=== PATIENT | female | born 1980 | race Caucasian/White ===

== ENCOUNTER → 2017-11-19 11:55 | Outpatient (CLI) | payer MEDICARE, MEDICAID, SELFPAY ==
[2017-11-19 13:03] LABS: INR 3.8 (1.0-3.5); Prothrombin Time 35.4 sec (9.3-10.8)
== END ==
PROVIDERS: PCP Family Medicine; Visit Provider Family Medicine
DX: I82.91 Chronic embolism and thrombosis of unspecified vein (principal); Z79.01 Long term (current) use of anticoagulants
CPT/HCPCS: 36415; 85610

== ENCOUNTER → 2017-12-17 12:27 | Outpatient (CLI) | payer MEDICARE, MEDICAID, SELFPAY ==
[2017-12-17 13:09] LABS: INR 2.9 (1.0-3.5); Prothrombin Time 27.2 sec (9.3-10.8)
== END ==
PROVIDERS: PCP Family Medicine; Visit Provider Family Medicine
DX: I82.91 Chronic embolism and thrombosis of unspecified vein (principal); Z79.01 Long term (current) use of anticoagulants
CPT/HCPCS: 36415; 85610

== ENCOUNTER 2017-12-23 08:49 | Observation (INO) | payer MEDICARE, MEDICAID, SELFPAY ==
[2017-12-23] VITALS (18 sets, daily range): BP systolic 93–164; BP diastolic 52–115; PULSE 47–62; RESP 16–20; TEMP 36.7–38.8; O2SAT 94–100
[2017-12-23] MEDS: Ondansetron 4 MG/2 ML VIAL IVP ×3 (09:44→18:41)
[2017-12-23] MEDS: Normal Saline 1,000 ML 1000 ML IV ×2 (09:44→10:28)
[2017-12-23 09:52] LABS: Abs Immature Grans 0.02 k/cumm (0.0-0.09); Absolute Basophil Count 0.02 k/cumm (0.0-0.2); Absolute Eosinophil Count 0.02 k/cumm (0.0-0.7); Absolute Lymphocyte Count 0.95 k/cumm (1.2-3.4); Absolute Monocyte Count 0.54 k/cumm (0.11-0.7); Basophils % 0.2; Eosinophils % 0.2; HCT 42.2 % (36.0-46.0); HGB 14.6 g/dL (12.0-15.5); Immature Grans % 0.2; Lymphocytes % 8.3; Mean Corp. HGB Concentration 34.6 g/dL (32.0-36.0); Mean Corpuscular Hemoglobin 29.1 pg (27.0-33.0); Mean Corpuscular Volume 84.1 fL (80-95); Monocytes % 4.7; Neutrophils % 86.4; Platelet Count 254 x1000/uL (130-400); RBC 5.02 m/cumm (4.00-5.20); RBC Distribution Width 13.5 % (11.7-14.6); White Blood Cell Count 11.46 k/cumm (4.4-10.8)
[2017-12-23 10:03] LABS: INR 2.4 (1.0-3.5); Prothrombin Time 22.3 sec (9.3-10.8)
[2017-12-23 10:10] LABS: Lipase 140 U/L (73-393)
[2017-12-23 10:13] LABS: ALT 21 U/L (12-78); AST 20 U/L (15-37); Albumin 4.5 g/dL (3.4-5.0); Alkaline Phosphatase 54 U/L (46-116); Anion Gap 6.4 mmol/L (3-11); BUN 8 mg/dL (7-18); Bilirubin, Total 0.6 mg/dL (0.2-1.0); CO2 27.6 mmol/L (21.0-32.0); CREATININE 0.95 mg/dL (0.55-1.02); Calcium 8.7 mg/dL (8.5-10.1); Chloride 104 mmol/L (98-107); Glucose 136 mg/dL (70-100); Potassium 3.6 mmol/L (3.5-5.1); Sodium 138 mmol/L (136-145); Total Protein 7.7 g/dL (6.4-8.2)
--- NOTE | 2017-12-23 10:19 | W.ED.GENAD ---
Discharge Plan Discharge Details Chief Complaint: Nausea/Vomit/Diar Clinical Impression: Intractable nausea and vomiting Reason For Visit: INTRACTABLE NAUSEA AND VOMITING Admit Date/Time: 12/23/17 14:45 Admit Provider: Liliana Ku Attending Provider: Jaya Clarke Primary Care Provider: Jonny Pettit ED Provider: Liliana Ku Disposition Patient Disposition: [facility] INPATIENT Condition: Stable Discharge Data Discharge Date/Time-TO BE ENTERED AT DEPARTURE: 12/23/17 16:05 Medical Decision Making MDM Narrative Medical decision making narrative: 37yo F w/ a h/o daily cannabis use and factor V Leiden on Coumadin, and hysterectomy who presents with vomiting since 2 AM. She has vomited approximately 20 times which is been bile. She states the last time this occurred she was admitted to the ICU for intractable vomiting. She states that she smoked marijuana daily but the last time she did was 2 days ago. She admits to drinking alcohol yesterday but denies any other new medications, recent travel or sick contacts. Patient is sitting up on stretcher with head into vomitus bag retching. Heart rate 47. Afebrile. Oxygen saturation normal. Blood pressure 158/115. Lungs clear to auscultation. Abdomen soft and nontender. Patient stating she will likely need to be admitted for her symptoms. I explained to patient that a trial of fluids, medication and observation would be the recommended initial plan with follow-up on lab results but she states that likely she will not be able to go home. Patient was ordered Zofran on arrival but denies any relief with this. She states that Phenergan usually works for her. We will give a dose of this now and reassess. 12pm --denies any relief with Phenergan. Will order another dose Phenergan and Valium IV. Patient states she does not think her symptoms will improve. Labs reviewed and unremarkable. Will call hospitalist for admission. 1230pm -- Dr. Clarke recommends a trial of zofran, reglan, benadryl and ativan to see if this resolves her symptoms and if not, will admit. Explained that I just gave valium and phenergan and will hold on reglan. Will give zofran and benadryl IV. 1345 -- Pt admits to some relief and nausea but states it is still present and she states she does not feel good to go home. No further vomiting. Will admit patient for intractable nausea. 1435 --discussed with hospitalist -accepts patient for admission. Lab Data Lab Results 12/23/17 12/23/17 Range/Units 09:43 09:43 WBC 11.46 H (4.4-10.8) k/cumm RBC 5.02 (4.00-5.20) m/cumm Hgb 14.6 (12.0-15.5) g/dL Hct 42.2 (36.0-46.0) % MCV 84.1 (80-95) fL MCH 29.1 (27.0-33.0) pg MCHC 34.6 (32.0-36.0) g/dL RDW 13.5 (11.7-14.6) % Plt Count 254 (130-400) x1000/uL MPV 12.0 H (8.0-11.0) fL Immature Gran % 0.2 Neutrophils % 86.4 Lymphocytes % 8.3 Monocytes % 4.7 Eosinophils % 0.2 Basophils % 0.2 Absolute Neutrophils 9.90 H (1.2-6.7) k/cumm Absolute Lymphocytes 0.95 L (1.2-3.4) k/cumm Absolute Monocytes 0.54 (0.11-0.7) k/cumm Absolute Eosinophils 0.02 (0.0-0.7) k/cumm Absolute Basophils 0.02 (0.0-0.2) k/cumm PT 22.3 H (9.3-10.8) sec INR 2.4 (1.0-3.5) HPI - General Adult General Mode of arrival: ambulatory. Date/Time Provider Initiated Documentation: 12/23/17 09:36. Limitations to Documentation: no limitations. Information obtained by: patient. HPI Narrative: Pt is a 37yo F w/ a h/o daily cannabis use for medical purposes, Factor V Leiden on coumadin, and h/o intractable vomiting in past with admission who presents for more than 20 episodes of vomiting since 2 AM this morning. She states she had 2 alcoholic drinks yesterday but states this is not the cause. She denies any other sick contacts or recent travel. States she was last admitted to the ICU for the symptoms 1 year ago. She denies fever, abdominal pain or urinary symptoms. She denies any other new medications. Related Data Home Medications Medication Instructions Recorded Confirmed calcium crb,[id number] 1 ea PO BID tab-cap 11/09/12 12/23/17 [Citracal + Bone Density] Previous Rx's Medication Instructions Recorded inhalational spacing device [Space #1 spacer 05/01/14 Chamber Plus] naloxone [Narcan] 4 mg NS DAILY PRN PRN #2 spray 12/08/16 Allergies Allergy/AdvReac Type Severity Reaction Status Date / Time aripiprazole [From Abilify] Allergy Severe Rash, hives Unverified 12/23/17 09:03 doxycycline Allergy Severe Anaphylaxsi Unverified 12/23/17 09:03 s levetiracetam [From Keppra] Allergy Severe RASH/HIVES Unverified 12/23/17 09:03 sulfamethoxazole Allergy Severe Hives Unverified 12/23/17 09:03 venom-honey bee Allergy Severe unknown Unverified 12/23/17 09:03 Penicillins Allergy Intermediate Skin Rash Unverified 12/23/17 09:03 chlorhexidine Allergy Unknown unknown Unverified 12/23/17 09:03 Sulfa (Sulfonamide Allergy Unverified 12/23/17 09:03 Antibiotics) mold AdvReac Severe Wheezing Unverified 12/23/17 09:03 oxycodone [Oxycodone] AdvReac Severe vomits Unverified 12/23/17 09:03 paroxetine AdvReac Severe Irritability Unverified 12/23/17 09:03 and anger dicloxacillin [Dicloxacillin] AdvReac Mild Nausea Unverified 12/23/17 09:03 gabapentin AdvReac Mild hives Unverified 12/23/17 09:03 verapamil [Verapamil] AdvReac Worsening Unverified 12/23/17 09:03 migraine nuts Allergy Severe Anaphylaxsi Uncoded 12/23/17 09:03 s General Stated Complaint: Nausea/Vomit/Diar RYNE: 3 Review of Systems Constitutional Denies fever(s) and Denies weakness Eyes Patient Denies loss of vision ENT Denies vertigo, Denies dizziness, Denies sore throat and Denies throat swelling Cardiovascular Denies chest pain and Denies dyspnea Respiratory Denies dyspnea Gastrointestinal Denies abdominal pain, Denies diarrhea and Reports vomiting Genitourinary Denies hematuria and Denies dysuria Musculoskeletal Denies arthralgias and Denies joint swelling Neurologic Denies confusion, Denies vertigo, Denies dizziness, Denies loss of vision and Denies weakness Psychiatric Denies confusion Allergic/Immunologic Denies throat swelling PFSH Medical History Intractable vomiting with nausea (Acute) Asthma (Chronic) Chronic anticoagulation (Chronic) Depression (Chronic) Factor V Leiden (Chronic) GERD (gastroesophageal reflux disease) (Chronic) Hypothyroidism (Chronic) Migraine headache (Chronic) Nephrolithiasis (Chronic) Recurrent deep vein thrombosis (DVT) (Chronic) Cellulitis (Resolved) Social History Smoking/Tobacco Use Status: Never Surgical History Abdominal hysterectomy (~2009) Arthroplasty of knee (~1999) Bilateral salpingectomy with oophorectomy (~2008) Cervical Conization/LEEP Cholecystectomy THUMB RECONSTRUCTION Exam Const General: cooperative and in distress (Sitting up on stretcher hanging over vomitus bag. ) moderate Orientation: alert and awake HENMT Head: normal to inspection Mouth: moist mucous membranes Eyes EOM: EOM intact bilaterally Neck Neck: normal visual inspection Resp Effort & Inspection: normal respiratory effort Auscultation: clear to auscultation bilaterally Cardio Rate: regular rate Rhythm: regular rhythm GI Inspection: normal to inspection Palpation: soft and nontender Auscultation: normal bowel sounds Back/Spine/Pelvis Back: No no CVA tenderness Skin General skin exam: no rashes or lesions noted Neuro General: alert and awake Speech: speech normal Extrem General: no edema Course Vital Signs Pulse Oximetry 98 12/23/17 08:51 Temperature 98.4 F 12/23/17 08:54 Pulse 51 L 12/23/17 08:54 Respiratory Rate 18 12/23/17 08:54 Blood Pressure 158/115 H 12/23/17 08:53 Pulse Oximetry 100 12/23/17 10:10 Lab/Test Results Lab/Test Results: Laboratory Tests 12/23/17 12/23/17 09:43 09:43 WBC 11.46 H RBC 5.02 Hgb 14.6 Hct 42.2 MCV 84.1 MCH 29.1 MCHC 34.6 RDW 13.5 Plt Count 254 MPV 12.0 H Immature Gran % 0.2 Neutrophils % 86.4 Lymphocytes % 8.3 Monocytes % 4.7 Eosinophils % 0.2 Basophils % 0.2 Absolute Neutrophils 9.90 H Absolute Lymphocytes 0.95 L Absolute Monocytes 0.54 Absolute Eosinophils 0.02 Absolute Basophils 0.02 PT 22.3 H INR 2.4
--- NOTE | 2017-12-23 10:34 | ED.GENADUL_ITS ---
Discharge Plan Discharge Details Chief Complaint: Nausea/Vomit/Diar Clinical Impression: Intractable nausea and vomiting Reason For Visit: INTRACTABLE NAUSEA AND VOMITING Admit Date/Time: 12/23/17 14:45 Admit Provider: Liliana Ku Attending Provider: Jaya Clarke Primary Care Provider: Jonny Pettit ED Provider: Liliana Ku Disposition Patient Disposition: [facility] INPATIENT Condition: Stable Discharge Data Discharge Date/Time-TO BE ENTERED AT DEPARTURE: 12/23/17 16:05 Medical Decision Making MDM Narrative Medical decision making narrative: 37yo F w/ a h/o daily cannabis use and factor V Leiden on Coumadin, and hysterectomy who presents with vomiting since 2 AM. She has vomited approximately 20 times which is been bile. She states the last time this occurred she was admitted to the ICU for intractable vomiting. She states that she smoked marijuana daily but the last time she did was 2 days ago. She admits to drinking alcohol yesterday but denies any other new medications, recent travel or sick contacts. Patient is sitting up on stretcher with head into vomitus bag retching. Heart rate 47. Afebrile. Oxygen saturation normal. Blood pressure 158/115. Lungs clear to auscultation. Abdomen soft and nontender. Patient stating she will likely need to be admitted for her symptoms. I explained to patient that a trial of fluids, medication and observation would be the recommended initial plan with follow-up on lab results but she states that likely she will not be able to go home. Patient was ordered Zofran on arrival but denies any relief with this. She states that Phenergan usually works for her. We will give a dose of this now and reassess. 12pm --denies any relief with Phenergan. Will order another dose Phenergan and Valium IV. Patient states she does not think her symptoms will improve. Labs reviewed and unremarkable. Will call hospitalist for admission. 1230pm -- Dr. Clarke recommends a trial of zofran, reglan, benadryl and ativan to see if this resolves her symptoms and if not, will admit. Explained that I just gave valium and phenergan and will hold on reglan. Will give zofran and benadryl IV. 1345 -- Pt admits to some relief and nausea but states it is still present and she states she does not feel good to go home. No further vomiting. Will admit patient for intractable nausea. 1435 --discussed with hospitalist -accepts patient for admission. Lab Data Lab Results 12/23/17 12/23/17 Range/Units 09:43 09:43 WBC 11.46 H (4.4-10.8) k/cumm RBC 5.02 (4.00-5.20) m/cumm Hgb 14.6 (12.0-15.5) g/dL Hct 42.2 (36.0-46.0) % MCV 84.1 (80-95) fL MCH 29.1 (27.0-33.0) pg MCHC 34.6 (32.0-36.0) g/dL RDW 13.5 (11.7-14.6) % Plt Count 254 (130-400) x1000/uL MPV 12.0 H (8.0-11.0) fL Immature Gran % 0.2 Neutrophils % 86.4 Lymphocytes % 8.3 Monocytes % 4.7 Eosinophils % 0.2 Basophils % 0.2 Absolute Neutrophils 9.90 H (1.2-6.7) k/cumm Absolute Lymphocytes 0.95 L (1.2-3.4) k/cumm Absolute Monocytes 0.54 (0.11-0.7) k/cumm Absolute Eosinophils 0.02 (0.0-0.7) k/cumm Absolute Basophils 0.02 (0.0-0.2) k/cumm PT 22.3 H (9.3-10.8) sec INR 2.4 (1.0-3.5) HPI - General Adult General Mode of arrival: ambulatory . Date/Time Provider Initiated Documentation: 12/23/17 09:36 . Limitations to Documentation: no limitations . Information obtained by: patient . HPI Narrative: Pt is a 37yo F w/ a h/o daily cannabis use for medical purposes, Factor V Leiden on coumadin, and h/o intractable vomiting in past with admission who presents for more than 20 episodes of vomiting since 2 AM this morning. She states she had 2 alcoholic drinks yesterday but states this is not the cause. She denies any other sick contacts or recent travel. States she was last admitted to the ICU for the symptoms 1 year ago. She denies fever , abdominal pain or urinary symptoms. She denies any other new medications. Related Data Home Medications Medication Instructions Recorded Confirmed calcium crb,[id number] 1 ea PO BID tab-cap 11/09/12 12/23/17 [Citracal + Bone Density] Previous Rx's Medication Instructions Recorded inhalational spacing device [Space #1 spacer 05/01/14 Chamber Plus] naloxone [Narcan] 4 mg NS DAILY PRN PRN #2 spray 12/08/16 Allergies Allergy/AdvReac Type Severity Reaction Status Date / Time aripiprazole [From Abilify] Allergy Severe Rash, hives Unverified 12/23/17 09:03 doxycycline Allergy Severe Anaphylaxsi Unverified 12/23/17 09:03 s levetiracetam [From Keppra] Allergy Severe RASH/HIVES Unverified 12/23/17 09:03 sulfamethoxazole Allergy Severe Hives Unverified 12/23/17 09:03 venom-honey bee Allergy Severe unknown Unverified 12/23/17 09:03 Penicillins Allergy Intermediate Skin Rash Unverified 12/23/17 09:03 chlorhexidine Allergy Unknown unknown Unverified 12/23/17 09:03 Sulfa (Sulfonamide Allergy Unverified 12/23/17 09:03 Antibiotics) mold AdvReac Severe Wheezing Unverified 12/23/17 09:03 oxycodone [Oxycodone] AdvReac Severe vomits Unverified 12/23/17 09:03 paroxetine AdvReac Severe Irritability Unverified 12/23/17 09:03 and anger dicloxacillin [Dicloxacillin] AdvReac Mild Nausea Unverified 12/23/17 09:03 gabapentin AdvReac Mild hives Unverified 12/23/17 09:03 verapamil [Verapamil] AdvReac Worsening Unverified 12/23/17 09:03 migraine nuts Allergy Severe Anaphylaxsi Uncoded 12/23/17 09:03 s General Stated Complaint: Nausea/Vomit/Diar RYNE: 3 Review of Systems Constitutional Denies fever(s) and Denies weakness Eyes Patient Denies loss of vision ENT Denies vertigo, Denies dizziness, Denies sore throat and Denies throat swelling Cardiovascular Denies chest pain and Denies dyspnea Respiratory Denies dyspnea Gastrointestinal Denies abdominal pain, Denies diarrhea and Reports vomiting Genitourinary Denies hematuria and Denies dysuria Musculoskeletal Denies arthralgias and Denies joint swelling Neurologic Denies confusion, Denies vertigo, Denies dizziness, Denies loss of vision and Denies weakness Psychiatric Denies confusion Allergic/Immunologic Denies throat swelling PFSH Medical History Intractable vomiting with nausea (Acute) Asthma (Chronic) Chronic anticoagulation (Chronic) Depression (Chronic) Factor V Leiden (Chronic) GERD (gastroesophageal reflux disease) (Chronic) Hypothyroidism (Chronic) Migraine headache (Chronic) Nephrolithiasis (Chronic) Recurrent deep vein thrombosis (DVT) (Chronic) Cellulitis (Resolved) Social History Smoking/Tobacco Use Status: Never Surgical History Abdominal hysterectomy (~2009) Arthroplasty of knee (~1999) Bilateral salpingectomy with oophorectomy (~2008) Cervical Conization/LEEP Cholecystectomy THUMB RECONSTRUCTION Exam Const General: cooperative and in distress (Sitting up on stretcher hanging over vomitus bag. ) moderate Orientation: alert and awake HENMT Head: normal to inspection Mouth: moist mucous membranes Eyes EOM: EOM intact bilaterally Neck Neck: normal visual inspection Resp Effort & Inspection: normal respiratory effort Auscultation: clear to auscultation bilaterally Cardio Rate: regular rate Rhythm: regular rhythm GI Inspection: normal to inspection Palpation: soft and nontender Auscultation: normal bowel sounds Back/Spine/Pelvis Back: No no CVA tenderness Skin General skin exam: no rashes or lesions noted Neuro General: alert and awake Speech: speech normal Extrem General: no edema Course Vital Signs Pulse Oximetry 98 12/23/17 08:51 Temperature 98.4 F 12/23/17 08:54 Pulse 51 L 12/23/17 08:54 Respiratory Rate 18 12/23/17 08:54 Blood Pressure 158/115 H 12/23/17 08:53 Pulse Oximetry 100 12/23/17 10:10 Lab/Test Results Lab/Test Results: Laboratory Tests 12/23/17 12/23/17 09:43 09:43 WBC 11.46 H RBC 5.02 Hgb 14.6 Hct 42.2 MCV 84.1 MCH 29.1 MCHC 34.6 RDW 13.5 Plt Count 254 MPV 12.0 H Immature Gran % 0.2 Neutrophils % 86.4 Lymphocytes % 8.3 Monocytes % 4.7 Eosinophils % 0.2 Basophils % 0.2 Absolute Neutrophils 9.90 H Absolute Lymphocytes 0.95 L Absolute Monocytes 0.54 Absolute Eosinophils 0.02 Absolute Basophils 0.02 PT 22.3 H INR 2.4
[2017-12-23 11:31] LABS: Bilirubin Negative (Negative); Blood Trace-intact (Negative); Clarity Clear; Glucose Negative (Negative); Ketones 15 mg/dL (Negative); Leukocyte Esterase Negative (Negative); Nitrite Negative (Negative); Urobilinogen 0.2 EU/dL (Up TO 0.2); pH 7.5 (5-8)
[2017-12-23 11:41] LABS: Bacteria Few HPF (Negative); C & S Indicated? No; Casts Negative LPF (Negative); Crystals Negative HPF (Negative); Epithelial Cells Few HPF (Negative); Mucus Negative (Negative); RBC 0-2 (0-2); WBC 0-2 HPF (0-5)
[2017-12-23] MEDS: Normal Saline 1,000 ML 125 ML IV ×2 (12:20→21:21)
[2017-12-23] MEDS: diphenhydrAMINE 50 MG/ML VIAL IVP (12:52)
[2017-12-23] MEDS: FAMOTIDINE 20 MG/50 ML BAG 100 MG IVPB (16:01)
--- NOTE | 2017-12-23 16:35 | W.PM.HP.N ---
Date of service: 12/23/17 Time of Service: 16:35 Assessment and Plan (1) Intractable vomiting with nausea: Current visit: Yes Status: Acute Recurrent bout of intractable nausea and vomiting in 37-year-old woman with a prior medical history of this. Patient appears to have improved symptomatically, with resolution of any retching behavior. She has been sleeping comfortably in the emergency department. Although she continues to complain of diffuse abdominal pain on minimal contact, prolonged auscultation with gently increasing deep palpation of the abdomen both in the upper and lower quadrants produced absolutely no discomfort. Abdominal exam is completely benign. We will maintain patient on IV Benadryl, Ativan, Zofran, and Reglan. Plan is for admission overnight with likely discharge in the morning. (2) Factor V Leiden mutation: Current visit: No Status: Chronic History of factor V Leiden with prior history of recurrent DVTs. Continue anticoagulation with Coumadin, with daily INRs. Current INR appears to be therapeutic. History of Present Illness Chief Complaint: Intractable nausea and vomiting Narrative: 37-year-old woman with a past medical history significant for factor V Leiden with recurrent DVTs, on chronic anticoagulation, as well as prior episodes of intractable nausea and vomiting presents to [facility] emergency department with complaints of nausea and abdominal pain. Ms. carter he reports waking up this morning with ongoing abdominal pain, with concurrent nausea and vomiting. Her workup in the emergency department was fairly unremarkable, and she was administered a combination of Phenergan, Zofran, and a benzodiazepine without effect. Following discussion with the emergency room attending the patient was also administered Benadryl, an additional 4 mg of Zofran, and Reglan, with resolution of symptoms clinically. However at time of exam the patient is still complaining of abdominal pain and nausea. She is referred for admission for further evaluation and treatment Review of Systems Review of Systems All systems reviewed & are unremarkable except as noted in HPI and below PFSH Social History Smoking/Tobacco Use Status: Never Surgical History Abdominal hysterectomy (~2009) Arthroplasty of knee (~1999) Bilateral salpingectomy with oophorectomy (~2008) Cervical Conization/LEEP Cholecystectomy THUMB RECONSTRUCTION Meds Home Medications Medication Instructions Recorded Confirmed Type calcium crb,[id number] 1 ea PO BID tab-cap 11/09/12 12/23/17 History [Citracal + Bone Density] albuterol sulfate 1 amp INHALATION PRN #1 box 04/27/15 12/23/17 Clinic cyproheptadine 4 mg PO HS #90 tab-cap 06/04/16 12/23/17 Clinic levothyroxine [Synthroid] 100 mcg PO QPM #90 tab 10/16/16 12/23/17 Clinic topiramate [Topamax] 2 tab PO HS #180 tab 12/17/16 12/23/17 Clinic albuterol sulfate [Proair Hfa] 2 puff INHALATION Q6H PRN #3 01/23/17 12/23/17 Clinic inhaler MDD 6 puffs fluticasone [Flovent 220mcg] 2 inh INHALATION BID #3 inhaler 01/23/17 12/23/17 Clinic ipratropium-albuterol 3 ml INHALATION Q4H PRN PRN #1 box 01/23/17 12/23/17 Clinic MDD 6 times omeprazole 40 mg PO DAILY PRN #90 cap 07/28/17 12/23/17 Clinic metoclopramide HCl 10 mg IM ONCE #1 ml 08/05/17 Clinic fexofenadine 180 mg PO DAILY #90 tab-cap 08/10/17 12/23/17 Clinic clonazepam 1 mg PO TID #90 tab-cap 08/17/17 12/23/17 Clinic sumatriptan succinate 6 mg SQ As directed #8 pen 09/08/17 12/23/17 Clinic epinephrine [Epipen 2-Nino] 0.3 mg IM ONCE #1 ea 09/17/17 12/23/17 Clinic clotrimazole-betamethasone 0 TOPICAL BID #45 g 09/21/17 Clinic [Lotrisone Cream] warfarin [Coumadin] 0 - 10 mg PO HS PRN 90 Days #100 10/06/17 12/23/17 Clinic tab-cap ketorolac 1 drp OPHTHALMIC QID PRN #5 ml 10/08/17 12/23/17 Clinic triamcinolone acetonide 0 gm TOPICAL BID PRN #60 g 10/16/17 Clinic methylphenidate HCl 20 mg PO TID #84 tab-cap 11/09/17 12/23/17 Clinic ondansetron 4 mg PO Q8H PRN PRN 4 Days #12 11/11/17 12/23/17 Clinic tabef vqaomcyksh-fqyfcclqvsgwa-ywwm 1 tab-cap PO Q6H PRN #30 tab-cap 12/01/17 12/23/17 Clinic hydrocodone-acetaminophen 1 tab-cap PO TID PRN #79 tab-cap 12/01/17 12/23/17 Clinic Allergies Allergy/AdvReac Type Severity Reaction Status Date / Time aripiprazole [From Abilify] Allergy Severe Rash, hives Unverified 12/23/17 09:03 doxycycline Allergy Severe Anaphylaxsi Unverified 12/23/17 09:03 s levetiracetam [From Keppra] Allergy Severe RASH/HIVES Unverified 12/23/17 09:03 sulfamethoxazole Allergy Severe Hives Unverified 12/23/17 09:03 venom-honey bee Allergy Severe unknown Unverified 12/23/17 09:03 Penicillins Allergy Intermediate Skin Rash Unverified 12/23/17 09:03 chlorhexidine Allergy Unknown unknown Unverified 12/23/17 09:03 Sulfa (Sulfonamide Allergy Unverified 12/23/17 09:03 Antibiotics) mold AdvReac Severe Wheezing Unverified 12/23/17 09:03 oxycodone [Oxycodone] AdvReac Severe vomits Unverified 12/23/17 09:03 paroxetine AdvReac Severe Irritability Unverified 12/23/17 09:03 and anger dicloxacillin [Dicloxacillin] AdvReac Mild Nausea Unverified 12/23/17 09:03 gabapentin AdvReac Mild hives Unverified 12/23/17 09:03 verapamil [Verapamil] AdvReac Worsening Unverified 12/23/17 09:03 migraine nuts Allergy Severe Anaphylaxsi Uncoded 12/23/17 09:03 s Exam Const General: cooperative, comfortable and no acute distress Neck Neck: supple and nontender Resp Effort & Inspection: normal respiratory effort Auscultation: clear to auscultation bilaterally Cardio Rate: regular rate Heart Sounds: S1 normal and S2 normal GI Palpation: soft, not firm, no guarding, not rigid and tender (Reported subjective tenderness diffusely) Auscultation: normal bowel sounds Rectal Exam - female: visual inspection normal Extrem General: normal to inspection and no edema Results Labs : 12/23/17 09:43 12/23/17 09:43 Abnormal lab results 12/23/17 12/23/17 12/23/17 Range/Units 09:43 09:43 09:43 WBC 11.46 H (4.4-10.8) k/cumm MPV 12.0 H (8.0-11.0) fL Absolute Neutrophils 9.90 H (1.2-6.7) k/cumm Absolute Lymphocytes 0.95 L (1.2-3.4) k/cumm PT 22.3 H (9.3-10.8) sec Glucose 136 H (70-100) mg/dL Urine Ketones (Negative) mg/dL Urine Blood (Negative) 12/23/17 Range/Units 11:16 WBC (4.4-10.8) k/cumm MPV (8.0-11.0) fL Absolute Neutrophils (1.2-6.7) k/cumm Absolute Lymphocytes (1.2-3.4) k/cumm PT (9.3-10.8) sec Glucose (70-100) mg/dL Urine Ketones 15 H (Negative) mg/dL Urine Blood Trace-intact H (Negative) Diabetes panel 12/23/17 Range/Units 09:43 Sodium 138 (136-145) mmol/L Potassium 3.6 (3.5-5.1) mmol/L Chloride 104 (98-107) mmol/L Carbon Dioxide 27.6 (21.0-32.0) mmol/L BUN 8 (7-18) mg/dL Creatinine 0.95 (0.55-1.02) mg/dL Glucose 136 H (70-100) mg/dL Calcium 8.7 (8.5-10.1) mg/dL AST 20 (15-37) U/L ALT 21 (12-78) U/L Alkaline Phosphatase 54 (46-116) U/L Total Protein 7.7 (6.4-8.2) g/dL Albumin 4.5 (3.4-5.0) g/dL Calcium panel 12/23/17 Range/Units 09:43 Calcium 8.7 (8.5-10.1) mg/dL Albumin 4.5 (3.4-5.0) g/dL Pituitary panel 12/23/17 Range/Units 09:43 Sodium 138 (136-145) mmol/L Potassium 3.6 (3.5-5.1) mmol/L Chloride 104 (98-107) mmol/L Carbon Dioxide 27.6 (21.0-32.0) mmol/L BUN 8 (7-18) mg/dL Creatinine 0.95 (0.55-1.02) mg/dL Glucose 136 H (70-100) mg/dL Calcium 8.7 (8.5-10.1) mg/dL Adrenal panel 12/23/17 Range/Units 09:43 Sodium 138 (136-145) mmol/L Potassium 3.6 (3.5-5.1) mmol/L Chloride 104 (98-107) mmol/L Carbon Dioxide 27.6 (21.0-32.0) mmol/L BUN 8 (7-18) mg/dL Creatinine 0.95 (0.55-1.02) mg/dL Glucose 136 H (70-100) mg/dL Calcium 8.7 (8.5-10.1) mg/dL Total Bilirubin 0.6 (0.2-1.0) mg/dL AST 20 (15-37) U/L ALT 21 (12-78) U/L Alkaline Phosphatase 54 (46-116) U/L Total Protein 7.7 (6.4-8.2) g/dL Albumin 4.5 (3.4-5.0) g/dL Laboratory Tests 12/23/17 12/23/17 12/23/17 09:43 09:43 09:43 WBC 11.46 H RBC 5.02 Hgb 14.6 Hct 42.2 MCV 84.1 MCH 29.1 MCHC 34.6 RDW 13.5 Plt Count 254 MPV 12.0 H Immature Gran % 0.2 Neutrophils % 86.4 Lymphocytes % 8.3 Monocytes % 4.7 Eosinophils % 0.2 Basophils % 0.2 Absolute Neutrophils 9.90 H Absolute Lymphocytes 0.95 L Absolute Monocytes 0.54 Absolute Eosinophils 0.02 Absolute Basophils 0.02 PT 22.3 H INR 2.4 Sodium 138 Potassium 3.6 Chloride 104 Carbon Dioxide 27.6 Anion Gap 6.4 BUN 8 Creatinine 0.95 Estimated GFR/1.73 m2 >= 60.00 Glucose 136 H Calcium 8.7 Total Bilirubin 0.6 AST 20 ALT 21 Alkaline Phosphatase 54 Total Protein 7.7 Albumin 4.5 Lipase Urine Color Urine Clarity Urine pH Ur Specific [place] Urine Protein Urine Ketones Urine Blood Urine Nitrite Urine Bilirubin Urine Urobilinogen Ur Leukocyte Esterase Urine RBC Urine WBC Ur Epithelial Cells Urine Crystals Urine Bacteria Urine Casts Urine Mucus Ur Culture Indicated? Urine Glucose 12/23/17 12/23/17 09:43 11:16 WBC RBC Hgb Hct MCV MCH MCHC RDW Plt Count MPV Immature Gran % Neutrophils % Lymphocytes % Monocytes % Eosinophils % Basophils % Absolute Neutrophils Absolute Lymphocytes Absolute Monocytes Absolute Eosinophils Absolute Basophils PT INR Sodium Potassium Chloride Carbon Dioxide Anion Gap BUN Creatinine Estimated GFR/1.73 m2 Glucose Calcium Total Bilirubin AST ALT Alkaline Phosphatase Total Protein Albumin Lipase 140 Urine Color Yellow Urine Clarity Clear Urine pH 7.5 Ur Specific [place] 1.020 Urine Protein Negative Urine Ketones 15 H Urine Blood Trace-intact H Urine Nitrite Negative Urine Bilirubin Negative Urine Urobilinogen 0.2 Ur Leukocyte Esterase Negative Urine RBC 0-2 Urine WBC 0-2 Ur Epithelial Cells Few Urine Crystals Negative Urine Bacteria Few Urine Casts Negative Urine Mucus Negative Ur Culture Indicated? No Urine Glucose Negative
[2017-12-23] MEDS: Metoclopramide 10 MG/2 ML VIAL IVP (17:33)
[2017-12-23] MEDS: Normal Saline Flush 10 ML SYR IVP ×3 (17:35→22:37)
[2017-12-23] MEDS: diphenhydrAMINE 50 MG/ML VIAL 25 MG IVP (17:38)
--- NOTE | 2017-12-23 18:05 | DI.CT_ITS ---
SYMPTOMS/DIAGNOSIS: ABD PAIN, FEVER CT OF THE ABDOMEN AND PELVIS: Comparison is made with [id number]. Images were performed from the lung bases through the ischial tuberosities after IV and without oral contrast. The appendix is well seen and projects inferiorly and laterally to the base of the cecum to the level of the iliac crest. There is some air within the appendix which does not appear abnormally dilated. There is a question of slight stranding around the appendix. The colon is mostly decompressed with the exception of the ascending colon and rectum. No inflammatory changes are seen. The small bowel is unremarkable. No free air or free fluid is seen. There is a small hiatal hernia. The lung bases are clear. The heart size is normal. The liver shows an area of focal fat in the left lobe. The patient is status post cholecystectomy. No biliary dilatation is seen. The spleen, pancreas, adrenals and kidneys are unremarkable. The patient is status post hysterectomy. The urinary bladder is empty. The ovaries are unremarkable. The aorta is normal in diameter. IMPRESSION: Question of minimal stranding in the mesentery or around the appendix which could indicate early appendicitis. Clinical correlation is recommended.
[2017-12-23] MEDS: Omnipaque 350 MG/ML 100 ML BTL IV (20:19)
[2017-12-23] MEDS: Breeza Beverage 473 ML BTL PO ×2 (20:20→20:21)
[2017-12-23] MEDS: Omnipaque 350 MG/ML 50 ML BTL PO (20:21)
[2017-12-23] MEDS: LORazepam 2 MG/ML VIAL 1 MG IVP (20:49)
[2017-12-23] MEDS: ACETAMINOPHEN 1,000 MG/100 ML BTL 400 MG IVPB (20:53)
[2017-12-23] MEDS: Cyproheptadine 4 MG TAB PO (21:02)
[2017-12-23] MEDS: Levothyroxine 100 MCG TAB PO (21:02)
--- NOTE | 2017-12-23 21:03 | DI.VRAD_ITS ---
EXAM: CT Abdomen and Pelvis With Intravenous Contrast EXAM DATE/TIME: 12/23/2017 6:07 PM CLINICAL HISTORY: 37 years old, female; Signs and symptoms; Other: Abd pain; Fever TECHNIQUE: Axial computed tomography images of the abdomen and pelvis with intravenous contrast. Coronal and sagittal reformatted images were created and reviewed. CONTRAST: 96 ml of omnipaque 350 administered intravenously. COMPARISON: CT - ABD PELVIS WO CONTRAST 07/28/2016 11:16 PM FINDINGS: Lower thorax: Edematous mucosal wall thickening is seen within the lower esophagus at the esophagogastric junction thought likely consistent with some reflux esophagitis. ABDOMEN: Liver: Normal. No mass. Gallbladder and bile ducts: There has been prior cholecystectomy. Pancreas: Normal. No ductal dilation. Spleen: Normal. No splenomegaly. Adrenals: Normal. No mass. Kidneys and ureters: Normal. No hydronephrosis. Stomach and bowel: There is also questionable subtle mucosal edematous thickening of the leone of a decompressed lower ascending colon. The possibility of some lower ascending colitis should be considered. Appendix: See Intraperitoneal Space Finding. PELVIS: Bladder: Unremarkable as visualized. Reproductive: A 1.5 x 1.1 cm left ovarian cyst is identified ABDOMEN and PELVIS: Intraperitoneal space: There is subtle but diffuse mesenteric haziness (joel mesentery) which may indicate mesenteritis. However, the findings appear slightly asymmetrically more pronounced in the right lower quadrant; and therefore, some early acute appendicitis should be considered. No appendiceal dilatation is detected. In fact, acute appendicitis can be a cause of joel mesentery. Bones/joints: Minimal marginal osteophytic spurring is present throughout the lumbar vertebrae. Soft tissues: Unremarkable. Vasculature: Minor atherosclerotic vascular plaquing is present. Lymph nodes: Normal. No enlarged lymph nodes. IMPRESSION: 1. Subtle joel mesentery is identified with slight asymmetrical prominence in the right lower quadrant. This finding could indicate nonspecific mesenteritis; however, because of its asymmetrical appearance in the right lower quadrant, the possibility of acute appendicitis must be considered. 2. Possible subtle mucosal edematous thickening of the loene of the lower ascending colon; may indicate some lower ascending colitis. 3. Findings suggestive of some component of reflux esophagitis. Dictated and Authenticated by: Hai Peralta MD. Ordering:VINCENT BROWN MD
--- NOTE | 2017-12-23 21:13 | NUR.NOTE ---
Nursing Note: This patient took 2 sips of the oral contrast for her CT exam stated that it tasted awful and would not drink any more
[2017-12-23] MEDS: HYDROmorphone 2 MG/ML VIAL 0.5 MG IVP (22:37)
[2017-12-23] MEDS: MetroNIDAZOLE 500 MG/100 ML BAG 100 MG IVPB (22:41)
[2017-12-24] VITALS (15 sets, daily range): BP systolic 100–160; BP diastolic 63–90; PULSE 46–77; RESP 12–18; TEMP 36.4–37.3; O2SAT 95–100
[2017-12-24] MEDS: Normal Saline 500 ML 100 ML IV
[2017-12-24] MEDS: Normal Saline 500 ML 200 ML IV (00:42)
--- NOTE | 2017-12-24 00:48 | SCONE_ITS ---
Date of service: 12/23/17 Time of Service: 20:30 History of Present Illness Chief Complaint: RLQ abdominal pain Narrative: 37-year-old female who presented to the emergency room with less than 24 hours of nausea and vomiting that started fairly abruptly. She has had no sick contacts nor traveled recently. She has tried no new foods or eaten at any restaurants. She reports vomiting approximately 20 times before presentation to the emergency room. Her vomiting improved after presentation to the emergency room she has also had associated abdominal pain which she relates that the right lower quadrant abdominal pain that appears to be nonradiating. She had a similar presentation almost a year ago. She was admitted by medicine for observation antiemetics and fluid resuscitation. A subsequent CT obtained of the abdomen and pelvis had findings suggestive of possible enteritis possible colitis, possible appendicitis. Surgery was consulted to evaluate Consults Consult date: 12/23/17 Requesting physician: Selvin Mendoza Assessment and Plan (1) Right lower quadrant abdominal pain: Start date: 12/23/17 Current visit: Yes Status: Acute 37-year-old female with intractable vomiting nausea, and abdominal pain. Physical findings suggestive of appendicitis, and this is supported by CT imaging of abdomen and pelvis which suggest early inflammatory process. She is also been having fevers after presentation to the emergency room. Given her physical exam findings along with laboratory and radiology findings, I recommended that she have a diagnostic laparoscopy to rule out appendicitis, or confirm enteritis versus colitis. The risks and benefits of surgery have been discussed with her. All her questions were answered her satisfaction consent was obtained to proceed. She does have factor V Leyden factor and is currently anticoagulated on Coumadin, will reverse this with FFP to get her below 2 then perform diagnostic laparoscopy. Review of Systems Constitutional Reports anorexia, Denies fever(s) and Reports malaise Eyes Patient Denies blurry vision, Denies change in vision, Denies diplopia, Reports itchy eyes, Denies loss of vision, Denies other visual disturbances and Denies photophobia ENT Denies vertigo, Denies dizziness, Denies hoarseness, Denies epistaxis and Denies tinnitus Cardiovascular Denies chest pain at rest, Denies chest pain with activity, Denies rapid heart rate, Denies lightheadedness, Denies palpitations and Denies dyspnea Respiratory Denies chest congestion, Denies cough, Denies dyspnea and Denies wheezing Gastrointestinal Reports abdominal pain, Denies melena, Denies change in bowel habits, Denies constipation, Denies heartburn, Denies diarrhea, Denies loose stools, Reports nausea and Reports vomiting Genitourinary Denies dysuria, Denies urinary hesitancy and Denies urinary urgency Musculoskeletal Reports system reviewed and no additional complaints, except as docu and Reports myalgias Neurologic Reports system reviewed and no additional complaints, except as docu, Denies vertigo, Denies dizziness and Denies loss of vision Psychiatric Reports system reviewed and no additional complaints, except as docu Endocrine Denies palpitations Allergic/Immunologic Reports urticaria, Reports itchy eyes and Denies wheezing PFSH Medical History Intractable vomiting with nausea (Acute) Asthma (Chronic) Chronic anticoagulation (Chronic) Depression (Chronic) Factor V Leiden (Chronic) GERD (gastroesophageal reflux disease) (Chronic) Hypothyroidism (Chronic) Migraine headache (Chronic) Nephrolithiasis (Chronic) Recurrent deep vein thrombosis (DVT) (Chronic) Cellulitis (Resolved) Social History Smoking/Tobacco Use Status: Never Surgical History Abdominal hysterectomy (~2009) Arthroplasty of knee (~1999) Bilateral salpingectomy with oophorectomy (~2008) Cervical Conization/LEEP Cholecystectomy THUMB RECONSTRUCTION Exam Const General: cooperative, acute distress mild and ill appearing Nutritional Appearance: average body habitus Orientation: awake and oriented x3 HENMT Head: normal to inspection Ears: hearing grossly normal bilaterally and external ears normal General nose exam: external nose normal Face and sinus: normal facial exam Eyes General: appearance normal, both eyes and all related structures Alignment and Position: alignment normal Periorbital: periorbital findings normal Eyelids: eyelids normal Conjunctivae: conjunctivae normal Sclera: sclerae normal Pupils: PERRL EOM: EOM intact bilaterally Neck Neck: normal visual inspection, trachea midline and supple Chest Chest: normal inspection of the chest Resp Effort & Inspection: normal respiratory effort and not labored Auscultation: no wheezes Cardio Rate: regular rate Rhythm: regular rhythm Pulses: normal peripheral pulses GI Palpation: guarding and tender in the RLQ and with rebound tenderness Back/Spine/Pelvis Back: no CVA tenderness Skin General skin exam: turgor normal Lesions: no lesions Rashes: no rashes Hair: normal Neuro General: awake, oriented x3 and CN's II-XI intact bilaterally Cranial Nerves: EOM intact bilaterally Cognition: normal cognition Extrem General: normal capillary refill and no clubbing, cyanosis or edema Psych Appearance: grossly normal and well kempt Mental Status: mental status grossly normal Attitude: cooperative Judgment: judgment good Results Labs : 12/23/17 09:43 12/23/17 09:43 Abnormal lab results 12/23/17 12/23/17 12/23/17 Range/Units 09:43 09:43 09:43 WBC 11.46 H (4.4-10.8) k/cumm MPV 12.0 H (8.0-11.0) fL Absolute Neutrophils 9.90 H (1.2-6.7) k/cumm Absolute Lymphocytes 0.95 L (1.2-3.4) k/cumm PT 22.3 H (9.3-10.8) sec Glucose 136 H (70-100) mg/dL Urine Ketones (Negative) mg/dL Urine Blood (Negative) 12/23/17 Range/Units 11:16 WBC (4.4-10.8) k/cumm MPV (8.0-11.0) fL Absolute Neutrophils (1.2-6.7) k/cumm Absolute Lymphocytes (1.2-3.4) k/cumm PT (9.3-10.8) sec Glucose (70-100) mg/dL Urine Ketones 15 H (Negative) mg/dL Urine Blood Trace-intact H (Negative) Diabetes panel 12/23/17 Range/Units 09:43 Sodium 138 (136-145) mmol/L Potassium 3.6 (3.5-5.1) mmol/L Chloride 104 (98-107) mmol/L Carbon Dioxide 27.6 (21.0-32.0) mmol/L BUN 8 (7-18) mg/dL Creatinine 0.95 (0.55-1.02) mg/dL Glucose 136 H (70-100) mg/dL Calcium 8.7 (8.5-10.1) mg/dL AST 20 (15-37) U/L ALT 21 (12-78) U/L Alkaline Phosphatase 54 (46-116) U/L Total Protein 7.7 (6.4-8.2) g/dL Albumin 4.5 (3.4-5.0) g/dL Calcium panel 12/23/17 Range/Units 09:43 Calcium 8.7 (8.5-10.1) mg/dL Albumin 4.5 (3.4-5.0) g/dL Pituitary panel 12/23/17 Range/Units 09:43 Sodium 138 (136-145) mmol/L Potassium 3.6 (3.5-5.1) mmol/L Chloride 104 (98-107) mmol/L Carbon Dioxide 27.6 (21.0-32.0) mmol/L BUN 8 (7-18) mg/dL Creatinine 0.95 (0.55-1.02) mg/dL Glucose 136 H (70-100) mg/dL Calcium 8.7 (8.5-10.1) mg/dL Adrenal panel 12/23/17 Range/Units 09:43 Sodium 138 (136-145) mmol/L Potassium 3.6 (3.5-5.1) mmol/L Chloride 104 (98-107) mmol/L Carbon Dioxide 27.6 (21.0-32.0) mmol/L BUN 8 (7-18) mg/dL Creatinine 0.95 (0.55-1.02) mg/dL Glucose 136 H (70-100) mg/dL Calcium 8.7 (8.5-10.1) mg/dL Total Bilirubin 0.6 (0.2-1.0) mg/dL AST 20 (15-37) U/L ALT 21 (12-78) U/L Alkaline Phosphatase 54 (46-116) U/L Total Protein 7.7 (6.4-8.2) g/dL Albumin 4.5 (3.4-5.0) g/dL Laboratory Tests 12/23/17 12/23/17 12/23/17 09:43 09:43 09:43 WBC 11.46 H RBC 5.02 Hgb 14.6 Hct 42.2 MCV 84.1 MCH 29.1 MCHC 34.6 RDW 13.5 Plt Count 254 MPV 12.0 H Immature Gran % 0.2 Neutrophils % 86.4 Lymphocytes % 8.3 Monocytes % 4.7 Eosinophils % 0.2 Basophils % 0.2 Absolute Neutrophils 9.90 H Absolute Lymphocytes 0.95 L Absolute Monocytes 0.54 Absolute Eosinophils 0.02 Absolute Basophils 0.02 PT 22.3 H INR 2.4 Sodium 138 Potassium 3.6 Chloride 104 Carbon Dioxide 27.6 Anion Gap 6.4 BUN 8 Creatinine 0.95 Estimated GFR/1.73 m2 >= 60.00 Glucose 136 H Calcium 8.7 Total Bilirubin 0.6 AST 20 ALT 21 Alkaline Phosphatase 54 Total Protein 7.7 Albumin 4.5 Lipase Urine Color Urine Clarity Urine pH Ur Specific [place] Urine Protein Urine Ketones Urine Blood Urine Nitrite Urine Bilirubin Urine Urobilinogen Ur Leukocyte Esterase Urine RBC Urine WBC Ur Epithelial Cells Urine Crystals Urine Bacteria Urine Casts Urine Mucus Ur Culture Indicated? Urine Glucose Patient ABO/Rh Antibody Screen 12/23/17 12/23/17 12/23/17 09:43 11:16 22:04 WBC RBC Hgb Hct MCV MCH MCHC RDW Plt Count MPV Immature Gran % Neutrophils % Lymphocytes % Monocytes % Eosinophils % Basophils % Absolute Neutrophils Absolute Lymphocytes Absolute Monocytes Absolute Eosinophils Absolute Basophils PT INR Sodium Potassium Chloride Carbon Dioxide Anion Gap BUN Creatinine Estimated GFR/1.73 m2 Glucose Calcium Total Bilirubin AST ALT Alkaline Phosphatase Total Protein Albumin Lipase 140 Urine Color Yellow Urine Clarity Clear Urine pH 7.5 Ur Specific [place] 1.020 Urine Protein Negative Urine Ketones 15 H Urine Blood Trace-intact H Urine Nitrite Negative Urine Bilirubin Negative Urine Urobilinogen 0.2 Ur Leukocyte Esterase Negative Urine RBC 0-2 Urine WBC 0-2 Ur Epithelial Cells Few Urine Crystals Negative Urine Bacteria Few Urine Casts Negative Urine Mucus Negative Ur Culture Indicated? No Urine Glucose Negative Patient ABO/Rh AB Positive Antibody Screen Negative 12/23/17 22:11 WBC RBC Hgb Hct MCV MCH MCHC RDW Plt Count MPV Immature Gran % Neutrophils % Lymphocytes % Monocytes % Eosinophils % Basophils % Absolute Neutrophils Absolute Lymphocytes Absolute Monocytes Absolute Eosinophils Absolute Basophils PT INR Sodium Potassium Chloride Carbon Dioxide Anion Gap BUN Creatinine Estimated GFR/1.73 m2 Glucose Calcium Total Bilirubin AST ALT Alkaline Phosphatase Total Protein Albumin Lipase Urine Color Urine Clarity Urine pH Ur Specific [place] Urine Protein Urine Ketones Urine Blood Urine Nitrite Urine Bilirubin Urine Urobilinogen Ur Leukocyte Esterase Urine RBC Urine WBC Ur Epithelial Cells Urine Crystals Urine Bacteria Urine Casts Urine Mucus Ur Culture Indicated? Urine Glucose Patient ABO/Rh Cancelled Antibody Screen Imaging Abdomen CT scan report/results: report reviewed and image reviewed CT scan - pelvis: report reviewed and image reviewed
[2017-12-24] MEDS: Normal Saline Flush 10 ML SYR IVP ×8 (00:59→17:49)
[2017-12-24] MEDS: ACETAMINOPHEN 1,000 MG/100 ML BTL 400 MG IVPB ×4 (02:03→20:37)
[2017-12-24] MEDS: Lactated Ringers 1,000 ML 80 ML IV (02:23)
[2017-12-24] MEDS: Lidocaine 1% Pres-Free 5 ML VIAL 10 ML (03:10)
--- NOTE | 2017-12-24 03:44 | APP_PTH ---
PATIENT: Suzie Parsons LOC: U#:[id number] AGE/SX: 37/F ROOM: RE12/23/[address]: Jaya Clarke : 1980 BED: A DIS: 12/25/2017 SPEC #: [id number] RECD: 12/24/17 12:54 STATUS: KERON REQ #: [id number] CELINA: 12/24/17 03:[address]: Jaya Clarke DEPT: Surgical Specimen RECD BY: Kalie Lincoln ENTERED: 12/24/17 12:56 SP TYPE: Appendix OTHR DR: Liliana Ku MD Tissues: 1 - APPENDIX NOT INCIDENTAL 2 - OVARY BIOPSY Procedures: GROSS AND MICRO LEVEL 3 Comments: [id number]
--- NOTE | 2017-12-24 04:19 | ROE_ITS ---
Date of service: 12/24/17 Time of Service: 04:05 Operative Note Date of procedure: 12/24/17 Pre-op diagnosis: RLQ abdominal pain Post-op diagnosis: other (Ruptured fallopian cyst, RLQ abdominal pain) Procedure: Diagnostic Laparoscopy Laparoscopic excision right fallopian tube remnant Laparoscopic Appendectomy Surgeon: Nic Veliz Timber Harvester Operator: Huber Samuel Anesthesia: GETA (SERGIO Theodore Chang, ASA 3E Mallampati class II; local: 1% lidocaine mixed with 0.5% Marcaine with epinephrine) Estimated blood loss (mL): 10 Pathology: other (1. Appendix 2. Fallopian tube remnant, right) Complications: None Patient was transported to: PACU Patient's condition: stable Indications: 37-year-old female presenting to the emergency room with less than 24 hours of sudden onset abdominal pain, nausea, vomiting. Pain was localized to right lower quadrant progressively worsening. She had intractable vomiting with over 20 bouts of emesis prior to her presentation to the emergency room her nausea and vomiting was brought under control with antiemetics, and her pain improved. CT of the abdomen and pelvis showed question of mesenteric subtle inflammation questioning appendicitis versus enteritis versus colitis. Surgery was consulted for evaluation. Given her diagnostic findings and physical examination with rebound tenderness the right lower quadrant, along with new onset of fevers it was recommended that she have a diagnostic laparoscopy possible appendectomy. The procedure was reviewed with her the risks discussed, all her questions were answered to her satisfaction Findings: In examining the pelvis and lower right quadrant of the abdomen, the appendix was identified. It did look distended but not overly injected. It was subsequently removed. Note was also made of a fallopian tube remnant attached to the right ovary. This appeared almost ischemic with a dark purple- red color there is noted made of a small cyst on this and possibly a remnant of a ruptured cyst the area around it slightly erythematous. This was most likely the etiology of her sudden onset of pain ruptured cyst which can mimic appendicitis. The remnant fallopian tube was subsequently removed and sent for pathology along with the appendix. Procedure Description: Patient was brought to the preanesthesia staging area her identification was confirmed consent signed. She was then brought to the operating room positioned supine. All bony prominences were padded. Her left arm was tucked in her right arm extended 90?. Sequential compression devices were placed to bilateral lower extremities prior to induction of anesthesia. She also received 1 g of ertapenem and 500 mg of Flagyl preoperatively. An endotracheal tube was then placed by the [employer]IPPING [employer] RECEIVING LEAD once adequate sedation was confirmed a Chamberlain catheter was inserted into the bladder. Appropriate timeout was then taken to identify the patient's identification, allergies, medications , fire risk, and procedure. I began by making a linear transverse incision supraumbilically the linea alba was grasped and elevated a Veress needle was inserted in the abdomen and attempted to insufflate to 15 mmHg the needle appeared even though I had done a saline drop test prior to insufflating. The insufflation needle appeared to be in the wrong space and had high pressures. I made one attempt to reposition the needle was still unsuccessful. I then placed a stab wound in the left upper quadrant advanced Veress needle into the abdomen listening fairly appropriate on it clicks than checking the position of the saline drop test. I then the insufflated the abdomen to 15 mm or mercury without apparent incident.. I had tried to go through the supraumbilical skin incision with the direct visualization through my 5 mm VersaPort though he still was unable to identify the correct space so as to allow the abdomen insufflated. That is when he turned to the left upper quadrant incision in the midclavicular line. With the abdomen insufflated to 15 mmHg I was able to advance the 5 mm trocar under direct direct visualization into the abdomen without difficulty. I inspected the abdomen 360? saw no acute pathology and entry. I then placed a second 5 mm trocar in the left lower quadrant at the intersection of the anterior superior iliac spine in left-sided midclavicular line. With this in place was able to manipulate the base of the cecum after following the tenia down to this I easily identified the appendix. The appendix appeared to be dilated from approximately just past the junction with the cecum more than normal. The appendix did not appear injected or suppurative. Given its increased diameter I did subsequently remove the appendix. To remove the appendix I placed a 12 m trocar 2 cm suprapubically in the midline. This allowed me to elevate the appendix and subsequently create a window in the base the mesoappendix adjacent to the junction of the appendix and the cecum I then used the harmonic scalpel to divide the mesoappendix starting laterally and working towards the window. Once I had the mesoappendix completely divided. I used a Endo JO-ANN stapler with a 45 mm long staple load of vascular vanessa, divide the appendix. The appendix was then removed through the 12 mm trocar port. The patient had been placed in a steep Trendelenburg left side down to give more space for manipulating the bowel and performing the stapling. I then inspected the mesial appendiceal stump and appendiceal stump there was no apparent bleeding. I did see the right ovary with a small remnant of the fallopian tube. The fallopian tube appeared erythematous, ischemic looking. I also noted a small cyst on the fallopian tube. I did subsequently remove the fallopian tube by dividing its attachments using Harmonic scalpel there is no evidence of bleeding. The fallopian tube remnant was then passed off for pathology to review. I desufflated the abdomen watching my withdrawal under direct visualization. All skin incisions were closed using 4-0 Vicryl suture in a subcuticular local was infiltrated around all incisions. Mastisol Steri- Strips and dry sterile dressings were applied to the wounds. All counts were reported as correct ?2. Ms. carter he was then extubated in the operating room and brought to the postanesthesia care unit in good condition.
[2017-12-24 07:33] LABS: Anion Gap 7.2 mmol/L (3-11); BUN 9 mg/dL (7-18); CO2 24.8 mmol/L (21.0-32.0); CREATININE 0.94 mg/dL (0.55-1.02); Calcium 7.5 mg/dL (8.5-10.1); Chloride 104 mmol/L (98-107); Glucose 96 mg/dL (70-100); Magnesium 1.5 mg/dL (1.8-2.4); Potassium 3.5 mmol/L (3.5-5.1); Sodium 136 mmol/L (136-145)
[2017-12-24 07:34] LABS: INR 2.4 (1.0-3.5); Prothrombin Time 22.6 sec (9.3-10.8)
[2017-12-24] MEDS: HYDROmorphone 2 MG/ML VIAL 0.5 MG IVP ×3 (07:46→20:57)
[2017-12-24] MEDS: Mometasone 220 MCG 14 DOSE INHALER IH ×2 (07:53→20:33)
[2017-12-24 08:38] LABS: Abs Immature Grans 0.03 k/cumm (0.0-0.09); Absolute Basophil Count 0.01 k/cumm (0.0-0.2); Absolute Lymphocyte Count 0.71 k/cumm (1.2-3.4); Absolute Monocyte Count 0.33 k/cumm (0.11-0.7); Absolute Neutrophil Count 9.18 k/cumm (1.2-6.7); Basophils % 0.1; HCT 35.9 % (36.0-46.0); HGB 12.4 g/dL (12.0-15.5); Immature Grans % 0.3; Lymphocytes % 6.9; Mean Corp. HGB Concentration 34.5 g/dL (32.0-36.0); Mean Corpuscular Hemoglobin 29.8 pg (27.0-33.0); Mean Corpuscular Volume 86.3 fL (80-95); Mean Platelet Volume 12.7 fL (8.0-11.0); Monocytes % 3.2; Neutrophils % 89.5; Platelet Count 165 x1000/uL (130-400); RBC 4.16 m/cumm (4.00-5.20); RBC Distribution Width 13.1 % (11.7-14.6); White Blood Cell Count 10.26 k/cumm (4.4-10.8)
[2017-12-24 08:53] LABS: ALT 18 U/L (12-78); AST 13 U/L (15-37); Albumin 3.7 g/dL (3.4-5.0); Alkaline Phosphatase 49 U/L (46-116); Bilirubin, Total 0.6 mg/dL (0.2-1.0); Total Protein 6.7 g/dL (6.4-8.2)
--- NOTE | 2017-12-24 09:03 | PDOC.CMIN ---
- If Service Date Differs Date of service: 12/24/17 Care Management Initial Assess REASON FOR HOSPITALIZATION:: Intractable Nausea and Vomiting PAST MEDICAL HISTORY/PAST SURGICAL HISTORY:: Hx of migraine headaches, Hx of DVT associated with , chronic anticoagulation, nephrolithiasis, recurrent DVT, asthma, GERD, Hypothyroidism, chronic back pain, chonic pelvic pain, panic disorder, anxiety disorder, ADHD, depression. Surgical: CARLO, BSO, cholecystectomy, knee arthroplasty, abdominal hysterectomy, bilateral sapingectomy with oophorectomy, cervical conization/LEEP, left thumb surgery PREVIOUS FUNCTIONAL STATUS/SOCIAL/FAMILY SUPPORTS:: Suzie resides in [place], [place] with her son and SO. She reports a supportive network of family and friends. She is known to this check writer salesperson from past admissions and had multiple ER visits last summer. Suzie deals with chronic pain though is independent in the community at baseline. CURRENT FUNCTIONAL STATUS:: Suzie is still in a recovery period from having an operation due to ruptured fallopian tube and appendix removal. Her and son were at her bedside, she report ongoing pain which she stated ROYAL Edgar was aware and had just treated. Suzie was open and pleasant in interaction. ADVANCE DIRECTIVES:: None on file at [facility]. Has patient been provided with information about the portal?: Yes Did the patient sign up for the portal?: No CODE STATUS:: Full Code INSURANCE COVERAGE / FINANCIAL ISSUES:: Medicare. Medicaid CURRENT HOME/COMMUNITY SERVICES/EQUIPMENT:: No current services or equipment. PRIMARY CARE PHYSICIAN:: Dr. Jonny Pettit POTENTIAL DISCHARGE NEEDS:: Follow up appointment with PCP. PATIENT/FAMILY EDUCATION NEEDS:: Discuss Ask me 3 questions to assure patient understanding of reason for hospitalization and knowledge of self care needs upon discharge. ANTICIPATED BARRIERS TO DISCHARGE:: None identified. TRANSPORTATION:: Family to transport home via private vehicle. PLAN:: Suzie will continue to be monitored and treated. No additional services anticipated for discharge. She will follow up with her PCP and plan of care as prescribed. She will transport via private vehicle with her family. Readmission - Within the Past 30 Days Yes or No: N (6 ER visits from 10/03/16-12/12/16. Only three within the last 12 mths.)
[2017-12-24] MEDS: Potassium Chloride 20 MEQ TABCR 40 MEQ PO (09:17)
[2017-12-24] MEDS: Methylphenidate 10 MG TAB 20 MG PO ×3 (09:17→16:33)
[2017-12-24] MEDS: Pantoprazole 40 MG VIAL IVP (09:17)
[2017-12-24] MEDS: MAGNESIUM SULFATE 2 GM/50 ML BAG IVPB (09:19)
--- NOTE | 2017-12-24 10:01 | INITIAL_ITS ---
- If Service Date Differs Date of service: 12/24/17 Care Management Initial Assess REASON FOR HOSPITALIZATION:: Intractable Nausea and Vomiting PAST MEDICAL HISTORY/PAST SURGICAL HISTORY:: Hx of migraine headaches, Hx of DVT associated with , chronic anticoagulation, nephrolithiasis, recurrent DVT, asthma, GERD, Hypothyroidism, chronic back pain, chonic pelvic pain, panic disorder, anxiety disorder, ADHD, depression. Surgical: CARLO, BSO, cholecystectomy, knee arthroplasty, abdominal hysterectomy, bilateral sapingectomy with oophorectomy, cervical conization/LEEP, left thumb surgery PREVIOUS FUNCTIONAL STATUS/SOCIAL/FAMILY SUPPORTS:: Suzie resides in [place], [place] with her son and SO. She reports a supportive network of family and friends. She is known to this typewriter assembler from past admissions and had multiple ER visits last summer. Suzie deals with chronic pain though is independent in the community at baseline. CURRENT FUNCTIONAL STATUS:: Suzie is still in a recovery period from having an operation due to ruptured fallopian tube and appendix removal. Her and son were at her bedside, she report ongoing pain which she stated ROYAL Edgar was aware and had just treated. Suzie was open and pleasant in interaction. ADVANCE DIRECTIVES:: None on file at [facility]. Has patient been provided with information about the portal?: Yes Did the patient sign up for the portal?: No CODE STATUS:: Full Code INSURANCE COVERAGE / FINANCIAL ISSUES:: Medicare. Medicaid CURRENT HOME/COMMUNITY SERVICES/EQUIPMENT:: No current services or equipment. PRIMARY CARE PHYSICIAN:: Dr. Jonny Pettit POTENTIAL DISCHARGE NEEDS:: Follow up appointment with PCP. PATIENT/FAMILY EDUCATION NEEDS:: Discuss Ask me 3 questions to assure patient understanding of reason for hospitalization and knowledge of self care needs upon discharge. ANTICIPATED BARRIERS TO DISCHARGE:: None identified. TRANSPORTATION:: Family to transport home via private vehicle. PLAN:: Suzie will continue to be monitored and treated. No additional services anticipated for discharge. She will follow up with her PCP and plan of care as prescribed. She will transport via private vehicle with her family. Readmission - Within the Past 30 Days Yes or No: N (6 ER visits from 10/03/16-12/12/16. Only three within the last 12 mths.)
[2017-12-24] MEDS: Enoxaparin 60 MG/0.6 ML SYR SC ×2 (10:06→22:06)
[2017-12-24] MEDS: LORazepam 2 MG/ML VIAL 1 MG IVP ×3 (10:07→22:40)
--- NOTE | 2017-12-24 11:15 | PHARADMIT ---
Admission Pharmacy Clinical Review Ruptured Fallopian Tube, INTRACTABLEN&V Code Status Full Code Current Weight Wgt- 64.4 kg Renally Cleared and Narrow Therapeutic Index Meds CrCl~64.1 mL/min Meds-OK QTc Value / Action Taken Program NA BP Control, Fever BP-116/72 Tmax- 37.1C Electrolytes reviewed Na-136 K+3.5 Mag-1.5 DVT Prophylaxis Lovenox Opiate Usage / Scheduled Bowel Regimen Ordered Yes, Plt/SCr for Heparin / Enoxaparin Plts -165 SCr-0.94 INR for Warfarin INR-2.4 H/H stable, WBC/Bands H&H- 12.4/35.9 WBC- 10.26 Antibiotic appropriateness Flagyl X 1 Cultures and Sensitivities Blood-pending Surgical ABX d/c within 24 hr Yes DM control / Insulin Dosing BG- 96 Heart Failure (Check EF%) (KACIE's, B-Block, Diuretics) none IV to PO Switch No Home Meds Reviewed Yes Home Meds Not Ordered Warfarin -Held,Klonopin, Lotrisone, Periactin, EpiPen, Fexofenadine, Imitrex, TAC Cream Comments PatOwn- Topamax -Brand Only) Citracal) Asmanex-sub fot Flovent
[2017-12-24] MEDS: Normal Saline 1,000 ML 125 ML IV ×2 (12:01→21:05)
[2017-12-24] MEDS: Ketorolac 15 MG/ML VIAL IVP ×3 (12:01→22:08)
[2017-12-24] MEDS: diphenhydrAMINE 50 MG/ML VIAL 25 MG IVP ×3 (12:02→23:58)
--- NOTE | 2017-12-24 13:00 | W.PM.PROGNOT ---
Date of service: 12/24/17 Time of Service: 13:00 Assessment and Plan (1) Right lower quadrant abdominal pain: Current visit: Yes Status: Acute s/p ex-lap and removal of right fallopian tube and appendix P\\ Regular diet May shower Ambulate May go home if tolerating diet F/U with Dr. Veliz in 2 -3 weeks Subjective Patient reports: still having pain Interval history since last seen: Pain in the RLQ. Sates its the same as yesterday. Patient is passing gas. She hasn't gotten up out of bed yet. Needs to walk. Exam Resp Auscultation: clear to auscultation bilaterally Cardio Rate: regular rate Rhythm: regular rhythm GI Palpation: soft (incisions are c/d/i), tender in the RLQ (mild tenderness, no guarding or rebound) and other Objective Objective Clinical Data: Abnormal lab results 12/24/17 12/24/17 12/24/17 Range/Units 06:25 06:25 06:25 Hct 35.9 L (36.0-46.0) % MPV 12.7 H (8.0-11.0) fL Absolute Neutrophils 9.18 H (1.2-6.7) k/cumm Absolute Lymphocytes 0.71 L (1.2-3.4) k/cumm PT 22.6 H (9.3-10.8) sec Calcium 7.5 L (8.5-10.1) mg/dL Magnesium 1.5 L (1.8-2.4) mg/dL AST 13 L (15-37) U/L Vital Signs Temp 97.5 F L 12/24/17 11:20 Pulse 56 L 12/24/17 11:20 Resp 18 12/24/17 11:20 BP 128/77 12/24/17 11:20 Pulse Ox 97 12/24/17 11:20 Intake & Output 12/23/17 12/24/17 12/24/17 23:59 11:59 23:59 Intake Total 1644.583 / 5409.556 3519.417 / 1851.417 40 / 40 Output Total 450 / 450 2180 / 2180 Balance 1194.583 / 1194.583 -328.583 / -328.583 40 / 40 Weight 141 lb 15.643 oz Intake: IV 1394.583 / 8090.579 5275.417 / 1601.417 40 / 40 Blood Product 250 / 250 250 / 250 Frozen Plasma Unit 250 / 250 [id number] Frozen Plasma Unit 250 / 250 [id number] Output: Urine 450 / 450 2150 / 2150 Estimated Blood Loss 30 30 Other: Urine Color Pale Yellow Straw Urine Appearance Clear Clear Urine Odor None Normal Emesis Description None Voiding Methods Toilet Toilet Laboratory Results WBC 10.26 k/cumm (4.4-10.8) 12/24/17 06:25 RBC 4.16 m/cumm (4.00-5.20) 12/24/17 06:25 Hgb 12.4 g/dL (12.0-15.5) D 12/24/17 06:25 Hct 35.9 % (36.0-46.0) L 12/24/17 06:25 MCV 86.3 fL (80-95) 12/24/17 06:25 MCH 29.8 pg (27.0-33.0) 12/24/17 06:25 MCHC 34.5 g/dL (32.0-36.0) 12/24/17 06:25 RDW 13.1 % (11.7-14.6) 12/24/17 06:25 Plt Count 165 x1000/uL (130-400) 12/24/17 06:25 MPV 12.7 fL (8.0-11.0) H 12/24/17 06:25 Immature Gran % 0.3 12/24/17 06:25 Neutrophils % 89.5 12/24/17 06:25 Lymphocytes % 6.9 12/24/17 06:25 Monocytes % 3.2 12/24/17 06:25 Eosinophils % 0.0 12/24/17 06:25 Basophils % 0.1 12/24/17 06:25 Absolute Neutrophils 9.18 k/cumm (1.2-6.7) H 12/24/17 06:25 Absolute Lymphocytes 0.71 k/cumm (1.2-3.4) L 12/24/17 06:25 Absolute Monocytes 0.33 k/cumm (0.11-0.7) 12/24/17 06:25 Absolute Eosinophils 0.00 k/cumm (0.0-0.7) 12/24/17 06:25 Absolute Basophils 0.01 k/cumm (0.0-0.2) 12/24/17 06:25 PT 22.6 sec (9.3-10.8) H 12/24/17 06:25 INR 2.4 (1.0-3.5) 12/24/17 06:25 Sodium 136 mmol/L (136-145) 12/24/17 06:25 Potassium 3.5 mmol/L (3.5-5.1) 12/24/17 06:25 Chloride 104 mmol/L (98-107) 12/24/17 06:25 Carbon Dioxide 24.8 mmol/L (21.0-32.0) 12/24/17 06:25 Anion Gap 7.2 mmol/L (3-11) 12/24/17 06:25 BUN 9 mg/dL (7-18) 12/24/17 06:25 Creatinine 0.94 mg/dL (0.55-1.02) 12/24/17 06:25 Estimated GFR/1.73 m2 >= 60.00 (mL/min/1.73m2) 12/24/17 06:25 Glucose 96 mg/dL (70-100) 12/24/17 06:25 Calcium 7.5 mg/dL (8.5-10.1) L 12/24/17 06:25 Magnesium 1.5 mg/dL (1.8-2.4) L 12/24/17 06:25 Total Bilirubin 0.6 mg/dL (0.2-1.0) 12/24/17 06:25 AST 13 U/L (15-37) L 12/24/17 06:25 ALT 18 U/L (12-78) 12/24/17 06:25 Alkaline Phosphatase 49 U/L (46-116) 12/24/17 06:25 Total Protein 6.7 g/dL (6.4-8.2) 12/24/17 06:25 Albumin 3.7 g/dL (3.4-5.0) 12/24/17 06:25 Lipase 140 U/L (73-393) 12/23/17 09:43 Urine Color Yellow (Yellow) 12/23/17 11:16 Urine Clarity Clear 12/23/17 11:16 Urine pH 7.5 (5-8) 12/23/17 11:16 Ur Specific [place] 1.020 (1.005-1.025) 12/23/17 11:16 Urine Protein Negative mg/dL (Negative) 12/23/17 11:16 Urine Ketones 15 mg/dL (Negative) H 12/23/17 11:16 Urine Blood Trace-intact (Negative) H 12/23/17 11:16 Urine Nitrite Negative (Negative) 12/23/17 11:16 Urine Bilirubin Negative (Negative) 12/23/17 11:16 Urine Urobilinogen 0.2 EU/dL (Up TO 0.2) 12/23/17 11:16 Ur Leukocyte Esterase Negative (Negative) 12/23/17 11:16 Urine RBC 0-2 (0-2) 12/23/17 11:16 Urine WBC 0-2 HPF (0-5) 12/23/17 11:16 Ur Epithelial Cells Few HPF (Negative) 12/23/17 11:16 Urine Crystals Negative HPF (Negative) 12/23/17 11:16 Urine Bacteria Few HPF (Negative) 12/23/17 11:16 Urine Casts Negative LPF (Negative) 12/23/17 11:16 Urine Mucus Negative (Negative) 12/23/17 11:16 Ur Culture Indicated? No 12/23/17 11:16 Urine Glucose Negative mg/dL (Negative) 12/23/17 11:16 Patient ABO/Rh Cancelled 12/23/17 22:11 Antibody Screen Negative 12/23/17 22:04
--- NOTE | 2017-12-24 13:02 | W.PM.PROGNOT ---
Date of service: 12/24/17 Time of Service: 13:04 Assessment and Plan (1) Right lower quadrant abdominal pain: Current visit: Yes Status: Acute Initial diagnosis of intractable nausea and vomiting in patient with prior episodes of this, Ms. Nguyen developed fevers and a change in her abdominal exam prompting imaging. She is now post-op D#1 following excision of her right Fallopian tube and an Appendectomy, although with symptoms likely on the basis of a Fallopian Cyst. Given her anticoagulation she was administered FFP as well. - Continue post-op pain control and monitor. Diet when appropriate. Currently remains afebrile. (2) Factor V Leiden mutation: Current visit: Yes Status: Chronic Continue Coumadin and monitor daily INR - currently therapeutic. Subjective Interval history since last seen: 37-year-old woman with a past medical history significant for factor V Leiden with recurrent DVTs, on chronic anticoagulation, as well as prior episodes of intractable nausea and vomiting admitted from [facility] emergency department with complaints of nausea and abdominal pain. Ms. nguyen he reported waking up this morning with ongoing abdominal pain, with concurrent nausea and vomiting. Her workup in the emergency department was fairly unremarkable, and she was administered a combination of anti-emetics and referred for admission for an acute bout of intractable N/V. Her symptoms had improved, and her exam was initially benign. However, following admission the patient developed a fever, prompting further evaluation with a CT of the a/p. Imaging showed evidence of RLQ mesenteritis on the basis of possible acute appendicitis vs. ascending colitis. Following a surgical consult the patient was taken to the OR at which time she under went an ex-lap, with findings supporting a ruptured Fallopian Cyst, s/p excision of the right Fallopian Tube. She also underwent an Appendectomy, although without overt evidence of acute appendicitis. This morning Ms. Nguyen reports post-op pain but overall improved. No overnight events reported. She has remained afebrile since last evening. Exam Const General: cooperative, comfortable and no acute distress Orientation: alert, awake and oriented x3 Neck Neck: supple Resp Effort & Inspection: normal respiratory effort Auscultation: clear to auscultation bilaterally Cardio Rate: regular rate Heart Sounds: S1 normal and S2 normal GI Inspection: normal to inspection Palpation: soft, not firm and not rigid Auscultation: normal bowel sounds Extrem General: no edema Psych Appearance: grossly normal Attitude: cooperative Judgment: judgment good Objective Objective Clinical Data: Abnormal lab results 12/24/17 12/24/17 12/24/17 Range/Units 06:25 06:25 06:25 Hct 35.9 L (36.0-46.0) % MPV 12.7 H (8.0-11.0) fL Absolute Neutrophils 9.18 H (1.2-6.7) k/cumm Absolute Lymphocytes 0.71 L (1.2-3.4) k/cumm PT 22.6 H (9.3-10.8) sec Calcium 7.5 L (8.5-10.1) mg/dL Magnesium 1.5 L (1.8-2.4) mg/dL AST 13 L (15-37) U/L Vital Signs Temp 36.4 C L 12/24/17 11:20 Pulse 56 L 12/24/17 11:20 Resp 18 12/24/17 11:20 BP 128/77 12/24/17 11:20 Pulse Ox 97 12/24/17 11:20 Intake & Output 12/23/17 12/24/17 12/24/17 23:59 11:59 23:59 Intake Total 1644.583 / 6680.939 3921.417 / 1851.417 40 / 40 Output Total 450 / 450 2180 / 2180 Balance 1194.583 / 1194.583 -328.583 / -328.583 40 / 40 Weight 64.4 kg Intake: IV 1394.583 / 6200.082 3290.417 / 1601.417 40 / 40 Blood Product 250 / 250 250 / 250 Frozen Plasma Unit 250 / 250 [id number] Frozen Plasma Unit 250 / 250 [id number] Output: Urine 450 / 450 2150 / 2150 Estimated Blood Loss 30 / 30 Other: Urine Color Pale Yellow Straw Urine Appearance Clear Clear Urine Odor None Normal Emesis Description None Voiding Methods Toilet Toilet Laboratory Results WBC 10.26 k/cumm (4.4-10.8) 12/24/17 06:25 RBC 4.16 m/cumm (4.00-5.20) 12/24/17 06:25 Hgb 12.4 g/dL (12.0-15.5) D 12/24/17 06:25 Hct 35.9 % (36.0-46.0) L 12/24/17 06:25 MCV 86.3 fL (80-95) 12/24/17 06:25 MCH 29.8 pg (27.0-33.0) 12/24/17 06:25 MCHC 34.5 g/dL (32.0-36.0) 12/24/17 06:25 RDW 13.1 % (11.7-14.6) 12/24/17 06:25 Plt Count 165 x1000/uL (130-400) 12/24/17 06:25 MPV 12.7 fL (8.0-11.0) H 12/24/17 06:25 Immature Gran % 0.3 12/24/17 06:25 Neutrophils % 89.5 12/24/17 06:25 Lymphocytes % 6.9 12/24/17 06:25 Monocytes % 3.2 12/24/17 06:25 Eosinophils % 0.0 12/24/17 06:25 Basophils % 0.1 12/24/17 06:25 Absolute Neutrophils 9.18 k/cumm (1.2-6.7) H 12/24/17 06:25 Absolute Lymphocytes 0.71 k/cumm (1.2-3.4) L 12/24/17 06:25 Absolute Monocytes 0.33 k/cumm (0.11-0.7) 12/24/17 06:25 Absolute Eosinophils 0.00 k/cumm (0.0-0.7) 12/24/17 06:25 Absolute Basophils 0.01 k/cumm (0.0-0.2) 12/24/17 06:25 PT 22.6 sec (9.3-10.8) H 12/24/17 06:25 INR 2.4 (1.0-3.5) 12/24/17 06:25 Sodium 136 mmol/L (136-145) 12/24/17 06:25 Potassium 3.5 mmol/L (3.5-5.1) 12/24/17 06:25 Chloride 104 mmol/L (98-107) 12/24/17 06:25 Carbon Dioxide 24.8 mmol/L (21.0-32.0) 12/24/17 06:25 Anion Gap 7.2 mmol/L (3-11) 12/24/17 06:25 BUN 9 mg/dL (7-18) 12/24/17 06:25 Creatinine 0.94 mg/dL (0.55-1.02) 12/24/17 06:25 Estimated GFR/1.73 m2 >= 60.00 (mL/min/1.73m2) 12/24/17 06:25 Glucose 96 mg/dL (70-100) 12/24/17 06:25 Calcium 7.5 mg/dL (8.5-10.1) L 12/24/17 06:25 Magnesium 1.5 mg/dL (1.8-2.4) L 12/24/17 06:25 Total Bilirubin 0.6 mg/dL (0.2-1.0) 12/24/17 06:25 AST 13 U/L (15-37) L 12/24/17 06:25 ALT 18 U/L (12-78) 12/24/17 06:25 Alkaline Phosphatase 49 U/L (46-116) 12/24/17 06:25 Total Protein 6.7 g/dL (6.4-8.2) 12/24/17 06:25 Albumin 3.7 g/dL (3.4-5.0) 12/24/17 06:25 Lipase 140 U/L (73-393) 12/23/17 09:43 Urine Color Yellow (Yellow) 12/23/17 11:16 Urine Clarity Clear 12/23/17 11:16 Urine pH 7.5 (5-8) 12/23/17 11:16 Ur Specific [place] 1.020 (1.005-1.025) 12/23/17 11:16 Urine Protein Negative mg/dL (Negative) 12/23/17 11:16 Urine Ketones 15 mg/dL (Negative) H 12/23/17 11:16 Urine Blood Trace-intact (Negative) H 12/23/17 11:16 Urine Nitrite Negative (Negative) 12/23/17 11:16 Urine Bilirubin Negative (Negative) 12/23/17 11:16 Urine Urobilinogen 0.2 EU/dL (Up TO 0.2) 12/23/17 11:16 Ur Leukocyte Esterase Negative (Negative) 12/23/17 11:16 Urine RBC 0-2 (0-2) 12/23/17 11:16 Urine WBC 0-2 HPF (0-5) 12/23/17 11:16 Ur Epithelial Cells Few HPF (Negative) 12/23/17 11:16 Urine Crystals Negative HPF (Negative) 12/23/17 11:16 Urine Bacteria Few HPF (Negative) 12/23/17 11:16 Urine Casts Negative LPF (Negative) 12/23/17 11:16 Urine Mucus Negative (Negative) 12/23/17 11:16 Ur Culture Indicated? No 12/23/17 11:16 Urine Glucose Negative mg/dL (Negative) 12/23/17 11:16 Patient ABO/Rh Cancelled 12/23/17 22:11 Antibody Screen Negative 12/23/17 22:04
--- NOTE | 2017-12-24 13:08 | PGE_ITS ---
Date of service: 12/24/17 Time of Service: 13:00 Assessment and Plan (1) Right lower quadrant abdominal pain: Current visit: Yes Status: Acute s/p ex-lap and removal of right fallopian tube and appendix P\\ Regular diet May shower Ambulate May go home if tolerating diet F/U with Dr. Veliz in 2 -3 weeks Subjective Patient reports: still having pain Interval history since last seen: Pain in the RLQ. Sates its the same as yesterday. Patient is passing gas. She hasn't gotten up out of bed yet. Needs to walk. Exam Resp Auscultation: clear to auscultation bilaterally Cardio Rate: regular rate Rhythm: regular rhythm GI Palpation: soft (incisions are c/d/i), tender in the RLQ (mild tenderness, no guarding or rebound) and other Objective Objective Clinical Data: Abnormal lab results 12/24/17 12/24/17 12/24/17 Range/Units 06:25 06:25 06:25 Hct 35.9 L (36.0-46.0) % MPV 12.7 H (8.0-11.0) fL Absolute Neutrophils 9.18 H (1.2-6.7) k/cumm Absolute Lymphocytes 0.71 L (1.2-3.4) k/cumm PT 22.6 H (9.3-10.8) sec Calcium 7.5 L (8.5-10.1) mg/dL Magnesium 1.5 L (1.8-2.4) mg/dL AST 13 L (15-37) U/L Vital Signs Temp 97.5 F L 12/24/17 11:20 Pulse 56 L 12/24/17 11:20 Resp 18 12/24/17 11:20 BP 128/77 12/24/17 11:20 Pulse Ox 97 12/24/17 11:20 Intake & Output 12/23/17 12/24/17 12/24/17 23:59 11:59 23:59 Intake Total 1644.583 / 3529.452 6382.417 / 1851.417 40 / 40 Output Total 450 / 450 2180 / 2180 Balance 1194.583 / 1194.583 -328.583 / -328.583 40 / 40 Weight 141 lb 15.643 oz Intake: IV 1394.583 / 7023.889 2221.417 / 1601.417 40 / 40 Blood Product 250 / 250 250 / 250 Frozen Plasma Unit 250 / 250 [id number] Frozen Plasma Unit 250 / 250 [id number] Output: Urine 450 / 450 2150 / 2150 Estimated Blood Loss 30 30 Other: Urine Color Pale Yellow Straw Urine Appearance Clear Clear Urine Odor None Normal Emesis Description None Voiding Methods Toilet Toilet Laboratory Results WBC 10.26 k/cumm (4.4-10.8) 12/24/17 06:25 RBC 4.16 m/cumm (4.00-5.20) 12/24/17 06:25 Hgb 12.4 g/dL (12.0-15.5) D 12/24/17 06:25 Hct 35.9 % (36.0-46.0) L 12/24/17 06:25 MCV 86.3 fL (80-95) 12/24/17 06:25 MCH 29.8 pg (27.0-33.0) 12/24/17 06:25 MCHC 34.5 g/dL (32.0-36.0) 12/24/17 06:25 RDW 13.1 % (11.7-14.6) 12/24/17 06:25 Plt Count 165 x1000/uL (130-400) 12/24/17 06:25 MPV 12.7 fL (8.0-11.0) H 12/24/17 06:25 Immature Gran % 0.3 12/24/17 06:25 Neutrophils % 89.5 12/24/17 06:25 Lymphocytes % 6.9 12/24/17 06:25 Monocytes % 3.2 12/24/17 06:25 Eosinophils % 0.0 12/24/17 06:25 Basophils % 0.1 12/24/17 06:25 Absolute Neutrophils 9.18 k/cumm (1.2-6.7) H 12/24/17 06:25 Absolute Lymphocytes 0.71 k/cumm (1.2-3.4) L 12/24/17 06:25 Absolute Monocytes 0.33 k/cumm (0.11-0.7) 12/24/17 06:25 Absolute Eosinophils 0.00 k/cumm (0.0-0.7) 12/24/17 06:25 Absolute Basophils 0.01 k/cumm (0.0-0.2) 12/24/17 06:25 PT 22.6 sec (9.3-10.8) H 12/24/17 06:25 INR 2.4 (1.0-3.5) 12/24/17 06:25 Sodium 136 mmol/L (136-145) 12/24/17 06:25 Potassium 3.5 mmol/L (3.5-5.1) 12/24/17 06:25 Chloride 104 mmol/L (98-107) 12/24/17 06:25 Carbon Dioxide 24.8 mmol/L (21.0-32.0) 12/24/17 06:25 Anion Gap 7.2 mmol/L (3-11) 12/24/17 06:25 BUN 9 mg/dL (7-18) 12/24/17 06:25 Creatinine 0.94 mg/dL (0.55-1.02) 12/24/17 06:25 Estimated GFR/1.73 m2 >= 60.00 (mL/min/1.73m2) 12/24/17 06:25 Glucose 96 mg/dL (70-100) 12/24/17 06:25 Calcium 7.5 mg/dL (8.5-10.1) L 12/24/17 06:25 Magnesium 1.5 mg/dL (1.8-2.4) L 12/24/17 06:25 Total Bilirubin 0.6 mg/dL (0.2-1.0) 12/24/17 06:25 AST 13 U/L (15-37) L 12/24/17 06:25 ALT 18 U/L (12-78) 12/24/17 06:25 Alkaline Phosphatase 49 U/L (46-116) 12/24/17 06:25 Total Protein 6.7 g/dL (6.4-8.2) 12/24/17 06:25 Albumin 3.7 g/dL (3.4-5.0) 12/24/17 06:25 Lipase 140 U/L (73-393) 12/23/17 09:43 Urine Color Yellow (Yellow) 12/23/17 11:16 Urine Clarity Clear 12/23/17 11:16 Urine pH 7.5 (5-8) 12/23/17 11:16 Ur Specific [place] 1.020 (1.005-1.025) 12/23/17 11:16 Urine Protein Negative mg/dL (Negative) 12/23/17 11:16 Urine Ketones 15 mg/dL (Negative) H 12/23/17 11:16 Urine Blood Trace-intact (Negative) H 12/23/17 11:16 Urine Nitrite Negative (Negative) 12/23/17 11:16 Urine Bilirubin Negative (Negative) 12/23/17 11:16 Urine Urobilinogen 0.2 EU/dL (Up TO 0.2) 12/23/17 11:16 Ur Leukocyte Esterase Negative (Negative) 12/23/17 11:16 Urine RBC 0-2 (0-2) 12/23/17 11:16 Urine WBC 0-2 HPF (0-5) 12/23/17 11:16 Ur Epithelial Cells Few HPF (Negative) 12/23/17 11:16 Urine Crystals Negative HPF (Negative) 12/23/17 11:16 Urine Bacteria Few HPF (Negative) 12/23/17 11:16 Urine Casts Negative LPF (Negative) 12/23/17 11:16 Urine Mucus Negative (Negative) 12/23/17 11:16 Ur Culture Indicated? No 12/23/17 11:16 Urine Glucose Negative mg/dL (Negative) 12/23/17 11:16 Patient ABO/Rh Cancelled 12/23/17 22:11 Antibody Screen Negative 12/23/17 22:04
--- NOTE | 2017-12-24 13:16 | PGE_ITS ---
Date of service: 12/24/17 Time of Service: 13:04 Assessment and Plan (1) Right lower quadrant abdominal pain: Current visit: Yes Status: Acute Initial diagnosis of intractable nausea and vomiting in patient with prior episodes of this, Ms. Nguyen developed fevers and a change in her abdominal exam prompting imaging. She is now post-op D#1 following excision of her right Fallopian tube and an Appendectomy, although with symptoms likely on the basis of a Fallopian Cyst. Given her anticoagulation she was administered FFP as well. - Continue post-op pain control and monitor. Diet when appropriate. Currently remains afebrile. (2) Factor V Leiden mutation: Current visit: Yes Status: Chronic Continue Coumadin and monitor daily INR - currently therapeutic. Subjective Interval history since last seen: 37-year-old woman with a past medical history significant for factor V Leiden with recurrent DVTs, on chronic anticoagulation , as well as prior episodes of intractable nausea and vomiting admitted from [facility] emergency department with complaints of nausea and abdominal pain. Ms. nguyen he reported waking up this morning with ongoing abdominal pain, with concurrent nausea and vomiting. Her workup in the emergency department was fairly unremarkable, and she was administered a combination of anti-emetics and referred for admission for an acute bout of intractable N/V. Her symptoms had improved, and her exam was initially benign. However, following admission the patient developed a fever, prompting further evaluation with a CT of the a/p. Imaging showed evidence of RLQ mesenteritis on the basis of possible acute appendicitis vs. ascending colitis. Following a surgical consult the patient was taken to the OR at which time she under went an ex-lap, with findings supporting a ruptured Fallopian Cyst, s/p excision of the right Fallopian Tube. She also underwent an Appendectomy, although without overt evidence of acute appendicitis. This morning Ms. Nguyen reports post-op pain but overall improved. No overnight events reported. She has remained afebrile since last evening. Exam Const General: cooperative, comfortable and no acute distress Orientation: alert, awake and oriented x3 Neck Neck: supple Resp Effort & Inspection: normal respiratory effort Auscultation: clear to auscultation bilaterally Cardio Rate: regular rate Heart Sounds: S1 normal and S2 normal GI Inspection: normal to inspection Palpation: soft, not firm and not rigid Auscultation: normal bowel sounds Extrem General: no edema Psych Appearance: grossly normal Attitude: cooperative Judgment: judgment good Objective Objective Clinical Data: Abnormal lab results 12/24/17 12/24/17 12/24/17 Range/Units 06:25 06:25 06:25 Hct 35.9 L (36.0-46.0) % MPV 12.7 H (8.0-11.0) fL Absolute Neutrophils 9.18 H (1.2-6.7) k/cumm Absolute Lymphocytes 0.71 L (1.2-3.4) k/cumm PT 22.6 H (9.3-10.8) sec Calcium 7.5 L (8.5-10.1) mg/dL Magnesium 1.5 L (1.8-2.4) mg/dL AST 13 L (15-37) U/L Vital Signs Temp 36.4 C L 12/24/17 11:20 Pulse 56 L 12/24/17 11:20 Resp 18 12/24/17 11:20 BP 128/77 12/24/17 11:20 Pulse Ox 97 12/24/17 11:20 Intake & Output 12/23/17 12/24/17 12/24/17 23:59 11:59 23:59 Intake Total 1644.583 / 9814.417 8503.417 / 1851.417 40 / 40 Output Total 450 / 450 2180 / 2180 Balance 1194.583 / 1194.583 -328.583 / -328.583 40 / 40 Weight 64.4 kg Intake: IV 1394.583 / 2663.469 7177.417 / 1601.417 40 / 40 Blood Product 250 / 250 250 / 250 Frozen Plasma Unit 250 / 250 [id number] Frozen Plasma Unit 250 / 250 [id number] Output: Urine 450 / 450 2150 / 2150 Estimated Blood Loss 30 / 30 Other: Urine Color Pale Yellow Straw Urine Appearance Clear Clear Urine Odor None Normal Emesis Description None Voiding Methods Toilet Toilet Laboratory Results WBC 10.26 k/cumm (4.4-10.8) 12/24/17 06:25 RBC 4.16 m/cumm (4.00-5.20) 12/24/17 06:25 Hgb 12.4 g/dL (12.0-15.5) D 12/24/17 06:25 Hct 35.9 % (36.0-46.0) L 12/24/17 06:25 MCV 86.3 fL (80-95) 12/24/17 06:25 MCH 29.8 pg (27.0-33.0) 12/24/17 06:25 MCHC 34.5 g/dL (32.0-36.0) 12/24/17 06:25 RDW 13.1 % (11.7-14.6) 12/24/17 06:25 Plt Count 165 x1000/uL (130-400) 12/24/17 06:25 MPV 12.7 fL (8.0-11.0) H 12/24/17 06:25 Immature Gran % 0.3 12/24/17 06:25 Neutrophils % 89.5 12/24/17 06:25 Lymphocytes % 6.9 12/24/17 06:25 Monocytes % 3.2 12/24/17 06:25 Eosinophils % 0.0 12/24/17 06:25 Basophils % 0.1 12/24/17 06:25 Absolute Neutrophils 9.18 k/cumm (1.2-6.7) H 12/24/17 06:25 Absolute Lymphocytes 0.71 k/cumm (1.2-3.4) L 12/24/17 06:25 Absolute Monocytes 0.33 k/cumm (0.11-0.7) 12/24/17 06:25 Absolute Eosinophils 0.00 k/cumm (0.0-0.7) 12/24/17 06:25 Absolute Basophils 0.01 k/cumm (0.0-0.2) 12/24/17 06:25 PT 22.6 sec (9.3-10.8) H 12/24/17 06:25 INR 2.4 (1.0-3.5) 12/24/17 06:25 Sodium 136 mmol/L (136-145) 12/24/17 06:25 Potassium 3.5 mmol/L (3.5-5.1) 12/24/17 06:25 Chloride 104 mmol/L (98-107) 12/24/17 06:25 Carbon Dioxide 24.8 mmol/L (21.0-32.0) 12/24/17 06:25 Anion Gap 7.2 mmol/L (3-11) 12/24/17 06:25 BUN 9 mg/dL (7-18) 12/24/17 06:25 Creatinine 0.94 mg/dL (0.55-1.02) 12/24/17 06:25 Estimated GFR/1.73 m2 >= 60.00 (mL/min/1.73m2) 12/24/17 06:25 Glucose 96 mg/dL (70-100) 12/24/17 06:25 Calcium 7.5 mg/dL (8.5-10.1) L 12/24/17 06:25 Magnesium 1.5 mg/dL (1.8-2.4) L 12/24/17 06:25 Total Bilirubin 0.6 mg/dL (0.2-1.0) 12/24/17 06:25 AST 13 U/L (15-37) L 12/24/17 06:25 ALT 18 U/L (12-78) 12/24/17 06:25 Alkaline Phosphatase 49 U/L (46-116) 12/24/17 06:25 Total Protein 6.7 g/dL (6.4-8.2) 12/24/17 06:25 Albumin 3.7 g/dL (3.4-5.0) 12/24/17 06:25 Lipase 140 U/L (73-393) 12/23/17 09:43 Urine Color Yellow (Yellow) 12/23/17 11:16 Urine Clarity Clear 12/23/17 11:16 Urine pH 7.5 (5-8) 12/23/17 11:16 Ur Specific [place] 1.020 (1.005-1.025) 12/23/17 11:16 Urine Protein Negative mg/dL (Negative) 12/23/17 11:16 Urine Ketones 15 mg/dL (Negative) H 12/23/17 11:16 Urine Blood Trace-intact (Negative) H 12/23/17 11:16 Urine Nitrite Negative (Negative) 12/23/17 11:16 Urine Bilirubin Negative (Negative) 12/23/17 11:16 Urine Urobilinogen 0.2 EU/dL (Up TO 0.2) 12/23/17 11:16 Ur Leukocyte Esterase Negative (Negative) 12/23/17 11:16 Urine RBC 0-2 (0-2) 12/23/17 11:16 Urine WBC 0-2 HPF (0-5) 12/23/17 11:16 Ur Epithelial Cells Few HPF (Negative) 12/23/17 11:16 Urine Crystals Negative HPF (Negative) 12/23/17 11:16 Urine Bacteria Few HPF (Negative) 12/23/17 11:16 Urine Casts Negative LPF (Negative) 12/23/17 11:16 Urine Mucus Negative (Negative) 12/23/17 11:16 Ur Culture Indicated? No 12/23/17 11:16 Urine Glucose Negative mg/dL (Negative) 12/23/17 11:16 Patient ABO/Rh Cancelled 12/23/17 22:11 Antibody Screen Negative 12/23/17 22:04
[2017-12-24] MEDS: Butalbital/Acetaminophen/Caffeine 50/325/40 TAB PO (14:29)
[2017-12-24] MEDS: Ondansetron 4 MG/2 ML VIAL IVP (14:39)
[2017-12-24] MEDS: Metoclopramide 10 MG/2 ML VIAL IVP (16:33)
[2017-12-24] MEDS: Levothyroxine 100 MCG TAB PO (20:32)
[2017-12-25 00:08] VITALS: BP 113/68; PULSE 69; RESP 18; TEMP 37; O2SAT 97
[2017-12-25] MEDS: ACETAMINOPHEN 1,000 MG/100 ML BTL 400 MG IVPB ×2 (01:39→08:18)
[2017-12-25] MEDS: HYDROmorphone 2 MG/ML VIAL 0.5 MG IVP (03:28)
[2017-12-25] MEDS: Ketorolac 15 MG/ML VIAL IVP ×2 (04:49→10:44)
[2017-12-25] MEDS: Normal Saline 1,000 ML 125 ML IV (04:50)
[2017-12-25] MEDS: diphenhydrAMINE 50 MG/ML VIAL 25 MG IVP (06:02)
[2017-12-25 07:35] LABS: Anion Gap 2.8 mmol/L (3-11); BUN 12 mg/dL (7-18); CO2 26.2 mmol/L (21.0-32.0); CREATININE 1.01 mg/dL (0.55-1.02); Calcium 7.5 mg/dL (8.5-10.1); Chloride 109 mmol/L (98-107); Glucose 88 mg/dL (70-100); Sodium 138 mmol/L (136-145)
[2017-12-25 07:37] LABS: INR 2.8 (1.0-3.5); Prothrombin Time 26.7 sec (9.3-10.8)
[2017-12-25 07:40] VITALS: O2SAT 97
[2017-12-25] MEDS: Mometasone 220 MCG 14 DOSE INHALER IH (07:40)
[2017-12-25 07:47] VITALS: BP 135/73; PULSE 42; RESP 16; TEMP 37; O2SAT 98
[2017-12-25 08:00] VITALS: PULSE 68
[2017-12-25 08:04] LABS: Abs Immature Grans 0.01 k/cumm (0.0-0.09); Absolute Basophil Count 0.01 k/cumm (0.0-0.2); Absolute Eosinophil Count 0.01 k/cumm (0.0-0.7); Absolute Lymphocyte Count 1.68 k/cumm (1.2-3.4); Absolute Monocyte Count 0.63 k/cumm (0.11-0.7); Basophils % 0.1; Eosinophils % 0.1; HCT 31.9 % (36.0-46.0); HGB 10.6 g/dL (12.0-15.5); Immature Grans % 0.1; Lymphocytes % 23.9; Mean Corp. HGB Concentration 33.2 g/dL (32.0-36.0); Mean Corpuscular Hemoglobin 29.1 pg (27.0-33.0); Mean Corpuscular Volume 87.6 fL (80-95); Mean Platelet Volume 12.6 fL (8.0-11.0); Neutrophils % 66.8; Platelet Count 169 x1000/uL (130-400); RBC 3.64 m/cumm (4.00-5.20); RBC Distribution Width 13.5 % (11.7-14.6); White Blood Cell Count 7.03 k/cumm (4.4-10.8)
[2017-12-25] MEDS: Normal Saline Flush 10 ML SYR IVP ×3 (08:16→11:04)
[2017-12-25] MEDS: Potassium Chloride 20 MEQ TABCR 40 MEQ PO (08:17)
[2017-12-25] MEDS: Methylphenidate 10 MG TAB 20 MG PO ×3 (08:17→15:39)
[2017-12-25] MEDS: Pantoprazole 40 MG VIAL IVP (08:18)
--- NOTE | 2017-12-25 08:42 | PDOC.CMPRO ---
Care Management Progress Note S/O: Suzie was lying in bed when CM met with her. She reported she wanted to go home but was worried due to ongoing bleeding from her dressing, per her report. RN Philomena was providing a dressing change when CM was in the room; her wound will continue to be monitored and she will have a repeat CBC to monitor her levels. Suzie provided a brief check in, she reported wanting to go home but also sharing concerns around pain management and bleeding. A: 37 year old female admitted to [facility] for intractable nausea and vomiting, surgical intervention 12/24/17 for diagnostic laparoscopic excision right fallopian tube remnant, laparoscopic appendectomy P: Suzie will return home with no additional services anticipated at this time, she continues to recover and be monitored for pain control. She will transport via private vehicle with her .
--- NOTE | 2017-12-25 08:46 | CMPROGNOTE_ITS ---
Care Management Progress Note S/O: Suzie was lying in bed when CM met with her. She reported she wanted to go home but was worried due to ongoing bleeding from her dressing, per her report. RN Philomena was providing a dressing change when CM was in the room; her wound will continue to be monitored and she will have a repeat CBC to monitor her levels. Suzie provided a brief check in, she reported wanting to go home but also sharing concerns around pain management and bleeding. A: 37 year old female admitted to [facility] for intractable nausea and vomiting, surgical intervention 12/24/17 for diagnostic laparoscopic excision right fallopian tube remnant, laparoscopic appendectomy P: Suzie will return home with no additional services anticipated at this time , she continues to recover and be monitored for pain control. She will transport via private vehicle with her .
[2017-12-25 09:35] VITALS: BP 125/80; PULSE 69
--- NOTE | 2017-12-25 10:25 | PDOC.CMDIS ---
LACE Index Scoring Tool - Questions: Length of Stay (in days): 3 Acuity (Admit via E.D.?): Yes Care Management Discharge Reason for Hospitalization: Intractable Nausea and Vomiting Discharge Plan: Suzie will return home with no additional services anticipated at this time, she continues to recover and be monitored for pain control. She will transport via private vehicle with her . Patient/Family Education Needs: Review discharge instructions, discuss Ask Me Three.
[2017-12-25] MEDS: LORazepam 2 MG/ML VIAL 1 MG IVP (11:02)
--- NOTE | 2017-12-25 13:23 | W.PM.PROGNOT ---
Date of service: 12/25/17 Time of Service: 13:23 Assessment and Plan (1) Right lower quadrant abdominal pain: Current visit: Yes Status: Resolved POD # 2 s/p exp lap and removal of right fallopian tube and appendix Regular diet as tolerated. Patient instructed to leave her dressing intact this evening. OK to remove dressing and resume showering 12/26/17. Follow-up with Dr. Veliz in the office in 2-3 weeks. Discussed with patient, family, nurse, and Dr. Clarke. Patient was on hydrocodone/acetaminophen 5/325 mg po tid, to be tapered, as an outpatient as prescribed by Dr. Pettit. Will provide patient with one-time Rx for hydrocodorne/acetaminophen i po tid, #20, no refill, for post-op pain. Follow-up with Dr. Pettit for long-term pain management. Subjective Patient reports: no new complaints and tolerating liquids well (taking small amounts per patient) Interval history since last seen: She denies nausea or vomiting at this time. She notes (+) flatus/small BM. Patient wants to go home. She notes that there has been some bleeding from her incisions. Exam Const General: cooperative, no acute distress and well developed Orientation: alert and oriented x3 Resp Effort & Inspection: normal respiratory effort and able to speak in complete sentences GI Inspection: non-distended and incision (infraumbilical and suprapubic incisions with minimal oozing, no active bleeding; steri-strips removed and wounds cleansed with saline; benzoin and steri-strips reapplied; dry gauze dressing applied; left abdominal incision sites - dry/clean/steri-strips intact) Palpation: soft, not firm, no guarding and tender (mildly tender by incisions) Skin General skin exam: no rashes or lesions noted and no jaundice Neuro General: alert, awake and oriented x3 Speech: speech normal Objective Objective Clinical Data: Abnormal lab results 12/25/17 12/25/17 12/25/17 Range/Units 07:08 07:08 07:08 RBC 3.64 L (4.00-5.20) m/cumm Hgb 10.6 L (12.0-15.5) g/dL Hct 31.9 L (36.0-46.0) % MPV 12.6 H (8.0-11.0) fL PT 26.7 H (9.3-10.8) sec Chloride 109 H (98-107) mmol/L Anion Gap 2.8 L (3-11) mmol/L Calcium 7.5 L (8.5-10.1) mg/dL Vital Signs Temp 37.0 C 12/25/17 07:47 Pulse 69 12/25/17 09:35 Resp 16 12/25/17 07:47 BP 125/80 12/25/17 09:35 Pulse Ox 98 12/25/17 07:47 Intake & Output 12/24/17 12/25/17 12/25/17 23:59 11:59 23:59 Intake Total 3330.000 / 3330.000 1288.75 / 1288.75 981.25 / 981.25 Output Total 700 / 700 Balance 2630.000 / 2630.000 1288.75 / 1288.75 981.25 / 981.25 Intake: IV 2060.000 / 2060.000 1168.75 / 1168.75 981.25 / 981.25 Oral 1270 / 1270 120 / 120 Output: Urine 700 / 700 Other: Urine Color Yellow Urine Appearance Clear Urine Odor Normal Comment Void x1 in the toilet. Voiding Methods Toilet Laboratory Results WBC 7.03 k/cumm (4.4-10.8) D 12/25/17 07:08 RBC 3.64 m/cumm (4.00-5.20) L 12/25/17 07:08 Hgb 10.6 g/dL (12.0-15.5) L 12/25/17 07:08 Hct 31.9 % (36.0-46.0) L 12/25/17 07:08 MCV 87.6 fL (80-95) 12/25/17 07:08 MCH 29.1 pg (27.0-33.0) 12/25/17 07:08 MCHC 33.2 g/dL (32.0-36.0) 12/25/17 07:08 RDW 13.5 % (11.7-14.6) 12/25/17 07:08 Plt Count 169 x1000/uL (130-400) 12/25/17 07:08 MPV 12.6 fL (8.0-11.0) H 12/25/17 07:08 Immature Gran % 0.1 12/25/17 07:08 Neutrophils % 66.8 12/25/17 07:08 Lymphocytes % 23.9 12/25/17 07:08 Monocytes % 9.0 12/25/17 07:08 Eosinophils % 0.1 12/25/17 07:08 Basophils % 0.1 12/25/17 07:08 Absolute Neutrophils 4.70 k/cumm (1.2-6.7) 12/25/17 07:08 Absolute Lymphocytes 1.68 k/cumm (1.2-3.4) 12/25/17 07:08 Absolute Monocytes 0.63 k/cumm (0.11-0.7) 12/25/17 07:08 Absolute Eosinophils 0.01 k/cumm (0.0-0.7) 12/25/17 07:08 Absolute Basophils 0.01 k/cumm (0.0-0.2) 12/25/17 07:08 PT 26.7 sec (9.3-10.8) H 12/25/17 07:08 INR 2.8 (1.0-3.5) 12/25/17 07:08 Sodium 138 mmol/L (136-145) 12/25/17 07:08 Potassium 4.0 mmol/L (3.5-5.1) 12/25/17 07:08 Chloride 109 mmol/L (98-107) H 12/25/17 07:08 Carbon Dioxide 26.2 mmol/L (21.0-32.0) 12/25/17 07:08 Anion Gap 2.8 mmol/L (3-11) L 12/25/17 07:08 BUN 12 mg/dL (7-18) 12/25/17 07:08 Creatinine 1.01 mg/dL (0.55-1.02) 12/25/17 07:08 Estimated GFR/1.73 m2 >= 60.00 (mL/min/1.73m2) 12/25/17 07:08 Glucose 88 mg/dL (70-100) 12/25/17 07:08 Calcium 7.5 mg/dL (8.5-10.1) L 12/25/17 07:08 Magnesium 1.5 mg/dL (1.8-2.4) L 12/24/17 06:25 Total Bilirubin 0.6 mg/dL (0.2-1.0) 12/24/17 06:25 AST 13 U/L (15-37) L 12/24/17 06:25 ALT 18 U/L (12-78) 12/24/17 06:25 Alkaline Phosphatase 49 U/L (46-116) 12/24/17 06:25 Total Protein 6.7 g/dL (6.4-8.2) 12/24/17 06:25 Albumin 3.7 g/dL (3.4-5.0) 12/24/17 06:25 Lipase 140 U/L (73-393) 12/23/17 09:43 Urine Color Yellow (Yellow) 12/23/17 11:16 Urine Clarity Clear 12/23/17 11:16 Urine pH 7.5 (5-8) 12/23/17 11:16 Ur Specific [place] 1.020 (1.005-1.025) 12/23/17 11:16 Urine Protein Negative mg/dL (Negative) 12/23/17 11:16 Urine Ketones 15 mg/dL (Negative) H 12/23/17 11:16 Urine Blood Trace-intact (Negative) H 12/23/17 11:16 Urine Nitrite Negative (Negative) 12/23/17 11:16 Urine Bilirubin Negative (Negative) 12/23/17 11:16 Urine Urobilinogen 0.2 EU/dL (Up TO 0.2) 12/23/17 11:16 Ur Leukocyte Esterase Negative (Negative) 12/23/17 11:16 Urine RBC 0-2 (0-2) 12/23/17 11:16 Urine WBC 0-2 HPF (0-5) 12/23/17 11:16 Ur Epithelial Cells Few HPF (Negative) 12/23/17 11:16 Urine Crystals Negative HPF (Negative) 12/23/17 11:16 Urine Bacteria Few HPF (Negative) 12/23/17 11:16 Urine Casts Negative LPF (Negative) 12/23/17 11:16 Urine Mucus Negative (Negative) 12/23/17 11:16 Ur Culture Indicated? No 12/23/17 11:16 Urine Glucose Negative mg/dL (Negative) 12/23/17 11:16 Patient ABO/Rh Cancelled 12/23/17 22:11 Antibody Screen Negative 12/23/17 22:04
[2017-12-25] MEDS: HYDROcodone 5/Acetaminophen 325 TAB PO (13:43)
--- NOTE | 2017-12-25 14:24 | W.PM.DS.N ---
DS: Diagnosis Discharge Diagnosis (1) Right lower quadrant abdominal pain: Status: Resolved (2) Cyst of fallopian tube: Status: Acute Discharge Plan Disposition Patient Disposition: HOME Condition: Stable Discharge Details Reason For Visit: INTRACTABLE NAUSEA AND VOMITING Admit Date/Time: 12/23/17 14:45 Admit Provider: Liliana Ku Attending Provider: Jaya Clarke Primary Care Provider: [facility] Hospital Course: 37-year-old woman with a past medical history significant for factor V Leiden with recurrent DVTs, on chronic anticoagulation, as well as prior episodes of intractable nausea and vomiting admitted from [facility] emergency department with complaints of nausea & Vomiting with abdominal pain. Mrs. nguyen reported waking up the morning of her admission with acute onset of abdominal pain, with concurrent nausea and vomiting. Her workup in the emergency department was fairly unremarkable, and she was administered a combination of anti-emetics and referred for admission for an acute bout of intractable N/V. No imaging was performed. Her symptoms had improved, and her exam was initially benign. However, following admission the patient developed a fever and worsening abdominal pain, prompting further evaluation with a CT of the a/p. Imaging showed evidence of RLQ mesenteritis on the basis of possible acute appendicitis vs. ascending colitis. Following a surgical consult the patient was taken to the OR at which time she underwent an ex-lap, with findings supporting a ruptured Fallopian Cyst, s/p excision of the right Fallopian Tube. She also underwent an Appendectomy, although without overt evidence of acute appendicitis. On the morning of discharge the patient complained of blood oozing from her laparoscopic surgical sites. Following evaluation by surgery the patient was deemed safe for discharge. She is tolerating oral intake well. (1) Right lower quadrant abdominal pain: Current visit: Yes Status: Acute Initial diagnosis of intractable nausea and vomiting in patient with prior episodes of this, Ms. Nguyen developed fevers and a change in her abdominal exam prompting imaging. She is now post-op D#2 following excision of her right Fallopian tube and an Appendectomy, although with symptoms likely on the basis of a Fallopian Cyst. Given her anticoagulation she was administered FFP as well, and maintained on therapeutic Lovenox despite her therapeutic INR and concurrent coumadin use. - Continue post-op pain control and monitor. Continue regular. Currently remains afebrile. Patient to follow-up with surgery within 1-2 weeks of discharge. (2) Factor V Leiden mutation: Current visit: Yes Status: Chronic INR remains therapeutic. Recheck in 2 days. (3) Disposition: Deemed appropriate for discharge by surgery. Home Meds and New Rx's Prescriptions: New hydrocodone-acetaminophen 5-325 mg Tablet 1 tab PO Q8H PRN PRNQty: 0 RF: 0 Continue calcium crb,[id number]-genis [Citracal + Bone Density] 1 EACH tablet 1 ea PO BID RF: 0 albuterol sulfate 1.25 MG/3 ML solution for nebulization 1 amp Inhalation PRN Qty: 1 RF: 5 cyproheptadine 4 MG tablet 4 mg PO HS Qty: 90 RF: 3 levothyroxine [Synthroid] 100 MCG tablet 100 mcg PO QPM Qty: 90 RF: 4 topiramate [Topamax] 200 MG tablet 2 tab PO HS Qty: 180 RF: 4 ipratropium-albuterol 3 ML solution for nebulization 3 ml Inhalation Q4H PRN MDD 6 times PRNQty: 1 RF: 0 fluticasone [Flovent HFA] 12 GM HFA aerosol inhaler 2 inh Inhalation BID Qty: 3 RF: 4 albuterol sulfate [ProAir HFA] 8.5 GM HFA aerosol inhaler 2 puff Inhalation Q6H PRN MDD 6 puffs Qty: 3 RF: 4 omeprazole 40 MG capsule,delayed release(DR/EC) 40 mg PO DAILY PRNQty: 90 RF: 3 metoclopramide HCl 5 MG/1 ML solution 10 mg IM ONCE Qty: 1 RF: 0 fexofenadine 180 MG tablet 180 mg PO DAILY Qty: 90 RF: 4 clonazepam 1 MG tablet 1 mg PO TID Qty: 90 RF: 1 sumatriptan succinate 6 MG/0.5 ML pen injector 6 mg SQ As directed Qty: 8 RF: 5 epinephrine [EpiPen 2-Nino] 0.3 MG/0.3 ML auto-injector 0.3 mg IM ONCE Qty: 1 RF: 1 clotrimazole-betamethasone [Lotrisone] 15 GM cream Topical BID Qty: 45 RF: 0 warfarin [Coumadin] 5 MG tablet 0 - 10 mg PO HS PRN 90 Days Qty: 100 RF: 3 ketorolac 5 ML drops 1 drp Ophthalmic QID PRNQty: 5 RF: 3 triamcinolone acetonide 15 GM cream Topical BID PRNQty: 60 RF: 0 methylphenidate HCl 20 MG tablet 20 mg PO TID Qty: 84 RF: 0 ondansetron 4 MG tablet,disintegrating 4 mg PO Q8H PRN PRN4 Days Qty: 12 RF: 0 etshgxwkod-dikmqxdaqphfg-ygco 1 EACH tablet 1 tab-cap PO Q6H PRN Qty: 30 RF: 1 inhalational spacing device [Space Chamber Plus] 1 EACH spacer 1 ea Miscellaneous Q4H PRN PRNQty: 1 RF: 0 naloxone [Narcan] 4 MG spray,non-aerosol 4 mg NS DAILY PRN PRNQty: 2 RF: 0 Discontinued hydrocodone-acetaminophen 1 EACH tablet 1 tab-cap PO TID PRNQty: 79 RF: 0 Discharge Instructions Instructions: Acute Nausea and Vomiting (DC) Additional Instructions: Please follow-up with surgery within 1-2 weeks (Dr. Nic Veliz or Dr. Haleigh Hagen) Please perform blood work in 2 days. Stand Alone Forms: Nursing Discharge Form Referrals: Nic Veliz DO [ [facility] STAFF PHYSICIAN] - 01/11/18 11:00 am () Jonyn Pettit MD [Primary Care Provider] - (Please call the office to schedule a follow up appointment within two weeks. [phone]) Activity:: lifting >20# Equipment/Supplies:: No Equipment Needed Diet:: Normal Diet Discharge Orders Other Ambulatory Orders: Complete Blood Count w/Diff (Routine) Timeframe: 2 Days Location: Determined by Patient Ordered By: Jaya Clarke Prothrombin Time (Routine) Timeframe: 2 Days Location: Determined by Patient Ordered By: Jaya Clarke Exam Const General: cooperative, comfortable, no acute distress and well developed Orientation: alert, awake and oriented x3 Neck Neck: supple Resp Effort & Inspection: normal respiratory effort, able to speak in complete sentences and not labored Auscultation: clear to auscultation bilaterally and no wheezes Cardio Rate: regular rate Heart Sounds: S1 normal and S2 normal GI Inspection: normal to inspection (Abdominal bandage blood soaked.) and non-distended Palpation: soft, not firm, no guarding, not rigid and tender (mildly tender by incisions) in the RLQ (mild tenderness, no guarding or rebound) Auscultation: normal bowel sounds Extrem General: no edema DS: Data Vitals/I&O Vitals and I&O: Vital Signs Temp 37.0 C 12/25/17 07:47 Pulse 69 12/25/17 09:35 Resp 16 12/25/17 07:47 BP 125/80 12/25/17 09:35 Pulse Ox 98 12/25/17 07:47 Intake & Output 12/24/17 12/25/17 12/25/17 23:59 11:59 23:59 Intake Total 3330.000 / 3330.000 1288.75 / 1288.75 1481.25 / 1481.25 Output Total 700 / 700 Balance 2630.000 / 2630.000 1288.75 / 1288.75 1481.25 / 1481.25 Intake: IV 2060.000 / 2060.000 1168.75 / 1168.75 981.25 / 981.25 Oral 1270 / 1270 120 / 120 500 / 500 Output: Urine 700 / 700 Other: Urine Color Yellow Urine Appearance Clear Clear Urine Odor Normal Comment Void x1 in the toilet. voiding at [facility] [place] Voiding Methods Toilet Toilet Labs on day of discharge: Labs from last 24 hours 12/25/17 12/25/17 12/25/17 07:08 07:08 07:08 WBC 7.03 D RBC 3.64 L Hgb 10.6 L Hct 31.9 L MCV 87.6 MCH 29.1 MCHC 33.2 RDW 13.5 Plt Count 169 MPV 12.6 H Immature Gran % 0.1 Neutrophils % 66.8 Lymphocytes % 23.9 Monocytes % 9.0 Eosinophils % 0.1 Basophils % 0.1 Absolute Neutrophils 4.70 Absolute Lymphocytes 1.68 Absolute Monocytes 0.63 Absolute Eosinophils 0.01 Absolute Basophils 0.01 PT 26.7 H INR 2.8 Sodium 138 Potassium 4.0 Chloride 109 H Carbon Dioxide 26.2 Anion Gap 2.8 L BUN 12 Creatinine 1.01 Estimated GFR/1.73 m2 >= 60.00 Glucose 88 Calcium 7.5 L Preliminary micro results at discharge 12/23/17 19:20 Blood Culture - Preliminary Blood NO GROWTH 24 HOURS 12/23/17 19:10 Blood Culture - Preliminary Blood NO GROWTH 24 HOURS Date of service: 12/25/17 Time of Service: 14:27
--- NOTE | 2017-12-25 14:35 | DSE_ITS ---
DS: Diagnosis Discharge Diagnosis (1) Right lower quadrant abdominal pain: Status: Resolved (2) Cyst of fallopian tube: Status: Acute Discharge Plan Disposition Patient Disposition: HOME Condition: Stable Discharge Details Reason For Visit: INTRACTABLE NAUSEA AND VOMITING Admit Date/Time: 12/23/17 14:45 Admit Provider: Liliana Ku Attending Provider: Jaya Clarke Primary Care [facility] Hospital Course: 37-year-old woman with a past medical history significant for factor V Leiden with recurrent DVTs, on chronic anticoagulation, as well as prior episodes of intractable nausea and vomiting admitted from [facility] emergency department with complaints of nausea & Vomiting with abdominal pain. Mrs. nguyen reported waking up the morning of her admission with acute onset of abdominal pain, with concurrent nausea and vomiting. Her workup in the emergency department was fairly unremarkable, and she was administered a combination of anti-emetics and referred for admission for an acute bout of intractable N/V. No imaging was performed. Her symptoms had improved, and her exam was initially benign. However, following admission the patient developed a fever and worsening abdominal pain, prompting further evaluation with a CT of the a/p. Imaging showed evidence of RLQ mesenteritis on the basis of possible acute appendicitis vs. ascending colitis. Following a surgical consult the patient was taken to the OR at which time she underwent an ex-lap, with findings supporting a ruptured Fallopian Cyst, s/p excision of the right Fallopian Tube. She also underwent an Appendectomy, although without overt evidence of acute appendicitis. On the morning of discharge the patient complained of blood oozing from her laparoscopic surgical sites. Following evaluation by surgery the patient was deemed safe for discharge. She is tolerating oral intake well. (1) Right lower quadrant abdominal pain: Current visit: Yes Status: Acute Initial diagnosis of intractable nausea and vomiting in patient with prior episodes of this, Ms. Nguyen developed fevers and a change in her abdominal exam prompting imaging. She is now post-op D#2 following excision of her right Fallopian tube and an Appendectomy, although with symptoms likely on the basis of a Fallopian Cyst. Given her anticoagulation she was administered FFP as well, and maintained on therapeutic Lovenox despite her therapeutic INR and concurrent coumadin use. - Continue post-op pain control and monitor. Continue regular. Currently remains afebrile. Patient to follow-up with surgery within 1-2 weeks of discharge. (2) Factor V Leiden mutation: Current visit: Yes Status: Chronic INR remains therapeutic. Recheck in 2 days. (3) Disposition: Deemed appropriate for discharge by surgery. Home Meds and New Rx's Prescriptions: New hydrocodone-acetaminophen 5-325 mg Tablet 1 tab PO Q8H PRN PRNQty: 0 RF: 0 Continue calcium crb,sjp-X4-adw75-genis [Citracal + Bone Density] 1 EACH tablet 1 ea PO BID RF: 0 albuterol sulfate 1.25 MG/3 ML solution for nebulization 1 amp Inhalation PRN Qty: 1 RF: 5 cyproheptadine 4 MG tablet 4 mg PO HS Qty: 90 RF: 3 levothyroxine [Synthroid] 100 MCG tablet 100 mcg PO QPM Qty: 90 RF: 4 topiramate [Topamax] 200 MG tablet 2 tab PO HS Qty: 180 RF: 4 ipratropium-albuterol 3 ML solution for nebulization 3 ml Inhalation Q4H PRN MDD 6 times PRNQty: 1 RF: 0 fluticasone [Flovent HFA] 12 GM HFA aerosol inhaler 2 inh Inhalation BID Qty: 3 RF: 4 albuterol sulfate [ProAir HFA] 8.5 GM HFA aerosol inhaler 2 puff Inhalation Q6H PRN MDD 6 puffs Qty: 3 RF: 4 omeprazole 40 MG capsule,delayed release(DR/EC) 40 mg PO DAILY PRNQty: 90 RF: 3 metoclopramide HCl 5 MG/1 ML solution 10 mg IM ONCE Qty: 1 RF: 0 fexofenadine 180 MG tablet 180 mg PO DAILY Qty: 90 RF: 4 clonazepam 1 MG tablet 1 mg PO TID Qty: 90 RF: 1 sumatriptan succinate 6 MG/0.5 ML pen injector 6 mg SQ As directed Qty: 8 RF: 5 epinephrine [EpiPen 2-Nino] 0.3 MG/0.3 ML auto-injector 0.3 mg IM ONCE Qty: 1 RF: 1 clotrimazole-betamethasone [Lotrisone] 15 GM cream Topical BID Qty: 45 RF: 0 warfarin [Coumadin] 5 MG tablet 0 - 10 mg PO HS PRN 90 Days Qty: 100 RF: 3 ketorolac 5 ML drops 1 drp Ophthalmic QID PRNQty: 5 RF: 3 triamcinolone acetonide 15 GM cream Topical BID PRNQty: 60 RF: 0 methylphenidate HCl 20 MG tablet 20 mg PO TID Qty: 84 RF: 0 ondansetron 4 MG tablet,disintegrating 4 mg PO Q8H PRN PRN4 Days Qty: 12 RF: 0 oponcsjamm-quvhfkroznhhe-lzpd 1 EACH tablet 1 tab-cap PO Q6H PRN Qty: 30 RF: 1 inhalational spacing device [Space Chamber Plus] 1 EACH spacer 1 ea Miscellaneous Q4H PRN PRNQty: 1 RF: 0 naloxone [Narcan] 4 MG spray,non-aerosol 4 mg NS DAILY PRN PRNQty: 2 RF: 0 Discontinued hydrocodone-acetaminophen 1 EACH tablet 1 tab-cap PO TID PRNQty: 79 RF: 0 Discharge Instructions Instructions: Acute Nausea and Vomiting (DC) Additional Instructions: Please follow-up with surgery within 1-2 weeks (Dr. Nic Veliz or Dr. Haleigh Hagen) Please perform blood work in 2 days. Stand Alone Forms: Nursing Discharge Form Referrals: Nic Veliz DO [ [facility] STAFF PHYSICIAN] - 01/11/18 11:00 am () Jonny Pettit MD [Primary Care Provider] - (Please call the office to schedule a follow up appointment within two weeks. [phone]) Activity:: lifting >20# Equipment/Supplies:: No Equipment Needed Diet:: Normal Diet Discharge Orders Other Ambulatory Orders: Complete Blood Count w/Diff (Routine) Timeframe: 2 Days Location: Determined by Patient Ordered By: Jaya Clarke Prothrombin Time (Routine) Timeframe: 2 Days Location: Determined by Patient Ordered By: Jaya Clarke Exam Const General: cooperative, comfortable, no acute distress and well developed Orientation: alert, awake and oriented x3 Neck Neck: supple Resp Effort & Inspection: normal respiratory effort, able to speak in complete sentences and not labored Auscultation: clear to auscultation bilaterally and no wheezes Cardio Rate: regular rate Heart Sounds: S1 normal and S2 normal GI Inspection: normal to inspection (Abdominal bandage blood soaked.) and non- distended Palpation: soft, not firm, no guarding, not rigid and tender (mildly tender by incisions) in the RLQ (mild tenderness, no guarding or rebound) Auscultation: normal bowel sounds Extrem General: no edema DS: Data Vitals/I&O Vitals and I&O: Vital Signs Temp 37.0 C 12/25/17 07:47 Pulse 69 12/25/17 09:35 Resp 16 12/25/17 07:47 BP 125/80 12/25/17 09:35 Pulse Ox 98 12/25/17 07:47 Intake & Output 12/24/17 12/25/17 12/25/17 23:59 11:59 23:59 Intake Total 3330.000 / 3330.000 1288.75 / 1288.75 1481.25 / 1481.25 Output Total 700 / 700 Balance 2630.000 / 2630.000 1288.75 / 1288.75 1481.25 / 1481.25 Intake: IV 2060.000 / 2060.000 1168.75 / 1168.75 981.25 / 981.25 Oral 1270 / 1270 120 / 120 500 / 500 Output: Urine 700 / 700 Other: Urine Color Yellow Urine Appearance Clear Clear Urine Odor Normal Comment Void x1 in the toilet. voiding at [facility] [place] Voiding Methods Toilet Toilet Labs on day of discharge: Labs from last 24 hours 12/25/17 12/25/17 12/25/17 07:08 07:08 07:08 WBC 7.03 D RBC 3.64 L Hgb 10.6 L Hct 31.9 L MCV 87.6 MCH 29.1 MCHC 33.2 RDW 13.5 Plt Count 169 MPV 12.6 H Immature Gran % 0.1 Neutrophils % 66.8 Lymphocytes % 23.9 Monocytes % 9.0 Eosinophils % 0.1 Basophils % 0.1 Absolute Neutrophils 4.70 Absolute Lymphocytes 1.68 Absolute Monocytes 0.63 Absolute Eosinophils 0.01 Absolute Basophils 0.01 PT 26.7 H INR 2.8 Sodium 138 Potassium 4.0 Chloride 109 H Carbon Dioxide 26.2 Anion Gap 2.8 L BUN 12 Creatinine 1.01 Estimated GFR/1.73 m2 >= 60.00 Glucose 88 Calcium 7.5 L Preliminary micro results at discharge 12/23/17 19:20 Blood Culture - Preliminary Blood NO GROWTH 24 HOURS 12/23/17 19:10 Blood Culture - Preliminary Blood NO GROWTH 24 HOURS Date of service: 12/25/17 Time of Service: 14:27
== END 2017-12-25 16:16 | disposition home or self-care (01) ==
LOC: ER 15:09 → MS 16:18
PROVIDERS: Surgery; Admitting Provider Internal Medicine; Emergency Provider Physician Assistant; PCP Family Medicine; Visit Provider Internal Medicine
PROC: 0DTJ4ZZ Resection of Appendix, Percutaneous Endoscopic Approach (ICD-10-PCS; CPT 44970; principal; 2017-12-24 02:00)
DX: R10.31 Right lower quadrant pain (principal); R10.823 Right lower quadrant rebound abdominal tenderness; N83.8 Other noninflammatory disorders of ovary, fallopian tube and broad ligament; D68.51 Activated protein C resistance; Z79.01 Long term (current) use of anticoagulants; Z86.718 Personal history of other venous thrombosis and embolism
CPT/HCPCS: 44970; 58661; 36415; 80048; 80053; 83690; 86850; 86900; 86901; 87040; 88305; 94640; 96361; 96365; 96375; 96376; 99213; 99219; 99225; 99232; 99239; 99252; 99285; J3490; NC; 74177; 81003; 81015; 83735; 85025; 85610; 88304; 99217; 99284; G0378; J0131; J1100; J1200; J1335; J1650; J1885; J2060; J2405; J2765; P9059; Q9967

== ENCOUNTER 2017-12-28 12:32 | Outpatient (CLI) | payer MEDICARE, MEDICAID, SELFPAY ==
[2017-12-28 14:59] LABS: INR 3.2 (1.0-3.5); Prothrombin Time 30.1 sec (9.3-10.8)
== END 2017-12-28 12:52 ==
PROVIDERS: PCP Family Medicine; Visit Provider Family Medicine
DX: I82.91 Chronic embolism and thrombosis of unspecified vein (principal); Z79.01 Long term (current) use of anticoagulants
CPT/HCPCS: 36415; 85610

== ENCOUNTER 2018-01-11 09:51 | Outpatient (CLI) | payer MEDICARE, MEDICAID, SELFPAY ==
[2018-01-11 11:24] LABS: INR 3.2 (1.0-3.5); Prothrombin Time 30.3 sec (9.3-10.8)
== END 2018-01-11 10:11 ==
PROVIDERS: PCP Family Medicine; Visit Provider Family Medicine
DX: I82.91 Chronic embolism and thrombosis of unspecified vein (principal); Z79.01 Long term (current) use of anticoagulants
CPT/HCPCS: 36415; 85610

== ENCOUNTER 2018-01-11 12:57 | Outpatient (REF) | payer MEDICARE, MEDICAID, SELFPAY ==
[2018-01-11 14:13] LABS: Bilirubin Negative (Negative); Blood Trace-lysed (Negative); Clarity Cloudy; Glucose Negative (Negative); Ketones Trace mg/dL (Negative); Leukocyte Esterase Negative (Negative); Nitrite Negative (Negative); Specific Gravity >= 1.030 (1.005-1.025); Urobilinogen 0.2 EU/dL (Up TO 0.2)
[2018-01-11 14:36] LABS: C & S Indicated? C&S Done As Ordered
[2018-01-11 14:37] LABS: Crystals Many Amorphous HPF (Negative)
== END 2018-01-11 13:17 ==
LOC: LBN 12:57
PROVIDERS: PCP Family Medicine; Visit Provider Surgery
DX: R10.9 Unspecified abdominal pain (principal); R35.0 Frequency of micturition; R30.0 Dysuria; Z48.89 Encounter for other specified surgical aftercare
CPT/HCPCS: 81003; 81015; 87086

== ENCOUNTER 2018-02-10 13:26 | Outpatient (CLI) | payer MEDICARE, MEDICAID, SELFPAY ==
[2018-02-10 14:19] LABS: INR 3.2 (1.0-3.5); Prothrombin Time 29.7 sec (9.3-10.8)
== END 2018-02-10 13:46 ==
PROVIDERS: PCP Family Medicine; Visit Provider Family Medicine
DX: I82.91 Chronic embolism and thrombosis of unspecified vein (principal); Z79.01 Long term (current) use of anticoagulants
CPT/HCPCS: 36415; 85610

== ENCOUNTER 2018-02-19 11:51 | Outpatient (CLI) | payer MEDICARE, MEDICAID, SELFPAY ==
[2018-02-19 16:04] LABS: Prothrombin Time 42.4 sec (9.3-10.8)
[2018-02-19 16:33] LABS: INR 4.6 (1.0-3.5)
== END 2018-02-19 12:11 ==
PROVIDERS: PCP Family Medicine; Visit Provider Family Medicine
DX: I82.91 Chronic embolism and thrombosis of unspecified vein (principal); Z79.01 Long term (current) use of anticoagulants
CPT/HCPCS: 36415; 85610

== ENCOUNTER 2018-02-26 12:30 | Outpatient (CLI) | payer MEDICARE, MEDICAID, SELFPAY ==
[2018-02-26 14:32] LABS: INR 1.4 (1.0-3.5); Prothrombin Time 13.1 sec (9.3-10.8)
== END 2018-02-26 12:50 ==
PROVIDERS: PCP Family Medicine; Visit Provider Family Medicine
DX: I82.91 Chronic embolism and thrombosis of unspecified vein (principal); Z79.01 Long term (current) use of anticoagulants
CPT/HCPCS: 36415; 85610

== ENCOUNTER 2018-03-18 12:34 | Outpatient (CLI) | payer MEDICARE, MEDICAID, SELFPAY ==
[2018-03-18 13:37] LABS: Prothrombin Time 51.3 sec (9.3-10.8)
[2018-03-18 13:46] LABS: INR 5.6 (1.0-3.5)
== END 2018-03-18 12:54 ==
PROVIDERS: PCP Family Medicine; Visit Provider Family Medicine
DX: I82.91 Chronic embolism and thrombosis of unspecified vein (principal); Z79.01 Long term (current) use of anticoagulants
CPT/HCPCS: 36415; 85610

== ENCOUNTER 2018-04-05 01:55 | Outpatient (CLI) | payer MEDICARE, MEDICAID, SELFPAY ==
[2018-04-05 12:46] LABS: Prothrombin Time 50.1 sec (9.3-11.0)
[2018-04-05 13:07] LABS: INR 4.9 (1.0-3.5)
== END 2018-04-05 02:15 ==
PROVIDERS: PCP Family Medicine; Visit Provider Family Medicine
DX: I82.91 Chronic embolism and thrombosis of unspecified vein (principal); Z79.01 Long term (current) use of anticoagulants
CPT/HCPCS: 36415; 85610

== ENCOUNTER 2018-05-20 10:52 | Outpatient (CLI) | payer MEDICARE, MEDICAID, SELFPAY ==
[2018-05-20 17:25] LABS: Prothrombin Time > 83.4 sec (9.3-11.0)
== END 2018-05-20 11:12 ==
PROVIDERS: PCP Family Medicine; Visit Provider Family Medicine
DX: I82.91 Chronic embolism and thrombosis of unspecified vein (principal); Z79.01 Long term (current) use of anticoagulants
CPT/HCPCS: 36415; 85610

== ENCOUNTER 2018-05-21 09:13 | Outpatient (CLI) | payer MEDICARE, MEDICAID, SELFPAY ==
[2018-05-21 11:18] LABS: Prothrombin Time > 83.4 sec (9.3-11.0)
== END 2018-05-21 09:33 ==
PROVIDERS: PCP Family Medicine; Visit Provider Family Medicine
DX: I82.91 Chronic embolism and thrombosis of unspecified vein (principal); Z79.01 Long term (current) use of anticoagulants
CPT/HCPCS: 36415; 85610

== ENCOUNTER 2018-05-22 10:38 | Emergency (ER) | payer MEDICARE, MEDICAID, SELFPAY ==
--- NOTE | 2018-05-22 10:52 | NUR.NOTE ---
910 pain on right flank starting 0100 with cloddy urine pt has history of kiddy stones x3 in the past described the pain as the same.... NOTE pt takes Coumadin and INR taken yesterday was 8 and is currently holding Coumadin Nursing Note:
[2018-05-22 10:55] VITALS: BP 109/86; PULSE 72; RESP 15; TEMP 37.6; O2SAT 97
[2018-05-22 12:02] LABS: Bilirubin Moderate (Negative); Blood Moderate (Negative); Clarity Clear; Glucose Negative (Negative); Ketones Trace mg/dL (Negative); Leukocyte Esterase Negative (Negative); Nitrite Negative (Negative); Specific Gravity 1.025 (1.005-1.025); pH 6.5 (5-8)
[2018-05-22 12:08] LABS: Abs Immature Grans 0.01 k/cumm (0.0-0.09); Absolute Basophil Count 0.01 k/cumm (0.0-0.2); Absolute Eosinophil Count 0.21 k/cumm (0.0-0.7); Absolute Lymphocyte Count 1.19 k/cumm (1.2-3.4); Absolute Monocyte Count 0.76 k/cumm (0.11-0.7); Absolute Neutrophil Count 7.06 k/cumm (1.2-6.7); Basophils % 0.1; Eosinophils % 2.3; HCT 43.7 % (36.0-46.0); HGB 15.2 g/dL (12.0-15.5); Immature Grans % 0.1; Lymphocytes % 12.9; Mean Corp. HGB Concentration 34.8 g/dL (32.0-36.0); Mean Corpuscular Hemoglobin 28.5 pg (27.0-33.0); Mean Corpuscular Volume 81.8 fL (80-95); Mean Platelet Volume 11.4 fL (8.0-11.0); Monocytes % 8.2; Neutrophils % 76.4; Platelet Count 207 x1000/uL (130-400); RBC 5.34 m/cumm (4.00-5.20); RBC Distribution Width 14.4 % (11.7-14.6); White Blood Cell Count 9.24 k/cumm (4.4-10.8)
[2018-05-22 12:15] LABS: Bacteria Few HPF (Negative); C & S Indicated? No/Sq. Contamination; Casts Negative LPF (Negative); Crystals Mod Calcium Oxalate HPF (Negative); Epithelial Cells Many HPF (Negative); Mucus Heavy (Negative); WBC Negative HPF (0-5)
[2018-05-22 12:23] LABS: ALT 16 U/L (12-78); AST 11 U/L (15-37); Albumin 4.4 g/dL (3.4-5.0); Alkaline Phosphatase 50 U/L (46-116); Anion Gap 8.4 mmol/L (3-11); BUN 10 mg/dL (7-18); Bilirubin, Total 0.9 mg/dL (0.2-1.0); CO2 30.6 mmol/L (21.0-32.0); Calcium 9.2 mg/dL (8.5-10.1); Chloride 106 mmol/L (98-107); Glucose 97 mg/dL (70-100); Magnesium 2.1 mg/dL (1.8-2.4); Potassium 3.5 mmol/L (3.5-5.1); Sodium 145 mmol/L (136-145); Total Protein 7.6 g/dL (6.4-8.2)
[2018-05-22 12:24] LABS: Troponin I < 0.02 ng/mL (0.00-0.06)
--- NOTE | 2018-05-22 12:24 | ED.GENADUL_ITS ---
Discharge Plan Disposition Patient Disposition: HOME Condition: Improving Discharge Details Chief Complaint: FlankPain Clinical Impression: Supratherapeutic INR, Flank pain, Abdominal pain, Nausea Primary Care Provider: Jonny Pettit ED Provider: Liliana Ku Home Meds and New Rx's Prescriptions: Continued fluconazole [Diflucan] 100 mg tablet 100 mg PO DAILY Qty: 7 RF: 0 Citracal + Bone Density 1 EACH tablet 1 ea PO BID RF: 0 cyproheptadine 4 MG tablet 4 mg PO HS Qty: 90 RF: 3 ipratropium-albuterol 3 ML solution for nebulization 3 ml Inhalation Q4H PRN MDD 6 times PRNQty: 1 RF: 0 omeprazole 40 MG capsule,delayed release(DR/EC) 40 mg PO DAILY PRNQty: 90 RF: 3 metoclopramide HCl 5 MG/1 ML solution 10 mg IM ONCE Qty: 1 RF: 0 fexofenadine 180 MG tablet 180 mg PO DAILY Qty: 90 RF: 4 epinephrine [EpiPen 2-Nino] 0.3 MG/0.3 ML auto-injector 0.3 mg IM ONCE Qty: 1 RF: 1 warfarin [Coumadin] 5 MG tablet 0 - 10 mg PO HS PRN 90 Days Qty: 100 RF: 3 ketorolac 5 ML drops 1 drp Ophthalmic QID PRNQty: 5 RF: 3 triamcinolone acetonide 15 GM cream Topical BID PRNQty: 60 RF: 0 levothyroxine [Synthroid] 100 mcg tablet 100 mcg PO QPM Qty: 90 RF: 4 clotrimazole-betamethasone [Lotrisone] 1-0.05 % cream 1 applic Topical BID Qty: 45 RF: 1 sumatriptan succinate 6 mg/0.5 mL pen injector 6 mg subcut As directed MDD 12 mg Qty: 8 RF: 5 ProAir HFA 90 mcg/actuation HFA aerosol inhaler 2 puff Inhalation Q6H PRN MDD 6 puffs Qty: 3 RF: 4 Flovent HFA 220 mcg/actuation HFA aerosol inhaler 2 inh Inhalation BID Qty: 3 RF: 4 clonazepam 1 mg tablet 1 mg PO TID PRN (Reason: anxiety) Qty: 90 RF: 2 topiramate [Topamax] 200 mg tablet 400 mg PO HS Qty: 180 RF: 4 hydrocodone-acetaminophen 7.5-325 mg tablet 1 tab PO TID PRN MDD 3 tabs PRN (Reason: pain) Qty: 76 RF: 0 methylphenidate HCl 20 mg tablet 20 mg PO TID MDD 60 mg Qty: 84 RF: 0 albuterol sulfate 1.25 mg/3 mL solution for nebulization 1.25 mg Inhalation Q6H PRN (Reason: shortness of breath or wheezing) Qty: 75 RF: 3 Space Chamber Plus 1 EACH spacer 1 ea Miscellaneous Q4H PRN PRNQty: 1 RF: 0 Narcan 4 MG spray,non-aerosol 4 mg NS DAILY PRN PRNQty: 2 RF: 0 Latuda 20 mg Tablet 20 mg PO DAILY RF: 0 Discharge Instructions Instructions: Acute Nausea and Vomiting (ED), Abdominal Pain (ED), Flank Pain (ED) Additional Instructions: Hold your Coumadin dose tonight and tomorrow night and return to the hospital on Thursday morning for a repeat INR. Follow-up with your primary care doctor for results of your INR. Return immediately to the emergency department if you have any worsening or new concerning symptoms such as bleeding, leg pain, or shortness of breath. Discharge Data Discharge Date/Time-TO BE ENTERED AT DEPARTURE: 05/22/18 17:13 Discharge Physician: Liliana Ku Medical Decision Making 38-year-old female with history of asthma, kidney stones and migraines, DVT and facto V leiden on coumadin who presents for right-sided flank pain with radiation to right upper quadrant since yesterday afternoon. Admits to nausea but denies any vomiting, fever, urinary symptoms. She states her last recent INR check was 8 and was advised by her PCP to hold coumadin for the past 2 days. She denies any other sources of bleeding. Vitals within normal limits. Patient appears uncomfortable. No CVA tenderness. Right upper quadrant tenderness otherwise abdomen soft without rebound, rigidity or guarding. Differential diagnosis includes nephrolithiasis, small bowel obstruction, gastroenteritis. Patient has a history of appendectomy and cholecystectomy. Will place an IV, labs, morphine, urinalysis, fluids, and CT renal colic. 1640 --labs reviewed and note an INR of 8.2. Patient's INR for the past 2 days was 8.2, even with holding 2 doses of Coumadin. Patient has no acute sources of bleeding. She has 5-10 RBCs in the urine but no evidence of infection, with normal hemoglobin, and no complaint of epistaxis, vaginal or rectal bleeding. Remainder of labs unremarkable. Normal white blood cell count, electrolytes, renal function as well as troponin. Her CT abdomen and pelvis was negative for any acute abnormality. Patient states she feels better after pain meds and feels good to go home. As her INR has not changed with holding 2 doses of Coumadin, discussed administering vitamin K and patient would like to do this. Dose of 2.5 mg p.o. given. Patient states she has plans to hold her Coumadin for the next 2 nights, and then a lab order from her PCP to recheck her INR on Thursday morning. She is instructed to follow this as directed and follow-up with her PCP for the INR results. She is instructed to return here at any time with signs of bleeding, symptoms of leg pain, shortness of breath or any other acute concerns. Pt admits to Latuda but denies any new meds, foods. Review of latuda does not note an interaction of latuda with coumadin. Medical Records Medical records reviewed: Yes I reviewed the patient's medical records. Imaging Data Radiologic Study: Radiologist's impression: CT Abdomen and Pelvis Without Contrast FINDINGS: Limitations: Evaluation is somewhat limited by lack of IV contrast. Lower thorax: The visualized lung bases demonstrate minor dependent atelectasis. ABDOMEN: Liver: The incompletely included liver again contains some cysts. It appears otherwise grossly unremarkable. Gallbladder and bile ducts: Cholecystectomy clips are again present. Pancreas: The partially included pancreas appears grossly unremarkable. Spleen: The partially included spleen appears grossly unremarkable. Adrenals: Grossly unremarkable. Kidneys and ureters: There is no hydronephrosis, and no renal or ureteral calculus is identified. The kidneys appear grossly unremarkable. Stomach and bowel: The unopacified small bowel is not significantly distended to suggest obstruction. The large bowel is grossly unremarkable in appearance. Appendix: There appears to have been interval appendectomy. PELVIS: Bladder: Unremarkable as visualized. Reproductive: No gross adnexal abnormality is apparent, but ultrasound would be more appropriate in this regard. ABDOMEN and PELVIS: Intraperitoneal space: Normal. No free air. No significant fluid collection. Bones/joints: The visualized bony structures appear acutely unremarkable. Soft tissues: A small fat-containing umbilical hernia is again present. Vasculature: Normal. No abdominal aortic aneurysm. Lymph nodes: No gross pathologic lymphadenopathy. IMPRESSION: No hydronephrosis, renal or ureteral calculus or other gross acute abnormality identified. Depending on suspected etiology of symptoms, consider a targeted ultrasound or contrast enhanced exam. Lab Data Lab results reviewed: Yes I reviewed the patient's lab results. Laboratory Tests Range/Units 05/22/18 05/22/18 05/22/18 11:49 12:00 12:00 WBC (4.4-10.8) k/cumm 9.24 RBC (4.00-5.20) m/cumm 5.34 H Hgb (12.0-15.5) g/dL 15.2 Hct (36.0-46.0) % 43.7 MCV (80-95) fL 81.8 MCH (27.0-33.0) pg 28.5 MCHC (32.0-36.0) g/dL 34.8 RDW (11.7-14.6) % 14.4 Plt Count (130-400) x1000/uL 207 MPV (8.0-11.0) fL 11.4 H Immature Gran % 0.1 Neutrophils % 76.4 Lymphocytes % 12.9 Monocytes % 8.2 Eosinophils % 2.3 Basophils % 0.1 Absolute Neutrophils (1.2-6.7) k/cumm 7.06 H Absolute Lymphocytes (1.2-3.4) k/cumm 1.19 L Absolute Monocytes (0.11-0.7) k/cumm 0.76 H Absolute Eosinophils (0.0-0.7) k/cumm 0.21 Absolute Basophils (0.0-0.2) k/cumm 0.01 PT (9.3-11.0) sec INR (0.9-1.1) APTT (21.0-31.4) sec Sodium (136-145) mmol/L 145 Potassium (3.5-5.1) mmol/L 3.5 Chloride (98-107) mmol/L 106 Carbon Dioxide (21.0-32.0) mmol/L 30.6 Anion Gap (3-11) mmol/L 8.4 BUN (7-18) mg/dL 10 Creatinine (0.55-1.02) mg/dL 1.00 Estimated GFR/1.73 m2 (mL/min/1.73m2) >= 60.00 Glucose (70-100) mg/dL 97 Calcium (8.5-10.1) mg/dL 9.2 Magnesium (1.8-2.4) mg/dL 2.1 Total Bilirubin (0.2-1.0) mg/dL 0.9 AST (15-37) U/L 11 L ALT (12-78) U/L 16 Alkaline Phosphatase (46-116) U/L 50 Troponin I (0.00-0.06) ng/mL < 0.02 Total Protein (6.4-8.2) g/dL 7.6 Albumin (3.4-5.0) g/dL 4.4 Urine Color (Yellow) Yellow Urine Clarity Clear Urine pH (5-8) 6.5 Ur Specific [place] (1.005-1.025) 1.025 Urine Protein (Negative) mg/dL 30 H Urine Ketones (Negative) mg/dL Trace H Urine Blood (Negative) Moderate H Urine Nitrite (Negative) Negative Urine Bilirubin (Negative) Moderate H Urine Urobilinogen (Up TO 0.2) EU/dL 1.0 H Ur Leukocyte Esterase (Negative) Negative Urine RBC (0-2) 5-10 H Urine WBC (0-5) HPF Negative Ur Epithelial Cells (Negative) HPF Many Urine Crystals (Negative) HPF Mod calcium oxalate Urine Bacteria (Negative) HPF Few Urine Casts (Negative) LPF Negative Urine Mucus (Negative) Heavy Ur Culture Indicated? No/sq. contamination Urine Glucose (Negative) mg/dL Negative Range/Units 05/22/18 12:00 WBC (4.4-10.8) k/cumm RBC (4.00-5.20) m/cumm Hgb (12.0-15.5) g/dL Hct (36.0-46.0) % MCV (80-95) fL MCH (27.0-33.0) pg MCHC (32.0-36.0) g/dL RDW (11.7-14.6) % Plt Count (130-400) x1000/uL MPV (8.0-11.0) fL Immature Gran % Neutrophils % Lymphocytes % Monocytes % Eosinophils % Basophils % Absolute Neutrophils (1.2-6.7) k/cumm Absolute Lymphocytes (1.2-3.4) k/cumm Absolute Monocytes (0.11-0.7) k/cumm Absolute Eosinophils (0.0-0.7) k/cumm Absolute Basophils (0.0-0.2) k/cumm PT (9.3-11.0) sec > 83.4 H INR (0.9-1.1) > 8.2 H* APTT (21.0-31.4) sec 47.2 H Sodium (136-145) mmol/L Potassium (3.5-5.1) mmol/L Chloride (98-107) mmol/L Carbon Dioxide (21.0-32.0) mmol/L Anion Gap (3-11) mmol/L BUN (7-18) mg/dL Creatinine (0.55-1.02) mg/dL Estimated GFR/1.73 m2 (mL/min/1.73m2) Glucose (70-100) mg/dL Calcium (8.5-10.1) mg/dL Magnesium (1.8-2.4) mg/dL Total Bilirubin (0.2-1.0) mg/dL AST (15-37) U/L ALT (12-78) U/L Alkaline Phosphatase (46-116) U/L Troponin I (0.00-0.06) ng/mL Total Protein (6.4-8.2) g/dL Albumin (3.4-5.0) g/dL Urine Color (Yellow) Urine Clarity Urine pH (5-8) Ur Specific [place] (1.005-1.025) Urine Protein (Negative) mg/dL Urine Ketones (Negative) mg/dL Urine Blood (Negative) Urine Nitrite (Negative) Urine Bilirubin (Negative) Urine Urobilinogen (Up TO 0.2) EU/dL Ur Leukocyte Esterase (Negative) Urine RBC (0-2) Urine WBC (0-5) HPF Ur Epithelial Cells (Negative) HPF Urine Crystals (Negative) HPF Urine Bacteria (Negative) HPF Urine Casts (Negative) LPF Urine Mucus (Negative) Ur Culture Indicated? Urine Glucose (Negative) mg/dL HPI General Mode of arrival: ambulatory . Date/Time Provider Initiated Documentation: 05/22/18 11:18 . Limitations to Documentation: no limitations . Information obtained by: patient . HPI Narrative: Patient is a 38-year-old female with multiple medical problems including asthma, depression, GERD, hypothyroidism, kidney stones, migraines, DVT and factor V [place] on Coumadin with a history of cholecystectomy, hysterectomy and appendectomy who presents with right flank pain with radiation to right upper quadrant since yesterday. States the pain feels consistent with her previous kidney stones. States her last kidney stone was over a year ago. She admits to nausea but denies any vomiting. She denies any fever or urinary symptoms. Related Data Home Medications Medication Instructions Recorded Confirmed Citracal + Bone Density 1 ea PO BID tab-cap 11/09/12 05/22/18 Space Chamber Plus #1 spacer 05/01/14 05/22/18 cyproheptadine 4 mg PO HS #90 tab-cap 06/04/16 05/22/18 Narcan 4 mg NS DAILY PRN PRN #2 spray 12/08/16 05/22/18 ipratropium-albuterol 3 ml INHALATION Q4H PRN PRN #1 box 01/23/17 05/22/18 MDD 6 times omeprazole 40 mg PO DAILY PRN #90 cap 07/28/17 05/22/18 metoclopramide HCl 10 mg IM ONCE #1 ml 08/05/17 05/22/18 fexofenadine 180 mg PO DAILY #90 tab-cap 08/10/17 05/22/18 epinephrine [EpiPen 2-Nino] 0.3 mg IM ONCE #1 ea 09/17/17 05/22/18 warfarin [Coumadin] 0 - 10 mg PO HS PRN 90 Days #100 10/06/17 05/22/18 tab-cap ketorolac 1 drp OPHTHALMIC QID PRN #5 ml 10/08/17 05/22/18 triamcinolone acetonide 0 gm TOPICAL BID PRN #60 g 10/16/17 05/22/18 fluconazole 100 mg tablet 100 mg PO DAILY #7 tab 01/11/18 05/22/18 levothyroxine 100 mcg tablet 100 mcg PO QPM #90 tab 02/15/18 05/22/18 clotrimazole-betamethasone 1 1 applic TOPICAL BID #45 gm 03/05/18 05/22/18 %-0.05 % topical cream sumatriptan 6 mg/0.5 mL 6 mg SUBCUT As directed #8 pen MDD 04/27/18 05/22/18 subcutaneous pen injector 12 mg albuterol sulfate HFA 90 2 puff INHALATION Q6H PRN #3 04/29/18 05/22/18 mcg/actuation aerosol inhaler inhaler MDD 6 puffs fluticasone 220 mcg/actuation HFA 2 inh INHALATION BID #3 inhaler 04/29/18 05/22/18 aerosol inhaler clonazepam 1 mg tablet 1 mg PO TID PRN #90 tab 04/30/18 05/22/18 topiramate 200 mg tablet 400 mg PO HS #180 tab 04/30/18 05/22/18 hydrocodone 7.5 mg-acetaminophen 1 tab PO TID PRN PRN #76 tab MDD 3 05/13/18 05/22/18 325 mg tablet tabs methylphenidate 20 mg tablet 20 mg PO TID #84 tab-cap MDD 60 mg 05/13/18 05/22/18 albuterol sulfate 1.25 mg/3 mL 1.25 mg INHALATION Q6H PRN #75 ml 05/20/18 05/22/18 solution for nebulization Latuda 20 mg PO DAILY 05/22/18 05/22/18 Previous Rx's Medication Instructions Recorded Space Chamber Plus #1 spacer 05/01/14 Narcan 4 mg NS DAILY PRN PRN #2 spray 12/08/16 metoclopramide HCl 10 mg IM ONCE #1 ml 08/05/17 fexofenadine 180 mg PO DAILY #90 tab-cap 08/10/17 epinephrine [EpiPen 2-Nino] 0.3 mg IM ONCE #1 ea 09/17/17 warfarin [Coumadin] 0 - 10 mg PO HS PRN 90 Days #100 10/06/17 tab-cap fluconazole 100 mg tablet 100 mg PO DAILY #7 tab 01/11/18 levothyroxine 100 mcg tablet 100 mcg PO QPM #90 tab 02/15/18 clotrimazole-betamethasone 1 1 applic TOPICAL BID #45 gm 03/05/18 %-0.05 % topical cream sumatriptan 6 mg/0.5 mL 6 mg SUBCUT As directed #8 pen MDD 04/27/18 subcutaneous pen injector 12 mg albuterol sulfate HFA 90 2 puff INHALATION Q6H PRN #3 04/29/18 mcg/actuation aerosol inhaler inhaler MDD 6 puffs fluticasone 220 mcg/actuation HFA 2 inh INHALATION BID #3 inhaler 04/29/18 aerosol inhaler clonazepam 1 mg tablet 1 mg PO TID PRN #90 tab 04/30/18 topiramate 200 mg tablet 400 mg PO HS #180 tab 04/30/18 hydrocodone 7.5 mg-acetaminophen 1 tab PO TID PRN PRN #76 tab MDD 3 05/13/18 325 mg tablet tabs methylphenidate 20 mg tablet 20 mg PO TID #84 tab-cap MDD 60 mg 05/13/18 albuterol sulfate 1.25 mg/3 mL 1.25 mg INHALATION Q6H PRN #75 ml 05/20/18 solution for nebulization Allergies Allergy/AdvReac Type Severity Reaction Status Date / Time aripiprazole [From Abilify] Allergy Severe Rash, hives Verified 05/22/18 10:57 doxycycline Allergy Severe Anaphylaxsi Verified 05/22/18 10:57 s levetiracetam [From Keppra] Allergy Severe RASH/HIVES Verified 05/22/18 10:57 sulfamethoxazole Allergy Severe Hives Verified 05/22/18 10:57 venom-honey bee Allergy Severe unknown Verified 05/22/18 10:57 Penicillins Allergy Intermediate Skin Rash Verified 05/22/18 10:57 chlorhexidine Allergy Unknown unknown Verified 05/22/18 10:57 Sulfa (Sulfonamide Allergy Verified 05/22/18 10:57 Antibiotics) mold AdvReac Severe Wheezing Verified 05/22/18 10:57 oxycodone [Oxycodone] AdvReac Severe vomits Verified 05/22/18 10:57 paroxetine AdvReac Severe Irritability Verified 05/22/18 10:57 and anger dicloxacillin [Dicloxacillin] AdvReac Mild Nausea Verified 05/22/18 10:57 gabapentin AdvReac Mild hives Unverified 05/22/18 10:57 verapamil [Verapamil] AdvReac Worsening Unverified 05/22/18 10:57 migraine nuts Allergy Severe Anaphylaxsi Uncoded 05/22/18 10:57 s General Stated Complaint: FlankPain RYNE: 3 Review of Systems Review of Systems All systems reviewed & are unremarkable except as noted in HPI and below Constitutional Reports as per HPI, Denies chills and Denies fever(s) Eyes Denies blurry vision ENT Denies dizziness, Denies sore throat and Denies throat swelling Cardiovascular Denies chest pain and Denies dyspnea Respiratory Denies cough and Denies dyspnea Gastrointestinal Denies abdominal pain, Denies diarrhea, Reports nausea and Denies vomiting Genitourinary Denies hematuria, Denies dysuria and Reports flank pain Musculoskeletal Reports back pain and Denies numbness Integumentary/Breasts Denies lesions and Denies rash Neurologic Denies dizziness, Denies focal weakness and Denies numbness Allergic/Immunologic Denies throat swelling [facility] Medical History Right lower quadrant abdominal pain (Resolved) Migraine headache without aura (Chronic) Intractable vomiting (Resolved) Cannabis abuse with cannabis-induced disorder (Chronic) B12 deficiency (Chronic) Factor V Leiden mutation (Chronic) History of DVT (deep vein thrombosis) (Chronic) Intractable vomiting with nausea (Acute) Asthma (Chronic) Chronic anticoagulation (Chronic) Depression (Chronic) Factor V Leiden (Chronic) GERD (gastroesophageal reflux disease) (Chronic) Hypothyroidism (Chronic) Migraine headache (Chronic) Nephrolithiasis (Chronic) Recurrent deep vein thrombosis (DVT) (Chronic) Cellulitis (Resolved) Cyst of fallopian tube (Resolved) Surgical History S/P appendectomy (Acute 12/24/17) Abdominal hysterectomy (~2009) Arthroplasty of knee (~1999) Bilateral salpingectomy with oophorectomy (~2008) Cervical Conization/LEEP Cholecystectomy THUMB RECONSTRUCTION Social History Smoking/Tobacco Use Status: Never alcohol intake: current alcohol intake frequency: 0-2 drinks per day substance use type: marijuana Exam Const General: cooperative and healthy appearing Orientation: alert and awake HENMT Head: normal to inspection Ears: hearing grossly normal bilaterally and external ears normal General nose exam: external nose normal Face and sinus: normal facial exam Mouth: oral mucosae normal Eyes General: appearance normal, both eyes and all related structures Eyelids: eyelids normal EOM: EOM intact bilaterally Neck Neck: normal visual inspection Lymphatic: no lymphadenopathy noted Chest Chest: normal inspection of the chest Resp Effort & Inspection: normal respiratory effort and able to speak in complete sentences Auscultation: clear to auscultation bilaterally Cardio Rate: regular rate Rhythm: regular rhythm GI Inspection: normal to inspection Palpation: soft, not firm, no guarding, no hepatosplenomegaly, no masses and tender in the RUQ; not in the LLQ, not in the RLQ, not in the LUQ and with no rebound tenderness Auscultation: normal bowel sounds Back/Spine/Pelvis Back: no CVA tenderness Skin General skin exam: no rashes or lesions noted Neuro General: alert and awake Cognition: normal cognition Speech: speech normal Gait: normal gait Motor: muscle tone normal throughout Sensory Exam: no sensory deficits noted Extrem General: normal to inspection, full ROM, normal capillary refill and no edema Psych Appearance: grossly normal Mental Status: mental status grossly normal Speech and Movement: speech and movement normal Affect: normal affect Thought Process: normal Course Vital Signs Temperature 99.7 F H 05/22/18 10:55 Pulse 72 05/22/18 10:55 Respiratory Rate 15 05/22/18 10:55 Blood Pressure 109/86 05/22/18 10:55 Pulse Oximetry 97 05/22/18 10:55 Temperature 99.7 F H 05/22/18 10:55 Temperature Source Skin 05/22/18 10:55 Pulse 72 05/22/18 10:55 Respiratory Rate 15 05/22/18 10:55 Respiratory Effort 05/22/18 10:59 Blood Pressure 109/86 05/22/18 10:55 Blood Pressure Position Sitting 05/22/18 10:55 Pulse Oximetry 97 05/22/18 10:55 Oxygen Delivery Method Room Air 05/22/18 10:55 Oxygen Flow Rate 0 05/22/18 10:55 Pain Level 9 05/22/18 10:55 Lab/Test Results Lab/Test Results: Laboratory Tests Range/Units 05/22/18 05/22/18 05/22/18 11:49 12:00 12:00 WBC (4.4-10.8) k/cumm 9.24 RBC (4.00-5.20) m/cumm 5.34 H Hgb (12.0-15.5) g/dL 15.2 Hct (36.0-46.0) % 43.7 MCV (80-95) fL 81.8 MCH (27.0-33.0) pg 28.5 MCHC (32.0-36.0) g/dL 34.8 RDW (11.7-14.6) % 14.4 Plt Count (130-400) x1000/uL 207 MPV (8.0-11.0) fL 11.4 H Immature Gran % 0.1 Neutrophils % 76.4 Lymphocytes % 12.9 Monocytes % 8.2 Eosinophils % 2.3 Basophils % 0.1 Absolute Neutrophils (1.2-6.7) k/cumm 7.06 H Absolute Lymphocytes (1.2-3.4) k/cumm 1.19 L Absolute Monocytes (0.11-0.7) k/cumm 0.76 H Absolute Eosinophils (0.0-0.7) k/cumm 0.21 Absolute Basophils (0.0-0.2) k/cumm 0.01 Sodium (136-145) mmol/L 145 Potassium (3.5-5.1) mmol/L 3.5 Chloride (98-107) mmol/L 106 Carbon Dioxide (21.0-32.0) mmol/L 30.6 Anion Gap (3-11) mmol/L 8.4 BUN (7-18) mg/dL 10 Creatinine (0.55-1.02) mg/dL 1.00 Estimated GFR/1.73 m2 (mL/min/1.73m2) >= 60.00 Glucose (70-100) mg/dL 97 Calcium (8.5-10.1) mg/dL 9.2 Magnesium (1.8-2.4) mg/dL 2.1 Total Bilirubin (0.2-1.0) mg/dL 0.9 AST (15-37) U/L 11 L ALT (12-78) U/L 16 Alkaline Phosphatase (46-116) U/L 50 Troponin I (0.00-0.06) ng/mL < 0.02 Total Protein (6.4-8.2) g/dL 7.6 Albumin (3.4-5.0) g/dL 4.4 Urine Color (Yellow) Yellow Urine Clarity Clear Urine pH (5-8) 6.5 Ur Specific [place] (1.005-1.025) 1.025 Urine Protein (Negative) mg/dL 30 H Urine Ketones (Negative) mg/dL Trace H Urine Blood (Negative) Moderate H Urine Nitrite (Negative) Negative Urine Bilirubin (Negative) Moderate H Urine Urobilinogen (Up TO 0.2) EU/dL 1.0 H Ur Leukocyte Esterase (Negative) Negative Urine RBC (0-2) 5-10 H Urine WBC (0-5) HPF Negative Ur Epithelial Cells (Negative) HPF Many Urine Crystals (Negative) HPF Mod calcium oxalate Urine Bacteria (Negative) HPF Few Urine Casts (Negative) LPF Negative Urine Mucus (Negative) Heavy Ur Culture Indicated? No/sq. contamination Urine Glucose (Negative) mg/dL Negative
[2018-05-22 12:49] LABS: Prothrombin Time > 83.4 sec (9.3-11.0)
[2018-05-22 12:54] LABS: PTT Activated 47.2 sec (21.0-31.4)
--- NOTE | 2018-05-22 13:30 | DI.CT_ITS ---
SYMPTOM/DIAGNOSIS: RT FLANK PAIN, ? KIDNEY STONE RENAL COLIC CT: Comparison is made with 12/23/17. No hydronephrosis or urinary tract calculi are seen. The patient is status post appendectomy and hysterectomy. The ovaries are unremarkable. There is no bowel dilatation or inflammatory change. There is no free air or free fluid. The bladder as well as inferior portions of the liver and spleen are unremarkable. The adrenals and pancreas appear intact. The patient is status post cholecystectomy. IMPRESSION: No evidence of urinary tract calculi or hydronephrosis. No acute abnormality is identified.
[2018-05-22] MEDS: MORPHine 10 MG/ML VIAL (13:55)
--- NOTE | 2018-05-22 14:18 | DI.VRAD_ITS ---
EXAM: CT Abdomen and Pelvis Without Contrast EXAM DATE/TIME: 05/22/2018 12:24 PM CLINICAL HISTORY: 38 years old, female; Pain; Abdominal pain; Flank; Right; Prior surgery; Surgery date: 6+ months; Patient HX: Right flank pain x3 days, gross hematuria, HX of kidney stones. TECHNIQUE: Axial computed tomography images of the abdomen and pelvis without contrast. All CT scans at this facility use at least one of these dose optimization techniques: automated exposure control; mA and/or kV adjustment per patient size (includes targeted exams where dose is matched to clinical indication); or iterative reconstruction. Coronal and sagittal reformatted images were created and reviewed. COMPARISON: CT ABDOMEN PELVIS W 12/23/2017 7:23 PM FINDINGS: Limitations: Evaluation is somewhat limited by lack of IV contrast. Lower thorax: The visualized lung bases demonstrate minor dependent atelectasis. ABDOMEN: Liver: The incompletely included liver again contains some cysts. It appears otherwise grossly unremarkable. Gallbladder and bile ducts: Cholecystectomy clips are again present. Pancreas: The partially included pancreas appears grossly unremarkable. Spleen: The partially included spleen appears grossly unremarkable. Adrenals: Grossly unremarkable. Kidneys and ureters: There is no hydronephrosis, and no renal or ureteral calculus is identified. The kidneys appear grossly unremarkable. Stomach and bowel: The unopacified small bowel is not significantly distended to suggest obstruction. The large bowel is grossly unremarkable in appearance. Appendix: There appears to have been interval appendectomy. PELVIS: Bladder: Unremarkable as visualized. Reproductive: No gross adnexal abnormality is apparent, but ultrasound would be more appropriate in this regard. ABDOMEN and PELVIS: Intraperitoneal space: Normal. No free air. No significant fluid collection. Bones/joints: The visualized bony structures appear acutely unremarkable. Soft tissues: A small fat-containing umbilical hernia is again present. Vasculature: Normal. No abdominal aortic aneurysm. Lymph nodes: No gross pathologic lymphadenopathy. IMPRESSION: No hydronephrosis, renal or ureteral calculus or other gross acute abnormality identified. Depending on suspected etiology of symptoms, consider a targeted ultrasound or contrast enhanced exam. Dictated and Authenticated by: Lester Altamirano MD. Ordering:MARLON Ford MD
[2018-05-22] MEDS: Phytonadione 5 MG TABLET 2.5 MG PO (16:45)
[2018-05-22] MEDS: Promethazine 25 MG TAB PO (17:12)
== END 2018-05-22 17:13 | disposition home or self-care (01) ==
PROVIDERS: Emergency Provider Physician Assistant; PCP Family Medicine
DX: R79.1 Abnormal coagulation profile (principal); T45.515A Adverse effect of anticoagulants, initial encounter; Z79.01 Long term (current) use of anticoagulants; R10.9 Unspecified abdominal pain; R11.2 Nausea with vomiting, unspecified; Z86.718 Personal history of other venous thrombosis and embolism
CPT/HCPCS: 36415; 80053; 96374; 96376; 99284; 74176; 81003; 81015; 83735; 84484; 85025; 85610; 85730; J2270

== ENCOUNTER 2018-05-24 10:22 | Outpatient (CLI) | payer MEDICARE, MEDICAID, SELFPAY ==
[2018-05-24 12:05] LABS: INR 1.3 (0.9-1.1); Prothrombin Time 12.7 sec (9.3-11.0)
[2018-05-25 10:24] LABS: Hepatitis C Ab w Rflx HCV PCR Negative (NEGAT)
== END 2018-05-24 10:42 ==
PROVIDERS: PCP Family Medicine; Visit Provider Nurse Practitioner Family
DX: I82.91 Chronic embolism and thrombosis of unspecified vein (principal); Z79.01 Long term (current) use of anticoagulants; Z11.59 Encounter for screening for other viral diseases
CPT/HCPCS: 36415; 86803; 85610

== ENCOUNTER 2018-05-28 08:15 | Outpatient (CLI) | payer MEDICARE, MEDICAID, SELFPAY ==
[2018-05-28 12:32] LABS: INR 1.6 (0.9-1.1); Prothrombin Time 16.1 sec (9.3-11.0)
== END 2018-05-28 08:35 ==
PROVIDERS: PCP Family Medicine; Visit Provider Family Medicine
DX: I82.91 Chronic embolism and thrombosis of unspecified vein (principal); Z79.01 Long term (current) use of anticoagulants
CPT/HCPCS: 36415; 85610

== ENCOUNTER 2018-08-20 08:00 | Observation (INO) | payer MEDICARE, MEDICAID, SELFPAY ==
[2018-08-20] VITALS (14 sets, daily range): BP systolic 99–133; BP diastolic 57–95; PULSE 63–110; RESP 14–20; TEMP 35.6–38.2; O2SAT 97–100
--- NOTE | 2018-08-20 08:09 | W.ED.GENAD ---
Discharge Plan Disposition Patient Disposition: [facility] INPATIENT Condition: Stable Discharge Details Chief Complaint: Cellulitis Clinical Impression: Abscess of buttock, left Primary Care Provider: Jonny Pettit ED Provider: Frank Owusu Home Meds and New Rx's Prescriptions: No Action fluconazole [Diflucan] 100 mg tablet 100 mg PO DAILY Qty: 7 RF: 0 Citracal + Bone Density 1 EACH tablet 1 ea PO BID RF: 0 cyproheptadine 4 MG tablet 4 mg PO HS Qty: 90 RF: 3 ipratropium-albuterol 3 ML solution for nebulization 3 ml Inhalation Q4H PRN MDD 6 times PRNQty: 1 RF: 0 omeprazole 40 MG capsule,delayed release(DR/EC) 40 mg PO DAILY PRNQty: 90 RF: 3 metoclopramide HCl 5 MG/1 ML solution 10 mg IM ONCE Qty: 1 RF: 0 fexofenadine 180 MG tablet 180 mg PO DAILY Qty: 90 RF: 4 epinephrine [EpiPen 2-Nino] 0.3 MG/0.3 ML auto-injector 0.3 mg IM ONCE Qty: 1 RF: 1 warfarin [Coumadin] 5 MG tablet 0 - 10 mg PO HS PRN 90 Days Qty: 100 RF: 3 ketorolac 5 ML drops 1 drp Ophthalmic QID PRNQty: 5 RF: 3 triamcinolone acetonide 15 GM cream Topical BID PRNQty: 60 RF: 0 levothyroxine [Synthroid] 100 mcg tablet 100 mcg PO QPM Qty: 90 RF: 4 clotrimazole-betamethasone [Lotrisone] 1-0.05 % cream 1 applic Topical BID Qty: 45 RF: 1 sumatriptan succinate 6 mg/0.5 mL pen injector 6 mg subcut As directed MDD 12 mg Qty: 8 RF: 5 albuterol sulfate [ProAir HFA] 90 mcg/actuation HFA aerosol inhaler 2 puff Inhalation Q6H PRN MDD 6 puffs Qty: 3 RF: 4 Flovent HFA 220 mcg/actuation HFA aerosol inhaler 2 inh Inhalation BID Qty: 3 RF: 4 albuterol sulfate 1.25 mg/3 mL solution for nebulization 1.25 mg Inhalation Q6H PRN (Reason: shortness of breath or wheezing) Qty: 75 RF: 3 topiramate [Topamax] 200 mg tablet 400 mg PO HS Qty: 180 RF: 4 lorazepam 1 mg tablet 1 mg PO BID Qty: 60 RF: 0 sumatriptan succinate 4 mg/0.5 mL pen injector 4 mg SC Q1-4H PRN (Reason: migraine headache) Qty: 1 RF: 4 methylphenidate HCl 20 mg tablet 20 mg PO TID MDD 60 mg Qty: 84 RF: 0 hydrocodone-acetaminophen 7.5-325 mg tablet 1 tab PO TID PRN MDD 3 tabs PRN (Reason: pain) Qty: 70 RF: 0 Space Chamber Plus 1 EACH spacer 1 ea Miscellaneous Q4H PRN PRNQty: 1 RF: 0 Narcan 4 MG spray,non-aerosol 4 mg NS DAILY PRN PRNQty: 2 RF: 0 Latuda 20 mg Tablet 20 mg PO DAILY RF: 0 Medical Decision Making 38-year-old female presents from home with left buttock irritation, overlying cellulitis, and fluctuant mass. She has a borderline tachycardia but is afebrile. Concern for large versus tracking abscess. IV placed, labs obtained, patient given analgesia and fluids, referred for CT images. Her diagnostics are notable for an elevated white blood cell count of 16, severe cellulitis and phlegmonous mass of the deep left buttock. Seen in consultation by surgery, Dr. Machado, patient consented for operative incision and drainage. Blood cultures had been obtained and the patient was given parenteral antibiotics with clindamycin. HPI General Mode of arrival: ambulatory. Date/Time Provider Initiated Documentation: 08/20/18 08:01. Limitations to Documentation: no limitations. Information obtained by: patient. History of Present Illness 38 year old F presents to the emergency department with the chief complaint of L buttock boil x days, described as moderate, Quality is described as aching, and is localized to the left. Patient reports no radiation. Patient started experiencing this day(s) and it has been constant. No relieving factors improve symptom(s), No exacerbating factors reported . Patient notes other (drainage). Patient did receive the following treatments prior to arrival, none Related Data Home Medications Medication Instructions Recorded Confirmed Citracal + Bone Density 1 ea PO BID tab-cap 11/09/12 08/20/18 Space Chamber Plus #1 spacer 05/01/14 08/20/18 cyproheptadine 4 mg PO HS #90 tab-cap 06/04/16 08/20/18 Narcan 4 mg NS DAILY PRN PRN #2 spray 12/08/16 08/20/18 ipratropium-albuterol 3 ml INHALATION Q4H PRN PRN #1 box 01/23/17 08/20/18 MDD 6 times omeprazole 40 mg PO DAILY PRN #90 cap 07/28/17 08/20/18 metoclopramide HCl 10 mg IM ONCE #1 ml 08/05/17 08/20/18 fexofenadine 180 mg PO DAILY #90 tab-cap 08/10/17 08/20/18 epinephrine [EpiPen 2-Nino] 0.3 mg IM ONCE #1 ea 09/17/17 08/20/18 warfarin [Coumadin] 0 - 10 mg PO HS PRN 90 Days #100 10/06/17 08/20/18 tab-cap ketorolac 1 drp OPHTHALMIC QID PRN #5 ml 10/08/17 08/20/18 triamcinolone acetonide 0 gm TOPICAL BID PRN #60 g 10/16/17 08/20/18 fluconazole 100 mg tablet 100 mg PO DAILY #7 tab 01/11/18 08/20/18 levothyroxine 100 mcg tablet 100 mcg PO QPM #90 tab 02/15/18 08/20/18 clotrimazole-betamethasone 1 1 applic TOPICAL BID #45 gm 03/05/18 08/20/18 %-0.05 % topical cream sumatriptan 6 mg/0.5 mL 6 mg SUBCUT As directed #8 pen MDD 04/27/18 08/20/18 subcutaneous pen injector 12 mg albuterol sulfate HFA 90 2 puff INHALATION Q6H PRN #3 04/29/18 08/20/18 mcg/actuation aerosol inhaler inhaler MDD 6 puffs fluticasone propionate 220 2 inh INHALATION BID #3 inhaler 04/29/18 08/20/18 mcg/actuation HFA aerosol inhaler albuterol sulfate 1.25 mg/3 mL 1.25 mg INHALATION Q6H PRN #75 ml 05/20/18 08/20/18 solution for nebulization Latuda 20 mg PO DAILY 05/22/18 08/20/18 Topamax 200 mg tablet 400 mg PO HS #180 tab NS 06/08/18 08/20/18 lorazepam 1 mg tablet 1 mg PO BID #60 tab 06/22/18 08/20/18 sumatriptan 4 mg/0.5 mL 4 mg SC Q1-4H PRN #1 ml 07/23/18 08/20/18 subcutaneous pen injector hydrocodone 7.5 mg-acetaminophen 1 tab PO TID PRN PRN #70 tab MDD 3 08/18/18 08/20/18 325 mg tablet tabs methylphenidate 20 mg tablet 20 mg PO TID #84 tab-cap MDD 60 mg 08/18/18 08/20/18 Previous Rx's Medication Instructions Recorded Space Chamber Plus #1 spacer 05/01/14 Narcan 4 mg NS DAILY PRN PRN #2 spray 12/08/16 metoclopramide HCl 10 mg IM ONCE #1 ml 08/05/17 fexofenadine 180 mg PO DAILY #90 tab-cap 08/10/17 epinephrine [EpiPen 2-Nino] 0.3 mg IM ONCE #1 ea 09/17/17 warfarin [Coumadin] 0 - 10 mg PO HS PRN 90 Days #100 10/06/17 tab-cap fluconazole 100 mg tablet 100 mg PO DAILY #7 tab 01/11/18 levothyroxine 100 mcg tablet 100 mcg PO QPM #90 tab 02/15/18 clotrimazole-betamethasone 1 1 applic TOPICAL BID #45 gm 03/05/18 %-0.05 % topical cream sumatriptan 6 mg/0.5 mL 6 mg SUBCUT As directed #8 pen MDD 04/27/18 subcutaneous pen injector 12 mg albuterol sulfate HFA 90 2 puff INHALATION Q6H PRN #3 04/29/18 mcg/actuation aerosol inhaler inhaler MDD 6 puffs fluticasone propionate 220 2 inh INHALATION BID #3 inhaler 04/29/18 mcg/actuation HFA aerosol inhaler albuterol sulfate 1.25 mg/3 mL 1.25 mg INHALATION Q6H PRN #75 ml 05/20/18 solution for nebulization Topamax 200 mg tablet 400 mg PO HS #180 tab NS 06/08/18 lorazepam 1 mg tablet 1 mg PO BID #60 tab 03/05/19 sumatriptan 4 mg/0.5 mL 4 mg SC Q1-4H PRN #1 ml 07/23/18 subcutaneous pen injector hydrocodone 7.5 mg-acetaminophen 1 tab PO TID PRN PRN #70 tab MDD 3 08/18/18 325 mg tablet tabs methylphenidate 20 mg tablet 20 mg PO TID #84 tab-cap MDD 60 mg 08/18/18 Allergies Allergy/AdvReac Type Severity Reaction Status Date / Time aripiprazole [From Abilify] Allergy Severe Rash, hives Verified 08/20/18 08:08 doxycycline Allergy Severe Anaphylaxsi Verified 08/20/18 08:08 s levetiracetam [From Keppra] Allergy Severe RASH/HIVES Verified 08/20/18 08:08 sulfamethoxazole Allergy Severe Hives Verified 08/20/18 08:08 venom-honey bee Allergy Severe unknown Verified 08/20/18 08:08 Penicillins Allergy Intermediate Skin Rash Verified 08/20/18 08:08 chlorhexidine Allergy Unknown unknown Verified 08/20/18 08:08 Sulfa (Sulfonamide Allergy Verified 08/20/18 08:08 Antibiotics) mold AdvReac Severe Wheezing Verified 08/20/18 08:08 oxycodone [Oxycodone] AdvReac Severe vomits Verified 08/20/18 08:08 paroxetine AdvReac Severe Irritability Verified 08/20/18 08:08 and anger dicloxacillin [Dicloxacillin] AdvReac Mild Nausea Verified 08/20/18 08:08 gabapentin AdvReac Mild hives Unverified 08/20/18 08:08 verapamil [Verapamil] AdvReac Worsening Unverified 08/20/18 08:08 migraine nuts Allergy Severe Anaphylaxsi Uncoded 08/20/18 08:08 s General Stated Complaint: Cellulitis RYNE: 3 Review of Systems Review of Systems 6 systems reviewed and otherwise negative [facility] Medical History Panic disorder (Chronic 03/21/16) Hypothyroidism (Chronic) Gastroesophageal reflux disease with esophagitis (Chronic) Chronic back pain greater than 3 months duration (Chronic 12/29/14) Asthma (Chronic 11/08/12) Allergic rhinitis (Chronic 09/21/15) ADHD (attention deficit hyperactivity disorder), 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) Right lower quadrant abdominal pain (Resolved) Migraine headache without aura (Chronic) Intractable vomiting (Resolved) Cannabis abuse with cannabis-induced disorder (Chronic) B12 deficiency (Chronic) Factor V Leiden mutation (Chronic) History of DVT (deep vein thrombosis) (Chronic) Intractable vomiting with nausea (Acute) Asthma (Chronic) Chronic anticoagulation (Chronic) Depression (Chronic) Factor V Leiden (Chronic) GERD (gastroesophageal reflux disease) (Chronic) Hypothyroidism (Chronic) Migraine headache (Chronic) Nephrolithiasis (Chronic) Recurrent deep vein thrombosis (DVT) (Chronic) Cellulitis (Resolved) Cyst of fallopian tube (Resolved) Surgical History S/P appendectomy (Acute 12/24/17) 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) Abdominal hysterectomy (~2009) Arthroplasty of knee (~1999) Bilateral salpingectomy with oophorectomy (~2008) Cervical Conization/LEEP Cholecystectomy THUMB RECONSTRUCTION Social History Smoking/Tobacco Use Status: Never Alcohol Intake: current Alcohol Intake frequency: 0-2 drinks per day Drug use: Occasionally Substance use type: marijuana Do you feel safe at home: Yes Do you feel safe in your relationship?: Yes Exam Narrative Exam Narrative: GEN: awake, alert, oriented 3. Pleasant, well groomed, interactive. HEAD: Normocephalic, atraumatic ENT: Mucous membranes moist, oropharynx unremarkable, External ear exam unremarkable EYES: PERRL, EOMI NECK: Full ROM, no ISATU, no menigismus CHEST/RESP: Nontender, clear to auscultation bilateral, no wheeze/rhonchi/rales CARDIOVASCULAR: RRR, no murmur, rub bradly. 2+ Rad pulse bilateral ABDOMEN: Soft, nontender, no mass. +Bowel sounds. Buttock: Left buttock with inferior, medial fluctuant and tender mass approximately 5 cm in diameter EXT: Full ROM, no edema, no rash Neuro: Grossly normal neurologic exam, conversant, interactive. Psych: Speech fluent, thoughts congruent, affect normal Course Vital Signs Temperature 36.6 C 08/20/18 08:05 Pulse 110 H 08/20/18 08:05 Respiratory Rate 20 08/20/18 08:05 Blood Pressure 110/95 H 08/20/18 08:05 Pulse Oximetry 98 08/20/18 08:05 Temperature 36.6 C 08/20/18 08:05 Temperature Source Temporal Artery Scan 08/20/18 08:05 Pulse 110 H 08/20/18 08:05 Respiratory Rate 20 08/20/18 08:05 Respiratory Effort Non-Labored 08/20/18 08:05 Blood Pressure 110/95 H 08/20/18 08:05 Blood Pressure Position Sitting 08/20/18 08:05 Pulse Oximetry 98 08/20/18 08:05 Oxygen Delivery Method Room Air 08/20/18 08:05 Oxygen Flow Rate 0 08/20/18 08:05 Pain Level 8 08/20/18 08:05
[2018-08-20 08:38] LABS: Lactate 0.6 mmol/L (0.6-1.4)
[2018-08-20 08:39] LABS: HCT 38.3 % (36.0-46.0); HGB 13.2 g/dL (12.0-15.5); Mean Corp. HGB Concentration 34.5 g/dL (32.0-36.0); Mean Corpuscular Hemoglobin 29.5 pg (27.0-33.0); Mean Corpuscular Volume 85.5 fL (80-95); Mean Platelet Volume 11.1 fL (8.0-11.0); Platelet Count 188 x1000/uL (130-400); RBC 4.48 m/cumm (4.00-5.20); RBC Distribution Width 13.8 % (11.7-14.6); White Blood Cell Count 16.21 k/cumm (4.4-10.8)
[2018-08-20] MEDS: Lactated Ringers 1,000 ML 125 ML IV ×3 (08:41→13:48)
[2018-08-20] MEDS: Ketorolac 15 MG/ML VIAL IVP ×2 (08:41→15:50)
[2018-08-20] MEDS: Normal Saline Flush 10 ML SYR IVP (08:41)
[2018-08-20] MEDS: Omnipaque 350 MG/ML 100 ML BTL IJ (08:50)
--- NOTE | 2018-08-20 08:50 | DI.CT_ITS ---
SYMPTOM/DIAGNOSIS: LT BUTTOCK CELLULITIS, PAIN ABDOMEN AND PELVIC CT: CT examination of the abdomen and pelvis was performed with a bolus infusion of 87 cc's of Omnipaque 350. Images obtained through the lung bases are unremarkable. Liver, spleen and pancreas appear normal. Gallbladder has been surgically removed. There are surgical clips also present at the expected site of the appendix indicating a prior appendectomy. Adrenals and kidneys appear normal. No evidence of urinary tract obstruction or calcification. No significant abdominal wall hernia is seen. No significant abdominal or pelvic adenopathy is seen. No intrapelvic mass or fluid collection identified. No free intraperitoneal air. Abdominal aorta is of normal diameter and no major vascular abnormality is seen. There is an area of subcutaneous fat edema measuring up to about 12 cm. in diameter located in the left buttock and extending to the deep fascia with some enhancement present at the level of the deep fascia and perianal musculature. No definite fluid collection identified. Early abscess not entirely excluded. No additional significant findings. CONCLUSION: Findings consistent with severe cellulitis and phlegmonous mass of the deep left buttock as described above. No definite abscess formation at this time. If clinically indicated, additional evaluation with MRI could prove helpful in determining exact extent of the process.
[2018-08-20 08:51] LABS: INR 1.9 (0.9-1.1); Prothrombin Time 19.3 sec (9.3-11.0)
[2018-08-20 08:55] LABS: ALT 25 U/L (12-78); AST 20 U/L (15-37); Albumin 3.5 g/dL (3.4-5.0); Alkaline Phosphatase 62 U/L (46-116); Anion Gap 9.1 mmol/L (3-11); BUN 7 mg/dL (7-18); Bilirubin, Total 1.3 mg/dL (0.2-1.0); CO2 25.9 mmol/L (21.0-32.0); CREATININE 0.89 mg/dL (0.55-1.02); Calcium 8.4 mg/dL (8.5-10.1); Chloride 99 mmol/L (98-107); Glucose 120 mg/dL (70-100); Potassium 3.4 mmol/L (3.5-5.1); Sodium 134 mmol/L (136-145); Total Protein 7.1 g/dL (6.4-8.2)
[2018-08-20 09:04] LABS: Absolute Eosinophil Count 0.16 k/cumm (0.0-0.7); Absolute Lymphocyte Count 0.81 k/cumm (1.2-3.4); Absolute Neutrophil Count 13.94 k/cumm (1.2-6.7)
[2018-08-20 09:05] LABS: Diff Comment Manual Differential; RBC Morphology Normal
[2018-08-20] MEDS: HYDROmorphone 2 MG/ML VIAL 0.5 MG IVP ×3 (09:59→18:17)
[2018-08-20] MEDS: CLINDAMYCIN 900 MG/50 ML BAG 50 MG IVPB (10:39)
--- NOTE | 2018-08-20 10:48 | W.PM.HP.N ---
Date of service: 08/20/18 Time of Service: 10:48 Assessment and Plan (1) Left buttock abscess: Current visit: Yes Status: Acute 38 y/o female with a left buttock abscess/cellulitis. We discussed proceeding with incision and drainage of left buttock abscess in the OR under anesthesia. The fluid collection appears to be deep into the left buttock soft tissue and she is anticoagulated on Coumadin. INR - 1.9 today. Therefore, I would not recommend doing the I&D as a bedside procedure. Patient received Clindamycin in the ED. Operative procedure for incision and drainage of left buttock abscess reviewed with patient including risks, benefits, and alternatives. These include but are not limited to risks with anesthesia, bleeding, infection, scarring, drain placement, recurrent infection, and possible additional procedures. All questions answered. Patient wishes to proceed. Will proceed to OR today. History of Present Illness Chief Complaint: Left buttock abscess Narrative: 38 y/o female who was seen in the ED for left buttock pain and swelling. Patient states that she noticed what felt like a small pimple on her lower left buttock 4-5 days ago. It became increasingly swollen and painful. Wearing jeans was uncomfortable for her. She was able to squeeze out only a tiny bit of drainage but noted it was very painful to do so. She has chronic hot/cold flashes but no documented fevers or chills. She has multiple antibiotic allergies but was able to tolerate Clindamycin and cephalosporins in the past. She denies any other recent history of skin infections. She is followed by outpatient pain management for chronic pain. She is on Coumadin for Factor V Leiden mutation. INR today is 1.9. WBC ~ 16k. CT was obtained in the ED. Discussed with Dr. Owusu in the ED and reviewed films. Report noted. There appears to be a large fluid collection consistent with an abscess/phlegmon in the left buttock with surrounding fat stranding consistent with abscess/cellulitis. Review of Systems Review of Systems All systems reviewed & are unremarkable except as noted in HPI and below Constitutional Denies chills and Denies fever(s) Cardiovascular Denies chest pain and Denies rapid heart rate Gastrointestinal Denies melena, Denies hematochezia, Denies nausea and Denies vomiting Genitourinary Denies hematuria and Denies dysuria [facility] Medical History Panic disorder (Chronic 03/21/16) Hypothyroidism (Chronic) Gastroesophageal reflux disease with esophagitis (Chronic) Chronic back pain greater than 3 months duration (Chronic 12/29/14) Asthma (Chronic 11/08/12) Allergic rhinitis (Chronic 09/21/15) ADHD (attention deficit hyperactivity disorder), 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) Right lower quadrant abdominal pain (Resolved) Migraine headache without aura (Chronic) Intractable vomiting (Resolved) Cannabis abuse with cannabis-induced disorder (Chronic) B12 deficiency (Chronic) Factor V Leiden mutation (Chronic) History of DVT (deep vein thrombosis) (Chronic) Intractable vomiting with nausea (Acute) Asthma (Chronic) Chronic anticoagulation (Chronic) Depression (Chronic) Factor V Leiden (Chronic) GERD (gastroesophageal reflux disease) (Chronic) Hypothyroidism (Chronic) Migraine headache (Chronic) Nephrolithiasis (Chronic) Recurrent deep vein thrombosis (DVT) (Chronic) Cellulitis (Resolved) Cyst of fallopian tube (Resolved) Surgical History S/P appendectomy (Acute 12/24/17) 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) Abdominal hysterectomy (~2009) Arthroplasty of knee (~1999) Bilateral salpingectomy with oophorectomy (~2008) Cervical Conization/LEEP Cholecystectomy THUMB RECONSTRUCTION Social History Smoking/Tobacco Use Status: Never Alcohol Intake: current Alcohol Intake frequency: 0-2 drinks per day Drug use: Occasionally Substance use type: marijuana Do you feel safe at home: Yes Do you feel safe in your relationship?: Yes Meds Home Medications Medication Instructions Recorded Confirmed Type Citracal + Bone Density 1 ea PO BID tab-cap 11/09/12 08/20/18 History Space Chamber Plus #1 spacer 05/01/14 08/20/18 Rx cyproheptadine 4 mg PO HS #90 tab-cap 06/04/16 08/20/18 History Narcan 4 mg NS DAILY PRN PRN #2 spray 12/08/16 08/20/18 Rx ipratropium-albuterol 3 ml INHALATION Q4H PRN PRN #1 box 01/23/17 08/20/18 History MDD 6 times omeprazole 40 mg PO DAILY PRN #90 cap 07/28/17 08/20/18 History metoclopramide HCl 10 mg IM ONCE #1 ml 08/05/17 08/20/18 Rx fexofenadine 180 mg PO DAILY #90 tab-cap 08/10/17 08/20/18 Rx epinephrine [EpiPen 2-Nino] 0.3 mg IM ONCE #1 ea 09/17/17 08/20/18 Rx warfarin [Coumadin] 0 - 10 mg PO HS PRN 90 Days #100 10/06/17 08/20/18 Rx tab-cap ketorolac 1 drp OPHTHALMIC QID PRN #5 ml 10/08/17 08/20/18 History triamcinolone acetonide 0 gm TOPICAL BID PRN #60 g 10/16/17 08/20/18 History fluconazole 100 mg tablet 100 mg PO DAILY #7 tab 01/11/18 08/20/18 Rx levothyroxine 100 mcg tablet 100 mcg PO QPM #90 tab 02/15/18 08/20/18 Rx clotrimazole-betamethasone 1 1 applic TOPICAL BID #45 gm 03/05/18 08/20/18 Rx %-0.05 % topical cream sumatriptan 6 mg/0.5 mL 6 mg SUBCUT As directed #8 pen MDD 04/27/18 08/20/18 Rx subcutaneous pen injector 12 mg albuterol sulfate HFA 90 2 puff INHALATION Q6H PRN #3 04/29/18 08/20/18 Rx mcg/actuation aerosol inhaler inhaler MDD 6 puffs fluticasone propionate 220 2 inh INHALATION BID #3 inhaler 04/29/18 08/20/18 Rx mcg/actuation HFA aerosol inhaler albuterol sulfate 1.25 mg/3 mL 1.25 mg INHALATION Q6H PRN #75 ml 05/20/18 08/20/18 Rx solution for nebulization Latuda 20 mg PO DAILY 05/22/18 08/20/18 History Topamax 200 mg tablet 400 mg PO HS #180 tab NS 06/08/18 08/20/18 Rx lorazepam 1 mg tablet 1 mg PO BID #60 tab 06/22/18 08/20/18 Rx sumatriptan 4 mg/0.5 mL 4 mg SC Q1-4H PRN #1 ml 07/23/18 08/20/18 Rx subcutaneous pen injector hydrocodone 7.5 mg-acetaminophen 1 tab PO TID PRN PRN #70 tab MDD 3 08/18/18 08/20/18 Rx 325 mg tablet tabs methylphenidate 20 mg tablet 20 mg PO TID #84 tab-cap MDD 60 mg 08/18/18 08/20/18 Rx Allergies Allergy/AdvReac Type Severity Reaction Status Date / Time aripiprazole [From Abilify] Allergy Severe Rash, hives Verified 08/20/18 08:08 doxycycline Allergy Severe Anaphylaxsi Verified 08/20/18 08:08 s levetiracetam [From Keppra] Allergy Severe RASH/HIVES Verified 08/20/18 08:08 sulfamethoxazole Allergy Severe Hives Verified 08/20/18 08:08 venom-honey bee Allergy Severe unknown Verified 08/20/18 08:08 Penicillins Allergy Intermediate Skin Rash Verified 08/20/18 08:08 chlorhexidine Allergy Unknown unknown Verified 08/20/18 08:08 Sulfa (Sulfonamide Allergy Verified 08/20/18 08:08 Antibiotics) mold AdvReac Severe Wheezing Verified 08/20/18 08:08 oxycodone [Oxycodone] AdvReac Severe vomits Verified 08/20/18 08:08 paroxetine AdvReac Severe Irritability Verified 08/20/18 08:08 and anger dicloxacillin [Dicloxacillin] AdvReac Mild Nausea Verified 08/20/18 08:08 gabapentin AdvReac Mild hives Unverified 08/20/18 08:08 verapamil [Verapamil] AdvReac Worsening Unverified 08/20/18 08:08 migraine nuts Allergy Severe Anaphylaxsi Uncoded 08/20/18 08:08 s Exam Const General: cooperative, comfortable and no acute distress Nutritional Appearance: well nourished Orientation: alert and oriented x3 HENMT Head: normocephalic and atraumatic Eyes Sclera: sclerae normal Resp Effort & Inspection: normal respiratory effort and able to speak in complete sentences Skin General skin exam: erythema (as below) and no jaundice Full body images: 1. Left buttock - erythematous, tender with 5-6cm fluctuant knot; punctate scab, no drainage, mildly indurated Neuro General: alert and oriented x3 Speech: speech normal Results Imaging Abdomen CT scan report/results: report reviewed and image reviewed CT scan - pelvis: report reviewed and image reviewed Imaging Studies: Patient Name: KRISTEN NAVARRETE #: [id number]: ER Ordering Provider: Farnk Owusu M.D. : [facility] ER Primary Care Provider: Jonny Pettit M.D.Date of Exam: 08/20/18Sex: F : 1980Age: 38 Exam(s) a CT:CT abdomen & pelvis w SYMPTOM/DIAGNOSIS: LT BUTTOCK CELLULITIS, PAIN ABDOMEN AND PELVIC CT: CT examination of the abdomen and pelvis was performed with a bolus infusion of 87 cc's of Omnipaque 350. Images obtained through the lung bases are unremarkable. Liver, spleen and pancreas appear normal. Gallbladder has been surgically removed. There are surgical clips also present at the expected site of the appendix indicating a prior appendectomy. Adrenals and kidneys appear normal. No evidence of urinary tract obstruction or calcification. No significant abdominal wall hernia is seen. No significant abdominal or pelvic adenopathy is seen. No intrapelvic mass or fluid collection identified. No free intraperitoneal air. Abdominal aorta is of normal diameter and no major vascular abnormality is seen. There is an area of subcutaneous fat edema measuring up to about 12 cm. in diameter located in the left buttock and extending to the deep fascia with some enhancement present at the level of the deep fascia and perianal musculature. No definite fluid collection identified. Early abscess not entirely excluded. No additional significant findings. CONCLUSION: Findings consistent with severe cellulitis and phlegmonous mass of the deep left buttock as described above. No definite abscess formation at this time. If clinically indicated, additional evaluation with MRI could prove helpful in determining exact extent of the process. [id number]: Total DLP = 0.00 mGy-cm Ordered By: Frank Owusu M.D. CC: Dictated By: Frank Cueto M.D. 08/20/18 0924 Transcribed By: Tabatha Brown 08/20/18 1019 This is privileged, confidential information intended only for the provider named. Any use or distribution by any person other than this provider is strictly prohibited. If you receive this report in error, please notify us immediately at [phone] and return the original report to us at the address above. Thank-you. Labs : 08/20/18 08:29 08/20/18 08:29 Laboratory Results - last 24 hr 08/20/18 08/20/18 08/20/18 08:29 08:29 08:29 WBC 16.21 H RBC 4.48 Hgb 13.2 Hct 38.3 MCV 85.5 MCH 29.5 MCHC 34.5 RDW 13.8 Plt Count 188 MPV 11.1 H Immature Gran % See Differential Neutrophils % 86.0 Lymphocytes % 5.0 Monocytes % 8.0 Eosinophils % 1.0 Basophils % 0.0 Absolute Neutrophils 13.94 H Absolute Lymphocytes 0.81 L Absolute Monocytes 1.30 H Absolute Eosinophils 0.16 Absolute Basophils 0.00 Differential Comment Manual differential RBC Morphology Normal PT INR Sodium 134 L Potassium 3.4 L Chloride 99 Carbon Dioxide 25.9 Anion Gap 9.1 BUN 7 Creatinine 0.89 Estimated GFR/1.73 m2 >= 60.00 Glucose 120 H Lactate 0.6 Calcium 8.4 L Total Bilirubin 1.3 H AST 20 ALT 25 Alkaline Phosphatase 62 Total Protein 7.1 Albumin 3.5 08/20/18 08:29 WBC RBC Hgb Hct MCV MCH MCHC RDW Plt Count MPV Immature Gran % Neutrophils % Lymphocytes % Monocytes % Eosinophils % Basophils % Absolute Neutrophils Absolute Lymphocytes Absolute Monocytes Absolute Eosinophils Absolute Basophils Differential Comment RBC Morphology PT 19.3 H INR 1.9 H Sodium Potassium Chloride Carbon Dioxide Anion Gap BUN Creatinine Estimated GFR/1.73 m2 Glucose Lactate Calcium Total Bilirubin AST ALT Alkaline Phosphatase Total Protein Albumin Last Vital Signs Temp 38.2 C H 08/20/18 10:41 Pulse 80 08/20/18 10:41 Resp 20 08/20/18 10:41 BP 99/66 L 08/20/18 10:41 Pulse Ox 98 08/20/18 10:41
[2018-08-20] MEDS: Bupivacaine 0.25% Pres-Free 30 ML VIAL (12:50)
[2018-08-20] MEDS: fentaNYL 100 MCG/2 ML VIAL IVP (13:45)
--- NOTE | 2018-08-20 14:21 | ROE_ITS ---
Date of service: 08/20/18 Time of Service: 14:16 Operative Note DATE OF PROCEDURE: 08/20/18 PRE-OP DIAGNOSIS: Left buttock abscess POST-OP DIAGNOSIS: same PROCEDURE: Incision and drainage left buttock abscess SURGEON: Lico Machado ANESTHESIA: EDISON ESTIMATED BLOOD LOSS: 5 PATHOLOGY: none sent COMPLICATIONS: None Patient was transported to: PACU Patient's condition: stable Indications: 38 y/o female who was admitted through the ED with a left buttock abscess. Patient presents at this time for an incision and drainage. Operative procedure including risks, benefits, and alternatives discussed with patient and informed consent obtained prior to surgery. Findings: Large subcutaneous abscess cavity tracking superiorly, inferiorly, and medially from a punctate scab on the lower left buttock. Procedure Description: Patient was brought to the operating room, monitored, intubated, and placed under general anesthesia. Patient was then carefully positioned prone on the table. Left buttock prepped and draped in the usual sterile fashion with betadine. Time out performed per protocol. Patient had received Clindamycin in the ED for antibiotic coverage. There is a punctate scab on the lower left buttock centered over the fluctuant area. This was incised with a scalpel and gently probed with a hemostat. Thick, purulent, cream-colored drainage was noted. This was swabbed and sent for aerobic and anaerobic cultures. The cavity was then suctioned and gently probed with the [employer] suction tip. Cavity noted to extend ~ 4 cm medially/ inferiorly and ~ 4 cm superiorly. No loculations noted. Cavity was carefully irrigated with saline and suctioned until the effluent was clear. A quarter-inch Marisel drain was then trimmed and inserted into the wound. Skin edges were reapproximated to the drain with 3-0 nylon suture. Dry gauze dressing and tape applied. Patient tolerated the procedure well, was repositioned supine, awakened from anesthesia, extubated, and transferred to recovery in satisfactory condition.
--- NOTE | 2018-08-20 15:03 | W.PM.PROGNOT ---
Date of Service Date of service: 08/20/18 Time of Service: 15:04 Assessment and Plan (1) Left buttock abscess: Current visit: Yes Status: Acute s/p I&D today. Doing well. Clarified that patient is no longer taking Latuda - med order d/c'd. She has tolerated IV Clindamycin and Rocephin in the past and tolerated IV Clindamycin today. She states that she is unable to tolerate PO Clindamycin whether she takes it with food or not. Anticipating d/c in am. Discussed with case management/ nursing re: setting patient up for daily outpatient IV antibiotics x [address] midline if needed. Will change antibiotic to Ceftriaxone for once daily dosing. Discussed with patient. She agrees with plans. Subjective Interval history since last seen: Patient seen with mother and nurse at bedside. No complaints. Exam Const General: cooperative, no acute distress and well developed Nutritional Appearance: well nourished [facility] Head: normocephalic and atraumatic Eyes Sclera: sclerae normal Resp Effort & Inspection: normal respiratory effort and able to speak in complete sentences Objective Objective Clinical Data: Abnormal lab results 08/20/18 08/20/18 08/20/18 Range/Units 08:29 08:29 08:29 WBC 16.21 H (4.4-10.8) k/cumm MPV 11.1 H (8.0-11.0) fL Absolute Neutrophils 13.94 H (1.2-6.7) k/cumm Absolute Lymphocytes 0.81 L (1.2-3.4) k/cumm Absolute Monocytes 1.30 H (0.11-0.7) k/cumm PT 19.3 H (9.3-11.0) sec INR 1.9 H (0.9-1.1) Sodium 134 L (136-145) mmol/L Potassium 3.4 L (3.5-5.1) mmol/L Glucose 120 H (70-100) mg/dL Calcium 8.4 L (8.5-10.1) mg/dL Total Bilirubin 1.3 H (0.2-1.0) mg/dL Vital Signs Temperature 37.7 C H 08/20/18 14:51 Temperature Source Tympanic 08/20/18 14:51 Pulse 91 H 08/20/18 14:51 Pulse Rhythm Regular 08/20/18 14:35 Respiratory Rate 16 08/20/18 14:51 Respiratory Effort 08/20/18 14:35 Respiratory Depth Normal 08/20/18 14:35 Respiratory Pattern Normal 08/20/18 14:35 Blood Pressure 112/57 L 08/20/18 14:51 Blood Pressure Position Sitting 08/20/18 08:05 Pulse Oximetry 98 08/20/18 14:51 Oxygen Delivery Method Room Air 08/20/18 14:51 Oxygen Flow Rate 0 08/20/18 14:51 Pain Level 7 08/20/18 14:51 Intake & Output 08/19/18 08/20/18 08/20/18 23:59 11:59 23:59 Intake Total 2154.166 / 2154.166 Output Total 350 / 350 Balance 1804.166 / 1804.166 Weight 61.235 kg 61.235 kg Intake: IV 2053.166 / 2053.166 Oral 100 / 100 Output: Urine 350 / 350 Other: Urine Color Yellow Urine Appearance Clear Urine Odor None Emesis Description None Voiding Methods Bedside Commode Laboratory Results WBC 16.21 k/cumm (4.4-10.8) H 08/20/18 08:29 RBC 4.48 m/cumm (4.00-5.20) 08/20/18 08:29 Hgb 13.2 g/dL (12.0-15.5) 08/20/18 08:29 Hct 38.3 % (36.0-46.0) 08/20/18 08:29 MCV 85.5 fL (80-95) 08/20/18 08:29 MCH 29.5 pg (27.0-33.0) 08/20/18 08:29 MCHC 34.5 g/dL (32.0-36.0) 08/20/18 08:29 RDW 13.8 % (11.7-14.6) 08/20/18 08:29 Plt Count 188 x1000/uL (130-400) 08/20/18 08:29 MPV 11.1 fL (8.0-11.0) H 08/20/18 08:29 Immature Gran % See Differential 08/20/18 08:29 Neutrophils % 86.0 08/20/18 08:29 Lymphocytes % 5.0 08/20/18 08:29 Monocytes % 8.0 08/20/18 08:29 Eosinophils % 1.0 08/20/18 08:29 Basophils % 0.0 08/20/18 08:29 Absolute Neutrophils 13.94 k/cumm (1.2-6.7) H 08/20/18 08:29 Absolute Lymphocytes 0.81 k/cumm (1.2-3.4) L 08/20/18 08:29 Absolute Monocytes 1.30 k/cumm (0.11-0.7) H 08/20/18 08:29 Absolute Eosinophils 0.16 k/cumm (0.0-0.7) 08/20/18 08:29 Absolute Basophils 0.00 k/cumm (0.0-0.2) 08/20/18 08:29 Differential Comment Manual differential 08/20/18 08:29 RBC Morphology Normal 08/20/18 08:29 PT 19.3 sec (9.3-11.0) H 08/20/18 08:29 INR 1.9 (0.9-1.1) H 08/20/18 08:29 Sodium 134 mmol/L (136-145) L 08/20/18 08:29 Potassium 3.4 mmol/L (3.5-5.1) L 08/20/18 08:29 Chloride 99 mmol/L (98-107) 08/20/18 08:29 Carbon Dioxide 25.9 mmol/L (21.0-32.0) 08/20/18 08:29 Anion Gap 9.1 mmol/L (3-11) 08/20/18 08:29 BUN 7 mg/dL (7-18) 08/20/18 08:29 Creatinine 0.89 mg/dL (0.55-1.02) 08/20/18 08:29 Estimated GFR/1.73 m2 >= 60.00 (mL/min/1.73m2) 08/20/18 08:29 Glucose 120 mg/dL (70-100) H 08/20/18 08:29 Lactate 0.6 mmol/L (0.6-1.4) 08/20/18 08:29 Calcium 8.4 mg/dL (8.5-10.1) L 08/20/18 08:29 Total Bilirubin 1.3 mg/dL (0.2-1.0) H 08/20/18 08:29 AST 20 U/L (15-37) 08/20/18 08:29 ALT 25 U/L (12-78) 08/20/18 08:29 Alkaline Phosphatase 62 U/L (46-116) 08/20/18 08:29 Total Protein 7.1 g/dL (6.4-8.2) 08/20/18 08:29 Albumin 3.5 g/dL (3.4-5.0) 08/20/18 08:29
[2018-08-20] MEDS: cefTRIAXone 1 GM/50 ML BAG IVPB (16:05)
[2018-08-20] MEDS: Acetaminophen 325 MG TAB 650 MG PO (16:05)
[2018-08-20] MEDS: Normal Saline 1,000 ML 50 ML IV (16:06)
[2018-08-20] MEDS: LORazepam 1 MG TAB PO (19:36)
[2018-08-20] MEDS: Levothyroxine 100 MCG TAB PO (19:36)
[2018-08-20] MEDS: Mometasone 220 MCG 14 DOSE INHALER 2 PUFF IH (19:36)
[2018-08-20] MEDS: Warfarin 5 MG TAB 10 MG PO (21:41)
[2018-08-20] MEDS: Topiramate 100 MG TAB 400 MG PO (21:41)
[2018-08-21] MEDS: clonazePAM 1 MG TAB PO ×3 (00:32→21:36)
[2018-08-21] MEDS: Normal Saline Flush 10 ML SYR IVP ×3 (00:32→07:01)
[2018-08-21 00:33] LABS: Bilirubin Negative (Negative); Blood Small (Negative); Clarity Clear; Glucose 250 mg/dL (Negative); Ketones Negative (Negative); Leukocyte Esterase Negative (Negative); Nitrite Negative (Negative); Specific Gravity 1.015 (1.005-1.025)
[2018-08-21] MEDS: HYDROmorphone 2 MG/ML VIAL 0.5 MG IVP ×3 (00:33→07:00)
[2018-08-21 00:36] LABS: WBC 0-2 HPF (0-5)
[2018-08-21 00:37] LABS: Bacteria Rare HPF (Negative); C & S Indicated? No/Sq. Contamination; Casts Negative LPF (Negative); Crystals Negative HPF (Negative); Epithelial Cells Many HPF (Negative); Mucus Negative (Negative)
[2018-08-21 03:35] VITALS: BP 125/75; PULSE 60; RESP 18; TEMP 36.5; O2SAT 99
[2018-08-21] MEDS: Methylphenidate 10 MG TAB 20 MG PO ×3 (06:59→15:07)
[2018-08-21 07:21] LABS: Abs Immature Grans 0.05 k/cumm (0.0-0.09); Absolute Lymphocyte Count 0.62 k/cumm (1.2-3.4); Basophils % 0.1; HCT 38.2 % (36.0-46.0); HGB 12.8 g/dL (12.0-15.5); Immature Grans % 0.3; Lymphocytes % 3.2; Mean Corp. HGB Concentration 33.5 g/dL (32.0-36.0); Mean Corpuscular Hemoglobin 29.1 pg (27.0-33.0); Mean Corpuscular Volume 86.8 fL (80-95); Mean Platelet Volume 11.8 fL (8.0-11.0); Monocytes % 4.4; Platelet Count 180 x1000/uL (130-400); RBC Distribution Width 13.9 % (11.7-14.6); White Blood Cell Count 19.28 k/cumm (4.4-10.8)
[2018-08-21 07:24] LABS: Absolute Basophil Count 0.02 k/cumm (0.0-0.2); Absolute Monocyte Count 0.85 k/cumm (0.11-0.7); Absolute Neutrophil Count 17.74 k/cumm (1.2-6.7)
[2018-08-21 07:30] VITALS: BP 122/64; PULSE 70; RESP 19; TEMP 36.4; O2SAT 100
[2018-08-21 07:31] LABS: INR 3.1 (0.9-1.1)
[2018-08-21] MEDS: Mometasone 220 MCG 14 DOSE INHALER 2 PUFF IH ×2 (09:10→19:54)
[2018-08-21] MEDS: Fexofenadine 180 MG TAB PO (09:11)
[2018-08-21] MEDS: CLINDAMYCIN 600 MG/50 ML BAG 100 MG IVPB ×2 (11:05→17:51)
[2018-08-21 11:15] VITALS: BP 142/84; PULSE 80; RESP 18; TEMP 36.6; O2SAT 100
--- NOTE | 2018-08-21 11:39 | W.PM.PROGNOT ---
Date of Service Date of service: 08/21/18 Time of Service: 14:16 Assessment and Plan (1) Left buttock abscess: Current visit: Yes Status: Acute POD # 1 s/p I&D left buttock abscess. Changed antibiotics from Ceftriaxone back to Clindamycin for MRSA. Will await sensitivities prior to discharge home with outpatient IV ABX regimen. Patient has been unable to tolerate multiple oral antibiotics. Restarted patient on po hydrocodone/acetaminophen (7.5/325 mg) which she has been on at home for post-op pain management. Explained to her that she will not be given any scripts for pain meds at discharge as she is followed by pain management as an outpatient and they have been weaning her pain meds. Monitor CBC. Follow-up in am. Subjective Interval history since last seen: Patient seen with nurse at bedside this morning. Wound cultures have grown MRSA, sensitivities pending. WBC elevated to 19.3 this am. Afebrile overnight. Patient has showered. Drain is functioning. No new complaints. She had complained of not being able to sleep and back pain overnight. Exam Const General: cooperative, no acute distress and well developed Nutritional Appearance: well nourished Resp Effort & Inspection: normal respiratory effort and able to speak in complete sentences Skin Other: left buttock - dressing taken down to examine wound - sutures and Grenola drain in place, draining slightly purulent, serosanguinous fluid Objective Objective Clinical Data: Abnormal lab results 08/20/18 08/21/18 08/21/18 Range/Units 23:15 06:50 06:50 WBC 19.28 H (4.4-10.8) k/cumm MPV 11.8 H (8.0-11.0) fL Absolute Neutrophils 17.74 H (1.2-6.7) k/cumm Absolute Lymphocytes 0.62 L (1.2-3.4) k/cumm Absolute Monocytes 0.85 H (0.11-0.7) k/cumm PT 31.0 H D (9.3-11.0) sec INR 3.1 H D (0.9-1.1) Urine Protein Trace H (Negative) mg/dL Urine Blood Small H (Negative) Urine Urobilinogen 2.0 H (Up TO 0.2) EU/dL Urine RBC 3-5 H (0-2) Urine Glucose 250 H (Negative) mg/dL Vital Signs Temperature 36.4 C L 08/21/18 07:30 Temperature Source Tympanic 08/21/18 07:30 Pulse 70 08/21/18 07:30 Pulse Rhythm Regular 08/21/18 10:07 Respiratory Rate 08/21/18 07:30 Respiratory Effort 08/21/18 10:07 Respiratory Depth Normal 08/21/18 10:07 Respiratory Pattern Normal 08/21/18 10:07 Blood Pressure 122/64 08/21/18 07:30 Blood Pressure Position Sitting 08/20/18 08:05 Pulse Oximetry 100 08/21/18 07:30 Oxygen Delivery Method Room Air 08/21/18 07:30 Oxygen Flow Rate 0 08/21/18 07:30 Pain Level 7 08/21/18 11:37 Comment 08/21/18 03:35 Intake & Output 08/20/18 08/20/18 08/21/18 11:59 23:59 11:59 Intake Total 2416.666 / 2416.666 350 / 350 Output Total 1200 / 1200 850 / 850 Balance 1216.666 / 1216.666 -500 / -500 Weight 61.235 kg 61.235 kg Intake: IV 2316.666 / 2316.666 Oral 100 / 100 350 / 350 Output: Urine 1200 / 1200 850 / 850 Other: Urine Color Pale Yellow Urine Appearance Clear Clear Urine Odor None Normal Emesis Description None Voiding Methods Toilet Toilet Laboratory Results WBC 19.28 k/cumm (4.4-10.8) H 08/21/18 06:50 RBC 4.40 m/cumm (4.00-5.20) 08/21/18 06:50 Hgb 12.8 g/dL (12.0-15.5) 08/21/18 06:50 Hct 38.2 % (36.0-46.0) 08/21/18 06:50 MCV 86.8 fL (80-95) 08/21/18 06:50 MCH 29.1 pg (27.0-33.0) 08/21/18 06:50 MCHC 33.5 g/dL (32.0-36.0) 08/21/18 06:50 RDW 13.9 % (11.7-14.6) 08/21/18 06:50 Plt Count 180 x1000/uL (130-400) 08/21/18 06:50 MPV 11.8 fL (8.0-11.0) H 08/21/18 06:50 Immature Gran % 0.3 08/21/18 06:50 Neutrophils % 92.0 08/21/18 06:50 Lymphocytes % 3.2 08/21/18 06:50 Monocytes % 4.4 08/21/18 06:50 Eosinophils % 0.0 08/21/18 06:50 Basophils % 0.1 08/21/18 06:50 Absolute Neutrophils 17.74 k/cumm (1.2-6.7) H 08/21/18 06:50 Absolute Lymphocytes 0.62 k/cumm (1.2-3.4) L 08/21/18 06:50 Absolute Monocytes 0.85 k/cumm (0.11-0.7) H 08/21/18 06:50 Absolute Eosinophils 0.00 k/cumm (0.0-0.7) 08/21/18 06:50 Absolute Basophils 0.02 k/cumm (0.0-0.2) 08/21/18 06:50 Differential Comment Manual differential 08/20/18 08:29 RBC Morphology Normal 08/20/18 08:29 PT 31.0 sec (9.3-11.0) H D 08/21/18 06:50 INR 3.1 (0.9-1.1) H D 08/21/18 06:50 Sodium 134 mmol/L (136-145) L 08/20/18 08:29 Potassium 3.4 mmol/L (3.5-5.1) L 08/20/18 08:29 Chloride 99 mmol/L (98-107) 08/20/18 08:29 Carbon Dioxide 25.9 mmol/L (21.0-32.0) 08/20/18 08:29 Anion Gap 9.1 mmol/L (3-11) 08/20/18 08:29 BUN 7 mg/dL (7-18) 08/20/18 08:29 Creatinine 0.89 mg/dL (0.55-1.02) 08/20/18 08:29 Estimated GFR/1.73 m2 >= 60.00 (mL/min/1.73m2) 08/20/18 08:29 Glucose 120 mg/dL (70-100) H 08/20/18 08:29 Lactate 0.6 mmol/L (0.6-1.4) 08/20/18 08:29 Calcium 8.4 mg/dL (8.5-10.1) L 08/20/18 08:29 Total Bilirubin 1.3 mg/dL (0.2-1.0) H 08/20/18 08:29 AST 20 U/L (15-37) 08/20/18 08:29 ALT 25 U/L (12-78) 08/20/18 08:29 Alkaline Phosphatase 62 U/L (46-116) 08/20/18 08:29 Total Protein 7.1 g/dL (6.4-8.2) 08/20/18 08:29 Albumin 3.5 g/dL (3.4-5.0) 08/20/18 08:29 Urine Color Yellow (Yellow) 08/20/18 23:15 Urine Clarity Clear 08/20/18 23:15 Urine pH 7.0 (5-8) 08/20/18 23:15 Ur Specific [place] 1.015 (1.005-1.025) 08/20/18 23:15 Urine Protein Trace mg/dL (Negative) H 08/20/18 23:15 Urine Ketones Negative mg/dL (Negative) 08/20/18 23:15 Urine Blood Small (Negative) H 08/20/18 23:15 Urine Nitrite Negative (Negative) 08/20/18 23:15 Urine Bilirubin Negative (Negative) 08/20/18 23:15 Urine Urobilinogen 2.0 EU/dL (Up TO 0.2) H 08/20/18 23:15 Ur Leukocyte Esterase Negative (Negative) 08/20/18 23:15 Urine RBC 3-5 (0-2) H 08/20/18 23:15 Urine WBC 0-2 HPF (0-5) 08/20/18 23:15 Ur Epithelial Cells Many HPF (Negative) 08/20/18 23:15 Urine Crystals Negative HPF (Negative) 08/20/18 23:15 Urine Bacteria Rare HPF (Negative) 08/20/18 23:15 Urine Casts Negative LPF (Negative) 08/20/18 23:15 Urine Mucus Negative (Negative) 08/20/18 23:15 Ur Culture Indicated? No/sq. contamination 08/20/18 23:15 Urine Glucose 250 mg/dL (Negative) H 08/20/18 23:15
[2018-08-21] MEDS: Normal Saline 1,000 ML 50 ML IV (12:50)
--- NOTE | 2018-08-21 14:36 | NUR.NOTE ---
Nursing Note: Patient was still feeling claustrophobic after medication, she was encouraged to ambulate the unit as many times as she would like, and she was given a demonstration on deep breathing, and was encouraged to do that as well
[2018-08-21 15:57] VITALS: BP 118/77; PULSE 75; RESP 16; TEMP 36.3; O2SAT 99
[2018-08-21] MEDS: Acetaminophen 325 MG TAB 650 MG PO (16:37)
--- NOTE | 2018-08-21 17:03 | INITIAL_ITS ---
- If Service Date Differs Date of service: 08/21/18 Time of Service: 16:54 Care Management Initial Assess REASON FOR HOSPITALIZATION:: Left buttock abscess/cellulitis PAST MEDICAL HISTORY/PAST SURGICAL HISTORY:: Hx of migraine headaches, Hx of DVT associated with , chronic anticoagulation, nephrolithiasis, recurrent DVT, asthma, GERD, Hypothyroidism, chronic back pain, chonic pelvic pain, panic disorder, anxiety disorder, ADHD, depression. Surgical: CARLO, BSO, cholecystectomy, knee arthroplasty, abdominal hysterectomy, bilateral sapingectomy with oophorectomy, cervical conization/LEEP, left thumb surgery PREVIOUS FUNCTIONAL STATUS/SOCIAL/FAMILY SUPPORTS:: Suzie resides in [facility] with her son Braulio. She is disabled and identifies her support system as her son and sometimes her Mom.Suzie is independent with self care and activities of daily living. Suzie deals with chronic pain though is independent in the community at baseline. CURRENT FUNCTIONAL STATUS:: Suzie is engaged during assessment. She states she thought the abscess was a boil at first and attempted to care for it at home. Suzie states she does not have a strong support system. She depends on her son for suppo. She states she does not tolerate oral antibiotics only IV. She states she can not do her antibiotics at home and will need to come to the hospital for treatment even if its several times a day. ADVANCE DIRECTIVES:: None on file declines to complete at this time. Has patient been provided with information about the portal?: Yes Did the patient sign up for the portal?: No CODE STATUS:: Full Code INSURANCE COVERAGE / FINANCIAL ISSUES:: Medicare and Medicaid CURRENT HOME/COMMUNITY SERVICES/EQUIPMENT:: No current services at this time. PRIMARY CARE PHYSICIAN:: POTENTIAL DISCHARGE NEEDS:: Follow up with surgical provider and ongoing follow up with primary care. PATIENT/FAMILY EDUCATION NEEDS:: Discharge education, limitations and follow up plan of care including ask me three. ANTICIPATED BARRIERS TO DISCHARGE:: Tolerence of antibiotics anticipate she will have IV antibiotics through the infusion room. TRANSPORTATION:: Via private car with son at time of discharge. PLAN:: Suzie is status post I&D of abscess of left buttock. Wound culture is MRSA positive, Provider awaiting sensitivities prior to discharge. She will recieive IV antibiotics through outpatient infusion services. Suzie does not want to consider home abx. She states she would prefer to come to the hospital f or treatment.
[2018-08-21 19:42] VITALS: BP 130/78; PULSE 68; RESP 16; TEMP 36.2; O2SAT 100
[2018-08-21] MEDS: Levothyroxine 100 MCG TAB PO (19:54)
[2018-08-21] MEDS: Ketorolac 15 MG/ML VIAL IVP (21:36)
[2018-08-21] MEDS: Warfarin 5 MG TAB 10 MG PO (21:36)
[2018-08-21] MEDS: Topiramate 100 MG TAB 400 MG PO (21:37)
[2018-08-22] MEDS: Acetaminophen 325 MG TAB 650 MG PO (02:17)
[2018-08-22] MEDS: CLINDAMYCIN 600 MG/50 ML BAG 100 MG IVPB (02:18)
[2018-08-22] MEDS: Normal Saline Flush 10 ML SYR IVP (02:27)
[2018-08-22] MEDS: Methylphenidate 10 MG TAB 20 MG PO ×2 (06:14→11:42)
[2018-08-22] MEDS: clonazePAM 1 MG TAB PO (06:14)
[2018-08-22 07:34] VITALS: BP 121/60; PULSE 62; RESP 16; TEMP 36.4; O2SAT 99
[2018-08-22 07:36] LABS: Abs Immature Grans 0.01 k/cumm (0.0-0.09); Absolute Basophil Count 0.01 k/cumm (0.0-0.2); Absolute Eosinophil Count 0.02 k/cumm (0.0-0.7); Absolute Lymphocyte Count 1.16 k/cumm (1.2-3.4); Absolute Monocyte Count 0.51 k/cumm (0.11-0.7); Absolute Neutrophil Count 6.84 k/cumm (1.2-6.7); Basophils % 0.1; Eosinophils % 0.2; HCT 31.5 % (36.0-46.0); HGB 10.4 g/dL (12.0-15.5); Immature Grans % 0.1; Lymphocytes % 13.6; Mean Corpuscular Hemoglobin 28.7 pg (27.0-33.0); Mean Platelet Volume 11.8 fL (8.0-11.0); Platelet Count 166 x1000/uL (130-400); RBC 3.62 m/cumm (4.00-5.20); RBC Distribution Width 14.2 % (11.7-14.6); White Blood Cell Count 8.55 k/cumm (4.4-10.8)
[2018-08-22 07:41] LABS: Prothrombin Time 59.1 sec (9.3-11.0)
[2018-08-22 07:51] LABS: INR 5.8 (0.9-1.1)
[2018-08-22] MEDS: Fexofenadine 180 MG TAB PO (09:33)
[2018-08-22] MEDS: Mometasone 220 MCG 14 DOSE INHALER 2 PUFF IH (09:33)
--- NOTE | 2018-08-22 10:19 | PDOC.CMPRO ---
Care Management Progress Note S/O: A: 38 year old female admitted to [facility] 08/20/18 P: Suzie will likely require L/T IV ABX infusion therapy for MRSA positive abscess of left buttock. Provider awaiting sensitivities prior to discharge coordination. Anticipate coordination through outpatient infusion services. Suzie does not want to consider home abx. She states she would prefer to come to the hospital for treatment.
--- NOTE | 2018-08-22 10:23 | CMPROGNOTE_ITS ---
Care Management Progress Note S/O: A: 38 year old female admitted to [facility] 08/20/18 P: Suzie will likely require L/T IV ABX infusion therapy for MRSA positive abscess of left buttock. Provider awaiting sensitivities prior to discharge coordination. Anticipate coordination through outpatient infusion services. Suzie does not want to consider home abx. She states she would prefer to come to the hospital for treatment.
--- NOTE | 2018-08-22 10:24 | PDOC.CMDIS ---
LACE Index Scoring Tool - Questions: Length of Stay (in days): 2 Acuity (Admit via E.D.?): Yes E.D. Visits: 3 - Answers: Total Score: 8 Risk of Readmission: Low Risk Care Management Discharge Reason for Hospitalization: Left buttock abscess/cellulitis Discharge Plan: Suzie will require L/T IV ABX infusion therapy for MRSA positive abscess of left buttock twice daily, coordinated through outpatient infusion services. She will return home as requested. She will transport via private vehicle with family. Patient/Family Education Needs: Review of discharge instructions, infusion therapy modalities and options, discussed Ask Me Three. Services Needed at Discharge: Infusion Therapy (Outpatient [facility] )
--- NOTE | 2018-08-22 10:52 | DSE_ITS ---
Date of service: 08/22/18 Time of Service: 10:44 DS: Diagnosis Discharge Diagnosis (1) Left buttock abscess: Status: Acute Discharge Plan Disposition Patient Disposition: HOME Condition: Stable Discharge Details Chief Complaint: Cellulitis Reason For Visit: LEFT BUTTOCK ABSCESS/CELLULITIS Admit Date/Time: 08/20/18 11:55 Admit Provider: Lico Machado Attending Provider: Lico Machado Primary Care Provider: Jonny Pettit ED Provider: Frank Owusu Hospital Course Hospital Course: 38 y/o female presented to the ED at [facility] on 08/20/18 with a left buttock abscess/cellulitis. She underwent an incision and drainage procedure in the OR on 08/20/18. A Marisel drain was inserted. She has been afebrile. Leukocytosis resolved. Patient received IV Clindamycin and Ceftriaxone while awaiting culture results. Wound culture grew MRSA sensitive to Vancomycin. Patient has multiple antibiotic allergies and intolerances. She is unable to tolerate oral Clindamycin per patient. She received a dose of Vancomycin prior to discharge which she tolerated. Arrangements have been made for outpatient IV antibiotic therapy with Vancomycin BID x 7 days. Patient has been on Coumadin chronically for Factor V Leiden mutation. Per patient, she is on 10 mg po daily. INR 5.8 on 08/22/18 with no signs of bleeding. Patient instructed to hold her dose of Coumadin on 08/22/[address] Pettit's office in the morning on 08/23/18 re: further dosing instructions. She is also to follow-up with Dr. Pettit for pain management. She has been on hydrocodone/acetaminophen for chronic pain which is being weaned by Dr. Pettit per patient. She had noted that she had used up her prescription prior to hospital admission and had contacted his office for her next script. We had discussed that she would not receive any new prescriptions for pain medication from this admission. Patient has been advised that she may use OTC pain medications if needed and may apply a heating pad to her left buttock as needed for comfort. Follow-up with general surgery at the end of this week for drain removal. Home Meds and New Rx's Prescriptions: Continued fluconazole [Diflucan] 100 mg tablet 100 mg PO DAILY Qty: 7 RF: 0 Citracal + Bone Density 1 EACH tablet 1 ea PO BID RF: 0 cyproheptadine 4 MG tablet 4 mg PO HS Qty: 90 RF: 3 ipratropium-albuterol 3 ML solution for nebulization 3 ml Inhalation Q4H PRN MDD 6 times PRNQty: 1 RF: 0 omeprazole 40 MG capsule,delayed release(DR/EC) 40 mg PO DAILY PRNQty: 90 RF: 3 metoclopramide HCl 5 MG/1 ML solution 10 mg IM ONCE Qty: 1 RF: 0 fexofenadine 180 MG tablet 180 mg PO DAILY Qty: 90 RF: 4 epinephrine [EpiPen 2-Nino] 0.3 MG/0.3 ML auto-injector 0.3 mg IM ONCE Qty: 1 RF: 1 warfarin [Coumadin] 5 MG tablet 0 - 10 mg PO HS PRN 90 Days Qty: 100 RF: 3 ketorolac 5 ML drops 1 drp Ophthalmic QID PRNQty: 5 RF: 3 triamcinolone acetonide 15 GM cream Topical BID PRNQty: 60 RF: 0 levothyroxine [Synthroid] 100 mcg tablet 100 mcg PO QPM Qty: 90 RF: 4 clotrimazole-betamethasone [Lotrisone] 1-0.05 % cream 1 applic Topical BID Qty: 45 RF: 1 sumatriptan succinate 6 mg/0.5 mL pen injector 6 mg subcut As directed MDD 12 mg Qty: 8 RF: 5 albuterol sulfate [ProAir HFA] 90 mcg/actuation HFA aerosol inhaler 2 puff Inhalation Q6H PRN MDD 6 puffs Qty: 3 RF: 4 Flovent HFA 220 mcg/actuation HFA aerosol inhaler 2 inh Inhalation BID Qty: 3 RF: 4 albuterol sulfate 1.25 mg/3 mL solution for nebulization 1.25 mg Inhalation Q6H PRN (Reason: shortness of breath or wheezing) Qty: 75 RF: 3 topiramate [Topamax] 200 mg tablet 400 mg PO HS Qty: 180 RF: 4 lorazepam 1 mg tablet 1 mg PO BID Qty: 60 RF: 0 sumatriptan succinate 4 mg/0.5 mL pen injector 4 mg SC Q1-4H PRN (Reason: migraine headache) Qty: 1 RF: 4 methylphenidate HCl 20 mg tablet 20 mg PO TID MDD 60 mg Qty: 84 RF: 0 hydrocodone-acetaminophen 7.5-325 mg tablet 1 tab PO TID PRN MDD 3 tabs PRN (Reason: pain) Qty: 70 RF: 0 Space Chamber Plus 1 EACH spacer 1 ea Miscellaneous Q4H PRN PRNQty: 1 RF: 0 Narcan 4 MG spray,non-aerosol 4 mg NS DAILY PRN PRNQty: 2 RF: 0 Latuda 20 mg Tablet 20 mg PO DAILY RF: 0 Discharge Instructions Additional Instructions: May shower. Apply heating pad to left buttock as needed for comfort. Stand Alone Forms: Nursing Discharge Form Referrals: Haleigh Gracia MD [ [facility] STAFF PHYSICIAN] - (Follow-up in office on 08/26/18 or 08/27/18 for drain removal) Jonny Pettit MD [Primary Care Provider] - (Follow-up on 08/23/18 re: Coumadin dosing and pain medication.) Activity:: Activity as Tolerated Equipment/Supplies:: No Equipment Needed Diet:: As Tolerated Discharge Orders Discharge Orders: Discharge Order (Routine); Ordered 08/22/18 Ordered By: Lico Machado Exam Const General: cooperative and no acute distress Nutritional Appearance: average body habitus Orientation: alert and oriented x3 HENMT Head: normocephalic and atraumatic Eyes Sclera: sclerae normal Resp Effort & Inspection: normal respiratory effort and able to speak in complete sentences Skin Other: left buttock - minimal bruising, incision site - clean and healing well, moderate serous drainage on gauze, no odor or purulence noted Neuro General: alert and oriented x3 Speech: speech normal DS: Data Vitals/I&O Vitals and I&O: Vital Signs Temperature 36.4 C L 08/22/18 07:34 Temperature Source Tympanic 08/22/18 07:34 Pulse 62 08/22/18 07:34 Pulse Rhythm Regular 08/21/18 20:55 Respiratory Rate 16 08/22/18 07:34 Respiratory Effort Non-Labored 08/21/18 20:55 Respiratory Depth Normal 08/21/18 20:55 Respiratory Pattern Normal 08/21/18 20:55 Blood Pressure 121/60 08/22/18 07:34 Blood Pressure Position Sitting 08/20/18 08:05 Pulse Oximetry 99 08/22/18 07:34 Oxygen Delivery Method Room Air 08/22/18 07:34 Oxygen Flow Rate 0 08/22/18 07:34 Pain Level 7 08/22/18 02:17 Comment 08/22/18 03:30 Intake & Output 08/21/18 08/21/18 08/22/18 11:59 23:59 11:59 Intake Total 350 / 2740 2390 / 2740 50 / 50 Output Total 1750 / 2150 400 / 2150 Balance -1400 / 590 1989 / 590 50 / 50 Intake: IV 1100 / 1100 50 / 50 Oral 350 / 1640 1290 / 1640 Output: Urine 1750 / 2150 400 / 2150 Other: Urine Color Yellow Yellow Urine Appearance Clear Clear Urine Odor None Voiding Methods Toilet Toilet Labs on day of discharge: Labs from last 24 hours 08/22/18 08/22/18 07:20 07:20 WBC 8.55 D RBC 3.62 L Hgb 10.4 L D Hct 31.5 L MCV 87.0 MCH 28.7 MCHC 33.0 RDW 14.2 Plt Count 166 MPV 11.8 H Immature Gran % 0.1 Neutrophils % 80.0 Lymphocytes % 13.6 Monocytes % 6.0 Eosinophils % 0.2 Basophils % 0.1 Absolute Neutrophils 6.84 H Absolute Lymphocytes 1.16 L Absolute Monocytes 0.51 Absolute Eosinophils 0.02 Absolute Basophils 0.01 PT 59.1 H INR 5.8 H* D Preliminary micro results at discharge 08/20/18 08:29 Blood Culture - Preliminary Blood NO GROWTH 48 HOURS 08/20/18 11:29 Anaerobic Culture - Preliminary Buttock - Left 08/20/18 11:29 Surgical Culture - Preliminary Buttock - Left Staph aureus, MRSA 08/20/18 09:30 Blood Culture - Preliminary Blood NO GROWTH 24 HOURS [facility] Medical History Panic disorder (Chronic 03/21/16) Hypothyroidism (Chronic) Gastroesophageal reflux disease with esophagitis (Chronic) Chronic back pain greater than 3 months duration (Chronic 12/29/14) Asthma (Chronic 11/08/12) Allergic rhinitis (Chronic 09/21/15) ADHD (attention deficit hyperactivity disorder), 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) Right lower quadrant abdominal pain (Resolved) Migraine headache without aura (Chronic) Intractable vomiting (Resolved) Cannabis abuse with cannabis-induced disorder (Chronic) B12 deficiency (Chronic) Factor V Leiden mutation (Chronic) History of DVT (deep vein thrombosis) (Chronic) Intractable vomiting with nausea (Acute) Asthma (Chronic) Chronic anticoagulation (Chronic) Depression (Chronic) Factor V Leiden (Chronic) GERD (gastroesophageal reflux disease) (Chronic) Hypothyroidism (Chronic) Migraine headache (Chronic) Nephrolithiasis (Chronic) Recurrent deep vein thrombosis (DVT) (Chronic) Cellulitis (Resolved) Cyst of fallopian tube (Resolved) Surgical History S/P appendectomy (Acute 12/24/17) 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) Abdominal hysterectomy (~2009) Arthroplasty of knee (~1999) Bilateral salpingectomy with oophorectomy (~2008) Cervical Conization/LEEP Cholecystectomy THUMB RECONSTRUCTION Social History Smoking/Tobacco Use Status: Never Alcohol Intake: current Alcohol Intake frequency: 0-2 drinks per day Drug use: Occasionally Substance use type: marijuana Do you feel safe at home: Yes Do you feel safe in your relationship?: Yes
[2018-08-22 11:31] VITALS: BP 126/91; PULSE 62; RESP 16; TEMP 36.7; O2SAT 100
== END 2018-08-22 12:21 | disposition home or self-care (01) ==
LOC: ER 10:33 → MS 12:31
PROVIDERS: Admitting Provider Surgery; Emergency Provider Emergency Medicine; PCP Family Medicine; Visit Provider Surgery
PROC: 0J990ZZ Drainage of Buttock Subcutaneous Tissue and Fascia, Open Approach (ICD-10-PCS; CPT 46040; principal; 2018-08-20 11:00)
DX: L02.31 Cutaneous abscess of buttock (principal); L03.317 Cellulitis of buttock; B95.62 Methicillin resistant Staphylococcus aureus infection as the cause of diseases classified elsewhere; Z16.29 Resistance to other single specified antibiotic; Z16.19 Resistance to other specified beta lactam antibiotics; D68.51 Activated protein C resistance; Z79.01 Long term (current) use of anticoagulants; Z79.891 Long term (current) use of opiate analgesic
CPT/HCPCS: 10061; 36415; 80053; 87040; 87077; 94640; 96365; 96366; 99219; 99222; 99232; 99239; NC; 74177; 81003; 81015; 83605; 85025; 85610; 87070; 87075; 87186; 87205; G0378; J0696; J1100; J1885; J3010; J3370; J3490

== ENCOUNTER 2018-08-25 13:30 | Outpatient (CLI) | payer MEDICARE, MEDICAID, SELFPAY | END 2018-08-25 13:50 | PROVIDERS: PCP Family Medicine; Visit Provider Physical Therapy Assistant | DX: Z48.817 Encounter for surgical aftercare following surgery on the skin and subcutaneous tissue (principal); Z48.02 Encounter for removal of sutures; L02.31 Cutaneous abscess of buttock; B37.3 Candidiasis of vulva and vagina ==

== ENCOUNTER 2018-08-28 01:46 | Outpatient (RCR) | payer MEDICARE, MEDICAID, SELFPAY ==
[2018-08-22] MEDS: Normal Saline Flush 10 ML SYR IVP (20:17)
[2018-08-22 21:59] VITALS: BP 140/70; PULSE 70; RESP 17; TEMP 36.6; O2SAT 96
[2018-08-23 07:36] LABS: CREATININE 1.08 mg/dL (0.55-1.02); Estimated GFR 56.48 (mL/min/1.73m2)
[2018-08-23] MEDS: Normal Saline Flush 10 ML SYR IVP ×2 (08:00→21:57)
[2018-08-24] MEDS: Normal Saline Flush 10 ML SYR IVP (08:04)
[2018-08-25] MEDS: Normal Saline Flush 10 ML SYR IVP ×2 (07:57→21:30)
[2018-08-26] MEDS: Normal Saline Flush 10 ML SYR IVP (08:15)
[2018-08-27] MEDS: Normal Saline Flush 10 ML SYR IVP ×2 (08:10→20:30)
[2018-08-27 12:41] LABS: INR 1.5 (0.9-1.1)
[2018-08-28] MEDS: Normal Saline Flush 10 ML SYR IVP (07:59)
[2018-08-28] MEDS: Bacitracin 1 PACKET (09:54)
== END 2018-09-17 23:59 | disposition home or self-care (01) ==
LOC: INF 01:46
PROVIDERS: PCP Family Medicine; Visit Provider Surgery
DX: L02.31 Cutaneous abscess of buttock (principal); L03.317 Cellulitis of buttock; B95.62 Methicillin resistant Staphylococcus aureus infection as the cause of diseases classified elsewhere; I82.91 Chronic embolism and thrombosis of unspecified vein; Z79.01 Long term (current) use of anticoagulants; Z45.2 Encounter for adjustment and management of vascular access device
CPT/HCPCS: 36415; 36569; 96365; 96366; 80202; 82565; 85610; 85730; J3370

== ENCOUNTER 2018-08-30 10:03 | Outpatient (CLI) | payer MEDICARE, MEDICAID, SELFPAY ==
[2018-08-30 12:15] LABS: Prothrombin Time 48.7 sec (9.3-11.0)
[2018-08-30 12:31] LABS: INR 4.8 (0.9-1.1)
== END 2018-08-30 10:23 ==
PROVIDERS: PCP Family Medicine; Visit Provider Family Medicine
DX: I82.91 Chronic embolism and thrombosis of unspecified vein (principal); Z79.01 Long term (current) use of anticoagulants; Z48.817 Encounter for surgical aftercare following surgery on the skin and subcutaneous tissue; L02.31 Cutaneous abscess of buttock; B37.9 Candidiasis, unspecified
CPT/HCPCS: 36415; 85610

== ENCOUNTER 2018-09-10 10:33 | Outpatient (CLI) | payer MEDICARE, MEDICAID, SELFPAY ==
[2018-09-10 12:09] LABS: Bilirubin Moderate (Negative); Blood Large (Negative); Clarity Cloudy; Glucose Negative (Negative); Ketones Trace mg/dL (Negative); Leukocyte Esterase Moderate (Negative); Nitrite Positive (Negative); Specific Gravity 1.025 (1.005-1.025)
[2018-09-10 12:21] LABS: RBC >50 (0-2); WBC >50 HPF (0-5)
[2018-09-10 12:22] LABS: C & S Indicated? Yes
[2018-09-10 12:51] LABS: Prothrombin Time > 83.4 sec (9.3-11.0)
== END 2018-09-10 10:53 ==
PROVIDERS: Physical Therapy Assistant; PCP Family Medicine; Visit Provider Family Medicine
DX: R31.9 Hematuria, unspecified (principal); I82.91 Chronic embolism and thrombosis of unspecified vein; Z79.01 Long term (current) use of anticoagulants; Z95.5 Presence of coronary angioplasty implant and graft; Z48.89 Encounter for other specified surgical aftercare
CPT/HCPCS: 36415; 87077; 99212; 81003; 81015; 85610; 87086; 87186

== ENCOUNTER 2018-09-11 00:40 | Outpatient (CLI) | payer MEDICARE, MEDICAID, SELFPAY ==
[2018-09-11 11:11] LABS: Prothrombin Time > 83.4 sec (9.3-11.0)
== END 2018-09-11 01:00 ==
PROVIDERS: PCP Family Medicine; Visit Provider Family Medicine
DX: I82.91 Chronic embolism and thrombosis of unspecified vein (principal); Z79.01 Long term (current) use of anticoagulants
CPT/HCPCS: 36415; 85610

== ENCOUNTER 2018-09-11 11:41 | Emergency (ER) | payer MEDICARE, MEDICAID, SELFPAY ==
[2018-09-11 11:46] VITALS: BP 145/89; PULSE 63; RESP 18; TEMP 36.6; O2SAT 100
[2018-09-11 11:49] VITALS: RESP 20
[2018-09-11 12:05] LABS: Abs Immature Grans 0.01 k/cumm (0.0-0.09); Absolute Basophil Count 0.02 k/cumm (0.0-0.2); Absolute Lymphocyte Count 1.31 k/cumm (1.2-3.4); Absolute Monocyte Count 0.61 k/cumm (0.11-0.7); Absolute Neutrophil Count 6.85 k/cumm (1.2-6.7); Basophils % 0.2; Eosinophils % 2.2; HCT 42.8 % (36.0-46.0); HGB 14.6 g/dL (12.0-15.5); Immature Grans % 0.1; Lymphocytes % 14.6; Mean Corp. HGB Concentration 34.1 g/dL (32.0-36.0); Mean Corpuscular Hemoglobin 28.9 pg (27.0-33.0); Mean Corpuscular Volume 84.6 fL (80-95); Mean Platelet Volume 11.8 fL (8.0-11.0); Monocytes % 6.8; Neutrophils % 76.1; Platelet Count 209 x1000/uL (130-400); RBC 5.06 m/cumm (4.00-5.20); RBC Distribution Width 14.6 % (11.7-14.6)
[2018-09-11 12:18] LABS: ALT 19 U/L (12-78); AST 11 U/L (15-37); Albumin 4.4 g/dL (3.4-5.0); Alkaline Phosphatase 54 U/L (46-116); Anion Gap 6.6 mmol/L (3-11); BUN 12 mg/dL (7-18); Bilirubin, Total 1.4 mg/dL (0.2-1.0); CO2 32.4 mmol/L (21.0-32.0); CREATININE 0.86 mg/dL (0.55-1.02); Calcium 9.2 mg/dL (8.5-10.1); Chloride 102 mmol/L (98-107); Glucose 94 mg/dL (70-100); Potassium 3.1 mmol/L (3.5-5.1); Sodium 141 mmol/L (136-145); Total Protein 7.6 g/dL (6.4-8.2)
[2018-09-11 12:22] LABS: Prothrombin Time > 83.4 sec (9.3-11.0)
--- NOTE | 2018-09-11 12:39 | ED.GENADUL_ITS ---
Discharge Plan Disposition Patient Disposition: HOME Condition: Good Discharge Details Chief Complaint: GenMedical Clinical Impression: Elevated INR Primary Care Provider: Jonny Pettit ED Provider: Kobi Powers Home Meds and New Rx's Prescriptions: No Action clonazepam 1 mg tablet 1 mg PO TID PRN (Reason: anxiety) Qty: 90 RF: 2 methylphenidate HCl 20 mg tablet 20 mg PO TID MDD 60 mg Qty: 84 RF: 0 hydrocodone-acetaminophen 7.5-325 mg tablet 1 tab PO TID PRN MDD 3 tabs PRN (Reason: pain) Qty: 66 RF: 0 fluconazole [Diflucan] 100 mg tablet 100 mg PO DAILY Qty: 3 RF: 0 Citracal + Bone Density 1 EACH tablet 1 ea PO BID RF: 0 cyproheptadine 4 MG tablet 4 mg PO HS Qty: 90 RF: 3 ipratropium-albuterol 3 ML solution for nebulization 3 ml Inhalation Q4H PRN MDD 6 times PRNQty: 1 RF: 0 omeprazole 40 MG capsule,delayed release(DR/EC) 40 mg PO DAILY PRNQty: 90 RF: 3 metoclopramide HCl 5 MG/1 ML solution 10 mg IM ONCE Qty: 1 RF: 0 fexofenadine 180 MG tablet 180 mg PO DAILY Qty: 90 RF: 4 epinephrine [EpiPen 2-Nino] 0.3 MG/0.3 ML auto-injector 0.3 mg IM ONCE Qty: 1 RF: 1 warfarin [Coumadin] 5 MG tablet 0 - 10 mg PO HS PRN 90 Days Qty: 100 RF: 3 ketorolac 5 ML drops 1 drp Ophthalmic QID PRNQty: 5 RF: 3 triamcinolone acetonide 15 GM cream Topical BID PRNQty: 60 RF: 0 levothyroxine [Synthroid] 100 mcg tablet 100 mcg PO QPM Qty: 90 RF: 4 clotrimazole-betamethasone [Lotrisone] 1-0.05 % cream 1 applic Topical BID Qty: 45 RF: 1 sumatriptan succinate 6 mg/0.5 mL pen injector 6 mg subcut As directed MDD 12 mg Qty: 8 RF: 5 albuterol sulfate [ProAir HFA] 90 mcg/actuation HFA aerosol inhaler 2 puff Inhalation Q6H PRN MDD 6 puffs Qty: 3 RF: 4 Flovent HFA 220 mcg/actuation HFA aerosol inhaler 2 inh Inhalation BID Qty: 3 RF: 4 albuterol sulfate 1.25 mg/3 mL solution for nebulization 1.25 mg Inhalation Q6H PRN (Reason: shortness of breath or wheezing) Qty: 75 RF: 3 topiramate [Topamax] 200 mg tablet 400 mg PO HS Qty: 180 RF: 4 sumatriptan succinate 4 mg/0.5 mL pen injector 4 mg SC Q1-4H PRN (Reason: migraine headache) Qty: 1 RF: 4 Space Chamber Plus 1 EACH spacer 1 ea Miscellaneous Q4H PRN PRNQty: 1 RF: 0 Narcan 4 MG spray,non-aerosol 4 mg NS DAILY PRN PRNQty: 2 RF: 0 Latuda 20 mg Tablet 20 mg PO DAILY RF: 0 Discharge Instructions Instructions: Elevated INR (ED) Additional Instructions: Please continue to hold your Coumadin. Please come back to the lab tomorrow to have your INR redrawn. If you notice any return of your blood in your urine, coughing up blood, pain in your joints, severe headache, or other complaints please return immediately for reassessment. If you notice any worsening of your symptoms, or any new symptoms such as vomiting, diarrhea, fever, chills, shortness of breath, chest pain, numbness, weakness, or fainting , please return immediately to the emergency department for reevaluation. Please follow up with your primary care provider as soon as possible for reassessment and reevaluation. As always, it was a pleasure participating in your medical care today. Referrals: Jonny Pettit MD [Primary Care Provider] - Medical Decision Making This is a pleasant 38-year-old female with a past medical history of factor V Leiden disorder, who is chronically on Coumadin who presents today for elevated INR. She initially had mild hematuria, which is now resolved, however when she went to be evaluated by her PCP they noted that her INR was greater than 8.2. She was given 2.5 mg of vitamin K, scheduled for repeat trauma this morning. Repeat draw continues to demonstrate an elevated INR. Her hematuria has resolved, she has no symptoms of hematochezia melena hematemesis or hemoptysis. No signs of severe bruising. No evidence of active bleeding vital signs. Vital signs are notably reassuring with no tachycardia. Labs were drawn here to evaluate for any signs of anemia, hemoglobin level is normal, platelet count is normal, INR is certainly elevated at greater than 8.2. however the remainder of her work-up was otherwise benign. We will give an additional 2.5 mg of vitamin K here as she has no active bleeding. No indications for PCC at this time. No indications for current admission. We will have her get her INR redrawn tomorrow, and follow-up at that time. If it continues to be elevated she may require additional therapy including inpatient stay. We discussed red flags which to return. I have extensively reviewed the treatment plan and discharge instructions with the patient. I have addressed all patient concerns at this time. The patient was made aware of what symptoms to monitor for that would warrant a return to the emergency department. Discussed the plan with the patient, they demonstrate verbal understanding and agreement with our assessment and plan at this time. HPI General Date/Time Provider Initiated Documentation: 09/11/18 11:42 . HPI Narrative: This is a 38-year-old female with a past medical history of factor V Leiden disease who is on Coumadin who presents today for evaluation of elevated INR. The patient was recently on IV vancomycin for a leg abscess that was incised and drained, she subsequently got a yeast infection was then on Diflucan. This is recently finished. She did notice a small amount of blood in her urine 48 hours ago, went and saw her primary care provider, who noted that her INR was greater than 8.2. The held her Coumadin yesterday, and gave her 2.5 mg of oral vitamin K. Instructed her to follow-up this morning for INR recheck. Repeat INR is again elevated greater than 8.2, however the patient does state that the hematuria has near completely resolved. There was concern for questionable infection on her PCP visit, however they were pending on urine culture at that time to help decide whether or not to treat as she was otherwise asymptomatic. The patient continues to remain asymptomatic from a urinary perspective. Hematuria has essentially resolved. She has no dysuria or increased urinary frequency. She denies any significant burning. She denies any hemoptysis, hematochezia, melena, bleeding in her conjunctiva, or other abnormalities. She denies any abdominal pain chest pain or shortness of breath. No other complaints at this time. Related Data Home Medications Medication Instructions Recorded Confirmed Citracal + Bone Density 1 ea PO BID tab-cap 11/09/12 09/11/18 Space Chamber Plus #1 spacer 05/01/14 09/11/18 cyproheptadine 4 mg PO HS #90 tab-cap 06/04/16 09/11/18 Narcan 4 mg NS DAILY PRN PRN #2 spray 12/08/16 09/11/18 ipratropium-albuterol 3 ml INHALATION Q4H PRN PRN #1 box 01/23/17 09/11/18 MDD 6 times omeprazole 40 mg PO DAILY PRN #90 cap 07/28/17 09/11/18 metoclopramide HCl 10 mg IM ONCE #1 ml 08/05/17 09/11/18 fexofenadine 180 mg PO DAILY #90 tab-cap 08/10/17 09/11/18 epinephrine [EpiPen 2-Nino] 0.3 mg IM ONCE #1 ea 09/17/17 09/11/18 warfarin [Coumadin] 0 - 10 mg PO HS PRN 90 Days #100 10/06/17 09/11/18 tab-cap ketorolac 1 drp OPHTHALMIC QID PRN #5 ml 10/08/17 09/11/18 triamcinolone acetonide 0 gm TOPICAL BID PRN #60 g 10/16/17 09/11/18 levothyroxine 100 mcg tablet 100 mcg PO QPM #90 tab 02/15/18 09/11/18 clotrimazole-betamethasone 1 1 applic TOPICAL BID #45 gm 03/05/18 09/11/18 %-0.05 % topical cream sumatriptan 6 mg/0.5 mL 6 mg SUBCUT As directed #8 pen MDD 04/27/18 09/11/18 subcutaneous pen injector 12 mg albuterol sulfate HFA 90 2 puff INHALATION Q6H PRN #3 04/29/18 09/11/18 mcg/actuation aerosol inhaler inhaler MDD 6 puffs fluticasone propionate 220 2 inh INHALATION BID #3 inhaler 04/29/18 09/11/18 mcg/actuation HFA aerosol inhaler albuterol sulfate 1.25 mg/3 mL 1.25 mg INHALATION Q6H PRN #75 ml 05/20/18 09/11/18 solution for nebulization Latuda 20 mg PO DAILY 05/22/18 09/11/18 Topamax 200 mg tablet 400 mg PO HS #180 tab NS 06/08/18 09/11/18 sumatriptan 4 mg/0.5 mL 4 mg SC Q1-4H PRN #1 ml 07/23/18 09/11/18 subcutaneous pen injector fluconazole 100 mg tablet 100 mg PO DAILY #3 tab 08/30/18 09/11/18 clonazepam 1 mg tablet 1 mg PO TID PRN #90 tab 08/31/18 09/11/18 hydrocodone 7.5 mg-acetaminophen 1 tab PO TID PRN PRN #66 tab MDD 3 08/31/18 09/11/18 325 mg tablet tabs methylphenidate 20 mg tablet 20 mg PO TID #84 tab-cap MDD 60 mg 08/31/18 09/11/18 Previous Rx's Medication Instructions Recorded Space Chamber Plus #1 spacer 05/01/14 Narcan 4 mg NS DAILY PRN PRN #2 spray 12/08/16 metoclopramide HCl 10 mg IM ONCE #1 ml 08/05/17 fexofenadine 180 mg PO DAILY #90 tab-cap 08/10/17 epinephrine [EpiPen 2-Nino] 0.3 mg IM ONCE #1 ea 09/17/17 warfarin [Coumadin] 0 - 10 mg PO HS PRN 90 Days #100 10/06/17 tab-cap levothyroxine 100 mcg tablet 100 mcg PO QPM #90 tab 02/15/18 clotrimazole-betamethasone 1 1 applic TOPICAL BID #45 gm 03/05/18 %-0.05 % topical cream sumatriptan 6 mg/0.5 mL 6 mg SUBCUT As directed #8 pen MDD 04/27/18 subcutaneous pen injector 12 mg albuterol sulfate HFA 90 2 puff INHALATION Q6H PRN #3 04/29/18 mcg/actuation aerosol inhaler inhaler MDD 6 puffs fluticasone propionate 220 2 inh INHALATION BID #3 inhaler 04/29/18 mcg/actuation HFA aerosol inhaler albuterol sulfate 1.25 mg/3 mL 1.25 mg INHALATION Q6H PRN #75 ml 05/20/18 solution for nebulization Topamax 200 mg tablet 400 mg PO HS #180 tab NS 06/08/18 sumatriptan 4 mg/0.5 mL 4 mg SC Q1-4H PRN #1 ml 07/23/18 subcutaneous pen injector fluconazole 100 mg tablet 100 mg PO DAILY #3 tab 08/30/18 clonazepam 1 mg tablet 1 mg PO TID PRN #90 tab 08/31/18 hydrocodone 7.5 mg-acetaminophen 1 tab PO TID PRN PRN #66 tab MDD 3 08/31/18 325 mg tablet tabs methylphenidate 20 mg tablet 20 mg PO TID #84 tab-cap MDD 60 mg 08/31/18 Allergies Allergy/AdvReac Type Severity Reaction Status Date / Time aripiprazole [From Abilify] Allergy Severe Rash, hives Verified 09/11/18 11:48 doxycycline Allergy Severe Anaphylaxsi Verified 09/11/18 11:48 s levetiracetam [From [facility]] Allergy Severe RASH/HIVES Verified 09/11/18 11:48 sulfamethoxazole Allergy Severe Hives Verified 09/11/18 11:48 venom-honey bee Allergy Severe unknown Verified 09/11/18 11:48 Penicillins Allergy Intermediate Skin Rash Verified 09/11/18 11:48 chlorhexidine Allergy Unknown unknown Verified 09/11/18 11:48 Sulfa (Sulfonamide Allergy Verified 09/11/18 11:48 Antibiotics) mold AdvReac Severe Wheezing Verified 09/11/18 11:48 oxycodone [Oxycodone] AdvReac Severe vomits Verified 09/11/18 11:48 paroxetine AdvReac Severe Irritability Verified 09/11/18 11:48 and anger dicloxacillin [Dicloxacillin] AdvReac Mild Nausea Verified 09/11/18 11:48 gabapentin AdvReac Mild hives Verified 09/11/18 11:48 verapamil [Verapamil] AdvReac Worsening Verified 09/11/18 11:48 migraine nuts Allergy Severe Anaphylaxsi Uncoded 09/11/18 11:48 s General Stated Complaint: GenMedical RYNE: 3 Review of Systems Review of Systems All systems reviewed & are unremarkable except as noted in HPI and below PFSH Social History Smoking/Tobacco Use Status: Never Alcohol Intake: current Alcohol Intake frequency: 0-2 drinks per day Drug use: Occasionally Substance use type: marijuana Do you feel safe at home: Yes Do you feel safe in your relationship?: Yes Exam Narrative Exam Narrative: 1.Const: Well-nourished, Well-developed, appearing stated age 2.Eyes: PERRL, no conjunctival injection, and symmetrical lids. 3.ENT: Atraumatic external nose and ears. Moist MM. Neck: Symmetric, trachea midline, No thyromegaly. 4.CVS: +S1/S2, No murmurs or gallops. Peripheral pulses 2+ and equal in all extremities. Brisk capillary refill in all extremities. 5.RESP: Unlabored respiratory effort. Clear to auscultation bilaterally. No wheezes rales or rhonchi 6.GI: Soft, Nontender/Nondistended, No hepatosplenomegaly. No guarding or rebound. 7.MSK: Normocephalic/Atraumatic, Extremities w/o deformity or ttp No cyanosis or clubbing, Normal movement of all extremities 8.Skin: Warm, Dry. No rashes or lesions. I&D site on the patient's left lower extremity demonstrates a clean dry and intact extremely well healing postop incision site. No evidence of drainage, excellent wound healing. No signs of bleeding or discharge whatsoever. 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 Sensation grossly intact, no focal neurologic deficits. 10.Psych: (AAO) x3. Appropriate mood and affect Course Vital Signs Temperature 36.6 C 09/11/18 11:46 Pulse 63 09/11/18 11:46 Respiratory Rate 18 09/11/18 11:46 Blood Pressure 145/89 H 09/11/18 11:46 Pulse Oximetry 100 09/11/18 11:46 Temperature 36.6 C 09/11/18 11:46 Temperature Source Temporal Artery Scan 09/11/18 11:46 Pulse 63 09/11/18 11:46 Respiratory Rate 20 09/11/18 11:49 Respiratory Effort Non-Labored 09/11/18 11:49 Respiratory Depth Normal 09/11/18 11:49 Respiratory Pattern Normal 09/11/18 11:49 Blood Pressure 145/89 H 09/11/18 11:46 Pulse Oximetry 100 09/11/18 11:46 Oxygen Delivery Method Room Air 09/11/18 11:46 Oxygen Flow Rate 0 09/11/18 11:46 Pain Level 0 09/11/18 11:46 Lab/Test Results Lab/Test Results: Laboratory Tests Range/Units 09/11/18 09/11/18 09/11/18 11:58 11:58 11:58 WBC (4.4-10.8) k/cumm 9.00 RBC (4.00-5.20) m/cumm 5.06 Hgb (12.0-15.5) g/dL 14.6 Hct (36.0-46.0) % 42.8 MCV (80-95) fL 84.6 MCH (27.0-33.0) pg 28.9 MCHC (32.0-36.0) g/dL 34.1 RDW (11.7-14.6) % 14.6 Plt Count (130-400) x1000/uL 209 MPV (8.0-11.0) fL 11.8 H Immature Gran % 0.1 Neutrophils % 76.1 Lymphocytes % 14.6 Monocytes % 6.8 Eosinophils % 2.2 Basophils % 0.2 Absolute Neutrophils (1.2-6.7) k/cumm 6.85 H Absolute Lymphocytes (1.2-3.4) k/cumm 1.31 Absolute Monocytes (0.11-0.7) k/cumm 0.61 Absolute Eosinophils (0.0-0.7) k/cumm 0.20 Absolute Basophils (0.0-0.2) k/cumm 0.02 PT (9.3-11.0) sec > 83.4 H INR (0.9-1.1) > 8.2 H* APTT (21.0-31.4) sec 50.0 H Sodium (136-145) mmol/L 141 Potassium (3.5-5.1) mmol/L 3.1 L Chloride (98-107) mmol/L 102 Carbon Dioxide (21.0-32.0) mmol/L 32.4 H Anion Gap (3-11) mmol/L 6.6 BUN (7-18) mg/dL 12 Creatinine (0.55-1.02) mg/dL 0.86 Estimated GFR/1.73 m2 (mL/min/1.73m2) >= 60.00 Glucose (70-100) mg/dL 94 Calcium (8.5-10.1) mg/dL 9.2 Total Bilirubin (0.2-1.0) mg/dL 1.4 H AST (15-37) U/L 11 L ALT (12-78) U/L 19 Alkaline Phosphatase (46-116) U/L 54 Total Protein (6.4-8.2) g/dL 7.6 Albumin (3.4-5.0) g/dL 4.4
[2018-09-11] MEDS: Phytonadione 5 MG TABLET 2.5 MG PO (13:03)
== END 2018-09-11 13:06 | disposition home or self-care (01) ==
PROVIDERS: Emergency Provider Student in an Organized Health Care Education/Training Program; PCP Family Medicine
DX: R79.1 Abnormal coagulation profile (principal); T45.515A Adverse effect of anticoagulants, initial encounter; D68.51 Activated protein C resistance; Z79.01 Long term (current) use of anticoagulants
CPT/HCPCS: 36415; 80053; 99283; 85025; 85610; 85730

== ENCOUNTER 2018-09-12 10:05 | Outpatient (CLI) | payer MEDICARE, MEDICAID, SELFPAY ==
[2018-09-12 10:18] LABS: Platelet Count 197 x1000/uL (130-400)
[2018-09-12 10:47] LABS: INR 2.9 (0.9-1.1); PTT Activated 33.9 sec (21.0-31.4); Prothrombin Time 29.3 sec (9.3-11.0)
== END 2018-09-12 10:25 ==
PROVIDERS: PCP Family Medicine; Visit Provider Student in an Organized Health Care Education/Training Program
DX: R79.1 Abnormal coagulation profile (principal)
CPT/HCPCS: 36415; 85049; 85610; 85730

== ENCOUNTER 2018-09-14 09:53 | Outpatient (CLI) | payer MEDICARE, MEDICAID, SELFPAY ==
[2018-09-14 10:19] LABS: INR 1.2 (0.9-1.1); Prothrombin Time 12.1 sec (9.3-11.0)
== END 2018-09-14 10:13 ==
PROVIDERS: PCP Family Medicine; Visit Provider Family Medicine
DX: I82.91 Chronic embolism and thrombosis of unspecified vein (principal); Z79.01 Long term (current) use of anticoagulants
CPT/HCPCS: 36415; 85610

== ENCOUNTER 2018-09-17 02:04 | Outpatient (CLI) | payer MEDICARE, MEDICAID, SELFPAY ==
[2018-09-17 10:22] LABS: INR 2.5 (0.9-1.1); Prothrombin Time 25.4 sec (9.3-11.0)
== END 2018-09-17 02:24 ==
PROVIDERS: PCP Family Medicine; Visit Provider Family Medicine
DX: I82.91 Chronic embolism and thrombosis of unspecified vein (principal); Z79.01 Long term (current) use of anticoagulants
CPT/HCPCS: 36415; 85610

== ENCOUNTER 2018-09-24 16:03 | Outpatient (CLI) | payer MEDICARE, MEDICAID, SELFPAY ==
[2018-09-24 16:52] LABS: Prothrombin Time 88.2 sec (9.3-11.0)
[2018-09-24 16:53] LABS: INR 8.6 (0.9-1.1)
== END 2018-09-24 16:23 ==
PROVIDERS: PCP Family Medicine; Visit Provider Family Medicine
DX: I82.91 Chronic embolism and thrombosis of unspecified vein (principal); Z79.01 Long term (current) use of anticoagulants
CPT/HCPCS: 36415; 85610

== ENCOUNTER 2018-09-25 08:54 | Outpatient (CLI) | payer MEDICARE, MEDICAID, SELFPAY ==
[2018-09-25 10:14] LABS: Prothrombin Time > 83.4 sec (9.3-11.0)
== END 2018-09-25 09:14 ==
PROVIDERS: PCP Family Medicine; Visit Provider Family Medicine
DX: I82.91 Chronic embolism and thrombosis of unspecified vein (principal); Z79.01 Long term (current) use of anticoagulants
CPT/HCPCS: 36415; 85610

== ENCOUNTER 2018-09-25 11:17 | Emergency (ER) | payer MEDICARE, MEDICAID, SELFPAY ==
[2018-09-25 11:20] VITALS: BP 136/85; PULSE 70; RESP 18; TEMP 36.5; O2SAT 100
[2018-09-25 12:06] LABS: Abs Immature Grans 0.01 k/cumm (0.0-0.09); Absolute Basophil Count 0.03 k/cumm (0.0-0.2); Absolute Eosinophil Count 0.09 k/cumm (0.0-0.7); Absolute Lymphocyte Count 1.26 k/cumm (1.2-3.4); Absolute Monocyte Count 0.56 k/cumm (0.11-0.7); Absolute Neutrophil Count 2.86 k/cumm (1.2-6.7); Basophils % 0.6; Eosinophils % 1.9; HCT 43.1 % (36.0-46.0); HGB 14.6 g/dL (12.0-15.5); Immature Grans % 0.2; Lymphocytes % 26.2; Mean Corp. HGB Concentration 33.9 g/dL (32.0-36.0); Mean Corpuscular Hemoglobin 28.7 pg (27.0-33.0); Mean Corpuscular Volume 84.7 fL (80-95); Mean Platelet Volume 11.2 fL (8.0-11.0); Monocytes % 11.6; Neutrophils % 59.5; Platelet Count 195 x1000/uL (130-400); RBC 5.09 m/cumm (4.00-5.20); RBC Distribution Width 14.4 % (11.7-14.6); White Blood Cell Count 4.81 k/cumm (4.4-10.8)
[2018-09-25 12:17] LABS: PTT Activated 39.7 sec (21.0-31.4); Prothrombin Time 82.6 sec (9.3-11.0)
--- NOTE | 2018-09-25 12:17 | W.ED.GENAD ---
Discharge Plan Disposition Patient Disposition: HOME Condition: Stable Discharge Details Chief Complaint: GenMedical Clinical Impression: Supratherapeutic INR, Hematuria Primary Care Provider: Jonny Pettit ED Provider: Liliana Ku Home Meds and New Rx's Prescriptions: Continued clonazepam 1 mg tablet 1 mg PO TID PRN (Reason: anxiety) Qty: 90 RF: 2 methylphenidate HCl 20 mg tablet 20 mg PO TID MDD 60 mg Qty: 84 RF: 0 hydrocodone-acetaminophen 7.5-325 mg tablet 1 tab PO TID PRN MDD 3 tabs PRN (Reason: pain) Qty: 66 RF: 0 Citracal + Bone Density 1 EACH tablet 1 ea PO BID RF: 0 cyproheptadine 4 MG tablet 4 mg PO HS Qty: 90 RF: 3 ipratropium-albuterol 3 ML solution for nebulization 3 ml Inhalation Q4H PRN MDD 6 times PRNQty: 1 RF: 0 omeprazole 40 MG capsule,delayed release(DR/EC) 40 mg PO DAILY PRNQty: 90 RF: 3 epinephrine [EpiPen 2-Nino] 0.3 MG/0.3 ML auto-injector 0.3 mg IM ONCE Qty: 1 RF: 1 warfarin [Coumadin] 5 MG tablet 0 - 10 mg PO HS PRN 90 Days Qty: 100 RF: 3 ketorolac 5 ML drops 1 drp Ophthalmic QID PRNQty: 5 RF: 3 triamcinolone acetonide 15 GM cream Topical BID PRNQty: 60 RF: 0 levothyroxine [Synthroid] 100 mcg tablet 100 mcg PO QPM Qty: 90 RF: 4 clotrimazole-betamethasone [Lotrisone] 1-0.05 % cream 1 applic Topical BID Qty: 45 RF: 1 sumatriptan succinate 6 mg/0.5 mL pen injector 6 mg subcut As directed MDD 12 mg Qty: 8 RF: 5 albuterol sulfate [ProAir HFA] 90 mcg/actuation HFA aerosol inhaler 2 puff Inhalation Q6H PRN MDD 6 puffs Qty: 3 RF: 4 Flovent HFA 220 mcg/actuation HFA aerosol inhaler 2 inh Inhalation BID Qty: 3 RF: 4 albuterol sulfate 1.25 mg/3 mL solution for nebulization 1.25 mg Inhalation Q6H PRN (Reason: shortness of breath or wheezing) Qty: 75 RF: 3 topiramate [Topamax] 200 mg tablet 400 mg PO HS Qty: 180 RF: 4 sumatriptan succinate 4 mg/0.5 mL pen injector 4 mg SC Q1-4H PRN (Reason: migraine headache) Qty: 1 RF: 4 fexofenadine 180 mg tablet 180 mg PO DAILY Qty: 90 RF: 4 Space Chamber Plus 1 EACH spacer 1 ea Miscellaneous Q4H PRN PRNQty: 1 RF: 0 Narcan 4 MG spray,non-aerosol 4 mg NS DAILY PRN PRNQty: 2 RF: 0 Discharge Instructions Instructions: Elevated INR (ED) Additional Instructions: Hold your Coumadin dose tonight. Return to the hospital tomorrow for a repeat lab draw of your hemoglobin and INR. Follow-up with your primary care doctor tomorrow for directions on how to proceed further with your Coumadin dose. Return to the emergency department if you develop any worsening or new concerning symptoms. Discharge Data Discharge Date/Time-TO BE ENTERED AT DEPARTURE: 09/25/18 15:38 Discharge Physician: Liliana Ku Medical Decision Making 38-year-old female with a history of factor V Leyden deficiency, DVT, on chronic anticoagulation with Coumadin who presents for supratherapeutic INR and hematuria. Hematuria since last night. Patient states that she has been told several times in the past few weeks that she needs to be admitted for further treatment of her supratherapeutic INR but she has refused. INR 8.6 yesterday. INR today 8.2. She held her Coumadin dose last night. Patient was here today with another patient when she was called by the on-call doctor to come to the ER for evaluation of her supratherapeutic INR and hematuria. She was laughing, smiling and easily ambulatory around the room while with the other patient. She was treated with vitamin K last week for supratherapeutic R and her INR improved. She also had hematuria last week but this resolved until returned this morning. Vitals within normal limits. Patient appears nontoxic. Labs drawn on arrival note an INR of 8.1, PT of 82, PTT of 39 hemoglobin 14. Urinalysis notes 20-50 RBCs but no evidence of infection. Patient is requesting admission for treatment of her supratherapeutic INR. Discussed with patient at bedside that as her bleeding could be considered minimal and in the setting of hematuria which can be vague for a source of bleeding and may be unrelated to her anticoagulation, and not considered acute life-threatening bleeding, do not see an indication for IV treatment or admission for her supratherapeutic INR. Dose of p.o. vitamin K 2.5 mg given here. Patient instructed to hold her Coumadin dose tonight. She was given a lab slip to obtain an H&H and INR tomorrow for further evaluation by her primary care doctor with further instructions regarding if any further vitamin K or Coumadin dose needs to be held. Call was placed to on-call physician for these instructions regarding tomorrow's labs but no response. Lab Data Lab results reviewed: Yes I reviewed the patient's lab results. Laboratory Tests Range/Units 09/25/18 09/25/18 09/25/18 11:56 11:56 11:56 WBC (4.4-10.8) k/cumm 4.81 RBC (4.00-5.20) m/cumm 5.09 Hgb (12.0-15.5) g/dL 14.6 Hct (36.0-46.0) % 43.1 MCV (80-95) fL 84.7 MCH (27.0-33.0) pg 28.7 MCHC (32.0-36.0) g/dL 33.9 RDW (11.7-14.6) % 14.4 Plt Count (130-400) x1000/uL 195 MPV (8.0-11.0) fL 11.2 H Immature Gran % 0.2 Neutrophils % 59.5 Lymphocytes % 26.2 Monocytes % 11.6 Eosinophils % 1.9 Basophils % 0.6 Absolute Neutrophils (1.2-6.7) k/cumm 2.86 Absolute Lymphocytes (1.2-3.4) k/cumm 1.26 Absolute Monocytes (0.11-0.7) k/cumm 0.56 Absolute Eosinophils (0.0-0.7) k/cumm 0.09 Absolute Basophils (0.0-0.2) k/cumm 0.03 PT (9.3-11.0) sec 82.6 H INR (0.9-1.1) 8.1 H* APTT (21.0-31.4) sec 39.7 H Sodium (136-145) mmol/L 138 Potassium (3.5-5.1) mmol/L 3.8 Chloride (98-107) mmol/L 102 Carbon Dioxide (21.0-32.0) mmol/L 29.0 Anion Gap (3-11) mmol/L 7.0 BUN (7-18) mg/dL 9 Creatinine (0.55-1.02) mg/dL 0.77 Estimated GFR/1.73 m2 (mL/min/1.73m2) >= 60.00 Glucose (70-100) mg/dL 108 H Calcium (8.5-10.1) mg/dL 9.1 Total Bilirubin (0.2-1.0) mg/dL 0.5 AST (15-37) U/L 14 L ALT (12-78) U/L 18 Alkaline Phosphatase (46-116) U/L 51 Total Protein (6.4-8.2) g/dL 7.3 Albumin (3.4-5.0) g/dL 4.3 Urine Color (Yellow) Urine Clarity Urine pH (5-8) Ur Specific Smiley (1.005-1.025) Urine Protein (Negative) mg/dL Urine Ketones (Negative) mg/dL Urine Blood (Negative) Urine Nitrite (Negative) Urine Bilirubin (Negative) Urine Urobilinogen (Up TO 0.2) EU/dL Ur Leukocyte Esterase (Negative) Urine RBC (0-2) Urine WBC (0-5) HPF Ur Epithelial Cells (Negative) HPF Urine Crystals (Negative) HPF Urine Bacteria (Negative) HPF Urine Casts (Negative) LPF Urine Mucus (Negative) Ur Culture Indicated? Urine Glucose (Negative) mg/dL Range/Units 09/25/18 13:00 WBC (4.4-10.8) k/cumm RBC (4.00-5.20) m/cumm Hgb (12.0-15.5) g/dL Hct (36.0-46.0) % MCV (80-95) fL MCH (27.0-33.0) pg MCHC (32.0-36.0) g/dL RDW (11.7-14.6) % Plt Count (130-400) x1000/uL MPV (8.0-11.0) fL Immature Gran % Neutrophils % Lymphocytes % Monocytes % Eosinophils % Basophils % Absolute Neutrophils (1.2-6.7) k/cumm Absolute Lymphocytes (1.2-3.4) k/cumm Absolute Monocytes (0.11-0.7) k/cumm Absolute Eosinophils (0.0-0.7) k/cumm Absolute Basophils (0.0-0.2) k/cumm PT (9.3-11.0) sec INR (0.9-1.1) APTT (21.0-31.4) sec Sodium (136-145) mmol/L Potassium (3.5-5.1) mmol/L Chloride (98-107) mmol/L Carbon Dioxide (21.0-32.0) mmol/L Anion Gap (3-11) mmol/L BUN (7-18) mg/dL Creatinine (0.55-1.02) mg/dL Estimated GFR/1.73 m2 (mL/min/1.73m2) Glucose (70-100) mg/dL Calcium (8.5-10.1) mg/dL Total Bilirubin (0.2-1.0) mg/dL AST (15-37) U/L ALT (12-78) U/L Alkaline Phosphatase (46-116) U/L Total Protein (6.4-8.2) g/dL Albumin (3.4-5.0) g/dL Urine Color (Yellow) Yellow Urine Clarity Sl cloudy Urine pH (5-8) 7.0 Ur Specific Smiley (1.005-1.025) 1.015 Urine Protein (Negative) mg/dL 30 H Urine Ketones (Negative) mg/dL Negative Urine Blood (Negative) Large H Urine Nitrite (Negative) Negative Urine Bilirubin (Negative) Negative Urine Urobilinogen (Up TO 0.2) EU/dL 0.2 Ur Leukocyte Esterase (Negative) Negative Urine RBC (0-2) 20-50 H Urine WBC (0-5) HPF Negative Ur Epithelial Cells (Negative) HPF Many Urine Crystals (Negative) HPF Negative Urine Bacteria (Negative) HPF Negative Urine Casts (Negative) LPF Negative Urine Mucus (Negative) Heavy Ur Culture Indicated? No Urine Glucose (Negative) mg/dL Negative HPI General Mode of arrival: ambulatory. Date/Time Provider Initiated Documentation: 09/25/18 11:26. Limitations to Documentation: no limitations. Information obtained by: patient. HPI Narrative: Patient is a 38-year-old female with a history of factor V Leyden deficiency, DVT, and chronic anticoagulation on Coumadin who presents for supratherapeutic INR and hematuria. She states her hematuria started this morning. Patient states she has had difficulty with her INR over the past several weeks due to recently being on antibiotics. Patient states she had been on antibiotics for a groin abscess, yeast infection and urinary tract infection. She most recently was on antibiotics up until a few days ago. She denies any recent diet changes or recent ibuprofen which or other causes for her supratherapeutic INR. She states last week her primary care doctor treated her with vitamin K for 2 days which improved her INR and states since yesterday it has been elevated again. She states she also had hematuria at that time but it resolved until it returned this morning. Her INR yesterday was 8.6. She was advised by her primary care doctor to hold her Coumadin dose last night. Her INR today was 8.2. She was called by her primary care doctor natural resource economist provider and told the provider that she had hematuria and was advised to go to the emergency department. Of note, patient was already here in the emergency department with another patient when she was called and notified this and she checked in as a patient. She denies any headache, nosebleeds, vaginal bleeding, rectal bleeding, fever, vomiting, or diarrhea. She states she has been eating and drinking normally. She states her last dose of Coumadin was 2 days ago. Related Data Home Medications Medication Instructions Recorded Confirmed Citracal + Bone Density 1 ea PO BID tab-cap 11/09/12 09/25/18 Space Chamber Plus #1 spacer 05/01/14 09/11/18 cyproheptadine 4 mg PO HS #90 tab-cap 06/04/16 09/25/18 Narcan 4 mg NS DAILY PRN PRN #2 spray 12/08/16 09/25/18 ipratropium-albuterol 3 ml INHALATION Q4H PRN PRN #1 box 01/23/17 09/25/18 MDD 6 times omeprazole 40 mg PO DAILY PRN #90 cap 07/28/17 09/25/18 epinephrine [EpiPen 2-Nino] 0.3 mg IM ONCE #1 ea 09/17/17 09/25/18 warfarin [Coumadin] 0 - 10 mg PO HS PRN 90 Days #100 10/06/17 09/11/18 tab-cap ketorolac 1 drp OPHTHALMIC QID PRN #5 ml 10/08/17 09/25/18 triamcinolone acetonide 0 gm TOPICAL BID PRN #60 g 10/16/17 09/25/18 levothyroxine 100 mcg tablet 100 mcg PO QPM #90 tab 02/15/18 09/25/18 clotrimazole-betamethasone 1 1 applic TOPICAL BID #45 gm 03/05/18 09/25/18 %-0.05 % topical cream sumatriptan 6 mg/0.5 mL 6 mg SUBCUT As directed #8 pen MDD 04/27/18 09/25/18 subcutaneous pen injector 12 mg albuterol sulfate HFA 90 2 puff INHALATION Q6H PRN #3 04/29/18 09/25/18 mcg/actuation aerosol inhaler inhaler MDD 6 puffs fluticasone propionate 220 2 inh INHALATION BID #3 inhaler 04/29/18 09/25/18 mcg/actuation HFA aerosol inhaler albuterol sulfate 1.25 mg/3 mL 1.25 mg INHALATION Q6H PRN #75 ml 05/20/18 09/25/18 solution for nebulization Topamax 200 mg tablet 400 mg PO HS #180 tab NS 06/08/18 09/25/18 sumatriptan 4 mg/0.5 mL 4 mg SC Q1-4H PRN #1 ml 07/23/18 09/25/18 subcutaneous pen injector clonazepam 1 mg tablet 1 mg PO TID PRN #90 tab 08/31/18 09/25/18 hydrocodone 7.5 mg-acetaminophen 1 tab PO TID PRN PRN #66 tab MDD 3 08/31/18 09/25/18 325 mg tablet tabs methylphenidate 20 mg tablet 20 mg PO TID #84 tab-cap MDD 60 mg 08/31/18 09/25/18 fexofenadine 180 mg tablet 180 mg PO DAILY #90 tab-cap 09/23/18 09/25/18 Previous Rx's Medication Instructions Recorded Space Chamber Plus #1 spacer 01/12/15 Narcan 4 mg NS DAILY PRN PRN #2 spray 12/08/16 epinephrine [EpiPen 2-Nino] 0.3 mg IM ONCE #1 ea 09/17/17 warfarin [Coumadin] 0 - 10 mg PO HS PRN 90 Days #100 10/06/17 tab-cap levothyroxine 100 mcg tablet 100 mcg PO QPM #90 tab 02/15/18 clotrimazole-betamethasone 1 1 applic TOPICAL BID #45 gm 03/05/18 %-0.05 % topical cream sumatriptan 6 mg/0.5 mL 6 mg SUBCUT As directed #8 pen MDD 04/27/18 subcutaneous pen injector 12 mg albuterol sulfate HFA 90 2 puff INHALATION Q6H PRN #3 04/29/18 mcg/actuation aerosol inhaler inhaler MDD 6 puffs fluticasone propionate 220 2 inh INHALATION BID #3 inhaler 04/29/18 mcg/actuation HFA aerosol inhaler albuterol sulfate 1.25 mg/3 mL 1.25 mg INHALATION Q6H PRN #75 ml 05/20/18 solution for nebulization Topamax 200 mg tablet 400 mg PO HS #180 tab NS 06/08/18 sumatriptan 4 mg/0.5 mL 4 mg SC Q1-4H PRN #1 ml 07/23/18 subcutaneous pen injector clonazepam 1 mg tablet 1 mg PO TID PRN #90 tab 08/31/18 hydrocodone 7.5 mg-acetaminophen 1 tab PO TID PRN PRN #66 tab MDD 3 08/31/18 325 mg tablet tabs methylphenidate 20 mg tablet 20 mg PO TID #84 tab-cap MDD 60 mg 08/31/18 fexofenadine 180 mg tablet 180 mg PO DAILY #90 tab-cap 09/23/18 Allergies Allergy/AdvReac Type Severity Reaction Status Date / Time aripiprazole [From Abilify] Allergy Severe Rash, hives Verified 09/25/18 13:05 doxycycline Allergy Severe Anaphylaxsi Verified 09/25/18 13:05 s levetiracetam [From Keppra] Allergy Severe RASH/HIVES Verified 09/25/18 13:05 sulfamethoxazole Allergy Severe Hives Verified 09/25/18 13:05 venom-honey bee Allergy Severe unknown Verified 09/25/18 13:05 Penicillins Allergy Intermediate Skin Rash Verified 09/25/18 13:05 chlorhexidine Allergy Unknown unknown Verified 09/25/18 13:05 Sulfa (Sulfonamide Allergy Verified 09/25/18 13:05 Antibiotics) mold AdvReac Severe Wheezing Verified 09/25/18 13:05 oxycodone [Oxycodone] AdvReac Severe vomits Verified 09/25/18 13:05 paroxetine AdvReac Severe Irritability Verified 09/25/18 13:05 and anger dicloxacillin [Dicloxacillin] AdvReac Mild Nausea Verified 09/25/18 13:05 gabapentin AdvReac Mild hives Verified 09/25/18 13:05 verapamil [Verapamil] AdvReac Worsening Verified 09/25/18 13:05 migraine nuts Allergy Severe Anaphylaxsi Uncoded 09/25/18 13:05 s General Stated Complaint: GenMedical RYNE: 3 Review of Systems Review of Systems All systems reviewed & are unremarkable except as noted in HPI and below Constitutional Reports as per HPI, Denies chills and Denies fever(s) Eyes Denies blurry vision ENT Denies dizziness, Denies sore throat and Denies throat swelling Cardiovascular Denies chest pain and Denies dyspnea Respiratory Denies cough and Denies dyspnea Gastrointestinal Denies abdominal pain, Denies diarrhea and Denies vomiting Genitourinary Reports hematuria and Denies dysuria Musculoskeletal Denies back pain and Denies numbness Integumentary/Breasts Denies lesions and Denies rash Neurologic Denies dizziness, Denies focal weakness and Denies numbness Allergic/Immunologic Denies throat swelling [facility] Medical History Panic disorder (Chronic 03/21/16) Hypothyroidism (Chronic) Gastroesophageal reflux disease with esophagitis (Chronic) Chronic back pain greater than 3 months duration (Chronic 12/29/14) Asthma (Chronic 11/08/12) Allergic rhinitis (Chronic 09/21/15) ADHD (attention deficit hyperactivity disorder), 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) Right lower quadrant abdominal pain (Resolved) Migraine headache without aura (Chronic) Intractable vomiting (Resolved) Cannabis abuse with cannabis-induced disorder (Chronic) B12 deficiency (Chronic) Factor V Leiden mutation (Chronic) History of DVT (deep vein thrombosis) (Chronic) Intractable vomiting with nausea (Acute) Asthma (Chronic) Chronic anticoagulation (Chronic) Depression (Chronic) Factor V Leiden (Chronic) GERD (gastroesophageal reflux disease) (Chronic) Hypothyroidism (Chronic) Migraine headache (Chronic) Nephrolithiasis (Chronic) Recurrent deep vein thrombosis (DVT) (Chronic) Cellulitis (Resolved) Cyst of fallopian tube (Resolved) Surgical History S/P appendectomy (Acute 12/24/17) 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) Abdominal hysterectomy (~2009) Arthroplasty of knee (~1999) Bilateral salpingectomy with oophorectomy (~2008) Cervical Conization/LEEP Cholecystectomy THUMB RECONSTRUCTION Social History Smoking/Tobacco Use Status: Never Alcohol Intake: current Alcohol Intake frequency: 0-2 drinks per day Drug use: Occasionally Substance use type: marijuana Do you feel safe at home: Yes Do you feel safe in your relationship?: Yes Exam Const General: cooperative, healthy appearing and no acute distress HENMT Head: normal to inspection Face and sinus: normal facial exam Eyes General: appearance normal, both eyes and all related structures Pupils: PERRL EOM: EOM intact bilaterally Neck Neck: normal visual inspection and No submandibular swelling Lymphatic: no lymphadenopathy noted Chest Chest: normal inspection of the chest and no tenderness Resp Effort & Inspection: normal respiratory effort and able to speak in complete sentences Auscultation: clear to auscultation bilaterally Cardio Rate: regular rate Rhythm: regular rhythm GI Inspection: normal to inspection Palpation: soft, not firm, not rigid and nontender Auscultation: normal bowel sounds Skin General skin exam: no rashes or lesions noted Neuro General: alert, awake and oriented x3 Cognition: normal cognition Speech: speech normal Motor: muscle tone normal throughout Sensory Exam: no sensory deficits noted Extrem General: normal to inspection, full ROM, normal capillary refill and no edema Psych Appearance: grossly normal Mental Status: mental status grossly normal Speech and Movement: speech and movement normal Affect: normal affect Course Vital Signs Temperature 97.7 F 09/25/18 11:20 Pulse 70 09/25/18 11:20 Respiratory Rate 18 09/25/18 11:20 Blood Pressure 136/85 09/25/18 11:20 Pulse Oximetry 100 09/25/18 11:20 Temperature 97.7 F 09/25/18 11:20 Temperature Source Skin 09/25/18 11:20 Pulse 70 09/25/18 11:20 Respiratory Rate 18 09/25/18 11:20 Blood Pressure 136/85 09/25/18 11:20 Blood Pressure Position Sitting 09/25/18 11:20 Pulse Oximetry 100 09/25/18 11:20 Oxygen Delivery Method Room Air 09/25/18 11:20 Oxygen Flow Rate 0 09/25/18 11:20 Pain Level 9 09/25/18 11:20 Lab/Test Results Lab/Test Results: Laboratory Tests Range/Units 09/25/18 11:56 WBC (4.4-10.8) k/cumm 4.81 RBC (4.00-5.20) m/cumm 5.09 Hgb (12.0-15.5) g/dL 14.6 Hct (36.0-46.0) % 43.1 MCV (80-95) fL 84.7 MCH (27.0-33.0) pg 28.7 MCHC (32.0-36.0) g/dL 33.9 RDW (11.7-14.6) % 14.4 Plt Count (130-400) x1000/uL 195 MPV (8.0-11.0) fL 11.2 H Immature Gran % 0.2 Neutrophils % 59.5 Lymphocytes % 26.2 Monocytes % 11.6 Eosinophils % 1.9 Basophils % 0.6 Absolute Neutrophils (1.2-6.7) k/cumm 2.86 Absolute Lymphocytes (1.2-3.4) k/cumm 1.26 Absolute Monocytes (0.11-0.7) k/cumm 0.56 Absolute Eosinophils (0.0-0.7) k/cumm 0.09 Absolute Basophils (0.0-0.2) k/cumm 0.03
[2018-09-25 12:19] LABS: ALT 18 U/L (12-78); AST 14 U/L (15-37); Albumin 4.3 g/dL (3.4-5.0); Alkaline Phosphatase 51 U/L (46-116); BUN 9 mg/dL (7-18); Bilirubin, Total 0.5 mg/dL (0.2-1.0); CREATININE 0.77 mg/dL (0.55-1.02); Calcium 9.1 mg/dL (8.5-10.1); Chloride 102 mmol/L (98-107); Glucose 108 mg/dL (70-100); Potassium 3.8 mmol/L (3.5-5.1); Sodium 138 mmol/L (136-145); Total Protein 7.3 g/dL (6.4-8.2)
[2018-09-25 12:46] LABS: INR 8.1 (0.9-1.1)
[2018-09-25 13:05] VITALS: RESP 16
[2018-09-25 13:06] LABS: Bilirubin Negative (Negative); Blood Large (Negative); Clarity Sl Cloudy; Glucose Negative (Negative); Ketones Negative (Negative); Leukocyte Esterase Negative (Negative); Nitrite Negative (Negative); Specific Gravity 1.015 (1.005-1.025); Urobilinogen 0.2 EU/dL (Up TO 0.2)
[2018-09-25 13:07] VITALS: BP 141/82; PULSE 74; RESP 18; TEMP 36.4; O2SAT 100
[2018-09-25 13:14] LABS: Bacteria Negative HPF (Negative); C & S Indicated? No; Casts Negative LPF (Negative); Crystals Negative HPF (Negative); Epithelial Cells Many HPF (Negative); Mucus Heavy (Negative); RBC 20-50 (0-2); WBC Negative HPF (0-5)
[2018-09-25] MEDS: Phytonadione 5 MG TABLET 2.5 MG PO (14:05)
== END 2018-09-25 15:38 | disposition home or self-care (01) ==
PROVIDERS: Emergency Provider Physician Assistant; PCP Family Medicine
DX: R79.1 Abnormal coagulation profile (principal); T45.515A Adverse effect of anticoagulants, initial encounter; Z79.01 Long term (current) use of anticoagulants; R31.9 Hematuria, unspecified; D68.2 Hereditary deficiency of other clotting factors
CPT/HCPCS: 36415; 80053; 99283; 81003; 81015; 85025; 85610; 85730

== ENCOUNTER 2018-09-26 09:13 | Outpatient (CLI) | payer MEDICARE, MEDICAID, SELFPAY ==
[2018-09-26 09:51] LABS: HCT 39.6 % (36.0-46.0); HGB 13.3 g/dL (12.0-15.5)
[2018-09-26 09:56] LABS: INR 2.2 (0.9-1.1); Prothrombin Time 21.8 sec (9.3-11.0)
== END 2018-09-26 09:33 ==
PROVIDERS: PCP Family Medicine; Visit Provider Physician Assistant
DX: Z79.01 Long term (current) use of anticoagulants (principal); R69 Illness, unspecified; R31.9 Hematuria, unspecified
CPT/HCPCS: 36415; 85014; 85018; 85610

== ENCOUNTER 2018-09-28 08:51 | Outpatient (CLI) | payer MEDICARE, MEDICAID, SELFPAY ==
[2018-09-28 09:48] LABS: Prothrombin Time 13.5 sec (9.3-11.0)
[2018-09-28 09:57] LABS: INR 1.3 (0.9-1.1)
== END 2018-09-28 09:11 ==
PROVIDERS: PCP Family Medicine; Visit Provider Family Medicine
DX: I82.91 Chronic embolism and thrombosis of unspecified vein (principal); Z79.01 Long term (current) use of anticoagulants
CPT/HCPCS: 36415; 85610

== ENCOUNTER 2018-10-06 10:51 | Outpatient (CLI) | payer MEDICARE, MEDICAID, SELFPAY ==
[2018-10-06 11:35] LABS: Prothrombin Time 42.7 sec (9.3-11.0)
[2018-10-06 11:42] LABS: INR 4.2 (0.9-1.1)
== END 2018-10-06 11:11 ==
PROVIDERS: PCP Family Medicine; Visit Provider Family Medicine
DX: I82.91 Chronic embolism and thrombosis of unspecified vein (principal); Z79.01 Long term (current) use of anticoagulants
CPT/HCPCS: 36415; 85610

== ENCOUNTER 2018-10-10 02:11 | Outpatient (CLI) | payer MEDICARE, MEDICAID, SELFPAY ==
[2018-10-10 11:04] LABS: Prothrombin Time 45.2 sec (9.3-11.0)
[2018-10-10 11:07] LABS: INR 4.5 (0.9-1.1)
== END 2018-10-10 02:31 ==
PROVIDERS: PCP Family Medicine; Visit Provider Family Medicine
DX: I82.91 Chronic embolism and thrombosis of unspecified vein (principal); Z79.01 Long term (current) use of anticoagulants
CPT/HCPCS: 36415; 85610

== ENCOUNTER 2018-10-11 11:55 | Outpatient (CLI) | payer MEDICARE, MEDICAID, SELFPAY ==
[2018-10-11 15:09] LABS: INR 2.9 (0.9-1.1)
== END 2018-10-11 12:15 ==
PROVIDERS: PCP Family Medicine; Visit Provider Family Medicine
DX: I82.91 Chronic embolism and thrombosis of unspecified vein (principal); Z79.01 Long term (current) use of anticoagulants
CPT/HCPCS: 36415; 85610

== ENCOUNTER 2018-10-15 02:00 | Outpatient (CLI) | payer MEDICARE, MEDICAID, SELFPAY ==
[2018-10-15 10:05] LABS: INR 2.2 (0.9-1.1); Prothrombin Time 21.8 sec (9.3-11.0)
== END 2018-10-15 02:20 ==
PROVIDERS: PCP Family Medicine; Visit Provider Family Medicine
DX: I82.91 Chronic embolism and thrombosis of unspecified vein (principal); Z79.01 Long term (current) use of anticoagulants
CPT/HCPCS: 36415; 85610

== ENCOUNTER 2018-10-28 01:35 | Outpatient (CLI) | payer MEDICARE, MEDICAID, SELFPAY ==
[2018-10-28 13:20] LABS: INR 2.9 (0.9-1.1); Prothrombin Time 28.9 sec (9.3-11.0)
== END 2018-10-28 01:55 ==
PROVIDERS: PCP Family Medicine; Visit Provider Family Medicine
DX: I82.91 Chronic embolism and thrombosis of unspecified vein (principal); Z79.01 Long term (current) use of anticoagulants
CPT/HCPCS: 36415; 85610

== ENCOUNTER 2018-11-03 13:13 | Outpatient (CLI) | payer MEDICARE, MEDICAID, SELFPAY ==
[2018-11-03 14:31] LABS: Prothrombin Time 47.3 sec (9.3-11.0)
[2018-11-03 14:35] LABS: INR 4.7 (0.9-1.1)
== END 2018-11-03 13:33 ==
PROVIDERS: PCP Family Medicine; Visit Provider Family Medicine
DX: I82.91 Chronic embolism and thrombosis of unspecified vein (principal); Z79.01 Long term (current) use of anticoagulants
CPT/HCPCS: 36415; 85610

== ENCOUNTER 2018-11-07 06:26 | Inpatient (IN) | payer MEDICARE, MEDICAID, SELFPAY ==
[2018-11-07 06:29] VITALS: BP 166/85; PULSE 58; RESP 16; TEMP 36.6; O2SAT 99
--- NOTE | 2018-11-07 06:40 | ED.GENADUL_ITS ---
Discharge Plan Disposition Patient Disposition: [facility] INPATIENT Condition: Good Discharge Details Chief Complaint: EyeProblem Clinical Impression: Preseptal cellulitis, Supratherapeutic INR Primary Care Provider: Jonny Pettit ED Provider: Kobi Powers Home Meds and New Rx's Prescriptions: No Action clonazepam 1 mg tablet 1 mg PO TID PRN (Reason: anxiety) Qty: 90 RF: 2 methylphenidate HCl 20 mg tablet 20 mg PO TID MDD 60 mg Qty: 84 RF: 0 hydrocodone-acetaminophen 7.5-325 mg tablet 1 tab PO TID PRN MDD 3 tabs PRN (Reason: pain) Qty: 66 RF: 0 Citracal + Bone Density 1 EACH tablet 1 ea PO BID RF: 0 cyproheptadine 4 MG tablet 4 mg PO HS Qty: 90 RF: 3 ipratropium-albuterol 3 ML solution for nebulization 3 ml Inhalation Q4H PRN MDD 6 times PRNQty: 1 RF: 0 epinephrine [EpiPen 2-Nino] 0.3 MG/0.3 ML auto-injector 0.3 mg IM ONCE Qty: 1 RF: 1 warfarin [Coumadin] 5 MG tablet 0 - 10 mg PO HS PRN 90 Days Qty: 100 RF: 3 triamcinolone acetonide 15 GM cream 0 gm Topical BID PRNQty: 60 RF: 0 levothyroxine [Synthroid] 100 mcg tablet 100 mcg PO QPM Qty: 90 RF: 4 sumatriptan succinate 6 mg/0.5 mL pen injector 6 mg subcut As directed MDD 12 mg Qty: 8 RF: 5 albuterol sulfate [ProAir HFA] 90 mcg/actuation HFA aerosol inhaler 2 puff Inhalation Q6H PRN MDD 6 puffs Qty: 3 RF: 4 Flovent HFA 220 mcg/actuation HFA aerosol inhaler 2 inh Inhalation BID Qty: 3 RF: 4 albuterol sulfate 1.25 mg/3 mL solution for nebulization 1.25 mg Inhalation Q6H PRN (Reason: shortness of breath or wheezing) Qty: 75 RF: 3 topiramate [Topamax] 200 mg tablet 400 mg PO HS Qty: 180 RF: 4 sumatriptan succinate 4 mg/0.5 mL pen injector 4 mg SC Q1-4H PRN (Reason: migraine headache) Qty: 1 RF: 4 fexofenadine 180 mg tablet 180 mg PO DAILY Qty: 90 RF: 4 clotrimazole-betamethasone [Lotrisone] 1-0.05 % cream 1 applic Topical BID Qty: 45 RF: 1 omeprazole 40 mg capsule,delayed release(DR/EC) 40 mg PO DAILY PRN (Reason: GERD) Qty: 90 RF: 4 (DME) Space Chamber Plus 1 EACH spacer 1 ea Miscellaneous Q4H PRN Qty: 1 RF: 0 Narcan 4 MG spray,non-aerosol 4 mg NS DAILY PRN PRNQty: 2 RF: 0 Medical Decision Making This is a 38-year-old female with a past medical history of factor V Leiden disorder on chronic Coumadin, with an extensive history of antibiotic allergies and intolerance. She presents today for swelling of the left brow today. Is been present for the last 2 to 3 days. She was given prednisone by her PCP this did not change her symptoms. She feels that the initial inciting event was a bug bite however she is uncertain. She denies any acute fever or chills, she does have pain with upward vision. No pain with lateral medial or inferior movement of the eye. Patient does have notable swelling on the periorbital region on the left superior lateral eye. Bedside ultrasound shows no evidence of fluid collection. No fluctuance. There is mild induration. Signs and symptoms are concerning for cellulitis, however with the patient's pain with movement of the eye and concern for septal cellulitis. We will get a CT scan to rule out abscess or bleed the cause of her eye pain. Physical exam is otherwise benign. I did question the patient specifically on intolerance to Keflex and clindamycin, and although she has no hives or severe cutaneous reaction she states that she has prolonged episodes of violent vomiting whenever she takes either of those medications p.o. She additionally would not be a candidate for Bactrim as this interacts with Coumadin. I do feel that she may require IV antibiotics. 8:05 AM Laboratory work-up is returned, white count is elevated at 16, mild left shift, however she shows no signs of tachycardia or fever. Steroids may be a component to this. INR is notably elevated at 5.3. Electrolytes normal, renal function stable. CT scan shows no evidence of orbital or septal cellulitis, there is notable periorbital and preseptal soft tissue swelling though. No other abscess or other significant abnormality. I did discuss with the patient potential outpatient IV antibiotics, however the patient states that she does not feel comfortable going home at this point with the amount of swelling that she has. Although the patient is notably stable there is advantage to 12 to 24-hour observation. We will start antibiotics with clindamycin. We will monitor her swelling to make sure she has improvement rather than worsening of her symptoms. We will have case management be involved for outpatient infusion plan. I discussed the case with Dr. Clarke, and has accepted the patient for observation. I have extensively reviewed the treatment plan with the patient. I have addressed all patient concerns at this time. I have also discussed the plan with the admitting physician and they agree with the current assessment and plan and have agreed to assume responsibility for the patient. All parties demonstrate verbal understanding and agreement with our assessment and plan at this time. FINDINGS: Orbits: Globes are intact. Lens are located bilaterally. No retrobulbar fat stranding or hematoma. Optic nerves are symmetric and appear unremarkable. Unremarkable appearance of the extraocular muscles and lacrimal glands bilaterally. Sinuses: Polyp versus retention cyst within the right maxillary sinus. Bones/joints: No acute fracture. Soft tissues: Left periorbital preseptal soft tissue swelling, subcutaneous fat stranding, and soft tissue enhancement compatible with preseptal cellulitis. No postseptal extension. No radiopaque foreign body. No abscess. IMPRESSION: Left periorbital preseptal soft tissue swelling, subcutaneous fat stranding, and soft tissue enhancement compatible with preseptal cellulitis. No postseptal extension. No radiopaque foreign body. No abscess. Thank you for allowing us to participate in the care of your patient. Dictated and Authenticated by: Jaziel Hassan MD [facility] General Date/Time Provider Initiated Documentation: 11/07/18 06:27 . [facility] Narrative: This is a 38-year-old female with a past medical history of factor V Leiden disease, on anticoagulation with Coumadin, as well as asthma, hypothyroidism who presents today for evaluation of left eye pain. Patient states that 3 days ago she noticed a small amount of redness and pain on her left brow, she suspected that it was a insect bite at that time. She contacted her primary care provider who gave her a prescription for 5 days of prednisone. She is taken 3 days of this. Unfortunately the redness has worsened since then, it is notably tender over her left upper brow, and she now has pain with upward looking in the left eye. She denies any new fever or chills. She does admit to chronic chills but this is unchanged. She denies any significant vision changes. She denies any headache, drainage from the eye or the swelling area, nausea, vomiting, diarrhea. She has no other complaints at this time. She denies any trauma. She denies any IV or illicit drug use or recent antibiotic use. Related Data Home Medications Medication Instructions Recorded Confirmed Citracal + Bone Density 1 ea PO BID tab-cap 11/09/12 11/07/18 Space Chamber Plus #1 spacer 05/01/14 09/11/18 cyproheptadine 4 mg PO HS #90 tab-cap 06/04/16 11/07/18 Narcan 4 mg NS DAILY PRN PRN #2 spray 12/08/16 11/07/18 ipratropium-albuterol 3 ml INHALATION Q4H PRN PRN #1 box 01/23/17 11/07/18 MDD 6 times epinephrine [EpiPen 2-Nino] 0.3 mg IM ONCE #1 ea 09/17/17 11/07/18 warfarin [Coumadin] 0 - 10 mg PO HS PRN 90 Days #100 10/06/17 11/07/18 tab-cap triamcinolone acetonide 0 gm TOPICAL BID PRN #60 g 10/16/17 11/07/18 levothyroxine 100 mcg tablet 100 mcg PO QPM #90 tab 02/15/18 11/07/18 sumatriptan succinate 6 mg/0.5 mL 6 mg SUBCUT As directed #8 pen MDD 04/27/18 11/07/18 subcutaneous pen injector 12 mg albuterol sulfate 90 mcg/actuation 2 puff INHALATION Q6H PRN #3 04/29/18 11/07/18 aerosol inhaler inhaler MDD 6 puffs fluticasone propionate 220 2 inh INHALATION BID #3 inhaler 04/29/18 11/07/18 mcg/actuation HFA aerosol inhaler albuterol sulfate 1.25 mg/3 mL 1.25 mg INHALATION Q6H PRN #75 ml 05/20/18 11/07/18 solution for nebulization Topamax 200 mg tablet 400 mg PO HS #180 tab NS 06/08/18 11/07/18 sumatriptan succinate 4 mg/0.5 mL 4 mg SC Q1-4H PRN #1 ml 07/23/18 11/07/18 subcutaneous pen injector clonazepam 1 mg tablet 1 mg PO TID PRN #90 tab 08/31/18 11/07/18 hydrocodone 7.5 mg-acetaminophen 1 tab PO TID PRN PRN #66 tab MDD 3 08/31/18 11/07/18 325 mg tablet tabs methylphenidate HCl 20 mg tablet 20 mg PO TID #84 tab-cap MDD 60 mg 08/31/18 fexofenadine 180 mg tablet 180 mg PO DAILY #90 tab-cap 09/23/18 11/07/18 clotrimazole-betamethasone 1 1 applic TOPICAL BID #45 gm 10/11/18 11/07/18 %-0.05 % topical cream omeprazole 40 mg capsule,delayed 40 mg PO DAILY PRN #90 cap 10/15/18 11/07/18 release Previous Rx's Medication Instructions Recorded Space Chamber Plus #1 spacer 05/01/14 Narcan 4 mg NS DAILY PRN PRN #2 spray 12/08/16 epinephrine [EpiPen 2-Nino] 0.3 mg IM ONCE #1 ea 09/17/17 warfarin [Coumadin] 0 - 10 mg PO HS PRN 90 Days #100 10/06/17 tab-cap levothyroxine 100 mcg tablet 100 mcg PO QPM #90 tab 02/15/18 sumatriptan succinate 6 mg/0.5 mL 6 mg SUBCUT As directed #8 pen MDD 04/27/18 subcutaneous pen injector 12 mg albuterol sulfate 90 mcg/actuation 2 puff INHALATION Q6H PRN #3 04/29/18 aerosol inhaler inhaler MDD 6 puffs fluticasone propionate 220 2 inh INHALATION BID #3 inhaler 04/29/18 mcg/actuation HFA aerosol inhaler albuterol sulfate 1.25 mg/3 mL 1.25 mg INHALATION Q6H PRN #75 ml 05/20/18 solution for nebulization Topamax 200 mg tablet 400 mg PO HS #180 tab NS 06/08/18 sumatriptan succinate 4 mg/0.5 mL 4 mg SC Q1-4H PRN #1 ml 07/23/18 subcutaneous pen injector clonazepam 1 mg tablet 1 mg PO TID PRN #90 tab 08/31/18 hydrocodone 7.5 mg-acetaminophen 1 tab PO TID PRN PRN #66 tab MDD 3 08/31/18 325 mg tablet tabs methylphenidate HCl 20 mg tablet 20 mg PO TID #84 tab-cap MDD 60 mg 08/31/18 fexofenadine 180 mg tablet 180 mg PO DAILY #90 tab-cap 09/23/18 clotrimazole-betamethasone 1 1 applic TOPICAL BID #45 gm 10/11/18 %-0.05 % topical cream omeprazole 40 mg capsule,delayed 40 mg PO DAILY PRN #90 cap 10/15/18 release Allergies Allergy/AdvReac Type Severity Reaction Status Date / Time aripiprazole [From Abilify] Allergy Severe Rash, hives Verified 11/07/18 06:33 doxycycline Allergy Severe Anaphylaxsi Verified 11/07/18 06:33 s levetiracetam [From Keppra] Allergy Severe RASH/HIVES Verified 11/07/18 06:33 sulfamethoxazole Allergy Severe Hives Verified 11/07/18 06:33 venom-honey bee Allergy Severe unknown Verified 11/07/18 06:33 Penicillins Allergy Intermediate Skin Rash Verified 11/07/18 06:33 chlorhexidine Allergy Unknown unknown Verified 11/07/18 06:33 Sulfa (Sulfonamide Allergy Verified 11/07/18 06:33 Antibiotics) mold AdvReac Severe Wheezing Verified 11/07/18 06:33 oxycodone [Oxycodone] AdvReac Severe vomits Verified 11/07/18 06:33 paroxetine AdvReac Severe Irritability Verified 11/07/18 06:33 and anger dicloxacillin [Dicloxacillin] AdvReac Mild Nausea Verified 11/07/18 06:33 gabapentin AdvReac Mild hives Verified 11/07/18 06:33 verapamil [Verapamil] AdvReac Worsening Verified 11/07/18 06:33 migraine nuts Allergy Severe Anaphylaxsi Uncoded 11/07/18 06:33 s General Stated Complaint: EyeProblem RYNE: 3 Review of Systems Review of Systems All systems reviewed & are unremarkable except as noted in HPI and below PFSH Social History Smoking/Tobacco Use Status: Never Alcohol Intake: current Alcohol Intake frequency: 0-2 drinks per day Drug use: Daily Substance use type: marijuana Do you feel safe at home: Yes Do you feel safe in your relationship?: Yes Exam Narrative Exam Narrative: 1.Const: Well-nourished, Well-developed, appearing stated age 2.Eyes: PERRL, no conjunctival injection, funduscopic exam demonstrates normal discs, no retinal hemorrhage. Left eye: No significant pain on palpation of the eyeball itself. Moderate swelling over the periorbital region. Particularly the superior orbit. Mild induration over this area. No erythema presenting past the brow. No fluctuance. Bedside ultrasound shows no evidence of significant fluid collection. Subjective pain when looking upwards, no pain with lateral, medial or inferior movement of the eye. No drainage from the eye. No significant conjunctival injection. 3.ENT: Atraumatic external nose and ears. Moist MM. Neck: Symmetric, trachea midline, No thyromegaly. No evidence of otitis media or externa. 4.CVS: +S1/S2, No murmurs or gallops. Peripheral pulses 2+ and equal in all extremities. Brisk capillary refill in all extremities. 5.RESP: Unlabored respiratory effort. Clear to auscultation bilaterally. No wheezes rales or rhonchi 6.GI: Soft, Nontender/Nondistended, No hepatosplenomegaly. No guarding or rebound. 7.MSK: Normocephalic/Atraumatic, Extremities w/o deformity or ttp No cyanosis or clubbing, Normal movement of all extremities 8.Skin: Warm, Dry. Please see my section for description of swollen area. 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 Sensation grossly intact, no focal neurologic deficits. 10.Psych: (AAO) x3. Appropriate mood and affect Course Vital Signs Temperature 36.6 C 11/07/18 06:29 Pulse 58 L 11/07/18 06:29 Respiratory Rate 16 11/07/18 06:29 Blood Pressure 166/85 H 11/07/18 06:29 Pulse Oximetry 99 11/07/18 06:29 Temperature 36.6 C 11/07/18 06:29 Temperature Source Skin 11/07/18 06:29 Pulse 58 L 11/07/18 06:29 Respiratory Rate 16 11/07/18 06:29 Respiratory Effort Non-Labored 11/07/18 06:32 Blood Pressure 166/85 H 11/07/18 06:29 Blood Pressure Position Sitting 11/07/18 06:29 Pulse Oximetry 99 11/07/18 06:29 Oxygen Delivery Method Room Air 11/07/18 06:29 Oxygen Flow Rate 0 11/07/18 06:29 Pain Level 9 11/07/18 06:29
[2018-11-07 06:56] LABS: Abs Immature Grans 0.04 k/cumm (0.0-0.09); Absolute Basophil Count 0.02 k/cumm (0.0-0.2); Absolute Lymphocyte Count 0.96 k/cumm (1.2-3.4); Absolute Monocyte Count 0.83 k/cumm (0.11-0.7); Absolute Neutrophil Count 14.75 k/cumm (1.2-6.7); Basophils % 0.1; HCT 37.7 % (36.0-46.0); HGB 12.6 g/dL (12.0-15.5); Immature Grans % 0.2; Lymphocytes % 5.8; Mean Corp. HGB Concentration 33.4 g/dL (32.0-36.0); Mean Corpuscular Hemoglobin 29.1 pg (27.0-33.0); Mean Corpuscular Volume 87.1 fL (80-95); Mean Platelet Volume 10.9 fL (8.0-11.0); Neutrophils % 88.9; Platelet Count 233 x1000/uL (130-400); RBC 4.33 m/cumm (4.00-5.20); RBC Distribution Width 14.5 % (11.7-14.6); White Blood Cell Count 16.59 k/cumm (4.4-10.8)
[2018-11-07 07:09] LABS: PTT Activated 34.8 sec (21.0-31.4); Prothrombin Time 53.4 sec (9.3-11.0)
[2018-11-07 07:10] LABS: ALT 25 U/L (12-78); AST 12 U/L (15-37); Albumin 3.6 g/dL (3.4-5.0); Alkaline Phosphatase 48 U/L (46-116); Anion Gap 9.9 mmol/L (3-11); BUN 15 mg/dL (7-18); Bilirubin, Total 0.3 mg/dL (0.2-1.0); CO2 27.1 mmol/L (21.0-32.0); Calcium 8.4 mg/dL (8.5-10.1); Chloride 106 mmol/L (98-107); Glucose 123 mg/dL (70-100); Potassium 3.9 mmol/L (3.5-5.1); Sodium 143 mmol/L (136-145); Total Protein 6.7 g/dL (6.4-8.2)
[2018-11-07] MEDS: Normal Saline Flush 10 ML SYR IVP (07:21)
[2018-11-07] MEDS: Omnipaque 350 MG/ML 100 ML BTL IJ (07:22)
--- NOTE | 2018-11-07 07:23 | DI.CT_ITS ---
SYMPTOM/DIAGNOSIS: LT ORBIT CELLULITIS, R/O SEPTAL CELLULITIS CT ORBITS: Multiple contiguous axial images of the orbits were obtained following the uneventful administration of intravenous contrast material. Comparison CT head and orbits from 11/10/16 and 11/17/16 were obtained. There is soft tissue swelling, fat stranding and soft tissue enhancement in the left periorbital soft tissues. The soft tissues are otherwise unremarkable. The orbits are intact and unremarkable. The retro-orbital soft tissues have a normal appearance including the optic nerves and extraocular muscles. No focal fluid collection is seen to suggest an abscess. There is mild mucosal thickening in the right maxillary sinus and a possible small right mucous retention cyst or polyp. No fluid levels are seen. The remaining visualized paranasal sinuses are clear. The mastoid air cells are well pneumatized. The bones are intact. IMPRESSION: Left preseptal cellulitis. No evidence of extension to involve the orbits or retro-orbital soft tissues. No abscess is identified.
[2018-11-07 07:43] LABS: INR 5.3 (0.9-1.1)
--- NOTE | 2018-11-07 07:43 | DI.VRAD_ITS ---
EXAM: CT Orbits With Contrast EXAM DATE/TIME: 11/07/2018 6:41 AM CLINICAL HISTORY: 38 years old, female; Eye pain; Left; Patient HX: L orbit, cellulitis, R/O septal cellulitus TECHNIQUE: Imaging protocol: Computed tomography images of the orbits with intravenous contrast. Coronal and sagittal reformatted images were created and reviewed. Radiation optimization: All CT scans at this facility use at least one of these dose optimization techniques: automated exposure control; mA and/or kV adjustment per patient size (includes targeted exams where dose is matched to clinical indication); or iterative reconstruction. Contrast material: OMNI 350; Contrast volume: 100 ml; Contrast route: IV; COMPARISON: CT ORBITS WITH CONTRAST 11/10/2016 9:12 AM FINDINGS: Orbits: Globes are intact. Lens are located bilaterally. No retrobulbar fat stranding or hematoma. Optic nerves are symmetric and appear unremarkable. Unremarkable appearance of the extraocular muscles and lacrimal glands bilaterally. Sinuses: Polyp versus retention cyst within the right maxillary sinus. Bones/joints: No acute fracture. Soft tissues: Left periorbital preseptal soft tissue swelling, subcutaneous fat stranding, and soft tissue enhancement compatible with preseptal cellulitis. No postseptal extension. No radiopaque foreign body. No abscess. IMPRESSION: Left periorbital preseptal soft tissue swelling, subcutaneous fat stranding, and soft tissue enhancement compatible with preseptal cellulitis. No postseptal extension. No radiopaque foreign body. No abscess. Dictated and Authenticated by: Jaziel Hassan MD. Ordering:GA Peace MD
--- NOTE | 2018-11-07 07:56 | NUR.NOTE ---
Nursing Note: call out to pharmacy for antibiotic
[2018-11-07] MEDS: CLINDAMYCIN 600 MG/50 ML BAG 100 MG IVPB ×3 (08:16→23:08)
[2018-11-07] MEDS: clonazePAM 1 MG TAB PO ×3 (09:18→23:00)
[2018-11-07] MEDS: Normal Saline 1,000 ML 100 ML IV ×2 (09:19→20:05)
[2018-11-07] MEDS: cefTRIAXone 1 GM/50 ML BAG IVPB (09:30)
[2018-11-07] MEDS: Lactobacillus Acidophilus CAP 1 CAP PO ×3 (09:31→20:05)
[2018-11-07 09:35] VITALS: BP 173/82; PULSE 57; RESP 16; TEMP 36.6; O2SAT 98
[2018-11-07] MEDS: Fexofenadine 180 MG TAB PO (11:09)
[2018-11-07] MEDS: Acetaminophen 325 MG TAB PO (11:33)
[2018-11-07] MEDS: Methylphenidate 10 MG TAB 20 MG PO ×2 (13:24→19:09)
[2018-11-07] MEDS: Ondansetron 4 MG/2 ML VIAL IVP (13:24)
[2018-11-07 15:43] VITALS: BP 147/93; PULSE 78; RESP 18; TEMP 37; O2SAT 95
[2018-11-07] MEDS: MORPHine 2 MG/ML SYR IVP ×2 (15:48→21:19)
--- NOTE | 2018-11-07 18:33 | HPE_ITS ---
Date of service: 11/07/18 Time of Service: 18:33 Assessment and Plan (1) Preseptal cellulitis: Current visit: Yes Status: Acute No evidence of Orbital Cellulitis by CT, and despite area of induration no area of abscess by CT or ultrasound. Given multiple allergies and intolerance to antibiotics, regimen of IV Clindamycin and Ceftriaxone was chosen. Plan for IV administration, followed by continuation of IV antibiotics at the infusion center until completion. Monitor WBC, vitals, and cellulitic area, with low threshold for broadening coverage further if needed. Pain control. (2) ADHD (attention deficit hyperactivity disorder), inattentive type: Current visit: No Status: Chronic Continue Home Methylphenidate. (3) Factor V Leiden mutation: Current visit: No Status: Chronic Continue to monitor daily INR - hold coumadin as currently supratherapeut ic and initiating on antibiotic therapy. (4) Hypothyroidism: Current visit: No Status: Chronic On replacement therapy. (5) DVT prophylaxis: Current visit: Yes Status: Acute On chronic anticoagulation as above. History of Present Illness Chief Complaint: Facial Swelling and Pain Narrative: 38-year-old woman with a past medical history significant for factor V Leiden with recurrent DVTs on chronic anticoagulation, being admitted from [facility] Emergency Department on 11/07 with a diagnosis of Periorbital Cellulitis. Mrs. Rodriguez has a prior history significant for Factor V Leiden with prior DVTs, on chronic anticoagulation with Warfarin, as well as previously noted Intractable vomiting, Mirgraines, ADHD, Asthma, GERD, and Hypothyroidism. She w as recently admitted in August for a a left buttock abscess, and given her multiple antibiotic allergies and intolerance of oral formulations, required completion of antibiotic course in the infusion center following discharge. The patient presented to the ED with a reported 4 day history of left eye swelling. The patient developed what is described as a 'bump' on her left brow at that time, and presumed an insect bite. She was prescribed steroids by her on-call physician, with symptoms worsening culminating in her ED visit. Evaluation revealed evidence of a leukocytosis, and exam with evidence of erythema and swelling of the periorbital region on the left. CT ruled out Orbital Cellulitis, and ultrasound reportedly showed no evidence of drainable fluid collection. There is reported pain with palpation of the area, as well as reported pain with movement of the eye but no vision changes. She was referred for admission for further evaluation and treatment. Review of Systems 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) Asthma (Chronic 11/08/12) B12 deficiency (Chronic) Cannabis abuse with cannabis-induced disorder (Chronic) Chronic anticoagulation (Chronic) Chronic back pain greater than 3 months duration (Chronic 12/29/14) Cyst of fallopian tube (Resolved) Depression (Chronic) Factor V Leiden mutation (Chronic) GERD (gastroesophageal reflux disease) (Chronic) History of DVT (deep vein thrombosis) (Chronic) Hypothyroidism (Chronic) Intractable vomiting with nausea (Acute) Migraine headache (Chronic) Nephrolithiasis (Chronic) Panic disorder (Chronic 03/21/16) Recurrent deep vein thrombosis (DVT) (Chronic) Surgical History Abdominal hysterectomy (~2009) 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) Arthroplasty of knee (~1999) Bilateral salpingectomy with oophorectomy (~2008) Cervical Conization/LEEP Cholecystectomy S/P appendectomy (Acute 12/24/17) THUMB RECONSTRUCTION Social History (Updated 11/07/18 @ 18:45 by Jaya Clarke MD) Smoking/Tobacco Use Status: Never Alcohol Intake: current Alcohol Intake frequency: 0-2 drinks per day Drug use: Daily Substance use type: marijuana Do you feel safe at home: Yes Do you feel safe in your relationship?: Yes Additional Social history: Patient is and with one child. She denies any smoking or significant alcohol use, but admits to regular marijuana use. Meds Home Medications Medication Instructions Recorded Confirmed Type Citracal + Bone Density 1 ea PO BID tab-cap 11/09/12 11/07/18 History Space Chamber Plus #1 spacer 05/01/14 09/11/18 Rx cyproheptadine 4 mg PO HS #90 tab-cap 06/04/16 11/07/18 History Narcan 4 mg NS DAILY PRN PRN #2 spray 12/08/16 11/07/18 Rx ipratropium-albuterol 3 ml INHALATION Q4H PRN PRN #1 box 01/23/17 11/07/18 History MDD 6 times epinephrine [EpiPen 2-Nino] 0.3 mg IM ONCE #1 ea 09/17/17 11/07/18 Rx warfarin [Coumadin] 0 - 10 mg PO HS PRN 90 Days #100 10/06/17 11/07/18 Rx tab-cap triamcinolone acetonide 0 gm TOPICAL BID PRN #60 g 10/16/17 11/07/18 History levothyroxine 100 mcg tablet 100 mcg PO QPM #90 tab 02/15/18 11/07/18 Rx sumatriptan succinate 6 mg/0.5 mL 6 mg SUBCUT As directed #8 pen MDD 04/27/18 11/07/18 Rx subcutaneous pen injector 12 mg albuterol sulfate 90 mcg/actuation 2 puff INHALATION Q6H PRN #3 04/29/18 0 11/07/18 Rx aerosol inhaler inhaler MDD 6 puffs fluticasone propionate 220 2 inh INHALATION BID #3 inhaler 04/29/18 11/07/18 Rx mcg/actuation HFA aerosol inhaler albuterol sulfate 1.25 mg/3 mL 1.25 mg INHALATION Q6H PRN #75 ml 05/20/18 11/07/18 Rx solution for nebulization Topamax 200 mg tablet 400 mg PO HS #180 tab NS 06/08/18 11/07/18 Rx sumatriptan succinate 4 mg/0.5 mL 4 mg SC Q1-4H PRN #1 ml 07/23/18 11/07/18 Rx subcutaneous pen injector clonazepam 1 mg tablet 1 mg PO TID PRN #90 tab 08/31/18 11/07/18 Rx hydrocodone 7.5 mg-acetaminophen 1 tab PO TID PRN PRN #66 tab MDD 3 08/31/18 11/07/18 Rx 325 mg tablet tabs methylphenidate HCl 20 mg tablet 20 mg PO TID #84 tab-cap MDD 60 mg 08/31/18 11/07/18 Rx fexofenadine 180 mg tablet 180 mg PO DAILY #90 tab-cap 09/23/18 11/07/18 Rx clotrimazole-betamethasone 1 1 applic TOPICAL BID #45 gm 10/11/18 11/07/18 Rx %-0.05 % topical cream omeprazole 40 mg capsule,delayed 40 mg PO DAILY PRN #90 cap 10/15/18 11/07/18 Rx release Allergies Allergy/AdvReac Type Severity Reaction Status Date / Time aripiprazole [From Abilify] Allergy Severe Rash, hives Verified 11/07/18 06:33 doxycycline Allergy Severe Anaphylaxsi Verified 11/07/18 06:33 s levetiracetam [From Keppra] Allergy Severe RASH/HIVES Verified 11/07/18 06:33 sulfamethoxazole Allergy Severe Hives Verified 11/07/18 06:33 venom-honey bee Allergy Severe unknown Verified 11/07/18 06:33 Penicillins Allergy Intermediate Skin Rash Verified 11/07/18 06:33 chlorhexidine Allergy Unknown unknown Verified 11/07/18 06:33 Sulfa (Sulfonamide Allergy Verified 11/07/18 06:33 Antibiotics) mold AdvReac Severe Wheezing Verified 11/07/18 06:33 oxycodone [Oxycodone] AdvReac Severe vomits Verified 11/07/18 06:33 paroxetine AdvReac Severe Irritability Verified 11/07/18 06:33 and anger dicloxacillin [Dicloxacillin] AdvReac Mild Nausea Verified 11/07/18 06:33 gabapentin AdvReac Mild hives Verified 11/07/18 06:33 verapamil [Verapamil] AdvReac Worsening Verified 11/07/18 06:33 migraine nuts Allergy Severe Anaphylaxsi Uncoded 11/07/18 06:33 s Exam Narrative Exam Narrative: General: Patient appears comfortable, AAOX3, NAD HEENT: Left orbital region with surrounding cellulitic changes, warm to touch, with swelling. Area on left brow with induration, but no fluctuance. Eye is not injected. Neck: Supple CV: Regular, nontachycardic, S1S2, No rubs, murmurs, or gallops. Pulmonary: Clear to auscultation bilaterally, no crackles, wheezing, or rhonchi Abdomen: + Bowel Sounds, soft, nontender, nondistended Vascular: No lower extremity edema Psych: Normal mood and affect. Results Imaging Additional studies: EXAM: CT Orbits With Contrast EXAM DATE/TIME: 11/07/2018 6:41 AM CLINICAL HISTORY: 38 years old, female; Eye pain; Left; Patient HX: L orbit, cellulitis, R/O septal cellulitus TECHNIQUE: Imaging protocol: Computed tomography images of the orbits with intravenous contrast. Coronal and sagittal reformatted images were created and reviewed. Radiation optimization: All CT scans at this facility use at least one of these dose optimization techniques: automated exposure control; mA and/or kV adjustment per patient size (includes targeted exams where dose is matched to clinical indication); or iterative reconstruction. Contrast material: OMNI 350; Contrast volume: 100 ml; Contrast route: IV; COMPARISON: CT ORBITS WITH CONTRAST 11/10/2016 9:12 AM FINDINGS: Orbits: Globes are intact. Lens are located bilaterally. No retrobulbar fat stranding or hematoma. Optic nerves are symmetric and appear unremarkable. Unremarkable appearance of the extraocular muscles and lacrimal glands bilaterally. Sinuses: Polyp versus retention cyst within the right maxillary sinus. Bones/joints: No acute fracture. Soft tissues: Left periorbital preseptal soft tissue swelling, subcutaneous fat stranding, and soft tissue enhancement compatible with preseptal cellulitis. No postseptal extension. No radiopaque foreign body. No abscess. IMPRESSION: Left periorbital preseptal soft tissue swelling, subcutaneous fat stranding, and soft tissue enhancement compatible with preseptal cellulitis. No postseptal extension. No radiopaque foreign body. No abscess. Labs : 11/07/18 06:47 11/07/18 06:47 Laboratory Results - last 24 hr 11/07/18 11/07/18 11/07/18 06:47 06:47 06:47 WBC 16.59 H RBC 4.33 Hgb 12.6 Hct 37.7 MCV 87.1 MCH 29.1 MCHC 33.4 RDW 14.5 Plt Count 233 MPV 10.9 Immature Gran % 0.2 Neutrophils % 88.9 Lymphocytes % 5.8 Monocytes % 5.0 Eosinophils % 0.0 Basophils % 0.1 Absolute Neutrophils 14.75 H Absolute Lymphocytes 0.96 L Absolute Monocytes 0.83 H Absolute Eosinophils 0.00 Absolute Basophils 0.02 PT 53.4 H INR 5.3 H* APTT 34.8 H Sodium 143 Potassium 3.9 Chloride 106 Carbon Dioxide 27.1 Anion Gap 9.9 BUN 15 Creatinine 0.80 Estimated GFR/1.73 m2 >= 60.00 Glucose 123 H Calcium 8.4 L Total Bilirubin 0.3 AST 12 L ALT 25 Alkaline Phosphatase 48 Total Protein 6.7 Albumin 3.6 Last Vital Signs Temp 37 C 11/07/18 15:43 Pulse 78 11/07/18 15:43 Resp 18 11/07/18 15:43 BP 147/93 H 11/07/18 15:43 Pulse Ox 95 11/07/18 15:43
[2018-11-07] MEDS: Levothyroxine 100 MCG TAB PO (20:05)
[2018-11-07] MEDS: Mometasone 220 MCG 14 DOSE INHALER 2 PUFF IH (20:05)
[2018-11-07] MEDS: Triamcinolone 0.1% CR 15 GM TUBE TP (20:06)
[2018-11-07] MEDS: Clotrimazole/Betamet Diprop Cream 15 GM TUBE TP (20:06)
[2018-11-07] MEDS: Cyproheptadine 4 MG TAB PO ×2 (21:14→21:57)
[2018-11-07] MEDS: Topiramate 100 MG TAB 400 MG PO (21:14)
[2018-11-08 00:43] VITALS: BP 158/90; PULSE 60; RESP 16; TEMP 36.8; O2SAT 100
[2018-11-08] MEDS: MORPHine 2 MG/ML SYR IVP ×5 (01:13→17:36)
[2018-11-08] MEDS: Ondansetron 4 MG/2 ML VIAL IVP ×2 (01:55→16:23)
[2018-11-08] MEDS: Normal Saline Flush 10 ML SYR IVP ×4 (05:52→20:00)
[2018-11-08 07:45] VITALS: BP 112/71; PULSE 64; RESP 16; TEMP 36.7; O2SAT 97
[2018-11-08 07:51] LABS: Abs Immature Grans 0.01 k/cumm (0.0-0.09); Absolute Basophil Count 0.01 k/cumm (0.0-0.2); Absolute Eosinophil Count 0.06 k/cumm (0.0-0.7); Absolute Lymphocyte Count 1.39 k/cumm (1.2-3.4); Absolute Monocyte Count 0.56 k/cumm (0.11-0.7); Basophils % 0.1; Eosinophils % 0.8; Immature Grans % 0.1; Lymphocytes % 19.3; Mean Corp. HGB Concentration 32.4 g/dL (32.0-36.0); Mean Corpuscular Hemoglobin 28.6 pg (27.0-33.0); Mean Corpuscular Volume 88.3 fL (80-95); Mean Platelet Volume 11.4 fL (8.0-11.0); Monocytes % 7.8; Neutrophils % 71.9; Platelet Count 179 x1000/uL (130-400); RBC 3.85 m/cumm (4.00-5.20); RBC Distribution Width 14.7 % (11.7-14.6)
[2018-11-08] MEDS: CLINDAMYCIN 600 MG/50 ML BAG 100 MG IVPB ×2 (08:05→16:20)
[2018-11-08] MEDS: Methylphenidate 10 MG TAB 20 MG PO ×3 (08:05→15:28)
[2018-11-08] MEDS: Normal Saline 1,000 ML 100 ML IV ×2 (08:06→18:27)
[2018-11-08] MEDS: Lactobacillus Acidophilus CAP 1 CAP PO ×3 (08:06→20:39)
[2018-11-08] MEDS: Fexofenadine 180 MG TAB PO (08:06)
[2018-11-08] MEDS: Clotrimazole/Betamet Diprop Cream 15 GM TUBE TP ×2 (08:11→20:38)
[2018-11-08 08:13] LABS: Anion Gap 7.6 mmol/L (3-11); BUN 12 mg/dL (7-18); CO2 25.4 mmol/L (21.0-32.0); CREATININE 0.81 mg/dL (0.55-1.02); Calcium 8.4 mg/dL (8.5-10.1); Chloride 109 mmol/L (98-107); Glucose 107 mg/dL (70-100); Magnesium 1.8 mg/dL (1.8-2.4); Potassium 3.5 mmol/L (3.5-5.1); Sodium 142 mmol/L (136-145)
[2018-11-08 08:20] LABS: Absolute Neutrophil Count 5.18 k/cumm (1.2-6.7)
[2018-11-08 08:22] LABS: Prothrombin Time 62.6 sec (9.3-11.0)
[2018-11-08 08:29] LABS: INR 6.1 (0.9-1.1)
[2018-11-08] MEDS: Mometasone 220 MCG 14 DOSE INHALER 2 PUFF IH ×2 (09:53→20:39)
[2018-11-08] MEDS: cefTRIAXone 1 GM/50 ML BAG IVPB (10:04)
--- NOTE | 2018-11-08 12:12 | INITIAL_ITS ---
- If Service Date Differs Date of service: 11/08/18 Time of Service: 12:12 Care Management Initial Assess REASON FOR HOSPITALIZATION:: Miley-orbital cellulitis PAST MEDICAL HISTORY/PAST SURGICAL HISTORY:: Hx of migraine headaches, Hx of DVT associated with , chronic anticoagulation, nephrolithiasis, recurrent DVT, asthma, GERD, Hypothyroidism, chronic back pain, chonic pelvic pain, panic disorder, anxiety disorder, ADHD, depression. Surgical: CARLO, BSO, cholecystectomy, knee arthroplasty, abdominal hysterectomy, bilateral sapingectomy with oophorectomy, cervical conization/LEEP, left thumb surgery PREVIOUS FUNCTIONAL STATUS/SOCIAL/FAMILY SUPPORTS:: Suzie resides in [facility] with her son Braulio. She is disabled and identifies her support system as her son and sometimes her Mom.Suzie is independent with self care and activities of daily living. Suzie deals with chronic pain though is independent in the community at baseline. CURRENT FUNCTIONAL STATUS:: Suzie is sitting up in bed her left eye is swollen shut she is having pain. Suzie is engaged during assessment and appropiate during interactions with CM. She is concerned that it has become ore swollen since her admission. Vanocomycin is being added today. She reports she has been on Vanco in the past which she feels led to a severe yeast infection this was communicated to provider. She is requesting diflucan for treatment. Suzie is requesting her SO be able to stay with her overnight CM did review this with RNCC. ADVANCE DIRECTIVES:: On file at [facility] agent is Braulio Rodriguez Has patient been provided with information about the portal?: Yes Did the patient sign up for the portal?: No INSURANCE COVERAGE / FINANCIAL ISSUES:: Medicare and Medicaid CURRENT HOME/COMMUNITY SERVICES/EQUIPMENT:: No current services at this time. PRIMARY CARE PHYSICIAN:: POTENTIAL DISCHARGE NEEDS:: Follow up with surgical provider and ongoing follow up with primary care. PATIENT/FAMILY EDUCATION NEEDS:: Discharge education, limitations and follow up plan of care including ask me three. ANTICIPATED BARRIERS TO DISCHARGE:: Tolerence of antibiotics anticipate she will have IV antibiotics through the infusion room. TRANSPORTATION:: Via private car with son at time of discharge. PLAN:: Suzie is currently receiving IV antibioitcs, provider to contact Infectious disease for recomendations. Suzie will remain inpatient at this time. She may be able to transition to outpatient antibioitcs pending treatment recomendations. CM to continue to follow and provide support discharge planning and disposition.
[2018-11-08] MEDS: clonazePAM 1 MG TAB PO ×3 (13:22→23:29)
[2018-11-08] MEDS: Magnesium Oxide 400 MG TAB PO (13:50)
[2018-11-08] MEDS: Potassium Chloride 20 MEQ TABCR 40 MEQ PO (13:51)
[2018-11-08 16:29] VITALS: BP 139/86; PULSE 79; RESP 17; TEMP 36.7; O2SAT 98
[2018-11-08] MEDS: Acetaminophen 325 MG TAB PO (17:36)
--- NOTE | 2018-11-08 17:55 | W.PM.PROGNOT ---
Date of Service Date of service: 11/08/18 Time of Service: 17:55 Assessment and Plan (1) Preseptal cellulitis: Current visit: Yes Status: Acute No evidence of Orbital Cellulitis by CT, and despite area of induration no area of abscess by CT or ultrasound. Given multiple allergies and intolerance to antibiotics, regimen of IV Clindamycin and Ceftriaxone was chosen. However, as patient's symptoms are worsening, Clindamycin was discontinued in favor of IV Vancomycin - she has a history of MRSA infection in August, and the MRSA sensititivities did not include testing against Clinda. Continue Ceftriaxone. This plan was discussed with ID at [facility] and agreed upon as best course of action. Consider reimaging if symptoms worsen. Continue pain control. (2) ADHD (attention deficit hyperactivity disorder), inattentive type: Current visit: No Status: Chronic Continue Home Methylphenidate. (3) Factor V Leiden mutation: Current visit: No Status: Chronic Continue to monitor daily INR - hold coumadin as currently supratherapeutic and initiating on antibiotic therapy. INR currently worsening - monitor closely. (4) Hypothyroidism: Current visit: No Status: Chronic On replacement therapy. (5) DVT prophylaxis: Current visit: Yes Status: Acute On chronic anticoagulation as above. Subjective Interval history since last seen: 38-year-old woman with a past medical history significant for factor V Leiden with recurrent DVTs on chronic anticoagulation, admitted from [facility] Emergency Department on 11/07 with a diagnosis of Periorbital Cellulitis. Mrs. Rodriguez has a prior history significant for Factor V Leiden with prior DVTs, on chronic anticoagulation with Warfarin, as well as previously noted Intractable vomiting, Mirgraines, ADHD, Asthma, GERD, and Hypothyroidism. She was recently admitted to this facility in August for a a left buttock abscess, and given her multiple antibiotic allergies and intolerance of oral formulations, required completion of antibiotic course in the infusion center following discharge. Her culture results were positive for MRSA, and she was treated with IV Vancomycin. The patient presented to the ED with a reported 4 day history of left eye swelling. She developed what was described as a 'bump' on her left brow at that time, and presumed an insect bite. She was prescribed steroids by her on-call physician, with symptoms worsening culminating in her ED visit. Evaluation revealed evidence of a leukocytosis, and exam with evidence of erythema and swelling of the periorbital region on the left. CT ruled out Orbital Cellulitis, and ultrasound reportedly showed no evidence of drainable fluid collection. There is reported pain with palpation of the area, as well as reported pain with movement of the eye but no vision changes. She was referred for admission for further evaluation and treatment. This morning Ms. Rodriguez's WBC has normalized - however, while the erythema surrounding her orbit looks slightly improved, the swelling and pain is significantly worse. She does remain afebrile. Exam Narrative Exam Narrative: General: Patient appears comfortable, AAOX3, NAD HEENT: Left orbital region with surrounding cellulitic changes, warm to touch, with swelling. Area on left brow with induration, but no fluctuance. Erythema appears slightly improved, but edema has become significantly worse especially overlying the eyelid and brow. Neck: Supple CV: Regular, nontachycardic, S1S2, No rubs, murmurs, or gallops. Pulmonary: Clear to auscultation bilaterally, no crackles, wheezing, or rhonchi Abdomen: + Bowel Sounds, soft, nontender, nondistended Vascular: No lower extremity edema Psych: Normal mood and affect. Objective Objective Clinical Data: Abnormal lab results 11/08/18 11/08/18 11/08/18 Range/Units 06:40 06:40 06:40 RBC 3.85 L (4.00-5.20) m/cumm Hgb 11.0 L (12.0-15.5) g/dL Hct 34.0 L (36.0-46.0) % RDW 14.7 H (11.7-14.6) % MPV 11.4 H (8.0-11.0) fL PT 62.6 H (9.3-11.0) sec INR 6.1 H* D (0.9-1.1) Chloride 109 H (98-107) mmol/L Glucose 107 H (70-100) mg/dL Calcium 8.4 L (8.5-10.1) mg/dL Vital Signs Temperature 36.7 C 11/08/18 16:29 Temperature Source Tympanic 11/08/18 16:29 Pulse 79 11/08/18 16:29 Pulse Rhythm Regular 11/08/18 08:45 Respiratory Rate 17 11/08/18 16:29 Respiratory Effort Non-Labored 11/08/18 08:45 Respiratory Depth Normal 11/08/18 08:45 Respiratory Pattern Normal 11/08/18 08:45 Blood Pressure 139/86 11/08/18 16:29 Blood Pressure Position Sitting 11/07/18 06:29 Pulse Oximetry 98 11/08/18 16:29 Oxygen Delivery Method Room Air 11/08/18 16:29 Oxygen Flow Rate 0 11/08/18 16:29 Pain Level 8 11/08/18 16:29 Comment 11/08/18 16:29 Intake & Output 11/07/18 11/08/18 11/08/18 23:59 11:59 23:59 Intake Total 2086.667 / 2303.334 1598.333 / 1838.333 240 / 1838.333 Balance 2086.667 / 2303.334 1598.333 / 1838.333 240 / 1838.333 Intake: IV 1126.667 / 1343.334 918.333 / 918.333 Oral 960 / 960 680 / 920 240 / 920 Other: Comment patient uses toilet independently. pt gets up AD MARCI to void. Stool Size Small Stool Characteristics Soft Formed Voiding Methods Toilet Toilet Toilet Laboratory Results WBC 7.20 k/cumm (4.4-10.8) D 11/08/18 06:40 RBC 3.85 m/cumm (4.00-5.20) L 11/08/18 06:40 Hgb 11.0 g/dL (12.0-15.5) L 11/08/18 06:40 Hct 34.0 % (36.0-46.0) L 11/08/18 06:40 MCV 88.3 fL (80-95) 11/08/18 06:40 MCH 28.6 pg (27.0-33.0) 11/08/18 06:40 MCHC 32.4 g/dL (32.0-36.0) 11/08/18 06:40 RDW 14.7 % (11.7-14.6) H 11/08/18 06:40 Plt Count 179 x1000/uL (130-400) 11/08/18 06:40 MPV 11.4 fL (8.0-11.0) H 11/08/18 06:40 Immature Gran % 0.1 11/08/18 06:40 71.9 11/08/18 06:40 19.3 11/08/18 06:40 7.8 11/08/18 06:40 0.8 11/08/18 06:40 0.1 11/08/18 06:40 Absolute Neutrophils 5.18 k/cumm (1.2-6.7) 11/08/18 06:40 Absolute Lymphocytes 1.39 k/cumm (1.2-3.4) 11/08/18 06:40 Absolute Monocytes 0.56 k/cumm (0.11-0.7) 11/08/18 06:40 Absolute Eosinophils 0.06 k/cumm (0.0-0.7) 11/08/18 06:40 Absolute Basophils 0.01 k/cumm (0.0-0.2) 11/08/18 06:40 PT 62.6 sec (9.3-11.0) H 11/08/18 06:40 INR 6.1 (0.9-1.1) H* D 11/08/18 06:40 APTT 34.8 sec (21.0-31.4) H 11/07/18 06:47 Sodium 142 mmol/L (136-145) 11/08/18 06:40 Potassium 3.5 mmol/L (3.5-5.1) 11/08/18 06:40 Chloride 109 mmol/L (98-107) H 11/08/18 06:40 Carbon Dioxide 25.4 mmol/L (21.0-32.0) 11/08/18 06:40 7.6 mmol/L (3-11) 11/08/18 06:40 BUN 12 mg/dL (7-18) 11/08/18 06:40 0.81 mg/dL (0.55-1.02) 11/08/18 06:40 >= 60.00 (mL/min/1.73m2) 11/08/18 06:40 Glucose 107 mg/dL (70-100) H 11/08/18 06:40 Calcium 8.4 mg/dL (8.5-10.1) L 11/08/18 06:40 Magnesium 1.8 mg/dL (1.8-2.4) 11/08/18 06:40 0.3 mg/dL (0.2-1.0) 11/07/18 06:47 AST 12 U/L (15-37) L 11/07/18 06:47 ALT 25 U/L (12-78) 11/07/18 06:47 48 U/L (46-116) 11/07/18 06:47 6.7 g/dL (6.4-8.2) 11/07/18 06:47 3.6 g/dL (3.4-5.0) 11/07/18 06:47
[2018-11-08] MEDS: Levothyroxine 100 MCG TAB PO (20:31)
[2018-11-08] MEDS: Metoclopramide 10 MG/2 ML VIAL IVP (20:35)
[2018-11-08] MEDS: Triamcinolone 0.1% CR 15 GM TUBE TP (20:39)
[2018-11-08] MEDS: Cyproheptadine 4 MG TAB PO (21:58)
[2018-11-08] MEDS: Topiramate 100 MG TAB 400 MG PO (21:58)
[2018-11-09] VITALS: BP 125/73; PULSE 71; RESP 17; TEMP 36.7; O2SAT 100
[2018-11-09] MEDS: Normal Saline 1,000 ML 100 ML IV (04:44)
[2018-11-09 07:37] VITALS: BP 105/65; PULSE 66; RESP 14; TEMP 37.3; O2SAT 96
[2018-11-09 07:40] LABS: Abs Immature Grans 0.02 k/cumm (0.0-0.09); Absolute Basophil Count 0.02 k/cumm (0.0-0.2); Absolute Eosinophil Count 0.17 k/cumm (0.0-0.7); Absolute Lymphocyte Count 1.44 k/cumm (1.2-3.4); Absolute Monocyte Count 0.86 k/cumm (0.11-0.7); Absolute Neutrophil Count 5.62 k/cumm (1.2-6.7); Basophils % 0.2; Eosinophils % 2.1; HCT 34.5 % (36.0-46.0); HGB 11.3 g/dL (12.0-15.5); Immature Grans % 0.2; Lymphocytes % 17.7; Mean Corp. HGB Concentration 32.8 g/dL (32.0-36.0); Mean Corpuscular Volume 88.5 fL (80-95); Mean Platelet Volume 10.9 fL (8.0-11.0); Monocytes % 10.6; Neutrophils % 69.2; Platelet Count 190 x1000/uL (130-400); RBC Distribution Width 14.8 % (11.7-14.6); White Blood Cell Count 8.13 k/cumm (4.4-10.8)
[2018-11-09 07:47] LABS: INR 2.2 (0.9-1.1); Prothrombin Time 21.8 sec (9.3-11.0)
[2018-11-09 07:52] LABS: Anion Gap 10.9 mmol/L (3-11); BUN 8 mg/dL (7-18); CO2 23.1 mmol/L (21.0-32.0); CREATININE 0.84 mg/dL (0.55-1.02); Chloride 108 mmol/L (98-107); Glucose 90 mg/dL (70-100); Magnesium 1.8 mg/dL (1.8-2.4); Potassium 3.8 mmol/L (3.5-5.1); Sodium 142 mmol/L (136-145)
[2018-11-09 08:12] LABS: Calcium 7.9 mg/dL (8.5-10.1)
[2018-11-09] MEDS: Lactobacillus Acidophilus CAP 1 CAP PO ×3 (08:45→19:34)
[2018-11-09] MEDS: Methylphenidate 10 MG TAB 20 MG PO ×3 (08:45→15:24)
[2018-11-09] MEDS: Fexofenadine 180 MG TAB PO (08:45)
[2018-11-09] MEDS: Clotrimazole/Betamet Diprop Cream 15 GM TUBE TP ×2 (08:46→19:34)
[2018-11-09] MEDS: Mometasone 220 MCG 14 DOSE INHALER 2 PUFF IH ×2 (09:01→19:34)
[2018-11-09] MEDS: cefTRIAXone 1 GM/50 ML BAG IVPB ×2 (09:54→13:37)
[2018-11-09] MEDS: Magnesium Oxide 400 MG TAB PO (10:37)
[2018-11-09] MEDS: Potassium Chloride 20 MEQ TABCR PO (10:37)
[2018-11-09] MEDS: clonazePAM 1 MG TAB PO ×2 (12:58→20:57)
[2018-11-09] MEDS: Acetaminophen 325 MG TAB PO (14:00)
--- NOTE | 2018-11-09 14:39 | PGE_ITS ---
Date of Service Date of service: 11/09/18 Time of Service: 14:39 Assessment and Plan (1) Preseptal cellulitis: Current visit: Yes Status: Acute No evidence of Orbital Cellulitis by CT, and despite area of induration no area of abscess by CT or ultrasound. Given multiple allergies and intolerance to antibiotics, regimen of IV Clindamycin and Ceftriaxone was chosen. However, as the patient's symptoms were worsening yesterday, Clindamycin was discontinued in favor of IV Vancomycin - history of MRSA infection in August with sensititivities not including testing against Clinda. High dose Ceftriaxone was continued. This plan was discussed with ID at [facility] and agreed upon as best course of action. Although still afebrile, no leukocytosis, and without signs of systemic toxicity, exam today with both edema and pain worsened, and erythema remaining unchanged to slightly worse. Area is still warm to the touch. Discussed case in detail with ID and Optho at [facility]. IV Vancomycin and Ceftriaxone are continued, and Metronidazole was added. Patient will be reimaged currently, with transfer to tertiary center scheduled on an urgent basis in case of continued progression of infection and need for opthalmologist acutely. Patient is accepted at [facility] by the hospitalist service. (2) ADHD (attention deficit hyperactivity disorder), inattentive type: Current visit: No Status: Chronic Continue Home Methylphenidate. (3) Factor V Leiden mutation: Current visit: No Status: Chronic With history of recurrent DVTs. Continue to monitor daily INR - restart coumadin as INR has decreased and is now low therapeutic. Monitor daily on IV antibiotics. (4) Hypothyroidism: Current visit: No Status: Chronic On replacement therapy. (5) DVT prophylaxis: Current visit: Yes Status: Acute On chronic anticoagulation as above. Subjective Interval history since last seen: 38-year-old woman with a prior history significant for MRSA infection with abscess requiring hospitalization and drainage last August, admitted from [facility] Emergency Department on 11/07 with a diagnosis of Periorbital Cellulitis. Ms. Rodriguez has a prior history significant for Factor V Leiden with prior DVTs, on chronic anticoagulation with Warfarin, as well as previously noted Intractable vomiting, Mirgraines, ADHD, Asthma, GERD, and Hypothyroidism. She was recently admitted to this facility in August for a a left buttock abscess, and given her multiple antibiotic allergies and intolerance of oral formulations, required completion of antibiotic course in the infusion center following discharge. Her culture results were positive for MRSA, and she was treated with IV Vancomycin. The patient presented to the ED with a reported 4 day history of left eye swelling. She developed what was described as a 'bump' on her left brow at that time, and presumed an insect bite. She was prescribed steroids by her on-call physician, with symptoms worsening culminating in her ED visit. Evaluation revealed evidence of a leukocytosis, and exam with evidence of erythema and swelling of the periorbital region on the left. CT ruled out Orbital Cellulitis, and ultrasound reportedly showed no evidence of drainable fluid collection. There is reported pain with palpation of the area, as well as reported pain with movement of the eye but no vision changes. She was referred for admission for further evaluation and treatment. By the morning following admission Ms. Lozanos WBC has normalized - however, while the erythema surrounding her orbit looked unchange, the swelling and pain was significantly worse. Vancomycin was initiated in place of Clindamycin, and she was maintained on high dose Ceftriaxone. By this morning she appears worse again, with worsening swelling and pain. She does remain afebrile, nontachycardic, and without a leukocytosis. Exam Narrative Exam Narrative: General: Patient appears uncomfortable and in pain, AAOX3, NAD HEENT: Left orbital region with surrounding cellulitic changes, warm to touch, with swelling - all worse. Erythema now extending over the entire brow and eye lid, with worsening edema causing full closure of the left eye. Erythema involving the bridge of the nose and down to left cheeck, Edema now extending down to the lower jaw and laterally on the left side. Neck: Supple CV: Regular, nontachycardic, S1S2, No rubs, murmurs, or gallops. Pulmonary: Clear to auscultation bilaterally, no crackles, wheezing, or rhonchi Abdomen: + Bowel Sounds, soft, nontender, nondistended Vascular: No lower extremity edema Psych: Normal mood and affect. Objective Objective Clinical Data: Abnormal lab results 11/09/18 11/09/18 11/09/18 Range/Units 07:16 07:16 07:16 RBC 3.90 L (4.00-5.20) m/cumm Hgb 11.3 L (12.0-15.5) g/dL Hct 34.5 L (36.0-46.0) % RDW 14.8 H (11.7-14.6) % Absolute Monocytes 0.86 H (0.11-0.7) k/cumm PT 21.8 H D (9.3-11.0) sec INR 2.2 H D (0.9-1.1) Chloride 108 H (98-107) mmol/L Calcium 7.9 L (8.5-10.1) mg/dL Vital Signs Temperature 37.3 C 11/09/18 07:37 Temperature Source Tympanic 11/09/18 07:37 Pulse 66 11/09/18 07:37 Pulse Rhythm Regular 11/08/18 20:00 Respiratory Rate 14 11/09/18 07:37 Respiratory Effort Non-Labored 11/08/18 20:00 Respiratory Depth Normal 11/08/18 20:00 Respiratory Pattern Normal 11/08/18 20:00 Blood Pressure 105/65 11/09/18 07:37 Blood Pressure Position Sitting 11/07/18 06:29 Pulse Oximetry 96 11/09/18 07:37 Oxygen Delivery Method Room Air 11/09/18 07:37 Oxygen Flow Rate 0 11/09/18 07:37 Pain Level 10 11/09/18 14:00 Comment 11/08/18 16:29 Intake & Output 11/08/18 11/09/18 11/09/18 23:59 11:59 23:59 Intake Total 1700 / 3298.333 1473.333 / 2073.333 600 / 2073.333 Balance 1700 / 3298.333 1473.333 / 2073.333 600 / 2073.333 Intake: IV 1220 / 2138.333 1173.333 / 1173.333 Oral 480 / 1160 300 / 900 600 / 900 Other: Voiding Methods Toilet Laboratory Results WBC 8.13 k/cumm (4.4-10.8) 11/09/18 07:16 RBC 3.90 m/cumm (4.00-5.20) L 11/09/18 07:16 Hgb 11.3 g/dL (12.0-15.5) L 11/09/18 07:16 Hct 34.5 % (36.0-46.0) L 11/09/18 07:16 MCV 88.5 fL (80-95) 11/09/18 07:16 MCH 29.0 pg (27.0-33.0) 11/09/18 07:16 MCHC 32.8 g/dL (32.0-36.0) 11/09/18 07:16 RDW 14.8 % (11.7-14.6) H 11/09/18 07:16 Plt Count 190 x1000/uL (130-400) 11/09/18 07:16 MPV 10.9 fL (8.0-11.0) 11/09/18 07:16 Immature Gran % 0.2 11/09/18 07:16 69.2 11/09/18 07:16 17.7 11/09/18 07:16 10.6 11/09/18 07:16 2.1 11/09/18 07:16 0.2 11/09/18 07:16 Absolute Neutrophils 5.62 k/cumm (1.2-6.7) 11/09/18 07:16 Absolute Lymphocytes 1.44 k/cumm (1.2-3.4) 11/09/18 07:16 Absolute Monocytes 0.86 k/cumm (0.11-0.7) H 11/09/18 07:16 Absolute Eosinophils 0.17 k/cumm (0.0-0.7) 11/09/18 07:16 Absolute Basophils 0.02 k/cumm (0.0-0.2) 11/09/18 07:16 PT 21.8 sec (9.3-11.0) H D 11/09/18 07:16 INR 2.2 (0.9-1.1) H D 11/09/18 07:16 APTT 34.8 sec (21.0-31.4) H 11/07/18 06:47 Sodium 142 mmol/L (136-145) 11/09/18 07:16 Potassium 3.8 mmol/L (3.5-5.1) 11/09/18 07:16 Chloride 108 mmol/L (98-107) H 11/09/18 07:16 Carbon Dioxide 23.1 mmol/L (21.0-32.0) 11/09/18 07:16 10.9 mmol/L (3-11) 11/09/18 07:16 BUN 8 mg/dL (7-18) 11/09/18 07:16 0.84 mg/dL (0.55-1.02) 11/09/18 07:16 >= 60.00 (mL/min/1.73m2) 11/09/18 07:16 Glucose 90 mg/dL (70-100) 11/09/18 07:16 Calcium 7.9 mg/dL (8.5-10.1) L 11/09/18 07:16 Magnesium 1.8 mg/dL (1.8-2.4) 11/09/18 07:16 0.3 mg/dL (0.2-1.0) 11/07/18 06:47 AST 12 U/L (15-37) L 11/07/18 06:47 ALT 25 U/L (12-78) 11/07/18 06:47 48 U/L (46-116) 11/07/18 06:47 6.7 g/dL (6.4-8.2) 11/07/18 06:47 3.6 g/dL (3.4-5.0) 11/07/18 06:47
--- NOTE | 2018-11-09 14:44 | PHARADMIT ---
Addendum entered by Woodrow Prince III 11/11/18 13:16: Pharmacy Note Subjective ORBITAL/FACIAL SWELLING HAS DIMINISHED. Hospitalist is in consultation with [facility] regarding ABX therapy. Objective VS-OK, INR-1.0 Labs-OK Assessment Warfarin must be on constantly. EXTRA DOSE (5MG) given today. Vancomycin trough drawn early 21.1 extrapolates to 19.2) continue same dose. Plan Patient refuses to take PO ABX because of past ADRs which limits MD choices for her care. Addendum entered by Janae Ro 11/10/18 16:36: Pharmacy Note Subjective eye finally starting to look better per morning report Objective VS-okay INR-1.1 Assessment vanco trough came back high at 22.8, dose adjusted to 1 gram Q12H to target a trough of 14.9 vanco (day 3) and ceftriaxone (day 4) continue enoxaparin ordered 60 mg BID until INR improves (was subtherapeutic today) prn morphine dose increased to 4-5 mg Q3h PRN Plan vanco trough ordered for tomorrow, adjust dose if needed watch INR Original Note: Admission Pharmacy Clinical Review Code Status Full Code Current Weight 56.699 kg Renally Cleared and Narrow Therapeutic Index Meds CrCl ~67, meds ok QTc Value / Action Taken N/A BP Control, Fever BP 105/65, afebrile Electrolytes reviewed Na 142, L 3.8, Mg 1.8 DVT Prophylaxis No (warfarin) Opiate Usage / Scheduled Bowel Regimen Ordered PRN, yes Plt/SCr for Heparin / Enoxaparin Plt 190, Scr 0.84 INR for Warfarin 2.2 (down from 6.1 on 11/08) H/H stable, WBC/Bands H/H 34.5/11.3, WBC 8.13 Antibiotic appropriateness Yes -- Vanco + Ceftriaxone Cultures and Sensitivities N/A Surgical ABX d/c within 24 hr N/A DM control / Insulin Dosing N/A Heart Failure (Check EF%) (KACIE's, B-Block, Diuretics) N/A IV to PO Switch Home Meds Reviewed Yes, all ok Home Meds Not Ordered Sumatriptan Comments Clindamycin and ceftriaxone were initially started for preseptal cellulitis but pt's symptoms worsened yesterday and clindamycin was changed to Vanco (hx of MRSE in August) and Ceftriaxone dose was increased to 2 grams; will transfer to [facility] in case of continued progression and need for opthalmologist; Warfarin was restarted as INR is now therapeutic
--- NOTE | 2018-11-09 15:35 | DI.CT_ITS ---
SYMPTOMS/DIAGNOSIS: WORSENING PRESEPTAL CELLULITIS, ? PROGRESSION TO ORBITAL CELLULITIS CT SCAN OF THE ORBITS: CT scan of the orbits was performed following the uneventful administration of intravenous contrast material. Comparison is 11/07/18. There has been an increase in the left periorbital infiltration consistent with progression of the left periorbital cellulitis. No focal fluid collection is seen to suggest an abscess. There is asymmetric enlargement of the left lacrimal gland, which may be due to inflammatory change. The orbits and retroorbital soft tissues are unremarkable. The osseous structures are unremarkable. The visualized paranasal sinuses are clear. No fluid levels are seen. The mastoid air cells are well pneumatized. IMPRESSION: 1. Worsening left periorbital cellulitis. No abscess. 2. Enlargement of the left lacrimal duct, which may be infectious or inflammatory in nature.
[2018-11-09] MEDS: Omnipaque 350 MG/ML 100 ML BTL IJ (15:36)
[2018-11-09 15:56] VITALS: BP 136/81; PULSE 96; RESP 15; TEMP 37.7; O2SAT 100
--- NOTE | 2018-11-09 16:03 | CHAPLAIN ---
Suzie was up walking around her room when I visited. Her mom and a nephew were visiting also. Suzie showed me her swollen eye, and talked about the headache and pain associated with it. Using a heating pad has helped some, she said, and icing has made it worse. At one point while we were talking, Suzie hit her head on the post of the bed because she's only seeing with one bed. I explained my role and offered support.
[2018-11-09 16:48] LABS: Vancomycin, Trough 29.1 ug/mL (10.0-20.0)
--- NOTE | 2018-11-09 16:58 | CMPROGNOTE_ITS ---
- If Service Date Differs Date of service: 11/09/18 Time of Service: 16:59 Care Management Progress Note S/O: Suzie remains inpatient her left eye continues to be swollen and red, which has now spread down her left cheek. Provider contacted [facility] and they have accepted her in transfer she has talked to her son and family to update them. Suzie remains positive she is upset she had a date with her sister tomorrow to attend a concert which she will have to miss. She reports her pain is still very present and feels that it is being managed by the provider and nurse. Suzie wants to take a shower prior to discharge and she is requesting diflucan she is worried about the start of a yeast related to vancomycin the provider is aware. Suzie is a 38 year old female with vel-orbital cellulitis of the left eye. P:Suzie is currently receiving IV antibiotics, Suzie will remain inpatient at this time she will be transferred to [facility] once a bed is available. Ambulance transfer to be coordinated via RN regulation supervisor.
--- NOTE | 2018-11-09 17:36 | DI.VRAD_ITS ---
EXAM: CT Orbits With Contrast EXAM DATE/TIME: 11/09/2018 3:40 PM CLINICAL HISTORY: 38 years old, female; Other: Edema TECHNIQUE: Imaging protocol: Computed tomography images of the orbits with intravenous contrast. Coronal and sagittal reformatted images were created and reviewed. Contrast material: OMNIPAQUE 350; Contrast volume: 100 ml; Contrast route: IV; COMPARISON: CT orbits w 11/07/2018 7:01 AM FINDINGS: Orbits: There is mild hyperemia and enlargement of the left lacrimal gland. The intraconal tissues appear intact. Sinuses: Normal. No air-fluid levels. Bones/joints: No acute fracture. Soft tissues: There is significant left periorbital edema. It extends to the left frontal scalp level. IMPRESSION: Left periorbital cellulitis. There appears to be some inflammatory changes associated with the lacrimal duct. COMMENT: Preliminary interpretation is based on receipt of 434 image(s). A final report will be issued subsequently. Dictated and Authenticated by: Blanca Graham MD. Ordering:VINCENT Lake MD
[2018-11-09] MEDS: Normal Saline Flush 10 ML SYR IVP ×3 (18:06→21:39)
[2018-11-09] MEDS: Levothyroxine 100 MCG TAB PO (19:34)
[2018-11-09] MEDS: Cyproheptadine 4 MG TAB PO (20:57)
[2018-11-09] MEDS: Topiramate 100 MG TAB 400 MG PO (20:57)
[2018-11-09 23:55] VITALS: BP 128/62; PULSE 75; RESP 16; TEMP 37; O2SAT 98
[2018-11-10] MEDS: Normal Saline Flush 10 ML SYR IVP ×8 (06:20→23:13)
[2018-11-10 07:32] LABS: Anion Gap 11.8 mmol/L (3-11); BUN 11 mg/dL (7-18); CO2 21.2 mmol/L (21.0-32.0); CREATININE 0.89 mg/dL (0.55-1.02); Calcium 8.4 mg/dL (8.5-10.1); Chloride 107 mmol/L (98-107); Glucose 114 mg/dL (70-100); Magnesium 2.2 mg/dL (1.8-2.4); Sodium 140 mmol/L (136-145)
[2018-11-10 07:40] VITALS: BP 118/80; PULSE 80; RESP 17; TEMP 36.9; O2SAT 98
[2018-11-10 07:44] LABS: Abs Immature Grans 0.03 k/cumm (0.0-0.09); Absolute Basophil Count 0.03 k/cumm (0.0-0.2); Absolute Eosinophil Count 0.29 k/cumm (0.0-0.7); Absolute Lymphocyte Count 1.94 k/cumm (1.2-3.4); Absolute Monocyte Count 0.89 k/cumm (0.11-0.7); Absolute Neutrophil Count 6.63 k/cumm (1.2-6.7); Basophils % 0.3; HCT 39.7 % (36.0-46.0); HGB 13.1 g/dL (12.0-15.5); INR 1.1 (0.9-1.1); Immature Grans % 0.3; Lymphocytes % 19.8; Mean Corpuscular Hemoglobin 28.7 pg (27.0-33.0); Mean Corpuscular Volume 87.1 fL (80-95); Mean Platelet Volume 11.1 fL (8.0-11.0); Monocytes % 9.1; Neutrophils % 67.5; Platelet Count 221 x1000/uL (130-400); Prothrombin Time 11.4 sec (9.3-11.0); RBC 4.56 m/cumm (4.00-5.20); RBC Distribution Width 14.5 % (11.7-14.6); White Blood Cell Count 9.81 k/cumm (4.4-10.8)
[2018-11-10] MEDS: Acetaminophen 325 MG TAB PO ×2 (07:52→12:31)
[2018-11-10] MEDS: Lactobacillus Acidophilus CAP 1 CAP PO ×3 (08:35→20:20)
[2018-11-10] MEDS: Methylphenidate 10 MG TAB 20 MG PO ×3 (08:35→15:17)
[2018-11-10] MEDS: Fexofenadine 180 MG TAB PO (08:35)
[2018-11-10] MEDS: Enoxaparin 60 MG/0.6 ML SYR SC ×2 (10:56→21:55)
[2018-11-10] MEDS: Mometasone 220 MCG 14 DOSE INHALER 2 PUFF IH ×2 (12:19→13:49)
[2018-11-10] MEDS: cefTRIAXone 2 GM/50 ML BAG IVPB (12:33)
[2018-11-10] MEDS: Clotrimazole/Betamet Diprop Cream 15 GM TUBE TP ×2 (14:32→20:18)
--- NOTE | 2018-11-10 15:05 | W.PM.PROGNOT ---
Date of Service Date of service: 11/10/18 Time of Service: 15:05 Assessment and Plan (1) Preseptal cellulitis: Current visit: Yes Status: Acute No evidence of Orbital Cellulitis by CT, and despite area of induration no area of abscess by initial CT or ultrasound. Given multiple allergies and intolerance to antibiotics, regimen of IV Clindamycin and Ceftriaxone was chosen. However, as the patient's symptoms were worsening, Clindamycin was discontinued in favor of IV Vancomycin - history of MRSA infection in August with sensititivities not including testing against Clinda. High dose Ceftriaxone was continued, and IV Metronidazole added on 11/09. This plan was discussed with ID at [facility] and agreed upon as best course of action. Repeat CT without orbital cellulitis - does note worsening of the left periorbital cellulitis and potential involvement of the left lacrimal duct. However, remains afebrile, no leukocytosis, and without signs of systemic toxicity, and with exam today appearing improved. Will hold off on transfer to tertiary center, and monitor closely. (2) ADHD (attention deficit hyperactivity disorder), inattentive type: Current visit: No Status: Chronic Continue Home Methylphenidate. (3) Factor V Leiden mutation: Current visit: No Status: Chronic With history of recurrent DVTs. Continue to monitor daily INR, which is subtherapeutic today - initiate therapeutic dosed Enoxaparin while INR improved. Monitor daily on IV antibiotics. (4) Hypothyroidism: Current visit: No Status: Chronic On replacement therapy. (5) DVT prophylaxis: Current visit: Yes Status: Acute On chronic anticoagulation as above. Subjective Interval history since last seen: 38-year-old woman with a prior history significant for MRSA infection with abscess requiring hospitalization and drainage last August, admitted from [facility] Emergency Department on 11/07 with a diagnosis of Periorbital Cellulitis. Ms. Rodriguez has a prior history significant for Factor V Leiden with prior DVTs, on chronic anticoagulation with Warfarin, as well as previously noted Intractable vomiting, Mirgraines, ADHD, Asthma, GERD, and Hypothyroidism. She was recently admitted to this facility in August for a a left buttock abscess, and given her multiple antibiotic allergies and intolerance of oral formulations, required completion of antibiotic course in the infusion center following discharge. Her culture results were positive for MRSA, and she was treated with IV Vancomycin. The patient presented to the ED with a reported 4 day history of left eye swelling. She developed what was described as a 'bump' on her left brow at that time, and presumed an insect bite. She was prescribed steroids by her on-call physician, with symptoms worsening culminating in her ED visit. Evaluation revealed evidence of a leukocytosis, and exam with evidence of erythema and swelling of the periorbital region on the left. CT ruled out Orbital Cellulitis, and ultrasound reportedly showed no evidence of drainable fluid collection. There is reported pain with palpation of the area, as well as reported pain with movement of the eye but no vision changes. She was referred for admission for further evaluation and treatment. By the morning following admission Ms. Rodriguez's WBC has normalized - however, while the erythema surrounding her orbit looked unchange, the swelling and pain was significantly worse. Vancomycin was initiated in place of Clindamycin, and she was maintained on high dose Ceftriaxone. However, her symptoms continued to worsen prompting broadening of her coverage to include Flagyl, and repeat discussion with ID, Optho, and ultimately acceptance in transfer to [facility]. However, this morning while stil edematous and painful, the patient's erythema has regressed substantially, and the infection looks improved. She continues to remain afebrile, nontachycardic, and without a leukocytosis. Exam Narrative Exam Narrative: General: Patient appears uncomfortable and in pain, AAOX3, NAD HEENT: Left orbital region with surrounding cellulitic changes, however with significant decrease in warmth. Erythema now restricted to just the eyelid and brow, with slight extension circumferentially around the left orbit. Color is now school guidance counselor and less erythematous than before. Still with continued and significant edema surrounding the eye and left face. Psych: Normal mood and affect. Objective Objective Clinical Data: Abnormal lab results 11/09/18 11/10/18 11/10/18 Range/Units 16:15 06:50 06:50 MPV 11.1 H (8.0-11.0) fL Absolute Monocytes 0.89 H (0.11-0.7) k/cumm PT (9.3-11.0) sec Anion Gap 11.8 H (3-11) mmol/L Glucose 114 H (70-100) mg/dL Calcium 8.4 L (8.5-10.1) mg/dL Vancomycin Trough 29.1 H* (10.0-20.0) ug/mL 11/10/18 Range/Units 06:50 MPV (8.0-11.0) fL Absolute Monocytes (0.11-0.7) k/cumm PT 11.4 H D (9.3-11.0) sec Anion Gap (3-11) mmol/L Glucose (70-100) mg/dL Calcium (8.5-10.1) mg/dL Vancomycin Trough (10.0-20.0) ug/mL Vital Signs Temperature 36.9 C 11/10/18 07:40 Temperature Source Tympanic 11/10/18 07:40 Pulse 80 11/10/18 07:40 Pulse Rhythm Regular 11/10/18 09:05 Respiratory Rate 17 11/10/18 07:40 Respiratory Effort Non-Labored 11/10/18 09:05 Respiratory Depth Normal 11/10/18 09:05 Respiratory Pattern Normal 11/10/18 09:05 Blood Pressure 118/80 11/10/18 07:40 Blood Pressure Position Sitting 11/07/18 06:29 Pulse Oximetry 98 11/10/18 07:40 Oxygen Delivery Method Room Air 11/10/18 07:40 Oxygen Flow Rate 0 11/10/18 07:40 Pain Level 9 11/10/18 14:47 Comment 11/08/18 16:29 Intake & Output 11/09/18 11/10/18 11/10/18 23:59 11:59 23:59 Intake Total 2120 / 3593.333 420 / 1160 740 / 1160 Balance 2120 / 3593.333 420 / 1160 740 / 1160 Intake: IV 1220 / 2393.333 20 / 270 250 / 270 Oral 900 / 1200 400 / 890 490 / 890 Other: Urine Color Yellow Urine Appearance Clear Clear Urine Odor Normal Comment pt gets up as needed to void. Pt flushed toilet before RN could assess, pt asked to urinate into the hat so that RN could assess at the time of next void. Pt stated that her urine was yellow and had a normal odor. RN will assess at next void. Voiding Methods Toilet Toilet Laboratory Results WBC 9.81 k/cumm (4.4-10.8) 11/10/18 06:50 RBC 4.56 m/cumm (4.00-5.20) 11/10/18 06:50 Hgb 13.1 g/dL (12.0-15.5) 11/10/18 06:50 Hct 39.7 % (36.0-46.0) 11/10/18 06:50 MCV 87.1 fL (80-95) 11/10/18 06:50 MCH 28.7 pg (27.0-33.0) 11/10/18 06:50 MCHC 33.0 g/dL (32.0-36.0) 11/10/18 06:50 RDW 14.5 % (11.7-14.6) 11/10/18 06:50 Plt Count 221 x1000/uL (130-400) 11/10/18 06:50 MPV 11.1 fL (8.0-11.0) H 11/10/18 06:50 Immature Gran % 0.3 11/10/18 06:50 67.5 11/10/18 06:50 19.8 11/10/18 06:50 9.1 11/10/18 06:50 3.0 11/10/18 06:50 0.3 11/10/18 06:50 Absolute Neutrophils 6.63 k/cumm (1.2-6.7) 11/10/18 06:50 Absolute Lymphocytes 1.94 k/cumm (1.2-3.4) 11/10/18 06:50 Absolute Monocytes 0.89 k/cumm (0.11-0.7) H 11/10/18 06:50 Absolute Eosinophils 0.29 k/cumm (0.0-0.7) 11/10/18 06:50 Absolute Basophils 0.03 k/cumm (0.0-0.2) 11/10/18 06:50 PT 11.4 sec (9.3-11.0) H D 11/10/18 06:50 INR 1.1 (0.9-1.1) D 11/10/18 06:50 APTT 34.8 sec (21.0-31.4) H 11/07/18 06:47 Sodium 140 mmol/L (136-145) 11/10/18 06:50 Potassium 4.0 mmol/L (3.5-5.1) 11/10/18 06:50 Chloride 107 mmol/L (98-107) 11/10/18 06:50 Carbon Dioxide 21.2 mmol/L (21.0-32.0) 11/10/18 06:50 11.8 mmol/L (3-11) H 11/10/18 06:50 BUN 11 mg/dL (7-18) 11/10/18 06:50 0.89 mg/dL (0.55-1.02) 11/10/18 06:50 >= 60.00 (mL/min/1.73m2) 11/10/18 06:50 Glucose 114 mg/dL (70-100) H 11/10/18 06:50 Calcium 8.4 mg/dL (8.5-10.1) L 11/10/18 06:50 Magnesium 2.2 mg/dL (1.8-2.4) 11/10/18 06:50 0.3 mg/dL (0.2-1.0) 11/07/18 06:47 AST 12 U/L (15-37) L 11/07/18 06:47 ALT 25 U/L (12-78) 11/07/18 06:47 48 U/L (46-116) 11/07/18 06:47 6.7 g/dL (6.4-8.2) 11/07/18 06:47 3.6 g/dL (3.4-5.0) 11/07/18 06:47 Vancomycin Trough 29.1 ug/mL (10.0-20.0) H* 11/09/18 16:15
[2018-11-10 15:50] VITALS: BP 123/81; PULSE 81; RESP 17; TEMP 37.1; O2SAT 100
[2018-11-10 16:07] LABS: Vancomycin, Trough 22.8 ug/mL (10.0-20.0)
--- NOTE | 2018-11-10 16:12 | PDOC.CMPRO ---
- If Service Date Differs Date of service: 11/10/18 Time of Service: 16:12 Care Management Progress Note S/O: Suzie remains inpatient her left eye continues to be swollen and red, which appears to be improving with the IV antibiotics. She will not be transferred today and continue with treatment as planned. She reports her pain is still very present and feels that it is being managed by the provider and nurse. Suzie is a 38 year old female with vel-orbital cellulitis of the left eye. P:Suzie is currently receiving IV antibiotics, Suzie will remain inpatient at this time and have a midline placed. She will be discharged home when medically ready per provider.
[2018-11-10] MEDS: MORPHine 10 MG/ML VIAL IVP ×3 (17:10→23:12)
[2018-11-10] MEDS: WARFARIN 5 MG, WARFARIN 2.5 MG 7.5 MG PO (20:20)
[2018-11-10] MEDS: Levothyroxine 100 MCG TAB PO (20:20)
[2018-11-10] MEDS: Metoclopramide 10 MG/2 ML VIAL IVP (20:20)
[2018-11-10] MEDS: Cyproheptadine 4 MG TAB PO (21:56)
[2018-11-10] MEDS: Topiramate 100 MG TAB 400 MG PO (21:56)
[2018-11-11] MEDS: Acetaminophen 325 MG TAB PO (01:32)
[2018-11-11] MEDS: MORPHine 10 MG/ML VIAL IVP ×7 (02:11→23:25)
[2018-11-11] MEDS: Normal Saline Flush 10 ML SYR IVP ×5 (02:12→23:25)
[2018-11-11 02:52] VITALS: BP 113/73; PULSE 84; RESP 16; TEMP 36.6; O2SAT 100
[2018-11-11 07:23] LABS: Abs Immature Grans 0.02 k/cumm (0.0-0.09); Absolute Basophil Count 0.02 k/cumm (0.0-0.2); Absolute Eosinophil Count 0.47 k/cumm (0.0-0.7); Absolute Lymphocyte Count 2.05 k/cumm (1.2-3.4); Absolute Monocyte Count 0.79 k/cumm (0.11-0.7); Absolute Neutrophil Count 6.31 k/cumm (1.2-6.7); Basophils % 0.2; Eosinophils % 4.9; HGB 12.9 g/dL (12.0-15.5); Immature Grans % 0.2; Lymphocytes % 21.2; Mean Corp. HGB Concentration 33.1 g/dL (32.0-36.0); Mean Corpuscular Hemoglobin 28.6 pg (27.0-33.0); Mean Corpuscular Volume 86.5 fL (80-95); Monocytes % 8.2; Neutrophils % 65.3; Platelet Count 281 x1000/uL (130-400); RBC 4.51 m/cumm (4.00-5.20); RBC Distribution Width 14.4 % (11.7-14.6); White Blood Cell Count 9.66 k/cumm (4.4-10.8)
[2018-11-11 07:26] VITALS: BP 110/75; PULSE 79; RESP 19; TEMP 36.8; O2SAT 98
[2018-11-11 07:40] LABS: Prothrombin Time 9.7 sec (9.3-11.0)
[2018-11-11] MEDS: Lactobacillus Acidophilus CAP 1 CAP PO ×3 (09:05→20:27)
[2018-11-11] MEDS: Fexofenadine 180 MG TAB PO (09:05)
[2018-11-11] MEDS: Methylphenidate 10 MG TAB 20 MG PO ×3 (09:06→15:13)
[2018-11-11] MEDS: Mometasone 220 MCG 14 DOSE INHALER 2 PUFF IH ×2 (09:27→20:27)
[2018-11-11] MEDS: Clotrimazole/Betamet Diprop Cream 15 GM TUBE TP ×2 (09:27→20:27)
[2018-11-11] MEDS: Enoxaparin 60 MG/0.6 ML SYR SC ×2 (09:52→22:18)
[2018-11-11 11:06] LABS: Anion Gap 12.1 mmol/L (3-11); BUN 16 mg/dL (7-18); CO2 21.9 mmol/L (21.0-32.0); CREATININE 0.97 mg/dL (0.55-1.02); Calcium 9.1 mg/dL (8.5-10.1); Chloride 106 mmol/L (98-107); Glucose 89 mg/dL (70-100); Magnesium 2.3 mg/dL (1.8-2.4); Potassium 4.1 mmol/L (3.5-5.1); Sodium 140 mmol/L (136-145)
[2018-11-11] MEDS: clonazePAM 1 MG TAB PO ×2 (13:15→23:29)
[2018-11-11] MEDS: cefTRIAXone 2 GM/50 ML BAG IVPB (13:16)
--- NOTE | 2018-11-11 15:01 | W.PM.PROGNOT ---
Date of Service Date of service: 11/11/18 Time of Service: 15:02 Assessment and Plan (1) Preseptal cellulitis: Current visit: Yes Status: Acute No evidence of Orbital Cellulitis by CT, and despite area of induration no area of abscess by initial CT or ultrasound. Given multiple allergies and intolerance to antibiotics, regimen of IV Clindamycin and Ceftriaxone was chosen. However, as the patient's symptoms were worsening, Clindamycin was discontinued in favor of IV Vancomycin - history of MRSA infection in August with sensititivities not including testing against Clinda. High dose Ceftriaxone was continued, and IV Metronidazole added on 11/09 due to continued worsening symptoms. This plan was discussed with ID at [facility] and agreed upon as best course of action. Repeat CT without orbital cellulitis - does note worsening of the left periorbital cellulitis and potential involvement of the left lacrimal duct, matching worsening symptoms. However, remains afebrile, no leukocytosis, and without signs of systemic toxicity, and with exam appearing vastly improved. Will continue current regimen. Of note - Miss Rodriguez has an intolerance to oral antibiotics, and has required completion of antibiotic course with IV Formulations in the past. For ease of administration, patient may need to transition to Swing Bed Status. (2) ADHD (attention deficit hyperactivity disorder), inattentive type: Current visit: No Status: Chronic Continue Home Methylphenidate. (3) Factor V Leiden mutation: Current visit: No Status: Chronic With history of recurrent DVTs. Continue to monitor daily INR, which is subtherapeutic today - initiate therapeutic dosed Enoxaparin while INR improved. Monitor daily on IV antibiotics. (4) Hypothyroidism: Current visit: No Status: Chronic On replacement therapy. (5) DVT prophylaxis: Current visit: Yes Status: Acute On chronic anticoagulation as above. Subjective Interval history since last seen: 38-year-old woman with a prior history significant for MRSA infection with abscess requiring hospitalization and drainage last August, admitted from [facility] Emergency Department on 11/07 with a diagnosis of Periorbital Cellulitis. Ms. Rodriguez has a prior history significant for Factor V Leiden with prior DVTs, on chronic anticoagulation with Warfarin, as well as previously noted Intractable vomiting, Mirgraines, ADHD, Asthma, GERD, and Hypothyroidism. She was recently admitted to this facility in August for a a left buttock abscess, and given her multiple antibiotic allergies and intolerance of oral formulations, required completion of antibiotic course in the infusion center following discharge. Her culture results were positive for MRSA, and she was treated with IV Vancomycin. The patient presented to the ED with a reported 4 day history of left eye swelling. She developed what was described as a 'bump' on her left brow at that time, and presumed an insect bite. She was prescribed steroids by her on-call physician, with symptoms worsening culminating in her ED visit. Evaluation revealed evidence of a leukocytosis, and exam with evidence of erythema and swelling of the periorbital region on the left. CT ruled out Orbital Cellulitis, and ultrasound reportedly showed no evidence of drainable fluid collection. There is reported pain with palpation of the area, as well as reported pain with movement of the eye but no vision changes. She was referred for admission for further evaluation and treatment. By the morning following admission Ms. Lozanos WBC has normalized - however, while the erythema surrounding her orbit looked unchange, the swelling and pain was significantly worse. Vancomycin was initiated in place of Clindamycin, and she was maintained on high dose Ceftriaxone. However, her symptoms continued to worsen prompting broadening of her coverage to include Flagyl, and repeat discussion with ID, Optho, and ultimately acceptance in transfer to [facility]. However, by the next morning while still edematous and painful, the patient's erythema has regressed substantially, and the infection looked improved. She continues to remain afebrile, nontachycardic, and without a leukocytosis. This morning she appears to be improved again. No overnight events reported. Exam Narrative Exam Narrative: General: Patient appears uncomfortable and in pain, AAOX3, NAD HEENT: Left orbital region with surrounding cellulitic changes, however with significant decrease in warmth. Erythema now restricted to just the eyelid and brow, regressed since yesteday, with slight extension circumferentially around the left orbit. Color is now even address change clerk and less erythematous than before. Still with continued and significant edema surrounding the eye and left face. also appears improved. Psych: Normal mood and affect. Objective Objective Clinical Data: Abnormal lab results 11/10/18 11/11/18 11/11/18 Range/Units 15:18 06:32 06:32 Absolute Monocytes 0.79 H (0.11-0.7) k/cumm Anion Gap 12.1 H (3-11) mmol/L Vancomycin Trough 22.8 H* (10.0-20.0) ug/mL Vital Signs Temperature 36.8 C 11/11/18 07:26 Temperature Source Tympanic 11/11/18 07:26 Pulse 79 11/11/18 07:26 Pulse Rhythm Regular 11/11/18 08:30 Respiratory Rate 19 11/11/18 07:26 Respiratory Effort Non-Labored 11/11/18 08:30 Respiratory Depth Normal 11/11/18 08:30 Respiratory Pattern Normal 11/11/18 08:30 Blood Pressure 110/75 11/11/18 07:26 Blood Pressure Position Sitting 11/07/18 06:29 Pulse Oximetry 98 11/11/18 07:26 Oxygen Delivery Method Room Air 11/11/18 07:26 Oxygen Flow Rate 0 11/11/18 07:26 Pain Level 10 11/11/18 09:04 Comment 11/08/18 16:29 Intake & Output 11/10/18 11/11/18 11/11/18 23:59 11:59 23:59 Intake Total 940 / 1360 210 / 210 Balance 940 / 1360 210 / 210 Intake: IV 450 / 470 210 / 210 Oral 490 / 890 Other: Urine Color Yellow Pale Yellow Urine Appearance Clear Clear Urine Odor Normal None Comment Pt flushed toilet before RN could assess, pt asked to urinate into the hat so that RN could assess at the time of next void. Pt stated that her urine was yellow and had a normal odor. RN will assess at next void. Voiding Methods Toilet Toilet Laboratory Results WBC 9.66 k/cumm (4.4-10.8) 11/11/18 06:32 RBC 4.51 m/cumm (4.00-5.20) 11/11/18 06:32 Hgb 12.9 g/dL (12.0-15.5) 11/11/18 06:32 Hct 39.0 % (36.0-46.0) 11/11/18 06:32 MCV 86.5 fL (80-95) 11/11/18 06:32 MCH 28.6 pg (27.0-33.0) 11/11/18 06:32 MCHC 33.1 g/dL (32.0-36.0) 11/11/18 06:32 RDW 14.4 % (11.7-14.6) 11/11/18 06:32 Plt Count 281 x1000/uL (130-400) 11/11/18 06:32 MPV 11.0 fL (8.0-11.0) 11/11/18 06:32 Immature Gran % 0.2 11/11/18 06:32 65.3 11/11/18 06:32 21.2 11/11/18 06:32 8.2 11/11/18 06:32 4.9 11/11/18 06:32 0.2 11/11/18 06:32 Absolute Neutrophils 6.31 k/cumm (1.2-6.7) 11/11/18 06:32 Absolute Lymphocytes 2.05 k/cumm (1.2-3.4) 11/11/18 06:32 Absolute Monocytes 0.79 k/cumm (0.11-0.7) H 11/11/18 06:32 Absolute Eosinophils 0.47 k/cumm (0.0-0.7) 11/11/18 06:32 Absolute Basophils 0.02 k/cumm (0.0-0.2) 11/11/18 06:32 PT 9.7 sec (9.3-11.0) 11/11/18 06:32 INR 1.0 (0.9-1.1) 11/11/18 06:32 APTT 34.8 sec (21.0-31.4) H 11/07/18 06:47 Sodium 140 mmol/L (136-145) 11/11/18 06:32 Potassium 4.1 mmol/L (3.5-5.1) 11/11/18 06:32 Chloride 106 mmol/L (98-107) 11/11/18 06:32 Carbon Dioxide 21.9 mmol/L (21.0-32.0) 11/11/18 06:32 12.1 mmol/L (3-11) H 11/11/18 06:32 BUN 16 mg/dL (7-18) 11/11/18 06:32 0.97 mg/dL (0.55-1.02) 11/11/18 06:32 >= 60.00 (mL/min/1.73m2) 11/11/18 06:32 Glucose 89 mg/dL (70-100) 11/11/18 06:32 Calcium 9.1 mg/dL (8.5-10.1) 11/11/18 06:32 Magnesium 2.3 mg/dL (1.8-2.4) 11/11/18 06:32 0.3 mg/dL (0.2-1.0) 11/07/18 06:47 AST 12 U/L (15-37) L 11/07/18 06:47 ALT 25 U/L (12-78) 11/07/18 06:47 48 U/L (46-116) 11/07/18 06:47 6.7 g/dL (6.4-8.2) 11/07/18 06:47 3.6 g/dL (3.4-5.0) 11/07/18 06:47 Vancomycin Trough 22.8 ug/mL (10.0-20.0) H* 11/10/18 15:18
[2018-11-11] MEDS: Warfarin 5 MG TAB PO (15:22)
--- NOTE | 2018-11-11 15:36 | PDOC.CMPRO ---
- If Service Date Differs Date of service: 11/11/18 Time of Service: 15:36 Care Management Progress Note S/O: Suzie remains acute today she may transition to SB1 for continued antibiotics. Suzie is ambulating she remains in good spirts her pain is being managed. A:Suzie is a 38 year old female with vel-orbital cellulitis of the left eye. P:Suzie is currently receiving IV antibiotics, She will likely transition to SB1 when medically ready. Suzie will She will be discharged home when medically ready per provider. She will transport home with her family at time of discharge.
[2018-11-11 16:22] VITALS: BP 154/93; PULSE 84; RESP 17; TEMP 36.8; O2SAT 95
[2018-11-11 17:27] LABS: Vancomycin, Trough 21.1 ug/mL (10.0-20.0)
[2018-11-11] MEDS: Levothyroxine 100 MCG TAB PO (20:26)
[2018-11-11] MEDS: Warfarin 5 MG TAB 10 MG PO (20:28)
[2018-11-11] MEDS: Cyproheptadine 4 MG TAB PO (22:17)
[2018-11-11] MEDS: Topiramate 100 MG TAB 400 MG PO (22:18)
[2018-11-12] MEDS: MORPHine 10 MG/ML VIAL IVP ×4 (01:25→13:42)
[2018-11-12] MEDS: Normal Saline Flush 10 ML SYR IVP ×5 (05:42→13:44)
[2018-11-12 06:17] VITALS: BP 100/63; PULSE 65; RESP 16; TEMP 36.9; O2SAT 98
[2018-11-12 07:19] LABS: Abs Immature Grans 0.03 k/cumm (0.0-0.09); Absolute Basophil Count 0.03 k/cumm (0.0-0.2); Absolute Eosinophil Count 0.47 k/cumm (0.0-0.7); Absolute Lymphocyte Count 2.11 k/cumm (1.2-3.4); Absolute Monocyte Count 0.66 k/cumm (0.11-0.7); Absolute Neutrophil Count 4.43 k/cumm (1.2-6.7); Basophils % 0.4; Eosinophils % 6.1; HCT 37.8 % (36.0-46.0); HGB 12.5 g/dL (12.0-15.5); Immature Grans % 0.4; Lymphocytes % 27.3; Mean Corp. HGB Concentration 33.1 g/dL (32.0-36.0); Mean Corpuscular Hemoglobin 28.7 pg (27.0-33.0); Mean Corpuscular Volume 86.7 fL (80-95); Mean Platelet Volume 10.5 fL (8.0-11.0); Monocytes % 8.5; Neutrophils % 57.3; Platelet Count 254 x1000/uL (130-400); RBC 4.36 m/cumm (4.00-5.20); RBC Distribution Width 14.3 % (11.7-14.6); White Blood Cell Count 7.73 k/cumm (4.4-10.8)
[2018-11-12] MEDS: Mometasone 220 MCG 14 DOSE INHALER 2 PUFF IH (07:53)
[2018-11-12 08:03] LABS: INR 1.1 (0.9-1.1); Prothrombin Time 10.6 sec (9.3-11.0)
[2018-11-12 08:26] VITALS: BP 103/74; PULSE 68; RESP 20; TEMP 36.7; O2SAT 100
[2018-11-12] MEDS: Fexofenadine 180 MG TAB PO (08:53)
[2018-11-12] MEDS: Methylphenidate 10 MG TAB 20 MG PO ×2 (08:53→13:42)
[2018-11-12] MEDS: Lactobacillus Acidophilus CAP 1 CAP PO ×2 (08:53→13:42)
[2018-11-12] MEDS: Clotrimazole/Betamet Diprop Cream 15 GM TUBE TP (08:56)
[2018-11-12] MEDS: Ondansetron 4 MG/2 ML VIAL IVP (09:13)
--- NOTE | 2018-11-12 09:36 | PDOC.CMPRO ---
- If Service Date Differs Date of service: 11/12/18 Time of Service: 09:36 Care Management Progress Note S/O: Suzie is tearful this morning she states she continues to have pain in that left eye, however the swelling has greatly improved. She still is unable to open it and she is expressing increased level of anxiety from being trapped inside the hospital. Plan will be to swing Suzie today to provide ongoing antibiotic treatment and new PT to assist with drainage of fluid around the vel orbital area. Plan will be for at least one week of IV antibiotics pending ID recommendations and improvement of the area. A:Suzie is a 38 year old female with vel-orbital cellulitis of the left eye. P:Suzie is currently receiving IV antibiotics, She will transition SB1 today. Suzie will be discharged home when medically ready per provider. She will transport home with her family at time of discharge.
[2018-11-12] MEDS: Enoxaparin 60 MG/0.6 ML SYR SC (10:12)
[2018-11-12] MEDS: Warfarin 5 MG TAB PO (10:12)
[2018-11-12 12:43] LABS: Anion Gap 10.3 mmol/L (3-11); BUN 17 mg/dL (7-18); CO2 22.7 mmol/L (21.0-32.0); CREATININE 0.83 mg/dL (0.55-1.02); Calcium 8.8 mg/dL (8.5-10.1); Chloride 107 mmol/L (98-107); Glucose 108 mg/dL (70-100); Magnesium 2.3 mg/dL (1.8-2.4); Potassium 4.1 mmol/L (3.5-5.1); Sodium 140 mmol/L (136-145)
--- NOTE | 2018-11-12 13:20 | W.PM.DS.N ---
Date of service: 11/12/18 Time of Service: 13:20 DS: Diagnosis Discharge Diagnosis (1) Preseptal cellulitis: Status: Acute (2) ADHD (attention deficit hyperactivity disorder), inattentive type: Status: Chronic (3) Factor V Leiden mutation: Status: Chronic (4) Hypothyroidism: Status: Chronic (5) DVT prophylaxis: Status: Acute Discharge Plan Disposition Patient Disposition: [facility] SWING BED LEVEL 1 Condition: Stable Discharge Details Chief Complaint: EyeProblem Clinical Impression: Preseptal cellulitis, Supratherapeutic INR Reason For Visit: RIGOBERTO-ORBITAL CELLULITIS Admit Date/Time: 11/10/18 09:59 Admit Provider: Jaya Clarke Attending Provider: Jaya Clarke Primary Care Provider: Jonny Pettit ED Provider: Kobi Powers Hospital Course Hospital Course: Chief Complaint: Facial Swelling HPI: 38-year-old woman with a prior history significant for MRSA infection with abscess requiring hospitalization and drainage last August, admitted from [facility] Emergency Department on 11/07 with a diagnosis of Periorbital Cellulitis. Ms. Rodriguez has a prior history significant for Factor V Leiden with prior DVTs, on chronic anticoagulation with Warfarin, as well as previously noted Intractable vomiting, Mirgraines, ADHD, Anxiety, Asthma, GERD, and Hypothyroidism. She was recently admitted to this facility in August for a a left buttock abscess, and given her multiple antibiotic allergies and intolerance of oral formulations, required completion of antibiotic course in the infusion center following discharge. Her culture results were positive for MRSA, and she was treated with IV Vancomycin. The patient presented to the ED with a reported 4 day history of left eye swelling. She developed what was described as a 'bump' on her left brow at that time, and presumed an insect bite. She was prescribed steroids by her on-call physician, with symptoms worsening culminating in her ED visit. Evaluation revealed evidence of a leukocytosis, and exam with evidence of erythema and swelling of the periorbital region on the left. CT ruled out Orbital Cellulitis, and ultrasound reportedly showed no evidence of drainable fluid collection. There was reported pain with palpation of the area, as well as pain with movement of the eye but no vision changes. She was referred for admission for further evaluation and treatment. By the morning following admission Ms. Rodriguez's WBC has normalized - however, while the erythema surrounding her orbit looked unchange, the swelling and pain were significantly worse. Vancomycin was initiated in place of Clindamycin, and she was maintained on high dose Ceftriaxone. However, her symptoms continued to worsen prompting broadening of her coverage to include Flagyl, repeat CT with worsening infection (but no orbital involvement), and repeat discussion with ID, Joseho, and ultimately acceptance in transfer to [facility]. However, by the next morning while still edematous and painful, the patient's erythema had regressed substantially, and the infection looked improved. She continues to remain afebrile, nontachycardic, and without a leukocytosis. This morning she appears to be improved again. No overnight events reported. Hospital Course: (1) Preseptal cellulitis: No evidence of Orbital Cellulitis by CT, and despite area of induration no area of abscess by initial CT or ultrasound, or by follow-up CT. Given multiple allergies and intolerance to antibiotics, regimen of IV Clindamycin and Ceftriaxone was chosen. However, as the patient's symptoms were worsening, Clindamycin was discontinued in favor of IV Vancomycin - history of MRSA infection in August with sensititivities not including testing against Clinda. High dose Ceftriaxone was continued, and IV Metronidazole added on 11/09 due to continued worsening symptoms. This plan was discussed with ID at [facility] and agreed upon as best course of action. Repeat CT without orbital cellulitis - does note worsening of the left periorbital cellulitis and potential involvement of the left lacrimal duct, matching worsening symptoms. However, remains afebrile, no leukocytosis, and without signs of systemic toxicity, and with exam appearing vastly improved. Will continue current regimen. Of note - Miss Rodriguez has an intolerance to oral antibiotics, and has required completion of antibiotic course with IV Formulations in the past. For ease of administration, patient will be transitioned to Swing Bed Status. (2) ADHD (attention deficit hyperactivity disorder), inattentive type: Continue Home Methylphenidate. (3) Factor V Leiden mutation: With history of recurrent DVTs. Continue to monitor daily INR, which is subtherapeutic again today - continue therapeutic dosed Enoxaparin, administer additional coumadin dose, and monitor daily INR. (4) Hypothyroidism: On replacement therapy. (5) DVT prophylaxis: On chronic anticoagulation as above. Home Meds and New Rx's Prescriptions: No Action clonazepam 1 mg tablet 1 mg PO TID PRN (Reason: anxiety) Qty: 90 RF: 2 methylphenidate HCl 20 mg tablet 20 mg PO TID MDD 60 mg Qty: 84 RF: 0 hydrocodone-acetaminophen 7.5-325 mg tablet 1 tab PO TID PRN MDD 3 tabs PRN (Reason: pain) Qty: 66 RF: 0 Citracal + Bone Density 1 EACH tablet 1 ea PO BID RF: 0 cyproheptadine 4 MG tablet 4 mg PO HS Qty: 90 RF: 3 ipratropium-albuterol 3 ML solution for nebulization 3 ml Inhalation Q4H PRN MDD 6 times PRNQty: 1 RF: 0 epinephrine [EpiPen 2-Nino] 0.3 MG/0.3 ML auto-injector 0.3 mg IM ONCE Qty: 1 RF: 1 warfarin [Coumadin] 5 MG tablet 0 - 10 mg PO HS PRN 90 Days Qty: 100 RF: 3 triamcinolone acetonide 15 GM cream 0 gm Topical BID PRNQty: 60 RF: 0 levothyroxine [Synthroid] 100 mcg tablet 100 mcg PO QPM Qty: 90 RF: 4 sumatriptan succinate 6 mg/0.5 mL pen injector 6 mg subcut As directed MDD 12 mg Qty: 8 RF: 5 albuterol sulfate [ProAir HFA] 90 mcg/actuation HFA aerosol inhaler 2 puff Inhalation Q6H PRN MDD 6 puffs Qty: 3 RF: 4 Flovent HFA 220 mcg/actuation HFA aerosol inhaler 2 inh Inhalation BID Qty: 3 RF: 4 albuterol sulfate 1.25 mg/3 mL solution for nebulization 1.25 mg Inhalation Q6H PRN (Reason: shortness of breath or wheezing) Qty: 75 RF: 3 topiramate [Topamax] 200 mg tablet 400 mg PO HS Qty: 180 RF: 4 sumatriptan succinate 4 mg/0.5 mL pen injector 4 mg SC Q1-4H PRN (Reason: migraine headache) Qty: 1 RF: 4 fexofenadine 180 mg tablet 180 mg PO DAILY Qty: 90 RF: 4 clotrimazole-betamethasone [Lotrisone] 1-0.05 % cream 1 applic Topical BID Qty: 45 RF: 1 omeprazole 40 mg capsule,delayed release(DR/EC) 40 mg PO DAILY PRN (Reason: GERD) Qty: 90 RF: 4 (DME) Space Chamber Plus 1 EACH spacer 1 ea Miscellaneous Q4H PRN Qty: 1 RF: 0 Narcan 4 MG spray,non-aerosol 4 mg NS DAILY PRN PRNQty: 2 RF: 0 Discharge Instructions Activity:: Activity as Tolerated Equipment/Supplies:: No Equipment Needed Diet:: As Tolerated Exam Narrative Exam Narrative: General: Patient appears more comfortable, AAOX3, NAD HEENT: Left orbital region with surrounding cellulitic changes, however with significant decrease in warmth and erythema, with slight improvement in edema now as well. Erythema now restricted to just the eyelid and brow, regressed since prior exam,. Color is now even senior bookkeeper and less erythematous than before. Still with continued and significant edema surrounding the eye and left face, but also improved. Psych: Normal mood and affect. DS: Data Vitals/I&O Vitals and I&O: Vital Signs Temperature 36.7 C 11/12/18 08:26 Temperature Source Tympanic 11/12/18 08:26 Pulse 68 11/12/18 08:26 Pulse Rhythm Regular 11/12/18 08:50 Respiratory Rate 20 11/12/18 08:26 Respiratory Effort Non-Labored 11/12/18 08:50 Respiratory Depth Normal 11/12/18 08:50 Respiratory Pattern Normal 11/12/18 08:50 Blood Pressure 103/74 11/12/18 08:26 Blood Pressure Position Sitting 11/07/18 06:29 Pulse Oximetry 100 11/12/18 08:26 Oxygen Delivery Method Room Air 11/12/18 08:26 Oxygen Flow Rate 0 11/12/18 08:26 Pain Level 9 11/12/18 10:34 Comment 11/08/18 16:29 Intake & Output 11/11/18 11/12/18 11/12/18 23:59 11:59 23:59 Intake Total 200 / 410 480 / 480 Balance 200 / 410 480 / 480 Intake: IV 200 / 410 Oral 480 / 480 Other: Urine Appearance Clear Comment voids in toilet. Flushed, urine not assessed at this time. Voiding Methods Toilet Completed studies during hospitalization [Text1]: Exam(s) 11/07/[address]:CT orbits w SYMPTOM/DIAGNOSIS: LT ORBIT CELLULITIS, R/O SEPTAL CELLULITIS CT ORBITS: Multiple contiguous axial images of the orbits were obtained following the uneventful administration of intravenous contrast material. Comparison CT head and orbits from 11/10/16 and 11/17/16 were obtained. There is soft tissue swelling, fat stranding and soft tissue enhancement in the left periorbital soft tissues. The soft tissues are otherwise unremarkable. The orbits are intact and unremarkable. The retro-orbital soft tissues have a normal appearance including the optic nerves and extraocular muscles. No focal fluid collection is seen to suggest an abscess. There is mild mucosal thickening in the right maxillary sinus and a possible small right mucous retention cyst or polyp. No fluid levels are seen. The remaining visualized paranasal sinuses are clear. The mastoid air cells are well pneumatized. The bones are intact. IMPRESSION: Left preseptal cellulitis. No evidence of extension to involve the orbits or retro-orbital soft tissues. No abscess is identified. -------- Exam(s) 11/09/[address]:CT orbits w SYMPTOMS/DIAGNOSIS: WORSENING PRESEPTAL CELLULITIS, ? PROGRESSION TO ORBITAL CELLULITIS CT SCAN OF THE ORBITS: CT scan of the orbits was performed following the uneventful administration of intravenous contrast material. Comparison is 11/07/18. There has been an increase in the left periorbital infiltration consistent with progression of the left periorbital cellulitis. No focal fluid collection is seen to suggest an abscess. There is asymmetric enlargement of the left lacrimal gland, which may be due to inflammatory change. The orbits and retroorbital soft tissues are unremarkable. The osseous structures are unremarkable. The visualized paranasal sinuses are clear. No fluid levels are seen. The mastoid air cells are well pneumatized. IMPRESSION: 1. Worsening left periorbital cellulitis. No abscess. 2. Enlargement of the left lacrimal duct, which may be infectious or inflammatory in nature. Labs on day of discharge: Labs from last 24 hours 11/12/18 11/12/18 11/12/18 16:00 07:05 07:05 WBC 7.73 RBC 4.36 Hgb 12.5 Hct 37.8 MCV 86.7 MCH 28.7 MCHC 33.1 RDW 14.3 Plt Count 254 MPV 10.5 Immature Gran % 0.4 Neutrophils % 57.3 Lymphocytes % 27.3 Monocytes % 8.5 Eosinophils % 6.1 Basophils % 0.4 Absolute Neutrophils 4.43 Absolute Lymphocytes 2.11 Absolute Monocytes 0.66 Absolute Eosinophils 0.47 Absolute Basophils 0.03 PT 10.6 INR 1.1 Sodium Potassium Chloride Carbon Dioxide Anion Gap BUN Creatinine Estimated GFR/1.73 m2 Glucose Calcium Magnesium Vancomycin Trough Pending 11/12/18 11/11/18 07:05 16:30 WBC RBC Hgb Hct MCV MCH MCHC RDW Plt Count MPV Immature Gran % Neutrophils % Lymphocytes % Monocytes % Eosinophils % Basophils % Absolute Neutrophils Absolute Lymphocytes Absolute Monocytes Absolute Eosinophils Absolute Basophils PT INR Sodium 140 Potassium 4.1 Chloride 107 Carbon Dioxide 22.7 Anion Gap 10.3 BUN 17 Creatinine 0.83 Estimated GFR/1.73 m2 >= 60.00 Glucose 108 H Calcium 8.8 Magnesium 2.3 Vancomycin Trough 21.1 H* [facility] Medical History ADHD (attention deficit hyperactivity disorder), 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) Asthma (Chronic 11/08/12) B12 deficiency (Chronic) Cannabis abuse with cannabis-induced disorder (Chronic) Chronic anticoagulation (Chronic) Chronic back pain greater than 3 months duration (Chronic 12/29/14) Cyst of fallopian tube (Resolved) Depression (Chronic) Factor V Leiden mutation (Chronic) GERD (gastroesophageal reflux disease) (Chronic) History of DVT (deep vein thrombosis) (Chronic) Hypothyroidism (Chronic) Intractable vomiting with nausea (Acute) Migraine headache (Chronic) Nephrolithiasis (Chronic) Panic disorder (Chronic 03/21/16) Recurrent deep vein thrombosis (DVT) (Chronic) Surgical History Abdominal hysterectomy (~2009) 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) Arthroplasty of knee (~1999) Bilateral salpingectomy with oophorectomy (~2008) Cervical Conization/LEEP Cholecystectomy S/P appendectomy (Acute 12/24/17) THUMB RECONSTRUCTION Social History Smoking/Tobacco Use Status: Never Alcohol Intake: current Alcohol Intake frequency: 0-2 drinks per day Drug use: Daily Substance use type: marijuana Do you feel safe at home: Yes Do you feel safe in your relationship?: Yes Additional Social history: Patient is and with one child. She denies any smoking or significant alcohol use, but admits to regular marijuana use.
[2018-11-12] MEDS: cefTRIAXone 2 GM/50 ML BAG IVPB (13:41)
--- NOTE | 2018-11-12 17:57 | NUR.NOTE ---
Patient changed to swing status, see swing chart. Nursing Note:
[2018-11-12 19:01] LABS: Vancomycin, Trough 20.4 ug/mL (10.0-20.0)
== END 2018-11-12 13:47 | disposition swing bed (61) | DRG 603 ==
LOC: ER 08:10 → MS 09:15
PROVIDERS: Admitting Provider Internal Medicine; Emergency Provider Student in an Organized Health Care Education/Training Program; PCP Family Medicine; Visit Provider Internal Medicine
DX: L03.213 Periorbital cellulitis (principal); D68.51 Activated protein C resistance; F90.0 Attention-deficit hyperactivity disorder, predominantly inattentive type; E03.9 Hypothyroidism, unspecified; Z86.14 Personal history of Methicillin resistant Staphylococcus aureus infection; Z79.01 Long term (current) use of anticoagulants; T45.515A Adverse effect of anticoagulants, initial encounter
CPT/HCPCS: 36415; 36569; 80048; 80053; 94640; 96365; 99222; 99232; 99233; 99239; 99285; 70481; 80202; 83735; 85025; 85610; 85730; 99219; 99225; 99226; G0378; J0696; J1650; J2270; J2405; J2765; J3490

== ENCOUNTER 2018-11-12 13:52 | Inpatient (IN) | payer MEDICAID, SELFPAY ==
--- NOTE | 2018-11-12 13:20 | HPE_ITS ---
ADMISSION NOTE TO SWING-BED 11/12/18 DS: Diagnosis Discharge Diagnosis (1) Preseptal cellulitis: Status: Acute (2) ADHD (attention deficit hyperactivity disorder), inattentive type: Status: Chronic (3) Factor V Leiden mutation: Status: Chronic (4) Hypothyroidism: Status: Chronic (5) DVT prophylaxis: Status: Acute Discharge Plan Disposition Patient Disposition: [facility] SWING BED LEVEL 1 Condition: Stable Discharge Details Chief Complaint: EyeProblem Clinical Impression: Preseptal cellulitis, Supratherapeutic INR Reason For Visit: RIGOBERTO-ORBITAL CELLULITIS Admit Date/Time: 11/10/18 09:59 Admit Provider: Jaya Clarke Attending Provider: Jaya Clarke Primary Care Provider: Jonny Pettit ED Provider: Kobi Powers Hospital Course Hospital Course: Chief Complaint: Facial Swelling HPI: 38-year-old woman with a prior history significant for MRSA infection with abscess requiring hospitalization and drainage last August, admitted from [facility] Emergency Department on 11/07 with a diagnosis of Periorbital Cellulitis. Ms. Rodriguez has a prior history significant for Factor V Leiden with prior DVTs, on chronic anticoagulation with Warfarin, as well as previously noted Intractable vomiting, migraines, ADHD, Anxiety, Asthma, GERD, and Hypothyroidism. She was recently admitted to this facility in August for a a left buttock abscess, and given her multiple antibiotic allergies and intolerance of oral formulations, required completion of antibiotic course in the infusion center following discharge. Her culture results were positive for MRSA, and she was treated with IV Vancomycin. The patient presented to the ED with a reported 4 day history of left eye swelling. She developed what was described as a 'bump' on her left brow at that time, and presumed an insect bite. She was prescribed steroids by her on-call physician, with symptoms worsening culminating in her ED visit. Evaluation revealed evidence of a leukocytosis, and exam with evidence of erythema and swelling of the periorbital region on the left. CT ruled out Orbital Cellulitis, and ultrasound reportedly showed no evidence of drainable fluid collection. There was reported pain with palpation of the area, as well as pain with movement of the eye but no vision changes. She was referred for admission for further evaluation and treatment. By the morning following admission Ms. Rodriguez's WBC has normalized - however, while the erythema surrounding her orbit looked unchanged, the swelling and pain were significantly worse. Vancomycin was initiated in place of Clindamycin, and she was maintained on high dose Ceftriaxone. However, her symptoms continued to worsen prompting broadening of her coverage to include Flagyl, repeat CT with worsening infection (but no orbital involvement), and repeat discussion with ID, Joseho, and ultimately acceptance in transfer to [facility]. However, by the next morning while still edematous and painful, the patient's erythema had regressed substantially, and the infection looked improved. She continues to remain afebrile, nontachycardic, and without a leukocytosis. This morning she appears to be improved again. No overnight events reported. Hospital Course: (1) Preseptal cellulitis: No evidence of Orbital Cellulitis by CT, and despite area of induration no area of abscess by initial CT or ultrasound, or by follow-up CT. Given multiple allergies and intolerance to antibiotics, regimen of IV Clindamycin and Ceftriaxone was chosen. However, as the patient's symptoms were worsening, Clindamycin was discontinued in favor of IV Vancomycin - history of MRSA infection in August with sensitivities not including testing against Clinda. High dose Ceftriaxone was continued, and IV Metronidazole added on 11/09 due to continued worsening symptoms. This plan was discussed with ID at [facility] and agreed upon as best course of action. Repeat CT without orbital cellulitis - does note worsening of the left periorbital cellulitis and potential involvement of the left lacrimal duct, matching worsening symptoms. However, remains afebrile, no leukocytosis, and without signs of systemic toxicity, and with exam appearing vastly improved. Will continue current regimen. Of note - Miss Rodriguez has an intolerance to oral antibiotics, and has required completion of antibiotic course with IV Formulations in the past. For ease of administration, patient will be transitioned to Swing Bed Status. (2) ADHD (attention deficit hyperactivity disorder), inattentive type: Continue Home Methylphenidate. (3) Factor V Leiden mutation: With history of recurrent DVTs. Continue to monitor daily INR, which is subtherapeutic again today - continue therapeutic dosed Enoxaparin, administer additional Coumadin dose, and monitor daily INR. (4) Hypothyroidism: On replacement therapy. (5) DVT prophylaxis: On chronic anticoagulation as above. Home Meds and New Rx's Prescriptions: No Action clonazepam 1 mg tablet 1 mg PO TID PRN (Reason: anxiety) Qty: 90 RF: 2 methylphenidate HCl 20 mg tablet 20 mg PO TID MDD 60 mg Qty: 84 RF: 0 hydrocodone-acetaminophen 7.5-325 mg tablet 1 tab PO TID PRN MDD 3 tabs PRN (Reason: pain) Qty: 66 RF: 0 Citracal + Bone Density 1 EACH tablet 1 ea PO BID RF: 0 cyproheptadine 4 MG tablet 4 mg PO HS Qty: 90 RF: 3 ipratropium-albuterol 3 ML solution for nebulization 3 ml Inhalation Q4H PRN MDD 6 times PRNQty: 1 RF: 0 epinephrine [EpiPen 2-Nino] 0.3 MG/0.3 ML auto-injector 0.3 mg IM ONCE Qty: 1 RF: 1 warfarin [Coumadin] 5 MG tablet 0 - 10 mg PO HS PRN 90 Days Qty: 100 RF: 3 triamcinolone acetonide 15 GM cream 0 gm Topical BID PRNQty: 60 RF: 0 levothyroxine [Synthroid] 100 mcg tablet 100 mcg PO QPM Qty: 90 RF: 4 sumatriptan succinate 6 mg/0.5 mL pen injector 6 mg subcut As directed MDD 12 mg Qty: 8 RF: 5 albuterol sulfate [ProAir HFA] 90 mcg/actuation HFA aerosol inhaler 2 puff Inhalation Q6H PRN MDD 6 puffs Qty: 3 RF: 4 Flovent HFA 220 mcg/actuation HFA aerosol inhaler 2 inh Inhalation BID Qty: 3 RF: 4 albuterol sulfate 1.25 mg/3 mL solution for nebulization 1.25 mg Inhalation Q6H PRN (Reason: shortness of breath or wheezing) Qty: 75 RF: 3 topiramate [Topamax] 200 mg tablet 400 mg PO HS Qty: 180 RF: 4 sumatriptan succinate 4 mg/0.5 mL pen injector 4 mg SC Q1-4H PRN (Reason: migraine headache) Qty: 1 RF: 4 fexofenadine 180 mg tablet 180 mg PO DAILY Qty: 90 RF: 4 clotrimazole-betamethasone [Lotrisone] 1-0.05 % cream 1 applic Topical BID Qty: 45 RF: 1 omeprazole 40 mg capsule,delayed release(DR/EC) 40 mg PO DAILY PRN (Reason: GERD) Qty: 90 RF: 4 (DME) Space Chamber Plus 1 EACH spacer 1 ea Miscellaneous Q4H PRN Qty: 1 RF: 0 Narcan 4 MG spray,non-aerosol 4 mg NS DAILY PRN PRNQty: 2 RF: 0 Discharge Instructions Activity:: Activity as Tolerated Equipment/Supplies:: No Equipment Needed Diet:: As Tolerated Exam Narrative Exam Narrative: General: Patient appears more comfortable, AAOX3, NAD HEENT: Left orbital region with surrounding cellulitic changes, however with significant decrease in warmth and erythema, with slight improvement in edema now as well. Erythema now restricted to just the eyelid and brow, regressed since prior exam,. Color is now even manager diversity and less erythematous than before. Still with continued and significant edema surrounding the eye and left face, but also improved. Psych: Normal mood and affect. DS: Data Vitals/I&O Vitals and I&O: Vital Signs Temperature 36.7 C 11/12/18 08:26 Temperature Source Tympanic 11/12/18 08:26 Pulse 68 11/12/18 08:26 Pulse Rhythm Regular 11/12/18 08:50 Respiratory Rate 20 11/12/18 08:26 Respiratory Effort Non-Labored 11/12/18 08:50 Respiratory Depth Normal 11/12/18 08:50 Respiratory Pattern Normal 11/12/18 08:50 Blood Pressure 103/74 11/12/18 08:26 Blood Pressure Position Sitting 11/07/18 06:29 Pulse Oximetry 100 11/12/18 08:26 Oxygen Delivery Method Room Air 11/12/18 08:26 Oxygen Flow Rate 0 11/12/18 08:26 Pain Level 9 11/12/18 10:34 Comment 11/08/18 16:29 Intake & Output 11/11/18 11/12/18 11/12/18 23:59 11:59 23:59 Intake Total 200 / 410 480 / 480 Balance 200 / 410 480 / 480 Intake: IV 200 / 410 Oral 480 / 480 Other: Urine Appearance Clear Comment voids in toilet. Flushed, urine not assessed at this time. Voiding Methods Toilet Completed studies during hospitalization [Text1]: Exam(s) 11/07/[address]:CT orbits w SYMPTOM/DIAGNOSIS: LT ORBIT CELLULITIS, R/O SEPTAL CELLULITIS CT ORBITS: Multiple contiguous axial images of the orbits were obtained following the uneventful administration of intravenous contrast material. Comparison CT head and orbits from 11/10/16 and 11/17/16 were obtained. There is soft tissue swelling, fat stranding and soft tissue enhancement in the left periorbital soft tissues. The soft tissues are otherwise unremarkable. The orbits are intact and unremarkable. The retro-orbital soft tissues have a normal appearance including the optic nerves and extraocular muscles. No focal fluid collection is seen to suggest an abscess. There is mild mucosal thickening in the right maxillary sinus and a possible small right mucous retention cyst or polyp. No fluid levels are seen. The remaining visualized paranasal sinuses are clear. The mastoid air cells are well pneumatized. The bones are intact. IMPRESSION: Left preseptal cellulitis. No evidence of extension to involve the orbits or retro-orbital soft tissues. No abscess is identified. -------- Exam(s) 11/09/[address]:CT orbits w SYMPTOMS/DIAGNOSIS: WORSENING PRESEPTAL CELLULITIS, ? PROGRESSION TO ORBITAL CELLULITIS CT SCAN OF THE ORBITS: CT scan of the orbits was performed following the uneventful administration of intravenous contrast material. Comparison is 11/07/18. There has been an increase in the left periorbital infiltration consistent with progression of the left periorbital cellulitis. No focal fluid collection is seen to suggest an abscess. There is asymmetric enlargement of the left lacrimal gland, which may be due to inflammatory change. The orbits and retroorbital soft tissues are unremarkable. The osseous structures are unremarkable. The visualized paranasal sinuses are clear. No fluid levels are seen. The mastoid air cells are well pneumatized. IMPRESSION: 1. Worsening left periorbital cellulitis. No abscess. 2. Enlargement of the left lacrimal duct, which may be infectious or inflammatory in nature. Labs on day of discharge: Labs from last 24 hours 11/12/18 11/12/18 11/12/18 16:00 07:05 07:05 WBC 7.73 RBC 4.36 Hgb 12.5 Hct 37.8 MCV 86.7 MCH 28.7 MCHC 33.1 RDW 14.3 Plt Count 254 MPV 10.5 Immature Gran % 0.4 Neutrophils % 57.3 Lymphocytes % 27.3 Monocytes % 8.5 Eosinophils % 6.1 Basophils % 0.4 Absolute Neutrophils 4.43 Absolute Lymphocytes 2.11 Absolute Monocytes 0.66 Absolute Eosinophils 0.47 Absolute Basophils 0.03 PT 10.6 INR 1.1 Sodium Potassium Chloride Carbon Dioxide Anion Gap BUN Creatinine Estimated GFR/1.73 m2 Glucose Calcium Magnesium Vancomycin Trough Pending 11/12/18 11/11/18 07:05 16:30 WBC RBC Hgb Hct MCV MCH MCHC RDW Plt Count MPV Immature Gran % Neutrophils % Lymphocytes % Monocytes % Eosinophils % Basophils % Absolute Neutrophils Absolute Lymphocytes Absolute Monocytes Absolute Eosinophils Absolute Basophils PT INR Sodium 140 Potassium 4.1 Chloride 107 Carbon Dioxide 22.7 Anion Gap 10.3 BUN 17 Creatinine 0.83 Estimated GFR/1.73 m2 >= 60.00 Glucose 108 H Calcium 8.8 Magnesium 2.3 Vancomycin Trough 21.1 H* PFSH Medical History ADHD (attention deficit hyperactivity disorder), 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) Asthma (Chronic 11/08/12) B12 deficiency (Chronic) Cannabis abuse with cannabis-induced disorder (Chronic) Chronic anticoagulation (Chronic) Chronic back pain greater than 3 months duration (Chronic 12/29/14) Cyst of fallopian tube (Resolved) Depression (Chronic) Factor V Leiden mutation (Chronic) GERD (gastroesophageal reflux disease) (Chronic) History of DVT (deep vein thrombosis) (Chronic) Hypothyroidism (Chronic) Intractable vomiting with nausea (Acute) Migraine headache (Chronic) Nephrolithiasis (Chronic) Panic disorder (Chronic 03/21/16) Recurrent deep vein thrombosis (DVT) (Chronic) Surgical History Abdominal hysterectomy (~2009) 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) Arthroplasty of knee (~1999) Bilateral salpingectomy with oophorectomy (~2008) Cervical Conization/LEEP Cholecystectomy S/P appendectomy (Acute 12/24/17) THUMB RECONSTRUCTION Social History Smoking/Tobacco Use Status: Never Alcohol Intake: current Alcohol Intake frequency: 0-2 drinks per day Drug use: Daily Substance use type: marijuana Do you feel safe at home: Yes Do you feel safe in your relationship?: Yes Additional Social history: Patient is and with one child. She denies any smoking or significant alcohol use, but admits to regular marijuana use.
--- NOTE | 2018-11-12 14:10 | CMSA_ITS ---
- If Service Date Differs Date of service: 11/12/18 Time of Service: 14:10 SB Psychosocial/Act.Assessment - Hospital Admission Admission Date: 11/08/18 Admission From:: Home/ED Diagnosis:: Miley orbital cellulitis - Swing Bed Admission Swing Bed Admit Date:: 11/12/18 Swing Bed Level of Care: Level 1/SNF - Social Supports PREVIOUS FUNCTIONAL STATUS/SOCIAL/FAMILY SUPPORTS:: Suzie resides in [facility] with her son Braulio. She is disabled and identifies her support system as her son and sometimes her Mom.Suzie is independent with self care and activities of daily living. Suzie deals with chronic pain though is independent in the community at baseline. - Prior to Admission Living Arrangements/Environment Prior to Admission:: Suzie lives in [place] in an apartment she has two dogs, her son lives with her. She is independent with ADL's and transportation - Education Highest Grade Completed:: 11 is considering obtaining her GED - Work History Employment Status:: Disabled - : No [place]'s Spouse: No - [employer] Active [employer] Member:: No - Advance Directives for Healthcare Advance Directives for Healthcare: Advance Directives Advance Directive Agent: Son Braulio - Interests Hobbies:: Enjoys spirtual activities including cards. - Present Functional Status Physical Abilities:: Within normal limits Cognitive:: Expresses anxiety at times she is engaged and understands her care Communication:: Suzie verbilizes her needs and engages with CM and staff Behavior:: Symptoms of anxiety at times she is able to desculate with support and time out - Medical History PAST MEDICAL HISTORY/PAST SURGICAL HISTORY:: Hx of migraine headaches, Hx of DVT associated with , chronic anticoagulation, nephrolithiasis, recurrent DVT, asthma, GERD, Hypothyroidism, chronic back pain, chonic pelvic pain, panic disorder, anxiety disorder, ADHD, depression. Surgical: CARLO, BSO, cholecystectomy, knee arthroplasty, abdominal hysterectomy, bilateral sapingectomy with oophorectomy, cervical conization/LEEP, left thumb surgery General Health:: fair - Admission Data Reason for Swing Bed Admission:: IV antibioitcs Discharge Plan:: Home with no services once antibioitcs are complete and cellutlitis improves. Assessment: Suzie is alert and engaged she started PT today for edema and this she reports has helped a lot. She is receiving IV antibiotics and will continue until the infection has improved. She appreciates the ability to leave the hospital and return home to her animals and visit. She is appropiate in interactions she does become tearful at times and just needs space to calm down. Suzie will discharge home when she is medically ready. Supervisor Product Inspection: Gemini Rasmussen Date Assessment was completed:: 11/12/18
--- NOTE | 2018-11-12 14:14 | CM.SWINGPC ---
- If Service Date Differs Date of service: 11/12/18 Time of Service: 14:14 Swingbed Plan of Care Plan of care: SWING BED PROGRAM ACTIVITIES/DISCHARGE PLAN OF CARE ACTIVITIES PLAN Date:11/12/18 Identified Need: Individual activity Intervention/Plan:Telephone, Television, Reki, Music therapy, being able to ambulate outside, pet therapy, activity cart. Initials [facility] DISCHARGE PLAN Date:11/12/18 Identified Need: IV antibiotics treat cellulitis Intervention/Plan: IV antibiotics Three times a day. Initials SCAR
[2018-11-12] MEDS: Methylphenidate 10 MG TAB 20 MG PO (15:53)
[2018-11-12 16:20] VITALS: BP 123/96; PULSE 91; RESP 18; TEMP 36.1; O2SAT 100
--- NOTE | 2018-11-12 16:44 | PT.INIE ---
Date of service: 11/12/18 Time of Service: 14:02 PT Notes Inpatient Physical Therapy Evaluation Date: 11/12/2018 Referring Doctor: Ashvin lechuga PT Orders: PT CONSULT: Facial edema Precautions: Fall. Standard. Patient Profile/Admitting Diagnosis: Patient is a 38-year-old female with past medical history significant for Factor V Leiden disorder and is on chronic anticoagulation, ADHD, hypothyroidism, and migraine headache who presented to the ED on 11/07/2018 with a chief complaints of swelling of the left brow that started 2 to 3 days prior to admission. Patient was diagnosed with preseptal/periorbital cellulitis. CT scan x 2 showed no evidence of abscess/septal/orbital cellulitis. Ultrasound demonstrated no evidence of fluid collection. Referral for physical therapy was done in order to address periorbital edema. 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) Asthma (Chronic 11/08/12) B12 deficiency (Chronic) Cannabis abuse with cannabis-induced disorder (Chronic) Chronic anticoagulation (Chronic) Chronic back pain greater than 3 months duration (Chronic 12/29/14) Cyst of fallopian tube (Resolved) Depression (Chronic) Factor V Leiden mutation (Chronic) GERD (gastroesophageal reflux disease) (Chronic) History of DVT (deep vein thrombosis) (Chronic) Hypothyroidism (Chronic) Intractable vomiting with nausea (Acute) Migraine headache (Chronic) Nephrolithiasis (Chronic) Panic disorder (Chronic 03/21/16) Recurrent deep vein thrombosis (DVT) (Chronic) Surgical History Abdominal hysterectomy (~2009) 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) Arthroplasty of knee (~1999) Bilateral salpingectomy with oophorectomy (~2008) Cervical Conization/LEEP Cholecystectomy S/P appendectomy (Acute 12/24/17) THUMB RECONSTRUCTION Social History/Home Situation: Patient lives with son in [place], [place] with her son Braulio. She is independent with all mobility ADL performance without the need for an assistive ambulatory device nor adaptive equipment. Subjective: Patient agreeable to a PT consult. Significant other present during most of the initial evaluation and physical therapy session. Dionna hopes to go home as soon as resolution of symptoms on the left eye is achieved. She reports significant pain with coughing, sneezing as well as palpation of periorbital, temporal, and pre-auricular areas on the left. Objective: General Observation: Periorbital edema on L, intact ocular motility, no pain with eye movements, no proptosis, visual acuity intact but eye opeing is limited due to swelling Mental Status: Alert and oriented x4 Pain: Reported pain on palpation of L periorbital area, L Temporal, and L preauricular areas Palpation: Tone/hypertrophy: Atrophy: None Tenderness/Pain: L eyelid area and adjacent rtemproal area Scars: None ROM: Right Upper Extremity: Shoulder Flexion WFL. Shoulder abduction WFL. Elbow flexion WFL. Wrist flexion WFL. Functional opening and closing of hand WFL. Left Upper Extremity: Shoulder Flexion WFL. Shoulder abduction WFL. Elbow flexion WFL. Wrist flexion WFL. Functional opening and closing of hand WFL. Right Lower Extremity: Hip flexion WFL. Hip abduction WFL. Knee flexion WFL. Ankle dorsiflexion WFL. Ankle plantarflexion WFL. Left Lower Extremity: Hip flexion WFL. Hip abduction WFL. Knee flexion WFL. Ankle dorsiflexion WFL. Ankle plantarflexion WFL. Strength: Right Upper Extremity: Shoulder flexors 5/5. Shoulder abductors 5/5. Elbow flexors 5/5. Elbow extensors 5/5. Legal Activity Adjudicator strong. Left Upper Extremity: Shoulder flexors 5/5. Shoulder abductors 5/5. Elbow flexors 5/5. Elbow extensors 5/5. Legal Activity Adjudicator strong. Right Lower Extremity: Hip flexors 5/5. Hip abductors 5/5. Knee flexors 5/5. Knee extensors 5/5. Ankle dorsiflexors 5/5. Ankle plantarflexors 5/5. Left Lower Extremity:Hip flexors 5/5. Hip abductors 5/5. Knee flexors 5/5. Knee extensors 5/5. Ankle dorsiflexors 5/5. Ankle plantarflexors 5/5. Sensation: Intact as to pain and pressure on bilateral lower extremities. Bed Mobility/Transfers: Rolling independent Supine to sit independent Sit to supine independent Sit to stand independent Stand to sit independent Bed to chair independent Chair to bed independent Gait: Patient is able to tolerate level surface ambulation of up to 300 feet while holding onto IV pole with supervision. Balance: Static Sitting: Normal Dynamic Sitting: Normal Static Standing: Normal Dynamic Standing: Good Special Tests: Mobility Limitations Standardized Measure [facility] AM-PAC 6 clicks Basic Mobility Inpatient Short Form: Raw Score: 22 CMS Score: 21% deficit Informed Consent/Education: Patient instructed in purpose of PT consult and plan of care. Assessment: Patient presents with clinical signs and symptoms consistent with current/admitting diagnoses that have resulted to mobility limitations and gait instability as demonstrated by the following impairment level findings: 1. Impaired standing balance 2. Impaired activity tolerance 3. Decreased ability to focus on an object due to L eyelid edema 4. L periorbital area, L Temporal, and L preauricular areas Impairments are contributing to the following functional limitations: 1. Increase completion time for mobility ADL performance 2. Increased fall risk Patient is assessed as a 47035 moderate complexity based on the following: History: 38-year-old female with preseptal/periorbital cellulitis Examination: Demonstrable impairment in mobility ADL performance resulting from underlying impairments and functional limitations as documented above Presentation:Evolving Decision Makin moderate complexity Goals: Goals X1 week 1. Patient will demonstrate symmetrical periorbital areas with complete resolution of left preseptal edema 2. Independent gait on level surface without an assistive ambulatory device for at least 500 feet 3. Independent with home exercise program 4. Normal dynamic standing balance/tolerance Plan of Care/Treatment Plan: 1-2x/day, 7 days/week x 1 week. Plan of care has been reviewed with the CASINO ASSISTANT MANAGER providing the service under Physical Therapy direction. Initiate Physical Therapy intervention for strengthening, bed mobility, transfers, gait, stairs, balance training, use of assistive device. DISCHARGE RECOMMENDATIONS: May need to continue with periorbital edema management as an outpatient. TREATMENT CODE/TIME: 51029 x30 minutes, 30025 x 32 minutes beginning at 14:02 PM. Thank you very much for this referral. Sandi Morrell PT, DPT Certified Lymphedema Therapist [facility]
--- NOTE | 2018-11-12 17:58 | NUR.NOTE ---
Patient changed to swing status. See acute chart for assessment.Nursing Note:
[2018-11-12] MEDS: MORPHine 10 MG/ML VIAL IVP ×2 (18:10→21:35)
[2018-11-12] MEDS: Normal Saline Flush 10 ML SYR IVP ×2 (18:13→21:36)
[2018-11-12] MEDS: WARFARIN 5 MG, WARFARIN 2.5 MG 7.5 MG PO (19:49)
[2018-11-12] MEDS: Clotrimazole/Betamet Diprop Cream 15 GM TUBE TP (19:49)
[2018-11-12] MEDS: Levothyroxine 100 MCG TAB PO (19:49)
[2018-11-12] MEDS: Mometasone 220 MCG 14 DOSE INHALER 2 PUFF IH (19:50)
[2018-11-12] MEDS: Lactobacillus Acidophilus CAP 1 CAP PO (20:02)
[2018-11-12] MEDS: Albuterol 2.5 MG/3 ML INH SOLN VIAL 1.25 MG UPD (20:25)
[2018-11-12 20:55] VITALS: RESP 1
[2018-11-12] MEDS: Cyproheptadine 4 MG TAB PO (21:35)
[2018-11-12] MEDS: Enoxaparin 60 MG/0.6 ML SYR SC (21:35)
[2018-11-12] MEDS: Topiramate 100 MG TAB 400 MG PO (21:35)
[2018-11-12] MEDS: LORazepam 2 MG/ML VIAL 1 MG IVP (21:53)
[2018-11-12 23:43] VITALS: BP 113/70; PULSE 75; RESP 17; TEMP 37.1; O2SAT 99
[2018-11-13] MEDS: LORazepam 2 MG/ML VIAL 1 MG IVP ×4 (01:22→21:28)
[2018-11-13] MEDS: MORPHine 10 MG/ML VIAL IVP ×5 (01:22→21:28)
[2018-11-13] MEDS: Normal Saline Flush 10 ML SYR IVP ×8 (01:23→21:29)
[2018-11-13 06:03] LABS: Vancomycin, Trough 25.6 ug/mL (10.0-20.0)
[2018-11-13] MEDS: Ondansetron 4 MG/2 ML VIAL IVP (07:53)
[2018-11-13] MEDS: Lactobacillus Acidophilus CAP 1 CAP PO ×2 (07:54→20:54)
[2018-11-13] MEDS: Fexofenadine 180 MG TAB PO (07:55)
[2018-11-13] MEDS: Methylphenidate 10 MG TAB 20 MG PO ×2 (07:55→12:01)
[2018-11-13] MEDS: Enoxaparin 60 MG/0.6 ML SYR SC (10:33)
[2018-11-13] MEDS: Metoclopramide 10 MG/2 ML VIAL IVP (10:34)
[2018-11-13] MEDS: Clotrimazole/Betamet Diprop Cream 15 GM TUBE TP ×2 (10:35→20:52)
[2018-11-13] MEDS: metroNIDAZOLE 500 MG/100 ML BAG 100 MG IVPB ×2 (10:57→20:47)
--- NOTE | 2018-11-13 11:14 | PT.INTREAT ---
Date of service: 11/13/18 Time of Service: 10:33 PT Notes Inpatient Physical Therapy Treatment Note [facility] Date: 11/13/2018 PRECAUTIONS: Standard. SUBJECTIVE: Patient agreeable to PT session. Patient reported accidentally getting hit by her dog's wagging tail in the same left eye while at home which caused some discomfort since she came back to this hospital yesterday evening. OBJECTIVE: Circumferential edema now decreasing and erythema subsiding and lightening up. Inferior periorbital area edema and erythema almost resolved. PAIN: Patient reports mild pain on the left eye caused by the dog's tail incident last night. Patient however, was able to tolerate gentle semicircular motions of this PT's fingers over L eyelid area while doing manual drainage without complaints of undue discomfort. THEREX: Reinforced continuance of gentle eye opening and closing of L eye to tolerance x 10 reps every hour to help mobilize fluid off of periorbital area. ASSESSMENT: Skilled PT intervention for today consisted of manual lymphatic drainage using the neck sequence and L facial sequence with good response. PLAN: Continue with manual lymphatic drainage to achieve established goals per PT IE. TREATMENT CODE/TIME: 9714 0 x 40 minutes beginning at 10:33 AM.
[2018-11-13 11:59] LABS: INR 2.2 (0.9-1.1); Prothrombin Time 22.1 sec (9.3-11.0)
[2018-11-13] MEDS: cefTRIAXone 2 GM/50 ML BAG IVPB (12:01)
[2018-11-13 12:03] LABS: Anion Gap 11.2 mmol/L (3-11); BUN 15 mg/dL (7-18); CO2 21.8 mmol/L (21.0-32.0); CREATININE 0.94 mg/dL (0.55-1.02); Calcium 9.2 mg/dL (8.5-10.1); Chloride 105 mmol/L (98-107); Glucose 91 mg/dL (70-100); Magnesium 2.2 mg/dL (1.8-2.4); Potassium 3.7 mmol/L (3.5-5.1); Sodium 138 mmol/L (136-145)
--- NOTE | 2018-11-13 13:39 | NUR.NOTE ---
Patient's midline IV was wrapped at approximately 12:57 so the patient can leave the building. Wrap initialed. Patient stated I'm just going to take it off. Nursing explained to patient that it is hospital policy to wrap IV sites when patient's leave. Patient unconcerned. Provider questioned nursing about IV wrap, nursing made provider aware the patient has been taking it off. Provider asked nursing to consult with dependency case manager. ancillary services manager therapy aware. Nursing Note:
--- NOTE | 2018-11-13 16:35 | PDOC.CMPRO ---
- If Service Date Differs Date of service: 11/13/18 Time of Service: 16:35 Care Management Progress Note S/O: Suzie was out on pass most of the day. CCRN and staff research scientist expressing concern to providers about Suzie returning from pass repeatedly with IV site unwrapped. CM will discuss risk of infection with Suzie tomorrow. P: Suzie continues to receive IV AB and PT to decrease infection and swelling in vel-orbital area.
--- NOTE | 2018-11-13 18:42 | NUR.NOTE ---
Spoke with patient about keeping midline wrapped for infection and safety purposes. Also alerted patient that a urinalysis needed to be collected per protocol. Patient became angry, stating They think I'm a fucking drug addict. Nursing assured the patient that was not the overall reason, and that this is [facility] policy, and the patient stated she was still going to rip it off I don't care. Nursing explained to the patient that if she continued to do so her swing bed status and ability to leave the building could be revoked, or she could continue to have to do urinalysis. She then stated that she would Just fucking leave. Nursing stated to the patient that was her choice. Urine specimen was collected and sent to lab. Nursing Note:
[2018-11-13 18:55] LABS: *AMPHETAMINES SCREEN URINE Negative (Negative); *BARBITURATES SCREEN URINE Negative (Negative); *BENZODIAZEPINES SCREEN URINE Negative (Negative); Cannabinoids THC POSITIVE (Negative); Cocaine Screen,Urine Negative (Negative); METHADONE URINE SCREEN Negative (Negative); OPIATES URINE SCREEN POSITIVE (Negative)
[2018-11-13 18:56] LABS: Tricyclic Antidepressants POSITIVE (Negative)
[2018-11-13] MEDS: Warfarin 5 MG TAB 10 MG PO (20:33)
[2018-11-13] MEDS: Levothyroxine 100 MCG TAB PO (20:54)
[2018-11-13] MEDS: Cyproheptadine 4 MG TAB PO (21:29)
[2018-11-13] MEDS: Topiramate 100 MG TAB 400 MG PO (21:29)
--- NOTE | 2018-11-14 00:09 | NUR.NOTE ---
Patient was very upset stating she is being treated as if she's a , drunky, because she does not want her arm where the mid- line is to be wrapped each time she is going out. State she had to do a urine testing because she came back with her arm unwrapped, she was also demanding to know what the result of the test was. I informed the patient the result will have to be discussed with the doctor and it was not yet available. She was threatening to leave AMA and demanding that her midline be removed from her arm, she also was refusing her medications at the time.
[2018-11-14] MEDS: Normal Saline Flush 10 ML SYR IVP ×4 (02:02→21:42)
[2018-11-14] MEDS: metroNIDAZOLE 500 MG/100 ML BAG 100 MG IVPB ×3 (02:03→18:09)
[2018-11-14] MEDS: LORazepam 2 MG/ML VIAL 1 MG IVP ×3 (02:16→18:28)
[2018-11-14] MEDS: MORPHine 10 MG/ML VIAL IVP ×3 (02:17→18:29)
[2018-11-14] MEDS: Ondansetron 4 MG/2 ML VIAL IVP ×2 (05:26→20:15)
[2018-11-14 07:59] LABS: Abs Immature Grans 0.01 k/cumm (0.0-0.09); Absolute Basophil Count 0.03 k/cumm (0.0-0.2); Absolute Eosinophil Count 0.42 k/cumm (0.0-0.7); Absolute Lymphocyte Count 1.43 k/cumm (1.2-3.4); Absolute Monocyte Count 0.66 k/cumm (0.11-0.7); Absolute Neutrophil Count 4.24 k/cumm (1.2-6.7); Basophils % 0.4; Eosinophils % 6.2; HCT 38.8 % (36.0-46.0); HGB 13.2 g/dL (12.0-15.5); Immature Grans % 0.1; Lymphocytes % 21.1; Mean Corpuscular Volume 85.3 fL (80-95); Mean Platelet Volume 10.3 fL (8.0-11.0); Monocytes % 9.7; Neutrophils % 62.5; Platelet Count 312 x1000/uL (130-400); RBC 4.55 m/cumm (4.00-5.20); RBC Distribution Width 14.2 % (11.7-14.6); White Blood Cell Count 6.79 k/cumm (4.4-10.8)
[2018-11-14 08:10] LABS: INR 2.5 (0.9-1.1); Prothrombin Time 25.5 sec (9.3-11.0)
[2018-11-14 08:17] LABS: Anion Gap 8.8 mmol/L (3-11); BUN 16 mg/dL (7-18); C-Reactive Protein 0.69 mg/dL (0.0-0.3); CO2 26.2 mmol/L (21.0-32.0); CREATININE 0.91 mg/dL (0.55-1.02); Calcium 9.1 mg/dL (8.5-10.1); Chloride 104 mmol/L (98-107); Glucose 94 mg/dL (70-100); Magnesium 2.1 mg/dL (1.8-2.4); Potassium 3.9 mmol/L (3.5-5.1); Sodium 139 mmol/L (136-145)
[2018-11-14] MEDS: Metoclopramide 10 MG/2 ML VIAL IVP ×2 (09:20→21:40)
[2018-11-14 09:48] VITALS: BP 124/79; PULSE 75; RESP 15; TEMP 37.1; O2SAT 98
[2018-11-14] MEDS: cefTRIAXone 2 GM/50 ML BAG IVPB (11:12)
[2018-11-14] MEDS: Lactobacillus Acidophilus CAP 1 CAP PO ×2 (11:15→19:42)
[2018-11-14] MEDS: Omeprazole 20 MG CAPCR 40 MG PO (11:15)
[2018-11-14] MEDS: Methylphenidate 10 MG TAB 20 MG PO ×2 (11:16→18:09)
[2018-11-14] MEDS: Fexofenadine 180 MG TAB PO (11:16)
--- NOTE | 2018-11-14 16:32 | CMPROGNOTE_ITS ---
- If Service Date Differs Date of service: 11/14/18 Time of Service: 16:32 Care Management Progress Note S/O: Suzie was ambulating in the [place] with a male friend this morning. She seemed to be in good spirits when CM came to see her. She stated that she was frustrated with staff who make me feel like they think I am shooting up drugs in my IV. This was related to concerns that her IV site had evidence of having been unwrapped upon return to the unit after a pass. She stated that she disc ussed this with her nurse Jake and that Jake had found a different way to wrap the site that was much more comfortable. Suzie felt confident that she would be able to leave it alone when out. XAVIER reviewed the dangers of an IV infection and our concerns for her safety and she acknowledged understanding. Jennifer did request a room change to one that had a private bathroom and shower. This request was relayed to the RNCC by XAVIER. Room 216 was vacant and had the options Suzie was requesting. P: Suzie will remain on SB1 status until her course of IV antibiotics is complete or until arrangements can be made to transfer care to the Infusion [facility].
--- NOTE | 2018-11-14 17:45 | NUR.NOTE ---
Nursing Note: pt out on a pass
[2018-11-14] MEDS: Warfarin 5 MG TAB 10 MG PO (19:41)
[2018-11-14] MEDS: Levothyroxine 100 MCG TAB PO (19:41)
[2018-11-14] MEDS: Topiramate 100 MG TAB 400 MG PO (21:39)
[2018-11-14] MEDS: Cyproheptadine 4 MG TAB PO (21:39)
[2018-11-15] MEDS: LORazepam 2 MG/ML VIAL 1 MG IVP ×4 (01:18→22:46)
[2018-11-15] MEDS: MORPHine 10 MG/ML VIAL IVP ×3 (01:18→22:31)
[2018-11-15] MEDS: Normal Saline Flush 10 ML SYR IVP ×7 (01:19→22:47)
[2018-11-15] MEDS: metroNIDAZOLE 500 MG/100 ML BAG 100 MG IVPB ×3 (01:20→18:23)
[2018-11-15] MEDS: Ondansetron 4 MG/2 ML VIAL IVP ×2 (01:36→22:46)
[2018-11-15 06:45] LABS: Vancomycin, Trough 24.7 ug/mL (10.0-20.0)
[2018-11-15] MEDS: Methylphenidate 10 MG TAB 20 MG PO ×3 (07:43→18:01)
[2018-11-15] MEDS: Lactobacillus Acidophilus CAP 1 CAP PO ×3 (07:43→19:58)
[2018-11-15] MEDS: Fexofenadine 180 MG TAB PO (07:43)
[2018-11-15 07:45] VITALS: BP 96/62; PULSE 100; RESP 18; TEMP 36.7; O2SAT 97
[2018-11-15] MEDS: Clotrimazole/Betamet Diprop Cream 15 GM TUBE TP ×2 (09:03→19:45)
[2018-11-15 09:43] LABS: INR 2.6 (0.9-1.1); Prothrombin Time 26.2 sec (9.3-11.0)
[2018-11-15] MEDS: Fluconazole 150 MG TAB PO (11:30)
[2018-11-15] MEDS: cefTRIAXone 2 GM/50 ML BAG IVPB (11:48)
--- NOTE | 2018-11-15 12:10 | PTTR_ITS ---
Date of service: 11/15/18 Time of Service: 11:14 PT Notes Inpatient Physical Therapy Treatment Note [facility] Date: 11/15/2018 PRECAUTIONS: Standard. Increased risk for clotting due to Factor V Leiden Thrombophilia disorder. SUBJECTIVE: Patient agreeable to PT session. Patient reported whitish drainage from left eye beginning yesterday afternoon. OBJECTIVE: Circumferential edema now significantly reduced with erythema consi derably subsiding and lightening up. IV decreased now observable, inferior periorbital area edema and erythema fully resolved. Patient is not able to open left eye 75% without undue discomfort. PAIN: 1/10 on the left eye. Again patient was able to tolerate gentle semicircular motion fingers over the left eyelid area while doing manual drai nage without complaints of discomfort. THEREX: Reinforced continuance of gentle eye opening and closing of L eye to tolerance x 10 reps every hour to help mobilize fluid off of periorbital area. ASSESSMENT: Skilled PT intervention for today consisted of manual lymphatic drainage using the neck sequence and L facial sequence with good response. PLAN: Continue with manual lymphatic drainage to achieve established goals per PT IE. TREATMENT CODE/TIME: 77011 x 23 minutes beginning at 11:14 AM.
--- NOTE | 2018-11-15 15:39 | PHARADMIT ---
Addendum entered by Woodrow Prince III 11/16/18 15:14: Pharmacy Note Subjective MD notes patients eye continues to improve. Planning on discharge home tomorrow Objective VS-OK INR-2.7 Pain:11/27 No BM s noted Assessment Pain meds transitioned to PO. Asmanex DC'd(refuses), patient to bring Own Flovent. Vancomycin trough tomorrow at 1500 if still here. Plan Patient will come in daily (or BID) for IV ABX therapy. Watch INR Addendum entered by Woodrow Prince III 11/15/18 15:41: Pharmacy Note Subjective Swing bed patient with Orbital infection/PRESEPTAL CELLULITIS. Some pus was expressed from orbital area per nursing Objective VS-OK INR-2.6 No other Labs, Assessment Diflucan X1 ordered,repeat dose on 11/18, Rocephin, Flagyl & Vancomycin (Day7) continue.Trough high dose adjusted. On Warfarin. Refuses Asmanex (needs to bring in her own Flovent) Plan Original Note: Admission Pharmacy Clinical Review SWING BED PATIENT WITH PRESEPTAL CELLULTIS below are the acute stay Pharmacy Clinical Interventions. PAPITO NAVARRETECIE Josh Female : 1980 Emr# [id number] 11/09/18 14:44 - Pharmacy Review by [facility] Num: [id number] : 1980 Patient Age: 38 Addendum entered by Woodrow Prince III 11/11/18 13:16: Pharmacy Note Subjective ORBITAL/FACIAL SWELLING HAS DIMINISHED. Hospitalist is in consultation with BOGDAN-id regarding ABX therapy. Objective VS-OK, INR-1.0 Labs-OK Assessment Warfarin must be on constantly. EXTRA DOSE (5MG) given today. Vancomycin trough drawn early 21.1 extrapolates to 19.2) continue same dose. Plan Patient refuses to take PO ABX because of past ADRs which limits MD choices for her care. Addendum entered by Janae Ro 11/10/18 16:36: Pharmacy Note Subjective eye finally starting to look better per morning report Objective VS-okay INR-1.1 Assessment vanco trough came back high at 22.8, dose adjusted to 1 gram Q12H to target a trough of 14.9 vanco (day 3) and ceftriaxone (day 4) continue enoxaparin ordered 60 mg BID until INR improves (was subtherapeutic today) prn morphine dose increased to 4-5 mg Q3h PRN Plan vanco trough ordered for tomorrow, adjust dose if needed watch INR Original Note: Admission Pharmacy Clinical Review Code Status Full Code Current Weight 56.699 kg Renally Cleared and Narrow Therapeutic Index Meds CrCl ~67, meds ok QTc Value / Action Taken N/A BP Control, Fever BP 105/65, afebrile Electrolytes reviewed Na 142, L 3.8, Mg 1.8 DVT Prophylaxis No (warfarin) Opiate Usage / Scheduled Bowel Regimen Ordered PRN, yes Plt/SCr for Heparin / Enoxaparin Plt 190, Scr 0.84 INR for Warfarin 2.2 (down from 6.1 on 11/08) H/H stable, WBC/Bands H/H 34.5/11.3, WBC 8.13 Antibiotic appropriateness Yes -- Vanco + Ceftriaxone Cultures and Sensitivities N/A Surgical ABX d/c within 24 hr N/A DM control / Insulin Dosing N/A Heart Failure (Check EF%) (KACIE's, B-Block, Diuretics) N/A IV to PO Switch Home Meds Reviewed Yes, all ok Home Meds Not Ordered Sumatriptan Comments Clindamycin and ceftriaxone were initially started for preseptal cellulitis but pt's symptoms worsened yesterday and clindamycin was changed to Vanco (hx of JAVIER in August) and Ceftriaxone dose was increased to 2 grams; will transfer to [facility] in case of continued progression and need for opthalmologist; Warfarin was restarted as INR is now therapeutic Initialized on 11/09/18 14:44 - END OF NOTE
[2018-11-15] MEDS: Levothyroxine 100 MCG TAB PO (19:58)
[2018-11-15] MEDS: WARFARIN 5 MG, WARFARIN 2.5 MG 7.5 MG PO (19:58)
[2018-11-15] MEDS: Topiramate 100 MG TAB 400 MG PO (22:30)
[2018-11-15] MEDS: Cyproheptadine 4 MG TAB PO (22:31)
[2018-11-16] MEDS: metroNIDAZOLE 500 MG/100 ML BAG 100 MG IVPB ×2 (02:03→15:26)
[2018-11-16] MEDS: Normal Saline Flush 10 ML SYR IVP ×7 (02:03→22:41)
[2018-11-16] MEDS: MORPHine 10 MG/ML VIAL IVP ×6 (02:17→22:40)
[2018-11-16] MEDS: LORazepam 2 MG/ML VIAL 1 MG IVP ×5 (03:21→22:41)
[2018-11-16 07:35] VITALS: BP 133/88; PULSE 83; RESP 19; TEMP 36.8; O2SAT 97
[2018-11-16 08:22] LABS: INR 2.7 (0.9-1.1)
[2018-11-16] MEDS: Lactobacillus Acidophilus CAP 1 CAP PO ×3 (09:12→20:13)
[2018-11-16] MEDS: Fexofenadine 180 MG TAB PO (09:12)
[2018-11-16] MEDS: Methylphenidate 10 MG TAB 20 MG PO ×2 (09:13→14:13)
[2018-11-16] MEDS: Clotrimazole/Betamet Diprop Cream 15 GM TUBE TP ×2 (10:21→20:14)
[2018-11-16] MEDS: HYDROcodone 10/Acetaminophen 325 TAB PO ×2 (15:37→20:13)
--- NOTE | 2018-11-16 16:12 | PT.INTREAT ---
Date of service: 11/16/18 Time of Service: 15:29 PT Notes Inpatient Physical Therapy Treatment Note [facility] Date: 11/16/2018 PRECAUTIONS: Standard. Increased risk for clotting due to Factor V Leiden Thrombophilia disorder. SUBJECTIVE: Patient agreeable to PT session. Patient reported continued greenish drainage from left eye for two days now. She continues to report discomofrt on the L lateral eyelid area of 8/10 pain. OBJECTIVE: Circumferential edema now significantly reduced by about 50-75% with erythema considerably subsiding and lightening up. Inferior periorbital area edema and erythema fully resolved. Patient is now able to open left eye about 75% to 80% without undue discomfort. PAIN: 1/10 on the left eye. 8/10 on the lateral eyelid of the L eye. Again patient was able to tolerate gentle semicircular motion of this PT's fingers over the left eyelid area while doing manual drainage with verbalization of dicomfort. THEREX: Reinforced continuance of gentle eye opening and closing of L eye to tolerance x 10 reps every hour to help mobilize fluid off of periorbital area. ASSESSMENT: Skilled PT intervention for today consisted of manual lymphatic drainage using the neck sequence and L facial sequence with good response. PLAN: Continue with manual lymphatic drainage to achieve established goals per PT IE. TREATMENT CODE/TIME: 96177 x 36 minutes beginning at 15:29 PM.
--- NOTE | 2018-11-16 18:42 | CMPROGNOTE_ITS ---
- If Service Date Differs Date of service: 11/16/18 Time of Service: 18:43 Care Management Progress Note S/O: CM spoke with patient she wants to go home on outpatient antibiotics. She will need to follow up with Ophthalmology as an outpatient CM sent a referral to [facility] at the patients request. Suzie states she is feeling better however continues to have some eye pain she can now open her eye. She has been leaving the facility to go home and be with her dogs. She did call the CM from home this evening and is asking if she needs to return to the hospital tonXAVIER ortiz reviewed medication times and requested patient return for the next antibiotic dose and 2000 meds and go through the discharge process in the morning if plan is appropriate. Suzie will return this evening for the next antibiotic. P: Suzie will be discharged to home when medically ready plan will be to complete another week of antibiotics through the infusion room.
[2018-11-16] MEDS: Warfarin 5 MG TAB 10 MG PO (20:13)
[2018-11-16] MEDS: Levothyroxine 100 MCG TAB PO (20:14)
[2018-11-16] MEDS: Acetaminophen 325 MG TAB PO (21:30)
[2018-11-16] MEDS: Topiramate 100 MG TAB 400 MG PO (22:39)
[2018-11-16] MEDS: Cyproheptadine 4 MG TAB PO (22:40)
[2018-11-17] MEDS: MORPHine 10 MG/ML VIAL IVP ×3 (00:41→11:32)
[2018-11-17] MEDS: HYDROcodone 10/Acetaminophen 325 TAB PO ×2 (00:42→08:00)
[2018-11-17] MEDS: Normal Saline Flush 10 ML SYR IVP ×4 (00:42→13:45)
[2018-11-17] MEDS: metroNIDAZOLE 500 MG/100 ML BAG 100 MG IVPB (00:50)
[2018-11-17] MEDS: LORazepam 2 MG/ML VIAL 1 MG IVP (04:29)
[2018-11-17 07:30] VITALS: BP 118/75; PULSE 62; RESP 18; TEMP 36.4; O2SAT 99
[2018-11-17] MEDS: Fexofenadine 180 MG TAB PO (08:00)
[2018-11-17] MEDS: Lactobacillus Acidophilus CAP 1 CAP PO ×2 (08:01→13:45)
[2018-11-17] MEDS: Methylphenidate 10 MG TAB 20 MG PO ×2 (08:01→13:44)
[2018-11-17] MEDS: LINEZOLID 600 MG/300 ML BAG 300 MG IVPB (13:45)
--- NOTE | 2018-11-17 15:25 | DSE_ITS ---
Date of service: 11/17/18 Time of Service: 15:26 DS: Diagnosis Discharge Diagnosis (1) Preseptal cellulitis: Status: Acute Asessment and Plan: L eye; wound culture consistent with MRSA (2) Anticoagulated on warfarin: Status: Chronic Asessment and Plan: Target INR 2-3 INR was 2.7 on 11/16/18 (3) Chronic anticoagulation: Status: Acute (4) Factor V Leiden mutation: Status: Chronic (5) History of DVT (deep vein thrombosis): Status: Chronic (6) Hypothyroidism: Status: Chronic (7) Panic disorder: Status: Chronic (8) Chronic back pain greater than 3 months duration: Status: Chronic (9) Vaginal candidiasis: Status: Acute Discharge Plan Disposition Patient Disposition: HOME Condition: Improving Discharge Details Reason For Visit: PRESEPTAL CELLULITIS Admit Date/Time: 11/12/18 13:52 Admit Provider: Jaya Clarke Attending Provider: Jaya Clarke Primary Care Provider: Jonny Pettit [facility] Hospital Course: Ms Rodriguez is a 38 year old female with PMHX of prior MRSA skin infection, as well as history of Factor V Leiden with prior DVT's, on anticoagulation with coumadin, as well as asthma, migraines, hypothyroidism, ADHD, and anxiety/panic d/o, admitted to [facility] on 11/07/18 and transitioned to Swing Bed level 1 status on 11/12/18 for preseptal cellulitis of L eye, now known to be due to MRSA. She received IV clindamycin and rocephin on her 1st day of inpatient admission; antibiotics were changed to vancomycin, ceftriaxone on hospital day 2. Metr onidazole was added due to worsening of symptoms, per recommendation of ID. Her antibiotics are now simplifed to linezolid IV as there is now culture data available from the purulent material draining from the [place]. The patient does not tolerate oral antibiotics, so she can be discharged home with her LUE midline with Q12 hourly infusions of linezolid, which she seems to be tolerating without issue. Based on the rate of the improvement of her cellulitis, it is anticipated that she is going to only need 5 more days of antibiotics. For pain due to her skin infection, I am providing a 3 day prescription of norco 10 mg PO Q4 hrs. After completion of this, she is expected to return to taking her outpatient norco dosing. Finally, for her vaginal candidiasis due to antibiotics, we are prescribing fluconazole, which the patient tolerates. The patient has benefited greatly by working with PT, who is providing manual lymphatic drainage, with visible improvement of symptoms. She is being referred for outpatient physical therapy/[facility] drainage on discharge. She is medically stable for discharge home today. Care for patient on day of discharge as well as preparation of her discharge summary took 45 minutes. Home Meds and New Rx's Prescriptions: New hydrocodone-acetaminophen 10-325 mg Tablet 1 tab PO Q4H PRN PRNQty: 30 RF: 0 linezolid in dextrose 5% [Zyvox] 600 mg/300 mL Piggyback 600 mg IVPB Q12H Qty: 0 RF: 0 acidophilus-pectin, citrus 25 million cell -100 mg Tablet 1 cap PO TID Qty: 90 RF: 0 Continued clonazepam 1 mg tablet 1 mg PO TID PRN (Reason: anxiety) Qty: 90 RF: 2 methylphenidate HCl 20 mg tablet 20 mg PO TID MDD 60 mg Qty: 84 RF: 0 Citracal + Bone Density 1 EACH tablet 1 ea PO BID RF: 0 cyproheptadine 4 MG tablet 4 mg PO HS Qty: 90 RF: 3 ipratropium-albuterol 3 ML solution for nebulization 3 ml Inhalation Q4H PRN MDD 6 times PRNQty: 1 RF: 0 epinephrine [EpiPen 2-Nino] 0.3 MG/0.3 ML auto-injector 0.3 mg IM ONCE Qty: 1 RF: 1 warfarin [Coumadin] 5 MG tablet 0 - 10 mg PO HS PRN 90 Days Qty: 100 RF: 3 triamcinolone acetonide 15 GM cream 0 gm Topical BID PRNQty: 60 RF: 0 levothyroxine [Synthroid] 100 mcg tablet 100 mcg PO QPM Qty: 90 RF: 4 sumatriptan succinate 6 mg/0.5 mL pen injector 6 mg subcut As directed MDD 12 mg Qty: 8 RF: 5 albuterol sulfate [ProAir HFA] 90 mcg/actuation HFA aerosol inhaler 2 puff Inhalation Q6H PRN MDD 6 puffs Qty: 3 RF: 4 Flovent HFA 220 mcg/actuation HFA aerosol inhaler 2 inh Inhalation BID Qty: 3 RF: 4 albuterol sulfate 1.25 mg/3 mL solution for nebulization 1.25 mg Inhalation Q6H PRN (Reason: shortness of breath or wheezing) Qty: 75 RF: 3 topiramate [Topamax] 200 mg tablet 400 mg PO HS Qty: 180 RF: 4 sumatriptan succinate 4 mg/0.5 mL pen injector 4 mg SC Q1-4H PRN (Reason: migraine headache) Qty: 1 RF: 4 fexofenadine 180 mg tablet 180 mg PO DAILY Qty: 90 RF: 4 clotrimazole-betamethasone [Lotrisone] 1-0.05 % cream 1 applic Topical BID Qty: 45 RF: 1 omeprazole 40 mg capsule,delayed release(DR/EC) 40 mg PO DAILY PRN (Reason: GERD) Qty: 90 RF: 4 (DME) Space Chamber Plus 1 EACH spacer 1 ea Miscellaneous Q4H PRN Qty: 1 RF: 0 Narcan 4 MG spray,non-aerosol 4 mg NS DAILY PRN PRNQty: 2 RF: 0 hydrocodone-acetaminophen 7.5-325 mg tablet 1 tab PO TID PRN MDD 3 tabs PRN (Reason: pain) Qty: 66 RF: 0 Changed fluconazole [Diflucan] 150 mg tablet 150 mg PO DAILY Qty: 10 RF: 0 Discharge Instructions Instructions: Linezolid (By mouth), MRSA (Methicillin Resistant Staphylococcus Aureus) (DC) Additional Instructions: Complete your antibiotics as prescribed. Follow up with your PCP and with Dr Day of ophthalmology as prescribed. Continue warm moist compresses to your left eye Q4 hours while awake until resolution of illness. Return to the hospital with any worsening symptoms, fever, bleeding, allergic reaction, chest pain, or shortness of breath. Daily INR while on linezolid/fluconazole. Call your PCP for directions on coumadin dose. Care Plan Goals: Home with follow up with infusion room for infusions of linezolid 600 mg q12 hours x 5 days. Stand Alone Forms: Nursing Discharge Form Referrals: Pilo Klein [ [facility] STAFF PHYSICIAN] - 11/29/18 4:00 pm Bry Day MD [ [facility] STAFF PHYSICIAN] - 11/30/18 1:45 pm Pa [facility], PT [PHYSICAL THERAPIST] - (manual lymph drainage) Activity:: Activity as Tolerated Equipment/Supplies:: No Equipment Needed Diet:: As Tolerated Discharge Orders Discharge Orders: Discharge Order (Routine); Ordered 11/17/18 Ordered By: Loli Conklin Other Ambulatory Orders: Prothrombin Time (DAILY) Timeframe: 20181119 Facility: [facility] - Location: Laboratory Outpatient Ordered By: Loli Conklin Prothrombin Time (DAILY) Timeframe: 20181120 Facility: [facility] - Location: Laboratory Outpatient Ordered By: Loli Conklin Prothrombin Time (DAILY) Timeframe: [id number] Facility: [facility] - Location: Laboratory Outpatient Ordered By: Loli Conklin Prothrombin Time (DAILY) Timeframe: 20181122 Facility: [facility] - Location: Laboratory Outpatient Ordered By: Loli Conklin Prothrombin Time (DAILY) Timeframe: [id number] Facility: [facility] - Location: Laboratory Outpatient Ordered By: Loli Conklin Prothrombin Time (DAILY) Timeframe: [id number] Facility: [facility] - Location: Laboratory Outpatient Ordered By: Loli Conklin Prothrombin Time (DAILY) Timeframe: [id number] Facility: [facility] - Location: Laboratory Outpatient Ordered By: Loli Conklin Exam Narrative Exam Narrative: General: very pleasant, mildly anxious female, A&Ox3 HEENT: EOMI, MMM, left eye open 70% of the way, visible erythema/swelling of upper and lower left eyelids Resp: nonlabored breathing Extremities: LUE midline without any evidence of redness/leaking DS: Data Vitals/I&O Vitals and I&O: Vital Signs Temperature 36.4 C L 11/17/18 07:30 Temperature Source Tympanic 11/17/18 07:30 Pulse 62 11/17/18 07:30 Pulse Rhythm Regular 11/17/18 08:00 Respiratory Rate 18 11/17/18 07:30 Respiratory Effort Non-Labored 11/17/18 08:00 Respiratory Depth Normal 11/17/18 08:00 Respiratory Pattern Normal 11/17/18 08:00 Blood Pressure 118/75 11/17/18 07:30 Pulse Oximetry 99 11/17/18 07:30 Oxygen Delivery Method Room Air 11/17/18 07:30 Oxygen Flow Rate 0 11/17/18 07:30 Pain Level 9 11/17/18 11:32 Comment 11/13/18 23:19 Intake & Output 11/16/18 11/17/18 11/17/18 23:59 11:59 23:59 Intake Total 440 / 740 340 / 580 240 / 580 Balance 440 / 740 340 / 580 240 / 580 Intake: IV 440 / 740 340 / 340 Oral 240 / 240 Other: Comment pt voiding ad laurel in toilet; urine not assessed at this time Voiding Methods Toilet Toilet Completed studies during hospitalization [Text1]: Wound C&S L eyelid drainage: Day 1 Result ISOLATES BELOW DAY 1 GROWTH SCANT GROWTH ISOLATE 1 APPEARANCE Gram Positive Marie ISOLATE 1 ACTION SUSCEPTIBILITY TO FOLLOW This Staphlyococcus aureus isolate is positive for penicillin binding protein 2a (PBP2a) which is a mechanism for a methicillin resistance (MRSA). Labs on day of discharge: Labs from last 24 hours 11/17/18 11/17/18 15:00 05:35 PT Cancelled INR Cancelled Vancomycin Trough Cancelled Preliminary micro results at discharge 11/16/18 00:22 Wound Culture - Preliminary Eyelid - Left Staph aureus, MRSA [facility] Social History Smoking/Tobacco Use Status: Never Alcohol Intake: current Alcohol Intake frequency: 0-2 drinks per day Drug use: Daily Substance use type: marijuana Do you feel safe at home: Yes Do you feel safe in your relationship?: Yes Additional Social history: Patient is and with one child. She denies any smoking or significant alcohol use, but admits to regular marijuana use.
--- NOTE | 2018-11-17 15:36 | PDOC.CMDIS ---
- If Service Date Differs Date of service: 11/17/18 Time of Service: 15:36 LACE Index Scoring Tool - Questions: Length of Stay (in days): 14 or more Acuity (Admit via E.D.?): Yes E.D. Visits: 5 - Answers: Total Score: 14 Risk of Readmission: High Risk Care Management Discharge Reason for Hospitalization: Suzie was admitted to [facility] for periorbital cellulitis and treated with IV antibioitcs. Discharge Plan: Suzie was admitted to [facility] for periorbital cellulitis and treated for antibioitcs. She will continue on IV antibioitcs as outpatient through the infusion room, BID. She will be discharged home with follow up opthamolgist which CM scheduled for 11/30/18 at 1345. Discharge summary was faxed to at [phone] attention Judi. Suzie will also have a prescription to treat pain and yeast. She will continue to have the midline in place at time of discharge. Patient/Family Education Needs: Discharge education, limitations and follow up plan of care including ask me three. Services Needed at Discharge: Infusion Therapy
[2018-11-17] MEDS: Fluconazole 150 MG TAB PO (16:16)
--- NOTE | 2018-11-18 13:19 | INDS_ITS ---
Date of service: 11/18/18 PT Notes Inpatient Physical Therapy Discharge Summary Dates: 11/18/2018 Dates of Service: 11/12/2018 through 11/17/2018 Referring Doctor: Ashvin lechuga PT Orders: PT CONSULT: Facial edema Precautions: Fall. Standard. Patient Profile/Admitting Diagnosis: Patient is a 38-year-old female with past m edical history significant for Factor V Leiden disorder and is on chronic anticoagulation, ADHD, hypothyroidism, and migraine headache who presented to the ED on 11/07/2018 with a chief complaints of swelling of the left brow that started 2 to 3 days prior to admission. Patient was diagnosed with preseptal/periorbital cellulitis. CT scan x 2 showed no evidence of abscess/septal/orbital cellulitis. Ultrasound demonstrated no evidence of fluid collection. Referral for physical therapy was done in order to address periorbital edema. 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) Asthma (Chronic 11/08/12) B12 deficiency (Chronic) Cannabis abuse with cannabis-induced disorder (Chronic) Chronic anticoagulation (Chronic) Chronic back pain greater than 3 months duration (Chronic 12/29/14) Cyst of fallopian tube (Resolved) Depression (Chronic) Factor V Leiden mutation (Chronic) GERD (gastroesophageal reflux disease) (Chronic) History of DVT (deep vein thrombosis) (Chronic) Hypothyroidism (Chronic) Intractable vomiting with nausea (Acute) Migraine headache (Chronic) Nephrolithiasis (Chronic) Panic disorder (Chronic 03/21/16) Recurrent deep vein thrombosis (DVT) (Chronic) Surgical History Abdominal hysterectomy (~2009) 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) Arthroplasty of knee (~1999) Bilateral salpingectomy with oophorectomy (~2008) Cervical Conization/LEEP Cholecystectomy S/P appendectomy (Acute 12/24/17) THUMB RECONSTRUCTION Social History/Home Situation: Patient lives with son in [place], [place] with her son Braulio. She is independent with all mobility ADL performance without the need for an assistive ambulatory device nor adaptive equipment. Subjective: Patient looking forward to going home today. Is thankful of how much reduction in orbital swelling she has achieved. Still reports pain and discomofrt on L eyelid area. Objective: General Observation: Periorbital edema on L, intact ocular motility, no pain with eye movements, no proptosis, visual acuity intact but eye opeing is limited due to swelling Mental Status: Alert and oriented x4 Pain: 6/10 pain on L eyelid area. Palpation: Tone/hypertrophy: None Atrophy: None Tenderness/Pain: L eyelid area and adjacent rtemproal area Scars: None ROM: Right Upper Extremity: Shoulder Flexion WFL. Shoulder abduction WFL. Elbow flexion WFL. Wrist flexion WFL. Functional opening and closing of hand WFL. Left Upper Extremity: Shoulder Flexion WFL. Shoulder abduction WFL. Elbow flexion WFL. Wrist flexion WFL. Functional opening and closing of hand WFL. Right Lower Extremity: Hip flexion WFL. Hip abduction WFL. Knee flexion WFL. Ankle dorsiflexion WFL. Ankle plantarflexion WFL. Left Lower Extremity: Hip flexion WFL. Hip abduction WFL. Knee flexion WFL. Ankle dorsiflexion WFL. Ankle plantarflexion WFL. Strength: Right Upper Extremity: Shoulder flexors 5/5. Shoulder abductors 5/5. Elbow flexors 5/5. Elbow extensors 5/5. Charm Filter Operator Helper strong. Left Upper Extremity: Shoulder flexors 5/5. Shoulder abductors 5/5. Elbow flexors 5/5. Elbow extensors 5/5. Charm Filter Operator Helper strong. Right Lower Extremity: Hip flexors 5/5. Hip abductors 5/5. Knee flexors 5/5. Knee extensors 5/5. Ankle dorsiflexors 5/5. Ankle plantarflexors 5/5. Left Lower Extremity:Hip flexors 5/5. Hip abductors 5/5. Knee flexors 5/5. Knee extensors 5/5. Ankle dorsiflexors 5/5. Ankle plantarflexors 5/5. Sensation: Intact as to pain and pressure on bilateral lower extremities. Bed Mobility/Transfers: Rolling independent Supine to sit independent Sit to supine independent Sit to stand independent Stand to sit independent Bed to chair independent Chair to bed independent Gait: Patient is able to tolerate level surface ambulation of up to 300 feet while holding onto IV pole with supervision. Balance: Static Sitting: Normal Dynamic Sitting: Normal Static Standing: Normal Dynamic Standing: Good Goals: Goals X1 week 1. Patient will demonstrate symmetrical periorbital areas with complete resolution of left preseptal edema NOT MET 2. Independent gait on level surface without an assistive ambulatory device for at least 500 feet MET 3. Independent with home exercise program MET 4. Normal dynamic standing balance/tolerance MET DISCHARGE RECOMMENDATIONS: May need to continue with periorbital edema management as an outpatient. TREATMENT CODE/TIME: 68369 x 36 minutes beginning at 15:29 PM. Thank you very much for this referral. Sandi Morrell PT, DPT Certified Lymphedema Therapist [facility]
== END 2018-11-17 16:25 | disposition home or self-care (01) | DRG 603 ==
PROVIDERS: Admitting Provider Internal Medicine; PCP Family Medicine; Visit Provider Internal Medicine
DX: L03.213 Periorbital cellulitis (principal); D68.51 Activated protein C resistance; Z79.2 Long term (current) use of antibiotics; Z73.89 Other problems related to life management difficulty; Z79.01 Long term (current) use of anticoagulants; B95.62 Methicillin resistant Staphylococcus aureus infection as the cause of diseases classified elsewhere; Z86.718 Personal history of other venous thrombosis and embolism; G89.29 Other chronic pain; B37.3 Candidiasis of vulva and vagina; Z86.14 Personal history of Methicillin resistant Staphylococcus aureus infection; T36.8X5A Adverse effect of other systemic antibiotics, initial encounter; F90.9 Attention-deficit hyperactivity disorder, unspecified type; E03.9 Hypothyroidism, unspecified
CPT/HCPCS: 36415; 80048; 80307; 87077; 97140; 97162; 99316; 80202; 83735; 85025; 85610; 86140; 87070; 87186; 87205; J1650; J2020; J2060; J2270; J2405; J2765; J3490; J7613

== ENCOUNTER 2018-11-17 16:14 | Outpatient (RCR) | payer MEDICAID, SELFPAY | END 2018-11-17 23:59 | disposition home or self-care (01) | LOC: INF 16:14 | PROVIDERS: PCP Family Medicine; Visit Provider Internal Medicine | DX: R69 Illness, unspecified (principal) ==

== ENCOUNTER 2018-11-26 08:48 | Outpatient (CLI) | payer MEDICARE, MEDICAID, SELFPAY ==
[2018-11-26 08:48] LABS: INR 1.5 (0.9-1.1); Prothrombin Time 15.1 sec (9.3-11.0)
== END 2018-11-26 09:08 ==
PROVIDERS: PCP Nurse Practitioner Family; Visit Provider Family Medicine
DX: I82.91 Chronic embolism and thrombosis of unspecified vein (principal); Z79.01 Long term (current) use of anticoagulants
CPT/HCPCS: 36415; 96365; 85610; J2020

== ENCOUNTER 2018-12-01 04:02 | Outpatient (RCR) | payer MEDICARE, MEDICAID, SELFPAY ==
[2018-11-18] MEDS: LINEZOLID 600 MG/300 ML BAG 300 MG IVPB ×2 (08:17→20:09)
[2018-11-18] MEDS: Normal Saline Flush 10 ML SYR IVP ×2 (08:23→20:09)
[2018-11-18 20:11] VITALS: BP 137/90; PULSE 74; RESP 18; TEMP 37.3; O2SAT 98
[2018-11-19] MEDS: LINEZOLID 600 MG/300 ML BAG 300 MG IVPB ×2 (07:58→21:31)
[2018-11-19] MEDS: Normal Saline Flush 10 ML SYR IVP (08:08)
[2018-11-19 19:50] VITALS: BP 129/96; PULSE 90; RESP 20; TEMP 36.8; O2SAT 96
[2018-11-19 19:54] VITALS: BP 129/96; PULSE 90; RESP 20; TEMP 36.8; O2SAT 96
[2018-11-20] MEDS: LINEZOLID 600 MG/300 ML BAG 300 MG IVPB ×2 (07:59→20:00)
[2018-11-20] MEDS: Normal Saline Flush 10 ML SYR IVP (08:00)
[2018-11-20 20:00] VITALS: BP 131/82; PULSE 85; RESP 16; TEMP 36.8; O2SAT 99
[2018-11-21] MEDS: LINEZOLID 600 MG/300 ML BAG 300 MG IVPB ×2 (07:46→20:00)
[2018-11-21] MEDS: Normal Saline Flush 10 ML SYR IVP (07:46)
[2018-11-21 20:03] VITALS: BP 129/84; PULSE 73; RESP 16; TEMP 35.9; O2SAT 100
[2018-11-22] MEDS: LINEZOLID 600 MG/300 ML BAG 300 MG IVPB ×2 (07:38→20:00)
[2018-11-22] MEDS: Normal Saline Flush 10 ML SYR IVP (07:44)
[2018-11-23] MEDS: Normal Saline Flush 10 ML SYR IVP ×2 (08:05→19:52)
[2018-11-23] MEDS: LINEZOLID 600 MG/300 ML BAG 300 MG IVPB ×2 (08:05→19:52)
[2018-11-23 09:59] LABS: Prothrombin Time > 83.4 sec (9.3-11.0)
[2018-11-23] MEDS: Phytonadione 5 MG TABLET 2.5 MG PO (19:52)
[2018-11-24] MEDS: LINEZOLID 600 MG/300 ML BAG 300 MG IVPB ×2 (08:01→19:50)
[2018-11-24] MEDS: Normal Saline Flush 10 ML SYR IVP ×2 (08:01→21:05)
[2018-11-24 08:56] LABS: Prothrombin Time 55.8 sec (9.3-11.0)
[2018-11-24 09:15] LABS: INR 5.5 (0.9-1.1)
[2018-11-24 19:56] VITALS: BP 146/82; PULSE 74; RESP 16; TEMP 36.5; O2SAT 100
[2018-11-25] MEDS: LINEZOLID 600 MG/300 ML BAG 300 MG IVPB ×2 (08:20→20:20)
[2018-11-25 08:39] LABS: INR 1.5 (0.9-1.1); Prothrombin Time 14.6 sec (9.3-11.0)
[2018-11-25 10:06] LABS: Bilirubin Negative (Negative); Blood Trace-lysed (Negative); Clarity Clear (Clear); Glucose Negative (Negative); Ketones Negative (Negative); Leukocyte Esterase Negative (Negative); Nitrite Negative (Negative); Urobilinogen 0.2 EU/dL (Up TO 0.2)
[2018-11-25 10:22] LABS: RBC 0-2 (0-2); WBC 0-2 HPF (0-5)
[2018-11-25 10:23] LABS: Bacteria Few HPF (Negative); C & S Indicated? C&S Done As Ordered; Casts Negative LPF (Negative); Crystals Rare Calcium Oxalate HPF (Negative); Epithelial Cells Moderate HPF (Negative); Mucus Negative (Negative); Other Cells Few Renal (Negative)
[2018-11-25 20:28] VITALS: BP 130/87; PULSE 78; RESP 16; TEMP 37; O2SAT 97
[2018-11-26] MEDS: LINEZOLID 600 MG/300 ML BAG 300 MG IVPB ×2 (08:10→20:05)
[2018-11-26] MEDS: Normal Saline Flush 10 ML SYR IVP (09:18)
[2018-11-27] MEDS: LINEZOLID 600 MG/300 ML BAG 300 MG IVPB ×2 (08:30→20:05)
[2018-11-27] MEDS: Normal Saline Flush 10 ML SYR IVP (08:54)
[2018-11-27 20:45] VITALS: BP 138/85; PULSE 53; RESP 18; TEMP 36.7; O2SAT 100
[2018-11-28] MEDS: Normal Saline Flush 10 ML SYR IVP (08:00)
[2018-11-28] MEDS: LINEZOLID 600 MG/300 ML BAG 300 MG IVPB ×2 (08:02→20:05)
[2018-11-29] MEDS: Normal Saline Flush 10 ML SYR IVP (07:56)
[2018-11-29] MEDS: LINEZOLID 600 MG/300 ML BAG 300 MG IVPB ×2 (07:56→20:25)
[2018-11-29 20:10] VITALS: BP 125/82; PULSE 59; RESP 16; TEMP 36.5; O2SAT 100
[2018-11-30] MEDS: LINEZOLID 600 MG/300 ML BAG 300 MG IVPB ×2 (08:04→20:05)
[2018-11-30] MEDS: Normal Saline Flush 10 ML SYR IVP (08:04)
[2018-11-30 09:10] LABS: Prothrombin Time 80.2 sec (9.3-11.0)
[2018-11-30 09:29] LABS: INR 7.9 (0.9-1.1)
[2018-11-30 19:50] VITALS: BP 136/75; PULSE 74; RESP 16; TEMP 36.6; O2SAT 98
[2018-12-01] MEDS: Normal Saline Flush 10 ML SYR IVP (07:50)
[2018-12-01] MEDS: LINEZOLID 600 MG/300 ML BAG 300 MG IVPB ×2 (07:50→19:50)
--- NOTE | 2018-12-01 08:51 | CMPROGNOTE_ITS ---
Care Management Progress Note CM met with Suzie to review Ophthalmology follow up. Suzie had been directed at discharge to see Dr. Day who than referred Suzie to [facility]. Care Management pushed the referral to [facility] for follow up. Khadijah at [facility] reported calling Suzie, though Suzie understood at that time that she was to see Dr. Day. XAVIER reviewed this with Suzie and apologized for lack of communication. CM spoke with Khadijah and offered two appointments times at [facility]. 12/01/18@1244 and 12/02/18@0845. Suzie reported these appointment times were not feasible. CM provided contact information for Suzie to self schedule with Khadijah and also spoke with Khadijah and notified that Suzie would be calling her directly. [facility] [id number] P#[phone] F#[phone] [address] [place] [address]
--- NOTE | 2018-12-01 08:51 | PDOC.CMPRO ---
Care Management Progress Note CM met with Suzie to review Ophthalmology follow up. Suzie had been directed at discharge to see Dr. Day who than referred Suzie to [facility]. Care Management pushed the referral to [facility] for follow up. Khadijah at [facility] reported calling Suzie, though Suzie understood at that time that she was to see Dr. Day. XAVIER reviewed this with Suzie and apologized for lack of communication. CM spoke with Khadijah and offered two appointments times at [facility]. 12/01/18@1249 and 12/02/18@0845. Suzie reported these appointment times were not feasible. CM provided contact information for Suzie to self schedule with Khadijah and also spoke with Khadijah and notified that Suzie would be calling her directly. [facility] [id number] P#[phone] F#[phone] [address] [place] [address]
== END 2018-12-18 23:59 | disposition home or self-care (01) ==
LOC: INF 04:02
PROVIDERS: Family Medicine; PCP Nurse Practitioner Family; Visit Provider Internal Medicine
DX: Z79.01 Long term (current) use of anticoagulants; L03.213 Periorbital cellulitis; B95.62 Methicillin resistant Staphylococcus aureus infection as the cause of diseases classified elsewhere; Z86.718 Personal history of other venous thrombosis and embolism
CPT/HCPCS: 36415; 96365; 96366; 81003; 81015; 85610; 87086; J2020

== ENCOUNTER 2018-12-09 09:42 | Outpatient (CLI) | payer MEDICARE, MEDICAID, SELFPAY ==
[2018-12-09 14:45] LABS: INR 3.2 (0.9-1.1); Prothrombin Time 32.1 sec (9.3-11.0)
== END 2018-12-09 10:02 ==
PROVIDERS: PCP Nurse Practitioner Family; Visit Provider Family Medicine
DX: I82.91 Chronic embolism and thrombosis of unspecified vein (principal); Z79.01 Long term (current) use of anticoagulants
CPT/HCPCS: 36415; 85610

== ENCOUNTER 2018-12-24 11:26 | Outpatient (CLI) | payer MEDICARE, MEDICAID, SELFPAY ==
[2018-12-24 12:47] LABS: INR 1.7 (0.9-1.1); Prothrombin Time 16.8 sec (9.3-11.0)
== END 2018-12-24 11:46 ==
PROVIDERS: PCP Family Medicine; Visit Provider Family Medicine
DX: Z79.01 Long term (current) use of anticoagulants (principal); Z86.718 Personal history of other venous thrombosis and embolism; R69 Illness, unspecified
CPT/HCPCS: 36415; 85610

== ENCOUNTER 2019-01-04 01:23 | Outpatient (CLI) | payer MEDICARE, MEDICAID, SELFPAY ==
[2019-01-04 11:06] LABS: INR 1.1 (0.9-1.1)
== END 2019-01-04 01:43 ==
PROVIDERS: PCP Family Medicine; Visit Provider Family Medicine
DX: I82.91 Chronic embolism and thrombosis of unspecified vein (principal); Z79.01 Long term (current) use of anticoagulants
CPT/HCPCS: 36415; 85610

== ENCOUNTER 2019-01-27 11:00 | Outpatient (CLI) | payer MEDICARE, MEDICAID, SELFPAY ==
[2019-01-27 12:18] LABS: INR 1.6 (0.9-1.1)
== END 2019-01-27 11:20 ==
PROVIDERS: PCP Family Medicine; Visit Provider Family Medicine
DX: I82.91 Chronic embolism and thrombosis of unspecified vein (principal); Z79.01 Long term (current) use of anticoagulants
CPT/HCPCS: 36415; 85610

== ENCOUNTER 2019-07-01 02:12 | Outpatient (CLI) | payer MEDICARE, MEDICAID, SELFPAY ==
--- NOTE | 2019-07-01 12:45 | DI.CT_ITS ---
EXAM: CT ORBITS W CLINICAL HISTORY: PERSISTENT SWELLING AND PAIN LEFT ORBIT, H05.012. TECHNIQUE: Imaging Protocol: Axial computed tomography images with coronal and sagittal reformatted images were created and reviewed CONTRAST MATERIAL: Intravenous: Omnipaque 350 Contrast volume:100 mL contrast route:IV - Oral: no COMPARISON: CT orbits w from 11/09/2018 FINDINGS: Globes: The anterior and posterior chambers are intact. Optic Nerves: Grossly unremarkable. Extraocular muscles: Normal. Retrobulbar fat: Normal. Orbital leone: No definite fracture is noted. Sinuses: Mild mucosal thickening in a few ethmoid air cells. Mild mucosal thickening in the maxillar y sinuses bilaterally. No fluid levels are seen. Soft Tissues: Mild soft tissue swelling in the left periorbital region. No abscess is identified. IMPRESSION: Mild left periorbital soft tissue swelling. The findings have significantly improved compared to the prior examination from 11/09/2018. No abscess is identified. RADIATION DOSE DELIVERED: DATA REPOSITORY: All CT scans at this facility are submitted to the National Radiology Data Registry (NRDR) Dose Index Registry (DIR) with the [employer] ([employer]). RADIATION OPTIMIZATION: All CT scans at this facility use at least one of these dose optimization te chniques: automated exposure control; mA and/or kV adjustment per patient size (includes targeted exa ms where dose is matched to clinical indication); or iterative reconstruction.
[2019-07-01] MEDS: Omnipaque 350 MG/ML 100 ML BTL IJ (13:41)
== END 2019-07-01 02:32 ==
PROVIDERS: PCP Family Medicine; Visit Provider Family Medicine
DX: H05.012 Cellulitis of left orbit (principal); H57.12 Ocular pain, left eye; H05.222 Edema of left orbit
CPT/HCPCS: 70481; J3490

== ENCOUNTER 2019-09-16 21:16 | Emergency (ER) | payer MEDICARE, MEDICAID, SELFPAY ==
[2019-09-16 21:22] VITALS: BP 142/62; PULSE 59; RESP 14; TEMP 36.4; O2SAT 100
--- NOTE | 2019-09-16 21:45 | DI.CT_ITS ---
EXAM: CT HEAD WO CLINICAL HISTORY: Migraine headache on blood thinners. TECHNIQUE: Imaging Protocol: Axial computed tomography images with coronal and sagittal reformatted images were created and reviewed COMPARISON: CT CT ORBITS W from 07/01/2019 FINDINGS: The ventricular system is normal in appearance. No evidence of acute intracranial hemorrhage, mass effect, or midline shift. The orbital structures are unremarkable. The temporal bone structures appear intact. Calvarium: Normal. Visualized Paranasal sinuses/Mastoids: Clear. IMPRESSION: Normal cranial CT. RADIATION DOSE DELIVERED: 678.86mGy.cm Total DLP DATA REPOSITORY: All CT scans at this facility are submitted to the National Radiology Data Registry (NRDR) Dose Index Registry (DIR) with the [employer] (A[employer]). RADIATION OPTIMIZATION: All CT scans at this facility use at least one of these dose optimization te chniques: automated exposure control; mA and/or kV adjustment per patient size (includes targeted exa ms where dose is matched to clinical indication); or iterative reconstruction.
--- NOTE | 2019-09-16 21:59 | ED.GENADUL_ITS ---
Discharge Plan Disposition Patient Disposition: HOME Condition: Stable Discharge Details Chief Complaint: Headache Clinical Impression: Headache Primary Care Provider: Mikayla Reagan ED Provider: Nguyen Jiang Home Meds and New Rx's Prescriptions: New promethazine 6.25 mg/5 mL syrup 12.5 mg PO TID PRN (Reason: nausea and vomiting) 7 Days Qty: 473 RF: 0 Continued fluconazole [Diflucan] 150 mg tablet 150 mg PO Q72H Qty: 10 RF: 0 methylphenidate HCl 20 mg tablet 20 mg PO TID MDD 60 mg Qty: 84 RF: 0 valacyclovir 1 gram tablet 1,000 mg PO TID Qty: 35 RF: 0 levothyroxine [Synthroid] 100 mcg tablet 100 mcg PO QPM Qty: 90 RF: 4 hydrocodone-acetaminophen 7.5-325 mg tablet 1 tab PO BID MDD 2 tabs PRN (Reason: pain) Qty: 60 RF: 0 prednisone 10 mg tablet See Rx Instructions .Route .COMPLEX Qty: 63 RF: 0 promethazine-codeine 6.25-10 mg/5 mL syrup 5 ml PO HS PRN (Reason: cough) Qty: 118 RF: 0 methylprednisolone [Medrol (Nino)] 4 mg tablets,dose pack See Rx Instructions PO PER PKG DIR Qty: 21 RF: 0 Citracal Plus Bone Density 1 EACH tablet 1 ea PO BID RF: 0 cyproheptadine 4 MG tablet 4 mg PO HS Qty: 90 RF: 3 ipratropium-albuterol 3 ML solution for nebulization 3 ml Inhalation Q4H PRN MDD 6 times PRNQty: 1 RF: 0 topiramate [Topamax] 200 mg tablet 400 mg PO HS Qty: 180 RF: 4 fexofenadine 180 mg tablet 180 mg PO DAILY Qty: 90 RF: 4 warfarin [Coumadin] 5 mg tablet 0 - 10 mg PO HS PRN 90 Days Qty: 100 RF: 3 albuterol sulfate [ProAir HFA] 90 mcg/actuation HFA aerosol inhaler 2 puff Inhalation Q6H PRN MDD 6 puffs Qty: 3 RF: 4 albuterol sulfate 1.25 mg/3 mL solution for nebulization 1.25 mg Inhalation Q6H PRN (Reason: shortness of breath or wheezing) Qty: 75 RF: 3 Flovent HFA 220 mcg/actuation HFA aerosol inhaler 2 inh Inhalation BID Qty: 3 RF: 4 mupirocin 2 % ointment 1 applic TP BID Qty: 22 RF: 0 epinephrine [EpiPen 2-Nino] 0.3 mg/0.3 mL auto-injector 0.3 mg IM ONCE Qty: 1 RF: 1 acidophilus-pectin, citrus 25 million cell -100 mg tablet 2 tab PO TID Qty: 90 RF: 4 alcohol swabs [Alcohol Wipes] Pads, Medicated See Rx Instructions TP .COMPLEX Qty: 300 RF: 4 clonazepam 1 mg tablet 1 mg PO TID PRN (Reason: anxiety) Qty: 90 RF: 2 clotrimazole-betamethasone [Lotrisone] 1-0.05 % cream 1 applic Topical BID Qty: 45 RF: 1 sumatriptan succinate 4 mg/0.5 mL pen injector 4 mg SC Q1-4H PRN (Reason: migraine headache) Qty: 1 RF: 4 triamcinolone acetonide 0.1 % cream 1 applic Topical BID PRN (Reason: eczema) Qty: 60 RF: 1 omeprazole 40 mg capsule,delayed release(DR/EC) 40 mg PO DAILY PRN (Reason: GERD) Qty: 90 RF: 4 sumatriptan succinate 6 mg/0.5 mL pen injector 6 mg subcut As directed MDD 12 mg Qty: 8 RF: 5 (DME) Space Chamber Plus 1 EACH spacer 1 ea Miscellaneous Q4H PRN Qty: 1 RF: 0 Narcan 4 MG spray,non-aerosol 4 mg NS DAILY PRN PRNQty: 2 RF: 0 Discharge Instructions Instructions: General Headache (ED) Additional Instructions: Follow up with primary care provider in 3-5 days. Return to ED sooner if any worsening or concerns. Increase oral fluids. Please take Tylenol or Ibuprofen with food every 4-6 hours as needed for pain and swelling. Take medications as directed. Increase oral fluids return for any worsening or concerns. Your head CT was within normal limits. Referrals: Mikayla Reagan NP [Primary Care Provider] - Medical Decision Making 39-year-old female with a history of factor V Leiden and migraines presents to the ED with migraine headache which began this morning. Associated symptoms include nausea vomiting, photosensitivity and sensitivity to sound. She states that her pain is all over her head and is severe to moderate. She has taken her Topamax and sumatriptan x2 without any relief. She is neurologically intact, no facial droop, no focal neuro deficits. Pupils are PERRLA. 2203: Head CT without contrast ordered due to last head CT in 2017 and the fact that she is on blood thinners with clotting disorder. Would rule out CVA versus hemorrhagic stroke. 2301: Patient reevaluated, still complaining of headache, and nausea. Phenergan order placed and Toradol 30 mg IV push. Patient is received 1 L of normal saline. Head CT is within normal limits no acute intracranial process. Expected disposition is discharged home after control of patient's pain. COMPARISON: CT HEAD WITHOUT CONTRAST 11/17/2016 12:27 PM FINDINGS: Brain: Cerebral sulci show bilateral symmetry with no supratentorial mass or mass effect detected. Brainstem and cerebellum are normal in appearance. No significant foci of abnorm al increased or decreased attenuation are seen within the brain parenchyma. There is no evidence of acute intracranial hemorrhage. Ventricles: Ventricular and cisternal spaces are normal in size and c onfiguration and there is no midline shift or hydrocephalus seen. Bones/joints: Bony calvarium and skull base are intact and no acute fractures are detected. Sinuses: Paranasal sinuses are clear throughout and their bony margins are intact at the levels imaged. Mastoid air cells: Normally pneumatized and clear bilaterally. Soft tissues: Unremarkable. IMPRESSION: Unremarkable noncontrast head CT with no evidence of an acute intracranial process. Patient given Phenergan and 30 mg Toradol IV patient is sleeping upon reevaluation. Plan is to discharge patient home with a prescription of Phenerga n and instructions to follow-up with PCP. This text was generated using [employer] system, please disregard any oddities of phrase or misspellings. HPI General Mode of arrival: wheelchair . Date/Time Provider Initiated Documentation: 09/16/19 21:18 . Limitations to Documentation: no limitations . Information obtained by: patient . HPI Narrative: 39-year-old female with a history of factor V Leiden and migraines presents to the ED with migraine headache which began this morning. Associated symptoms include nausea vomiting, photosensitivity and sensitivity to sound. She states that her pain is all over her head and is severe to moderate. She has taken her Topamax and sumatriptan x2 without any relief. She is neurologically intact, no facial droop, no focal neuro deficits. Pupils are PERRLA. Related Data Home Medications Medication Instructions Recorded Confirmed Citracal Plus Bone Density 1 ea PO BID tab-cap 11/09/12 09/16/19 Space Chamber Plus #1 spacer 05/01/14 09/16/19 cyproheptadine 4 mg PO HS #90 tab-cap 06/04/16 09/16/19 Narcan 4 mg NS DAILY PRN PRN #2 spray 12/08/16 09/16/19 ipratropium-albuterol 3 ml INHALATION Q4H PRN PRN #1 box 01/23/17 09/16/19 MDD 6 times Topamax 200 mg tablet 400 mg PO HS #180 tab NS 06/08/18 09/16/19 fexofenadine 180 mg tablet 180 mg PO DAILY #90 tab-cap 09/23/18 09/16/19 fluconazole 150 mg tablet 150 mg PO Q72H #10 tab 11/22/18 09/16/19 methylphenidate HCl 20 mg tablet 20 mg PO TID #84 tab-cap MDD 60 mg 12/24/18 09/16/19 warfarin 5 mg tablet 0 - 10 mg PO HS PRN 90 Days #100 12/31/18 09/16/19 tab-cap albuterol sulfate 1.25 mg/3 mL 1.25 mg INHALATION Q6H PRN #75 ml 01/12/19 09/16/19 solution for nebulization albuterol sulfate 90 mcg/actuation 2 puff INHALATION Q6H PRN #3 01/12/19 09/16/19 aerosol inhaler inhaler MDD 6 puffs fluticasone propionate 220 2 inh INHALATION BID #3 inhaler 01/12/19 09/16/19 mcg/actuation HFA aerosol inhaler mupirocin 2 % topical ointment 1 applic TP BID #22 gm 01/12/19 09/16/19 epinephrine 0.3 mg/0.3 mL 0.3 mg IM ONCE #1 ea 01/27/19 09/16/19 injection, auto-injector acidophilus 25 million 2 tab PO TID #90 tab 05/29/19 09/16/19 cell-pectin, citrus 100 mg tablet hydrocodone 7.5 mg-acetaminophen 1 tab PO BID PRN #60 tab MDD 2 tabs 06/24/19 325 mg tablet levothyroxine 100 mcg tablet 100 mcg PO QPM #90 tab 06/24/19 09/16/19 valacyclovir 1 gram tablet 1,000 mg PO TID #35 tab 06/24/19 09/16/19 alcohol swabs See Rx Instructions TP .COMPLEX 07/11/19 09/16/19 #300 each clonazepam 1 mg tablet 1 mg PO TID PRN #90 tab 08/15/19 09/16/19 clotrimazole-betamethasone 1 1 applic TOPICAL BID #45 gm 08/15/19 09/16/19 %-0.05 % topical cream prednisone 10 mg tablet See Rx Instructions .ROUTE 08/16/19 09/16/19 .COMPLEX #63 tab promethazine 6.25 mg-codeine 10 5 ml PO HS PRN #118 ml 08/16/19 09/16/19 mg/5 mL syrup sumatriptan succinate 4 mg/0.5 mL 4 mg SC Q1-4H PRN #1 ml 08/17/19 09/16/19 subcutaneous pen injector triamcinolone acetonide 0.1 % 1 applic TOPICAL BID PRN #60 gm 09/05/19 09/16/19 topical cream omeprazole 40 mg capsule,delayed 40 mg PO DAILY PRN #90 cap 09/09/19 09/16/19 release sumatriptan succinate 6 mg/0.5 mL 6 mg SUBCUT As directed #8 pen MDD 09/09/19 09/16/19 subcutaneous pen injector 12 mg methylprednisolone 4 mg tablets in See Rx Instructions PO PER PKG DIR 09/15/19 09/16/19 a dose pack #21 dose pk promethazine 12.5 mg PO TID PRN 7 Days #473 ml 09/16/19 Previous Rx's Medication Instructions Recorded Space Chamber Plus #1 spacer 05/01/14 Narcan 4 mg NS DAILY PRN PRN #2 spray 12/08/16 Topamax 200 mg tablet 400 mg PO HS #180 tab NS 06/08/18 fexofenadine 180 mg tablet 180 mg PO DAILY #90 tab-cap 09/23/18 fluconazole 150 mg tablet 150 mg PO Q72H #10 tab 11/22/18 methylphenidate HCl 20 mg tablet 20 mg PO TID #84 tab-cap MDD 60 mg 12/24/18 warfarin 5 mg tablet 0 - 10 mg PO HS PRN 90 Days #100 12/31/18 tab-cap albuterol sulfate 1.25 mg/3 mL 1.25 mg INHALATION Q6H PRN #75 ml 01/12/19 solution for nebulization albuterol sulfate 90 mcg/actuation 2 puff INHALATION Q6H PRN #3 01/12/19 aerosol inhaler inhaler MDD 6 puffs fluticasone propionate 220 2 inh INHALATION BID #3 inhaler 01/12/19 mcg/actuation HFA aerosol inhaler mupirocin 2 % topical ointment 1 applic TP BID #22 gm 01/12/19 epinephrine 0.3 mg/0.3 mL 0.3 mg IM ONCE #1 ea 01/27/19 injection, auto-injector acidophilus 25 million 2 tab PO TID #90 tab 05/29/19 cell-pectin, citrus 100 mg tablet hydrocodone 7.5 mg-acetaminophen 1 tab PO BID PRN #60 tab MDD 2 tabs 06/24/19 325 mg tablet levothyroxine 100 mcg tablet 100 mcg PO QPM #90 tab 06/24/19 valacyclovir 1 gram tablet 1,000 mg PO TID #35 tab 06/24/19 alcohol swabs See Rx Instructions TP .COMPLEX 07/11/19 #300 each clonazepam 1 mg tablet 1 mg PO TID PRN #90 tab 08/15/19 clotrimazole-betamethasone 1 1 applic TOPICAL BID #45 gm 08/15/19 %-0.05 % topical cream prednisone 10 mg tablet See Rx Instructions .ROUTE 08/16/19 .COMPLEX #63 tab promethazine 6.25 mg-codeine 10 5 ml PO HS PRN #118 ml 08/16/19 mg/5 mL syrup sumatriptan succinate 4 mg/0.5 mL 4 mg SC Q1-4H PRN #1 ml 08/17/19 subcutaneous pen injector triamcinolone acetonide 0.1 % 1 applic TOPICAL BID PRN #60 gm 09/05/19 topical cream omeprazole 40 mg capsule,delayed 40 mg PO DAILY PRN #90 cap 09/09/19 release sumatriptan succinate 6 mg/0.5 mL 6 mg SUBCUT As directed #8 pen MDD 09/09/19 subcutaneous pen injector 12 mg methylprednisolone 4 mg tablets in See Rx Instructions PO PER PKG DIR 09/15/19 a dose pack #21 dose pk promethazine 12.5 mg PO TID PRN 7 Days #473 ml 09/16/19 Allergies Allergy/AdvReac Type Severity Reaction Status Date / Time aripiprazole [From Abilify] Allergy Severe Rash, hives Verified 09/16/19 21:36 doxycycline Allergy Severe Anaphylaxsi Verified 09/16/19 21:36 s levetiracetam [From Keppra] Allergy Severe RASH/HIVES Verified 09/16/19 21:36 sulfamethoxazole Allergy Severe Hives Verified 09/16/19 21:36 venom-honey bee Allergy Severe unknown Verified 09/16/19 21:36 Penicillins Allergy Intermediate Skin Rash Verified 09/16/19 21:36 chlorhexidine Allergy Unknown unknown Verified 09/16/19 21:36 Sulfa (Sulfonamide Allergy Verified 09/16/19 21:36 Antibiotics) mold AdvReac Severe Wheezing Verified 09/16/19 21:36 oxycodone [Oxycodone] AdvReac Severe vomits Verified 09/16/19 21:36 paroxetine AdvReac Severe Irritability Verified 09/16/19 21:36 and anger dicloxacillin [Dicloxacillin] AdvReac Mild Nausea Verified 09/16/19 21:36 gabapentin AdvReac Mild hives Verified 09/16/19 21:36 prednisone AdvReac Agitation Verified 09/16/19 21:36 trazodone AdvReac shortness Verified 09/16/19 21:36 of breath verapamil [Verapamil] AdvReac Worsening Verified 09/16/19 21:36 migraine nuts Allergy Severe Anaphylaxsi Uncoded 09/16/19 21:36 s General Stated Complaint: Headache RYNE: 3 Review of Systems Narrative: Constitutional: Negative for weight loss, alert and oriented, well groomed, normal body habitus, appears comfortable. HEENT: Denies trauma, nasal discharge, sore throat, trouble swallowing. Positive generalized headache. Chest: Denies chest pain, palpitations, irregular rhythm, hypertension. Respiratory: Denies Shortness of breath, cough, hemoptysis. GI: Denies diarrhea, constipation. Positive nausea vomiting, abdominal tenderness due to the vomiting. Describes as burning. : Denies dysuria, hematuria, flank pain, rectal bleeding. Neuro: Denies dizziness, syncope, or facial numbness. Hematologic: Denies intolerance to heat or cold, hair loss. Has a history of factor V Leiden and is on blood thinners. 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) Asthma (Chronic 11/08/12) B12 deficiency (Chronic) Cannabis abuse with cannabis-induced disorder (Chronic) Cellulitis of left leg (Resolved) Chronic anticoagulation (Chronic) Chronic back pain greater than 3 months duration (Chronic 12/29/14) Cyst of fallopian tube (Resolved) Depression (Chronic) Factor V Leiden mutation (Chronic) GERD (gastroesophageal reflux disease) (Chronic) Hematuria (Resolved) History of DVT (deep vein thrombosis) (Chronic) Hypothyroidism (Chronic) Intractable vomiting with nausea (Acute) Left buttock abscess (Resolved) Migraine headache (Chronic) Nephrolithiasis (Chronic) Panic disorder (Chronic 03/21/16) Preseptal cellulitis of left eye (Inactive) Recurrent deep vein thrombosis (DVT) (Chronic) Right lower quadrant abdominal pain (Resolved) inflamed/ruptured fallopian tube on the right 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) Vaginal candidiasis (Inactive) Surgical History Abdominal hysterectomy (~2009) 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) Arthroplasty of knee (~1999) left Bilateral salpingectomy with oophorectomy (~2008) Cervical Conization/LEEP LEEP 2003 [facility] BX 2003 Cholecystectomy S/P appendectomy (Acute 12/24/17) Dr Veliz - Car [place] and car excision of R fallopian tube remnant Status post cholecystectomy (Inactive) Status post LEEP (loop electrosurgical excision procedure) of cervix (Inactive) THUMB RECONSTRUCTION left; in childhood Social History Smoking/Tobacco Use Status: Never Alcohol Intake: current Alcohol Intake frequency: 0-2 drinks per day Drug use: Daily Substance use type: marijuana Do you feel safe at home: Yes Do you feel safe in your relationship?: Yes Additional Social history: Patient is and with one child. She denies any smoking or significant alcohol use, but admits to regular marijuana use. Exam Narrative Exam Narrative: Constitutional: Alert and oriented x3. Appears stated age. Normal body habitus. Head: Normocephalic, no trauma. Eyes: Pupils PERRLA, Red reflex noted, EOM's intact. Eyelids symmetrical without lesions, discharge, or swelling. ENT: Bilateral TM's WNL, External ear normal to inspection, no mastoid TTP, swelling, or erythema, Nasal turbinates WNL, no nasal discharge. Normal dentition, Posterior pharynx WNL, no exudate. Chest: RRR, Normal S1, S2, distal pulses intact. Resp: Lungs clear to auscultation bilaterally, no wheezes, rales, or rhonchi. Musculoskeletal: Normal gait, 5/5 strength to all four extremities. Skin: No suspicious rashes or lesions. Capillary refill less than 2 sec. Neurologic: Cranial nerves II-XII intact. Alert and oriented x 3. DTR's intact. Hematologic/Lymphatic: No ecchymosis, no lymphadenopathy. Course Vital Signs Vital signs: Vital Signs Temperature 36.4 C L 09/16/19 21:22 Pulse 59 L 09/16/19 21:22 Respiratory Rate 14 09/16/19 21:22 Blood Pressure 142/62 H 09/16/19 21:22 Pulse Oximetry 100 09/16/19 21:22 Temperature 36.4 C L 09/16/19 21:22 Temperature Source Temporal Artery Scan 09/16/19 21:22 Pulse 59 L 09/16/19 21:22 Respiratory Rate 14 09/16/19 21:22 Respiratory Effort Splinting 09/16/19 21:25 Blood Pressure 142/62 H 09/16/19 21:22 Blood Pressure Position Sitting 09/16/19 21:22 Pulse Oximetry 100 09/16/19 21:22 Comment 09/16/19 21:22
[2019-09-16] MEDS: Normal Saline 1,000 ML 1000 ML IV (22:00)
[2019-09-16] MEDS: Prochlorperazine 10 MG/2 ML VIAL IVP (22:11)
[2019-09-16] MEDS: diphenhydrAMINE 50 MG/ML VIAL 25 MG IVP (22:11)
[2019-09-16] MEDS: Ondansetron 4 MG/2 ML VIAL IVP (22:11)
--- NOTE | 2019-09-16 22:52 | DI.VRAD_ITS ---
PROCEDURE INFORMATION: Exam: CT Head Without Contrast Exam date and time: 09/16/2019 10:41 PM Age: 39 years old Clinical indication: Other: Migraine headache on blood thinners; Additional info: Patient refused to removed jewelry TECHNIQUE: Imaging protocol: Computed tomography of the head without contrast. Radiation optimization: All CT scans at this facility use at least one of these dose optimization techniques: automated exposure control; mA and/or kV adjustment per patient size (includes targeted exams where dose is matched to clinical indication); or iterative reconstruction. COMPARISON: CT HEAD WITHOUT CONTRAST 11/17/2016 12:27 PM FINDINGS: Brain: Cerebral sulci show bilateral symmetry with no supratentorial mass or mass effect detected. Brainstem and cerebellum are normal in appearance. No significant foci of abnormal increased or decreased attenuation are seen within the brain parenchyma. There is no evidence of acute intracranial hemorrhage. Ventricles: Ventricular and cisternal spaces are normal in size and configuration and there is no midline shift or hydrocephalus seen. Bones/joints: Bony calvarium and skull base are intact and no acute fractures are detected. Sinuses: Paranasal sinuses are clear throughout and their bony margins are intact at the levels imaged. Mastoid air cells: Normally pneumatized and clear bilaterally. Soft tissues: Unremarkable. IMPRESSION: Unremarkable noncontrast head CT with no evidence of an acute intracranial process. Dictated and Authenticated by: Tonny Herring MD. Ordering:LUZ MRAIA Cedillo MD
[2019-09-16 22:54] VITALS: BP 128/64; PULSE 101; RESP 16; O2SAT 99
[2019-09-16] MEDS: Ketorolac 30 MG/ML VIAL IVP (23:10)
[2019-09-17 00:09] VITALS: BP 138/84; PULSE 78; RESP 16; O2SAT 99
== END 2019-09-16 22:00 | disposition home or self-care (01) ==
LOC: ER 09-17 00:14
PROVIDERS: Emergency Provider Registered Nurse Emergency; PCP Nurse Practitioner Family
DX: G43.809 Other migraine, not intractable, without status migrainosus (principal); R11.2 Nausea with vomiting, unspecified; D68.51 Activated protein C resistance; Z79.01 Long term (current) use of anticoagulants
CPT/HCPCS: 96361; 96365; 96375; 99284; 70450; J0780; J1200; J1885; J2405

== ENCOUNTER 2019-11-21 03:50 | Emergency (ER) | payer MEDICARE, MEDICAID, SELFPAY ==
[2019-11-21] VITALS (16 sets, daily range): BP systolic 92–125; BP diastolic 58–83; PULSE 66–100; RESP 11–27; TEMP 36.5; O2SAT 95–99
--- NOTE | 2019-11-21 04:00 | DI.US_ITS ---
EXAM: US LOWER EXTREMITY VENOUS LT CLINICAL HISTORY: r/o DVT, TECHNIQUE: Ultrasound performed using standard protocol. COMPARISON: US LEFT EXTREMITY ULTRASOUND from 12/11/2016 FINDINGS: Duplex venous ultrasound of the left lower extremity was performed. There is visible noncompressible thrombus in common femoral vein extending distally to the level of the mid posterior tibial veins. The proximal visualized common femoral vein appears free of thrombus. IMPRESSION: Examination is positive for DVT extending from mid common femoral vein to the mid calf level. DATA REPOSITORY:
--- NOTE | 2019-11-21 04:06 | W.ED.GENAD ---
Discharge Plan Disposition Patient Disposition: HOME Condition: Stable Discharge Details Chief Complaint: Vascular Clinical Impression: Acute deep vein thrombosis (DVT) of left lower extremity, History of factor V Leiden mutation Primary Care Provider: Mikayla Reagan ED Provider: Liliana Ku Home Meds and New Rx's Prescriptions: New enoxaparin [Lovenox] 60 mg/0.6 mL syringe 70 mg SC Q12H 7 Days Qty: 9.8 RF: 0 Continued valacyclovir 1 gram tablet 1,000 mg PO TID Qty: 35 RF: 0 levothyroxine [Synthroid] 100 mcg tablet 100 mcg PO QPM Qty: 90 RF: 4 hydrocodone-acetaminophen 7.5-325 mg tablet 1 tab PO BID MDD 2 tabs PRN (Reason: pain) Qty: 60 RF: 0 topiramate [Topamax] 200 mg tablet 400 mg PO HS Qty: 180 RF: 4 Citracal Plus Bone Density 1 EACH tablet 1 ea PO BID RF: 0 cyproheptadine 4 MG tablet 4 mg PO HS Qty: 90 RF: 3 ipratropium-albuterol 3 ML solution for nebulization 3 ml Inhalation Q4H PRN MDD 6 times PRNQty: 1 RF: 0 warfarin [Coumadin] 5 mg tablet 0 - 10 mg PO HS PRN 90 Days Qty: 100 RF: 3 albuterol sulfate [ProAir HFA] 90 mcg/actuation HFA aerosol inhaler 2 puff Inhalation Q6H PRN MDD 6 puffs Qty: 3 RF: 4 albuterol sulfate 1.25 mg/3 mL solution for nebulization 1.25 mg Inhalation Q6H PRN (Reason: shortness of breath or wheezing) Qty: 75 RF: 3 Flovent HFA 220 mcg/actuation HFA aerosol inhaler 2 inh Inhalation BID Qty: 3 RF: 4 mupirocin 2 % ointment 1 applic TP BID Qty: 22 RF: 0 epinephrine [EpiPen 2-Nino] 0.3 mg/0.3 mL auto-injector 0.3 mg IM ONCE Qty: 1 RF: 1 acidophilus-pectin, citrus 25 million cell -100 mg tablet 2 tab PO TID Qty: 90 RF: 4 alcohol swabs [Alcohol Wipes] Pads, Medicated See Rx Instructions TP .COMPLEX Qty: 300 RF: 4 clonazepam 1 mg tablet 1 mg PO TID PRN (Reason: anxiety) Qty: 90 RF: 2 clotrimazole-betamethasone [Lotrisone] 1-0.05 % cream 1 applic Topical BID Qty: 45 RF: 1 triamcinolone acetonide 0.1 % cream 1 applic Topical BID PRN (Reason: eczema) Qty: 60 RF: 1 omeprazole 40 mg capsule,delayed release(DR/EC) 40 mg PO DAILY PRN (Reason: GERD) Qty: 90 RF: 4 sumatriptan succinate 6 mg/0.5 mL pen injector 6 mg subcut As directed MDD 12 mg Qty: 8 RF: 5 methylphenidate HCl 20 mg tablet 20 mg PO TID MDD 60 mg Qty: 84 RF: 0 fexofenadine 180 mg tablet 180 mg PO DAILY Qty: 90 RF: 4 divalproex 500 mg tablet,delayed release (DR/EC) 500 mg PO TID Qty: 90 RF: 2 (DME) Space Chamber Plus 1 EACH spacer 1 ea Miscellaneous Q4H PRN Qty: 1 RF: 0 Narcan 4 MG spray,non-aerosol 4 mg NS DAILY PRN PRNQty: 2 RF: 0 Discharge Instructions Instructions: Enoxaparin (Injection), Deep Vein Thrombosis (ED) Additional Instructions: Inject the Lovenox subcutaneously as directed every 12 hours. Continue your regular Coumadin dosing as directed. Check your INR tomorrow. Your primary care office will follow-up with you tomorrow regarding your INR result and further management of your Coumadin. Continue all of your other regular medications as directed. Return to the emergency department with any worsening or new concerning symptoms such as fever, chest pain, shortness of breath or worsening pain or swelling. Discharge Data Discharge Physician: Liliana Ku Medical Decision Making <Kobi Powers DO - Last Filed: 11/21/19 07:07> 39-year-old female with a past medical history of factor V Leiden deficiency, and history of DVTs presents today for left lower extremity pain. Pain is been present for the last week, she describes it is achy pain. She has not gotten her Coumadin checked in over the last week as she missed her most recent check. She complains of pain behind the left knee, and traveling proximally and distally to this. She denies any new chest pain or shortness of breath or pleuritic chest pain. She states that her symptoms feel similar to a previous DVT of the past. She denies missing any Coumadin doses or any changes in diet. No other complaints at this time. She has been taking her medications for pain but this is not been alleviating her symptoms. Physical exam demonstrates minimal tenderness minimal swelling on the left lower extremity compared to the right. Reproducible pain in the posterior aspect of the knee at the medial aspect. Bedside notably limited ultrasound does show what appears to be an area of a noncompressible posterior popliteal vein, with no significant flow suggestive of DVT. We will check labs, check INR level, get formal ultrasonography once ultrasonography arrives in a few hours. We will manage the patient's pain, monitor closely and reassess. 5 AM Patient's INR is 1.0, this correlates well with a suspected DVT. Will give 80 mg of subcutaneous Lovenox. Still pending ultrasound. Case will be signed out to my colleague for ultrasound follow-up. <Liliana Ku DO - Last Filed: 11/21/19 09:55> 0800 --please see Dr. Powers's note for initial presentation, exam and plan. Case endorsed to follow-up on ultrasound result and final disposition. 0830 --ultrasound notes DVT extending from left femoral to mid calf level to mid calf level. Patient states she has used injected anticoagulation in the past and feels very comfortable with this. In general, admission would be recommended for treatment of extensive DVT, however patient is declining admission if her son cannot be present with her while on the floor. Discussed that we are still following a no visitor policy and she is declining to stay. Patient has been taking Coumadin for over 20 years. She feels very comfortable using Lovenox subcu at home while continuing her Coumadin. Case was discussed with her primary care office transportation modeler Dr. Hernandez who agreed with plan for 1 mg/kg SC every 12 hours Lovenox continued with her current dosing of Coumadin. Patient checks her INR at home. PCP office will follow up with her tomorrow regarding any change needed in her Coumadin dosing. Patient was given a prescription for Lovenox. She requested crutches and was able to ambulate on her own. Usual and customary return precautions given prior to discharge. Imaging Data Radiologic Study: Radiologist's impression: US LOWER EXTREMITY VENOUS LT CLINICAL HISTORY: r/o DVT, TECHNIQUE: Ultrasound performed using standard protocol. COMPARISON: US LEFT EXTREMITY ULTRASOUND from 12/11/2016 FINDINGS: Duplex venous ultrasound of the left lower extremity was performed. There is visible noncompressible thrombus in common femoral vein extending distally to the level of the mid posterior tibial veins. The proximal visualized common femoral vein appears free of thrombus. IMPRESSION: Examination is positive for DVT extending from mid common femoral vein to the mid calf level. HPI <Kobi Powers, - Last Filed: 11/21/19 07:07> General Date/Time Provider Initiated Documentation: 11/21/19 03:51. HPI Narrative: 39-year-old female with a past medical history of factor V Leiden deficiency, and history of DVTs presents today for left lower extremity pain. Pain is been present for the last week, she describes it is achy pain. She has not gotten her Coumadin checked in over the last week as she missed her most recent check. She complains of pain behind the left knee, and traveling proximally and distally to this. She denies any new chest pain or shortness of breath or pleuritic chest pain. She states that her symptoms feel similar to a previous DVT of the past. She denies missing any Coumadin doses or any changes in diet. No other complaints at this time. She has been taking her medications for pain but this is not been alleviating her symptoms. Related Data Home Medications Medication Instructions Recorded Confirmed Citracal Plus Bone Density 1 ea PO BID tab-cap 11/09/12 11/21/19 Space Chamber Plus #1 spacer 05/01/14 11/21/19 cyproheptadine 4 mg PO HS #90 tab-cap 06/04/16 11/21/19 Narcan 4 mg NS DAILY PRN PRN #2 spray 12/08/16 11/21/19 ipratropium-albuterol 3 ml INHALATION Q4H PRN PRN #1 box 01/23/17 11/21/19 MDD 6 times warfarin 5 mg tablet 0 - 10 mg PO HS PRN 90 Days #100 12/31/18 11/21/19 tab-cap albuterol sulfate 1.25 mg/3 mL 1.25 mg INHALATION Q6H PRN #75 ml 01/12/19 11/21/19 solution for nebulization albuterol sulfate 90 mcg/actuation 2 puff INHALATION Q6H PRN #3 01/12/19 11/21/19 aerosol inhaler inhaler MDD 6 puffs fluticasone propionate 220 2 inh INHALATION BID #3 inhaler 01/12/19 11/21/19 mcg/actuation HFA aerosol inhaler mupirocin 2 % topical ointment 1 applic TP BID #22 gm 01/12/19 11/21/19 epinephrine 0.3 mg/0.3 mL 0.3 mg IM ONCE #1 ea 01/27/19 11/21/19 injection, auto-injector acidophilus 25 million 2 tab PO TID #90 tab 05/29/19 11/21/19 cell-pectin, citrus 100 mg tablet levothyroxine 100 mcg tablet 100 mcg PO QPM #90 tab 06/24/19 11/21/19 valacyclovir 1 gram tablet 1,000 mg PO TID #35 tab 06/24/19 11/21/19 alcohol swabs See Rx Instructions TP .COMPLEX 07/11/19 11/21/19 #300 each clonazepam 1 mg tablet 1 mg PO TID PRN #90 tab 08/15/19 11/21/19 clotrimazole-betamethasone 1 1 applic TOPICAL BID #45 gm 08/15/19 11/21/19 %-0.05 % topical cream triamcinolone acetonide 0.1 % 1 applic TOPICAL BID PRN #60 gm 09/05/19 11/21/19 topical cream omeprazole 40 mg capsule,delayed 40 mg PO DAILY PRN #90 cap 09/09/19 11/21/19 release sumatriptan succinate 6 mg/0.5 mL 6 mg SUBCUT As directed #8 pen MDD 09/09/19 11/21/19 subcutaneous pen injector 12 mg hydrocodone 7.5 mg-acetaminophen 1 tab PO BID PRN #60 tab MDD 2 tabs 09/23/19 11/21/19 325 mg tablet methylphenidate HCl 20 mg tablet 20 mg PO TID #84 tab-cap MDD 60 mg 10/20/19 11/21/19 fexofenadine 180 mg tablet 180 mg PO DAILY #90 tab-cap 11/01/19 11/21/19 Topamax 200 mg tablet 400 mg PO HS #180 tab NS 11/11/19 11/21/19 divalproex 500 mg tablet,delayed 500 mg PO TID #90 tab 11/16/19 11/21/19 release enoxaparin [Lovenox] 70 mg SC Q12H 7 Days #9.8 ml 11/21/19 Previous Rx's Medication Instructions Recorded Space Chamber Plus #1 spacer 05/01/14 Narcan 4 mg NS DAILY PRN PRN #2 spray 12/08/16 warfarin 5 mg tablet 0 - 10 mg PO HS PRN 90 Days #100 12/31/18 tab-cap albuterol sulfate 1.25 mg/3 mL 1.25 mg INHALATION Q6H PRN #75 ml 01/12/19 solution for nebulization albuterol sulfate 90 mcg/actuation 2 puff INHALATION Q6H PRN #3 01/12/19 aerosol inhaler inhaler MDD 6 puffs fluticasone propionate 220 2 inh INHALATION BID #3 inhaler 01/12/19 mcg/actuation HFA aerosol inhaler mupirocin 2 % topical ointment 1 applic TP BID #22 gm 01/12/19 epinephrine 0.3 mg/0.3 mL 0.3 mg IM ONCE #1 ea 01/27/19 injection, auto-injector acidophilus 25 million 2 tab PO TID #90 tab 05/29/19 cell-pectin, citrus 100 mg tablet levothyroxine 100 mcg tablet 100 mcg PO QPM #90 tab 06/24/19 valacyclovir 1 gram tablet 1,000 mg PO TID #35 tab 06/24/19 alcohol swabs See Rx Instructions TP .COMPLEX 07/11/19 #300 each clonazepam 1 mg tablet 1 mg PO TID PRN #90 tab 08/15/19 clotrimazole-betamethasone 1 1 applic TOPICAL BID #45 gm 08/15/19 %-0.05 % topical cream triamcinolone acetonide 0.1 % 1 applic TOPICAL BID PRN #60 gm 09/05/19 topical cream omeprazole 40 mg capsule,delayed 40 mg PO DAILY PRN #90 cap 09/09/19 release sumatriptan succinate 6 mg/0.5 mL 6 mg SUBCUT As directed #8 pen MDD 09/09/19 subcutaneous pen injector 12 mg hydrocodone 7.5 mg-acetaminophen 1 tab PO BID PRN #60 tab MDD 2 tabs 09/23/19 325 mg tablet methylphenidate HCl 20 mg tablet 20 mg PO TID #84 tab-cap MDD 60 mg 10/20/19 fexofenadine 180 mg tablet 180 mg PO DAILY #90 tab-cap 11/01/19 Topamax 200 mg tablet 400 mg PO HS #180 tab NS 11/11/19 divalproex 500 mg tablet,delayed 500 mg PO TID #90 tab 11/16/19 release enoxaparin [Lovenox] 70 mg SC Q12H 7 Days #9.8 ml 11/21/19 Allergies Allergy/AdvReac Type Severity Reaction Status Date / Time aripiprazole [From Abilify] Allergy Severe Rash, hives Verified 11/21/19 03:57 doxycycline Allergy Severe Anaphylaxsi Verified 11/21/19 03:57 s levetiracetam [From Keppra] Allergy Severe RASH/HIVES Verified 11/21/19 03:57 sulfamethoxazole Allergy Severe Hives Verified 11/21/19 03:57 venom-honey bee Allergy Severe unknown Verified 11/21/19 03:57 Penicillins Allergy Intermediate Skin Rash Verified 11/21/19 03:57 chlorhexidine Allergy Unknown unknown Verified 11/21/19 03:57 Sulfa (Sulfonamide Allergy Verified 11/21/19 03:57 Antibiotics) mold AdvReac Severe Wheezing Verified 11/21/19 03:57 oxycodone [Oxycodone] AdvReac Severe vomits Verified 11/21/19 03:57 paroxetine AdvReac Severe Irritability Verified 11/21/19 03:57 and anger dicloxacillin [Dicloxacillin] AdvReac Mild Nausea Verified 11/21/19 03:57 gabapentin AdvReac Mild hives Verified 11/21/19 03:57 prednisone AdvReac Agitation Verified 11/21/19 03:57 trazodone AdvReac shortness Verified 11/21/19 03:57 of breath verapamil [Verapamil] AdvReac Worsening Verified 11/21/19 03:57 migraine nuts Allergy Severe Anaphylaxsi Uncoded 11/21/19 03:57 s General Stated Complaint: Vascular RYNE: 3 Review of Systems <Kobi Powers DO - Last Filed: 11/21/19 07:07> All systems reviewed & are unremarkable except as noted in HPI and below PFSH <Kobi Powers DO - Last Filed: 11/21/19 07:07> Medical History ADHD (attention deficit hyperactivity disorder), 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) Asthma (Chronic 11/08/12) B12 deficiency (Chronic) Cannabis abuse with cannabis-induced disorder (Chronic) Cellulitis of left leg (Resolved) Chronic anticoagulation (Chronic) Chronic back pain greater than 3 months duration (Chronic 12/29/14) Cyst of fallopian tube (Resolved) Depression (Chronic) Factor V Leiden mutation (Chronic) GERD (gastroesophageal reflux disease) (Chronic) Hematuria (Resolved) History of DVT (deep vein thrombosis) (Chronic) Hypothyroidism (Chronic) Intractable vomiting with nausea (Acute) Left buttock abscess (Resolved) Migraine headache (Chronic) Nephrolithiasis (Chronic) Panic disorder (Chronic 03/21/16) Preseptal cellulitis of left eye (Inactive) Recurrent deep vein thrombosis (DVT) (Chronic) Right lower quadrant abdominal pain (Resolved) inflamed/ruptured fallopian tube on the right 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) Vaginal candidiasis (Inactive) Surgical History Abdominal hysterectomy (~2009) 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) Arthroplasty of knee (~1999) left Bilateral salpingectomy with oophorectomy (~2008) Cervical Conization/LEEP LEEP 2003 [facility] BX 2003 Cholecystectomy S/P appendectomy (Acute 12/24/17) Dr Veliz - Car appy and car excision of R fallopian tube remnant Status post cholecystectomy (Inactive) Status post LEEP (loop electrosurgical excision procedure) of cervix (Inactive) THUMB RECONSTRUCTION left; in childhood Social History Smoking/Tobacco Use Status: Never Alcohol Intake: current Alcohol Intake frequency: 0-2 drinks per day Drug use: Daily Substance use type: marijuana Do you feel safe at home: Yes Do you feel safe in your relationship?: Yes Additional Social history: Patient is and with one child. She denies any smoking or significant alcohol use, but admits to regular marijuana use. Exam <Kobi Powers DO - Last Filed: 11/21/19 07:07> Narrative Exam Narrative: 1.Const: Well-nourished, Well-developed, appearing stated age 2.Eyes: PERRL, no conjunctival injection, and symmetrical lids. 3.ENT: Atraumatic external nose and ears. Moist MM. Neck: Symmetric, trachea midline, No thyromegaly. 4.CVS: +S1/S2, No murmurs or gallops. Peripheral pulses 2+ and equal in all extremities. Brisk capillary refill in all extremities. 5.RESP: Unlabored respiratory effort. Clear to auscultation bilaterally. No wheezes rales or rhonchi 6.GI: Soft, Nontender/Nondistended, No hepatosplenomegaly. No guarding or rebound. 7.MSK: Normocephalic/Atraumatic, Extremities w/o deformity, left lower extremity does demonstrate slight redness at the medial aspect at the knee and the posterior component, as well as minimal subtle swelling in this area and proximally and distally a few inches. Notable reproducible tenderness, no induration or warmth to suggest cellulitis or infection. 8.Skin: Warm, Dry. No rashes or lesions. 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 Sensation grossly intact, no focal neurologic deficits. 10.Psych: (AAO) x3. Appropriate mood and affect Course <Kobi MeekscerDO - Last Filed: 11/21/19 07:07> Vital Signs Vital signs: Vital Signs Temperature 36.5 C 11/21/19 03:54 Pulse 100 H 11/21/19 03:54 Respiratory Rate 18 11/21/19 03:54 Blood Pressure 125/74 11/21/19 03:54 Pulse Oximetry 95 11/21/19 03:54 Temperature 36.5 C 11/21/19 03:54 Temperature Source Temporal Artery Scan 11/21/19 03:54 Pulse 100 H 11/21/19 03:54 Respiratory Rate 18 11/21/19 03:58 Respiratory Effort Non-Labored 11/21/19 03:58 Blood Pressure 125/74 11/21/19 03:54 Blood Pressure Position Sitting 11/21/19 03:54 Pulse Oximetry 95 11/21/19 03:54 Oxygen Delivery Method Room Air 11/21/19 03:54 Oxygen Flow Rate 0 11/21/19 03:54 Pain Level 10 11/21/19 03:58 Sign Out <Kobi Powers DO - Last Filed: 11/21/19 07:07> Sign Out Data: Sign Out Comment: Suspect DVT in the left lower extremity, INR/Coumadin is subtherapeutic, gave 80 mg of subcu Lovenox. Pending ultrasound Last updated by Kobi Powers DO at 11/21/19 07:09
[2019-11-21 04:14] LABS: Abs Immature Grans 0.03 10^3/uL (0.0-0.06); Absolute Basophil Count 0.04 10^3/uL (0.0-0.2); Absolute Eosinophil Count 0.46 10^3/uL (0.0-0.7); Absolute Lymphocyte Count 1.55 10^3/uL (1.2-3.4); Absolute Monocyte Count 1.03 10^3/uL (0.1-0.8); Absolute Neutrophil Count 6.06 10^3/uL (1.2-6.7); Basophils % 0.4; HCT 38.8 % (36.0-46.0); HGB 13.3 g/dL (11.2-15.7); Immature Grans % 0.3; Lymphocytes % 16.9; MCH 29.5 pg (27.0-33.0); MCHC 34.3 % (32.0-36.0); MPV 11.7 fL (8.0-11.0); Monocytes % 11.2; Neutrophils % 66.2; Platelet Count 148 10^3/uL (130-400); RBC 4.51 10^6/uL (3.93-5.22); RDW 13.3 % (11.7-14.6); RDW-SD 41.4 fL; WBC 9.17 10^3/uL (4.4-10.8)
[2019-11-21] MEDS: Ketorolac 15 MG/ML VIAL IVP (04:18)
[2019-11-21] MEDS: Acetaminophen 500 MG TAB 1000 MG PO (04:18)
[2019-11-21] MEDS: Normal Saline 500 ML IV (04:18)
[2019-11-21 04:29] LABS: PTT Activated 27.1 sec (21.0-31.4); Prothrombin Time 10.5 sec (9.3-11.0)
[2019-11-21 04:30] LABS: ALT 17 U/L (14-59); AST 13 U/L (15-37); Albumin 3.9 g/dL (3.4-5.0); Alkaline Phosphatase 45 U/L (46-116); Anion Gap 15.5 mmol/L (3-11); BUN 10 mg/dL (7-18); Bilirubin, Total 0.8 mg/dL (0.2-1.0); CO2 18.5 mmol/L (21.0-32.0); CREATININE 1.04 mg/dL (0.55-1.02); Calcium 8.5 mg/dL (8.5-10.1); Chloride 104 mmol/L (98-107); Estimated GFR 58.69 (mL/min/1.73m2); Glucose 115 mg/dL (74-106); Potassium 3.4 mmol/L (3.5-5.1); Sodium 138 mmol/L (136-145); Total Protein 7.7 g/dL (6.4-8.2)
[2019-11-21] MEDS: Enoxaparin 80 MG/0.8 ML SYR SC (04:44)
[2019-11-21] MEDS: HYDROmorphone 2 MG/ML VIAL 1 MG IVP (05:05)
== END 2019-11-21 09:40 | disposition home or self-care (01) ==
PROVIDERS: Student in an Organized Health Care Education/Training Program; Emergency Provider Physician Assistant; PCP Nurse Practitioner Family
DX: I82.412 Acute embolism and thrombosis of left femoral vein (principal); I82.442 Acute embolism and thrombosis of left tibial vein; D68.51 Activated protein C resistance; Z86.718 Personal history of other venous thrombosis and embolism; Z79.01 Long term (current) use of anticoagulants
CPT/HCPCS: 36415; 80053; 96361; 96372; 96374; 96375; 99284; 85025; 85610; 85730; 93971; 99285; E0114; J1650; J1885

== ENCOUNTER 2019-11-22 10:20 | Observation (INO) | payer MEDICARE, MEDICAID, SELFPAY ==
[2019-11-22 10:30] VITALS: RESP 16; TEMP 36.8; O2SAT 98
[2019-11-22 10:34] VITALS: RESP 12
--- NOTE | 2019-11-22 10:42 | W.ED.GENAD ---
Discharge Plan Disposition Patient Disposition: [facility] INPATIENT Condition: Fair Discharge Details Chief Complaint: GenMedical Clinical Impression: Factor V Leiden mutation, Acute deep vein thrombosis (DVT) of left lower extremity Admit Date/Time: 11/22/19 11:13 Admit Provider: Bry Murillo Attending Provider: Bry Murillo Primary Care Provider: Mikayla Reagan ED Provider: Gaviota Mendez Discharge Instructions Activity:: Activity as Tolerated Equipment/Supplies:: No Equipment Needed Diet:: Normal Diet Discharge Orders Discharge Orders: Discharge Order (Routine); Ordered 11/23/19 Ordered By: Bry Murillo Discharge Data Discharge Date/Time-TO BE ENTERED AT DEPARTURE: 11/22/19 12:25 Medical Decision Making <Lester Gorman MD - Last Filed: 11/22/19 11:09> I had a [id number] encounter with the patient. I evaluated the patient. I discussed case with DEPENDENCY CASE MANAGER/PA and I reviewed DEPENDENCY CASE MANAGER/PA note and agree with note as documented. <TYRON Moreno - Last Filed: 11/23/19 22:30> Patient is a pleasant 39-year-old female presents today with chief complaint of DVT to left lower extremity. Patient has history of factor V Leiden deficiency. She was seen here yesterday and was diagnosed with a DVT despite not missing any dose of her Coumadin. Patient was subtherapeutic with an INR 1.0. At that time, patient was offered admission which she declined. She does report that she did administer her Lovenox injection this morning. Has been taking her Coumadin as previously prescribed. She denies any chest pain or shortness of breath. Has not noted any change in overall symptoms except to report that her pain is unable to be controlled at home. Reviewed the documentation. Reviewed previous ultrasound. I do agree with previous providers assessment admission for her DVT that she has despite being anticoagulated. Again, this seems to be from difficulty with management of her anticoagulation as she has been found to be subtherapeutic. As the patient is unable to manage her pain will admit for pain management continue treatment of her DVT. Patient will be given pain management here. Consulted with hospitalist who agrees to admission. HPI <Lester Gorman MD - Last Filed: 11/22/19 11:09> General Date/Time Provider Initiated Documentation: 11/22/19 10:35. Related Data Home Medications Medication Instructions Recorded Confirmed Citracal Plus Bone Density 1 ea PO BID tab-cap 11/09/12 11/22/19 Space Chamber Plus #1 spacer 05/01/14 11/22/19 cyproheptadine 4 mg PO HS #90 tab-cap 06/04/16 11/22/19 Narcan 4 mg NS DAILY PRN PRN #2 spray 12/08/16 11/22/19 ipratropium-albuterol 3 ml INHALATION Q4H PRN PRN #1 box 01/23/17 11/22/19 MDD 6 times warfarin 5 mg tablet 0 - 10 mg PO HS PRN 90 Days #100 12/31/18 11/22/19 tab-cap albuterol sulfate 1.25 mg/3 mL 1.25 mg INHALATION Q6H PRN #75 ml 01/12/19 11/22/19 solution for nebulization albuterol sulfate 90 mcg/actuation 2 puff INHALATION Q6H PRN #3 01/12/19 11/22/19 aerosol inhaler inhaler MDD 6 puffs fluticasone propionate 220 2 inh INHALATION BID #3 inhaler 01/12/19 11/22/19 mcg/actuation HFA aerosol inhaler mupirocin 2 % topical ointment 1 applic TP BID #22 gm 01/12/19 11/22/19 epinephrine 0.3 mg/0.3 mL 0.3 mg IM ONCE #1 ea 01/27/19 11/22/19 injection, auto-injector acidophilus 25 million 2 tab PO TID #90 tab 05/29/19 11/22/19 cell-pectin, citrus 100 mg tablet levothyroxine 100 mcg tablet 100 mcg PO QPM #90 tab 06/24/19 11/22/19 valacyclovir 1 gram tablet 1,000 mg PO TID #35 tab 06/24/19 11/22/19 alcohol swabs See Rx Instructions TP .COMPLEX 07/11/19 11/22/19 #300 each clonazepam 1 mg tablet 1 mg PO TID PRN #90 tab 08/15/19 11/22/19 triamcinolone acetonide 0.1 % 1 applic TOPICAL BID PRN #60 gm 09/05/19 11/22/19 topical cream omeprazole 40 mg capsule,delayed 40 mg PO DAILY PRN #90 cap 09/09/19 11/22/19 release sumatriptan succinate 6 mg/0.5 mL 6 mg SUBCUT As directed #8 pen MDD 09/09/19 11/22/19 subcutaneous pen injector 12 mg hydrocodone 7.5 mg-acetaminophen 1 tab PO BID PRN #60 tab MDD 2 tabs 09/23/19 11/22/19 325 mg tablet methylphenidate HCl 20 mg tablet 20 mg PO TID #84 tab-cap MDD 60 mg 10/20/19 11/22/19 fexofenadine 180 mg tablet 180 mg PO DAILY #90 tab-cap 11/01/19 11/22/19 Topamax 200 mg tablet 400 mg PO HS #180 tab NS 11/11/19 11/22/19 divalproex 500 mg tablet,delayed 500 mg PO TID #90 tab 11/16/19 11/22/19 release hydromorphone 2 mg PO Q6H PRN #10 tab 11/23/19 Previous Rx's Medication Instructions Recorded Space Chamber Plus #1 spacer 05/01/14 Narcan 4 mg NS DAILY PRN PRN #2 spray 12/08/16 warfarin 5 mg tablet 0 - 10 mg PO HS PRN 90 Days #100 12/31/18 tab-cap albuterol sulfate 1.25 mg/3 mL 1.25 mg INHALATION Q6H PRN #75 ml 01/12/19 solution for nebulization albuterol sulfate 90 mcg/actuation 2 puff INHALATION Q6H PRN #3 01/12/19 aerosol inhaler inhaler MDD 6 puffs fluticasone propionate 220 2 inh INHALATION BID #3 inhaler 01/12/19 mcg/actuation HFA aerosol inhaler mupirocin 2 % topical ointment 1 applic TP BID #22 gm 01/12/19 epinephrine 0.3 mg/0.3 mL 0.3 mg IM ONCE #1 ea 01/27/19 injection, auto-injector acidophilus 25 million 2 tab PO TID #90 tab 05/29/19 cell-pectin, citrus 100 mg tablet levothyroxine 100 mcg tablet 100 mcg PO QPM #90 tab 06/24/19 valacyclovir 1 gram tablet 1,000 mg PO TID #35 tab 03/06/20 alcohol swabs See Rx Instructions TP .COMPLEX 07/11/19 #300 each clonazepam 1 mg tablet 1 mg PO TID PRN #90 tab 08/15/19 triamcinolone acetonide 0.1 % 1 applic TOPICAL BID PRN #60 gm 09/05/19 topical cream omeprazole 40 mg capsule,delayed 40 mg PO DAILY PRN #90 cap 09/09/19 release sumatriptan succinate 6 mg/0.5 mL 6 mg SUBCUT As directed #8 pen MDD 09/09/19 subcutaneous pen injector 12 mg hydrocodone 7.5 mg-acetaminophen 1 tab PO BID PRN #60 tab MDD 2 tabs 09/23/19 325 mg tablet methylphenidate HCl 20 mg tablet 20 mg PO TID #84 tab-cap MDD 60 mg 10/20/19 fexofenadine 180 mg tablet 180 mg PO DAILY #90 tab-cap 11/01/19 Topamax 200 mg tablet 400 mg PO HS #180 tab NS 11/11/19 divalproex 500 mg tablet,delayed 500 mg PO TID #90 tab 11/16/19 release hydromorphone 2 mg PO Q6H PRN #10 tab 11/23/19 Allergies Allergy/AdvReac Type Severity Reaction Status Date / Time aripiprazole [From Abilify] Allergy Severe Rash, hives Verified 11/21/19 03:57 doxycycline Allergy Severe Anaphylaxsi Verified 11/21/19 03:57 s levetiracetam [From Keppra] Allergy Severe RASH/HIVES Verified 11/21/19 03:57 sulfamethoxazole Allergy Severe Hives Verified 11/21/19 03:57 venom-honey bee Allergy Severe unknown Verified 11/21/19 03:57 Penicillins Allergy Intermediate Skin Rash Verified 11/21/19 03:57 chlorhexidine Allergy Unknown unknown Verified 11/21/19 03:57 Sulfa (Sulfonamide Allergy Verified 11/21/19 03:57 Antibiotics) mold AdvReac Severe Wheezing Verified 11/21/19 03:57 oxycodone [Oxycodone] AdvReac Severe vomits Verified 11/21/19 03:57 paroxetine AdvReac Severe Irritability Verified 11/21/19 03:57 and anger dicloxacillin [Dicloxacillin] AdvReac Mild Nausea Verified 11/21/19 03:57 gabapentin AdvReac Mild hives Verified 11/21/19 03:57 prednisone AdvReac Agitation Verified 11/21/19 03:57 trazodone AdvReac shortness Verified 11/21/19 03:57 of breath verapamil [Verapamil] AdvReac Worsening Verified 11/21/19 03:57 migraine nuts Allergy Severe Anaphylaxsi Uncoded 11/21/19 03:57 s <TYRON Moreno - Last Filed: 11/23/19 22:30> General Mode of arrival: ambulatory. Limitations to Documentation: no limitations. Information obtained by: patient, RN notes reviewed and old records reviewed. History of Present Illness 39 year old F presents to the emergency department with the chief complaint of left leg DVT, described as severe and similar to prior episodes, with intensity rated at 8. Quality is described as aching, and is localized to the left and lower extremity. Patient reports no radiation. and it has been constant. No relieving factors improve symptom(s), No exacerbating factors reported . Patient notes denies chest pain, fever/chills, headaches, loss of appetite, nausea/vomiting, shortness of breath and syncope. Patient did receive the following treatments prior to arrival, other (tylenol, lovenox) General Stated Complaint: GenMedical RYNE: 3 <TYRON Moreno - Last Filed: 11/23/19 22:30> Constitutional Constitutional: Reports as per HPI, Denies chills, Denies fever(s), Denies headache(s) and Denies weakness ENT Ears, Nose, Mouth, and Throat: Denies headache(s) Cardiovascular Cardiovascular: Reports as per HPI Respiratory Respiratory: Reports as per HPI and Denies cough Musculoskeletal Musculoskeletal: Reports as per HPI and Denies tingling Integumentary/Breasts Skin/Breast: Reports as per HPI, Denies rash and Denies wounds Neurologic Neurologic: Reports as per HPI, Denies headache(s), Denies tingling, Denies paresthesias and Denies weakness [facility] <Lester Gorman MD - Last Filed: 11/22/19 11:09> Medical History ADHD (attention deficit hyperactivity disorder), 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) Asthma (Chronic 07/22/13) B12 deficiency (Chronic) Cannabis abuse with cannabis-induced disorder (Chronic) Cellulitis of left leg (Resolved) Chronic anticoagulation (Chronic) Chronic back pain greater than 3 months duration (Chronic 12/29/14) Cyst of fallopian tube (Resolved) Depression (Chronic) Factor V Leiden mutation (Chronic) GERD (gastroesophageal reflux disease) (Chronic) Hematuria (Resolved) History of DVT (deep vein thrombosis) (Chronic) Hypothyroidism (Chronic) Intractable vomiting with nausea (Acute) Left buttock abscess (Resolved) Migraine headache (Chronic) Nephrolithiasis (Chronic) Panic disorder (Chronic 03/21/16) Preseptal cellulitis of left eye (Inactive) Recurrent deep vein thrombosis (DVT) (Chronic) Right lower quadrant abdominal pain (Resolved) inflamed/ruptured fallopian tube on the right 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) Vaginal candidiasis (Inactive) Surgical History Abdominal hysterectomy (~2009) 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) Arthroplasty of knee (~1999) left Bilateral salpingectomy with oophorectomy (~2008) Cervical Conization/LEEP LEEP 2003 [facility] BX 2003 Cholecystectomy S/P appendectomy (Acute 12/24/17) Dr Veliz - Car appy and lap excision of R fallopian tube remnant Status post cholecystectomy (Inactive) Status post LEEP (loop electrosurgical excision procedure) of cervix (Inactive) THUMB RECONSTRUCTION left; in childhood Social History Smoking/Tobacco Use Status: Never Alcohol Intake: current Alcohol Intake frequency: 0-2 drinks per day Drug use: Daily Substance use type: marijuana Do you feel safe at home: Yes Do you feel safe in your relationship?: Yes Additional Social history: Patient is and with one child. She denies any smoking or significant alcohol use, but admits to regular marijuana use. <TYRON Moreno - Last Filed: 11/23/19 22:30> Const General: cooperative, healthy appearing, comfortable, no acute distress, well developed and well groomed Nutritional Appearance: average body habitus and well nourished Orientation: alert and awake Resp Effort & Inspection: normal respiratory effort, able to speak in complete sentences and no respiratory distress Auscultation: clear to auscultation bilaterally Cardio Rate: regular rate Rhythm: regular rhythm Heart Sounds: S1 normal and S2 normal Skin General skin exam: no rashes or lesions noted Lesions: no lesions Rashes: no rashes Trauma: no lacerations or abrasions Neuro General: patient alert and patient awake Cognition: normal cognition Speech: speech normal Gait: antalgic Motor: muscle tone normal throughout Sensory Exam: no sensory deficits noted Extrem General: normal to inspection, full ROM, capillary refill normal, no joint enlargement, no clubbing, cyanosis or edema, no pedal edema, abnormal gait (antalgic) and calf tenderness on the left Psych Appearance: grossly normal and well kempt Mental Status: mental status grossly normal Speech and Movement: speech and movement normal <TYRON Moreno - Last Filed: 11/23/19 22:30> Vital Signs Vital signs: Vital Signs Temperature 36.8 C 11/22/19 10:30 Respiratory Rate 16 11/22/19 10:30 Pulse Oximetry 98 11/22/19 10:30 Temperature 36.8 C 11/22/19 10:30 Temperature Source Tympanic 11/22/19 10:30 Respiratory Rate 12 11/22/19 10:34 Respiratory Effort Non-Labored 11/22/19 10:34 Respiratory Depth Normal 11/22/19 10:34 Respiratory Pattern Normal 11/22/19 10:34 Blood Pressure Position Sitting 11/22/19 10:30 Pulse Oximetry 98 11/22/19 10:30 Oxygen Delivery Method Room Air 11/22/19 10:30 Oxygen Flow Rate 0 11/22/19 10:30 Pain Level 8 11/22/19 10:30
[2019-11-22] MEDS: HYDROmorphone 2 MG/ML VIAL 1 MG IVP (12:00)
[2019-11-22 12:01] VITALS: BP 139/117; PULSE 84; RESP 14; TEMP 36.6; O2SAT 95
[2019-11-22 12:40] VITALS: BP 127/89; PULSE 88; RESP 18; TEMP 36.8; O2SAT 99
[2019-11-22 12:50] LABS: INR 2.7 (0.9-1.1); Prothrombin Time 26.3 sec (9.3-11.0)
[2019-11-22 13:12] VITALS: BP 127/89; PULSE 88; RESP 18; TEMP 36.8; O2SAT 99
--- NOTE | 2019-11-22 13:48 | W.PM.HP.N ---
Date of service: 11/22/19 Time of Service: 13:48 Assessment and Plan Assessment and plan (1) Acute deep vein thrombosis (DVT) of left lower extremity: Status: Acute Assessment and plan: Cont coumadin 15mg on MWF, 10 mg on TTSatSun Lovenox 70 mg SQ BID Pain management with lidoderm patch to L popliteal space. PRN oral Dilaudid. (2) History of factor V Leiden mutation: Status: Acute Assessment and plan: H/O multiple DVT's and P.E's. (3) Hypothyroidism: Status: Chronic Assessment and plan: Cont replacement tx. (4) Panic disorder: Status: Chronic Assessment and plan: Lorazepam prn She takes Clonazepam prn at home, but in the hospital, particularly now that she is isolted in a negative air flow room, she states that lorazepam is more helpful. (5) ADHD (attention deficit hyperactivity disorder), inattentive type: Status: Chronic Assessment and plan: Cont her routine methylphenidate. History of Present Illness History of Present Illness Chief Complaint: L leg pain Narrative: This is a 39 yo female with a significant PMH of Factor V Leiden def resulting in multiple BLE and RUE DVT's and pulmonary emboli, ADHD, Asthma, Depression, panic disorder, hypothyroidism, Migraine WILLETT's. She present with c/o LLE pain over the last week. She denies missing any doses of coumadin. Pain described as achy, tight. She is on coumadin chronically but has not checked an INR for 1 week. The pain is worse behind the knee but extends from the groin to the ankle. No CP, SOA, pleurisy, cough. She takes hydrocodone 7.5mg prn chronically for back and neck pain. She was seen in the ED the evening prior to this admission. Then, her INR was 1. Ultrasound noted a DVT extending from left femoral to mid calf level to mid calf level. She was discharged on her usual coumadin with a Lovenox bridge BID. The pain worsened so she re-presented to the ED. 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) Asthma (Chronic 11/08/12) B12 deficiency (Chronic) Cannabis abuse with cannabis-induced disorder (Chronic) Cellulitis of left leg (Resolved) Chronic anticoagulation (Chronic) Chronic back pain greater than 3 months duration (Chronic 12/29/14) Cyst of fallopian tube (Resolved) Depression (Chronic) Factor V Leiden mutation (Chronic) GERD (gastroesophageal reflux disease) (Chronic) Hematuria (Resolved) History of DVT (deep vein thrombosis) (Chronic) Hypothyroidism (Chronic) Intractable vomiting with nausea (Acute) Left buttock abscess (Resolved) Migraine headache (Chronic) Nephrolithiasis (Chronic) Panic disorder (Chronic 03/21/16) Preseptal cellulitis of left eye (Inactive) Recurrent deep vein thrombosis (DVT) (Chronic) Right lower quadrant abdominal pain (Resolved) inflamed/ruptured fallopian tube on the right 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) Vaginal candidiasis (Inactive) Surgical History Abdominal hysterectomy (~2009) 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) Arthroplasty of knee (~1999) left Bilateral salpingectomy with oophorectomy (~2008) Cervical Conization/LEEP LEEP 2003 [facility] 2003 Cholecystectomy S/P appendectomy (Acute 12/24/17) Dr Veliz - Car appy and lap excision of R fallopian tube remnant Status post cholecystectomy (Inactive) Status post LEEP (loop electrosurgical excision procedure) of cervix (Inactive) THUMB RECONSTRUCTION left; in childhood Social History Smoking/Tobacco Use Status: Never Alcohol Intake: current Alcohol Intake frequency: 0-2 drinks per day Drug use: Daily Substance use type: marijuana Do you feel safe at home: Yes Do you feel safe in your relationship?: Yes Additional Social history: Patient is and with one child. She denies any smoking or significant alcohol use, but admits to regular marijuana use. Meds Home Medications and Allergies Home Medications Medication Instructions Recorded Confirmed Type Citracal Plus Bone Density 1 ea PO BID tab-cap 11/09/12 11/22/19 History Space Chamber Plus #1 spacer 05/01/14 11/22/19 Rx cyproheptadine 4 mg PO HS #90 tab-cap 06/04/16 11/22/19 History Narcan 4 mg NS DAILY PRN PRN #2 spray 12/08/16 11/22/19 Rx ipratropium-albuterol 3 ml INHALATION Q4H PRN PRN #1 box 01/23/17 11/22/19 History MDD 6 times warfarin 5 mg tablet 0 - 10 mg PO HS PRN 90 Days #100 12/31/18 11/22/19 Rx tab-cap albuterol sulfate 1.25 mg/3 mL 1.25 mg INHALATION Q6H PRN #75 ml 01/12/19 11/22/19 Rx solution for nebulization albuterol sulfate 90 mcg/actuation 2 puff INHALATION Q6H PRN #3 01/12/19 11/22/19 Rx aerosol inhaler inhaler MDD 6 puffs fluticasone propionate 220 2 inh INHALATION BID #3 inhaler 01/12/19 11/22/19 Rx mcg/actuation HFA aerosol inhaler mupirocin 2 % topical ointment 1 applic TP BID #22 gm 01/12/19 11/22/19 Rx epinephrine 0.3 mg/0.3 mL 0.3 mg IM ONCE #1 ea 01/27/19 11/22/19 Rx injection, auto-injector acidophilus 25 million 2 tab PO TID #90 tab 05/29/19 11/22/19 Rx cell-pectin, citrus 100 mg tablet levothyroxine 100 mcg tablet 100 mcg PO QPM #90 tab 06/24/19 11/22/19 Rx valacyclovir 1 gram tablet 1,000 mg PO TID #35 tab 06/24/19 11/22/19 Rx alcohol swabs See Rx Instructions TP .COMPLEX 07/11/19 11/22/19 Rx #300 each clonazepam 1 mg tablet 1 mg PO TID PRN #90 tab 08/15/19 11/22/19 Rx clotrimazole-betamethasone 1 1 applic TOPICAL BID #45 gm 08/15/19 11/22/19 Rx %-0.05 % topical cream triamcinolone acetonide 0.1 % 1 applic TOPICAL BID PRN #60 gm 09/05/19 11/22/19 Rx topical cream omeprazole 40 mg capsule,delayed 40 mg PO DAILY PRN #90 cap 09/09/19 11/22/19 Rx release sumatriptan succinate 6 mg/0.5 mL 6 mg SUBCUT As directed #8 pen MDD 09/09/19 11/22/19 Rx subcutaneous pen injector 12 mg hydrocodone 7.5 mg-acetaminophen 1 tab PO BID PRN #60 tab MDD 2 tabs 09/23/19 11/22/19 Rx 325 mg tablet methylphenidate HCl 20 mg tablet 20 mg PO TID #84 tab-cap MDD 60 mg 10/20/19 11/22/19 Rx fexofenadine 180 mg tablet 180 mg PO DAILY #90 tab-cap 11/01/19 11/22/19 Rx Topamax 200 mg tablet 400 mg PO HS #180 tab NS 11/11/19 11/22/19 Rx divalproex 500 mg tablet,delayed 500 mg PO TID #90 tab 11/16/19 11/22/19 Rx release enoxaparin [Lovenox] 70 mg SC Q12H 7 Days #9.8 ml 11/21/19 11/22/19 Rx Allergies Allergy/AdvReac Type Severity Reaction Status Date / Time aripiprazole [From Abilify] Allergy Severe Rash, hives Verified 11/21/19 03:57 doxycycline Allergy Severe Anaphylaxsi Verified 11/21/19 03:57 s levetiracetam [From Keppra] Allergy Severe RASH/HIVES Verified 11/21/19 03:57 sulfamethoxazole Allergy Severe Hives Verified 11/21/19 03:57 venom-honey bee Allergy Severe unknown Verified 11/21/19 03:57 Penicillins Allergy Intermediate Skin Rash Verified 11/21/19 03:57 chlorhexidine Allergy Unknown unknown Verified 11/21/19 03:57 Sulfa (Sulfonamide Allergy Verified 11/21/19 03:57 Antibiotics) mold AdvReac Severe Wheezing Verified 11/21/19 03:57 oxycodone [Oxycodone] AdvReac Severe vomits Verified 11/21/19 03:57 paroxetine AdvReac Severe Irritability Verified 11/21/19 03:57 and anger dicloxacillin [Dicloxacillin] AdvReac Mild Nausea Verified 11/21/19 03:57 gabapentin AdvReac Mild hives Verified 11/21/19 03:57 prednisone AdvReac Agitation Verified 11/21/19 03:57 trazodone AdvReac shortness Verified 11/21/19 03:57 of breath verapamil [Verapamil] AdvReac Worsening Verified 11/21/19 03:57 migraine nuts Allergy Severe Anaphylaxsi Uncoded 11/21/19 03:57 s Exam Const General: cooperative, healthy appearing and no acute distress Nutritional Appearance: overweight Eyes Sclera: sclerae normal Pupils: PERRL Resp Effort & Inspection: normal respiratory effort Auscultation: clear to auscultation bilaterally Cardio Jugular venous pressure: no JVD Rate: regular rate Rhythm: regular rhythm Heart Sounds: S1 normal and S2 normal GI Inspection: normal to inspection Palpation: soft Auscultation: normal bowel sounds Skin General skin exam: no rashes or lesions noted Neuro General: patient alert, patient oriented x3 and moves all extremities Speech: speech normal Extrem General: normal to inspection, no joint enlargement and no clubbing, cyanosis or edema Other: Tenderness in left popliteal area. Results Labs Labs: Laboratory Results - last 24 hr 11/22/19 12:15 PT 26.3 H D INR 2.7 H D Last Vital Signs Temp 36.8 C 11/22/19 13:12 Pulse 88 11/22/19 13:12 Resp 18 11/22/19 13:12 BP 127/89 11/22/19 13:12 Pulse Ox 99 11/22/19 13:12 COVID-19 Screening Have you,or household,traveled outside [place] in last 14 days?: No Had IN PERSON contact w/suspected or confirmed C-19 person: No
--- NOTE | 2019-11-22 14:13 | PHACLINREV_ITS ---
Pharmacy Admission Review - Admission Clinical Review (Last Reviewed 11/22/19 @ 13:58 by Bry Murillo MD) Acute deep vein thrombosis (DVT) of left lower extremity (Acute) History of factor V Leiden mutation (Acute) aripiprazole [From Abilify] Allergy (Severe, Verified 11/21/19 03:57) Rash, hives doxycycline Allergy (Severe, Verified 11/21/19 03:57) Anaphylaxsis levetiracetam [From Keppra] Allergy (Severe, Verified 11/21/19 03:57) RASH/HIVES sulfamethoxazole Allergy (Severe, Verified 11/21/19 03:57) Hives venom-honey bee Allergy (Severe, Verified 11/21/19 03:57) unknown Penicillins Allergy (Intermediate, Verified 11/21/19 03:57) Skin Rash chlorhexidine Allergy (Unknown, Verified 11/21/19 03:57) unknown Sulfa (Sulfonamide Antibiotics) Allergy (Verified 11/21/19 03:57) mold Adverse Reaction (Severe, Verified 11/21/19 03:57) Wheezing oxycodone [Oxycodone] Adverse Reaction (Severe, Verified 11/21/19 03:57) vomits paroxetine Adverse Reaction (Severe, Verified 11/21/19 03:57) Irritability and anger dicloxacillin [Dicloxacillin] Adverse Reaction (Mild, Verified 11/21/19 03:57) Nausea gabapentin Adverse Reaction (Mild, Verified 11/21/19 03:57) hives prednisone Adverse Reaction (Verified 11/21/19 03:57) Agitation trazodone Adverse Reaction (Verified 11/21/19 03:57) shortness of breath verapamil [Verapamil] Adverse Reaction (Verified 11/21/19 03:57) Worsening migraine nuts Allergy (Severe, Uncoded 11/21/19 03:57) Anaphylaxsis Height 5 ft 1 in Weight 72.575 kg - Renal Dosing Medications needing adjustments: Reviewed (CrCl ~65.5 using adjusted BW, current meds okay) - Anticoagulation Anticoagulation: INR 2.7 (0.9-1.1) H D 11/22/19 12:15 DVT Prohphylaxis: Reviewed Medications: Enoxaparin Therapeutic Anticoagulation: Reviewed Medications: Warfarin (bridging with enoxaparin as INR was low prior to admission per MD) - Opiate Usage Evaluate Pain Scale/Pains Meds: Reviewed (Hydromorphone) Scheduled Bowel Reg ordered if on Opiates?: No (PRN Miralax ) - Relevant Labs Electrolytes, C-Reactive P, ESR: N/A (No labs so far this admission) - DM Control Insulin Dosing: N/A - Heart Failure/KY EF%, KACIE's, B-Blockers, Diuretics: N/A - BP Control BP Control: Blood Pressure 127/89 Blood Pressure 127/89 Blood Pressure 139/117 If elevated: N/A (BP good, was elevated upon admission but has normalized) - Qtc Review If Elevated: N/A (No recent EKG labs) - IV to PO Switch IV Medications: Reviewed - Home Meds Home Med List reviewed: Reviewed (multiple anticholinergic meds (recommended to avoid combination): cyproheptadine, fexofenadine, ipratropium. Multiple STITCHDOWN THREAD LASTER depressants: clonazepam, hydrocodone, cyproheptadine, fexofenadine, topiramate. Separate admin of calcium and levothyroxine) Relevent Home Meds Not ordered & why?: Acidophilus, Citracal, clonazepam (has order for lorazepam), clotrimazole-betamethasone, epinephrine, hydrocodone/APAP, flovent(has mometasone ordered), ipratropium/albuterol, mupirocin, sumatriptan, valacyclovir. Banophen seen on external med list, 25mg 4HS picked up on October 26 for 30 DS. Will mention to provider. - Current meds Current Medication Order Review: Reviewed (Watch for STITCHDOWN THREAD LASTER and respiratory depression (hydromorphone, lorazepam, topiramate), separate admin of omeprazole from levothyroxine (decrease levothyroxine efficacy)) - Comments Comments/Follow Ups: Monitor INR. Per MD, DVT noted on ultrasound in left leg, returned to ER today due to worsening pain. Watch for any med changes. Check in with nursing again about the timing of the methylphenidate, they were unable to get clear answer as to when pt takes at home.
[2019-11-22] MEDS: Divalproex 500 MG TABEC PO ×2 (14:41→20:10)
[2019-11-22] MEDS: HYDROmorphone 2 MG TAB PO ×2 (14:41→20:10)
[2019-11-22] MEDS: LORazepam 1 MG TAB PO ×2 (14:42→21:32)
[2019-11-22] MEDS: Methylphenidate 10 MG TAB 20 MG PO ×2 (14:43→20:10)
[2019-11-22] MEDS: LORazepam 2 MG/ML VIAL 1 MG IVP (15:34)
[2019-11-22] MEDS: Enoxaparin 80 MG/0.8 ML SYR 70 MG SC (15:34)
[2019-11-22] MEDS: Normal Saline Flush 10 ML SYR IVP (15:35)
[2019-11-22] MEDS: Warfarin 5 MG TAB 10 MG PO (20:10)
[2019-11-22] MEDS: Levothyroxine 100 MCG TAB PO (20:13)
[2019-11-22] MEDS: Cyproheptadine 4 MG TAB PO (21:32)
[2019-11-22] MEDS: Topiramate 100 MG TAB 400 MG PO (21:32)
[2019-11-22] MEDS: Mometasone 220 MCG 14 DOSE INHALER 2 PUFF IH (21:33)
[2019-11-22] MEDS: clonazePAM 1 MG TAB (22:30)
[2019-11-23 01:15] VITALS: BP 135/88; PULSE 98; RESP 16; TEMP 37.2; O2SAT 95
[2019-11-23] MEDS: Enoxaparin 80 MG/0.8 ML SYR 70 MG SC (03:14)
[2019-11-23 07:22] LABS: HCT 36.3 % (36.0-46.0); HGB 12.2 g/dL (11.2-15.7); MCHC 33.6 % (32.0-36.0); MCV 86.2 fL (80-95); Platelet Count 207 10^3/uL (130-400); RBC 4.21 10^6/uL (3.93-5.22); RDW 13.3 % (11.7-14.6); RDW-SD 41.9 fL; WBC 7.01 10^3/uL (4.4-10.8)
[2019-11-23 07:27] LABS: Prothrombin Time 29.6 sec (9.3-11.0)
[2019-11-23 08:19] LABS: COVID-19 RT-PCR UVMMC Result Negative (Negative)
[2019-11-23] MEDS: Methylphenidate 10 MG TAB 20 MG PO (08:32)
[2019-11-23] MEDS: clonazePAM 1 MG TAB PO (08:32)
[2019-11-23] MEDS: Fexofenadine 180 MG TAB PO (08:32)
[2019-11-23] MEDS: Divalproex 500 MG TABEC PO (08:32)
[2019-11-23] MEDS: Mometasone 220 MCG 14 DOSE INHALER 2 PUFF IH (08:33)
[2019-11-23] MEDS: HYDROmorphone 2 MG TAB PO (08:51)
[2019-11-23 08:53] VITALS: BP 132/88; PULSE 87; RESP 18; TEMP 36; O2SAT 100
--- NOTE | 2019-11-23 09:11 | W.PM.DS.N ---
Date of service: 11/23/19 Time of Service: 09:11 DS: Diagnosis Discharge Diagnosis (1) Acute deep vein thrombosis (DVT) of left lower extremity: Status: Acute (2) History of factor V Leiden mutation: Status: Acute (3) Hypothyroidism: Status: Chronic (4) Panic disorder: Status: Chronic (5) ADHD (attention deficit hyperactivity disorder), inattentive type: Status: Chronic Discharge Plan Disposition Patient Disposition: HOME Condition: Good Discharge Details Chief Complaint: GenMedical Reason For Visit: DVT LLE Admit Date/Time: 11/22/19 11:13 Admit Provider: Bry Murillo Attending Provider: Bry Murillo Primary Care Provider: Mikayla Reagan ED Provider: Gaviota Mendez [facility] Hospital Course: This is a 39 yo female with a significant PMH of Factor V Leiden def resulting in multiple BLE and RUE DVT's and pulmonary emboli, ADHD, Asthma, Depression, panic disorder, hypothyroidism, Migraine WILLETT's. She present with c/o LLE pain over the last week. She denies missing any doses of coumadin. Pain described as achy, tight. She is on coumadin chronically but has not checked an INR for 1 week. The pain is worse behind the knee but extends from the groin to the ankle. No CP, SOA, pleurisy, cough. She takes hydrocodone 7.5mg prn chronically for back and neck pain. She was seen in the ED the evening prior to this admission. Then, her INR was 1 on 11/20. On day of admission INR was 2.7. Ultrasound noted a DVT extending from left femoral to mid calf level to mid calf level. She was discharged on her usual coumadin with a Lovenox bridge BID. The pain worsened so she re-presented to the ED. Her pain was controlled on oral dilaudid; 2mg taken x 2. She was ambulating with less naila and felt she was ready for d/c. Her INR was 3.0. She has a home monitoring and follows instructions on dosing. On coumadin since age 13. Lovenox stopped. F/U with PCP in 1-2 weeks. Home Meds and New Rx's Prescriptions: New hydromorphone 2 mg Tablet 2 mg PO Q6H PRNQty: 10 RF: 0 Continued valacyclovir 1 gram tablet 1,000 mg PO TID Qty: 35 RF: 0 levothyroxine [Synthroid] 100 mcg tablet 100 mcg PO QPM Qty: 90 RF: 4 hydrocodone-acetaminophen 7.5-325 mg tablet 1 tab PO BID MDD 2 tabs PRN (Reason: pain) Qty: 60 RF: 0 topiramate [Topamax] 200 mg tablet 400 mg PO HS Qty: 180 RF: 4 Citracal Plus Bone Density 1 EACH tablet 1 ea PO BID RF: 0 cyproheptadine 4 MG tablet 4 mg PO HS Qty: 90 RF: 3 ipratropium-albuterol 3 ML solution for nebulization 3 ml Inhalation Q4H PRN MDD 6 times PRNQty: 1 RF: 0 warfarin [Coumadin] 5 mg tablet 0 - 10 mg PO HS PRN 90 Days Qty: 100 RF: 3 albuterol sulfate [ProAir HFA] 90 mcg/actuation HFA aerosol inhaler 2 puff Inhalation Q6H PRN MDD 6 puffs Qty: 3 RF: 4 albuterol sulfate 1.25 mg/3 mL solution for nebulization 1.25 mg Inhalation Q6H PRN (Reason: shortness of breath or wheezing) Qty: 75 RF: 3 Flovent HFA 220 mcg/actuation HFA aerosol inhaler 2 inh Inhalation BID Qty: 3 RF: 4 mupirocin 2 % ointment 1 applic TP BID Qty: 22 RF: 0 epinephrine [EpiPen 2-Nino] 0.3 mg/0.3 mL auto-injector 0.3 mg IM ONCE Qty: 1 RF: 1 acidophilus-pectin, citrus 25 million cell -100 mg tablet 2 tab PO TID Qty: 90 RF: 4 alcohol swabs [Alcohol Wipes] Pads, Medicated See Rx Instructions TP .COMPLEX Qty: 300 RF: 4 clonazepam 1 mg tablet 1 mg PO TID PRN (Reason: anxiety) Qty: 90 RF: 2 triamcinolone acetonide 0.1 % cream 1 applic Topical BID PRN (Reason: eczema) Qty: 60 RF: 1 omeprazole 40 mg capsule,delayed release(DR/EC) 40 mg PO DAILY PRN (Reason: GERD) Qty: 90 RF: 4 sumatriptan succinate 6 mg/0.5 mL pen injector 6 mg subcut As directed MDD 12 mg Qty: 8 RF: 5 methylphenidate HCl 20 mg tablet 20 mg PO TID MDD 60 mg Qty: 84 RF: 0 fexofenadine 180 mg tablet 180 mg PO DAILY Qty: 90 RF: 4 divalproex 500 mg tablet,delayed release (DR/EC) 500 mg PO TID Qty: 90 RF: 2 (DME) Space Chamber Plus 1 EACH spacer 1 ea Miscellaneous Q4H PRN Qty: 1 RF: 0 Narcan 4 MG spray,non-aerosol 4 mg NS DAILY PRN PRNQty: 2 RF: 0 Discontinued clotrimazole-betamethasone [Lotrisone] 1-0.05 % cream 1 applic Topical BID Qty: 45 RF: 1 enoxaparin [Lovenox] 60 mg/0.6 mL syringe 70 mg SC Q12H 7 Days Qty: 9.8 RF: 0 Discharge Instructions Instructions: Warfarin (By mouth) Activity:: Activity as Tolerated Equipment/Supplies:: No Equipment Needed Diet:: Normal Diet Discharge Orders Discharge Orders: Discharge Order (Routine); Ordered 11/23/19 Ordered By: Bry Murillo DS: Summary Status at Discharge Functional status at discharge: independent ambulation Overall status at discharge: patient is progressing back to baseline Mental Status: mental status grossly normal Speech and Movement: speech and movement normal Mood: congruent mood and anxious mood Affect: normal affect Exam Psych Mental Status: mental status grossly normal Speech and Movement: speech and movement normal Mood: congruent mood and anxious mood Affect: normal affect DS: Data Vitals/I&O Vitals and I&O: Vital Signs Temperature 36 C L 11/23/19 08:53 Temperature Source Tympanic 11/23/19 08:53 Pulse 87 11/23/19 08:53 Pulse Rhythm Regular 11/23/19 02:33 Respiratory Rate 18 11/23/19 08:53 Respiratory Effort Non-Labored 11/23/19 02:33 Respiratory Depth Normal 11/23/19 02:33 Respiratory Pattern Normal 11/23/19 02:33 Blood Pressure 132/88 11/23/19 08:53 Blood Pressure Position Sitting 11/22/19 10:30 Pulse Oximetry 100 11/23/19 08:53 Oxygen Delivery Method Room Air 11/23/19 08:53 Oxygen Flow Rate 0 11/23/19 08:53 Pain Level 12 11/23/19 08:53 Comment 11/23/19 08:53 Intake & Output 11/22/19 11/22/19 11/23/19 11:59 23:59 11:59 Intake Total 1300 / 1300 Balance 1300 / 1300 Weight 72.575 kg 72.575 kg Intake: IV Oral 1300 / 1300 Other: Urine Appearance Clear Clear Comment Per pt urine is usually dark in color, but doesn't have any burning with urination, increased frequency or pressure. pt reported that she voided a few times during the night. not seen by RN. Voiding Methods Toilet Data Completed and Pending Labs on day of discharge: Labs from last 24 hours 11/23/19 11/23/19 11/22/19 06:50 06:50 12:15 WBC 7.01 RBC 4.21 Hgb 12.2 Hct 36.3 MCV 86.2 MCH 29.0 MCHC 33.6 RDW 13.3 Plt Count 207 MPV 12.0 H PT 29.6 H 26.3 H D INR 3.0 H 2.7 H D COVID-19 PCR Nasopharyn COVID-19 PCR Ref Test Perform Site 11/22/19 12:06 WBC RBC Hgb Hct MCV MCH MCHC RDW Plt Count MPV PT INR COVID-19 PCR Negative Nasopharyn COVID-19 PCR Not Applicable Ref Test Perform Site [facility] Medical History ADHD (attention deficit hyperactivity disorder), 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) Asthma (Chronic 11/08/12) B12 deficiency (Chronic) Cannabis abuse with cannabis-induced disorder (Chronic) Cellulitis of left leg (Resolved) Chronic anticoagulation (Chronic) Chronic back pain greater than 3 months duration (Chronic 12/29/14) Cyst of fallopian tube (Resolved) Depression (Chronic) Factor V Leiden mutation (Chronic) GERD (gastroesophageal reflux disease) (Chronic) Hematuria (Resolved) History of DVT (deep vein thrombosis) (Chronic) Hypothyroidism (Chronic) Intractable vomiting with nausea (Acute) Left buttock abscess (Resolved) Migraine headache (Chronic) Nephrolithiasis (Chronic) Panic disorder (Chronic 03/21/16) Preseptal cellulitis of left eye (Inactive) Recurrent deep vein thrombosis (DVT) (Chronic) Right lower quadrant abdominal pain (Resolved) inflamed/ruptured fallopian tube on the right 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) Vaginal candidiasis (Inactive) Surgical History Abdominal hysterectomy (~2009) 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) Arthroplasty of knee (~1999) left Bilateral salpingectomy with oophorectomy (~2008) Cervical Conization/LEEP LEEP 2003 [facility] BX 2003 Cholecystectomy S/P appendectomy (Acute 12/24/17) Dr Veliz - Lap appy and lap excision of R fallopian tube remnant Status post cholecystectomy (Inactive) Status post LEEP (loop electrosurgical excision procedure) of cervix (Inactive) THUMB RECONSTRUCTION left; in childhood Social History Smoking/Tobacco Use Status: Never Alcohol Intake: current Alcohol Intake frequency: 0-2 drinks per day Drug use: Daily Substance use type: marijuana Do you feel safe at home: Yes Do you feel safe in your relationship?: Yes Additional Social history: Patient is and with one child. She denies any smoking or significant alcohol use, but admits to regular marijuana use.
== END 2019-11-23 09:58 | disposition home or self-care (01) ==
LOC: ER 11:18 → MS 12:32
PROVIDERS: Admitting Provider Family Medicine; Emergency Provider Physician Assistant; PCP Nurse Practitioner Family; Visit Provider Family Medicine
DX: I82.412 Acute embolism and thrombosis of left femoral vein (principal); D68.51 Activated protein C resistance; Z79.01 Long term (current) use of anticoagulants; J45.909 Unspecified asthma, uncomplicated; Z11.59 Encounter for screening for other viral diseases; E53.8 Deficiency of other specified B group vitamins; F32.9 Major depressive disorder, single episode, unspecified; K21.9 Gastro-esophageal reflux disease without esophagitis; Z86.718 Personal history of other venous thrombosis and embolism; E03.9 Hypothyroidism, unspecified; G43.909 Migraine, unspecified, not intractable, without status migrainosus; F41.0 Panic disorder [episodic paroxysmal anxiety]; F90.0 Attention-deficit hyperactivity disorder, predominantly inattentive type
CPT/HCPCS: 36415; 85027; 96374; 99217; 99219; 99285; U0003; 85610; 99284; G0378; J1650; J2060

== ENCOUNTER 2019-12-08 15:21 | Observation (INO) | payer MEDICARE, MEDICAID, SELFPAY ==
[2019-12-08] VITALS (7 sets, daily range): BP systolic 109–177; BP diastolic 68–95; PULSE 44–63; RESP 15–20; TEMP 36.7–37.1; O2SAT 99–100
--- NOTE | 2019-12-08 15:41 | W.ED.GENAD ---
Discharge Plan Disposition Patient Disposition: [facility] IN[facility]IENT Condition: Stable Discharge Details Chief Complaint: Nausea/Vomit/Diar Clinical Impression: Intractable nausea and vomiting Primary Care Provider: Mikayla Reagan ED Provider: Liliana Ku Home Meds and New Rx's Prescriptions: No Action valacyclovir 1 gram tablet 1,000 mg PO TID Qty: 35 RF: 0 levothyroxine [Synthroid] 100 mcg tablet 100 mcg PO QPM Qty: 90 RF: 4 hydromorphone 2 mg tablet 2 mg PO Q6H MDD 8 mg PRN (Reason: pain) Qty: 10 RF: 0 enoxaparin 80 mg/0.8 mL syringe 80 mg SC Q12H Qty: 8 RF: 4 hydrocodone-acetaminophen 7.5-325 mg tablet 1 tab PO BID MDD 2 tabs PRN (Reason: pain) Qty: 60 RF: 0 topiramate [Topamax] 200 mg tablet 400 mg PO HS Qty: 180 RF: 4 Citracal Plus Bone Density 1 EACH tablet 1 ea PO BID RF: 0 cyproheptadine 4 MG tablet 4 mg PO HS Qty: 90 RF: 3 ipratropium-albuterol 3 ML solution for nebulization 3 ml Inhalation Q4H PRN MDD 6 times PRNQty: 1 RF: 0 warfarin [Coumadin] 5 mg tablet 0 - 10 mg PO HS PRN 90 Days Qty: 100 RF: 3 albuterol sulfate [ProAir HFA] 90 mcg/actuation HFA aerosol inhaler 2 puff Inhalation Q6H PRN MDD 6 puffs Qty: 3 RF: 4 albuterol sulfate 1.25 mg/3 mL solution for nebulization 1.25 mg Inhalation Q6H PRN (Reason: shortness of breath or wheezing) Qty: 75 RF: 3 Flovent HFA 220 mcg/actuation HFA aerosol inhaler 2 inh Inhalation BID Qty: 3 RF: 4 mupirocin 2 % ointment 1 applic TP BID Qty: 22 RF: 0 epinephrine [EpiPen 2-Nino] 0.3 mg/0.3 mL auto-injector 0.3 mg IM ONCE Qty: 1 RF: 1 acidophilus-pectin, citrus 25 million cell -100 mg tablet 2 tab PO TID Qty: 90 RF: 4 alcohol swabs [Alcohol Wipes] Pads, Medicated See Rx Instructions TP .COMPLEX Qty: 300 RF: 4 triamcinolone acetonide 0.1 % cream 1 applic Topical BID PRN (Reason: eczema) Qty: 60 RF: 1 omeprazole 40 mg capsule,delayed release(DR/EC) 40 mg PO DAILY PRN (Reason: GERD) Qty: 90 RF: 4 sumatriptan succinate 6 mg/0.5 mL pen injector 6 mg subcut As directed MDD 12 mg Qty: 8 RF: 5 methylphenidate HCl 20 mg tablet 20 mg PO TID MDD 60 mg Qty: 84 RF: 0 fexofenadine 180 mg tablet 180 mg PO DAILY Qty: 90 RF: 4 divalproex 500 mg tablet,delayed release (DR/EC) 500 mg PO TID Qty: 90 RF: 2 clonazepam 1 mg tablet 1 mg PO TID PRN (Reason: anxiety) Qty: 90 RF: 2 (DME) Space Chamber Plus 1 EACH spacer 1 ea Miscellaneous Q4H PRN Qty: 1 RF: 0 Narcan 4 MG spray,non-aerosol 4 mg NS DAILY PRN PRNQty: 2 RF: 0 Medical Decision Making 1530 -- 39-year-old female well-known to the emergency department with multiple medical problems including factor V Leiden deficiency with recent extensive left leg DVT on Lovenox presents for vomiting for the past 4 days, most specifically after taking her morning doses of Lovenox. BP hypertensive. She appears nontoxic but quite uncomfortable and pale. She is dry heaving and vomiting bile in vomitus bag. Her lungs are clear, oxygen saturation 100%. Her abdomen is soft but tender in upper quadrants. Doubt PE as she is anticoagulated on Lovenox. She has been seen in the ER and admitted multiple times for intractable vomiting. She is on multiple medications. Will check screening labs, urinalysis and give fluids, Phenergan and reassess. 1630 -- no relief with Phenergan. Will give a dose of Haldol. Labs reviewed and unremarkable. Normal white blood cell count and electrolytes. Troponin negative. 172 -- no relief with Haldol, will give a dose of Dilaudid and Compazine. 1814 --patient appears slightly more comfortable. She is still complaining of nausea and pain. Reassessment of abdomen is soft and nontender. Heart rate 40s. EKG obtained which notes sinus bradycardia with no acute ST T wave ischemic changes. Suspect likely vasovagal. Blood pressure remains within normal limits. Will admit patient for intractable nausea and vomiting. 1839 --Case discussed with hospitalist who accepts patient for admission. Medical Records Medical records reviewed: Yes I reviewed the patient's medical records. Lab Data Lab results reviewed: Yes I reviewed the patient's lab results. Labs: Laboratory Tests Range/Units 12/08/19 12/08/19 12/08/19 15:35 15:35 15:35 WBC (4.4-10.8) 10^3/uL 8.97 RBC (3.93-5.22) 10^6/uL 4.67 Hgb (11.2-15.7) g/dL 13.5 Hct (36.0-46.0) % 40.0 MCV (80-95) fL 85.7 MCH (27.0-33.0) pg 28.9 MCHC (32.0-36.0) % 33.8 RDW (11.7-14.6) % 13.9 Plt Count (130-400) 10^3/uL 278 MPV (8.0-11.0) fL 11.2 H Immature Gran % 0.4 Neutrophils % 85.5 Lymphocytes % 10.6 Monocytes % 3.1 Eosinophils % 0.1 Basophils % 0.3 Nucleated RBC % % 0 Absolute Neutrophils (1.2-6.7) 10^3/uL 7.66 H Absolute Lymphocytes (1.2-3.4) 10^3/uL 0.95 L Absolute Monocytes (0.1-0.8) 10^3/uL 0.28 Absolute Eosinophils (0.0-0.7) 10^3/uL 0.01 Absolute Basophils (0.0-0.2) 10^3/uL 0.03 PT (9.3-11.0) sec 10.4 INR (0.9-1.1) 1.0 APTT (21.0-31.4) sec 27.4 Sodium (136-145) mmol/L 142 Potassium (3.5-5.1) mmol/L 3.5 Chloride (98-107) mmol/L 107 Carbon Dioxide (21.0-32.0) mmol/L 23.5 Anion Gap (3-11) mmol/L 11.5 H BUN (7-18) mg/dL 6 L Creatinine (0.55-1.02) mg/dL 0.99 Estimated GFR/1.73 m2 (mL/min/1.73m2) >= 60.00 Glucose (74-106) mg/dL 123 H Calcium (8.5-10.1) mg/dL 8.9 Magnesium (1.8-2.4) mg/dL 1.9 Total Bilirubin (0.2-1.0) mg/dL 0.4 AST (15-37) U/L 17 ALT (14-59) U/L 22 Alkaline Phosphatase (46-116) U/L 48 Troponin I (<0.06) ng/mL < 0.05 Total Protein (6.4-8.2) g/dL 7.8 Albumin (3.4-5.0) g/dL 4.2 ECG Data Attestation: I personally reviewed and interpreted this ECG (s) as follows: Interpretation: Rate of 47, sinus, no acute ST elevation or depression. IN 158. QRS 83. QTc 424. HPI General Mode of arrival: ambulatory. Date/Time Provider Initiated Documentation: 12/08/19 15:25. Limitations to Documentation: no limitations. Information obtained by: patient. HPI Narrative: Pt is a 39yo F with a history of factor V Leiden deficiency who presents to the ED w/ a c/o vomiting for the past 4 days. She states she has mainly been vomiting bile. She was diagnosed with extensive left leg DVT earlier this month and her Coumadin was stopped and she was started on Lovenox. She feels that she has been vomiting starting every morning after her dose of Lovenox injection. She now admits to having pain in her lungs and upper abdomen after forceful vomiting. She denies any specific shortness of breath, fever, diarrhea. She took Zofran and Phenergan today without relief. Related Data Home Medications Medication Instructions Recorded Confirmed Citracal Plus Bone Density 1 ea PO BID tab-cap 11/09/12 12/08/19 Space Chamber Plus #1 spacer 05/01/14 12/08/19 cyproheptadine 4 mg PO HS #90 tab-cap 06/04/16 12/08/19 Narcan 4 mg NS DAILY PRN PRN #2 spray 12/08/16 12/08/19 ipratropium-albuterol 3 ml INHALATION Q4H PRN PRN #1 box 01/23/17 12/08/19 MDD 6 times warfarin 5 mg tablet 0 - 10 mg PO HS PRN 90 Days #100 12/31/18 12/08/19 tab-cap albuterol sulfate 1.25 mg/3 mL 1.25 mg INHALATION Q6H PRN #75 ml 01/12/19 12/08/19 solution for nebulization albuterol sulfate 90 mcg/actuation 2 puff INHALATION Q6H PRN #3 01/12/19 12/08/19 aerosol inhaler inhaler MDD 6 puffs fluticasone propionate 220 2 inh INHALATION BID #3 inhaler 01/12/19 12/08/19 mcg/actuation HFA aerosol inhaler mupirocin 2 % topical ointment 1 applic TP BID #22 gm 01/12/19 12/08/19 epinephrine 0.3 mg/0.3 mL 0.3 mg IM ONCE #1 ea 01/27/19 12/08/19 injection, auto-injector acidophilus 25 million 2 tab PO TID #90 tab 05/29/19 12/08/19 cell-pectin, citrus 100 mg tablet levothyroxine 100 mcg tablet 100 mcg PO QPM #90 tab 06/24/19 12/08/19 valacyclovir 1 gram tablet 1,000 mg PO TID #35 tab 06/24/19 12/08/19 alcohol swabs See Rx Instructions TP .COMPLEX 07/11/19 12/08/19 #300 each triamcinolone acetonide 0.1 % 1 applic TOPICAL BID PRN #60 gm 09/05/19 12/08/19 topical cream omeprazole 40 mg capsule,delayed 40 mg PO DAILY PRN #90 cap 09/09/19 12/08/19 release sumatriptan succinate 6 mg/0.5 mL 6 mg SUBCUT As directed #8 pen MDD 09/09/19 12/08/19 subcutaneous pen injector 12 mg hydrocodone 7.5 mg-acetaminophen 1 tab PO BID PRN #60 tab MDD 2 tabs 09/23/19 12/08/19 325 mg tablet methylphenidate HCl 20 mg tablet 20 mg PO TID #84 tab-cap MDD 60 mg 10/20/19 12/08/19 fexofenadine 180 mg tablet 180 mg PO DAILY #90 tab-cap 11/01/19 12/08/19 Topamax 200 mg tablet 400 mg PO HS #180 tab NS 11/11/19 12/08/19 divalproex 500 mg tablet,delayed 500 mg PO TID #90 tab 11/16/19 12/08/19 release enoxaparin 80 mg/0.8 mL 80 mg SC Q12H #8 ml 11/25/19 12/08/19 subcutaneous syringe hydromorphone 2 mg tablet 2 mg PO Q6H PRN #10 tab MDD 8 mg 11/25/19 12/08/19 clonazepam 1 mg tablet 1 mg PO TID PRN #90 tab 12/06/19 12/08/19 Previous Rx's Medication Instructions Recorded Space Chamber Plus #1 spacer 05/01/14 Narcan 4 mg NS DAILY PRN PRN #2 spray 12/08/16 warfarin 5 mg tablet 0 - 10 mg PO HS PRN 90 Days #100 12/31/18 tab-cap albuterol sulfate 1.25 mg/3 mL 1.25 mg INHALATION Q6H PRN #75 ml 01/12/19 solution for nebulization albuterol sulfate 90 mcg/actuation 2 puff INHALATION Q6H PRN #3 01/12/19 aerosol inhaler inhaler MDD 6 puffs fluticasone propionate 220 2 inh INHALATION BID #3 inhaler 01/12/19 mcg/actuation HFA aerosol inhaler mupirocin 2 % topical ointment 1 applic TP BID #22 gm 01/12/19 epinephrine 0.3 mg/0.3 mL 0.3 mg IM ONCE #1 ea 01/27/19 injection, auto-injector acidophilus 25 million 2 tab PO TID #90 tab 05/29/19 cell-pectin, citrus 100 mg tablet levothyroxine 100 mcg tablet 100 mcg PO QPM #90 tab 06/24/19 valacyclovir 1 gram tablet 1,000 mg PO TID #35 tab 06/24/19 alcohol swabs See Rx Instructions TP .COMPLEX 07/11/19 #300 each triamcinolone acetonide 0.1 % 1 applic TOPICAL BID PRN #60 gm 09/05/19 topical cream omeprazole 40 mg capsule,delayed 40 mg PO DAILY PRN #90 cap 09/09/19 release sumatriptan succinate 6 mg/0.5 mL 6 mg SUBCUT As directed #8 pen MDD 09/09/19 subcutaneous pen injector 12 mg hydrocodone 7.5 mg-acetaminophen 1 tab PO BID PRN #60 tab MDD 2 tabs 09/23/19 325 mg tablet methylphenidate HCl 20 mg tablet 20 mg PO TID #84 tab-cap MDD 60 mg 10/20/19 fexofenadine 180 mg tablet 180 mg PO DAILY #90 tab-cap 11/01/19 Topamax 200 mg tablet 400 mg PO HS #180 tab NS 11/11/19 divalproex 500 mg tablet,delayed 500 mg PO TID #90 tab 11/16/19 release enoxaparin 80 mg/0.8 mL 80 mg SC Q12H #8 ml 11/25/19 subcutaneous syringe hydromorphone 2 mg tablet 2 mg PO Q6H PRN #10 tab MDD 8 mg 11/25/19 clonazepam 1 mg tablet 1 mg PO TID PRN #90 tab 12/06/19 Allergies Allergy/AdvReac Type Severity Reaction Status Date / Time aripiprazole [From Abilify] Allergy Severe Rash, hives Verified 12/08/19 15:29 doxycycline Allergy Severe Anaphylaxsi Verified 12/08/19 15:29 s levetiracetam [From Keppra] Allergy Severe RASH/HIVES Verified 12/08/19 15:29 sulfamethoxazole Allergy Severe Hives Verified 12/08/19 15:29 venom-honey bee Allergy Severe unknown Verified 12/08/19 15:29 Penicillins Allergy Intermediate Skin Rash Verified 12/08/19 15:29 chlorhexidine Allergy Unknown unknown Verified 12/08/19 15:29 Sulfa (Sulfonamide Allergy Verified 12/08/19 15:29 Antibiotics) mold AdvReac Severe Wheezing Verified 12/08/19 15:29 oxycodone [Oxycodone] AdvReac Severe vomits Verified 12/08/19 15:29 paroxetine AdvReac Severe Irritability Verified 12/08/19 15:29 and anger dicloxacillin [Dicloxacillin] AdvReac Mild Nausea Verified 12/08/19 15:29 gabapentin AdvReac Mild hives Verified 12/08/19 15:29 prednisone AdvReac Agitation Verified 12/08/19 15:29 trazodone AdvReac shortness Verified 12/08/19 15:29 of breath verapamil [Verapamil] AdvReac Worsening Verified 12/08/19 15:29 migraine nuts Allergy Severe Anaphylaxsi Uncoded 12/08/19 15:29 s General Stated Complaint: Nausea/Vomit/Diar RYNE: 3 Review of Systems All systems reviewed & are unremarkable except as noted in HPI and below Constitutional Constitutional: Reports as per HPI, Denies chills and Denies fever(s) Eyes Eyes: Denies blurry vision ENT Ears, Nose, Mouth, and Throat: Denies dizziness, Denies sore throat and Denies throat swelling Cardiovascular Cardiovascular: Denies chest pain and Denies dyspnea Respiratory Respiratory: Denies cough and Denies dyspnea Gastrointestinal Gastrointestinal: Reports abdominal pain, Denies diarrhea and Reports vomiting Genitourinary Genitourinary: Denies hematuria and Denies dysuria Musculoskeletal Musculoskeletal: Denies back pain and Denies numbness Integumentary/Breasts Skin/Breast: Denies lesions and Denies rash Neurologic Neurologic: Denies dizziness, Denies localized weakness and Denies numbness Allergic/Immunologic Allergic/Immunologic: Denies throat swelling [facility] Medical History ADHD (attention deficit hyperactivity disorder), 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) Asthma (Chronic 11/08/12) B12 deficiency (Chronic) Cannabis abuse with cannabis-induced disorder (Chronic) Cellulitis of left leg (Resolved) Chronic anticoagulation (Chronic) Chronic back pain greater than 3 months duration (Chronic 12/29/14) Cyst of fallopian tube (Resolved) Depression (Chronic) Factor V Leiden mutation (Chronic) GERD (gastroesophageal reflux disease) (Chronic) Hematuria (Resolved) History of DVT (deep vein thrombosis) (Chronic) Hypothyroidism (Chronic) Intractable vomiting with nausea (Acute) Left buttock abscess (Resolved) Migraine headache (Chronic) Nephrolithiasis (Chronic) Panic disorder (Chronic 03/21/16) Preseptal cellulitis of left eye (Inactive) Recurrent deep vein thrombosis (DVT) (Chronic) Right lower quadrant abdominal pain (Resolved) inflamed/ruptured fallopian tube on the right 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) Vaginal candidiasis (Inactive) Surgical History Abdominal hysterectomy (~2009) 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) Arthroplasty of knee (~1999) left Bilateral salpingectomy with oophorectomy (~2008) Cervical Conization/LEEP LEEP 2002 [facility] BX 2002 Cholecystectomy S/P appendectomy (Acute 12/24/17) Dr Veliz - Lap appy and lap excision of R fallopian tube remnant Status post cholecystectomy (Inactive) Status post LEEP (loop electrosurgical excision procedure) of cervix (Inactive) THUMB RECONSTRUCTION left; in childhood Social History Smoking/Tobacco Use Status: Never Alcohol Intake: current Alcohol Intake frequency: 0-2 drinks per day Drug use: Daily Substance use type: marijuana Do you feel safe at home: Yes Do you feel safe in your relationship?: Yes Additional Social history: Patient is and with one child. She denies any smoking or significant alcohol use, but admits to regular marijuana use. Exam Const General: cooperative and in distress (moaning, vomiting, dry heaving) Orientation: alert, awake and oriented x3 HENMT Head: normal to inspection Face and sinus: normal facial exam Eyes General: appearance normal, both eyes and all related structures EOM: EOM intact bilaterally Neck Neck: normal visual inspection and No submandibular swelling Lymphatic: no lymphadenopathy noted Chest Chest: normal inspection of the chest and no tenderness Resp Effort & Inspection: normal respiratory effort and able to speak in complete sentences Auscultation: clear to auscultation bilaterally Cardio Rate: regular rate Rhythm: regular rhythm GI Inspection: normal to inspection Palpation: soft, not firm, not rigid and tender in the epigastrum Auscultation: normal bowel sounds Back/Spine/Pelvis Thoracic/Lumbar Spine: thoracic and lumbar spine normal to inspection Pelvis: no pain with anterior-posterior compression Skin General skin exam: no rashes or lesions noted Neuro General: patient alert, patient awake and patient oriented x3 Cognition: normal cognition Speech: speech normal Motor: muscle tone normal throughout Sensory Exam: no sensory deficits noted Extrem General: normal to inspection, full ROM, capillary refill normal, no calf tenderness bilaterally and no edema Psych Appearance: grossly normal Mental Status: mental status grossly normal Speech and Movement: speech and movement normal Affect: normal affect Course Vital Signs Vital signs: Vital Signs Temperature 98.1 F 12/08/19 15:25 Pulse 63 12/08/19 15:25 Respiratory Rate 18 12/08/19 15:25 Blood Pressure 177/92 H 12/08/19 15:25 Pulse Oximetry 100 12/08/19 15:25 Temperature 98.1 F 12/08/19 15:25 Temperature Source Skin 12/08/19 15:25 Pulse 63 12/08/19 15:25 Respiratory Rate 18 12/08/19 15:25 Respiratory Effort 12/08/19 15:29 Blood Pressure 177/92 H 12/08/19 15:25 Blood Pressure Position Sitting 12/08/19 15:25 Pulse Oximetry 100 12/08/19 15:25 Oxygen Delivery Method Room Air 12/08/19 15:25 Oxygen Flow Rate 0 12/08/19 15:25 Pain Level 10 12/08/19 15:25
[2019-12-08] MEDS: Normal Saline 1,000 ML 1000 ML IV ×2 (15:46→17:52)
[2019-12-08 15:52] LABS: Abs Immature Grans 0.04 10^3/uL (0.0-0.06); Absolute Basophil Count 0.03 10^3/uL (0.0-0.2); Absolute Eosinophil Count 0.01 10^3/uL (0.0-0.7); Absolute Lymphocyte Count 0.95 10^3/uL (1.2-3.4); Absolute Monocyte Count 0.28 10^3/uL (0.1-0.8); Absolute Neutrophil Count 7.66 10^3/uL (1.2-6.7); Basophils % 0.3; Eosinophils % 0.1; HGB 13.5 g/dL (11.2-15.7); Immature Grans % 0.4; Lymphocytes % 10.6; MCH 28.9 pg (27.0-33.0); MCHC 33.8 % (32.0-36.0); MCV 85.7 fL (80-95); MPV 11.2 fL (8.0-11.0); Monocytes % 3.1; Neutrophils % 85.5; Nucleated RBC 0 %; Platelet Count 278 10^3/uL (130-400); RBC 4.67 10^6/uL (3.93-5.22); RDW 13.9 % (11.7-14.6); RDW-SD 42.6 fL; WBC 8.97 10^3/uL (4.4-10.8)
[2019-12-08 16:03] LABS: PTT Activated 27.4 sec (21.0-31.4); Prothrombin Time 10.4 sec (9.3-11.0)
[2019-12-08 16:08] LABS: ALT 22 U/L (14-59); AST 17 U/L (15-37); Albumin 4.2 g/dL (3.4-5.0); Alkaline Phosphatase 48 U/L (46-116); Anion Gap 11.5 mmol/L (3-11); BUN 6 mg/dL (7-18); Bilirubin, Total 0.4 mg/dL (0.2-1.0); CO2 23.5 mmol/L (21.0-32.0); CREATININE 0.99 mg/dL (0.55-1.02); Calcium 8.9 mg/dL (8.5-10.1); Chloride 107 mmol/L (98-107); Glucose 123 mg/dL (74-106); Magnesium 1.9 mg/dL (1.8-2.4); Potassium 3.5 mmol/L (3.5-5.1); Sodium 142 mmol/L (136-145); Total Protein 7.8 g/dL (6.4-8.2)
[2019-12-08 16:10] LABS: Troponin I < 0.05 ng/mL (<0.06)
[2019-12-08] MEDS: Haloperidol 5 MG/ML VIAL 2 MG IV (16:21)
--- NOTE | 2019-12-08 16:41 | NUR.NOTE ---
vomited approx 30mls since arrival to ED. sitting on side of stretcher holding emesis bag. c/o nausea and severe abd pain. eyes closed, respirations even and unlabored. states she cannot give a urine spec due to being incontinent from vomiting. warm blankets provided
[2019-12-08] MEDS: HYDROmorphone 2 MG/ML VIAL 1 MG IVP ×2 (17:32→21:45)
[2019-12-08] MEDS: Prochlorperazine 10 MG/2 ML VIAL IVP (17:40)
[2019-12-08] MEDS: Normal Saline 50 ML (17:51)
--- NOTE | 2019-12-08 18:15 | RT.EKG_ITS ---
APPROVED REPORT Exam: Resting ECG Patient Location: E HR:47 bpm ECG Measurements Heart Rate 47 AXIS SD 158 P 47 QRSd 83 QRS -3 QT 480 T 57 QTc 424 Conclusion Sinus bradycardia...rate< 60 Low voltage, extremity and precordial leads...extremity<0.5mV, precordial<1.0mV Anteroseptal infarct, old...Q >40mS, V1-V2. I have reviewed and interpreted ECG and agree with software generated interpretation.
--- NOTE | 2019-12-08 18:47 | NUR.NOTE ---
resting quietly, respirations even and unlabored.
--- NOTE | 2019-12-08 19:16 | HPE_ITS ---
Date of service: 12/08/19 Time of Service: 19:16 Assessment and Plan Assessment and plan (1) Intractable nausea and vomiting: Start date: 12/08/19 Status: Acute Assessment and plan: This is a 39-year-old lady who has continued problems with chronic pain and migraine headaches who presented to the ED with intractable vomiting and was admitted for IV hydration and continued parenteral treatment of her nausea. We will trial Reglan and bowel rest with IV hydration. Pain control will be continued with IV Dilaudid. She has had recurrent issues with the same problem and we would try to break the cycle and have her return home on oral therapy. By reviewing her labs she may not be taking her medicine consistently with her TSH is elevated with a low free T4 which may need to be addressed long-term as an outpatient. Chronic pain and psychiatric disease with multiple medical therapies do complicate this recurrent problem. It is not thought that her marijuana use is the main contributor though it may have some effect. She needs to review use of THC and make sure that her dosing has a more apppropriate combination of THC and CBD to avoid inducing increased nausea. (2) Chronic back pain greater than 3 months duration: Status: Chronic Assessment and plan: Continue IV Dilaudid for pain control for now. She is also on benzodiazepines and respiratory suppression needs to be watched closely. At home she has Narcan. (3) Factor V Leiden mutation: Status: Chronic Assessment and plan: Patient recently has switched from Coumadin to L ovenox and she associates some of her nausea to Lovenox injections. This can be reviewed by her bicycle repairman. (4) Hypothyroidism: Status: Chronic Assessment and plan: Patient's TSH is elevated with a low free T4 upon admission and her dosing needs to be reevaluated. This may be a consequence of noncompliance with consistent daily dosing with the patient having nausea recently. With the TSH being elevated, this may be more of a chronic non- compliance problem. Qualifiers: Hypothyroidism type: acquired Qualified Code(s): E03.9 - Hypothyroidism, unspecified History of Present Illness History of Present Illness Chief Complaint: Intractable emesis Narrative: This is a 39-year-old female patient that for conditions for hyperemesis. This event she states began the morning of admission after she had a headache and then treated the headache but the emesis persisted. She also relates her increased nausea to switching to Lovenox dosing twice daily instead of Coumadin because of recurrent large DVT of her left lower extremity. She also mentions factor V was pulled and her lung. She has a flattened affect and appears to be a poor historian with multiple somatic complaints with PTSD. In the ED multiple antiemetics (Phenergan, Haldol, Compazine and 1 dose of Reglan) were used without effect and the patient was admitted for continued hyperemesis. It was thought at one time she may have hyperemesis cannabinoid but she continues as well. She does take Topamax for migraine suppression and she states that her new migraine headaches do work well but her nausea is a consequence. This may have been more of the affect today patient also has chronic pain with oral Dilaudid this was switched to intravenous for the night. She also was given IV fluids for hydration which will be continued. Review of Systems Narrative: 13 point review of systems otherwise unrevealing or stable. 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) Asthma (Chronic 11/08/12) B12 deficiency (Chronic) Cannabis abuse with cannabis-induced disorder (Chronic) Cellulitis of left leg (Resolved) Chronic anticoagulation (Chronic) Chronic back pain greater than 3 months duration (Chronic 12/29/14) Cyst of fallopian tube (Resolved) Depression (Chronic) Factor V Leiden mutation (Chronic) GERD (gastroesophageal reflux disease) (Chronic) Hematuria (Resolved) History of DVT (deep vein thrombosis) (Chronic) Hypothyroidism (Chronic) Intractable vomiting with nausea (Acute) Left buttock abscess (Resolved) Migraine headache (Chronic) Nephrolithiasis (Chronic) Panic disorder (Chronic 03/21/16) Preseptal cellulitis of left eye (Inactive) Recurrent deep vein thrombosis (DVT) (Chronic) Right lower quadrant abdominal pain (Resolved) inflamed/ruptured fallopian tube on the right 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) Vaginal candidiasis (Inactive) Surgical History Abdominal hysterectomy (~2009) 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) Arthroplasty of knee (~1999) left Bilateral salpingectomy with oophorectomy (~2008) Cervical Conization/LEEP LEEP 2003 CONE BX 2003 Cholecystectomy S/P appendectomy (Acute 12/24/17) Dr Veliz - Lap appy and lap excision of R fallopian tube remnant Status post cholecystectomy (Inactive) Status post LEEP (loop electrosurgical excision procedure) of cervix (Inactive) THUMB RECONSTRUCTION left; in childhood Social History Smoking/Tobacco Use Status: Never Alcohol Intake: current Alcohol Intake frequency: 0-2 drinks per day Drug use: Daily Substance use type: marijuana Do you feel safe at home: Yes Do you feel safe in your relationship?: Yes Additional Social history: Patient is and with one child. She denies any smoking or significant alcohol use, but admits to regular marijuana use. Meds Home Medications and Allergies Home Medications Medication Instructions Recorded Confirmed Type Citracal Plus Bone Density 1 ea PO BID tab-cap 11/09/12 12/08/19 History Space Chamber Plus #1 spacer 05/01/14 12/08/19 Rx cyproheptadine 4 mg PO HS #90 tab-cap 06/04/16 12/08/19 History Narcan 4 mg NS DAILY PRN PRN #2 spray 12/08/16 12/08/19 Rx ipratropium-albuterol 3 ml INHALATION Q4H PRN PRN #1 box 01/23/17 12/08/19 History MDD 6 times warfarin 5 mg tablet 0 - 10 mg PO HS PRN 90 Days #100 12/31/18 12/08/19 Rx tab-cap albuterol sulfate 1.25 mg/3 mL 1.25 mg INHALATION Q6H PRN #75 ml 01/12/19 12/08/19 Rx solution for nebulization albuterol sulfate 90 mcg/actuation 2 puff INHALATION Q6H PRN #3 01/12/19 12/08/19 Rx aerosol inhaler inhaler MDD 6 puffs fluticasone propionate 220 2 inh INHALATION BID #3 inhaler 01/12/19 12/08/19 Rx mcg/actuation HFA aerosol inhaler mupirocin 2 % topical ointment 1 applic TP BID #22 gm 01/12/19 12/08/19 Rx epinephrine 0.3 mg/0.3 mL 0.3 mg IM ONCE #1 ea 01/27/19 12/08/19 Rx injection, auto-injector acidophilus 25 million 2 tab PO TID #90 tab 05/29/19 12/08/19 Rx cell-pectin, citrus 100 mg tablet levothyroxine 100 mcg tablet 100 mcg PO QPM #90 tab 06/24/19 12/08/19 Rx valacyclovir 1 gram tablet 1,000 mg PO TID #35 tab 06/24/19 12/08/19 Rx alcohol swabs See Rx Instructions TP .COMPLEX 07/11/19 12/08/19 Rx #300 each triamcinolone acetonide 0.1 % 1 applic TOPICAL BID PRN #60 gm 09/05/19 12/08/19 Rx topical cream omeprazole 40 mg capsule,delayed 40 mg PO DAILY PRN #90 cap 09/09/19 12/08/19 Rx release sumatriptan succinate 6 mg/0.5 mL 6 mg SUBCUT As directed #8 pen MDD 09/09/19 12/08/19 Rx subcutaneous pen injector 12 mg hydrocodone 7.5 mg-acetaminophen 1 tab PO BID PRN #60 tab MDD 2 tabs 09/23/19 12/08/19 Rx 325 mg tablet methylphenidate HCl 20 mg tablet 20 mg PO TID #84 tab-cap MDD 60 mg 10/20/19 12/08/19 Rx fexofenadine 180 mg tablet 180 mg PO DAILY #90 tab-cap 11/01/19 12/08/19 Rx Topamax 200 mg tablet 400 mg PO HS #180 tab NS 11/11/19 12/08/19 Rx divalproex 500 mg tablet,delayed 500 mg PO TID #90 tab 11/16/19 12/08/19 Rx release enoxaparin 80 mg/0.8 mL 80 mg SC Q12H #8 ml 11/25/19 12/08/19 Rx subcutaneous syringe hydromorphone 2 mg tablet 2 mg PO Q6H PRN #10 tab MDD 8 mg 11/25/19 12/08/19 Rx clonazepam 1 mg tablet 1 mg PO TID PRN #90 tab 12/06/19 12/08/19 Rx Allergies Allergy/AdvReac Type Severity Reaction Status Date / Time aripiprazole [From [facility]] Allergy Severe Rash, hives Verified 12/08/19 15:29 doxycycline Allergy Severe Anaphylaxsi Verified 12/08/19 15:29 s levetiracetam [From [facility]] Allergy Severe RASH/HIVES Verified 12/08/19 15:29 sulfamethoxazole Allergy Severe Hives Verified 12/08/19 15:29 venom-honey bee Allergy Severe unknown Verified 12/08/19 15:29 Penicillins Allergy Intermediate Skin Rash Verified 12/08/19 15:29 chlorhexidine Allergy Unknown unknown Verified 12/08/19 15:29 Sulfa (Sulfonamide Allergy Verified 12/08/19 15:29 Antibiotics) mold AdvReac Severe Wheezing Verified 12/08/19 15:29 oxycodone [Oxycodone] AdvReac Severe vomits Verified 12/08/19 15:29 paroxetine AdvReac Severe Irritability Verified 12/08/19 15:29 and anger dicloxacillin [Dicloxacillin] AdvReac Mild Nausea Verified 12/08/19 15:29 gabapentin AdvReac Mild hives Verified 12/08/19 15:29 prednisone AdvReac Agitation Verified 12/08/19 15:29 trazodone AdvReac shortness Verified 12/08/19 15:29 of breath verapamil [Verapamil] AdvReac Worsening Verified 12/08/19 15:29 migraine nuts Allergy Severe Anaphylaxsi Uncoded 12/08/19 15:29 s Exam Narrative Exam Narrative: General: Patient appears older than stated age, flattened affect with poor eye contact and monotonous slow voice. She is alert and oriented to person place and time. She is in moderate distress from her nausea holding her antiemetic bag on her chest. HEENT: Normocephalic, eyes with pupils equal and reactive to light symmetrically, extraocular movement intact and sclera anicteric. Oropharynx with dry oral mucosa and fair dentition. External ears and nose normal. Neck: Supple without JVD. Lungs: Poor aeration with increased expiratory phase and expiratory wheeze diffusely with associated rhonchi but no focalized inspiratory rales. Patient does have a dry cough. There is no intercostal retractions. Heart: Regular rate and rhythm with no murmurs or gallops appreciated. Breast: Exam deferred. Abdomen: Soft, nontender with bowel sounds hypoactive but present in all quadrants. No guarding or tympany. No palpable hepatosplenomegaly. Genitalia/rectal: Exam deferred. Extremities: Without clubbing, cyanosis or edema with patient complaint of left thigh discomfort with her recent clot without pitting edema in that area. Skin: Normal color, warm and dry with multiple tattoos. Neuro: Cranial nerves II through XII grossly intact, no focalizing motor deficits. Psych: Flattened affect with depressed mood and anxious. No abnormal thought processes. Remote and recent memory appear intact. Results Imaging Imaging Studies: Exam(s) a US:US lower extremity venous LT EXAM: US LOWER EXTREMITY VENOUS LT CLINICAL HISTORY: r/o DVT, TECHNIQUE: Ultrasound performed using standard protocol. COMPARISON: US LEFT EXTREMITY ULTRASOUND from 12/11/2016 FINDINGS: Duplex venous ultrasound of the left lower extremity was performed. There is visible noncompressible thrombus in common femoral vein extending distally to the level of the mid posterior tibial veins. The proximal visualized common femoral vein appears free of thrombus. IMPRESSION: Examination is positive for DVT extending from mid common femoral vein to the mid calf level. Dictated By: Frank Cueto M.D. 11/21/19 0835 Labs Result diagrams: 12/08/19 15:35 12/08/19 15:35 Labs: Laboratory Results - last 24 hr 12/08/19 12/08/19 12/08/19 15:35 15:35 15:35 WBC 8.97 RBC 4.67 Hgb 13.5 Hct 40.0 MCV 85.7 MCH 28.9 MCHC 33.8 RDW 13.9 Plt Count 278 MPV 11.2 H Immature Gran % 0.4 Neutrophils % 85.5 Lymphocytes % 10.6 Monocytes % 3.1 Eosinophils % 0.1 Basophils % 0.3 Nucleated RBC % 0 Absolute Neutrophils 7.66 H Absolute Lymphocytes 0.95 L Absolute Monocytes 0.28 Absolute Eosinophils 0.01 Absolute Basophils 0.03 PT 10.4 INR 1.0 APTT 27.4 Sodium 142 Potassium 3.5 Chloride 107 Carbon Dioxide 23.5 Anion Gap 11.5 H BUN 6 L Creatinine 0.99 Estimated GFR/1.73 m2 >= 60.00 Glucose 123 H Calcium 8.9 Magnesium 1.9 Total Bilirubin 0.4 AST 17 ALT 22 Alkaline Phosphatase 48 Troponin I < 0.05 Total Protein 7.8 Albumin 4.2 Last Vital Signs Temp 36.7 C 12/08/19 15:25 Pulse 44 L 12/08/19 18:44 Resp 20 12/08/19 18:44 BP 175/82 H 12/08/19 18:44 Pulse Ox 100 12/08/19 18:44 COVID-19 Screening Have you,or household,traveled outside [place] in last 14 days?: No Had IN PERSON contact w/suspected or confirmed C-19 person: No
[2019-12-08 19:20] LABS: Bilirubin Negative (Negative); Blood Trace-lysed (Negative); Clarity Sl Cloudy (Clear); Glucose Negative (Negative); Ketones Negative (Negative); Leukocyte Esterase Negative (Negative); Nitrite Negative (Negative); Specific Gravity 1.025 (1.005-1.025); Urobilinogen 0.2 EU/dL (Up TO 0.2); pH 7.5 (5-8)
[2019-12-08] MEDS: Metoclopramide 10 MG/2 ML VIAL IVP (19:26)
--- NOTE | 2019-12-08 19:26 | NUR.NOTE ---
vomited approx 25mls
[2019-12-08 19:35] LABS: RBC 0-2 HPF (0-2); WBC 0-2 HPF (0-5)
[2019-12-08 19:36] LABS: Bacteria Few HPF (Negative); C & S Indicated? No; Crystals Negative HPF (Negative); Epithelial Cells Many HPF (Negative); Mucus Heavy (Negative)
[2019-12-08 19:49] LABS: TSH (W/Ref FT4) 9.46 uIU/mL (0.36-3.74)
[2019-12-08 20:15] LABS: FREE T4 0.52 ng/dL (0.76-1.46)
[2019-12-08] MEDS: LORazepam 1 MG TAB PO (21:16)
[2019-12-08] MEDS: Normal Saline 1,000 ML 150 ML IV (21:17)
[2019-12-08] MEDS: Enoxaparin 80 MG/0.8 ML SYR 70 MG SC (21:17)
[2019-12-08 21:25] LABS: *AMPHETAMINES SCREEN URINE Negative (Negative); *BARBITURATES SCREEN URINE Negative (Negative); *BENZODIAZEPINES SCREEN URINE Negative (Negative); Cannabinoids THC POSITIVE (Negative); Cocaine Screen,Urine Negative (Negative); METHADONE URINE SCREEN Negative (Negative); OPIATES URINE SCREEN POSITIVE (Negative); Tricyclic Antidepressants Negative (Negative)
[2019-12-09] MEDS: LORazepam 1 MG TAB PO ×2 (02:01→06:25)
[2019-12-09] MEDS: HYDROmorphone 2 MG/ML VIAL 1 MG IVP ×3 (02:01→13:03)
[2019-12-09 02:49] VITALS: BP 100/60; PULSE 76; RESP 18; TEMP 37; O2SAT 97
[2019-12-09] MEDS: Normal Saline 1,000 ML 150 ML IV (03:44)
[2019-12-09] MEDS: Metoclopramide 10 MG/2 ML VIAL IVP (04:11)
[2019-12-09] MEDS: Levothyroxine 100 MCG TAB PO (06:25)
[2019-12-09 06:28] LABS: Abs Immature Grans 0.02 10^3/uL (0.0-0.06); Absolute Basophil Count 0.01 10^3/uL (0.0-0.2); Absolute Monocyte Count 0.58 10^3/uL (0.1-0.8); Absolute Neutrophil Count 6.71 10^3/uL (1.2-6.7); Basophils % 0.1; HCT 31.3 % (36.0-46.0); HGB 10.3 g/dL (11.2-15.7); Immature Grans % 0.2; Lymphocytes % 18.8; MCH 28.8 pg (27.0-33.0); MCHC 32.9 % (32.0-36.0); MCV 87.4 fL (80-95); MPV 11.4 fL (8.0-11.0); Monocytes % 6.4; Neutrophils % 74.5; Nucleated RBC 0 %; Platelet Count 213 10^3/uL (130-400); RBC 3.58 10^6/uL (3.93-5.22); RDW-SD 44.4 fL; WBC 9.02 10^3/uL (4.4-10.8)
[2019-12-09 06:34] LABS: ALT 15 U/L (14-59); AST 10 U/L (15-37); Alkaline Phosphatase 31 U/L (46-116); Anion Gap 9.9 mmol/L (3-11); BUN 7 mg/dL (7-18); Bilirubin, Total 0.4 mg/dL (0.2-1.0); CO2 22.1 mmol/L (21.0-32.0); CREATININE 0.77 mg/dL (0.55-1.02); Calcium 7.2 mg/dL (8.5-10.1); Chloride 108 mmol/L (98-107); Glucose 109 mg/dL (74-106); Potassium 3.3 mmol/L (3.5-5.1); Sodium 140 mmol/L (136-145); Total Protein 5.6 g/dL (6.4-8.2)
[2019-12-09 07:56] VITALS: BP 109/67; PULSE 50; RESP 18; TEMP 37.3; O2SAT 97
[2019-12-09] MEDS: Methylphenidate 10 MG TAB 20 MG PO (08:34)
[2019-12-09] MEDS: Pantoprazole 40 MG VIAL IVP (08:34)
[2019-12-09] MEDS: Fexofenadine 180 MG TAB PO (08:34)
[2019-12-09] MEDS: Divalproex 500 MG TABEC PO (08:34)
[2019-12-09] MEDS: Normal Saline Flush 10 ML SYR IVP ×4 (08:35→13:03)
[2019-12-09] MEDS: Fluticasone NASAL SPRAY 16 GM BTL NS (09:28)
[2019-12-09] MEDS: Enoxaparin 80 MG/0.8 ML SYR 70 MG SC (09:29)
[2019-12-09] MEDS: Potassium Chloride 20 MEQ TABCR 40 MEQ PO (09:29)
[2019-12-09] MEDS: Mometasone 220 MCG 14 DOSE INHALER 2 PUFF IH (10:38)
[2019-12-09 11:51] VITALS: BP 116/63; PULSE 78; RESP 19; TEMP 36.6; O2SAT 98
--- NOTE | 2019-12-09 12:51 | CMPROGNOTE_ITS ---
Care Management Progress Note Suzie is sitting on her bed, fully dressed when meets with her. She reports ongoing medical issues including clots in her legs and acid reflux. She has crutches she is utilizing for ambulation due to the clots in her legs. She shares that she is working hard to save money for a new house, because her and her son Braulio can attend the first time Inside class once they have saved $1000. She reports being on daily Lovenox shots and has a follow up appointment with her director of graduate medical education on 12/16/19. She anticipates returning home today and shares no other concerns at this time.
--- NOTE | 2019-12-09 13:26 | DSE_ITS ---
Date of service: 12/09/19 Time of Service: 13: DS: Diagnosis Discharge Diagnosis (1) Intractable nausea and vomiting: Start date: 12/09/19 Start time: : Status: Resolved Asessment and Plan: Resolved, tolerating diet without nausea vomiting, IVF overnight. Ready for discharge. (2) Chronic back pain greater than 3 months duration: Start date: 12/09/19 Start time: 13: Status: Chronic Asessment and Plan: Continue home regimen (3) Factor V Leiden mutation: Start date: 12/09/19 Start time: : Status: Chronic Asessment and Plan: Continue enoxaparin (4) Hypothyroidism: Start date: 12/09/19 Start time: 13: Status: Chronic Asessment and Plan: Low tsh and t4 increase to 125 mcg and follow up with PCP Above case discussed with Dr. Murillo who is in agreement Discharge Plan Disposition Patient Disposition: HOME Condition: Improving Discharge Details Chief Complaint: Nausea/Vomit/Diar Clinical Impression: Intractable nausea and vomiting Reason For Visit: HYPEREMESIS, BRADYCARDIA Admit Date/Time: 12/08/19 18:51 Admit Provider: Ilan Baker Attending Provider: Ilan Baker Primary Care Provider: Mikayla Reagan ED Provider: Liliana Ku Hospital Course Hospital Course: This is a 39-year-old female patient that presented for hyperemesis. This event she states began the morning of admission after she had a headache and then treated the headache but the emesis persisted. She also relates her increased nausea to switching to Lovenox dosing twice daily instead of Coumadin because of recurrent large DVT of her left lower extremity. In the ED multiple antiemetics (Phenergan, Haldol, Compazine and 1 dose of Reglan) were used without effect and the patient was admitted for continued hyperemesis. It was thought at one time she may have hyperemesis cannabinoid but she continues as well. She was admitted to m/s for management of her sx. Tsh Was high with low T 4 her dose of levothyroxine was increased to 125 mcg, question of compliance with medications. Overnight she received IVF, antiemetics, she was able to tolerate her soft diet. She feels ready for discharge. Follow up with PCP in 1 week, recheck thyroid per PCP recommendation. Home Meds and New Rx's Prescriptions: New levothyroxine 125 mcg Tablet 125 mcg PO DAILY@0600 Qty: 30 RF: 0 Continued valacyclovir 1 gram tablet 1,000 mg PO TID Qty: 35 RF: 0 hydromorphone 2 mg tablet 2 mg PO Q6H MDD 8 mg PRN (Reason: pain) Qty: 10 RF: 0 enoxaparin 80 mg/0.8 mL syringe 80 mg SC Q12H Qty: 8 RF: 4 hydrocodone-acetaminophen 7.5-325 mg tablet 1 tab PO BID MDD 2 tabs PRN (Reason: pain) Qty: 60 RF: 0 topiramate [Topamax] 200 mg tablet 400 mg PO HS Qty: 180 RF: 4 Citracal Plus Bone Density 1 EACH tablet 1 ea PO BID RF: 0 cyproheptadine 4 MG tablet 4 mg PO HS Qty: 90 RF: 3 ipratropium-albuterol 3 ML solution for nebulization 3 ml Inhalation Q4H PRN MDD 6 times PRNQty: 1 RF: 0 albuterol sulfate [ProAir HFA] 90 mcg/actuation HFA aerosol inhaler 2 puff Inhalation Q6H PRN MDD 6 puffs Qty: 3 RF: 4 albuterol sulfate 1.25 mg/3 mL solution for nebulization 1.25 mg Inhalation Q6H PRN (Reason: shortness of breath or wheezing) Qty: 75 RF: 3 Flovent HFA 220 mcg/actuation HFA aerosol inhaler 2 inh Inhalation BID Qty: 3 RF: 4 mupirocin 2 % ointment 1 applic TP BID Qty: 22 RF: 0 epinephrine [EpiPen 2-Nino] 0.3 mg/0.3 mL auto-injector 0.3 mg IM ONCE Qty: 1 RF: 1 acidophilus-pectin, citrus 25 million cell -100 mg tablet 2 tab PO TID Qty: 90 RF: 4 alcohol swabs [Alcohol Wipes] Pads, Medicated See Rx Instructions TP .COMPLEX Qty: 300 RF: 4 triamcinolone acetonide 0.1 % cream 1 applic Topical BID PRN (Reason: eczema) Qty: 60 RF: 1 omeprazole 40 mg capsule,delayed release(DR/EC) 40 mg PO DAILY PRN (Reason: GERD) Qty: 90 RF: 4 sumatriptan succinate 6 mg/0.5 mL pen injector 6 mg subcut As directed MDD 12 mg Qty: 8 RF: 5 methylphenidate HCl 20 mg tablet 20 mg PO TID MDD 60 mg Qty: 84 RF: 0 fexofenadine 180 mg tablet 180 mg PO DAILY Qty: 90 RF: 4 divalproex 500 mg tablet,delayed release (DR/EC) 500 mg PO TID Qty: 90 RF: 2 clonazepam 1 mg tablet 1 mg PO TID PRN (Reason: anxiety) Qty: 90 RF: 2 Narcan 4 MG spray,non-aerosol 4 mg NS DAILY PRN PRNQty: 2 RF: 0 Discontinued levothyroxine [Synthroid] 100 mcg tablet 100 mcg PO QPM Qty: 90 RF: 4 warfarin [Coumadin] 5 mg tablet 0 - 10 mg PO HS PRN 90 Days Qty: 100 RF: 3 No Action (DME) Space Chamber Plus 1 EACH spacer 1 ea Miscellaneous Q4H PRN Qty: 1 RF: 0 Discharge Instructions Instructions: Hypothyroidism (DC), Acute Nausea and Vomiting (GEN) Additional Instructions: Continue to eat a soft diet for a couple of days Your levothyroxine has been increased to 125 mcg from 100 Follow up with PCP in 1 week Activity:: Activity as Tolerated Equipment/Supplies:: No Equipment Needed Diet:: As Tolerated Discharge Orders Discharge Orders: Discharge Order (Routine); Ordered 12/09/19 Ordered By: Melissa Watson DS: Summary Status at Discharge Functional status at discharge: independent ambulation Overall status at discharge: patient is back to baseline Mental Status: mental status grossly normal Speech and Movement: speech and movement normal Mood: congruent mood Affect: normal affect Exam Narrative Exam Narrative: General: Patient appears older than stated age, flattened affect with poor eye contact and monotonous slow voice. She is alert and oriented to person place and time. HEENT: Normocephalic, eyes with pupils equal and reactive to light symmetrically, extraocular movement intact and sclera anicteric. Oropharynx with dry oral mucosa and fair dentition. External ears and nose normal. Neck: Supple without JVD. Lungs:LSC. Patient does have a dry cough. There is no intercostal retractions. Heart: Regular rate and rhythm with no murmurs or gallops appreciated. Abdomen: Soft, nontender with bowel sounds present in all quadrants. No guarding or tympany. No palpable hepatosplenomegaly.. Extremities: Without clubbing, cyanosis or edema with patient complaint of left thigh discomfort with her recent clot without pitting edema in that area. Skin: Normal color, warm and dry with multiple tattoos. Neuro: Cranial nerves II through XII grossly intact, no focalizing motor deficits. Psych: Flattened affect with depressed mood and anxious. No abnormal thought processes. Remote and recent memory appear intact. Psych Mental Status: mental status grossly normal Speech and Movement: speech and movement normal Mood: congruent mood Affect: normal affect DS: Data Vitals/I&O Vitals and I&O: Vital Signs Temperature 36.6 C 12/09/19 11:51 Temperature Source Tympanic 12/09/19 11:51 Pulse 78 12/09/19 11:51 Pulse Rhythm Regular 12/09/19 07:25 Respiratory Rate 19 12/09/19 11:51 Respiratory Effort Non-Labored 12/09/19 07:25 Respiratory Depth Normal 12/09/19 07:25 Respiratory Pattern Normal 12/09/19 07:25 Blood Pressure 116/63 12/09/19 11:51 Blood Pressure Position Sitting 12/08/19 15:25 Pulse Oximetry 98 12/09/19 11:51 Oxygen Delivery Method Room Air 12/09/19 11:51 Oxygen Flow Rate 0 12/09/19 11:51 Pain Level 6 12/09/19 13:03 Comment 12/08/19 20:44 Intake & Output 12/08/19 12/09/19 12/09/19 23:59 11:59 23:59 Intake Total 1051 / 1051 3227.5 / 3477.5 250 / 3477.5 Output Total 800 / 800 1100 / 1100 Balance 251 / 251 2127.5 / 2377.5 250 / 2377.5 Weight 70.307 kg 74.3 kg Intake: IV 1051 / 1051 2987.5 / 2997.5 10 / 2997.5 Oral 240 / 480 240 / 480 Output: Urine 800 / 800 1100 / 1100 Other: Urine Color Yellow Straw Urine Appearance Clear Clear Urine Odor Normal Comment Void x1 in the toilet. Pt. complaining of some dysuria. Stool Characteristics Formed Voiding Methods Toilet Data Completed and Pending Labs on day of discharge: Labs from last 24 hours 12/09/19 12/09/19 12/08/19 06:15 06:15 20:15 WBC 9.02 RBC 3.58 L Hgb 10.3 L D Hct 31.3 L D MCV 87.4 MCH 28.8 MCHC 32.9 RDW 14.0 Plt Count 213 MPV 11.4 H Immature Gran % 0.2 Neutrophils % 74.5 Lymphocytes % 18.8 Monocytes % 6.4 Eosinophils % 0.0 Basophils % 0.1 Nucleated RBC % 0 Absolute Neutrophils 6.71 H Absolute Lymphocytes 1.70 Absolute Monocytes 0.58 Absolute Eosinophils 0.00 Absolute Basophils 0.01 PT INR APTT Sodium 140 Potassium 3.3 L Chloride 108 H Carbon Dioxide 22.1 Anion Gap 9.9 BUN 7 Creatinine 0.77 Estimated GFR/1.73 m2 >= 60.00 Glucose 109 H Calcium 7.2 L Magnesium Total Bilirubin 0.4 AST 10 L ALT 15 Alkaline Phosphatase 31 L Troponin I Total Protein 5.6 L Albumin 3.0 L TSH Free T4 Urine Color Urine Clarity Urine pH Ur Specific [place] Urine Protein Urine Ketones Urine Blood Urine Nitrite Urine Bilirubin Urine Urobilinogen Ur Leukocyte Esterase Urine RBC Urine WBC Ur Epithelial Cells Urine Crystals Urine Bacteria Urine Mucus Ur Culture Indicated? Urine Glucose Urine Opiates Screen Urine Methadone Screen Ur Barbiturates Screen Ur Tricyclics Screen Ur Amphetamines Screen U Benzodiazepines Scrn Urine Cocaine Screen Ur THC Screen COVID-19 PCR Pending Nasopharyn COVID-19 PCR Pending Ref Test Perform Site Pending 12/08/19 12/08/19 12/08/19 19:10 19:10 15:35 WBC RBC Hgb Hct MCV MCH MCHC RDW Plt Count MPV Immature Gran % Neutrophils % Lymphocytes % Monocytes % Eosinophils % Basophils % Nucleated RBC % Absolute Neutrophils Absolute Lymphocytes Absolute Monocytes Absolute Eosinophils Absolute Basophils PT 10.4 INR 1.0 APTT 27.4 Sodium Potassium Chloride Carbon Dioxide Anion Gap BUN Creatinine Estimated GFR/1.73 m2 Glucose Calcium Magnesium Total Bilirubin AST ALT Alkaline Phosphatase Troponin I Total Protein Albumin TSH Free T4 Urine Color Yellow Urine Clarity Sl cloudy Urine pH 7.5 Ur Specific Valera 1.025 Urine Protein Negative Urine Ketones Negative Urine Blood Trace-lysed H Urine Nitrite Negative Urine Bilirubin Negative Urine Urobilinogen 0.2 Ur Leukocyte Esterase Negative Urine RBC 0-2 Urine WBC 0-2 Ur Epithelial Cells Many Urine Crystals Negative Urine Bacteria Few Urine Mucus Heavy Ur Culture Indicated? No Urine Glucose Negative Urine Opiates Screen Positive A Urine Methadone Screen Negative Ur Barbiturates Screen Negative Ur Tricyclics Screen Negative Ur Amphetamines Screen Negative U Benzodiazepines Scrn Negative Urine Cocaine Screen Negative Ur THC Screen Positive A COVID-19 PCR [facility] COVID-19 PCR Ref Test Perform Site 12/08/19 12/08/19 12/08/19 15:35 15:35 15:30 WBC 8.97 RBC 4.67 Hgb 13.5 Hct 40.0 MCV 85.7 MCH 28.9 MCHC 33.8 RDW 13.9 Plt Count 278 MPV 11.2 H Immature Gran % 0.4 Neutrophils % 85.5 Lymphocytes % 10.6 Monocytes % 3.1 Eosinophils % 0.1 Basophils % 0.3 Nucleated RBC % 0 Absolute Neutrophils 7.66 H Absolute Lymphocytes 0.95 L Absolute Monocytes 0.28 Absolute Eosinophils 0.01 Absolute Basophils 0.03 PT INR APTT Sodium 142 Potassium 3.5 Chloride 107 Carbon Dioxide 23.5 Anion Gap 11.5 H BUN 6 L Creatinine 0.99 Estimated GFR/1.73 m2 >= 60.00 Glucose 123 H Calcium 8.9 Magnesium 1.9 Total Bilirubin 0.4 AST 17 ALT 22 Alkaline Phosphatase 48 Troponin I < 0.05 Total Protein 7.8 Albumin 4.2 TSH 9.46 H Free T4 0.52 L Urine Color Urine Clarity Urine pH Ur Specific [place]era Urine Protein Urine Ketones Urine Blood Urine Nitrite Urine Bilirubin Urine Urobilinogen Ur Leukocyte Esterase Urine RBC Urine WBC Ur Epithelial Cells Urine Crystals Urine Bacteria Urine Mucus Ur Culture Indicated? Urine Glucose Urine Opiates Screen Urine Methadone Screen Ur Barbiturates Screen Ur Tricyclics Screen Ur Amphetamines Screen U Benzodiazepines Scrn Urine Cocaine Screen Ur THC Screen COVID-19 Replaced by [facility] COVID-19 PCR Ref Test Perform Site 12/07/19 20:11 WBC RBC Hgb Hct MCV MCH MCHC RDW Plt Count MPV Immature Gran % Neutrophils % Lymphocytes % Monocytes % Eosinophils % Basophils % Nucleated RBC % Absolute Neutrophils Absolute Lymphocytes Absolute Monocytes Absolute Eosinophils Absolute Basophils PT INR APTT Sodium Potassium Chloride Carbon Dioxide Anion Gap BUN Creatinine Estimated GFR/1.73 m2 Glucose Calcium Magnesium Total Bilirubin AST ALT Alkaline Phosphatase Troponin I Total Protein Albumin TSH Free T4 Urine Color Urine Clarity Urine pH Ur Specific [place] Urine Protein Urine Ketones Urine Blood Urine Nitrite Urine Bilirubin Urine Urobilinogen Ur Leukocyte Esterase Urine RBC Urine WBC Ur Epithelial Cells Urine Crystals Urine Bacteria Urine Mucus Ur Culture Indicated? 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) Asthma (Chronic 11/08/12) B12 deficiency (Chronic) Cannabis abuse with cannabis-induced disorder (Chronic) Cellulitis of left leg (Resolved) Chronic anticoagulation (Chronic) Chronic back pain greater than 3 months duration (Chronic 12/29/14) Cyst of fallopian tube (Resolved) Depression (Chronic) Factor V Leiden mutation (Chronic) GERD (gastroesophageal reflux disease) (Chronic) Hematuria (Resolved) History of DVT (deep vein thrombosis) (Chronic) Hypothyroidism (Chronic) Intractable vomiting with nausea (Acute) Left buttock abscess (Resolved) Migraine headache (Chronic) Nephrolithiasis (Chronic) Panic disorder (Chronic 03/21/16) Preseptal cellulitis of left eye (Inactive) Recurrent deep vein thrombosis (DVT) (Chronic) Right lower quadrant abdominal pain (Resolved) inflamed/ruptured fallopian tube on the right 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) Vaginal candidiasis (Inactive) Surgical History Abdominal hysterectomy (~2009) 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) Arthroplasty of knee (~1999) left Bilateral salpingectomy with oophorectomy (~2008) Cervical Conization/LEEP LEEP 2003 [facility] 2003 Cholecystectomy S/P appendectomy (Acute 12/24/17) Dr Veliz - Car [place] and car excision of R fallopian tube remnant Status post cholecystectomy (Inactive) Status post LEEP (loop electrosurgical excision procedure) of cervix (Inactive) THUMB RECONSTRUCTION left; in childhood Social History Smoking/Tobacco Use Status: Never Alcohol Intake: current Alcohol Intake frequency: 0-2 drinks per day Drug use: Daily Substance use type: marijuana Do you feel safe at home: Yes Do you feel safe in your relationship?: Yes Additional Social history: Patient is and with one child. She denies any smoking or significant alcohol use, but admits to regular marijuana use.
[2019-12-09 13:36] LABS: COVID-19 RT-PCR UVMMC Result Negative (Negative)
== END 2019-12-09 14:46 | disposition home or self-care (01) ==
LOC: ER 18:42 → MS 20:21
PROVIDERS: Admitting Provider Family Medicine; Emergency Provider Physician Assistant; PCP Nurse Practitioner Family; Visit Provider Family Medicine
DX: R11.2 Nausea with vomiting, unspecified (principal); E03.9 Hypothyroidism, unspecified; D68.51 Activated protein C resistance; G89.29 Other chronic pain; M54.9 Dorsalgia, unspecified; F43.10 Post-traumatic stress disorder, unspecified; Z79.899 Other long term (current) drug therapy; F12.19 Cannabis abuse with unspecified cannabis-induced disorder; Z79.01 Long term (current) use of anticoagulants; F90.9 Attention-deficit hyperactivity disorder, unspecified type; J45.909 Unspecified asthma, uncomplicated; E53.8 Deficiency of other specified B group vitamins; K21.9 Gastro-esophageal reflux disease without esophagitis; Z86.718 Personal history of other venous thrombosis and embolism; F41.0 Panic disorder [episodic paroxysmal anxiety]; G43.909 Migraine, unspecified, not intractable, without status migrainosus
CPT/HCPCS: 36415; 80053; 80307; 93005; 94640; 96361; 96374; 96375; 99223; 99239; 99285; U0003; 81003; 81015; 83735; 84439; 84443; 84484; 85025; 85610; 85730; 93010; 99217; 99220; G0378; J0780; J1630; J1650; J2765

== ENCOUNTER 2019-12-10 10:14 | Inpatient (IN) | payer MEDICARE, MEDICAID, SELFPAY ==
[2019-12-10] VITALS (22 sets, daily range): BP systolic 131–196; BP diastolic 72–95; PULSE 43–65; RESP 13–20; TEMP 36.7–38.5; O2SAT 83–100
--- NOTE | 2019-12-10 10:34 | ED.GENADUL_ITS ---
Discharge Plan Disposition Patient Disposition: [facility] IN[facility]IENT Condition: Stable Discharge Details Chief Complaint: Abd Prob Clinical Impression: Gastroenteritis, Intractable nausea and vomiting Admit Date/Time: 12/10/19 14:22 Admit Provider: Selvin Mendoza Attending Provider: Selvin Mendoza Primary Care Provider: Mikayla Reagan ED Provider: Nguyen Jiang Medical Decision Making 39-year-old female presents to the ER chief complaint of nausea and vomiting. She was discharged from the hospital for intractable nausea vomiting yesterday reports feeling better yesterday afternoon prior to discharge. Upon awakening this morning nausea vomiting returned. Patient states that she took her Phenergan and Zofran prior to arrival with little to no relief. She reports stress incontinence of urine with every emesis episode. Small amount of loose stools noted. Denies any fever or chills. She is complaining of midepigastric esophageal burning. She does have a history of acute DVT of the left lower extremity, factor V Leiden mutation, hypothyroidism, ADHD, cannabis abuse with cannabis-induced disorder, migraine headaches, B12 deficiency. Upon initial exam patient is currently having bilious dry heaving on arrival. 1103: Offered patient Capscacin cream which she declined at this time. Lipase added on to labs and CT abd pelvis. 1132: Patient continues to retch and dry heaves, is receiving promethazine IV piggyback at this time. Transported to diagnostic imaging or CT abdomen pelvis. Additional medication orders in place including 12.5 mg Benadryl, 10 mg of prochlorperazine, 0.5 mg of hydromorphone. Differential diagnosis includes but not limited to cyclical vomiting syndrome, bowel obstruction, gastroenteritis, intractable nausea vomiting, gastroparesis, gastroesophageal reflux, pseudoobstruction,. COMPARISON: CT ABDOMEN PELVIS W 08/20/2018 8:39 AM FINDINGS: Lungs: Bibasilar atelectasis Liver: Normal. No mass. Gallbladder and bile ducts: Cholecystectomy Pancreas: Normal. No ductal dilation. Spleen: Normal. No splenomegaly. Adrenals: Normal. No mass. Kidneys and ureters: Normal. No hydronephrosis. Stomach and bowel: Intermittent bowel wall thickening in the jejunum may represent enteritis including infectious and inflammatory etiologies. Low-attenuation bowel wall thickening is seen throughout the colon consistent with colitis. Differential diagnosis includes infectious and inflammatory etiologies.. Appendix: Surgical clips in the cecum may reflect prior appendectomy Intraperitoneal space: Minimal free fluid in the pelvis Vasculature: Unremarkable. No abdominal aortic aneurysm. Lymph nodes: Unremarkable. No enlarged lymph nodes. Bladder: Unremarkable as visualized. Reproductive: Surgical resection of the uterus Bones/joints: Unremarkable. No acute fracture. Soft tissues: Unremarkable. IMPRESSION: 1. Intermittent bowel wall thickening in the jejunum may represent enteritis including infectious and inflammatory etiologies. 2. Low-attenuation bowel wall thickening is seen throughout the colon consistent with colitis. Differential diagnosis includes infectious and inflammatory etiologies.. Thank you for allowing us to participate in the care of your patient. Readmission for intractable nausea vomiting. Dictated and Authenticated by: Yeni Torre MD 12/10/2019 12:07 PM Eastern Time ([place] & [place]) 1247: Patient reevaluation, continues to retch and have bilious emesis. Patient states she feels no better. Discussed CT results with her. Will try Reglan she is continuing to get her IV fluids. If Reglan is unsuccessful will reach out to the hospitalist for readmission for intractable nausea vomiting and gastroenteritis. 1337: Spoke with Dr. Mendoza hospitalist regarding patient he recommends trying 1 mg of lorazepam IV and 2 mg of Haldol IV if no improvement he does agree to keep patient for intractable nausea vomiting. Will reevaluate in approximately 35 minutes. Patient states she is no better plan is to admit patient for intractable vomiting hospitalist aware. HPI General Mode of arrival: ambulatory . Date/Time Provider Initiated Documentation: 12/10/19 10:15 . Limitations to Documentation: no limitations . Information obtained by: patient . HPI Narrative: 39-year-old female presents to the ER chief complaint of nausea and vomiting. She was discharged from the hospital for intractable nausea vomiting yesterday reports feeling better y afternoon prior to discharge. Upon awakening this morning nausea vomiting returned. Patient states that she took her Phenergan and Zofran prior to arrival with little to no relief. She reports stress incontinence of urine with every emesis episode. Small amount of loose stools noted. Denies any fever or chills. She is complaining of midepigastric esophageal burning. She does have a history of acute DVT of the left lower extremity, factor V Leiden mutation, hypothyroidism, ADHD, cannabis abuse with cannabis-induced disorder, migraine headaches, B12 deficiency. Upon initial exam patient is currently having bilious dry heaving on arrival. Related Data Home Medications Medication Instructions Recorded Confirmed Citracal Plus Bone Density 1 ea PO BID tab-cap 11/09/12 12/08/19 Space Chamber Plus #1 spacer 05/01/14 12/08/19 cyproheptadine 4 mg PO HS #90 tab-cap 06/04/16 12/08/19 Narcan 4 mg NS DAILY PRN PRN #2 spray 12/08/16 12/08/19 ipratropium-albuterol 3 ml INHALATION Q4H PRN PRN #1 box 01/23/17 12/08/19 MDD 6 times albuterol sulfate 1.25 mg/3 mL 1.25 mg INHALATION Q6H PRN #75 ml 01/12/19 12/08/19 solution for nebulization albuterol sulfate 90 mcg/actuation 2 puff INHALATION Q6H PRN #3 01/12/19 12/08/19 aerosol inhaler inhaler MDD 6 puffs fluticasone propionate 220 2 inh INHALATION BID #3 inhaler 01/12/19 12/08/19 mcg/actuation HFA aerosol inhaler mupirocin 2 % topical ointment 1 applic TP BID #22 gm 01/12/19 12/08/19 epinephrine 0.3 mg/0.3 mL 0.3 mg IM ONCE #1 ea 01/27/19 12/08/19 injection, auto-injector acidophilus 25 million 2 tab PO TID #90 tab 05/29/19 12/08/19 cell-pectin, citrus 100 mg tablet valacyclovir 1 gram tablet 1,000 mg PO TID #35 tab 06/24/19 12/08/19 alcohol swabs See Rx Instructions TP .COMPLEX 07/11/19 12/08/19 #300 each triamcinolone acetonide 0.1 % 1 applic TOPICAL BID PRN #60 gm 09/05/19 12/08/19 topical cream omeprazole 40 mg capsule,delayed 40 mg PO DAILY PRN #90 cap 09/09/19 12/08/19 release sumatriptan succinate 6 mg/0.5 mL 6 mg SUBCUT As directed #8 pen MDD 09/09/19 12/08/19 subcutaneous pen injector 12 mg hydrocodone 7.5 mg-acetaminophen 1 tab PO BID PRN #60 tab MDD 2 tabs 09/23/19 12/08/19 325 mg tablet methylphenidate HCl 20 mg tablet 20 mg PO TID #84 tab-cap MDD 60 mg 10/20/19 12/08/19 fexofenadine 180 mg tablet 180 mg PO DAILY #90 tab-cap 11/01/19 12/08/19 Topamax 200 mg tablet 400 mg PO HS #180 tab NS 11/11/19 12/08/19 divalproex 500 mg tablet,delayed 500 mg PO TID #90 tab 11/16/19 12/08/19 release enoxaparin 80 mg/0.8 mL 80 mg SC Q12H #8 ml 11/25/19 12/08/19 subcutaneous syringe hydromorphone 2 mg tablet 2 mg PO Q6H PRN #10 tab MDD 8 mg 11/25/19 12/08/19 clonazepam 1 mg tablet 1 mg PO TID PRN #90 tab 12/06/19 12/08/19 levothyroxine 125 mcg PO DAILY@0600 #30 tab 12/09/19 Previous Rx's Medication Instructions Recorded Space Chamber Plus #1 spacer 05/01/14 Narcan 4 mg NS DAILY PRN PRN #2 spray 12/08/16 albuterol sulfate 1.25 mg/3 mL 1.25 mg INHALATION Q6H PRN #75 ml 01/12/19 solution for nebulization albuterol sulfate 90 mcg/actuation 2 puff INHALATION Q6H PRN #3 01/12/19 aerosol inhaler inhaler MDD 6 puffs fluticasone propionate 220 2 inh INHALATION BID #3 inhaler 01/12/19 mcg/actuation HFA aerosol inhaler mupirocin 2 % topical ointment 1 applic TP BID #22 gm 01/12/19 epinephrine 0.3 mg/0.3 mL 0.3 mg IM ONCE #1 ea 01/27/19 injection, auto-injector acidophilus 25 million 2 tab PO TID #90 tab 05/29/19 cell-pectin, citrus 100 mg tablet valacyclovir 1 gram tablet 1,000 mg PO TID #35 tab 06/24/19 alcohol swabs See Rx Instructions TP .COMPLEX 07/11/19 #300 each triamcinolone acetonide 0.1 % 1 applic TOPICAL BID PRN #60 gm 09/05/19 topical cream omeprazole 40 mg capsule,delayed 40 mg PO DAILY PRN #90 cap 09/09/19 release sumatriptan succinate 6 mg/0.5 mL 6 mg SUBCUT As directed #8 pen MDD 09/09/19 subcutaneous pen injector 12 mg hydrocodone 7.5 mg-acetaminophen 1 tab PO BID PRN #60 tab MDD 2 tabs 09/23/19 325 mg tablet methylphenidate HCl 20 mg tablet 20 mg PO TID #84 tab-cap MDD 60 mg 10/20/19 fexofenadine 180 mg tablet 180 mg PO DAILY #90 tab-cap 11/01/19 Topamax 200 mg tablet 400 mg PO HS #180 tab NS 11/11/19 divalproex 500 mg tablet,delayed 500 mg PO TID #90 tab 11/16/19 release enoxaparin 80 mg/0.8 mL 80 mg SC Q12H #8 ml 11/25/19 subcutaneous syringe hydromorphone 2 mg tablet 2 mg PO Q6H PRN #10 tab MDD 8 mg 11/25/19 clonazepam 1 mg tablet 1 mg PO TID PRN #90 tab 12/06/19 levothyroxine 125 mcg PO DAILY@0600 #30 tab 12/09/19 Allergies Allergy/AdvReac Type Severity Reaction Status Date / Time aripiprazole [From Abilify] Allergy Severe Rash, hives Verified 12/10/19 10:56 doxycycline Allergy Severe Anaphylaxsi Verified 12/10/19 10:56 s levetiracetam [From Keppra] Allergy Severe RASH/HIVES Verified 12/10/19 10:56 sulfamethoxazole Allergy Severe Hives Verified 12/10/19 10:56 venom-honey bee Allergy Severe unknown Verified 12/10/19 10:56 Penicillins Allergy Intermediate Skin Rash Verified 12/10/19 10:56 chlorhexidine Allergy Unknown unknown Verified 12/10/19 10:56 Sulfa (Sulfonamide Allergy Verified 12/10/19 10:56 Antibiotics) mold AdvReac Severe Wheezing Verified 12/10/19 10:56 oxycodone [Oxycodone] AdvReac Severe vomits Verified 12/10/19 10:56 paroxetine AdvReac Severe Irritability Verified 12/10/19 10:56 and anger dicloxacillin [Dicloxacillin] AdvReac Mild Nausea Verified 12/10/19 10:56 gabapentin AdvReac Mild hives Verified 12/10/19 10:56 prednisone AdvReac Agitation Verified 12/10/19 10:56 trazodone AdvReac shortness Verified 12/10/19 10:56 of breath verapamil [Verapamil] AdvReac Worsening Verified 12/10/19 10:56 migraine nuts Allergy Severe Anaphylaxsi Uncoded 12/10/19 10:56 s General Stated Complaint: Abd Prob RYNE: 3 Review of Systems Narrative: Constitutional: Negative for weight loss, alert and oriented, well groomed, normal body habitus, appears comfortable. HEENT: Denies trauma, headaches, blurry vision, nasal discharge, sore throat, trouble swallowing. Chest: Denies chest pain, palpitations, irregular rhythm, hypertension. Respiratory: Denies Shortness of breath, cough, hemoptysis. GI: Denies abdominal pain, nausea, vomiting, diarrhea, constipation. : Denies dysuria, hematuria, flank pain, rectal bleeding. Neuro: Denies dizziness, blurry vision, weakness, syncope, headache or facial numbness. Hematologic: Denies easy bruising, intolerance to heat or cold, hair loss. 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) Asthma (Chronic 11/08/12) B12 deficiency (Chronic) Cannabis abuse with cannabis-induced disorder (Chronic) Cellulitis of left leg (Resolved) Chronic anticoagulation (Chronic) Chronic back pain greater than 3 months duration (Chronic 12/29/14) Cyst of fallopian tube (Resolved) Depression (Chronic) Factor V Leiden mutation (Chronic) GERD (gastroesophageal reflux disease) (Chronic) Hematuria (Resolved) History of DVT (deep vein thrombosis) (Chronic) Hypothyroidism (Chronic) Intractable vomiting with nausea (Acute) Left buttock abscess (Resolved) Migraine headache (Chronic) Nephrolithiasis (Chronic) Panic disorder (Chronic 03/21/16) Preseptal cellulitis of left eye (Inactive) Recurrent deep vein thrombosis (DVT) (Chronic) Right lower quadrant abdominal pain (Resolved) inflamed/ruptured fallopian tube on the right 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) Vaginal candidiasis (Inactive) Surgical History Abdominal hysterectomy (~2009) 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) Arthroplasty of knee (~1999) left Bilateral salpingectomy with oophorectomy (~2008) Cervical Conization/LEEP LEEP 2002 [facility] BX 2002 Cholecystectomy S/P appendectomy (Acute 12/24/17) Dr Veliz - Lap appy and lap excision of R fallopian tube remnant Status post cholecystectomy (Inactive) Status post LEEP (loop electrosurgical excision procedure) of cervix (Inactive) THUMB RECONSTRUCTION left; in childhood Social History Smoking/Tobacco Use Status: Never Alcohol Intake: current Alcohol Intake frequency: 0-2 drinks per day Drug use: Daily Substance use type: marijuana Do you feel safe at home: Yes Do you feel safe in your relationship?: Yes Additional Social history: Patient is and with one child. She denies any smoking or significant alcohol use, but admits to regular marijuana use. Exam Narrative Exam Narrative: Constitutional: Alert and oriented x3. Appears stated age. Normal body habitus. Head: Normocephalic, no trauma. Eyes: Pupils PERRLA, Red reflex noted, EOM's intact. Eyelids symmetrical without lesions, discharge, or swelling. ENT: Bilateral TM's WNL, External ear normal to inspection, no mastoid TTP, swelling, or erythema, Nasal turbinates WNL, no nasal discharge. Normal dentition, Posterior pharynx WNL, no exudate. Chest: RRR, Normal S1, S2, distal pulses intact. Resp: Lungs clear to auscultation bilaterally, no wheezes, rales, or rhonchi. Musculoskeletal: Normal gait, 5/5 strength to all four extremities. Skin: No suspicious rashes or lesions. Capillary refill less than 2 sec. Neurologic: Cranial nerves II-XII intact. Alert and oriented x 3. DTR's intact. Hematologic/Lymphatic: No ecchymosis, no lymphadenopathy. Course Vital Signs Vital signs: Vital Signs Temperature 36.7 C 12/10/19 10:17 Pulse 48 L 12/10/19 10:17 Respiratory Rate 16 12/10/19 10:17 Pulse Oximetry 98 12/10/19 10:17 Temperature 36.7 C 12/10/19 10:17 Temperature Source Temporal Artery Scan 12/10/19 10:17 Pulse 48 L 12/10/19 10:17 Respiratory Rate 16 12/10/19 10:17 Respiratory Effort 12/10/19 10:27 Pulse Oximetry 98 12/10/19 10:17 Oxygen Delivery Method Room Air 12/10/19 10:17 Oxygen Flow Rate 0 12/10/19 10:17 Pain Level 10 12/10/19 10:31
--- NOTE | 2019-12-10 10:45 | DI.CT_ITS ---
EXAM: CT ABDOMEN PELVIS W CLINICAL HISTORY: Nausea, vomiting R/O obstruction TECHNIQUE: COMPARISON: CT CT renal colic wo from 05/22/[address] ABDOMEN PELVIS W from 08/20/2018 FINDINGS: CT examination of the and pelvis was performed with intravenous infusion of 100 cc of Omnipaque 350. Images obtained through the lung bases are unremarkable. Note is made of prior cholecystectomy and presumed appendectomy. Liver and spleen spleen unremarkable appearance with focal fat adjacent to falciform ligament of the liver. Adrenals and kidneys appear normal with no urinary tract calcification or obstruction. Abdom inal aorta is of normal diameter no major visceral branch abnormality is seen. No evidence of abdominal or pelvic adenopathy. Incidental note is made of gas in soft tissues scattered in the lower left abdominal wall consistent with prior injections. 1.5 cm presumed injection abscess noted also left lower quadrant subcutaneous tissues. There is a small quantity of free pelvic fluid which is nonspecific. Prior hysterectomy noted. No g ross pelvic mass identified. No evidence of diverticulitis or bowel obstruction. Colonic lumen is collapsed, mild colonic wall edema not excluded but this may just be due to underdis tention. IMPRESSION: Nonspecific pelvic findings, small quantity of free pelvic fluid without focal cause. Colitis not ex cluded, please see above discussion. RADIATION DOSE DELIVERED: 959.6mGy.cm Total DLP
[2019-12-10 10:51] LABS: Abs Immature Grans 0.04 10^3/uL (0.0-0.06); Absolute Basophil Count 0.07 10^3/uL (0.0-0.2); Absolute Eosinophil Count 0.07 10^3/uL (0.0-0.7); Absolute Lymphocyte Count 1.38 10^3/uL (1.2-3.4); Absolute Monocyte Count 0.47 10^3/uL (0.1-0.8); Absolute Neutrophil Count 9.76 10^3/uL (1.2-6.7); Basophils % 0.6; Eosinophils % 0.6; HGB 12.7 g/dL (11.2-15.7); Immature Grans % 0.3; Lymphocytes % 11.7; MCH 29.4 pg (27.0-33.0); MCHC 34.3 % (32.0-36.0); MCV 85.6 fL (80-95); MPV 11.2 fL (8.0-11.0); Neutrophils % 82.8; Nucleated RBC 0 %; Platelet Count 279 10^3/uL (130-400); RBC 4.32 10^6/uL (3.93-5.22); RDW 14.1 % (11.7-14.6); RDW-SD 43.5 fL; WBC 11.79 10^3/uL (4.4-10.8)
[2019-12-10 11:02] LABS: Prothrombin Time 10.4 sec (9.3-11.0)
[2019-12-10] MEDS: Lactated Ringers 1,000 ML 1000 ML IV (11:02)
[2019-12-10] MEDS: diphenhydrAMINE 50 MG/ML VIAL 12.5 MG IVP ×2 (11:03→11:58)
[2019-12-10] MEDS: FAMOTIDINE 20 MG/50 ML BAG 100 MG IVPB (11:07)
[2019-12-10 11:15] LABS: Lipase 136 U/L (73-393)
[2019-12-10 11:19] LABS: ALT 24 U/L (14-59); AST 20 U/L (15-37); Alkaline Phosphatase 43 U/L (46-116); Anion Gap 11.3 mmol/L (3-11); BUN 8 mg/dL (7-18); Bilirubin, Total 0.3 mg/dL (0.2-1.0); CO2 24.7 mmol/L (21.0-32.0); CREATININE 0.93 mg/dL (0.55-1.02); Calcium 8.8 mg/dL (8.5-10.1); Chloride 107 mmol/L (98-107); Glucose 139 mg/dL (74-106); Potassium 3.6 mmol/L (3.5-5.1); Sodium 143 mmol/L (136-145); Total Protein 6.9 g/dL (6.4-8.2)
[2019-12-10] MEDS: Omnipaque 350 MG/ML 100 ML BTL IJ (11:44)
[2019-12-10] MEDS: Normal Saline Flush 10 ML SYR IVP ×3 (11:46→22:23)
[2019-12-10] MEDS: Normal Saline - Diluent 50 ML VIAL IV (11:46)
[2019-12-10] MEDS: HYDROmorphone 2 MG/ML VIAL 0.5 MG IVP (11:53)
[2019-12-10] MEDS: Prochlorperazine 10 MG/2 ML VIAL IVP (12:01)
--- NOTE | 2019-12-10 12:07 | DI.VRAD_ITS ---
PROCEDURE INFORMATION: Exam: CT Abdomen And Pelvis With Contrast Exam date and time: 12/10/2019 10:58 AM Age: 39 years old Clinical indication: Other: Nausea, vomiting RO obstruction TECHNIQUE: Imaging protocol: Computed tomography of the abdomen and pelvis with intravenous contrast. Radiation optimization: All CT scans at this facility use at least one of these dose optimization techniques: automated exposure control; mA and/or kV adjustment per patient size (includes targeted exams where dose is matched to clinical indication); or iterative reconstruction. Contrast material: OMNIPAQUE 350; Contrast volume: 100 ml; Contrast route: INTRAVENOUS (IV); COMPARISON: CT ABDOMEN PELVIS W 08/20/2018 8:39 AM FINDINGS: Lungs: Bibasilar atelectasis Liver: Normal. No mass. Gallbladder and bile ducts: Cholecystectomy Pancreas: Normal. No ductal dilation. Spleen: Normal. No splenomegaly. Adrenals: Normal. No mass. Kidneys and ureters: Normal. No hydronephrosis. Stomach and bowel: Intermittent bowel wall thickening in the jejunum may represent enteritis including infectious and inflammatory etiologies. Low-attenuation bowel wall thickening is seen throughout the colon consistent with colitis. Differential diagnosis includes infectious and inflammatory etiologies.. Appendix: Surgical clips in the cecum may reflect prior appendectomy Intraperitoneal space: Minimal free fluid in the pelvis Vasculature: Unremarkable. No abdominal aortic aneurysm. Lymph nodes: Unremarkable. No enlarged lymph nodes. Bladder: Unremarkable as visualized. Reproductive: Surgical resection of the uterus Bones/joints: Unremarkable. No acute fracture. Soft tissues: Unremarkable. IMPRESSION: 1. Intermittent bowel wall thickening in the jejunum may represent enteritis including infectious and inflammatory etiologies. 2. Low-attenuation bowel wall thickening is seen throughout the colon consistent with colitis. Differential diagnosis includes infectious and inflammatory etiologies.. Dictated and Authenticated by: Yeni Torre MD. Ordering:LUZ MARIA Cedillo MD
[2019-12-10] MEDS: Metoclopramide 10 MG/2 ML VIAL IVP (13:22)
[2019-12-10] MEDS: Haloperidol 5 MG/ML VIAL 2 MG IM/IV (13:50)
[2019-12-10] MEDS: LORazepam 2 MG/ML VIAL 1 MG IVP ×3 (13:53→22:22)
[2019-12-10 14:34] LABS: Bilirubin Negative (Negative); Blood Trace-intact (Negative); Clarity Clear (Clear); Glucose Negative (Negative); Ketones Negative (Negative); Leukocyte Esterase Negative (Negative); Nitrite Negative (Negative); Urobilinogen 0.2 EU/dL (Up TO 0.2); pH 7.5 (5-8)
--- NOTE | 2019-12-10 14:39 | HPE_ITS ---
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) Asthma (Chronic 11/08/12) B12 deficiency (Chronic) Cannabis abuse with cannabis-induced disorder (Chronic) Cellulitis of left leg (Resolved) Chronic anticoagulation (Chronic) Chronic back pain greater than 3 months duration (Chronic 12/29/14) Cyst of fallopian tube (Resolved) Depression (Chronic) Factor V Leiden mutation (Chronic) GERD (gastroesophageal reflux disease) (Chronic) Hematuria (Resolved) History of DVT (deep vein thrombosis) (Chronic) Hypothyroidism (Chronic) Intractable vomiting with nausea (Acute) Left buttock abscess (Resolved) Migraine headache (Chronic) Nephrolithiasis (Chronic) Panic disorder (Chronic 03/21/16) Preseptal cellulitis of left eye (Inactive) Recurrent deep vein thrombosis (DVT) (Chronic) Right lower quadrant abdominal pain (Resolved) inflamed/ruptured fallopian tube on the right 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) Vaginal candidiasis (Inactive) Surgical History Abdominal hysterectomy (~2009) 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) Arthroplasty of knee (~1999) left Bilateral salpingectomy with oophorectomy (~2008) Cervical Conization/LEEP LEEP 2003 [facility] BX 2003 Cholecystectomy S/P appendectomy (Acute 12/24/17) Dr Veliz - Car appy and lap excision of R fallopian tube remnant Status post cholecystectomy (Inactive) Status post LEEP (loop electrosurgical excision procedure) of cervix (Inactive) THUMB RECONSTRUCTION left; in childhood Social History Smoking/Tobacco Use Status: Never Alcohol Intake: current Alcohol Intake frequency: 0-2 drinks per day Drug use: Daily Substance use type: marijuana Do you feel safe at home: Yes Do you feel safe in your relationship?: Yes Additional Social history: Patient is and with one child. She denies any smoking or significant alcohol use, but admits to regular marijuana use. Meds Home Medications and Allergies Home Medications Medication Instructions Recorded Confirmed Type Citracal Plus Bone Density 1 ea PO BID tab-cap 11/09/12 12/08/19 History Space Chamber Plus #1 spacer 05/01/14 12/08/19 Rx cyproheptadine 4 mg PO HS #90 tab-cap 06/04/16 12/08/19 History Narcan 4 mg NS DAILY PRN PRN #2 spray 12/08/16 12/08/19 Rx ipratropium-albuterol 3 ml INHALATION Q4H PRN PRN #1 box 01/23/17 12/08/19 History MDD 6 times albuterol sulfate 1.25 mg/3 mL 1.25 mg INHALATION Q6H PRN #75 ml 01/12/19 12/08/19 Rx solution for nebulization albuterol sulfate 90 mcg/actuation 2 puff INHALATION Q6H PRN #3 01/12/19 12/08/19 Rx aerosol inhaler inhaler MDD 6 puffs fluticasone propionate 220 2 inh INHALATION BID #3 inhaler 01/12/19 12/08/19 Rx mcg/actuation HFA aerosol inhaler mupirocin 2 % topical ointment 1 applic TP BID #22 gm 01/12/19 12/08/19 Rx epinephrine 0.3 mg/0.3 mL 0.3 mg IM ONCE #1 ea 01/27/19 12/08/19 Rx injection, auto-injector acidophilus 25 million 2 tab PO TID #90 tab 05/29/19 12/08/19 Rx cell-pectin, citrus 100 mg tablet valacyclovir 1 gram tablet 1,000 mg PO TID #35 tab 06/24/19 12/08/19 Rx alcohol swabs See Rx Instructions TP .COMPLEX 07/11/19 12/08/19 Rx #300 each triamcinolone acetonide 0.1 % 1 applic TOPICAL BID PRN #60 gm 09/05/19 12/08/19 Rx topical cream omeprazole 40 mg capsule,delayed 40 mg PO DAILY PRN #90 cap 09/09/19 12/08/19 Rx release sumatriptan succinate 6 mg/0.5 mL 6 mg SUBCUT As directed #8 pen MDD 09/09/19 12/08/19 Rx subcutaneous pen injector 12 mg hydrocodone 7.5 mg-acetaminophen 1 tab PO BID PRN #60 tab MDD 2 tabs 09/23/19 12/08/19 Rx 325 mg tablet methylphenidate HCl 20 mg tablet 20 mg PO TID #84 tab-cap MDD 60 mg 10/20/19 12/08/19 Rx fexofenadine 180 mg tablet 180 mg PO DAILY #90 tab-cap 11/01/19 12/08/19 Rx Topamax 200 mg tablet 400 mg PO HS #180 tab NS 11/11/19 12/08/19 Rx divalproex 500 mg tablet,delayed 500 mg PO TID #90 tab 11/16/19 12/08/19 Rx release enoxaparin 80 mg/0.8 mL 80 mg SC Q12H #8 ml 11/25/19 12/08/19 Rx subcutaneous syringe hydromorphone 2 mg tablet 2 mg PO Q6H PRN #10 tab MDD 8 mg 11/25/19 12/08/19 Rx clonazepam 1 mg tablet 1 mg PO TID PRN #90 tab 12/06/19 12/08/19 Rx levothyroxine 125 mcg PO DAILY@0600 #30 tab 12/09/19 Rx Allergies Allergy/AdvReac Type Severity Reaction Status Date / Time aripiprazole [From Abilify] Allergy Severe Rash, hives Verified 12/10/19 10:56 doxycycline Allergy Severe Anaphylaxsi Verified 12/10/19 10:56 s levetiracetam [From Keppra] Allergy Severe RASH/HIVES Verified 12/10/19 10:56 sulfamethoxazole Allergy Severe Hives Verified 12/10/19 10:56 venom-honey bee Allergy Severe unknown Verified 12/10/19 10:56 Penicillins Allergy Intermediate Skin Rash Verified 12/10/19 10:56 chlorhexidine Allergy Unknown unknown Verified 12/10/19 10:56 Sulfa (Sulfonamide Allergy Verified 12/10/19 10:56 Antibiotics) mold AdvReac Severe Wheezing Verified 12/10/19 10:56 oxycodone [Oxycodone] AdvReac Severe vomits Verified 12/10/19 10:56 paroxetine AdvReac Severe Irritability Verified 12/10/19 10:56 and anger dicloxacillin [Dicloxacillin] AdvReac Mild Nausea Verified 12/10/19 10:56 gabapentin AdvReac Mild hives Verified 12/10/19 10:56 prednisone AdvReac Agitation Verified 12/10/19 10:56 trazodone AdvReac shortness Verified 12/10/19 10:56 of breath verapamil [Verapamil] AdvReac Worsening Verified 12/10/19 10:56 migraine nuts Allergy Severe Anaphylaxsi Uncoded 12/10/19 10:56 s Results Labs Result diagrams: 12/10/19 10:40 12/10/19 10:40 Labs: Laboratory Results - last 24 hr 12/10/19 12/10/19 12/10/19 10:40 10:40 10:40 WBC 11.79 H RBC 4.32 Hgb 12.7 D Hct 37.0 MCV 85.6 MCH 29.4 MCHC 34.3 RDW 14.1 Plt Count 279 MPV 11.2 H Immature Gran % 0.3 Neutrophils % 82.8 Lymphocytes % 11.7 Monocytes % 4.0 Eosinophils % 0.6 Basophils % 0.6 Nucleated RBC % 0 Absolute Neutrophils 9.76 H Absolute Lymphocytes 1.38 Absolute Monocytes 0.47 Absolute Eosinophils 0.07 Absolute Basophils 0.07 PT 10.4 INR 1.0 Sodium 143 Potassium 3.6 Chloride 107 Carbon Dioxide 24.7 Anion Gap 11.3 H BUN 8 Creatinine 0.93 Estimated GFR/1.73 m2 >= 60.00 Glucose 139 H Calcium 8.8 Total Bilirubin 0.3 AST 20 ALT 24 Alkaline Phosphatase 43 L Total Protein 6.9 Albumin 4.0 Lipase Urine Color Urine Clarity Urine pH Ur Specific [place] Urine Protein Urine Ketones Urine Blood Urine Nitrite Urine Bilirubin Urine Urobilinogen Ur Leukocyte Esterase Urine Glucose 12/10/19 12/10/19 10:40 14:20 WBC RBC Hgb Hct MCV MCH MCHC RDW Plt Count MPV Immature Gran % Neutrophils % Lymphocytes % Monocytes % Eosinophils % Basophils % Nucleated RBC % Absolute Neutrophils Absolute Lymphocytes Absolute Monocytes Absolute Eosinophils Absolute Basophils PT INR Sodium Potassium Chloride Carbon Dioxide Anion Gap BUN Creatinine Estimated GFR/1.73 m2 Glucose Calcium Total Bilirubin AST ALT Alkaline Phosphatase Total Protein Albumin Lipase 136 Urine Color Straw Urine Clarity Clear Urine pH 7.5 Ur Specific [place] 1.020 Urine Protein Negative Urine Ketones Negative Urine Blood Trace-intact H Urine Nitrite Negative Urine Bilirubin Negative Urine Urobilinogen 0.2 Ur Leukocyte Esterase Negative Urine Glucose Negative Last Vital Signs Temp 36.7 C 12/10/19 10:17 Pulse 52 L 12/10/19 13:55 Resp 16 12/10/19 13:55 BP 152/83 H 12/10/19 13:55 Pulse Ox 98 12/10/19 13:55 COVID-19 Screening Have you,or household,traveled outside [place] in last 14 days?: No Had IN PERSON contact w/suspected or confirmed C-19 person: No
[2019-12-10 14:45] LABS: Tricyclic Antidepressants Negative (Negative)
[2019-12-10 14:47] LABS: *AMPHETAMINES SCREEN URINE Negative (Negative); *BARBITURATES SCREEN URINE Negative (Negative); *BENZODIAZEPINES SCREEN URINE Negative (Negative); Cannabinoids THC POSITIVE (Negative); Cocaine Screen,Urine Negative (Negative); METHADONE URINE SCREEN Negative (Negative); OPIATES URINE SCREEN POSITIVE (Negative)
[2019-12-10 14:48] LABS: Bacteria Few HPF (Negative); C & S Indicated? No/Sq. Contamination; Casts Negative LPF (Negative); Crystals Negative HPF (Negative); Epithelial Cells Many HPF (Negative); Mucus Trace (Negative); Other Cells Rare Renal (Negative); WBC Negative HPF (0-5)
[2019-12-10] MEDS: Enoxaparin 80 MG/0.8 ML SYR SC (15:56)
[2019-12-10] MEDS: Pantoprazole 40 MG VIAL IVP (15:56)
--- NOTE | 2019-12-10 15:56 | W.PM.HP.N ---
Date of service: 12/10/19 Time of Service: 15:56 Assessment and Plan Assessment and plan (1) Intractable nausea and vomiting: Start date: 12/10/19 Start time: 16:16 Status: Acute Assessment and plan: Thought to be due to cannabis, though she denies it, urine positive for THC. CT with questionable enteritis. She will be admitted for IVF, antiemetics, benadryl, haldol. (2) Gastroenteritis: Start date: 12/10/19 Start time: 16:21 Status: Acute Assessment and plan: Evidenced by CT. as above. (3) Acute deep vein thrombosis (DVT) of left lower extremity: Start date: 12/10/19 Start time: 16:21 Status: Acute Assessment and plan: Continue treatment for DVT. Found prior to admission secondary to factor V leiden. History of multiple PE/DVT. Continue enoxaparin 80 mg Above case discussed with Dr. Mendoza who is in agreement. History of Present Illness History of Present Illness Chief Complaint: Vomiting Narrative: 39 y.o female with PMH of DVT on enoxaparin BID, factor V leiden mutation, Intractable n/v, and migraine, presents to ED after being discharged from hospital yesterday for same reason as admission today. She states she went home feeling good, ate a piece of chicken, drank miguel eleazar and woke up this morning vomiting. CT revealing Intermittent bowel wall thickening in the jejunum may represent enteritis including infectious and inflammatory etiologies. Low-attenuation bowel wall thickening is seen throughout the colon consistent with colitis. Differential diagnosis includes infectious and inflammatory etiologies. In the ED she was given famotidine, benadryl, phenergan, haldol, ativan, and reglan without relief. She is being admitted to m/s obs for further management. She will be given benadryl q 6 H, phenergan q 6 IM, ativan q 4 prn, IVF and NPO. She denies cannibas use. She denies CP, SOB. 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) Asthma (Chronic 11/08/12) B12 deficiency (Chronic) Cannabis abuse with cannabis-induced disorder (Chronic) Cellulitis of left leg (Resolved) Chronic anticoagulation (Chronic) Chronic back pain greater than 3 months duration (Chronic 12/29/14) Cyst of fallopian tube (Resolved) Depression (Chronic) Factor V Leiden mutation (Chronic) GERD (gastroesophageal reflux disease) (Chronic) Hematuria (Resolved) History of DVT (deep vein thrombosis) (Chronic) Hypothyroidism (Chronic) Intractable vomiting with nausea (Acute) Left buttock abscess (Resolved) Migraine headache (Chronic) Nephrolithiasis (Chronic) Panic disorder (Chronic 03/21/16) Preseptal cellulitis of left eye (Inactive) Recurrent deep vein thrombosis (DVT) (Chronic) Right lower quadrant abdominal pain (Resolved) inflamed/ruptured fallopian tube on the right 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) Vaginal candidiasis (Inactive) Surgical History Abdominal hysterectomy (~2009) 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) Arthroplasty of knee (~1999) left Bilateral salpingectomy with oophorectomy (~2008) Cervical Conization/LEEP LEEP 2003 [facility] 2003 Cholecystectomy S/P appendectomy (Acute 12/24/17) Dr Veliz - Car appy and lap excision of R fallopian tube remnant Status post cholecystectomy (Inactive) Status post LEEP (loop electrosurgical excision procedure) of cervix (Inactive) THUMB RECONSTRUCTION left; in childhood Social History Smoking/Tobacco Use Status: Never Alcohol Intake: current Alcohol Intake frequency: 0-2 drinks per day Drug use: Daily Substance use type: marijuana Do you feel safe at home: Yes Do you feel safe in your relationship?: Yes Additional Social history: Patient is and with one child. She denies any smoking or significant alcohol use, but admits to regular marijuana use. Meds Home Medications and Allergies Home Medications Medication Instructions Recorded Confirmed Type Citracal Plus Bone Density 1 ea PO BID tab-cap 11/09/12 12/08/19 History Space Chamber Plus #1 spacer 05/01/14 12/08/19 Rx cyproheptadine 4 mg PO HS #90 tab-cap 06/04/16 12/08/19 History Narcan 4 mg NS DAILY PRN PRN #2 spray 12/08/16 12/08/19 Rx ipratropium-albuterol 3 ml INHALATION Q4H PRN PRN #1 box 01/23/17 12/08/19 History MDD 6 times albuterol sulfate 1.25 mg/3 mL 1.25 mg INHALATION Q6H PRN #75 ml 01/12/19 12/08/19 Rx solution for nebulization albuterol sulfate 90 mcg/actuation 2 puff INHALATION Q6H PRN #3 01/12/19 12/08/19 Rx aerosol inhaler inhaler MDD 6 puffs fluticasone propionate 220 2 inh INHALATION BID #3 inhaler 01/12/19 12/08/19 Rx mcg/actuation HFA aerosol inhaler mupirocin 2 % topical ointment 1 applic TP BID #22 gm 01/12/19 12/08/19 Rx epinephrine 0.3 mg/0.3 mL 0.3 mg IM ONCE #1 ea 01/27/19 12/08/19 Rx injection, auto-injector acidophilus 25 million 2 tab PO TID #90 tab 05/29/19 12/08/19 Rx cell-pectin, citrus 100 mg tablet valacyclovir 1 gram tablet 1,000 mg PO TID #35 tab 06/24/19 12/08/19 Rx alcohol swabs See Rx Instructions TP .COMPLEX 07/11/19 12/08/19 Rx #300 each triamcinolone acetonide 0.1 % 1 applic TOPICAL BID PRN #60 gm 09/05/19 12/08/19 Rx topical cream omeprazole 40 mg capsule,delayed 40 mg PO DAILY PRN #90 cap 09/09/19 12/08/19 Rx release sumatriptan succinate 6 mg/0.5 mL 6 mg SUBCUT As directed #8 pen MDD 09/09/19 12/08/19 Rx subcutaneous pen injector 12 mg hydrocodone 7.5 mg-acetaminophen 1 tab PO BID PRN #60 tab MDD 2 tabs 09/23/19 12/08/19 Rx 325 mg tablet methylphenidate HCl 20 mg tablet 20 mg PO TID #84 tab-cap MDD 60 mg 10/20/19 12/08/19 Rx fexofenadine 180 mg tablet 180 mg PO DAILY #90 tab-cap 11/01/19 12/08/19 Rx Topamax 200 mg tablet 400 mg PO HS #180 tab NS 11/11/19 12/08/19 Rx divalproex 500 mg tablet,delayed 500 mg PO TID #90 tab 11/16/19 12/08/19 Rx release enoxaparin 80 mg/0.8 mL 80 mg SC Q12H #8 ml 11/25/19 12/08/19 Rx subcutaneous syringe hydromorphone 2 mg tablet 2 mg PO Q6H PRN #10 tab MDD 8 mg 11/25/19 12/08/19 Rx clonazepam 1 mg tablet 1 mg PO TID PRN #90 tab 12/06/19 12/08/19 Rx levothyroxine 125 mcg PO DAILY@0600 #30 tab 12/09/19 Rx Allergies Allergy/AdvReac Type Severity Reaction Status Date / Time aripiprazole [From Abilify] Allergy Severe Rash, hives Verified 12/10/19 10:56 doxycycline Allergy Severe Anaphylaxsi Verified 12/10/19 10:56 s levetiracetam [From [facility]] Allergy Severe RASH/HIVES Verified 12/10/19 10:56 sulfamethoxazole Allergy Severe Hives Verified 12/10/19 10:56 venom-honey bee Allergy Severe unknown Verified 12/10/19 10:56 Penicillins Allergy Intermediate Skin Rash Verified 12/10/19 10:56 chlorhexidine Allergy Unknown unknown Verified 12/10/19 10:56 Sulfa (Sulfonamide Allergy Verified 12/10/19 10:56 Antibiotics) mold AdvReac Severe Wheezing Verified 12/10/19 10:56 oxycodone [Oxycodone] AdvReac Severe vomits Verified 12/10/19 10:56 paroxetine AdvReac Severe Irritability Verified 12/10/19 10:56 and anger dicloxacillin [Dicloxacillin] AdvReac Mild Nausea Verified 12/10/19 10:56 gabapentin AdvReac Mild hives Verified 12/10/19 10:56 prednisone AdvReac Agitation Verified 12/10/19 10:56 trazodone AdvReac shortness Verified 12/10/19 10:56 of breath verapamil [Verapamil] AdvReac Worsening Verified 12/10/19 10:56 migraine nuts Allergy Severe Anaphylaxsi Uncoded 12/10/19 10:56 s Exam Const General: cooperative and no acute distress Nutritional Appearance: overweight Orientation: alert, awake and oriented x3 HENMT Head: normocephalic and atraumatic Eyes Cornea: corneas normal Pupils: PERRL EOM: EOM intact bilaterally Neck Neck: normal visual inspection, full ROM and no JVD Lymphatic: no lymphadenopathy noted and no lymphedema noted Resp Effort & Inspection: normal respiratory effort Auscultation: clear to auscultation bilaterally Cardio Jugular venous pressure: no JVD Rate: regular rate Rhythm: regular rhythm GI Inspection: normal to inspection Palpation: soft Auscultation: hypoactive bowel sounds General: deferred Skin General skin exam: no rashes or lesions noted Neuro General: patient alert, patient awake and patient oriented x3 Cognition: normal cognition Extrem General: normal to inspection, full ROM and no clubbing, cyanosis or edema Psych Speech and Movement: speech and movement normal Results Labs Result diagrams: 12/10/19 10:40 12/10/19 10:40 Labs: Laboratory Results - last 24 hr 12/10/19 12/10/19 12/10/19 10:40 10:40 10:40 WBC 11.79 H RBC 4.32 Hgb 12.7 D Hct 37.0 MCV 85.6 MCH 29.4 MCHC 34.3 RDW 14.1 Plt Count 279 MPV 11.2 H Immature Gran % 0.3 Neutrophils % 82.8 Lymphocytes % 11.7 Monocytes % 4.0 Eosinophils % 0.6 Basophils % 0.6 Nucleated RBC % 0 Absolute Neutrophils 9.76 H Absolute Lymphocytes 1.38 Absolute Monocytes 0.47 Absolute Eosinophils 0.07 Absolute Basophils 0.07 PT 10.4 INR 1.0 Sodium 143 Potassium 3.6 Chloride 107 Carbon Dioxide 24.7 Anion Gap 11.3 H BUN 8 Creatinine 0.93 Estimated GFR/1.73 m2 >= 60.00 Glucose 139 H Calcium 8.8 Total Bilirubin 0.3 AST 20 ALT 24 Alkaline Phosphatase 43 L Total Protein 6.9 Albumin 4.0 Lipase Urine Color Urine Clarity Urine pH Ur Specific [place] Urine Protein Urine Ketones Urine Blood Urine Nitrite Urine Bilirubin Urine Urobilinogen Ur Leukocyte Esterase Urine RBC Urine WBC Ur Epithelial Cells Urine Crystals Urine Bacteria Urine Casts Urine Mucus Urine Other Ur Culture Indicated? Urine Glucose Urine Opiates Screen Urine Methadone Screen Ur Barbiturates Screen Ur Tricyclics Screen Ur Amphetamines Screen U Benzodiazepines Scrn Urine Cocaine Screen Ur THC Screen 12/10/19 12/10/19 12/10/19 10:40 14:20 14:20 WBC RBC Hgb Hct MCV MCH MCHC RDW Plt Count MPV Immature Gran % Neutrophils % Lymphocytes % Monocytes % Eosinophils % Basophils % Nucleated RBC % Absolute Neutrophils Absolute Lymphocytes Absolute Monocytes Absolute Eosinophils Absolute Basophils PT INR Sodium Potassium Chloride Carbon Dioxide Anion Gap BUN Creatinine Estimated GFR/1.73 m2 Glucose Calcium Total Bilirubin AST ALT Alkaline Phosphatase Total Protein Albumin Lipase 136 Urine Color Straw Urine Clarity Clear Urine pH 7.5 Ur Specific [place] 1.020 Urine Protein Negative Urine Ketones Negative Urine Blood Trace-intact H Urine Nitrite Negative Urine Bilirubin Negative Urine Urobilinogen 0.2 Ur Leukocyte Esterase Negative Urine RBC 3-5 H Urine WBC Negative Ur Epithelial Cells Many Urine Crystals Negative Urine Bacteria Few Urine Casts Negative Urine Mucus Trace Urine Other Rare renal Ur Culture Indicated? No/sq. contamination Urine Glucose Negative Urine Opiates Screen Positive A Urine Methadone Screen Negative Ur Barbiturates Screen Negative Ur Tricyclics Screen Negative Ur Amphetamines Screen Negative U Benzodiazepines Scrn Negative Urine Cocaine Screen Negative Ur THC Screen Positive A Last Vital Signs Temp 37.1 C 12/10/19 15:37 Pulse 51 L 12/10/19 15:37 Resp 18 12/10/19 15:37 BP 152/83 H 12/10/19 13:55 Pulse Ox 100 12/10/19 15:37 COVID-19 Screening Have you,or household,traveled outside [place] in last 14 days?: No Had IN PERSON contact w/suspected or confirmed C-19 person: No
[2019-12-10] MEDS: POTASSIUM CHLORIDE/0.45% NACL 1,000 ML 125 MEQ IV ×2 (15:58→23:35)
[2019-12-10] MEDS: Haloperidol 5 MG/ML VIAL 3 MG IM/IV (16:50)
[2019-12-10] MEDS: Dexamethasone 10 MG/ML VIAL IVP (16:52)
[2019-12-10] MEDS: diphenhydrAMINE 50 MG/ML VIAL IVP (16:53)
--- NOTE | 2019-12-10 18:43 | NUR.NOTE ---
Nursing Note: at 1630 the CO2/O2 sat monitor was set up on the patient. It was plugged into the hilrom in order to monitor patient closer
[2019-12-10] MEDS: Magic Mouthwash 119 ML BTL PO (19:45)
[2019-12-10] MEDS: Calcium 600mg/Vit D 200U TAB 1 TAB PO (20:33)
[2019-12-10] MEDS: Divalproex 500 MG TABEC PO (20:34)
[2019-12-10] MEDS: Lactobacillus Acidophilus CAP 1 CAP PO (20:35)
[2019-12-10] MEDS: Methylphenidate 10 MG TAB 20 MG PO (20:37)
[2019-12-10] MEDS: diphenhydrAMINE 50 MG/ML VIAL 25 MG IVP (22:21)
[2019-12-10] MEDS: clonazePAM 1 MG TAB PO (23:37)
[2019-12-11] MEDS: Magic Mouthwash 119 ML BTL PO ×3 (01:50→19:56)
[2019-12-11] MEDS: Enoxaparin 80 MG/0.8 ML SYR SC ×2 (05:03→16:21)
[2019-12-11] MEDS: Normal Saline Flush 10 ML SYR IVP ×4 (05:03→16:21)
[2019-12-11] MEDS: HYDROmorphone 2 MG/ML VIAL 0.5 MG IVP (05:04)
[2019-12-11 05:05] VITALS: BP 120/72; PULSE 77; RESP 16; TEMP 38.8; O2SAT 96
[2019-12-11] MEDS: diphenhydrAMINE 50 MG/ML VIAL 25 MG IVP (05:05)
[2019-12-11 07:19] VITALS: BP 125/69; PULSE 61; RESP 16; TEMP 36.1; O2SAT 97
[2019-12-11] MEDS: POTASSIUM CHLORIDE/0.45% NACL 1,000 ML 125 MEQ IV ×2 (07:29→17:21)
[2019-12-11 08:37] LABS: Abs Immature Grans 0.11 10^3/uL (0.0-0.06); Absolute Basophil Count 0.01 10^3/uL (0.0-0.2); Absolute Lymphocyte Count 1.42 10^3/uL (1.2-3.4); Absolute Monocyte Count 0.82 10^3/uL (0.1-0.8); Basophils % 0.1; HCT 33.1 % (36.0-46.0); HGB 11.5 g/dL (11.2-15.7); Immature Grans % 0.8; Lymphocytes % 10.4; MCH 29.3 pg (27.0-33.0); MCHC 34.7 % (32.0-36.0); MCV 84.2 fL (80-95); MPV 11.8 fL (8.0-11.0); Neutrophils % 82.7; Nucleated RBC 0 %; Platelet Count 236 10^3/uL (130-400); RBC 3.93 10^6/uL (3.93-5.22); RDW 13.9 % (11.7-14.6); RDW-SD 42.5 fL; WBC 13.68 10^3/uL (4.4-10.8)
[2019-12-11 08:38] LABS: Absolute Neutrophil Count 11.31 10^3/uL (1.2-6.7)
[2019-12-11 08:42] LABS: ALT 20 U/L (14-59); AST 25 U/L (15-37); Albumin 3.4 g/dL (3.4-5.0); Alkaline Phosphatase 34 U/L (46-116); Anion Gap 10.3 mmol/L (3-11); BUN 7 mg/dL (7-18); Bilirubin, Total 0.5 mg/dL (0.2-1.0); CO2 24.7 mmol/L (21.0-32.0); CREATININE 0.83 mg/dL (0.55-1.02); Calcium 8.7 mg/dL (8.5-10.1); Chloride 103 mmol/L (98-107); Glucose 107 mg/dL (74-106); Magnesium 1.6 mg/dL (1.8-2.4); Potassium 3.4 mmol/L (3.5-5.1); Sodium 138 mmol/L (136-145); Total Protein 6.3 g/dL (6.4-8.2)
[2019-12-11] MEDS: Methylphenidate 10 MG TAB 20 MG PO ×3 (08:45→19:54)
[2019-12-11] MEDS: Fexofenadine 180 MG TAB PO (08:46)
[2019-12-11] MEDS: Calcium 600mg/Vit D 200U TAB 1 TAB PO ×2 (08:46→19:56)
[2019-12-11] MEDS: Lactobacillus Acidophilus CAP 1 CAP PO ×3 (08:46→19:56)
[2019-12-11] MEDS: valACYclovir 1,000 MG TAB 1000 MG PO (08:46)
[2019-12-11] MEDS: LORazepam 2 MG/ML VIAL 1 MG IVP ×3 (09:58→19:54)
[2019-12-11] MEDS: metroNIDAZOLE 500 MG/100 ML BAG 100 MG IVPB ×2 (09:58→17:22)
--- NOTE | 2019-12-11 10:38 | INITIAL_ITS ---
- If Service Date Differs Date of service: 12/11/19 Time of Service: 10:38 Care Management Initial Assess REASON FOR HOSPITALIZATION:: Hyperemesis PAST MEDICAL HISTORY/PAST SURGICAL HISTORY:: Hx of migraine headaches, Hx of DVT associated with , chronic anticoagulation, nephrolithiasis, recurrent DVT, asthma, GERD, Hypothyroidism, chronic back pain, chonic pelvic pain, panic disorder, anxiety disorder, ADHD, depression. Surgical: CARLO, BSO, chol ecystectomy, knee arthroplasty, abdominal hysterectomy, bilateral sapingectomy with oophorectomy, cervical conization/LEEP, left thumb surgery PREVIOUS FUNCTIONAL STATUS/SOCIAL/FAMILY SUPPORTS:: Suzie resides in [facility] with her son Braulio. She is disabled and identifies her support system as her son and sometimes her Mom.Suzie is independent with self care and activities of daily living. Suzie deals with chronic pain though is independent in the community at baseline. CURRENT FUNCTIONAL STATUS:: Suzie was sitting on her bed when CM met with her. She stated that she has lived half of her life in this hospital. She stated that she feels that some of the staff is against her, as she has been at [facility] so many times. She reported that she has been on her best behavior this admission. She reported that she asked to take a shower, which will happen this afternoon. CM brought her a word search book, at her request. CM will continue to follow. ADVANCE DIRECTIVES:: On file at [facility] agent is Braulio Rodriguez Has patient been provided with info about the portal/API?: Yes Did the patient sign up for the portal?: Yes (previously signed up) CODE STATUS:: Full Code INSURANCE COVERAGE / FINANCIAL ISSUES:: [facility]/ [facility] CURRENT HOME/COMMUNITY SERVICES/EQUIPMENT:: No current services at this time. PRIMARY CARE PHYSICIAN:: Dr. Pettit POTENTIAL DISCHARGE NEEDS:: Evaluations for further needs, follow up appointments PATIENT/FAMILY EDUCATION NEEDS:: Review discharge instructions regarding activity levels and medications, discussion of self care needs including ask me three. ANTICIPATED BARRIERS TO DISCHARGE:: None identified at this time. TRANSPORTATION:: Via private car with son at time of discharge. PLAN:: Anticipate Suzie will return home when medically cleared. Her son will drive her home via private vehicle when ready. She will follow up with her PCP and discharge plan of care. CM will continue to follow. Readmission - Within the Past 30 Days Yes or No: Y - Date of First Admission Date of 1st Admission: 12/08/19 - Date of this Admission Date of Admission: 12/10/19 - Office Visit Since 1st Admission Have you seen your PCP in the office since discharge?: No Had an appointment Been Scheduled?: Yes Date of Scheduled Appointment: 12/14/19 - I. Interview patient and/or Family Difficulty reaching your doctor or getting an office appt?: No Have you had trouble purchasing/ or taking medication?: No Have you had trouble with getting meals at home?: No Did you feel ready for discharge when you left the last time: Yes If patient did not receive services, were there orders at: No - Assessment for Readmission Summary of readmission circumstances, based upon interviews: Suzie stated that she felt ready for discharge, but woke up the next day feeling worse. She decided to return to the ER, and is happy that she did because she is now being treated for an infection. She stated that she has spent 'half of her life in this hospital'. She reported that she tries to deal with as much as she can prior to coming to the hospital, but that she is sick often.
[2019-12-11] MEDS: POTASSIUM CHLORIDE 20 MEQ/100 ML BAG 50 MEQ IVPB (10:58)
[2019-12-11] MEDS: Mometasone 220 MCG 14 DOSE INHALER IH ×2 (11:25→19:53)
[2019-12-11 11:44] VITALS: BP 123/67; PULSE 55; RESP 17; TEMP 36.5; O2SAT 97
--- NOTE | 2019-12-11 12:54 | PGE_ITS ---
Date of Service Date of service: 12/11/19 Time of Service: 12:55 Assessment and Plan Assessment and plan (1) Gastroenteritis: Start date: 12/11/19 Start time: 12:59 Status: Acute Assessment and plan: Evidenced by CT. not concerning on admission, however over night she did spike fevers and leukocytosis is trending up. Blood cultures pending. Started on flagyl will monitor with daily labs and symptoms. Initially obs, however she is now inpatient due to further work up and fevers. If blood c ultures negative and tolerating PO transition to PO flagyl and D/C in 24-48 hours. She needs to be discharged by thursday for Hematology appt. (2) Intractable nausea and vomiting: Start date: 12/11/19 Start time: 12:56 Status: Acute Assessment and plan: Improving. Vomited only 50 cc over night. Will change to clear diet tonight and trial PO, if she vomits or gets nauseated will make NPO, Lidocaine mixture was well tolerated. Will (3) Acute deep vein thrombosis (DVT) of left lower extremity: Start date: 12/11/19 Start time: 13:00 Status: Acute Assessment and plan: Continue treatment for DVT. Found prior to admission secondary to factor V leiden. History of multiple PE/DVT. Continue enoxaparin 80 mg Above case discussed with Dr. Mendoza who is in agreement. (4) DVT prophylaxis: Start date: 12/11/19 Start time: 13:01 Status: Acute Assessment and plan: As above. Subjective Subjective Patient reports: feels better Interval history since last seen: Feeling better, she tolerated with lidocaine mix, will give 3 times a day to help vomiting and pain. Denies CP, SOB, N/V/D. Will start on clears for dinner. Exam Const General: cooperative and no acute distress Nutritional Appearance: overweight Orientation: alert, awake and oriented x3 HENMT Head: normocephalic and atraumatic Eyes Cornea: corneas normal Pupils: PERRL EOM: EOM intact bilaterally Neck Neck: normal visual inspection, full ROM and no JVD Lymphatic: no lymphadenopathy noted and no lymphedema noted Resp Effort & Inspection: normal respiratory effort Auscultation: clear to auscultation bilaterally Cardio Jugular venous pressure: no JVD Rate: regular rate Rhythm: regular rhythm GI Inspection: normal to inspection Palpation: soft Auscultation: hypoactive bowel sounds General: deferred Skin General skin exam: no rashes or lesions noted Neuro General: patient alert, patient awake and patient oriented x3 Cognition: normal cognition Extrem General: normal to inspection, full ROM and no clubbing, cyanosis or edema Psych Speech and Movement: speech and movement normal Objective Objective Clinical Data: Abnormal lab results 12/10/19 12/10/19 12/11/19 Range/Units 14:20 14:20 08:03 WBC (4.4-10.8) 10^3/uL Hct (36.0-46.0) % MPV (8.0-11.0) fL Absolute Neutrophils (1.2-6.7) 10^3/uL Absolute Monocytes (0.1-0.8) 10^3/uL Potassium 3.4 L (3.5-5.1) mmol/L Glucose 107 H (74-106) mg/dL Magnesium 1.6 L (1.8-2.4) mg/dL Alkaline Phosphatase 34 L (46-116) U/L Total Protein 6.3 L (6.4-8.2) g/dL Urine Blood Trace-intact H (Negative) Urine RBC 3-5 H (0-2) HPF Urine Opiates Screen Positive A (Negative) Ur THC Screen Positive A (Negative) 12/11/19 Range/Units 08:03 WBC 13.68 H (4.4-10.8) 10^3/uL Hct 33.1 L (36.0-46.0) % MPV 11.8 H (8.0-11.0) fL Absolute Neutrophils 11.31 H (1.2-6.7) 10^3/uL Absolute Monocytes 0.82 H (0.1-0.8) 10^3/uL Potassium (3.5-5.1) mmol/L Glucose (74-106) mg/dL Magnesium (1.8-2.4) mg/dL Alkaline Phosphatase (46-116) U/L Total Protein (6.4-8.2) g/dL Urine Blood (Negative) Urine RBC (0-2) HPF Urine Opiates Screen (Negative) Ur THC Screen (Negative) Vital Signs Temperature 36.5 C 12/11/19 11:44 Temperature Source Temporal Artery Scan 12/11/19 11:44 Pulse 55 L 12/11/19 11:44 Pulse Rhythm Regular 12/11/19 05:05 Pulse 62 12/10/19 13:55 Respiratory Rate 17 12/11/19 11:44 Respiratory Effort 12/11/19 05:05 Respiratory Depth Normal 12/11/19 05:05 Respiratory Pattern Normal 12/11/19 05:05 Blood Pressure 123/67 12/11/19 11:44 Blood Pressure Mean 102 12/10/19 13:55 Pulse Oximetry 97 12/11/19 11:44 Oxygen Delivery Method Room Air 12/11/19 11:44 Oxygen Flow Rate 0 12/11/19 11:44 Pain Level 9 12/11/19 11:44 Comment 12/10/19 20:19 Intake & Output 12/10/19 12/11/19 12/11/19 23:59 11:59 23:59 Intake Total 1397.917 / 1397.917 Output Total 2400 / 2400 500 / 500 Balance -437.917 / -386.917 897.917 / 897.917 Weight 74 kg Intake: IV 1397.917 / 1397.917 Output: Urine 2400 / 2400 450 / 450 Emesis 50 / 50 Other: Urine Color Yellow Pale Yellow Urine Appearance Clear Clear Urine Odor Normal Voiding Methods Toilet Toilet Laboratory Results WBC 13.68 10^3/uL (4.4-10.8) H 12/11/19 08:03 RBC 3.93 10^6/uL (3.93-5.22) 12/11/19 08:03 Hgb 11.5 g/dL (11.2-15.7) 12/11/19 08:03 Hct 33.1 % (36.0-46.0) L 12/11/19 08:03 MCV 84.2 fL (80-95) 12/11/19 08:03 MCH 29.3 pg (27.0-33.0) 12/11/19 08:03 MCHC 34.7 % (32.0-36.0) 12/11/19 08:03 RDW 13.9 % (11.7-14.6) 12/11/19 08:03 Plt Count 236 10^3/uL (130-400) 12/11/19 08:03 MPV 11.8 fL (8.0-11.0) H 12/11/19 08:03 Immature Gran % 0.8 12/11/19 08:03 Neutrophils % 82.7 12/11/19 08:03 Lymphocytes % 10.4 12/11/19 08:03 Monocytes % 6.0 12/11/19 08:03 Eosinophils % 0.0 12/11/19 08:03 Basophils % 0.1 12/11/19 08:03 Nucleated RBC % 0 % 12/11/19 08:03 Absolute Neutrophils 11.31 10^3/uL (1.2-6.7) H 12/11/19 08:03 Absolute Lymphocytes 1.42 10^3/uL (1.2-3.4) 12/11/19 08:03 Absolute Monocytes 0.82 10^3/uL (0.1-0.8) H 12/11/19 08:03 Absolute Eosinophils 0.00 10^3/uL (0.0-0.7) 12/11/19 08:03 Absolute Basophils 0.01 10^3/uL (0.0-0.2) 12/11/19 08:03 PT 10.4 sec (9.3-11.0) 12/10/19 10:40 INR 1.0 (0.9-1.1) 12/10/19 10:40 Sodium 138 mmol/L (136-145) 12/11/19 08:03 Potassium 3.4 mmol/L (3.5-5.1) L 12/11/19 08:03 Chloride 103 mmol/L (98-107) 12/11/19 08:03 Carbon Dioxide 24.7 mmol/L (21.0-32.0) 12/11/19 08:03 Anion Gap 10.3 mmol/L (3-11) 12/11/19 08:03 BUN 7 mg/dL (7-18) 12/11/19 08:03 Creatinine 0.83 mg/dL (0.55-1.02) 12/11/19 08:03 Estimated GFR/1.73 m2 >= 60.00 (mL/min/1.73m2) 12/11/19 08:03 Glucose 107 mg/dL (74-106) H 12/11/19 08:03 Calcium 8.7 mg/dL (8.5-10.1) 12/11/19 08:03 Magnesium 1.6 mg/dL (1.8-2.4) L 12/11/19 08:03 Total Bilirubin 0.5 mg/dL (0.2-1.0) 12/11/19 08:03 AST 25 U/L (15-37) 12/11/19 08:03 ALT 20 U/L (14-59) 12/11/19 08:03 Alkaline Phosphatase 34 U/L (46-116) L 12/11/19 08:03 Total Protein 6.3 g/dL (6.4-8.2) L 12/11/19 08:03 Albumin 3.4 g/dL (3.4-5.0) 12/11/19 08:03 Lipase 136 U/L (73-393) 12/10/19 10:40 Urine Color Straw (Yellow) 12/10/19 14:20 Urine Clarity Clear (Clear) 12/10/19 14:20 Urine pH 7.5 (5-8) 12/10/19 14:20 Ur Specific [place] 1.020 (1.005-1.025) 12/10/19 14:20 Urine Protein Negative mg/dL (Negative) 12/10/19 14:20 Urine Ketones Negative mg/dL (Negative) 12/10/19 14:20 Urine Blood Trace-intact (Negative) H 12/10/19 14:20 Urine Nitrite Negative (Negative) 12/10/19 14:20 Urine Bilirubin Negative (Negative) 12/10/19 14:20 Urine Urobilinogen 0.2 EU/dL (Up TO 0.2) 12/10/19 14:20 Ur Leukocyte Esterase Negative (Negative) 12/10/19 14:20 Urine RBC 3-5 HPF (0-2) H 12/10/19 14:20 Urine WBC Negative HPF (0-5) 12/10/19 14:20 Ur Epithelial Cells Many HPF (Negative) 12/10/19 14:20 Urine Crystals Negative HPF (Negative) 12/10/19 14:20 Urine Bacteria Few HPF (Negative) 12/10/19 14:20 Urine Casts Negative LPF (Negative) 12/10/19 14:20 Urine Mucus Trace (Negative) 12/10/19 14:20 Urine Other Rare renal (Negative) 12/10/19 14:20 Ur Culture Indicated? No/sq. contamination 12/10/19 14:20 Urine Glucose Negative mg/dL (Negative) 12/10/19 14:20 Urine Opiates Screen Positive (Negative) A 12/10/19 14:20 Urine Methadone Screen Negative (Negative) 12/10/19 14:20 Ur Barbiturates Screen Negative (Negative) 12/10/19 14:20 Ur Tricyclics Screen Negative (Negative) 12/10/19 14:20 Ur Amphetamines Screen Negative (Negative) 12/10/19 14:20 U Benzodiazepines Scrn Negative (Negative) 12/10/19 14:20 Urine Cocaine Screen Negative (Negative) 12/10/19 14:20 Ur THC Screen Positive (Negative) A 12/10/19 14:20
[2019-12-11] MEDS: Pantoprazole 40 MG VIAL IVP (16:21)
[2019-12-11] MEDS: Sucralfate 1 GM TAB PO ×2 (16:21→22:00)
[2019-12-11] MEDS: Acetaminophen 325 MG TAB PO (19:55)
[2019-12-11] MEDS: Divalproex 500 MG TABEC PO (19:56)
[2019-12-11 19:57] VITALS: BP 128/76; PULSE 54; RESP 16; TEMP 37.4; O2SAT 97
[2019-12-11] MEDS: Docusate Sodium 100 MG CAP PO (19:57)
[2019-12-11] MEDS: clonazePAM 1 MG TAB PO (22:00)
[2019-12-12] VITALS (8 sets, daily range): BP systolic 120–180; BP diastolic 69–106; PULSE 42–74; RESP 16–20; TEMP 36.4–38.2; O2SAT 91–100
[2019-12-12] MEDS: POTASSIUM CHLORIDE/0.45% NACL 1,000 ML 125 MEQ IV (02:08)
[2019-12-12] MEDS: metroNIDAZOLE 500 MG/100 ML BAG 100 MG IVPB ×3 (02:08→19:42)
[2019-12-12] MEDS: Enoxaparin 80 MG/0.8 ML SYR SC ×2 (03:27→16:13)
[2019-12-12] MEDS: diphenhydrAMINE 50 MG/ML VIAL IVP (05:59)
[2019-12-12] MEDS: Mometasone 220 MCG 14 DOSE INHALER IH (08:35)
[2019-12-12 08:47] LABS: Abs Immature Grans 0.04 10^3/uL (0.0-0.06); Absolute Basophil Count 0.04 10^3/uL (0.0-0.2); Absolute Eosinophil Count 0.04 10^3/uL (0.0-0.7); Absolute Lymphocyte Count 1.53 10^3/uL (1.2-3.4); Absolute Monocyte Count 0.51 10^3/uL (0.1-0.8); Basophils % 0.4; Eosinophils % 0.4; HCT 37.4 % (36.0-46.0); HGB 12.5 g/dL (11.2-15.7); Immature Grans % 0.4; Lymphocytes % 15.7; MCH 29.1 pg (27.0-33.0); MCHC 33.4 % (32.0-36.0); MPV 11.2 fL (8.0-11.0); Monocytes % 5.2; Neutrophils % 77.9; Nucleated RBC 0 %; Platelet Count 235 10^3/uL (130-400); RDW 14.1 % (11.7-14.6); RDW-SD 43.5 fL; WBC 9.76 10^3/uL (4.4-10.8)
[2019-12-12 08:53] LABS: Anion Gap 11.6 mmol/L (3-11); BUN 8 mg/dL (7-18); CO2 24.4 mmol/L (21.0-32.0); CREATININE 0.91 mg/dL (0.55-1.02); Calcium 7.9 mg/dL (8.5-10.1); Chloride 103 mmol/L (98-107); Glucose 118 mg/dL (74-106); Magnesium 1.7 mg/dL (1.8-2.4); Potassium 3.3 mmol/L (3.5-5.1); Sodium 139 mmol/L (136-145)
[2019-12-12] MEDS: Ondansetron 4 MG/2 ML VIAL IVP (11:23)
[2019-12-12] MEDS: POTASSIUM CHLORIDE 20 MEQ/100 ML BAG 50 MEQ IVPB (11:26)
[2019-12-12] MEDS: Normal Saline Flush 10 ML SYR IVP ×2 (11:26→13:47)
--- NOTE | 2019-12-12 12:45 | RT.EKG_ITS ---
APPROVED REPORT Exam: Resting ECG Patient Location: I HR:57 bpm ECG Measurements Heart Rate 57 AXIS NE 161 P 40 QRSd 78 QRS -19 QT 440 T 61 QTc 430 Conclusion Sinus bradycardia...rate< 60 Low voltage, precordial leads...precordial leads <1.0mV
--- NOTE | 2019-12-12 12:46 | PGE_ITS ---
Date of Service Date of service: 12/12/19 Time of Service: 12:46 Assessment and Plan Assessment and plan (1) Intractable nausea and vomiting: Status: Acute Assessment and plan: Continues to report nausea and vomiting today. Continue IV fluids, hold diet, change back to n.p.o. for now. Continue PRN Phenergan, as needed Zofran added, continue IV PPI and lidocaine mixture. (2) Gastroenteritis: Status: Acute Assessment and plan: CT showed mild colonic wall edema. Flagyl initiated yesterday due to fevers and increasing leukocytosis. Blood cultures pending, stool cultures pending. Leukocytosis resolved, she remained afebrile overnight. Continue Flagyl, transition to oral antibiotics when she is no longer vomiting. (3) Left-sided chest wall pain: Status: Acute Assessment and plan: Reproducible on palpation, pain is primarily into glenohumeral joint on left side. Unlikely cardiac as it is reproducible on palpation. However, check EKG for ischemic changes. If no ischemic changes, treat topically. IV PPI ordered. On appropriate treatment for DVT. (4) Acute deep vein thrombosis (DVT) of left lower extremity: Status: Acute Assessment and plan: Noted prior to admission. Secondary to factor V Leiden deficiency. History of multiple PE/DVT. Continue Lovenox. (5) Panic disorder: Status: Chronic Assessment and plan: Continue home Klonopin. (6) Hypokalemia: Status: Acute Assessment and plan: Replete and monitor. (7) Hypomagnesemia: Status: Acute Assessment and plan: Replete and monitor. (8) DVT prophylaxis: Status: Acute Assessment and plan: On Lovenox for DVT treatment. Subjective Subjective Interval history since last seen: Continues to report nausea and vomiting. She was taking PO fluids, advised by nursing to stop drinking due to vomiting this morning. New c/o left sided chest wall, left shoulder discomfort. Started this morning. Reproducible on palpation. Constant, sharp, nothing relieves, nothing makes it worse. EKG ordered, if no ischemic changes, treat topically. Exam Narrative Exam Narrative: General: 39 year old female, sitting up in bed, holding left shoulder, rocking back and forth, minimally interactive. Does not make eye contact, answers minimal questions. Appears to be uncomfortable. HEENT: Normocephalic, atraumatic, pupils equal round, mucous membranes moist. Neck: Supple, no JVD. Cardiovascular: Heart has regular rate and rhythm, no murmur appreciated. Chest: Left upper chest into left shoulder with Respiratory: Respirations appear even and unlabored, lung sounds clear to auscultation throughout. GI: + Bowel sounds, abdomen soft, nontender on gentle palpation. Extremities: No significant edema. Known DVT to left lower extremity. Objective Objective Clinical Data: Abnormal lab results 12/12/19 12/12/19 Range/Units 08:35 08:35 MPV 11.2 H (8.0-11.0) fL Absolute Neutrophils 7.60 H (1.2-6.7) 10^3/uL Potassium 3.3 L (3.5-5.1) mmol/L Anion Gap 11.6 H (3-11) mmol/L Glucose 118 H (74-106) mg/dL Calcium 7.9 L (8.5-10.1) mg/dL Magnesium 1.7 L (1.8-2.4) mg/dL Vital Signs Temperature 36.7 C 12/12/19 11:32 Temperature Source Temporal Artery Scan 12/12/19 11:32 Pulse 58 L 12/12/19 11:32 Pulse Rhythm Regular 12/11/19 20:00 Pulse 62 12/10/19 13:55 Respiratory Rate 20 12/12/19 11:32 Respiratory Effort Non-Labored 12/11/19 20:00 Respiratory Depth Normal 12/11/19 20:00 Respiratory Pattern Normal 12/11/19 20:00 Blood Pressure 165/106 H 12/12/19 11:32 Blood Pressure Mean 102 12/10/19 13:55 Pulse Oximetry 98 12/12/19 11:32 Oxygen Delivery Method Room Air 12/12/19 11:32 Oxygen Flow Rate 0 12/12/19 11:32 Pain Level 9 12/12/19 11:32 Comment 12/12/19 07:23 Intake & Output 12/11/19 12/12/19 12/12/19 23:59 11:59 23:59 Intake Total 1411.666 / 2829.583 1070.833 / 1070.833 Output Total 250 / 1750 250 / 250 Balance 1161.666 / 1079.583 820.833 / 820.833 Weight 75 kg Intake: IV 931.666 / 2349.583 1070.833 / 1070.833 Oral 480 / 480 Output: Urine 250 / 1700 Emesis 250 / 250 Other: Urine Color Straw Urine Appearance Clear Urine Odor Normal Comment Void x1 in the toilet. Emesis Description Retching Bile Voiding Methods Toilet Laboratory Results WBC 9.76 10^3/uL (4.4-10.8) 12/12/19 08:35 RBC 4.30 10^6/uL (3.93-5.22) 12/12/19 08:35 Hgb 12.5 g/dL (11.2-15.7) 12/12/19 08:35 Hct 37.4 % (36.0-46.0) 12/12/19 08:35 MCV 87.0 fL (80-95) 12/12/19 08:35 MCH 29.1 pg (27.0-33.0) 12/12/19 08:35 MCHC 33.4 % (32.0-36.0) 12/12/19 08:35 RDW 14.1 % (11.7-14.6) 12/12/19 08:35 Plt Count 235 10^3/uL (130-400) 12/12/19 08:35 MPV 11.2 fL (8.0-11.0) H 12/12/19 08:35 Immature Gran % 0.4 12/12/19 08:35 Neutrophils % 77.9 12/12/19 08:35 Lymphocytes % 15.7 12/12/19 08:35 Monocytes % 5.2 12/12/19 08:35 Eosinophils % 0.4 12/12/19 08:35 Basophils % 0.4 12/12/19 08:35 Nucleated RBC % 0 % 12/12/19 08:35 Absolute Neutrophils 7.60 10^3/uL (1.2-6.7) H 12/12/19 08:35 Absolute Lymphocytes 1.53 10^3/uL (1.2-3.4) 12/12/19 08:35 Absolute Monocytes 0.51 10^3/uL (0.1-0.8) 12/12/19 08:35 Absolute Eosinophils 0.04 10^3/uL (0.0-0.7) 12/12/19 08:35 Absolute Basophils 0.04 10^3/uL (0.0-0.2) 12/12/19 08:35 PT 10.4 sec (9.3-11.0) 12/10/19 10:40 INR 1.0 (0.9-1.1) 12/10/19 10:40 Sodium 139 mmol/L (136-145) 12/12/19 08:35 Potassium 3.3 mmol/L (3.5-5.1) L 12/12/19 08:35 Chloride 103 mmol/L (98-107) 12/12/19 08:35 Carbon Dioxide 24.4 mmol/L (21.0-32.0) 12/12/19 08:35 Anion Gap 11.6 mmol/L (3-11) H 12/12/19 08:35 BUN 8 mg/dL (7-18) 12/12/19 08:35 Creatinine 0.91 mg/dL (0.55-1.02) 12/12/19 08:35 Estimated GFR/1.73 m2 >= 60.00 (mL/min/1.73m2) 12/12/19 08:35 Glucose 118 mg/dL (74-106) H 12/12/19 08:35 Calcium 7.9 mg/dL (8.5-10.1) L 12/12/19 08:35 Magnesium 1.7 mg/dL (1.8-2.4) L 12/12/19 08:35 Total Bilirubin 0.5 mg/dL (0.2-1.0) 12/11/19 08:03 AST 25 U/L (15-37) 12/11/19 08:03 ALT 20 U/L (14-59) 12/11/19 08:03 Alkaline Phosphatase 34 U/L (46-116) L 12/11/19 08:03 Total Protein 6.3 g/dL (6.4-8.2) L 12/11/19 08:03 Albumin 3.4 g/dL (3.4-5.0) 12/11/19 08:03 Lipase 136 U/L (73-393) 12/10/19 10:40 Urine Color Straw (Yellow) 12/10/19 14:20 Urine Clarity Clear (Clear) 12/10/19 14:20 Urine pH 7.5 (5-8) 12/10/19 14:20 Ur Specific [place] 1.020 (1.005-1.025) 12/10/19 14:20 Urine Protein Negative mg/dL (Negative) 12/10/19 14:20 Urine Ketones Negative mg/dL (Negative) 12/10/19 14:20 Urine Blood Trace-intact (Negative) H 12/10/19 14:20 Urine Nitrite Negative (Negative) 12/10/19 14:20 Urine Bilirubin Negative (Negative) 12/10/19 14:20 Urine Urobilinogen 0.2 EU/dL (Up TO 0.2) 12/10/19 14:20 Ur Leukocyte Esterase Negative (Negative) 12/10/19 14:20 Urine RBC 3-5 HPF (0-2) H 12/10/19 14:20 Urine WBC Negative HPF (0-5) 12/10/19 14:20 Ur Epithelial Cells Many HPF (Negative) 12/10/19 14:20 Urine Crystals Negative HPF (Negative) 12/10/19 14:20 Urine Bacteria Few HPF (Negative) 12/10/19 14:20 Urine Casts Negative LPF (Negative) 12/10/19 14:20 Urine Mucus Trace (Negative) 12/10/19 14:20 Urine Other Rare renal (Negative) 12/10/19 14:20 Ur Culture Indicated? No/sq. contamination 12/10/19 14:20 Urine Glucose Negative mg/dL (Negative) 12/10/19 14:20 Urine Opiates Screen Positive (Negative) A 12/10/19 14:20 Urine Methadone Screen Negative (Negative) 12/10/19 14:20 Ur Barbiturates Screen Negative (Negative) 12/10/19 14:20 Ur Tricyclics Screen Negative (Negative) 12/10/19 14:20 Ur Amphetamines Screen Negative (Negative) 12/10/19 14:20 U Benzodiazepines Scrn Negative (Negative) 12/10/19 14:20 Urine Cocaine Screen Negative (Negative) 12/10/19 14:20 Ur THC Screen Positive (Negative) A 12/10/19 14:20
--- NOTE | 2019-12-12 13:25 | W.NUTRFU ---
Date of service: 12/12/19 Time of Service: 13:25 Nutritional Follow up NOTE: 39 year old female admitted on 12/10/19 with hyperemesis,gastroenteritis possibley due to cannabinoid syndrome. Currently NPO as continues to c/o n/v. BMI indicates class 1 obesity. At risk for nutritional decline. Will monitor po intake, diet advancement. Time Spent in Nutritional Counseling and Treatment: 0 time spent face to face
[2019-12-12] MEDS: Pantoprazole 40 MG VIAL IVP (13:45)
[2019-12-12] MEDS: Ondansetron 4 MG/2 ML VIAL 8 MG IVP (13:46)
--- NOTE | 2019-12-12 15:10 | NUR.NOTE ---
Nursing Note: approximately 0800 Tabatha Do, RN notified of Pt's elevated blood pressure. Pt retching. Pt not very conversive with nursing. Retching, obviously doesn't feel good. tried to give cold washcloth, pt declined.
--- NOTE | 2019-12-12 15:18 | CMPROGNOTE_ITS ---
Care Management Progress Note S/O: Suzie is feeling ill throughout the day and unable to fully engage with this medical underwriter. CM continues to follow. A: 39 year old female admitted to [facility] on 12/11/19 for Hyperemesis P: Anticipate Suzie will return home when medically cleared. Her son will drive her home via private vehicle when ready. She will follow up with her PCP and discharge plan of care. CM will continue to follow.
[2019-12-12] MEDS: POTASSIUM CHLORIDE/0.45% NACL 1,000 ML 80 MEQ IV (15:53)
[2019-12-12] MEDS: Sucralfate 1 GM TAB PO (16:13)
[2019-12-12] MEDS: Magic Mouthwash 119 ML BTL PO (21:52)
[2019-12-12] MEDS: Lidocaine 5% Patch 1 PATCH TP (23:48)
[2019-12-13] VITALS (7 sets, daily range): BP systolic 138–159; BP diastolic 91–113; PULSE 55–75; RESP 16–18; TEMP 36.7–38.2; O2SAT 97–100
[2019-12-13] MEDS: Normal Saline Flush 10 ML SYR IVP ×5 (01:08→19:32)
[2019-12-13] MEDS: Ondansetron 4 MG/2 ML VIAL 8 MG IVP ×3 (01:08→18:23)
[2019-12-13 02:06] LABS: Bilirubin Small (Negative); Blood Trace-intact (Negative); Clarity Clear (Clear); Glucose Negative (Negative); Ketones 80 mg/dL (Negative); Leukocyte Esterase Negative (Negative); Nitrite Negative (Negative); Specific Gravity 1.025 (1.005-1.025); Urobilinogen 0.2 EU/dL (Up TO 0.2)
[2019-12-13 02:17] LABS: Bacteria Negative HPF (Negative); C & S Indicated? No/Sq. Contamination; Casts Negative LPF (Negative); Crystals Negative HPF (Negative); Epithelial Cells Many HPF (Negative); Mucus Negative (Negative); Other Cells Negative (Negative); WBC 0-2 HPF (0-5)
[2019-12-13] MEDS: metroNIDAZOLE 500 MG/100 ML BAG 100 MG IVPB ×3 (03:12→19:07)
[2019-12-13] MEDS: Enoxaparin 80 MG/0.8 ML SYR SC ×2 (03:20→16:59)
[2019-12-13] MEDS: POTASSIUM CHLORIDE/0.45% NACL 1,000 ML 80 MEQ IV (05:56)
[2019-12-13 07:30] LABS: MCH 28.8 pg (27.0-33.0); MCHC 33.6 % (32.0-36.0); MCV 85.5 fL (80-95); MPV 11.5 fL (8.0-11.0); Platelet Count 330 10^3/uL (130-400); RBC 5.32 10^6/uL (3.93-5.22); RDW 13.9 % (11.7-14.6); RDW-SD 42.5 fL
[2019-12-13 07:46] LABS: HCT 45.5 % (36.0-46.0); HGB 15.3 g/dL (11.2-15.7); WBC 14.07 10^3/uL (4.4-10.8)
[2019-12-13 08:07] LABS: Anion Gap 12.3 mmol/L (3-11); BUN 8 mg/dL (7-18); CO2 22.7 mmol/L (21.0-32.0); CREATININE 0.87 mg/dL (0.55-1.02); Calcium 8.1 mg/dL (8.5-10.1); Chloride 102 mmol/L (98-107); Glucose 103 mg/dL (74-106); Magnesium 1.9 mg/dL (1.8-2.4); Potassium 3.3 mmol/L (3.5-5.1); Sodium 137 mmol/L (136-145)
[2019-12-13] MEDS: Ketorolac 30 MG/ML VIAL IVP (09:15)
[2019-12-13] MEDS: diphenhydrAMINE 50 MG/ML VIAL IVP (09:15)
[2019-12-13] MEDS: Metoclopramide 10 MG/2 ML VIAL IVP (09:15)
[2019-12-13] MEDS: POTASSIUM CHLORIDE 10 MEQ/100 ML BAG 100 MEQ IVPB ×3 (09:16→13:04)
[2019-12-13] MEDS: Magic Mouthwash 119 ML BTL PO ×3 (10:35→20:36)
[2019-12-13] MEDS: MAGNESIUM SULFATE 1 GM/100 ML BAG IVPB (10:35)
--- NOTE | 2019-12-13 10:55 | SCONE_ITS ---
Date of service: 12/13/19 Time of Service: 10:55 Assessment and Plan Assessment and plan (1) Gastroenteritis: Status: Acute Assessment and plan: No changes in bowel habits. Fevers and enteritis may be related to possible bacterial infection. Recommended adding Ciprofloxacin with flagyl for treatment. Do not recommended Colonoscopy at this time given she has not had any BM changes, no hematochezia or melena. If she continues to have discomfort, will discuss Colonoscopy as an out-patient. No surgical interventions are indicated at this time. (2) Intractable nausea and vomiting: Status: Acute Assessment and plan: Improved since yesterday. Discussed with her nurse, whom reported that several anti-emetics and toradol have been added with good effect. No nausea or vomiting during this mornings exam. History of Present Illness History of Present Illness Chief Complaint: Nausea, Vomiting Narrative: 39 y/o female with nearly 2 week history of severe nausea and vomiting. She describes generalized abdominal pain, which she admits may be related to her retching. She denies anyone at home being ill. Enteritis noted on CT scan. She denies noting any changes to her bowel habits to include bloody stools or dark tarry colored stools. She tends to be constipated. She denies ETOH or Tobacco use. She does report using marijuana occasionally. 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) Asthma (Chronic 11/08/12) B12 deficiency (Chronic) Cannabis abuse with cannabis-induced disorder (Chronic) Cellulitis of left leg (Resolved) Chronic anticoagulation (Chronic) Chronic back pain greater than 3 months duration (Chronic 12/29/14) Cyst of fallopian tube (Resolved) Depression (Chronic) Factor V Leiden mutation (Chronic) GERD (gastroesophageal reflux disease) (Chronic) Hematuria (Resolved) History of DVT (deep vein thrombosis) (Chronic) Hypothyroidism (Chronic) Intractable vomiting with nausea (Acute) Left buttock abscess (Resolved) Left-sided chest wall pain (Acute) Migraine headache (Chronic) Nephrolithiasis (Chronic) Panic disorder (Chronic 03/21/16) Preseptal cellulitis of left eye (Inactive) Recurrent deep vein thrombosis (DVT) (Chronic) Right lower quadrant abdominal pain (Resolved) inflamed/ruptured fallopian tube on the right 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) Vaginal candidiasis (Inactive) Surgical History Abdominal hysterectomy (~2009) 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) Arthroplasty of knee (~1999) left Bilateral salpingectomy with oophorectomy (~2008) Cervical Conization/LEEP LEEP 2002 [facility] BX 2003 Cholecystectomy S/P appendectomy (Acute 12/24/17) Dr Veliz - Lap appy and lap excision of R fallopian tube remnant Status post cholecystectomy (Inactive) Status post LEEP (loop electrosurgical excision procedure) of cervix (Inactive) THUMB RECONSTRUCTION left; in childhood Social History Smoking/Tobacco Use Status: Never Alcohol Intake: current Alcohol Intake frequency: 0-2 drinks per day Drug use: Daily Substance use type: marijuana Do you feel safe at home: Yes Do you feel safe in your relationship?: Yes Additional Social history: Patient is and with one child. She denies any smoking or significant alcohol use, but admits to regular marijuana use. Exam Const General: cooperative and in distress mild Orientation: alert and oriented x3 Resp Effort & Inspection: normal respiratory effort, no audible wheezes and no cough GI Inspection: normal to inspection and non-distended Palpation: soft, no guarding and tender in the epigastrum Auscultation: normal bowel sounds Results Last Vital Signs Temp 36.9 C 12/13/19 08:06 Pulse 63 12/13/19 08:06 Resp 18 12/13/19 08:06 BP 159/105 H 12/13/19 08:06 Pulse Ox 98 12/13/19 08:06 Labs Result diagrams: 12/13/19 06:45 12/13/19 06:45 Labs: Laboratory Results - last 24 hr 12/13/19 12/13/19 12/13/19 01:40 06:45 06:45 WBC 14.07 H D RBC 5.32 H Hgb 15.3 D Hct 45.5 D MCV 85.5 MCH 28.8 MCHC 33.6 RDW 13.9 Plt Count 330 MPV 11.5 H Sodium 137 Potassium 3.3 L Chloride 102 Carbon Dioxide 22.7 Anion Gap 12.3 H BUN 8 Creatinine 0.87 Estimated GFR/1.73 m2 >= 60.00 Glucose 103 Calcium 8.1 L Magnesium 1.9 Urine Color Yellow Urine Clarity Clear Urine pH 7.0 Ur Specific [place] 1.025 Urine Protein 100 H Urine Ketones 80 H Urine Blood Trace-intact H Urine Nitrite Negative Urine Bilirubin Small H Urine Urobilinogen 0.2 Ur Leukocyte Esterase Negative Urine RBC 5-10 H Urine WBC 0-2 Ur Epithelial Cells Many Urine Crystals Negative Urine Bacteria Negative Urine Casts Negative Urine Mucus Negative Urine Other Negative Ur Culture Indicated? No/sq. contamination Urine Glucose Negative
[2019-12-13] MEDS: ACETAMINOPHEN 1,000 MG/100 ML BTL 400 MG IVPB ×2 (13:03→18:40)
[2019-12-13] MEDS: CIPROFLOXACIN 400 MG/200 ML BAG 200 MG IVPB (13:03)
[2019-12-13] MEDS: LORazepam 2 MG/ML VIAL 1 MG IVP ×2 (13:03→19:31)
[2019-12-13] MEDS: Pantoprazole 40 MG VIAL IVP (13:15)
--- NOTE | 2019-12-13 13:41 | PHACLINREV_ITS ---
Pharmacy Admission Review - Admission Clinical Review (Last Updated 12/12/19 @ 12:58 by Andie Alvarado NP) Hypomagnesemia (Acute) Hypokalemia (Acute) Left-sided chest wall pain (Acute) DVT prophylaxis (Acute) Gastroenteritis (Acute) Intractable nausea and vomiting (Acute) Acute deep vein thrombosis (DVT) of left lower extremity (Acute) aripiprazole [From Abilify] Allergy (Severe, Verified 12/10/19 10:56) Rash, hives doxycycline Allergy (Severe, Verified 12/10/19 10:56) Anaphylaxsis levetiracetam [From Keppra] Allergy (Severe, Verified 12/10/19 10:56) RASH/HIVES sulfamethoxazole Allergy (Severe, Verified 12/10/19 10:56) Hives venom-honey bee Allergy (Severe, Verified 12/10/19 10:56) unknown Penicillins Allergy (Intermediate, Verified 12/10/19 10:56) Skin Rash chlorhexidine Allergy (Unknown, Verified 12/10/19 10:56) unknown Sulfa (Sulfonamide Antibiotics) Allergy (Verified 12/10/19 10:56) mold Adverse Reaction (Severe, Verified 12/10/19 10:56) Wheezing oxycodone [Oxycodone] Adverse Reaction (Severe, Verified 12/10/19 10:56) vomits paroxetine Adverse Reaction (Severe, Verified 12/10/19 10:56) Irritability and anger dicloxacillin [Dicloxacillin] Adverse Reaction (Mild, Verified 12/10/19 10:56) Nausea gabapentin Adverse Reaction (Mild, Verified 12/10/19 10:56) hives prednisone Adverse Reaction (Verified 12/10/19 10:56) Agitation trazodone Adverse Reaction (Verified 12/10/19 10:56) shortness of breath verapamil [Verapamil] Adverse Reaction (Verified 12/10/19 10:56) Worsening migraine nuts Allergy (Severe, Uncoded 12/10/19 10:56) Anaphylaxsis Height 5 ft 1 in Weight 72.9 kg - Renal Dosing Renal Dosing: BUN 8 mg/dL (7-18) 12/13/19 06:45 Creatinine 0.87 mg/dL (0.55-1.02) 12/13/19 06:45 Medications needing adjustments: Reviewed (Crcl ~78.4 mL/min using adjusted body weight. Current meds okay.) - Anticoagulation Anticoagulation: Hgb 15.3 g/dL (11.2-15.7) D 12/13/19 06:45 Hct 45.5 % (36.0-46.0) D 12/13/19 06:45 Plt Count 330 10^3/uL (130-400) 12/13/19 06:45 INR 1.0 (0.9-1.1) 12/10/19 10:40 Creatinine 0.87 mg/dL (0.55-1.02) 12/13/19 06:45 DVT Prohphylaxis: N/A Therapeutic Anticoagulation: Reviewed Medications: Enoxaparin (therapeutic dosing of enoxaparin due to recent DVT) - Opiate Usage Evaluate Pain Scale/Pains Meds: Reviewed Scheduled Bowel Reg ordered if on Opiates?: Yes - Relevant Labs Sodium 137 mmol/L (136-145) 12/13/19 06:45 Potassium 3.3 mmol/L (3.5-5.1) L 12/13/19 06:45 Chloride 102 mmol/L (98-107) 12/13/19 06:45 Magnesium 1.9 mg/dL (1.8-2.4) 12/13/19 06:45 Electrolytes, C-Reactive P, ESR: Reviewed (K+ same as yesterday despite replacement, mag up slightly.) - DM Control DM Control: Glucose 103 mg/dL (74-106) 12/13/19 06:45 Insulin Dosing: N/A - Heart Failure/RI EF%, KACIE's, B-Blockers, Diuretics: N/A - BP Control BP Control: Blood Pressure 153/99 Blood Pressure 159/105 Blood Pressure 153/101 If elevated: Reviewed (not on anything at home, has been back and forth between elevated and within normal limits.) - Qtc Review If Elevated: N/A (QTc 430- pt is on multiple QT prolonging meds and K+ was low increasing pt's risk. Provider is aware and watching this.) - IV to PO Switch IV Medications: Reviewed (watch for change to PO once N/V improves) - Home Meds Home Med List reviewed: Intervened (Unsure if med rec done on admission as home med list was unconfirmed. Confirmed the meds I could using external med history. Multiple anticholinergic meds:cyproheptadine, diphenhydramine, fexofenadine, and iptratropium. Multiple [employer] depressants: clonazepam, cyproheptadine, diphenhydramine, fexofenadine, hydrocodone/APAP, topiramate. Separate administration of levothyroxine from citcracal.) Relevent Home Meds Not ordered & why?: citrical, clonazepam (has lorazepam ordered), cyproheptadine, epinephrine(PRN), fluticasone (has mometasone ordered), ipratropium/albuterol (PRN), levothyroxine (will mention to provider), omeprazole (has pantoprazole ordered), sumatriptan (PRN) - Current meds Current Medication Order Review: Reviewed - Comments Comments/Follow Ups: Watch BP, K+, mag and for med changes (IV to PO, levothyroxine?, QT prolonging meds) Antibiotic Activity - Pharmacy Antibiotic Review Pharmacy Antibiotic Activity: Abx regimen adjustment (ciprofloxacin added, metronidazole continues. pt febrile yesterday, afebrile so far today. Initial BC no growth @48 hours, repeat BC pending.)
[2019-12-13] MEDS: Sucralfate 1 GM TAB PO ×2 (16:58→22:10)
--- NOTE | 2019-12-13 16:58 | PDOC.CMPRO ---
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 She continues to have pain, and nausea. CM continues to follow. A: 39 year old female admitted to [facility] on 12/11/19 for Hyperemesis P: Anticipate Suzie will return home when medically cleared. Her son will drive her home via private vehicle when ready. She will follow up with her PCP and discharge plan of care. CM will continue to follow.
[2019-12-13] MEDS: clonazePAM 1 MG TAB PO (21:08)
[2019-12-13] MEDS: Lidocaine 5% Patch 1 PATCH TP (21:11)
[2019-12-13] MEDS: Docusate Sodium 100 MG CAP PO (22:07)
[2019-12-14] MEDS: CIPROFLOXACIN 400 MG/200 ML BAG 200 MG IVPB ×2 (00:11→12:25)
[2019-12-14] MEDS: ACETAMINOPHEN 1,000 MG/100 ML BTL 400 MG IVPB ×3 (00:11→12:25)
[2019-12-14] MEDS: metroNIDAZOLE 500 MG/100 ML BAG 100 MG IVPB ×3 (02:12→18:13)
[2019-12-14] MEDS: LORazepam 2 MG/ML VIAL 1 MG IVP ×4 (02:34→21:17)
[2019-12-14 03:52] VITALS: BP 160/108; PULSE 75; RESP 18; TEMP 36.8; O2SAT 98
[2019-12-14] MEDS: Enoxaparin 80 MG/0.8 ML SYR SC ×2 (04:49→18:15)
[2019-12-14 09:13] LABS: Anion Gap 12.4 mmol/L (3-11); BUN 9 mg/dL (7-18); CO2 21.6 mmol/L (21.0-32.0); CREATININE 0.96 mg/dL (0.55-1.02); Calcium 7.8 mg/dL (8.5-10.1); Chloride 99 mmol/L (98-107); Glucose 118 mg/dL (74-106); Potassium 3.9 mmol/L (3.5-5.1); Sodium 133 mmol/L (136-145)
[2019-12-14] MEDS: Ondansetron 4 MG/2 ML VIAL 8 MG IVP ×2 (09:15→18:15)
[2019-12-14] MEDS: Normal Saline Flush 10 ML SYR IVP ×3 (09:16→16:05)
[2019-12-14 09:18] LABS: Abs Immature Grans 0.06 10^3/uL (0.0-0.06); Absolute Basophil Count 0.03 10^3/uL (0.0-0.2); Absolute Lymphocyte Count 2.36 10^3/uL (1.2-3.4); Basophils % 0.2; Eosinophils % 0.1; HCT 46.2 % (36.0-46.0); HGB 16.1 g/dL (11.2-15.7); Immature Grans % 0.4; Lymphocytes % 17.1; MCH 29.4 pg (27.0-33.0); MCHC 34.8 % (32.0-36.0); MCV 84.3 fL (80-95); MPV 11.2 fL (8.0-11.0); Monocytes % 7.8; Neutrophils % 74.4; Nucleated RBC 0 %; Platelet Count 362 10^3/uL (130-400); RBC 5.48 10^6/uL (3.93-5.22); RDW 14.1 % (11.7-14.6); RDW-SD 42.6 fL; WBC 13.78 10^3/uL (4.4-10.8)
[2019-12-14] MEDS: POTASSIUM CHLORIDE/0.45% NACL 1,000 ML 80 MEQ IV (09:20)
[2019-12-14 09:22] LABS: Absolute Eosinophil Count 0.01 10^3/uL (0.0-0.7); Absolute Monocyte Count 1.07 10^3/uL (0.1-0.8); Absolute Neutrophil Count 10.25 10^3/uL (1.2-6.7)
[2019-12-14 10:55] LABS: Bilirubin Small (Negative); Blood Small (Negative); Clarity Clear (Clear); Glucose Negative (Negative); Ketones 80 mg/dL (Negative); Leukocyte Esterase Negative (Negative); Nitrite Negative (Negative); Specific Gravity >= 1.030 (1.005-1.025); Urobilinogen 0.2 EU/dL (Up TO 0.2); pH 6.5 (5-8)
[2019-12-14 11:10] LABS: Bacteria Negative HPF (Negative); C & S Indicated? No/Sq. Contamination; Casts Negative LPF (Negative); Crystals Negative HPF (Negative); Epithelial Cells Many HPF (Negative); Mucus Negative (Negative); WBC 0-2 HPF (0-5)
[2019-12-14] MEDS: Ketorolac 30 MG/ML VIAL IVP ×2 (11:14→21:17)
[2019-12-14 11:38] LABS: C-Reactive Protein < 0.05 mg/dL (0.0-0.3)
[2019-12-14 12:19] LABS: Procalcitonin < 0.1 ng/mL
[2019-12-14] MEDS: Pantoprazole 40 MG VIAL IVP (12:24)
[2019-12-14 14:53] VITALS: BP 157/99; PULSE 72; RESP 18; TEMP 37; O2SAT 98
[2019-12-14] MEDS: MORPHine 2 MG/ML SYR 1 MG IVP (15:22)
[2019-12-14] MEDS: Magic Mouthwash 119 ML BTL PO (15:23)
--- NOTE | 2019-12-14 15:55 | W.PM.PROGNOT ---
Date of Service Date of service: 12/14/19 Time of Service: 15:57 Assessment and Plan Assessment and plan (1) Fever: Start date: 12/14/19 Start time: 16:36 Status: Acute Assessment and plan: Continues to have fevers, last one at 2036 last night. On cipro and flagyl for gastroenteritis. Unknown source of fever at this time, possible it is gastroenteritis, urinalysis negative, blood cultures negative. Repeat cultures. Will continue to monitor ,Procalcitonin checked less than 0.1 with CRP normal. This could be a viral illness as well. consider as part of differential. MRI pending. Qualifiers: Fever type: unspecified Qualified Code(s): R50.9 - Fever, unspecified (2) Gastroenteritis: Start date: 12/14/19 Start time: 16:36 Status: Acute Assessment and plan: Evidenced by CT. not concerning on admission, however continues to spike fevers. She was afebrile on admission with normal WBC Repeat Blood cultures pending so far she has negative blood cultures. On flaggyl with erasmo, Spoke with [facility], they are not concerned at this time about CT and bowels, feel this could be worked up as an outpatient. They recommend referral on discharge. (3) Intractable nausea and vomiting: Start date: 12/14/19 Start time: 16:43 Status: Acute Assessment and plan: Continues to have vomiting despite appropriate treatment. While examining she did have an episode with wretching without bile. (4) Acute deep vein thrombosis (DVT) of left lower extremity: Start date: 12/14/19 Start time: 16:45 Status: Acute Assessment and plan: Continue treatment for DVT. Found prior to admission secondary to factor V leiden. History of multiple PE/DVT. Continue enoxaparin 80 mg She has appt with hematology on Thursday to discuss further treatment of DVT. Given history of infections she could benefit from a DOAC. Above case discussed with Dr. Mendoza who is in agreement. (5) DVT prophylaxis: Start date: 12/14/19 Start time: 16:46 Status: Acute Assessment and plan: As above. Subjective Subjective Patient reports: fever Interval history since last seen: No improvement. Continues to have fever with leukocytosis. Spoke with GI regarding patient case, they don't feel at this time patient needs a colonoscopy they were not too concerned with the bowel more the abscess. Dr. Eubanks from [facility] did recommend outpatient referral to their office for a work up with colonoscopy. Abscess ultrasound preformed by Dr. Mendoza to assess for possible I&D however no evidence of fluid collection. 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 Full exam of skin preformed no signs of open areas or wounds. MRI head ordered to r/o possible causes of vomiting and fever. MRI pending. Exam Const General: cooperative and no acute distress Nutritional Appearance: overweight Orientation: alert, awake and oriented x3 HENMT Head: normocephalic and atraumatic Eyes Cornea: corneas normal Pupils: PERRL EOM: EOM intact bilaterally Neck Neck: normal visual inspection, full ROM and no JVD Lymphatic: no lymphadenopathy noted and no lymphedema noted Resp Effort & Inspection: normal respiratory effort Auscultation: clear to auscultation bilaterally Cardio Jugular venous pressure: no JVD Rate: regular rate Rhythm: regular rhythm GI Inspection: normal to inspection Palpation: soft Auscultation: hypoactive bowel sounds General: deferred Skin General skin exam: no rashes or lesions noted Neuro General: patient alert, patient awake and patient oriented x3 Cognition: normal cognition Extrem General: normal to inspection, full ROM and no clubbing, cyanosis or edema Psych Speech and Movement: speech and movement normal Objective Objective Clinical Data: Abnormal lab results 12/14/19 12/14/19 12/14/19 Range/Units 08:50 08:50 10:40 WBC 13.78 H (4.4-10.8) 10^3/uL RBC 5.48 H (3.93-5.22) 10^6/uL Hgb 16.1 H (11.2-15.7) g/dL Hct 46.2 H (36.0-46.0) % MPV 11.2 H (8.0-11.0) fL Absolute Neutrophils 10.25 H (1.2-6.7) 10^3/uL Absolute Monocytes 1.07 H (0.1-0.8) 10^3/uL Sodium 133 L (136-145) mmol/L Anion Gap 12.4 H (3-11) mmol/L Glucose 118 H (74-106) mg/dL Calcium 7.8 L (8.5-10.1) mg/dL Ur Specific [place] >= 1.030 H (1.005-1.025) Urine Protein 100 H (Negative) mg/dL Urine Ketones 80 H (Negative) mg/dL Urine Blood Small H (Negative) Urine Bilirubin Small H (Negative) Urine RBC 3-5 H (0-2) HPF Vital Signs Temperature 37.0 C 12/14/19 14:53 Temperature Source Temporal Artery Scan 12/14/19 14:53 Pulse 72 12/14/19 14:53 Pulse Rhythm Regular 12/14/19 08:30 Pulse 62 12/10/19 13:55 Respiratory Rate 18 12/14/19 14:53 Respiratory Effort Non-Labored 12/14/19 08:30 Respiratory Depth Normal 12/14/19 08:30 Respiratory Pattern Normal 12/14/19 08:30 Blood Pressure 157/99 H 12/14/19 14:53 Blood Pressure Mean 102 12/10/19 13:55 Pulse Oximetry 98 12/14/19 14:53 Oxygen Delivery Method Room Air 12/14/19 14:53 Oxygen Flow Rate 0 12/14/19 14:53 Pain Level 10 12/14/19 14:53 Comment 12/13/19 08:06 Intake & Output 12/13/19 12/14/19 12/14/19 23:59 11:59 23:59 Intake Total 1901 / 3 561 / 637 76 / 637 Output Total 100 / 100 Balance 1901 / 270 561 / 537 -24 / 537 Weight 70.9 kg Intake: IV 190 / 3253 561 / 612 51 / 612 Oral Output: Emesis 100 / 100 Other: Emesis Description Retching Bile Laboratory Results WBC 13.78 10^3/uL (4.4-10.8) H 12/14/19 08:50 RBC 5.48 10^6/uL (3.93-5.22) H 12/14/19 08:50 Hgb 16.1 g/dL (11.2-15.7) H 12/14/19 08:50 Hct 46.2 % (36.0-46.0) H 12/14/19 08:50 MCV 84.3 fL (80-95) 12/14/19 08:50 MCH 29.4 pg (27.0-33.0) 12/14/19 08:50 MCHC 34.8 % (32.0-36.0) 12/14/19 08:50 RDW 14.1 % (11.7-14.6) 12/14/19 08:50 Plt Count 362 10^3/uL (130-400) 12/14/19 08:50 MPV 11.2 fL (8.0-11.0) H 12/14/19 08:50 Immature Gran % 0.4 12/14/19 08:50 Neutrophils % 74.4 12/14/19 08:50 Lymphocytes % 17.1 12/14/19 08:50 Monocytes % 7.8 12/14/19 08:50 Eosinophils % 0.1 12/14/19 08:50 Basophils % 0.2 12/14/19 08:50 Nucleated RBC % 0 % 12/14/19 08:50 Absolute Neutrophils 10.25 10^3/uL (1.2-6.7) H 12/14/19 08:50 Absolute Lymphocytes 2.36 10^3/uL (1.2-3.4) 12/14/19 08:50 Absolute Monocytes 1.07 10^3/uL (0.1-0.8) H 12/14/19 08:50 Absolute Eosinophils 0.01 10^3/uL (0.0-0.7) 12/14/19 08:50 Absolute Basophils 0.03 10^3/uL (0.0-0.2) 12/14/19 08:50 PT 10.4 sec (9.3-11.0) 12/10/19 10:40 INR 1.0 (0.9-1.1) 12/10/19 10:40 Sodium 133 mmol/L (136-145) L 12/14/19 08:50 Potassium 3.9 mmol/L (3.5-5.1) 12/14/19 08:50 Chloride 99 mmol/L (98-107) 12/14/19 08:50 Carbon Dioxide 21.6 mmol/L (21.0-32.0) 12/14/19 08:50 Anion Gap 12.4 mmol/L (3-11) H 12/14/19 08:50 BUN 9 mg/dL (7-18) 12/14/19 08:50 Creatinine 0.96 mg/dL (0.55-1.02) 12/14/19 08:50 Estimated GFR/1.73 m2 >= 60.00 (mL/min/1.73m2) 12/14/19 08:50 Glucose 118 mg/dL (74-106) H 12/14/19 08:50 Lactate 1.0 mmol/L (0.6-1.4) 12/14/19 11:10 Calcium 7.8 mg/dL (8.5-10.1) L 12/14/19 08:50 Magnesium 1.9 mg/dL (1.8-2.4) 12/13/19 06:45 Total Bilirubin 0.5 mg/dL (0.2-1.0) 12/11/19 08:03 AST 25 U/L (15-37) 12/11/19 08:03 ALT 20 U/L (14-59) 12/11/19 08:03 Alkaline Phosphatase 34 U/L (46-116) L 12/11/19 08:03 C-Reactive Protein < 0.05 mg/dL (0.0-0.3) 12/14/19 11:10 Total Protein 6.3 g/dL (6.4-8.2) L 12/11/19 08:03 Albumin 3.4 g/dL (3.4-5.0) 12/11/19 08:03 Lipase 136 U/L (73-393) 12/10/19 10:40 Procalcitonin < 0.1 ng/mL 12/14/19 11:10 Urine Color Wandy (Yellow) 12/14/19 10:40 Urine Clarity Clear (Clear) 12/14/19 10:40 Urine pH 6.5 (5-8) 12/14/19 10:40 Ur Specific [place] >= 1.030 (1.005-1.025) H 12/14/19 10:40 Urine Protein 100 mg/dL (Negative) H 12/14/19 10:40 Urine Ketones 80 mg/dL (Negative) H 12/14/19 10:40 Urine Blood Small (Negative) H 12/14/19 10:40 Urine Nitrite Negative (Negative) 12/14/19 10:40 Urine Bilirubin Small (Negative) H 12/14/19 10:40 Urine Urobilinogen 0.2 EU/dL (Up TO 0.2) 12/14/19 10:40 Ur Leukocyte Esterase Negative (Negative) 12/14/19 10:40 Urine RBC 3-5 HPF (0-2) H 12/14/19 10:40 Urine WBC 0-2 HPF (0-5) 12/14/19 10:40 Ur Epithelial Cells Many HPF (Negative) 12/14/19 10:40 Urine Crystals Negative HPF (Negative) 12/14/19 10:40 Urine Bacteria Negative HPF (Negative) 12/14/19 10:40 Urine Casts Negative LPF (Negative) 12/14/19 10:40 Urine Mucus Negative (Negative) 12/14/19 10:40 Urine Other Negative (Negative) 12/13/19 01:40 Ur Culture Indicated? No/sq. contamination 12/14/19 10:40 Urine Glucose Negative mg/dL (Negative) 12/14/19 10:40 Urine Opiates Screen Positive (Negative) A 12/10/19 14:20 Urine Methadone Screen Negative (Negative) 12/10/19 14:20 Ur Barbiturates Screen Negative (Negative) 12/10/19 14:20 Ur Tricyclics Screen Negative (Negative) 12/10/19 14:20 Ur Amphetamines Screen Negative (Negative) 12/10/19 14:20 U Benzodiazepines Scrn Negative (Negative) 12/10/19 14:20 Urine Cocaine Screen Negative (Negative) 12/10/19 14:20 Ur THC Screen Positive (Negative) A 12/10/19 14:20
[2019-12-14] MEDS: Gadoterate meglumine 20 ML VIAL 15 ML IVP (16:07)
--- NOTE | 2019-12-14 16:30 | DI.MRI_ITS ---
EXAM: MR BRAIN WO/W CLINICAL HISTORY: R/O infections,nausea, vomiting, fever TECHNIQUE: Multiplanar multisequence MRI of the brain was performed. Additional post contrast T1 weighted axial and coronal images were obtained. COMPARISON: No exams were available for comparison FINDINGS: The ventricular system is normal in appearances. There are few minimal focal areas abnormal signal seen T2 weighted and FLAIR imaging in the periventr icular frontal white matter bilaterally, findings are nonspecific and may represent early microvascul ar ischemic change. No other signal abnormality identified in the brain. The orbital and temporal bone structures appears intact as does the pituitary. Diffusion weighted imaging shows No evidence of infarction. Susceptibility weighted imaging shows no evidence of intracranial hemorrhage. There is normal flow void in the [place] vasculature. Post contrast imaging shows no enhancing lesion or mass lesion IMPRESSION: Minimal signal abnormalities in periventricular frontal white matter bilaterally, sparing the corpus callosum, likely very early microvascular ischemic changes. Other etiologies including demyelinating process or inflammatory process not absolutely excluded, follow-up MRI suggested in 12 months.. DATA REPOSITORY:
--- NOTE | 2019-12-14 16:30 | PDOC.CMPRO ---
- If Service Date Differs Date of service: 12/14/19 Time of Service: 16:30 Care Management Progress Note S/O: Suzie was not in her room when CM attempted to visit with her, as she was having an MRI. Per report, her pain, nausea and vomiting have not been improving. She had a surgical consult yesterday and additional testing today, looking for more information in order to resolve these issues. CM will continue to follow. A: Suzie is a 39 year old female admitted to [facility] on 12/11/19 for Hyperemesis P: Anticipate Suzie will return home when medically cleared. Her son will drive her home via private vehicle when ready. She will follow up with her PCP and discharge plan of care. CM will continue to follow.
--- NOTE | 2019-12-14 17:28 | DI.VRAD_ITS ---
PROCEDURE INFORMATION: Exam: MR Head Without and With Contrast Exam date and time: 12/14/2019 4:08 PM Age: 39 years old Clinical indication: Fever and other: Nausea, vomiting; Patient HX: Ear surgeries, earrings placed bilateral unable to remove. Surgical steel barbell earrings. TECHNIQUE: Imaging protocol: MR of the head without and with intravenous contrast. 3D rendering (Not supervised by radiologist): MIP and/or 3D reconstructed images were created by the technologist. Contrast material: DOTAREM; Contrast volume: 15 ml; Contrast route: INTRAVENOUS (IV); COMPARISON: CT HEAD WO 09/16/2019 10:41 PM FINDINGS: Limitations: Motion artifact degrades the images. Brain: No acute infarct. Ventricles: Normal. No ventriculomegaly. Bones/joints: Unremarkable. Sinuses: Normal as visualized. No acute sinusitis. Mastoid air cells: Normal as visualized. No mastoid effusion. Orbits: Unremarkable. Soft tissues: Unremarkable. Other findings: No abnormal enhancement. No hemorrhage. IMPRESSION: No acute intracranial abnormality. Dictated and Authenticated by: Joe Cyr MD. Ordering:JOE Torres MD
[2019-12-14] MEDS: Sucralfate 1 GM TAB PO (18:16)
[2019-12-14 19:54] VITALS: BP 123/88; PULSE 75; RESP 17; TEMP 36.7; O2SAT 97
[2019-12-14] MEDS: diphenhydrAMINE 25 MG CAP PO (19:56)
[2019-12-14] MEDS: Lidocaine 5% Patch 1 PATCH TP (21:18)
[2019-12-14 23:18] VITALS: BP 118/76; PULSE 70; RESP 17; TEMP 37; O2SAT 98
--- NOTE | 2019-12-15 | DI.NM_ITS ---
EXAM: NM ABSCESS IMG WHOLE BODY GRP CLINICAL HISTORY: unknown source with leukocytosis and fever. COMPARISON: No exams were available for comparison EXAMINATION: 24.3 millicuries of technetium 99 labeled serous tech labeled autologous white blood ce lls were injected. There is typical uptake in marrow, liver, and spleen. Mildly increased uptake in a grossly linear orientation in right lower quadrant could represent colonic uptake, possible coliti s. CT of December 09 also raised the possibility of colitis. If clinically indicated, additional evalua tion with colonoscopy or IV and oral contrast enhanced CT may be considered. FINDINGS: IMPRESSION:
[2019-12-15] MEDS: Normal Saline 1,000 ML 110 ML IV (00:50)
[2019-12-15] MEDS: CIPROFLOXACIN 400 MG/200 ML BAG 200 MG IVPB ×2 (00:50→12:58)
[2019-12-15] MEDS: diphenhydrAMINE 25 MG CAP PO (00:51)
[2019-12-15] MEDS: metroNIDAZOLE 500 MG/100 ML BAG 100 MG IVPB ×2 (02:50→09:24)
[2019-12-15 03:18] VITALS: BP 97/66; PULSE 82; RESP 17; TEMP 36.5; O2SAT 97
[2019-12-15] MEDS: Normal Saline Flush 10 ML SYR IVP ×2 (03:35→12:59)
[2019-12-15] MEDS: LORazepam 2 MG/ML VIAL 1 MG IVP (03:35)
[2019-12-15] MEDS: Enoxaparin 80 MG/0.8 ML SYR SC (03:37)
[2019-12-15] MEDS: Levothyroxine 125 MCG TAB PO (06:49)
[2019-12-15 07:07] LABS: HCT 40.1 % (36.0-46.0); HGB 13.3 g/dL (11.2-15.7); MCH 29.3 pg (27.0-33.0); MCHC 33.2 % (32.0-36.0); MCV 88.3 fL (80-95); MPV 10.7 fL (8.0-11.0); Platelet Count 209 10^3/uL (130-400); RBC 4.54 10^6/uL (3.93-5.22); RDW 14.4 % (11.7-14.6); RDW-SD 45.5 fL; WBC 7.55 10^3/uL (4.4-10.8)
[2019-12-15 07:15] LABS: Anion Gap 8.5 mmol/L (3-11); BUN 14 mg/dL (7-18); CO2 26.5 mmol/L (21.0-32.0); CREATININE 1.12 mg/dL (0.55-1.02); Calcium 7.4 mg/dL (8.5-10.1); Chloride 103 mmol/L (98-107); Estimated GFR 53.88 (mL/min/1.73m2); Glucose 93 mg/dL (74-106); Potassium 3.6 mmol/L (3.5-5.1); Sodium 138 mmol/L (136-145)
[2019-12-15] MEDS: Mometasone 220 MCG 14 DOSE INHALER IH (07:37)
[2019-12-15 07:50] VITALS: BP 100/65; PULSE 73; RESP 18; TEMP 36; O2SAT 98
[2019-12-15] MEDS: Magic Mouthwash 119 ML BTL PO (09:24)
[2019-12-15] MEDS: Ketorolac 30 MG/ML VIAL IVP (09:24)
[2019-12-15] MEDS: Calcium 600mg/Vit D 200U TAB 1 TAB PO (09:25)
[2019-12-15] MEDS: Lactobacillus Acidophilus CAP 1 CAP PO ×2 (09:25→14:55)
[2019-12-15] MEDS: Docusate Sodium 100 MG CAP PO (09:25)
[2019-12-15] MEDS: Sucralfate 1 GM TAB PO ×2 (09:25→12:58)
--- NOTE | 2019-12-15 10:06 | PDOC.CMDIS ---
LACE Index Scoring Tool - Questions: Length of Stay (in days): 4 - 6 Acuity (Admit via E.D.?): Yes E.D. Visits: 5 - Answers: Total Score: 11 Risk of Readmission: High Risk Care Management Discharge Reason for Hospitalization: Hyperemesis Discharge Plan: Suzie will return home when medically cleared. Her son will drive her home via private vehicle when ready. She will follow up with her PCP and discharge plan of care. Patient/Family Education Needs: Review discharge instructions, discuss Ask Me Three.
[2019-12-15 11:35] VITALS: BP 101/65; PULSE 73; RESP 18; TEMP 36.3; O2SAT 97
[2019-12-15] MEDS: Pantoprazole 40 MG VIAL IVP (12:59)
--- NOTE | 2019-12-15 13:50 | DSE_ITS ---
Date of service: 12/15/19 Time of Service: 13:50 DS: Diagnosis Discharge Diagnosis (1) Fever: Start date: 12/15/19 Start time: 13:51 Status: Resolved Asessment and Plan: Of unknown origin, could be due to gastroenteritis. UA without nitrate and leuk est. Blood cultures negative. CRP normal, and procalcitoinin normal. Could also be due to viral syndrome. Leukocytosis has normalized. Afebrile over 24 hours. She did receive IV flagyl and cipro for questionable infectious gastroenteritis. I would not continue to treat as she has not bacterial indications for treatment. White blood cell scan Mild ill defined tracer activity in the right abdomen, possibly within the colon. She did receive cipro and flagyl with relief MRI preformed to r/o infectious etiology it did reveal abnormalities in periventricular frontal white matter bilaterally, will refer to neurology for further workup given cycle of symptoms. This can be done as an outpatient. (2) Gastroenteritis: Start date: 12/15/19 Start time: 13:59 Status: Acute Asessment and Plan: Seen by CT, not concerning per [place] [facility] Patient would benefit from outpatient colonoscopy, and GI will refer to [facility] [place] discharge. (3) Intractable nausea and vomiting: Start date: 12/15/19 Start time: 14:00 Status: Acute Asessment and Plan: From canaboid use. Feeling better today, no nausea or vomiting, tolerating clears. She feels well enough for discharge. She will be discharged home on antiemetics. (4) Acute deep vein thrombosis (DVT) of left lower extremity: Start date: 12/15/19 Start time: 14:02 Status: Chronic Asessment and Plan: Follow up with hematology tomorrow to discuss treatment plans. Given history of MRSA skin infections, she may benefit from a DOAC. above case discussed with Dr. Mendoza who is in agreement. Discharge Plan Disposition Patient Disposition: HOME Condition: Improving Discharge Details Chief Complaint: Abd Prob Clinical Impression: Gastroenteritis, Intractable nausea and vomiting Reason For Visit: HYPEREMESIS Admit Date/Time: 12/11/19 12:58 Admit Provider: Selvin Mendoza Attending Provider: Selvin Mendoza Primary Care Provider: Mikayla Reagan ED Provider: Nguyen [facility] Hospital Course: 39 y.o female with PMH DVT on anticoagulation, ADHD, Asthma, Factor V leiden mutation admitted to [facility]/ for cyclic vomiting. CT of the abdomen done in the ED revealing small quantity of free pelvic fluid without focal cause. Ms. Rodriguez was [place] [facility] on benzos, antiemetics, and hitamines to break the cycle. Over course of treatment she developed a fever with increasing leukocytosis. She was initiated on flagyl and surgery consulted. Dr. Hagen evaluated patient and did not feel at this time she needed a colonoscopy, it would be more beneficial as an outpatient, but did recommend placing on cipro as well. Blood cultures negative x 3 sets. She continued to spike fevers despite having cipro and flagyl, imaging pushed to [facility] for further recommendations. Spoke with Dr. Weinberg he did not feel at this time it was her enteritis causing the fevers, he recommend u/s of the small injection site to r/o abscess. POC ultrasound done at bedside by Dr. Mendoza no indication for I&D. UTI ruled out, no signs or symptoms of pneumonia, no SOB, cough. Fevers continued with spike up to as high as 38.8 and wbc 14.07. Given history of MRSA to skin, thorough skin assessment done with no sign or symptoms of wound infection. MRI preformed to r/o infectious causes and other factors that could cause fever with cyclic vomiting. Imaging did reveal periventricular white matter, she does have history of migraines, however will refer to neurology for further testing and management. White blood cell scan ordered to r/o any further sites of infection Today her leukocytosis normalized, she has been afebrile. She feels great. Tolerating liquids without vomiting or wretching. She feels ready to be discharged home. She is being discharged on anti emetics, benadryl and lorazepam. Continue clears and slowly introduce a regular diet as tolerated. She has an appt with [facility] [place] with hematology to discuss further management of her DVT. She currently does twice a day enoxaparin injections. She denies CP, SOB, NVD Home Meds and New Rx's Prescriptions: New sucralfate 1 gram Tablet 1 g PO AC & HS Qty: 120 RF: 0 diphenhydramine HCl 25 mg Capsule 25 mg PO Q4H PRN PRNQty: 20 RF: 0 ondansetron HCl [Zofran] 8 mg tablet 8 mg PO Q12H PRN PRNQty: 20 RF: 0 metoclopramide HCl [Reglan] 5 mg tablet 5 mg PO QAC Qty: 20 RF: 0 lorazepam 2 mg/mL concentrate 1 mg PO Q6H PRNQty: 30 RF: 0 fluconazole [Diflucan] 200 mg tablet 200 mg PO DAILY Qty: 7 RF: 0 Continued hydrocodone-acetaminophen 7.5-325 mg tablet 1 tab PO BID MDD 2 tabs PRN (Reason: pain) Qty: 60 RF: 0 topiramate [Topamax] 200 mg tablet 400 mg PO HS Qty: 180 RF: 4 Citracal Plus Bone Density 1 EACH tablet 1 ea PO BID RF: 0 cyproheptadine 4 MG tablet 4 mg PO HS Qty: 90 RF: 3 ipratropium-albuterol 3 ML solution for nebulization 3 ml Inhalation Q4H PRN MDD 6 times PRNQty: 1 RF: 0 albuterol sulfate [ProAir HFA] 90 mcg/actuation HFA aerosol inhaler 2 puff Inhalation Q6H PRN MDD 6 puffs Qty: 3 RF: 4 albuterol sulfate 1.25 mg/3 mL solution for nebulization 1.25 mg Inhalation Q6H PRN (Reason: shortness of breath or wheezing) Qty: 75 RF: 3 Flovent HFA 220 mcg/actuation HFA aerosol inhaler 2 inh Inhalation BID Qty: 3 RF: 4 epinephrine [EpiPen 2-Nino] 0.3 mg/0.3 mL auto-injector 0.3 mg IM ONCE Qty: 1 RF: 1 acidophilus-pectin, citrus 25 million cell -100 mg tablet 2 tab PO TID Qty: 90 RF: 4 alcohol swabs [Alcohol Wipes] Pads, Medicated See Rx Instructions TP .COMPLEX Qty: 300 RF: 4 triamcinolone acetonide 0.1 % cream 1 applic Topical BID PRN (Reason: eczema) Qty: 60 RF: 1 omeprazole 40 mg capsule,delayed release(DR/EC) 40 mg PO DAILY PRN (Reason: GERD) Qty: 90 RF: 4 sumatriptan succinate 6 mg/0.5 mL pen injector 6 mg subcut As directed MDD 12 mg Qty: 8 RF: 5 methylphenidate HCl 20 mg tablet 20 mg PO TID MDD 60 mg Qty: 84 RF: 0 fexofenadine 180 mg tablet 180 mg PO DAILY Qty: 90 RF: 4 divalproex 500 mg tablet,delayed release (DR/EC) 500 mg PO TID Qty: 90 RF: 2 clonazepam 1 mg tablet 1 mg PO TID PRN (Reason: anxiety) Qty: 90 RF: 2 Narcan 4 MG spray,non-aerosol 4 mg NS DAILY PRN PRNQty: 2 RF: 0 levothyroxine 125 mcg Tablet 125 mcg PO DAILY@0600 Qty: 30 RF: 0 diphenhydramine HCl [Benadryl Allergy] 25 mg tablet 100 mg PO HS RF: 0 No Action apixaban 5 mg tablet 5 mg PO BID Qty: 60 RF: 11 (DME) Space Chamber Plus 1 EACH spacer 1 ea Miscellaneous Q4H PRN Qty: 1 RF: 0 Discharge Instructions Instructions: Fever in Adults (ED), Leukocytosis (GEN), Enteritis (DC), Cyclic Vomiting Syndrome (DC) Additional Instructions: Follow up with [place] [facility], [place] do have a clinic in [place] Follow up with Neurology regarding MRI results. Take nausea medication when starting to nauseated followed by benadryl and lorazepam to break vomiting cycle before it starts. Take hot showers or baths to help with pain Continue clear liquids, advance diet as tolerated, start with soft and advance diet from there. Follow up with PCP in 1-2 weeks and Hematology as scheduled for tomorrow.l Stand Alone Forms: Nursing Discharge Form Referrals: [place]Y,[facility] [place]] - (Please have PCP write a referrl for outpatient colonoscopy for enteritis and enlarged jujenum. ) Mikayla Reagan NP [Primary Care Provider] - 12/30/19 2:00 pm Nevaeh Nuno MD [ [facility] STAFF PHYSICIAN] - (Refer for MRI results. ) Activity:: Activity as Tolerated Equipment/Supplies:: No Equipment Needed Diet:: As Tolerated Discharge Orders Discharge Orders: Discharge Order (Routine); Ordered 12/15/19 Ordered By: Melissa Watson Discharge Data Discharge Date/Time-TO BE ENTERED AT DEPARTURE: 12/15/19 16:55 DS: Summary Status at Discharge Functional status at discharge: independent ambulation Overall status at discharge: patient is back to baseline Mental Status: mental status grossly normal Speech and Movement: speech and movement normal Mood: congruent mood Affect: normal affect Exam Const General: cooperative and no acute distress Nutritional Appearance: overweight Orientation: alert, awake and oriented x3 HENMT Head: normocephalic and atraumatic Eyes Cornea: corneas normal Pupils: PERRL EOM: EOM intact bilaterally Neck Neck: normal visual inspection, full ROM and no JVD Lymphatic: no lymphadenopathy noted and no lymphedema noted Resp Effort & Inspection: normal respiratory effort Auscultation: clear to auscultation bilaterally Cardio Jugular venous pressure: no JVD Rate: regular rate Rhythm: regular rhythm GI Inspection: normal to inspection Palpation: soft Auscultation: normal bowel sounds General: deferred Skin General skin exam: no rashes or lesions noted Neuro General: patient alert, patient awake and patient oriented x3 Cognition: normal cognition Extrem General: normal to inspection, full ROM and no clubbing, cyanosis or edema Psych Mental Status: mental status grossly normal Speech and Movement: speech and movement normal Mood: congruent mood Affect: normal affect DS: Data Vitals/I&O Vitals and I&O: Vital Signs Temperature 36.3 C L 12/15/19 11:35 Temperature Source Tympanic 12/15/19 11:35 Pulse 73 12/15/19 11:35 Pulse Rhythm Regular 12/15/19 00:55 Pulse 62 12/10/19 13:55 Respiratory Rate 18 12/15/19 11:35 Respiratory Effort 12/15/19 00:55 Respiratory Depth Normal 12/15/19 00:55 Respiratory Pattern Normal 12/15/19 00:55 Blood Pressure 101/65 12/15/19 11:35 Blood Pressure Mean 102 12/10/19 13:55 Pulse Oximetry 97 12/15/19 11:35 Oxygen Delivery Method Room Air 12/15/19 11:35 Oxygen Flow Rate 0 12/15/19 11:35 Pain Level 6 12/15/19 11:35 Comment 12/15/19 03:18 Intake & Output 12/14/19 12/15/19 12/15/19 23:59 11:59 23:59 Intake Total 486 / 1047 601 / 601 Output Total 100 / 100 450 / 525 75 / 525 Balance 386 / 947 151 / 76 -75 / 76 Weight 70.8 kg Intake: IV 461 / 1022 451 / 451 Oral 25 / 25 150 / 150 Output: Urine 450 / 525 75 / 525 Emesis 100 / 100 Other: Urine Color Yellow Dark Wandy Yellow Urine Appearance Clear Clear Urine Odor Normal None Comment Up to toilet to void, unable to assses volume. Emesis Description Retching Bile Voiding Methods Toilet Toilet Toilet Data Completed and Pending Completed studies during hospitalization [Text1]: Exam(s) a CT:CT abdomen & pelvis w EXAM: CT ABDOMEN PELVIS W CLINICAL HISTORY: Nausea, vomiting R/O obstruction TECHNIQUE: COMPARISON: CT CT renal colic wo from 05/22/[address] ABDOMEN PELVIS W from 08/20/2018 FINDINGS: CT examination of the and pelvis was performed with intravenous infusion of 100 cc of Omnipaque 350. Images obtained through the lung bases are unremarkable. Note is made of prior cholecystectomy and presumed appendectomy. Liver and spleen spleen unremarkable appearance with focal fat adjacent to falciform ligament of the liver. Adrenals and kidneys appear normal with no urinary tract calcification or obstruction. Abdominal aorta is of normal diameter no major visceral branch abnormality is seen. No evidence of abdominal or pelvic adenopathy. Incidental note is made of gas in soft tissues scattered in the lower left abdominal wall consistent with prior injections. 1.5 cm presumed injection abscess noted also left lower quadrant subcutaneous tissues. There is a small quantity of free pelvic fluid which is nonspecific. Prior hysterectomy noted. No gross pelvic mass identified. No evidence of diverticulitis or bowel obstruction. Colonic lumen is collapsed, mild colonic wall edema not excluded but this may just be due to underdistention. IMPRESSION: Nonspecific pelvic findings, small quantity of free pelvic fluid without focal cause. Colitis not excluded, please see above discussion. FINDINGS: Lungs: Bibasilar atelectasis Liver: Normal. No mass. Gallbladder and bile ducts: Cholecystectomy Pancreas: Normal. No ductal dilation. Spleen: Normal. No splenomegaly. Adrenals: Normal. No mass. Kidneys and ureters: Normal. No hydronephrosis. Stomach and bowel: Intermittent bowel wall thickening in the jejunum may represent enteritis including infectious and inflammatory etiologies. Low-attenuation bowel wall thickening is seen throughout the colon consistent with colitis. Differential diagnosis includes infectious and inflammatory etiologies.. Appendix: Surgical clips in the cecum may reflect prior appendectomy Intraperitoneal space: Minimal free fluid in the pelvis Vasculature: Unremarkable. No abdominal aortic aneurysm. Lymph nodes: Unremarkable. No enlarged lymph nodes. Bladder: Unremarkable as visualized. Reproductive: Surgical resection of the uterus Bones/joints: Unremarkable. No acute fracture. Soft tissues: Unremarkable. IMPRESSION: 1. Intermittent bowel wall thickening in the jejunum may represent enteritis including infectious and inflammatory etiologies. 2. Low-attenuation bowel wall thickening is seen throughout the colon consistent with colitis. Differential diagnosis includes infectious and inflammatory etiologies.. TECHNIQUE: Multiplanar multisequence MRI of the brain was performed. Additional post contrast T1 weighted axial and coronal images were obtained. COMPARISON: No exams were available for comparison FINDINGS: The ventricular system is normal in appearances. There are few minimal focal areas abnormal signal seen T2 weighted and FLAIR imaging in the periventricular frontal white matter bilaterally, findings are nonspecific and may represent early microvascular ischemic change. No other signal abnormality identified in the brain. The orbital and temporal bone structures appears intact as does the pituitary. Diffusion weighted imaging shows No evidence of infarction. Susceptibility weighted imaging shows no evidence of intracranial hemorrhage. There is normal flow void in the [employer] vasculature. Post contrast imaging shows no enhancing lesion or mass lesion IMPRESSION: Minimal signal abnormalities in periventricular frontal white matter bilaterally, sparing the corpus callosum, likely very early microvascular ischemic changes. Other etiologies including demyelinating process or inflammatory process not absolutely excluded, follow-up MRI suggested in 12 months.. Labs on day of discharge: Labs from last 24 hours 12/15/19 12/15/19 06:53 06:53 WBC 7.55 D RBC 4.54 Hgb 13.3 D Hct 40.1 MCV 88.3 D MCH 29.3 MCHC 33.2 RDW 14.4 Plt Count 209 D MPV 10.7 Sodium 138 Potassium 3.6 Chloride 103 Carbon Dioxide 26.5 Anion Gap 8.5 BUN 14 Creatinine 1.12 H Estimated GFR/1.73 m2 53.88 Glucose 93 Calcium 7.4 L 12/15/19 10:38 Urine - Clean Catch Urine Culture - Pending 12/14/19 11:50 Blood Blood Culture - Pending 12/14/19 11:45 Blood Blood Culture - Pending Preliminary micro results at discharge 12/15/19 10:38 Urine Culture - Pending Urine - Clean Catch 12/12/19 20:10 Blood Culture - Preliminary Blood NO GROWTH 48 HOURS 12/11/19 11:28 Blood Culture - Preliminary Blood NO GROWTH 72 HOURS 12/11/19 11:13 Blood Culture - Preliminary Blood NO GROWTH 72 HOURS 12/14/19 11:50 Blood Culture - Pending Blood 12/14/19 11:45 Blood Culture - Pending Blood [facility] Medical History ADHD (attention deficit hyperactivity disorder), 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) Asthma (Chronic 11/08/12) B12 deficiency (Chronic) Cannabis abuse with cannabis-induced disorder (Chronic) Cellulitis of left leg (Resolved) Chronic anticoagulation (Chronic) Chronic back pain greater than 3 months duration (Chronic 12/29/14) Cyst of fallopian tube (Resolved) Depression (Chronic) Factor V Leiden mutation (Chronic) GERD (gastroesophageal reflux disease) (Chronic) Hematuria (Resolved) History of DVT (deep vein thrombosis) (Chronic) Hypothyroidism (Chronic) Intractable vomiting with nausea (Acute) Left buttock abscess (Resolved) Left-sided chest wall pain (Acute) Migraine headache (Chronic) Nephrolithiasis (Chronic) Panic disorder (Chronic 03/21/16) Preseptal cellulitis of left eye (Inactive) Recurrent deep vein thrombosis (DVT) (Chronic) Right lower quadrant abdominal pain (Resolved) inflamed/ruptured fallopian tube on the right 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) Vaginal candidiasis (Inactive) Surgical History Abdominal hysterectomy (~2009) 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) Arthroplasty of knee (~1999) left Bilateral salpingectomy with oophorectomy (~2008) Cervical Conization/LEEP LEEP 2003 [facility] BX 2003 Cholecystectomy S/P appendectomy (Acute 12/24/17) Dr Veliz - Car appy and lap excision of R fallopian tube remnant Status post cholecystectomy (Inactive) Status post LEEP (loop electrosurgical excision procedure) of cervix (Inactive) THUMB RECONSTRUCTION left; in childhood Social History Smoking/Tobacco Use Status: Never Alcohol Intake: current Alcohol Intake frequency: 0-2 drinks per day Drug use: Daily Substance use type: marijuana Do you feel safe at home: Yes Do you feel safe in your relationship?: Yes Additional Social history: Patient is and with one child. She denies any smoking or significant alcohol use, but admits to regular marijuana use.
[2019-12-15] MEDS: Methylphenidate 10 MG TAB 20 MG PO (14:55)
--- NOTE | 2019-12-15 17:02 | DI.VRAD_ITS ---
PROCEDURE INFORMATION: Exam: NM Radiopharmaceutical Localization Of Tumor or Distribution; Whole Body, Single Day Imaging Exam date and time: 12/15/2019 4:14 PM Age: 39 years old Clinical indication: Symptoms: Fuo, leukocytosis, abdomen pain; Additional info: TECHNIQUE: Imaging protocol: Radiopharmaceutical localization of tumor or distribution of radiopharmaceutical agent. Whole body. Single day imaging. Views: Whole body Radiopharmaceutical: radiolabelled WBC. 24.3 mci tc99m ceretec labeled wbc's. COMPARISON: No relevant prior studies available. FINDINGS: No abnormal radiotracer uptake is seen. Normal tracer activity is seen in the liver, spleen and bone marrow as well as the bladder. Mild ill defined tracer activity in the right abdomen. Consider CT IMPRESSION: Mild ill defined tracer activity in the right abdomen, possibly within the colon. Consider CT Dictated and Authenticated by: Harmony Rao MD. Ordering:JOE Torres MD
== END 2019-12-15 16:55 | disposition home or self-care (01) | DRG 897 ==
LOC: ER 14:22 → MS 15:28
PROVIDERS: Nurse Practitioner; Nurse Practitioner Family; Admitting Provider Internal Medicine; Emergency Provider Registered Nurse Emergency; PCP Nurse Practitioner Family; Visit Provider Internal Medicine
DX: F12.188 Cannabis abuse with other cannabis-induced disorder (principal); D68.51 Activated protein C resistance; I82.492 Acute embolism and thrombosis of other specified deep vein of left lower extremity; R11.2 Nausea with vomiting, unspecified; N39.3 Stress incontinence (female) (male); Z86.718 Personal history of other venous thrombosis and embolism; E03.9 Hypothyroidism, unspecified; F90.9 Attention-deficit hyperactivity disorder, unspecified type; G43.909 Migraine, unspecified, not intractable, without status migrainosus; R50.9 Fever, unspecified; D53.8 Other specified nutritional anemias; J45.909 Unspecified asthma, uncomplicated; Z79.01 Long term (current) use of anticoagulants; G89.29 Other chronic pain; M54.9 Dorsalgia, unspecified; K21.9 Gastro-esophageal reflux disease without esophagitis; F41.0 Panic disorder [episodic paroxysmal anxiety]; F32.9 Major depressive disorder, single episode, unspecified; K52.9 Noninfective gastroenteritis and colitis, unspecified; R07.89 Other chest pain; E87.6 Hypokalemia; E83.42 Hypomagnesemia
CPT/HCPCS: 36410; 36415; 70553; 80048; 80053; 80307; 83690; 84145; 85027; 87040; 94640; 96361; 96365; 96375; 99220; 99221; 99233; 99239; 99252; 99285; 74177; 78806; 81003; 81015; 83605; 83735; 85025; 85610; 86140; 87086; 99284; J0131; J0744; J0780; J1100; J1200; J1630; J1650; J1885; J2060; J2270; J2405; J2765; J3475; J3480; J3490

== ENCOUNTER 2020-03-30 17:39 | Outpatient (REF) | payer MEDICARE, MEDICAID, SELFPAY ==
[2020-03-30 20:57] LABS: Abs Immature Grans 0.02 10^3/uL (0.0-0.06); Absolute Basophil Count 0.04 10^3/uL (0.0-0.2); Absolute Eosinophil Count 0.35 10^3/uL (0.0-0.7); Absolute Lymphocyte Count 1.51 10^3/uL (1.2-3.4); Absolute Monocyte Count 0.38 10^3/uL (0.1-0.8); Absolute Neutrophil Count 3.22 10^3/uL (1.2-6.7); Basophils % 0.7; Eosinophils % 6.3; HCT 43.2 % (36.0-46.0); HGB 14.2 g/dL (11.2-15.7); Immature Grans % 0.4; Lymphocytes % 27.4; MCH 28.5 pg (27.0-33.0); MCHC 32.9 % (32.0-36.0); MCV 86.6 fL (80-95); MPV 11.7 fL (8.0-11.0); Monocytes % 6.9; Neutrophils % 58.3; Nucleated RBC 0 %; Platelet Count 202 10^3/uL (130-400); RBC 4.99 10^6/uL (3.93-5.22); RDW 11.9 % (11.7-14.6); WBC 5.52 10^3/uL (4.4-10.8)
[2020-03-30 22:13] LABS: ALT 18 U/L (14-59); AST 12 U/L (15-37); Albumin 4.2 g/dL (3.4-5.0); Alkaline Phosphatase 46 U/L (46-116); Anion Gap 9.1 mmol/L (3-11); BUN 9 mg/dL (7-18); Bilirubin, Total 0.2 mg/dL (0.2-1.0); CO2 26.9 mmol/L (21.0-32.0); CREATININE 1.05 mg/dL (0.55-1.02); Calcium 8.7 mg/dL (8.5-10.1); Calculated LDL 201 mg/dL (<100); Chloride 102 mmol/L (98-107); Cholesterol 274 mg/dL (<200); Estimated GFR 57.76 (mL/min/1.73m2); Glucose 100 mg/dL (74-106); HDL Cholesterol 47 mg/dL (40-60); Potassium 4.1 mmol/L (3.5-5.1); Sodium 138 mmol/L (136-145); TSH (W/Ref FT4) 0.54 uIU/mL (0.36-3.74); Triglyceride 134 mg/dL (<150)
[2020-04-02 10:33] LABS: HSV Type 1 Ab, IgG Positive (Negative); HSV Type 2 Ab, IgG Positive (Negative)
[2020-04-02 10:48] LABS: HIV-1/2 Ag & Ab Screen Negative (Negative)
[2020-04-02 11:24] LABS: Syphilis Serology (RPR) Negative (Negative)
== END 2020-03-30 17:59 ==
LOC: NCHCN 17:39
PROVIDERS: PCP Family Medicine; Visit Provider Family Medicine
DX: Z11.3 Encounter for screening for infections with a predominantly sexual mode of transmission (principal); Z00.00 Encounter for general adult medical examination without abnormal findings
CPT/HCPCS: 80053; 80061; 87389; 83735; 84443; 85025; 86592; 86695; 86696

== ENCOUNTER → 2020-04-06 09:51 | Outpatient (BNVA) | payer MEDICARE, MEDICAID, SELFPAY | PROVIDERS: PCP Family Medicine; Referring Provider Family Medicine; Visit Provider Physical Therapy Assistant | DX: R69 Illness, unspecified (principal) ==

== ENCOUNTER 2020-04-06 10:11 | Outpatient (CLI) | payer MEDICARE, MEDICAID, SELFPAY ==
[2020-04-06] MEDS: Omnipaque 350 MG/ML 50 ML BTL IJ (11:38)
[2020-04-06] MEDS: Breeza Beverage 473 ML BTL PO ×2 (11:39)
--- NOTE | 2020-04-06 12:36 | DI.CT_ITS ---
EXAM: CT ABDOMEN PELVIS W CLINICAL HISTORY: perianal pain, ? deep absecess on palpation, K61.0 TECHNIQUE: Imaging Protocol: Axial computed tomography images with coronal and sagittal reformatted images were created and reviewed CONTRAST MATERIAL: Intravenous: Omnipaque 350 Contrast volume:100 mL Oral: Yes COMPARISON: CT CT ABDOMEN PELVIS W from 12/10/2019 FINDINGS: ABDOMEN: Lung Bases: Normal where visualized. Liver: Normal density. No measurable mass. There is decreased attenuation in the liver near the ligam entum teres most consistent with focal fatty infiltration. Portal, Superior Mesenteric, and Splenic Veins: Unremarkable. Gallbladder and Biliary Tract: Status post cholecystectomy. No biliary ductal dilatation. Pancreas: Normal density, no abnormal calcifications or inflammatory process. Spleen: Normal. Adrenals: No masses seen. Kidneys: Normal size, contour and axis. 2 mm nonobstructing stone in the lower pole of the left kidne y. No masses seen. Abdominal Aorta: Abdominal portion non-dilated. Mild atherosclerosis. Bowel: No obstruction or bowel wall thickening. No evidence of appendicitis. Peritoneal Cavity: No ascites, collection or mesenteric inflammatory response. Lymph Nodes: Within normal limits. Bones: Mild degenerative changes. Soft Tissues: Small fat containing umbilical hernia. There is a 0.6 cm area of decreased attenuation in the left perianal soft tissues. Tiny abscess cannot be excluded. PELVIS: Bladder: Symmetric distention, no gross wall thickening. Reproductive Organs: Status post hysterectomy. Lymph Nodes: Within normal limits. Bones: Mild degenerative changes. IMPRESSION: 0.6 cm area of decreased attenuation in the left perianal soft tissues which may represent a tiny abs cess. RADIATION DOSE DELIVERED: 890.63mGy.cm Total DLP DATA REPOSITORY: All CT scans at this facility are submitted to the National Radiology Data Registry (NRDR) Dose Index Registry (DIR) with the [employer] (ACR). RADIATION OPTIMIZATION: All CT scans at this facility use at least one of these dose optimization te chniques: automated exposure control; mA and/or kV adjustment per patient size (includes targeted exa ms where dose is matched to clinical indication); or iterative reconstruction.
[2020-04-06] MEDS: Normal Saline - Diluent 50 ML VIAL IV (12:39)
[2020-04-06] MEDS: Omnipaque 350 MG/ML 100 ML BTL IJ (12:39)
[2020-04-06] MEDS: Normal Saline Flush 10 ML SYR IVP (12:41)
== END 2020-04-06 10:31 ==
PROVIDERS: PCP Family Medicine; Visit Provider Physical Therapy Assistant
DX: K61.0 Anal abscess; Z86.14 Personal history of Methicillin resistant Staphylococcus aureus infection; K62.89 Other specified diseases of anus and rectum
CPT/HCPCS: 99213; 74177; J3490; Q9967

== ENCOUNTER → 2020-04-09 10:09 | Outpatient (BNVA) | payer MEDICARE, MEDICAID, SELFPAY | PROVIDERS: PCP Family Medicine; Referring Provider Family Medicine; Visit Provider Surgery | DX: R69 Illness, unspecified (principal) ==

== ENCOUNTER 2020-04-09 22:26 | Inpatient (IN) | payer MEDICARE, MEDICAID, SELFPAY ==
[2020-04-09 22:29] VITALS: BP 153/112; PULSE 51; RESP 20; TEMP 36.1; O2SAT 99
[2020-04-09] MEDS: Normal Saline 1,000 ML 1000 ML IV (22:52)
[2020-04-09] MEDS: LORazepam 2 MG/ML VIAL 1 MG IVP (22:52)
[2020-04-09] MEDS: Pantoprazole 40 MG VIAL IVP (22:53)
[2020-04-09] MEDS: Normal Saline Flush 10 ML SYR IVP (22:53)
--- NOTE | 2020-04-09 23:04 | ED.GENADUL_ITS ---
Discharge Plan Disposition Patient Disposition: [facility] INPATIENT Condition: Fair Discharge Details Clinical Impression: Cyclic vomiting syndrome Primary Care Provider: Patrica Lopez ED Provider: Lynda Pond Home Meds and New Rx's Prescriptions: No Action topiramate [Topamax] 200 mg tablet 400 mg PO HS Qty: 180 RF: 4 metoclopramide HCl [Reglan] 5 mg tablet 5 mg PO HS Qty: 30 RF: 3 sucralfate 1 gram tablet 1 g PO AC & HS Qty: 120 RF: 2 linezolid 600 mg tablet 600 mg PO Q12H 5 Days Qty: 10 RF: 0 Citracal Plus Bone Density 1 EACH tablet 1 ea PO BID RF: 0 cyproheptadine 4 MG tablet 4 mg PO HS Qty: 90 RF: 3 ipratropium-albuterol 3 ML solution for nebulization 3 ml Inhalation Q4H PRN MDD 6 times PRNQty: 1 RF: 0 albuterol sulfate 1.25 mg/3 mL solution for nebulization 1.25 mg Inhalation Q6H PRN (Reason: shortness of breath or wheezing) Qty: 75 RF: 3 acidophilus-pectin, citrus 25 million cell -100 mg tablet 2 tab PO TID Qty: 90 RF: 4 alcohol swabs [Alcohol Wipes] Pads, Medicated See Rx Instructions TP .COMPLEX Qty: 300 RF: 4 triamcinolone acetonide 0.1 % cream 1 applic Topical BID PRN (Reason: eczema) Qty: 60 RF: 1 methylphenidate HCl 20 mg tablet 20 mg PO TID MDD 60 mg Qty: 84 RF: 0 fexofenadine 180 mg tablet 180 mg PO DAILY Qty: 90 RF: 4 warfarin 5 mg tablet 5 mg PO PER PROTOCOL Qty: 90 RF: 4 epinephrine [EpiPen 2-Nino] 0.3 mg/0.3 mL auto-injector 0.3 mg IM ONCE Qty: 1 RF: 1 Flovent HFA 220 mcg/actuation HFA aerosol inhaler 2 inh Inhalation BID Qty: 3 RF: 4 levothyroxine 125 mcg tablet 125 mcg PO .AM Qty: 90 RF: 0 omeprazole 40 mg capsule,delayed release(DR/EC) 40 mg PO DAILY Qty: 90 RF: 4 sumatriptan succinate 6 mg/0.5 mL pen injector 6 mg subcut As directed MDD 12 mg Qty: 8 RF: 5 clotrimazole-betamethasone 1-0.05 % cream 1 applic Topical BID PRN (Reason: rash) Qty: 45 RF: 1 enoxaparin [Lovenox] 80 mg/0.8 mL syringe 72 mg subcut Q12H Qty: 8 RF: 0 albuterol sulfate [ProAir HFA] 90 mcg/actuation HFA aerosol inhaler 2 puff Inhalation Q6H PRN MDD 6 puffs Qty: 3 RF: 4 ondansetron HCl 8 mg tablet 8 mg PO BID PRN (Reason: nausea and vomiting) Qty: 20 RF: 0 sumatriptan succinate 6 mg/0.5 mL pen injector 6 mg subcut ONCE MDD 12mg PRN (Reason: migraine headache) Qty: 90 RF: 1 fluoxetine 10 mg capsule 10 mg PO DAILY RF: 0 clonazepam 1 mg tablet 1 mg PO TID PRN (Reason: anxiety) Qty: 90 RF: 0 hydrocodone-acetaminophen 5-325 mg tablet 1 tab PO BID MDD 2 tabs PRN (Reason: pain) Qty: 60 RF: 0 (DME) Space Chamber Plus 1 EACH spacer 1 ea Miscellaneous Q4H PRN Qty: 1 RF: 0 Narcan 4 MG spray,non-aerosol 4 mg NS DAILY PRN PRNQty: 2 RF: 0 diphenhydramine HCl [Benadryl Allergy] 25 mg tablet 100 mg PO HS RF: 0 diphenhydramine HCl 25 mg Capsule 25 mg PO Q4H PRN PRNQty: 20 RF: 0 lorazepam 2 mg/mL concentrate 1 mg PO Q6H PRNQty: 30 RF: 0 Medical Decision Making Patient referred to the ED as she is unable to tolerate p.o. which she has not for several days. She does have a history of cyclical vomiting and was seen in [place] by gastroenterology, she is waiting to schedule for upper and lower endoscopy. She does report that this episode today is similar to her previous episodes in the past of the cyclical vomiting. She is being treated for perianal abscess with linezolid under surgical care. The abscess according to the record is not drainable. She is to receive 5 days of IV abx and they have established a PICC line in her today. We are giving her 1 L of normal saline, Phenergan 25 mg Protonix 40 mg IV and added Ativan 1 mg IV. CBC CMP lipase, ua sent. Her abdominal exam is benign and the pain is most likely due to recurrent retching. will hold off on imaging at this point as she has recently been imaged and this presentation is typical for her. will replace potassium with 4 10meq runs, benadryl 25 mg IVP. report and care of patient handed off to Dr Joyner who will admit to observation for symptom management Medical Records Medical records reviewed: Yes I reviewed the patient's medical records. Lab Data Lab results reviewed: Yes I reviewed the patient's lab results. Lab results narrative: Laboratory Results - last 24 hr 04/09/20 04/09/20 04/09/20 22:23 23:05 23:05 WBC 7.74 RBC 4.47 Hgb 12.8 Hct 36.7 MCV 82.1 MCH 28.6 MCHC 34.9 RDW 12.1 Plt Count 240 MPV 10.8 Immature Gran % 0.1 Neutrophils % 73.5 Lymphocytes % 19.9 Monocytes % 5.4 Eosinophils % 0.8 Basophils % 0.3 Nucleated RBC % 0 Absolute Neutrophils 5.69 Absolute Lymphocytes 1.54 Absolute Monocytes 0.42 Absolute Eosinophils 0.06 Absolute Basophils 0.02 VBG Lactate 3.3 H* Sodium 139 Potassium 2.7 L* Chloride 103 Carbon Dioxide 19.7 L Anion Gap 16.3 H BUN 6 L Creatinine 1.10 H Estimated GFR/1.73 m2 54.74 Glucose 118 H Calcium 8.7 Magnesium 1.4 L Total Bilirubin 1.0 AST 11 L ALT 12 L Alkaline Phosphatase 41 L Total Protein 6.9 Albumin 4.1 Lipase 52 HPI General Date/Time Provider Initiated Documentation: 04/09/20 22:26 . Limitations to Documentation: no limitations . Information obtained by: patient . HPI Narrative: Patient presents with intractable nausea and vomiting not responding to her oral Zofran. She is currently being treated for a perianal abscess by surgery with oral linezolid. She has been unable to take orals so they have placed PICC line and plan is for outpatient infusion to complete a 5-day course. Per the record her abscess is not drainable she does have a history of MRSA. She has not had fevers. She does have epi gastric discomfort from retching. She has been unable to tolerate p.o. Related Data Home Medications Medication Instructions Recorded Confirmed Citracal Plus Bone Density 1 ea PO BID tab-cap 11/09/12 04/09/20 Space Chamber Plus #1 spacer 05/01/14 04/09/20 cyproheptadine 4 mg PO HS #90 tab-cap 06/04/16 04/09/20 Narcan 4 mg NS DAILY PRN PRN #2 spray 12/08/16 04/09/20 ipratropium-albuterol 3 ml INHALATION Q4H PRN PRN #1 box 01/23/17 04/09/20 MDD 6 times albuterol sulfate 1.25 mg/3 mL 1.25 mg INHALATION Q6H PRN #75 ml 01/12/19 04/09/20 solution for nebulization acidophilus 25 million 2 tab PO TID #90 tab 05/29/19 04/09/20 cell-pectin, citrus 100 mg tablet alcohol swabs See Rx Instructions TP .COMPLEX 07/11/19 04/09/20 #300 each triamcinolone acetonide 0.1 % 1 applic TOPICAL BID PRN #60 gm 09/05/19 04/09/20 topical cream methylphenidate HCl 20 mg tablet 20 mg PO TID #84 tab-cap MDD 60 mg 10/20/19 04/09/20 fexofenadine 180 mg tablet 180 mg PO DAILY #90 tab-cap 11/01/19 04/09/20 Topamax 200 mg tablet 400 mg PO HS #180 tab NS 11/11/19 04/09/20 diphenhydramine HCl [Benadryl 100 mg PO HS 12/13/19 04/09/20 Allergy] diphenhydramine HCl 25 mg PO Q4H PRN PRN #20 cap 12/15/19 04/09/20 lorazepam 1 mg PO Q6H PRN #30 ml 12/15/19 04/09/20 metoclopramide HCl 5 mg tablet 5 mg PO HS #30 tab 12/30/19 04/09/20 sucralfate 1 gram tablet 1 g PO AC & HS #120 tab 12/30/19 04/09/20 warfarin 5 mg tablet 5 mg PO PER PROTOCOL #90 tab 02/09/20 04/09/20 clotrimazole-betamethasone 1 1 applic TOPICAL BID PRN #45 gm 02/22/20 04/09/20 %-0.05 % topical cream epinephrine 0.3 mg/0.3 mL 0.3 mg IM ONCE #1 ea 02/22/20 04/09/20 injection, auto-injector fluticasone propionate 220 2 inh INHALATION BID #3 inhaler 02/22/20 04/09/20 mcg/actuation HFA aerosol inhaler levothyroxine 125 mcg tablet 125 mcg PO .AM #90 tab 02/22/20 04/09/20 omeprazole 40 mg capsule,delayed 40 mg PO DAILY #90 cap 02/22/20 04/09/20 release sumatriptan succinate 6 mg/0.5 mL 6 mg SUBCUT As directed #8 pen MDD 02/22/20 04/09/20 subcutaneous pen injector 12 mg enoxaparin 80 mg/0.8 mL 72 mg SUBCUT Q12H #8 ml 02/24/20 04/09/20 subcutaneous syringe albuterol sulfate 90 mcg/actuation 2 puff INHALATION Q6H PRN #3 03/07/20 04/09/20 aerosol inhaler inhaler MDD 6 puffs ondansetron HCl 8 mg tablet 8 mg PO BID PRN #20 tab 03/07/20 04/09/20 sumatriptan succinate 6 mg/0.5 mL 6 mg SUBCUT ONCE PRN #90 syrg MDD 03/07/20 04/09/20 subcutaneous pen injector 12mg fluoxetine 10 mg capsule 10 mg PO DAILY 03/19/20 04/09/20 clonazepam 1 mg tablet 1 mg PO TID PRN #90 tab 03/20/20 04/09/20 hydrocodone 5 mg-acetaminophen 325 1 tab PO BID PRN #60 tab MDD 2 tabs 03/20/20 04/09/20 mg tablet linezolid 600 mg tablet 600 mg PO Q12H 5 Days #10 tab 04/06/20 04/09/20 Previous Rx's Medication Instructions Recorded Space Chamber Plus #1 spacer 05/01/14 Narcan 4 mg NS DAILY PRN PRN #2 spray 12/08/16 albuterol sulfate 1.25 mg/3 mL 1.25 mg INHALATION Q6H PRN #75 ml 01/12/19 solution for nebulization acidophilus 25 million 2 tab PO TID #90 tab 05/29/19 cell-pectin, citrus 100 mg tablet alcohol swabs See Rx Instructions TP .COMPLEX 07/11/19 #300 each triamcinolone acetonide 0.1 % 1 applic TOPICAL BID PRN #60 gm 09/05/19 topical cream methylphenidate HCl 20 mg tablet 20 mg PO TID #84 tab-cap MDD 60 mg 10/20/19 fexofenadine 180 mg tablet 180 mg PO DAILY #90 tab-cap 11/01/19 Topamax 200 mg tablet 400 mg PO HS #180 tab NS 11/11/19 diphenhydramine HCl 25 mg PO Q4H PRN PRN #20 cap 12/15/19 lorazepam 1 mg PO Q6H PRN #30 ml 12/15/19 metoclopramide HCl 5 mg tablet 5 mg PO HS #30 tab 12/30/19 sucralfate 1 gram tablet 1 g PO AC & HS #120 tab 12/30/19 warfarin 5 mg tablet 5 mg PO PER PROTOCOL #90 tab 02/09/20 clotrimazole-betamethasone 1 1 applic TOPICAL BID PRN #45 gm 02/22/20 %-0.05 % topical cream epinephrine 0.3 mg/0.3 mL 0.3 mg IM ONCE #1 ea 02/22/20 injection, auto-injector fluticasone propionate 220 2 inh INHALATION BID #3 inhaler 02/22/20 mcg/actuation HFA aerosol inhaler levothyroxine 125 mcg tablet 125 mcg PO .AM #90 tab 02/22/20 omeprazole 40 mg capsule,delayed 40 mg PO DAILY #90 cap 02/22/20 release sumatriptan succinate 6 mg/0.5 mL 6 mg SUBCUT As directed #8 pen MDD 02/22/20 subcutaneous pen injector 12 mg enoxaparin 80 mg/0.8 mL 72 mg SUBCUT Q12H #8 ml 02/24/20 subcutaneous syringe albuterol sulfate 90 mcg/actuation 2 puff INHALATION Q6H PRN #3 03/07/20 aerosol inhaler inhaler MDD 6 puffs ondansetron HCl 8 mg tablet 8 mg PO BID PRN #20 tab 03/07/20 sumatriptan succinate 6 mg/0.5 mL 6 mg SUBCUT ONCE PRN #90 syrg MDD 11/18/20 subcutaneous pen injector 12mg clonazepam 1 mg tablet 1 mg PO TID PRN #90 tab 03/20/20 hydrocodone 5 mg-acetaminophen 325 1 tab PO BID PRN #60 tab MDD 2 tabs 03/20/20 mg tablet linezolid 600 mg tablet 600 mg PO Q12H 5 Days #10 tab 04/06/20 Allergies Allergy/AdvReac Type Severity Reaction Status Date / Time aripiprazole [From Abilify] Allergy Severe Rash, hives Verified 04/09/20 09:55 doxycycline Allergy Severe Anaphylaxsi Verified 04/09/20 09:55 s levetiracetam [From Keppra] Allergy Severe RASH/HIVES Verified 04/09/20 09:55 sulfamethoxazole Allergy Severe Hives Verified 04/09/20 09:55 venom-honey bee Allergy Severe unknown Verified 04/09/20 09:55 Penicillins Allergy Intermediate Skin Rash Verified 04/09/20 09:55 chlorhexidine Allergy Unknown unknown Verified 04/09/20 09:55 Sulfa (Sulfonamide Allergy Verified 04/09/20 09:55 Antibiotics) mold AdvReac Severe Wheezing Verified 04/09/20 09:55 oxycodone [Oxycodone] AdvReac Severe vomits Verified 04/09/20 09:55 paroxetine AdvReac Severe Irritability Verified 04/09/20 09:55 and anger dicloxacillin [Dicloxacillin] AdvReac Mild Nausea Verified 04/09/20 09:55 gabapentin AdvReac Mild hives Verified 04/09/20 09:55 prednisone AdvReac Agitation Verified 04/09/20 09:55 trazodone AdvReac shortness Verified 04/09/20 09:55 of breath verapamil [Verapamil] AdvReac Worsening Verified 04/09/20 09:55 migraine nuts Allergy Severe Anaphylaxsi Uncoded 04/09/20 09:55 s General Stated Complaint: Nausea/Vomit/Diar RYNE: 3 Review of Systems All systems reviewed & are unremarkable except as noted in HPI and below Constitutional Constitutional: Denies fever(s) Gastrointestinal Gastrointestinal: Reports abdominal pain, Reports nausea and Reports vomiting PFSH Medical History (Updated 04/09/20 @ 23:33 by Lynda Pond NP) ADHD (attention deficit hyperactivity disorder), 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) Asthma (11/08/12) B12 deficiency Candidiasis Cannabis abuse with cannabis-induced disorder Cellulitis of left leg Chronic anticoagulation Chronic anticoagulation On coumadin Chronic back pain greater than 3 months duration (12/29/14) Cyst of fallopian tube Depression Factor V Leiden mutation GERD (gastroesophageal reflux disease) Hematuria History of DVT (deep vein thrombosis) Hypothyroidism Intractable vomiting with nausea Left buttock abscess Left lower quadrant pain (01/27/12) Migraine headache Nephrolithiasis Orbital cellulitis on left Panic disorder (03/21/16) Preseptal cellulitis of left eye Recurrent deep vein thrombosis (DVT) Right lower quadrant abdominal pain inflamed/ruptured fallopian tube on the right Thrombosis of arteries of lower extremity Vaginal candidiasis Surgical History Abdominal hysterectomy (~2009) 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) Arthroplasty of knee (~1999) left Bilateral salpingectomy with oophorectomy (~2008) Cervical Conization/LEEP LEEP 2003 [facility] 2003 Cholecystectomy S/P appendectomy (12/24/17) Dr Veliz - Car appy and lap excision of R fallopian tube remnant Status post cholecystectomy Status post LEEP (loop electrosurgical excision procedure) of cervix THUMB RECONSTRUCTION left; in childhood Social History Smoking/Tobacco Use Status: Never Smoking risk assessment performed?: Yes Alcohol Intake: current Alcohol Intake frequency: 0-2 drinks per day Drug use: Daily Substance use type: marijuana Do you feel safe at home: Yes Do you feel safe in your relationship?: Yes Additional Social history: Patient is and with one child. She denies any smoking or significant alcohol use, but admits to regular marijuana use. Exam Const General: acute distress moderate (Actively dry heaving) Nutritional Appearance: average body habitus Orientation: alert, awake and oriented x3 HENMT Head: normal to inspection, normocephalic and atraumatic Resp Effort & Inspection: normal respiratory effort (Respirations even and unlabored) and able to speak in complete sentences Cardio Rate: regular rate and bradycardic Rhythm: regular rhythm GI Inspection: normal to inspection Palpation: soft and tender in the epigastrum Skin General skin exam: no rashes or lesions noted (PICC line intact and flushes well) Neuro General: patient alert, patient awake, patient oriented x3 and no focal motor deficits Extrem General: normal to inspection and full ROM Course Vital Signs Vital signs: Vital Signs Temperature 36.1 C L 04/09/20 22:29 Pulse 51 L 04/09/20 22:29 Respiratory Rate 20 04/09/20 22:29 Blood Pressure 153/112 H 04/09/20 22:29 Pulse Oximetry 99 04/09/20 22:29 Temperature 36.1 C L 04/09/20 22:29 Pulse 51 L 04/09/20 22:29 Respiratory Rate 20 04/09/20 22:29 Blood Pressure 153/112 H 04/09/20 22:29 Pulse Oximetry 99 04/09/20 22:29 Oxygen Delivery Method Room Air 04/09/20 22:29 Oxygen Flow Rate 0 04/09/20 22:29 Pain Level 8 04/09/20 22:29 Comment 04/09/20 22:29
[2020-04-09 23:18] LABS: Lactate 3.3 mmol/L (0.6-1.4)
[2020-04-09 23:27] LABS: ALT 12 U/L (14-59); AST 11 U/L (15-37); Albumin 4.1 g/dL (3.4-5.0); Alkaline Phosphatase 41 U/L (46-116); Anion Gap 16.3 mmol/L (3-11); BUN 6 mg/dL (7-18); CO2 19.7 mmol/L (21.0-32.0); Calcium 8.7 mg/dL (8.5-10.1); Chloride 103 mmol/L (98-107); Estimated GFR 54.74 (mL/min/1.73m2); Glucose 118 mg/dL (74-106); Lipase 52 U/L (73-393); Magnesium 1.4 mg/dL (1.8-2.4); Sodium 139 mmol/L (136-145); Total Protein 6.9 g/dL (6.4-8.2)
[2020-04-09 23:28] LABS: Abs Immature Grans 0.01 10^3/uL (0.0-0.06); Absolute Basophil Count 0.02 10^3/uL (0.0-0.2); Absolute Eosinophil Count 0.06 10^3/uL (0.0-0.7); Absolute Lymphocyte Count 1.54 10^3/uL (1.2-3.4); Absolute Monocyte Count 0.42 10^3/uL (0.1-0.8); Absolute Neutrophil Count 5.69 10^3/uL (1.2-6.7); Basophils % 0.3; Eosinophils % 0.8; HCT 36.7 % (36.0-46.0); HGB 12.8 g/dL (11.2-15.7); Immature Grans % 0.1; Lymphocytes % 19.9; MCH 28.6 pg (27.0-33.0); MCHC 34.9 % (32.0-36.0); MCV 82.1 fL (80-95); MPV 10.8 fL (8.0-11.0); Monocytes % 5.4; Neutrophils % 73.5; Nucleated RBC 0 %; Platelet Count 240 10^3/uL (130-400); RBC 4.47 10^6/uL (3.93-5.22); RDW 12.1 % (11.7-14.6); RDW-SD 36.5 fL; WBC 7.74 10^3/uL (4.4-10.8)
[2020-04-09 23:30] LABS: Potassium 2.7 mmol/L (3.5-5.1)
[2020-04-09] MEDS: diphenhydrAMINE 50 MG/ML VIAL 25 MG IVP (23:40)
[2020-04-09] MEDS: POTASSIUM CHLORIDE 10 MEQ/100 ML BAG 100 MEQ IVPB (23:45)
[2020-04-10] VITALS (8 sets, daily range): BP systolic 99–170; BP diastolic 62–102; PULSE 60–71; RESP 16–24; TEMP 36.5–38.3; O2SAT 98–100
--- NOTE | 2020-04-10 00:03 | W.PM.HP.N ---
Date of service: 04/10/20 Time of Service: 00:07 Assessment and Plan Assessment and plan (1) Cyclic vomiting syndrome: Status: Acute Assessment and plan: Vomiting. I think the main differential is cyclic vomiting (cannabinoid?) vs Linezolid toxicity. I would agree with decision to defer further imaging at this point given recent CT and h/o such episodes. For now will give IVF, electrolyte replacement and prn antiemetics (will add Zofran to the program). I think it also reasonable to hold next dose of Linezolid to see if we determine whether this is playing a role. I would note that this was the choice in consultation with ID and in setting of numerous allergies. History of Present Illness History of Present Illness Chief Complaint: vomiting Narrative: 40 female with h/o cyclic vomiting, has been described as cannabis related (denies, but has repeated positive UDS for THC). In addition she is currently on course of Linezolid for perianal abcess, which according to surgeon's notes from 04/06 is responding; however, patient states that she believes the drug may also be contributing to the nausea. Some epigastric pain with episodes of vomiting. In ER findings of note for white count of 7.7, K 2.7, Mg 1.4, lipase 52. Patient had CT 3 days [employer] (unremarkable save for tiny perianal abcess) so it was decided to forego repeat imaging. Is receiving electrolyte replacement and IVF. Has received Ativan, PPI, Phenergan and benadryl, but continues with nausea. Review of Systems All systems reviewed & are unremarkable except as noted in HPI and below PFSH Medical History ADHD (attention deficit hyperactivity disorder), 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) Asthma (11/08/12) B12 deficiency Candidiasis Cannabis abuse with cannabis-induced disorder Cellulitis of left leg Chronic anticoagulation Chronic anticoagulation On coumadin Chronic back pain greater than 3 months duration (12/29/14) Cyst of fallopian tube Depression Factor V Leiden mutation GERD (gastroesophageal reflux disease) Hematuria History of DVT (deep vein thrombosis) Hypothyroidism Intractable vomiting with nausea Left buttock abscess Left lower quadrant pain (01/27/12) Migraine headache Nephrolithiasis Orbital cellulitis on left Panic disorder (03/21/16) Preseptal cellulitis of left eye Recurrent deep vein thrombosis (DVT) Right lower quadrant abdominal pain inflamed/ruptured fallopian tube on the right Thrombosis of arteries of lower extremity Vaginal candidiasis Surgical History Abdominal hysterectomy (~2009) 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) Arthroplasty of knee (~1999) left Bilateral salpingectomy with oophorectomy (~2008) Cervical Conization/LEEP LEEP 2002 [facility] 2002 Cholecystectomy S/P appendectomy (12/24/17) Dr Veliz - Lap appy and lap excision of R fallopian tube remnant Status post cholecystectomy Status post LEEP (loop electrosurgical excision procedure) of cervix THUMB RECONSTRUCTION left; in childhood Social History Smoking/Tobacco Use Status: Never Smoking risk assessment performed?: Yes Alcohol Intake: current Alcohol Intake frequency: 0-2 drinks per day Drug use: Daily Substance use type: marijuana Do you feel safe at home: Yes Do you feel safe in your relationship?: Yes Additional Social history: Patient is and with one child. She denies any smoking or significant alcohol use, but admits to regular marijuana use. Meds Home Medications and Allergies Home Medications Medication Instructions Recorded Confirmed Type Citracal Plus Bone Density 1 ea PO BID tab-cap 11/09/12 04/09/20 History Space Chamber Plus #1 spacer 05/01/14 04/09/20 Rx cyproheptadine 4 mg PO HS #90 tab-cap 06/04/16 04/09/20 History Narcan 4 mg NS DAILY PRN PRN #2 spray 12/08/16 04/09/20 Rx ipratropium-albuterol 3 ml INHALATION Q4H PRN PRN #1 box 01/23/17 04/09/20 History MDD 6 times albuterol sulfate 1.25 mg/3 mL 1.25 mg INHALATION Q6H PRN #75 ml 01/12/19 04/09/20 Rx solution for nebulization acidophilus 25 million 2 tab PO TID #90 tab 05/29/19 04/09/20 Rx cell-pectin, citrus 100 mg tablet alcohol swabs See Rx Instructions TP .COMPLEX 07/11/19 04/09/20 Rx #300 each triamcinolone acetonide 0.1 % 1 applic TOPICAL BID PRN #60 gm 09/05/19 04/09/20 Rx topical cream methylphenidate HCl 20 mg tablet 20 mg PO TID #84 tab-cap MDD 60 mg 10/20/19 04/09/20 Rx fexofenadine 180 mg tablet 180 mg PO DAILY #90 tab-cap 11/01/19 04/09/20 Rx Topamax 200 mg tablet 400 mg PO HS #180 tab NS 11/11/19 04/09/20 Rx diphenhydramine HCl [Benadryl 100 mg PO HS 12/13/19 04/09/20 History Allergy] diphenhydramine HCl 25 mg PO Q4H PRN PRN #20 cap 12/15/19 04/09/20 Rx lorazepam 1 mg PO Q6H PRN #30 ml 12/15/19 04/09/20 Rx metoclopramide HCl 5 mg tablet 5 mg PO HS #30 tab 12/30/19 04/09/20 Rx sucralfate 1 gram tablet 1 g PO AC & HS #120 tab 12/30/19 04/09/20 Rx warfarin 5 mg tablet 5 mg PO PER PROTOCOL #90 tab 02/09/20 04/09/20 Rx clotrimazole-betamethasone 1 1 applic TOPICAL BID PRN #45 gm 02/22/20 04/09/20 Rx %-0.05 % topical cream epinephrine 0.3 mg/0.3 mL 0.3 mg IM ONCE #1 ea 02/22/20 04/09/20 Rx injection, auto-injector fluticasone propionate 220 2 inh INHALATION BID #3 inhaler 02/22/20 04/09/20 Rx mcg/actuation HFA aerosol inhaler levothyroxine 125 mcg tablet 125 mcg PO .AM #90 tab 02/22/20 04/09/20 Rx omeprazole 40 mg capsule,delayed 40 mg PO DAILY #90 cap 02/22/20 04/09/20 Rx release enoxaparin 80 mg/0.8 mL 72 mg SUBCUT Q12H #8 ml 02/24/20 04/09/20 Rx subcutaneous syringe albuterol sulfate 90 mcg/actuation 2 puff INHALATION Q6H PRN #3 03/07/20 04/09/20 Rx aerosol inhaler inhaler MDD 6 puffs ondansetron HCl 8 mg tablet 8 mg PO BID PRN #20 tab 03/07/20 04/09/20 Rx sumatriptan succinate 6 mg/0.5 mL 6 mg SUBCUT ONCE PRN #90 syrg MDD 03/07/20 04/09/20 Rx subcutaneous pen injector 12mg fluoxetine 10 mg capsule 10 mg PO DAILY 03/19/20 04/09/20 History clonazepam 1 mg tablet 1 mg PO TID PRN #90 tab 03/20/20 04/09/20 Rx hydrocodone 5 mg-acetaminophen 325 1 tab PO BID PRN #60 tab MDD 2 tabs 03/20/20 04/09/20 Rx mg tablet linezolid 600 mg tablet 600 mg PO Q12H 5 Days #10 tab 04/06/20 04/09/20 Rx Allergies Allergy/AdvReac Type Severity Reaction Status Date / Time aripiprazole [From Abilify] Allergy Severe Rash, hives Verified 04/09/20 09:55 doxycycline Allergy Severe Anaphylaxsi Verified 04/09/20 09:55 s levetiracetam [From Kera] Allergy Severe RASH/HIVES Verified 04/09/20 09:55 sulfamethoxazole Allergy Severe Hives Verified 04/09/20 09:55 venom-honey bee Allergy Severe unknown Verified 04/09/20 09:55 Penicillins Allergy Intermediate Skin Rash Verified 04/09/20 09:55 chlorhexidine Allergy Unknown unknown Verified 04/09/20 09:55 Sulfa (Sulfonamide Allergy Verified 04/09/20 09:55 Antibiotics) mold AdvReac Severe Wheezing Verified 04/09/20 09:55 oxycodone [Oxycodone] AdvReac Severe vomits Verified 04/09/20 09:55 paroxetine AdvReac Severe Irritability Verified 04/09/20 09:55 and anger dicloxacillin [Dicloxacillin] AdvReac Mild Nausea Verified 04/09/20 09:55 gabapentin AdvReac Mild hives Verified 04/09/20 09:55 prednisone AdvReac Agitation Verified 04/09/20 09:55 trazodone AdvReac shortness Verified 04/09/20 09:55 of breath verapamil [Verapamil] AdvReac Worsening Verified 04/09/20 09:55 migraine nuts Allergy Severe Anaphylaxsi Uncoded 04/09/20 09:55 s Exam Narrative Exam Narrative: 170/90, 63, 36.5, 16, 100% RA. HEENT atraumatic; neck supple; lungs clear; heart RRR; abdomen soft mild epigastric tenderness w/o rebound; rectal exam deferred Results Labs Result diagrams: 04/09/20 22:23 04/09/20 23:05 Labs: Laboratory Results - last 24 hr 04/09/20 04/09/20 04/09/20 22:23 23:05 23:05 WBC 7.74 RBC 4.47 Hgb 12.8 Hct 36.7 MCV 82.1 MCH 28.6 MCHC 34.9 RDW 12.1 Plt Count 240 MPV 10.8 Immature Gran % 0.1 Neutrophils % 73.5 Lymphocytes % 19.9 Monocytes % 5.4 Eosinophils % 0.8 Basophils % 0.3 Nucleated RBC % 0 Absolute Neutrophils 5.69 Absolute Lymphocytes 1.54 Absolute Monocytes 0.42 Absolute Eosinophils 0.06 Absolute Basophils 0.02 VBG Lactate 3.3 H* Sodium 139 Potassium 2.7 L* Chloride 103 Carbon Dioxide 19.7 L Anion Gap 16.3 H BUN 6 L Creatinine 1.10 H Estimated GFR/1.73 m2 54.74 Glucose 118 H Calcium 8.7 Magnesium 1.4 L Total Bilirubin 1.0 AST 11 L ALT 12 L Alkaline Phosphatase 41 L Total Protein 6.9 Albumin 4.1 Lipase 52 Last Vital Signs Temp 36.1 C L 04/09/20 22:29 Pulse 51 L 04/09/20 22:29 Resp 20 04/09/20 22:29 BP 153/112 H 04/09/20 22:29 Pulse Ox 99 04/09/20 22:29 COVID-19 Screening Have you, or household traveled for leisure in last 14 days?: No Had IN PERSON contact w/suspected or confirmed C-19 person: No
[2020-04-10] MEDS: MAGNESIUM SULFATE 2 GM/50 ML BAG IVPB (00:50)
--- NOTE | 2020-04-10 01:03 | NUR.NOTE ---
Pt intermittently dry heaving/retching. 1 emesis bag with approx 100mL light green emesis throughout stay in ED. NS infusing. Report to Nazanin on m/s. 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
[2020-04-10] MEDS: POTASSIUM CHLORIDE/0.9% NACL 1,000 ML 150 MEQ IV ×2 (01:45→22:32)
[2020-04-10] MEDS: POTASSIUM CHLORIDE 10 MEQ/100 ML BAG 100 MEQ IVPB ×6 (01:46→22:33)
[2020-04-10] MEDS: LORazepam 2 MG/ML VIAL 1 MG IVP ×4 (02:23→17:27)
[2020-04-10] MEDS: Normal Saline Flush 10 ML SYR IVP ×3 (02:23→08:51)
[2020-04-10] MEDS: Ondansetron 4 MG/2 ML VIAL IVP ×4 (03:59→20:00)
[2020-04-10 07:31] LABS: HCT 39.2 % (36.0-46.0); HGB 13.9 g/dL (11.2-15.7); MCH 28.7 pg (27.0-33.0); MCHC 35.5 % (32.0-36.0); MCV 80.8 fL (80-95); MPV 11.3 fL (8.0-11.0); Platelet Count 261 10^3/uL (130-400); RBC 4.85 10^6/uL (3.93-5.22); RDW 12.1 % (11.7-14.6); RDW-SD 35.7 fL; WBC 12.04 10^3/uL (4.4-10.8)
[2020-04-10 07:41] LABS: INR 1.3 (0.9-1.1); Prothrombin Time 12.7 sec (9.3-11.0)
[2020-04-10 07:56] LABS: Anion Gap 14.6 mmol/L (3-11); BUN 5 mg/dL (7-18); CO2 21.4 mmol/L (21.0-32.0); CREATININE 0.84 mg/dL (0.55-1.02); Calcium 8.4 mg/dL (8.5-10.1); Chloride 99 mmol/L (98-107); Glucose 120 mg/dL (74-106); Magnesium 1.9 mg/dL (1.8-2.4); Potassium 3.2 mmol/L (3.5-5.1); Sodium 135 mmol/L (136-145)
--- NOTE | 2020-04-10 09:39 | W.PM.PROGNOT ---
Date of Service Date of service: 04/10/20 Time of Service: 09:40 Assessment and Plan Assessment and plan (1) Perianal abscess: Status: Acute Assessment and plan: followed by general surgery, consult placed unable to take oral linezolid, was scheduled to start IV infusions today will be placed on vancomycin day 15. (2) Chronic anticoagulation: Status: Chronic Assessment and plan: lovenox bridge to coumadin as she is subtherapeutic d/t unable to take po (3) Cyclic vomiting syndrome: Status: Acute Assessment and plan: continue antiemetics (4) History of DVT (deep vein thrombosis): Status: Chronic Assessment and plan: lovenox bridge to coumadin (5) Factor V Leiden mutation: Status: Chronic (6) ADHD (attention deficit hyperactivity disorder), inattentive type: Status: Chronic Assessment and plan: will need to hold stimulant for 2 weeks following linezolid, resume methylphenidate on Apr 24, 2020 after pharmacy check, OK to resume fluoxetine 04/11 resume cyroheptadine tonight resume reglan tonight (7) Hypokalemia: Status: Acute Assessment and plan: from GI losses, replete and follow. mag 1.9 after receiving 2 gm IV yesterday discussed with DR Conklin Subjective Subjective Patient reports: nausea and vomiting Interval history since last seen: reports no improvement in symptoms. no fevers. still unable to take PO Exam Const General: acute distress moderate (Actively dry heaving) Nutritional Appearance: average body habitus Orientation: alert, awake and oriented x3 HENMT Head: normal to inspection, normocephalic and atraumatic Resp Effort & Inspection: normal respiratory effort (Respirations even and unlabored) and able to speak in complete sentences Cardio Rate: regular rate and bradycardic Rhythm: regular rhythm GI Inspection: normal to inspection Palpation: soft and tender in the epigastrum Skin General skin exam: no rashes or lesions noted (PICC line intact and flushes well) Neuro General: patient alert, patient awake, patient oriented x3 and no focal motor deficits Extrem General: normal to inspection and full ROM Objective Last Vital Signs Temp 36.7 C 04/10/20 07:43 Pulse 64 04/10/20 09:23 Resp 17 04/10/20 07:43 BP 164/63 H 04/10/20 07:43 Pulse Ox 98 12/22/20 07:43 Laboratory Results - last 24 hr 04/09/20 04/09/20 04/09/20 22:23 23:05 23:05 WBC 7.74 RBC 4.47 Hgb 12.8 Hct 36.7 MCV 82.1 MCH 28.6 MCHC 34.9 RDW 12.1 Plt Count 240 MPV 10.8 Immature Gran % 0.1 Neutrophils % 73.5 Lymphocytes % 19.9 Monocytes % 5.4 Eosinophils % 0.8 Basophils % 0.3 Nucleated RBC % 0 Absolute Neutrophils 5.69 Absolute Lymphocytes 1.54 Absolute Monocytes 0.42 Absolute Eosinophils 0.06 Absolute Basophils 0.02 PT INR VBG Lactate 3.3 H* Sodium 139 Potassium 2.7 L* Chloride 103 Carbon Dioxide 19.7 L Anion Gap 16.3 H BUN 6 L Creatinine 1.10 H Estimated GFR/1.73 m2 54.74 Glucose 118 H Calcium 8.7 Magnesium 1.4 L Total Bilirubin 1.0 AST 11 L ALT 12 L Alkaline Phosphatase 41 L Total Protein 6.9 Albumin 4.1 Lipase 52 04/10/20 04/10/20 04/10/20 06:45 06:45 06:45 WBC 12.04 H D RBC 4.85 Hgb 13.9 Hct 39.2 MCV 80.8 MCH 28.7 MCHC 35.5 RDW 12.1 Plt Count 261 MPV 11.3 H Immature Gran % Neutrophils % Lymphocytes % Monocytes % Eosinophils % Basophils % Nucleated RBC % Absolute Neutrophils Absolute Lymphocytes Absolute Monocytes Absolute Eosinophils Absolute Basophils PT 12.7 H INR 1.3 H VBG Lactate Sodium 135 L Potassium 3.2 L Chloride 99 Carbon Dioxide 21.4 Anion Gap 14.6 H BUN 5 L Creatinine 0.84 Estimated GFR/1.73 m2 >= 60.00 Glucose 120 H Calcium 8.4 L Magnesium 1.9 Total Bilirubin AST ALT Alkaline Phosphatase Total Protein Albumin Lipase
[2020-04-10] MEDS: Enoxaparin 80 MG/0.8 ML SYR 70 MG SC ×2 (10:00→22:33)
[2020-04-10] MEDS: Sucralfate 1 GM TAB PO (12:36)
--- NOTE | 2020-04-10 12:44 | SCONE_ITS ---
Date of service: 04/10/20 Time of Service: 10:15 Assessment and Plan Assessment and plan (1) Perirectal abscess: Status: Acute Assessment and plan: 40 year old with a past medical history of perirectal abscess. 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 She is also allergic to most all antibiotics. Patient was seen last Thursday for pain in the perirectal area CT scan was done and showed a possible 0.6 cm abscess. There is no induration no and no erythema at the time of exam on Thursday. Patient was started on p.o. linezolid. She was seen again in the office on Thursday. She had no perirectal pain. She was complaining of nausea and vomiting so linezolid was switched over to IV and she was sent to the infusion center. Patient then went to the emergency department last night with intractable nausea and vomiting. She also has a history of marijuana smoking. On exam today there is no erythema, no fluctuance, and no pain. Because of her history I do recommend that she get 5 days of IV antibiotics. At this point there is no surgical intervention needed. History of Present Illness History of Present Illness Chief Complaint: Miley-rectal abscess Narrative: Mrs. Rodriguez is a 40-year-old female with a history of a perirectal abscess in the past who called the office last Thursday for perirectal pain. She was seen by our PA in the office. She could not feel any abscesses and did not see any induration or redness. The patient did have some pain on examination. CT scan was performed and showed possibly a 0.6 cm abscess. Patient was started on p.o. linezolid. She did not berry picker the linezolid until Thursday. She was seen in the office by Dr. Sahu on Thursday. Patient complained of upset stomach and felt the linezolid was partly to cause for it. She was set up with IV linezolid infusions. Patient then developed intractable vomiting and went to the emergency department. She was admitted by the hospitalist group. The patient is still nauseated this morning and is vomiting. The vomitus is bile. She has no perirectal pain at this point. CT scan was not repeated in the emergency department. White count is slightly elevated. Consults Consult date: 04/10/20 Requesting physician: Loli Conklin Review of Systems Constitutional Constitutional: Denies fever(s) Eyes Eyes: Denies change in vision ENT Ears, Nose, Mouth, and Throat: Denies change in voice and Denies hoarseness Cardiovascular Cardiovascular: Denies chest pain, Denies chest pain at rest, Denies irregular heart rhythm, Denies palpitations and Denies dyspnea Respiratory Respiratory: Denies cough and Denies dyspnea Gastrointestinal Gastrointestinal: Reports as per HPI and Denies abdominal pain Endocrine Endocrine: Denies palpitations COUNTS INCLUDE 234 BEDS AT THE [facility] Medical History ADHD (attention deficit hyperactivity disorder), 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) Asthma (11/08/12) B12 deficiency Candidiasis Cannabis abuse with cannabis-induced disorder Cellulitis of left leg Chronic anticoagulation Chronic anticoagulation On coumadin Chronic back pain greater than 3 months duration (12/29/14) Cyst of fallopian tube Depression Factor V Leiden mutation GERD (gastroesophageal reflux disease) Hematuria History of DVT (deep vein thrombosis) Hypothyroidism Intractable vomiting with nausea Left buttock abscess Left lower quadrant pain (01/27/12) Migraine headache Nephrolithiasis Orbital cellulitis on left Panic disorder (03/21/16) Preseptal cellulitis of left eye Recurrent deep vein thrombosis (DVT) Right lower quadrant abdominal pain inflamed/ruptured fallopian tube on the right Thrombosis of arteries of lower extremity Vaginal candidiasis Surgical History Abdominal hysterectomy (~2009) 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) Arthroplasty of knee (~1999) left Bilateral salpingectomy with oophorectomy (~2008) Cervical Conization/LEEP LEEP 2003 [facility] BX 2003 Cholecystectomy S/P appendectomy (12/24/17) Dr Veliz - Car appy and lap excision of R fallopian tube remnant Status post cholecystectomy Status post LEEP (loop electrosurgical excision procedure) of cervix THUMB RECONSTRUCTION left; in childhood Social History Smoking/Tobacco Use Status: Never Smoking risk assessment performed?: Yes Alcohol Intake: current Alcohol Intake frequency: 0-2 drinks per day Drug use: Daily Substance use type: marijuana Do you feel safe at home: Yes Do you feel safe in your relationship?: Yes Additional Social history: Patient is and with one child. She denies any smoking or significant alcohol use, but admits to regular marijuana use. Exam Const General: cooperative Orientation: alert and oriented x3 HENMT Head: normocephalic and atraumatic Resp Effort & Inspection: normal respiratory effort Auscultation: clear to auscultation bilaterally GI Inspection: normal to inspection Palpation: soft, no hepatosplenomegaly and nontender Rectal Exam - female: visual inspection normal and No tenderness Other: No miley-rectal erythema or induration. No pain on palpation. No fluctuance Results Last Vital Signs Temp 98.1 F 04/10/20 07:43 Pulse 64 04/10/20 09:23 Resp 17 04/10/20 07:43 BP 164/63 H 04/10/20 07:43 Pulse Ox 98 04/10/20 07:43 Labs Result diagrams: 04/10/20 06:45 04/10/20 06:45 Labs: Laboratory Results - last 24 hr 04/09/20 04/09/20 04/09/20 22:23 23:05 23:05 WBC 7.74 RBC 4.47 Hgb 12.8 Hct 36.7 MCV 82.1 MCH 28.6 MCHC 34.9 RDW 12.1 Plt Count 240 MPV 10.8 Immature Gran % 0.1 Neutrophils % 73.5 Lymphocytes % 19.9 Monocytes % 5.4 Eosinophils % 0.8 Basophils % 0.3 Nucleated RBC % 0 Absolute Neutrophils 5.69 Absolute Lymphocytes 1.54 Absolute Monocytes 0.42 Absolute Eosinophils 0.06 Absolute Basophils 0.02 PT INR VBG Lactate 3.3 H* Sodium 139 Potassium 2.7 L* Chloride 103 Carbon Dioxide 19.7 L Anion Gap 16.3 H BUN 6 L Creatinine 1.10 H Estimated GFR/1.73 m2 54.74 Glucose 118 H Calcium 8.7 Magnesium 1.4 L Total Bilirubin 1.0 AST 11 L ALT 12 L Alkaline Phosphatase 41 L Total Protein 6.9 Albumin 4.1 Lipase 52 04/10/20 04/10/20 04/10/20 06:45 06:45 06:45 WBC 12.04 H D RBC 4.85 Hgb 13.9 Hct 39.2 MCV 80.8 MCH 28.7 MCHC 35.5 RDW 12.1 Plt Count 261 MPV 11.3 H Immature Gran % Neutrophils % Lymphocytes % Monocytes % Eosinophils % Basophils % Nucleated RBC % Absolute Neutrophils Absolute Lymphocytes Absolute Monocytes Absolute Eosinophils Absolute Basophils PT 12.7 H INR 1.3 H VBG Lactate Sodium 135 L Potassium 3.2 L Chloride 99 Carbon Dioxide 21.4 Anion Gap 14.6 H BUN 5 L Creatinine 0.84 Estimated GFR/1.73 m2 >= 60.00 Glucose 120 H Calcium 8.4 L Magnesium 1.9 Total Bilirubin AST ALT Alkaline Phosphatase Total Protein Albumin Lipase
[2020-04-10] MEDS: Mometasone 220 MCG 14 DOSE INHALER 1 PUFF IH (13:34)
[2020-04-10 14:56] LABS: Bilirubin Negative (Negative); Blood Small (Negative); Clarity Clear (Clear); Glucose 100 mg/dL (Negative); Ketones 80 mg/dL (Negative); Leukocyte Esterase Negative (Negative); Nitrite Negative (Negative); Specific Gravity >= 1.030 (1.005-1.025); Urobilinogen 0.2 EU/dL (Up TO 0.2)
[2020-04-10 15:06] LABS: Bacteria Few HPF (Negative); C & S Indicated? No/Sq. Contamination; Crystals Negative HPF (Negative); Epithelial Cells Many HPF (Negative); Mucus Trace (Negative); WBC 0-2 HPF (0-5)
--- NOTE | 2020-04-10 16:28 | PDOC.CMIN ---
- If Service Date Differs Date of service: 04/10/20 Time of Service: 16:28 Care Management Initial Assess REASON FOR HOSPITALIZATION:: Vomiting PAST MEDICAL HISTORY/PAST SURGICAL HISTORY:: Medical History. ADHD (attention deficit hyperactivity disorder), 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). Asthma (11/08/12). B12 deficiency. Candidiasis. Cannabis abuse with cannabis-induced disorder. Cellulitis of left leg. Chronic anticoagulation. Chronic anticoagulation. On coumadin. Chronic back pain greater than 3 months duration (12/29/14). Cyst of fallopian tube. Depression. Factor V Leiden mutation. GERD (gastroesophageal reflux disease). Hematuria. History of DVT (deep vein thrombosis). Hypothyroidism. Intractable vomiting with nausea. Left buttock abscess. Left lower quadrant pain (01/27/12). Migraine headache. Nephrolithiasis. Orbital cellulitis on left. Panic disorder (03/21/16). Preseptal cellulitis of left eye. Recurrent deep vein thrombosis (DVT). Right lower quadrant abdominal pain. inflamed/ruptured fallopian tube on the right. Thrombosis of arteries of lower extremity. Vaginal candidiasis. Surgical History. Abdominal hysterectomy (~2009). 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 Arthroplasty of knee (~1999). left. Bilateral salpingectomy with oophorectomy (~2008). Cervical Conization/LEEP. LEEP 2002. [facility] BX 2002. Cholecystectomy. S/P appendectomy (12/24/17). Dr Veliz - Car [place] and car excision of R fallopian tube remnant. Status post cholecystectomy. Status post LEEP (loop electrosurgical excision procedure) of cervix. THUMB RECONSTRUCTION. left; in childhood PREVIOUS FUNCTIONAL STATUS/SOCIAL/FAMILY SUPPORTS:: Suzie resides in [facility] with her son Braulio. She is disabled and identifies her support system as her son and sometimes her Mom.Suzie is independent with self care and activities of daily living. Suzie has chronic pain though is independent in the community at baseline. CURRENT FUNCTIONAL STATUS:: Suzie was lying in bed when CM met with her. She stated that she is not feeling well today. She was not engaged in conversation. Per provider, she will remain at [facility] for 5 days of IV abx. CM will continue to follow. ADVANCE DIRECTIVES:: On file at [facility] agent is Braulio Rodriguez Has patient been provided with info about the portal/API?: Yes Did the patient sign up for the portal?: Yes (previously signed up) CODE STATUS:: Full Code INSURANCE COVERAGE / FINANCIAL ISSUES:: [facility]/ [facility] CURRENT HOME/COMMUNITY SERVICES/EQUIPMENT:: No current services or equipment. PRIMARY CARE PHYSICIAN:: Patrica Lopez POTENTIAL DISCHARGE NEEDS:: Evaluations for further needs, follow up appointments PATIENT/FAMILY EDUCATION NEEDS:: Review discharge instructions regarding activity levels and medications, discussion of self care needs including ask me three. ANTICIPATED BARRIERS TO DISCHARGE:: None identified at this time. TRANSPORTATION:: Via private car with son at time of discharge. PLAN:: Anticipate Suzie will return home when medically cleared. Her son will drive her home via private vehicle when ready. She will follow up with her PCP and discharge plan of care. CM will continue to follow.
[2020-04-10] MEDS: Prochlorperazine 10 MG/2 ML VIAL IVP (17:28)
[2020-04-10] MEDS: diphenhydrAMINE 50 MG/ML VIAL 25 MG IVP (20:00)
[2020-04-10] MEDS: ACETAMINOPHEN 1,000 MG/100 ML BTL 400 MG IVPB (22:31)
[2020-04-11] VITALS (9 sets, daily range): BP systolic 117–173; BP diastolic 65–100; PULSE 47–61; RESP 14–24; TEMP 37.1–38.5; O2SAT 97–99
[2020-04-11] MEDS: Pantoprazole 40 MG VIAL IVP (00:21)
[2020-04-11] MEDS: Normal Saline Flush 10 ML SYR IVP ×12 (00:22→20:38)
[2020-04-11] MEDS: Ondansetron 4 MG/2 ML VIAL IVP ×5 (00:22→20:35)
[2020-04-11] MEDS: LORazepam 2 MG/ML VIAL 1 MG IVP ×4 (00:22→20:36)
[2020-04-11] MEDS: Prochlorperazine 10 MG/2 ML VIAL IVP ×3 (03:13→17:51)
[2020-04-11] MEDS: diphenhydrAMINE 50 MG/ML VIAL 25 MG IVP ×3 (03:13→20:35)
[2020-04-11] MEDS: POTASSIUM CHLORIDE/0.9% NACL 1,000 ML 150 MEQ IV ×2 (05:51→16:14)
[2020-04-11 06:43] LABS: Abs Immature Grans 0.02 10^3/uL (0.0-0.06); Absolute Basophil Count 0.02 10^3/uL (0.0-0.2); Absolute Lymphocyte Count 1.44 10^3/uL (1.2-3.4); Absolute Monocyte Count 0.67 10^3/uL (0.1-0.8); Absolute Neutrophil Count 7.19 10^3/uL (1.2-6.7); Basophils % 0.2; HCT 38.6 % (36.0-46.0); HGB 13.4 g/dL (11.2-15.7); Immature Grans % 0.2; Lymphocytes % 15.4; MCH 28.8 pg (27.0-33.0); MCHC 34.7 % (32.0-36.0); MCV 82.8 fL (80-95); Monocytes % 7.2; Nucleated RBC 0 %; Platelet Count 254 10^3/uL (130-400); RBC 4.66 10^6/uL (3.93-5.22); RDW 12.5 % (11.7-14.6); RDW-SD 37.1 fL; WBC 9.34 10^3/uL (4.4-10.8)
[2020-04-11 06:51] LABS: BUN 6 mg/dL (7-18); CREATININE 0.88 mg/dL (0.55-1.02); Calcium 7.8 mg/dL (8.5-10.1); Chloride 103 mmol/L (98-107); Glucose 104 mg/dL (74-106); Potassium 4.1 mmol/L (3.5-5.1); Sodium 136 mmol/L (136-145)
[2020-04-11] MEDS: Sucralfate 1 GM TAB PO ×4 (07:46→22:43)
[2020-04-11] MEDS: Mometasone 220 MCG 14 DOSE INHALER 1 PUFF IH ×2 (08:12→20:35)
[2020-04-11] MEDS: Enoxaparin 80 MG/0.8 ML SYR 70 MG SC ×2 (09:08→22:43)
[2020-04-11] MEDS: Acetaminophen 500 MG TAB 1000 MG PO (11:30)
--- NOTE | 2020-04-11 12:39 | W.NUTRFU ---
Date of service: 04/11/20 Time of Service: 12:40 Nutritional Follow up NOTE: 40 year old female admitted with perirectal abscess that requires 5 days of antibiotics. Diet advanced, follows nut free diet. Not at nutritional risk at this time. Will continue to follow. Time Spent in Nutritional Counseling and Treatment: 0
--- NOTE | 2020-04-11 13:39 | CMPROGNOTE_ITS ---
- If Service Date Differs Date of service: 04/11/20 Time of Service: 13:39 Care Management Progress Note S/O: Suzie was lying in bed when CM met with her today. She stated that she is still feeling very unwell, and continues to have extreme nausea and vomiting/dry heaving. CM discussed her plan to remain at [facility] for IV abx for a total of five days for her perirectal abscess. She met with Dr. Hagen yesterday who stated that surgical intervention is not indicated at this time. Suzie stated that she is not happy that she has to be apart from her family for [place]. She asked about visitation, which CM explained that at this time we are not allowing any visitation, per the Governor's orders. Suzie stated that she was able to take a bath earlier today, which helps her to feel better, and would like to have another bath today, if possible. She has already relayed this information to her RN, but CM will discuss it with her RN as well. CM will continue to follow. A: Suzie is a 40 year old female admitted to [facility] on 04/10/20 with vomiting. P: Suzie will remain at [facility] for a total of five days of IV abx for her perirectal abscess. She will be driven home by family via private vehicle. She will follow up with her PCP and discharge plan of care. CM will continue to follow and support discharge planning considerations.
--- NOTE | 2020-04-11 13:48 | W.PM.PROGNOT ---
Date of Service Date of service: 04/11/20 Time of Service: 13:48 Assessment and Plan Assessment and plan (1) Perianal abscess: Status: Acute Assessment and plan: max temp 38.5 overnight, blood cultures still pending, white count normalized. no other source of infection identified. followed by general surgery, consult placed and no drainable abscess. Continue vancomycin day 2/5. covid screening ordered. (2) Chronic anticoagulation: Status: Chronic Assessment and plan: lovenox bridge to coumadin as she is subtherapeutic d/t unable to take po (3) Cyclic vomiting syndrome: Status: Acute Assessment and plan: continue antiemetics improved, advance diet as tolerated (4) History of DVT (deep vein thrombosis): Status: Chronic Assessment and plan: lovenox bridge to coumadin (5) Factor V Leiden mutation: Status: Chronic (6) ADHD (attention deficit hyperactivity disorder), inattentive type: Status: Chronic Assessment and plan: will need to hold stimulant for 2 weeks following linezolid, resume methylphenidate on Apr 24, 2020 after pharmacy check, OK to resume fluoxetine 04/11 resume cyroheptadine tonight resume reglan tonight (7) Hypokalemia: Status: Acute Assessment and plan: from GI losses, replete and follow. discussed with DR Conklin Subjective Subjective Patient reports: no new complaints, feels better and tolerating liquids well; denies nausea and vomiting Interval history since last seen: max temp overnight 38.5. feels better, no respiratory c/o. no increased pain at abscess site. Exam Const Nutritional Appearance: average body habitus Orientation: alert, awake and oriented x3 [facility] Head: normal to inspection, normocephalic and atraumatic Resp Effort & Inspection: normal respiratory effort (Respirations even and unlabored) and able to speak in complete sentences Cardio Rate: regular rate and bradycardic Rhythm: regular rhythm GI Inspection: normal to inspection Palpation: soft and tender in the epigastrum Skin General skin exam: no rashes or lesions noted (PICC line intact and flushes well) Neuro General: patient alert, patient awake, patient oriented x3 and no focal motor deficits Extrem General: normal to inspection and full ROM Objective Last Vital Signs Temp 37.8 C H 04/11/20 11:13 Pulse 47 L 04/11/20 11:13 Resp 16 04/11/20 11:13 BP 167/93 H 04/11/20 11:13 Pulse Ox 99 04/11/20 11:13 Laboratory Results - last 24 hr 04/10/20 04/11/20 04/11/20 14:40 06:35 06:35 WBC 9.34 RBC 4.66 Hgb 13.4 Hct 38.6 MCV 82.8 MCH 28.8 MCHC 34.7 RDW 12.5 Plt Count 254 MPV 11.0 Immature Gran % 0.2 Neutrophils % 77.0 Lymphocytes % 15.4 Monocytes % 7.2 Eosinophils % 0.0 Basophils % 0.2 Nucleated RBC % 0 Absolute Neutrophils 7.19 H Absolute Lymphocytes 1.44 Absolute Monocytes 0.67 Absolute Eosinophils 0.00 Absolute Basophils 0.02 Sodium 136 Potassium 4.1 D Chloride 103 Carbon Dioxide 20.0 L Anion Gap 13.0 H BUN 6 L Creatinine 0.88 Estimated GFR/1.73 m2 >= 60.00 Glucose 104 Calcium 7.8 L Magnesium 2.0 Urine Color Yellow Urine Clarity Clear Urine pH 7.0 Ur Specific Central >= 1.030 H Urine Protein Trace H Urine Ketones 80 H Urine Blood Small H Urine Nitrite Negative Urine Bilirubin Negative Urine Urobilinogen 0.2 Ur Leukocyte Esterase Negative Urine RBC 3-5 H Urine WBC 0-2 Ur Epithelial Cells Many Urine Crystals Negative Urine Bacteria Few Urine Mucus Trace Ur Culture Indicated? No/sq. contamination Urine Glucose 100
[2020-04-11 14:08] LABS: Source Nasopharynx
[2020-04-11 14:55] LABS: COVID-19 PCR Negative (Negative); Influenza A PCR Negative (Negative); Influenza B PCR Negative (Negative); RSV PCR Negative (Negative)
[2020-04-11 15:20] LABS: Bilirubin Negative (Negative); Blood Trace-intact (Negative); Clarity Clear (Clear); Glucose Negative (Negative); Ketones 80 mg/dL (Negative); Leukocyte Esterase Negative (Negative); Nitrite Negative (Negative); Specific Gravity 1.025 (1.005-1.025); Urobilinogen 0.2 EU/dL (Up TO 0.2)
[2020-04-11 15:27] LABS: Bacteria Few HPF (Negative); C & S Indicated? No/Sq. Contamination; Casts Negative LPF (Negative); Crystals Negative HPF (Negative); Epithelial Cells Moderate HPF (Negative); Mucus Negative (Negative); RBC 0-2 HPF (0-2)
--- NOTE | 2020-04-11 16:24 | PHA.REVIEW ---
Pharmacy Admission Review - Admission Clinical Review (Last Reviewed 04/10/20 @ 00:19 by Ilan Joyner MD) Perirectal abscess (Acute) Hypokalemia (Acute) Perianal abscess (Acute) Cyclic vomiting syndrome (Acute) aripiprazole [From Abilify] Allergy (Severe, Verified 04/09/20 09:55) Rash, hives doxycycline Allergy (Severe, Verified 04/09/20 09:55) Anaphylaxsis levetiracetam [From Keppra] Allergy (Severe, Verified 04/09/20 09:55) RASH/HIVES sulfamethoxazole Allergy (Severe, Verified 04/09/20 09:55) Hives venom-honey bee Allergy (Severe, Verified 04/09/20 09:55) unknown Penicillins Allergy (Intermediate, Verified 04/09/20 09:55) Skin Rash chlorhexidine Allergy (Unknown, Verified 04/09/20 09:55) unknown Sulfa (Sulfonamide Antibiotics) Allergy (Verified 04/09/20 09:55) mold Adverse Reaction (Severe, Verified 04/09/20 09:55) Wheezing oxycodone [Oxycodone] Adverse Reaction (Severe, Verified 04/09/20 09:55) vomits paroxetine Adverse Reaction (Severe, Verified 04/09/20 09:55) Irritability and anger dicloxacillin [Dicloxacillin] Adverse Reaction (Mild, Verified 04/09/20 09:55) Nausea gabapentin Adverse Reaction (Mild, Verified 04/09/20 09:55) hives prednisone Adverse Reaction (Verified 04/09/20 09:55) Agitation trazodone Adverse Reaction (Verified 04/09/20 09:55) shortness of breath verapamil [Verapamil] Adverse Reaction (Verified 04/09/20 09:55) Worsening migraine nuts Allergy (Severe, Uncoded 04/09/20 09:55) Anaphylaxsis Height 5 ft 1 in Weight 70.307 kg - Renal Dosing Renal Dosing: BUN 6 mg/dL (7-18) L 04/11/20 06:35 Creatinine 0.88 mg/dL (0.55-1.02) 04/11/20 06:35 Medications needing adjustments: Reviewed - Anticoagulation Anticoagulation: Hgb 13.4 g/dL (11.2-15.7) 04/11/20 06:35 Hct 38.6 % (36.0-46.0) 04/11/20 06:35 Plt Count 254 10^3/uL (130-400) 04/11/20 06:35 INR 1.3 (0.9-1.1) H 04/10/20 06:45 Creatinine 0.88 mg/dL (0.55-1.02) 04/11/20 06:35 DVT Prohphylaxis: Reviewed Therapeutic Anticoagulation: Reviewed Medications: Enoxaparin (bridge to warfarin) - Opiate Usage Evaluate Pain Scale/Pains Meds: N/A - Relevant Labs Sodium 136 mmol/L (136-145) 04/11/20 06:35 Potassium 4.1 mmol/L (3.5-5.1) D 04/11/20 06:35 Chloride 103 mmol/L (98-107) 04/11/20 06:35 Magnesium 2.0 mg/dL (1.8-2.4) 04/11/20 06:35 Electrolytes, C-Reactive P, ESR: Reviewed - DM Control DM Control: Glucose 104 mg/dL (74-106) 04/11/20 06:35 Insulin Dosing: Reviewed - Heart Failure/AK EF%, KACIE's, B-Blockers, Diuretics: Reviewed - BP Control BP Control: Blood Pressure 117/65 Blood Pressure 167/93 Blood Pressure 147/94 If elevated: Reviewed - Qtc Review If Elevated: N/A - IV to PO Switch IV Medications: Reviewed - Home Meds Home Med List reviewed: Reviewed
[2020-04-11 17:51] LABS: Vancomycin, Trough 13.2 ug/mL (10.0-20.0)
[2020-04-11] MEDS: Warfarin 5 MG TAB PO (20:35)
[2020-04-11] MEDS: ACETAMINOPHEN 1,000 MG/100 ML BTL 400 MG IVPB (20:36)
[2020-04-11] MEDS: Topiramate 100 MG TAB 400 MG PO (22:44)
[2020-04-11] MEDS: Metoclopramide 10 MG TAB 5 MG PO (22:44)
[2020-04-11] MEDS: Cyproheptadine 4 MG TAB PO (22:44)
[2020-04-12] MEDS: Pantoprazole 40 MG VIAL IVP (00:34)
[2020-04-12] MEDS: POTASSIUM CHLORIDE/0.9% NACL 1,000 ML 150 MEQ IV (01:15)
[2020-04-12 01:28] VITALS: TEMP 37
[2020-04-12] MEDS: Ondansetron 4 MG/2 ML VIAL IVP (01:44)
[2020-04-12] MEDS: Prochlorperazine 10 MG/2 ML VIAL IVP (01:44)
[2020-04-12 02:32] VITALS: BP 150/91; PULSE 57; RESP 18; TEMP 37.7; O2SAT 100
--- NOTE | 2020-04-12 09:47 | DSE_ITS ---
Date of service: 04/12/20 Time of Service: 09:48 DS: Diagnosis Discharge Diagnosis (1) Perianal abscess: Status: Acute (2) Chronic anticoagulation: Status: Chronic (3) Cyclic vomiting syndrome: Status: Acute (4) History of DVT (deep vein thrombosis): Status: Chronic (5) Factor V Leiden mutation: Status: Chronic (6) ADHD (attention deficit hyperactivity disorder), inattentive type: Status: Chronic (7) Hypokalemia: Status: Acute Discharge Plan Disposition Patient Disposition: AGAINST MEDICAL ADVICE Condition: Fair Discharge Details Reason For Visit: VOMITING Admit Date/Time: 04/10/20 00:27 Admit Provider: Ilan Joyner Attending Provider: Ilan Joyner Primary Care Provider: Patrica Lopez [facility] Hospital Course: This is a 40 year old female with history of perianal abscess who was being followed by the surgeons outpatient and was treated with linezolid d/t her MRSA history. She also has hyperemesis syndrome and was unable to tolerate PO so plan was for outpatient IV linezolid in infusion clinic. She ended up presenting to the ED for intractable vomiting. She was admitted to hospitalist services with surgical consult. They do not appreciate a drainable abscess and recommended 5 days of IV vancomycin. Her nausea and vomiting resolved and her diet was advanced. She was hoping to be able to leave for [place] and return to complete her antibiotics but this would not be permitted due to covid restrictions. patient left ama during the night. Dr Conklin aware. Home Meds and New Rx's Prescriptions: No Action topiramate [Topamax] 200 mg tablet 400 mg PO HS Qty: 180 RF: 4 metoclopramide HCl [Reglan] 5 mg tablet 5 mg PO HS Qty: 30 RF: 3 sucralfate 1 gram tablet 1 g PO AC & HS Qty: 120 RF: 2 linezolid 600 mg tablet 600 mg PO Q12H 5 Days Qty: 10 RF: 0 Citracal Plus Bone Density 1 EACH tablet 1 ea PO BID RF: 0 cyproheptadine 4 MG tablet 4 mg PO HS Qty: 90 RF: 3 ipratropium-albuterol 3 ML solution for nebulization 3 ml Inhalation Q4H PRN MDD 6 times PRNQty: 1 RF: 0 albuterol sulfate 1.25 mg/3 mL solution for nebulization 1.25 mg Inhalation Q6H PRN (Reason: shortness of breath or wheezing) Qty: 75 RF: 3 acidophilus-pectin, citrus 25 million cell -100 mg tablet 2 tab PO TID Qty: 90 RF: 4 alcohol swabs [Alcohol Wipes] Pads, Medicated See Rx Instructions TP .COMPLEX Qty: 300 RF: 4 triamcinolone acetonide 0.1 % cream 1 applic Topical BID PRN (Reason: eczema) Qty: 60 RF: 1 methylphenidate HCl 20 mg tablet 20 mg PO TID MDD 60 mg Qty: 84 RF: 0 fexofenadine 180 mg tablet 180 mg PO DAILY Qty: 90 RF: 4 warfarin 5 mg tablet 5 mg PO PER PROTOCOL Qty: 90 RF: 4 epinephrine [EpiPen 2-Nino] 0.3 mg/0.3 mL auto-injector 0.3 mg IM ONCE Qty: 1 RF: 1 Flovent HFA 220 mcg/actuation HFA aerosol inhaler 2 inh Inhalation BID Qty: 3 RF: 4 levothyroxine 125 mcg tablet 125 mcg PO .AM Qty: 90 RF: 0 omeprazole 40 mg capsule,delayed release(DR/EC) 40 mg PO DAILY Qty: 90 RF: 4 clotrimazole-betamethasone 1-0.05 % cream 1 applic Topical BID PRN (Reason: rash) Qty: 45 RF: 1 enoxaparin [Lovenox] 80 mg/0.8 mL syringe 72 mg subcut Q12H Qty: 8 RF: 0 albuterol sulfate [ProAir HFA] 90 mcg/actuation HFA aerosol inhaler 2 puff Inhalation Q6H PRN MDD 6 puffs Qty: 3 RF: 4 ondansetron HCl 8 mg tablet 8 mg PO BID PRN (Reason: nausea and vomiting) Qty: 20 RF: 0 sumatriptan succinate 6 mg/0.5 mL pen injector 6 mg subcut ONCE MDD 12mg PRN (Reason: migraine headache) Qty: 90 RF: 1 fluoxetine 10 mg capsule 10 mg PO DAILY RF: 0 clonazepam 1 mg tablet 1 mg PO TID PRN (Reason: anxiety) Qty: 90 RF: 0 hydrocodone-acetaminophen 5-325 mg tablet 1 tab PO BID MDD 2 tabs PRN (Reason: pain) Qty: 60 RF: 0 (DME) Space Chamber Plus 1 EACH spacer 1 ea Miscellaneous Q4H PRN Qty: 1 RF: 0 Narcan 4 MG spray,non-aerosol 4 mg NS DAILY PRN PRNQty: 2 RF: 0 diphenhydramine HCl [Benadryl Allergy] 25 mg tablet 100 mg PO HS RF: 0 diphenhydramine HCl 25 mg Capsule 25 mg PO Q4H PRN PRNQty: 20 RF: 0 lorazepam 2 mg/mL concentrate 1 mg PO Q6H PRNQty: 30 RF: 0 Discharge Data Discharge Date/Time-TO BE ENTERED AT DEPARTURE: 04/12/20 02:50 DS: Summary Status at Discharge Functional status at discharge: independent ambulation Overall status at discharge: patient is back to baseline Mental Status: mental status grossly normal Speech and Movement: speech and movement normal Mood: congruent mood Affect: normal affect Exam Psych Mental Status: mental status grossly normal Speech and Movement: speech and movement normal Mood: congruent mood Affect: normal affect DS: Data Vitals/I&O Vitals and I&O: Vital Signs Temperature 37.7 C H 04/12/20 02:32 Temperature Source Tympanic 04/12/20 02:32 Pulse 57 L 04/12/20 02:32 Pulse Rhythm Regular 04/11/20 21:18 Respiratory Rate 18 04/12/20 02:32 Respiratory Effort Non-Labored 04/11/20 21:18 Respiratory Depth Normal 04/11/20 21:18 Respiratory Pattern Normal 04/11/20 21:18 Blood Pressure 150/91 H 04/12/20 02:32 Pulse Oximetry 100 04/12/20 02:32 Oxygen Delivery Method Room Air 04/12/20 02:32 Oxygen Flow Rate 0 04/12/20 02:32 Pain Level 6 04/11/20 21:29 Comment 04/09/20 22:29 Intake & Output 04/11/20 04/11/20 04/12/20 11:59 23:59 11:59 Intake Total 2037.5 / 3512.5 1475 / 3512.5 287.5 / 287.5 Output Total 2220 / 3370 1150 / 3370 300 / 300 Balance -182.5 / 142.5 325 / 142.5 -12.5 / -12.5 Intake: IV 1937.5 / 3362.5 1425 / 3362.5 287.5 / 287.5 Oral 100 / 150 50 / 150 Output: Urine 2100 / 3200 1100 / 3200 300 / 300 Emesis 120 / 170 50 / 170 Other: Urine Color Straw Pale Pale Yellow Yellow Urine Appearance Clear Clear Clear Urine Odor Normal None None Comment Void x1 in the toilet. Void x1 in the toilet. Emesis Description Retching Bile Voiding Methods Toilet Toilet Toilet Data Completed and Pending Labs on day of discharge: Labs from last 24 hours 04/12/20 04/12/20 04/12/20 05:35 05:35 05:35 WBC Pending RBC Pending Hgb Pending Hct Pending MCV Pending MCH Pending MCHC Pending RDW Pending Plt Count Pending MPV Pending Immature Gran % Pending Neutrophils % Pending Lymphocytes % Pending Monocytes % Pending Eosinophils % Pending Basophils % Pending Absolute Neutrophils Pending Absolute Lymphocytes Pending Absolute Monocytes Pending Absolute Eosinophils Pending Absolute Basophils Pending PT Pending INR Pending Sodium Pending Potassium Pending Chloride Pending Carbon Dioxide Pending Anion Gap Pending BUN Pending Creatinine Pending Estimated GFR/1.73 m2 Pending Glucose Pending Calcium Pending Magnesium Pending Urine Color Urine Clarity Urine pH Ur Specific [place] Urine Protein Urine Ketones Urine Blood Urine Nitrite Urine Bilirubin Urine Urobilinogen Ur Leukocyte Esterase Urine RBC Urine WBC Ur Epithelial Cells Urine Crystals Urine Bacteria Urine Casts Urine Mucus Ur Culture Indicated? Urine Glucose Vancomycin Trough COVID-19 Source SARS-CoV-2 (PCR) Influenza Type A (PCR) Influenza Type B (PCR) RSV (PCR) 04/11/20 04/11/20 04/11/20 17:33 15:10 14:00 WBC RBC Hgb Hct MCV MCH MCHC RDW Plt Count MPV Immature Gran % Neutrophils % Lymphocytes % Monocytes % Eosinophils % Basophils % Absolute Neutrophils Absolute Lymphocytes Absolute Monocytes Absolute Eosinophils Absolute Basophils PT INR Sodium Potassium Chloride Carbon Dioxide Anion Gap BUN Creatinine Estimated GFR/1.73 m2 Glucose Calcium Magnesium Urine Color Yellow Urine Clarity Clear Urine pH 7.0 Ur Specific [place] 1.025 Urine Protein Negative Urine Ketones 80 H Urine Blood Trace-intact H Urine Nitrite Negative Urine Bilirubin Negative Urine Urobilinogen 0.2 Ur Leukocyte Esterase Negative Urine RBC 0-2 Urine WBC 3-5 Ur Epithelial Cells Moderate Urine Crystals Negative Urine Bacteria Few Urine Casts Negative Urine Mucus Negative Ur Culture Indicated? No/sq. contamination Urine Glucose Negative Vancomycin Trough 13.2 COVID-19 Source Nasopharynx SARS-CoV-2 (PCR) Negative Influenza Type A (PCR) Negative Influenza Type B (PCR) Negative RSV (PCR) Negative Preliminary micro results at discharge 04/10/20 22:15 Blood Culture - Preliminary Blood NO GROWTH 24 HOURS 04/10/20 21:50 Blood Culture - Preliminary Blood NO GROWTH 24 HOURS [facility] Medical History ADHD (attention deficit hyperactivity disorder), 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) Asthma (11/08/12) B12 deficiency Candidiasis Cannabis abuse with cannabis-induced disorder Cellulitis of left leg Chronic anticoagulation Chronic anticoagulation On coumadin Chronic back pain greater than 3 months duration (12/29/14) Cyst of fallopian tube Depression Factor V Leiden mutation GERD (gastroesophageal reflux disease) Hematuria History of DVT (deep vein thrombosis) Hypothyroidism Intractable vomiting with nausea Left buttock abscess Left lower quadrant pain (01/27/12) Migraine headache Nephrolithiasis Orbital cellulitis on left Panic disorder (03/21/16) Preseptal cellulitis of left eye Recurrent deep vein thrombosis (DVT) Right lower quadrant abdominal pain inflamed/ruptured fallopian tube on the right Thrombosis of arteries of lower extremity Vaginal candidiasis Surgical History Abdominal hysterectomy (~2009) 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) Arthroplasty of knee (~1999) left Bilateral salpingectomy with oophorectomy (~2008) Cervical Conization/LEEP LEEP 2003 [facility] 2003 Cholecystectomy S/P appendectomy (12/24/17) Dr Veliz - Car appy and lap excision of R fallopian tube remnant Status post cholecystectomy Status post LEEP (loop electrosurgical excision procedure) of cervix THUMB RECONSTRUCTION left; in childhood Social History Smoking/Tobacco Use Status: Never Smoking risk assessment performed?: Yes Alcohol Intake: current Alcohol Intake frequency: 0-2 drinks per day Drug use: Daily Substance use type: marijuana Do you feel safe at home: Yes Do you feel safe in your relationship?: Yes Additional Social history: Patient is and with one child. She denies any smoking or significant alcohol use, but admits to regular marijuana use.
== END 2020-04-12 02:50 | disposition left against medical advice (07) | DRG 394 ==
LOC: ER 23:33 → MS 04-10 01:02
PROVIDERS: Internal Medicine; Admitting Provider General Practice; Emergency Provider Nurse Practitioner Acute Care; PCP Family Medicine; Visit Provider General Practice
DX: R11.15 Cyclical vomiting syndrome unrelated to migraine (principal); K61.0 Anal abscess; D68.51 Activated protein C resistance; J45.909 Unspecified asthma, uncomplicated; E53.8 Deficiency of other specified B group vitamins; F90.9 Attention-deficit hyperactivity disorder, unspecified type; Z79.01 Long term (current) use of anticoagulants; G89.29 Other chronic pain; M54.9 Dorsalgia, unspecified; F32.9 Major depressive disorder, single episode, unspecified; K21.9 Gastro-esophageal reflux disease without esophagitis; Z86.718 Personal history of other venous thrombosis and embolism; E03.9 Hypothyroidism, unspecified; F41.0 Panic disorder [episodic paroxysmal anxiety]; E87.6 Hypokalemia
CPT/HCPCS: 36410; 36415; 80048; 80053; 83690; 85027; 87040; 87637; 94640; 96361; 96365; 96367; 96375; 99213; 99221; 99222; 99233; 99238; 99252; 99285; 80202; 81003; 81015; 83605; 83735; 85025; 85610; J0131; J0780; J1200; J1650; J2020; J2060; J2405; J3480

== ENCOUNTER 2020-04-11 01:36 | Outpatient (RCR) | payer MEDICARE, MEDICAID, SELFPAY ==
[2020-04-09] MEDS: LINEZOLID 600 MG/300 ML BAG 300 MG IVPB ×2 (11:27→19:44)
[2020-04-09] MEDS: Normal Saline Flush 10 ML SYR 20 ML IVP ×2 (11:28→19:44)
== END 2020-04-19 23:59 | disposition home or self-care (01) ==
LOC: INF 01:36
PROVIDERS: PCP Family Medicine; Visit Provider Surgery
DX: K61.0 Anal abscess (principal); Z86.14 Personal history of Methicillin resistant Staphylococcus aureus infection
CPT/HCPCS: 96365; 99212; 99213; J2020

== ENCOUNTER 2020-05-14 17:26 | Inpatient (IN) | payer MEDICARE, MEDICAID, SELFPAY ==
[2020-05-14] VITALS (23 sets, daily range): BP systolic 123–193; BP diastolic 71–105; PULSE 55–86; RESP 11–27; TEMP 36.4–37.8; O2SAT 92–100
--- NOTE | 2020-05-14 17:45 | RT.EKG_ITS ---
APPROVED REPORT Exam: Resting ECG Patient Location: E HR:55 bpm ECG Measurements Heart Rate 55 AXIS OK 151 P 54 QRSd 84 QRS -34 QT 492 T 35 QTc 470 Conclusion Slow sinus arrhythmia...V-rate 45- 62, mean< 60 Left axis deviation...QRS axis (-30,-90) Anteroseptal infarct, old...Q >40mS, V1-V2 I have reviewed and interpreted ECG and agree with software generated interpretation.
[2020-05-14] MEDS: Ondansetron 4 MG/2 ML VIAL (18:00)
[2020-05-14 18:09] LABS: Abs Immature Grans 0.12 10^3/uL (0.0-0.06); HCT 41.8 % (36.0-46.0); HGB 14.3 g/dL (11.2-15.7); MCH 28.9 pg (27.0-33.0); MCHC 34.2 % (32.0-36.0); MCV 84.4 fL (80-95); MPV 11.5 fL (8.0-11.0); Nucleated RBC 0 %; Platelet Count 332 10^3/uL (130-400); RBC 4.95 10^6/uL (3.93-5.22); RDW 13.7 % (11.7-14.6); RDW-SD 42.2 fL; WBC 22.47 10^3/uL (4.4-10.8)
[2020-05-14] MEDS: diphenhydrAMINE 50 MG/ML VIAL IVP (18:09)
[2020-05-14] MEDS: Normal Saline 1,000 ML 1000 ML IV (18:09)
[2020-05-14] MEDS: Prochlorperazine 10 MG/2 ML VIAL IVP (18:09)
--- NOTE | 2020-05-14 18:13 | W.ED.GENAD ---
Discharge Plan Disposition Patient Disposition: [facility] INPATIENT Discharge Details Clinical Impression: Cyclic vomiting syndrome, Hypokalemia Primary Care Provider: Patrica Lopez ED Provider: Kalie Allen Home Meds and New Rx's Prescriptions: No Action topiramate [Topamax] 200 mg tablet 400 mg PO HS Qty: 180 RF: 4 metoclopramide HCl [Reglan] 5 mg tablet 5 mg PO HS Qty: 30 RF: 3 sucralfate 1 gram tablet 1 g PO AC & HS Qty: 120 RF: 2 Citracal Plus Bone Density 1 EACH tablet 1 ea PO BID RF: 0 cyproheptadine 4 MG tablet 4 mg PO HS Qty: 90 RF: 3 ipratropium-albuterol 3 ML solution for nebulization 3 ml Inhalation Q4H PRN MDD 6 times PRNQty: 1 RF: 0 albuterol sulfate 1.25 mg/3 mL solution for nebulization 1.25 mg Inhalation Q6H PRN (Reason: shortness of breath or wheezing) Qty: 75 RF: 3 acidophilus-pectin, citrus 25 million cell -100 mg tablet 2 tab PO TID Qty: 90 RF: 4 alcohol swabs [Alcohol Wipes] Pads, Medicated See Rx Instructions TP .COMPLEX Qty: 300 RF: 4 triamcinolone acetonide 0.1 % cream 1 applic Topical BID PRN (Reason: eczema) Qty: 60 RF: 1 methylphenidate HCl 20 mg tablet 20 mg PO TID MDD 60 mg Qty: 84 RF: 0 fexofenadine 180 mg tablet 180 mg PO DAILY Qty: 90 RF: 4 warfarin 5 mg tablet 5 mg PO PER PROTOCOL Qty: 90 RF: 4 epinephrine [EpiPen 2-Nino] 0.3 mg/0.3 mL auto-injector 0.3 mg IM ONCE Qty: 1 RF: 1 Flovent HFA 220 mcg/actuation HFA aerosol inhaler 2 inh Inhalation BID Qty: 3 RF: 4 levothyroxine 125 mcg tablet 125 mcg PO .AM Qty: 90 RF: 0 omeprazole 40 mg capsule,delayed release(DR/EC) 40 mg PO DAILY Qty: 90 RF: 4 clotrimazole-betamethasone 1-0.05 % cream 1 applic Topical BID PRN (Reason: rash) Qty: 45 RF: 1 enoxaparin [Lovenox] 80 mg/0.8 mL syringe 72 mg subcut Q12H Qty: 8 RF: 0 albuterol sulfate [ProAir HFA] 90 mcg/actuation HFA aerosol inhaler 2 puff Inhalation Q6H PRN MDD 6 puffs Qty: 3 RF: 4 ondansetron HCl 8 mg tablet 8 mg PO BID PRN (Reason: nausea and vomiting) Qty: 20 RF: 0 sumatriptan succinate 6 mg/0.5 mL pen injector 6 mg subcut ONCE MDD 12mg PRN (Reason: migraine headache) Qty: 90 RF: 1 fluoxetine 10 mg capsule 10 mg PO DAILY RF: 0 clonazepam 1 mg tablet 1 mg PO TID PRN (Reason: anxiety) Qty: 90 RF: 0 hydrocodone-acetaminophen 5-325 mg tablet 1 tab PO BID MDD 2 tabs PRN (Reason: pain) Qty: 60 RF: 0 (DME) Space Chamber Plus 1 EACH spacer 1 ea Miscellaneous Q4H PRN Qty: 1 RF: 0 Narcan 4 MG spray,non-aerosol 4 mg NS DAILY PRN PRNQty: 2 RF: 0 diphenhydramine HCl [Benadryl Allergy] 25 mg tablet 100 mg PO HS RF: 0 diphenhydramine HCl 25 mg Capsule 25 mg PO Q4H PRN PRNQty: 20 RF: 0 lorazepam 2 mg/mL concentrate 1 mg PO Q6H PRNQty: 30 RF: 0 Medical Decision Making Patient has leukocytosis, 22,000 with a shift, I did order CT to evaluate for intra-abdominal pathology Patient denies chest pain or shortness of breath Her lactate was within normal limits Her potassium 3.2, mild decrease, no obvious T wave changes, magnesium 1.5, symptomatic with IV magnesium Given Benadryl, Reglan, Ativan, fentanyl, still resting in room, unable to tolerate p.o., slight metabolic acidosis likely dehydration and emesis induced CT abdomen and pelvis per virtual radiology shows evidence of mild colitis although patient does not have any diarrhea, no stool cultures indicated at this time Case discussed with Dr. Joyner, will admit patient for further evaluation observation Review prior discharge summary no evidence of No evidence of bowel obstruction on CT scan INR 1.5, subtherapeutic Any evidence that patient left here and admitted for the identical complaint although she has been evaluated while in the hospital for cyclic vomiting syndrome Differential Diagnosis Differential Diagnosis: Dehydration, cyclic vomiting syndrome, electrolyte abnormality, bowel obstr Medical Records Medical records reviewed: Yes I reviewed the patient's medical records. Lab Data Lab results reviewed: Yes I reviewed the patient's lab results. HPI This 40-year-old female with history of factor V Leiden, DVT, PE, anticoagulated on Coumadin, cannabinoid hyperemesis syndrome, chronic back pain, hypothyroidism presents with intractable vomiting since 2 AM this morning. Denies associated diarrhea. Reports abdominal pain started Vomiting. She denies any chest pain or shortness of breath. She denies dizziness or weakness. Not been able to consume any food from initiated. She denies any blood in vomitus. She denies any blood in stool. She smokes marijuana approximately every other day. She denies any known sick contacts. Denies any urinary component. Reports history of similar symptoms in past. Denies any recent surgeries. Denies any known sick contacts. Denies spoiled food, exotic travel. Denies chance of . General Date/Time Provider Initiated Documentation: 05/14/20 17:28. Related Data Home Medications Medication Instructions Recorded Confirmed Citracal Plus Bone Density 1 ea PO BID tab-cap 11/09/12 04/09/20 Space Chamber Plus #1 spacer 05/01/14 04/09/20 cyproheptadine 4 mg PO HS #90 tab-cap 06/04/16 04/09/20 Narcan 4 mg NS DAILY PRN PRN #2 spray 12/08/16 04/10/20 ipratropium-albuterol 3 ml INHALATION Q4H PRN PRN #1 box 01/23/17 04/10/20 MDD 6 times albuterol sulfate 1.25 mg/3 mL 1.25 mg INHALATION Q6H PRN #75 ml 01/12/19 04/09/20 solution for nebulization acidophilus 25 million 2 tab PO TID #90 tab 05/29/19 04/09/20 cell-pectin, citrus 100 mg tablet alcohol swabs See Rx Instructions TP .COMPLEX 07/11/19 04/09/20 #300 each triamcinolone acetonide 0.1 % 1 applic TOPICAL BID PRN #60 gm 09/05/19 04/10/20 topical cream methylphenidate HCl 20 mg tablet 20 mg PO TID #84 tab-cap MDD 60 mg 10/20/19 04/10/20 fexofenadine 180 mg tablet 180 mg PO DAILY #90 tab-cap 11/01/19 04/10/20 Topamax 200 mg tablet 400 mg PO HS #180 tab NS 11/11/19 04/10/20 diphenhydramine HCl [Benadryl 100 mg PO HS 12/13/19 04/09/20 Allergy] diphenhydramine HCl 25 mg PO Q4H PRN PRN #20 cap 12/15/19 04/09/20 lorazepam 1 mg PO Q6H PRN #30 ml 12/15/19 04/10/20 metoclopramide HCl 5 mg tablet 5 mg PO HS #30 tab 12/30/19 04/10/20 sucralfate 1 gram tablet 1 g PO AC & HS #120 tab 12/30/19 04/10/20 warfarin 5 mg tablet 5 mg PO PER PROTOCOL #90 tab 02/09/20 04/10/20 clotrimazole-betamethasone 1 1 applic TOPICAL BID PRN #45 gm 02/22/20 04/09/20 %-0.05 % topical cream epinephrine 0.3 mg/0.3 mL 0.3 mg IM ONCE #1 ea 02/22/20 04/10/20 injection, auto-injector fluticasone propionate 220 2 inh INHALATION BID #3 inhaler 02/22/20 04/10/20 mcg/actuation HFA aerosol inhaler levothyroxine 125 mcg tablet 125 mcg PO .AM #90 tab 02/22/20 04/10/20 omeprazole 40 mg capsule,delayed 40 mg PO DAILY #90 cap 02/22/20 04/10/20 release enoxaparin 80 mg/0.8 mL 72 mg SUBCUT Q12H #8 ml 02/24/20 04/09/20 subcutaneous syringe albuterol sulfate 90 mcg/actuation 2 puff INHALATION Q6H PRN #3 03/07/20 04/09/20 aerosol inhaler inhaler MDD 6 puffs ondansetron HCl 8 mg tablet 8 mg PO BID PRN #20 tab 03/07/20 04/10/20 sumatriptan succinate 6 mg/0.5 mL 6 mg SUBCUT ONCE PRN #90 syrg MDD 03/07/20 04/10/20 subcutaneous pen injector 12mg fluoxetine 10 mg capsule 10 mg PO DAILY 03/19/20 04/10/20 clonazepam 1 mg tablet 1 mg PO TID PRN #90 tab 03/20/20 04/09/20 hydrocodone 5 mg-acetaminophen 325 1 tab PO BID PRN #60 tab MDD 2 tabs 03/20/20 04/10/20 mg tablet Previous Rx's Medication Instructions Recorded Space Chamber Plus #1 spacer 05/01/14 Narcan 4 mg NS DAILY PRN PRN #2 spray 12/08/16 albuterol sulfate 1.25 mg/3 mL 1.25 mg INHALATION Q6H PRN #75 ml 01/12/19 solution for nebulization acidophilus 25 million 2 tab PO TID #90 tab 05/29/19 cell-pectin, citrus 100 mg tablet alcohol swabs See Rx Instructions TP .COMPLEX 07/11/19 #300 each triamcinolone acetonide 0.1 % 1 applic TOPICAL BID PRN #60 gm 09/05/19 topical cream methylphenidate HCl 20 mg tablet 20 mg PO TID #84 tab-cap MDD 60 mg 10/20/19 fexofenadine 180 mg tablet 180 mg PO DAILY #90 tab-cap 11/01/19 Topamax 200 mg tablet 400 mg PO HS #180 tab NS 11/11/19 diphenhydramine HCl 25 mg PO Q4H PRN PRN #20 cap 12/15/19 lorazepam 1 mg PO Q6H PRN #30 ml 12/15/19 metoclopramide HCl 5 mg tablet 5 mg PO HS #30 tab 12/30/19 sucralfate 1 gram tablet 1 g PO AC & HS #120 tab 12/30/19 warfarin 5 mg tablet 5 mg PO PER PROTOCOL #90 tab 02/09/20 clotrimazole-betamethasone 1 1 applic TOPICAL BID PRN #45 gm 02/22/20 %-0.05 % topical cream epinephrine 0.3 mg/0.3 mL 0.3 mg IM ONCE #1 ea 02/22/20 injection, auto-injector fluticasone propionate 220 2 inh INHALATION BID #3 inhaler 02/22/20 mcg/actuation HFA aerosol inhaler levothyroxine 125 mcg tablet 125 mcg PO .AM #90 tab 02/22/20 omeprazole 40 mg capsule,delayed 40 mg PO DAILY #90 cap 02/22/20 release enoxaparin 80 mg/0.8 mL 72 mg SUBCUT Q12H #8 ml 02/24/20 subcutaneous syringe albuterol sulfate 90 mcg/actuation 2 puff INHALATION Q6H PRN #3 03/07/20 aerosol inhaler inhaler MDD 6 puffs ondansetron HCl 8 mg tablet 8 mg PO BID PRN #20 tab 03/07/20 sumatriptan succinate 6 mg/0.5 mL 6 mg SUBCUT ONCE PRN #90 syrg MDD 03/07/20 subcutaneous pen injector 12mg clonazepam 1 mg tablet 1 mg PO TID PRN #90 tab 03/20/20 hydrocodone 5 mg-acetaminophen 325 1 tab PO BID PRN #60 tab MDD 2 tabs 03/20/20 mg tablet Allergies Allergy/AdvReac Type Severity Reaction Status Date / Time aripiprazole [From Abilify] Allergy Severe Rash, hives Verified 04/09/20 09:55 doxycycline Allergy Severe Anaphylaxsi Verified 04/09/20 09:55 s levetiracetam [From Keppra] Allergy Severe RASH/HIVES Verified 04/09/20 09:55 sulfamethoxazole Allergy Severe Hives Verified 04/09/20 09:55 venom-honey bee Allergy Severe unknown Verified 04/09/20 09:55 Penicillins Allergy Intermediate Skin Rash Verified 04/09/20 09:55 chlorhexidine Allergy Unknown unknown Verified 04/09/20 09:55 Sulfa (Sulfonamide Allergy Verified 04/09/20 09:55 Antibiotics) mold AdvReac Severe Wheezing Verified 04/09/20 09:55 oxycodone [Oxycodone] AdvReac Severe vomits Verified 04/09/20 09:55 paroxetine AdvReac Severe Irritability Verified 04/09/20 09:55 and anger dicloxacillin [Dicloxacillin] AdvReac Mild Nausea Verified 04/09/20 09:55 gabapentin AdvReac Mild hives Verified 04/09/20 09:55 prednisone AdvReac Agitation Verified 04/09/20 09:55 trazodone AdvReac shortness Verified 04/09/20 09:55 of breath verapamil [Verapamil] AdvReac Worsening Verified 04/09/20 09:55 migraine nuts Allergy Severe Anaphylaxsi Uncoded 04/09/20 09:55 s General Stated Complaint: Nausea/Vomit/Diar RYNE: 3 Review of Systems Narrative: Review of systems negative x7 aside from medication in HPI [facility] Medical History ADHD (attention deficit hyperactivity disorder), 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) Asthma (11/08/12) B12 deficiency Candidiasis Cannabis abuse with cannabis-induced disorder Cellulitis of left leg Chronic anticoagulation Chronic anticoagulation On coumadin Chronic back pain greater than 3 months duration (12/29/14) Cyst of fallopian tube Depression Factor V Leiden mutation GERD (gastroesophageal reflux disease) Hematuria History of DVT (deep vein thrombosis) Hypothyroidism Intractable vomiting with nausea Left buttock abscess Left lower quadrant pain (01/27/12) Migraine headache Nephrolithiasis Orbital cellulitis on left Panic disorder (03/21/16) Preseptal cellulitis of left eye Recurrent deep vein thrombosis (DVT) Right lower quadrant abdominal pain inflamed/ruptured fallopian tube on the right Thrombosis of arteries of lower extremity Vaginal candidiasis Surgical History Abdominal hysterectomy (~2009) 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) Arthroplasty of knee (~1999) left Bilateral salpingectomy with oophorectomy (~2008) Cervical Conization/LEEP LEEP 2003 [facility] 2003 Cholecystectomy S/P appendectomy (12/24/17) Dr Veliz - Car appy and lap excision of R fallopian tube remnant Status post cholecystectomy Status post LEEP (loop electrosurgical excision procedure) of cervix THUMB RECONSTRUCTION left; in childhood Social History Smoking/Tobacco Use Status: Never Smoking risk assessment performed?: Yes Alcohol Intake: current Alcohol Intake frequency: 0-2 drinks per day Drug use: Daily Substance use type: marijuana Do you feel safe at home: Yes Do you feel safe in your relationship?: Yes Additional Social history: Patient is and with one child. She denies any smoking or significant alcohol use, but admits to regular marijuana use. Exam Const General: healthy appearing HENMT Other: Moist mucous membranes Chest Chest: normal inspection of the chest Resp Effort & Inspection: normal respiratory effort Auscultation: clear to auscultation bilaterally Cardio Rate: regular rate Rhythm: regular rhythm GI Inspection: normal to inspection Other: Mild tenderness to palpation Skin General skin exam: no rashes or lesions noted Other: Pallor noted Neuro General: patient alert Course Vital Signs Vital signs: Vital Signs Temperature 36.4 C L 05/14/20 17:35 Pulse 60 05/14/20 17:35 Blood Pressure 177/90 H 05/14/20 17:35 Pulse Oximetry 99 05/14/20 17:35 Temperature 36.4 C L 05/14/20 17:35 Temperature Source Temporal Artery Scan 05/14/20 17:35 Pulse 60 05/14/20 17:35 Respiratory Effort Non-Labored 05/14/20 17:43 Blood Pressure 177/90 H 05/14/20 17:35 Blood Pressure Position Sitting 05/14/20 17:35 Pulse Oximetry 99 05/14/20 17:35 Oxygen Delivery Method Room Air 05/14/20 17:35 Oxygen Flow Rate 0 05/14/20 17:35 Pain Level 10 05/14/20 17:35
[2020-05-14 18:19] LABS: INR 1.5 (0.9-1.1); Prothrombin Time 14.6 sec (9.3-11.0)
[2020-05-14 18:23] LABS: Absolute Lymphocyte Count 1.12 10^3/uL (1.2-3.4); Absolute Monocyte Count 0.67 10^3/uL (0.1-0.8); Absolute Neutrophil Count 20.67 10^3/uL (1.2-6.7); Bands % 3
[2020-05-14 18:24] LABS: Diff Comment Manual Differential; RBC Morphology Normal
[2020-05-14 18:28] LABS: ALT 22 U/L (14-59); AST 16 U/L (15-37); Albumin 4.7 g/dL (3.4-5.0); Alkaline Phosphatase 54 U/L (46-116); Anion Gap 15.7 mmol/L (3-11); BUN 13 mg/dL (7-18); Bilirubin, Total 0.7 mg/dL (0.2-1.0); CO2 20.3 mmol/L (21.0-32.0); Calcium 9.2 mg/dL (8.5-10.1); Chloride 102 mmol/L (98-107); Estimated GFR 45.14 (mL/min/1.73m2); Glucose 172 mg/dL (74-106); Magnesium 1.5 mg/dL (1.8-2.4); Potassium 3.2 mmol/L (3.5-5.1); Sodium 138 mmol/L (136-145)
--- NOTE | 2020-05-14 18:30 | DI.CT_ITS ---
EXAM: CT ABDOMEN PELVIS W CLINICAL HISTORY: abdominal pain, vomiting. TECHNIQUE: Imaging Protocol: Axial computed tomography images with coronal and sagittal reformatted images were created and reviewed CONTRAST MATERIAL: Intravenous: Omnipaque 350 Contrast volume:100 Oral: / no COMPARISON: CT CT ABDOMEN PELVIS W from 04/06/2020 FINDINGS: ABDOMEN: Lung Bases: Minimal atelectasis. Liver: Normal density. No measurable mass. Gallbladder and biliary tract: Status post cholecystectomy. No radiodense calculus or dilation. Pancreas: Normal density, no abnormal calcifications or inflammatory process. Spleen: Normal. Kidneys: Normal size, contour and axis. no obstructive uropathy. No masses seen. Adrenal glands: No masses seen. Abdominal Aorta: Abdominal portion non-dilated. PELVIS: Bladder: Symmetric distention, no gross wall thickening. Bowel: Prior appendectomy. The colon is mainly decompressed. There is question of mild wall thicken ing which could indicate colitis. Stomach and small bowel unremarkable. No obstruction. Peritoneal cavity: No ascites, collection or mesenteric inflammatory response. Bones: Within normal limits. Reproductive organs: Status post hysterectomy. Lymph nodes: Unremarkable. Impression: Decompressed colon with questionable wall thickening which could indicate colitis versus under disten paul. RADIATION DOSE DELIVERED: 951.89mGy.cm Total DLP DATA REPOSITORY: All CT scans at this facility are submitted to the National Radiology Data Registry (NRDR) Dose Index Registry (DIR) with the [employer] (ACR). RADIATION OPTIMIZATION: All CT scans at this facility use at least one of these dose optimization te chniques: automated exposure control; mA and/or kV adjustment per patient size (includes targeted exa ms where dose is matched to clinical indication); or iterative reconstruction.
[2020-05-14 18:32] LABS: HCG Quant, Pregnancy < 1 mIU/mL (1-3)
[2020-05-14] MEDS: LORazepam 2 MG/ML VIAL 0.5 MG IVP ×2 (18:34→20:15)
[2020-05-14 18:39] LABS: Lipase 68 U/L (73-393)
[2020-05-14] MEDS: fentaNYL 100 MCG/2 ML VIAL 50 MCG IVP (18:55)
[2020-05-14] MEDS: Omnipaque 350 MG/ML 100 ML BTL IJ (19:13)
[2020-05-14] MEDS: Normal Saline - Diluent 50 ML VIAL IV (19:14)
--- NOTE | 2020-05-14 19:33 | DI.VRAD_ITS ---
PROCEDURE INFORMATION: Exam: CT Abdomen And Pelvis With Contrast Exam date and time: 05/14/2020 6:35 PM Age: 40 years old Clinical indication: Generalized; Prior surgery; Surgery date: 6+ months; Surgery type: Hysterectomy, cholecystectomy, and appendectomy; Patient HX: Abdominal pain and vomiting since 2am TECHNIQUE: Imaging protocol: Computed tomography of the abdomen and pelvis with intravenous contrast. Total images: 1193 Radiation optimization: All CT scans at this facility use at least one of these dose optimization techniques: automated exposure control; mA and/or kV adjustment per patient size (includes targeted exams where dose is matched to clinical indication); or iterative reconstruction. Contrast material: OMNIPAQUE 350; Contrast volume: 100 ml; Contrast route: INTRAVENOUS (IV); COMPARISON: CT ABDOMEN PELVIS W 04/06/2020 12:26 PM FINDINGS: Lungs: Mild atelectasis in the lung bases. Heart: Heart size normal. Mediastinal space: The visualized distal esophagus is normal. Liver: Normal contour. No mass lesions. No intrahepatic biliary ductal dilatation. Gallbladder and bile ducts: Evidence of prior cholecystectomy with no significant dilatation of the common bile duct. Pancreas: Normal. No inflammatory changes or ductal dilation. Spleen: Normal. No splenomegaly. Adrenal glands: Normal. No adrenal mass. Kidneys and ureters: No acute abnormalities. No hydronephrosis or hydroureter. No urinary tract stones are identified. Mixed phase contrast injection with excreted contrast in the renal collecting systems limiting sensitivity for small stones. There is a simple left renal cortical cyst. No further imaging evaluation is required. Stomach and bowel: The stomach is grossly normal. The small bowel is normal with no evidence of obstruction. Mild wall thickening throughout the colon with faint adjacent stranding suggesting colitis. The colon is largely contracted which may be contributing to this appearance somewhat. Appendix: Prior appendectomy. Intraperitoneal space: No free fluid or air. Vasculature: No acute process. No abdominal aortic aneurysm. Lymph nodes: No adenopathy. Urinary bladder: Unremarkable as visualized. Reproductive: Prior hysterectomy. Bones/joints: No acute osseous abnormalities. Soft tissues: Very small fatty umbilical hernia . No evidence of associated bowel herniation or bowel obstruction. IMPRESSION: 1. There is evidence of mild generalized colitis. No evidence of perforation or abscess. 2. Additional non-emergent findings detailed above. Dictated and Authenticated by: Jonny Nuñez MD. Ordering:KATEY Jade MD
[2020-05-14] MEDS: MAGNESIUM SULFATE 1 GM/100 ML BAG IVPB (19:34)
[2020-05-14] MEDS: DEXTROSE 5%-0.45% SALINE 1,000 ML 150 ML IV ×2 (19:41→23:04)
--- NOTE | 2020-05-14 19:50 | NUR.NOTE ---
Nursing Note: Continues to dry heave. PA at bedside to discuss POC for admission.
--- NOTE | 2020-05-14 20:06 | NUR.NOTE ---
Nursing Note:Continues to dry heave loudly. Can be heard from room 2 out into results waiting area.
--- NOTE | 2020-05-14 20:25 | W.PM.HP.N ---
Date of service: 05/14/20 Time of Service: 20:25 Assessment and Plan Assessment and plan (1) Vomiting: Status: Acute Assessment and plan: Vomiting. The presumptive diagnosis would be another iteration of her known cyclic vomiting disorder, though the leukocytosis is atypical. The CT findings of possible mild colitis are of unknown significance and I don't think likely to account for her presentation, though needs to be kept in mind. I think the reasonable approach at this point is supportive care, with bowel rest, IVF, electrolyte replacement and prn analgesics. Will add IV PPI as her pain pattern is most suggestive of a heart burn like picture. Will track white count -- could simply be stress pattern -- and monitor clinically. Will continue prn Zofran, as she tells me this is what has been most effective in past. History of Present Illness History of Present Illness Chief Complaint: vomiting Narrative: 40 female with h/o cyclic vomiting, generally ascribed to cannabis, comes in with one day of vomiting and abdominal pain (she indicates this as epigastric with burning radiation to chest and throat). In ER findings of note for leukocytosis (22K), hypokalemia (3.2), hypomagnesemia (1.5) and renal insufficiency (Creat. 1.3). CT abdomen shows mild diffuse colonic wall thickening, suggestive of possible colitis, though findings may be attributable to colonic contraction it is noted. Has received Ativan, Phenergan, Zofran and Benadryl, with little effect; also Fentanyl x one. Due to persistent vomiting she is admitted for further management. Note recent (04/08) course of antibiotics for perianal abcess, but patient denies diarrhea; bowel pattern is BM q 2-3 days, and this is presently unchanged. Review of Systems All systems reviewed & are unremarkable except as noted in HPI and below PFSH Medical History ADHD (attention deficit hyperactivity disorder), 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) Asthma (11/08/12) B12 deficiency Candidiasis Cannabis abuse with cannabis-induced disorder Cellulitis of left leg Chronic anticoagulation Chronic anticoagulation On coumadin Chronic back pain greater than 3 months duration (12/29/14) Cyst of fallopian tube Depression Factor V Leiden mutation GERD (gastroesophageal reflux disease) Hematuria History of DVT (deep vein thrombosis) Hypothyroidism Intractable vomiting with nausea Left buttock abscess Left lower quadrant pain (01/27/12) Migraine headache Nephrolithiasis Orbital cellulitis on left Panic disorder (03/21/16) Preseptal cellulitis of left eye Recurrent deep vein thrombosis (DVT) Right lower quadrant abdominal pain inflamed/ruptured fallopian tube on the right Thrombosis of arteries of lower extremity Vaginal candidiasis Surgical History Abdominal hysterectomy (~2009) 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) Arthroplasty of knee (~1999) left Bilateral salpingectomy with oophorectomy (~2008) Cervical Conization/LEEP LEEP 2002 [facility] BX 2003 Cholecystectomy S/P appendectomy (12/24/17) Dr Veliz - Car appy and lap excision of R fallopian tube remnant Status post cholecystectomy Status post LEEP (loop electrosurgical excision procedure) of cervix THUMB RECONSTRUCTION left; in childhood Social History Smoking/Tobacco Use Status: Never Smoking risk assessment performed?: Yes Alcohol Intake: current Alcohol Intake frequency: 0-2 drinks per day Drug use: Daily Substance use type: marijuana Do you feel safe at home: Yes Do you feel safe in your relationship?: Yes Additional Social history: Patient is and with one child. She denies any smoking or significant alcohol use, but admits to regular marijuana use. Meds Home Medications and Allergies Home Medications Medication Instructions Recorded Confirmed Type Citracal Plus Bone Density 1 ea PO BID tab-cap 11/09/12 04/09/20 History Space Chamber Plus #1 spacer 05/01/14 04/09/20 Rx cyproheptadine 4 mg PO HS #90 tab-cap 06/04/16 04/09/20 History Narcan 4 mg NS DAILY PRN PRN #2 spray 12/08/16 04/10/20 Rx ipratropium-albuterol 3 ml INHALATION Q4H PRN PRN #1 box 01/23/17 04/10/20 History MDD 6 times albuterol sulfate 1.25 mg/3 mL 1.25 mg INHALATION Q6H PRN #75 ml 01/12/19 04/09/20 Rx solution for nebulization acidophilus 25 million 2 tab PO TID #90 tab 05/29/19 04/09/20 Rx cell-pectin, citrus 100 mg tablet alcohol swabs See Rx Instructions TP .COMPLEX 07/11/19 04/09/20 Rx #300 each triamcinolone acetonide 0.1 % 1 applic TOPICAL BID PRN #60 gm 09/05/19 04/10/20 Rx topical cream methylphenidate HCl 20 mg tablet 20 mg PO TID #84 tab-cap MDD 60 mg 10/20/19 04/10/20 Rx fexofenadine 180 mg tablet 180 mg PO DAILY #90 tab-cap 11/01/19 04/10/20 Rx Topamax 200 mg tablet 400 mg PO HS #180 tab NS 11/11/19 04/10/20 Rx diphenhydramine HCl [Benadryl 100 mg PO HS 12/13/19 04/09/20 History Allergy] diphenhydramine HCl 25 mg PO Q4H PRN PRN #20 cap 12/15/19 04/09/20 Rx lorazepam 1 mg PO Q6H PRN #30 ml 12/15/19 04/10/20 Rx metoclopramide HCl 5 mg tablet 5 mg PO HS #30 tab 12/30/19 04/10/20 Rx sucralfate 1 gram tablet 1 g PO AC & HS #120 tab 12/30/19 04/10/20 Rx warfarin 5 mg tablet 5 mg PO PER PROTOCOL #90 tab 02/09/20 04/10/20 Rx clotrimazole-betamethasone 1 1 applic TOPICAL BID PRN #45 gm 02/22/20 04/09/20 Rx %-0.05 % topical cream epinephrine 0.3 mg/0.3 mL 0.3 mg IM ONCE #1 ea 02/22/20 04/10/20 Rx injection, auto-injector fluticasone propionate 220 2 inh INHALATION BID #3 inhaler 02/22/20 04/10/20 Rx mcg/actuation HFA aerosol inhaler levothyroxine 125 mcg tablet 125 mcg PO .AM #90 tab 02/22/20 04/10/20 Rx omeprazole 40 mg capsule,delayed 40 mg PO DAILY #90 cap 02/22/20 04/10/20 Rx release enoxaparin 80 mg/0.8 mL 72 mg SUBCUT Q12H #8 ml 02/24/20 04/09/20 Rx subcutaneous syringe albuterol sulfate 90 mcg/actuation 2 puff INHALATION Q6H PRN #3 03/07/20 04/09/20 Rx aerosol inhaler inhaler MDD 6 puffs ondansetron HCl 8 mg tablet 8 mg PO BID PRN #20 tab 03/07/20 04/10/20 Rx sumatriptan succinate 6 mg/0.5 mL 6 mg SUBCUT ONCE PRN #90 syrg MDD 03/07/20 04/10/20 Rx subcutaneous pen injector 12mg fluoxetine 10 mg capsule 10 mg PO DAILY 03/19/20 04/10/20 History clonazepam 1 mg tablet 1 mg PO TID PRN #90 tab 03/20/20 04/09/20 Rx hydrocodone 5 mg-acetaminophen 325 1 tab PO BID PRN #60 tab MDD 2 tabs 03/20/20 04/10/20 Rx mg tablet Allergies Allergy/AdvReac Type Severity Reaction Status Date / Time aripiprazole [From Abilify] Allergy Severe Rash, hives Verified 04/09/20 09:55 doxycycline Allergy Severe Anaphylaxsi Verified 04/09/20 09:55 s levetiracetam [From Keppra] Allergy Severe RASH/HIVES Verified 04/09/20 09:55 sulfamethoxazole Allergy Severe Hives Verified 04/09/20 09:55 venom-honey bee Allergy Severe unknown Verified 04/09/20 09:55 Penicillins Allergy Intermediate Skin Rash Verified 04/09/20 09:55 chlorhexidine Allergy Unknown unknown Verified 04/09/20 09:55 Sulfa (Sulfonamide Allergy Verified 04/09/20 09:55 Antibiotics) mold AdvReac Severe Wheezing Verified 04/09/20 09:55 oxycodone [Oxycodone] AdvReac Severe vomits Verified 04/09/20 09:55 paroxetine AdvReac Severe Irritability Verified 04/09/20 09:55 and anger dicloxacillin [Dicloxacillin] AdvReac Mild Nausea Verified 04/09/20 09:55 gabapentin AdvReac Mild hives Verified 04/09/20 09:55 prednisone AdvReac Agitation Verified 04/09/20 09:55 trazodone AdvReac shortness Verified 04/09/20 09:55 of breath verapamil [Verapamil] AdvReac Worsening Verified 04/09/20 09:55 migraine nuts Allergy Severe Anaphylaxsi Uncoded 04/09/20 09:55 s Exam Narrative Exam Narrative: 156/76, 769, 36.4, 18, 100% RA. HEENT atraumatic; neck supple; lungs clear; heart RRR w/o MRG; abdomen soft, minimal diffuse tenderness w/o rebound; extremities w/o edema; neuro Ox3, moves all 4s Results Labs Result diagrams: 05/14/20 17:45 05/14/20 17:45 Labs: Laboratory Results - last 24 hr 05/14/20 05/14/20 05/14/20 17:45 17:45 17:45 WBC 22.47 H RBC 4.95 Hgb 14.3 Hct 41.8 MCV 84.4 MCH 28.9 MCHC 34.2 RDW 13.7 Plt Count 332 MPV 11.5 H Immature Gran % 0.0 Neutrophils % 89.0 Band Neutrophils % 3 Lymphocytes % 5.0 Monocytes % 3.0 Eosinophils % 0.0 Basophils % 0.0 Nucleated RBC % 0 Absolute Neutrophils 20.67 H Absolute Lymphocytes 1.12 L Absolute Monocytes 0.67 Absolute Eosinophils 0.00 Absolute Basophils 0.00 RBC Morphology Normal PT 14.6 H INR 1.5 H Sodium 138 Potassium 3.2 L Chloride 102 Carbon Dioxide 20.3 L Anion Gap 15.7 H BUN 13 Creatinine 1.30 H Estimated GFR/1.73 m2 45.14 Glucose 172 H Calcium 9.2 Magnesium 1.5 L Total Bilirubin 0.7 AST 16 ALT 22 Alkaline Phosphatase 54 Total Protein 8.0 Albumin 4.7 Lipase 68 Beta HCG, Quant < 1 L Last Vital Signs Temp 36.4 C L 05/14/20 17:35 Pulse 55 L 05/14/20 17:49 Resp 18 05/14/20 18:50 BP 156/76 H 05/14/20 17:49 Pulse Ox 100 05/14/20 18:10 COVID-19 Screening Have you, or household traveled for leisure in last 14 days?: No Had IN PERSON contact w/suspected or confirmed C-19 person: No
--- NOTE | 2020-05-14 21:10 | NUR.NOTE ---
Nursing Note:Patient rang call light asking staff to stop the beeping. I went into patient room and patient totally of the monitor. I let her know that is why everything is beeping. Patient states she had to go to the bathroom. I asked patient who let her up to the bathroom? Patient states no one, she took the monitor off. I asked patient who disconnected her IV? States no one she unplugged the pumps and took herself to the bathroom. I asked her why she did not ring her call sheehan as she has rung it for everything else frequently.? States she did not think she needed to ring it to go to the bathroom. I asked her if she got a urine specimen? States no I did'nt know I needed to. I reminded patient that was the first thing I asked her about at shift change and she said she could not go at that time.
[2020-05-14 22:39] LABS: Bilirubin Negative (Negative); Blood Small (Negative); Clarity Clear (Clear); Glucose 100 mg/dL (Negative); Ketones Negative (Negative); Leukocyte Esterase Negative (Negative); Nitrite Negative (Negative); Urobilinogen 0.2 EU/dL (Up TO 0.2); pH 7.5 (5-8)
[2020-05-14 22:52] LABS: Bacteria Negative HPF (Negative); Epithelial Cells Few HPF (Negative); WBC Negative HPF (0-5)
[2020-05-14 22:53] LABS: C & S Indicated? No; Casts Negative LPF (Negative); Crystals Negative HPF (Negative); Mucus Negative (Negative)
[2020-05-14 22:58] LABS: *AMPHETAMINES SCREEN URINE Negative (Negative); *BARBITURATES SCREEN URINE Negative (Negative); *BENZODIAZEPINES SCREEN URINE Negative (Negative); Cannabinoids THC POSITIVE (Negative); Cocaine Screen,Urine Negative (Negative); METHADONE URINE SCREEN Negative (Negative); OPIATES URINE SCREEN Negative (Negative)
[2020-05-14] MEDS: LORazepam 2 MG/ML VIAL IVP (23:05)
[2020-05-14] MEDS: Normal Saline Flush 10 ML SYR (23:05)
[2020-05-14 23:08] LABS: Tricyclic Antidepressants Negative (Negative)
--- NOTE | 2020-05-15 | DI.CT_ITS ---
EXAM: CT CHEST WO CLINICAL HISTORY: fever, epigastric pain radiating to chest and neck TECHNIQUE: Imaging Protocol: Axial computed tomography images with coronal and sagittal reformatted images were created and reviewed CONTRAST MATERIAL: Noncontrast COMPARISON: CR CHEST 2 VIEWS PA,LAT from 11/17/2016 FINDINGS: Mildly limited exam due to respiratory motion. Mediastinum and Meghan: No dominant adenopathy or fluid collection. Pulmonary parenchyma: No consolidation or dominant measurable mass. No architectural distortion. Pleura: No effusion or pneumothorax. Heart: The heart is not dilated. No coronary artery calcifications are seen. Aorta: Thoracic aorta non-dilated. Upper abdomen: Unremarkable. Lymph nodes: Within normal limits. Bones: Minimal degenerative disc changes in the spine. Soft tissues: Unremarkable. IMPRESSION: No acute abnormality. RADIATION DOSE DELIVERED: 569.32mGy.cm Total DLP DATA REPOSITORY: All CT scans at this facility are submitted to the National Radiology Data Registry (NRDR) Dose Index Registry (DIR) with the [employer] (ACR). RADIATION OPTIMIZATION: All CT scans at this facility use at least one of these dose optimization te chniques: automated exposure control; mA and/or kV adjustment per patient size (includes targeted exa ms where dose is matched to clinical indication); or iterative reconstruction.
[2020-05-15] MEDS: POTASSIUM CHLORIDE/D5-0.9%NACL 1,000 ML 150 MEQ IV ×3 (00:47→15:50)
[2020-05-15 00:52] VITALS: BP 159/75; PULSE 80; RESP 18; TEMP 39.1; O2SAT 97
[2020-05-15] MEDS: Pantoprazole 40 MG VIAL (02:30)
[2020-05-15] MEDS: ACETAMINOPHEN 1,000 MG/100 ML BTL 400 MG IVPB ×2 (02:30→10:42)
[2020-05-15] MEDS: MAGNESIUM SULFATE 1 GM/100 ML BAG 100 GM (02:36)
[2020-05-15] MEDS: Normal Saline Flush 10 ML SYR (02:37)
[2020-05-15] MEDS: metroNIDAZOLE 500 MG/100 ML BAG 100 MG IVPB ×4 (02:55→21:09)
[2020-05-15] MEDS: Ondansetron 4 MG/2 ML VIAL IVP ×2 (03:00→08:40)
[2020-05-15 03:15] LABS: Source Nasopharynx
[2020-05-15 03:54] LABS: Influenza A PCR Negative (Negative); Influenza B PCR Negative (Negative); RSV PCR Negative (Negative)
[2020-05-15 03:59] LABS: COVID-19 PCR Negative (Negative)
[2020-05-15 04:03] VITALS: BP 123/79; PULSE 72; RESP 19; TEMP 37.6; O2SAT 97
[2020-05-15] MEDS: Enoxaparin 80 MG/0.8 ML SYR 70 MG SC ×2 (04:23→15:49)
[2020-05-15] MEDS: CIPROFLOXACIN 400 MG/200 ML BAG 200 MG IVPB ×2 (04:24→15:51)
--- NOTE | 2020-05-15 04:30 | DI.VRAD_ITS ---
PROCEDURE INFORMATION: Exam: CT Chest Without Contrast; Diagnostic Exam date and time: 05/15/2020 4:11 AM Age: 40 years old Clinical indication: Fever; Patient HX: Epigastric pain radiating to chest and neck, vomiting for 24 hours TECHNIQUE: Imaging protocol: Diagnostic computed tomography of the chest without contrast. Radiation optimization: All CT scans at this facility use at least one of these dose optimization techniques: automated exposure control; mA and/or kV adjustment per patient size (includes targeted exams where dose is matched to clinical indication); or iterative reconstruction. COMPARISON: CR CHEST 2 VIEWS PA,LAT 11/17/2016 7:39 PM FINDINGS: Lungs: Unremarkable. No consolidation. No masses. Pleural space: Unremarkable. No pneumothorax. No pleural effusion. Heart: Unremarkable. No cardiomegaly. No pericardial effusion. Aorta: Unremarkable. No aortic aneurysm. Lymph nodes: Unremarkable. No enlarged lymph nodes. Bones/joints: Unremarkable. No acute fracture. Soft tissues: Unremarkable. IMPRESSION: No acute findings. Dictated and Authenticated by: Justino Antony MD. Ordering:BEV Talavera MD
[2020-05-15] MEDS: fentaNYL 100 MCG/2 ML VIAL 25 MCG IVP ×2 (04:37→06:57)
[2020-05-15] MEDS: VANCOMYCIN 1,250 MG in Normal Saline 250 ML 166.6666 MG IVPB (05:45)
[2020-05-15] MEDS: LORazepam 2 MG/ML VIAL IVP ×3 (06:54→21:08)
[2020-05-15] MEDS: Normal Saline Flush 10 ML SYR IVP ×5 (06:54→23:09)
[2020-05-15 07:23] VITALS: BP 113/68; PULSE 79; RESP 18; TEMP 37.2; O2SAT 98
[2020-05-15 08:06] LABS: HCT 35.6 % (36.0-46.0); HGB 12.3 g/dL (11.2-15.7); MCH 28.9 pg (27.0-33.0); MCHC 34.6 % (32.0-36.0); MCV 83.6 fL (80-95); MPV 11.5 fL (8.0-11.0); Platelet Count 259 10^3/uL (130-400); RBC 4.26 10^6/uL (3.93-5.22); RDW 14.3 % (11.7-14.6); WBC 14.88 10^3/uL (4.4-10.8)
[2020-05-15 08:27] LABS: Abs Immature Grans 0.07 10^3/uL (0.0-0.06); Absolute Basophil Count 0.02 10^3/uL (0.0-0.2); Absolute Eosinophil Count 0.01 10^3/uL (0.0-0.7); Absolute Lymphocyte Count 1.47 10^3/uL (1.2-3.4); Absolute Monocyte Count 0.83 10^3/uL (0.1-0.8); Absolute Neutrophil Count 12.46 10^3/uL (1.2-6.7); Basophils % 0.1; Eosinophils % 0.1; Immature Grans % 0.5; Lymphocytes % 9.9; Monocytes % 5.6; Neutrophils % 83.8; Nucleated RBC 0 %
[2020-05-15 08:35] LABS: Anion Gap 9.6 mmol/L (3-11); BUN 10 mg/dL (7-18); CO2 22.4 mmol/L (21.0-32.0); CREATININE 0.89 mg/dL (0.55-1.02); Calcium 7.8 mg/dL (8.5-10.1); Chloride 103 mmol/L (98-107); Glucose 123 mg/dL (74-106); Magnesium 2.3 mg/dL (1.8-2.4); Potassium 3.1 mmol/L (3.5-5.1); Sodium 135 mmol/L (136-145)
[2020-05-15 08:39] LABS: C-Reactive Protein 0.29 mg/dL (0.0-0.3)
[2020-05-15 09:00] LABS: Procalcitonin 0.1 ng/mL
[2020-05-15] MEDS: HYDROmorphone 2 MG/ML VIAL 0.5 MG IVP ×3 (09:14→23:09)
[2020-05-15] MEDS: POTASSIUM CHLORIDE 10 MEQ/100 ML BAG 100 MEQ IVPB ×3 (09:15→13:15)
--- NOTE | 2020-05-15 10:07 | W.PM.PROGNOT ---
Date of Service Date of service: 05/15/20 Time of Service: 10:07 Assessment and Plan Assessment and plan (1) Intractable nausea and vomiting: Status: Resolved Assessment and plan: improving, will try advancing diet has history of cyclical vomiting history but this appears to be more infectious continue to monitor, provide antiemetic and fluids, (2) Perirectal abscess: Status: Acute Assessment and plan: has been followed by surgery, has been followed by CT scan and stable. On exam there has been no erythema, no fluctuance, and no pain. surgery recommends she get 5 days of IV antibiotics and feels at this point there is no surgical intervention needed. has history of MRSA continue antibiotics. (3) Factor V Leiden mutation: Status: Chronic (4) ADHD (attention deficit hyperactivity disorder), inattentive type: Status: Chronic Assessment and plan: continue home medication (5) Hypothyroidism: Status: Chronic Assessment and plan: TSH 0.54 in mar 2020. continue synthroid Qualifiers: Hypothyroidism type: acquired Qualified Code(s): E03.9 - Hypothyroidism, unspecified (6) Panic disorder: Status: Chronic Assessment and plan: continue home medications discussed with Dr Conklin who is in agreement Subjective Subjective Patient reports: still having pain, nausea and fever (max temp overnight 39.1) Exam Const General: healthy appearing Chest Chest: normal inspection of the chest Resp Effort & Inspection: normal respiratory effort Auscultation: clear to auscultation bilaterally Cardio Rate: regular rate Rhythm: regular rhythm GI Inspection: normal to inspection Skin General skin exam: no rashes or lesions noted Neuro General: patient alert Objective Last Vital Signs Temp 37.2 C 05/15/20 07:23 Pulse 79 05/15/20 07:23 Resp 18 05/15/20 07:23 BP 113/68 05/15/20 07:23 Pulse Ox 98 05/15/20 07:23 Laboratory Results - last 24 hr 05/14/20 05/14/20 05/14/20 17:45 17:45 17:45 WBC 22.47 H RBC 4.95 Hgb 14.3 Hct 41.8 MCV 84.4 MCH 28.9 MCHC 34.2 RDW 13.7 Plt Count 332 MPV 11.5 H Immature Gran % 0.0 Neutrophils % 89.0 Band Neutrophils % 3 Lymphocytes % 5.0 Monocytes % 3.0 Eosinophils % 0.0 Basophils % 0.0 Nucleated RBC % 0 Absolute Neutrophils 20.67 H Absolute Lymphocytes 1.12 L Absolute Monocytes 0.67 Absolute Eosinophils 0.00 Absolute Basophils 0.00 RBC Morphology Normal PT 14.6 H INR 1.5 H Sodium 138 Potassium 3.2 L Chloride 102 Carbon Dioxide 20.3 L Anion Gap 15.7 H BUN 13 Creatinine 1.30 H Estimated GFR/1.73 m2 45.14 Glucose 172 H Calcium 9.2 Magnesium 1.5 L Total Bilirubin 0.7 AST 16 ALT 22 Alkaline Phosphatase 54 C-Reactive Protein Total Protein 8.0 Albumin 4.7 Lipase 68 Procalcitonin Beta HCG, Quant < 1 L Urine Color Urine Clarity Urine pH Ur Specific Marshall Urine Protein Urine Ketones Urine Blood Urine Nitrite Urine Bilirubin Urine Urobilinogen Ur Leukocyte Esterase Urine RBC Urine WBC Ur Epithelial Cells Urine Crystals Urine Bacteria Urine Casts Urine Mucus Ur Culture Indicated? Urine Glucose Urine Opiates Screen Urine Methadone Screen Ur Barbiturates Screen Ur Tricyclics Screen Ur Amphetamines Screen U Benzodiazepines Scrn Urine Cocaine Screen Ur THC Screen COVID-19 Source SARS-CoV-2 (PCR) Influenza Type A (PCR) Influenza Type B (PCR) RSV (PCR) 05/14/20 05/14/20 05/15/20 22:25 22:25 02:30 WBC RBC Hgb Hct MCV MCH MCHC RDW Plt Count MPV Immature Gran % Neutrophils % Band Neutrophils % Lymphocytes % Monocytes % Eosinophils % Basophils % Nucleated RBC % Absolute Neutrophils Absolute Lymphocytes Absolute Monocytes Absolute Eosinophils Absolute Basophils RBC Morphology PT INR Sodium Potassium Chloride Carbon Dioxide Anion Gap BUN Creatinine Estimated GFR/1.73 m2 Glucose Calcium Magnesium Total Bilirubin AST ALT Alkaline Phosphatase C-Reactive Protein Total Protein Albumin Lipase Procalcitonin Beta HCG, Quant Urine Color Yellow Urine Clarity Clear Urine pH 7.5 Ur Specific Marshall 1.020 Urine Protein Negative Urine Ketones Negative Urine Blood Small H Urine Nitrite Negative Urine Bilirubin Negative Urine Urobilinogen 0.2 Ur Leukocyte Esterase Negative Urine RBC 3-5 H Urine WBC Negative Ur Epithelial Cells Few Urine Crystals Negative Urine Bacteria Negative Urine Casts Negative Urine Mucus Negative Ur Culture Indicated? No Urine Glucose 100 Urine Opiates Screen Negative Urine Methadone Screen Negative Ur Barbiturates Screen Negative Ur Tricyclics Screen Negative Ur Amphetamines Screen Negative U Benzodiazepines Scrn Negative Urine Cocaine Screen Negative Ur THC Screen Positive A COVID-19 Source Nasopharynx SARS-CoV-2 (PCR) Negative Influenza Type A (PCR) Negative Influenza Type B (PCR) Negative RSV (PCR) Negative 05/15/20 05/15/20 05/15/20 07:54 07:54 07:54 WBC 14.88 H D RBC 4.26 Hgb 12.3 Hct 35.6 L MCV 83.6 MCH 28.9 MCHC 34.6 RDW 14.3 Plt Count 259 MPV 11.5 H Immature Gran % 0.5 Neutrophils % 83.8 Band Neutrophils % Lymphocytes % 9.9 Monocytes % 5.6 Eosinophils % 0.1 Basophils % 0.1 Nucleated RBC % 0 Absolute Neutrophils 12.46 H Absolute Lymphocytes 1.47 Absolute Monocytes 0.83 H Absolute Eosinophils 0.01 Absolute Basophils 0.02 RBC Morphology PT INR Sodium 135 L Potassium 3.1 L Chloride 103 Carbon Dioxide 22.4 Anion Gap 9.6 BUN 10 Creatinine 0.89 Estimated GFR/1.73 m2 >= 60.00 Glucose 123 H Calcium 7.8 L Magnesium 2.3 Total Bilirubin AST ALT Alkaline Phosphatase C-Reactive Protein 0.29 Total Protein Albumin Lipase Procalcitonin Beta HCG, Quant Urine Color Urine Clarity Urine pH Ur Specific Marshall Urine Protein Urine Ketones Urine Blood Urine Nitrite Urine Bilirubin Urine Urobilinogen Ur Leukocyte Esterase Urine RBC Urine WBC Ur Epithelial Cells Urine Crystals Urine Bacteria Urine Casts Urine Mucus Ur Culture Indicated? Urine Glucose Urine Opiates Screen Urine Methadone Screen Ur Barbiturates Screen Ur Tricyclics Screen Ur Amphetamines Screen U Benzodiazepines Scrn Urine Cocaine Screen Ur THC Screen COVID-19 Source SARS-CoV-2 (PCR) Influenza Type A (PCR) Influenza Type B (PCR) RSV (PCR) 05/15/20 07:54 WBC RBC Hgb Hct MCV MCH MCHC RDW Plt Count MPV Immature Gran % Neutrophils % Band Neutrophils % Lymphocytes % Monocytes % Eosinophils % Basophils % Nucleated RBC % Absolute Neutrophils Absolute Lymphocytes Absolute Monocytes Absolute Eosinophils Absolute Basophils RBC Morphology PT INR Sodium Potassium Chloride Carbon Dioxide Anion Gap BUN Creatinine Estimated GFR/1.73 m2 Glucose Calcium Magnesium Total Bilirubin AST ALT Alkaline Phosphatase C-Reactive Protein Total Protein Albumin Lipase Procalcitonin 0.1 Beta HCG, Quant Urine Color Urine Clarity Urine pH Ur Specific Marshall Urine Protein Urine Ketones Urine Blood Urine Nitrite Urine Bilirubin Urine Urobilinogen Ur Leukocyte Esterase Urine RBC Urine WBC Ur Epithelial Cells Urine Crystals Urine Bacteria Urine Casts Urine Mucus Ur Culture Indicated? Urine Glucose Urine Opiates Screen Urine Methadone Screen Ur Barbiturates Screen Ur Tricyclics Screen Ur Amphetamines Screen U Benzodiazepines Scrn Urine Cocaine Screen Ur THC Screen COVID-19 Source SARS-CoV-2 (PCR) Influenza Type A (PCR) Influenza Type B (PCR) RSV (PCR)
[2020-05-15 10:40] VITALS: TEMP 37.9
--- NOTE | 2020-05-15 15:23 | RESPIRATORY ---
Rt spoke with patient concerning the use of her prescribed Flovent HFA 220mcg inhaler. Patient stated she doesn't use the inhaler very often and only as needed. Patient does not want the inhaler prescribe for her currently visit.
[2020-05-15 17:08] VITALS: BP 114/76; PULSE 76; RESP 18; TEMP 37; O2SAT 98
[2020-05-15] MEDS: VANCOMYCIN 1,000 MG in Normal Saline 250 ML 166.667 MG IV (17:25)
--- NOTE | 2020-05-15 21:24 | INITIAL_ITS ---
- If Service Date Differs Date of service: 05/15/20 Time of Service: 21:24 Care Management Initial Assess REASON FOR HOSPITALIZATION:: Vomiting PAST MEDICAL HISTORY/PAST SURGICAL HISTORY:: Medical History. ADHD (attention deficit hyperactivity disorder), 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). Asthma (11/08/12). B12 deficiency. Candidiasis. Cannabis abuse with cannabis-induced disorder. Cellulitis of left leg. Chronic anticoagulation. Chronic anticoagulation. On coumadin. Chronic back pain greater than 3 months duration (12/29/14). Cyst of fallopian tube. Depression. Factor V Leiden mutation. GERD (gastroesophageal reflux disease). Hematuria. History of DVT (deep vein thrombosis). Hypothyroidism. Intractable vomiting with nausea. Left buttock abscess. Left lower quadrant pain (01/27/12). Migraine headache. Nephrolithiasis. Orbital cellulitis on left. Panic disorder (03/21/16). Preseptal cellulitis of left eye. Recurrent deep vein thrombosis (DVT). Right lower quadrant abdominal pain. inflamed/ruptured fallopian tube on the right. Thrombosis of arteries of lower extremity. Vaginal candidiasis. Surgical History. Abdominal hysterectomy (~2009). 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 Arthroplasty of knee (~1999). left. Bilateral salpingectomy with oophorectomy (~2008). Cervical Conization/LEEP. LEEP 2002. CONE BX 2002. Cholecystectomy. S/P appendectomy (12/24/17). Dr Veliz - Car [place]sworth and car excision of R fallopian tube remnant. Status post cholecystectomy. Status post LEEP (loop electrosurgical excision procedure) of cervix. THUMB RECONSTRUCTION. left; in childhood PREVIOUS FUNCTIONAL STATUS/SOCIAL/FAMILY SUPPORTS:: Suzie resides in [facility] with her son Braulio. She is disabled and identifies her support system as her son and sometimes her Mom.Suzie is independent with self care and activities of daily living. Suzie has chronic pain though is independent in the community at baseline. CURRENT FUNCTIONAL STATUS:: Suzie was lying in bed when CM met with her. She stated that she does not feel well, but better than when she arrived. She stated that she feels that she is not always treated fairly, due to a 'diagnosis' on her chart, which states that she vomits due to marijuana. She reported that she does not smoke marijuana often anymore, and that it is not the cause of her vomitting currently. Per report, she has a history of cyclical vomiting but this appears to be more infectious. Suzie stated that she was able to have a shower earlier, which helped. CM will continue to follow. ADVANCE DIRECTIVES:: On file at [facility] agent is Brauliogm Rodriguez Has patient been provided with info about the portal/API?: Yes Did the patient sign up for the portal?: Yes (previously) CODE STATUS:: Full Code INSURANCE COVERAGE / FINANCIAL ISSUES:: [facility] CURRENT HOME/COMMUNITY SERVICES/EQUIPMENT:: No current services or equipment. PRIMARY CARE PHYSICIAN:: Patrica Lopez POTENTIAL DISCHARGE NEEDS:: Evaluations for further needs, follow up appointments PATIENT/FAMILY EDUCATION NEEDS:: Review discharge instructions regarding activity levels and medications, discussion of self care needs including ask me three. ANTICIPATED BARRIERS TO DISCHARGE:: None identified. TRANSPORTATION:: Via private car with son at time of discharge. PLAN:: Anticipate Suzie will return home when medically cleared. Her son will drive her home via private vehicle when ready. She will follow up with her PCP and discharge plan of care. CM will continue to follow.
[2020-05-15 23:54] VITALS: BP 142/80; PULSE 54; RESP 18; TEMP 37.2; O2SAT 97
[2020-05-16] MEDS: metroNIDAZOLE 500 MG/100 ML BAG 100 MG IVPB ×4 (01:53→19:31)
[2020-05-16] MEDS: VANCOMYCIN 1,000 MG in Normal Saline 250 ML 166.667 MG IV ×3 (03:00→21:48)
[2020-05-16] MEDS: Normal Saline Flush 10 ML SYR IVP ×7 (03:35→22:28)
[2020-05-16] MEDS: LORazepam 2 MG/ML VIAL IVP ×2 (03:36→09:56)
[2020-05-16] MEDS: Enoxaparin 80 MG/0.8 ML SYR 70 MG SC ×2 (05:15→16:52)
[2020-05-16] MEDS: CIPROFLOXACIN 400 MG/200 ML BAG 200 MG IVPB ×2 (05:17→17:04)
[2020-05-16] MEDS: HYDROmorphone 2 MG/ML VIAL 0.5 MG IVP ×3 (05:44→20:12)
[2020-05-16 07:12] LABS: Abs Immature Grans 0.02 10^3/uL (0.0-0.06); Absolute Basophil Count 0.03 10^3/uL (0.0-0.2); Absolute Eosinophil Count 0.08 10^3/uL (0.0-0.7); Absolute Lymphocyte Count 1.79 10^3/uL (1.2-3.4); Absolute Monocyte Count 0.45 10^3/uL (0.1-0.8); Basophils % 0.5; Eosinophils % 1.4; HCT 31.8 % (36.0-46.0); HGB 10.5 g/dL (11.2-15.7); Immature Grans % 0.3; Lymphocytes % 30.5; MCH 28.9 pg (27.0-33.0); MPV 11.7 fL (8.0-11.0); Monocytes % 7.7; Neutrophils % 59.6; Nucleated RBC 0 %; Platelet Count 177 10^3/uL (130-400); RBC 3.63 10^6/uL (3.93-5.22); RDW 14.6 % (11.7-14.6); RDW-SD 46.2 fL; WBC 5.87 10^3/uL (4.4-10.8)
[2020-05-16 07:16] VITALS: BP 131/79; PULSE 68; RESP 18; TEMP 36.4; O2SAT 96
[2020-05-16 07:24] LABS: Anion Gap 8.4 mmol/L (3-11); BUN 8 mg/dL (7-18); C-Reactive Protein 0.07 mg/dL (0.0-0.3); CO2 22.6 mmol/L (21.0-32.0); Calcium 7.4 mg/dL (8.5-10.1); Chloride 108 mmol/L (98-107); Glucose 114 mg/dL (74-106); Potassium 3.6 mmol/L (3.5-5.1); Sodium 139 mmol/L (136-145)
[2020-05-16] MEDS: POTASSIUM CHLORIDE/D5-0.9%NACL 1,000 ML 150 MEQ IV ×2 (07:32→17:20)
[2020-05-16 07:36] LABS: MCV 87.6 fL (80-95)
[2020-05-16 11:54] LABS: Vancomycin, Trough 16.5 ug/mL (10.0-20.0)
[2020-05-16 13:15] LABS: C Diff PCR Negative (Negative)
--- NOTE | 2020-05-16 14:19 | W.PM.PROGNOT ---
Date of Service Date of service: 05/16/20 Time of Service: 14:19 Assessment and Plan Assessment and plan (1) Colitis: Status: Acute Assessment and plan: clinical symptoms improving on cipro/flagyl day 2/7 tolerating advanced diet. has not produced stool for sample, passing flatus with no increasing abdominal pain or vomiting states she can not tolerate oral cipro and can only have IV form. midline requested. (2) Intractable nausea and vomiting: Status: Resolved Assessment and plan: improving, and tolerating advancing diet has history of cyclical vomiting history but this appears to be more infectious continue to monitor, provide antiemetic and fluids, (3) Perirectal abscess: Status: Acute Assessment and plan: has been followed by surgery, has been followed by CT scan and stable. On exam there has been no erythema, no fluctuance, and no pain. outpatient surgery recommended she get 5 days of IV antibiotics and feels at this point there is no surgical intervention needed. has history of MRSA, blood cultures negative on this visit, white count normalized. crp normal continue antibiotics. (4) Factor V Leiden mutation: Status: Chronic Assessment and plan: continue anticoagulation (5) ADHD (attention deficit hyperactivity disorder), inattentive type: Status: Chronic Assessment and plan: stable continue home medication (6) Hypothyroidism: Status: Chronic Assessment and plan: TSH 0.54 in mar 2020. continue synthroid Qualifiers: Hypothyroidism type: acquired Qualified Code(s): E03.9 - Hypothyroidism, unspecified (7) Panic disorder: Status: Chronic Assessment and plan: continue home medications discussed with Dr Conklin who is in agreement Subjective Subjective Patient reports: feels better, tolerating liquids well, tolerating a regular diet, nausea and afebrile Interval history since last seen: afebrile overnight. patient is tolerating regular diet but did refuse breakfast, stating, just not hungry she reports intermittent nausea but states this can be baseline for her. hemodynamically stable and denies any new c/o. Exam Const General: cooperative, comfortable, no acute distress and ill appearing (older than stated age) chronically Nutritional Appearance: overweight Orientation: alert, awake and oriented x3 HENMT Head: normal to inspection, normocephalic and atraumatic Mouth: oral mucosae normal Chest Chest: normal inspection of the chest Resp Effort & Inspection: normal respiratory effort Auscultation: clear to auscultation bilaterally Cardio Rate: regular rate Rhythm: regular rhythm GI Inspection: normal to inspection Palpation: soft and tender (generalized, improving) Auscultation: normal bowel sounds Skin General skin exam: no rashes or lesions noted Neuro General: patient alert Objective Last Vital Signs Temp 36.4 C L 05/16/20 07:16 Pulse 68 05/16/20 07:16 Resp 18 05/16/20 07:16 BP 131/79 05/16/20 07:16 Pulse Ox 96 05/16/20 07:16 Laboratory Results - last 24 hr 05/16/20 05/16/20 05/16/20 06:20 06:20 11:23 WBC 5.87 D RBC 3.63 L Hgb 10.5 L Hct 31.8 L MCV 87.6 D MCH 28.9 MCHC 33.0 RDW 14.6 Plt Count 177 MPV 11.7 H Immature Gran % 0.3 Neutrophils % 59.6 Lymphocytes % 30.5 Monocytes % 7.7 Eosinophils % 1.4 Basophils % 0.5 Nucleated RBC % 0 Absolute Neutrophils 3.50 Absolute Lymphocytes 1.79 Absolute Monocytes 0.45 Absolute Eosinophils 0.08 Absolute Basophils 0.03 Sodium 139 Potassium 3.6 Chloride 108 H Carbon Dioxide 22.6 Anion Gap 8.4 BUN 8 Creatinine 0.90 Estimated GFR/1.73 m2 >= 60.00 Glucose 114 H Calcium 7.4 L Magnesium 2.0 C-Reactive Protein 0.07 Vancomycin Trough 16.5
[2020-05-16 15:48] VITALS: BP 126/69; PULSE 66; RESP 18; TEMP 37; O2SAT 98
--- NOTE | 2020-05-16 16:22 | CMPROGNOTE_ITS ---
- If Service Date Differs Date of service: 05/16/20 Time of Service: 16:22 Care Management Progress Note S/O: Suzie was lying in bed when CM met with her. She stated that she feels better than she did earlier today, but still not great. She stated that per provider, she will likely need 7 days of IV abx. She reported that she has failed outpatient infusion in the past, and would prefer to remain at [facility] for the duration of her abx treatment. CM discussed SW[facility] with Suzie, which she was familiar with. XAVIER stated that unlike the past, SWB patients are currently not allowed to leave the building, due to Covid restrictions. Her RN was in the room during this conversation. She is on day 2 out of 7, and she remains acute at this time. CM will continue to follow. A: Suzie is a 40 year old female admitted to [facility] on 05/16/20 with Colitis. P: Anticipate Suzie will return home when medically cleared. Her son will drive her home via private vehicle when ready. She will follow up with her PCP and discharge plan of care. CM will continue to follow.
[2020-05-16] MEDS: LORazepam 2 MG/ML VIAL 0.5 MG IVP ×2 (17:30→22:28)
[2020-05-16] MEDS: Ketorolac 15 MG/ML VIAL IVP (19:30)
[2020-05-16 20:10] VITALS: BP 156/84; PULSE 60; RESP 18; TEMP 37.1; O2SAT 98
[2020-05-16] MEDS: ACETAMINOPHEN 1,000 MG/100 ML BTL 400 MG IVPB (21:47)
[2020-05-16] MEDS: Ondansetron 4 MG/2 ML VIAL IVP (21:47)
[2020-05-17] MEDS: Ketorolac 15 MG/ML VIAL IVP ×4 (01:51→20:20)
[2020-05-17] MEDS: metroNIDAZOLE 500 MG/100 ML BAG 100 MG IVPB ×4 (01:52→20:19)
[2020-05-17] MEDS: Normal Saline Flush 10 ML SYR IVP ×3 (01:52→20:19)
[2020-05-17] MEDS: POTASSIUM CHLORIDE/D5-0.9%NACL 1,000 ML 150 MEQ IV (01:56)
[2020-05-17 03:10] VITALS: BP 166/80; PULSE 54; RESP 19; TEMP 36.4; O2SAT 99
[2020-05-17] MEDS: HYDROmorphone 2 MG/ML VIAL 0.5 MG IVP ×3 (04:22→18:31)
[2020-05-17] MEDS: CIPROFLOXACIN 400 MG/200 ML BAG 200 MG IVPB ×2 (04:23→15:33)
[2020-05-17] MEDS: Enoxaparin 80 MG/0.8 ML SYR 70 MG SC ×2 (04:23→15:33)
[2020-05-17] MEDS: LORazepam 2 MG/ML VIAL 0.5 MG IVP ×3 (07:26→20:19)
[2020-05-17 07:34] VITALS: O2SAT 99
[2020-05-17 07:37] VITALS: BP 130/73; PULSE 52; RESP 17; TEMP 37.2; O2SAT 98
[2020-05-17] MEDS: VANCOMYCIN/WATER (PEG) 1 GM/200 ML BAG IVPB (08:43)
[2020-05-17] MEDS: Ondansetron 4 MG/2 ML VIAL IVP ×3 (08:43→20:20)
--- NOTE | 2020-05-17 09:53 | CMPROGNOTE_ITS ---
Care Management Progress Note S/O: Suzie required medication last evening due to increased abdominal pain. Current treatment plan includes 7 days of IV ABX, on day 3, Suzie remains acute at this time. Anticipate she may transition to SWB1 prior to discharge to complete IV ABX. CM will continue to follow. A: Suzie is a 40 year old female admitted to [facility] on 05/16/20 with Colitis. P: Anticipate Suzie will return home when medically cleared with no additional services anticipated. Her son will drive her home via private vehicle when ready. She will follow up with her PCP and discharge plan of care. CM will continue to follow.
[2020-05-17 10:45] LABS: Campylobacter PCR Negative (Negative); Salmonella PCR Negative (Negative); Shiga Toxin PCR Negative (Negative); Shigella/Enteroinvasive Ecoli Negative (Negative)
--- NOTE | 2020-05-17 11:55 | W.NUTRFU ---
Date of service: 05/17/20 Time of Service: 11:56 Nutritional Follow up NOTE: 40 year old female admitted with cyclic vomitting, C diff - with hypokalemia. Diet advanced to regular with excellent intake. BMI stable, indicating overweight status. Not at nutritional risk at this time. Will continue to follow. Time Spent in Nutritional Counseling and Treatment: 0
--- NOTE | 2020-05-17 13:28 | W.PM.PROGNOT ---
Date of Service Date of service: 05/17/20 Time of Service: 13:28 Assessment and Plan Assessment and plan (1) Colitis: Status: Acute Assessment and plan: reports worsening of symptoms despite improvement in lab and physical exam. continue cipro/flagyl day 3/7, discontinue vancomycin as blood cultures are negative. Tolerating advanced diet. Stool negative for cdiff midline placed. (2) Intractable nausea and vomiting: Status: Resolved Assessment and plan: continue antiemetics. has history of cyclical vomiting history but this appears to be more infectious continue to monitor, provide antiemetic and fluids (3) Perirectal abscess: Status: Acute Assessment and plan: has been followed by surgery, has been followed by CT scan and stable. On exam there has been no erythema, no fluctuance, and no pain. outpatient surgery recommended she get 5 days of IV antibiotics and feels at this point there is no surgical intervention needed. has history of MRSA, blood cultures negative on this visit, white count normalized. crp normal continue antibiotics. (4) Factor V Leiden mutation: Status: Chronic Assessment and plan: continue anticoagulation (5) ADHD (attention deficit hyperactivity disorder), inattentive type: Status: Chronic Assessment and plan: stable continue home medication (6) Hypothyroidism: Status: Chronic Assessment and plan: TSH 0.54 in mar 2020. continue synthroid Qualifiers: Hypothyroidism type: acquired Qualified Code(s): E03.9 - Hypothyroidism, unspecified (7) Panic disorder: Status: Chronic Assessment and plan: continue home medications discussed with Dr Conklin who is in agreement Subjective Subjective Patient reports: still having pain, tolerating liquids well, voiding w/o difficulty, bowel movement (negative for cdiff), nausea and afebrile; denies tolerating a regular diet and vomiting Interval history since last seen: reports overnight did not feel well. Exam Const General: cooperative, healthy appearing, comfortable, no acute distress and ill appearing (older than stated age) chronically Nutritional Appearance: overweight Orientation: alert, awake and oriented x3 HENMT Head: normal to inspection, normocephalic and atraumatic Mouth: oral mucosae normal Chest Chest: normal inspection of the chest Resp Effort & Inspection: normal respiratory effort Auscultation: clear to auscultation bilaterally Cardio Rate: regular rate Rhythm: regular rhythm GI Inspection: normal to inspection Palpation: soft and tender (generalized, improving) Auscultation: normal bowel sounds Skin General skin exam: no rashes or lesions noted Neuro General: patient alert Objective Last Vital Signs Temp 37.2 C 05/17/20 07:37 Pulse 52 L 05/17/20 07:37 Resp 17 05/17/20 07:37 BP 130/73 05/17/20 07:37 Pulse Ox 98 05/17/20 07:37 Laboratory Results - last 24 hr 05/16/20 05/16/20 05/17/20 10:31 10:31 17:00 Stool Campylobacter PCR Negative Stl C.difficile Tox PCR Negative Stool Salmonella PCR Negative Stool Shigella PCR Negative Vancomycin Trough Cancelled Shiga Toxin (PCR) Negative
[2020-05-17 17:42] VITALS: BP 137/70; PULSE 54; RESP 19; TEMP 37.3; O2SAT 98
[2020-05-17 23:16] VITALS: BP 151/87; PULSE 50; RESP 20; TEMP 36.8; O2SAT 97
[2020-05-18 02:27] VITALS: BP 147/88; PULSE 54; RESP 18; TEMP 36.9; O2SAT 98
[2020-05-18] MEDS: Normal Saline Flush 10 ML SYR IVP ×10 (02:28→21:57)
[2020-05-18] MEDS: Ketorolac 15 MG/ML VIAL IVP ×4 (02:28→20:50)
[2020-05-18] MEDS: Ondansetron 4 MG/2 ML VIAL IVP (02:29)
[2020-05-18] MEDS: LORazepam 2 MG/ML VIAL 0.5 MG IVP ×4 (02:29→20:49)
[2020-05-18] MEDS: HYDROmorphone 2 MG/ML VIAL 0.5 MG IVP ×3 (02:29→17:16)
[2020-05-18] MEDS: metroNIDAZOLE 500 MG/100 ML BAG 100 MG IVPB ×4 (02:30→19:31)
[2020-05-18] MEDS: Enoxaparin 80 MG/0.8 ML SYR 70 MG SC ×2 (04:04→17:01)
[2020-05-18] MEDS: CIPROFLOXACIN 400 MG/200 ML BAG 200 MG IVPB ×2 (04:04→17:27)
[2020-05-18 07:56] LABS: Abs Immature Grans 0.02 10^3/uL (0.0-0.06); Absolute Basophil Count 0.02 10^3/uL (0.0-0.2); Absolute Eosinophil Count 0.22 10^3/uL (0.0-0.7); Absolute Lymphocyte Count 1.41 10^3/uL (1.2-3.4); Absolute Monocyte Count 0.43 10^3/uL (0.1-0.8); Absolute Neutrophil Count 3.31 10^3/uL (1.2-6.7); Basophils % 0.4; Eosinophils % 4.1; HCT 34.8 % (36.0-46.0); HGB 11.9 g/dL (11.2-15.7); Immature Grans % 0.4; Lymphocytes % 26.1; MCH 29.2 pg (27.0-33.0); MCHC 34.2 % (32.0-36.0); MCV 85.3 fL (80-95); MPV 11.9 fL (8.0-11.0); Monocytes % 7.9; Neutrophils % 61.1; Nucleated RBC 0 %; Platelet Count 191 10^3/uL (130-400); RBC 4.08 10^6/uL (3.93-5.22); RDW 14.3 % (11.7-14.6); RDW-SD 44.2 fL; WBC 5.41 10^3/uL (4.4-10.8)
[2020-05-18 08:08] LABS: ALT 20 U/L (14-59); AST 14 U/L (15-37); Albumin 3.2 g/dL (3.4-5.0); Alkaline Phosphatase 40 U/L (46-116); Anion Gap 6.4 mmol/L (3-11); BUN 6 mg/dL (7-18); Bilirubin, Total 0.3 mg/dL (0.2-1.0); CO2 25.6 mmol/L (21.0-32.0); Calcium 8.4 mg/dL (8.5-10.1); Chloride 105 mmol/L (98-107); Glucose 104 mg/dL (74-106); Potassium 3.6 mmol/L (3.5-5.1); Sodium 137 mmol/L (136-145); Total Protein 5.6 g/dL (6.4-8.2)
[2020-05-18 08:12] VITALS: BP 121/76; PULSE 59; RESP 17; TEMP 35.4; O2SAT 96
--- NOTE | 2020-05-18 13:23 | W.PM.PROGNOT ---
Date of Service Date of service: 05/18/20 Time of Service: 13:23 Assessment and Plan Assessment and plan (1) Colitis: Start date: 05/18/20 Start time: 13:45 Status: Acute Assessment and plan: Symptoms the same, little improvement Continue analgesics, antiemetics (2) Perirectal abscess: Start date: 05/18/20 Start time: 14:24 Status: Chronic Assessment and plan: has been followed by surgery, has been followed by CT scan and stable. On exam there has been no erythema, no fluctuance, and no pain. outpatient surgery recommended she get 5 days of IV antibiotics and feels at this point there is no surgical intervention needed. has history of MRSA, blood cultures negative on this visit, white count normalized. crp normal continue antibiotics. (3) Factor V Leiden mutation: Start date: 05/18/20 Start time: 14:25 Status: Chronic Assessment and plan: continue anticoagulation (4) ADHD (attention deficit hyperactivity disorder), inattentive type: Start date: 05/18/20 Start time: 14:25 Status: Chronic Assessment and plan: stable continue home medication (5) Hypothyroidism: Start date: 05/18/20 Start time: 14:25 Status: Chronic Assessment and plan: TSH 0.54 in mar 2020. continue synthroid Qualifiers: Hypothyroidism type: acquired Qualified Code(s): E03.9 - Hypothyroidism, unspecified (6) Panic disorder: Start date: 05/18/20 Start time: 14:26 Status: Chronic Assessment and plan: continue home medications discussed with Dr Conklin who is in agreement Subjective Subjective Interval history since last seen: c/o pain to abd, with palpation, continue pain management and antibiotics, c/o vomiting overnight. No vomiting today. Denies CP, SOB Exam Const General: cooperative, healthy appearing, comfortable, no acute distress and ill appearing (older than stated age) chronically Nutritional Appearance: overweight Orientation: alert, awake and oriented x3 HENMT Head: normal to inspection, normocephalic and atraumatic Mouth: oral mucosae normal Chest Chest: normal inspection of the chest Resp Effort & Inspection: normal respiratory effort Auscultation: clear to auscultation bilaterally Cardio Rate: regular rate Rhythm: regular rhythm GI Inspection: normal to inspection Palpation: soft and tender (generalized, improving) Auscultation: normal bowel sounds Skin General skin exam: no rashes or lesions noted Neuro General: patient alert Objective Last Vital Signs Temp 35.4 C L 05/18/20 08:12 Pulse 59 L 05/18/20 08:12 Resp 17 05/18/20 08:12 BP 121/76 05/18/20 08:12 Pulse Ox 96 05/18/20 08:12 Laboratory Results - last 24 hr 05/18/20 05/18/20 07:00 07:00 WBC 5.41 RBC 4.08 Hgb 11.9 Hct 34.8 L MCV 85.3 MCH 29.2 MCHC 34.2 RDW 14.3 Plt Count 191 MPV 11.9 H Immature Gran % 0.4 Neutrophils % 61.1 Lymphocytes % 26.1 Monocytes % 7.9 Eosinophils % 4.1 Basophils % 0.4 Nucleated RBC % 0 Absolute Neutrophils 3.31 Absolute Lymphocytes 1.41 Absolute Monocytes 0.43 Absolute Eosinophils 0.22 Absolute Basophils 0.02 Sodium 137 Potassium 3.6 Chloride 105 Carbon Dioxide 25.6 Anion Gap 6.4 BUN 6 L Creatinine 1.0 Estimated GFR/1.73 m2 >= 60.00 Glucose 104 Calcium 8.4 L Total Bilirubin 0.3 AST 14 L ALT 20 Alkaline Phosphatase 40 L Total Protein 5.6 L Albumin 3.2 L
--- NOTE | 2020-05-18 14:45 | PHACLINREV_ITS ---
Pharmacy Admission Review - Admission Clinical Review (Last Reviewed 05/14/20 @ 20:34 by Ilan Joyner MD) Colitis (Acute) Vomiting (Acute) Hypokalemia (Acute) Cyclic vomiting syndrome (Acute) aripiprazole [From Abilify] Allergy (Severe, Verified 04/09/20 09:55) Rash, hives doxycycline Allergy (Severe, Verified 04/09/20 09:55) Anaphylaxsis levetiracetam [From Keppra] Allergy (Severe, Verified 04/09/20 09:55) RASH/HIVES sulfamethoxazole Allergy (Severe, Verified 04/09/20 09:55) Hives venom-honey bee Allergy (Severe, Verified 04/09/20 09:55) unknown Penicillins Allergy (Intermediate, Verified 04/09/20 09:55) Skin Rash chlorhexidine Allergy (Unknown, Verified 04/09/20 09:55) unknown Sulfa (Sulfonamide Antibiotics) Allergy (Verified 04/09/20 09:55) mold Adverse Reaction (Severe, Verified 04/09/20 09:55) Wheezing oxycodone [Oxycodone] Adverse Reaction (Severe, Verified 04/09/20 09:55) vomits paroxetine Adverse Reaction (Severe, Verified 04/09/20 09:55) Irritability and anger dicloxacillin [Dicloxacillin] Adverse Reaction (Mild, Verified 04/09/20 09:55) Nausea gabapentin Adverse Reaction (Mild, Verified 04/09/20 09:55) hives prednisone Adverse Reaction (Verified 04/09/20 09:55) Agitation trazodone Adverse Reaction (Verified 04/09/20 09:55) shortness of breath verapamil [Verapamil] Adverse Reaction (Verified 04/09/20 09:55) Worsening migraine nuts Allergy (Severe, Uncoded 04/09/20 09:55) Anaphylaxsis Height 5 ft 1.02 in Weight 70.307 kg - Renal Dosing Renal Dosing: BUN 6 mg/dL (7-18) L 05/18/20 07:00 Creatinine 1.0 mg/dL (0.55-1.02) 05/18/20 07:00 Medications needing adjustments: Reviewed - Anticoagulation Anticoagulation: Hgb 11.9 g/dL (11.2-15.7) 05/18/20 07:00 Hct 34.8 % (36.0-46.0) L 05/18/20 07:00 Plt Count 191 10^3/uL (130-400) 05/18/20 07:00 INR 1.5 (0.9-1.1) H 05/14/20 17:45 Creatinine 1.0 mg/dL (0.55-1.02) 05/18/20 07:00 DVT Prohphylaxis: N/A Medications: Enoxaparin Therapeutic Anticoagulation: Reviewed Medications: Enoxaparin - Opiate Usage Evaluate Pain Scale/Pains Meds: Reviewed Scheduled Bowel Reg ordered if on Opiates?: No (Last BM was on 05/16) - Relevant Labs Sodium 137 mmol/L (136-145) 05/18/20 07:00 Potassium 3.6 mmol/L (3.5-5.1) 05/18/20 07:00 Chloride 105 mmol/L (98-107) 05/18/20 07:00 Magnesium 2.0 mg/dL (1.8-2.4) 05/16/20 06:20 C-Reactive Protein 0.07 mg/dL (0.0-0.3) 05/16/20 06:20 Electrolytes, C-Reactive P, ESR: Reviewed - DM Control DM Control: Glucose 104 mg/dL (74-106) 05/18/20 07:00 Insulin Dosing: N/A - BP Control BP Control: Blood Pressure 121/76 If elevated: Reviewed - Qtc Review If Elevated: N/A - IV to PO Switch IV Medications: Reviewed - Home Meds Relevent Home Meds Not ordered & why?: acidophilus, albuterol, citracal, clona zepam, topical steroid crm, cyproheptadine, diphenhydramine, fexofenadine, flovent (pt refused), fluoxetine, hydrocodone (has dilaudid IV ordered), duoneb, levothyroxine, methylphenidate, sucralfate, sumatriptan, topamax (hasn't been refilled since October), warfarin (therapeutic lmwh ordered) -- anticipate resumption of home meds once patient is tolerating PO - Current meds Current Medication Order Review: Reviewed - Comments Comments/Follow Ups: Cipro/Flagyl day 4 for colitis/perirectal abscess... anticipate IV through day 5
[2020-05-18 15:47] VITALS: BP 136/85; PULSE 67; RESP 16; TEMP 36.8; O2SAT 99
--- NOTE | 2020-05-18 20:02 | PDOC.CMPRO ---
- If Service Date Differs Date of service: 05/18/20 Time of Service: 20:02 Care Management Progress Note S/O: Suzie was sitting up in bed when CM met with her. She stated that she is frustrated at her continuous pain. She reported that she has been struggling with health issues since she was 13 years old. She stated that she plans to remain at [facility] for the duration of her IV abx course, and is hoping to feel better prior to her discharge. CM will continue to follow. A: Suzie is a 40 year old female admitted to [facility] on 05/16/20 with Colitis. P: Anticipate Suzie will return home when medically cleared with no additional services anticipated. Her son will drive her home via private vehicle when ready. She will follow up with her PCP and discharge plan of care. CM will continue to follow.
[2020-05-18 23:56] VITALS: BP 132/78; PULSE 63; RESP 18; TEMP 37.6; O2SAT 97
[2020-05-19] MEDS: Normal Saline Flush 10 ML SYR IVP ×3 (00:30→05:24)
[2020-05-19] MEDS: HYDROmorphone 2 MG/ML VIAL 0.5 MG IVP ×2 (00:31→10:05)
[2020-05-19] MEDS: Ondansetron 4 MG/2 ML VIAL IVP ×3 (00:32→10:05)
[2020-05-19] MEDS: LORazepam 2 MG/ML VIAL 0.5 MG IVP (02:59)
[2020-05-19] MEDS: Ketorolac 15 MG/ML VIAL IVP (02:59)
[2020-05-19] MEDS: metroNIDAZOLE 500 MG/100 ML BAG 100 MG IVPB ×2 (03:30→10:06)
[2020-05-19] MEDS: CIPROFLOXACIN 400 MG/200 ML BAG 200 MG IVPB (05:12)
[2020-05-19] MEDS: Enoxaparin 80 MG/0.8 ML SYR 70 MG SC (05:12)
[2020-05-19 07:11] LABS: Abs Immature Grans 0.02 10^3/uL (0.0-0.06); Absolute Basophil Count 0.03 10^3/uL (0.0-0.2); Absolute Eosinophil Count 0.35 10^3/uL (0.0-0.7); Absolute Lymphocyte Count 1.29 10^3/uL (1.2-3.4); Absolute Monocyte Count 0.38 10^3/uL (0.1-0.8); Absolute Neutrophil Count 2.09 10^3/uL (1.2-6.7); Basophils % 0.7; Eosinophils % 8.4; HCT 33.1 % (36.0-46.0); HGB 11.2 g/dL (11.2-15.7); Immature Grans % 0.5; MCHC 33.8 % (32.0-36.0); MCV 85.8 fL (80-95); MPV 11.6 fL (8.0-11.0); Monocytes % 9.1; Neutrophils % 50.3; Nucleated RBC 0 %; Platelet Count 169 10^3/uL (130-400); RBC 3.86 10^6/uL (3.93-5.22); RDW 14.5 % (11.7-14.6); WBC 4.16 10^3/uL (4.4-10.8)
[2020-05-19 07:26] LABS: Anion Gap 5.7 mmol/L (3-11); BUN 5 mg/dL (7-18); CO2 26.3 mmol/L (21.0-32.0); CREATININE 1.1 mg/dL (0.55-1.02); Calcium 7.9 mg/dL (8.5-10.1); Chloride 106 mmol/L (98-107); Estimated GFR 54.74 (mL/min/1.73m2); Glucose 115 mg/dL (74-106); Potassium 3.4 mmol/L (3.5-5.1); Sodium 138 mmol/L (136-145)
[2020-05-19 07:50] VITALS: BP 138/78; PULSE 80; RESP 18; TEMP 36.8; O2SAT 98
[2020-05-19] MEDS: Potassium Chloride 20 MEQ TABCR 40 MEQ PO (10:05)
--- NOTE | 2020-05-19 11:13 | W.PM.DS.N ---
Date of service: 05/19/20 Time of Service: 11:14 DS: Diagnosis Discharge Diagnosis (1) Colitis: Start date: 05/19/20 Start time: 11:14 Status: Acute Asessment and Plan: Finished 5 day course of flagyl and cipro for mild colitis (2) Perirectal abscess: Start date: 05/19/20 Start time: 11:22 Status: Chronic Asessment and Plan: stable followed by surgery can be followed as an outpatient (3) Factor V Leiden mutation: Start date: 05/19/20 Start time: 11: Status: Chronic Asessment and Plan: continue coumadin (4) ADHD (attention deficit hyperactivity disorder), inattentive type: Start date: 05/19/20 Start time: 11:23 Status: Chronic Asessment and Plan: continue methylphenidate (5) Hypothyroidism: Start date: 05/19/20 Start time: :23 Status: Chronic Asessment and Plan: continue levothyroxine above case discussed with Dr. turner who is in agreement Discharge Plan Discharge Details Reason For Visit: VOMITING Admit Date/Time: 05/16/20 14:05 Admit Provider: Ilan Joyner Attending Provider: Ilan Joyner Primary Care Provider: Patrica Lopez [facility] Hospital Course: 40 female with h/o cyclic vomiting, generally ascribed to cannabis, comes in with one day of vomiting and abdominal pain (she indicates this as epigastric with burning radiation to chest and throat). In ER findings of note for leukocytosis (22K), hypokalemia (3.2), hypomagnesemia (1.5) and renal insufficiency (Creat. 1.3). CT abdomen shows mild diffuse colonic wall thickening, suggestive of possible colitis, though findings may be attributable to colonic contraction it is noted. Has received Ativan, Phenergan, Zofran and Benadryl, with little effect; also Fentanyl x one. Due to persistent vomiting she was admitted for further management. She received 5 days of cipro and flagyl, today she is feeling and better and ready to go home. She is being discharged home on antiemtics with a couple of pain pills. Home Meds and New Rx's Prescriptions: New Nucynta 50 mg tablet 50 mg PO Q6H PRNQty: 10 RF: 0 Continued topiramate [Topamax] 200 mg tablet 400 mg PO HS Qty: 180 RF: 4 metoclopramide HCl [Reglan] 5 mg tablet 5 mg PO HS Qty: 30 RF: 3 sucralfate 1 gram tablet 1 g PO AC & HS Qty: 120 RF: 2 Citracal Plus Bone Density 1 EACH tablet 1 ea PO BID RF: 0 cyproheptadine 4 MG tablet 4 mg PO HS Qty: 90 RF: 3 ipratropium-albuterol 3 ML solution for nebulization 3 ml Inhalation Q4H PRN MDD 6 times PRNQty: 1 RF: 0 albuterol sulfate 1.25 mg/3 mL solution for nebulization 1.25 mg Inhalation Q6H PRN (Reason: shortness of breath or wheezing) Qty: 75 RF: 3 acidophilus-pectin, citrus 25 million cell -100 mg tablet 2 tab PO TID Qty: 90 RF: 4 alcohol swabs [Alcohol Wipes] Pads, Medicated See Rx Instructions TP .COMPLEX Qty: 300 RF: 4 triamcinolone acetonide 0.1 % cream 1 applic Topical BID PRN (Reason: eczema) Qty: 60 RF: 1 methylphenidate HCl 20 mg tablet 20 mg PO TID MDD 60 mg Qty: 84 RF: 0 fexofenadine 180 mg tablet 180 mg PO DAILY Qty: 90 RF: 4 warfarin 5 mg tablet 5 mg PO PER PROTOCOL Qty: 90 RF: 4 epinephrine [EpiPen 2-Nino] 0.3 mg/0.3 mL auto-injector 0.3 mg IM ONCE Qty: 1 RF: 1 Flovent HFA 220 mcg/actuation HFA aerosol inhaler 2 inh Inhalation BID Qty: 3 RF: 4 levothyroxine 125 mcg tablet 125 mcg PO .AM Qty: 90 RF: 0 omeprazole 40 mg capsule,delayed release(DR/EC) 40 mg PO DAILY Qty: 90 RF: 4 clotrimazole-betamethasone 1-0.05 % cream 1 applic Topical BID PRN (Reason: rash) Qty: 45 RF: 1 albuterol sulfate [ProAir HFA] 90 mcg/actuation HFA aerosol inhaler 2 puff Inhalation Q6H PRN MDD 6 puffs Qty: 3 RF: 4 ondansetron HCl 8 mg tablet 8 mg PO BID PRN (Reason: nausea and vomiting) Qty: 20 RF: 0 sumatriptan succinate 6 mg/0.5 mL pen injector 6 mg subcut ONCE MDD 12mg PRN (Reason: migraine headache) Qty: 90 RF: 1 fluoxetine 10 mg capsule 10 mg PO DAILY RF: 0 clonazepam 1 mg tablet 1 mg PO TID PRN (Reason: anxiety) Qty: 90 RF: 0 hydrocodone-acetaminophen 5-325 mg tablet 1 tab PO BID MDD 2 tabs PRN (Reason: pain) Qty: 60 RF: 0 Narcan 4 MG spray,non-aerosol 4 mg NS DAILY PRN PRNQty: 2 RF: 0 diphenhydramine HCl [Benadryl Allergy] 25 mg tablet 100 mg PO HS RF: 0 diphenhydramine HCl 25 mg Capsule 25 mg PO Q4H PRN PRNQty: 20 RF: 0 lorazepam 2 mg/mL concentrate 1 mg PO Q6H PRNQty: 30 RF: 0 No Action (DME) Space Chamber Plus 1 EACH spacer 1 ea Miscellaneous Q4H PRN Qty: 1 RF: 0 Discharge Instructions Equipment/Supplies:: Blood Glucose Monitor Diet:: As Tolerated DS: Summary Time Spent with Patient providing and/or coordinating discharge services: Greater than 30 minutes Status at Discharge Functional status at discharge: independent ambulation Overall status at discharge: patient is back to baseline Mental Status: mental status grossly normal Speech and Movement: speech and movement normal Mood: congruent mood Affect: normal affect Exam Const General: cooperative, healthy appearing, comfortable, no acute distress and ill appearing (older than stated age) chronically Nutritional Appearance: overweight Orientation: alert, awake and oriented x3 HENMT Head: normal to inspection, normocephalic and atraumatic Mouth: oral mucosae normal Chest Chest: normal inspection of the chest Resp Effort & Inspection: normal respiratory effort Auscultation: clear to auscultation bilaterally Cardio Rate: regular rate Rhythm: regular rhythm GI Inspection: normal to inspection Palpation: soft and no hepatosplenomegaly Auscultation: normal bowel sounds Skin General skin exam: no rashes or lesions noted Neuro General: patient alert Psych Mental Status: mental status grossly normal Speech and Movement: speech and movement normal Mood: congruent mood Affect: normal affect DS: Data Vitals/I&O Vitals and I&O: Vital Signs Temperature 36.8 C 05/19/20 07:50 Temperature Source Tympanic 05/19/20 07:50 Pulse 80 05/19/20 07:50 Pulse Rhythm Regular 05/19/20 00:33 Pulse 74 05/14/20 21:30 Respiratory Rate 18 05/19/20 07:50 Respiratory Effort 05/19/20 00:33 Respiratory Depth Normal 05/19/20 00:33 Respiratory Pattern Normal 05/19/20 00:33 Blood Pressure 138/78 05/19/20 07:50 Blood Pressure Mean 107 05/14/20 21:01 Blood Pressure Position Sitting 05/14/20 17:35 Pulse Oximetry 98 05/19/20 07:50 Oxygen Delivery Method Room Air 05/19/20 07:50 Oxygen Flow Rate 0 05/19/20 07:50 Pain Level 8 05/19/20 10:05 Intake & Output 05/18/20 05/18/20 05/19/20 11:59 23:59 11:59 Intake Total 1171 / 2193 1022 / 2193 300 / 300 Balance 1171 / 2193 1022 / 2193 300 / 300 Intake: IV 491 / 1033 542 / 1033 300 / 300 Oral 680 / 1160 480 / 1160 Other: Urine Color Yellow Urine Appearance Clear Urine Odor Normal Comment pt voids independently VOID X 2 NOTED RN did not assess urine Voiding Methods Toilet Toilet Toilet Data Completed and Pending Completed studies during hospitalization [Text1]: Exam(s) a CT:CT chest wo EXAM: CT CHEST WO CLINICAL HISTORY: fever, epigastric pain radiating to chest and neck TECHNIQUE: Imaging Protocol: Axial computed tomography images with coronal and sagittal reformatted images were created and reviewed CONTRAST MATERIAL: Noncontrast COMPARISON: CR CHEST 2 VIEWS PA,LAT from 11/17/2016 FINDINGS: Mildly limited exam due to respiratory motion. Mediastinum and Meghan: No dominant adenopathy or fluid collection. Pulmonary parenchyma: No consolidation or dominant measurable mass. No architectural distortion. Pleura: No effusion or pneumothorax. Heart: The heart is not dilated. No coronary artery calcifications are seen. Aorta: Thoracic aorta non-dilated. Upper abdomen: Unremarkable. Lymph nodes: Within normal limits. Bones: Minimal degenerative disc changes in the spine. Soft tissues: Unremarkable. IMPRESSION: No acute abnormality. Labs on day of discharge: Labs from last 24 hours 05/19/20 05/19/20 06:25 06:25 WBC 4.16 L RBC 3.86 L Hgb 11.2 Hct 33.1 L MCV 85.8 MCH 29.0 MCHC 33.8 RDW 14.5 Plt Count 169 MPV 11.6 H Immature Gran % 0.5 Neutrophils % 50.3 Lymphocytes % 31.0 Monocytes % 9.1 Eosinophils % 8.4 Basophils % 0.7 Nucleated RBC % 0 Absolute Neutrophils 2.09 Absolute Lymphocytes 1.29 Absolute Monocytes 0.38 Absolute Eosinophils 0.35 Absolute Basophils 0.03 Sodium 138 Potassium 3.4 L Chloride 106 Carbon Dioxide 26.3 Anion Gap 5.7 BUN 5 L Creatinine 1.1 H Estimated GFR/1.73 m2 54.74 Glucose 115 H Calcium 7.9 L Preliminary micro results at discharge 05/15/20 02:55 Blood Culture - Preliminary Blood NO GROWTH 96 HOURS 05/15/20 02:50 Blood Culture - Preliminary Blood NO GROWTH 96 HOURS [facility] Medical History ADHD (attention deficit hyperactivity disorder), 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) Asthma (11/08/12) B12 deficiency Candidiasis Cannabis abuse with cannabis-induced disorder Cellulitis of left leg Chronic anticoagulation Chronic anticoagulation On coumadin Chronic back pain greater than 3 months duration (12/29/14) Cyst of fallopian tube Depression Factor V Leiden mutation GERD (gastroesophageal reflux disease) Hematuria History of DVT (deep vein thrombosis) Hypothyroidism Intractable vomiting with nausea Left buttock abscess Left lower quadrant pain (01/27/12) Migraine headache Nephrolithiasis Orbital cellulitis on left Panic disorder (03/21/16) Preseptal cellulitis of left eye Recurrent deep vein thrombosis (DVT) Right lower quadrant abdominal pain inflamed/ruptured fallopian tube on the right Thrombosis of arteries of lower extremity Vaginal candidiasis Surgical History Abdominal hysterectomy (~2009) 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) Arthroplasty of knee (~1999) left Bilateral salpingectomy with oophorectomy (~2008) Cervical Conization/LEEP LEEP 2003 [facility] BX 2003 Cholecystectomy S/P appendectomy (12/24/17) Dr Veliz - Lap appy and lap excision of R fallopian tube remnant Status post cholecystectomy Status post LEEP (loop electrosurgical excision procedure) of cervix THUMB RECONSTRUCTION left; in childhood Social History Smoking/Tobacco Use Status: Never Smoking risk assessment performed?: Yes Alcohol Intake: current Alcohol Intake frequency: 0-2 drinks per day Drug use: Daily Substance use type: marijuana Current gender identity: female Do you feel safe at home: Yes Do you feel safe in your relationship?: Yes Additional Social history: Patient is and with one child. She denies any smoking or significant alcohol use, but admits to regular marijuana use.
--- NOTE | 2020-05-19 18:00 | PDOC.CMDIS ---
- If Service Date Differs Date of service: 05/19/20 Time of Service: 18:00 LACE Index Scoring Tool - Questions: Length of Stay (in days): 4 - 6 Acuity (Admit via E.D.?): Yes E.D. Visits: 7 - Answers: Total Score: 11 Risk of Readmission: High Risk Care Management Discharge Reason for Hospitalization: Vomiting Discharge Plan: Suzie will return home today with no new services. She will be driven home via private vehicle by family. She will follow up with her PCP and discharge plan of care. She is happy to be going home. Patient/Family Education Needs: Review discharge instructions regarding activity levels and medications, discussion of self care needs including ask me three.
== END 2020-05-19 13:28 | disposition home or self-care (01) | DRG 392 ==
LOC: ER 20:58 → MS 21:38
PROVIDERS: Internal Medicine; Nurse Practitioner Acute Care; Nurse Practitioner Family; Admitting Provider General Practice; Emergency Provider Physician Assistant; PCP Family Medicine; Visit Provider General Practice
DX: K52.9 Noninfective gastroenteritis and colitis, unspecified (principal); D68.51 Activated protein C resistance; K61.1 Rectal abscess; E87.6 Hypokalemia; E83.42 Hypomagnesemia; N28.9 Disorder of kidney and ureter, unspecified; F90.9 Attention-deficit hyperactivity disorder, unspecified type; J45.909 Unspecified asthma, uncomplicated; D53.8 Other specified nutritional anemias; Z79.01 Long term (current) use of anticoagulants; G89.29 Other chronic pain; F32.9 Major depressive disorder, single episode, unspecified; K21.9 Gastro-esophageal reflux disease without esophagitis; Z86.718 Personal history of other venous thrombosis and embolism; E03.9 Hypothyroidism, unspecified; G43.909 Migraine, unspecified, not intractable, without status migrainosus; F41.0 Panic disorder [episodic paroxysmal anxiety]
CPT/HCPCS: 36410; 36415; 71250; 80048; 80053; 80307; 83690; 84145; 85027; 87040; 87493; 87505; 93005; 96361; 96365; 96375; 96376; 99222; 99233; 99239; 99285; U0003; 74177; 80202; 81003; 81015; 83735; 84702; 85025; 85610; 86140; 93010; 99219; 99226; G0378; J0131; J0744; J0780; J1200; J1650; J1885; J2060; J2405; J3010; J3475; J3480; J3490

== ENCOUNTER 2020-07-13 13:32 | Inpatient (IN) | payer MEDICARE, MEDICAID, SELFPAY ==
[2020-07-13] VITALS (9 sets, daily range): BP systolic 132–196; BP diastolic 67–102; PULSE 67–85; RESP 16–20; TEMP 36.7–38.7; O2SAT 97–100
--- NOTE | 2020-07-13 14:33 | ED.GENADUL_ITS ---
Discharge Plan Disposition Patient Disposition: [facility] INPATIENT Condition: Serious Discharge Details Clinical Impression: Intractable nausea and vomiting Admit Date/Time: 07/15/20 09:55 Admit Provider: Selvin Mendoza Attending Provider: Selvin Mendoza Primary Care Provider: Patrica Lopez ED Provider: Selvin Sandhu Discharge Data Discharge Date/Time-TO BE ENTERED AT DEPARTURE: 07/13/20 18:30 Medical Decision Making <TYRON Casanova - Last Filed: 07/13/20 18:52> 40-year-old female presents for nausea, vomiting that began around 2 AM. She states that it feels very similar to previous. She is actively dry heaving her abdomen is soft, benign, nonsurgical. Vital signs unremarkable. Will obtain IV access, give IV fluids, and IV Reglan. She is requesting p.o. fluids, at this time we will hold off given her active vomiting and dry heaving. She is also requesting pain medication however she appears to be in no acute distress IV narcotic medication is indicated. Differential includes but not excluded to cyclic vomiting syndrome, gastroenteritis, cannabis induced hyperemesis, etc. Patient had abdominal hysterectomy, cholecystectomy, appendectomy. Patient reports no improvement with Reglan, will get IV Phenergan. Laboratory values reveal nonspecific leukocytosis of 17.6 INR subtherapeutic at 1.7 creatinine 1.2 with a GFR of 49.51 electrolytes are unremarkable, LFTs unremarkable, lipase 89. Urinalysis trace blood, negative leuk esterase or nitrate. Urine tox pending. Patient has had leukocytosis with similar presentation. Clinically she appears nontoxic, nonsurgical abdominal examination. Vomiting since 2 AM certainly can cause nonspecific leukocytosis. Do not feel as though emergent CT imaging required. Upon reevaluation patient continues to dry heave, no improvement with Phenergan. She is reporting increased pain, and believes given her intractable vomiting, dry heaving persisted for hours, giving 0.5 mg IV Dilaudid. Will also apply capsaicin cream Case discussed with Dr. Hernandez. He personally evaluated the patient, please see his note. He recommends obtaining chest x-ray given her persistent vomiting and epigastric discomfort. Patient observed in the ER for nearly 4 hours. She is not improving and reports that she feels too ill to go home. At this point I believe speaking with the hospitalist team for admission is reasonable. Case discussed with Dr. Mendoza who is agreeable to admission, I will place holding orders. Covid test ordered and pending. 1801 patient continues to vomit. She took Zofran. I have given Reglan and Phenergan. Will trial Compazine, 10 IV. I received a phone call. 1814, lactate of 4.6. Patient has already received 2 L IV fluid. Will obtain CT imaging of the abdomen pelvis with contrast. Chest x-ray read by radiology as no acute findings. Dr. Mendoza was made aware of the 4.[address] imaging of the abdomen and pelvis pending. Medical Records Medical records reviewed: Yes I reviewed the patient's medical records. Lab Data Lab results reviewed: Yes I reviewed the patient's lab results. Lab results narrative: Laboratory Tests Range/Units 07/13/20 07/13/20 07/13/20 14:30 14:30 14:30 WBC (4.4-10.8) 10^3/uL 17.66 H RBC (3.93-5.22) 10^6/uL 4.91 Hgb (11.2-15.7) g/dL 14.1 Hct (36.0-46.0) % 42.8 MCV (80-95) fL 87.2 MCH (27.0-33.0) pg 28.7 MCHC (32.0-36.0) % 32.9 RDW (11.7-14.6) % 13.9 Plt Count (130-400) 10^3/uL 327 MPV (8.0-11.0) fL 11.0 Immature Gran % 0.3 Neutrophils % 89.6 Lymphocytes % 5.2 Monocytes % 4.5 Eosinophils % 0.1 Basophils % 0.3 Nucleated RBC % % 0 Absolute Neutrophils (1.2-6.7) 10^3/uL 15.82 H Absolute Lymphocytes (1.2-3.4) 10^3/uL 0.92 L Absolute Monocytes (0.1-0.8) 10^3/uL 0.79 Absolute Eosinophils (0.0-0.7) 10^3/uL 0.02 Absolute Basophils (0.0-0.2) 10^3/uL 0.05 PT (9.3-11.0) sec 17.1 H INR (0.9-1.1) 1.7 H APTT (21.0-27.5) sec 23.1 Sodium (136-145) mmol/L 142 Potassium (3.5-5.1) mmol/L 3.6 Chloride (98-107) mmol/L 104 Carbon Dioxide (21.0-32.0) mmol/L 23.1 Anion Gap (3-11) mmol/L 14.9 H BUN (7-18) mg/dL 9 Creatinine (0.55-1.02) mg/dL 1.2 H Estimated GFR/1.73 m2 (mL/min/1.73m2) 49.51 Glucose (74-106) mg/dL 148 H Calcium (8.5-10.1) mg/dL 9.2 Total Bilirubin (0.2-1.0) mg/dL 0.3 AST (15-37) U/L 25 ALT (14-59) U/L 45 Alkaline Phosphatase (46-116) U/L 56 Total Protein (6.4-8.2) g/dL 7.7 Albumin (3.4-5.0) g/dL 4.3 Lipase (73-393) U/L 89 Urine Color (Yellow) Urine Clarity (Clear) Urine pH (5-8) Ur Specific [place] (1.005-1.025) Urine Protein (Negative) mg/dL Urine Ketones (Negative) mg/dL Urine Blood (Negative) Urine Nitrite (Negative) Urine Bilirubin (Negative) Urine Urobilinogen (Up TO 0.2) EU/dL Ur Leukocyte Esterase (Negative) Urine RBC (0-2) HPF Urine WBC (0-5) HPF Ur Epithelial Cells (Negative) HPF Urine Crystals (Negative) HPF Urine Bacteria (Negative) HPF Urine Casts (Negative) LPF Urine Mucus (Negative) Urine Other (Negative) Ur Culture Indicated? Urine Glucose (Negative) mg/dL COVID-19 Source Range/Units 07/13/20 07/13/20 15:16 17:24 WBC (4.4-10.8) 10^3/uL RBC (3.93-5.22) 10^6/uL Hgb (11.2-15.7) g/dL Hct (36.0-46.0) % MCV (80-95) fL MCH (27.0-33.0) pg MCHC (32.0-36.0) % RDW (11.7-14.6) % Plt Count (130-400) 10^3/uL MPV (8.0-11.0) fL Immature Gran % Neutrophils % Lymphocytes % Monocytes % Eosinophils % Basophils % Nucleated RBC % % Absolute Neutrophils (1.2-6.7) 10^3/uL Absolute Lymphocytes (1.2-3.4) 10^3/uL Absolute Monocytes (0.1-0.8) 10^3/uL Absolute Eosinophils (0.0-0.7) 10^3/uL Absolute Basophils (0.0-0.2) 10^3/uL PT (9.3-11.0) sec INR (0.9-1.1) APTT (21.0-27.5) sec Sodium (136-145) mmol/L Potassium (3.5-5.1) mmol/L Chloride (98-107) mmol/L Carbon Dioxide (21.0-32.0) mmol/L Anion Gap (3-11) mmol/L BUN (7-18) mg/dL Creatinine (0.55-1.02) mg/dL Estimated GFR/1.73 m2 (mL/min/1.73m2) Glucose (74-106) mg/dL Calcium (8.5-10.1) mg/dL Total Bilirubin (0.2-1.0) mg/dL AST (15-37) U/L ALT (14-59) U/L Alkaline Phosphatase (46-116) U/L Total Protein (6.4-8.2) g/dL Albumin (3.4-5.0) g/dL Lipase (73-393) U/L Urine Color (Yellow) Yellow Urine Clarity (Clear) Clear Urine pH (5-8) >= 9.0 H Ur Specific [place] (1.005-1.025) 1.020 Urine Protein (Negative) mg/dL Trace H Urine Ketones (Negative) mg/dL Negative Urine Blood (Negative) Trace-intact H Urine Nitrite (Negative) Negative Urine Bilirubin (Negative) Negative Urine Urobilinogen (Up TO 0.2) EU/dL 0.2 Ur Leukocyte Esterase (Negative) Negative Urine RBC (0-2) HPF 0-2 Urine WBC (0-5) HPF Negative Ur Epithelial Cells (Negative) HPF Many Urine Crystals (Negative) HPF Negative Urine Bacteria (Negative) HPF Negative Urine Casts (Negative) LPF Negative Urine Mucus (Negative) Negative Urine Other (Negative) Negative Ur Culture Indicated? No/sq. contamination Urine Glucose (Negative) mg/dL 100 COVID-19 Source Nasal/nares <Sunny Hernandez MD - Last Filed: 07/27/20 17:49> Patient seen, examined, and discussed with TYRON Sandhu. I agree with treatment plan as discussed/documented. HPI <TYRON Casanova - Last Filed: 07/13/20 18:52> General Mode of arrival: ambulatory . Date/Time Provider Initiated Documentation: 07/13/20 13:41 . Limitations to Documentation: no limitations . Information obtained by: patient . HPI Narrative: 40, past medical history of DVT-PE, chronic anticoagulation, cyclic vomiting syndrome, migraines, hypothyroidism, asthma, ADHD, factor V Leiden mutation, presenting to the ER with nausea and vomiting that began abruptly today around 2 AM. She denies recent sick contact, desperate exposure or travel. She took her Zofran at home without relief of her symptoms. She states that she gets this fairly frequently, has been admitted before, is in the process of being established with a GI specialist for endoscopy and further evaluation of her ongoing symptoms. Patient reports initially that she had no pain but after continuation of dry heaving and vomiting developed epigastric discomfort. She reports loose stool but denies black tarry stools or bright red blood in her stools. She denies fever, chest pain, shortness of breath, back pain, dysuria, numbness, tingling, weakness. She reports that her pain in her abdomen is mild however after vomiting it gets worse. Related Data Home Medications Medication Instructions Recorded Confirmed Citracal Plus Bone Density 1 ea PO BID tab-cap 11/09/12 07/13/20 Space Chamber Plus #1 spacer 05/01/14 04/09/20 cyproheptadine 4 mg PO HS #90 tab-cap 06/04/16 07/13/20 Narcan 4 mg NS DAILY PRN PRN #2 spray 12/08/16 07/13/20 ipratropium-albuterol 3 ml INHALATION Q4H PRN PRN #1 box 01/23/17 07/13/20 MDD 6 times albuterol sulfate 1.25 mg/3 mL 1.25 mg INHALATION Q6H PRN #75 ml 01/12/19 07/13/20 solution for nebulization acidophilus 25 million 2 tab PO TID #90 tab 05/29/19 07/13/20 cell-pectin, citrus 100 mg tablet alcohol swabs See Rx Instructions TP .COMPLEX 07/11/19 07/13/20 #300 each triamcinolone acetonide 0.1 % 1 applic TOPICAL BID PRN #60 gm 09/05/19 07/13/20 topical cream methylphenidate HCl 20 mg tablet 20 mg PO TID #84 tab-cap MDD 60 mg 10/20/19 07/13/20 fexofenadine 180 mg tablet 180 mg PO DAILY #90 tab-cap 11/01/19 07/13/20 Topamax 200 mg tablet 400 mg PO HS #180 tab NS 11/11/19 07/13/20 diphenhydramine HCl [Benadryl 100 mg PO HS 12/13/19 07/13/20 Allergy] diphenhydramine HCl 25 mg PO Q4H PRN PRN #20 cap 12/15/19 07/13/20 lorazepam 1 mg PO Q6H PRN #30 ml 12/15/19 07/13/20 metoclopramide HCl 5 mg tablet 5 mg PO HS #30 tab 12/30/19 07/13/20 sucralfate 1 gram tablet 1 g PO AC & HS #120 tab 12/30/19 07/13/20 warfarin 5 mg tablet 5 mg PO PER PROTOCOL #90 tab 02/09/20 07/13/20 clotrimazole-betamethasone 1 1 applic TOPICAL BID PRN #45 gm 02/22/20 07/13/20 %-0.05 % topical cream epinephrine 0.3 mg/0.3 mL 0.3 mg IM ONCE #1 ea 02/22/20 07/13/20 injection, auto-injector fluticasone propionate 220 2 inh INHALATION BID #3 inhaler 02/22/20 07/13/20 mcg/actuation HFA aerosol inhaler levothyroxine 125 mcg tablet 125 mcg PO .AM #90 tab 02/22/20 07/13/20 omeprazole 40 mg capsule,delayed 40 mg PO DAILY #90 cap 02/22/20 07/13/20 release albuterol sulfate 90 mcg/actuation 2 puff INHALATION Q6H PRN #3 03/07/20 07/13/20 aerosol inhaler inhaler MDD 6 puffs ondansetron HCl 8 mg tablet 8 mg PO BID PRN #20 tab 03/07/20 07/13/20 sumatriptan succinate 6 mg/0.5 mL 6 mg SUBCUT ONCE PRN #90 syrg MDD 03/07/20 07/13/20 subcutaneous pen injector 12mg fluoxetine 10 mg capsule 10 mg PO DAILY 03/19/20 07/13/20 clonazepam 1 mg tablet 1 mg PO TID PRN #90 tab 03/20/20 07/13/20 hydrocodone 5 mg-acetaminophen 325 1 tab PO BID PRN #60 tab MDD 2 tabs 03/20/20 07/13/20 mg tablet tapentadol [Nucynta] 50 mg PO Q6H PRN #10 tab 05/19/20 07/13/20 Previous Rx's Medication Instructions Recorded Space Chamber Plus #1 spacer 05/01/14 Narcan 4 mg NS DAILY PRN PRN #2 spray 12/08/16 albuterol sulfate 1.25 mg/3 mL 1.25 mg INHALATION Q6H PRN #75 ml 01/12/19 solution for nebulization acidophilus 25 million 2 tab PO TID #90 tab 05/29/19 cell-pectin, citrus 100 mg tablet alcohol swabs See Rx Instructions TP .COMPLEX 07/11/19 #300 each triamcinolone acetonide 0.1 % 1 applic TOPICAL BID PRN #60 gm 09/05/19 topical cream methylphenidate HCl 20 mg tablet 20 mg PO TID #84 tab-cap MDD 60 mg 10/20/19 fexofenadine 180 mg tablet 180 mg PO DAILY #90 tab-cap 11/01/19 Topamax 200 mg tablet 400 mg PO HS #180 tab NS 11/11/19 diphenhydramine HCl 25 mg PO Q4H PRN PRN #20 cap 12/15/19 lorazepam 1 mg PO Q6H PRN #30 ml 12/15/19 metoclopramide HCl 5 mg tablet 5 mg PO HS #30 tab 12/30/19 sucralfate 1 gram tablet 1 g PO AC & HS #120 tab 12/30/19 warfarin 5 mg tablet 5 mg PO PER PROTOCOL #90 tab 02/09/20 clotrimazole-betamethasone 1 1 applic TOPICAL BID PRN #45 gm 02/22/20 %-0.05 % topical cream epinephrine 0.3 mg/0.3 mL 0.3 mg IM ONCE #1 ea 02/22/20 injection, auto-injector fluticasone propionate 220 2 inh INHALATION BID #3 inhaler 02/22/20 mcg/actuation HFA aerosol inhaler levothyroxine 125 mcg tablet 125 mcg PO .AM #90 tab 02/22/20 omeprazole 40 mg capsule,delayed 40 mg PO DAILY #90 cap 02/22/20 release albuterol sulfate 90 mcg/actuation 2 puff INHALATION Q6H PRN #3 03/07/20 aerosol inhaler inhaler MDD 6 puffs ondansetron HCl 8 mg tablet 8 mg PO BID PRN #20 tab 03/07/20 sumatriptan succinate 6 mg/0.5 mL 6 mg SUBCUT ONCE PRN #90 syrg MDD 03/07/20 subcutaneous pen injector 12mg clonazepam 1 mg tablet 1 mg PO TID PRN #90 tab 03/20/20 hydrocodone 5 mg-acetaminophen 325 1 tab PO BID PRN #60 tab MDD 2 tabs 03/20/20 mg tablet tapentadol [Nucynta] 50 mg PO Q6H PRN #10 tab 05/19/20 Allergies Allergy/AdvReac Type Severity Reaction Status Date / Time aripiprazole [From Abilify] Allergy Severe Rash, hives Verified 07/13/20 13:51 doxycycline Allergy Severe Anaphylaxsi Verified 07/13/20 13:51 s levetiracetam [From Keppra] Allergy Severe RASH/HIVES Verified 07/13/20 13:51 sulfamethoxazole Allergy Severe Hives Verified 07/13/20 13:51 venom-honey bee Allergy Severe unknown Verified 07/13/20 13:51 Penicillins Allergy Intermediate Skin Rash Verified 07/13/20 13:51 chlorhexidine Allergy Unknown unknown Verified 07/13/20 13:51 Sulfa (Sulfonamide Allergy Verified 07/13/20 13:51 Antibiotics) mold AdvReac Severe Wheezing Verified 07/13/20 13:51 oxycodone [Oxycodone] AdvReac Severe vomits Verified 07/13/20 13:51 paroxetine AdvReac Severe Irritability Verified 07/13/20 13:51 and anger dicloxacillin [Dicloxacillin] AdvReac Mild Nausea Verified 07/13/20 13:51 gabapentin AdvReac Mild hives Verified 07/13/20 13:51 prednisone AdvReac Agitation Verified 07/13/20 13:51 trazodone AdvReac shortness Verified 07/13/20 13:51 of breath verapamil [Verapamil] AdvReac Worsening Verified 07/13/20 13:51 migraine nuts Allergy Severe Anaphylaxsi Uncoded 07/13/20 13:51 s General Stated Complaint: Nausea/Vomit/Diar RYNE: 3 Review of Systems <TYRON Casanova - Last Filed: 07/13/20 18:52> Constitutional Constitutional: Denies fatigue and Denies fever(s) ENT Ears, Nose, Mouth, and Throat: Reports sore throat (Secondary to vomiting) Cardiovascular Cardiovascular: Denies chest pain and Denies dyspnea Respiratory Respiratory: Denies dyspnea Gastrointestinal Gastrointestinal: Reports abdominal pain, Denies coffee ground emesis, Reports nausea and Reports vomiting Genitourinary Genitourinary: Denies dysuria Musculoskeletal Musculoskeletal: Denies back pain Integumentary/Breasts Skin/Breast: Denies rash Neurologic Neurologic: Reports weakness (Generalized) Endocrine Endocrine: Denies fatigue Hematologic/Lymphatic Hematologic/Lymphatic: Reports easy bleeding and Reports easy bruising PFSH <TYRON Casanova - Last Filed: 07/13/20 18:52> Medical History Acute deep vein thrombosis (DVT) of left lower extremity ADHD (attention deficit hyperactivity disorder), 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) Asthma (11/08/12) B12 deficiency Candidiasis Cannabis abuse with cannabis-induced disorder Cellulitis of left leg Chronic anticoagulation Chronic anticoagulation On coumadin Chronic back pain greater than 3 months duration (12/29/14) Cyst of fallopian tube Depression Factor V Leiden mutation GERD (gastroesophageal reflux disease) Hematuria History of DVT (deep vein thrombosis) Hypothyroidism Iatrogenic pulmonary embolism and infarction Intractable vomiting with nausea Left buttock abscess Left lower quadrant pain (01/27/12) Migraine headache Nephrolithiasis Orbital cellulitis on left Other enthesopathies, not elsewhere classified (03/21/16) Neck Panic disorder (03/21/16) Preseptal cellulitis of left eye Recurrent deep vein thrombosis (DVT) Right lower quadrant abdominal pain inflamed/ruptured fallopian tube on the right Thrombosis of arteries of lower extremity Vaginal candidiasis Surgical History Abdominal hysterectomy (~2009) 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) Arthroplasty of knee (~1999) left Bilateral salpingectomy with oophorectomy (~2008) Cervical Conization/LEEP LEEP 2003 [facility] BX 2003 Cholecystectomy History of arthroscopy of knee S/P appendectomy (12/24/17) Dr Veliz - Lap appy and lap excision of R fallopian tube remnant Status post cholecystectomy Status post LEEP (loop electrosurgical excision procedure) of cervix THUMB RECONSTRUCTION left; in childhood Social History Smoking/Tobacco Use Status: Never Smoking risk assessment performed?: Yes Alcohol Intake: current Alcohol Intake frequency: 0-2 drinks per day Drug use: Daily Substance use type: marijuana Current gender identity: female Do you feel safe at home: Yes Do you feel safe in your relationship?: Yes Additional Social history: Patient is and with one child. Exam <TYRON Casanova - Last Filed: 07/13/20 18:52> Const General: cooperative, healthy appearing and in distress (Actively dry heaving) Orientation: alert and awake HENNJ Head: normal to inspection, normocephalic and atraumatic Mouth: moist mucous membranes abnormal (Slightly dry) Eyes General: appearance normal, both eyes and all related structures Conjunctivae: conjunctivae normal Sclera: sclerae normal Neck Neck: normal visual inspection, full ROM, trachea midline and supple Resp Effort & Inspection: normal respiratory effort and able to speak in complete sentences Auscultation: clear to auscultation bilaterally Cardio Rate: regular rate Rhythm: regular rhythm GI Inspection: normal to inspection Palpation: soft, not firm, no guarding, no pulsatile masses and tender in the epigastrum (Mild); with no rebound tenderness Auscultation: normal bowel sounds Back/Spine/Pelvis Back: No back tenderness Skin General skin exam: no rashes or lesions noted Neuro General: patient alert, patient awake, moves all extremities and no focal motor deficits Cognition: normal cognition Speech: speech normal Gait: normal gait Sensory Exam: no sensory deficits noted Extrem General: normal to inspection, full ROM, capillary refill normal, no pedal edema and no calf tenderness Psych Appearance: grossly normal Mental Status: mental status grossly normal Course <TYRON Casanova - Last Filed: 07/13/20 18:52> Vital Signs Vital signs: Vital Signs Temperature 36.7 C 07/13/20 13:49 Pulse 82 07/13/20 13:49 Respiratory Rate 16 07/13/20 13:49 Blood Pressure 132/67 07/13/20 13:49 Pulse Oximetry 97 07/13/20 13:49 Temperature 36.7 C 07/13/20 13:49 Temperature Source Skin 07/13/20 13:49 Pulse 82 07/13/20 13:49 Respiratory Rate 16 07/13/20 13:49 Blood Pressure 132/67 07/13/20 13:49 Blood Pressure Position Sitting 07/13/20 13:49 Pulse Oximetry 97 07/13/20 13:49 Oxygen Delivery Method Room Air 07/13/20 13:49 Oxygen Flow Rate 0 07/13/20 13:49 Pain Level 8 07/13/20 13:49
[2020-07-13 14:38] LABS: Abs Immature Grans 0.06 10^3/uL (0.0-0.06); Absolute Basophil Count 0.05 10^3/uL (0.0-0.2); Absolute Eosinophil Count 0.02 10^3/uL (0.0-0.7); Absolute Neutrophil Count 15.82 10^3/uL (1.2-6.7); Basophils % 0.3; Eosinophils % 0.1; HCT 42.8 % (36.0-46.0); HGB 14.1 g/dL (11.2-15.7); Immature Grans % 0.3; Lymphocytes % 5.2; MCH 28.7 pg (27.0-33.0); MCHC 32.9 % (32.0-36.0); MCV 87.2 fL (80-95); Monocytes % 4.5; Neutrophils % 89.6; Nucleated RBC 0 %; Platelet Count 327 10^3/uL (130-400); RBC 4.91 10^6/uL (3.93-5.22); RDW 13.9 % (11.7-14.6); RDW-SD 44.9 fL; WBC 17.66 10^3/uL (4.4-10.8)
[2020-07-13 14:41] LABS: Absolute Lymphocyte Count 0.92 10^3/uL (1.2-3.4); Absolute Monocyte Count 0.79 10^3/uL (0.1-0.8)
[2020-07-13 14:54] LABS: ALT 45 U/L (14-59); AST 25 U/L (15-37); Albumin 4.3 g/dL (3.4-5.0); Alkaline Phosphatase 56 U/L (46-116); Anion Gap 14.9 mmol/L (3-11); BUN 9 mg/dL (7-18); Bilirubin, Total 0.3 mg/dL (0.2-1.0); CO2 23.1 mmol/L (21.0-32.0); CREATININE 1.2 mg/dL (0.55-1.02); Calcium 9.2 mg/dL (8.5-10.1); Chloride 104 mmol/L (98-107); Estimated GFR 49.51 (mL/min/1.73m2); Glucose 148 mg/dL (74-106); Lipase 89 U/L (73-393); Potassium 3.6 mmol/L (3.5-5.1); Sodium 142 mmol/L (136-145); Total Protein 7.7 g/dL (6.4-8.2)
[2020-07-13] MEDS: Metoclopramide 10 MG/2 ML VIAL IVP ×3 (14:56→23:35)
[2020-07-13] MEDS: Normal Saline 50 ML (14:56)
[2020-07-13] MEDS: Normal Saline 1,000 ML 1000 ML IV ×2 (14:56→17:15)
[2020-07-13 15:01] LABS: INR 1.7 (0.9-1.1); PTT Activated 23.1 sec (21.0-27.5); Prothrombin Time 17.1 sec (9.3-11.0)
[2020-07-13 15:28] LABS: Bilirubin Negative (Negative); Blood Trace-intact (Negative); Clarity Clear (Clear); Glucose 100 mg/dL (Negative); Ketones Negative (Negative); Leukocyte Esterase Negative (Negative); Nitrite Negative (Negative); Urobilinogen 0.2 EU/dL (Up TO 0.2); pH >= 9.0 (5-8)
[2020-07-13 15:43] LABS: Bacteria Negative HPF (Negative); C & S Indicated? No/Sq. Contamination; Casts Negative LPF (Negative); Crystals Negative HPF (Negative); Epithelial Cells Many HPF (Negative); Mucus Negative (Negative); Other Cells Negative (Negative); RBC 0-2 HPF (0-2); WBC Negative HPF (0-5)
[2020-07-13] MEDS: HYDROmorphone 2 MG/ML VIAL 0.5 MG IVP (16:05)
--- NOTE | 2020-07-13 17:00 | DI.RAD_ITS ---
EXAM: XR CHEST 2V PA LATERAL CLINICAL HISTORY: N/V, epigastric pain. TECHNIQUE: 2D digital imaging was performed. COMPARISON: CR CHEST 2 VIEWS PA,LAT from 11/17/2016 FINDINGS: Heart size is normal. The mediastinum is not widened. Lungs are clear. No infiltrates nor pleural effusions. IMPRESSION: No acute pulmonary findings.No significant change compared to 11/17/2016 DATA REPOSITORY: RADIATION DOSE DELIVERED:
[2020-07-13 17:36] LABS: Source Nasal/Nares
--- NOTE | 2020-07-13 18:00 | DI.CT_ITS ---
EXAM: CT ABDOMEN PELVIS W CLINICAL HISTORY: N/V/Pain, Lactate 4.6. TECHNIQUE: Imaging Protocol: Axial computed tomography images with coronal and sagittal reformatted images were created and reviewed CONTRAST MATERIAL: Intravenous: Omnipaque 100cc Oral: None COMPARISON: CT CT ABDOMEN PELVIS W from 05/14/2020 FINDINGS: VISUALIZED LUNG BASES: Mild benign-appearing increased markings in the right lung base. No pleural e ffusions.. ABDOMEN: There is no ascites. LIVER: There are no obvious focal hepatic lesions evident . GALLBLADDER/BILIARY: The gallbladder is again noted to be surgically absent. CBD is not dilated. PANCREAS: No evidence of pancreatic mass nor dilatation of the pancreatic duct. SPLEEN: Spleen is not enlarged. No obvious intrasplenic lesions. Splenic and portal veins are paten t. ADRENALS: There are no significant adrenal masses. KIDNEYS:There is a punctate nonobstructive calculus in the lower pole of the left kidney. No other c alculi seen. No solid or significant cystic renal masses. No hydronephrosis nor hydroureter.. No o bvious abnormality in the urinary bladder. . ABDOMINAL AORTA: Abdominal aorta exhibits some atherosclerotic involvement at and above the inferior mesenteric artery takeoff point. The ERICK is not included. No prominent aneurysm. No stenosis at th e aortic bifurcation nor along the aortoiliac segments. LYMPH NODES:There is no retroperitineal nor paraaortic adenopathy. ABDOMINAL WALL/GI: No evidence of significant anterior abdominal wall hernia. No bowel obstruction. PELVIS: GI: The appendix is surgically absent.No evidence of sigmoid diverticulitis.Colon is mostly collapsed . Difficult to evaluate for colitis without intraluminal contrast. LYMPH NODES: There is no intrapelvic nor inguinal adenopathy. REPRODUCTIVE: The uterus is surgically absent.. Left ovary is identified and appears age-appropriate . Right ovary is difficult to adequately-accurately identify. No free fluid in the pelvis. URINARY BLADDER: No calculi nor obvious masses evident OSSEOUS: No significant osseous lesions. IMPRESSION: 1. Compared to the prior CT scan of 05/14/2020 there is again noted evidence of previous hysterectomy , appendectomy, and cholecystectomy. 2. The colon is again noted be decompressed with questionable wall thickening which may be related to an element of colitis versus just under distension. 3. No bowel obstruction. No free air. No abscess. 4. There is a punctate nonobstructive calculus lower pole left kidney. No hydronephrosis nor hydrour eter. RADIATION DOSE DELIVERED: 961.73mGy.cm Total DLP DATA REPOSITORY: All CT scans at this facility are submitted to the National Radiology Data Registry (NRDR) Dose Index Registry (DIR) with the [employer] (A[employer]). RADIATION OPTIMIZATION: All CT scans at this facility use at least one of these dose optimization te chniques: automated exposure control; mA and/or kV adjustment per patient size (includes targeted exa ms where dose is matched to clinical indication); or iterative reconstruction.
[2020-07-13] MEDS: Prochlorperazine 10 MG/2 ML VIAL IVP (18:09)
[2020-07-13 18:12] LABS: Lactate 4.6 mmol/L (0.6-1.4)
--- NOTE | 2020-07-13 18:27 | DI.VRAD_ITS ---
PROCEDURE INFORMATION: Exam: XR Chest Exam date and time: 07/13/2020 5:49 PM Age: 40 years old Clinical indication: Patient HX: N/v, epigastric pain TECHNIQUE: Imaging protocol: XR of the chest Views: 2 views. COMPARISON: CT CHEST WO 05/15/2020 4:14 AM FINDINGS: Lungs: Unremarkable. No consolidation. Pleural spaces: Unremarkable. No pleural effusion. No pneumothorax. Heart/Mediastinum: Unremarkable. No cardiomegaly. Bones/joints: Unremarkable. IMPRESSION: No acute findings. Dictated and Authenticated by: Camryn Agosto MD. Ordering:DEVIN Montalvo MD
[2020-07-13 18:33] LABS: C-Reactive Protein 0.08 mg/dL (0.0-0.3)
[2020-07-13 18:51] LABS: *AMPHETAMINES SCREEN URINE Negative (Negative); *BARBITURATES SCREEN URINE Negative (Negative); *BENZODIAZEPINES SCREEN URINE Negative (Negative); Cannabinoids THC POSITIVE (Negative); Cocaine Screen,Urine Negative (Negative); METHADONE URINE SCREEN Negative (Negative); OPIATES URINE SCREEN POSITIVE (Negative)
[2020-07-13 18:53] LABS: Tricyclic Antidepressants Negative (Negative)
[2020-07-13] MEDS: Normal Saline Flush 10 ML SYR IVP ×4 (19:28→23:36)
[2020-07-13] MEDS: Lactated Ringers 1,000 ML 150 ML IV (19:29)
[2020-07-13] MEDS: diazePAM 10 MG/2 ML SYR 2 MG IVP (19:54)
[2020-07-13 19:55] LABS: Procalcitonin < 0.1 ng/mL
[2020-07-13] MEDS: diphenhydrAMINE 50 MG/ML VIAL IVP (19:55)
[2020-07-13] MEDS: Ondansetron 4 MG/2 ML VIAL IVP (19:55)
[2020-07-13] MEDS: FAMOTIDINE 20 MG/50 ML BAG 200 MG IVPB (20:12)
--- NOTE | 2020-07-13 20:19 | HPE_ITS ---
Date of service: 07/13/20 Time of Service: 20:19 Assessment and Plan Assessment and plan (1) Intractable nausea and vomiting: Status: Acute Assessment and plan: Her syndrome of intermittent nausea and vomiting does not fit criteria for cyclical vomiting but does fit w/ her marijiuana use. For now I will keep her NPO and give iv fluids and antiemetics (Reglan, zofran) and benzodiazepines and antihistamines. Repeat her labs in the a.m. including lactate, CMP, CBC. Further evaluation/treatment depending on results of her CT scan and repeat labs. CT was ordered by the ER based upon the elevated lactate which I think can be explained by her vomiting, dehydration and lack of food. However she has a hx of perirectal abscess but has no current complaints of rectal pain nor open sores. She also has a normal CRP and procalcitonin. (2) Cannabis abuse with cannabis-induced disorder: Status: Chronic Assessment and plan: treat w/ antiemetics, capsacein ointment and hot baths. Patient needs to quit use of marijiuana if she does not want to repeat this over and over again. (3) Leukocytosis, unspecified: Status: Acute Qualifiers: Leukocytosis type: leukemoid reaction Qualified Code(s): D72.823 - Leukemoid reaction (4) Factor V Leiden mutation: Status: Chronic Assessment and plan: continue warfarin at 5 mg nightly. monitor her INR. She did not have her warfarin today. (5) Chronic anticoagulation: Status: Chronic (6) Hypothyroidism: Status: Chronic Assessment and plan: continue levothyroxine. check levels in a.m. Qualifiers: Hypothyroidism type: acquired Qualified Code(s): E03.9 - Hypothyroidism, unspecified History of Present Illness History of Present Illness Chief Complaint: vomiting since 2 a.m. Narrative: 40-year-old female with past medical history of cannabis abuse and previous admissions for cyclic nausea and vomiting, history of Leiden factor V mutation on chronic anticoagulation with warfarin, history of DVT and PE, hypothyroidism, nephrolithiasis, cellulitis with MRSA including previous perirectal abscess, periorbital cellulitis, presents to the emergency department with intractable nausea and vomiting. Emesis has been yellow bile no melena nor hematochezia. Emesis began aroun 2 a.m. She tried hot baths and her zofran w/out improvement. She states that she has had epigastric and chest pains from her throat to her stomach since the vomiting began. She denies any fever, rigors, dysuria. She presented to the ER at 13:49 and underwent workup that included routine labs including CBC w/ diff, CMP, lipase, urine for UA, and TUTORING ASSISTANT swab for SARS-CoV2 (negative). She also had a CXR which was negative. Labs demonstrated leukocytosis of 17,000 w/ PMN of 15,000, no bands, no anemia. INR of 1.7 (she did not have her warfarin today), mildly elevated creatinine of 1.2 w/ normal BUN 9. Electrolytes were normal. Glucose 148 and normal LFT's and normal lipase. The ER staff attempted to treat her nausea and emesis w/ iv reglan, zofran, phenergan, compazine, capsaicin cream, and dilaudid. After janee shea called by the ER for admission, I ordered CRP, procalcitonin and lactate level. Lactate is elevated at 4.6 but her CRP is normal at 0.08 and procalcitonin is normal at <0.1. Because of the nausea, vomiting and elevated lactate, the ER staff ordered a CT of the abdomen and pelvis however, I still t hink that her hyperemesis is secondary to her marijiuana use although she minimizes her use. She states that she has used only one bowl of marijiuana in the past week. I think that her elevated lactate is d/t dehydration/hyperemesis. She is admitted on observation status for iv fluid hydration, control of her nausea and emesis. Serial labs will be done including repeat lactate this evening, follow up on her CT scan, and aggressive hydration and aggressive medication for her hyperemesis including dopamine antagonists (reglan), serotonin receptor antagonists (zofran), antihistamines (benadryl, pepcid), and benzodiazepines (valium). No role for narcotic analgesics. She can have her carafate and continue w/ PPI for bile gastritis. She will be kept NPO until the vomiting stops then trial of clear liquids. Review of Systems Constitutional Constitutional: Denies chills and Denies fever(s) Cardiovascular Cardiovascular: Reports system reviewed and no additional complaints, except as documented, Reports chest pain at rest (related to her vomiting), Denies leg edema and Denies dyspnea Respiratory Respiratory: Denies dyspnea Gastrointestinal Gastrointestinal: Reports as per HPI Genitourinary Genitourinary: Reports system reviewed and no additional complaints, except as documented Musculoskeletal Musculoskeletal: Reports system reviewed and no additional complaints, except as documented Integumentary/Breasts Skin/Breast: Reports system reviewed and no additional complaints, except as documented [facility] Medical History Acute deep vein thrombosis (DVT) of left lower extremity ADHD (attention deficit hyperactivity disorder), 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) Asthma (11/08/12) B12 deficiency Candidiasis Cannabis abuse with cannabis-induced disorder Cellulitis of left leg Chronic anticoagulation Chronic anticoagulation On coumadin Chronic back pain greater than 3 months duration (12/29/14) Cyst of fallopian tube Depression Factor V Leiden mutation GERD (gastroesophageal reflux disease) Hematuria History of DVT (deep vein thrombosis) Hypothyroidism Iatrogenic pulmonary embolism and infarction Intractable vomiting with nausea Left buttock abscess Left lower quadrant pain (01/27/12) Migraine headache Nephrolithiasis Orbital cellulitis on left Other enthesopathies, not elsewhere classified (03/21/16) Neck Panic disorder (03/21/16) Preseptal cellulitis of left eye Recurrent deep vein thrombosis (DVT) Right lower quadrant abdominal pain inflamed/ruptured fallopian tube on the right Thrombosis of arteries of lower extremity Vaginal candidiasis Surgical History Abdominal hysterectomy (~2009) 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) Arthroplasty of knee (~1999) left Bilateral salpingectomy with oophorectomy (~2008) Cervical Conization/LEEP LEEP 2003 [facility] BX 2003 Cholecystectomy History of arthroscopy of knee S/P appendectomy (12/24/17) Dr Veliz - Car appy and lap excision of R fallopian tube remnant Status post cholecystectomy Status post LEEP (loop electrosurgical excision procedure) of cervix THUMB RECONSTRUCTION left; in childhood Social History Smoking/Tobacco Use Status: Never Smoking risk assessment performed?: Yes Alcohol Intake: current Alcohol Intake frequency: 0-2 drinks per day Drug use: Daily Substance use type: marijuana Current gender identity: female Do you feel safe at home: Yes Do you feel safe in your relationship?: Yes Additional Social history: Patient is and with one child. Meds Home Medications and Allergies Allergies Allergy/AdvReac Type Severity Reaction Status Date / Time aripiprazole [From Abilify] Allergy Severe Rash, hives Verified 07/13/20 13:51 doxycycline Allergy Severe Anaphylaxsi Verified 07/13/20 13:51 s levetiracetam [From Keppra] Allergy Severe RASH/HIVES Verified 07/13/20 13:51 sulfamethoxazole Allergy Severe Hives Verified 07/13/20 13:51 venom-honey bee Allergy Severe unknown Verified 07/13/20 13:51 Penicillins Allergy Intermediate Skin Rash Verified 07/13/20 13:51 chlorhexidine Allergy Unknown unknown Verified 07/13/20 13:51 Sulfa (Sulfonamide Allergy Verified 07/13/20 13:51 Antibiotics) mold AdvReac Severe Wheezing Verified 07/13/20 13:51 oxycodone [Oxycodone] AdvReac Severe vomits Verified 07/13/20 13:51 paroxetine AdvReac Severe Irritability Verified 07/13/20 13:51 and anger dicloxacillin [Dicloxacillin] AdvReac Mild Nausea Verified 07/13/20 13:51 gabapentin AdvReac Mild hives Verified 07/13/20 13:51 prednisone AdvReac Agitation Verified 07/13/20 13:51 trazodone AdvReac shortness Verified 07/13/20 13:51 of breath verapamil [Verapamil] AdvReac Worsening Verified 07/13/20 13:51 migraine nuts Allergy Severe Anaphylaxsi Uncoded 07/13/20 13:51 s Home Medications Medication Instructions Recorded Confirmed Type Citracal Plus Bone Density 1 ea PO BID tab-cap 11/09/12 07/13/20 History Space Chamber Plus #1 spacer 05/01/14 04/09/20 Rx cyproheptadine 4 mg PO HS #90 tab-cap 06/04/16 07/13/20 History Narcan 4 mg NS DAILY PRN PRN #2 spray 12/08/16 07/13/20 Rx ipratropium-albuterol 3 ml INHALATION Q4H PRN PRN #1 box 01/23/17 07/13/20 History MDD 6 times albuterol sulfate 1.25 mg/3 mL 1.25 mg INHALATION Q6H PRN #75 ml 01/12/19 07/13/20 Rx solution for nebulization acidophilus 25 million 2 tab PO TID #90 tab 05/29/19 07/13/20 Rx cell-pectin, citrus 100 mg tablet alcohol swabs See Rx Instructions TP .COMPLEX 07/11/19 07/13/20 Rx #300 each triamcinolone acetonide 0.1 % 1 applic TOPICAL BID PRN #60 gm 09/05/19 07/13/20 Rx topical cream methylphenidate HCl 20 mg tablet 20 mg PO TID #84 tab-cap MDD 60 mg 10/20/19 07/13/20 Rx fexofenadine 180 mg tablet 180 mg PO DAILY #90 tab-cap 11/01/19 07/13/20 Rx Topamax 200 mg tablet 400 mg PO HS #180 tab NS 11/11/19 07/13/20 Rx diphenhydramine HCl [Benadryl 100 mg PO HS 12/13/19 07/13/20 History Allergy] diphenhydramine HCl 25 mg PO Q4H PRN PRN #20 cap 12/15/19 07/13/20 Rx lorazepam 1 mg PO Q6H PRN #30 ml 12/15/19 07/13/20 Rx metoclopramide HCl 5 mg tablet 5 mg PO HS #30 tab 12/30/19 07/13/20 Rx sucralfate 1 gram tablet 1 g PO AC & HS #120 tab 12/30/19 07/13/20 Rx warfarin 5 mg tablet 5 mg PO PER PROTOCOL #90 tab 02/09/20 07/13/20 Rx clotrimazole-betamethasone 1 1 applic TOPICAL BID PRN #45 gm 02/22/20 07/13/20 Rx %-0.05 % topical cream epinephrine 0.3 mg/0.3 mL 0.3 mg IM ONCE #1 ea 02/22/20 07/13/20 Rx injection, auto-injector fluticasone propionate 220 2 inh INHALATION BID #3 inhaler 02/22/20 07/13/20 Rx mcg/actuation HFA aerosol inhaler levothyroxine 125 mcg tablet 125 mcg PO .AM #90 tab 02/22/20 07/13/20 Rx omeprazole 40 mg capsule,delayed 40 mg PO DAILY #90 cap 02/22/20 07/13/20 Rx release albuterol sulfate 90 mcg/actuation 2 puff INHALATION Q6H PRN #3 03/07/20 07/13/20 Rx aerosol inhaler inhaler MDD 6 puffs ondansetron HCl 8 mg tablet 8 mg PO BID PRN #20 tab 03/07/20 07/13/20 Rx sumatriptan succinate 6 mg/0.5 mL 6 mg SUBCUT ONCE PRN #90 syrg MDD 03/07/20 07/13/20 Rx subcutaneous pen injector 12mg fluoxetine 10 mg capsule 10 mg PO DAILY 03/19/20 07/13/20 History clonazepam 1 mg tablet 1 mg PO TID PRN #90 tab 03/20/20 07/13/20 Rx hydrocodone 5 mg-acetaminophen 325 1 tab PO BID PRN #60 tab MDD 2 tabs 03/20/20 07/13/20 Rx mg tablet tapentadol [Nucynta] 50 mg PO Q6H PRN #10 tab 05/19/20 07/13/20 Rx Exam Narrative Exam Narrative: Lightheaded obese female lying in bed with her eyes shut who was looking at me or offering any answers unless she is directly question. HEENT unremarkable Neck supple nontender Lungs are clear to auscultation Heart regular rate and rhythm Abdomen is obese soft nondistended with scattered bowel sounds mild epigastric tenderness but no guarding or rebound tenderness. No palpable masses Lower extremities without peripheral cyanosis or edema normal pedal pulses no c chcf tenderness Genitalia and rectal exam deferred No flank tenderness Neuro exam grossly intact no focal deficits Results Labs Result diagrams: 07/13/20 14:30 07/13/20 14:30 Labs: Laboratory Results - last 24 hr 07/13/20 07/13/20 07/13/20 14:30 14:30 14:30 WBC 17.66 H RBC 4.91 Hgb 14.1 Hct 42.8 MCV 87.2 MCH 28.7 MCHC 32.9 RDW 13.9 Plt Count 327 MPV 11.0 Immature Gran % 0.3 Neutrophils % 89.6 Lymphocytes % 5.2 Monocytes % 4.5 Eosinophils % 0.1 Basophils % 0.3 Nucleated RBC % 0 Absolute Neutrophils 15.82 H Absolute Lymphocytes 0.92 L Absolute Monocytes 0.79 Absolute Eosinophils 0.02 Absolute Basophils 0.05 PT 17.1 H INR 1.7 H APTT 23.1 VBG Lactate Sodium 142 Potassium 3.6 Chloride 104 Carbon Dioxide 23.1 Anion Gap 14.9 H BUN 9 Creatinine 1.2 H Estimated GFR/1.73 m2 49.51 Glucose 148 H Calcium 9.2 Total Bilirubin 0.3 AST 25 ALT 45 Alkaline Phosphatase 56 C-Reactive Protein Total Protein 7.7 Albumin 4.3 Lipase 89 Procalcitonin Urine Color Urine Clarity Urine pH Ur Specific Loyal Urine Protein Urine Ketones Urine Blood Urine Nitrite Urine Bilirubin Urine Urobilinogen Ur Leukocyte Esterase Urine RBC Urine WBC Ur Epithelial Cells Urine Crystals Urine Bacteria Urine Casts Urine Mucus Urine Other Ur Culture Indicated? Urine Glucose Urine Opiates Screen Urine Methadone Screen Ur Barbiturates Screen Ur Tricyclics Screen Ur Amphetamines Screen U Benzodiazepines Scrn Urine Cocaine Screen Ur THC Screen COVID-19 Source 07/13/20 07/13/20 07/13/20 15:16 15:16 17:24 WBC RBC Hgb Hct MCV MCH MCHC RDW Plt Count MPV Immature Gran % Neutrophils % Lymphocytes % Monocytes % Eosinophils % Basophils % Nucleated RBC % Absolute Neutrophils Absolute Lymphocytes Absolute Monocytes Absolute Eosinophils Absolute Basophils PT INR APTT VBG Lactate Sodium Potassium Chloride Carbon Dioxide Anion Gap BUN Creatinine Estimated GFR/1.73 m2 Glucose Calcium Total Bilirubin AST ALT Alkaline Phosphatase C-Reactive Protein Total Protein Albumin Lipase Procalcitonin Urine Color Yellow Urine Clarity Clear Urine pH >= 9.0 H Ur Specific Loyal 1.020 Urine Protein Trace H Urine Ketones Negative Urine Blood Trace-intact H Urine Nitrite Negative Urine Bilirubin Negative Urine Urobilinogen 0.2 Ur Leukocyte Esterase Negative Urine RBC 0-2 Urine WBC Negative Ur Epithelial Cells Many Urine Crystals Negative Urine Bacteria Negative Urine Casts Negative Urine Mucus Negative Urine Other Negative Ur Culture Indicated? No/sq. contamination Urine Glucose 100 Urine Opiates Screen Positive A Urine Methadone Screen Negative Ur Barbiturates Screen Negative Ur Tricyclics Screen Negative Ur Amphetamines Screen Negative U Benzodiazepines Scrn Negative Urine Cocaine Screen Negative Ur THC Screen Positive A COVID-19 Source Nasal/nares 07/13/20 07/13/20 07/13/20 17:55 17:55 17:55 WBC RBC Hgb Hct MCV MCH MCHC RDW Plt Count MPV Immature Gran % Neutrophils % Lymphocytes % Monocytes % Eosinophils % Basophils % Nucleated RBC % Absolute Neutrophils Absolute Lymphocytes Absolute Monocytes Absolute Eosinophils Absolute Basophils PT INR APTT VBG Lactate 4.6 H* Sodium Potassium Chloride Carbon Dioxide Anion Gap BUN Creatinine Estimated GFR/1.73 m2 Glucose Calcium Total Bilirubin AST ALT Alkaline Phosphatase C-Reactive Protein 0.08 Total Protein Albumin Lipase Procalcitonin < 0.1 Urine Color Urine Clarity Urine pH Ur Specific Loyal Urine Protein Urine Ketones Urine Blood Urine Nitrite Urine Bilirubin Urine Urobilinogen Ur Leukocyte Esterase Urine RBC Urine WBC Ur Epithelial Cells Urine Crystals Urine Bacteria Urine Casts Urine Mucus Urine Other Ur Culture Indicated? Urine Glucose Urine Opiates Screen Urine Methadone Screen Ur Barbiturates Screen Ur Tricyclics Screen Ur Amphetamines Screen U Benzodiazepines Scrn Urine Cocaine Screen Ur THC Screen COVID-19 Source Last Vital Signs Temp 36.8 C 07/13/20 19:42 Pulse 68 07/13/20 19:42 Resp 20 07/13/20 19:42 BP 184/91 H 07/13/20 18:28 Pulse Ox 99 07/13/20 19:42 COVID-19 Screening Have you, or household traveled for leisure in last 14 days?: No Had IN PERSON contact w/suspected or confirmed C-19 person: No
[2020-07-13 20:44] LABS: COVID-19 PCR Negative (Negative)
[2020-07-13] MEDS: Pantoprazole 40 MG VIAL IVP (22:06)
--- NOTE | 2020-07-13 22:28 | DI.VRAD_ITS ---
PROCEDURE INFORMATION: Exam: CT Abdomen And Pelvis With Contrast Exam date and time: 07/13/2020 6:15 PM Age: 40 years old Clinical indication: Nausea and vomiting; Abdominal pain; Generalized; Patient HX: N/v/pain, lactate 4.6 TECHNIQUE: Imaging protocol: Computed tomography of the abdomen and pelvis with contrast. COMPARISON: CT ABDOMEN PELVIS W 05/14/2020 7:03 PM FINDINGS: Lungs: Minimal dependent atelectasis within the lower lobes. Pleural spaces: No pleural effusion. Heart: The heart is normal in size. No pericardial effusion. Mediastinal space: Moderate wall thickening throughout the lower esophagus. Liver: The liver is moderately enlarged and moderately fatty infiltrated. Gallbladder and bile ducts: The gallbladder is surgically absent. No bile duct dilatation. Pancreas: The pancreas is normal appearance. Spleen: The spleen is normal in size and normal in appearance. Adrenal glands: The bilateral adrenal glands are normal appearance. Kidneys and ureters: Several small hyperdense foci are seen within the left renal pelvis, likely representing early excretion of contrast. No hydroureteronephrosis. The bilateral kidneys are otherwise normal in appearance. Stomach and bowel: Moderate wall thickening throughout the gastric folds and gastric antrum. A few areas of mild hyperenhancement of the mucosa is seen within nondilated fluid-filled loops of small bowel. Moderate wall thickening is seen within the rectum, most pronounced within the distal rectum. Mild wall thickening is seen throughout the remaining colon. No bowel obstruction or pneumatosis. Appendix: The appendix is surgically absent. Intraperitoneal space: Unremarkable. No free air. No significant fluid collection. Vasculature: Unremarkable. No abdominal aortic aneurysm. Lymph nodes: Unremarkable. No enlarged lymph nodes. Urinary bladder: The urinary bladder is normal appearance. Minimal wall thickening within the urinary bladder. Reproductive: The uterus is surgically absent. Bones/joints: Unremarkable. No acute fracture. Soft tissues: Unremarkable. IMPRESSION: 1. Findings consistent with gastroesophagitis, and enterocolitis. This represents either an infectious or inflammatory process. This is similar to slightly more pronounced when compared to the prior studies. 2. Enlarged, fatty infiltrated liver. Cholecystectomy. 3. Slight wall thickening within the urinary bladder, which may be due to incomplete distention. However, cystitis could have this appearance in the correct clinical context. If clinically indicated, this can be further evaluated with a urinalysis. Dictated and Authenticated by: Camryn Agosto MD. Ordering:DEVIN Montalvo MD
[2020-07-13 22:52] LABS: Lactate 4.8 mmol/L (0.6-1.4)
[2020-07-14] VITALS (7 sets, daily range): BP systolic 148–173; BP diastolic 76–106; PULSE 59–96; RESP 17–18; TEMP 36.5–37.3; O2SAT 99–100
--- NOTE | 2020-07-14 00:17 | NUR.NOTE ---
Asked for tylenol for pt. states I have ordered medication for the nausea. I stated that I am not sure if I mentioned tylenol. states I know what you mean.Nursing Note:
[2020-07-14] MEDS: Ondansetron 4 MG/2 ML VIAL IVP ×3 (00:26→21:39)
[2020-07-14] MEDS: ACETAMINOPHEN 1,000 MG/100 ML BTL 400 MG IVPB ×2 (01:03→21:08)
[2020-07-14 01:15] LABS: Bilirubin Negative (Negative); Blood Trace-intact (Negative); Clarity Clear (Clear); Glucose Negative (Negative); Ketones Negative (Negative); Leukocyte Esterase Negative (Negative); Nitrite Negative (Negative); Urobilinogen 0.2 EU/dL (Up TO 0.2); pH 8.5 (5-8)
[2020-07-14 01:18] LABS: Bacteria Negative HPF (Negative); C & S Indicated? C&S Done As Ordered; Casts Negative LPF (Negative); Crystals Negative HPF (Negative); Epithelial Cells Negative HPF (Negative); Mucus Negative (Negative); RBC 0-2 HPF (0-2); WBC Negative HPF (0-5)
[2020-07-14] MEDS: diphenhydrAMINE 50 MG/ML VIAL IVP ×4 (01:43→21:10)
[2020-07-14] MEDS: CIPROFLOXACIN 400 MG/200 ML BAG 200 MG IVPB ×2 (02:34→15:02)
[2020-07-14] MEDS: diazePAM 10 MG/2 ML SYR 5 MG IVP ×2 (03:43→10:46)
[2020-07-14] MEDS: metroNIDAZOLE 500 MG/100 ML BAG 100 MG IVPB ×3 (03:49→23:07)
[2020-07-14] MEDS: Metoclopramide 10 MG/2 ML VIAL IVP ×2 (04:45→08:49)
[2020-07-14] MEDS: Normal Saline Flush 10 ML SYR IVP ×8 (04:46→22:03)
[2020-07-14] MEDS: Lactated Ringers 1,000 ML 150 ML IV (06:21)
[2020-07-14 06:29] LABS: Abs Immature Grans 0.09 10^3/uL (0.0-0.06); Absolute Basophil Count 0.02 10^3/uL (0.0-0.2); Basophils % 0.1; HCT 40.5 % (36.0-46.0); HGB 13.6 g/dL (11.2-15.7); Immature Grans % 0.6; Lymphocytes % 6.1; MCH 28.7 pg (27.0-33.0); MCHC 33.6 % (32.0-36.0); MCV 85.4 fL (80-95); MPV 11.3 fL (8.0-11.0); Monocytes % 4.6; Neutrophils % 88.6; Nucleated RBC 0 %; Platelet Count 282 10^3/uL (130-400); RBC 4.74 10^6/uL (3.93-5.22); RDW 14.1 % (11.7-14.6); RDW-SD 44.5 fL; WBC 16.14 10^3/uL (4.4-10.8)
[2020-07-14 06:30] LABS: Absolute Lymphocyte Count 0.98 10^3/uL (1.2-3.4); Absolute Monocyte Count 0.74 10^3/uL (0.1-0.8)
[2020-07-14 06:31] LABS: Lactate 2.3 mmol/L (0.6-1.4)
[2020-07-14 06:40] LABS: INR 1.7 (0.9-1.1); Prothrombin Time 17.3 sec (9.3-11.0)
[2020-07-14 06:52] LABS: Albumin 4.1 g/dL (3.4-5.0); BUN 10 mg/dL (7-18); Bilirubin, Total 0.6 mg/dL (0.2-1.0); CREATININE 1.1 mg/dL (0.55-1.02); Calcium 8.5 mg/dL (8.5-10.1); Estimated GFR 54.74 (mL/min/1.73m2); Glucose 115 mg/dL (74-106); Total Protein 7.3 g/dL (6.4-8.2)
[2020-07-14 06:53] LABS: ALT 36 U/L (14-59); AST 16 U/L (15-37); Alkaline Phosphatase 54 U/L (46-116); Anion Gap 15.4 mmol/L (3-11); CO2 20.6 mmol/L (21.0-32.0); Chloride 100 mmol/L (98-107); Potassium 3.1 mmol/L (3.5-5.1); Sodium 136 mmol/L (136-145); TSH (W/Ref FT4) 0.95 uIU/mL (0.36-3.74)
[2020-07-14 07:49] LABS: Magnesium 1.6 mg/dL (1.8-2.4)
[2020-07-14] MEDS: Mometasone 220 MCG 14 DOSE INHALER IH ×2 (08:19→23:05)
[2020-07-14] MEDS: POTASSIUM CHLORIDE/0.9% NACL 1,000 ML 150 MEQ IV (08:50)
[2020-07-14] MEDS: POTASSIUM CHLORIDE 20 MEQ/100 ML BAG 50 MEQ IVPB (08:50)
--- NOTE | 2020-07-14 10:15 | INITIAL_ITS ---
- If Service Date Differs Date of service: 07/14/20 Time of Service: 10:15 Care Management Initial Assess REASON FOR HOSPITALIZATION:: Intractable vomiting and nausea PAST MEDICAL HISTORY/PAST SURGICAL HISTORY:: Medical History. Acute deep vein thrombosis (DVT) of left lower extremity. ADHD (attention deficit hyperactivity disorder), 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). Asthma (11/08/12). B12 deficiency. Candidiasis. Cannabis abuse with cannabis-induced disorder. Cellulitis of left leg. Chronic anticoagulation. Chronic anticoagulation. On coumadin. Chronic back pain greater than 3 months duration (12/29/14). Cyst of fallopian tube. Depression. Factor V Leiden mutation. GERD (gastroesophageal reflux disease). Hematuria. History of DVT (deep vein thrombosis). Hypothyroidism. Iatrogenic pulmonary embolism and infarction. Intractable vomiting with nausea. Left buttock abscess. Left lower quadrant pain (01/27/12). Migraine headache. Nephrolithiasis. Orbital cellulitis on left. Other enthesopathies, not elsewhere classified (03/21/16). Neck. Panic disorder (03/21/16). Preseptal cellulitis of left eye. Recurrent deep vein thrombosis (DVT). Right lower quadrant abdominal pain. inflamed/ruptured fallopian tube on the right. Thrombosis of arteries of lower extremity. Vaginal candidiasis. Surgical History. Abdominal hysterectomy (~2009). 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 Arthroplasty of knee (~1999). left. Bilateral salpingectomy with oophorectomy (~2008). Cervical Conization/LEEP. LEEP 2002. [facility] BX 2002. Cholecystectomy. History of arthroscopy of knee. S/P appendectomy (12/24/17). Dr Veliz - Car [place] and car excision of R fallopian tube remnant. Status post cholecystectomy. Status post LEEP (loop electrosurgical excision procedure) of cervix. THUMB RECONSTRUCTION. left; in childhood PREVIOUS FUNCTIONAL STATUS/SOCIAL/FAMILY SUPPORTS:: Suzie resides in [facility] with her son Braulio. She is disabled and identifies her support system as her son and sometimes her Mom.Suzie is independent with self care and activities of daily living. Suzie has chronic pain though is independent in the community at baseline. CURRENT FUNCTIONAL STATUS:: Suzie was under precautions when CM attempted to visit with her. She had changed rooms, per RN, in order to be able to shower, but once she was in the new room the shower did not have hot running water. A jewelry model maker has been consulted. She remains on IV abx at this time, and monitored at m/s level of care. CM will continue to follow. ADVANCE DIRECTIVES:: On file at [facility] agent is Brauliogm Rodriguez Has patient been provided with info about the portal/API?: Yes Did the patient sign up for the portal?: Yes CODE STATUS:: Full Code INSURANCE COVERAGE / FINANCIAL ISSUES:: [facility]/ [facility] CURRENT HOME/COMMUNITY SERVICES/EQUIPMENT:: No current services or equipment. PRIMARY CARE PHYSICIAN:: Patrica Lopez POTENTIAL DISCHARGE NEEDS:: Evaluations for further needs, follow up appointment s PATIENT/FAMILY EDUCATION NEEDS:: Review discharge instructions regarding activity levels and medications, discussion of self care needs including ask me three. ANTICIPATED BARRIERS TO DISCHARGE:: None identified. TRANSPORTATION:: Via private vehicle by son PLAN:: Anticipate Suzie will return home when medically cleared. Her son will drive her home via private vehicle when ready. She will follow up with her PCP and discharge plan of care. CM will continue to follow.
[2020-07-14] MEDS: Potassium Chloride 10 MEQ CAPCR 20 MEQ PO ×3 (10:45→21:09)
[2020-07-14] MEDS: MAGNESIUM SULFATE 4 GM/100 ML BAG IVPB (10:45)
--- NOTE | 2020-07-14 13:44 | W.PM.PROGNOT ---
Date of Service Date of service: 07/14/20 Time of Service: 13:56 Assessment and Plan Assessment and plan (1) Enterocolitis: Status: Acute Assessment and plan: probably viral or possibly inflammatory bowel disease. However, in light of her fevers, leukocytosis and elevated blood lactate, I will continue on iv cipro and flagyl pending her cultures. She needs outpatient follow up for c-scope and EGD which she says that she had an appointment in [place], [place] last February but cancelled when her boyfriend suddenly. She indicated that she is ready to make that follow up appointment. (2) Gastroesophagitis: Status: Acute Assessment and plan: cont. pepcid, protonix and carafate (3) Intractable nausea and vomiting: Status: Acute Assessment and plan: doing better w/ benadryl, reglan, zofran and valium. will advance diet as tolerated. I am not convinced that this is all attributable to her cannabis use. She indicated that she has cut down considerably on her use. However, it can take several months after discontinuation for hyperemesis of cannabis to resolve. (4) Chronic anticoagulation: Status: Chronic Assessment and plan: cont. warfarin. INR is 1.7 today. 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 She denies any diarrhea since being admitted. She would like to try eating a clear liquid diet and would like a shower. I went over her CT studies showing diffuse gastroesophagitis and enterocolitis. We will continue iv flagyl and cipro for the time being but sincs she has had no diarrhea since admission, it makes the probability for C difficile colitis less. Because she has presented multiple times w/ colitis, she needs an c-scope and also EGD for evaluation of GERD/gastritis. Exam Narrative Exam Narrative: Middle age, redheaded female who is alert and oriented, not nauseated. Not in any pain Lungs clear Cor: RRR Abdomen: non-distended, soft, no guarding nor any rebound tenderness. Normal bowel sounds. Objective Last Vital Signs Temp 37.2 C 07/14/20 11:37 Pulse 62 07/14/20 11:37 Resp 18 07/14/20 11:37 BP 167/94 H 07/14/20 11:37 Pulse Ox 99 07/14/20 11:37 Laboratory Results - last 24 hr 07/13/20 07/13/20 07/13/20 14:30 14:30 14:30 WBC 17.66 H RBC 4.91 Hgb 14.1 Hct 42.8 MCV 87.2 MCH 28.7 MCHC 32.9 RDW 13.9 Plt Count 327 MPV 11.0 Immature Gran % 0.3 Neutrophils % 89.6 Lymphocytes % 5.2 Monocytes % 4.5 Eosinophils % 0.1 Basophils % 0.3 Nucleated RBC % 0 Absolute Neutrophils 15.82 H Absolute Lymphocytes 0.92 L Absolute Monocytes 0.79 Absolute Eosinophils 0.02 Absolute Basophils 0.05 PT 17.1 H INR 1.7 H APTT 23.1 VBG Lactate Sodium 142 Potassium 3.6 Chloride 104 Carbon Dioxide 23.1 Anion Gap 14.9 H BUN 9 Creatinine 1.2 H Estimated GFR/1.73 m2 49.51 Glucose 148 H Calcium 9.2 Magnesium Total Bilirubin 0.3 AST 25 ALT 45 Alkaline Phosphatase 56 C-Reactive Protein Total Protein 7.7 Albumin 4.3 Lipase 89 Procalcitonin TSH Urine Color Urine Clarity Urine pH Ur Specific [place] Urine Protein Urine Ketones Urine Blood Urine Nitrite Urine Bilirubin Urine Urobilinogen Ur Leukocyte Esterase Urine RBC Urine WBC Ur Epithelial Cells Urine Crystals Urine Bacteria Urine Casts Urine Mucus Urine Other Ur Culture Indicated? Urine Glucose Urine Opiates Screen Urine Methadone Screen Ur Barbiturates Screen Ur Tricyclics Screen Ur Amphetamines Screen U Benzodiazepines Scrn Urine Cocaine Screen Ur THC Screen COVID-19 Source SARS-CoV-2 (PCR) 07/13/20 07/13/20 07/13/20 15:16 15:16 17:24 WBC RBC Hgb Hct MCV MCH MCHC RDW Plt Count MPV Immature Gran % Neutrophils % Lymphocytes % Monocytes % Eosinophils % Basophils % Nucleated RBC % Absolute Neutrophils Absolute Lymphocytes Absolute Monocytes Absolute Eosinophils Absolute Basophils PT INR APTT VBG Lactate Sodium Potassium Chloride Carbon Dioxide Anion Gap BUN Creatinine Estimated GFR/1.73 m2 Glucose Calcium Magnesium Total Bilirubin AST ALT Alkaline Phosphatase C-Reactive Protein Total Protein Albumin Lipase Procalcitonin TSH Urine Color Yellow Urine Clarity Clear Urine pH >= 9.0 H Ur Specific Valley 1.020 Urine Protein Trace H Urine Ketones Negative Urine Blood Trace-intact H Urine Nitrite Negative Urine Bilirubin Negative Urine Urobilinogen 0.2 Ur Leukocyte Esterase Negative Urine RBC 0-2 Urine WBC Negative Ur Epithelial Cells Many Urine Crystals Negative Urine Bacteria Negative Urine Casts Negative Urine Mucus Negative Urine Other Negative Ur Culture Indicated? No/sq. contamination Urine Glucose 100 Urine Opiates Screen Positive A Urine Methadone Screen Negative Ur Barbiturates Screen Negative Ur Tricyclics Screen Negative Ur Amphetamines Screen Negative U Benzodiazepines Scrn Negative Urine Cocaine Screen Negative Ur THC Screen Positive A COVID-19 Source Nasal/nares SARS-CoV-2 (PCR) Negative 07/13/20 07/13/20 07/13/20 17:55 17:55 17:55 WBC RBC Hgb Hct MCV MCH MCHC RDW Plt Count MPV Immature Gran % Neutrophils % Lymphocytes % Monocytes % Eosinophils % Basophils % Nucleated RBC % Absolute Neutrophils Absolute Lymphocytes Absolute Monocytes Absolute Eosinophils Absolute Basophils PT INR APTT VBG Lactate 4.6 H* Sodium Potassium Chloride Carbon Dioxide Anion Gap BUN Creatinine Estimated GFR/1.73 m2 Glucose Calcium Magnesium Total Bilirubin AST ALT Alkaline Phosphatase C-Reactive Protein 0.08 Total Protein Albumin Lipase Procalcitonin < 0.1 TSH Urine Color Urine Clarity Urine pH Ur Specific [place] Urine Protein Urine Ketones Urine Blood Urine Nitrite Urine Bilirubin Urine Urobilinogen Ur Leukocyte Esterase Urine RBC Urine WBC Ur Epithelial Cells Urine Crystals Urine Bacteria Urine Casts Urine Mucus Urine Other Ur Culture Indicated? Urine Glucose Urine Opiates Screen Urine Methadone Screen Ur Barbiturates Screen Ur Tricyclics Screen Ur Amphetamines Screen U Benzodiazepines Scrn Urine Cocaine Screen Ur THC Screen COVID-19 Source SARS-CoV-2 (PCR) 07/13/20 07/14/20 07/14/20 22:13 01:00 06:11 WBC RBC Hgb Hct MCV MCH MCHC RDW Plt Count MPV Immature Gran % Neutrophils % Lymphocytes % Monocytes % Eosinophils % Basophils % Nucleated RBC % Absolute Neutrophils Absolute Lymphocytes Absolute Monocytes Absolute Eosinophils Absolute Basophils PT 17.3 H INR 1.7 H APTT VBG Lactate 4.8 H* Sodium Potassium Chloride Carbon Dioxide Anion Gap BUN Creatinine Estimated GFR/1.73 m2 Glucose Calcium Magnesium Total Bilirubin AST ALT Alkaline Phosphatase C-Reactive Protein Total Protein Albumin Lipase Procalcitonin TSH Urine Color Yellow Urine Clarity Clear Urine pH 8.5 H Ur Specific [place] 1.020 Urine Protein 30 H Urine Ketones Negative Urine Blood Trace-intact H Urine Nitrite Negative Urine Bilirubin Negative Urine Urobilinogen 0.2 Ur Leukocyte Esterase Negative Urine RBC 0-2 Urine WBC Negative Ur Epithelial Cells Negative Urine Crystals Negative Urine Bacteria Negative Urine Casts Negative Urine Mucus Negative Urine Other Ur Culture Indicated? C&s done as ordered Urine Glucose Negative Urine Opiates Screen Urine Methadone Screen Ur Barbiturates Screen Ur Tricyclics Screen Ur Amphetamines Screen U Benzodiazepines Scrn Urine Cocaine Screen Ur THC Screen COVID-19 Source SARS-CoV-2 (PCR) 07/14/20 07/14/20 07/14/20 06:11 06:11 06:11 WBC 16.14 H RBC 4.74 Hgb 13.6 Hct 40.5 MCV 85.4 MCH 28.7 MCHC 33.6 RDW 14.1 Plt Count 282 MPV 11.3 H Immature Gran % 0.6 Neutrophils % 88.6 Lymphocytes % 6.1 Monocytes % 4.6 Eosinophils % 0.0 Basophils % 0.1 Nucleated RBC % 0 Absolute Neutrophils 14.30 H Absolute Lymphocytes 0.98 L Absolute Monocytes 0.74 Absolute Eosinophils 0.00 Absolute Basophils 0.02 PT INR APTT VBG Lactate 2.3 H* Sodium 136 Potassium 3.1 L Chloride 100 Carbon Dioxide 20.6 L Anion Gap 15.4 H BUN 10 Creatinine 1.1 H Estimated GFR/1.73 m2 54.74 Glucose 115 H Calcium 8.5 Magnesium Total Bilirubin 0.6 AST 16 ALT 36 Alkaline Phosphatase 54 C-Reactive Protein Total Protein 7.3 Albumin 4.1 Lipase Procalcitonin TSH 0.95 Urine Color Urine Clarity Urine pH Ur Specific [place] Urine Protein Urine Ketones Urine Blood Urine Nitrite Urine Bilirubin Urine Urobilinogen Ur Leukocyte Esterase Urine RBC Urine WBC Ur Epithelial Cells Urine Crystals Urine Bacteria Urine Casts Urine Mucus Urine Other Ur Culture Indicated? Urine Glucose Urine Opiates Screen Urine Methadone Screen Ur Barbiturates Screen Ur Tricyclics Screen Ur Amphetamines Screen U Benzodiazepines Scrn Urine Cocaine Screen Ur THC Screen COVID-19 Source SARS-CoV-2 (PCR) 07/14/20 06:11 WBC RBC Hgb Hct MCV MCH MCHC RDW Plt Count MPV Immature Gran % Neutrophils % Lymphocytes % Monocytes % Eosinophils % Basophils % Nucleated RBC % Absolute Neutrophils Absolute Lymphocytes Absolute Monocytes Absolute Eosinophils Absolute Basophils PT INR APTT VBG Lactate Sodium Potassium Chloride Carbon Dioxide Anion Gap BUN Creatinine Estimated GFR/1.73 m2 Glucose Calcium Magnesium 1.6 L Total Bilirubin AST ALT Alkaline Phosphatase C-Reactive Protein Total Protein Albumin Lipase Procalcitonin TSH Urine Color Urine Clarity Urine pH Ur Specific [place] Urine Protein Urine Ketones Urine Blood Urine Nitrite Urine Bilirubin Urine Urobilinogen Ur Leukocyte Esterase Urine RBC Urine WBC Ur Epithelial Cells Urine Crystals Urine Bacteria Urine Casts Urine Mucus Urine Other Ur Culture Indicated? Urine Glucose Urine Opiates Screen Urine Methadone Screen Ur Barbiturates Screen Ur Tricyclics Screen Ur Amphetamines Screen U Benzodiazepines Scrn Urine Cocaine Screen Ur THC Screen COVID-19 Source SARS-CoV-2 (PCR)
[2020-07-14 14:27] LABS: Lactate 2.1 mmol/L (0.6-1.4)
[2020-07-14 14:33] LABS: Anion Gap 14.7 mmol/L (3-11); BUN 10 mg/dL (7-18); CO2 20.3 mmol/L (21.0-32.0); CREATININE 1.1 mg/dL (0.55-1.02); Calcium 9.2 mg/dL (8.5-10.1); Chloride 104 mmol/L (98-107); Estimated GFR 54.74 (mL/min/1.73m2); Glucose 116 mg/dL (74-106); Potassium 3.8 mmol/L (3.5-5.1); Sodium 139 mmol/L (136-145)
[2020-07-14] MEDS: POTASSIUM CHLORIDE/0.9% NACL 1,000 ML 125 MEQ IV (15:16)
[2020-07-14] MEDS: Sucralfate 1 GM TAB PO ×2 (16:41→22:02)
[2020-07-14] MEDS: Warfarin 5 MG TAB PO ×2 (21:09→23:12)
[2020-07-14] MEDS: Magnesium Oxide 400 MG TAB PO (21:31)
[2020-07-14] MEDS: Topiramate 100 MG TAB 400 MG PO (22:02)
[2020-07-14] MEDS: Pantoprazole 40 MG VIAL IVP (22:02)
[2020-07-14] MEDS: FAMOTIDINE 20 MG/50 ML BAG 200 MG IVPB (22:26)
[2020-07-15 00:06] VITALS: BP 182/106
[2020-07-15] MEDS: Normal Saline Flush 10 ML SYR IVP ×5 (00:13→21:32)
[2020-07-15] MEDS: diazePAM 10 MG/2 ML SYR 5 MG IVP (00:14)
[2020-07-15] MEDS: POTASSIUM CHLORIDE/0.9% NACL 1,000 ML 125 MEQ IV ×3 (00:23→21:34)
[2020-07-15 01:20] VITALS: BP 184/92; PULSE 65; RESP 22; TEMP 37.2; O2SAT 98
[2020-07-15] MEDS: HYDROmorphone 2 MG/ML VIAL 0.5 MG IVP ×3 (02:18→20:19)
[2020-07-15] MEDS: Metoclopramide 10 MG/2 ML VIAL IVP ×2 (02:19→11:14)
[2020-07-15] MEDS: CIPROFLOXACIN 400 MG/200 ML BAG 200 MG IVPB ×2 (02:20→14:52)
[2020-07-15 02:48] VITALS: BP 160/99; PULSE 63; RESP 20; TEMP 37.4; O2SAT 98
[2020-07-15] MEDS: Levothyroxine 125 MCG TAB PO (06:27)
[2020-07-15] MEDS: Ondansetron 4 MG/2 ML VIAL IVP (06:49)
[2020-07-15 07:12] LABS: Abs Immature Grans 0.06 10^3/uL (0.0-0.06); Absolute Basophil Count 0.04 10^3/uL (0.0-0.2); Absolute Eosinophil Count 0.01 10^3/uL (0.0-0.7); Absolute Lymphocyte Count 1.99 10^3/uL (1.2-3.4); Absolute Neutrophil Count 8.91 10^3/uL (1.2-6.7); Basophils % 0.3; Eosinophils % 0.1; HCT 40.1 % (36.0-46.0); HGB 13.1 g/dL (11.2-15.7); Immature Grans % 0.5; Lymphocytes % 16.3; MCH 28.9 pg (27.0-33.0); MCHC 32.7 % (32.0-36.0); MCV 88.3 fL (80-95); MPV 11.1 fL (8.0-11.0); Monocytes % 9.8; Nucleated RBC 0 %; Platelet Count 290 10^3/uL (130-400); RBC 4.54 10^6/uL (3.93-5.22); RDW 14.4 % (11.7-14.6); RDW-SD 46.4 fL
[2020-07-15] MEDS: ACETAMINOPHEN 1,000 MG/100 ML BTL 400 MG IVPB (07:15)
[2020-07-15] MEDS: Mometasone 220 MCG 14 DOSE INHALER IH ×2 (07:15→20:05)
[2020-07-15 07:23] LABS: Prothrombin Time 19.6 sec (9.3-11.0)
[2020-07-15 07:24] LABS: BUN 14 mg/dL (7-18); CREATININE 1.1 mg/dL (0.55-1.02); Calcium 7.9 mg/dL (8.5-10.1); Chloride 108 mmol/L (98-107); Estimated GFR 54.74 (mL/min/1.73m2); Glucose 103 mg/dL (74-106); Magnesium 2.6 mg/dL (1.8-2.4); Potassium 4.1 mmol/L (3.5-5.1); Sodium 138 mmol/L (136-145)
[2020-07-15 07:25] LABS: C-Reactive Protein < 0.05 mg/dL (0.0-0.3)
[2020-07-15 07:38] LABS: Iron 157 ug/dL (50-170); Total Iron Binding Capacity 359 ug/dL (250-450); Transferrin Sat 44 % (15-50)
[2020-07-15 07:42] VITALS: BP 183/95; PULSE 64; RESP 17; TEMP 36.7; O2SAT 100
[2020-07-15 07:52] LABS: Ferritin 41 ng/mL (8-252)
[2020-07-15 08:04] LABS: Vitamin B12 252 pg/mL (193-986)
[2020-07-15] MEDS: metroNIDAZOLE 500 MG/100 ML BAG 100 MG IVPB ×2 (08:58→17:05)
[2020-07-15] MEDS: Sucralfate 1 GM TAB PO ×2 (08:59→21:32)
--- NOTE | 2020-07-15 12:24 | PGE_ITS ---
Documented by User: Melissa Watson NP 07/15/20 12:58 Date of Service Date of service: 07/15/20 Time of Service: 12:24 Assessment and Plan Assessment and plan (1) Enterocolitis: Start date: 07/15/20 Start time: 12:49 Status: Acute Assessment and plan: High suspicion for possible inflammatory bowel disease or a microscopic colitis. She has been afebrile for over 24 hours leukocytosis now at 12 down from 17 continue IV cipro and flagyl Blood culture with no growth after 24 hours. She needs outpatient follow up for c-scope and EGD which she says that she had an appointment in [place], [place] last February but cancelled when her boyfriend suddenly. She indicated that she is ready to make that follow up appointment. unable to tolerate po, will make NPO and advance as tolerated (2) Gastroesophagitis: Start date: 07/15/20 Start time: 12:54 Status: Acute Assessment and plan: cont. pepcid, protonix and carafate Will magic mouthwash if needed (3) Intractable nausea and vomiting: Start date: 07/15/20 Start time: 12:55 Status: Acute Assessment and plan: doing better w/ benadryl, reglan, zofran and valium. will advance diet as tolerated. I am not convinced that this is all attributable to her cannabis use (4) Chronic anticoagulation: Start date: 07/15/20 Start time: 12:56 Status: Chronic Assessment and plan: cont. warfarin. INR is 1.7 today. She is on warfarin 5 mg nightly (5) Factor V Leiden mutation: Start date: 07/15/20 Start time: 12:56 Status: Chronic Assessment and plan: as above Above case discussed with Dr. Mendoza Subjective Subjective Patient reports: still having pain and vomiting Interval history since last seen: Not feeling well, actively vomiting and having pain, does not well. She also states she does not feel well. Leukocytosis is improving, BP is elevated, likely in setting of pain, will add pain medication to regimen, she is on hydrocodone as outpatient. She was actively vomiting while provider present. Will switch to inpatient status. Exam Narrative Exam Narrative: Middle age, redheaded female who is alert and oriented x 3, sitting on edge of bed, appears to not be feeling well actively vomiting with pain to abd, bs hypo x 4 quads Lungs clear Cor: RRR Extrem: no edema. Objective Last Vital Signs Temp 36.7 C 07/15/20 07:42 Pulse 64 07/15/20 07:42 Resp 17 07/15/20 07:42 BP 183/95 H 07/15/20 07:42 Pulse Ox 100 07/15/20 07:42 Laboratory Results - last 24 hr 07/14/20 07/14/20 07/15/20 14:07 14:07 06:40 WBC RBC Hgb Hct MCV MCH MCHC RDW Plt Count MPV Immature Gran % Neutrophils % Lymphocytes % Monocytes % Eosinophils % Basophils % Nucleated RBC % Absolute Neutrophils Absolute Lymphocytes Absolute Monocytes Absolute Eosinophils Absolute Basophils PT 19.6 H INR 2.0 H VBG Lactate 2.1 H Sodium 139 Potassium 3.8 D Chloride 104 Carbon Dioxide 20.3 L Anion Gap 14.7 H BUN 10 Creatinine 1.1 H Estimated GFR/1.73 m2 54.74 Glucose 116 H Calcium 9.2 Magnesium Iron TIBC Transferrin % Sat Ferritin C-Reactive Protein Vitamin B12 07/15/20 07/15/20 07/15/20 06:40 06:40 06:40 WBC 12.20 H RBC 4.54 Hgb 13.1 Hct 40.1 MCV 88.3 MCH 28.9 MCHC 32.7 RDW 14.4 Plt Count 290 MPV 11.1 H Immature Gran % 0.5 Neutrophils % 73.0 Lymphocytes % 16.3 Monocytes % 9.8 Eosinophils % 0.1 Basophils % 0.3 Nucleated RBC % 0 Absolute Neutrophils 8.91 H Absolute Lymphocytes 1.99 Absolute Monocytes 1.20 H Absolute Eosinophils 0.01 Absolute Basophils 0.04 PT INR VBG Lactate Sodium 138 Potassium 4.1 Chloride 108 H Carbon Dioxide 18.0 L Anion Gap 12.0 H BUN 14 Creatinine 1.1 H Estimated GFR/1.73 m2 54.74 Glucose 103 Calcium 7.9 L Magnesium 2.6 H Iron 157 TIBC 359 Transferrin % Sat 44 Ferritin 41 C-Reactive Protein < 0.05 Vitamin B12 07/15/20 06:40 WBC RBC Hgb Hct MCV MCH MCHC RDW Plt Count MPV Immature Gran % Neutrophils % Lymphocytes % Monocytes % Eosinophils % Basophils % Nucleated RBC % Absolute Neutrophils Absolute Lymphocytes Absolute Monocytes Absolute Eosinophils Absolute Basophils PT INR VBG Lactate Sodium Potassium Chloride Carbon Dioxide Anion Gap BUN Creatinine Estimated GFR/1.73 m2 Glucose Calcium Magnesium Iron TIBC Transferrin % Sat Ferritin C-Reactive Protein Vitamin B12 252 Documented by User: Selvin Mendoza 07/15/20 15:25
[2020-07-15] MEDS: diphenhydrAMINE 50 MG/ML VIAL IVP ×2 (14:52→20:03)
[2020-07-15 16:18] VITALS: BP 124/84; PULSE 65; RESP 18; TEMP 36.5; O2SAT 97
--- NOTE | 2020-07-15 19:18 | PDOC.CMPRO ---
- If Service Date Differs Date of service: 07/15/20 Time of Service: 19:18 Care Management Progress Note S/O: Suzie was sitting up in bed when CM met with her. She reported that she is still not feeling well. She stated that she was happy to be moved to a room with a shower, but there was no hot water. She is no longer on CDiff precautions, therefore is able to go to the community shower 3x/day, per provider. She stated that her health has been declining over the past two years, and her stress has been high due to many social factors. She does see a therapist in [place], who she has a good relationship with. She continues IV abx treatment, unsure of the course at this time. CM will continue to follow. A: Suzie is a 40 year old female admitted to [facility] on 07/13/20 with intractable vomiting and nausea. P: Anticipate Suzie will return home when medically cleared. Her son will drive her home via private vehicle when ready. She will follow up with her PCP and discharge plan of care. CM will continue to follow.
[2020-07-15] MEDS: Warfarin 5 MG TAB 10 MG PO (20:02)
[2020-07-15] MEDS: Pantoprazole 40 MG VIAL IVP (21:32)
[2020-07-15] MEDS: Topiramate 100 MG TAB 400 MG PO (21:32)
[2020-07-15] MEDS: FAMOTIDINE 20 MG/50 ML BAG 200 MG IVPB (21:34)
[2020-07-15 23:35] VITALS: BP 137/84; PULSE 60; RESP 17; TEMP 36.8; O2SAT 97
[2020-07-16] MEDS: metroNIDAZOLE 500 MG/100 ML BAG 100 MG IVPB (00:09)
[2020-07-16] MEDS: diphenhydrAMINE 50 MG/ML VIAL IVP (02:04)
[2020-07-16] MEDS: CIPROFLOXACIN 400 MG/200 ML BAG 200 MG IVPB (02:04)
--- NOTE | 2020-07-16 04:49 | NUR.NOTE ---
reviewed risks of leaving AMA- pt reports she feels better and just wants to go home. No acute distress noted. Pt ambulating with steady gait- smiled and waved prior to leaving floor. Nursing Note:
[2020-07-16 15:43] LABS: Calcitonin <5.0 pg/mL (<=7.6)
[2020-07-19 16:25] LABS: 1,25-Dihydroxyvitamin D 70 pg/mL (18-78)
--- NOTE | 2020-07-19 18:14 | W.PM.DS.N ---
Date of service: 07/16/20 Time of Service: 08:00 DS: Diagnosis Discharge Diagnosis (1) Enterocolitis: Status: Acute (2) Gastroesophagitis: Status: Acute (3) Intractable nausea and vomiting: Status: Acute (4) Chronic anticoagulation: Status: Chronic (5) Factor V Leiden mutation: Status: Chronic Discharge Plan Disposition Patient Disposition: AGAINST MEDICAL ADVICE Condition: Serious Discharge Details Reason For Visit: INTRACTABLE VOMITING AND NAUSEA Admit Date/Time: 07/15/20 09:55 Admit Provider: Selvin Mendoza Attending Provider: Selvin Mendoza Primary Care Provider: Patrica Lopez [facility] Course Hospital Course: Patient was admitted July 13, 2020 because of intractable nausea and vomiting and epigastric abdominal pain. See admission H&P from 07/13/2020 for details. Patient was treated with antiemetics and IV fluids and IV Protonix. She was started empirically on ciprofloxacin and Flagyl for what appeared to be an enterocolitis. She is suspected of having an inflammatory bowel disease but has not had proper work-up such as an EGD and colonoscopy. Because the CT scan showed significant mucosal thickening of the small bowel and colon in addition to inflammatory changes of her esophagus and stomach was felt that the burning sensation in her chest and epigastrium was secondary to a gastroesophagitis therefore she was treated with Protonix and Carafate we added Pepcid and Magic mouthwash as well. Her nausea was treated with Benadryl and Reglan and Zofran and Valium. Her INR was monitored and her warfarin was adjusted which she takes chronically for factor V Leiden mutation. Patient had been requesting narcotic analgesics for her GI discomfort and when parenteral narcotics were refused the patient left the hospital AGAINST MEDICAL ADVICE in the clinical staff anesthesiologist hours of July 16, 2020. No prescriptions were given to the patient and the nocturnal hospitalist Dr. Joyner was notified by nursing staff of the patient's intent to leave. Prior to her leaving the hospital future work-up had been discussed with the patient and it was recommended that she make and keep her follow-up with a GI specialist to have upper and lower endoscopy done to obtain a definitive diagnosis. Her recurrent episodes of nausea and vomiting may also be associated with her chronic cannabis use however the CT findings suggest anatomical pathology such as inflammatory bowel disease. Home Meds and New Rx's Prescriptions: No Action topiramate [Topamax] 200 mg tablet 400 mg PO HS Qty: 180 RF: 4 metoclopramide HCl [Reglan] 5 mg tablet 5 mg PO HS Qty: 30 RF: 3 sucralfate 1 gram tablet 1 g PO AC & HS Qty: 120 RF: 2 Citracal Plus Bone Density 1 EACH tablet 1 ea PO BID RF: 0 cyproheptadine 4 MG tablet 4 mg PO HS Qty: 90 RF: 3 ipratropium-albuterol 3 ML solution for nebulization 3 ml Inhalation Q4H PRN MDD 6 times PRNQty: 1 RF: 0 albuterol sulfate 1.25 mg/3 mL solution for nebulization 1.25 mg Inhalation Q6H PRN (Reason: shortness of breath or wheezing) Qty: 75 RF: 3 acidophilus-pectin, citrus 25 million cell -100 mg tablet 2 tab PO TID Qty: 90 RF: 4 alcohol swabs [Alcohol Wipes] Pads, Medicated See Rx Instructions TP .COMPLEX Qty: 300 RF: 4 triamcinolone acetonide 0.1 % cream 1 applic Topical BID PRN (Reason: eczema) Qty: 60 RF: 1 methylphenidate HCl 20 mg tablet 20 mg PO TID MDD 60 mg Qty: 84 RF: 0 fexofenadine 180 mg tablet 180 mg PO DAILY Qty: 90 RF: 4 warfarin 5 mg tablet 5 mg PO PER PROTOCOL Qty: 90 RF: 4 epinephrine [EpiPen 2-Nino] 0.3 mg/0.3 mL auto-injector 0.3 mg IM ONCE Qty: 1 RF: 1 Flovent HFA 220 mcg/actuation HFA aerosol inhaler 2 inh Inhalation BID Qty: 3 RF: 4 levothyroxine 125 mcg tablet 125 mcg PO .AM Qty: 90 RF: 0 omeprazole 40 mg capsule,delayed release(DR/EC) 40 mg PO DAILY Qty: 90 RF: 4 clotrimazole-betamethasone 1-0.05 % cream 1 applic Topical BID PRN (Reason: rash) Qty: 45 RF: 1 albuterol sulfate [ProAir HFA] 90 mcg/actuation HFA aerosol inhaler 2 puff Inhalation Q6H PRN MDD 6 puffs Qty: 3 RF: 4 ondansetron HCl 8 mg tablet 8 mg PO BID PRN (Reason: nausea and vomiting) Qty: 20 RF: 0 sumatriptan succinate 6 mg/0.5 mL pen injector 6 mg subcut ONCE MDD 12mg PRN (Reason: migraine headache) Qty: 90 RF: 1 fluoxetine 10 mg capsule 10 mg PO DAILY RF: 0 clonazepam 1 mg tablet 1 mg PO TID PRN (Reason: anxiety) Qty: 90 RF: 0 hydrocodone-acetaminophen 5-325 mg tablet 1 tab PO BID MDD 2 tabs PRN (Reason: pain) Qty: 60 RF: 0 (DME) Space Chamber Plus 1 EACH spacer 1 ea Miscellaneous Q4H PRN Qty: 1 RF: 0 Narcan 4 MG spray,non-aerosol 4 mg NS DAILY PRN PRNQty: 2 RF: 0 Nucynta 50 mg tablet 50 mg PO Q6H PRNQty: 10 RF: 0 diphenhydramine HCl [Benadryl Allergy] 25 mg tablet 100 mg PO HS RF: 0 diphenhydramine HCl 25 mg Capsule 25 mg PO Q4H PRN PRNQty: 20 RF: 0 lorazepam 2 mg/mL concentrate 1 mg PO Q6H PRNQty: 30 RF: 0 Discharge Data Discharge Date/Time-TO BE ENTERED AT DEPARTURE: 07/16/20 04:21 Discharge Comment: reviewed risks of leaving AMA DS: Summary Time Spent with Patient providing and/or coordinating discharge services: Less than 30 minutes Status at Discharge Functional status at discharge: independent ambulation Overall status at discharge: patient is not back to baseline Mental Status: mental status grossly normal Speech and Movement: speech and movement normal Mood: congruent mood Affect: normal affect Exam Psych Mental Status: mental status grossly normal Speech and Movement: speech and movement normal Mood: congruent mood Affect: normal affect DS: Data Vitals/I&O Vitals and I&O: Vital Signs Temperature 36.8 C 07/15/20 23:35 Temperature Source Skin 07/15/20 23:35 Pulse 60 07/15/20 23:35 Pulse Rhythm Regular 07/15/20 20:00 Respiratory Rate 17 07/15/20 23:35 Respiratory Effort Non-Labored 07/15/20 20:00 Respiratory Depth Normal 07/15/20 20:00 Respiratory Pattern Normal 07/15/20 20:00 Blood Pressure 137/84 07/15/20 23:35 Blood Pressure Position Sitting 07/13/20 13:49 Pulse Oximetry 97 07/15/20 23:35 Oxygen Delivery Method Room Air 07/15/20 23:35 Oxygen Flow Rate 0 07/15/20 23:35 Pain Level 6 07/16/20 00:08 Comment 07/15/20 00:06 Data Completed and Pending Labs on day of discharge: Labs from last 24 hours 07/15/20 06:40 Vit D 1,25-Dihydroxy 70 PFSH Medical History Acute deep vein thrombosis (DVT) of left lower extremity ADHD (attention deficit hyperactivity disorder), 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) Asthma (11/08/12) B12 deficiency Candidiasis Cannabis abuse with cannabis-induced disorder Cellulitis of left leg Chronic anticoagulation Chronic anticoagulation On coumadin Chronic back pain greater than 3 months duration (12/29/14) Cyst of fallopian tube Depression Factor V Leiden mutation GERD (gastroesophageal reflux disease) Hematuria History of DVT (deep vein thrombosis) Hypothyroidism Iatrogenic pulmonary embolism and infarction Intractable vomiting with nausea Left buttock abscess Left lower quadrant pain (01/27/12) Migraine headache Nephrolithiasis Orbital cellulitis on left Other enthesopathies, not elsewhere classified (03/21/16) Neck Panic disorder (03/21/16) Preseptal cellulitis of left eye Recurrent deep vein thrombosis (DVT) Right lower quadrant abdominal pain inflamed/ruptured fallopian tube on the right Thrombosis of arteries of lower extremity Vaginal candidiasis Surgical History Abdominal hysterectomy (~2009) 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) Arthroplasty of knee (~1999) left Bilateral salpingectomy with oophorectomy (~2008) Cervical Conization/LEEP LEEP 2003 [facility] BX 2003 Cholecystectomy History of arthroscopy of knee S/P appendectomy (12/24/17) Dr Veliz - Car [place] and car excision of R fallopian tube remnant Status post cholecystectomy Status post LEEP (loop electrosurgical excision procedure) of cervix THUMB RECONSTRUCTION left; in childhood Social History Smoking/Tobacco Use Status: Never Smoking risk assessment performed?: Yes Alcohol Intake: current Alcohol Intake frequency: 0-2 drinks per day Drug use: Daily Substance use type: marijuana Current gender identity: female Do you feel safe at home: Yes Do you feel safe in your relationship?: Yes Additional Social history: Patient is and with one child.
== END 2020-07-16 04:21 | disposition left against medical advice (07) | DRG 392 ==
LOC: ER 17:48 → MS 18:52
PROVIDERS: Admitting Provider Internal Medicine; Emergency Provider Physician Assistant; PCP Family Medicine; Visit Provider Internal Medicine
DX: K52.9 Noninfective gastroenteritis and colitis, unspecified (principal); D68.51 Activated protein C resistance; Z86.718 Personal history of other venous thrombosis and embolism; F12.10 Cannabis abuse, uncomplicated; G43.909 Migraine, unspecified, not intractable, without status migrainosus; K21.00 Gastro-esophageal reflux disease with esophagitis, without bleeding; E03.9 Hypothyroidism, unspecified; J45.909 Unspecified asthma, uncomplicated; E86.0 Dehydration; D72.823 Leukemoid reaction; F90.0 Attention-deficit hyperactivity disorder, predominantly inattentive type; E53.8 Deficiency of other specified B group vitamins; G89.29 Other chronic pain; M54.9 Dorsalgia, unspecified; F41.0 Panic disorder [episodic paroxysmal anxiety]; Z79.01 Long term (current) use of anticoagulants; Z20.822 Contact with and (suspected) exposure to COVID-19
CPT/HCPCS: 36415; 80048; 80053; 80307; 83690; 84145; 87040; 87635; 94640; 96361; 96365; 96375; 99220; 99225; 99233; 99285; NC; 71046; 74177; 81003; 81015; 82308; 82607; 82652; 82728; 83540; 83550; 83605; 83735; 84443; 85025; 85610; 85730; 86140; 87086; G0378; J0131; J0744; J0780; J1200; J2405; J2765; J3360; J3475; J3480

== ENCOUNTER 2020-08-16 14:08 | Inpatient (IN) | payer MEDICARE, MEDICAID, SELFPAY ==
[2020-08-16 14:25] VITALS: BP 108/77; PULSE 80; RESP 20; TEMP 36.3; O2SAT 98
--- NOTE | 2020-08-16 15:14 | ED.GENADUL_ITS ---
Discharge Plan Disposition Patient Disposition: [facility] INPATIENT Condition: Improving Discharge Details Clinical Impression: Cellulitis, Supratherapeutic INR Admit Date/Time: 08/16/20 18:07 Admit Provider: Bry Murillo Attending Provider: Bry Murillo Primary Care Provider: Patrica Lopez ED Provider: Selvin Sandhu Discharge Data Discharge Date/Time-TO BE ENTERED AT DEPARTURE: 08/16/20 18:37 Medical Decision Making <Nguyen Jiang - Last Filed: 08/17/20 15:02> 40-year-old female presents to the ER with chief complaint of skin wounds which she report has been in place for approximately 1 week. She has an open wound noted to her left inner gluteal fold and the right mid axillary chest area which is radiating up into her right armpit. She reports that the wounds have been draining clear sanguinous fluid she does endorse surrounding erythema and pain, denies any fever or chills no nausea vomiting she states that originally she thought that this was a yeast infection and was requesting Diflucan. Since then she has started with a generalized rash which began last night. Patient states that she has had an episode like this in the past she does have a history of MRSA and states that she has had to been admitted with IV antibiotics. She reports that she has been applying topical antibiotic ointment and did take some [id number]-[id number] Monistat 3-day dose for what she believed was a yeast infection. Upon chart review she was admitted for a possible perirectal abscess in March 2020. She has a past medical history of factor V Leiden, is on chronic anticoagulation, depression, GERD, hypothyroidism, DVT, vaginal candidiasis, asthma, ADHD. At this time labs are pending, patient has received insertion of a PICC line at patient request. CBC, CMP, lactate, blood cultures, PT/INR and urinalysis are ordered and are pending at this time. Differential diagnosis includes but not limited to MRSA, cellulitis, varicella, dermatitis or another integumentary abnormality. Care is to be handed off to oncoming provider TYRON Mai pending labs and disposition. Discussed patient case in details with him he verbalizes understanding. Wound culture was obtained by myself to right axillary open wound. <TYRON Casanova - Last Filed: 08/16/20 18:36> This is a 40-year-old female, complicated past medical history, who was signed out to me by my colleague SHAY Jiang. Please see her initial HPI and examination. In short, patient developed cellulitis to her right axilla and left buttocks over the past week, worsening now. Developed a body wide pruritic rash over the past 24 hours, took Benadryl with some relief. At time of signout laboratory values are pending. I personally evaluated the patient, she is resting comfortably. Appears nontoxic, no acute distress. She does have a body wide blanchable erythematous rash that is excoriated in some areas. She also has 2 lesions once to the left buttocks approximately 8 cm, 1 to the right axilla approximately 3 cm with surrounding erythema, warmth, tenderness. Draining clear fluid. Clinically it would appear as though she has cellulitis in 2 locations and then secondarily developed another rash. She already has a PICC line in place, multiple antibiotic allergies, has required long-term IV antibiotic infusions for previous cellulitis secondary to MRSA. Laboratory values are unremarkable except for an elevated INR of 5.9. 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 Although she is afebrile, has a normal white count, I do believe that given her complicated past medical history, already has a PICC line, her INR is supratherapeutic, I feel like admission for IV antibiotics and observation for a minimum of 24 hours is certainly reasonable to be sure that she does not decompensate. Patient given IV vancomycin. Wound and blood cultures pending. Will also obtain a Covid test. Case discussed with Dr. Murillo who is agreeable to admission. I will place the initial holding orders. HPI <Nguyen Jiang - Last Filed: 08/17/20 15:02> General Mode of arrival: ambulatory . Date/Time Provider Initiated Documentation: 08/16/20 14:12 . Limitations to Documentation: no limitations . Information obtained by: patient . HPI Narrative: 40-year-old female presents to the ER with chief complaint of skin wounds which she report has been in place for approximately 1 week. She has an open wound noted to her left inner gluteal fold and the right mid axillary chest area which is radiating up into her right armpit. She reports that the wounds have been draining clear sanguinous fluid she does endorse surrounding erythema and pain, denies any fever or chills no nausea vomiting she states that originally she thought that this was a yeast infection and was requesting Diflucan. Since then she has started with a generalized rash which began last night. Patient states that she has had an episode like this in the past she does have a history of MRSA and states that she has had to been admitted with IV antibiotics. She reports that she has been applying topical antibiotic ointment and did take some [id number] Monistat 3-day dose for what she believed was a yeast infection. Upon chart review she was admitted for a possible perirectal abscess in March 2020. She has a past medical history of factor V Leiden, is on chronic anticoagulation, depression, GERD, hypothyroidism, DVT, vaginal candidiasis, asthma, ADHD. Related Data Home Medications Medication Instructions Recorded Confirmed Citracal Plus Bone Density 1 ea PO BID tab-cap 11/09/12 08/16/20 Space Chamber Plus #1 spacer 05/01/14 04/09/20 cyproheptadine 4 mg PO HS #90 tab-cap 06/04/16 08/16/20 Narcan 4 mg NS DAILY PRN PRN #2 spray 12/08/16 08/16/20 albuterol sulfate 1.25 mg/3 mL 1.25 mg INHALATION Q6H PRN #75 ml 01/12/19 08/16/20 solution for nebulization alcohol swabs See Rx Instructions TP .COMPLEX 07/11/19 08/16/20 #300 each triamcinolone acetonide 0.1 % 1 applic TOPICAL BID PRN #60 gm 09/05/19 08/16/20 topical cream methylphenidate HCl 20 mg tablet 20 mg PO TID #84 tab-cap MDD 60 mg 10/20/19 08/16/20 fexofenadine 180 mg tablet 180 mg PO DAILY #90 tab-cap 11/01/19 08/16/20 diphenhydramine HCl [Benadryl 100 mg PO HS 12/13/19 08/16/20 Allergy] diphenhydramine HCl 25 mg PO Q4H PRN PRN #20 cap 12/15/19 08/16/20 sucralfate 1 gram tablet 1 g PO AC & HS #120 tab 12/30/19 08/16/20 warfarin 5 mg tablet 5 mg PO PER PROTOCOL #90 tab 02/09/20 08/16/20 clotrimazole-betamethasone 1 1 applic TOPICAL BID PRN #45 gm 02/22/20 08/16/20 %-0.05 % topical cream epinephrine 0.3 mg/0.3 mL 0.3 mg IM ONCE #1 ea 02/22/20 08/16/20 injection, auto-injector fluticasone propionate 220 2 inh INHALATION BID #3 inhaler 02/22/20 08/16/20 mcg/actuation HFA aerosol inhaler levothyroxine 125 mcg tablet 125 mcg PO .AM #90 tab 02/22/20 08/16/20 omeprazole 40 mg capsule,delayed 40 mg PO DAILY #90 cap 02/22/20 08/16/20 release albuterol sulfate 90 mcg/actuation 2 puff INHALATION Q6H PRN #3 03/07/20 08/16/20 aerosol inhaler inhaler MDD 6 puffs ondansetron HCl 8 mg tablet 8 mg PO BID PRN #20 tab 03/07/20 08/16/20 sumatriptan succinate 6 mg/0.5 mL 6 mg SUBCUT ONCE PRN #90 syrg MDD 03/07/20 08/16/20 subcutaneous pen injector 12mg fluoxetine 10 mg capsule 20 mg PO DAILY 03/19/20 08/16/20 clonazepam 1 mg tablet 1 mg PO TID PRN #90 tab 03/20/20 08/16/20 Zyrtec 10 mg PO DAILY 08/16/20 08/16/20 acidophilus-pectin, citrus 1 tab PO DAILY 08/16/20 08/16/20 hydrocodone-acetaminophen 1 tab PO BID 08/16/20 08/16/20 ondansetron HCl [Zofran] 4 mg PO BID 08/16/20 08/16/20 polyethylene glycol 3350 [Miralax] 17 g PO DAILY PRN 08/16/20 08/16/20 promethazine 25 mg ID Q6H PRN 08/16/20 08/16/20 topiramate [Topamax] 200 mg PO BID 08/16/20 08/16/20 vitamin K2 100 mcg PO DAILY 08/16/20 08/16/20 fluconazole 150 mg PO Q3D #2 tab 08/17/20 hydroxyzine HCl 25 mg PO Q4H PRN PRN #30 tab 08/17/20 linezolid [Zyvox] 600 mg PO BID #14 tab 08/17/20 montelukast 10 mg PO QPM #30 tab 08/17/20 Previous Rx's Medication Instructions Recorded Space Chamber Plus #1 spacer 05/01/14 Narcan 4 mg NS DAILY PRN PRN #2 spray 12/08/16 albuterol sulfate 1.25 mg/3 mL 1.25 mg INHALATION Q6H PRN #75 ml 01/12/19 solution for nebulization alcohol swabs See Rx Instructions TP .COMPLEX 07/11/19 #300 each triamcinolone acetonide 0.1 % 1 applic TOPICAL BID PRN #60 gm 09/05/19 topical cream methylphenidate HCl 20 mg tablet 20 mg PO TID #84 tab-cap MDD 60 mg 10/20/19 fexofenadine 180 mg tablet 180 mg PO DAILY #90 tab-cap 11/01/19 diphenhydramine HCl 25 mg PO Q4H PRN PRN #20 cap 12/15/19 sucralfate 1 gram tablet 1 g PO AC & HS #120 tab 12/30/19 warfarin 5 mg tablet 5 mg PO PER PROTOCOL #90 tab 02/09/20 clotrimazole-betamethasone 1 1 applic TOPICAL BID PRN #45 gm 02/22/20 %-0.05 % topical cream epinephrine 0.3 mg/0.3 mL 0.3 mg IM ONCE #1 ea 02/22/20 injection, auto-injector fluticasone propionate 220 2 inh INHALATION BID #3 inhaler 02/22/20 mcg/actuation HFA aerosol inhaler levothyroxine 125 mcg tablet 125 mcg PO .AM #90 tab 02/22/20 omeprazole 40 mg capsule,delayed 40 mg PO DAILY #90 cap 02/22/20 release albuterol sulfate 90 mcg/actuation 2 puff INHALATION Q6H PRN #3 03/07/20 aerosol inhaler inhaler MDD 6 puffs ondansetron HCl 8 mg tablet 8 mg PO BID PRN #20 tab 03/07/20 sumatriptan succinate 6 mg/0.5 mL 6 mg SUBCUT ONCE PRN #90 syrg MDD 03/07/20 subcutaneous pen injector 12mg clonazepam 1 mg tablet 1 mg PO TID PRN #90 tab 03/20/20 fluconazole 150 mg PO Q3D #2 tab 08/17/20 hydroxyzine HCl 25 mg PO Q4H PRN PRN #30 tab 08/17/20 linezolid [Zyvox] 600 mg PO BID #14 tab 08/17/20 montelukast 10 mg PO QPM #30 tab 08/17/20 Allergies Allergy/AdvReac Type Severity Reaction Status Date / Time aripiprazole [From Abilify] Allergy Severe Rash, hives Verified 08/16/20 14:32 doxycycline Allergy Severe Anaphylaxsi Verified 08/16/20 14:32 s levetiracetam [From Keppra] Allergy Severe RASH/HIVES Verified 08/16/20 14:32 sulfamethoxazole Allergy Severe Hives Verified 08/16/20 14:32 venom-honey bee Allergy Severe unknown Verified 08/16/20 14:32 Penicillins Allergy Intermediate Skin Rash Verified 08/16/20 14:32 chlorhexidine Allergy Unknown unknown Verified 08/16/20 14:32 Sulfa (Sulfonamide Allergy Verified 08/16/20 14:32 Antibiotics) mold AdvReac Severe Wheezing Verified 08/16/20 14:32 oxycodone [Oxycodone] AdvReac Severe vomits Verified 08/16/20 14:32 paroxetine AdvReac Severe Irritability Verified 08/16/20 14:32 and anger dicloxacillin [Dicloxacillin] AdvReac Mild Nausea Verified 08/16/20 14:32 gabapentin AdvReac Mild hives Verified 08/16/20 14:32 prednisone AdvReac Agitation Verified 08/16/20 14:32 trazodone AdvReac shortness Verified 08/16/20 14:32 of breath verapamil [Verapamil] AdvReac Worsening Verified 08/16/20 14:32 migraine nuts Allergy Severe Anaphylaxsi Uncoded 08/16/20 14:32 s General Stated Complaint: Cellulitis RYNE: 3 Review of Systems <Nguyen Jiang - Last Filed: 08/17/20 15:02> All systems reviewed & are unremarkable except as noted in HPI and below PFSH <Nguyen Jiang - Last Filed: 08/17/20 15:02> Medical History Acute deep vein thrombosis (DVT) of left lower extremity ADHD (attention deficit hyperactivity disorder), 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) Asthma (11/08/12) B12 deficiency Candidiasis Cannabis abuse with cannabis-induced disorder Cellulitis of left leg Chronic anticoagulation Chronic anticoagulation On coumadin Chronic back pain greater than 3 months duration (12/29/14) Cyst of fallopian tube Depression Factor V Leiden mutation GERD (gastroesophageal reflux disease) Hematuria History of DVT (deep vein thrombosis) Hypothyroidism Iatrogenic pulmonary embolism and infarction Intractable vomiting with nausea Left buttock abscess Left lower quadrant pain (01/27/12) Migraine headache Nephrolithiasis Orbital cellulitis on left Other enthesopathies, not elsewhere classified (03/21/16) Neck Panic disorder (03/21/16) Preseptal cellulitis of left eye Recurrent deep vein thrombosis (DVT) Right lower quadrant abdominal pain inflamed/ruptured fallopian tube on the right Thrombosis of arteries of lower extremity Vaginal candidiasis Surgical History Abdominal hysterectomy (~2009) 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) Arthroplasty of knee (~1999) left Bilateral salpingectomy with oophorectomy (~2008) Cervical Conization/LEEP LEEP 2003 [facility] BX 2003 Cholecystectomy History of arthroscopy of knee S/P appendectomy (12/24/17) Dr Veliz - Car katzy and lap excision of R fallopian tube remnant Status post cholecystectomy Status post LEEP (loop electrosurgical excision procedure) of cervix THUMB RECONSTRUCTION left; in childhood Social History Smoking/Tobacco Use Status: Never Smoking risk assessment performed?: Yes Alcohol Intake: current Alcohol Intake frequency: 0-2 drinks per day Drug use: Daily Substance use type: marijuana Current gender identity: female Do you feel safe at home: Yes Do you feel safe in your relationship?: Yes Additional Social history: Patient is and with one child. Exam <Nguyen Jiang - Last Filed: 08/17/20 15:02> Narrative Exam Narrative: Constitutional: Alert and oriented x3. Appears stated age. Normal body habitus. Head: Normocephalic, no trauma. Eyes: Pupils PERRLA, Red reflex noted, EOM's intact. Eyelids symmetrical without lesions, discharge, or swelling. ENT: Bilateral TM's WNL, External ear normal to inspection, no mastoid TTP, swelling, or erythema, Nasal turbinates WNL, no nasal discharge. Normal dentition, Posterior pharynx WNL, no exudate. Chest: RRR, Normal S1, S2, distal pulses intact. Resp: Lungs clear to auscultation bilaterally, no wheezes, rales, or rhonchi. Musculoskeletal: Normal gait, 5/5 strength to all four extremities. Skin: Has a lesion noted to her left gluteal fold and right mid axillary area with surrounding induration. It is painful to the touch. Does appear to have some sanguinous clear drainage. Generalized urticaria rash. Capillary refill less than 2 sec. Neurologic: Cranial nerves II-XII intact. Alert and oriented x 3. DTR's intact. Hematologic/Lymphatic: No ecchymosis, no lymphadenopathy. Skin General skin exam: excoriation Rashes: rashes noted patches diffuse multiple locations Full body images: 1. Approximately 8 cm area of open wound, surrounding erythema and mild induration noted, draining clear sanguinous 2. Small open area with surrounding erythema and tenderness to palpation. Erythema extends up into the axillary fold. Course <Nguyen Jiang - Last Filed: 08/17/20 15:02> Vital Signs Vital signs: Vital Signs Temperature 36.3 C L 08/16/20 14:25 Pulse 80 08/16/20 14:25 Respiratory Rate 20 08/16/20 14:25 Blood Pressure 108/77 08/16/20 14:25 Pulse Oximetry 98 08/16/20 14:25 Temperature 36.3 C L 08/16/20 14:25 Temperature Source Skin 08/16/20 14:25 Pulse 80 08/16/20 14:25 Respiratory Rate 20 08/16/20 14:25 Blood Pressure 108/77 08/16/20 14:25 Blood Pressure Position Sitting 08/16/20 14:25 Pulse Oximetry 98 08/16/20 14:25 Oxygen Delivery Method Room Air 08/16/20 14:25 Oxygen Flow Rate 0 08/16/20 14:25 Pain Level 7 08/16/20 14:25 Lab/Test Results Lab/Test Results: 08/16/20 14:33 Blood Blood Culture - Pending 08/16/20 14:33 Blood Blood Culture - Pending Sign Out <Nguyen Jiang - Last Filed: 08/17/20 15:02> Sign Out Data: Sign Out Comment: Pending labs and disposition, cellulitis hx of MRSA Last updated by Nguyen Jiang at 08/16/20 16:10
[2020-08-16 15:39] LABS: Lactate 0.8 mmol/L (0.6-1.4)
[2020-08-16 15:40] LABS: Abs Immature Grans 0.04 10^3/uL (0.0-0.06); Absolute Basophil Count 0.03 10^3/uL (0.0-0.2); Absolute Lymphocyte Count 0.92 10^3/uL (1.2-3.4); Absolute Monocyte Count 0.38 10^3/uL (0.1-0.8); Absolute Neutrophil Count 5.25 10^3/uL (1.2-6.7); Basophils % 0.4; Eosinophils % 4.3; HCT 37.7 % (36.0-46.0); HGB 12.8 g/dL (11.2-15.7); Immature Grans % 0.6; Lymphocytes % 13.3; MCH 28.4 pg (27.0-33.0); MCV 83.8 fL (80-95); MPV 12.1 fL (8.0-11.0); Monocytes % 5.5; Neutrophils % 75.9; Nucleated RBC 0 %; Platelet Count 162 10^3/uL (130-400); RDW 13.5 % (11.7-14.6); RDW-SD 41.5 fL; WBC 6.92 10^3/uL (4.4-10.8)
[2020-08-16 15:42] LABS: ESR 4 mm//hr (0-20)
[2020-08-16 16:16] LABS: Prothrombin Time 56.3 sec (9.3-11.0)
[2020-08-16 16:22] LABS: ALT 24 U/L (14-59); AST 14 U/L (15-37); Albumin 3.9 g/dL (3.4-5.0); Alkaline Phosphatase 54 U/L (46-116); Anion Gap 10.9 mmol/L (3-11); BUN 10 mg/dL (7-18); Bilirubin, Total 0.1 mg/dL (0.2-1.0); CO2 22.1 mmol/L (21.0-32.0); CREATININE 1.5 mg/dL (0.55-1.02); Chloride 107 mmol/L (98-107); Estimated GFR 38.27 (mL/min/1.73m2); Glucose 93 mg/dL (74-106); Magnesium 1.8 mg/dL (1.8-2.4); Potassium 4.7 mmol/L (3.5-5.1); Sodium 140 mmol/L (136-145); Total Protein 6.8 g/dL (6.4-8.2)
[2020-08-16 16:24] LABS: C-Reactive Protein 0.06 mg/dL (0.0-0.3)
[2020-08-16 16:28] LABS: INR 5.9 (0.9-1.1)
[2020-08-16] MEDS: diphenhydrAMINE 50 MG/ML VIAL IVP (18:16)
[2020-08-16] MEDS: VANCOMYCIN/WATER (PEG) 1.25 GM/250 ML BAG IVPB (18:17)
[2020-08-16 18:24] VITALS: BP 124/64; PULSE 73; RESP 16; TEMP 36.3; O2SAT 100
[2020-08-16 18:30] LABS: Source Nasal/Nares
[2020-08-16 18:32] LABS: Bilirubin Negative (Negative); Blood Trace-intact (Negative); Clarity Sl Cloudy (Clear); Glucose Negative (Negative); Ketones Negative (Negative); Leukocyte Esterase Negative (Negative); Nitrite Negative (Negative); Specific Gravity 1.025 (1.005-1.025); Urobilinogen 0.2 EU/dL (Up TO 0.2)
[2020-08-16 18:39] LABS: Bacteria Moderate HPF (Negative); C & S Indicated? No/Sq. Contamination; Casts Negative LPF (Negative); Crystals Negative HPF (Negative); Epithelial Cells Many HPF (Negative); Mucus Negative (Negative); RBC 0-2 HPF (0-2)
[2020-08-16 18:47] VITALS: BP 120/78; PULSE 75; RESP 18; TEMP 36.8; O2SAT 100
--- NOTE | 2020-08-16 20:01 | W.PM.HP.N ---
Date of service: 08/16/20 Time of Service: 20:02 Assessment and Plan Assessment and plan (1) Skin ulcer: Status: Acute Assessment and plan: Two shallow ulcerations / erosions. R axilla and L gluteal fold/proximal medial thigh. H/O MRSA cellulitis. Wound and blood cultures pending. PICC in place. IV vancomycin initiated. WBC count is normal. Qualifiers: Non-pressure ulcer stage: limited to breakdown of skin Qualified Code(s): L98.491 - Non-pressure chronic ulcer of skin of other sites limited to breakdown of skin (2) Supratherapeutic INR: Status: Acute Assessment and plan: Recurring supratherapeutic INR; sees [facility] Prevention Manager at [facility] [place] Recently started on VitK2 100mg daily. Her coumadin dose is currently 10mg daily. Her INR was elevated at her last hematology appt and that is when the K2 was initiated. Will hold coumadin and Vit K with caution. She stated her INR dropped from the 5's to the 1's overnight when a single dose was held in the past. She denies any changes in her dietary intake from her norm. Monitor INR. (3) Asthma: Status: Chronic Assessment and plan: Nop exacerbation. Cont scheduled Flovent PRN albuterol per nebulizer should she have symptoms. (4) ADHD (attention deficit hyperactivity disorder), inattentive type: Status: Chronic Assessment and plan: Cont methylphenidate (5) Factor V Leiden mutation: Status: Chronic Assessment and plan: See supratherapeutic INR (6) Urticaria: Status: Acute Assessment and plan: Cont nightly diphenhydramine 100mg po. Add Q4H prn Atarax. Add Singulair nightly. She avoids prednisone; causes explosive anger per pt. Cont Fexofenadine daily. Add famotadine nightly (7) Acute renal insufficiency: Status: Acute Assessment and plan: Creatinine 1.5; previous recent values of 1.1. NS at 100mg/hr for 1L. Monitor (8) Hypothyroidism: Status: Chronic Assessment and plan: TSH on 07/14 was 0.95. Cont replacement tx. Qualifiers: Hypothyroidism type: acquired Qualified Code(s): E03.9 - Hypothyroidism, unspecified (9) Panic disorder: Status: Chronic Assessment and plan: Cont fluoxetine. She takes clonazepam at home; while in the hospital previously, IV lorazepam was more helpful d/t the increased stress of hospitalization. History of Present Illness History of Present Illness Chief Complaint: Skin wounds Narrative: This is a 40 yo female with a PMH of Factor V Leiden on coumadin, DVT, perennial allergies / urticaria, depression, GERD, hypothyroidism, asthma, ADHD, vaginal candidiasis. She presented to the ED with c/o of skin lesions; one in the R axilla and the other in the L proximal inner thigh/gluteal fold. She endorsed pain, drainage of clear sanguinous fluid. No F/C, N/V. She has also developed wide-spread urticarial lesions that she says are much more extensive than any past episodes of hives. She believes the lesion on the left thigh/gluteal fold developed when she had what she felt was a vaginal yeast infection. She took a diflucan and then a 3 day Monistat treatment for that issue. She has been placing a topical antibiotic ointment on the lesions. In the ED her WBC count was normal. Her INR was elevated at 5.9. Creatinine 1.5. Lytes normal. She denies any noted bleeding. IV vancomycin initiated. She has a h/o MRSA cellulitis that required an extended IV antibiotic course. Review of Systems All systems reviewed & are unremarkable except as noted in HPI and below PFSH Medical History Acute deep vein thrombosis (DVT) of left lower extremity ADHD (attention deficit hyperactivity disorder), 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) Asthma (11/08/12) B12 deficiency Candidiasis Cannabis abuse with cannabis-induced disorder Cellulitis of left leg Chronic anticoagulation Chronic anticoagulation On coumadin Chronic back pain greater than 3 months duration (12/29/14) Cyst of fallopian tube Depression Factor V Leiden mutation GERD (gastroesophageal reflux disease) Hematuria History of DVT (deep vein thrombosis) Hypothyroidism Iatrogenic pulmonary embolism and infarction Intractable vomiting with nausea Left buttock abscess Left lower quadrant pain (01/27/12) Migraine headache Nephrolithiasis Orbital cellulitis on left Other enthesopathies, not elsewhere classified (03/21/16) Neck Panic disorder (03/21/16) Preseptal cellulitis of left eye Recurrent deep vein thrombosis (DVT) Right lower quadrant abdominal pain inflamed/ruptured fallopian tube on the right Thrombosis of arteries of lower extremity Vaginal candidiasis Surgical History Abdominal hysterectomy (~2009) 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) Arthroplasty of knee (~1999) left Bilateral salpingectomy with oophorectomy (~2008) Cervical Conization/LEEP LEEP 2003 [facility] BX 2003 Cholecystectomy History of arthroscopy of knee S/P appendectomy (12/24/17) Dr Veliz - Lap appy and lap excision of R fallopian tube remnant Status post cholecystectomy Status post LEEP (loop electrosurgical excision procedure) of cervix THUMB RECONSTRUCTION left; in childhood Social History Smoking/Tobacco Use Status: Never Smoking risk assessment performed?: Yes Alcohol Intake: current Alcohol Intake frequency: 0-2 drinks per day Drug use: Daily Substance use type: marijuana Current gender identity: female Do you feel safe at home: Yes Do you feel safe in your relationship?: Yes Additional Social history: Patient is and with one child. Meds Allergies and Home Medications Allergies Allergy/AdvReac Type Severity Reaction Status Date / Time aripiprazole [From Abilify] Allergy Severe Rash, hives Verified 08/16/20 14:32 doxycycline Allergy Severe Anaphylaxsi Verified 08/16/20 14:32 s levetiracetam [From Keppra] Allergy Severe RASH/HIVES Verified 08/16/20 14:32 sulfamethoxazole Allergy Severe Hives Verified 08/16/20 14:32 venom-honey bee Allergy Severe unknown Verified 08/16/20 14:32 Penicillins Allergy Intermediate Skin Rash Verified 08/16/20 14:32 chlorhexidine Allergy Unknown unknown Verified 08/16/20 14:32 Sulfa (Sulfonamide Allergy Verified 08/16/20 14:32 Antibiotics) mold AdvReac Severe Wheezing Verified 08/16/20 14:32 oxycodone [Oxycodone] AdvReac Severe vomits Verified 08/16/20 14:32 paroxetine AdvReac Severe Irritability Verified 08/16/20 14:32 and anger dicloxacillin [Dicloxacillin] AdvReac Mild Nausea Verified 08/16/20 14:32 gabapentin AdvReac Mild hives Verified 08/16/20 14:32 prednisone AdvReac Agitation Verified 08/16/20 14:32 trazodone AdvReac shortness Verified 08/16/20 14:32 of breath verapamil [Verapamil] AdvReac Worsening Verified 08/16/20 14:32 migraine nuts Allergy Severe Anaphylaxsi Uncoded 08/16/20 14:32 s Home Medications Medication Instructions Recorded Confirmed Type Citracal Plus Bone Density 1 ea PO BID tab-cap 11/09/12 08/16/20 History Space Chamber Plus #1 spacer 05/01/14 04/09/20 Rx cyproheptadine 4 mg PO HS #90 tab-cap 06/04/16 08/16/20 History Narcan 4 mg NS DAILY PRN PRN #2 spray 12/08/16 08/16/20 Rx albuterol sulfate 1.25 mg/3 mL 1.25 mg INHALATION Q6H PRN #75 ml 01/12/19 08/16/20 Rx solution for nebulization alcohol swabs See Rx Instructions TP .COMPLEX 07/11/19 08/16/20 Rx #300 each triamcinolone acetonide 0.1 % 1 applic TOPICAL BID PRN #60 gm 09/05/19 08/16/20 Rx topical cream methylphenidate HCl 20 mg tablet 20 mg PO TID #84 tab-cap MDD 60 mg 10/20/19 08/16/20 Rx fexofenadine 180 mg tablet 180 mg PO DAILY #90 tab-cap 11/01/19 08/16/20 Rx diphenhydramine HCl [Benadryl 100 mg PO HS 12/13/19 08/16/20 History Allergy] diphenhydramine HCl 25 mg PO Q4H PRN PRN #20 cap 12/15/19 08/16/20 Rx sucralfate 1 gram tablet 1 g PO AC & HS #120 tab 12/30/19 08/16/20 Rx warfarin 5 mg tablet 5 mg PO PER PROTOCOL #90 tab 02/09/20 08/16/20 Rx clotrimazole-betamethasone 1 1 applic TOPICAL BID PRN #45 gm 02/22/20 08/16/20 Rx %-0.05 % topical cream epinephrine 0.3 mg/0.3 mL 0.3 mg IM ONCE #1 ea 02/22/20 08/16/20 Rx injection, auto-injector fluticasone propionate 220 2 inh INHALATION BID #3 inhaler 02/22/20 08/16/20 Rx mcg/actuation HFA aerosol inhaler levothyroxine 125 mcg tablet 125 mcg PO .AM #90 tab 02/22/20 08/16/20 Rx omeprazole 40 mg capsule,delayed 40 mg PO DAILY #90 cap 02/22/20 08/16/20 Rx release albuterol sulfate 90 mcg/actuation 2 puff INHALATION Q6H PRN #3 03/07/20 08/16/20 Rx aerosol inhaler inhaler MDD 6 puffs ondansetron HCl 8 mg tablet 8 mg PO BID PRN #20 tab 03/07/20 08/16/20 Rx sumatriptan succinate 6 mg/0.5 mL 6 mg SUBCUT ONCE PRN #90 syrg MDD 03/07/20 08/16/20 Rx subcutaneous pen injector 12mg fluoxetine 10 mg capsule 20 mg PO DAILY 03/19/20 08/16/20 History clonazepam 1 mg tablet 1 mg PO TID PRN #90 tab 03/20/20 08/16/20 Rx acidophilus-pectin, citrus 1 tab PO DAILY 08/16/20 08/16/20 History cetirizine [Zyrtec] 10 mg PO DAILY 08/16/20 08/16/20 History hydrocodone-acetaminophen 1 tab PO BID 08/16/20 08/16/20 History ondansetron HCl [Zofran] 4 mg PO BID 08/16/20 08/16/20 History polyethylene glycol 3350 [Miralax] 17 g PO DAILY PRN 08/16/20 08/16/20 History promethazine 25 mg [place] Q6H PRN 08/16/20 08/16/20 History topiramate [Topamax] 200 mg PO BID 08/16/20 08/16/20 History vitamin K2 100 mcg PO DAILY 08/16/20 08/16/20 History Exam Const General: cooperative, no acute distress and well developed Nutritional Appearance: overweight Orientation: alert and oriented x3 HENMT Head: normocephalic and atraumatic Eyes Sclera: sclerae normal Pupils: PERRL Neck Neck: normal visual inspection and full ROM Resp Effort & Inspection: normal respiratory effort Auscultation: clear to auscultation bilaterally Cardio Rate: regular rate Rhythm: regular rhythm Heart Sounds: S1 normal and S2 normal GI Palpation: soft and nontender Skin Lesions: lesion noted Rashes: rashes noted (Wide spread urticaria of varying sizes. Some excoriated. ) Full body images: 1. R axilla with shallow appx 1 cm erosion; mild surrounding erythema. No purulent drainage or mass. Tender to touch. 2. 8 cm erosion with mild surrounding erythema. NO purulent drainage or mass. Tender to touch. Neuro General: no focal motor deficits Cognition: normal cognition Speech: speech normal Gait: normal gait Extrem General: no pedal edema and no calf tenderness Psych Mental Status: mental status grossly normal Speech and Movement: speech and movement normal Mood: congruent mood Affect: normal affect Results Labs Result diagrams: 08/16/20 15:20 08/16/20 15:50 Labs: Laboratory Results - last 24 hr 08/16/20 08/16/20 08/16/20 15:20 15:20 15:50 WBC 6.92 RBC 4.50 Hgb 12.8 Hct 37.7 MCV 83.8 MCH 28.4 MCHC 34.0 RDW 13.5 Plt Count 162 MPV 12.1 H Immature Gran % 0.6 Neutrophils % 75.9 Lymphocytes % 13.3 Monocytes % 5.5 Eosinophils % 4.3 Basophils % 0.4 Nucleated RBC % 0 Absolute Neutrophils 5.25 Absolute Lymphocytes 0.92 L Absolute Monocytes 0.38 Absolute Eosinophils 0.30 Absolute Basophils 0.03 ESR 4 PT INR VBG Lactate Sodium Potassium Chloride Carbon Dioxide Anion Gap BUN Creatinine Estimated GFR/1.73 m2 Glucose Calcium Magnesium Total Bilirubin AST ALT Alkaline Phosphatase C-Reactive Protein 0.06 Total Protein Albumin Urine Color Urine Clarity Urine pH Ur Specific [place] Urine Protein Urine Ketones Urine Blood Urine Nitrite Urine Bilirubin Urine Urobilinogen Ur Leukocyte Esterase Urine RBC Urine WBC Ur Epithelial Cells Urine Crystals Urine Bacteria Urine Casts Urine Mucus Ur Culture Indicated? Urine Glucose COVID-19 Source 08/16/20 08/16/20 08/16/20 15:50 15:50 15:50 WBC RBC Hgb Hct MCV MCH MCHC RDW Plt Count MPV Immature Gran % Neutrophils % Lymphocytes % Monocytes % Eosinophils % Basophils % Nucleated RBC % Absolute Neutrophils Absolute Lymphocytes Absolute Monocytes Absolute Eosinophils Absolute Basophils ESR PT 56.3 H INR 5.9 H* VBG Lactate 0.8 Sodium 140 Potassium 4.7 Chloride 107 Carbon Dioxide 22.1 Anion Gap 10.9 BUN 10 Creatinine 1.5 H Estimated GFR/1.73 m2 38.27 Glucose 93 Calcium 9.0 Magnesium 1.8 Total Bilirubin 0.1 L AST 14 L ALT 24 Alkaline Phosphatase 54 C-Reactive Protein Total Protein 6.8 Albumin 3.9 Urine Color Urine Clarity Urine pH Ur Specific [place] Urine Protein Urine Ketones Urine Blood Urine Nitrite Urine Bilirubin Urine Urobilinogen Ur Leukocyte Esterase Urine RBC Urine WBC Ur Epithelial Cells Urine Crystals Urine Bacteria Urine Casts Urine Mucus Ur Culture Indicated? Urine Glucose COVID-19 Source 08/16/20 08/16/20 18:07 18:15 WBC RBC Hgb Hct MCV MCH MCHC RDW Plt Count MPV Immature Gran % Neutrophils % Lymphocytes % Monocytes % Eosinophils % Basophils % Nucleated RBC % Absolute Neutrophils Absolute Lymphocytes Absolute Monocytes Absolute Eosinophils Absolute Basophils ESR PT INR VBG Lactate Sodium Potassium Chloride Carbon Dioxide Anion Gap BUN Creatinine Estimated GFR/1.73 m2 Glucose Calcium Magnesium Total Bilirubin AST ALT Alkaline Phosphatase C-Reactive Protein Total Protein Albumin Urine Color Yellow Urine Clarity Sl cloudy Urine pH 6.0 Ur Specific [place] 1.025 Urine Protein Negative Urine Ketones Negative Urine Blood Trace-intact H Urine Nitrite Negative Urine Bilirubin Negative Urine Urobilinogen 0.2 Ur Leukocyte Esterase Negative Urine RBC 0-2 Urine WBC 3-5 Ur Epithelial Cells Many Urine Crystals Negative Urine Bacteria Moderate Urine Casts Negative Urine Mucus Negative Ur Culture Indicated? No/sq. contamination Urine Glucose Negative COVID-19 Source Nasal/nares Last Vital Signs Temp 36.8 C 08/16/20 18:47 Pulse 75 08/16/20 18:47 Resp 18 08/16/20 18:47 BP 120/78 08/16/20 18:47 Pulse Ox 100 08/16/20 18:47 COVID-19 Screening Have you, or household traveled for leisure in last 14 days?: No Had IN PERSON contact w/suspected or confirmed C-19 person: No
[2020-08-16] MEDS: hydrOXYzine HCL 25 MG TAB PO (20:28)
[2020-08-16] MEDS: Acetaminophen 325 MG TAB 650 MG PO (20:28)
[2020-08-16] MEDS: Montelukast 10 MG TAB PO (20:28)
[2020-08-16] MEDS: Normal Saline 1,000 ML 100 ML IV (20:29)
[2020-08-16] MEDS: LORazepam 2 MG/ML VIAL 0.5 MG IVP (21:40)
[2020-08-16] MEDS: diphenhydrAMINE 25 MG CAP 100 MG PO (21:40)
[2020-08-16] MEDS: Famotidine 20 MG TAB 40 MG PO (21:41)
[2020-08-16] MEDS: Sucralfate 1 GM TAB PO (21:41)
[2020-08-16] MEDS: Cyproheptadine 4 MG TAB PO (21:49)
[2020-08-16 22:03] LABS: COVID-19 PCR Negative (Negative)
[2020-08-17 00:19] VITALS: BP 119/62; PULSE 71; RESP 17; TEMP 36.5; O2SAT 97
[2020-08-17] MEDS: hydrOXYzine HCL 25 MG TAB PO ×3 (00:46→10:08)
[2020-08-17] MEDS: LORazepam 2 MG/ML VIAL 0.5 MG IVP (03:45)
[2020-08-17] MEDS: Levothyroxine 125 MCG TAB PO (05:43)
[2020-08-17 07:18] LABS: Abs Immature Grans 0.01 10^3/uL (0.0-0.06); Absolute Basophil Count 0.02 10^3/uL (0.0-0.2); Absolute Eosinophil Count 0.39 10^3/uL (0.0-0.7); Absolute Lymphocyte Count 1.74 10^3/uL (1.2-3.4); Absolute Monocyte Count 0.48 10^3/uL (0.1-0.8); Absolute Neutrophil Count 3.57 10^3/uL (1.2-6.7); Basophils % 0.3; Eosinophils % 6.3; HCT 38.8 % (36.0-46.0); HGB 12.7 g/dL (11.2-15.7); Immature Grans % 0.2; MCH 28.2 pg (27.0-33.0); MCHC 32.7 % (32.0-36.0); MPV 11.3 fL (8.0-11.0); Monocytes % 7.7; Neutrophils % 57.5; Nucleated RBC 0 %; Platelet Count 228 10^3/uL (130-400); RBC 4.51 10^6/uL (3.93-5.22); RDW 13.5 % (11.7-14.6); RDW-SD 42.2 fL; WBC 6.21 10^3/uL (4.4-10.8)
[2020-08-17 07:28] LABS: Anion Gap 4.1 mmol/L (3-11); BUN 9 mg/dL (7-18); CO2 19.9 mmol/L (21.0-32.0); CREATININE 1.3 mg/dL (0.55-1.02); Chloride 106 mmol/L (98-107); Estimated GFR 45.14 (mL/min/1.73m2); Glucose 84 mg/dL (74-106); Potassium 3.4 mmol/L (3.5-5.1); Sodium 130 mmol/L (136-145)
[2020-08-17] MEDS: Mometasone 220 MCG 14 DOSE INHALER IH (07:56)
[2020-08-17 08:00] LABS: Prothrombin Time 53.8 sec (9.3-11.0)
[2020-08-17 08:06] LABS: INR 5.6 (0.9-1.1)
[2020-08-17] MEDS: Sucralfate 1 GM TAB PO ×2 (08:11→12:01)
[2020-08-17] MEDS: VANCOMYCIN 750 MG in Normal Saline 250 ML 166.667 MG IV (08:11)
[2020-08-17] MEDS: Fexofenadine 180 MG TAB PO (08:11)
[2020-08-17] MEDS: Omeprazole 20 MG CAPCR 40 MG PO (08:11)
[2020-08-17] MEDS: Methylphenidate 10 MG TAB 20 MG PO (08:11)
[2020-08-17] MEDS: Normal Saline Flush 10 ML SYR IVP ×2 (08:11→08:55)
[2020-08-17 08:16] VITALS: BP 101/68; PULSE 65; RESP 17; TEMP 36.5; O2SAT 100
--- NOTE | 2020-08-17 08:37 | DSE_ITS ---
Date of service: 08/17/20 Time of Service: 08:38 DS: Diagnosis Discharge Diagnosis (1) Skin ulcer: Start date: 08/17/20 Start time: 08:38 Status: Acute Asessment and Plan: H/o MRSA Though this time CRP normal, no leukocytosis, inflammatory markers normal, I am hesitant to call this infectious, however since she was started on vancomycin in the ED, will discharge on oral zyvox for 7 days. Ulcers with improvement. Armpit barely visible, gluteal fold, slight erythema and bloody drainage D/C PICC line She does have body urticaria, will give atarax and continue benadryl for she states she can not take prednisone Follow up with PCP in 1-2 weeks she can make appt for follow up (2) Supratherapeutic INR: Start date: 08/17/20 Start time: 08:41 Status: Acute Asessment and Plan: She has been working with her hematologists to get her INR under control while on coumadin. They have a plan worked out to take small doses of vitamin K. If not she will need to go on enoxaparin per pt. at this time will defer to head of ethics and compliance to continue working with patient on supratheraputic INR, patient refused to miss a dose (3) Factor V Leiden mutation: Start date: 08/17/20 Start time: 08:44 Status: Chronic Asessment and Plan: as above (4) Asthma: Start date: 08/17/20 Start time: 08:44 Status: Chronic Asessment and Plan: Not exacerbated at this time continue home regimen (5) ADHD (attention deficit hyperactivity disorder), inattentive type: Start date: 08/17/20 Start time: 08:44 Status: Chronic Asessment and Plan: Cont methylphenidate (6) Urticaria: Start date: 08/17/20 Start time: 08:47 Status: Acute Asessment and Plan: Atarax Singular fexofenadine (7) Acute renal insufficiency: Start date: 08/17/20 Start time: 08:50 Status: Acute Asessment and Plan: Improving, continue hydration (8) Hypothyroidism: Start date: 08/17/20 Start time: 08:48 Status: Chronic Asessment and Plan: continue replacement (9) Panic disorder: Start date: 08/17/20 Start time: 08:49 Status: Chronic Asessment and Plan: fluoxitine and clonazepam Discharge Plan Disposition Patient Disposition: HOME Condition: Improving Discharge Details Reason For Visit: CELLULITIS Admit Date/Time: 08/16/20 18:07 Admit Provider: Bry Murillo Attending Provider: Bry Murillo Primary Care Provider: [facility] Hospital Course: This is a 40 yo female with a PMH of Factor V Leiden on coumadin, DVT, perennial allergies / urticaria, depression, GERD, hypothyroidism, asthma, ADHD, vaginal candidiasis. She presented to the ED with c/o of skin lesions; one in the R axilla and the other in the L proximal inner thigh/gluteal fold. She endorsed pain, drainage of clear sanguinous fluid. No F/C, N/V. She has also developed wide-spread urticarial lesions that she says are much more extensive than any past episodes of hives. She believes the lesion on the left thigh/gluteal fold developed when she had what she felt was a vaginal yeast infection. She took a diflucan and then a 3 day Monistat treatment for that issue. She has been placing a topical antibiotic ointment on the lesions. In the ED her WBC count was normal. Her INR was elevated at 5.9. Creatinine 1.5. Lytes normal. She denies any noted bleeding. IV vancomycin initiated. She has a h/o MRSA cellulitis that required an extended IV antibiotic course. Today her skin ulcers are improving. Right axilla barely visible, L proximal inner thigh slight pink, seriosangious drainage, does not appear to in infected, no inflammation. No inflammatory markers were elevated. She was afebrile, d/t history of MRSA she was started on vanco in the ED. She is being discharged home on PO zyvox. she can start a dose tonight x 7 days. Due to urticaria she was placed on benadryl, singular, atarax, will continue these at home. INR elevated, she is working with her head of ethics and compliance to lower this number with small amounts of vitamin K, will defer to hematology for further management. Creatinine improved to 1.3 continue to hydrated. She denies CP, SOB, N/V/D, Bleeding. Home Meds and New Rx's Prescriptions: New linezolid [Zyvox] 600 mg tablet 600 mg PO BID Qty: 14 RF: 0 fluconazole 150 mg tablet 150 mg PO Q3D Qty: 2 RF: 1 hydroxyzine HCl 25 mg tablet 25 mg PO Q4H PRN PRNQty: 30 RF: 0 montelukast 10 mg Tablet 10 mg PO QPM Qty: 30 RF: 0 Continued sucralfate 1 gram tablet 1 g PO AC & HS Qty: 120 RF: 2 Citracal Plus Bone Density 1 EACH tablet 1 ea PO BID RF: 0 cyproheptadine 4 MG tablet 4 mg PO HS Qty: 90 RF: 3 albuterol sulfate 1.25 mg/3 mL solution for nebulization 1.25 mg Inhalation Q6H PRN (Reason: shortness of breath or wheezing) Qty: 75 RF: 3 alcohol swabs [Alcohol Wipes] Pads, Medicated See Rx Instructions TP .COMPLEX Qty: 300 RF: 4 triamcinolone acetonide 0.1 % cream 1 applic Topical BID PRN (Reason: eczema) Qty: 60 RF: 1 methylphenidate HCl 20 mg tablet 20 mg PO TID MDD 60 mg Qty: 84 RF: 0 fexofenadine 180 mg tablet 180 mg PO DAILY Qty: 90 RF: 4 warfarin 5 mg tablet 5 mg PO PER PROTOCOL Qty: 90 RF: 4 epinephrine [EpiPen 2-Nino] 0.3 mg/0.3 mL auto-injector 0.3 mg IM ONCE Qty: 1 RF: 1 Flovent HFA 220 mcg/actuation HFA aerosol inhaler 2 inh Inhalation BID Qty: 3 RF: 4 levothyroxine 125 mcg tablet 125 mcg PO .AM Qty: 90 RF: 0 omeprazole 40 mg capsule,delayed release(DR/EC) 40 mg PO DAILY Qty: 90 RF: 4 clotrimazole-betamethasone 1-0.05 % cream 1 applic Topical BID PRN (Reason: rash) Qty: 45 RF: 1 albuterol sulfate [ProAir HFA] 90 mcg/actuation HFA aerosol inhaler 2 puff Inhalation Q6H PRN MDD 6 puffs Qty: 3 RF: 4 ondansetron HCl 8 mg tablet 8 mg PO BID PRN (Reason: nausea and vomiting) Qty: 20 RF: 0 sumatriptan succinate 6 mg/0.5 mL pen injector 6 mg subcut ONCE MDD 12mg PRN (Reason: migraine headache) Qty: 90 RF: 1 fluoxetine 10 mg capsule 20 mg PO DAILY RF: 0 clonazepam 1 mg tablet 1 mg PO TID PRN (Reason: anxiety) Qty: 90 RF: 0 Narcan 4 MG spray,non-aerosol 4 mg NS DAILY PRN PRNQty: 2 RF: 0 polyethylene glycol 3350 [Miralax] 17 gram Powder In Packet 17 g PO DAILY PRNRF: 0 promethazine 25 mg Suppository 25 mg CO Q6H PRNRF: 0 ondansetron HCl [Zofran] 4 mg Tablet 4 mg PO BID RF: 0 hydrocodone-acetaminophen 7.5-325 mg tablet 1 tab PO BID RF: 0 Zyrtec 10 mg Capsule 10 mg PO DAILY RF: 0 topiramate [Topamax] 200 mg tablet 200 mg PO BID RF: 0 acidophilus-pectin, citrus 25 million cell -100 mg tablet 1 tab PO DAILY RF: 0 vitamin K2 100 mcg Capsule 100 mcg PO DAILY RF: 0 diphenhydramine HCl [Benadryl Allergy] 25 mg tablet 100 mg PO HS RF: 0 diphenhydramine HCl 25 mg Capsule 25 mg PO Q4H PRN PRNQty: 20 RF: 0 No Action (DME) Space Chamber Plus 1 EACH spacer 1 ea Miscellaneous Q4H PRN Qty: 1 RF: 0 Discharge Instructions Instructions: Urticaria (GEN), Elevated INR (DC), Cold Compress or Soak (DC) Additional Instructions: Follow up with PCP in 1-2 call to schedule appt with your provider Take first dose oral medication this evening at 8 pm Continue atarax every 4 hours 25-50 mg as needed for itching, along with benadryl and singular Drink plenty of fluids Continue to follow up with hematology for your INR on discharge it is 5.6 Activity:: Activity as Tolerated Equipment/Supplies:: No Equipment Needed Diet:: As Tolerated Discharge Orders Discharge Orders: Discharge Order (Routine); Ordered 08/17/20 Ordered By: Melissa Watson DS: Summary Time Spent with Patient providing and/or coordinating discharge services: Greater than 30 minutes (approx 40 mins spent with discharge and education) Status at Discharge Functional status at discharge: independent ambulation Overall status at discharge: patient is progressing back to baseline Mental Status: mental status grossly normal Speech and Movement: speech and movement normal Mood: congruent mood Affect: normal affect Exam Const General: cooperative, no acute distress and well developed Nutritional Appearance: overweight Orientation: alert and oriented x3 HENMT Head: normocephalic and atraumatic Eyes Sclera: sclerae normal Pupils: PERRL Neck Neck: normal visual inspection and full ROM Resp Effort & Inspection: normal respiratory effort Auscultation: clear to auscultation bilaterally Cardio Rate: regular rate Rhythm: regular rhythm Heart Sounds: S1 normal and S2 normal GI Palpation: soft and nontender Skin Lesions: lesion noted Rashes: rashes noted (Wide spread urticaria of varying sizes. Some excoriated. ) Other: to R axilla small pink area with no erythema infectious sign, Left inner glueteal fold, top dermis layer skin gone, no erythema, seriosangious fluid. No signs infection Neuro General: no focal motor deficits Cognition: normal cognition Speech: speech normal Gait: normal gait Extrem General: no pedal edema and no calf tenderness Psych Mental Status: mental status grossly normal Speech and Movement: speech and movement normal Mood: congruent mood Affect: normal affect DS: Data Vitals/I&O Vitals and I&O: Vital Signs Temperature 36.5 C 08/17/20 08:16 Temperature Source Temporal Artery Scan 08/17/20 08:16 Pulse 65 08/17/20 08:16 Pulse Rhythm Regular 08/17/20 04:30 Respiratory Rate 17 08/17/20 08:16 Respiratory Effort Non-Labored 08/17/20 04:30 Respiratory Depth Normal 08/17/20 04:30 Respiratory Pattern Normal 08/17/20 04:30 Blood Pressure 101/68 08/17/20 08:16 Blood Pressure Position Sitting 08/16/20 14:25 Pulse Oximetry 100 08/17/20 08:16 Oxygen Delivery Method Room Air 08/17/20 08:16 Oxygen Flow Rate 0 08/17/20 08:16 Pain Level 5 08/17/20 08:16 Comment 08/17/20 07:28 Intake & Output 08/16/20 08/16/20 08/17/20 11:59 23:59 11:59 Intake Total 1050.5 / 1050.5 Balance 1050.5 / 1050.5 Weight 69.4 kg Intake: IV 1050.5 / 1050.5 Data Completed and Pending Labs on day of discharge: Labs from last 24 hours 08/17/20 08/17/20 08/17/20 06:25 06:25 06:25 WBC 6.21 RBC 4.51 Hgb 12.7 Hct 38.8 MCV 86.0 MCH 28.2 MCHC 32.7 RDW 13.5 Plt Count 228 MPV 11.3 H Immature Gran % 0.2 Neutrophils % 57.5 Lymphocytes % 28.0 Monocytes % 7.7 Eosinophils % 6.3 Basophils % 0.3 Nucleated RBC % 0 Absolute Neutrophils 3.57 Absolute Lymphocytes 1.74 Absolute Monocytes 0.48 Absolute Eosinophils 0.39 Absolute Basophils 0.02 ESR PT 53.8 H INR 5.6 H* VBG Lactate Sodium 130 L Potassium 3.4 L D Chloride 106 Carbon Dioxide 19.9 L Anion Gap 4.1 BUN 9 Creatinine 1.3 H Estimated GFR/1.73 m2 45.14 Glucose 84 Calcium 8.0 L Magnesium Total Bilirubin AST ALT Alkaline Phosphatase C-Reactive Protein Total Protein Albumin Urine Color Urine Clarity Urine pH Ur Specific [place] Urine Protein Urine Ketones Urine Blood Urine Nitrite Urine Bilirubin Urine Urobilinogen Ur Leukocyte Esterase Urine RBC Urine WBC Ur Epithelial Cells Urine Crystals Urine Bacteria Urine Casts Urine Mucus Ur Culture Indicated? Urine Glucose COVID-19 Source SARS-CoV-2 (PCR) 08/16/20 08/16/20 08/16/20 18:15 18:07 15:50 WBC RBC Hgb Hct MCV MCH MCHC RDW Plt Count MPV Immature Gran % Neutrophils % Lymphocytes % Monocytes % Eosinophils % Basophils % Nucleated RBC % Absolute Neutrophils Absolute Lymphocytes Absolute Monocytes Absolute Eosinophils Absolute Basophils ESR PT 56.3 H INR 5.9 H* VBG Lactate Sodium Potassium Chloride Carbon Dioxide Anion Gap BUN Creatinine Estimated GFR/1.73 m2 Glucose Calcium Magnesium Total Bilirubin AST ALT Alkaline Phosphatase C-Reactive Protein Total Protein Albumin Urine Color Yellow Urine Clarity Sl cloudy Urine pH 6.0 Ur Specific [place] 1.025 Urine Protein Negative Urine Ketones Negative Urine Blood Trace-intact H Urine Nitrite Negative Urine Bilirubin Negative Urine Urobilinogen 0.2 Ur Leukocyte Esterase Negative Urine RBC 0-2 Urine WBC 3-5 Ur Epithelial Cells Many Urine Crystals Negative Urine Bacteria Moderate Urine Casts Negative Urine Mucus Negative Ur Culture Indicated? No/sq. contamination Urine Glucose Negative COVID-19 Source Nasal/nares SARS-CoV-2 (PCR) Negative 08/16/20 08/16/20 08/16/20 15:50 15:50 15:50 WBC RBC Hgb Hct MCV MCH MCHC RDW Plt Count MPV Immature Gran % Neutrophils % Lymphocytes % Monocytes % Eosinophils % Basophils % Nucleated RBC % Absolute Neutrophils Absolute Lymphocytes Absolute Monocytes Absolute Eosinophils Absolute Basophils ESR PT INR VBG Lactate 0.8 Sodium 140 Potassium 4.7 Chloride 107 Carbon Dioxide 22.1 Anion Gap 10.9 BUN 10 Creatinine 1.5 H Estimated GFR/1.73 m2 38.27 Glucose 93 Calcium 9.0 Magnesium 1.8 Total Bilirubin 0.1 L AST 14 L ALT 24 Alkaline Phosphatase 54 C-Reactive Protein 0.06 Total Protein 6.8 Albumin 3.9 Urine Color Urine Clarity Urine pH Ur Specific [place] Urine Protein Urine Ketones Urine Blood Urine Nitrite Urine Bilirubin Urine Urobilinogen Ur Leukocyte Esterase Urine RBC Urine WBC Ur Epithelial Cells Urine Crystals Urine Bacteria Urine Casts Urine Mucus Ur Culture Indicated? Urine Glucose COVID-19 Source SARS-CoV-2 (PCR) 08/16/20 08/16/20 15:20 15:20 WBC 6.92 RBC 4.50 Hgb 12.8 Hct 37.7 MCV 83.8 MCH 28.4 MCHC 34.0 RDW 13.5 Plt Count 162 MPV 12.1 H Immature Gran % 0.6 Neutrophils % 75.9 Lymphocytes % 13.3 Monocytes % 5.5 Eosinophils % 4.3 Basophils % 0.4 Nucleated RBC % 0 Absolute Neutrophils 5.25 Absolute Lymphocytes 0.92 L Absolute Monocytes 0.38 Absolute Eosinophils 0.30 Absolute Basophils 0.03 ESR 4 PT INR VBG Lactate Sodium Potassium Chloride Carbon Dioxide Anion Gap BUN Creatinine Estimated GFR/1.73 m2 Glucose Calcium Magnesium Total Bilirubin AST ALT Alkaline Phosphatase C-Reactive Protein Total Protein Albumin Urine Color Urine Clarity Urine pH Ur Specific [place] Urine Protein Urine Ketones Urine Blood Urine Nitrite Urine Bilirubin Urine Urobilinogen Ur Leukocyte Esterase Urine RBC Urine WBC Ur Epithelial Cells Urine Crystals Urine Bacteria Urine Casts Urine Mucus Ur Culture Indicated? Urine Glucose COVID-19 Source SARS-CoV-2 (PCR) 08/17/20 00:00 Nose MRSA Screen - Pending 08/16/20 16:00 Axillary Wound Culture - Pending 08/16/20 16:00 Axillary Gram Stain - Pending 08/16/20 16:12 Blood Blood Culture - Pending 08/16/20 15:20 Blood Blood Culture - Pending Preliminary micro results at discharge 08/17/20 00:00 MRSA Screen - Pending Nose 08/16/20 16:00 Wound Culture - Pending Axillary Gram Stain - Pending 08/16/20 16:12 Blood Culture - Pending Blood 08/16/20 15:20 Blood Culture - Pending Blood [facility] Medical History Acute deep vein thrombosis (DVT) of left lower extremity ADHD (attention deficit hyperactivity disorder), 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) Asthma (11/08/12) B12 deficiency Candidiasis Cannabis abuse with cannabis-induced disorder Cellulitis of left leg Chronic anticoagulation Chronic anticoagulation On coumadin Chronic back pain greater than 3 months duration (12/29/14) Cyst of fallopian tube Depression Factor V Leiden mutation GERD (gastroesophageal reflux disease) Hematuria History of DVT (deep vein thrombosis) Hypothyroidism Iatrogenic pulmonary embolism and infarction Intractable vomiting with nausea Left buttock abscess Left lower quadrant pain (01/27/12) Migraine headache Nephrolithiasis Orbital cellulitis on left Other enthesopathies, not elsewhere classified (03/21/16) Neck Panic disorder (03/21/16) Preseptal cellulitis of left eye Recurrent deep vein thrombosis (DVT) Right lower quadrant abdominal pain inflamed/ruptured fallopian tube on the right Thrombosis of arteries of lower extremity Vaginal candidiasis Surgical History Abdominal hysterectomy (~2009) 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) Arthroplasty of knee (~1999) left Bilateral salpingectomy with oophorectomy (~2008) Cervical Conization/LEEP LEEP 2003 [facility] BX 2003 Cholecystectomy History of arthroscopy of knee S/P appendectomy (12/24/17) Dr Veliz - Lap appy and lap excision of R fallopian tube remnant Status post cholecystectomy Status post LEEP (loop electrosurgical excision procedure) of cervix THUMB RECONSTRUCTION left; in childhood Social History Smoking/Tobacco Use Status: Never Smoking risk assessment performed?: Yes Alcohol Intake: current Alcohol Intake frequency: 0-2 drinks per day Drug use: Daily Substance use type: marijuana Current gender identity: female Do you feel safe at home: Yes Do you feel safe in your relationship?: Yes Additional Social history: Patient is and with one child.
[2020-08-17] MEDS: HYDROmorphone 2 MG/ML VIAL 0.5 MG IVP (08:54)
[2020-08-17 11:18] LABS: Anion Gap 10.2 mmol/L (3-11); BUN 9 mg/dL (7-18); CO2 20.8 mmol/L (21.0-32.0); CREATININE 1.2 mg/dL (0.55-1.02); Chloride 109 mmol/L (98-107); Estimated GFR 49.51 (mL/min/1.73m2); Glucose 110 mg/dL (74-106); Potassium 3.8 mmol/L (3.5-5.1); Sodium 140 mmol/L (136-145)
== END 2020-08-17 12:57 | disposition home or self-care (01) | DRG 593 ==
LOC: ER 18:36 → MS 18:39
PROVIDERS: Nurse Practitioner Family; Registered Nurse Emergency; Admitting Provider Family Medicine; Emergency Provider Physician Assistant; PCP Family Medicine; Visit Provider Family Medicine
DX: L98.411 Non-pressure chronic ulcer of buttock limited to breakdown of skin (principal); D68.51 Activated protein C resistance; L98.491 Non-pressure chronic ulcer of skin of other sites limited to breakdown of skin; J45.909 Unspecified asthma, uncomplicated; F90.0 Attention-deficit hyperactivity disorder, predominantly inattentive type; Z79.01 Long term (current) use of anticoagulants; E03.9 Hypothyroidism, unspecified; F41.0 Panic disorder [episodic paroxysmal anxiety]; N28.9 Disorder of kidney and ureter, unspecified; Z86.718 Personal history of other venous thrombosis and embolism; F32.9 Major depressive disorder, single episode, unspecified; K21.9 Gastro-esophageal reflux disease without esophagitis; E53.8 Deficiency of other specified B group vitamins; F12.19 Cannabis abuse with unspecified cannabis-induced disorder; Z20.822 Contact with and (suspected) exposure to COVID-19; L50.9 Urticaria, unspecified
CPT/HCPCS: 36410; 36415; 80048; 80053; 85652; 87040; 87081; 87635; 94640; 96365; 96375; 99285; 81003; 81015; 83605; 83735; 85025; 85610; 86140; 87070; 87205; 99223; 99239; 99284; J1200; J2060; J3490

== ENCOUNTER 2020-08-29 16:17 | Outpatient (REF) | payer MEDICARE, MEDICAID, SELFPAY ==
[2020-08-29 17:06] LABS: Bacteria Negative HPF (Negative); C & S Indicated? C&S Done As Ordered; Casts Negative LPF (Negative); Crystals Negative HPF (Negative); Epithelial Cells Rare HPF (Negative); Mucus Negative (Negative); RBC >50 HPF (0-2); WBC 0-2 HPF (0-5)
== END 2020-08-29 16:18 | disposition home or self-care (01) ==
LOC: NCHCN 16:17
PROVIDERS: PCP Family Medicine; Visit Provider Family Medicine
DX: R31.9 Hematuria, unspecified (principal)
CPT/HCPCS: 81015; 87086

== ENCOUNTER 2021-01-08 16:06 | Outpatient (REF) | payer MEDICARE, MEDICAID, SELFPAY ==
[2021-01-13 12:54] LABS: 2-OH-Ethyl-Flurazepam Negative ng/mL (Cutoff: 10); 7-NH-Clonazepam 61 ng/mL (Cutoff: 10); 7-NH-Flunitrazepam Negative ng/mL (Cutoff: 10); Alpha OH-Alprazolam Negative ng/mL (Cutoff: 10); Alpha-OH Midazolam Negative ng/mL (Cutoff: 10); Alpha-OH-Triazolam Negative ng/mL (Cutoff: 10); Alprazolam Negative ng/mL (Cutoff: 10); Benzodiazepines Interpretation Positive.; Chlordiazepoxide Negative ng/mL (Cutoff: 10); Clobazam Negative ng/mL (Cutoff: 10); Clonazepam Negative ng/mL (Cutoff: 10); Diazepam Negative ng/mL (Cutoff: 10); Flurazepam Negative ng/mL (Cutoff: 10); Lorazepam Negative ng/mL (Cutoff: 10); Midazolam Negative ng/mL (Cutoff: 10); Prazepam Negative ng/mL (Cutoff: 10); Temazepam Negative ng/mL (Cutoff: 10); Triazolam Negative ng/mL (Cutoff: 10); Zolpidem Carboxylic acid Negative ng/mL (Cutoff: 10)
[2021-01-15 06:54] LABS: Amphetamine 162 ng/mL (Cutoff: 25); Amphetamines Interpretation Positive.; MDA (Ecstasy Metabolite) Negative ng/mL (Cutoff: 25); MDMA (Ecstasy) Negative ng/mL (Cutoff: 25); Methamphetamine Negative ng/mL (Cutoff: 25); Phentermine Negative ng/mL (Cutoff: 25); Pseudoephedrine/Ephedrine Negative ng/mL (Cutoff: 25)
[2021-01-15 12:20] LABS: Codeine Negative ng/mL (Cutoff: 25); Dihydrocodeine 3224 ng/mL (Cutoff: 25); Hydrocodone 8244 ng/mL (Cutoff: 25); Hydromorphone 483 ng/mL (Cutoff: 25); Morphine Negative ng/mL (Cutoff: 25); Naloxone Negative ng/mL (Cutoff: 25); Norhydrocodone 9071 ng/mL (Cutoff: 25); Noroxycodone Negative ng/mL (Cutoff: 25); Noroxymorphone Negative ng/mL (Cutoff: 25); Opiates Interpretation Positive.
== END 2021-01-08 16:07 | disposition home or self-care (01) ==
LOC: NCHCN 16:06
PROVIDERS: PCP Family Medicine; Visit Provider Nurse Practitioner Psychiatric/Mental Health
DX: F90.0 Attention-deficit hyperactivity disorder, predominantly inattentive type (principal); F41.8 Other specified anxiety disorders
CPT/HCPCS: 80324; 80361; 80362; 80365; 80346

== ENCOUNTER 2021-02-12 14:50 | Outpatient (REF) | payer MEDICARE, MEDICAID, SELFPAY ==
[2021-02-15 05:31] LABS: Carboxy-THC Interpretation Positive.; Delta-9 CarboxyThc by LC-MS/MS 281 ng/mL (Cutoff:<3)
[2021-02-15 09:32] LABS: Codeine Negative ng/mL (Cutoff: 25); Dihydrocodeine 158 ng/mL (Cutoff: 25); Hydrocodone 1209 ng/mL (Cutoff: 25); Hydromorphone Negative ng/mL (Cutoff: 25); Morphine Negative ng/mL (Cutoff: 25); Naloxone Negative ng/mL (Cutoff: 25); Norhydrocodone 390 ng/mL (Cutoff: 25); Noroxycodone 427 ng/mL (Cutoff: 25); Noroxymorphone Negative ng/mL (Cutoff: 25); Opiates Interpretation Positive.
[2021-02-15 10:28] LABS: Amphetamine Negative ng/mL (Cutoff: 25); Amphetamines Interpretation Negative.; MDA (Ecstasy Metabolite) Negative ng/mL (Cutoff: 25); MDMA (Ecstasy) Negative ng/mL (Cutoff: 25); Methamphetamine Negative ng/mL (Cutoff: 25); Phentermine Negative ng/mL (Cutoff: 25); Pseudoephedrine/Ephedrine Negative ng/mL (Cutoff: 25)
[2021-02-15 10:51] LABS: Benzoylecgonine Negative ng/mL (Cutoff: 50); Cocaine Negative ng/mL (Cutoff: 50); Cocaine Interpretation Negative.
[2021-02-16 01:45] LABS: Methylphenidate 39 ng/mL (Cutoff: 10); Ritalinic Acid 2905 ng/mL (Cutoff: 50)
[2021-02-19 16:13] LABS: 2-OH-Ethyl-Flurazepam Negative ng/mL (Cutoff: 10); 7-NH-Clonazepam 551 ng/mL (Cutoff: 10); 7-NH-Flunitrazepam Negative ng/mL (Cutoff: 10); Alpha OH-Alprazolam Negative ng/mL (Cutoff: 10); Alpha-OH Midazolam Negative ng/mL (Cutoff: 10); Alpha-OH-Triazolam Negative ng/mL (Cutoff: 10); Alprazolam Negative ng/mL (Cutoff: 10); Benzodiazepines Interpretation Positive.; Chlordiazepoxide Negative ng/mL (Cutoff: 10); Clobazam Negative ng/mL (Cutoff: 10); Clonazepam Negative ng/mL (Cutoff: 10); Diazepam Negative ng/mL (Cutoff: 10); Flurazepam Negative ng/mL (Cutoff: 10); Lorazepam Negative ng/mL (Cutoff: 10); Midazolam Negative ng/mL (Cutoff: 10); N-Desmethylclobazam Negative ng/mL (Cutoff: 10); Prazepam Negative ng/mL (Cutoff: 10); Temazepam Negative ng/mL (Cutoff: 10); Triazolam Negative ng/mL (Cutoff: 10); Zolpidem Carboxylic acid Negative ng/mL (Cutoff: 10)
== END 2021-02-12 14:51 | disposition home or self-care (01) ==
LOC: NCHCN 14:50
PROVIDERS: PCP Family Medicine; Visit Provider Nurse Practitioner Psychiatric/Mental Health
DX: F90.0 Attention-deficit hyperactivity disorder, predominantly inattentive type (principal); F12.19 Cannabis abuse with unspecified cannabis-induced disorder; F11.99 Opioid use, unspecified with unspecified opioid-induced disorder
CPT/HCPCS: 80324; 80349; 80360; 80361; 80362; 80365; 80346; 80353

== ENCOUNTER 2021-03-08 16:00 | Outpatient (REF) | payer MEDICARE, MEDICAID, SELFPAY ==
[2021-03-10 14:19] LABS: COVID-19 RT-PCR UVMMC Result Negative (Negative)
== END 2021-03-08 16:01 | disposition home or self-care (01) ==
LOC: NCHCN 16:00
PROVIDERS: PCP Family Medicine; Visit Provider Family Medicine
DX: Z20.822 Contact with and (suspected) exposure to COVID-19 (principal)
CPT/HCPCS: U0003; U0005

== ENCOUNTER 2021-05-03 08:24 | Observation (INO) | payer MEDICARE, MEDICAID, SELFPAY ==
[2021-05-03] VITALS (59 sets, daily range): BP systolic 90–137; BP diastolic 38–90; PULSE 71–106; RESP 12–29; TEMP 35.3–36.5; O2SAT 94–99
--- NOTE | 2021-05-03 08:27 | W.ED.GENAD ---
Discharge Plan Disposition Patient Disposition: [facility] INPATIENT Condition: Stable Discharge Details Clinical Impression: Intractable nausea and vomiting, COVID-19, UTI (urinary tract infection) Admit Date/Time: 05/03/21 14:08 Admit Provider: Loli Conklin Attending Provider: Loli Conklin Primary Care Provider: Patrica Lopez ED Provider: Liliana Ku Discharge Data Discharge Date/Time-TO BE ENTERED AT DEPARTURE: 05/03/21 15:15 Medical Decision Making 0845 -- 41-year-old female with a history of factor V Leiden, DVT, PE on chronic anticoagulation, GERD, migraines, hypothyroidism, asthma and depression presents for vomiting and headache since last night. Heart rate mildly elevated. Patient appears somewhat uncomfortable but nontoxic. Moist mucous membranes. No focal deficits. Abdomen soft and minimally tender in the epigastrium. Lungs are clear. No lower extremity swelling. Review of records note that patient was admitted here in April 2020 for colitis, early July 2020 for enterocolitis and late July 2020 for skin ulcers and supratherapeutic INR. Patient has been admitted to the hospital several times for intractable nausea and vomiting in the past. She has not taken any of her antiemetics at home since onset of her symptoms. Review of records note that she has a history of agitation with prednisone but denies any known history of taking Decadron. She denies any known history of anaphylaxis to steroids. Differential diagnosis includes electrolyte abnormality, gastroenteritis, migraines, CVA, COVID, cannabinoid hyperemesis syndrome, etc. Will place an IV, bolus IV fluids, screening labs, urinalysis, CT head, chest x-ray and covid swab. 1000 -- labs and imaging reviewed. COVID swab positive. Normal WBC, hemoglobin, platelets. Potassium 3.4. CT head and chest x-ray negative. 1150 -- patient denies any relief of her symptoms after multiple medications and states her nausea has returned. Will order a dose of Compazine and Benadryl and additional fluids. Will admit for intractable nausea and vomiting. 1200 --discussed with hospital service who is recommending trying Toradol, Fioricet and magnesium and reassess. If patient has no significant improvement in 1 hour, will admit for intractable nausea and vomiting in the setting of likely COVID-19 as a precipitating factor. 1330 --patient reassessed and still complaining of some headache and nausea. She appears nontoxic and has no focal deficits. Do not see an indication for additional head imaging or LP at this time. Suspect COVID as a main contributing etiology of her symptoms in a patient with h/o migraines and multiple admission for intractable nausea and vomiting. Case discussed with hospitalist who accepts patient for admission. UA resulted and noted nitrates -- treated with antibiotics per hospitalist service. Medical Records Medical records reviewed: Yes I reviewed the patient's medical records. Imaging Data Radiologic Study: Radiologist's impression: CT HEAD WO CLINICAL HISTORY: headache, vomiting, r/o acute bleed. TECHNIQUE: Imaging Protocol: Axial computed tomography images with coronal and sagittal reformatted images were created and reviewed COMPARISON: CT CT HEAD WO from 09/16/2019 FINDINGS: There are no skull fractures. However, on the present study there is mucosal thickening noted in the floor both maxillary sinuses, not associated with fluid leve on the right side but with tiny fluid level on the left side. The oil air cells exhibit mild mucosal thickening bilateral. The sphenoid sinuses are clear. Mild mucosal thickening noted at the frontoethmoidal recesses bilaterally. No fluid levels within the actual frontal sinuses. There is no evidence of intracranial hemorrhage, mass effect, or shift of midline structures. There are no extra-axial fluid collections. The ventricles are not enlarged or shifted and there is no blood within the ventricular system nor within the basal cisterns. IMPRESSION: No acute intracranial findings on this noninfused CT scan of the brain. Mild sinus disease as described above XR CHEST 2V PA LATERAL CLINICAL HISTORY: diffculty breathing, r/o acute disease. TECHNIQUE: 2D digital imaging was performed. COMPARISON: CR,XR XR CHEST 2V PA LATERAL from 07/13/2020 FINDINGS: Heart size is normal. The mediastinum is not widened. Lungs are clear. No infiltrates nor pleural effusions. IMPRESSION: No acute pulmonary findings. Lab Data Lab results reviewed: Yes I reviewed the patient's lab results. Labs: 05/03/21 12:05 Urine - Reflex from Ua Urine Culture - Pending Laboratory Tests Range/Units 05/03/21 05/03/21 05/03/21 09:04 09:08 09:08 WBC (4.4-10.8) 10^3/uL 6.39 RBC (3.93-5.22) 10^6/uL 4.48 Hgb (11.2-15.7) g/dL 12.9 Hct (36.0-46.0) % 38.3 MCV (80-95) fL 85.5 MCH (27.0-33.0) pg 28.8 MCHC (32.0-36.0) % 33.7 RDW (11.7-14.6) % 13.0 Plt Count (130-400) 10^3/uL 209 MPV (8.0-11.0) fL 10.5 Immature Gran % 0.3 Neutrophils % 82.5 Lymphocytes % 4.7 Monocytes % 11.3 Eosinophils % 0.9 Basophils % 0.3 Nucleated RBC % % 0 Absolute Neutrophils (1.2-6.7) 10^3/uL 5.27 Absolute Lymphocytes (1.2-3.4) 10^3/uL 0.30 L Absolute Monocytes (0.1-0.8) 10^3/uL 0.72 Absolute Eosinophils (0.0-0.7) 10^3/uL 0.06 Absolute Basophils (0.0-0.2) 10^3/uL 0.02 PT (9.3-11.0) sec INR (0.9-1.1) APTT (21.0-27.5) sec Sodium (136-145) mmol/L 137 Potassium (3.5-5.1) mmol/L 3.4 L Chloride (98-107) mmol/L 102 Carbon Dioxide (21.0-32.0) mmol/L 25.3 Anion Gap (3-11) mmol/L 9.7 BUN (7-18) mg/dL 13 Creatinine (0.55-1.02) mg/dL 1.0 Estimated GFR/1.73 m2 (mL/min/1.73m2) >= 60.00 Glucose (74-106) mg/dL 138 H Calcium (8.5-10.1) mg/dL 8.3 L Magnesium (1.8-2.4) mg/dL Total Bilirubin (0.2-1.0) mg/dL 0.3 AST (15-37) U/L 23 ALT (14-59) U/L 27 Alkaline Phosphatase (46-116) U/L 51 Troponin I (<or=60) ng/L Total Protein (6.4-8.2) g/dL 7.3 Albumin (3.4-5.0) g/dL 4.2 Urine Color (Yellow) Urine Clarity (Clear) Urine pH (5-8) Ur Specific [place] (1.005-1.025) Urine Protein (Negative) mg/dL Urine Ketones (Negative) mg/dL Urine Blood (Negative) Urine Nitrite (Negative) Urine Bilirubin (Negative) Urine Urobilinogen (Up TO 0.2) EU/dL Ur Leukocyte Esterase (Negative) Urine RBC (0-2) HPF Urine WBC (0-5) HPF Ur Epithelial Cells (Negative) HPF Urine Crystals (Negative) HPF Urine Bacteria (Negative) HPF Urine Casts (Negative) LPF Urine Mucus (Negative) Ur Culture Indicated? Urine Glucose (Negative) mg/dL COVID-19 Source Nasal/Nares SARS-CoV-2 (PCR) (Negative) POSITIVE A* Range/Units 05/03/21 05/03/21 05/03/21 09:08 10:05 12:05 WBC (4.4-10.8) 10^3/uL RBC (3.93-5.22) 10^6/uL Hgb (11.2-15.7) g/dL Hct (36.0-46.0) % MCV (80-95) fL MCH (27.0-33.0) pg MCHC (32.0-36.0) % RDW (11.7-14.6) % Plt Count (130-400) 10^3/uL MPV (8.0-11.0) fL Immature Gran % Neutrophils % Lymphocytes % Monocytes % Eosinophils % Basophils % Nucleated RBC % % Absolute Neutrophils (1.2-6.7) 10^3/uL Absolute Lymphocytes (1.2-3.4) 10^3/uL Absolute Monocytes (0.1-0.8) 10^3/uL Absolute Eosinophils (0.0-0.7) 10^3/uL Absolute Basophils (0.0-0.2) 10^3/uL PT (9.3-11.0) sec 11.0 INR (0.9-1.1) 1.1 APTT (21.0-27.5) sec 24.0 Sodium (136-145) mmol/L Potassium (3.5-5.1) mmol/L Chloride (98-107) mmol/L Carbon Dioxide (21.0-32.0) mmol/L Anion Gap (3-11) mmol/L BUN (7-18) mg/dL Creatinine (0.55-1.02) mg/dL Estimated GFR/1.73 m2 (mL/min/1.73m2) Glucose (74-106) mg/dL Calcium (8.5-10.1) mg/dL Magnesium (1.8-2.4) mg/dL 1.6 L Total Bilirubin (0.2-1.0) mg/dL AST (15-37) U/L ALT (14-59) U/L Alkaline Phosphatase (46-116) U/L Troponin I (<or=60) ng/L < 50 Total Protein (6.4-8.2) g/dL Albumin (3.4-5.0) g/dL Urine Color (Yellow) Yellow Urine Clarity (Clear) Clear Urine pH (5-8) 6.0 Ur Specific [place] (1.005-1.025) >= 1.030 H Urine Protein (Negative) mg/dL Negative Urine Ketones (Negative) mg/dL Negative Urine Blood (Negative) Small H Urine Nitrite (Negative) Positive H Urine Bilirubin (Negative) Negative Urine Urobilinogen (Up TO 0.2) EU/dL 0.2 Ur Leukocyte Esterase (Negative) Negative Urine RBC (0-2) HPF 3-5 H Urine WBC (0-5) HPF 0-2 Ur Epithelial Cells (Negative) HPF Rare Urine Crystals (Negative) HPF Negative Urine Bacteria (Negative) HPF Moderate Urine Casts (Negative) LPF Negative Urine Mucus (Negative) Negative Ur Culture Indicated? Yes Urine Glucose (Negative) mg/dL Negative COVID-19 Source SARS-CoV-2 (PCR) (Negative) ECG Data Attestation: I personally reviewed and interpreted this ECG (s) as follows: Interpretation: Rate of 98, sinus, no acute ST elevation or depression. AR 164. QRS 82. QTc 447. HPI General Mode of arrival: ambulatory. Date/Time Provider Initiated Documentation: 05/03/21 08:25. Limitations to Documentation: no limitations. Information obtained by: patient. HPI Narrative: Patient is a 41-year-old female with a history of factor V [place], DVT, PE, on chronic anticoagulation previously on Coumadin now on Lovenox, migraines, hypothyroidism, asthma and depression who presents for vomiting and headache since last night. Patient states her headache is diffuse and almost near 10/10. She has been vomiting all night long which is mainly bilious. She states the headache is more intense and more generalized than her usual migraine headache. She gave herself a sumatriptan injection for headache without relief. She has not taken any medication for nausea and vomiting. She does admit to headache, shortness of breath, chest pain and upper abdominal pain from vomiting. She denies any known fever, coughing, diarrhea. She is not vaccinated for COVID but denies any known exposure to coronavirus. Related Data Home Medications Medication Instructions Recorded Confirmed Citracal Plus Bone Density 1 ea PO BID tab-cap 11/09/12 05/03/21 Space Chamber Plus #1 spacer 05/01/14 05/03/21 cyproheptadine 4 mg PO HS #90 tab-cap 06/04/16 05/03/21 naloxone [Narcan] 4 mg NS DAILY PRN PRN #2 spray 12/08/16 05/03/21 triamcinolone acetonide 0.1 % 1 applic TOPICAL BID PRN #60 gm 09/05/19 05/03/21 topical cream methylphenidate HCl 20 mg tablet 20 mg PO TID #84 tab-cap MDD 60 mg 10/20/19 05/03/21 diphenhydramine HCl [Benadryl 100 mg PO HS 12/13/19 05/03/21 Allergy] sucralfate 1 gram tablet 1 g PO AC & HS #120 tab 12/30/19 05/03/21 clotrimazole-betamethasone 1 1 applic TOPICAL BID PRN #45 gm 02/22/20 05/03/21 %-0.05 % topical cream epinephrine 0.3 mg/0.3 mL 0.3 mg IM ONCE #1 ea 02/22/20 05/03/21 injection, auto-injector fluticasone propionate 220 2 inh INHALATION BID #3 inhaler 02/22/20 05/03/21 mcg/actuation HFA aerosol inhaler levothyroxine 125 mcg tablet 125 mcg PO .AM #90 tab 02/22/20 05/03/21 omeprazole 40 mg capsule,delayed 40 mg PO DAILY #90 cap 02/22/20 05/03/21 release albuterol sulfate 90 mcg/actuation 2 puff INHALATION Q6H PRN #3 03/07/20 05/03/21 aerosol inhaler inhaler MDD 6 puffs ondansetron HCl 8 mg tablet 8 mg PO BID PRN #20 tab 03/07/20 05/03/21 sumatriptan succinate 6 mg/0.5 mL 6 mg SUBCUT ONCE PRN #90 syrg MDD 03/07/20 05/03/21 subcutaneous pen injector 12mg clonazepam 1 mg tablet 1 mg PO TID PRN #90 tab 03/20/20 05/03/21 Zyrtec 10 mg PO DAILY 08/16/20 05/03/21 acidophilus-pectin, citrus 1 tab PO DAILY 08/16/20 05/03/21 hydrocodone-acetaminophen 1 tab PO BID PRN 08/16/20 05/03/21 ondansetron HCl [Zofran] 4 mg PO DAILY PRN 08/16/20 05/03/21 polyethylene glycol 3350 [Miralax] 17 g PO DAILY PRN 08/16/20 05/03/21 topiramate [Topamax] 200 mg PO BID 08/16/20 05/03/21 albuterol sulfate 2.5 mg INHALATION TID 05/03/21 05/03/21 warfarin 0 mg PO DAILY 05/03/21 05/03/21 Previous Rx's Medication Instructions Recorded Space Chamber Plus #1 spacer 05/01/14 naloxone [Narcan] 4 mg NS DAILY PRN PRN #2 spray 12/08/16 triamcinolone acetonide 0.1 % 1 applic TOPICAL BID PRN #60 gm 09/05/19 topical cream methylphenidate HCl 20 mg tablet 20 mg PO TID #84 tab-cap MDD 60 mg 10/20/19 sucralfate 1 gram tablet 1 g PO AC & HS #120 tab 12/30/19 clotrimazole-betamethasone 1 1 applic TOPICAL BID PRN #45 gm 02/22/20 %-0.05 % topical cream epinephrine 0.3 mg/0.3 mL 0.3 mg IM ONCE #1 ea 02/22/20 injection, auto-injector fluticasone propionate 220 2 inh INHALATION BID #3 inhaler 02/22/20 mcg/actuation HFA aerosol inhaler levothyroxine 125 mcg tablet 125 mcg PO .AM #90 tab 02/22/20 omeprazole 40 mg capsule,delayed 40 mg PO DAILY #90 cap 02/22/20 release albuterol sulfate 90 mcg/actuation 2 puff INHALATION Q6H PRN #3 03/07/20 aerosol inhaler inhaler MDD 6 puffs ondansetron HCl 8 mg tablet 8 mg PO BID PRN #20 tab 03/07/20 sumatriptan succinate 6 mg/0.5 mL 6 mg SUBCUT ONCE PRN #90 syrg MDD 03/07/20 subcutaneous pen injector 12mg clonazepam 1 mg tablet 1 mg PO TID PRN #90 tab 03/20/20 Allergies Allergy/AdvReac Type Severity Reaction Status Date / Time aripiprazole [From Abilify] Allergy Severe Rash, hives Verified 05/03/21 08:42 doxycycline Allergy Severe Anaphylaxsi Verified 05/03/21 08:42 s levetiracetam [From Keppra] Allergy Severe RASH/HIVES Verified 05/03/21 08:42 sulfamethoxazole Allergy Severe Hives Verified 05/03/21 08:42 venom-honey bee Allergy Severe unknown Verified 05/03/21 08:42 Penicillins Allergy Intermediate Skin Rash Verified 05/03/21 08:42 chlorhexidine Allergy Unknown unknown Verified 05/03/21 08:42 Sulfa (Sulfonamide Allergy Verified 05/03/21 08:42 Antibiotics) mold AdvReac Severe Wheezing Verified 05/03/21 08:42 oxycodone [Oxycodone] AdvReac Severe vomits Verified 05/03/21 08:42 paroxetine AdvReac Severe Irritability Verified 05/03/21 08:42 and anger dicloxacillin [Dicloxacillin] AdvReac Mild Nausea Verified 05/03/21 08:42 gabapentin AdvReac Mild hives Verified 05/03/21 08:42 prednisone AdvReac Agitation Verified 05/03/21 08:42 trazodone AdvReac shortness Verified 05/03/21 08:42 of breath verapamil [Verapamil] AdvReac Worsening Verified 05/03/21 08:42 migraine nuts Allergy Severe Anaphylaxsi Uncoded 05/03/21 08:42 s General RYNE: 3 Review of Systems All systems reviewed & are unremarkable except as noted in HPI and below Constitutional Constitutional: Reports as per HPI, Denies chills, Denies fever(s) and Reports headache(s) Eyes Eyes: Denies blurry vision ENT Ears, Nose, Mouth, and Throat: Denies dizziness, Reports headache(s), Denies sore throat and Denies throat swelling Cardiovascular Cardiovascular: Denies chest pain and Denies dyspnea Respiratory Respiratory: Denies cough and Denies dyspnea Gastrointestinal Gastrointestinal: Denies abdominal pain, Denies diarrhea and Reports vomiting Genitourinary Genitourinary: Denies hematuria and Denies dysuria Musculoskeletal Musculoskeletal: Denies back pain and Denies numbness Integumentary/Breasts Skin/Breast: Denies lesions and Denies rash Neurologic Neurologic: Denies dizziness, Reports headache(s), Denies localized weakness and Denies numbness Allergic/Immunologic Allergic/Immunologic: Denies throat swelling PFSH All Active Problems (Updated 05/04/21 @ 09:43 by Liliana Ku DO) Hypokalemia (Acute) COVID-19 (Acute) UTI (urinary tract infection) (Acute) Hypomagnesemia (Acute) Intractable nausea and vomiting (Acute) SARS-CoV-2 positive (Acute) Intractable nausea and vomiting (Acute) Enterocolitis (Acute) Gastroesophagitis (Acute) Leukocytosis, unspecified (Acute) Intractable nausea and vomiting (Acute) Chronic anticoagulation (Chronic) On coumadin Cyclic vomiting syndrome (Acute) Migraine headache (Chronic) Hypothyroidism (Chronic) Panic disorder (Chronic 03/21/16) Chronic back pain greater than 3 months duration (Chronic 12/29/14) Asthma (Chronic 11/08/12) ADHD (attention deficit hyperactivity disorder), 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) B12 deficiency (Chronic) Factor V Leiden mutation (Chronic) Medical History (Updated 05/04/21 @ 09:43 by Liliana Ku DO) Acute deep vein thrombosis (DVT) of left lower extremity Acute renal insufficiency Candidiasis Cellulitis of left leg Chronic anticoagulation Cyst of fallopian tube Depression GERD (gastroesophageal reflux disease) Hematuria History of DVT (deep vein thrombosis) Iatrogenic pulmonary embolism and infarction Intractable vomiting with nausea Left buttock abscess Left lower quadrant pain (01/27/12) Nephrolithiasis Orbital cellulitis on left Other enthesopathies, not elsewhere classified (03/21/16) Neck Preseptal cellulitis of left eye Recurrent deep vein thrombosis (DVT) Right lower quadrant abdominal pain inflamed/ruptured fallopian tube on the right Thrombosis of arteries of lower extremity Vaginal candidiasis Surgical History Abdominal hysterectomy (~2009) 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) Arthroplasty of knee (~1999) left Bilateral salpingectomy with oophorectomy (~2008) Cervical Conization/LEEP LEEP 2003 [facility] BX 2003 Cholecystectomy History of arthroscopy of knee S/P appendectomy (12/24/17) Dr Veliz - Car appy and lap excision of R fallopian tube remnant Status post cholecystectomy Status post LEEP (loop electrosurgical excision procedure) of cervix THUMB RECONSTRUCTION left; in childhood Social History Smoking/Tobacco Use Status: Never Smoking risk assessment performed?: Yes Alcohol Intake: current Alcohol Intake frequency: 0-2 drinks per day Drug use: Daily Substance use type: marijuana Current gender identity: female Do you feel safe at home: Yes Do you feel safe in your relationship?: Yes Additional Social history: Patient is and with one child. Exam Const General: cooperative and no acute distress HENMT Head: normal to inspection Face and sinus: normal facial exam Eyes General: appearance normal, both eyes and all related structures Pupils: PERRL EOM: EOM intact bilaterally Neck Neck: normal visual inspection and No submandibular swelling Lymphatic: no lymphadenopathy noted Chest Chest: normal inspection of the chest and no tenderness Resp Effort & Inspection: normal respiratory effort and able to speak in complete sentences Auscultation: clear to auscultation bilaterally Cardio Rate: regular rate Rhythm: regular rhythm GI Inspection: normal to inspection Palpation: soft, not firm, not rigid and nontender Auscultation: normal bowel sounds Back/Spine/Pelvis Pelvis: no pain with anterior-posterior compression Skin General skin exam: no rashes or lesions noted Neuro General: patient alert, patient awake, patient oriented x3, moves all extremities, no meningeal signs, no focal motor deficits and CN's II-XI intact bilaterally Cranial Nerves: CN's II-XI intact bilaterally Cognition: normal cognition Speech: speech normal Motor: muscle tone normal throughout and strength 5/5 throughout Sensory Exam: no sensory deficits noted Extrem General: normal to inspection, full ROM, capillary refill normal, no calf tenderness bilaterally and no edema Psych Appearance: grossly normal Mental Status: mental status grossly normal Speech and Movement: speech and movement normal Affect: normal affect
--- NOTE | 2021-05-03 09:00 | DI.CT_ITS ---
Exam(s) CT HEAD WO EXAM: CT HEAD WO CLINICAL HISTORY: headache, vomiting, r/o acute bleed. TECHNIQUE: Imaging Protocol: Axial computed tomography images with coronal and sagittal reformatted images were created and reviewed COMPARISON: CT CT HEAD WO from 09/16/2019 FINDINGS: There are no skull fractures. However, on the present study there is mucosal thickening noted in th e floor both maxillary sinuses, not associated with fluid leve on the right side but with tiny fluid level on the left side. The oil air cells exhibit mild mucosal thickening bilateral. The sphenoid s inuses are clear. Mild mucosal thickening noted at the frontoethmoidal recesses bilaterally. No flu id levels within the actual frontal sinuses. There is no evidence of intracranial hemorrhage, mass effect, or shift of midline structures. There are no extra-axial fluid collections. The ventricles are not enlarged or shifted and there is no blo od within the ventricular system nor within the basal cisterns. IMPRESSION: No acute intracranial findings on this noninfused CT scan of the brain. Mild sinus disease as described above RADIATION DOSE DELIVERED: 733.35mGy.cm Total DLP DATA REPOSITORY: All CT scans at this facility are submitted to the National Radiology Data Registry (NRDR) Dose Index Registry (DIR) with the [employer] ([employer]). RADIATION OPTIMIZATION: All CT scans at this facility use at least one of these dose optimization te chniques: automated exposure control; mA and/or kV adjustment per patient size (includes targeted exa ms where dose is matched to clinical indication); or iterative reconstruction.
--- NOTE | 2021-05-03 09:00 | DI.RAD_ITS ---
Exam(s) XR CHEST 2V PA LATERAL EXAM: XR CHEST 2V PA LATERAL CLINICAL HISTORY: diffculty breathing, r/o acute disease. TECHNIQUE: 2D digital imaging was performed. COMPARISON: CR,XR XR CHEST 2V PA LATERAL from 07/13/2020 FINDINGS: Heart size is normal. The mediastinum is not widened. Lungs are clear. No infiltrates nor pleural effusions. IMPRESSION: No acute pulmonary findings. DATA REPOSITORY: RADIATION DOSE DELIVERED:
--- NOTE | 2021-05-03 09:15 | RT.EKG_ITS ---
APPROVED REPORT Exam: Resting ECG Reason for Exam: chest pain Patient Location: E HR:98 bpm ECG Measurements Heart Rate 98 AXIS NM 164 P 67 QRSd 82 QRS -19 QT 350 T 33 QTc 447 Conclusion Sinus rhythm...normal P axis, V-rate 60- 99 Probable left atrial enlargement...P >50mS, <-0.10mV V1 Sinus. No STEMI. I have reviewed and interpreted ECG and agree with software generated interpretation.
[2021-05-03 09:23] LABS: Source Nasal/Nares
[2021-05-03 09:35] LABS: ALT 27 U/L (14-59); AST 23 U/L (15-37); Albumin 4.2 g/dL (3.4-5.0); Alkaline Phosphatase 51 U/L (46-116); Anion Gap 9.7 mmol/L (3-11); BUN 13 mg/dL (7-18); Bilirubin, Total 0.3 mg/dL (0.2-1.0); CO2 25.3 mmol/L (21.0-32.0); Calcium 8.3 mg/dL (8.5-10.1); Chloride 102 mmol/L (98-107); Glucose 138 mg/dL (74-106); Potassium 3.4 mmol/L (3.5-5.1); Sodium 137 mmol/L (136-145); Total Protein 7.3 g/dL (6.4-8.2)
[2021-05-03] MEDS: Normal Saline 1,000 ML 1000 ML IV ×2 (09:54→12:05)
[2021-05-03 09:55] LABS: Abs Immature Grans 0.02 10^3/uL (0.0-0.06); Absolute Basophil Count 0.02 10^3/uL (0.0-0.2); Absolute Eosinophil Count 0.06 10^3/uL (0.0-0.7); Absolute Monocyte Count 0.72 10^3/uL (0.1-0.8); Absolute Neutrophil Count 5.27 10^3/uL (1.2-6.7); Basophils % 0.3; Eosinophils % 0.9; HCT 38.3 % (36.0-46.0); HGB 12.9 g/dL (11.2-15.7); Immature Grans % 0.3; Lymphocytes % 4.7; MCH 28.8 pg (27.0-33.0); MCHC 33.7 % (32.0-36.0); MCV 85.5 fL (80-95); MPV 10.5 fL (8.0-11.0); Monocytes % 11.3; Neutrophils % 82.5; Nucleated RBC 0 %; Platelet Count 209 10^3/uL (130-400); RBC 4.48 10^6/uL (3.93-5.22); RDW-SD 40.3 fL; WBC 6.39 10^3/uL (4.4-10.8)
[2021-05-03] MEDS: ACETAMINOPHEN 1,000 MG/100 ML BTL 400 MG IVPB (09:55)
[2021-05-03] MEDS: Dexamethasone 10 MG/ML VIAL IVP (10:06)
[2021-05-03] MEDS: diazePAM 10 MG/2 ML SYR 2 MG IVP ×2 (10:07→17:26)
[2021-05-03 10:08] LABS: COVID-19 PCR POSITIVE (Negative)
[2021-05-03 10:47] LABS: INR 1.1 (0.9-1.1)
[2021-05-03 10:47] LABS: Magnesium 1.6 mg/dL (1.8-2.4); Troponin I < 50 ng/L (<or=60)
[2021-05-03] MEDS: HYDROmorphone 2 MG/ML VIAL 1 MG IVP ×2 (11:40→17:26)
[2021-05-03] MEDS: diphenhydrAMINE 50 MG/ML VIAL 25 MG IVP (12:05)
[2021-05-03] MEDS: Prochlorperazine 10 MG/2 ML VIAL IVP (12:06)
[2021-05-03 12:32] LABS: Bilirubin Negative (Negative); Blood Small (Negative); Clarity Clear (Clear); Glucose Negative (Negative); Ketones Negative (Negative); Leukocyte Esterase Negative (Negative); Nitrite Positive (Negative); Specific Gravity >= 1.030 (1.005-1.025); Urobilinogen 0.2 EU/dL (Up TO 0.2)
[2021-05-03] MEDS: Ketorolac 30 MG/ML VIAL IVP (12:42)
[2021-05-03] MEDS: Butalbital/Acetaminophen/Caffeine 50/325/40 TAB PO ×2 (12:43→21:56)
[2021-05-03 12:45] LABS: Epithelial Cells Rare HPF (Negative); WBC 0-2 HPF (0-5)
[2021-05-03 12:46] LABS: Bacteria Moderate HPF (Negative); C & S Indicated? Yes; Casts Negative LPF (Negative); Crystals Negative HPF (Negative); Mucus Negative (Negative)
[2021-05-03] MEDS: MAGNESIUM SULFATE 2 GM/50 ML BAG IVPB (12:51)
--- NOTE | 2021-05-03 15:25 | W.PM.HP.N ---
Date of service: 05/03/21 Time of Service: 15:25 Assessment and Plan Assessment and plan (1) SARS-CoV-2 positive: Start date: 05/03/21 Start time: 15:39 Status: Acute Assessment and plan: Positive COVID, likely a result of all of her sx. Migraine, n/v, given decadron, zofran, hydromorphone, valium, fioricet, toradol in the ED along with IV hydration Multiple antiemetic. Will admit to [facility] obs. Monitor. Give vitamin C, D and melatonin. Monitor oxygen level. (2) Intractable nausea and vomiting: Start date: 05/03/21 Start time: 15:50 Status: Acute Assessment and plan: as above (3) Migraine headache: Start date: 05/03/21 Start time: 15:50 Status: Chronic Assessment and plan: Treat with fioricet, hydromorphone. Qualifiers: Intractability: not intractable Migraine type: without aura Status migrainosus presence: without status migrainosus Qualified Code(s): G43.009 - Migraine without aura, not intractable, without status migrainosus (4) Hypothyroidism: Start date: 05/03/21 Start time: 15:50 Status: Chronic Assessment and plan: continue home medication Qualifiers: Hypothyroidism type: acquired Qualified Code(s): E03.9 - Hypothyroidism, unspecified (5) Asthma: Start date: 05/03/21 Start time: 15:51 Status: Chronic Assessment and plan: albuterol inhaler IS, acapella Qualifiers: Asthma complication type: with acute exacerbation Asthma persistence: unspecified Asthma severity: unspecified severity Qualified Code(s): J45.901 - Unspecified asthma with (acute) exacerbation (6) Factor V Leiden mutation: Start date: 05/03/21 Start time: 15:51 Status: Chronic Assessment and plan: Enoxaparin fully anticoagulated (7) Hypokalemia: Start date: 05/03/21 Start time: 15:54 Status: Acute Assessment and plan: 3.4 repleted and will monitor. (8) Hypomagnesemia: Start date: 05/03/21 Start time: 15:55 Status: Acute Assessment and plan: 1.6 repleted in ED and will monitor (9) UTI (urinary tract infection): Start date: 05/03/21 Start time: 15:55 Status: Acute Assessment and plan: Treated with fosfamyacin and difulcan as she easily gets yeast infections discussed with Dr. Conklin Qualifiers: Hematuria presence: without hematuria Urinary tract infection type: acute cystitis Qualified Code(s): N30.00 - Acute cystitis without hematuria History of Present Illness History of Present Illness Chief Complaint: COVID +, WILLETT, N/V Narrative: 41 y.o female presents to [facility] ED with vomiting and WILLETT. PMH includes GERD, migraines, hypothryoidism, asthma, depression, factor V leidien DVT, PE on chronic anticoagulation of Lovenox. She was found to be COVID positive. Labs in ED reveal potassium 3.4. and glucose of 138. Urine positive for nitrates. Mag is 1.6, repleted in the ED. She received, Valium, fioricet, hydromorphone, dexamethasone, toradol, zofran and IVF in the ED without any relief. She was asked to be admitted to hospitalist group for further management. She is being admitted to obs. Will treat n/v with multiple antiemtics. WILLETT with fioricet, hydromorphone. Give vitamin c, d, and melatonin for COVID. Treat UTI with fosfamycin dose and diflucan. IVF and monitor on telemetry. Review of Systems All systems reviewed & are unremarkable except as noted in HPI and below PFSH All Active Problems (Updated 05/03/21 @ 15:55 by Melissa Watson NP) Hypokalemia (Acute) UTI (urinary tract infection) (Acute) Hypomagnesemia (Acute) Intractable nausea and vomiting (Acute) SARS-CoV-2 positive (Acute) Intractable nausea and vomiting (Acute) Enterocolitis (Acute) Gastroesophagitis (Acute) Leukocytosis, unspecified (Acute) Intractable nausea and vomiting (Acute) Chronic anticoagulation (Chronic) On coumadin Cyclic vomiting syndrome (Acute) Migraine headache (Chronic) Hypothyroidism (Chronic) Panic disorder (Chronic 03/21/16) Chronic back pain greater than 3 months duration (Chronic 12/29/14) Asthma (Chronic 11/08/12) ADHD (attention deficit hyperactivity disorder), 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) B12 deficiency (Chronic) Factor V Leiden mutation (Chronic) Medical History (Updated 05/03/21 @ 15:55 by Melissa Watson NP) Acute deep vein thrombosis (DVT) of left lower extremity Acute renal insufficiency Candidiasis Cellulitis of left leg Chronic anticoagulation Cyst of fallopian tube Depression GERD (gastroesophageal reflux disease) Hematuria History of DVT (deep vein thrombosis) Iatrogenic pulmonary embolism and infarction Intractable vomiting with nausea Left buttock abscess Left lower quadrant pain (01/27/12) Nephrolithiasis Orbital cellulitis on left Other enthesopathies, not elsewhere classified (03/21/16) Neck Preseptal cellulitis of left eye Recurrent deep vein thrombosis (DVT) Right lower quadrant abdominal pain inflamed/ruptured fallopian tube on the right Thrombosis of arteries of lower extremity Vaginal candidiasis Surgical History Abdominal hysterectomy (~2009) 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) Arthroplasty of knee (~1999) left Bilateral salpingectomy with oophorectomy (~2008) Cervical Conization/LEEP LEEP 2003 CONE BX 2003 Cholecystectomy History of arthroscopy of knee S/P appendectomy (12/24/17) Dr Veliz - Car appy and lap excision of R fallopian tube remnant Status post cholecystectomy Status post LEEP (loop electrosurgical excision procedure) of cervix THUMB RECONSTRUCTION left; in childhood Social History Smoking/Tobacco Use Status: Never Smoking risk assessment performed?: Yes Alcohol Intake: current Alcohol Intake frequency: 0-2 drinks per day Drug use: Daily Substance use type: marijuana Current gender identity: female Do you feel safe at home: Yes Do you feel safe in your relationship?: Yes Additional Social history: Patient is and with one child. Meds Allergies and Home Medications Allergies Allergy/AdvReac Type Severity Reaction Status Date / Time aripiprazole [From Abilify] Allergy Severe Rash, hives Verified 05/03/21 08:42 doxycycline Allergy Severe Anaphylaxsi Verified 05/03/21 08:42 s levetiracetam [From Keppra] Allergy Severe RASH/HIVES Verified 05/03/21 08:42 sulfamethoxazole Allergy Severe Hives Verified 05/03/21 08:42 venom-honey bee Allergy Severe unknown Verified 05/03/21 08:42 Penicillins Allergy Intermediate Skin Rash Verified 05/03/21 08:42 chlorhexidine Allergy Unknown unknown Verified 05/03/21 08:42 Sulfa (Sulfonamide Allergy Verified 05/03/21 08:42 Antibiotics) mold AdvReac Severe Wheezing Verified 05/03/21 08:42 oxycodone [Oxycodone] AdvReac Severe vomits Verified 05/03/21 08:42 paroxetine AdvReac Severe Irritability Verified 05/03/21 08:42 and anger dicloxacillin [Dicloxacillin] AdvReac Mild Nausea Verified 05/03/21 08:42 gabapentin AdvReac Mild hives Verified 05/03/21 08:42 prednisone AdvReac Agitation Verified 05/03/21 08:42 trazodone AdvReac shortness Verified 05/03/21 08:42 of breath verapamil [Verapamil] AdvReac Worsening Verified 05/03/21 08:42 migraine nuts Allergy Severe Anaphylaxsi Uncoded 05/03/21 08:42 s Home Medications Medication Instructions Recorded Confirmed Type Citracal Plus Bone Density 1 ea PO BID tab-cap 11/09/12 05/03/21 History Space Chamber Plus #1 spacer 05/01/14 05/03/21 Rx cyproheptadine 4 mg PO HS #90 tab-cap 06/04/16 05/03/21 History naloxone [Narcan] 4 mg NS DAILY PRN PRN #2 spray 12/08/16 05/03/21 Rx triamcinolone acetonide 0.1 % 1 applic TOPICAL BID PRN #60 gm 09/05/19 05/03/21 Rx topical cream methylphenidate HCl 20 mg tablet 20 mg PO TID #84 tab-cap MDD 60 mg 10/20/19 05/03/21 Rx diphenhydramine HCl [Benadryl 100 mg PO HS 12/13/19 05/03/21 History Allergy] sucralfate 1 gram tablet 1 g PO AC & HS #120 tab 12/30/19 05/03/21 Rx clotrimazole-betamethasone 1 1 applic TOPICAL BID PRN #45 gm 02/22/20 05/03/21 Rx %-0.05 % topical cream epinephrine 0.3 mg/0.3 mL 0.3 mg IM ONCE #1 ea 02/22/20 05/03/21 Rx injection, auto-injector fluticasone propionate 220 2 inh INHALATION BID #3 inhaler 02/22/20 05/03/21 Rx mcg/actuation HFA aerosol inhaler levothyroxine 125 mcg tablet 125 mcg PO .AM #90 tab 02/22/20 05/03/21 Rx omeprazole 40 mg capsule,delayed 40 mg PO DAILY #90 cap 02/22/20 05/03/21 Rx release albuterol sulfate 90 mcg/actuation 2 puff INHALATION Q6H PRN #3 03/07/20 05/03/21 Rx aerosol inhaler inhaler MDD 6 puffs ondansetron HCl 8 mg tablet 8 mg PO BID PRN #20 tab 03/07/20 05/03/21 Rx sumatriptan succinate 6 mg/0.5 mL 6 mg SUBCUT ONCE PRN #90 syrg MDD 03/07/20 05/03/21 Rx subcutaneous pen injector 12mg clonazepam 1 mg tablet 1 mg PO TID PRN #90 tab 03/20/20 05/03/21 Rx Zyrtec 10 mg PO DAILY 08/16/20 05/03/21 History acidophilus-pectin, citrus 1 tab PO DAILY 08/16/20 05/03/21 History hydrocodone-acetaminophen 1 tab PO BID PRN 08/16/20 05/03/21 History ondansetron HCl [Zofran] 4 mg PO DAILY PRN 08/16/20 05/03/21 History polyethylene glycol 3350 [Miralax] 17 g PO DAILY PRN 08/16/20 05/03/21 History topiramate [Topamax] 200 mg PO BID 08/16/20 05/03/21 History albuterol sulfate 2.5 mg INHALATION TID 05/03/21 05/03/21 History warfarin 0 mg PO DAILY 05/03/21 05/03/21 History Exam Const General: cooperative, comfortable and no acute distress Nutritional Appearance: obese Orientation: alert, awake and oriented x3 HENMT Head: normal to inspection, atraumatic and other (headache) Eyes Eyelids: eyelids normal Pupils: PERRL EOM: EOM intact bilaterally Neck Neck: normal visual inspection and no JVD Lymphatic: no lymphadenopathy noted Resp Effort & Inspection: normal respiratory effort Auscultation: clear to auscultation bilaterally Cardio Jugular venous pressure: no JVD Rhythm: regular rhythm Heart Sounds: S1 normal GI Auscultation: normal bowel sounds General: No CVA tenderness and deferred Skin General skin exam: no rashes or lesions noted Neuro General: patient alert, patient awake and patient oriented x3 Cognition: normal cognition Speech: speech normal Gait: normal gait Extrem General: normal to inspection, full ROM and no clubbing, cyanosis or edema Results Labs Result diagrams: 05/03/21 09:08 05/03/21 09:08 Labs: Laboratory Results - last 24 hr 05/03/21 05/03/21 05/03/21 09:04 09:08 09:08 WBC 6.39 RBC 4.48 Hgb 12.9 Hct 38.3 MCV 85.5 MCH 28.8 MCHC 33.7 RDW 13.0 Plt Count 209 MPV 10.5 Immature Gran % 0.3 Neutrophils % 82.5 Lymphocytes % 4.7 Monocytes % 11.3 Eosinophils % 0.9 Basophils % 0.3 Nucleated RBC % 0 Absolute Neutrophils 5.27 Absolute Lymphocytes 0.30 L Absolute Monocytes 0.72 Absolute Eosinophils 0.06 Absolute Basophils 0.02 PT INR APTT Sodium 137 Potassium 3.4 L Chloride 102 Carbon Dioxide 25.3 Anion Gap 9.7 BUN 13 Creatinine 1.0 Estimated GFR/1.73 m2 >= 60.00 Glucose 138 H Calcium 8.3 L Magnesium Total Bilirubin 0.3 AST 23 ALT 27 Alkaline Phosphatase 51 Troponin I Total Protein 7.3 Albumin 4.2 Urine Color Urine Clarity Urine pH Ur Specific [place] Urine Protein Urine Ketones Urine Blood Urine Nitrite Urine Bilirubin Urine Urobilinogen Ur Leukocyte Esterase Urine RBC Urine WBC Ur Epithelial Cells Urine Crystals Urine Bacteria Urine Casts Urine Mucus Ur Culture Indicated? Urine Glucose COVID-19 Source Nasal/Nares SARS-CoV-2 (PCR) POSITIVE A* 05/03/21 05/03/21 05/03/21 09:08 10:05 12:05 WBC RBC Hgb Hct MCV MCH MCHC RDW Plt Count MPV Immature Gran % Neutrophils % Lymphocytes % Monocytes % Eosinophils % Basophils % Nucleated RBC % Absolute Neutrophils Absolute Lymphocytes Absolute Monocytes Absolute Eosinophils Absolute Basophils PT 11.0 INR 1.1 APTT 24.0 Sodium Potassium Chloride Carbon Dioxide Anion Gap BUN Creatinine Estimated GFR/1.73 m2 Glucose Calcium Magnesium 1.6 L Total Bilirubin AST ALT Alkaline Phosphatase Troponin I < 50 Total Protein Albumin Urine Color Yellow Urine Clarity Clear Urine pH 6.0 Ur Specific [place] >= 1.030 H Urine Protein Negative Urine Ketones Negative Urine Blood Small H Urine Nitrite Positive H Urine Bilirubin Negative Urine Urobilinogen 0.2 Ur Leukocyte Esterase Negative Urine RBC 3-5 H Urine WBC 0-2 Ur Epithelial Cells Rare Urine Crystals Negative Urine Bacteria Moderate Urine Casts Negative Urine Mucus Negative Ur Culture Indicated? Yes Urine Glucose Negative COVID-19 Source SARS-CoV-2 (PCR) Last Vital Signs Temp 36.5 C 05/03/21 12:20 Pulse 77 05/03/21 14:45 Resp 20 05/03/21 14:50 BP 97/50 L 05/03/21 14:45 Pulse Ox 95 05/03/21 14:50
[2021-05-03 15:51] LABS: Lab Add On Test DONE
[2021-05-03 16:06] LABS: C-Reactive Protein 0.24 mg/dL (0.0-0.3)
[2021-05-03 16:31] LABS: Ferritin 30 ng/mL (8-252)
[2021-05-03 17:05] LABS: Procalcitonin < 0.1 ng/mL
[2021-05-03] MEDS: Fluconazole 100 MG TAB 200 MG PO (17:07)
[2021-05-03] MEDS: Fosfomycin Tromethamine 3 GM PACKET PO (17:07)
[2021-05-03] MEDS: Sucralfate 1 GM TAB PO ×2 (17:08→20:44)
[2021-05-03] MEDS: Topiramate 50 MG TAB 200 MG PO (20:44)
[2021-05-03] MEDS: Ascorbic Acid 500 MG TAB PO (20:45)
[2021-05-03] MEDS: Melatonin 3 MG TAB 6 MG PO (21:42)
[2021-05-03] MEDS: Normal Saline Flush 10 ML SYR IVP (21:43)
[2021-05-03] MEDS: Mometasone 220 MCG 14 DOSE INHALER 2 PUFF IH (21:43)
[2021-05-03] MEDS: Prochlorperazine 10 MG/2 ML VIAL IM (21:43)
[2021-05-04] MEDS: diphenhydrAMINE 25 MG CAP 100 MG PO (00:43)
[2021-05-04] MEDS: Cyproheptadine 4 MG TAB PO (00:43)
[2021-05-04] MEDS: Levothyroxine 125 MCG TAB PO (05:40)
[2021-05-04 05:45] VITALS: BP 99/67; PULSE 60; RESP 18; TEMP 35.8; O2SAT 95
[2021-05-04] MEDS: Ketorolac 30 MG/ML VIAL IVP (05:47)
[2021-05-04 07:00] VITALS: PULSE 59
[2021-05-04 08:34] LABS: Abs Immature Grans 0.02 10^3/uL (0.0-0.06); Absolute Lymphocyte Count 0.68 10^3/uL (1.2-3.4); Absolute Monocyte Count 0.78 10^3/uL (0.1-0.8); Absolute Neutrophil Count 3.02 10^3/uL (1.2-6.7); HGB 11.7 g/dL (11.2-15.7); Immature Grans % 0.4; Lymphocytes % 15.1; MCHC 33.4 % (32.0-36.0); MCV 86.6 fL (80-95); MPV 11.2 fL (8.0-11.0); Monocytes % 17.3; Neutrophils % 67.2; Nucleated RBC 0 %; Platelet Count 207 10^3/uL (130-400); RBC 4.04 10^6/uL (3.93-5.22); RDW 13.3 % (11.7-14.6); RDW-SD 41.7 fL
[2021-05-04 08:44] LABS: ALT 23 U/L (14-59); AST 12 U/L (15-37); Albumin 3.6 g/dL (3.4-5.0); Alkaline Phosphatase 39 U/L (46-116); Anion Gap 11.1 mmol/L (3-11); BUN 15 mg/dL (7-18); Bilirubin, Direct 0.1 mg/dL (0.0-0.2); Bilirubin, Total 0.2 mg/dL (0.2-1.0); C-Reactive Protein 0.38 mg/dL (0.0-0.3); CO2 18.9 mmol/L (21.0-32.0); CREATININE 0.9 mg/dL (0.55-1.02); Chloride 107 mmol/L (98-107); Glucose 114 mg/dL (74-106); Magnesium 2.4 mg/dL (1.8-2.4); PHOSPHORUS 3.5 mg/dL (2.6-4.7); Potassium 3.9 mmol/L (3.5-5.1); Prothrombin Time 10.4 sec (9.3-11.0); Sodium 137 mmol/L (136-145)
[2021-05-04 08:54] LABS: Hemoglobin A1C 5.2 % (<5.7)
[2021-05-04 09:03] LABS: D-Dimer 703 ng/mlFEU (<500)
[2021-05-04 09:07] LABS: Calculated LDL 90 mg/dL (<100); Cholesterol 157 mg/dL (<200); Ferritin 56 ng/mL (8-252); HDL Cholesterol 48 mg/dL (40-60); Total Protein 6.5 g/dL (6.4-8.2); Triglyceride 99 mg/dL (<150)
[2021-05-04 09:13] LABS: *AMPHETAMINES SCREEN URINE Negative (Negative); *BARBITURATES SCREEN URINE Negative (Negative); *BENZODIAZEPINES SCREEN URINE Negative (Negative); Cannabinoids THC Positive (Negative); Cocaine Screen,Urine Negative (Negative); METHADONE URINE SCREEN Negative (Negative); OPIATES URINE SCREEN Positive (Negative)
[2021-05-04 09:14] LABS: Tricyclic Antidepressants Negative (Negative)
[2021-05-04] MEDS: Pantoprazole 40 MG VIAL IVP (09:24)
[2021-05-04] MEDS: Cholecalciferol (Vitamin D3) 1,000 UNIT TAB 1000 UNITS PO (09:25)
[2021-05-04] MEDS: Normal Saline Flush 10 ML SYR IVP (09:25)
[2021-05-04] MEDS: Methylphenidate 10 MG TAB 20 MG PO (09:25)
[2021-05-04] MEDS: Ascorbic Acid 500 MG TAB PO (09:25)
[2021-05-04] MEDS: Sucralfate 1 GM TAB PO ×2 (09:25→11:55)
[2021-05-04] MEDS: Mometasone 220 MCG 14 DOSE INHALER 2 PUFF IH (09:27)
[2021-05-04 09:36] VITALS: BP 117/82; PULSE 71; RESP 14; TEMP 36; O2SAT 97
[2021-05-04] MEDS: Enoxaparin 40 MG/0.4 ML SYR SC (09:40)
[2021-05-04 10:31] VITALS: PULSE 88
--- NOTE | 2021-05-04 10:46 | DSE_ITS ---
Date of service: 05/04/21 Time of Service: 10:52 DS: Diagnosis Discharge Diagnosis (1) SARS-CoV-2 positive: Start date: 05/04/21 Start time: 10:52 Status: Acute Asessment and Plan: Found to positive with COVID yesterday. She presented with migraine and vomiting and was found to be positive COVID. given decadron, zofran, hydromorphone, valium, fioricet, toradol in the ED along with IV hydration She is not requiring any oxygen. He saturation is above 95% IS given, she continued to lay on her side and ambulate her biggest issue was migraine. No vomiting since admission, loss of sense of taste and smell. She feels ready for discharge. Will discharge home with 10 hydromorphone tabs for migraine. Fioriocet. Vitamin C, D and melatonin. Phenergan and compazine for nausea. Given IM phenergan and toradol for mirgaraine as well Encourage hydration, quarentine for 7 days or longer if sx persist. Or if 2 negative COVID tests. (2) Intractable nausea and vomiting: Start date: 05/04/21 Start time: 11:20 Status: Resolved Asessment and Plan: as above (3) Migraine headache: Start date: 05/04/21 Start time: 11:20 Status: Chronic Asessment and Plan: as above (4) Hypothyroidism: Start date: 05/04/21 Start time: 11:20 Status: Chronic Asessment and Plan: continue home medication (5) Asthma: Start date: 05/04/21 Start time: 11:21 Status: Chronic Asessment and Plan: continue home medication (6) Factor V Leiden mutation: Start date: 05/04/21 Start time: 11:24 Status: Chronic Asessment and Plan: On enoxaparin daily subcu (7) Hypokalemia: Start date: 05/04/21 Start time: 11:24 Status: Resolved Asessment and Plan: Resolved with supplementation (8) Hypomagnesemia: Start date: 05/04/21 Start time: 11:25 Status: Resolved Asessment and Plan: Resolved with supplementation (9) UTI (urinary tract infection): Start date: 05/04/21 Start time: 11:27 Status: Acute Asessment and Plan: Patient with nitrates in urine, given dose of fosfamycin and diflucan d/t easily gets yeast infections. Discussed with Dr. Murillo Discharge Plan Disposition Patient Disposition: HOME Condition: Stable Discharge Details Reason For Visit: Intractable migraine, n/v; COVID-19 Admit Date/Time: 05/03/21 14:08 Admit Provider: Loli Conklin Attending Provider: Loli Conklin Primary Care Provider: Patrica Lopez Hospital Course Hospital Course: 41 y.o female presents to [facility] ED with vomiting and WILLETT. PMH includes GERD, migraines, hypothryoidism, asthma, depression, factor V leidien DVT, PE on chronic anticoagulation of Lovenox. She was found to be COVID positive. Labs in ED reveal potassium 3.4. and glucose of 138. Urine positive for nitrates. Mag is 1.6, repleted in the ED. She received, Valium, fioricet, hydromorphone, dexamethasone, toradol, zofran and IVF in the ED without any relief. She was asked to be admitted to hospitalist group for further management. She was admitted to obs. Today she feels ready for discharge. See dx for treatment plan. F/u with PCP as needed. Home Meds and New Rx's Prescriptions: New ascorbic acid (vitamin C) [Vitamin C] 500 mg Tablet 500 mg PO BID Qty: 60 RF: 0 [id number] [Fioricet] 50-300-40 mg capsule 1 cap PO Q4H PRNQty: 60 RF: 0 hydromorphone 4 mg tablet 4 mg PO Q6H PRNQty: 10 RF: 0 cholecalciferol (vitamin D3) [Vitamin D3] 50 mcg (2,000 unit) capsule 50 mcg PO DAILY Qty: 30 RF: 0 melatonin 3 mg Tablet 6 mg PO HS Qty: 30 RF: 0 prochlorperazine maleate [Compazine] 10 mg tablet 10 mg PO TID PRNQty: 60 RF: 0 promethazine 25 mg tablet 25 mg PO TID PRNQty: 60 RF: 0 Continued sucralfate 1 gram tablet 1 g PO AC & HS Qty: 120 RF: 2 Citracal Plus Bone Density 1 EACH tablet 1 ea PO BID RF: 0 cyproheptadine 4 MG tablet 4 mg PO HS Qty: 90 RF: 3 triamcinolone acetonide 0.1 % cream 1 applic Topical BID PRN (Reason: eczema) Qty: 60 RF: 1 methylphenidate HCl 20 mg tablet 20 mg PO TID MDD 60 mg Qty: 84 RF: 0 epinephrine [EpiPen 2-Nino] 0.3 mg/0.3 mL auto-injector 0.3 mg IM ONCE Qty: 1 RF: 1 Flovent HFA 220 mcg/actuation HFA aerosol inhaler 2 inh Inhalation BID Qty: 3 RF: 4 levothyroxine 125 mcg tablet 125 mcg PO .AM Qty: 90 RF: 0 omeprazole 40 mg capsule,delayed release(DR/EC) 40 mg PO DAILY Qty: 90 RF: 4 clotrimazole-betamethasone 1-0.05 % cream 1 applic Topical BID PRN (Reason: rash) Qty: 45 RF: 1 albuterol sulfate [ProAir HFA] 90 mcg/actuation HFA aerosol inhaler 2 puff Inhalation Q6H PRN MDD 6 puffs Qty: 3 RF: 4 ondansetron HCl 8 mg tablet 8 mg PO BID PRN (Reason: nausea and vomiting) Qty: 20 RF: 0 sumatriptan succinate 6 mg/0.5 mL pen injector 6 mg subcut ONCE MDD 12mg PRN (Reason: migraine headache) Qty: 90 RF: 1 clonazepam 1 mg tablet 1 mg PO TID PRN (Reason: anxiety) Qty: 90 RF: 0 naloxone [Narcan] 4 MG spray,non-aerosol 4 mg NS DAILY PRN PRNQty: 2 RF: 0 polyethylene glycol 3350 [Miralax] 17 gram Powder In Packet 17 g PO DAILY PRNRF: 0 ondansetron HCl [Zofran] 4 mg Tablet 4 mg PO DAILY PRNRF: 0 hydrocodone-acetaminophen 7.5-325 mg tablet 1 tab PO BID PRNRF: 0 Zyrtec 10 mg Capsule 10 mg PO DAILY RF: 0 topiramate [Topamax] 200 mg tablet 200 mg PO BID RF: 0 acidophilus-pectin, citrus 25 million cell -100 mg tablet 1 tab PO DAILY RF: 0 albuterol sulfate 2.5 mg /3 mL (0.083 %) Solution For Nebulization 2.5 mg INHALATION TID RF: 0 diphenhydramine HCl [Benadryl Allergy] 25 mg tablet 100 mg PO HS RF: 0 Discontinued warfarin 5 mg tablet 0 mg PO DAILY RF: 0 No Action (DME) Space Chamber Plus 1 EACH spacer 1 ea Miscellaneous Q4H PRN Qty: 1 RF: 0 Discharge Instructions Instructions: Migraine Headache (GEN), COVID-19 (Coronavirus Disease 2019) (DC) Additional Instructions: Continue to lay on side and prone as much as possible. Stay in quarantine for at least 7 days or until 2 negative tests. Take vitamin c, d, melatonin. Take meds as prescribed for migraine. Drink plenty of fluids. Get plenty of rest. Stand Alone Forms: Nursing Discharge Form Activity:: Activity as Tolerated Equipment/Supplies:: No Equipment Needed Diet:: Other Discharge Orders Discharge Orders: Discharge Order (Routine); Ordered 05/04/21 Ordered By: Melissa Watson DS: Summary Time Spent with Patient providing and/or coordinating discharge services: Greater than 30 minutes Status at Discharge Functional status at discharge: independent ambulation Overall status at discharge: patient is progressing back to baseline Mental Status: mental status grossly normal Speech and Movement: speech and movement normal Mood: congruent mood Affect: normal affect Exam Const General: cooperative, comfortable and no acute distress Nutritional Appearance: obese Orientation: alert, awake and oriented x3 HENMT Head: normal to inspection, atraumatic and other (headache) Eyes Eyelids: eyelids normal Pupils: PERRL EOM: EOM intact bilaterally Neck Neck: normal visual inspection and no JVD Lymphatic: no lymphadenopathy noted Resp Effort & Inspection: normal respiratory effort Auscultation: clear to auscultation bilaterally Cardio Jugular venous pressure: no JVD Rhythm: regular rhythm Heart Sounds: S1 normal GI Auscultation: normal bowel sounds General: No CVA tenderness and deferred Skin General skin exam: no rashes or lesions noted Neuro General: patient alert, patient awake and patient oriented x3 Cognition: normal cognition Speech: speech normal Gait: normal gait Extrem General: normal to inspection, full ROM and no clubbing, cyanosis or edema Psych Mental Status: mental status grossly normal Speech and Movement: speech and movement normal Mood: congruent mood Affect: normal affect DS: Data Vitals/I&O Vitals and I&O: Vital Signs Temperature 36.0 C L 01/15/22 09:36 Temperature Source Tympanic 05/04/21 09:36 Pulse 71 05/04/21 09:36 Pulse Rhythm Regular 05/04/21 09:52 Pulse 87 05/03/21 14:50 Respiratory Rate 14 05/04/21 09:36 Respiratory Effort 05/04/21 09:52 Respiratory Depth Normal 05/04/21 09:52 Respiratory Pattern Normal 05/04/21 09:52 Blood Pressure 117/82 05/04/21 09:36 Blood Pressure Mean 61 05/03/21 14:45 Blood Pressure Position Sitting 05/03/21 08:39 Pulse Oximetry 97 05/04/21 09:36 Oxygen Delivery Method Room Air 05/04/21 09:36 Oxygen Flow Rate 0 05/04/21 09:36 Pain Level 8 05/04/21 09:36 Intake & Output 05/03/21 05/03/21 05/04/21 11:59 23:59 11:59 Intake Total 1151 / 2201 1050 / 2201 Output Total 450 / 450 Balance 1151 / 1751 600 / 1751 Weight 74.843 kg 75 kg Intake: IV 1151 / 2201 1050 / 2201 Output: Urine 450 / 450 Data Completed and Pending Completed studies during hospitalization [Text1]: Exam(s) XR CHEST 2V PA LATERAL EXAM: XR CHEST 2V PA LATERAL CLINICAL HISTORY: diffculty breathing, r/o acute disease. TECHNIQUE: 2D digital imaging was performed. COMPARISON: CR,XR XR CHEST 2V PA LATERAL from 07/13/2020 FINDINGS: Heart size is normal. The mediastinum is not widened. Lungs are clear. No infiltrates nor pleural effusions. IMPRESSION: No acute pulmonary findings. Exam(s) a CT:CT head wo Exam(s) CT HEAD WO EXAM: CT HEAD WO CLINICAL HISTORY: headache, vomiting, r/o acute bleed. TECHNIQUE: Imaging Protocol: Axial computed tomography images with coronal and sagittal reformatted images were created and reviewed COMPARISON: CT CT HEAD WO from 09/16/2019 FINDINGS: There are no skull fractures. However, on the present study there is mucosal thickening noted in the floor both maxillary sinuses, not associated with fluid leve on the right side but with tiny fluid level on the left side. The oil air cells exhibit mild mucosal thickening bilateral. The sphenoid sinuses are clear. Mild mucosal thickening noted at the frontoethmoidal recesses bilaterally. No fluid levels within the actual frontal sinuses. There is no evidence of intracranial hemorrhage, mass effect, or shift of midline structures. There are no extra-axial fluid collections. The ventricles are not enlarged or shifted and there is no blood within the ventricular system nor within the basal cisterns. IMPRESSION: No acute intracranial findings on this noninfused CT scan of the brain. Mild sinus disease as described above Labs on day of discharge: Labs from last 24 hours 05/04/21 05/04/21 05/04/21 07:50 07:50 07:50 WBC 4.50 RBC 4.04 Hgb 11.7 Hct 35.0 L MCV 86.6 MCH 29.0 MCHC 33.4 RDW 13.3 Plt Count 207 MPV 11.2 H Immature Gran % 0.4 Neutrophils % 67.2 Lymphocytes % 15.1 Monocytes % 17.3 Eosinophils % 0.0 Basophils % 0.0 Nucleated RBC % 0 Absolute Neutrophils 3.02 Absolute Lymphocytes 0.68 L Absolute Monocytes 0.78 Absolute Eosinophils 0.00 Absolute Basophils 0.00 PT 10.4 INR 1.0 APTT D-Dimer 703 H Sodium Potassium Chloride Carbon Dioxide Anion Gap BUN Creatinine Estimated GFR/1.73 m2 Glucose Hemoglobin A1c Calcium Phosphorus Magnesium Ferritin Total Bilirubin Conjugated Bilirubin AST ALT Alkaline Phosphatase Troponin I C-Reactive Protein Total Protein Albumin Triglycerides Total Cholesterol LDL Cholesterol, Calc HDL Cholesterol 25-OH Vitamin D Total Pending Procalcitonin Urine Color Urine Clarity Urine pH Ur Specific [place] Urine Protein Urine Ketones Urine Blood Urine Nitrite Urine Bilirubin Urine Urobilinogen Ur Leukocyte Esterase Urine RBC Urine WBC Ur Epithelial Cells Urine Crystals Urine Bacteria Urine Casts Urine Mucus Ur Culture Indicated? Urine Glucose Urine Opiates Screen Urine Methadone Screen Ur Barbiturates Screen Ur Tricyclics Screen Ur Amphetamines Screen U Benzodiazepines Scrn Urine Cocaine Screen Ur THC Screen Add-On Test Request 05/04/21 05/04/21 05/03/21 07:50 07:50 12:05 WBC RBC Hgb Hct MCV MCH MCHC RDW Plt Count MPV Immature Gran % Neutrophils % Lymphocytes % Monocytes % Eosinophils % Basophils % Nucleated RBC % Absolute Neutrophils Absolute Lymphocytes Absolute Monocytes Absolute Eosinophils Absolute Basophils PT INR APTT D-Dimer Sodium 137 Potassium 3.9 Chloride 107 Carbon Dioxide 18.9 L Anion Gap 11.1 H BUN 15 Creatinine 0.9 Estimated GFR/1.73 m2 >= 60.00 Glucose 114 H Hemoglobin A1c 5.2 Calcium 8.0 L Phosphorus 3.5 Magnesium 2.4 Ferritin 56 Total Bilirubin 0.2 Conjugated Bilirubin 0.1 AST 12 L ALT 23 Alkaline Phosphatase 39 L Troponin I C-Reactive Protein 0.38 H Total Protein 6.5 Albumin 3.6 Triglycerides 99 Total Cholesterol 157 LDL Cholesterol, Calc 90 HDL Cholesterol 48 25-OH Vitamin D Total Procalcitonin Urine Color Urine Clarity Urine pH Ur Specific [place] Urine Protein Urine Ketones Urine Blood Urine Nitrite Urine Bilirubin Urine Urobilinogen Ur Leukocyte Esterase Urine RBC Urine WBC Ur Epithelial Cells Urine Crystals Urine Bacteria Urine Casts Urine Mucus Ur Culture Indicated? Urine Glucose Urine Opiates Screen Positive A Urine Methadone Screen Negative Ur Barbiturates Screen Negative Ur Tricyclics Screen Negative Ur Amphetamines Screen Negative U Benzodiazepines Scrn Negative Urine Cocaine Screen Negative Ur THC Screen Positive A Add-On Test Request 05/03/21 05/03/21 05/03/21 12:05 10:05 09:08 WBC RBC Hgb Hct MCV MCH MCHC RDW Plt Count MPV Immature Gran % Neutrophils % Lymphocytes % Monocytes % Eosinophils % Basophils % Nucleated RBC % Absolute Neutrophils Absolute Lymphocytes Absolute Monocytes Absolute Eosinophils Absolute Basophils PT 11.0 INR 1.1 APTT 24.0 D-Dimer Sodium Potassium Chloride Carbon Dioxide Anion Gap BUN Creatinine Estimated GFR/1.73 m2 Glucose Hemoglobin A1c Calcium Phosphorus Magnesium Ferritin Total Bilirubin Conjugated Bilirubin AST ALT Alkaline Phosphatase Troponin I C-Reactive Protein Total Protein Albumin Triglycerides Total Cholesterol LDL Cholesterol, Calc HDL Cholesterol 25-OH Vitamin D Total Procalcitonin < 0.1 Urine Color Yellow Urine Clarity Clear Urine pH 6.0 Ur Specific [place] >= 1.030 H Urine Protein Negative Urine Ketones Negative Urine Blood Small H Urine Nitrite Positive H Urine Bilirubin Negative Urine Urobilinogen 0.2 Ur Leukocyte Esterase Negative Urine RBC 3-5 H Urine WBC 0-2 Ur Epithelial Cells Rare Urine Crystals Negative Urine Bacteria Moderate Urine Casts Negative Urine Mucus Negative Ur Culture Indicated? Yes Urine Glucose Negative Urine Opiates Screen Urine Methadone Screen Ur Barbiturates Screen Ur Tricyclics Screen Ur Amphetamines Screen U Benzodiazepines Scrn Urine Cocaine Screen Ur THC Screen Add-On Test Request 05/03/21 05/03/21 05/03/21 09:08 09:08 09:08 WBC RBC Hgb Hct MCV MCH MCHC RDW Plt Count MPV Immature Gran % Neutrophils % Lymphocytes % Monocytes % Eosinophils % Basophils % Nucleated RBC % Absolute Neutrophils Absolute Lymphocytes Absolute Monocytes Absolute Eosinophils Absolute Basophils PT INR APTT D-Dimer Sodium Potassium Chloride Carbon Dioxide Anion Gap BUN Creatinine Estimated GFR/1.73 m2 Glucose Hemoglobin A1c Calcium Phosphorus Magnesium 1.6 L Ferritin 30 Total Bilirubin Conjugated Bilirubin AST ALT Alkaline Phosphatase Troponin I < 50 C-Reactive Protein 0.24 Total Protein Albumin Triglycerides Total Cholesterol LDL Cholesterol, Calc HDL Cholesterol 25-OH Vitamin D Total Procalcitonin Urine Color Urine Clarity Urine pH Ur Specific [place] Urine Protein Urine Ketones Urine Blood Urine Nitrite Urine Bilirubin Urine Urobilinogen Ur Leukocyte Esterase Urine RBC Urine WBC Ur Epithelial Cells Urine Crystals Urine Bacteria Urine Casts Urine Mucus Ur Culture Indicated? Urine Glucose Urine Opiates Screen Urine Methadone Screen Ur Barbiturates Screen Ur Tricyclics Screen Ur Amphetamines Screen U Benzodiazepines Scrn Urine Cocaine Screen Ur THC Screen Add-On Test Request DONE Preliminary micro results at discharge 05/03/21 12:05 Urine Culture - Preliminary Urine - Reflex from Ua Escherichia coli PFS All Active Problems (Updated 05/04/21 @ 11:25 by Melissa Watson NP) COVID-19 (Acute) UTI (urinary tract infection) (Acute) Intractable nausea and vomiting (Acute) SARS-CoV-2 positive (Acute) Enterocolitis (Acute) Gastroesophagitis (Acute) Leukocytosis, unspecified (Acute) Intractable nausea and vomiting (Acute) Chronic anticoagulation (Chronic) On coumadin Cyclic vomiting syndrome (Acute) Migraine headache (Chronic) Hypothyroidism (Chronic) Panic disorder (Chronic 03/21/16) Chronic back pain greater than 3 months duration (Chronic 12/29/14) Asthma (Chronic 11/08/12) ADHD (attention deficit hyperactivity disorder), 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) B12 deficiency (Chronic) Factor V Leiden mutation (Chronic) Medical History (Updated 05/04/21 @ 11:25 by Melissa Watson NP) Acute deep vein thrombosis (DVT) of left lower extremity Acute renal insufficiency Candidiasis Cellulitis of left leg Chronic anticoagulation Cyst of fallopian tube Depression GERD (gastroesophageal reflux disease) Hematuria History of DVT (deep vein thrombosis) Iatrogenic pulmonary embolism and infarction Intractable vomiting with nausea Left buttock abscess Left lower quadrant pain (01/27/12) Nephrolithiasis Orbital cellulitis on left Other enthesopathies, not elsewhere classified (03/21/16) Neck Preseptal cellulitis of left eye Recurrent deep vein thrombosis (DVT) Right lower quadrant abdominal pain inflamed/ruptured fallopian tube on the right Thrombosis of arteries of lower extremity Vaginal candidiasis Surgical History Abdominal hysterectomy (~2009) 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) Arthroplasty of knee (~1999) left Bilateral salpingectomy with oophorectomy (~2008) Cervical Conization/LEEP LEEP 2003 [facility] BX 2003 Cholecystectomy History of arthroscopy of knee S/P appendectomy (12/24/17) Dr Veliz - Lap appy and lap excision of R fallopian tube remnant Status post cholecystectomy Status post LEEP (loop electrosurgical excision procedure) of cervix THUMB RECONSTRUCTION left; in childhood Social History Smoking/Tobacco Use Status: Never Smoking risk assessment performed?: Yes Alcohol Intake: current Alcohol Intake frequency: 0-2 drinks per day Drug use: Daily Substance use type: marijuana Current gender identity: female Do you feel safe at home: Yes Do you feel safe in your relationship?: Yes Additional Social history: Patient is and with one child.
[2021-05-04] MEDS: Ketorolac 30 MG/ML VIAL 60 MG IM (10:58)
[2021-05-04] MEDS: Butalbital/Acetaminophen/Caffeine 50/325/40 TAB PO (11:55)
[2021-05-06 01:15] LABS: Vitamin D 25 Total 9.7 ng/mL (30-100)
== END 2021-05-04 12:37 | disposition home or self-care (01) ==
LOC: ER 13:19 → MS 15:30
PROVIDERS: Admitting Provider Internal Medicine; Emergency Provider Physician Assistant; PCP Family Medicine; Visit Provider Internal Medicine
DX: G43.009 Migraine without aura, not intractable, without status migrainosus (principal); R11.2 Nausea with vomiting, unspecified; J45.901 Unspecified asthma with (acute) exacerbation; E03.9 Hypothyroidism, unspecified; N30.00 Acute cystitis without hematuria; D68.51 Activated protein C resistance; E83.42 Hypomagnesemia; U07.1 COVID-19; E87.6 Hypokalemia; K21.9 Gastro-esophageal reflux disease without esophagitis; F32.A Depression, unspecified; Z86.711 Personal history of pulmonary embolism; Z86.718 Personal history of other venous thrombosis and embolism; F41.0 Panic disorder [episodic paroxysmal anxiety]; F12.10 Cannabis abuse, uncomplicated; E53.8 Deficiency of other specified B group vitamins; G89.29 Other chronic pain; M54.9 Dorsalgia, unspecified; Z79.01 Long term (current) use of anticoagulants; Z79.899 Other long term (current) drug therapy
CPT/HCPCS: 36415; 80048; 80053; 80061; 80076; 80307; 82306; 84145; 87077; 87635; 93005; 96361; 96365; 96366; 96367; 96375; 99285; J1650; 70450; 71046; 81003; 81015; 82728; 83036; 83735; 84100; 84484; 85025; 85379; 85610; 85730; 86140; 87086; 87186; 93010; 99217; 99219; G0378; J0131; J0780; J1100; J1200; J1885; J3360; J3490

== ENCOUNTER 2021-05-14 15:11 | Outpatient (REF) | payer MEDICARE, MEDICAID, SELFPAY ==
[2021-05-17 11:42] LABS: Amphetamine Negative ng/mL (Cutoff: 25); Amphetamines Interpretation Negative.; MDA (Ecstasy Metabolite) Negative ng/mL (Cutoff: 25); MDMA (Ecstasy) Negative ng/mL (Cutoff: 25); Methamphetamine Negative ng/mL (Cutoff: 25); Phentermine Negative ng/mL (Cutoff: 25); Pseudoephedrine/Ephedrine Negative ng/mL (Cutoff: 25)
[2021-05-17 15:36] LABS: Codeine Negative ng/mL (Cutoff: 25); Dihydrocodeine 1644 ng/mL (Cutoff: 25); Hydrocodone 4883 ng/mL (Cutoff: 25); Hydromorphone 422 ng/mL (Cutoff: 25); Morphine Negative ng/mL (Cutoff: 25); Naloxone Negative ng/mL (Cutoff: 25); Norhydrocodone 5224 ng/mL (Cutoff: 25); Noroxycodone Negative ng/mL (Cutoff: 25); Noroxymorphone Negative ng/mL (Cutoff: 25); Opiates Interpretation Positive.
[2021-05-18 06:05] LABS: 2-OH-Ethyl-Flurazepam Negative ng/mL (Cutoff: 10); 7-NH-Clonazepam 1781 ng/mL (Cutoff: 10); 7-NH-Flunitrazepam Negative ng/mL (Cutoff: 10); Alpha OH-Alprazolam Negative ng/mL (Cutoff: 10); Alpha-OH Midazolam Negative ng/mL (Cutoff: 10); Alpha-OH-Triazolam Negative ng/mL (Cutoff: 10); Alprazolam Negative ng/mL (Cutoff: 10); Benzodiazepines Interpretation Positive.; Chlordiazepoxide Negative ng/mL (Cutoff: 10); Clobazam Negative ng/mL (Cutoff: 10); Clonazepam 31 ng/mL (Cutoff: 10); Diazepam Negative ng/mL (Cutoff: 10); Flurazepam Negative ng/mL (Cutoff: 10); Lorazepam Negative ng/mL (Cutoff: 10); Midazolam Negative ng/mL (Cutoff: 10); N-Desmethylclobazam Negative ng/mL (Cutoff: 10); Prazepam Negative ng/mL (Cutoff: 10); Temazepam 28 ng/mL (Cutoff: 10); Triazolam Negative ng/mL (Cutoff: 10); Zolpidem Carboxylic acid Negative ng/mL (Cutoff: 10)
[2021-05-21 11:44] LABS: Methylphenidate Negative ng/mL (Cutoff: 10)
== END 2021-05-14 15:12 | disposition home or self-care (01) ==
LOC: NCHCN 15:11
PROVIDERS: PCP Family Medicine; Visit Provider Nurse Practitioner Psychiatric/Mental Health
DX: F90.0 Attention-deficit hyperactivity disorder, predominantly inattentive type (principal)
CPT/HCPCS: 80324; 80360; 80361; 80362; 80365; 80346

== ENCOUNTER 2021-07-03 20:17 | Outpatient (REF) | payer MEDICARE, MEDICAID, SELFPAY ==
[2021-07-10 12:57] LABS: Codeine Negative ng/mL (Cutoff: 25); Dihydrocodeine 1820 ng/mL (Cutoff: 25); Hydrocodone 7870 ng/mL (Cutoff: 25); Hydromorphone 387 ng/mL (Cutoff: 25); Morphine Negative ng/mL (Cutoff: 25); Naloxone Negative ng/mL (Cutoff: 25); Norhydrocodone 5022 ng/mL (Cutoff: 25); Noroxycodone Negative ng/mL (Cutoff: 25); Noroxymorphone Negative ng/mL (Cutoff: 25); Opiates Interpretation Positive.
== END 2021-07-03 20:18 | disposition home or self-care (01) ==
LOC: NCHCN 20:17
PROVIDERS: PCP Family Medicine; Visit Provider Family Medicine
DX: G89.29 Other chronic pain (principal)
CPT/HCPCS: 80361; 80362; 80365

== ENCOUNTER 2021-07-18 17:54 | Outpatient (REF) | payer MEDICARE, MEDICAID, SELFPAY ==
[2021-07-19 15:09] LABS: Chlamydia Result Negative (Negative); GC Result Negative (Negative)
== END 2021-07-18 17:55 | disposition home or self-care (01) ==
LOC: LBN 17:54
PROVIDERS: PCP Family Medicine; Visit Provider Nurse Practitioner Family
DX: Z11.3 Encounter for screening for infections with a predominantly sexual mode of transmission (principal); Z72.51 High risk heterosexual behavior
CPT/HCPCS: 87491; 87591

== ENCOUNTER 2021-07-30 03:20 | Outpatient (CLI) | payer MEDICARE, MEDICAID, SELFPAY | END 2021-07-30 03:21 | disposition home or self-care (01) | LOC: LBO 03:20 | PROVIDERS: PCP Family Medicine; Visit Provider Nurse Practitioner Family ==

== ENCOUNTER 2021-09-19 03:09 | Outpatient (CLI) | payer MEDICARE, MEDICAID, SELFPAY ==
[2021-09-19 12:05] LABS: Abs Immature Grans 0.01 10^3/uL (0.0-0.06); Absolute Basophil Count 0.05 10^3/uL (0.0-0.2); Absolute Eosinophil Count 0.78 10^3/uL (0.0-0.7); Absolute Lymphocyte Count 1.73 10^3/uL (1.2-3.4); Absolute Monocyte Count 0.49 10^3/uL (0.1-0.8); Absolute Neutrophil Count 3.64 10^3/uL (1.2-6.7); Basophils % 0.7; Eosinophils % 11.6; HCT 38.8 % (36.0-46.0); HGB 12.8 g/dL (11.2-15.7); Immature Grans % 0.1; Lymphocytes % 25.8; MCH 28.3 pg (27.0-33.0); MCV 86 fL (80-95); MPV 11.2 fL (8.0-11.0); Monocytes % 7.3; Neutrophils % 54.5; Platelet Count 221 10^3/uL (130-400); RBC 4.53 10^6/uL (3.93-5.22); RDW 13.5 % (11.7-14.6); RDW-SD 42.4 fL
[2021-09-19 12:20] LABS: Prothrombin Time 9.6 sec (9.3-11.0)
[2021-09-20 09:02] LABS: Hepatitis B Surface Ag Negative (Negative)
[2021-09-20 09:35] LABS: Hepatitis C Ab w Rflx HCV PCR Negative (Negative)
[2021-09-20 09:56] LABS: HIV-1/2 Ag & Ab Screen Negative (Negative)
[2021-09-20 10:37] LABS: Homocysteine 17.1 umol/L (5.0-13.9)
[2021-09-21 10:59] LABS: Factor X Chromogenic Activity 75 % (60 - 140)
[2021-09-21 14:29] LABS: Syphilis IgG w/Reflex Nonreactive (Nonreactive)
[2021-09-24 12:05] LABS: Methylmalonic Acid 0.29 nmol/mL (<=0.40)
== END 2021-09-19 03:10 | disposition home or self-care (01) ==
PROVIDERS: Internal Medicine; PCP Family Medicine; Visit Provider Nurse Practitioner Family
DX: Z11.3 Encounter for screening for infections with a predominantly sexual mode of transmission (principal); D68.59 Other primary thrombophilia; Z91.89 Other specified personal risk factors, not elsewhere classified
CPT/HCPCS: 36415; 80186; 83090; 86803; 87340; 87389; 85025; 85260; 85610; 86780

== ENCOUNTER 2021-11-14 21:50 | Inpatient (IN) | payer MEDICARE, MEDICAID, SELFPAY ==
[2021-11-14] VITALS (22 sets, daily range): BP systolic 126–167; BP diastolic 78–110; PULSE 51–74; RESP 6–19; TEMP 36.7; O2SAT 97–100
--- NOTE | 2021-11-14 21:30 | RT.EKG_ITS ---
APPROVED REPORT Exam: Resting ECG Reason for Exam: overdose Patient Location: E HR:73 bpm ECG Measurements Heart Rate 73 AXIS VT 178 P 62 QRSd 81 QRS -16 QT 424 T 47 QTc 468 Conclusion Sinus rhythm...normal P axis, V-rate 60- 99 Low voltage, extremity leads...all extremity leads <0.5mV
--- NOTE | 2021-11-14 21:55 | ED.GENADUL_ITS ---
Discharge Plan Disposition Patient Disposition: [facility] INPATIENT Condition: Stable Discharge Details Clinical Impression: Intentional overdose Primary Care Provider: Patrica Lopez ED Provider: Lester Gorman Morganza Meds and New Rx's Prescriptions: No Action sucralfate 1 gram tablet 1 g PO AC & HS Qty: 120 2RF warfarin 10 mg tablet 15 mg PO DAILY enoxaparin [Lovenox] 80 mg/0.8 mL syringe 80 mg subcut BID Citracal Plus Bone Density 1 EACH tablet 1 ea PO BID cyproheptadine 4 MG tablet 4 mg PO HS Qty: 90 triamcinolone acetonide 0.1 % cream 1 applic Topical BID PRN (Reason: eczema) Qty: 60 1RF Rx Instructions: Apply to eczema methylphenidate HCl 20 mg tablet 20 mg PO TID MDD 60 mg Qty: 84 0RF epinephrine [EpiPen 2-Nino] 0.3 mg/0.3 mL auto-injector 0.3 mg IM ONCE Qty: 1 1RF fluticasone propionate [Flovent HFA] 220 mcg/actuation HFA aerosol inhaler 2 inh Inhalation BID Qty: 3 4RF levothyroxine 125 mcg tablet 125 mcg PO .AM Qty: 90 0RF omeprazole 40 mg capsule,delayed release(DR/EC) 40 mg PO DAILY Qty: 90 4RF clotrimazole-betamethasone 1-0.05 % cream 1 applic Topical BID PRN (Reason: rash) Qty: 45 1RF Rx Instructions: Apply to skin folds albuterol sulfate [ProAir HFA] 90 mcg/actuation HFA aerosol inhaler 2 puff Inhalation Q6H PRN MDD 6 puffs Qty: 3 4RF ondansetron HCl 8 mg tablet 8 mg PO BID PRN (Reason: nausea and vomiting) Qty: 20 0RF sumatriptan succinate 6 mg/0.5 mL pen injector 6 mg subcut ONCE MDD 12mg PRN (Reason: migraine headache) Qty: 90 1RF Rx Instructions: May repeat dose once in 1 hour if headache persists clonazepam 1 mg tablet 1 mg PO TID PRN (Reason: anxiety) Qty: 90 0RF (DME) Space Chamber Plus 1 EACH spacer 1 ea Miscellaneous Q4H PRN Qty: 1 0RF naloxone [Narcan] 4 MG spray,non-aerosol 4 mg NS DAILY PRN PRNQty: 2 0RF Rx Instructions: One spray (4mg) intranasally into one nostril. Use a new nasal spray for subsequent dose in alternate nostril if needed. May repeat once after initial dose in 2-3 minutes. polyethylene glycol 3350 [Miralax] 17 gram Powder In Packet 17 g PO DAILY PRN ondansetron HCl [Zofran] 4 mg Tablet 4 mg PO DAILY PRN hydrocodone-acetaminophen 7.5-325 mg tablet 1 tab PO BID PRN Zyrtec 10 mg Capsule 10 mg PO DAILY topiramate [Topamax] 200 mg tablet 200 mg PO BID Rx Instructions: Brand name medically necessary acidophilus-pectin, citrus 25 million cell -100 mg tablet 1 tab PO DAILY albuterol sulfate 2.5 mg /3 mL (0.083 %) Solution For Nebulization 2.5 mg INHALATION TID ascorbic acid (vitamin C) [Vitamin C] 500 mg Tablet 500 mg PO BID Qty: 60 0RF qvvchjioun-udbosdrjpvqtv-peay [Fioricet] 50-300-40 mg capsule 1 cap PO Q4H PRNQty: 60 0RF Rx Instructions: Take 1-2 tabs as needed for WILLETT, not to exceed 6 tabs in 24 hours cholecalciferol (vitamin D3) [Vitamin D3] 50 mcg (2,000 unit) capsule 50 mcg PO DAILY Qty: 30 0RF melatonin 3 mg Tablet 6 mg PO HS Qty: 30 0RF prochlorperazine maleate [Compazine] 10 mg tablet 10 mg PO TID PRNQty: 60 0RF promethazine 25 mg tablet 25 mg PO TID PRNQty: 60 0RF diphenhydramine HCl [Benadryl Allergy] 25 mg tablet 100 mg PO HS Label Comments: Take 4 tablet by mouth at bedtime Medical Decision Making 41 yo female with hx of Factor V Leiden and prior PE on coumadin comes in with ems after intentional overdose. She apparently overdosed approximately 2 hours ago on klonopin, banophen, cetirizine and coumadin. She had texted her she was going to end her life by taking the pills, who then called PD who did a wellfare check and ems found her lethargic and transported her here. She arrives with stable vitals and is lethargic but when painful stimuli is applied she will push the examiner away and say stop. She is unclear on how many of her klonopin and other meds she took but believes it was about 40 of each of them. She is moving all extremities and when asked to move her feet and hands does so though weekly. She is currently protecting her airway. Will obtain labs for coingestants and ekg and monitor. labs unremarkable other than mildly low Kand she is now more awake but still groggy, spoke with poison control who recommended q6hour INR checks for the 1st [address] Ellison who accepts for admission Differential Diagnosis Differential Diagnosis: overdose, sedation, coumadin overdose Lab Data Lab results reviewed: Yes I reviewed the patient's lab results. ECG Data Attestation: I personally reviewed and interpreted this ECG (s) as follows: Prior ECG tracings: available for review Interpretation: sinus rhythm, qrs 81, rate of 73, no acute st t wave ischemic findings HPI General Mode of arrival: EMS . Date/Time Provider Initiated Documentation: 11/14/21 21:53 . Limitations to Documentation: altered mental status . Information obtained by: EMS . History of Present Illness 41 year old F presents to the emergency department with the chief complaint of overdose, described as moderate, Patient started experiencing this hour(s) (2) and it has been constant. No relieving factors improve symptom(s), No exacerbating factors reported . Patient did receive the following treatments prior to arrival, none Related Data Home Medications Medication Instructions Recorded Confirmed calcium carb,cit 300 mg-D3 200 1 ea PO BID 11/09/12 11/14/21 unit-min no.34-genistein 13.5 mg tablet (Citracal Plus Bone Density Builder) inhalational spacing device (Space ##1 05/01/14 11/14/21 Chamber Plus) cyproheptadine 4 mg tablet 4 mg PO HS #90 tab-caps 06/04/16 11/14/21 naloxone 4 mg/actuation nasal 4 mg NS DAILY PRN PRN #2 sprays 12/08/16 11/14/21 spray (Narcan) triamcinolone acetonide 0.1 % 1 applic topical BID PRN eczema 09/05/19 11/14/21 topical cream #60 grams methylphenidate HCl 20 mg tablet 20 mg PO TID #84 tab-caps 10/20/19 11/14/21 diphenhydramine HCl 25 mg tablet 100 mg PO HS 12/13/19 11/14/21 (Benadryl Allergy) sucralfate 1 gram tablet 1 g PO AC & HS #120 tabs 12/30/19 11/14/21 clotrimazole-betamethasone 1 1 applic topical BID PRN rash #45 02/22/20 11/14/21 %-0.05 % topical cream grams epinephrine 0.3 mg/0.3 mL 0.3 mg (0.3 mL) IM ONCE #1 ea 02/22/20 11/14/21 injection, auto-injector (EpiPen 2-Nino) fluticasone propionate 220 2 inh inhalation BID ##3 02/22/20 11/14/21 mcg/actuation HFA aerosol inhaler (Flovent HFA) levothyroxine 125 mcg tablet 125 mcg PO .AM #90 tabs 02/22/20 11/14/21 omeprazole 40 mg capsule,delayed 40 mg PO DAILY GERD #90 caps 02/22/20 11/14/21 release albuterol sulfate 90 mcg/actuation 2 puff inhalation Q6H PRN ##3 03/07/20 11/14/21 aerosol inhaler (ProAir HFA) ondansetron HCl 8 mg tablet 8 mg PO BID PRN nausea and 03/07/20 11/14/21 vomiting #20 tabs sumatriptan succinate 6 mg/0.5 mL 6 mg (0.5 mL) subcut ONCE PRN 03/07/20 11/14/21 subcutaneous pen injector migraine headache #90 SYRGS clonazepam 1 mg tablet 1 mg PO TID PRN anxiety #90 tabs 03/20/20 11/14/21 acidophilus 25 million 1 tab PO DAILY 08/16/20 11/14/21 cell-pectin, citrus 100 mg tablet cetirizine 10 mg capsule (Zyrtec) 10 mg PO DAILY 08/16/20 11/14/21 hydrocodone 7.5 mg-acetaminophen 1 tab PO BID PRN 08/16/20 11/14/21 325 mg tablet ondansetron HCl 4 mg tablet 4 mg PO DAILY PRN 08/16/20 11/14/21 (Zofran) polyethylene glycol 3350 17 gram 17 g PO DAILY PRN 08/16/20 11/14/21 oral powder packet (Miralax) topiramate 200 mg tablet (Topamax) 200 mg PO BID 08/16/20 11/14/21 albuterol sulfate 2.5 mg/3 mL 2.5 mg inhalation TID 05/03/21 11/14/21 (0.083 %) solution for nebulization ascorbic acid (vitamin C) 500 mg 500 mg PO BID #60 tabs 05/04/21 11/14/21 tablet (Vitamin C) buynreygmu-nvxxwikdsuyrv-cvpjzdfd 1 cap PO Q4H PRN #60 caps 05/04/21 11/14/21 50 mg-300 mg-40 mg capsule (Fioricet) cholecalciferol (vitamin D3) 50 50 mcg PO DAILY #30 caps 05/04/21 11/14/21 mcg (2,000 unit) capsule (Vitamin D3) melatonin 3 mg tablet 6 mg PO HS #30 tabs 05/04/21 11/14/21 prochlorperazine maleate 10 mg 10 mg PO TID PRN #60 tabs 05/04/21 11/14/21 tablet (Compazine) promethazine 25 mg tablet 25 mg PO TID PRN #60 tabs 05/04/21 11/14/21 enoxaparin 80 mg/0.8 mL 80 mg subcut BID 07/18/21 11/14/21 subcutaneous syringe (Lovenox) warfarin 10 mg tablet 15 mg PO DAILY 07/18/21 11/14/21 Previous Rx's Medication Instructions Recorded inhalational spacing device (Space ##1 05/01/14 Chamber Plus) naloxone 4 mg/actuation nasal 4 mg NS DAILY PRN PRN #2 sprays 12/08/16 spray (Narcan) triamcinolone acetonide 0.1 % 1 applic topical BID PRN eczema 09/05/19 topical cream #60 grams methylphenidate HCl 20 mg tablet 20 mg PO TID #84 tab-caps 10/20/19 sucralfate 1 gram tablet 1 g PO AC & HS #120 tabs 12/30/19 clotrimazole-betamethasone 1 1 applic topical BID PRN rash #45 02/22/20 %-0.05 % topical cream grams epinephrine 0.3 mg/0.3 mL 0.3 mg (0.3 mL) IM ONCE #1 ea 02/22/20 injection, auto-injector (EpiPen 2-Nino) fluticasone propionate 220 2 inh inhalation BID ##3 02/22/20 mcg/actuation HFA aerosol inhaler (Flovent HFA) levothyroxine 125 mcg tablet 125 mcg PO .AM #90 tabs 02/22/20 omeprazole 40 mg capsule,delayed 40 mg PO DAILY GERD #90 caps 02/22/20 release albuterol sulfate 90 mcg/actuation 2 puff inhalation Q6H PRN ##3 03/07/20 aerosol inhaler (ProAir HFA) ondansetron HCl 8 mg tablet 8 mg PO BID PRN nausea and 03/07/20 vomiting #20 tabs sumatriptan succinate 6 mg/0.5 mL 6 mg (0.5 mL) subcut ONCE PRN 03/07/20 subcutaneous pen injector migraine headache #90 SYRGS clonazepam 1 mg tablet 1 mg PO TID PRN anxiety #90 tabs 03/20/20 ascorbic acid (vitamin C) 500 mg 500 mg PO BID #60 tabs 05/04/21 tablet (Vitamin C) sgsikagrtf-cpxdvdpuwhexk-qwzrozfy 1 cap PO Q4H PRN #60 caps 05/04/21 50 mg-300 mg-40 mg capsule (Fioricet) cholecalciferol (vitamin D3) 50 50 mcg PO DAILY #30 caps 05/04/21 mcg (2,000 unit) capsule (Vitamin D3) melatonin 3 mg tablet 6 mg PO HS #30 tabs 05/04/21 prochlorperazine maleate 10 mg 10 mg PO TID PRN #60 tabs 05/04/21 tablet (Compazine) promethazine 25 mg tablet 25 mg PO TID PRN #60 tabs 05/04/21 Allergies Allergy/AdvReac Type Severity Reaction Status Date / Time aripiprazole [From Abilify] Allergy Severe Rash, hives Verified 11/14/21 23:02 doxycycline Allergy Severe Anaphylaxsi Verified 11/14/21 23:02 s levetiracetam [From Keppra] Allergy Severe RASH/HIVES Verified 11/14/21 23:02 sulfamethoxazole Allergy Severe Hives Verified 11/14/21 23:02 venom-honey bee Allergy Severe unknown Verified 11/14/21 23:02 Penicillins Allergy Intermediate Skin Rash Verified 11/14/21 23:02 chlorhexidine Allergy Unknown unknown Verified 11/14/21 23:02 Sulfa (Sulfonamide Allergy Verified 11/14/21 23:02 Antibiotics) mold AdvReac Severe Wheezing Verified 11/14/21 23:02 oxycodone [Oxycodone] AdvReac Severe vomits Verified 11/14/21 23:02 paroxetine AdvReac Severe Irritability Verified 11/14/21 23:02 and anger dicloxacillin [Dicloxacillin] AdvReac Mild Nausea Verified 11/14/21 23:02 gabapentin AdvReac Mild hives Verified 11/14/21 23:02 prednisone AdvReac Agitation Verified 11/14/21 23:02 trazodone AdvReac shortness Verified 11/14/21 23:02 of breath verapamil [Verapamil] AdvReac Worsening Verified 11/14/21 23:02 migraine nuts Allergy Severe Anaphylaxsi Uncoded 11/14/21 23:02 s General RYNE: 3 Review of Systems Unobtainable due to mental status PFSH All Active Problems (Updated 11/14/21 @ 22:54 by Lester Gorman MD) Intentional overdose (Acute) Intractable nausea and vomiting (Acute) SARS-CoV-2 positive (Acute) Enterocolitis (Acute) Gastroesophagitis (Acute) Leukocytosis, unspecified (Acute) Intractable nausea and vomiting (Acute) Chronic anticoagulation (Chronic) On coumadin Cyclic vomiting syndrome (Acute) Panic disorder (Chronic 03/21/16) Chronic back pain greater than 3 months duration (Chronic 12/29/14) ADHD (attention deficit hyperactivity disorder), 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) B12 deficiency (Chronic) Medical History (Updated 11/14/21 @ 22:54 by Lester Gorman MD) Acute deep vein thrombosis (DVT) of left lower extremity Acute renal insufficiency Asthma (11/08/12) Candidiasis Cellulitis of left leg Chronic anticoagulation Cyst of fallopian tube Depression Factor V Leiden mutation GERD (gastroesophageal reflux disease) Hematuria History of DVT (deep vein thrombosis) Hypothyroidism Iatrogenic pulmonary embolism and infarction Intractable vomiting with nausea Left buttock abscess Left lower quadrant pain (01/27/12) Migraine headache Nephrolithiasis Orbital cellulitis on left Other enthesopathies, not elsewhere classified (03/21/16) Neck Preseptal cellulitis of left eye Recurrent deep vein thrombosis (DVT) Right lower quadrant abdominal pain inflamed/ruptured fallopian tube on the right Thrombosis of arteries of lower extremity Vaginal candidiasis Surgical History Abdominal hysterectomy (~2009) 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) Arthroplasty of knee (~1999) left Bilateral salpingectomy with oophorectomy (~2008) Cervical Conization/LEEP LEEP 2003 [facility] BX 2003 Cholecystectomy History of arthroscopy of knee S/P appendectomy (12/24/17) Dr Veliz - Car appgm and car excision of R fallopian tube remnant Status post cholecystectomy Status post LEEP (loop electrosurgical excision procedure) of cervix THUMB RECONSTRUCTION left; in childhood Social History Smoking/Tobacco Use Status: Never Smoking risk assessment performed?: Yes Alcohol Intake: former Drug use: Daily Substance use type: marijuana Current gender identity: female Do you feel safe at home: Yes Do you feel safe in your relationship?: Yes Additional Social history: Patient is and with one child. Exam Const General: lethargic HENMT Head: normal to inspection Ears: external ears normal General nose exam: external nose normal Mouth: moist mucous membranes Eyes General: appearance normal, both eyes and all related structures Neck Neck: normal visual inspection Resp Effort & Inspection: normal respiratory effort and able to speak in complete sentences Cardio Rate: regular rate Skin General skin exam: no rashes or lesions noted Neuro General: other (lethargic) Extrem General: normal to inspection
[2021-11-14] MEDS: Normal Saline 1,000 ML 1000 ML IV (22:05)
[2021-11-14 22:09] LABS: BE (Venous) 2 mmol/L (-2-3); HCO3 (Venous) 27 mmol/L (23-28); O2 Sat (Venous) 58 %; TCO2 (Venous) 25 mmol/L (24-29); pCO2 (Venous) 48 mmHg (41-51); pH (Venous) 7.37 (7.31-7.41); pO2 (Venous) 30 mmHg
[2021-11-14 22:10] LABS: Lactate 0.9 mmol/L (0.6-1.4); Source Nasal/Nares
[2021-11-14 22:14] LABS: Abs Immature Grans 0.04 10^3/uL (0.0-0.06); Absolute Basophil Count 0.05 10^3/uL (0.0-0.2); Absolute Eosinophil Count 0.34 10^3/uL (0.0-0.7); Absolute Lymphocyte Count 1.78 10^3/uL (1.2-3.4); Absolute Neutrophil Count 7.63 10^3/uL (1.2-6.7); Basophils % 0.5; Eosinophils % 3.3; HCT 37.2 % (36.0-46.0); HGB 12.7 g/dL (11.2-15.7); Immature Grans % 0.4; Lymphocytes % 17.2; MCH 28.7 pg (27.0-33.0); MCHC 34.1 % (32.0-36.0); MCV 84 fL (80-95); MPV 10.9 fL (8.0-11.0); Monocytes % 4.8; Neutrophils % 73.8; Platelet Count 232 10^3/uL (130-400); RBC 4.43 10^6/uL (3.93-5.22); RDW 13.8 % (11.7-14.6); RDW-SD 42.6 fL; WBC 10.34 10^3/uL (4.4-10.8)
[2021-11-14 22:27] LABS: INR 1.3 (0.9-1.1); Prothrombin Time 12.5 sec (9.3-11.0)
[2021-11-14 22:35] LABS: ALT 27 U/L (14-59); AST 12 U/L (15-37); Alkaline Phosphatase 48 U/L (46-116); BUN 11 mg/dL (7-18); Bilirubin, Total 0.7 mg/dL (0.2-1.0); Calcium 8.5 mg/dL (8.5-10.1); Chloride 104 mmol/L (98-107); Glucose 106 mg/dL (74-106); Magnesium 1.9 mg/dL (1.8-2.4); Potassium 3.1 mmol/L (3.5-5.1); Sodium 139 mmol/L (136-145)
[2021-11-14 22:36] LABS: Salicylate < 2.8 mg/dL (<2.8)
[2021-11-14 22:37] LABS: Acetaminophen < 2 ug/mL (10-30)
[2021-11-14 22:48] LABS: ETHANOL BLOOD < 3.0 mg/dL (<10)
[2021-11-14] MEDS: POTASSIUM CHLORIDE 10 MEQ/100 ML BAG 100 MEQ IVPB (22:59)
[2021-11-14 23:00] LABS: COVID-19 PCR Negative (Negative)
[2021-11-14 23:03] LABS: *AMPHETAMINES SCREEN URINE Negative (Negative); *BARBITURATES SCREEN URINE Negative (Negative); *BENZODIAZEPINES SCREEN URINE Negative (Negative); Cannabinoids THC Positive (Negative); Cocaine Screen,Urine Positive (Negative); METHADONE URINE SCREEN Negative (Negative); OPIATES URINE SCREEN Positive (Negative); Tricyclic Antidepressants Negative (Negative)
--- NOTE | 2021-11-14 23:30 | RT.EKG_ITS ---
APPROVED REPORT Exam: Resting ECG Reason for Exam: overdose Patient Location: E HR:67 bpm ECG Measurements Heart Rate 67 AXIS ME 175 P 64 QRSd 86 QRS -22 QT 445 T 34 QTc 469 Conclusion Sinus rhythm...normal P axis, V-rate 60- 99 Low voltage, extremity and precordial leads...extremity<0.5mV, precordial<1.0mV
[2021-11-14] MEDS: Ketamine 500 MG/5 ML VIAL (23:33)
[2021-11-15] VITALS (86 sets, daily range): BP systolic 116–176; BP diastolic 77–100; PULSE 50–106; RESP 9–28; TEMP 36.1–36.6; O2SAT 95–99
--- NOTE | 2021-11-15 00:27 | NUR.NOTE ---
2203: Pt woke up and requested to go to the bathroom. Pt ambulated to the bathroom with stand by assist. Provided urine sample. upon return to room pt asked to speak to her son. Pt called her son her cell phone. Pt immediately become belligerent blaming her son for her current situation. Phone removed from room. +/- 2300 pt requesting to call her son again. Request denied. Pt pending MH screening when medically clear. Pt threatening to leave. Pt informed that she could not leave. 2322: ketamine IM administered as pt was a danger to herself.
--- NOTE | 2021-11-15 00:38 | NUR.NOTE ---
Nursing Note: pt is in soft restraints
--- NOTE | 2021-11-15 01:25 | W.PM.HP.N ---
Date of service: 11/15/21 Time of Service: 01:25 Assessment and Plan Assessment and plan (1) Intentional overdose: Status: Acute Assessment and plan: Case reviewed in the emergency room with poison control. Combination benzodiazepine, anticholinergic, vitamin K antagonist overdose. Also cocaine, opiates, THC in her urine. Uncertain quantities. EKGs and initial labs reassuring. She is again somnolent after getting ketamine, but she is breathing well and protecting her airway. Continue close monitoring in the ICU Soft restrains for now for safety She will need observer, crisis evaluation when she is more awake and alert. (2) Chronic anticoagulation: Status: Chronic Assessment and plan: Her INR is subtherapeutic, but we are holding off on warfarin therapy or LMWH until we see what the INRs will do in response to her ingestion. INR every 6 hours per poision control reconsider snf plan when she is able to make decisions. (3) Discharge planning issues: Status: Acute Assessment and plan: Currently monitored in the ICU. She will need mental health evaluation and consideration for admission after she is medically cleared. History of Present Illness History of Present Illness Chief Complaint: overdose Narrative: 41 yo F with history of mood disorder and [facility], factor V Leiden with history of pulmonary embolism who was brought to the emergency room after intentional overdose. Per EMS report, two hours prior to admission she took an unclear quantity of clonezepam, diphenhydramine, cetirizine, and warfarin. She texted her and told him of her plans to end her life by taking pills. He called the police, who went to the home and found her lethargic. She eventually was awake enough in the emergency room to tell them she thinks she took 40 of each type of pill and cooperate by following some simple commands during the exam. After about 2 hour in the emergency room, she stood up and indicated she was going to leave, was unsteady on her feet and slurring her speech. She became combative when asking her to sit back down and IM ketamine was used for chemical sedation at about 2330. When I evaluated her at 1:20am, she was sedated and did not respond to questioning, only weak responses to noxious stimuli. She was breathing comfortably and on the monitor in the ICU. She was pulling at her IV so soft restraints were placed for her safety. Review of Systems Narrative: limited by mental status/sedation PFSH All Active Problems (Updated 11/15/21 @ 01:40 by Jonny Ellison) Discharge planning issues (Acute) DVT prophylaxis (Acute) Intentional overdose (Acute) Intractable nausea and vomiting (Acute) Enterocolitis (Acute) Gastroesophagitis (Acute) Leukocytosis, unspecified (Acute) Intractable nausea and vomiting (Acute) Chronic anticoagulation (Chronic) On coumadin Cyclic vomiting syndrome (Acute) Panic disorder (Chronic 03/21/16) Chronic back pain greater than 3 months duration (Chronic 12/29/14) ADHD (attention deficit hyperactivity disorder), 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) B12 deficiency (Chronic) Medical History Acute deep vein thrombosis (DVT) of left lower extremity Acute renal insufficiency Asthma (11/08/12) Candidiasis Cellulitis of left leg Chronic anticoagulation Cyst of fallopian tube Depression Factor V Leiden mutation GERD (gastroesophageal reflux disease) Hematuria History of DVT (deep vein thrombosis) Hypothyroidism Iatrogenic pulmonary embolism and infarction Intractable vomiting with nausea Left buttock abscess Left lower quadrant pain (01/27/12) Migraine headache Nephrolithiasis Orbital cellulitis on left Other enthesopathies, not elsewhere classified (03/21/16) Neck Preseptal cellulitis of left eye Recurrent deep vein thrombosis (DVT) Right lower quadrant abdominal pain inflamed/ruptured fallopian tube on the right Thrombosis of arteries of lower extremity Vaginal candidiasis Surgical History Abdominal hysterectomy (~2009) 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) Arthroplasty of knee (~1999) left Bilateral salpingectomy with oophorectomy (~2008) Cervical Conization/LEEP LEEP 2003 CONE BX 2003 Cholecystectomy History of arthroscopy of knee S/P appendectomy (12/24/17) Dr Veliz - Car ellsworth and car excision of R fallopian tube remnant Status post cholecystectomy Status post LEEP (loop electrosurgical excision procedure) of cervix THUMB RECONSTRUCTION left; in childhood Social History Smoking/Tobacco Use Status: Never Smoking risk assessment performed?: Yes Alcohol Intake: former Drug use: Daily Substance use type: marijuana Current gender identity: female Do you feel safe at home: Yes Do you feel safe in your relationship?: Yes Additional Social history: Patient is and with one child. Meds Allergies and Home Medications Allergies Allergy/AdvReac Type Severity Reaction Status Date / Time aripiprazole [From Abilify] Allergy Severe Rash, hives Verified 11/14/21 23:02 doxycycline Allergy Severe Anaphylaxsi Verified 11/14/21 23:02 s levetiracetam [From Keppra] Allergy Severe RASH/HIVES Verified 11/14/21 23:02 sulfamethoxazole Allergy Severe Hives Verified 11/14/21 23:02 venom-honey bee Allergy Severe unknown Verified 11/14/21 23:02 Penicillins Allergy Intermediate Skin Rash Verified 11/14/21 23:02 chlorhexidine Allergy Unknown unknown Verified 11/14/21 23:02 Sulfa (Sulfonamide Allergy Verified 11/14/21 23:02 Antibiotics) mold AdvReac Severe Wheezing Verified 11/14/21 23:02 oxycodone [Oxycodone] AdvReac Severe vomits Verified 11/14/21 23:02 paroxetine AdvReac Severe Irritability Verified 11/14/21 23:02 and anger dicloxacillin [Dicloxacillin] AdvReac Mild Nausea Verified 11/14/21 23:02 gabapentin AdvReac Mild hives Verified 11/14/21 23:02 prednisone AdvReac Agitation Verified 11/14/21 23:02 trazodone AdvReac shortness Verified 11/14/21 23:02 of breath verapamil [Verapamil] AdvReac Worsening Verified 11/14/21 23:02 migraine nuts Allergy Severe Anaphylaxsi Uncoded 11/14/21 23:02 s Home Medications Medication Instructions Recorded Confirmed Type calcium carb,cit 300 mg-D3 200 1 ea PO BID 11/09/12 11/14/21 History unit-min no.34-genistein 13.5 mg tablet (Citracal Plus Bone Density Builder) inhalational spacing device (Space ##1 05/01/14 11/14/21 Rx Chamber Plus) cyproheptadine 4 mg tablet 4 mg PO HS #90 tab-caps 06/04/16 11/14/21 History naloxone 4 mg/actuation nasal 4 mg NS DAILY PRN PRN #2 sprays 12/08/16 11/14/21 Rx spray (Narcan) triamcinolone acetonide 0.1 % 1 applic topical BID PRN eczema 09/05/19 11/14/21 Rx topical cream #60 grams methylphenidate HCl 20 mg tablet 20 mg PO TID #84 tab-caps 10/20/19 11/14/21 Rx diphenhydramine HCl 25 mg tablet 100 mg PO HS 12/13/19 11/14/21 History (Benadryl Allergy) sucralfate 1 gram tablet 1 g PO AC & HS #120 tabs 12/30/19 11/14/21 Rx clotrimazole-betamethasone 1 1 applic topical BID PRN rash #45 02/22/20 11/14/21 Rx %-0.05 % topical cream grams epinephrine 0.3 mg/0.3 mL 0.3 mg (0.3 mL) IM ONCE #1 ea 02/22/20 11/14/21 Rx injection, auto-injector (EpiPen 2-Nino) fluticasone propionate 220 2 inh inhalation BID ##3 02/22/20 11/14/21 Rx mcg/actuation HFA aerosol inhaler (Flovent HFA) levothyroxine 125 mcg tablet 125 mcg PO .AM #90 tabs 02/22/20 11/14/21 Rx omeprazole 40 mg capsule,delayed 40 mg PO DAILY GERD #90 caps 02/22/20 11/14/21 Rx release albuterol sulfate 90 mcg/actuation 2 puff inhalation Q6H PRN ##3 03/07/20 11/14/21 Rx aerosol inhaler (ProAir HFA) ondansetron HCl 8 mg tablet 8 mg PO BID PRN nausea and 03/07/20 11/14/21 Rx vomiting #20 tabs sumatriptan succinate 6 mg/0.5 mL 6 mg (0.5 mL) subcut ONCE PRN 03/07/20 11/14/21 Rx subcutaneous pen injector migraine headache #90 SYRGS clonazepam 1 mg tablet 1 mg PO TID PRN anxiety #90 tabs 03/20/20 11/14/21 Rx acidophilus 25 million 1 tab PO DAILY 08/16/20 11/14/21 History cell-pectin, citrus 100 mg tablet cetirizine 10 mg capsule (Zyrtec) 10 mg PO DAILY 08/16/20 11/14/21 History hydrocodone 7.5 mg-acetaminophen 1 tab PO BID PRN 08/16/20 11/14/21 History 325 mg tablet ondansetron HCl 4 mg tablet 4 mg PO DAILY PRN 08/16/20 11/14/21 History (Zofran) polyethylene glycol 3350 17 gram 17 g PO DAILY PRN 08/16/20 11/14/21 History oral powder packet (Miralax) topiramate 200 mg tablet (Topamax) 200 mg PO BID 08/16/20 11/14/21 History albuterol sulfate 2.5 mg/3 mL 2.5 mg inhalation TID 05/03/21 11/14/21 History (0.083 %) solution for nebulization ascorbic acid (vitamin C) 500 mg 500 mg PO BID #60 tabs 05/04/21 11/14/21 Rx tablet (Vitamin C) idqtffrgfm-emewrvtamrwbz-wbwplxad 1 cap PO Q4H PRN #60 caps 05/04/21 11/14/21 Rx 50 mg-300 mg-40 mg capsule (Fioricet) cholecalciferol (vitamin D3) 50 50 mcg PO DAILY #30 caps 05/04/21 11/14/21 Rx mcg (2,000 unit) capsule (Vitamin D3) melatonin 3 mg tablet 6 mg PO HS #30 tabs 05/04/21 11/14/21 Rx prochlorperazine maleate 10 mg 10 mg PO TID PRN #60 tabs 05/04/21 11/14/21 Rx tablet (Compazine) promethazine 25 mg tablet 25 mg PO TID PRN #60 tabs 05/04/21 11/14/21 Rx enoxaparin 80 mg/0.8 mL 80 mg subcut BID 07/18/21 11/14/21 History subcutaneous syringe (Lovenox) warfarin 10 mg tablet 15 mg PO DAILY 07/18/21 11/14/21 History Exam Narrative Exam Narrative: GEN: Sedated, breathing comfortably lying in hospital bed in ICU. No acute distress. Responds to noxious stimuli, not to voice HEENT: Head atraumatic. Conjunctiva clear, no icterus. PEERL, EOMI, pupils about 2mm lexis. no rhinorrhea. MMM, OP benign. Neck is supple with no masses or lymphadenopathy, trachea midline LUNGS: CTAB with normal effort CV: RRR with no murmurs, gallops, or rubs. ABD: +BS, soft, NT/ND EXT: no cyanosis, clubbing, or edema MSK: No joint redness or swelling NEURO: CN 2-12 grossly intact. Normal movement of 4 extremities. Normal speech and coordination SKIN: No rashs or open wounds. several dark bruises on abdomen including ~5x10cm in inferior pannus PSYCH: sedated Results Imaging EKG: report reviewed (x 2, no wide QRS, nl QTc) Labs Result diagrams: 11/14/21 22:03 11/14/21 22:03 Labs: Laboratory Results - last 24 hr 11/14/21 11/14/21 11/14/21 22:03 22:03 22:03 WBC RBC Hgb Hct MCV MCH MCHC RDW Plt Count MPV Immature Gran % Neutrophils % Lymphocytes % Monocytes % Eosinophils % Basophils % Nucleated RBC % Absolute Neutrophils Absolute Lymphocytes Absolute Monocytes Absolute Eosinophils Absolute Basophils PT INR APTT VBG pH VBG pCO2 VBG pO2 VBG HCO3 VBG Total CO2 VBG O2 Saturation VBG Base Excess VBG Lactate Sodium 139 Potassium 3.1 L Chloride 104 Carbon Dioxide 28.0 Anion Gap 7.0 BUN 11 Creatinine 1.0 Estimated GFR/1.73 m2 >= 60.00 Glucose 106 Calcium 8.5 Magnesium 1.9 Total Bilirubin 0.7 AST 12 L ALT 27 Alkaline Phosphatase 48 Total Protein 7.0 Albumin 4.0 Salicylates < 2.8 Urine Opiates Screen Urine Methadone Screen Acetaminophen < 2 Ur Barbiturates Screen Ur Tricyclics Screen Ur Amphetamines Screen U Benzodiazepines Scrn Urine Cocaine Screen Ur THC Screen Ethyl Alcohol < 3.0 COVID-19 Source Nasal/Nares SARS-CoV-2 (PCR) Negative 11/14/21 11/14/21 11/14/21 22:03 22:03 22:03 WBC 10.34 RBC 4.43 Hgb 12.7 Hct 37.2 MCV 84 MCH 28.7 MCHC 34.1 RDW 13.8 Plt Count 232 MPV 10.9 Immature Gran % 0.4 Neutrophils % 73.8 Lymphocytes % 17.2 Monocytes % 4.8 Eosinophils % 3.3 Basophils % 0.5 Nucleated RBC % 0.0 Absolute Neutrophils 7.63 H Absolute Lymphocytes 1.78 Absolute Monocytes 0.50 Absolute Eosinophils 0.34 Absolute Basophils 0.05 PT 12.5 H INR 1.3 H APTT 26.0 VBG pH VBG pCO2 VBG pO2 VBG HCO3 VBG Total CO2 VBG O2 Saturation VBG Base Excess VBG Lactate 0.9 Sodium Potassium Chloride Carbon Dioxide Anion Gap BUN Creatinine Estimated GFR/1.73 m2 Glucose Calcium Magnesium Total Bilirubin AST ALT Alkaline Phosphatase Total Protein Albumin Salicylates Urine Opiates Screen Urine Methadone Screen Acetaminophen Ur Barbiturates Screen Ur Tricyclics Screen Ur Amphetamines Screen U Benzodiazepines Scrn Urine Cocaine Screen Ur THC Screen Ethyl Alcohol COVID-19 Source SARS-CoV-2 (PCR) 11/14/21 11/14/21 22:03 22:40 WBC RBC Hgb Hct MCV MCH MCHC RDW Plt Count MPV Immature Gran % Neutrophils % Lymphocytes % Monocytes % Eosinophils % Basophils % Nucleated RBC % Absolute Neutrophils Absolute Lymphocytes Absolute Monocytes Absolute Eosinophils Absolute Basophils PT INR APTT VBG pH 7.37 VBG pCO2 48 VBG pO2 30 VBG HCO3 27 VBG Total CO2 25 VBG O2 Saturation 58 VBG Base Excess 2 VBG Lactate Sodium Potassium Chloride Carbon Dioxide Anion Gap BUN Creatinine Estimated GFR/1.73 m2 Glucose Calcium Magnesium Total Bilirubin AST ALT Alkaline Phosphatase Total Protein Albumin Salicylates Urine Opiates Screen Positive A Urine Methadone Screen Negative Acetaminophen Ur Barbiturates Screen Negative Ur Tricyclics Screen Negative Ur Amphetamines Screen Negative U Benzodiazepines Scrn Negative Urine Cocaine Screen Positive A Ur THC Screen Positive A Ethyl Alcohol COVID-19 Source SARS-CoV-2 (PCR) Last Vital Signs Temp 36.7 C 11/14/21 21:50 Pulse 63 11/15/21 00:01 Resp 15 11/15/21 00:30 BP 176/87 H 11/15/21 00:01 Pulse Ox 96 11/15/21 00:10
[2021-11-15 02:04] LABS: INR 1.2 (0.9-1.1); Prothrombin Time 12.1 sec (9.3-11.0)
[2021-11-15] MEDS: LORazepam 20 MG/10 ML VIAL IVP (04:49)
[2021-11-15] MEDS: Normal Saline Flush 10 ML SYR IVP ×2 (04:51→10:03)
--- NOTE | 2021-11-15 08:29 | NUR.NOTE ---
Patient requesting that I call Ba to let him know she is in the Intensive Care Unit. But to no tell him why because she wants to be the one to tell him. Will wait until care plan is updated to call. Nursing Note:
--- NOTE | 2021-11-15 09:00 | INITIAL_ITS ---
- If Service Date Differs Date of service: 11/15/21 Time of Service: 09:00 Care Management Initial Assess REASON FOR HOSPITALIZATION:: Overdose PAST MEDICAL HISTORY/PAST SURGICAL HISTORY:: Medical History . Acute deep vein thrombosis (DVT) of left lower extremity. Acute renal insufficiency. Asthma (11/08/12). Candidiasis. Cellulitis of left leg. Chronic anticoagulation. Cyst of fallopian tube. Depression. Factor V Leiden mutation. GERD (gastroesophageal reflux disease). Hematuria. History of DVT (deep vein thrombosis). Hypothyroidism. Iatrogenic pulmonary embolism and infarction. Intractable vomiting with nausea. Left buttock abscess. Left lower quadrant pain (01/27/12). Migraine headache. Nephrolithiasis. Orbital cellulitis on left. Other enthesopathies, not elsewhere classified (03/21/16). Neck. Preseptal cellulitis of left eye. Recurrent deep vein thrombosis (DVT). Right lower quadrant abdominal pain. inflamed/ruptured fallopian tube on the right. Thrombosis of arteries of lower extremity. Vaginal candidiasis. Surgical History . Abdominal hysterectomy (~2009). 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 Arthroplasty of knee (~1999). left. Bilateral salpingectomy with oophorectomy (~2008). Cervical Conization/LEEP. LEEP 2002. CONE BX 2002. Cholecystectomy. History of arthroscopy of knee. S/P appendecto my (12/24/17). Dr Veliz - Car ellsworth and car excision of R fallopian tube remnant. Status post cholecystectomy. Status post LEEP (loop electrosurgical excision procedure) of cervix. THUMB RECONSTRUCTION. left; in childhood PREVIOUS FUNCTIONAL STATUS/SOCIAL/FAMILY SUPPORTS:: Suzie resides in [facility], her son Braulio resides with her, but spends most of him time at his significant other's home. Dionna was recently and is going through seperation, she identifies this as an unhealthy relationship and reports previously filing a restraining order on Glory, her . Her main support is her friend Ba at this time. Suzie is independent on baseline, through struggles with chronic pain and medical issues and is deemed disabled, with SSDI support. CURRENT FUNCTIONAL STATUS:: Suzie is in the ICU at this time. She is medically cleared and awaiting [facility] Crisis Screening to determine disposition. She is teary, and describing her many medical issues and how overwhelmed she feels with chronic stress and pain central to medical diagnosis and symptoms including chronic pain. ADVANCE DIRECTIVES:: On file. Has patient been provided with info about the portal/API?: Yes Did the patient sign up for the portal?: Yes CODE STATUS:: Full Code INSURANCE COVERAGE / FINANCIAL ISSUES:: Medicare. Medicaid CURRENT HOME/COMMUNITY SERVICES/EQUIPMENT:: Therapist. INR device. PRIMARY CARE PHYSICIAN:: Patrica Lopez POTENTIAL DISCHARGE NEEDS:: MH Evaluation and intake, [facility] referral, Palliative referral. PATIENT/FAMILY EDUCATION NEEDS:: Review discharge instructions, discuss Ask me Three. ANTICIPATED BARRIERS TO DISCHARGE:: None identified. TRANSPORTATION:: Dependent on disposition. PLAN:: uSzie will be evaluated by crisis screeners through [facility]. CM continues to follow.
--- NOTE | 2021-11-15 09:12 | NUR.NOTE ---
Care management in room Nursing Note:
--- NOTE | 2021-11-15 09:45 | PDOC.CMSAFE ---
- If Service Date Differs Date of service: 11/15/21 Time of Service: 09:45 Care Management Safety Plan Status: Interim - Reason for Wait Reason for Wait: Assessment/Screening Suzie is a well known medical patient of [facility], she has not previously been admitted for mental health evaluation. CM met with Suzie to review process and procedure as she verbalized not wanting to meet with mental health. Suzie noted interpersonal stressors and medical stressors as reasons for wanting to end her life, on her own terms. If screener deems patient meets criteria for psychiatric stabilization CM will facilitate interdepartmental huddle with [facility] screener for safety planning considerations and meet with patient to review [facility] policy and safety plan, establish individual wishes for treatment and maintain patient rights. In the interim; please note safety plan below to guide patient care while awaiting further assessment in the ED. INTERIM SAFETY PLAN: 1. Will remain on suicide precautions and in paper clothes or hospital gown. 2. Will remain in room under direct supervision of one-on-one staff at all times provided by MAN[employer], [employer] general i farmworker. 3. May have paper cups, plates, finger foods as well as a cardboard spoon with which to eat meals. 4. Follow [facility] Management of the Admitted Behavioral Health Patient policy. 5. Personal care: Comfort bath system and shower permitted at RN discretion. 6. Bathroom privileges available in room without limitation in ICU. 6. Personal belongings limited to cell phone at this time; per RN discretion. 7. Visitors limited to friend Ba, and sonBraulio at this time. 8. Phone contact via cellphone without limitation; at RN discretion. 9. Activities: Music tablet per RN discretion. Med/Surg: Television and remote available at RN discretion. 10. Due to INTERIM status, if patient wishes to leave [facility], staff will contact [facility] Crisis Screener ([phone]) and On-Call Rivet Hammer Machine Operator ([phone]) as soon as possible. In the event of elopement, notify [facility] Police ([phone]). If deemed appropriate for inpatient psychiatric care, safety plan will be established with patient, and care team, to adhere to patient goals, identify restrictions based on behavioral status, address nutrition, and determine allowed personal belongings, tools for hygiene and personal care. As well plan will determine level of activity including ambulation, level of supervision, visitors, and determine privileges based on level of acuity, behaviors and level of engagement by patient.
[2021-11-15] MEDS: Cholecalciferol (Vitamin D3) 1,000 UNIT TAB 2000 UNITS PO (09:48)
[2021-11-15] MEDS: Topiramate 100 MG TAB 200 MG PO (09:48)
[2021-11-15] MEDS: Lactobacillus Acidophilus CAP 1 CAP PO (09:49)
[2021-11-15] MEDS: Calcium 600mg/Vit D 200U TAB 1 TAB PO (09:49)
[2021-11-15] MEDS: Omeprazole 20 MG CAPCR 40 MG PO (09:49)
[2021-11-15] MEDS: Ascorbic Acid 500 MG TAB PO (09:49)
[2021-11-15] MEDS: Sucralfate 1 GM TAB PO ×3 (09:49→17:16)
[2021-11-15] MEDS: Mometasone 220 MCG 14 DOSE INHALER 2 PUFF IH (09:54)
[2021-11-15 10:12] LABS: Abs Immature Grans 0.03 10^3/uL (0.0-0.06); Absolute Basophil Count 0.04 10^3/uL (0.0-0.2); Absolute Eosinophil Count 0.48 10^3/uL (0.0-0.7); Absolute Lymphocyte Count 1.52 10^3/uL (1.2-3.4); Absolute Monocyte Count 0.45 10^3/uL (0.1-0.8); Basophils % 0.6; Eosinophils % 6.8; HCT 39.6 % (36.0-46.0); HGB 13.1 g/dL (11.2-15.7); Immature Grans % 0.4; Lymphocytes % 21.7; MCH 28.2 pg (27.0-33.0); MCHC 33.1 % (32.0-36.0); MCV 85 fL (80-95); MPV 10.9 fL (8.0-11.0); Monocytes % 6.4; Neutrophils % 64.1; Platelet Count 231 10^3/uL (130-400); RBC 4.64 10^6/uL (3.93-5.22); RDW 14.2 % (11.7-14.6); RDW-SD 43.8 fL; WBC 7.02 10^3/uL (4.4-10.8)
[2021-11-15 10:26] LABS: ALT 25 U/L (14-59); AST 16 U/L (15-37); Albumin 4.1 g/dL (3.4-5.0); Alkaline Phosphatase 49 U/L (46-116); Anion Gap 6.2 mmol/L (3-11); BUN 11 mg/dL (7-18); Bilirubin, Total 0.6 mg/dL (0.2-1.0); CO2 27.8 mmol/L (21.0-32.0); Calcium 8.6 mg/dL (8.5-10.1); Chloride 106 mmol/L (98-107); Glucose 99 mg/dL (74-106); Sodium 140 mmol/L (136-145); Total Protein 7.2 g/dL (6.4-8.2)
[2021-11-15 10:30] LABS: INR 1.2 (0.9-1.1); Prothrombin Time 12.1 sec (9.3-11.0)
--- NOTE | 2021-11-15 12:29 | NUR.NOTE ---
Patient requested new hipaa form. She only wants information released to Ba Scott and her son Braulio Rodriguez. Nursing Note:
--- NOTE | 2021-11-15 12:53 | PDOC.CMDIS ---
- If Service Date Differs Date of service: 11/15/21 Time of Service: 12:53 LACE Index Scoring Tool - Questions: Length of Stay (in days): 1 Acuity (Admit via E.D.?): Yes Care Management Discharge Reason for Hospitalization: Overdose
--- NOTE | 2021-11-15 12:54 | PDOC.MHCN_ITS ---
Date of service: 11/15/21 Time of Service: 12:54 Mental Health Crisis Note Presenting Issue How did you arrive at the ED and why did you come: Client presented to [facility] ED on 11/14/2021 after an intentional overdose on her medications. Client is medically cleared and seen for assessment today. Precipitating Factors Client denies current SI/HI and states that she regrets what transpired yesterday. Disposition BEHAVIOR: Client is laying down in hospital bed dressed in hospital gown when this staff writer arrives in person. Client is hesitant to engage with this staff writer, however when [facility] clinical care coordinator is present she engages. EYE CONTACT: Good MOOD: depressed, sad, tearful AFFECT: flat APPETITE: Client reports that she does not have an appetite. SLEEP(trouble falling/staying asleep: Client reports that even with her sleep regiment medications she averages about 3 hours of sleep a night. Plan Client will be discharged on pro-active safety plan which is complete with her partner Ba. [facility] will check-in with Ba throughout the weekend and will check-in with client on Thursday. Ba will lock up clients medications and administer them to her. [facility] clinical care coordinator will do referral for [place] [facility] Nurse and pallative care. Intake paperwork is complete with [facility] and referral for case managment will be completed. Signature Clinician's Name/Title: Macey Pope [facility] Emergency Clinician
--- NOTE | 2021-11-15 12:54 | PDOC.CMDIS ---
- If Service Date Differs Date of service: 11/15/21 Time of Service: 12:54 LACE Index Scoring Tool - Questions: Length of Stay (in days): 1 Acuity (Admit via E.D.?): Yes E.D. Visits: 2 - Answers: Total Score: 6 Risk of Readmission: Low Risk Care Management Discharge Reason for Hospitalization: Overdose Discharge Plan: Suzie will return to the community to stay with her friend Ba, who [facility] reports will be monitoring her medications. CM faxed referral to Palliative, and [facility]. CM provided updated HIPPA and HCA forms as well. Macey [facility] crisis screener completed intake for Suzie for emergency case management and possible medication management as well. [facility] will make check-in calls over the weekend to Suzie and Ba. Suzie will transport via private vehicle with Ba. Patient/Family Education Needs: Review discharge instructions, discuss Ask Me Three.
--- NOTE | 2021-11-15 12:54 | PDOC.MHCN ---
Date of service: 11/15/21 Time of Service: 12:54 Mental Health Crisis Note Presenting Issue How did you arrive at the ED and why did you come: Client presented to [facility] ED on 11/14/2021 after an intentional overdose on her medications. Client is medically cleared and seen for assessment today. Precipitating Factors Client denies current SI/HI and states that she regrets what transpired yesterday. Disposition BEHAVIOR: Client is laying down in hospital bed dressed in hospital gown when this show card writer arrives in person. Client is hesitant to engage with this show card writer, however when [facility] health careers instructor is present she engages. EYE CONTACT: Good MOOD: depressed, sad, tearful AFFECT: flat APPETITE: Client reports that she does not have an appetite. SLEEP(trouble falling/staying asleep: Client reports that even with her sleep regiment medications she averages about 3 hours of sleep a night. Plan Client will be discharged on pro-active safety plan which is complete with her partner Ba. [facility] will check-in with Ba throughout the weekend and will check-in with client on Thursday. Ba will lock up clients medications and administer them to her. [facility] health careers instructor will do referral for [facility] and pallative care. Intake paperwork is complete with [facility] and referral for case managment will be completed. Signature Clinician's Name/Title: Macey Pope [facility] Emergency Clinician
[2021-11-15] MEDS: Levothyroxine 125 MCG TAB PO (13:09)
--- NOTE | 2021-11-15 13:42 | W.PM.DS.N ---
Date of service: 11/15/21 Time of Service: 19:12 DS: Diagnosis Discharge Diagnosis (1) Intentional overdose: Status: Acute (2) Chronic anticoagulation: Status: Chronic (3) Discharge planning issues: Status: Acute Discharge Plan Disposition Patient Disposition: HOME Condition: Stable Discharge Details Reason For Visit: Overdose Admit Date/Time: 11/14/21 22:54 Admit Provider: Jonny Ellison Attending Provider: Jonny Ellison Primary Care Provider: Patrica Lopez [facility] Course Hospital Course: 41 yo F with history of mood disorder and AHDH, factor V Leiden with history of pulmonary embolism who was brought to the emergency room after intentional overdose.? Per EMS report, two hours prior to admission she took an unclear quantity of clonezepam, diphenhydramine, cetirizine, and warfarin.? She texted her and told him of her plans to end her life by taking pills.? He called the police, who went to the home and found her lethargic.? She eventually was awake enough in the emergency room to tell them she thinks she took 40 of each type of pill and cooperate by following some simple commands during the exam.? After about 2 hour in the emergency room, she stood up and indicated she was going to leave, was unsteady on her feet and slurring her speech.? She became combative when asking her to sit back down and IM ketamine was used for chemical sedation at about 2330.? When hospitalist evaluated her at 1:20am, she was sedated and did not respond to questioning, only weak responses to noxious stimuli.? She was breathing comfortably and on the monitor in the ICU.? She was pulling at her IV so soft restraints were placed for her safety. Her INR was only mildly elevated at 1.2. She is prescribed coumadin but has a h/o not taking it properly / as recommended. She returned to a normal level of consciousness. No metabolic, respiratory or cardiac consequences of her overdose identified. Again, it is unclear regarding the quantity of pills she ingested. [facility] mental health crisis evaluation ensued. A pro-active safety plan was implemented and she was discharged. She states she needed prescriptions for warfarin and lovenox. Follow up with PCP in 1-2 weeks. [facility] has a safety plan that includes checking in with patient on the Thursday following d/c. Home Meds and New Rx's Prescriptions: New warfarin 5 mg tablet 15 mg PO DAILY Qty: 30 0RF enoxaparin [Lovenox] 80 mg/0.8 mL syringe 80 mg subcut Q12H Qty: 24 0RF Continued sucralfate 1 gram tablet 1 g PO AC & HS Qty: 120 2RF Citracal Plus Bone Density 1 EACH tablet 1 ea PO BID cyproheptadine 4 MG tablet 4 mg PO HS Qty: 90 triamcinolone acetonide 0.1 % cream 1 applic Topical BID PRN (Reason: eczema) Qty: 60 1RF Rx Instructions: Apply to eczema methylphenidate HCl 20 mg tablet 20 mg PO TID MDD 60 mg Qty: 84 0RF epinephrine [EpiPen 2-Nino] 0.3 mg/0.3 mL auto-injector 0.3 mg IM ONCE Qty: 1 1RF fluticasone propionate [Flovent HFA] 220 mcg/actuation HFA aerosol inhaler 2 inh Inhalation BID Qty: 3 4RF levothyroxine 125 mcg tablet 125 mcg PO .AM Qty: 90 0RF omeprazole 40 mg capsule,delayed release(DR/EC) 40 mg PO DAILY Qty: 90 4RF clotrimazole-betamethasone 1-0.05 % cream 1 applic Topical BID PRN (Reason: rash) Qty: 45 1RF Rx Instructions: Apply to skin folds albuterol sulfate [ProAir HFA] 90 mcg/actuation HFA aerosol inhaler 2 puff Inhalation Q6H PRN MDD 6 puffs Qty: 3 4RF ondansetron HCl 8 mg tablet 8 mg PO BID PRN (Reason: nausea and vomiting) Qty: 20 0RF sumatriptan succinate 6 mg/0.5 mL pen injector 6 mg subcut ONCE MDD 12mg PRN (Reason: migraine headache) Qty: 90 1RF Rx Instructions: May repeat dose once in 1 hour if headache persists clonazepam 1 mg tablet 1 mg PO TID PRN (Reason: anxiety) Qty: 90 0RF naloxone [Narcan] 4 MG spray,non-aerosol 4 mg NS DAILY PRN PRNQty: 2 0RF Rx Instructions: One spray (4mg) intranasally into one nostril. Use a new nasal spray for subsequent dose in alternate nostril if needed. May repeat once after initial dose in 2-3 minutes. polyethylene glycol 3350 [Miralax] 17 gram Powder In Packet 17 g PO DAILY PRN ondansetron HCl [Zofran] 4 mg Tablet 4 mg PO DAILY PRN hydrocodone-acetaminophen 7.5-325 mg tablet 1 tab PO BID PRN Zyrtec 10 mg Capsule 10 mg PO DAILY topiramate [Topamax] 200 mg tablet 200 mg PO BID Rx Instructions: Brand name medically necessary acidophilus-pectin, citrus 25 million cell -100 mg tablet 1 tab PO DAILY albuterol sulfate 2.5 mg /3 mL (0.083 %) Solution For Nebulization 2.5 mg INHALATION TID ascorbic acid (vitamin C) [Vitamin C] 500 mg Tablet 500 mg PO BID Qty: 60 0RF bdiplneoyx-wheguapxebpeu-[id number] [Fioricet] 50-300-40 mg capsule 1 cap PO Q4H PRNQty: 60 0RF Rx Instructions: Take 1-2 tabs as needed for WILLETT, not to exceed 6 tabs in 24 hours cholecalciferol (vitamin D3) [Vitamin D3] 50 mcg (2,000 unit) capsule 50 mcg PO DAILY Qty: 30 0RF melatonin 3 mg Tablet 6 mg PO HS Qty: 30 0RF prochlorperazine maleate [Compazine] 10 mg tablet 10 mg PO TID PRNQty: 60 0RF promethazine 25 mg tablet 25 mg PO TID PRNQty: 60 0RF diphenhydramine HCl [Benadryl Allergy] 25 mg tablet 100 mg PO HS Label Comments: Take 4 tablet by mouth at bedtime Discontinued warfarin 10 mg tablet 15 mg PO DAILY enoxaparin [Lovenox] 80 mg/0.8 mL syringe 80 mg subcut BID No Action (DME) Space Chamber Plus 1 EACH spacer 1 ea Miscellaneous Q4H PRN Qty: 1 0RF Discharge Instructions Activity:: Activity as Tolerated Equipment/Supplies:: No Equipment Needed Diet:: Resume usual diet Discharge Orders Discharge Orders: Discharge Order (Routine); Ordered 11/15/21 Ordered By: Bry Murillo DS: Summary Time Spent with Patient providing and/or coordinating discharge services: Greater than 30 minutes Status at Discharge Functional status at discharge: independent ambulation Overall status at discharge: patient is progressing back to baseline Mental Status: mental status grossly normal Speech and Movement: speech and movement normal Mood: irritable mood Affect: anxious affect Exam Narrative Exam Narrative: GEN: Lying in bed. A&O x 3 LUNGS: CTAB with normal effort CV: RRR with no murmurs ABD: +BS, soft, NT/ND EXT: no cyanosis, clubbing, or edema MSK: No joint redness or swelling NEURO: CN 2-12 grossly intact. Normal movement of 4 extremities. Normal speech and coordination SKIN: No rashs or open wounds. several dark bruises on abdomen including ~5x10cm in inferior pannus PSYCH: affect is anxious and somewhat blunted. Psych Mental Status: mental status grossly normal Speech and Movement: speech and movement normal Mood: irritable mood Affect: anxious affect DS: Data Vitals/I&O Vitals and I&O: Vital Signs Temperature 36.5 C 11/15/21 04:00 Temperature Source Temporal Artery Scan 11/15/21 04:00 Pulse 67 11/15/21 10:01 Pulse 71 11/15/21 10:50 Respiratory Rate 15 11/15/21 10:50 Respiratory Effort Non-Labored 11/15/21 04:00 Respiratory Depth Normal 11/15/21 04:00 Respiratory Pattern Normal 11/15/21 04:00 Blood Pressure 133/96 H 11/15/21 10:01 Blood Pressure Mean 104 11/15/21 10:01 Blood Pressure Position Supine 11/15/21 04:00 Pulse Oximetry 95 11/15/21 09:20 Respiratory End-tidal CO2 40 11/15/21 04:01 Oxygen Delivery Method Room Air 11/15/21 07:35 Oxygen Flow Rate 0 11/15/21 07:35 Pain Level 0 11/15/21 04:00 Intake & Output 11/14/21 11/15/21 11/15/21 23:59 11:59 23:59 Intake Total 1120 / 1120 Output Total 1000 / 1350 350 / 1350 Balance 120 / -230 -350 / -230 Weight 81.4 kg 80 kg Intake: IV 1120 / 1120 Output: Urine 950 / 1300 350 / 1300 Emesis 50 / 50 Other: Urine Color Straw Straw Urine Appearance Clear Urine Odor Foul Foul Voiding Methods Bedside Commode Bedside Commode Data Completed and Pending Labs on day of discharge: Labs from last 24 hours 11/15/21 11/15/2122 17:30 10:00 10:00 WBC 7.02 RBC 4.64 Hgb 13.1 Hct 39.6 MCV 85 MCH 28.2 MCHC 33.1 RDW 14.2 Plt Count 231 MPV 10.9 Immature Gran % 0.4 Neutrophils % 64.1 Lymphocytes % 21.7 Monocytes % 6.4 Eosinophils % 6.8 Basophils % 0.6 Nucleated RBC % 0.0 Absolute Neutrophils 4.50 Absolute Lymphocytes 1.52 Absolute Monocytes 0.45 Absolute Eosinophils 0.48 Absolute Basophils 0.04 PT Pending 12.1 H INR Pending 1.2 H APTT VBG pH VBG pCO2 VBG pO2 VBG HCO3 VBG Total CO2 VBG O2 Saturation VBG Base Excess VBG Lactate Sodium Potassium Chloride Carbon Dioxide Anion Gap BUN Creatinine Estimated GFR/1.73 m2 Glucose Calcium Magnesium Total Bilirubin AST ALT Alkaline Phosphatase Total Protein Albumin Salicylates Urine Opiates Screen Urine Methadone Screen Acetaminophen Ur Barbiturates Screen Ur Tricyclics Screen Ur Amphetamines Screen U Benzodiazepines Scrn Urine Cocaine Screen Ur THC Screen Ethyl Alcohol COVID-19 Source SARS-CoV-2 (PCR) 11/15/21 11/15/21 11/14/21 10:00 01:50 22:40 WBC RBC Hgb Hct MCV MCH MCHC RDW Plt Count MPV Immature Gran % Neutrophils % Lymphocytes % Monocytes % Eosinophils % Basophils % Nucleated RBC % Absolute Neutrophils Absolute Lymphocytes Absolute Monocytes Absolute Eosinophils Absolute Basophils PT 12.1 H INR 1.2 H APTT VBG pH VBG pCO2 VBG pO2 VBG HCO3 VBG Total CO2 VBG O2 Saturation VBG Base Excess VBG Lactate Sodium 140 Potassium 4.0 Chloride 106 Carbon Dioxide 27.8 Anion Gap 6.2 BUN 11 Creatinine 1.0 Estimated GFR/1.73 m2 >= 60.00 Glucose 99 Calcium 8.6 Magnesium Total Bilirubin 0.6 AST 16 ALT 25 Alkaline Phosphatase 49 Total Protein 7.2 Albumin 4.1 Salicylates Urine Opiates Screen Positive A Urine Methadone Screen Negative Acetaminophen Ur Barbiturates Screen Negative Ur Tricyclics Screen Negative Ur Amphetamines Screen Negative U Benzodiazepines Scrn Negative Urine Cocaine Screen Positive A Ur THC Screen Positive A Ethyl Alcohol COVID-19 Source SARS-CoV-2 (PCR) 11/14/21 11/14/21 11/14/21 22:03 22:03 22:03 WBC 10.34 RBC 4.43 Hgb 12.7 Hct 37.2 MCV 84 MCH 28.7 MCHC 34.1 RDW 13.8 Plt Count 232 MPV 10.9 Immature Gran % 0.4 Neutrophils % 73.8 Lymphocytes % 17.2 Monocytes % 4.8 Eosinophils % 3.3 Basophils % 0.5 Nucleated RBC % 0.0 Absolute Neutrophils 7.63 H Absolute Lymphocytes 1.78 Absolute Monocytes 0.50 Absolute Eosinophils 0.34 Absolute Basophils 0.05 PT 12.5 H INR 1.3 H APTT 26.0 VBG pH 7.37 VBG pCO2 48 VBG pO2 30 VBG HCO3 27 VBG Total CO2 25 VBG O2 Saturation 58 VBG Base Excess 2 VBG Lactate Sodium Potassium Chloride Carbon Dioxide Anion Gap BUN Creatinine Estimated GFR/1.73 m2 Glucose Calcium Magnesium Total Bilirubin AST ALT Alkaline Phosphatase Total Protein Albumin Salicylates Urine Opiates Screen Urine Methadone Screen Acetaminophen Ur Barbiturates Screen Ur Tricyclics Screen Ur Amphetamines Screen U Benzodiazepines Scrn Urine Cocaine Screen Ur THC Screen Ethyl Alcohol COVID-19 Source SARS-CoV-2 (PCR) 11/14/21 11/14/21 11/14/21 22:03 22:03 22:03 WBC RBC Hgb Hct MCV MCH MCHC RDW Plt Count MPV Immature Gran % Neutrophils % Lymphocytes % Monocytes % Eosinophils % Basophils % Nucleated RBC % Absolute Neutrophils Absolute Lymphocytes Absolute Monocytes Absolute Eosinophils Absolute Basophils PT INR APTT VBG pH VBG pCO2 VBG pO2 VBG HCO3 VBG Total CO2 VBG O2 Saturation VBG Base Excess VBG Lactate 0.9 Sodium 139 Potassium 3.1 L Chloride 104 Carbon Dioxide 28.0 Anion Gap 7.0 BUN 11 Creatinine 1.0 Estimated GFR/1.73 m2 >= 60.00 Glucose 106 Calcium 8.5 Magnesium 1.9 Total Bilirubin 0.7 AST 12 L ALT 27 Alkaline Phosphatase 48 Total Protein 7.0 Albumin 4.0 Salicylates < 2.8 Urine Opiates Screen Urine Methadone Screen Acetaminophen < 2 Ur Barbiturates Screen Ur Tricyclics Screen Ur Amphetamines Screen U Benzodiazepines Scrn Urine Cocaine Screen Ur THC Screen Ethyl Alcohol < 3.0 COVID-19 Source SARS-CoV-2 (PCR) 11/14/21 22:03 WBC RBC Hgb Hct MCV MCH MCHC RDW Plt Count MPV Immature Gran % Neutrophils % Lymphocytes % Monocytes % Eosinophils % Basophils % Nucleated RBC % Absolute Neutrophils Absolute Lymphocytes Absolute Monocytes Absolute Eosinophils Absolute Basophils PT INR APTT VBG pH VBG pCO2 VBG pO2 VBG HCO3 VBG Total CO2 VBG O2 Saturation VBG Base Excess VBG Lactate Sodium Potassium Chloride Carbon Dioxide Anion Gap BUN Creatinine Estimated GFR/1.73 m2 Glucose Calcium Magnesium Total Bilirubin AST ALT Alkaline Phosphatase Total Protein Albumin Salicylates Urine Opiates Screen Urine Methadone Screen Acetaminophen Ur Barbiturates Screen Ur Tricyclics Screen Ur Amphetamines Screen U Benzodiazepines Scrn Urine Cocaine Screen Ur THC Screen Ethyl Alcohol COVID-19 Source Nasal/Nares SARS-CoV-2 (PCR) Negative PFSH All Active Problems Discharge planning issues (Acute) DVT prophylaxis (Acute) Intentional overdose (Acute) Intractable nausea and vomiting (Acute) Enterocolitis (Acute) Gastroesophagitis (Acute) Leukocytosis, unspecified (Acute) Intractable nausea and vomiting (Acute) Chronic anticoagulation (Chronic) On coumadin Cyclic vomiting syndrome (Acute) Panic disorder (Chronic 03/21/16) Chronic back pain greater than 3 months duration (Chronic 12/29/14) ADHD (attention deficit hyperactivity disorder), 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) B12 deficiency (Chronic) Medical History Acute deep vein thrombosis (DVT) of left lower extremity Acute renal insufficiency Asthma (11/08/12) Candidiasis Cellulitis of left leg Chronic anticoagulation Cyst of fallopian tube Depression Factor V Leiden mutation GERD (gastroesophageal reflux disease) Hematuria History of DVT (deep vein thrombosis) Hypothyroidism Iatrogenic pulmonary embolism and infarction Intractable vomiting with nausea Left buttock abscess Left lower quadrant pain (01/27/12) Migraine headache Nephrolithiasis Orbital cellulitis on left Other enthesopathies, not elsewhere classified (03/21/16) Neck Preseptal cellulitis of left eye Recurrent deep vein thrombosis (DVT) Right lower quadrant abdominal pain inflamed/ruptured fallopian tube on the right Thrombosis of arteries of lower extremity Vaginal candidiasis Surgical History Abdominal hysterectomy (~2009) 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) Arthroplasty of knee (~1999) left Bilateral salpingectomy with oophorectomy (~2008) Cervical Conization/LEEP LEEP 2003 [facility] BX 2003 Cholecystectomy History of arthroscopy of knee S/P appendectomy (12/24/17) Dr Veliz - Lap appy and lap excision of R fallopian tube remnant Status post cholecystectomy Status post LEEP (loop electrosurgical excision procedure) of cervix THUMB RECONSTRUCTION left; in childhood Social History Smoking/Tobacco Use Status: Never Smoking risk assessment performed?: Yes Alcohol Intake: former Drug use: Daily Substance use type: marijuana Current gender identity: female Do you feel safe at home: Yes Do you feel safe in your relationship?: Yes Additional Social history: Patient is and with one child.
--- NOTE | 2021-11-15 14:10 | NUR.NOTE ---
[facility] order cancelled per Dr. Murillo Nursing Note:
[2021-11-15] MEDS: Methylphenidate 10 MG TAB 20 MG PO ×2 (14:27→17:16)
[2021-11-15] MEDS: LORazepam 1 MG TAB PO (17:16)
[2021-11-15 18:11] LABS: INR 1.4 (0.9-1.1); Prothrombin Time 14.2 sec (9.3-11.0)
== END 2021-11-15 19:14 | disposition home or self-care (01) | DRG 918 ==
LOC: ER 22:54 → ICU 11-15 00:22
PROVIDERS: Family Medicine; Admitting Provider Family Medicine; Emergency Provider Emergency Medicine; PCP Family Medicine; Visit Provider Family Medicine
DX: T42.4X2A Poisoning by benzodiazepines, intentional self-harm, initial encounter (principal); D68.51 Activated protein C resistance; T45.0X2A Poisoning by antiallergic and antiemetic drugs, intentional self-harm, initial encounter; T45.512A Poisoning by anticoagulants, intentional self-harm, initial encounter; R53.83 Other fatigue; Z86.711 Personal history of pulmonary embolism; F39 Unspecified mood [affective] disorder; Z79.01 Long term (current) use of anticoagulants; F41.0 Panic disorder [episodic paroxysmal anxiety]; F90.9 Attention-deficit hyperactivity disorder, unspecified type; E53.8 Deficiency of other specified B group vitamins; M54.9 Dorsalgia, unspecified; G89.29 Other chronic pain; F12.19 Cannabis abuse with unspecified cannabis-induced disorder; E03.9 Hypothyroidism, unspecified; K21.9 Gastro-esophageal reflux disease without esophagitis; R47.81 Slurred speech; R26.81 Unsteadiness on feet
CPT/HCPCS: 36415; 80053; 80307; 82805; 87635; 93005; 96361; 96365; 96372; 99285; 80320; 80329; 83605; 83735; 85025; 85610; 85730; 93010; 99239; J3480; J3490

== ENCOUNTER 2021-11-22 09:12 | Outpatient (CLI) | payer MEDICARE, MEDICAID, SELFPAY ==
[2021-11-22 14:17] LABS: Prothrombin Time > 83.4 sec (9.3-11.0)
[2021-11-22 14:19] LABS: INR > 8.8 (0.9-1.1)
[2021-11-23 13:27] LABS: Factor X Chromogenic Activity 8 % (60 - 140)
== END 2021-11-22 09:13 | disposition home or self-care (01) ==
LOC: LBO 09:25
PROVIDERS: PCP Family Medicine; Visit Provider Internal Medicine
DX: D68.59 Other primary thrombophilia (principal)
CPT/HCPCS: 36415; 85260; 85610

== ENCOUNTER 2021-11-25 11:36 | Outpatient (CLI) | payer MEDICARE, MEDICAID, SELFPAY ==
[2021-11-25 14:43] LABS: INR 3.4 (0.9-1.1); Prothrombin Time 31.5 sec (9.3-11.0)
[2021-11-27 13:04] LABS: Factor X Chromogenic Activity 18 % (60 - 140)
== END 2021-11-25 11:37 | disposition home or self-care (01) ==
LOC: LBO 11:38
PROVIDERS: PCP Family Medicine; Visit Provider Internal Medicine
DX: D68.59 Other primary thrombophilia (principal)
CPT/HCPCS: 36415; 85260; 85610

== ENCOUNTER 2022-01-02 18:18 | Outpatient (REF) | payer MEDICARE, MEDICAID, SELFPAY ==
[2022-01-02 12:42] LABS: *AMPHETAMINES SCREEN URINE Negative (Negative); *BARBITURATES SCREEN URINE Negative (Negative); *BENZODIAZEPINES SCREEN URINE Negative (Negative); Cannabinoids THC Positive (Negative); Cocaine Screen,Urine Negative (Negative); METHADONE URINE SCREEN Negative (Negative); OPIATES URINE SCREEN Negative (Negative)
[2022-01-02 12:43] LABS: Tricyclic Antidepressants Positive (Negative)
== END 2022-01-02 18:19 | disposition home or self-care (01) ==
LOC: NCHCN 18:18
PROVIDERS: PCP Family Medicine; Visit Provider Nurse Practitioner Psychiatric/Mental Health
DX: F90.0 Attention-deficit hyperactivity disorder, predominantly inattentive type (principal)
CPT/HCPCS: 80307

== ENCOUNTER 2022-01-15 14:16 | Outpatient (REF) | payer MEDICARE, MEDICAID, SELFPAY ==
[2022-01-15 17:04] LABS: *AMPHETAMINES SCREEN URINE Negative (Negative); *BARBITURATES SCREEN URINE Negative (Negative); *BENZODIAZEPINES SCREEN URINE Negative (Negative); Cannabinoids THC Positive (Negative); Cocaine Screen,Urine Negative (Negative); METHADONE URINE SCREEN Negative (Negative); OPIATES URINE SCREEN Negative (Negative)
[2022-01-15 17:21] LABS: Tricyclic Antidepressants Negative (Negative)
== END 2022-01-15 14:17 | disposition home or self-care (01) ==
LOC: NCHCN 14:16
PROVIDERS: PCP Family Medicine; Visit Provider Nurse Practitioner Psychiatric/Mental Health
DX: F90.0 Attention-deficit hyperactivity disorder, predominantly inattentive type (principal)
CPT/HCPCS: 80307

== ENCOUNTER 2022-01-22 21:21 | Emergency (ER) | payer MEDICARE, MEDICAID, SELFPAY ==
[2022-01-22] VITALS (19 sets, daily range): BP systolic 142–164; BP diastolic 90–108; PULSE 72–96; RESP 7–27; TEMP 36.7; O2SAT 97–100
--- NOTE | 2022-01-22 21:15 | DI.CT_ITS ---
Exam(s) CT HEAD WO EXAM: CT HEAD WO CLINICAL HISTORY: Headache on Warfrin. TECHNIQUE: Imaging Protocol: Axial computed tomography images with coronal and sagittal reformatted images were created and reviewed COMPARISON: CT CT HEAD WO from 05/03/2021 FINDINGS: The ventricular system is normal in appearance. No evidence of acute intracranial hemorrhage, mass effect, or midline shift. The orbital structures are unremarkable. The temporal bone structures appear intact. Calvarium: Normal. Visualized Paranasal sinuses/Mastoids: Clear. IMPRESSION: Normal cranial CT. RADIATION DOSE DELIVERED: 732.6mGy.cm Total DLP 732.6mGy.cm Total DLP !Error CTDIvol DATA REPOSITORY: All CT scans at this facility are submitted to the National Radiology Data Registry (NRDR) Dose Index Registry (DIR) with the [employer] [place] [employer] ([employer]). RADIATION OPTIMIZATION: All CT scans at this facility use at least one of these dose optimization te chniques: automated exposure control; mA and/or kV adjustment per patient size (includes targeted exa ms where dose is matched to clinical indication); or iterative reconstruction.
[2022-01-22 21:58] LABS: Bilirubin Small (Negative); Blood Large (Negative); Glucose Negative (Negative); Ketones Trace mg/dL (Negative); Leukocyte Esterase Negative (Negative); Nitrite Negative (Negative); Specific Gravity 1.025 (1.005-1.025)
[2022-01-22 21:59] LABS: Clarity Cloudy (Clear)
[2022-01-22 22:00] LABS: RBC >50 HPF (0-2)
[2022-01-22 22:02] LABS: C & S Indicated? Yes
[2022-01-22 22:09] LABS: Abs Immature Grans 0.02 10^3/uL (0.0-0.06); Absolute Basophil Count 0.04 10^3/uL (0.0-0.2); Absolute Eosinophil Count 0.35 10^3/uL (0.0-0.7); Absolute Lymphocyte Count 2.44 10^3/uL (1.2-3.4); Absolute Monocyte Count 0.73 10^3/uL (0.1-0.8); Basophils % 0.5; Eosinophils % 3.9; HCT 36.1 % (36.0-46.0); HGB 12.6 g/dL (11.2-15.7); Immature Grans % 0.2; Lymphocytes % 27.5; MCH 29.3 pg (27.0-33.0); MCHC 34.9 % (32.0-36.0); MCV 84 fL (80-95); MPV 10.9 fL (8.0-11.0); Monocytes % 8.2; Neutrophils % 59.7; Platelet Count 234 10^3/uL (130-400); RDW 14.1 % (11.7-14.6); RDW-SD 43.2 fL; WBC 8.88 10^3/uL (4.4-10.8)
--- NOTE | 2022-01-22 22:15 | DI.VRAD_ITS ---
PROCEDURE INFORMATION: Exam: CT Head Without Contrast Exam date and time: 01/22/2022 10:05 PM Age: 42 years old Clinical indication: Other: Headache on warfrin TECHNIQUE: Imaging protocol: Computed tomography of the head without contrast. COMPARISON: CT HEAD WO 05/03/2021 9:18 AM FINDINGS: Brain: Mild volume loss.No hemorrhage. Unremarkable white matter. No mass effect. Cerebral ventricles: No ventriculomegaly. Paranasal sinuses: Mild mucosal thickening. No fluid levels. Mastoid air cells: Visualized mastoid air cells are well aerated. Bones/joints: Unremarkable. No acute fracture. Soft tissues: Unremarkable. IMPRESSION: No acute intracranial abnormality. Dictated and Authenticated by: Samy Gifford MD. Ordering:MISAEL Ngo MD
[2022-01-22 22:20] LABS: INR 3.1 (0.9-1.1); PTT Activated 36.9 sec (21.0-27.5)
[2022-01-22 22:21] LABS: ALT 21 U/L (14-59); AST 15 U/L (15-37); Albumin 4.6 g/dL (3.4-5.0); Alkaline Phosphatase 48 U/L (46-116); Anion Gap 12.1 mmol/L (3-11); BUN 14 mg/dL (7-18); Bilirubin, Total 0.3 mg/dL (0.2-1.0); CO2 23.9 mmol/L (21.0-32.0); Calcium 8.9 mg/dL (8.5-10.1); Chloride 101 mmol/L (98-107); Estimated GFR 71.69 (mL/min/1.73m2); Glucose 86 mg/dL (74-106); Potassium 3.2 mmol/L (3.5-5.1); Sodium 137 mmol/L (136-145); Total Protein 7.8 g/dL (6.4-8.2)
[2022-01-22] MEDS: Normal Saline 1,000 ML 1000 ML IV (22:40)
[2022-01-22] MEDS: diphenhydrAMINE 50 MG/ML VIAL 12.5 MG IVP (22:45)
[2022-01-22] MEDS: diazePAM 10 MG/2 ML SYR 2.5 MG IVP (22:48)
--- NOTE | 2022-01-22 23:12 | ED.GENADUL_ITS ---
Discharge Plan Disposition Patient Disposition: HOME Condition: Stable Discharge Details Clinical Impression: Hematuria, Headache, Nausea and vomiting Primary Care Provider: Patrica Lopez ED Provider: Sunny Hernandez Home Meds and New Rx's Prescriptions: Continued sucralfate 1 gram tablet 1 g PO AC & HS Qty: 120 2RF Citracal Plus Bone Density 1 EACH tablet 1 ea PO BID cyproheptadine 4 MG tablet 4 mg PO HS Qty: 90 triamcinolone acetonide 0.1 % cream 1 applic Topical BID PRN (Reason: eczema) Qty: 60 1RF Rx Instructions: Apply to eczema methylphenidate HCl 20 mg tablet 20 mg PO TID MDD 60 mg Qty: 84 0RF epinephrine [EpiPen 2-Nino] 0.3 mg/0.3 mL auto-injector 0.3 mg IM ONCE Qty: 1 1RF fluticasone propionate [Flovent HFA] 220 mcg/actuation HFA aerosol inhaler 2 inh Inhalation BID Qty: 3 4RF levothyroxine 125 mcg tablet 125 mcg PO .AM Qty: 90 0RF omeprazole 40 mg capsule,delayed release(DR/EC) 40 mg PO DAILY Qty: 90 4RF clotrimazole-betamethasone 1-0.05 % cream 1 applic Topical BID PRN (Reason: rash) Qty: 45 1RF Rx Instructions: Apply to skin folds albuterol sulfate [ProAir HFA] 90 mcg/actuation HFA aerosol inhaler 2 puff Inhalation Q6H PRN MDD 6 puffs Qty: 3 4RF ondansetron HCl 8 mg tablet 8 mg PO BID PRN (Reason: nausea and vomiting) Qty: 20 0RF sumatriptan succinate 6 mg/0.5 mL pen injector 6 mg subcut ONCE MDD 12mg PRN (Reason: migraine headache) Qty: 90 1RF Rx Instructions: May repeat dose once in 1 hour if headache persists clonazepam 1 mg tablet 1 mg PO TID PRN (Reason: anxiety) Qty: 90 0RF (DME) Space Chamber Plus 1 EACH spacer 1 ea Miscellaneous Q4H PRN Qty: 1 0RF naloxone [Narcan] 4 MG spray,non-aerosol 4 mg NS DAILY PRN PRNQty: 2 0RF Rx Instructions: One spray (4mg) intranasally into one nostril. Use a new nasal spray for subsequent dose in alternate nostril if needed. May repeat once after initial dose in 2-3 minutes. polyethylene glycol 3350 [Miralax] 17 gram Powder In Packet 17 g PO DAILY PRN ondansetron HCl [Zofran] 4 mg Tablet 4 mg PO DAILY PRN hydrocodone-acetaminophen 7.5-325 mg tablet 1 tab PO BID PRN Zyrtec 10 mg Capsule 10 mg PO DAILY topiramate [Topamax] 200 mg tablet 400 mg PO DAILY Rx Instructions: Brand name medically necessary acidophilus-pectin, citrus 25 million cell -100 mg tablet 1 tab PO DAILY albuterol sulfate 2.5 mg /3 mL (0.083 %) Solution For Nebulization 2.5 mg INHALATION TID ascorbic acid (vitamin C) [Vitamin C] 500 mg Tablet 500 mg PO BID Qty: 60 0RF [id number]-neph [Fioricet] 50-300-40 mg capsule 1 cap PO Q4H PRNQty: 60 0RF Rx Instructions: Take 1-2 tabs as needed for WILLETT, not to exceed 6 tabs in 24 hours cholecalciferol (vitamin D3) [Vitamin D3] 50 mcg (2,000 unit) capsule 50 mcg PO DAILY Qty: 30 0RF melatonin 3 mg Tablet 6 mg PO HS Qty: 30 0RF prochlorperazine maleate [Compazine] 10 mg tablet 10 mg PO TID PRNQty: 60 0RF promethazine 25 mg tablet 25 mg PO TID PRNQty: 60 0RF warfarin 5 mg tablet 15 mg PO DAILY Qty: 30 0RF enoxaparin [Lovenox] 80 mg/0.8 mL syringe 80 mg subcut Q12H Qty: 24 0RF diphenhydramine HCl [Benadryl Allergy] 25 mg tablet 100 mg PO HS Label Comments: Take 4 tablet by mouth at bedtime budesonide-formoterol [Symbicort] 160-4.5 mcg/actuation HFA aerosol inhaler INHALATION Label Comments: INHALE TWO PUFFS BY MOUTH TWICE A DAY AND NEEDED Discharge Instructions Instructions: Acute Nausea and Vomiting (ED), Hematuria (ED) Additional Instructions: Please drink small amounts of fluid often in order to stay hydrated. Please follow-up with your primary care physician. Call tomorrow to schedule a follow-up appointment. Your INR today was 3.1. 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 Please follow-up with urology. Call to schedule an appointment. Return to the ER immediately for any worsening or new concerning symptoms. Referrals: [facility] [Provider Group] Patrica Lopez [Primary Care Provider] - Discharge Data Discharge Date/Time-TO BE ENTERED AT DEPARTURE: 01/23/22 01:46 Medical Decision Making <Huber Nam NP - Last Filed: 01/23/22 22:54> Patient presenting to the emergency department via request of [facility] hematology for chief complaint of hematuria and headache. They requested that labs and head CT imaging were performed due to patient's history of abnormal INRs. Patient stat es that earlier in the day she started having hematuria that became gross hematuria. Patient denies any injury or trauma, fever chills, or other symptoms. After a couple episodes of hematuria patient started having migraine headache which she states that she typically gets. Patient endorses that this is a typical migraine pattern for her. She does also state some anxiety in regards to her bleeding. Physical exam is unremarkable for any focal neurological deficits, no CVA tenderness, and otherwise benign exam. We will plan on checking labs and imaging. We will treat patient's nausea and headache Reviewed labs and patient has no significant anemia, INR is 3.1, CMP does show elevated anion gap of 12.1, potassium of 3.2, otherwise unremarkable CMP. Urinalysis does show elevated urine protein, urine ketones, and large amount of blood in her urine with greater than 50 RBCs. No signs of infectious process with negative nitrates leukocyte esterase. Reviewed head CT imaging and radio logist interpretation that shows no acute findings. Will recontact [facility] hematology to discuss case. Pending consultation with [facility] did discuss findings with patient that were reassuring. Patient endorses a lot of anxiety and after discussion of reassuring values she continually brought up chronic conditions that are already being treated with no worrisome signs such as hypoxia, tachycardia, or l aboratory abnormalities. We will plan on reassessing patient once migraine medications are all completed. Imaging Data Radiologic Study: Attestation: I personally reviewed and interpreted this imaging study as follows: Radiologist's impression: FINDINGS: Brain: Mild volume loss.No hemorrhage. Unremarkable white matter. No mass effect. Cerebral ventricles: No ventriculomegaly. Paranasal sinuses: Mild mucosal thickening. No fluid levels. Mastoid air cells: Visualized mastoid air cells are well aerated. Bones/joints: Unremarkable. No acute fracture. Soft tissues: Unremarkable. IMPRESSION: No acute intracranial abnormality. <Liliana Ku DO - Last Filed: 01/24/22 23:01> SHAY Nam Patient presenting to the emergency department via request of [facility] hematology for chief complaint of hematuria and headache. They requested that labs and head CT imaging were performed due to patient's history of abnormal INRs. Patient states that earlier in the day she started having hematuria that became gross hematuria. Patient denies any injury or trauma, fever chills, or other symptoms. After a couple episodes of hematuria patient started having migraine headache which she states that she typically gets. Patient endorses that this is a typical migraine pattern for her. She does also state some anxiety in regards to her bleeding. Physical exam is unremarkable for any focal neurological deficits, no CVA tenderness, and otherwise benign exam. We will plan on checking labs and imaging. We will treat patient's nausea and headache Reviewed labs and patient has no significant anemia, INR is 3.1, CMP does show elevated anion gap of 12.1, potassium of 3.2, otherwise unremarkable CMP. Urinalysis does show elevated urine protein, urine ketones, and large amount of blood in her urine with greater than 50 RBCs. No signs of infectious process with negative nitrates leukocyte esterase. Reviewed head CT imaging and radiologist interpretation that shows no acute findings. Will recontact [facility] hematology to discuss case. Pending consultation with [facility] did discuss findings with patient that were reassuring. Patient endorses a lot of anxiety and after discussion of reassuring values she continually brought up chronic conditions that are already being treated with no worrisome signs such as hypoxia, tachycardia, or laboratory abnormalities. We will plan on reassessing patient once migraine medications are all completed. Dr. Ku 12am --please see Krish Nam's note for initial presentation, exam and plan. Case endorsed to follow-up with [facility]. Discussed with [facility] --they state that if patient's symptoms have not improved, consider admission. Patient reassessed and she is still complaining of headache and nausea. She is hemodynamically stable. Her hemoglobin is within normal limits. Her INR is therapeutic at 3.1. Her urinalysis notes large blood but she previously has been noted to have hematuria. Case discussed with hospitalist who does not see an indication for admission as her labs and vitals are reassuring. Patient has been diagnosed with cyclical vomiting in the past but states she has cut back her daily marijuana use. We will give a dose of IV Dilaudid, IV Compazine and capsaicin and reassess with p.o. challenge. 0100 -- Case endorsed to Dr. Hernandez to f/u on response to meds and if improved, will discharge to home. Medical Records Medical records reviewed: Yes I reviewed the patient's medical records. Lab Data Lab results reviewed: Yes I reviewed the patient's lab results. Labs: 01/22/22 21:48 Urine - Reflex from Ua Urine Culture - Preliminary Gram Negative Ti Laboratory Tests Range/Units 01/22/22 01/22/22 01/22/22 21:48 22:00 22:00 WBC (4.4-10.8) 10^3/uL 8.88 RBC (3.93-5.22) 10^6/uL 4.30 Hgb (11.2-15.7) g/dL 12.6 Hct (36.0-46.0) % 36.1 MCV (80-95) fL 84 MCH (27.0-33.0) pg 29.3 MCHC (32.0-36.0) % 34.9 RDW (11.7-14.6) % 14.1 Plt Count (130-400) 10^3/uL 234 MPV (8.0-11.0) fL 10.9 Immature Gran % 0.2 Neutrophils % 59.7 Lymphocytes % 27.5 Monocytes % 8.2 Eosinophils % 3.9 Basophils % 0.5 Nucleated RBC % (0.0-0.3) % 0.0 Absolute Neutrophils (1.2-6.7) 10^3/uL 5.30 Absolute Lymphocytes (1.2-3.4) 10^3/uL 2.44 Absolute Monocytes (0.1-0.8) 10^3/uL 0.73 Absolute Eosinophils (0.0-0.7) 10^3/uL 0.35 Absolute Basophils (0.0-0.2) 10^3/uL 0.04 PT (9.3-11.0) sec INR (0.9-1.1) APTT (21.0-27.5) sec Sodium (136-145) mmol/L 137 Potassium (3.5-5.1) mmol/L 3.2 L Chloride (98-107) mmol/L 101 Carbon Dioxide (21.0-32.0) mmol/L 23.9 Anion Gap (3-11) mmol/L 12.1 H BUN (7-18) mg/dL 14 Creatinine (0.55-1.02) mg/dL 1.0 Est GFR (CKD-EPI 2020) (mL/min/1.73m2) 71.69 Glucose (74-106) mg/dL 86 Calcium (8.5-10.1) mg/dL 8.9 Total Bilirubin (0.2-1.0) mg/dL 0.3 AST (15-37) U/L 15 ALT (14-59) U/L 21 Alkaline Phosphatase (46-116) U/L 48 Total Protein (6.4-8.2) g/dL 7.8 Albumin (3.4-5.0) g/dL 4.6 Urine Color (Yellow) [place] Urine Clarity (Clear) Cloudy Urine pH (5-8) 6.0 Ur Specific [place] (1.005-1.025) 1.025 Urine Protein (Negative) mg/dL 100 H Urine Ketones (Negative) mg/dL Trace H Urine Blood (Negative) Large H Urine Nitrite (Negative) Negative Urine Bilirubin (Negative) Small H Urine Urobilinogen (Up TO 0.2) EU/dL 1.0 H Ur Leukocyte Esterase (Negative) Negative Urine RBC (0-2) HPF >50 H Urine WBC (0-5) HPF Ur Epithelial Cells (Negative) HPF Urine Crystals Not Applicable Urine Bacteria (Negative) HPF Urine Mucus Not Applicable Ur Culture Indicated? Yes Urine Glucose (Negative) mg/dL Negative COVID-19 Source SARS-CoV-2 (PCR) (Negative) Range/Units 01/22/22 01/22/22 22:00 23:34 WBC (4.4-10.8) 10^3/uL RBC (3.93-5.22) 10^6/uL Hgb (11.2-15.7) g/dL Hct (36.0-46.0) % MCV (80-95) fL MCH (27.0-33.0) pg MCHC (32.0-36.0) % RDW (11.7-14.6) % Plt Count (130-400) 10^3/uL MPV (8.0-11.0) fL Immature Gran % Neutrophils % Lymphocytes % Monocytes % Eosinophils % Basophils % Nucleated RBC % (0.0-0.3) % Absolute Neutrophils (1.2-6.7) 10^3/uL Absolute Lymphocytes (1.2-3.4) 10^3/uL Absolute Monocytes (0.1-0.8) 10^3/uL Absolute Eosinophils (0.0-0.7) 10^3/uL Absolute Basophils (0.0-0.2) 10^3/uL PT (9.3-11.0) sec 29.0 H INR (0.9-1.1) 3.1 H APTT (21.0-27.5) sec 36.9 H Sodium (136-145) mmol/L Potassium (3.5-5.1) mmol/L Chloride (98-107) mmol/L Carbon Dioxide (21.0-32.0) mmol/L Anion Gap (3-11) mmol/L BUN (7-18) mg/dL Creatinine (0.55-1.02) mg/dL Est GFR (CKD-EPI 2020) (mL/min/1.73m2) Glucose (74-106) mg/dL Calcium (8.5-10.1) mg/dL Total Bilirubin (0.2-1.0) mg/dL AST (15-37) U/L ALT (14-59) U/L Alkaline Phosphatase (46-116) U/L Total Protein (6.4-8.2) g/dL Albumin (3.4-5.0) g/dL Urine Color (Yellow) Urine Clarity (Clear) Urine pH (5-8) Ur Specific [place] (1.005-1.025) Urine Protein (Negative) mg/dL Urine Ketones (Negative) mg/dL Urine Blood (Negative) Urine Nitrite (Negative) Urine Bilirubin (Negative) Urine Urobilinogen (Up TO 0.2) EU/dL Ur Leukocyte Esterase (Negative) Urine RBC (0-2) HPF Urine WBC (0-5) HPF Ur Epithelial Cells (Negative) HPF Urine Crystals Urine Bacteria (Negative) HPF Urine Mucus Ur Culture Indicated? Urine Glucose (Negative) mg/dL COVID-19 Source Nasal/Nares SARS-CoV-2 (PCR) (Negative) Negative HPI <Huber Nam NP - Last Filed: 01/23/22 22:54> General Mode of arrival: ambulatory . Date/Time Provider Initiated Documentation: 01/22/22 21:21 . Limitations to Documentation: no limitations . Information obtained by: patient, RN notes reviewed and old records reviewed . History of Present Illness 42 year old F presents to the emergency department with the chief complaint of Hematuria, migraine headache, described as moderate and similar to prior episodes, with intensity rated at 10. Quality is described as aching, and is localized to the head. Patient reports no radiation. Patient started experiencing this hour(s) (4) and it has been constant. No relieving factors improve symptom(s), No exacerbating factors reported . Patient did receive the following treatments prior to arrival, none Related Data Home Medications Medication Instructions Recorded Confirmed calcium carb,cit 300 mg-D3 200 1 ea PO BID 11/09/12 01/22/22 unit-min no.34-genistein 13.5 mg tablet (Citracal Plus Bone Density Builder) inhalational spacing device (Space ##1 05/01/14 11/14/21 Chamber Plus) cyproheptadine 4 mg tablet 4 mg PO HS #90 tab-caps 06/04/16 01/22/22 naloxone 4 mg/actuation nasal 4 mg NS DAILY PRN PRN #2 sprays 12/08/16 01/22/22 spray (Narcan) triamcinolone acetonide 0.1 % 1 applic topical BID PRN eczema 09/05/19 01/22/22 topical cream #60 grams methylphenidate HCl 20 mg tablet 20 mg PO TID #84 tab-caps 10/20/19 01/22/22 diphenhydramine HCl 25 mg tablet 100 mg PO HS 12/13/19 01/22/22 (Benadryl Allergy) sucralfate 1 gram tablet 1 g PO AC & HS #120 tabs 12/30/19 01/22/22 clotrimazole-betamethasone 1 1 applic topical BID PRN rash #45 02/22/20 01/22/22 %-0.05 % topical cream grams epinephrine 0.3 mg/0.3 mL 0.3 mg (0.3 mL) IM ONCE #1 ea 02/22/20 01/22/22 injection, auto-injector (EpiPen 2-Nino) fluticasone propionate 220 2 inh inhalation BID ##3 02/22/20 01/22/22 mcg/actuation HFA aerosol inhaler (Flovent HFA) levothyroxine 125 mcg tablet 125 mcg PO .AM #90 tabs 02/22/20 01/22/22 omeprazole 40 mg capsule,delayed 40 mg PO DAILY GERD #90 caps 02/22/20 01/22/22 release albuterol sulfate 90 mcg/actuation 2 puff inhalation Q6H PRN ##3 03/07/20 01/22/22 aerosol inhaler (ProAir HFA) ondansetron HCl 8 mg tablet 8 mg PO BID PRN nausea and 03/07/20 01/22/22 vomiting #20 tabs sumatriptan succinate 6 mg/0.5 mL 6 mg (0.5 mL) subcut ONCE PRN 03/07/20 01/22/22 subcutaneous pen injector migraine headache #90 SYRGS clonazepam 1 mg tablet 1 mg PO TID PRN anxiety #90 tabs 03/20/20 01/22/22 acidophilus 25 million 1 tab PO DAILY 08/16/20 01/22/22 cell-pectin, citrus 100 mg tablet cetirizine 10 mg capsule (Zyrtec) 10 mg PO DAILY 08/16/20 01/22/22 hydrocodone 7.5 mg-acetaminophen 1 tab PO BID PRN 08/16/20 01/22/22 325 mg tablet ondansetron HCl 4 mg tablet 4 mg PO DAILY PRN 08/16/20 01/22/22 (Zofran) polyethylene glycol 3350 17 gram 17 g PO DAILY PRN 08/16/20 01/22/22 oral powder packet (Miralax) topiramate 200 mg tablet (Topamax) 400 mg PO DAILY 08/16/20 01/22/22 albuterol sulfate 2.5 mg/3 mL 2.5 mg inhalation TID 05/03/21 01/22/22 (0.083 %) solution for nebulization ascorbic acid (vitamin C) 500 mg 500 mg PO BID #60 tabs 05/04/21 11/14/21 tablet (Vitamin C) ngkyfnpytq-uutojfmzjulvd-dkmceinv 1 cap PO Q4H PRN #60 caps 05/04/21 01/22/22 50 mg-300 mg-40 mg capsule (Fioricet) cholecalciferol (vitamin D3) 50 50 mcg PO DAILY #30 caps 05/04/21 01/22/22 mcg (2,000 unit) capsule (Vitamin D3) melatonin 3 mg tablet 6 mg PO HS #30 tabs 05/04/21 01/22/22 prochlorperazine maleate 10 mg 10 mg PO TID PRN #60 tabs 05/04/21 01/22/22 tablet (Compazine) promethazine 25 mg tablet 25 mg PO TID PRN #60 tabs 05/04/21 01/22/22 enoxaparin 80 mg/0.8 mL 80 mg (0.8 mL) subcut Q12H #24 mL 11/15/21 01/22/22 subcutaneous syringe (Lovenox) warfarin 5 mg tablet 15 mg PO DAILY #30 tabs 11/15/21 01/22/22 budesonide-formoterol HFA 160 inh inhalation 01/22/22 mcg-4.5 mcg/actuation aerosol inhaler (Symbicort) Previous Rx's Medication Instructions Recorded inhalational spacing device (Space ##1 05/01/14 Chamber Plus) naloxone 4 mg/actuation nasal 4 mg NS DAILY PRN PRN #2 sprays 12/08/16 spray (Narcan) triamcinolone acetonide 0.1 % 1 applic topical BID PRN eczema 09/05/19 topical cream #60 grams methylphenidate HCl 20 mg tablet 20 mg PO TID #84 tab-caps 10/20/19 sucralfate 1 gram tablet 1 g PO AC & HS #120 tabs 12/30/19 clotrimazole-betamethasone 1 1 applic topical BID PRN rash #45 02/22/20 %-0.05 % topical cream grams epinephrine 0.3 mg/0.3 mL 0.3 mg (0.3 mL) IM ONCE #1 ea 02/22/20 injection, auto-injector (EpiPen 2-Nino) fluticasone propionate 220 2 inh inhalation BID ##3 02/22/20 mcg/actuation HFA aerosol inhaler (Flovent HFA) levothyroxine 125 mcg tablet 125 mcg PO .AM #90 tabs 02/22/20 omeprazole 40 mg capsule,delayed 40 mg PO DAILY GERD #90 caps 02/22/20 release albuterol sulfate 90 mcg/actuation 2 puff inhalation Q6H PRN ##3 03/07/20 aerosol inhaler (ProAir HFA) ondansetron HCl 8 mg tablet 8 mg PO BID PRN nausea and 03/07/20 vomiting #20 tabs sumatriptan succinate 6 mg/0.5 mL 6 mg (0.5 mL) subcut ONCE PRN 03/07/20 subcutaneous pen injector migraine headache #90 SYRGS clonazepam 1 mg tablet 1 mg PO TID PRN anxiety #90 tabs 03/20/20 ascorbic acid (vitamin C) 500 mg 500 mg PO BID #60 tabs 05/04/21 tablet (Vitamin C) spjyrhugsh-dxoutouvcmvuw-fxvzuqiu 1 cap PO Q4H PRN #60 caps 05/04/21 50 mg-300 mg-40 mg capsule (Fioricet) cholecalciferol (vitamin D3) 50 50 mcg PO DAILY #30 caps 05/04/21 mcg (2,000 unit) capsule (Vitamin D3) melatonin 3 mg tablet 6 mg PO HS #30 tabs 05/04/21 prochlorperazine maleate 10 mg 10 mg PO TID PRN #60 tabs 05/04/21 tablet (Compazine) promethazine 25 mg tablet 25 mg PO TID PRN #60 tabs 05/04/21 enoxaparin 80 mg/0.8 mL 80 mg (0.8 mL) subcut Q12H #24 mL 11/15/21 subcutaneous syringe (Lovenox) warfarin 5 mg tablet 15 mg PO DAILY #30 tabs 11/15/21 Allergies Allergy/AdvReac Type Severity Reaction Status Date / Time aripiprazole [From Abilify] Allergy Severe Rash, hives Verified 01/22/22 21:31 doxycycline Allergy Severe Anaphylaxsi Verified 01/22/22 21:31 s levetiracetam [From Kera] Allergy Severe RASH/HIVES Verified 01/22/22 21:31 sulfamethoxazole Allergy Severe Hives Verified 01/22/22 21:31 venom-honey bee Allergy Severe unknown Verified 01/22/22 21:31 Penicillins Allergy Intermediate Skin Rash Verified 01/22/22 21:31 chlorhexidine Allergy Unknown unknown Verified 01/22/22 21:31 Sulfa (Sulfonamide Allergy Verified 01/22/22 21:31 Antibiotics) mold AdvReac Severe Wheezing Verified 01/22/22 21:31 oxycodone [Oxycodone] AdvReac Severe vomits Verified 01/22/22 21:31 paroxetine AdvReac Severe Irritability Verified 01/22/22 21:31 and anger dicloxacillin [Dicloxacillin] AdvReac Mild Nausea, GI Verified 01/23/22 07:12 upset gabapentin AdvReac Mild hives Verified 01/22/22 21:31 prednisone AdvReac Agitation Verified 01/22/22 21:31 trazodone AdvReac shortness Verified 01/22/22 21:31 of breath verapamil [Verapamil] AdvReac Worsening Verified 01/22/22 21:31 migraine nuts Allergy Severe Anaphylaxsi Uncoded 01/22/22 21:31 s General Stated Complaint: GenMedical RYNE: 3 Review of Systems <Huber Nam NP - Last Filed: 01/23/22 22:54> Constitutional Constitutional: Denies chills, Denies fever(s) and Reports headache(s) ENT Ears, Nose, Mouth, and Throat: Denies facial pain, Reports headache(s), Reports nasal congestion (chronic), Denies neck pain and Denies sore throat Cardiovascular Cardiovascular: Reports chest pain (Chronic secondary to CHF and PE), Denies pedal edema and Reports dyspnea Respiratory Respiratory: Reports cough and Reports dyspnea Gastrointestinal Gastrointestinal: Denies abdominal pain, Denies diarrhea, Denies nausea and Denies vomiting Genitourinary Genitourinary: Reports as per HPI, Denies abnormal vaginal bleeding, Reports hematuria, Denies dysuria and Denies pelvic pain Musculoskeletal Musculoskeletal: Denies neck pain Neurologic Neurologic: Reports headache(s), Denies seizure-like activity, Denies sensory deficit and Denies paresthesias Psychiatric Psychiatric: Reports anxiety PFSH <Huber Nam NP - Last Filed: 01/23/22 22:54> All Active Problems (Updated 01/23/22 @ 00:07 by Liliana Ku DO) Hematuria (Acute) Headache (Acute) Nausea and vomiting (Acute) DVT prophylaxis (Acute) Intractable nausea and vomiting (Acute) Enterocolitis (Acute) Gastroesophagitis (Acute) Leukocytosis, unspecified (Acute) Intractable nausea and vomiting (Acute) Chronic anticoagulation (Chronic) On coumadin Cyclic vomiting syndrome (Acute) Panic disorder (Chronic 03/21/16) Chronic back pain greater than 3 months duration (Chronic 12/29/14) ADHD (attention deficit hyperactivity disorder), 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) B12 deficiency (Chronic) Medical History Acute deep vein thrombosis (DVT) of left lower extremity Acute renal insufficiency Asthma (11/08/12) Candidiasis Cellulitis of left leg Chronic anticoagulation Cyst of fallopian tube Depression Factor V Leiden mutation GERD (gastroesophageal reflux disease) Hematuria History of DVT (deep vein thrombosis) Hypothyroidism Iatrogenic pulmonary embolism and infarction Intractable vomiting with nausea Left buttock abscess Left lower quadrant pain (01/27/12) Migraine headache Nephrolithiasis Normocytic anemia Orbital cellulitis on left Other enthesopathies, not elsewhere classified (03/21/16) Neck Preseptal cellulitis of left eye Primary hypercoagulable state Recurrent deep vein thrombosis (DVT) Right lower quadrant abdominal pain inflamed/ruptured fallopian tube on the right Thrombosis of arteries of lower extremity Vaginal candidiasis Surgical History Abdominal hysterectomy (~2009) 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) Arthroplasty of knee (~1999) left Bilateral salpingectomy with oophorectomy (~2008) Cervical Conization/LEEP LEEP 2003 [facility] BX 2003 Cholecystectomy History of arthroscopy of knee S/P appendectomy (12/24/17) Dr Jose Alfredo ellsworth and jeannette excision of R fallopian tube remnant Status post cholecystectomy Status post LEEP (loop electrosurgical excision procedure) of cervix THUMB RECONSTRUCTION left; in childhood Social History Smoking/Tobacco Use Status: Never Smoking risk assessment performed?: Yes Alcohol Intake: former Drug use: Daily Substance use type: marijuana Current gender identity: female Do you feel safe at home: Yes Do you feel safe in your relationship?: Yes Additional Social history: Patient is and with one child. Exam <Huber Nam NP - Last Filed: 01/23/22 22:54> Const General: cooperative, no acute distress and well groomed Orientation: alert, awake and oriented x3 HENMT Head: normal to inspection Ears: hearing grossly normal bilaterally Mouth: oral mucosae normal and moist mucous membranes Throat: posterior oropharynx normal Eyes Visual Ornelas: normal visual ornelas by confrontation Alignment and Position: alignment normal Periorbital: periorbital findings normal Eyelids: eyelids normal Sclera: sclerae normal Cornea: corneas normal Pupils: PERRL EOM: EOM intact bilaterally Neck Neck: normal visual inspection, full ROM and no meningeal signs Resp Effort & Inspection: normal respiratory effort and able to speak in complete sentences Auscultation: clear to auscultation bilaterally Cardio Rate: regular rate Rhythm: regular rhythm Heart Sounds: S1 normal and S2 normal Neuro General: patient alert, patient awake, patient oriented x3, gait normal, tone normal, moves all extremities, CN's II-XI intact bilaterally and not confused Cognition: normal cognition Speech: speech normal Motor: muscle tone normal throughout, no movement abnormalities noted and no fasciculations Sensory Exam: no sensory deficits noted Coordination: Does not sway with eyes open Course <Huber Nam NP - Last Filed: 01/23/22 22:54> Vital Signs Vital signs: Vital Signs Temperature 36.7 C 01/22/22 21:27 Pulse 96 H 01/22/22 21:27 Respiratory Rate 16 01/22/22 21:27 Blood Pressure 146/94 H 01/22/22 21:27 Pulse Oximetry 97 01/22/22 21:27 Temperature 36.7 C 01/22/22 21:27 Temperature Source Tympanic 01/22/22 21:27 Pulse 96 H 01/22/22 21:27 Respiratory Rate 16 01/22/22 21:27 Respiratory Effort 01/22/22 21:27 Blood Pressure 146/94 H 01/22/22 21:27 Blood Pressure Position Sitting 01/22/22 21:27 Pulse Oximetry 97 01/22/22 21:27 Pain Level 10 01/22/22 21:27 Lab/Test Results Lab/Test Results: 01/22/22 21:48 Urine - Reflex from Ua Urine Culture - Pending Laboratory Tests Range/Units 01/22/22 01/22/22 01/22/22 21:48 22:00 22:00 WBC (4.4-10.8) 10^3/uL 8.88 RBC (3.93-5.22) 10^6/uL 4.30 Hgb (11.2-15.7) g/dL 12.6 Hct (36.0-46.0) % 36.1 MCV (80-95) fL 84 MCH (27.0-33.0) pg 29.3 MCHC (32.0-36.0) % 34.9 RDW (11.7-14.6) % 14.1 Plt Count (130-400) 10^3/uL 234 MPV (8.0-11.0) fL 10.9 Immature Gran % 0.2 Neutrophils % 59.7 Lymphocytes % 27.5 Monocytes % 8.2 Eosinophils % 3.9 Basophils % 0.5 Nucleated RBC % (0.0-0.3) % 0.0 Absolute Neutrophils (1.2-6.7) 10^3/uL 5.30 Absolute Lymphocytes (1.2-3.4) 10^3/uL 2.44 Absolute Monocytes (0.1-0.8) 10^3/uL 0.73 Absolute Eosinophils (0.0-0.7) 10^3/uL 0.35 Absolute Basophils (0.0-0.2) 10^3/uL 0.04 PT (9.3-11.0) sec INR (0.9-1.1) APTT (21.0-27.5) sec Sodium (136-145) mmol/L 137 Potassium (3.5-5.1) mmol/L 3.2 L Chloride (98-107) mmol/L 101 Carbon Dioxide (21.0-32.0) mmol/L 23.9 Anion Gap (3-11) mmol/L 12.1 H BUN (7-18) mg/dL 14 Creatinine (0.55-1.02) mg/dL 1.0 Est GFR (CKD-EPI 2020) (mL/min/1.73m2) 71.69 Glucose (74-106) mg/dL 86 Calcium (8.5-10.1) mg/dL 8.9 Total Bilirubin (0.2-1.0) mg/dL 0.3 AST (15-37) U/L 15 ALT (14-59) U/L 21 Alkaline Phosphatase (46-116) U/L 48 Total Protein (6.4-8.2) g/dL 7.8 Albumin (3.4-5.0) g/dL 4.6 Urine Color (Yellow) [place] Urine Clarity (Clear) Cloudy Urine pH (5-8) 6.0 Ur Specific [place] (1.005-1.025) 1.025 Urine Protein (Negative) mg/dL 100 H Urine Ketones (Negative) mg/dL Trace H Urine Blood (Negative) Large H Urine Nitrite (Negative) Negative Urine Bilirubin (Negative) Small H Urine Urobilinogen (Up TO 0.2) EU/dL 1.0 H Ur Leukocyte Esterase (Negative) Negative Urine RBC (0-2) HPF >50 H Urine WBC (0-5) HPF Ur Epithelial Cells (Negative) HPF Urine Crystals Not Applicable Urine Bacteria (Negative) HPF Urine Mucus Not Applicable Ur Culture Indicated? Yes Urine Glucose (Negative) mg/dL Negative Range/Units 01/22/22 22:00 WBC (4.4-10.8) 10^3/uL RBC (3.93-5.22) 10^6/uL Hgb (11.2-15.7) g/dL Hct (36.0-46.0) % MCV (80-95) fL MCH (27.0-33.0) pg MCHC (32.0-36.0) % RDW (11.7-14.6) % Plt Count (130-400) 10^3/uL MPV (8.0-11.0) fL Immature Gran % Neutrophils % Lymphocytes % Monocytes % Eosinophils % Basophils % Nucleated RBC % (0.0-0.3) % Absolute Neutrophils (1.2-6.7) 10^3/uL Absolute Lymphocytes (1.2-3.4) 10^3/uL Absolute Monocytes (0.1-0.8) 10^3/uL Absolute Eosinophils (0.0-0.7) 10^3/uL Absolute Basophils (0.0-0.2) 10^3/uL PT (9.3-11.0) sec 29.0 H INR (0.9-1.1) 3.1 H APTT (21.0-27.5) sec 36.9 H Sodium (136-145) mmol/L Potassium (3.5-5.1) mmol/L Chloride (98-107) mmol/L Carbon Dioxide (21.0-32.0) mmol/L Anion Gap (3-11) mmol/L BUN (7-18) mg/dL Creatinine (0.55-1.02) mg/dL Est GFR (CKD-EPI 2020) (mL/min/1.73m2) Glucose (74-106) mg/dL Calcium (8.5-10.1) mg/dL Total Bilirubin (0.2-1.0) mg/dL AST (15-37) U/L ALT (14-59) U/L Alkaline Phosphatase (46-116) U/L Total Protein (6.4-8.2) g/dL Albumin (3.4-5.0) g/dL Urine Color (Yellow) Urine Clarity (Clear) Urine pH (5-8) Ur Specific [place] (1.005-1.025) Urine Protein (Negative) mg/dL Urine Ketones (Negative) mg/dL Urine Blood (Negative) Urine Nitrite (Negative) Urine Bilirubin (Negative) Urine Urobilinogen (Up TO 0.2) EU/dL Ur Leukocyte Esterase (Negative) Urine RBC (0-2) HPF Urine WBC (0-5) HPF Ur Epithelial Cells (Negative) HPF Urine Crystals Urine Bacteria (Negative) HPF Urine Mucus Ur Culture Indicated? Urine Glucose (Negative) mg/dL Sign Out <Huber Nam NP - Last Filed: 01/23/22 22:54> Sign Out Data: Sign Out Comment: Patient pending consultation with [facility] hematology to discuss findings along with reassessment pending completion of medications. Last updated by Huber Nam NP at 01/22/22 23:27
[2022-01-22 23:35] LABS: Source Nasal/Nares
[2022-01-22] MEDS: Potassium Chloride 20 MEQ TABCR 40 MEQ PO (23:40)
[2022-01-23] VITALS (9 sets, daily range): BP systolic 137–146; BP diastolic 83–105; PULSE 74–87; RESP 11–21; O2SAT 96–100
[2022-01-23] MEDS: Prochlorperazine 10 MG/2 ML VIAL IVP (00:05)
[2022-01-23] MEDS: HYDROmorphone 2 MG/ML SYR 1 MG IVP (00:15)
--- NOTE | 2022-01-23 01:01 | ED.PROG_ITS ---
Date of service: 01/23/22 Time of Service: 01:01 Medical Decision Making Case has been discussed with the hospitalist and no indication for admission. A medical screening exam was performed. Patient is stable. 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 I will also refer her to follow-up with urology. Sign Out Sign Out Data: Sign Out Comment: Patient pending consultation with [facility] hematology to discuss findings along with reassessment pending completion of medications. Last updated by Huber Nam NP at 01/22/22 23:27 Discharge Plan Disposition Patient Disposition: HOME Condition: Stable Discharge Details Clinical Impression: Hematuria, Headache, Nausea and vomiting Primary Care Provider: Patrica Lopez ED Provider: Sunny Hernandez Home Meds and New Rx's Prescriptions: Continued sucralfate 1 gram tablet 1 g PO AC & HS Qty: 120 2RF Citracal Plus Bone Density 1 EACH tablet 1 ea PO BID cyproheptadine 4 MG tablet 4 mg PO HS Qty: 90 triamcinolone acetonide 0.1 % cream 1 applic Topical BID PRN (Reason: eczema) Qty: 60 1RF Rx Instructions: Apply to eczema methylphenidate HCl 20 mg tablet 20 mg PO TID MDD 60 mg Qty: 84 0RF epinephrine [EpiPen 2-Nino] 0.3 mg/0.3 mL auto-injector 0.3 mg IM ONCE Qty: 1 1RF fluticasone propionate [Flovent HFA] 220 mcg/actuation HFA aerosol inhaler 2 inh Inhalation BID Qty: 3 4RF levothyroxine 125 mcg tablet 125 mcg PO .AM Qty: 90 0RF omeprazole 40 mg capsule,delayed release(DR/EC) 40 mg PO DAILY Qty: 90 4RF clotrimazole-betamethasone 1-0.05 % cream 1 applic Topical BID PRN (Reason: rash) Qty: 45 1RF Rx Instructions: Apply to skin folds albuterol sulfate [ProAir HFA] 90 mcg/actuation HFA aerosol inhaler 2 puff Inhalation Q6H PRN MDD 6 puffs Qty: 3 4RF ondansetron HCl 8 mg tablet 8 mg PO BID PRN (Reason: nausea and vomiting) Qty: 20 0RF sumatriptan succinate 6 mg/0.5 mL pen injector 6 mg subcut ONCE MDD 12mg PRN (Reason: migraine headache) Qty: 90 1RF Rx Instructions: May repeat dose once in 1 hour if headache persists clonazepam 1 mg tablet 1 mg PO TID PRN (Reason: anxiety) Qty: 90 0RF (DME) Space Chamber Plus 1 EACH spacer 1 ea Miscellaneous Q4H PRN Qty: 1 0RF naloxone [Narcan] 4 MG spray,non-aerosol 4 mg NS DAILY PRN PRNQty: 2 0RF Rx Instructions: One spray (4mg) intranasally into one nostril. Use a new nasal spray for subsequent dose in alternate nostril if needed. May repeat once after initial dose in 2-3 minutes. polyethylene glycol 3350 [Miralax] 17 gram Powder In Packet 17 g PO DAILY PRN ondansetron HCl [Zofran] 4 mg Tablet 4 mg PO DAILY PRN hydrocodone-acetaminophen 7.5-325 mg tablet 1 tab PO BID PRN Zyrtec 10 mg Capsule 10 mg PO DAILY topiramate [Topamax] 200 mg tablet 400 mg PO DAILY Rx Instructions: Brand name medically necessary acidophilus-pectin, citrus 25 million cell -100 mg tablet 1 tab PO DAILY albuterol sulfate 2.5 mg /3 mL (0.083 %) Solution For Nebulization 2.5 mg INHALATION TID ascorbic acid (vitamin C) [Vitamin C] 500 mg Tablet 500 mg PO BID Qty: 60 0RF [id number] [Fioricet] 50-300-40 mg capsule 1 cap PO Q4H PRNQty: 60 0RF Rx Instructions: Take 1-2 tabs as needed for [place]TT, not to exceed 6 tabs in 24 hours cholecalciferol (vitamin D3) [Vitamin D3] 50 mcg (2,000 unit) capsule 50 mcg PO DAILY Qty: 30 0RF melatonin 3 mg Tablet 6 mg PO HS Qty: 30 0RF prochlorperazine maleate [Compazine] 10 mg tablet 10 mg PO TID PRNQty: 60 0RF promethazine 25 mg tablet 25 mg PO TID PRNQty: 60 0RF warfarin 5 mg tablet 15 mg PO DAILY Qty: 30 0RF enoxaparin [Lovenox] 80 mg/0.8 mL syringe 80 mg subcut Q12H Qty: 24 0RF diphenhydramine HCl [Benadryl Allergy] 25 mg tablet 100 mg PO HS Label Comments: Take 4 tablet by mouth at bedtime budesonide-formoterol [Symbicort] 160-4.5 mcg/actuation HFA aerosol inhaler INHALATION Label Comments: INHALE TWO PUFFS BY MOUTH TWICE A DAY AND NEEDED Discharge Instructions Instructions: Acute Nausea and Vomiting (ED), Hematuria (ED) Additional Instructions: Please drink small amounts of fluid often in order to stay hydrated. Please follow-up with your primary care physician. Call tomorrow to schedule a follow-up appointment. Your INR today was 3.1. Please continue to monitor this and discuss with your director of search engine marketing. Please follow-up with urology. Call to schedule an appointment. Return to the ER immediately for any worsening or new concerning symptoms. Referrals: [facility] [Provider Group] Patrica Lopez [Primary Care Provider] - Discharge Data Discharge Date/Time-TO BE ENTERED AT DEPARTURE: 01/23/22 01:47
--- NOTE | 2022-01-23 01:55 | NUR.NOTE ---
pt c/o of skin burning after application of caspacian cream to abd, arms and lower legs. skin red. remaining cream washed off.Nursing Note:
[2022-01-23 13:50] LABS: COVID-19 PCR Negative (Negative)
== END 2022-01-23 01:47 | disposition home or self-care (01) ==
PROVIDERS: Nurse Practitioner Family; Emergency Provider Student in an Organized Health Care Education/Training Program; PCP Family Medicine
DX: R31.9 Hematuria, unspecified (principal); R51.9 Headache, unspecified; R11.2 Nausea with vomiting, unspecified; F41.9 Anxiety disorder, unspecified; E87.6 Hypokalemia; J45.909 Unspecified asthma, uncomplicated; Z86.718 Personal history of other venous thrombosis and embolism; Z86.73 Personal history of transient ischemic attack (TIA), and cerebral infarction without residual deficits; Z20.822 Contact with and (suspected) exposure to COVID-19
CPT/HCPCS: 36415; 80053; 87077; 87635; 96365; 96375; 99284; 70450; 81003; 81015; 85025; 85610; 85730; 87086; 87186; J0131; J0780; J1170; J1200; J3360

== ENCOUNTER 2022-05-17 11:42 | Inpatient (IN) | payer MEDICARE, MEDICAID, SELFPAY ==
[2022-05-17] VITALS (30 sets, daily range): BP systolic 142–193; BP diastolic 83–133; PULSE 51–112; RESP 11–33; TEMP 36.5–37.1; O2SAT 99–100
--- NOTE | 2022-05-17 11:30 | RT.EKG_ITS ---
APPROVED REPORT Exam: Resting ECG Reason for Exam: chest pain/difficulty breathing Patient Location: E HR:76 bpm ECG Measurements Heart Rate 76 AXIS IL 158 P 52 QRSd 86 QRS -33 QT 406 T 46 QTc 445 Conclusion Sinus rhythm Left axis deviation. Anteroseptal infarct, old...Q >40mS, V1-V2
[2022-05-17] MEDS: Naloxone 0.4 MG/ML VIAL (11:45)
--- NOTE | 2022-05-17 11:45 | DI.CT_ITS ---
Exam(s) CT HEAD WO EXAM: CT HEAD WO CLINICAL HISTORY: unresponsive. TECHNIQUE: Imaging Protocol: Axial computed tomography images with coronal and sagittal reformatted images were created and reviewed COMPARISON: No exams were available for comparison FINDINGS: There is streak artifact related to jewelry which the patient refused to remove.. Ventricles and Extra axial spaces: Normal in size and morphology for the patient's age. Hemorrhage: None. Cerebral parenchyma: Normal. Midline shift: None. Brainstem/Cerebellum: Normal. Calvarium: Normal. Visualized Paranasal sinuses/Mastoids: Mild mucosal thickening ethmoid and maxillary sinuses. Mastoi d air cells are clear. Soft Tissues: Unremarkable. IMPRESSION: No acute intracranial process. RADIATION DOSE DELIVERED: 792.6mGy.cm Total DLP DATA REPOSITORY: All CT scans at this facility are submitted to the National Radiology Data Registry (NRDR) Dose Index Registry (DIR) with the [employer] ([employer]). RADIATION OPTIMIZATION: All CT scans at this facility use at least one of these dose optimization te chniques: automated exposure control; mA and/or kV adjustment per patient size (includes targeted exa ms where dose is matched to clinical indication); or iterative reconstruction.
--- NOTE | 2022-05-17 11:53 | ED.GENADUL_ITS ---
Discharge Plan Disposition Patient Disposition: Admit to [facility] Condition: Improving Discharge Details Clinical Impression: Pulmonary embolism Primary Care Provider: Patrica Lopez ED Provider: Frank Owusu Home Meds and New Rx's Prescriptions: No Action sucralfate 1 gram tablet 1 g PO AC & HS Qty: 120 2RF Citracal Plus Bone Density 1 EACH tablet 1 ea PO BID cyproheptadine 4 MG tablet 4 mg PO HS Qty: 90 triamcinolone acetonide 0.1 % cream 1 applic Topical BID PRN (Reason: eczema) Qty: 60 1RF Rx Instructions: Apply to eczema methylphenidate HCl 20 mg tablet 20 mg PO TID MDD 60 mg Qty: 84 0RF epinephrine [EpiPen 2-Nino] 0.3 mg/0.3 mL auto-injector 0.3 mg IM ONCE Qty: 1 1RF fluticasone propionate [Flovent HFA] 220 mcg/actuation HFA aerosol inhaler 2 inh Inhalation BID Qty: 3 4RF levothyroxine 125 mcg tablet 125 mcg PO .AM Qty: 90 0RF omeprazole 40 mg capsule,delayed release(DR/EC) 40 mg PO DAILY Qty: 90 4RF clotrimazole-betamethasone 1-0.05 % cream 1 applic Topical BID PRN (Reason: rash) Qty: 45 1RF Rx Instructions: Apply to skin folds albuterol sulfate [ProAir HFA] 90 mcg/actuation HFA aerosol inhaler 2 puff Inhalation Q6H PRN MDD 6 puffs Qty: 3 4RF ondansetron HCl 8 mg tablet 8 mg PO BID PRN (Reason: nausea and vomiting) Qty: 20 0RF sumatriptan succinate 6 mg/0.5 mL pen injector 6 mg subcut ONCE MDD 12mg PRN (Reason: migraine headache) Qty: 90 1RF Rx Instructions: May repeat dose once in 1 hour if headache persists clonazepam 1 mg tablet 1 mg PO TID PRN (Reason: anxiety) Qty: 90 0RF (DME) Space Chamber Plus 1 EACH spacer 1 ea Miscellaneous Q4H PRN Qty: 1 0RF naloxone [Narcan] 4 MG spray,non-aerosol 4 mg NS DAILY PRN PRNQty: 2 0RF Rx Instructions: One spray (4mg) intranasally into one nostril. Use a new nasal spray for subsequent dose in alternate nostril if needed. May repeat once after initial dose in 2-3 minutes. polyethylene glycol 3350 [Miralax] 17 gram Powder In Packet 17 g PO DAILY PRN ondansetron HCl [Zofran] 4 mg Tablet 4 mg PO DAILY PRN Zyrtec 10 mg Capsule 10 mg PO DAILY topiramate [Topamax] 200 mg tablet 400 mg PO DAILY Rx Instructions: Brand name medically necessary acidophilus-pectin, citrus 25 million cell -100 mg tablet 1 tab PO DAILY albuterol sulfate 2.5 mg /3 mL (0.083 %) Solution For Nebulization 2.5 mg INHALATION TID ascorbic acid (vitamin C) [Vitamin C] 500 mg Tablet 500 mg PO BID Qty: 60 0RF xuucgqoxxj-obivbvnclalbt-ucrs [Fioricet] 50-300-40 mg capsule 1 cap PO Q4H PRNQty: 60 0RF Rx Instructions: Take 1-2 tabs as needed for WILLETT, not to exceed 6 tabs in 24 hours cholecalciferol (vitamin D3) [Vitamin D3] 50 mcg (2,000 unit) capsule 50 mcg PO DAILY Qty: 30 0RF melatonin 3 mg Tablet 6 mg PO HS Qty: 30 0RF prochlorperazine maleate [Compazine] 10 mg tablet 10 mg PO TID PRNQty: 60 0RF promethazine 25 mg tablet 25 mg PO TID PRNQty: 60 0RF warfarin 5 mg tablet 15 mg PO DAILY Qty: 30 0RF enoxaparin [Lovenox] 80 mg/0.8 mL syringe 80 mg subcut Q12H Qty: 24 0RF diphenhydramine HCl [Benadryl Allergy] 25 mg tablet 100 mg PO HS Label Comments: Take 4 tablet by mouth at bedtime budesonide-formoterol [Symbicort] 160-4.5 mcg/actuation HFA aerosol inhaler INHALATION Label Comments: INHALE TWO PUFFS BY MOUTH TWICE A DAY AND NEEDED Medical Decision Making Patient presents via EMS unresponsive. Family reports that she awoke normally and then state that she was having chest pain and slowly lowered herself to the ground. She was found unresponsive by EMS, felt to be wheezing and given a breathing treatment en route. Upon arrival patient demonstrates sonorous respirations, a depressed blood present gag reflex. The patient was placed on a potline monitor, 2 peripheral IVs were obtained, she was given 2 doses of Narcan and became more responsive and alert, stating to me that she told her Ritalin this morning. Family states patient has had narcotics in the past but not currently. They state that her mood has been stable. Patient states she has mild ongoing left anterior chest pain. Differential diagnosis considered is quite broad: Intentional or unintentional overdose, syncope, ACS, PE. She has a history of factor V Leiden deficiency, pulmonary embolism, and is maintained on warfarin for 15 mg daily as well as Lovenox daily. Additionally, patient is on benzodiazepines chronically. After response to Narcan, ABG was obtained showing pH 7.4, PCO2 32, PO2 96 and the patient was transitioned to room air successfully. Peripheral laboratory testing and imaging studies. Patient has an INR of 1.3 which appears subtherapeutic for her with recent INR is in the threes. Potassium is low 2.6 and supplemented in the emergency department. Troponin is negative. CT of the chest reveals very small pulmonary emboli in the medial left lower lobe. No right ventricular dysfunction noted. Patient states that she has had both high and low INR's recently. She states she was recently changed from twice daily Lovenox at home to once daily 80 mg in addition to the 15 mg of warfarin. She is followed by hematology at the [facility]. Case discussed with on-call hematology at [facility], Dr Gann. She states the patient should be placed on a heparin drip which I have already ordered, she requested that be maintained for 24 hours and then to consider increasing her warfarin. She asked that the hematology team be contacted on Thursday or Thursday for repeat consultation. Patient states she has had a chronic left lower extremity DVT in the past. Today, repeat lower extremity ultrasounds have been ordered. HPI General Mode of arrival: EMS . Date/Time Provider Initiated Documentation: 05/17/22 12:08 . Limitations to Documentation: altered mental status . Information obtained by: EMS . History of Present Illness 42 year old F presents to the emergency department with the chief complaint of Unresponsive at home, unchanged with breathing treatments en route, described as severe, Patient started experiencing this unknown and it has been other (Improving after Narcan). Related Data Home Medications Medication Instructions Recorded Confirmed calcium carb,cit 300 mg-D3 200 1 ea PO BID 11/09/12 02/07/22 unit-min no.34-genistein 13.5 mg tablet (Citracal Plus Bone Density Builder) inhalational spacing device (Space ##1 05/01/14 02/07/22 Chamber Plus) cyproheptadine 4 mg tablet 4 mg PO HS #90 tab-caps 06/04/16 02/07/22 naloxone 4 mg/actuation nasal 4 mg NS DAILY PRN PRN #2 sprays 12/08/16 02/07/22 spray (Narcan) triamcinolone acetonide 0.1 % 1 applic topical BID PRN eczema 09/05/19 02/07/22 topical cream #60 grams methylphenidate HCl 20 mg tablet 20 mg PO TID #84 tab-caps 10/20/19 02/07/22 diphenhydramine HCl 25 mg tablet 100 mg PO HS 12/13/19 02/07/22 (Benadryl Allergy) sucralfate 1 gram tablet 1 g PO AC & HS #120 tabs 12/30/19 02/07/22 clotrimazole-betamethasone 1 1 applic topical BID PRN rash #45 02/22/20 02/07/22 %-0.05 % topical cream grams epinephrine 0.3 mg/0.3 mL 0.3 mg (0.3 mL) IM ONCE #1 ea 02/22/20 02/07/22 injection, auto-injector (EpiPen 2-Nino) fluticasone propionate 220 2 inh inhalation BID ##3 02/22/20 02/07/22 mcg/actuation HFA aerosol inhaler (Flovent HFA) levothyroxine 125 mcg tablet 125 mcg PO .AM #90 tabs 02/22/20 02/07/22 omeprazole 40 mg capsule,delayed 40 mg PO DAILY GERD #90 caps 02/22/20 02/07/22 release albuterol sulfate 90 mcg/actuation 2 puff inhalation Q6H PRN ##3 03/07/20 02/07/22 aerosol inhaler (ProAir HFA) ondansetron HCl 8 mg tablet 8 mg PO BID PRN nausea and 03/07/20 02/07/22 vomiting #20 tabs sumatriptan succinate 6 mg/0.5 mL 6 mg (0.5 mL) subcut ONCE PRN 03/07/20 02/07/22 subcutaneous pen injector migraine headache #90 SYRGS clonazepam 1 mg tablet 1 mg PO TID PRN anxiety #90 tabs 03/20/20 02/07/22 acidophilus 25 million 1 tab PO DAILY 08/16/20 02/07/22 cell-pectin, citrus 100 mg tablet cetirizine 10 mg capsule (Zyrtec) 10 mg PO DAILY 08/16/20 02/07/22 ondansetron HCl 4 mg tablet 4 mg PO DAILY PRN 08/16/20 02/07/22 (Zofran) polyethylene glycol 3350 17 gram 17 g PO DAILY PRN 08/16/20 02/07/22 oral powder packet (Miralax) topiramate 200 mg tablet (Topamax) 400 mg PO DAILY 08/16/20 02/07/22 albuterol sulfate 2.5 mg/3 mL 2.5 mg inhalation TID 05/03/21 02/07/22 (0.083 %) solution for nebulization ascorbic acid (vitamin C) 500 mg 500 mg PO BID #60 tabs 05/04/21 02/07/22 tablet (Vitamin C) wzohgrnphj-nlqwrajnkhacy-kozswyuo 1 cap PO Q4H PRN #60 caps 05/04/21 02/07/22 50 mg-300 mg-40 mg capsule (Fioricet) cholecalciferol (vitamin D3) 50 50 mcg PO DAILY #30 caps 05/04/21 02/07/22 mcg (2,000 unit) capsule (Vitamin D3) melatonin 3 mg tablet 6 mg PO HS #30 tabs 05/04/21 02/07/22 prochlorperazine maleate 10 mg 10 mg PO TID PRN #60 tabs 05/04/21 02/07/22 tablet (Compazine) promethazine 25 mg tablet 25 mg PO TID PRN #60 tabs 05/04/21 02/07/22 enoxaparin 80 mg/0.8 mL 80 mg (0.8 mL) subcut Q12H #24 mL 11/15/21 02/07/22 subcutaneous syringe (Lovenox) warfarin 5 mg tablet 15 mg PO DAILY #30 tabs 11/15/21 02/07/22 budesonide-formoterol HFA 160 inh inhalation 01/22/22 02/07/22 mcg-4.5 mcg/actuation aerosol inhaler (Symbicort) Previous Rx's Medication Instructions Recorded inhalational spacing device (Space ##1 05/01/14 Chamber Plus) naloxone 4 mg/actuation nasal 4 mg NS DAILY PRN PRN #2 sprays 12/08/16 spray (Narcan) triamcinolone acetonide 0.1 % 1 applic topical BID PRN eczema 09/05/19 topical cream #60 grams methylphenidate HCl 20 mg tablet 20 mg PO TID #84 tab-caps 10/20/19 sucralfate 1 gram tablet 1 g PO AC & HS #120 tabs 12/30/19 clotrimazole-betamethasone 1 1 applic topical BID PRN rash #45 02/22/20 %-0.05 % topical cream grams epinephrine 0.3 mg/0.3 mL 0.3 mg (0.3 mL) IM ONCE #1 ea 02/22/20 injection, auto-injector (EpiPen 2-Nino) fluticasone propionate 220 2 inh inhalation BID ##3 02/22/20 mcg/actuation HFA aerosol inhaler (Flovent HFA) levothyroxine 125 mcg tablet 125 mcg PO .AM #90 tabs 02/22/20 omeprazole 40 mg capsule,delayed 40 mg PO DAILY GERD #90 caps 02/22/20 release albuterol sulfate 90 mcg/actuation 2 puff inhalation Q6H PRN ##3 03/07/20 aerosol inhaler (ProAir HFA) ondansetron HCl 8 mg tablet 8 mg PO BID PRN nausea and 03/07/20 vomiting #20 tabs sumatriptan succinate 6 mg/0.5 mL 6 mg (0.5 mL) subcut ONCE PRN 03/07/20 subcutaneous pen injector migraine headache #90 SYRGS clonazepam 1 mg tablet 1 mg PO TID PRN anxiety #90 tabs 03/20/20 ascorbic acid (vitamin C) 500 mg 500 mg PO BID #60 tabs 05/04/21 tablet (Vitamin C) jpqadsptll-ggdiwasgpmaye-wyyidjyr 1 cap PO Q4H PRN #60 caps 05/04/21 50 mg-300 mg-40 mg capsule (Fioricet) cholecalciferol (vitamin D3) 50 50 mcg PO DAILY #30 caps 05/04/21 mcg (2,000 unit) capsule (Vitamin D3) melatonin 3 mg tablet 6 mg PO HS #30 tabs 05/04/21 prochlorperazine maleate 10 mg 10 mg PO TID PRN #60 tabs 05/04/21 tablet (Compazine) promethazine 25 mg tablet 25 mg PO TID PRN #60 tabs 05/04/21 enoxaparin 80 mg/0.8 mL 80 mg (0.8 mL) subcut Q12H #24 mL 11/15/21 subcutaneous syringe (Lovenox) warfarin 5 mg tablet 15 mg PO DAILY #30 tabs 11/15/21 Allergies Allergy/AdvReac Type Severity Reaction Status Date / Time aripiprazole [From Abilify] Allergy Severe Rash, hives Verified 02/07/22 09:45 doxycycline Allergy Severe Anaphylaxsi Verified 02/07/22 09:45 s levetiracetam [From [facility]] Allergy Severe RASH/HIVES Verified 02/07/22 09:45 sulfamethoxazole Allergy Severe Hives Verified 02/07/22 09:45 venom-honey bee Allergy Severe unknown Verified 02/07/22 09:45 Penicillins Allergy Intermediate Skin Rash Verified 02/07/22 09:45 chlorhexidine Allergy Unknown unknown Verified 02/07/22 09:45 Sulfa (Sulfonamide Allergy Verified 02/07/22 09:45 Antibiotics) mold AdvReac Severe Wheezing Verified 02/07/22 09:45 oxycodone [Oxycodone] AdvReac Severe vomits Verified 02/07/22 09:45 paroxetine AdvReac Severe Irritability Verified 02/07/22 09:45 and anger dicloxacillin [Dicloxacillin] AdvReac Mild Nausea, GI Verified 02/07/22 09:45 upset gabapentin AdvReac Mild hives Verified 02/07/22 09:45 prednisone AdvReac Agitation Verified 02/07/22 09:45 trazodone AdvReac shortness Verified 02/07/22 09:45 of breath verapamil [Verapamil] AdvReac Worsening Verified 02/07/22 09:45 migraine nuts Allergy Severe Anaphylaxsi Uncoded 02/07/22 09:45 s General Stated Complaint: OD/Poison RYNE: 2 Review of Systems Unobtainable due to mental status PFSH All Active Problems (Updated 05/17/22 @ 13:48 by Frank Owusu MD) Pulmonary embolism (Chronic) Anxiety (Chronic) DVT prophylaxis (Acute) Intractable nausea and vomiting (Acute) Enterocolitis (Acute) Gastroesophagitis (Acute) Leukocytosis, unspecified (Acute) Intractable nausea and vomiting (Acute) Chronic anticoagulation (Chronic) On coumadin Cyclic vomiting syndrome (Acute) Panic disorder (Chronic 03/21/16) Chronic back pain greater than 3 months duration (Chronic 12/29/14) ADHD (attention deficit hyperactivity disorder), 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) B12 deficiency (Chronic) Medical History Acute deep vein thrombosis (DVT) of left lower extremity Acute renal insufficiency Asthma (11/08/12) Candidiasis Cellulitis of left leg Chronic anticoagulation Cyst of fallopian tube Depression Factor V Leiden mutation GERD (gastroesophageal reflux disease) Hematuria History of DVT (deep vein thrombosis) Hypothyroidism Iatrogenic pulmonary embolism and infarction Intractable vomiting with nausea Left buttock abscess Left lower quadrant pain (01/27/12) Migraine headache Nephrolithiasis Normocytic anemia Orbital cellulitis on left Other enthesopathies, not elsewhere classified (03/21/16) Neck Preseptal cellulitis of left eye Primary hypercoagulable state Recurrent deep vein thrombosis (DVT) Right lower quadrant abdominal pain inflamed/ruptured fallopian tube on the right Thrombosis of arteries of lower extremity Vaginal candidiasis Surgical History Abdominal hysterectomy (~2009) 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) Arthroplasty of knee (~1999) left Bilateral salpingectomy with oophorectomy (~2008) Cervical Conization/LEEP LEEP 2003 [facility] BX 2003 Cholecystectomy History of arthroscopy of knee S/P appendectomy (12/24/17) Dr Veliz - Car [place] and car excision of R fallopian tube remnant Status post cholecystectomy Status post LEEP (loop electrosurgical excision procedure) of cervix THUMB RECONSTRUCTION left; in childhood Social History Smoking/Tobacco Use Status: Never Smoking risk assessment performed?: Yes Alcohol Intake: former Drug use: Daily Substance use type: marijuana Current gender identity: female Do you feel safe at home: Yes Do you feel safe in your relationship?: Yes Additional Social history: Patient is and with one child. Exam Narrative Exam Narrative: GEN: Unresponsive with sonorous respirations HEAD: Normocephalic, atraumatic ENT: Mucous membranes moist, oropharynx with weak but positive gag reflex, External ear exam unremarkable EYES: PERRL, EOMI, pupils are miotic bilaterally NECK: Full ROM, no ISATU, no menigismus CHEST/RESP: Nontender, few rhonchi scattered bilaterally CARDIOVASCULAR: RRR, no murmur, rub bradly. 2+ Rad pulse bilateral ABDOMEN: Soft, nontender, no mass. +Bowel sounds EXT: Full ROM, no edema, no rash Neuro: Unresponsive, positive gag reflex, does not localize pain Psych: Unable to assess Course Vital Signs Vital signs: Vital Signs Temperature 36.5 C 05/17/22 11:39 Pulse 85 05/17/22 11:39 Respiratory Rate 16 05/17/22 11:39 Blood Pressure 153/89 H 05/17/22 11:39 Pulse Oximetry 100 05/17/22 11:39 Temperature 36.5 C 05/17/22 11:39 Temperature Source Skin 05/17/22 11:39 Pulse 85 05/17/22 11:39 Respiratory Rate 16 05/17/22 11:39 Blood Pressure 153/89 H 05/17/22 11:39 Blood Pressure Position Supine 05/17/22 11:39 Pulse Oximetry 100 05/17/22 11:39 Oxygen Delivery Method Non-Rebreather 05/17/22 11:39 Oxygen Flow Rate 15 05/17/22 11:39
[2022-05-17 11:57] LABS: Abs Immature Grans 0.01 10^3/uL (0.0-0.06); Absolute Basophil Count 0.01 10^3/uL (0.0-0.2); Absolute Eosinophil Count 0.38 10^3/uL (0.0-0.7); Absolute Lymphocyte Count 1.74 10^3/uL (1.2-3.4); Absolute Monocyte Count 0.43 10^3/uL (0.1-0.8); Absolute Neutrophil Count 2.25 10^3/uL (1.2-6.7); Basophils % 0.2; Eosinophils % 7.9; HCT 36.6 % (36.0-46.0); HGB 12.3 g/dL (11.2-15.7); Immature Grans % 0.2; Lymphocytes % 36.1; MCH 28.1 pg (27.0-33.0); MCHC 33.6 % (32.0-36.0); MCV 84 fL (80-95); Monocytes % 8.9; Neutrophils % 46.7; Platelet Count 188 10^3/uL (130-400); RBC 4.38 10^6/uL (3.93-5.22); RDW 13.7 % (11.7-14.6); RDW-SD 41.7 fL; WBC 4.82 10^3/uL (4.4-10.8)
[2022-05-17] MEDS: Ondansetron 4 MG/2 ML VIAL IVP (12:00)
--- NOTE | 2022-05-17 12:03 | NUR.NOTE ---
Nursing Note:;40 patient arrived unresponsive on NRB with EMS. Not arousable to painful or verbal stimuli. Hypertensive . 02 @100% on 15L. 11:45- 0.4 Narcan IVP- pt minimally aroused at this time 11:47- 0.5 Narcan IVP - pt opening eyes. Alert and oriented. Removed fromNRB and put on 5L nc. Spontaneous respirations. o2 at 99% 11:52- pt nauseous, slightly shakey. 4mg zofran IVP. RA at this time. RT in room o2 WNL. Cont. monitoring remains in place. Pt remains alert at this time. VS remain stable.
[2022-05-17 12:05] LABS: INR 1.3 (0.9-1.1); Prothrombin Time 12.7 sec (9.3-11.0)
[2022-05-17 12:10] LABS: ALT 19 U/L (14-59); AST 19 U/L (15-37); Alkaline Phosphatase 50 U/L (46-116); Anion Gap 7.1 mmol/L (3-11); BUN 8 mg/dL (7-18); Bilirubin, Total 0.5 mg/dL (0.2-1.0); CO2 27.9 mmol/L (21.0-32.0); Calcium 8.7 mg/dL (8.5-10.1); Chloride 105 mmol/L (98-107); Estimated GFR 71.69 (mL/min/1.73m2); Glucose 150 mg/dL (74-106); Sodium 140 mmol/L (136-145); Total Protein 6.7 g/dL (6.4-8.2)
[2022-05-17 12:12] LABS: Potassium 2.6 mmol/L (3.5-5.1)
[2022-05-17 12:13] LABS: BE -2 mmol/L (-2-3); HCO3 22 mmol/L (22-26); pCO2 32 mmHg (35-45); pH 7.45 (7.35-7.45); pO2 96 mmHg (80-105); sO2 98 % (95-98); tCO2 20 mmol/L (23-27)
[2022-05-17 12:14] LABS: Site Right Radial
[2022-05-17 12:15] LABS: FIO2 ROOM AIR %
--- NOTE | 2022-05-17 12:15 | DI.CT_ITS ---
Exam(s) CT CHEST PE CTA EXAM: CT CHEST PE CTA CLINICAL HISTORY: Anterior CP, hx DVT. TECHNIQUE: Imaging Protocol: Axial CT angiography was performed with multi-slice acquisition and mu lti-planar reconstructions as well as axial, coronal and sagittal MIP reconstructions. CONTRAST MATERIAL: Intravenous: Omnipaque 350 Contrast volume:100 ml COMPARISON: CT CT ABDOMEN PELVIS W from 07/13/2020 FINDINGS: Pulmonary Arteries: Evaluation of pulmonary arteries limited due to respiratory motion. Filling defe cts are seen in the left lower lobe. No central pulmonary emboli. No evidence of filling defect to suggest pulmonary emboli. Tracheobronchial tree: Patent where visualized. Mediastinum and Meghan: No dominant adenopathy or fluid collection. Pulmonary parenchyma: Not well evaluated due to expiratory changes and respiratory motion. No consol idation or dominant measurable mass. Pleura: No effusion or pneumothorax. Heart: The heart is not dilated. No coronary artery calcifications are seen. No evidence of right hea rt strain. No pericardial effusion. Aorta: Thoracic aorta non-dilated. No aneurysm. No dissection. Upper abdomen: Unremarkable. Status post cholecystectomy. Bones: Unremarkable for age. Tubes, Catheters, and Lines: None IMPRESSION: Limited exam due to motion. Pulmonary emboli in left lower lobe branches. RADIATION DOSE DELIVERED: 524.39mGy.cm Total DLP DATA REPOSITORY: All CT scans at this facility are submitted to the National Radiology Data Registry (NRDR) Dose Index Registry (DIR) with the [employer] (ACR). RADIATION OPTIMIZATION: All CT scans at this facility use at least one of these dose optimization te chniques: automated exposure control; mA and/or kV adjustment per patient size (includes targeted exa ms where dose is matched to clinical indication); or iterative reconstruction.
[2022-05-17] MEDS: POTASSIUM CHLORIDE 20 MEQ/100 ML BAG 50 MEQ IVPB (12:34)
[2022-05-17] MEDS: Normal Saline Flush 10 ML SYR IVP ×2 (12:36→15:58)
[2022-05-17] MEDS: Normal Saline - Diluent 50 ML VIAL IJ (12:36)
[2022-05-17] MEDS: Omnipaque 350 MG/ML 100 ML BTL IJ (12:36)
[2022-05-17 12:44] LABS: Magnesium 1.8 mg/dL (1.8-2.4); Troponin I < 50 ng/L (<or=60)
[2022-05-17 12:46] LABS: ETHANOL BLOOD < 3.0 mg/dL (<10)
--- NOTE | 2022-05-17 13:00 | RT.EKG_ITS ---
APPROVED REPORT Exam: Resting ECG Reason for Exam: syncope Patient Location: E HR:112 bpm ECG Measurements Heart Rate 112 AXIS SC [id number] P [id number] QRSd 94 QRS -56 QT 407 T 48 QTc 556 Conclusion Poor baseline Left anterior fascicular block Low voltage, extremity and precordial leads.
--- NOTE | 2022-05-17 13:05 | DI.VRAD_ITS ---
Addendum created by Yeni Torre MD on 05/17/2022 1:07:44 PM EST: THIS REPORT CONTAINS FINDINGS THAT MAY BE CRITICAL TO PATIENT CARE. The findings were verbally communicated via telephone conference with KAYLA CATHERINE at 1:07 PM EST on 05/17/2022. The findings were acknowledged and understood. Initial report created on 05/17/2022 1:04:59 PM EST: PROCEDURE INFORMATION: Exam: CTA Chest With Contrast Exam date and time: 05/17/2022 12:46 PM Age: 42 years old Clinical indication: Other: Anterior cp, HX dvt TECHNIQUE: Imaging protocol: Computed tomographic angiography of the chest with contrast. 3D rendering (Not supervised by radiologist): MIP and/or 3D reconstructed images were created by the technologist. Radiation optimization: All CT scans at this facility use at least one of these dose optimization techniques: automated exposure control; mA and/or kV adjustment per patient size (includes targeted exams where dose is matched to clinical indication); or iterative reconstruction. Contrast material: OMNIPAQUE 350; Contrast volume: 100 ml; Contrast route: INTRAVENOUS (IV); COMPARISON: CT CHEST WO 05/15/2020 4:14 AM FINDINGS: Pulmonary arteries: Very small pulmonary emboli in the medial left lower lobe Filling defects in a branch of the descending left pulmonary artery. Series 5, image 247 and 255. Aorta: Unremarkable. No aortic aneurysm. No aortic dissection. Lungs: Minimal bibasilar atelectasis Pleural spaces: Unremarkable. No pneumothorax. No pleural effusion. Heart: No right ventricular dysfunction. Lymph nodes: Unremarkable. No enlarged lymph nodes. Bones/joints: Unremarkable. No acute fracture. Soft tissues: Unremarkable. IMPRESSION: 1. Very small pulmonary emboli in the medial left lower lobe Filling defects in a branch of the descending left pulmonary artery. Series 5, image 247 and 255. 2. No right ventricular dysfunction. Dictated and Authenticated by: Yeni Torre MD. Ordering:RAMO Marie MD
[2022-05-17 13:07] LABS: Salicylate < 2.8 mg/dL (<2.8)
[2022-05-17 13:08] LABS: Acetaminophen < 2 ug/mL (10-30)
--- NOTE | 2022-05-17 13:08 | DI.VRAD_ITS ---
PROCEDURE INFORMATION: Exam: CT Head Without Contrast Exam date and time: 05/17/2022 12:39 PM Age: 42 years old Clinical indication: Other: Unresponsive TECHNIQUE: Imaging protocol: Computed tomography of the head without contrast. Radiation optimization: All CT scans at this facility use at least one of these dose optimization techniques: automated exposure control; mA and/or kV adjustment per patient size (includes targeted exams where dose is matched to clinical indication); or iterative reconstruction. COMPARISON: CT HEAD WO 01/22/2022 10:05 PM FINDINGS: Brain: Ventricles, sulci are within normal limits. There is no evidence of acute hemorrhage, mass or shift. There is no evidence of an acute cortical or major vascular territory infarct. No abnormal extra-axial collections are identified. Cerebral ventricles: No significant ventricular enlargement/hydrocephalus. Paranasal sinuses: There is mild sinus mucoperiosteal thickening. There is no significant opacification or fluid level Mastoid air cells: No significant mastoid opacification Auditory system: There is artifact in association with the patient's ear piercings. Bones/joints: There is no acute bony abnormality Soft tissues: Subcutaneous soft tissues are unremarkable IMPRESSION: No acute findings on non-contrast CT of the head. Dictated and Authenticated by: Taina Mack MD. Ordering:RAMO Marie MD
--- NOTE | 2022-05-17 13:12 | DI.US_ITS ---
Exam(s) US EXTREMITY VENOUS BI EXAM: US EXTREMITY VENOUS BI CLINICAL HISTORY: BREAKTHROUGH PE. TECHNIQUE: Bilateral lower extremity venous ultrasound performed using grayscale, color-flow, and sp ectral Doppler analysis. COMPARISON: No exams were available for comparison FINDINGS: The right common femoral, femoral and popliteal veins demonstrate normal compressibility, augmentatio n, and color Doppler. The posterior tibial veins are patent. The left common femoral profundus femoral and proximal to mid femoral veins as well as greater saphen ous vein and posterior tibial veins are free of thrombus. There is a mixture of echogenic and non ec hogenic thrombus seen in the distal femoral and popliteal veins consistent with acute on chronic thro mbosis. The patient has a history of prior left DVT. IMPRESSION: Right: Negative for DVT Left: Mix of acute and chronic thrombosis seen in the distal femoral vein and popliteal vein. DATA REPOSITORY:
[2022-05-17 13:17] LABS: COVID-19 PCR Negative (Negative); Influenza A PCR Negative (Negative); Influenza B PCR Negative (Negative); RSV PCR Negative (Negative)
[2022-05-17] MEDS: HYDROmorphone 2 MG/ML SYR 0.5 MG IVP ×3 (13:21→20:06)
[2022-05-17 13:22] LABS: Source Nasopharynx
[2022-05-17 14:04] LABS: Bilirubin Negative (Negative); Blood Negative (Negative); Clarity Clear (Clear); Glucose Negative (Negative); Ketones Negative (Negative); Leukocyte Esterase Negative (Negative); Nitrite Negative (Negative); Urobilinogen 0.2 EU/dL (Up TO 0.2)
[2022-05-17 14:06] LABS: *AMPHETAMINES SCREEN URINE Negative (Negative); *BARBITURATES SCREEN URINE Negative (Negative); *BENZODIAZEPINES SCREEN URINE Negative (Negative); Cannabinoids THC Positive (Negative); Cocaine Screen,Urine Negative (Negative); METHADONE URINE SCREEN Negative (Negative); OPIATES URINE SCREEN Negative (Negative)
[2022-05-17 14:10] LABS: Tricyclic Antidepressants Negative (Negative)
--- NOTE | 2022-05-17 14:25 | DI.VRAD_ITS ---
Addendum created by Yeni Torre MD on 05/17/2022 2:26:24 PM EST: THIS REPORT CONTAINS FINDINGS THAT MAY BE CRITICAL TO PATIENT CARE. The findings were verbally communicated via telephone conference with KAYLA CATHERINE at 2:26 PM EST on 05/17/2022. The findings were acknowledged and understood. Initial report created on 05/17/2022 2:24:29 PM EST: PROCEDURE INFORMATION: Exam: US Duplex Lower Extremity Veins, Bilateral Exam date and time: 05/17/2022 1:41 PM Age: 42 years old Clinical indication: Other: CT demonstrating a pe; Patient HX: HX of dvts TECHNIQUE: Imaging protocol: Real-time duplex ultrasound of the bilateral extremities with 2-D valerio scale, color Doppler flow and spectral waveform analysis including responses to compression and other maneuvers (when performed) with image documentation. Complete exam focused on the lower extremity veins. COMPARISON: US LOWER EXTREMITY VENOUS LT 11/21/2019 7:55 AM FINDINGS: Right deep veins: Unremarkable. The common femoral, femoral, proximal profunda femoral and popliteal veins are patent without thrombus. Normal Doppler waveforms. Normal compressibility and/or augmentation response. Right superficial veins: Saphenofemoral junction is patent without thrombus. Left deep veins: Deep venous thrombosis in the distal femoral vein and popliteal vein. Some of the thrombus is echogenic and may reflect combination of acute and chronic. Left superficial veins: Saphenofemoral junction is patent without thrombus. Soft tissues: Unremarkable. . IMPRESSION: Deep venous thrombosis in the distal femoral vein and popliteal vein. Some of the thrombus is echogenic and may reflect combination of acute and chronic. Dictated and Authenticated by: Yeni Torre MD. Ordering:RAMO Marie MD
[2022-05-17 14:49] LABS: PTT Activated 25.2 sec (21.0-27.5)
[2022-05-17 15:25] LABS: Troponin I < 50 ng/L (<or=60)
[2022-05-17] MEDS: clonazePAM 1 MG TAB PO (15:58)
[2022-05-17] MEDS: Acetaminophen 325 MG TAB PO (15:58)
--- NOTE | 2022-05-17 16:12 | HPE_ITS ---
Date of service: 05/17/22 Time of Service: 16:12 Assessment and Plan Assessment and plan (1) Chronic anticoagulation: Status: Chronic Assessment and plan: Warfarin 15 mg daily - subtherapeutic INR Heparin gtt per recommendation of [facility] heme x 24 h - echo - call [facility] on Thursday05/19/2021 Check coags (2) History of DVT (deep vein thrombosis): Assessment and plan: Acute v chronic DVT left leg per US (3) Factor V Leiden mutation: Assessment and plan: as above (4) Hypokalemia: Status: Resolved Assessment and plan: K 2.6 - repleted in ED but patient then refused IV without central line - repleted orally-will monitor discussed with Dr Conklin (5) Discharge planning issues: Status: Acute Assessment and plan: Home w warfarin ? back to enoxaparin BID - will review with [facility] for recommendations after echo. History of Present Illness History of Present Illness Chief Complaint: Altered mental status; Narrative: This is a 42-year-old female patient with multiple comorbidities including recurrent venous thromboembolism in the setting of Factor V Leiden heterogeneity and elevated Factor VII, pulmonary embolism, hypothyroidism, liver lesion, chronic pain, ADHD, and anxiety, with history of intentional over dose, who presented to the [facility] ED today via EMS with complaints of being unresponsive at home.? She was given oxygen in the ambulance without any improvement; she was maintaining her own airway. Family reports that patient awoke normally and then stated she was having chest pain and slowly lowered herself to the ground.? She was found unresponsive by EMS, felt to be wheezing and given a breathing treatment enroute to the hospital.? Upon arrival to the ED, patient demonstrates sonorous respirations, and a depressed gag reflex.? The patient was placed on a hospital monitor, 2 peripheral IVs were obtained, she was given 2 doses of Narcan and became more responsive and alert. After response to Narcan, ABG was obtained showing pH 7.4, PCO2 32, PO2 96 and the patient was transitioned to room air successfully. Patient has an INR of 1.3 which is subtherapeutic for her with recent INR of > three.? Potassium is low 2.6 and supplemented in the emergency department.? Troponin is negative.? CT of the chest revealed very small pulmonary emboli in the medial left lower lobe.? No right ventricular dysfunction noted. Patient stated she had both high and low INR's recently.? She stated she was recently changed from twice daily Lovenox at home to once daily 80 mg in addition to the 15 mg of warfarin.? She is followed by hematology at the [facility].? Patient case was discussed with on- call hematology at [facility], Dr Gann by Dr. Owusu.? Dr Gann stated the patient should be placed on a heparin drip, this was started in the ED, and she requested that be maintained for 24 hours and then to consider increasing her warfarin.? She asked that the hematology team be contacted on Thursday or Thursday for repeat consultation.? Patient states she has had a chronic left lower extremity DVT in the past.? Today, repeat lower left extremity ultrasound showed a deep venous thrombosis in the distal femoral vein and popliteal vein. Some of the thrombus is echogenic and may reflect combination of acute and chronic. She is being observed on the medical floor on a heparin drip per recommendation of heme @ [facility]. Discussed with Dr Conklin Review of Systems All systems reviewed & are unremarkable except as noted in HPI and below PFSH All Active Problems (Updated 05/17/22 @ 20:00 by Tameka Arevalo NP) Discharge planning issues (Acute) Pulmonary embolism (Chronic) Anxiety (Chronic) DVT prophylaxis (Acute) Intractable nausea and vomiting (Acute) Enterocolitis (Acute) Gastroesophagitis (Acute) Leukocytosis, unspecified (Acute) Intractable nausea and vomiting (Acute) Chronic anticoagulation (Chronic) On coumadin Cyclic vomiting syndrome (Acute) Panic disorder (Chronic 03/21/16) Chronic back pain greater than 3 months duration (Chronic 12/29/14) ADHD (attention deficit hyperactivity disorder), 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) B12 deficiency (Chronic) Medical History Acute deep vein thrombosis (DVT) of left lower extremity Acute renal insufficiency Asthma (11/08/12) Candidiasis Cellulitis of left leg Chronic anticoagulation Cyst of fallopian tube Depression Factor V Leiden mutation GERD (gastroesophageal reflux disease) Hematuria History of DVT (deep vein thrombosis) Hypothyroidism Iatrogenic pulmonary embolism and infarction Intractable vomiting with nausea Left buttock abscess Left lower quadrant pain (01/27/12) Migraine headache Nephrolithiasis Normocytic anemia Orbital cellulitis on left Other enthesopathies, not elsewhere classified (03/21/16) Neck Preseptal cellulitis of left eye Primary hypercoagulable state Recurrent deep vein thrombosis (DVT) Right lower quadrant abdominal pain inflamed/ruptured fallopian tube on the right Thrombosis of arteries of lower extremity Vaginal candidiasis Surgical History Abdominal hysterectomy (~2009) 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) Arthroplasty of knee (~1999) left Bilateral salpingectomy with oophorectomy (~2008) Cervical Conization/LEEP LEEP 2003 CONE BX 2003 Cholecystectomy History of arthroscopy of knee S/P appendectomy (12/24/17) Dr Veliz - Car [place] and car excision of R fallopian tube remnant Status post cholecystectomy Status post LEEP (loop electrosurgical excision procedure) of cervix THUMB RECONSTRUCTION left; in childhood Social History Smoking/Tobacco Use Status: Never Smoking risk assessment performed?: Yes Alcohol Intake: former Drug use: Daily Substance use type: marijuana Current gender identity: female Do you feel safe at home: Yes Do you feel safe in your relationship?: Yes Additional Social history: Patient is and with one child. Meds Allergies and Home Medications Allergies Allergy/AdvReac Type Severity Reaction Status Date / Time aripiprazole [From Abilify] Allergy Severe Rash, hives Verified 05/17/22 14:35 doxycycline Allergy Severe Anaphylaxsi Verified 05/17/22 14:35 s levetiracetam [From Keppra] Allergy Severe RASH/HIVES Verified 05/17/22 14:35 sulfamethoxazole Allergy Severe Hives Verified 05/17/22 14:35 venom-honey bee Allergy Severe unknown Verified 05/17/22 14:35 Penicillins Allergy Intermediate Skin Rash Verified 05/17/22 14:35 chlorhexidine Allergy Unknown unknown Verified 05/17/22 14:35 Sulfa (Sulfonamide Allergy Verified 05/17/22 14:35 Antibiotics) mold AdvReac Severe Wheezing Verified 05/17/22 14:35 oxycodone [Oxycodone] AdvReac Severe vomits Verified 05/17/22 14:35 paroxetine AdvReac Severe Irritability Verified 05/17/22 14:35 and anger dicloxacillin [Dicloxacillin] AdvReac Mild Nausea, GI Verified 05/17/22 14:35 upset gabapentin AdvReac Mild hives Verified 05/17/22 14:35 prednisone AdvReac Agitation Verified 05/17/22 14:35 trazodone AdvReac shortness Verified 05/17/22 14:35 of breath verapamil [Verapamil] AdvReac Worsening Verified 05/17/22 14:35 migraine nuts Allergy Severe Anaphylaxsi Uncoded 05/17/22 14:35 s Home Medications Medication Instructions Recorded Confirmed Type calcium carb,cit 300 mg-D3 200 1 ea PO BID 11/09/12 05/17/22 History unit-min no.34-genistein 13.5 mg tablet (Citracal Plus Bone Density Builder) cyproheptadine 4 mg tablet 4 mg PO HS #90 tab-caps 06/04/16 05/17/22 History naloxone 4 mg/actuation nasal 4 mg NS DAILY PRN PRN #2 sprays 12/08/16 05/17/22 Rx spray (Narcan) triamcinolone acetonide 0.1 % 1 applic topical BID PRN eczema 09/05/19 05/17/22 Rx topical cream #60 grams methylphenidate HCl 20 mg tablet 20 mg PO TID #84 tab-caps 10/20/19 05/17/22 Rx diphenhydramine HCl 25 mg tablet 100 mg PO HS 12/13/19 05/17/22 History (Benadryl Allergy) sucralfate 1 gram tablet 1 g PO AC & HS #120 tabs 12/30/19 05/17/22 Rx clotrimazole-betamethasone 1 1 applic topical BID PRN rash #45 02/22/20 05/17/22 Rx %-0.05 % topical cream grams epinephrine 0.3 mg/0.3 mL 0.3 mg (0.3 mL) IM ONCE #1 ea 02/22/20 05/17/22 Rx injection, auto-injector (EpiPen 2-Nino) fluticasone propionate 220 2 inh inhalation BID ##3 02/22/20 05/17/22 Rx mcg/actuation HFA aerosol inhaler (Flovent HFA) omeprazole 40 mg capsule,delayed 40 mg PO DAILY GERD #90 caps 02/22/20 05/17/22 Rx release albuterol sulfate 90 mcg/actuation 2 puff inhalation Q6H PRN ##3 03/07/20 05/17/22 Rx aerosol inhaler (ProAir HFA) ondansetron HCl 8 mg tablet 8 mg PO BID PRN nausea and 03/07/20 05/17/22 Rx vomiting #20 tabs sumatriptan succinate 6 mg/0.5 mL 6 mg (0.5 mL) subcut ONCE PRN 03/07/20 05/17/22 Rx subcutaneous pen injector migraine headache #90 SYRGS clonazepam 1 mg tablet 1 mg PO TID PRN anxiety #90 tabs 03/20/20 05/17/22 Rx acidophilus 25 million 1 tab PO DAILY 08/16/20 05/17/22 History cell-pectin, citrus 100 mg tablet cetirizine 10 mg capsule (Zyrtec) 10 mg PO DAILY 08/16/20 05/17/22 History ondansetron HCl 4 mg tablet 4 mg PO DAILY PRN 08/16/20 05/17/22 History (Zofran) polyethylene glycol 3350 17 gram 17 g PO DAILY PRN 08/16/20 05/17/22 History oral powder packet (Miralax) topiramate 200 mg tablet (Topamax) 400 mg PO DAILY 08/16/20 05/17/22 History albuterol sulfate 2.5 mg/3 mL 2.5 mg inhalation TID 05/03/21 05/17/22 History (0.083 %) solution for nebulization ascorbic acid (vitamin C) 500 mg 500 mg PO BID #60 tabs 05/04/21 05/17/22 Rx tablet (Vitamin C) rvtglhihsi-rqtzinwcajage-cnshwsbp 1 cap PO Q4H PRN #60 caps 05/04/21 05/17/22 Rx 50 mg-300 mg-40 mg capsule (Fioricet) cholecalciferol (vitamin D3) 50 50 mcg PO DAILY #30 caps 05/04/21 05/17/22 Rx mcg (2,000 unit) capsule (Vitamin D3) melatonin 3 mg tablet 6 mg PO HS #30 tabs 05/04/21 05/17/22 Rx prochlorperazine maleate 10 mg 10 mg PO TID PRN #60 tabs 05/04/21 05/17/22 Rx tablet (Compazine) promethazine 25 mg tablet 25 mg PO TID PRN #60 tabs 05/04/21 05/17/22 Rx enoxaparin 80 mg/0.8 mL 80 mg (0.8 mL) subcut Q12H #24 mL 11/15/21 05/17/22 Rx subcutaneous syringe (Lovenox) warfarin 5 mg tablet 15 mg PO DAILY #30 tabs 11/15/21 05/17/22 Rx budesonide-formoterol HFA 160 1 inh inhalation QDAY 01/22/22 05/17/22 History mcg-4.5 mcg/actuation aerosol inhaler (Symbicort) inhalational spacing device 05/17/22 05/17/22 History levothyroxine 125 mcg tablet 125 mcg PO HS 05/17/22 05/17/22 History Exam Narrative Exam Narrative: GEN: Awake, alert, tearful HEAD: Normocephalic, atraumatic ENT: Mucous membranes moist, External ear exam unremarkable EYES: PERRL, EOMI NECK: Full ROM, no ISATU, no menigismus CHEST/RESP: Nontender, few rhonchi scattered bilaterally CARDIOVASCULAR: RRR, no murmur, rub bradly. 2+ Rad pulse bilateral ABDOMEN: Soft, nontender, no mass. +Bowel sounds EXT: Full ROM, no edema, no rash Neuro: Awake, alert, moves all extremities Psych: Flat affect, tearful Results Labs Result diagrams: 05/18/22 04:50 05/18/22 04:50 Labs: Laboratory Results - last 24 hr 05/17/22 05/17/22 05/17/22 11:45 11:45 11:45 WBC 4.82 RBC 4.38 Hgb 12.3 Hct 36.6 MCV 84 MCH 28.1 MCHC 33.6 RDW 13.7 Plt Count 188 MPV 11.0 Immature Gran % 0.2 Neutrophils % 46.7 Band Neutrophils % Lymphocytes % 36.1 Atypical Lymphs % Monocytes % 8.9 Eosinophils % 7.9 Basophils % 0.2 Metamyelocytes % Myelocytes % Promyelocytes % Other Cells % Nucleated RBC % 0.0 Absolute Neutrophils 2.25 Absolute Lymphocytes 1.74 Absolute Monocytes 0.43 Absolute Eosinophils 0.38 Absolute Basophils 0.01 RBC Morphology Polychromasia Hypochromasia Poikilocytosis Basophilic Stippling Anisocytosis Microcytosis Macrocytosis Spherocytes Tear Drop Cells Ovalocytes Stomatocytes Brizuela-Hallock Bodies Alicia Cells/Echinocytes Acanthocytes (Spur) Schistocytes PT 12.7 H INR 1.3 H APTT ABG Sample Site ABG pH ABG pCO2 ABG pO2 ABG HCO3 ABG Total CO2 ABG O2 Saturation ABG Base Excess FiO2 Sodium 140 Potassium 2.6 L* Chloride 105 Carbon Dioxide 27.9 Anion Gap 7.1 BUN 8 Creatinine 1.0 Est GFR (CKD-EPI 2020) 71.69 Glucose 150 H Calcium 8.7 Magnesium Total Bilirubin 0.5 AST 19 ALT 19 Alkaline Phosphatase 50 Troponin I Total Protein 6.7 Albumin 4.0 Urine Color Urine Clarity Urine pH Ur Specific [place] Urine Protein Urine Ketones Urine Blood Urine Nitrite Urine Bilirubin Urine Urobilinogen Ur Leukocyte Esterase Urine Glucose Salicylates Urine Opiates Screen Urine Methadone Screen Acetaminophen Ur Barbiturates Screen Ur Tricyclics Screen Ur Amphetamines Screen U Benzodiazepines Scrn Urine Cocaine Screen Ur THC Screen Ethyl Alcohol COVID-19 Source SARS-CoV-2 (PCR) Influenza Type A (PCR) Influenza Type B (PCR) RSV (PCR) 05/17/22 05/17/22 05/17/22 11:50 11:50 12:10 WBC Cancelled RBC Cancelled Hgb Cancelled Hct Cancelled MCV Cancelled MCH Cancelled MCHC Cancelled RDW Cancelled Plt Count Cancelled MPV Cancelled Immature Gran % Cancelled Neutrophils % Cancelled Band Neutrophils % Cancelled Lymphocytes % Cancelled Atypical Lymphs % Cancelled Monocytes % Cancelled Eosinophils % Cancelled Basophils % Cancelled Metamyelocytes % Cancelled Myelocytes % Cancelled Promyelocytes % Cancelled Other Cells % Cancelled Nucleated RBC % Cancelled Absolute Neutrophils Cancelled Absolute Lymphocytes Cancelled Absolute Monocytes Cancelled Absolute Eosinophils Cancelled Absolute Basophils Cancelled RBC Morphology Cancelled Polychromasia Cancelled Hypochromasia Cancelled Poikilocytosis Cancelled Basophilic Stippling Cancelled Anisocytosis Cancelled Microcytosis Cancelled Macrocytosis Cancelled Spherocytes Cancelled Tear Drop Cells Cancelled Ovalocytes Cancelled Stomatocytes Cancelled Brizuela-Hallock Bodies Cancelled Alicia Cells/Echinocytes Cancelled Acanthocytes (Spur) Cancelled Schistocytes Cancelled PT INR APTT ABG Sample Site Right Radial ABG pH 7.45 ABG pCO2 32 L ABG pO2 96 ABG HCO3 22 ABG Total CO2 20 L ABG O2 Saturation 98 ABG Base Excess -2 FiO2 ROOM AIR Sodium Cancelled Potassium Cancelled Chloride Cancelled Carbon Dioxide Cancelled Anion Gap Cancelled BUN Cancelled Creatinine Cancelled Est GFR (CKD-EPI 2020) Cancelled Glucose Cancelled Calcium Cancelled Magnesium 1.8 Total Bilirubin Cancelled AST Cancelled ALT Cancelled Alkaline Phosphatase Cancelled Troponin I < 50 Total Protein Cancelled Albumin Cancelled Urine Color Urine Clarity Urine pH Ur Specific [place] Urine Protein Urine Ketones Urine Blood Urine Nitrite Urine Bilirubin Urine Urobilinogen Ur Leukocyte Esterase Urine Glucose Salicylates Urine Opiates Screen Urine Methadone Screen Acetaminophen Ur Barbiturates Screen Ur Tricyclics Screen Ur Amphetamines Screen U Benzodiazepines Scrn Urine Cocaine Screen Ur THC Screen Ethyl Alcohol < 3.0 COVID-19 Source SARS-CoV-2 (PCR) Influenza Type A (PCR) Influenza Type B (PCR) RSV (PCR) 05/17/22 05/17/22 05/17/22 12:26 12:26 13:00 WBC RBC Hgb Hct MCV MCH MCHC RDW Plt Count MPV Immature Gran % Neutrophils % Band Neutrophils % Lymphocytes % Atypical Lymphs % Monocytes % Eosinophils % Basophils % Metamyelocytes % Myelocytes % Promyelocytes % Other Cells % Nucleated RBC % Absolute Neutrophils Absolute Lymphocytes Absolute Monocytes Absolute Eosinophils Absolute Basophils RBC Morphology Polychromasia Hypochromasia Poikilocytosis Basophilic Stippling Anisocytosis Microcytosis Macrocytosis Spherocytes Tear Drop Cells Ovalocytes Stomatocytes Brizuela-Hallock Bodies Alicia Cells/Echinocytes Acanthocytes (Spur) Schistocytes PT INR APTT ABG Sample Site ABG pH ABG pCO2 ABG pO2 ABG HCO3 ABG Total CO2 ABG O2 Saturation ABG Base Excess FiO2 Sodium Potassium Chloride Carbon Dioxide Anion Gap BUN Creatinine Est GFR (CKD-EPI 2020) Glucose Calcium Magnesium Total Bilirubin AST ALT Alkaline Phosphatase Troponin I Total Protein Albumin Urine Color Urine Clarity Urine pH Ur Specific [place] Urine Protein Urine Ketones Urine Blood Urine Nitrite Urine Bilirubin Urine Urobilinogen Ur Leukocyte Esterase Urine Glucose Salicylates < 2.8 Urine Opiates Screen Negative Urine Methadone Screen Negative Acetaminophen < 2 Ur Barbiturates Screen Negative Ur Tricyclics Screen Negative Ur Amphetamines Screen Negative U Benzodiazepines Scrn Negative Urine Cocaine Screen Negative Ur THC Screen Positive A Ethyl Alcohol COVID-19 Source Nasopharynx SARS-CoV-2 (PCR) Negative Influenza Type A (PCR) Negative Influenza Type B (PCR) Negative RSV (PCR) Negative 05/17/22 05/17/22 05/17/22 13:00 14:23 14:53 WBC RBC Hgb Hct MCV MCH MCHC RDW Plt Count MPV Immature Gran % Neutrophils % Band Neutrophils % Lymphocytes % Atypical Lymphs % Monocytes % Eosinophils % Basophils % Metamyelocytes % Myelocytes % Promyelocytes % Other Cells % Nucleated RBC % Absolute Neutrophils Absolute Lymphocytes Absolute Monocytes Absolute Eosinophils Absolute Basophils RBC Morphology Polychromasia Hypochromasia Poikilocytosis Basophilic Stippling Anisocytosis Microcytosis Macrocytosis Spherocytes Tear Drop Cells Ovalocytes Stomatocytes Brizuela-Hallock Bodies Alicia Cells/Echinocytes Acanthocytes (Spur) Schistocytes PT INR APTT 25.2 ABG Sample Site ABG pH ABG pCO2 ABG pO2 ABG HCO3 ABG Total CO2 ABG O2 Saturation ABG Base Excess FiO2 Sodium Potassium Chloride Carbon Dioxide Anion Gap BUN Creatinine Est GFR (CKD-EPI 2020) Glucose Calcium Magnesium Total Bilirubin AST ALT Alkaline Phosphatase Troponin I < 50 Total Protein Albumin Urine Color Yellow Urine Clarity Clear Urine pH 7.0 Ur Specific [place] 1.020 Urine Protein Negative Urine Ketones Negative Urine Blood Negative Urine Nitrite Negative Urine Bilirubin Negative Urine Urobilinogen 0.2 Ur Leukocyte Esterase Negative Urine Glucose Negative Salicylates Urine Opiates Screen Urine Methadone Screen Acetaminophen Ur Barbiturates Screen Ur Tricyclics Screen Ur Amphetamines Screen U Benzodiazepines Scrn Urine Cocaine Screen Ur THC Screen Ethyl Alcohol COVID-19 Source SARS-CoV-2 (PCR) Influenza Type A (PCR) Influenza Type B (PCR) RSV (PCR) 05/17/22 18:25 WBC RBC Hgb Hct MCV MCH MCHC RDW Plt Count MPV Immature Gran % Neutrophils % Band Neutrophils % Lymphocytes % Atypical Lymphs % Monocytes % Eosinophils % Basophils % Metamyelocytes % Myelocytes % Promyelocytes % Other Cells % Nucleated RBC % Absolute Neutrophils Absolute Lymphocytes Absolute Monocytes Absolute Eosinophils Absolute Basophils RBC Morphology Polychromasia Hypochromasia Poikilocytosis Basophilic Stippling Anisocytosis Microcytosis Macrocytosis Spherocytes Tear Drop Cells Ovalocytes Stomatocytes Brizuela-Hallock Bodies [place] Cells/Echinocytes Acanthocytes (Spur) Schistocytes PT INR APTT Cancelled ABG Sample Site ABG pH ABG pCO2 ABG pO2 ABG HCO3 ABG Total CO2 ABG O2 Saturation ABG Base Excess FiO2 Sodium Potassium Chloride Carbon Dioxide Anion Gap BUN Creatinine Est GFR (CKD-EPI 2020) Glucose Calcium Magnesium Total Bilirubin AST ALT Alkaline Phosphatase Troponin I Total Protein Albumin Urine Color Urine Clarity Urine pH Ur Specific [place] Urine Protein Urine Ketones Urine Blood Urine Nitrite Urine Bilirubin Urine Urobilinogen Ur Leukocyte Esterase Urine Glucose Salicylates Urine Opiates Screen Urine Methadone Screen Acetaminophen Ur Barbiturates Screen Ur Tricyclics Screen Ur Amphetamines Screen U Benzodiazepines Scrn Urine Cocaine Screen Ur THC Screen Ethyl Alcohol COVID-19 Source SARS-CoV-2 (PCR) Influenza Type A (PCR) Influenza Type B (PCR) RSV (PCR) Last Vital Signs Temp 37.1 C 05/17/22 15:24 Pulse 74 05/17/22 15:24 Resp 18 05/17/22 15:24 BP 143/86 H 05/17/22 16:02 Pulse Ox 99 05/17/22 15:24 Time Spent Time spent with Patient: 40-54 minutes Time was spent: preparing to see the patient(eg.review tests), obtaining and/or reviewing separately otained hiistory, ordering medications,tests, procedures, referring, communicating with other health customer care voice consultant, indepentently interpreting results, counseling the patient and care coordination
--- NOTE | 2022-05-17 16:47 | TELEP.MEDR_ITS ---
Date of service: 05/17/22 Time of Service: 16:47 Telepharmacy Home Med Rec Allergies Allergies: aripiprazole [From Abilify] Allergy (Severe, Verified 05/17/22 14:35) Rash, hives doxycycline Allergy (Severe, Verified 05/17/22 14:35) Anaphylaxsis levetiracetam [From Keppra] Allergy (Severe, Verified 05/17/22 14:35) RASH/HIVES sulfamethoxazole Allergy (Severe, Verified 05/17/22 14:35) Hives venom-honey bee Allergy (Severe, Verified 05/17/22 14:35) unknown Penicillins Allergy (Intermediate, Verified 05/17/22 14:35) Skin Rash chlorhexidine Allergy (Unknown, Verified 05/17/22 14:35) unknown Sulfa (Sulfonamide Antibiotics) Allergy (Verified 05/17/22 14:35) mold Adverse Reaction (Severe, Verified 05/17/22 14:35) Wheezing oxycodone [Oxycodone] Adverse Reaction (Severe, Verified 05/17/22 14:35) vomits paroxetine Adverse Reaction (Severe, Verified 05/17/22 14:35) Irritability and anger dicloxacillin [Dicloxacillin] Adverse Reaction (Mild, Verified 05/17/22 14:35) Nausea, GI upset gabapentin Adverse Reaction (Mild, Verified 05/17/22 14:35) hives prednisone Adverse Reaction (Verified 05/17/22 14:35) Agitation trazodone Adverse Reaction (Verified 05/17/22 14:35) shortness of breath verapamil [Verapamil] Adverse Reaction (Verified 05/17/22 14:35) Worsening migraine nuts Allergy (Severe, Uncoded 05/17/22 14:35) Anaphylaxsis Interview Person Interviewed: Patient Quality Quality of Interview/Accuracy of Medication List: Fair Sources Sources used to compile medication list: [employer] Medication List and [employer] Changes made to Home Medication List: ADDITIONS: none DELETIONS: none CHANGES: Levothyroxine is taken at bedtime not in the morning Additional Notes Additional Notes: This patient confirmed she takes multiple anti-nausea medications including Proclorperazine, Compazine and two strengths of Ondansetron Recommended Changes Recommended Changes(reason for recommendation): None Attestation: The home medication list is now updated to the best of my knowledge and is ready to be reconciled by the provider. Please contact the TelePharmacy Medication Reconciliation Pharmacist at for any questions.
[2022-05-17] MEDS: Potassium Chloride 20 MEQ TABCR 40 MEQ PO ×2 (16:53→20:04)
[2022-05-17] MEDS: SUMAtriptan 6 MG/0.5 ML VIAL SC (18:28)
[2022-05-17] MEDS: Topiramate 100 MG TAB 400 MG PO (18:49)
[2022-05-17] MEDS: Warfarin 5 MG TAB 15 MG PO (20:04)
[2022-05-17] MEDS: Albuterol 2.5 MG/3 ML INH SOLN VIAL IH (20:06)
[2022-05-17 21:30] LABS: PTT Activated > 155.0 sec (21.0-27.5)
[2022-05-17] MEDS: Levothyroxine 125 MCG TAB PO (22:15)
[2022-05-17] MEDS: Mometasone 220 MCG 14 DOSE INHALER 4 PUFF IH (22:15)
[2022-05-17] MEDS: Cyproheptadine 4 MG TAB PO (23:14)
[2022-05-17] MEDS: diphenhydrAMINE 25 MG CAP 100 MG PO (23:14)
[2022-05-17] MEDS: Melatonin 3 MG TAB 6 MG PO (23:25)
[2022-05-18] VITALS (10 sets, daily range): BP systolic 111–136; BP diastolic 69–86; PULSE 68–86; RESP 1–20; TEMP 36.1–37.3; O2SAT 99–100
[2022-05-18] MEDS: clonazePAM 1 MG TAB PO ×2 (02:00→10:25)
[2022-05-18] MEDS: HYDROmorphone 2 MG/ML SYR 0.5 MG IVP ×4 (02:05→20:28)
[2022-05-18 04:58] LABS: HCT 35.8 % (36.0-46.0); HGB 11.8 g/dL (11.2-15.7); MCV 85 fL (80-95); MPV 10.5 fL (8.0-11.0); Platelet Count 212 10^3/uL (130-400); RBC 4.22 10^6/uL (3.93-5.22); RDW 13.9 % (11.7-14.6); RDW-SD 43.4 fL; WBC 7.23 10^3/uL (4.4-10.8)
[2022-05-18 05:12] LABS: ALT 17 U/L (14-59); AST 16 U/L (15-37); Albumin 3.5 g/dL (3.4-5.0); Alkaline Phosphatase 45 U/L (46-116); BUN 9 mg/dL (7-18); Bilirubin, Total 0.4 mg/dL (0.2-1.0); Calcium 8.7 mg/dL (8.5-10.1); Chloride 109 mmol/L (98-107); Estimated GFR 71.69 (mL/min/1.73m2); Glucose 99 mg/dL (74-106); Magnesium 1.8 mg/dL (1.8-2.4); Potassium 4.1 mmol/L (3.5-5.1); Sodium 142 mmol/L (136-145); Total Protein 6.2 g/dL (6.4-8.2)
[2022-05-18 05:14] LABS: INR 1.3 (0.9-1.1); Prothrombin Time 12.6 sec (9.3-11.0)
[2022-05-18 05:25] LABS: PTT Activated 85.8 sec (21.0-27.5)
[2022-05-18] MEDS: Potassium Chloride 20 MEQ TABCR 40 MEQ PO (08:07)
[2022-05-18] MEDS: Omeprazole 20 MG CAPCR 40 MG PO (08:09)
[2022-05-18] MEDS: Topiramate 100 MG TAB 400 MG PO (08:09)
[2022-05-18] MEDS: Normal Saline Flush 10 ML SYR IVP ×6 (08:10→22:51)
[2022-05-18] MEDS: Albuterol 2.5 MG/3 ML INH SOLN VIAL IH ×3 (08:17→20:13)
[2022-05-18] MEDS: Mometasone 220 MCG 14 DOSE INHALER 4 PUFF IH ×2 (08:24→20:27)
--- NOTE | 2022-05-18 09:09 | PDOC.CMIN ---
- If Service Date Differs Date of service: 05/18/22 Time of Service: 09:09 Care Management Initial Assess REASON FOR HOSPITALIZATION:: Acute PE, Hypokalemia PAST MEDICAL HISTORY/PAST SURGICAL HISTORY:: All Active Problems (Updated 05/17/22 @ 20:00 by Tameka Arevalo NP). Discharge planning issues (Acute). Pulmonary embolism (Chronic). Anxiety (Chronic). DVT prophylaxis (Acute). Intractable nausea and vomiting (Acute). Enterocolitis (Acute). Gastroesophagitis (Acute). Leukocytosis, unspecified (Acute). Intractable nausea and vomiting (Acute). Chronic anticoagulation (Chronic). On coumadin. Cyclic vomiting syndrome (Acute). Panic disorder (Chronic 03/21/16). Chronic back pain greater than 3 months duration (Chronic 12/29/14). 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 Cannabis abuse with cannabis-induced disorder (Chronic). B12 deficiency (Chronic). Medical History . Acute deep vein thrombosis (DVT) of left lower extremity. Acute renal insufficiency. Asthma (11/08/12). Candidiasis. Cellulitis of left leg. Chronic anticoagulation. Cyst of fallopian tube. Depression. Factor V Leiden mutation. GERD (gastroesophageal reflux disease). Hematuria. History of DVT (deep vein thrombosis). Hypothyroidism. Iatrogenic pulmonary embolism and infarction. Intractable vomiting with nausea. Left buttock abscess. Left lower quadrant pain (01/27/12). Migraine headache. Nephrolithiasis. Normocytic anemia. Orbital cellulitis on left. Other enthesopathies, not elsewhere classified (03/21/16). Neck. Preseptal cellulitis of left eye. Primary hypercoagulable state. Recurrent deep vein thrombosis (DVT). Right lower quadrant abdominal pain. inflamed/ruptured fallopian tube on the right. Thrombosis of arteries of lower extremity. Vaginal candidiasis. Surgical History . Abdominal hysterectomy (~2009). 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 Arthroplasty of knee (~1999). left. Bilateral salpingectomy with oophorectomy (~2008). Cervical Conization/LEEP. LEEP 2002. CONE BX 2002. Cholecystectomy. History of arthroscopy of knee. S/P appendectomy (12/24/17). Dr Veliz - Lap appy and lap excision of R fallopian tube remnant. Status post cholecystectomy. Status post LEEP (loop electrosurgical excision procedure) of cervix. THUMB RECONSTRUCTION. left; in childhood PREVIOUS FUNCTIONAL STATUS/SOCIAL/FAMILY SUPPORTS:: Suzie resides in [facility], her son Braulio resides with her, but spends most of him time at his significant other's home. Dionna was recently and is going through seperation, she identifies this as an unhealthy relationship and reports previously filing a restraining order on Glory, her . Her main support is her friend Ba at this time. Suzie is independent on baseline, through struggles with chronic pain and medical issues and is deemed disabled, with SSDI support. CURRENT FUNCTIONAL STATUS:: Suzie is lying in bed when CM met with her. She is awake and able to engage in conversation. Suzie c/o increased anxiety, worse over night. CM notified her Primary RN. ADVANCE DIRECTIVES:: On file, [facility] is gricel Ramsey Has patient been provided with info about the portal/API?: Yes Did the patient sign up for the portal?: Yes (Prior to admission) CODE STATUS:: Full Code INSURANCE COVERAGE / FINANCIAL ISSUES:: Medicare. Medicaid CURRENT HOME/COMMUNITY SERVICES/EQUIPMENT:: Therapist. INR device. PRIMARY CARE PHYSICIAN:: Patrica Lopez PATIENT/FAMILY EDUCATION NEEDS:: Review discharge instructions, discuss Ask me Three TRANSPORTATION:: Via private vehicle with family PLAN:: Suzie is being closely monitored and treated. Per provider, pt is currently awaiting an ECHO, will review with [facility] for recommendations after echo. Anticipate, discharge home with no services when medically ready. CM will continue to support pt and her discharge planning considerations.
[2022-05-18] MEDS: SUMAtriptan 6 MG/0.5 ML VIAL SC (11:24)
[2022-05-18] MEDS: LORazepam 2 MG/ML VIAL 1 MG IV ×3 (11:24→20:25)
[2022-05-18] MEDS: HYDROmorphone 2 MG/ML SYR 1 MG IVP (11:25)
[2022-05-18 12:02] LABS: PTT Activated 61.9 sec (21.0-27.5)
[2022-05-18] MEDS: Acetaminophen 325 MG TAB PO (13:31)
--- NOTE | 2022-05-18 14:51 | PGE_ITS ---
Date of Service Date of service: 05/18/22 Time of Service: 14:51 Assessment and Plan Assessment and plan (1) Pulmonary embolism: Status: Acute Assessment and plan: Small PE - anticoagulated chronically - will adjust per [facility] recommendations - continue Heparin drip and warfarin Echo ordered 05/19/22 (2) Chronic anticoagulation: Status: Chronic Assessment and plan: Warfarin 15 mg daily - subtherapeutic INR - 1.3 Heparin gtt per recommendation of [facility] heme x 24 h - echo - call [facility] on Thursday05/19/2021 Check coags per Heparin/Warfarin protocol - adjust accordingly (3) Migraine headache: Assessment and plan: Miegraine headache usual - no new symptoms, given sumatriptin x 2 without relief; she is receiving dilaudid for her leg pain and she states that is not helping her headache; she states ketorelac helps; ketorelac ordered and she did have moderate relief and is feeling better, no nausea, eating ok Encourage quietness, dark room. Qualifiers: Migraine type: without aura Status migrainosus presence: without status migrainosus Intractability: not intractable Qualified Code(s): G43.009 - Migraine without aura, not intractable, without status migrainosus (4) Anxiety: Status: Chronic Assessment and plan: Chronic, however acutely exacerbated with hospitalization shes reports I almost dies and I'm very anxious She states lorazepam works better for her than clonazepam when she is hospitalized - clonazepam held and lorazepam ordered. (5) History of DVT (deep vein thrombosis): Assessment and plan: Acute v chronic DVT left leg per US Pain related to this improves and is tolerable with Dilaudid IV (6) Factor V Leiden mutation: Assessment and plan: as above (7) Hypokalemia: Status: Resolved Assessment and plan: Resolved - today is 4.1 - will monitor, continue oral potassium Telemetry - normal sinus ~ 70s (8) Discharge planning issues: Status: Acute Assessment and plan: Home w warfarin ? resumption of enoxaparin BID - will review with [facility] for recommendations after echo. Discussed with Dr Conklin Subjective Subjective Patient reports: still having pain, tolerating a regular diet, voiding w/o difficulty, bowel movement and nausea (intermittant); denies shortness of breath Interval history since last seen: Suzie states she did not sleep well and she was feeling very anxious. She is complaining of increased left leg pain. She states she is very upset about almost dying yesterday. Exam Narrative Exam Narrative: GEN: Awake, alert, tearful HEAD: Normocephalic, atraumatic ENT: Mucous membranes moist, External ear exam unremarkable EYES: PERRL, EOMI NECK: Full ROM, no ISATU, no menigismus CHEST/RESP: Nontender, few rhonchi scattered bilaterally CARDIOVASCULAR: RRR, no murmur, rub bradly. 2+ Rad pulse bilateral ABDOMEN: Soft, nontender, no mass. +Bowel sounds EXT: Full ROM, no edema, no rash Neuro: Awake, alert, moves all extremities Psych: Flat affect, tearful Objective Last Vital Signs Temp 36.8 C 05/18/22 11:27 Pulse 71 05/18/22 11:27 Resp 16 05/18/22 11:27 BP 131/82 05/18/22 11:27 Pulse Ox 100 05/18/22 11:27 Laboratory Results - last 24 hr 05/17/22 05/17/22 05/17/22 11:50 14:23 14:53 WBC Cancelled RBC Cancelled Hgb Cancelled Hct Cancelled MCV Cancelled MCH Cancelled MCHC Cancelled RDW Cancelled Plt Count Cancelled MPV Cancelled Immature Gran % Cancelled Neutrophils % Cancelled Band Neutrophils % Cancelled Lymphocytes % Cancelled Atypical Lymphs % Cancelled Monocytes % Cancelled Eosinophils % Cancelled Basophils % Cancelled Metamyelocytes % Cancelled Myelocytes % Cancelled Promyelocytes % Cancelled Other Cells % Cancelled Nucleated RBC % Cancelled Absolute Neutrophils Cancelled Absolute Lymphocytes Cancelled Absolute Monocytes Cancelled Absolute Eosinophils Cancelled Absolute Basophils Cancelled RBC Morphology Cancelled Polychromasia Cancelled Hypochromasia Cancelled Poikilocytosis Cancelled Basophilic Stippling Cancelled Anisocytosis Cancelled Microcytosis Cancelled Macrocytosis Cancelled Spherocytes Cancelled Tear Drop Cells Cancelled Ovalocytes Cancelled Stomatocytes Cancelled [place]riz[place]-Zena Bodies Cancelled [place] Cells/Echinocytes Cancelled Acanthocytes (Spur) Cancelled Schistocytes Cancelled PT INR APTT 25.2 Sodium Potassium Chloride Carbon Dioxide Anion Gap BUN Creatinine Est GFR (CKD-EPI 2020) Glucose Calcium Magnesium Total Bilirubin AST ALT Alkaline Phosphatase Troponin I < 50 Total Protein Albumin 05/17/22 05/17/22 05/18/22 18:25 20:30 04:50 WBC RBC Hgb Hct MCV MCH MCHC RDW Plt Count MPV Immature Gran % Neutrophils % Band Neutrophils % Lymphocytes % Atypical Lymphs % Monocytes % Eosinophils % Basophils % Metamyelocytes % Myelocytes % Promyelocytes % Other Cells % Nucleated RBC % Absolute Neutrophils Absolute Lymphocytes Absolute Monocytes Absolute Eosinophils Absolute Basophils RBC Morphology Polychromasia Hypochromasia Poikilocytosis Basophilic Stippling Anisocytosis Microcytosis Macrocytosis Spherocytes Tear Drop Cells Ovalocytes Stomatocytes Brizuela-Zena Bodies Alicia Cells/Echinocytes Acanthocytes (Spur) Schistocytes PT INR APTT Cancelled > 155.0 H* Cancelled Sodium Potassium Chloride Carbon Dioxide Anion Gap BUN Creatinine Est GFR (CKD-EPI 2020) Glucose Calcium Magnesium Total Bilirubin AST ALT Alkaline Phosphatase Troponin I Total Protein Albumin 05/18/22 05/18/22 05/18/22 04:50 04:50 04:50 WBC 7.23 RBC 4.22 Hgb 11.8 Hct 35.8 L MCV 85 MCH 28.0 MCHC 33.0 RDW 13.9 Plt Count 212 MPV 10.5 Immature Gran % Neutrophils % Band Neutrophils % Lymphocytes % Atypical Lymphs % Monocytes % Eosinophils % Basophils % Metamyelocytes % Myelocytes % Promyelocytes % Other Cells % Nucleated RBC % Absolute Neutrophils Absolute Lymphocytes Absolute Monocytes Absolute Eosinophils Absolute Basophils RBC Morphology Polychromasia Hypochromasia Poikilocytosis Basophilic Stippling Anisocytosis Microcytosis Macrocytosis Spherocytes Tear Drop Cells Ovalocytes Stomatocytes Brizuela-Zena Bodies Alicia Cells/Echinocytes Acanthocytes (Spur) Schistocytes PT 12.6 H INR 1.3 H APTT 85.8 H* Sodium 142 Potassium 4.1 D Chloride 109 H Carbon Dioxide 24.0 Anion Gap 9.0 BUN 9 Creatinine 1.0 Est GFR (CKD-EPI 2020) 71.69 Glucose 99 Calcium 8.7 Magnesium 1.8 Total Bilirubin 0.4 AST 16 ALT 17 Alkaline Phosphatase 45 L Troponin I Total Protein 6.2 L Albumin 3.5 05/18/22 11:45 WBC RBC Hgb Hct MCV MCH MCHC RDW Plt Count MPV Immature Gran % Neutrophils % Band Neutrophils % Lymphocytes % Atypical Lymphs % Monocytes % Eosinophils % Basophils % Metamyelocytes % Myelocytes % Promyelocytes % Other Cells % Nucleated RBC % Absolute Neutrophils Absolute Lymphocytes Absolute Monocytes Absolute Eosinophils Absolute Basophils RBC Morphology Polychromasia Hypochromasia Poikilocytosis Basophilic Stippling Anisocytosis Microcytosis Macrocytosis Spherocytes Tear Drop Cells Ovalocytes Stomatocytes Brizuela-Zena Bodies Alicia Cells/Echinocytes Acanthocytes (Spur) Schistocytes PT INR APTT 61.9 H Sodium Potassium Chloride Carbon Dioxide Anion Gap BUN Creatinine Est GFR (CKD-EPI 2020) Glucose Calcium Magnesium Total Bilirubin AST ALT Alkaline Phosphatase Troponin I Total Protein Albumin Time Spent with Patient Time Spent with Patient: 25-34 minutes Time was spent: preparing to see the patient(eg.review tests), obtaining and/or reviewing separately otained hiistory, ordering medications,tests, procedures, referring, communicating with other health care team coordinator scheduler, indepentently interpreting results, counseling the patient and care coordination
[2022-05-18] MEDS: Ondansetron 4 MG TAB PO (16:16)
[2022-05-18] MEDS: Ketorolac 30 MG/ML VIAL IVP (17:13)
[2022-05-18] MEDS: Warfarin 5 MG TAB 15 MG PO (20:24)
[2022-05-18 20:58] LABS: Potassium 4.1 mmol/L (3.5-5.1)
[2022-05-18 21:02] LABS: PTT Activated 63.5 sec (21.0-27.5)
[2022-05-18] MEDS: Levothyroxine 125 MCG TAB PO (21:40)
[2022-05-18] MEDS: diphenhydrAMINE 25 MG CAP 100 MG PO (21:41)
[2022-05-18] MEDS: Cyproheptadine 4 MG TAB PO (21:41)
[2022-05-18] MEDS: Melatonin 3 MG TAB 6 MG PO (21:41)
[2022-05-18] MEDS: Ketorolac 15 MG/ML VIAL IVP (22:50)
[2022-05-19 00:10] VITALS: PULSE 68
[2022-05-19] MEDS: LORazepam 2 MG/ML VIAL 1 MG IV ×4 (00:43→16:01)
[2022-05-19] MEDS: HYDROmorphone 2 MG/ML SYR 0.5 MG IVP ×4 (00:44→16:02)
[2022-05-19] MEDS: Normal Saline Flush 10 ML SYR IVP ×5 (00:44→16:01)
[2022-05-19 03:48] VITALS: BP 115/75; PULSE 73; RESP 17; TEMP 36.4; O2SAT 100
[2022-05-19] MEDS: Ketorolac 15 MG/ML VIAL IVP ×2 (04:20→12:23)
[2022-05-19 06:06] LABS: HCT 37.5 % (36.0-46.0); HGB 12.1 g/dL (11.2-15.7); MCHC 32.3 % (32.0-36.0); MCV 87 fL (80-95); MPV 10.8 fL (8.0-11.0); Platelet Count 210 10^3/uL (130-400); RBC 4.32 10^6/uL (3.93-5.22); RDW 14.2 % (11.7-14.6); RDW-SD 45.6 fL; WBC 4.86 10^3/uL (4.4-10.8)
[2022-05-19 06:22] LABS: Anion Gap 9.5 mmol/L (3-11); BUN 10 mg/dL (7-18); CO2 21.5 mmol/L (21.0-32.0); CREATININE 1.2 mg/dL (0.55-1.02); Calcium 9.1 mg/dL (8.5-10.1); Chloride 108 mmol/L (98-107); Glucose 109 mg/dL (74-106); Potassium 4.2 mmol/L (3.5-5.1); Sodium 139 mmol/L (136-145)
[2022-05-19 06:32] LABS: INR 1.5 (0.9-1.1); PTT Activated 60.4 sec (21.0-27.5); Prothrombin Time 14.5 sec (9.3-11.0)
[2022-05-19 07:22] VITALS: PULSE 73
[2022-05-19 07:36] VITALS: BP 115/72; PULSE 84; RESP 16; TEMP 36.6; O2SAT 100
[2022-05-19] MEDS: Potassium Chloride 20 MEQ TABCR 40 MEQ PO (07:47)
[2022-05-19] MEDS: Topiramate 100 MG TAB 400 MG PO (07:48)
[2022-05-19] MEDS: Omeprazole 20 MG CAPCR 40 MG PO (07:48)
--- NOTE | 2022-05-19 08:00 | DI.US_ITS ---
APPROVED REPORT EXAM: Comprehensive 2D, Doppler, and color-flow Echocardiogram Patient Location: In-Patient Room/Bed: 231 Horse Racer: Lalitha Grimes RDCS (AE) Indications: PE, DVT Other Information Study Quality: Adequate Conclusion Left ventricular wall thickness and chamber size. Estimated ejection fraction is 60 to 65%. Wall mo tion is normal Normal right ventricular size and systolic function Both atria are normal in size There is no structural or hemodynamically significant valvular disease Wall motion Left Ventricle The left ventricle is normal size. The left ventricular systolic function is normal. The left ventric ular ejection fraction is within the normal range. There is normal left ventricular wall thickness. T here is normal LV segmental wall motion. There is no ventricular septal defect visualized. LVEF is 60 -65%. Right Ventricle The right ventricle is normal size. The right ventricular systolic function is normal. Atria The left atrium size is normal. The right atrium size is normal. The interatrial septum is intact wit h no evidence for an atrial septal defect. Aortic Valve The aortic valve is normal in structure. Aortic valve is trileaflet. There is no aortic valvular sten osis. No aortic regurgitation is present. Mitral Valve The mitral valve is normal in structure. No evidence of mitral valve stenosis. Trace mitral regurgita tion. Tricuspid Valve The tricuspid valve is normal in structure. There is no tricuspid valve stenosis. Trace tricuspid reg urgitation. Unable to assess PA pressure. Pulmonic Valve The pulmonary valve is normal in structure. There is no pulmonic valvular stenosis. There is no pulmo andre valvular regurgitation. Great Vessels The aortic root is normal in size. Ascending aorta is not well visualized. Aortic arch is normal in c aliber. IVC is normal in size and collapses >50% with inspiration. Pericardium There is no pericardial effusion. 2D Dimensions IVSD d PLAX 0.79 cm F: 0.6-1.0 LV Vol A2C d MOD 79.9 mL LVPW d PLAX 0.78 cm F: 0.6 - 1.0 LV Vol A4C d MOD 68.0 mL LVID d PLAX 4.02 cm F: 3.8 - 5.2 LA vol/ BSA A2C s A-L 20.8 mL/m2 LVDs 2.60 cm F: 2.2 - 3.5 LA vol/ BSA A4C s A-L 17.4 mL/m2 Ao Root d 2.19 cm F: 2.7 - 3.3 LA Vol/ BSA Biplane s A-L 19.2 mL/m2 RA Area A4C 13.93 cm2 LA Area A4C s MOD 13.18 cm2 RA Vol/ BSA A4C s A-L 18.9 mL/m2 LA Area A2C s MOD 14.57 cm2 LV EF Teichholz 64.0 % LV EF A4C MOD 60.1 % LVEF (Sandhu's) 63.06 % F: 54 - 74 LV EF A2C MOD 65.2 % LV Volume 58.93 mL F: 46 - 106 LV EF Biplane MOD 63.1 % LV Volume Index 33.10 mL/m2 F: 29 - 61 SV 47.59 mL LV Vol Biplane MOD 75.5 mL SV Index 26.73 mL/m2 FS 34.35 % M-Mode TAPSE 1.94 cm (M/F) >1.7 LV Diastology MV E' medial 0.092 (>0.07 m/s) E/A Ratio 0.9 LV E/e MED 6.65 (<14) MV E Vmax 0.61 (0.4-1.3 m/s) MV E' lateral 0.155 (>0.1 m/s) MV A Vmax 0.65 (0.4-1.3 m/s) LV E/e LAT 3.90 (<14) MV E/A Ratio 0.93 MV E/E' medial 6.67 MV E/E' lateral 3.94 Aortic Valve LVOT Area 2.88 cm2 AoV Area Vmax 2.54 cm2 LVOT Vmax 1.21 m/s AoV Area/ BSA (Vmax) 1.43 cm2/m2 LVOT Mean Toño. 0.75 m/s LUCINA Mean Toño. 2.34 cm2 LVOT Peak Grad 5.8 mmHg LUCINA Mean Toño. Index 1.32 cm2/m2 LVOT Mean Grad 2.7 mmHg LVOT VTI 0.223 m LVOT Diam s 1.90 cm AoV Vmax 1.37 m/s Velocity Ratio 0.88 AoV Mean Toño. 0.93 m/s AoV Peak Grad 7.5 mmHg LVOT SV 64.17 mL AoV Mean Grad 3.9 mmHg AoV VTI 0.228 m AoV Area VTI 2.81 cm2 AoV Area/ BSA (VTI) 1.58 cm/m2 Mitral Valve MV DT 238 (160-240 msec) MV PHT 69 msec MV Area PHT 3.19 cm2 MV VTI 0.210 m MV Area VTI 3.06 (4.0-6.0 cm2) Pulmonary Valve PV Vmax 0.97 (0.5-1.5 m/s) RVOT Peak Gr. 2.55 mmHg PV Peak Grad 3.8 mmHg RVOT Mean Gr. 1.10 mmHg PV Mean Grad 2.1 mmHg RVOT VTI 0.150 m PV VTI 0.196 m RVOT Vmax 0.80 m/s
[2022-05-19] MEDS: Mometasone 220 MCG 14 DOSE INHALER 4 PUFF IH (08:02)
[2022-05-19] MEDS: Albuterol 2.5 MG/3 ML INH SOLN VIAL IH (08:02)
--- NOTE | 2022-05-19 10:30 | PDOC.CMPRO ---
- If Service Date Differs Date of service: 05/19/22 Time of Service: 10:30 Care Management Progress Note S/O: A: 42 year old female admitted to [facility] on 05/17/22 for Pulmonary embolism P: Suzie is being closely monitored and treated. Per provider, pt is currently awaiting an ECHO, will review with [facility] for recommendations after echo. Anticipate, discharge home with no services when medically ready. CM will continue to support pt and her discharge planning considerations.
[2022-05-19 11:41] VITALS: BP 144/85; PULSE 76; RESP 16; TEMP 37.3; O2SAT 100
[2022-05-19 15:46] VITALS: BP 124/86; PULSE 82; RESP 16; TEMP 37; O2SAT 99
--- NOTE | 2022-05-19 16:07 | DSE_ITS ---
Date of service: 05/19/22 Time of Service: 16:07 DS: Diagnosis Discharge Diagnosis (1) Pulmonary embolism: Status: Acute (2) Chronic anticoagulation: Status: Chronic (3) Anxiety: Status: Chronic (4) History of DVT (deep vein thrombosis): (5) Hypokalemia: Status: Resolved (6) Factor V Leiden mutation: Discharge Plan Disposition Patient Disposition: Home Condition: Improving Discharge Details Reason For Visit: Acute Pulmon Embol; Epis of Unrespon Hypokalemia Admit Date/Time: 05/18/22 08:09 Admit Provider: Loli Conklin Attending Provider: Loli Conklin Primary Care Provider: Patrica Lopez Hospital Course Hospital Course: This is a 42-year-old female patient with multiple comorbidities including recurrent venous thromboembolism in the setting of Factor V Leiden heterogeneity and elevated Factor VII, pulmonary embolism, hypothyroidism, liver lesion, chronic pain, ADHD, and anxiety, with history of intentional over dose, who presented to the [facility] ED today via EMS with complaints of being unresponsive at home.? She was given oxygen in the ambulance without any improvement; she was maintaining her own airway. Family reports that patient awoke normally and then stated she was having chest pain and slowly lowered herself to the ground.? She was found unresponsive by EMS, felt to be wheezing and given a breathing treatment enroute to the hospital.? Upon arrival to the ED, patient demonstrates sonorous respirations, and a depressed gag reflex.? The patient was placed on a school bus monitor, 2 peripheral IVs were obtained, she was given 2 doses of Narcan and became more responsive and alert. After response to Narcan, ABG was obtained showing pH 7.4, PCO2 32, PO2 96 and the patient was transitioned to room air successfully. Patient has an INR of 1.3 which is subtherapeutic for her with recent INR of > three.? Potassium is low 2.6 and supplemented in the emergency department.? Troponin is negative.? CT of the chest revealed very small pul monary emboli in the medial left lower lobe.? No right ventricular dysfunction noted. Patient stated she had both high and low INR's recently.? She stated she was recently changed from twice daily Lovenox at home to once daily 80 mg in addition to the 15 mg of warfarin.? She is followed by hematology at the [facility].? Patient case was discussed with on-call hematology at [facility], Dr Gann by Dr. Owusu.? Dr Gann recommended the patient be placed on a heparin drip, this was started in the ED, and she requested that be maintained for 24 hours and then to consider increasing her warfarin.? She asked that the hematology team be contacted on Thursday or Thursday for repeat consultation.? Patient states she has had a chronic left lower extremity DVT in the past.? Repeat lower left extremity ultrasound showed a deep venous thrombosis in the distal femoral vein and popliteal vein. Some of?the thrombus is echogenic and may reflect combination of acute and chronic. She was observed on the medical floor on a heparin drip per recommendation of heme @ [facility]. She had an echo today and had no sign of right heart strain. She complained of migraine overnight and a lot of anxiety. She was given Lorazepam for anxiety with good relief. She was given Sumatriptin without relief for her migraine, although this is what she takes at home. She was given Ketorelac which did resolve her migraine. She was given dilaudid for severe left lower leg pain where DVT is - she did have good pulses, warm, pink, dry foot with TRAINING FACILITATOR< 2 sec. Second consult with [facility] hematology - Dr. Mane. Dr Mane states there are no notes suggesting patient should take Warfarin 15 mg or decrease enoxaparin to once a day. They recommend discontinuing warfarin completely, giving her enoxaparin 80 mg twice a day until follow up with them on 06/03/22. They would like to discontinue enoxaparin and start her on a doac at that visit. I did tell Suzie this and she is in agreement and will attend the Jun 03 appointment at [facility]. She missed her last appointment. i did tell her, per [facility], she can have a zoom appointment if that is more convenient for her and she should call this week if that is what would work better for her. She said she would call if she decides to do a virtual visit instead of live. She was discharged with presciption for hydocodone/acetaminophen for leg pain secondary to the DVT and for Lorazepam for her anxiety. She was told to hold clonazepam in her acute phase of anxiety and not take clonazepam and lorazepam together. She is discharged to home with her stable, improved. I did call [facility] and let them know the Warfarin is discontinued and to no longer refill. Discussed with Dr Conklin Home Meds and New Rx's Prescriptions: New hydrocodone-acetaminophen 10-300 mg tablet 1 tab PO Q6H PRNQty: 20 0RF lorazepam 1 mg tablet 1 mg sublingual TID PRNQty: 30 0RF Continued sucralfate 1 gram tablet 1 g PO AC & HS Qty: 120 2RF Citracal Plus Bone Density 1 EACH tablet 1 ea PO BID cyproheptadine 4 MG tablet 4 mg PO HS Qty: 90 triamcinolone acetonide 0.1 % cream 1 applic Topical BID PRN (Reason: eczema) Qty: 60 1RF Rx Instructions: Apply to eczema methylphenidate HCl 20 mg tablet 20 mg PO TID MDD 60 mg Qty: 84 0RF epinephrine [EpiPen 2-Nino] 0.3 mg/0.3 mL auto-injector 0.3 mg IM ONCE Qty: 1 1RF fluticasone propionate [Flovent HFA] 220 mcg/actuation HFA aerosol inhaler 2 inh Inhalation BID Qty: 3 4RF omeprazole 40 mg capsule,delayed release(DR/EC) 40 mg PO DAILY Qty: 90 4RF clotrimazole-betamethasone 1-0.05 % cream 1 applic Topical BID PRN (Reason: rash) Qty: 45 1RF Rx Instructions: Apply to skin folds albuterol sulfate [ProAir HFA] 90 mcg/actuation HFA aerosol inhaler 2 puff Inhalation Q6H PRN MDD 6 puffs Qty: 3 4RF ondansetron HCl 8 mg tablet 8 mg PO BID PRN (Reason: nausea and vomiting) Qty: 20 0RF sumatriptan succinate 6 mg/0.5 mL pen injector 6 mg subcut ONCE MDD 12mg PRN (Reason: migraine headache) Qty: 90 1RF Rx Instructions: May repeat dose once in 1 hour if headache persists naloxone [Narcan] 4 MG spray,non-aerosol 4 mg NS DAILY PRN PRNQty: 2 0RF Rx Instructions: One spray (4mg) intranasally into one nostril. Use a new nasal spray for subsequent dose in alternate nostril if needed. May repeat once after initial dose in 2-3 minutes. polyethylene glycol 3350 [Miralax] 17 gram Powder In Packet 17 g PO DAILY PRN Zyrtec 10 mg Capsule 10 mg PO DAILY topiramate [Topamax] 200 mg tablet 400 mg PO DAILY Rx Instructions: Brand name medically necessary acidophilus-pectin, citrus 25 million cell -100 mg tablet 1 tab PO DAILY albuterol sulfate 2.5 mg /3 mL (0.083 %) Solution For Nebulization 2.5 mg INHALATION TID ascorbic acid (vitamin C) [Vitamin C] 500 mg Tablet 500 mg PO BID Qty: 60 0RF qcbxylipap-vzjjedlmuiflw-rrrr [Fioricet] 50-300-40 mg capsule 1 cap PO Q4H PRNQty: 60 0RF Rx Instructions: Take 1-2 tabs as needed for WILLETT, not to exceed 6 tabs in 24 hours cholecalciferol (vitamin D3) [Vitamin D3] 50 mcg (2,000 unit) capsule 50 mcg PO DAILY Qty: 30 0RF melatonin 3 mg Tablet 6 mg PO HS Qty: 30 0RF prochlorperazine maleate [Compazine] 10 mg tablet 10 mg PO TID PRNQty: 60 0RF promethazine 25 mg tablet 25 mg PO TID PRNQty: 60 0RF (DME) inhalational spacing device 1 EACH spacer MISCELLANEOUS levothyroxine 125 mcg tablet 125 mcg PO HS enoxaparin 80 mg/0.8 mL syringe 80 mg subcut Q12H Qty: 60 0RF diphenhydramine HCl [Benadryl Allergy] 25 mg tablet 100 mg PO HS Label Comments: Take 4 tablet by mouth at bedtime budesonide-formoterol [Symbicort] 160-4.5 mcg/actuation HFA aerosol inhaler 1 inh INHALATION QDAY Label Comments: INHALE TWO PUFFS BY MOUTH TWICE A DAY AND NEEDED Held clonazepam 1 mg tablet 1 mg PO TID PRN (Reason: anxiety) Qty: 90 0RF Hold Instructions: Resume on 05/31/22. Hold until further instructions by PCP) Discontinued ondansetron HCl [Zofran] 4 mg Tablet 4 mg PO DAILY PRN warfarin 5 mg tablet 15 mg PO DAILY Qty: 30 0RF Discharge Instructions Instructions: Hydrocodone/Acetaminophen (By mouth), Lorazepam (By mouth), Ondansetron (By mouth), Enoxaparin (By injection), Pulmonary Embolism (DC) Additional Instructions: STOP Warfarin Take ENOXAPARIN 80 mg twice a day Follow up with Hematology @ [facility] as scheduled. Vicodin for leg pain. Ondansetron for nausea. Do not take Lorazepam when taking Clonazepam; or take Clonazepam when taking Lorazepam - OK to resume Clonazepam once Lorazepam prescription is completed - follow up with PCP regarding continuing Lorazepam. Stand Alone Forms: Nursing Discharge Form Referrals: [facility] [Outside] - 06/03/22 1:40 pm (Follow up as planned with Hematology @ [facility] Cecilia Clinton PA-C on June 03, 2022 @ 1:40 PM) Patrica Lopez [Primary Care Provider] - 05/23/22 9:45 am (follow up in 1-2 weeks) Activity:: Activity as Tolerated Equipment/Supplies:: No Equipment Needed Diet:: As Tolerated Discharge Orders Discharge Orders: Discharge Order (Routine); Ordered 05/19/22 Ordered By: Tameka Arevalo Discharge Data Discharge Date/Time-TO BE ENTERED AT DEPARTURE: 05/19/22 18:00 DS: Summary Time Spent with Patient providing and/or coordinating discharge services: Greater than 30 minutes Status at Discharge Functional status at discharge: independent ambulation Overall status at discharge: patient is back to baseline Mental Status: mental status grossly normal Speech and Movement: speech and movement normal Mood: congruent mood Affect: normal affect Exam Psych Mental Status: mental status grossly normal Speech and Movement: speech and movement normal Mood: congruent mood Affect: normal affect DS: Data Vitals/I&O Vitals and I&O: Vital Signs Temperature 37 C 05/19/22 15:46 Temperature Source Tympanic 05/19/22 15:46 Pulse 82 05/19/22 15:46 Pulse Rhythm Regular 05/19/22 07:45 Pulse 80 05/17/22 14:45 Respiratory Rate 16 05/19/22 15:46 Respiratory Effort Non-Labored 05/19/22 07:45 Respiratory Depth Normal 05/19/22 07:45 Respiratory Pattern Normal 05/19/22 07:45 Blood Pressure 124/86 05/19/22 15:46 Blood Pressure Mean 100 05/17/22 14:45 Blood Pressure Position Supine 05/17/22 11:39 Pulse Oximetry 99 05/19/22 15:46 Oxygen Delivery Method Room Air 05/19/22 15:46 Oxygen Flow Rate 0 05/19/22 15:46 Pain Level 8 05/19/22 10:33 Comment 05/19/22 03:48 Intake & Output 05/18/22 05/19/22 05/19/22 23:59 11:59 23:59 Intake Total 1394.8 / 1428.3 96.55 / 96.55 Output Total 700 / 700 200 / 200 Balance 694.8 / 728.3 -103.45 / -103.45 Intake: IV 194.8 / 228.3 96.55 / 96.55 Oral 1200 / 1200 Output: Urine 700 / 700 200 / 200 Other: Urine Color Pale Yellow Yellow Straw Urine Appearance Clear Clear Voiding Methods Toilet Toilet Data Completed and Pending Labs on day of discharge: Labs from last 24 hours 05/19/22 05/19/22 05/19/22 06:00 05:50 05:50 WBC RBC Hgb Hct MCV MCH MCHC RDW Plt Count MPV PT 14.5 H INR 1.5 H APTT Cancelled 60.4 H Sodium 139 Potassium 4.2 Chloride 108 H Carbon Dioxide 21.5 Anion Gap 9.5 BUN 10 Creatinine 1.2 H Est GFR (CKD-EPI 2020) 57.60 Glucose 109 H Calcium 9.1 05/19/22 05/18/22 05/18/22 05:50 20:40 20:40 WBC 4.86 RBC 4.32 Hgb 12.1 Hct 37.5 MCV 87 MCH 28.0 MCHC 32.3 RDW 14.2 Plt Count 210 MPV 10.8 PT INR APTT 63.5 H Sodium Potassium 4.1 Chloride Carbon Dioxide Anion Gap BUN Creatinine Est GFR (CKD-EPI 2020) Glucose Calcium PFSH All Active Problems (Updated 05/20/22 @ 00:05 by TRAV STRANGE) Pulmonary embolism (Acute) Anxiety (Chronic) DVT prophylaxis (Acute) Intractable nausea and vomiting (Acute) Enterocolitis (Acute) Gastroesophagitis (Acute) Leukocytosis, unspecified (Acute) Intractable nausea and vomiting (Acute) Chronic anticoagulation (Chronic) On coumadin Cyclic vomiting syndrome (Acute) Panic disorder (Chronic 03/21/16) Chronic back pain greater than 3 months duration (Chronic 12/29/14) ADHD (attention deficit hyperactivity disorder), 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) B12 deficiency (Chronic) Medical History Acute deep vein thrombosis (DVT) of left lower extremity Acute renal insufficiency Asthma (11/08/12) Candidiasis Cellulitis of left leg Chronic anticoagulation Cyst of fallopian tube Depression Factor V Leiden mutation GERD (gastroesophageal reflux disease) Hematuria History of DVT (deep vein thrombosis) Hypothyroidism Iatrogenic pulmonary embolism and infarction Intractable vomiting with nausea Left buttock abscess Left lower quadrant pain (01/27/12) Migraine headache Nephrolithiasis Normocytic anemia Orbital cellulitis on left Other enthesopathies, not elsewhere classified (03/21/16) Neck Preseptal cellulitis of left eye Primary hypercoagulable state Recurrent deep vein thrombosis (DVT) Right lower quadrant abdominal pain inflamed/ruptured fallopian tube on the right Thrombosis of arteries of lower extremity Vaginal candidiasis Surgical History Abdominal hysterectomy (~2009) 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) Arthroplasty of knee (~1999) left Bilateral salpingectomy with oophorectomy (~2008) Cervical Conization/LEEP LEEP 2003 [facility] BX 2003 Cholecystectomy History of arthroscopy of knee S/P appendectomy (12/24/17) Dr Veliz - Car appy and lap excision of R fallopian tube remnant Status post cholecystectomy Status post LEEP (loop electrosurgical excision procedure) of cervix THUMB RECONSTRUCTION left; in childhood Social History Smoking/Tobacco Use Status: Never Smoking risk assessment performed?: Yes Alcohol Intake: former Drug use: Daily Substance use type: marijuana Current gender identity: female Do you feel safe at home: Yes Do you feel safe in your relationship?: Yes Additional Social history: Patient is and with one child. Time Spent with Patient Time Spent with Patient: 45-69 minutes Time was spent: preparing to see the patient(eg.review tests), obtaining and/or reviewing separately otained hiistory, ordering medications,tests, procedures, referring, communicating with other health customer care manager, indepentently interpreting results, counseling the patient and care coordination
--- NOTE | 2022-05-19 16:32 | PDOC.CMDIS ---
- If Service Date Differs Date of service: 05/19/22 Time of Service: 16:32 LACE Index Scoring Tool - Questions: Length of Stay (in days): 1 Acuity (Admit via E.D.?): Yes E.D. Visits: 6 - Answers: Total Score: 8 Risk of Readmission: Low Risk Care Management Discharge Reason for Hospitalization: Acute PE, Hypokalemia Discharge Plan: Suzie is discharged home via private vehicle with son with a plan to follow up with community providers and discharge plan of care as prescribed. New RX is transmitted to [facility]. Pt will follow up with Primary Care on 05/23/22 and [facility] on 06/03/22, as scheduled. No [facility] services are ordered. Patient/Family Education Needs: Review discharge instructions, limitations, medications and plan to follow up with community providers. Discuss ask me three and goals of self care.
[2022-05-26 15:13] LABS: Fentanyl Interpretation Positive.; Fentanyl by LC-MS/MS 46.7 ng/mL; Norfentanyl by LC-MS/MS 679.2 ng/mL
== END 2022-05-19 18:00 | disposition home or self-care (01) | DRG 176 ==
LOC: ER 14:25 → MS 15:06
PROVIDERS: General Practice; Nurse Practitioner Family; Admitting Provider Internal Medicine; Emergency Provider Emergency Medicine; PCP Family Medicine; Visit Provider Internal Medicine
DX: I26.99 Other pulmonary embolism without acute cor pulmonale (principal); I82.412 Acute embolism and thrombosis of left femoral vein; I82.432 Acute embolism and thrombosis of left popliteal vein; D68.51 Activated protein C resistance; D68.2 Hereditary deficiency of other clotting factors; Z79.01 Long term (current) use of anticoagulants; E87.6 Hypokalemia; Z86.718 Personal history of other venous thrombosis and embolism; E03.9 Hypothyroidism, unspecified; G89.29 Other chronic pain; F90.9 Attention-deficit hyperactivity disorder, unspecified type; F41.9 Anxiety disorder, unspecified; R11.15 Cyclical vomiting syndrome unrelated to migraine; F41.0 Panic disorder [episodic paroxysmal anxiety]; E53.8 Deficiency of other specified B group vitamins; F12.180 Cannabis abuse with cannabis-induced anxiety disorder; J45.909 Unspecified asthma, uncomplicated; K21.9 Gastro-esophageal reflux disease without esophagitis; D64.9 Anemia, unspecified; G43.009 Migraine without aura, not intractable, without status migrainosus; R40.4 Transient alteration of awareness
CPT/HCPCS: 36415; 71275; 80048; 80053; 80307; 81025; 82805; 85027; 87637; 93005; 93306; 94640; 96365; 96366; 96375; 99285; 36600; 70450; 80320; 80329; 80354; 81003; 83735; 84132; 84484; 85025; 85610; 85730; 93010; 93970; 99222; 99232; 99239; J1170; J1885; J2060; J2310; J2405; J3480; J3490; J7613; J8597

== ENCOUNTER 2022-07-29 00:53 | Emergency (ER) | payer MEDICARE, MEDICAID, SELFPAY ==
[2022-07-29] VITALS (18 sets, daily range): BP systolic 172–213; BP diastolic 77–114; PULSE 58–79; RESP 18; TEMP 36.6; O2SAT 100
--- NOTE | 2022-07-29 01:22 | W.ED.GENAD ---
Discharge Plan Disposition Patient Disposition: Home Condition: Stable Discharge Details Clinical Impression: Cyclic vomiting syndrome, Headache Primary Care Provider: Patrica Lopez ED Provider: Lester Gorman [place] Meds and New Rx's Prescriptions: New ondansetron 4 mg tablet,disintegrating 4 mg PO Q8H PRN (Reason: nausea and vomiting) Qty: 30 0RF Continued sucralfate 1 gram tablet 1 g PO AC & HS Qty: 120 2RF Citracal Plus Bone Density 1 EACH tablet 1 ea PO BID cyproheptadine 4 MG tablet 4 mg PO HS Qty: 90 triamcinolone acetonide 0.1 % cream 1 applic Topical BID PRN (Reason: eczema) Qty: 60 1RF Rx Instructions: Apply to eczema methylphenidate HCl 20 mg tablet 20 mg PO TID MDD 60 mg Qty: 84 0RF epinephrine [EpiPen 2-Nino] 0.3 mg/0.3 mL auto-injector 0.3 mg IM ONCE Qty: 1 1RF fluticasone propionate [Flovent HFA] 220 mcg/actuation HFA aerosol inhaler 2 inh Inhalation BID Qty: 3 4RF omeprazole 40 mg capsule,delayed release(DR/EC) 40 mg PO DAILY Qty: 90 4RF clotrimazole-betamethasone 1-0.05 % cream 1 applic Topical BID PRN (Reason: rash) Qty: 45 1RF Rx Instructions: Apply to skin folds albuterol sulfate [ProAir HFA] 90 mcg/actuation HFA aerosol inhaler 2 puff Inhalation Q6H PRN MDD 6 puffs Qty: 3 4RF ondansetron HCl 8 mg tablet 8 mg PO BID PRN (Reason: nausea and vomiting) Qty: 20 0RF sumatriptan succinate 6 mg/0.5 mL pen injector 6 mg subcut ONCE MDD 12mg PRN (Reason: migraine headache) Qty: 90 1RF Rx Instructions: May repeat dose once in 1 hour if headache persists clonazepam 1 mg tablet 1 mg PO TID PRN (Reason: anxiety) Qty: 90 0RF Hold Instructions: Resume on 05/31/22. Hold until further instructions by PCP) naloxone [Narcan] 4 MG spray,non-aerosol 4 mg NS DAILY PRN PRNQty: 2 0RF Rx Instructions: One spray (4mg) intranasally into one nostril. Use a new nasal spray for subsequent dose in alternate nostril if needed. May repeat once after initial dose in 2-3 minutes. polyethylene glycol 3350 [Miralax] 17 gram Powder In Packet 17 g PO DAILY PRN Zyrtec 10 mg Capsule 10 mg PO DAILY topiramate [Topamax] 200 mg tablet 400 mg PO DAILY Rx Instructions: Brand name medically necessary acidophilus-pectin, citrus 25 million cell -100 mg tablet 1 tab PO DAILY albuterol sulfate 2.5 mg /3 mL (0.083 %) Solution For Nebulization 2.5 mg INHALATION TID ascorbic acid (vitamin C) [Vitamin C] 500 mg Tablet 500 mg PO BID Qty: 60 0RF [id number]-hyrjlmyqilxtl-wbyr [Fioricet] 50-300-40 mg capsule 1 cap PO Q4H PRNQty: 60 0RF Rx Instructions: Take 1-2 tabs as needed for WILLETT, not to exceed 6 tabs in 24 hours cholecalciferol (vitamin D3) [Vitamin D3] 50 mcg (2,000 unit) capsule 50 mcg PO DAILY Qty: 30 0RF melatonin 3 mg Tablet 6 mg PO HS Qty: 30 0RF prochlorperazine maleate [Compazine] 10 mg tablet 10 mg PO TID PRNQty: 60 0RF promethazine 25 mg tablet 25 mg PO TID PRNQty: 60 0RF (DME) inhalational spacing device 1 EACH spacer MISCELLANEOUS levothyroxine 125 mcg tablet 125 mcg PO HS hydrocodone-acetaminophen 10-300 mg tablet 1 tab PO Q6H PRNQty: 20 0RF enoxaparin 80 mg/0.8 mL syringe 80 mg subcut Q12H Qty: 60 0RF lorazepam 1 mg tablet 1 mg sublingual TID PRNQty: 30 0RF diphenhydramine HCl [Benadryl Allergy] 25 mg tablet 100 mg PO HS Patient Comments: Take 4 tablet by mouth at bedtime budesonide-formoterol [Symbicort] 160-4.5 mcg/actuation HFA aerosol inhaler 1 inh INHALATION QDAY Patient Comments: INHALE TWO PUFFS BY MOUTH TWICE A DAY AND NEEDED Discharge Instructions Instructions: Acute Nausea and Vomiting (ED) Additional Instructions: your labs and imaging did not show concerning findings at this time follow up with your primary care provider within 1 week if you feel more ill, have difficulty breathing or severe worsening of pain return to the emergency department Medical Decision Making 42 yo female with hx of factor V leiden on lovenox, cyclic vomiting syndrome, who comes in with n/v and when she does vomit epigastric pain since earlier tonight. She denies smoking, alcohol or drug use, no chest pain, no dyspnea, no fevers, no chills. HAs a mild frontal headache as well. She has her eyes closed during exam and will intermittently not answer questions but when repeatedly asked eventually answers. She is hypertensive on arrival otherwise stable vitals. She is caox4. No focal deficits, perrl, eomi. HEr abdomen is soft and nondistended, mild epigastric tenderness without guarding or rebound and no tenderness elsewhere. Suspect recurrent episode of cyclic vomiting, unlikely surgical pathology based on exam. Will obtain cbc, cmp, lipase, ua and treat her symptoms with droperidol and reassess. pt stable, no longer dry heaving though she still states she has a headache, not the worst of her life, and also having mid abdomen pain, no guarding or rebound. Will trial compazine and proceed with ct head and ct abd/pelvis. imaging unremarkable, ct abd/pelvis read as undersitention of colon but could be segmental colitis. PT has not had diarrhea so doubt this. She is resting in bed currently, will observe. pt has no pain, awake and answering questions, no tenderness on exam, is hypertensive at 170 systolic but no chest pain or symptoms to suggest end organ damage. Suspect recurrent cyclic vomiting syndrome. Will provide aric bonilla and ahve her f/u with her pcp, return precautions given Differential Diagnosis Differential Diagnosis: cyclic vomiting, pancreatitis, sbo Imaging Data Radiologic Study: Attestation: I personally reviewed and interpreted this imaging study as follows: Imaging: CT Scan Radiologist's impression: no acute findings on head ct Radiologic Study #2: Attestation: I personally reviewed and interpreted this imaging study as follows: Imaging: CT Scan Radiologist's impression: IMPRESSION: 1. Apparent mural thickening through the collapsed well evacuated ascending colon, and transverse colon. Artifact of incomplete distention or acute segmental colitis could have this appearance. Clinical correlation is recommended. Normal appearing fecal material in the downstream descending colon, proximal sigmoid colon, and in the rectum. 2. 2 mm nonobstructing left renal calculus. 3. 1.7 cm dominant left ovarian follicle. Lab Data Lab results reviewed: Yes I reviewed the patient's lab results. HPI General Mode of arrival: wheelchair. Date/Time Provider Initiated Documentation: 07/29/22 00:54. Limitations to Documentation: no limitations. Information obtained by: patient. History of Present Illness 42 year old F presents to the emergency department with the chief complaint of n/v, described as moderate, Patient started experiencing this hour(s) (4) and it has been constant. No relieving factors improve symptom(s), No exacerbating factors reported . Patient notes denies chest pain, fever/chills and shortness of breath. Patient did receive the following treatments prior to arrival, none Related Data Home Medications Medication Instructions Recorded Confirmed calcium carb,cit 300 mg-D3 200 1 ea PO BID 11/09/12 05/17/22 unit-min no.34-genistein 13.5 mg tablet (Citracal Plus Bone Density Builder) cyproheptadine 4 mg tablet 4 mg PO HS #90 tab-caps 06/04/16 05/17/22 naloxone 4 mg/actuation nasal 4 mg NS DAILY PRN PRN #2 sprays 12/08/16 05/17/22 spray (Narcan) triamcinolone acetonide 0.1 % 1 applic topical BID PRN eczema 09/05/19 05/17/22 topical cream #60 grams methylphenidate HCl 20 mg tablet 20 mg PO TID #84 tab-caps 10/20/19 05/17/22 diphenhydramine HCl 25 mg tablet 100 mg PO HS 12/13/19 05/17/22 (Benadryl Allergy) sucralfate 1 gram tablet 1 g PO AC & HS #120 tabs 12/30/19 05/17/22 clotrimazole-betamethasone 1 1 applic topical BID PRN rash #45 02/22/20 05/17/22 %-0.05 % topical cream grams epinephrine 0.3 mg/0.3 mL 0.3 mg (0.3 mL) IM ONCE #1 ea 02/22/20 05/17/22 injection, auto-injector (EpiPen 2-Nino) fluticasone propionate 220 2 inh inhalation BID ##3 02/22/20 05/17/22 mcg/actuation HFA aerosol inhaler (Flovent HFA) omeprazole 40 mg capsule,delayed 40 mg PO DAILY GERD #90 caps 02/22/20 05/17/22 release albuterol sulfate 90 mcg/actuation 2 puff inhalation Q6H PRN ##3 03/07/20 05/17/22 aerosol inhaler (ProAir HFA) ondansetron HCl 8 mg tablet 8 mg PO BID PRN nausea and 03/07/20 05/17/22 vomiting #20 tabs sumatriptan succinate 6 mg/0.5 mL 6 mg (0.5 mL) subcut ONCE PRN 03/07/20 05/17/22 subcutaneous pen injector migraine headache #90 SYRGS clonazepam 1 mg tablet 1 mg PO TID PRN anxiety #90 tabs 03/20/20 05/17/22 acidophilus 25 million 1 tab PO DAILY 08/16/20 05/17/22 cell-pectin, citrus 100 mg tablet cetirizine 10 mg capsule (Zyrtec) 10 mg PO DAILY 08/16/20 05/17/22 polyethylene glycol 3350 17 gram 17 g PO DAILY PRN 08/16/20 05/17/22 oral powder packet (Miralax) topiramate 200 mg tablet (Topamax) 400 mg PO DAILY 08/16/20 05/17/22 albuterol sulfate 2.5 mg/3 mL 2.5 mg inhalation TID 05/03/21 05/17/22 (0.083 %) solution for nebulization ascorbic acid (vitamin C) 500 mg 500 mg PO BID #60 tabs 05/04/21 05/17/22 tablet (Vitamin C) mmqwhfrdly-zgkuapkwgiyzr-bffokiib 1 cap PO Q4H PRN #60 caps 05/04/21 05/17/22 50 mg-300 mg-40 mg capsule (Fioricet) cholecalciferol (vitamin D3) 50 50 mcg PO DAILY #30 caps 05/04/21 05/17/22 mcg (2,000 unit) capsule (Vitamin D3) melatonin 3 mg tablet 6 mg PO HS #30 tabs 05/04/21 05/17/22 prochlorperazine maleate 10 mg 10 mg PO TID PRN #60 tabs 05/04/21 05/17/22 tablet (Compazine) promethazine 25 mg tablet 25 mg PO TID PRN #60 tabs 05/04/21 05/17/22 budesonide-formoterol HFA 160 1 inh inhalation QDAY 01/22/22 05/17/22 mcg-4.5 mcg/actuation aerosol inhaler (Symbicort) inhalational spacing device 05/17/22 05/17/22 levothyroxine 125 mcg tablet 125 mcg PO HS 05/17/22 05/17/22 enoxaparin 80 mg/0.8 mL 80 mg (0.8 mL) subcut Q12H #60 05/19/22 subcutaneous syringe SYRGS hydrocodone 10 mg-acetaminophen 1 tab PO Q6H PRN #20 tabs 05/19/22 300 mg tablet lorazepam 1 mg tablet 1 mg sublingual TID PRN #30 tabs 05/19/22 ondansetron 4 mg disintegrating 4 mg PO Q8H PRN nausea and 07/29/22 tablet vomiting #30 tabs Previous Rx's Medication Instructions Recorded naloxone 4 mg/actuation nasal 4 mg NS DAILY PRN PRN #2 sprays 12/08/16 spray (Narcan) triamcinolone acetonide 0.1 % 1 applic topical BID PRN eczema 09/05/19 topical cream #60 grams methylphenidate HCl 20 mg tablet 20 mg PO TID #84 tab-caps 10/20/19 sucralfate 1 gram tablet 1 g PO AC & HS #120 tabs 12/30/19 clotrimazole-betamethasone 1 1 applic topical BID PRN rash #45 02/22/20 %-0.05 % topical cream grams epinephrine 0.3 mg/0.3 mL 0.3 mg (0.3 mL) IM ONCE #1 ea 02/22/20 injection, auto-injector (EpiPen 2-Nino) fluticasone propionate 220 2 inh inhalation BID ##3 02/22/20 mcg/actuation HFA aerosol inhaler (Flovent HFA) omeprazole 40 mg capsule,delayed 40 mg PO DAILY GERD #90 caps 02/22/20 release albuterol sulfate 90 mcg/actuation 2 puff inhalation Q6H PRN ##3 03/07/20 aerosol inhaler (ProAir HFA) ondansetron HCl 8 mg tablet 8 mg PO BID PRN nausea and 03/07/20 vomiting #20 tabs sumatriptan succinate 6 mg/0.5 mL 6 mg (0.5 mL) subcut ONCE PRN 03/07/20 subcutaneous pen injector migraine headache #90 SYRGS clonazepam 1 mg tablet 1 mg PO TID PRN anxiety #90 tabs 03/20/20 ascorbic acid (vitamin C) 500 mg 500 mg PO BID #60 tabs 05/04/21 tablet (Vitamin C) wlnkqcrdcc-skxmijhkrrgss-odxvlwdh 1 cap PO Q4H PRN #60 caps 05/04/21 50 mg-300 mg-40 mg capsule (Fioricet) cholecalciferol (vitamin D3) 50 50 mcg PO DAILY #30 caps 05/04/21 mcg (2,000 unit) capsule (Vitamin D3) melatonin 3 mg tablet 6 mg PO HS #30 tabs 05/04/21 prochlorperazine maleate 10 mg 10 mg PO TID PRN #60 tabs 05/04/21 tablet (Compazine) promethazine 25 mg tablet 25 mg PO TID PRN #60 tabs 05/04/21 enoxaparin 80 mg/0.8 mL 80 mg (0.8 mL) subcut Q12H #60 05/19/22 subcutaneous syringe SYRGS hydrocodone 10 mg-acetaminophen 1 tab PO Q6H PRN #20 tabs 05/19/22 300 mg tablet lorazepam 1 mg tablet 1 mg sublingual TID PRN #30 tabs 05/19/22 ondansetron 4 mg disintegrating 4 mg PO Q8H PRN nausea and 07/29/22 tablet vomiting #30 tabs Allergies Allergy/AdvReac Type Severity Reaction Status Date / Time aripiprazole [From Abilify] Allergy Severe Rash, hives Verified 05/17/22 14:35 doxycycline Allergy Severe Anaphylaxsi Verified 05/17/22 14:35 s levetiracetam [From Keppra] Allergy Severe RASH/HIVES Verified 05/17/22 14:35 sulfamethoxazole Allergy Severe Hives Verified 05/17/22 14:35 venom-honey bee Allergy Severe unknown Verified 05/17/22 14:35 Penicillins Allergy Intermediate Skin Rash Verified 05/17/22 14:35 chlorhexidine Allergy Unknown unknown Verified 05/17/22 14:35 Sulfa (Sulfonamide Allergy Verified 05/17/22 14:35 Antibiotics) mold AdvReac Severe Wheezing Verified 05/17/22 14:35 oxycodone [Oxycodone] AdvReac Severe vomits Verified 05/17/22 14:35 paroxetine AdvReac Severe Irritability Verified 05/17/22 14:35 and anger dicloxacillin [Dicloxacillin] AdvReac Mild Nausea, GI Verified 05/17/22 14:35 upset gabapentin AdvReac Mild hives Verified 05/17/22 14:35 prednisone AdvReac Agitation Verified 05/17/22 14:35 trazodone AdvReac shortness Verified 05/17/22 14:35 of breath verapamil [Verapamil] AdvReac Worsening Verified 05/17/22 14:35 migraine nuts Allergy Severe Anaphylaxsi Uncoded 05/17/22 14:35 s General Stated Complaint: Nausea/Vomit/Diar RYNE: 3 Review of Systems All systems reviewed & are unremarkable except as noted in HPI and below Constitutional Constitutional: Denies chills and Denies fever(s) Cardiovascular Cardiovascular: Denies chest pain and Denies dyspnea Respiratory Respiratory: Denies cough and Denies dyspnea Gastrointestinal Gastrointestinal: Reports abdominal pain, Reports nausea and Reports vomiting Genitourinary Genitourinary: Denies dysuria Musculoskeletal Musculoskeletal: Denies joint swelling Integumentary/Breasts Skin/Breast: Denies rash PFSH All Active Problems (Updated 07/29/22 @ 06:19 by Lester Gorman MD) Headache (Acute) Pulmonary embolism (Acute) Anxiety (Chronic) DVT prophylaxis (Acute) Intractable nausea and vomiting (Acute) Enterocolitis (Acute) Gastroesophagitis (Acute) Leukocytosis, unspecified (Acute) Intractable nausea and vomiting (Acute) Chronic anticoagulation (Chronic) On coumadin Cyclic vomiting syndrome (Acute) Panic disorder (Chronic 03/21/16) Chronic back pain greater than 3 months duration (Chronic 12/29/14) ADHD (attention deficit hyperactivity disorder), 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) B12 deficiency (Chronic) Medical History Acute deep vein thrombosis (DVT) of left lower extremity Acute renal insufficiency Asthma (11/08/12) Candidiasis Cellulitis of left leg Chronic anticoagulation Cyst of fallopian tube Depression Factor V Leiden mutation GERD (gastroesophageal reflux disease) Hematuria History of DVT (deep vein thrombosis) Hypothyroidism Iatrogenic pulmonary embolism and infarction Intractable vomiting with nausea Left buttock abscess Left lower quadrant pain (01/27/12) Migraine headache Nephrolithiasis Normocytic anemia Orbital cellulitis on left Other enthesopathies, not elsewhere classified (03/21/16) Neck Preseptal cellulitis of left eye Primary hypercoagulable state Recurrent deep vein thrombosis (DVT) Right lower quadrant abdominal pain inflamed/ruptured fallopian tube on the right Thrombosis of arteries of lower extremity Vaginal candidiasis Surgical History Abdominal hysterectomy (~2009) 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) Arthroplasty of knee (~1999) left Bilateral salpingectomy with oophorectomy (~2008) Cervical Conization/LEEP LEEP 2003 [facility] BX 2003 Cholecystectomy History of arthroscopy of knee S/P appendectomy (12/24/17) Dr Veliz - Car appy and lap excision of R fallopian tube remnant Status post cholecystectomy Status post LEEP (loop electrosurgical excision procedure) of cervix THUMB RECONSTRUCTION left; in childhood Social History Smoking/Tobacco Use Status: Never Smoking risk assessment performed?: Yes Alcohol Intake: former Drug use: Daily Substance use type: marijuana Current gender identity: female Do you feel safe at home: Yes Do you feel safe in your relationship?: Yes Additional Social history: Patient is and with one child. Exam Const Orientation: alert HENMT Head: normal to inspection Ears: external ears normal General nose exam: external nose normal Mouth: moist mucous membranes Eyes General: appearance normal, both eyes and all related structures Neck Neck: normal visual inspection Resp Effort & Inspection: normal respiratory effort Auscultation: clear to auscultation bilaterally Cardio Jugular venous pressure: no JVD Rate: regular rate Heart Sounds: no murmurs GI Palpation: soft, not firm and no guarding Skin General skin exam: no rashes or lesions noted Neuro General: patient alert and patient oriented x3 Extrem General: normal to inspection Psych Mental Status: mental status grossly normal Course Vital Signs Vital signs: Vital Signs Temperature 36.6 C 07/29/22 01:08 Pulse 58 L 04/11/23 01:08 Respiratory Rate 18 07/29/22 01:08 Blood Pressure 173/84 H 07/29/22 01:08 Pulse Oximetry 100 07/29/22 01:08 Temperature 36.6 C 07/29/22 01:08 Pulse 58 L 07/29/22 01:08 Respiratory Rate 18 07/29/22 01:08 Respiratory Effort Normal 07/29/22 01:13 Blood Pressure 173/84 H 07/29/22 01:08 Blood Pressure Position Supine 07/29/22 01:08 Pulse Oximetry 100 07/29/22 01:08 Oxygen Delivery Method Room Air 07/29/22 01:08 Oxygen Flow Rate 0 07/29/22 01:08 Pain Level 9 07/29/22 01:08
[2022-07-29 01:46] LABS: Abs Immature Grans 0.06 10^3/uL (0.0-0.06); Absolute Basophil Count 0.04 10^3/uL (0.0-0.2); Absolute Lymphocyte Count 0.81 10^3/uL (1.2-3.4); Absolute Monocyte Count 0.55 10^3/uL (0.1-0.8); Basophils % 0.3; HCT 45.5 % (36.0-46.0); HGB 16.2 g/dL (11.2-15.7); Immature Grans % 0.4; MCHC 35.6 % (32.0-36.0); MCV 81 fL (80-95); MPV 10.7 fL (8.0-11.0); Monocytes % 4.1; Neutrophils % 89.2; Platelet Count 272 10^3/uL (130-400); RBC 5.59 10^6/uL (3.93-5.22); RDW 13.5 % (11.7-14.6); RDW-SD 39.6 fL; WBC 13.45 10^3/uL (4.4-10.8)
[2022-07-29] MEDS: Normal Saline 1,000 ML 1000 ML IV (01:50)
[2022-07-29] MEDS: Droperidol 5 MG/2 ML VIAL IVP (01:50)
[2022-07-29 01:57] LABS: INR 1.1 (0.9-1.1); PTT Activated 23.8 sec (21.5-31.9)
[2022-07-29 02:08] LABS: ALT 26 U/L (14-59); AST 11 U/L (15-37); Albumin 4.9 g/dL (3.4-5.0); Alkaline Phosphatase 64 U/L (46-116); Anion Gap 13.9 mmol/L (3-11); BUN 18 mg/dL (7-18); Bilirubin, Total 0.7 mg/dL (0.2-1.0); CO2 23.1 mmol/L (21.0-32.0); CREATININE 1.4 mg/dL (0.55-1.02); Calcium 10.2 mg/dL (8.5-10.1); Chloride 98 mmol/L (98-107); Estimated GFR 47.87 (mL/min/1.73m2); Glucose 166 mg/dL (74-106); Lipase 20 U/L (16-77); Magnesium 1.7 mg/dL (1.8-2.4); Potassium 3.7 mmol/L (3.5-5.1); Sodium 135 mmol/L (136-145); TSH (W/Ref FT4) 2.88 uIU/mL (0.36-3.74); Total Protein 8.7 g/dL (6.4-8.2)
[2022-07-29 02:26] LABS: COVID-19 PCR Negative (Negative); Influenza A PCR Negative (Negative); Influenza B PCR Negative (Negative); RSV PCR Negative (Negative)
[2022-07-29 02:39] LABS: Source Nasopharynx
--- NOTE | 2022-07-29 03:15 | DI.CT_ITS ---
Exam(s) CT ABDOMEN PELVIS W EXAM: CT ABDOMEN PELVIS W CLINICAL HISTORY: n/v abd pain, ?sbo. TECHNIQUE: Imaging Protocol: Axial computed tomography images with coronal and sagittal reformatted images were created and reviewed CONTRAST MATERIAL: Intravenous: Omnipaque-350 100cc Oral: None COMPARISON: CT CT CHEST PE CTA from 05/17/2022 FINDINGS: VISUALIZED LUNG BASES: No nodules nor pleural effusions evident. ABDOMEN: There is no ascites. LIVER: There are no focal hepatic lesions evident. No dilated intrahepatic ducts. GALLBLADDER/BILIARY: Is surgically absent. CBD is not dilated. PANCREAS: No evidence of pancreatic mass nor dilatation of the pancreatic duct. SPLEEN: Spleen is not enlarged. No obvious intrasplenic lesions. Splenic and portal veins are paten t. ADRENALS: There are no significant adrenal masses. KIDNEYS:No cysts evident. No solid renal masses. There is a nonobstructive 2 millimeter calculus in lower pole calyx of the left kidney. No hydronephrosis. No calculi in the opposite-right kidney. U reters are not dilated.. ABDOMINAL AORTA: Abdominal aorta is not enlarged. Moderate atherosclerotic involvement of the lower abdominal aorta. No aneurysm. No high-grade obstruction. Inferior mesenteric artery at this level is patent. LYMPH NODES:There is no retroperitoneal nor paraaortic adenopathy. ABDOMINAL WALL: No anterior abdominal hernias evident. Multiple subcutaneous densities, some includi ng air are seen on both sides of the anterior lower abdomen which are probably injection sites. GI: Appearance of transverse and descending colon may reflect colitis although lack of distension may have similar appearance. Similar appearance also seen in the distal half of the sigmoid. PELVIS: GI: Appendix is surgically absent the. no evidence of diverticulosis nor diverticulitis. LYMPH NODES: There is no intrapelvic nor inguinal adenopathy. REPRODUCTIVE: Uterus is surgically absent. There is a cyst in the left ovary which measures 2.5 x 1. 9 cm. Probably dominant follicle. Right ovary difficult to identify. URINARY BLADDER: No calculi nor obvious masses evident OSSEOUS: No fractures and no significant osseous lesions. IMPRESSION: 1. There appears to be circumferential thickening of the wall of the vacuo it parts of the colon incl uding the ascending and transverse colons as well as the distal half of the sigmoid. The areas of th e colon which contain fecal material do not exhibit similar appearance. There is a possibly that thi s is just related to the appearance of the colon with empty lumen. Nevertheless, cannot exclude an e lement of colitis pattern. 2. There is a solitary 2 millimeter nonobstructive calculus in the lower pole left kidney. 3. There is cyst in left ovary measuring 25 x 19 mm. Probably dominant follicle. The uterus is surg ically absent. Right ovary not identified. 4. Multiple anterior abdominal wall subcutaneous densities, some containing air, these most probably being injection sites. No distinct abscess at these levels. RADIATION DOSE DELIVERED: 1,607.67mGy.cm Total DLP DATA REPOSITORY: All CT scans at this facility are submitted to the National Radiology Data Registry (NRDR) Dose Index Registry (DIR) with the [employer] ([employer]). RADIATION OPTIMIZATION: All CT scans at this facility use at least one of these dose optimization te chniques: automated exposure control; mA and/or kV adjustment per patient size (includes targeted exa ms where dose is matched to clinical indication); or iterative reconstruction.
--- NOTE | 2022-07-29 03:15 | DI.CT_ITS ---
Exam(s) CT HEAD WO EXAM: CT HEAD WO CLINICAL HISTORY: headache. TECHNIQUE: Imaging Protocol: Axial computed tomography images with coronal and sagittal reformatted images were created and reviewed COMPARISON: CT CT HEAD WO from 05/17/2022 FINDINGS: There are no skull fractures. There is no fluid in the visualized paranasal sinuses. There is no evidence of intracranial hemorrhage, mass effect, or shift of midline structures. There are no extra-axial fluid collections. The ventricles are not enlarged or shifted and there is no blo od within the ventricular system nor within the basal cisterns. IMPRESSION: No acute intracranial findings on this noninfused CT scan of the brain. No significant change compared to prior CT scan of 05/17/2022. RADIATION DOSE DELIVERED: 732.78mGy.cm Total DLP DATA REPOSITORY: All CT scans at this facility are submitted to the National Radiology Data Registry (NRDR) Dose Index Registry (DIR) with the [employer] ([employer]). RADIATION OPTIMIZATION: All CT scans at this facility use at least one of these dose optimization te chniques: automated exposure control; mA and/or kV adjustment per patient size (includes targeted exa ms where dose is matched to clinical indication); or iterative reconstruction.
[2022-07-29] MEDS: Prochlorperazine 10 MG/2 ML VIAL IVP (03:33)
[2022-07-29] MEDS: Normal Saline - Diluent 50 ML VIAL IJ (03:34)
[2022-07-29] MEDS: Omnipaque 350 MG/ML 100 ML BTL IJ (03:34)
[2022-07-29] MEDS: Normal Saline Flush 10 ML SYR IVP (03:35)
--- NOTE | 2022-07-29 05:13 | DI.VRAD_ITS ---
PROCEDURE INFORMATION: Exam: CT Head Without Contrast Exam date and time: 07/29/2022 3:39 AM Age: 42 years old Clinical indication: Pain; Headache not specified TECHNIQUE: Imaging protocol: Computed tomography of the head without contrast. Radiation optimization: All CT scans at this facility use at least one of these dose optimization techniques: automated exposure control; mA and/or kV adjustment per patient size (includes targeted exams where dose is matched to clinical indication); or iterative reconstruction. COMPARISON: CT HEAD WO 05/17/2022 12:39 PM FINDINGS: Brain: No acute intracranial hemorrhage, mass-effect, midline shift, or extra-axial collection is seen. The valerio white matter differentiation appears preserved. Cerebral ventricles: The ventricular system and basilar cisterns appear appropriate in size and configuration. Paranasal sinuses: The visualized paranasal sinuses appear well-aerated. Mastoid air cells: The visualized mastoid air cells appear well aerated. Auditory system: The middle ear cavities appear clear. Orbital cavities: The globes and intraorbital structures appear grossly intact. Bones/joints: The bony calvarium appears intact. No depressed skull fracture is seen. There is hyperostosis frontalis interna. Soft tissues: No significant scalp lesion is seen. IMPRESSION: No acute intracranial abnormality seen. Dictated and Authenticated by: Ayan Holm MD. Ordering:ANUPAMA Batista MD
--- NOTE | 2022-07-29 05:21 | DI.VRAD_ITS ---
PROCEDURE INFORMATION: Exam: CT Abdomen And Pelvis With Contrast Exam date and time: 07/29/2022 4:01 AM Age: 42 years old Clinical indication: Nausea and vomiting; Abdominal pain; Generalized; Prior surgery; Surgery date: 6+ months; Surgery type: Cholecystectomy, appendectomy, hysterectomy, oophorectomy; Patient HX: N/v pain, R/O sbo TECHNIQUE: Imaging protocol: Computed tomography of the abdomen and pelvis with contrast. Radiation optimization: All CT scans at this facility use at least one of these dose optimization techniques: automated exposure control; mA and/or kV adjustment per patient size (includes targeted exams where dose is matched to clinical indication); or iterative reconstruction. Contrast material: OMNIPAQUE 350; Contrast volume: 100 ml; Contrast route: INTRAVENOUS (IV); COMPARISON: CT ABDOMEN PELVIS W 07/13/2020 9:10 PM FINDINGS: Lungs: Lung bases clear. Liver: Normal appearing liver. Gallbladder and bile ducts: Prior cholecystectomy with postop biliary dilatation. Pancreas: Normal appearing pancreas. Spleen: Normal appearing spleen. Adrenal glands: Normal appearing adrenal glands. Kidneys and ureters: 2 mm nonobstructing left renal calculus. Otherwise normal-appearing kidneys. No hydronephrosis. No obstructing ureteral stones. Stomach and bowel: No oral contrast. Stomach partially decompressed. No small bowel dilatation to suggest obstruction. Apparent mural thickening through the collapsed well evacuated ascending colon and transverse colon. Artifact of incomplete distention? Acute segmental colitis? Normal appearing fecal material through the descending and proximal sigmoid colon. Distal sigmoid colon completely evacuated. Moderate retained fecal material in the rectum. No evidence of focal acute diverticulitis. Appendix: Appendix not identified. Surgical material at the cecal apex suggesting a prior appendectomy. Correlation with surgical history recommended. Intraperitoneal space: No gross ascites or free air. Vasculature: Normal caliber abdominal aorta. Lymph nodes: No pathologically enlarged mesenteric, retroperitoneal, or pelvic sidewall lymph nodes. Urinary bladder: Normal appearing urinary bladder. Reproductive: Prior hysterectomy. Normal-sized left ovary with a 1.7 cm dominant follicle. Right ovary not confidently identified, obscured if present. Bones/joints: No acute fracture seen among the bones of the abdomen or pelvis. Spinal degenerative change with small anterior osteophytes at multiple levels. Soft tissues: Subcutaneous densities with foci of subcutaneous gas in the anterior wall of the pelvis suggesting probable recent subcutaneous injections. Correlation with recent procedure history recommended. IMPRESSION: 1. Apparent mural thickening through the collapsed well evacuated ascending colon, and transverse colon. Artifact of incomplete distention or acute segmental colitis could have this appearance. Clinical correlation is recommended. Normal appearing fecal material in the downstream descending colon, proximal sigmoid colon, and in the rectum. 2. 2 mm nonobstructing left renal calculus. 3. 1.7 cm dominant left ovarian follicle. Dictated and Authenticated by: Ayan Holm MD. Ordering:ANUPAMA Batista MD
== END 2022-07-29 06:34 | disposition home or self-care (01) ==
LOC: ER 06:41
PROVIDERS: Emergency Provider Emergency Medicine; PCP Family Medicine
DX: R11.15 Cyclical vomiting syndrome unrelated to migraine (principal); R51.9 Headache, unspecified; Z20.822 Contact with and (suspected) exposure to COVID-19; R10.13 Epigastric pain; R10.816 Epigastric abdominal tenderness; I10 Essential (primary) hypertension
CPT/HCPCS: 80053; 83690; 87637; 96361; 96374; 96375; 99284; 99285; 70450; 74177; 83735; 84443; 85025; 85610; 85730; J0780; J1790; J3490

== ENCOUNTER 2022-08-28 13:57 | Emergency (ER) | payer MEDICARE, MEDICAID, SELFPAY ==
[2022-08-28 13:58] VITALS: BP 159/112; PULSE 84; RESP 16; TEMP 37.1; O2SAT 100
--- NOTE | 2022-08-28 14:15 | RT.EKG_ITS ---
APPROVED REPORT Exam: Resting ECG Reason for Exam: syncope Patient Location: E HR:61 bpm ECG Measurements Heart Rate 61 AXIS MT 146 P 46 QRSd 78 QRS -29 QT 518 T 29 QTc 523 Conclusion Sinus arrhythmia...V-rate 50- 79, variation>10% Anteroseptal infarct, old...Q >40mS, V1-V2 Prolonged QT interval...QTc >510mS. Sinus. Left axis. T wave inversion lead III. No STEMI. I have reviewed and interpreted ECG and agree with software generated interpretation.
[2022-08-28] MEDS: diphenhydrAMINE 50 MG/ML VIAL 25 MG IVP (15:16)
[2022-08-28] MEDS: Prochlorperazine 10 MG/2 ML VIAL 5 MG IVP (15:22)
[2022-08-28] MEDS: Normal Saline 1,000 ML 1000 ML IV (15:26)
--- NOTE | 2022-08-28 15:31 | ED.GENADUL_ITS ---
Discharge Plan Disposition Patient Disposition: Home Discharge Details Clinical Impression: Nausea & vomiting, Hypomagnesemia, Acute dehydration, Acute hypokalemia Primary Care Provider: Patrica Lopez ED Provider: Kalie Allen Home Meds and New Rx's Prescriptions: New potassium chloride 20 mEq tablet,ER particles/crystals 20 meq PO DAILY Qty: 5 0RF magnesium 250 mg tablet 250 mg PO DAILY Qty: 7 0RF prochlorperazine maleate [Compazine] 10 mg tablet 10 mg PO Q8H PRNQty: 10 0RF Continued sucralfate 1 gram tablet 1 g PO AC & HS Qty: 120 2RF Citracal Plus Bone Density 1 EACH tablet 1 ea PO BID cyproheptadine 4 MG tablet 4 mg PO HS Qty: 90 triamcinolone acetonide 0.1 % cream 1 applic Topical BID PRN (Reason: eczema) Qty: 60 1RF Rx Instructions: Apply to eczema methylphenidate HCl 20 mg tablet 20 mg PO TID MDD 60 mg Qty: 84 0RF epinephrine [EpiPen 2-Nino] 0.3 mg/0.3 mL auto-injector 0.3 mg IM ONCE Qty: 1 1RF fluticasone propionate [Flovent HFA] 220 mcg/actuation HFA aerosol inhaler 2 inh Inhalation BID Qty: 3 4RF omeprazole 40 mg capsule,delayed release(DR/EC) 40 mg PO DAILY Qty: 90 4RF clotrimazole-betamethasone 1-0.05 % cream 1 applic Topical BID PRN (Reason: rash) Qty: 45 1RF Rx Instructions: Apply to skin folds albuterol sulfate [ProAir HFA] 90 mcg/actuation HFA aerosol inhaler 2 puff Inhalation Q6H PRN MDD 6 puffs Qty: 3 4RF ondansetron HCl 8 mg tablet 8 mg PO BID PRN (Reason: nausea and vomiting) Qty: 20 0RF sumatriptan succinate 6 mg/0.5 mL pen injector 6 mg subcut ONCE MDD 12mg PRN (Reason: migraine headache) Qty: 90 1RF Rx Instructions: May repeat dose once in 1 hour if headache persists clonazepam 1 mg tablet 1 mg PO TID PRN (Reason: anxiety) Qty: 90 0RF Hold Instructions: Resume on 05/31/22. Hold until further instructions by PCP) naloxone [Narcan] 4 MG spray,non-aerosol 4 mg NS DAILY PRN PRNQty: 2 0RF Rx Instructions: One spray (4mg) intranasally into one nostril. Use a new nasal spray for subsequent dose in alternate nostril if needed. May repeat once after initial dose in 2-3 minutes. polyethylene glycol 3350 [Miralax] 17 gram Powder In Packet 17 g PO DAILY PRN Zyrtec 10 mg Capsule 10 mg PO DAILY topiramate [Topamax] 200 mg tablet 400 mg PO DAILY Rx Instructions: Brand name medically necessary acidophilus-pectin, citrus 25 million cell -100 mg tablet 1 tab PO DAILY albuterol sulfate 2.5 mg /3 mL (0.083 %) Solution For Nebulization 2.5 mg INHALATION TID ascorbic acid (vitamin C) [Vitamin C] 500 mg Tablet 500 mg PO BID Qty: 60 0RF [id number]-[id number] [Fioricet] 50-300-40 mg capsule 1 cap PO Q4H PRNQty: 60 0RF Rx Instructions: Take 1-2 tabs as needed for WILLETT, not to exceed 6 tabs in 24 hours cholecalciferol (vitamin D3) [Vitamin D3] 50 mcg (2,000 unit) capsule 50 mcg PO DAILY Qty: 30 0RF melatonin 3 mg Tablet 6 mg PO HS Qty: 30 0RF prochlorperazine maleate [Compazine] 10 mg tablet 10 mg PO TID PRNQty: 60 0RF promethazine 25 mg tablet 25 mg PO TID PRNQty: 60 0RF (DME) inhalational spacing device 1 EACH spacer MISCELLANEOUS levothyroxine 125 mcg tablet 125 mcg PO HS hydrocodone-acetaminophen 10-300 mg tablet 1 tab PO Q6H PRNQty: 20 0RF enoxaparin 80 mg/0.8 mL syringe 80 mg subcut Q12H Qty: 60 0RF lorazepam 1 mg tablet 1 mg sublingual TID PRNQty: 30 0RF diphenhydramine HCl [Benadryl Allergy] 25 mg tablet 100 mg PO HS Patient Comments: Take 4 tablet by mouth at bedtime budesonide-formoterol [Symbicort] 160-4.5 mcg/actuation HFA aerosol inhaler 1 inh INHALATION QDAY Patient Comments: INHALE TWO PUFFS BY MOUTH TWICE A DAY AND NEEDED ondansetron 4 mg tablet,disintegrating 4 mg PO Q8H PRN (Reason: nausea and vomiting) Qty: 30 0RF Discharge Instructions Instructions: Dehydration (ED), Hypokalemia (ED), Acute Nausea and Vomiting (ED), Hypomagnesemia (ED) Additional Instructions: Take the potassium and magnesium, do not take your cyproheptadine the same day you take the potassium Resume your Lovenox injections Take Compazine as prescribed Clear liquid diet only until you are able to tolerate them without nausea and then you may incorporate bland diet Steroid from marijuana Follow-up with your doctor Return earlier should you have new or worsening complaints Discharge Data Discharge Date/Time-TO BE ENTERED AT DEPARTURE: 08/28/22 19:26 Medical Decision Making <Huber Nam NP - Last Filed: 08/29/22 13:21> Patient presenting to the emergency department for chief complaint of abdominal pain. Patient reports that this is been intermittent for the past couple months but this episodes seem to start last night. Patient denies any specific exacerbating event. Denies fever chills, diarrhea, urinary or vaginal symptoms. She does state that she has had CT imaging in the past which was unremarkable. Patient has extensive list of allergies but states no specific foods or medications have seem to make this worse or better. Patient has history of Leiden factor V , on anticoagulation, panic disorder, cyclic vomiting, irretractable nausea vomiting, colitis gastroesophagitis cannabis induced vomiting. Physical exam shows epigastric tenderness and diffuse abdominal tenderness but no guarding, no rigidity, no peritoneal findings. We will plan on checking patient's labs and treating her symptomatically pending results. <TYRON Zuleta - Last Filed: 08/28/22 20:14> Patient presenting to the emergency department for chief complaint of abdominal pain. Patient reports that this is been intermittent for the past couple months but this episodes seem to start last night. Patient denies any specific exacerbating event. Denies fever chills, diarrhea, urinary or vaginal symptoms. She does state that she has had CT imaging in the past which was unremarkable. Patient has extensive list of allergies but states no specific foods or medications have seem to make this worse or better. Patient has history of Leiden factor V , on anticoagulation, panic disorder, cyclic vomiting, irretractable nausea vomiting, colitis gastroesophagitis cannabis induced vomiting. Physical exam shows epigastric tenderness and diffuse abdominal tenderness but no guarding, no rigidity, no peritoneal findings. We will plan on checking patient's labs and treating her symptomatically pending results. 08/28/22 LB: care accepted and transition from Krish Viv pending labs and medication administration/fluids Patient is feeling improvement on reassessment, ordered an additional 5 mg of Compazine, Levsin, Tylenol, and 1 mg of Ativan, on reassessment she is able to tolerate miguel eleazar and is requesting discharge home Her magnesium is 1.6, she is given oral magnesium for home, her potassium is 3.4 she is given oral potassium for home Prescription for Compazine Close outpatient reassessment recommended with her primary care physician She is encouraged to have her blood pressure rechecked by her doctor as well, she is able to tolerate p.o. at time of reassessment stable for discharge home at this time HPI <Huber Nam NP - Last Filed: 08/29/22 13:21> General Mode of arrival: ambulatory . Date/Time Provider Initiated Documentation: 08/28/22 14:24 . Limitations to Documentation: no limitations . Information obtained by: patient . History of Present Illness 42 year old F presents to the emergency department with the chief complaint of Nausea vomiting belly pain, described as moderate and similar to prior episodes, with intensity rated at 6. Quality is described as aching, and is localized to the abdomen. Patient started experiencing this day(s) and it has been intermittent (for months). No relieving factors improve symptom(s), Eating worsens symptoms . Patient notes no other symptoms.. Patient did receive the following treatments prior to arrival, none Related Data Home Medications Medication Instructions Recorded Confirmed calcium carb,cit 300 mg-D3 200 1 ea PO BID 11/09/12 05/17/22 unit-min no.34-genistein 13.5 mg tablet (Citracal Plus Bone Density Builder) cyproheptadine 4 mg tablet 4 mg PO HS #90 tab-caps 06/04/16 05/17/22 naloxone 4 mg/actuation nasal 4 mg NS DAILY PRN PRN #2 sprays 12/08/16 05/17/22 spray (Narcan) triamcinolone acetonide 0.1 % 1 applic topical BID PRN eczema 09/05/19 05/17/22 topical cream #60 grams methylphenidate HCl 20 mg tablet 20 mg PO TID #84 tab-caps 10/20/19 05/17/22 diphenhydramine HCl 25 mg tablet 100 mg PO HS 12/13/19 05/17/22 (Benadryl Allergy) sucralfate 1 gram tablet 1 g PO AC & HS #120 tabs 12/30/19 05/17/22 clotrimazole-betamethasone 1 1 applic topical BID PRN rash #45 02/22/20 05/17/22 %-0.05 % topical cream grams epinephrine 0.3 mg/0.3 mL 0.3 mg (0.3 mL) IM ONCE #1 ea 02/22/20 05/17/22 injection, auto-injector (EpiPen 2-Nino) fluticasone propionate 220 2 inh inhalation BID ##3 02/22/20 05/17/22 mcg/actuation HFA aerosol inhaler (Flovent HFA) omeprazole 40 mg capsule,delayed 40 mg PO DAILY GERD #90 caps 02/22/20 05/17/22 release albuterol sulfate 90 mcg/actuation 2 puff inhalation Q6H PRN ##3 03/07/20 05/17/22 aerosol inhaler (ProAir HFA) ondansetron HCl 8 mg tablet 8 mg PO BID PRN nausea and 03/07/20 05/17/22 vomiting #20 tabs sumatriptan succinate 6 mg/0.5 mL 6 mg (0.5 mL) subcut ONCE PRN 03/07/20 05/17/22 subcutaneous pen injector migraine headache #90 SYRGS clonazepam 1 mg tablet 1 mg PO TID PRN anxiety #90 tabs 03/20/20 05/17/22 acidophilus 25 million 1 tab PO DAILY 08/16/20 05/17/22 cell-pectin, citrus 100 mg tablet cetirizine 10 mg capsule (Zyrtec) 10 mg PO DAILY 08/16/20 05/17/22 polyethylene glycol 3350 17 gram 17 g PO DAILY PRN 08/16/20 05/17/22 oral powder packet (Miralax) topiramate 200 mg tablet (Topamax) 400 mg PO DAILY 08/16/20 05/17/22 albuterol sulfate 2.5 mg/3 mL 2.5 mg inhalation TID 05/03/21 05/17/22 (0.083 %) solution for nebulization ascorbic acid (vitamin C) 500 mg 500 mg PO BID #60 tabs 05/04/21 05/17/22 tablet (Vitamin C) ihphgegada-sumxejzveswfp-ldbaaygq 1 cap PO Q4H PRN #60 caps 05/04/21 05/17/22 50 mg-300 mg-40 mg capsule (Fioricet) cholecalciferol (vitamin D3) 50 50 mcg PO DAILY #30 caps 05/04/21 05/17/22 mcg (2,000 unit) capsule (Vitamin D3) melatonin 3 mg tablet 6 mg PO HS #30 tabs 05/04/21 05/17/22 prochlorperazine maleate 10 mg 10 mg PO TID PRN #60 tabs 05/04/21 05/17/22 tablet (Compazine) promethazine 25 mg tablet 25 mg PO TID PRN #60 tabs 05/04/21 05/17/22 budesonide-formoterol HFA 160 1 inh inhalation QDAY 01/22/22 05/17/22 mcg-4.5 mcg/actuation aerosol inhaler (Symbicort) inhalational spacing device 05/17/22 05/17/22 levothyroxine 125 mcg tablet 125 mcg PO HS 05/17/22 05/17/22 enoxaparin 80 mg/0.8 mL 80 mg (0.8 mL) subcut Q12H #60 05/19/22 subcutaneous syringe SYRGS hydrocodone 10 mg-acetaminophen 1 tab PO Q6H PRN #20 tabs 05/19/22 300 mg tablet lorazepam 1 mg tablet 1 mg sublingual TID PRN #30 tabs 05/19/22 ondansetron 4 mg disintegrating 4 mg PO Q8H PRN nausea and 07/29/22 tablet vomiting #30 tabs magnesium 250 mg tablet 250 mg PO DAILY #7 tabs 08/28/22 potassium chloride 20 mEq 20 meq PO DAILY #5 tabs 08/28/22 tablet,extended release(part/cryst) prochlorperazine maleate 10 mg 10 mg PO Q8H PRN #10 tabs 08/28/22 tablet (Compazine) Previous Rx's Medication Instructions Recorded naloxone 4 mg/actuation nasal 4 mg NS DAILY PRN PRN #2 sprays 12/08/16 spray (Narcan) triamcinolone acetonide 0.1 % 1 applic topical BID PRN eczema 09/05/19 topical cream #60 grams methylphenidate HCl 20 mg tablet 20 mg PO TID #84 tab-caps 10/20/19 sucralfate 1 gram tablet 1 g PO AC & HS #120 tabs 12/30/19 clotrimazole-betamethasone 1 1 applic topical BID PRN rash #45 02/22/20 %-0.05 % topical cream grams epinephrine 0.3 mg/0.3 mL 0.3 mg (0.3 mL) IM ONCE #1 ea 02/22/20 injection, auto-injector (EpiPen 2-Nino) fluticasone propionate 220 2 inh inhalation BID ##3 02/22/20 mcg/actuation HFA aerosol inhaler (Flovent HFA) omeprazole 40 mg capsule,delayed 40 mg PO DAILY GERD #90 caps 02/22/20 release albuterol sulfate 90 mcg/actuation 2 puff inhalation Q6H PRN ##3 03/07/20 aerosol inhaler (ProAir HFA) ondansetron HCl 8 mg tablet 8 mg PO BID PRN nausea and 03/07/20 vomiting #20 tabs sumatriptan succinate 6 mg/0.5 mL 6 mg (0.5 mL) subcut ONCE PRN 03/07/20 subcutaneous pen injector migraine headache #90 SYRGS clonazepam 1 mg tablet 1 mg PO TID PRN anxiety #90 tabs 03/20/20 ascorbic acid (vitamin C) 500 mg 500 mg PO BID #60 tabs 05/04/21 tablet (Vitamin C) mlzfbsooeu-fcnxgqytbfqdq-lzphabvf 1 cap PO Q4H PRN #60 caps 05/04/21 50 mg-300 mg-40 mg capsule (Fioricet) cholecalciferol (vitamin D3) 50 50 mcg PO DAILY #30 caps 05/04/21 mcg (2,000 unit) capsule (Vitamin D3) melatonin 3 mg tablet 6 mg PO HS #30 tabs 05/04/21 prochlorperazine maleate 10 mg 10 mg PO TID PRN #60 tabs 05/04/21 tablet (Compazine) promethazine 25 mg tablet 25 mg PO TID PRN #60 tabs 05/04/21 enoxaparin 80 mg/0.8 mL 80 mg (0.8 mL) subcut Q12H #60 05/19/22 subcutaneous syringe SYRGS hydrocodone 10 mg-acetaminophen 1 tab PO Q6H PRN #20 tabs 05/19/22 300 mg tablet lorazepam 1 mg tablet 1 mg sublingual TID PRN #30 tabs 05/19/22 ondansetron 4 mg disintegrating 4 mg PO Q8H PRN nausea and 07/29/22 tablet vomiting #30 tabs magnesium 250 mg tablet 250 mg PO DAILY #7 tabs 08/28/22 potassium chloride 20 mEq 20 meq PO DAILY #5 tabs 08/28/22 tablet,extended release(part/cryst) prochlorperazine maleate 10 mg 10 mg PO Q8H PRN #10 tabs 08/28/22 tablet (Compazine) Allergies Allergy/AdvReac Type Severity Reaction Status Date / Time aripiprazole [From Abilify] Allergy Severe Rash, hives Verified 05/17/22 14:35 doxycycline Allergy Severe Anaphylaxsi Verified 05/17/22 14:35 s levetiracetam [From Keppra] Allergy Severe RASH/HIVES Verified 05/17/22 14:35 sulfamethoxazole Allergy Severe Hives Verified 05/17/22 14:35 venom-honey bee Allergy Severe unknown Verified 05/17/22 14:35 Penicillins Allergy Intermediate Skin Rash Verified 05/17/22 14:35 chlorhexidine Allergy Unknown unknown Verified 05/17/22 14:35 Sulfa (Sulfonamide Allergy Verified 05/17/22 14:35 Antibiotics) mold AdvReac Severe Wheezing Verified 05/17/22 14:35 oxycodone [Oxycodone] AdvReac Severe vomits Verified 05/17/22 14:35 paroxetine AdvReac Severe Irritability Verified 05/17/22 14:35 and anger dicloxacillin [Dicloxacillin] AdvReac Mild Nausea, GI Verified 05/17/22 14:35 upset gabapentin AdvReac Mild hives Verified 05/17/22 14:35 prednisone AdvReac Agitation Verified 05/17/22 14:35 trazodone AdvReac shortness Verified 05/17/22 14:35 of breath verapamil [Verapamil] AdvReac Worsening Verified 05/17/22 14:35 migraine nuts Allergy Severe Anaphylaxsi Uncoded 05/17/22 14:35 s General Stated Complaint: Nausea/Vomit/Diar RYNE: 3 Review of Systems <Huber Nam NP - Last Filed: 08/29/22 13:21> Constitutional Constitutional: Denies chills, Denies fever(s) and Reports poor appetite Cardiovascular Cardiovascular: Denies chest pain and Denies dyspnea Respiratory Respiratory: Denies cough and Denies dyspnea Gastrointestinal Gastrointestinal: Reports as per HPI, Reports abdominal pain, Denies melena, Denies change in bowel habits, Denies constipation, Denies diarrhea, Reports nausea and Reports vomiting Genitourinary Genitourinary: Denies hematuria, Denies urinary incontinence, Denies urinary hesitancy and Denies urinary urgency Integumentary/Breasts Skin/Breast: Denies rash PFSH <Huber Nam NP - Last Filed: 08/29/22 13:21> All Active Problems (Updated 08/29/22 @ 00:03 by TRAV STRANGE) Nausea & vomiting (Acute) Hypomagnesemia (Acute) Acute dehydration (Acute) Acute hypokalemia (Acute) Pulmonary embolism (Acute) Anxiety (Chronic) DVT prophylaxis (Acute) Intractable nausea and vomiting (Acute) Enterocolitis (Acute) Gastroesophagitis (Acute) Leukocytosis, unspecified (Acute) Intractable nausea and vomiting (Acute) Chronic anticoagulation (Chronic) On coumadin Cyclic vomiting syndrome (Acute) Panic disorder (Chronic 03/21/16) Chronic back pain greater than 3 months duration (Chronic 12/29/14) ADHD (attention deficit hyperactivity disorder), 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) B12 deficiency (Chronic) Medical History Acute deep vein thrombosis (DVT) of left lower extremity Acute renal insufficiency Asthma (11/08/12) Candidiasis Cellulitis of left leg Chronic anticoagulation Cyst of fallopian tube Depression Factor V Leiden mutation GERD (gastroesophageal reflux disease) Hematuria History of DVT (deep vein thrombosis) Hypothyroidism Iatrogenic pulmonary embolism and infarction Intractable vomiting with nausea Left buttock abscess Left lower quadrant pain (01/27/12) Migraine headache Nephrolithiasis Normocytic anemia Orbital cellulitis on left Other enthesopathies, not elsewhere classified (03/21/16) Neck Preseptal cellulitis of left eye Primary hypercoagulable state Recurrent deep vein thrombosis (DVT) Right lower quadrant abdominal pain inflamed/ruptured fallopian tube on the right Thrombosis of arteries of lower extremity Vaginal candidiasis Surgical History Abdominal hysterectomy (~2009) 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) Arthroplasty of knee (~1999) left Bilateral salpingectomy with oophorectomy (~2008) Cervical Conization/LEEP LEEP 2003 [facility] BX 2003 Cholecystectomy History of arthroscopy of knee S/P appendectomy (12/24/17) Dr Veliz - Lap appy and lap excision of R fallopian tube remnant Status post cholecystectomy Status post LEEP (loop electrosurgical excision procedure) of cervix THUMB RECONSTRUCTION left; in childhood Social History Smoking/Tobacco Use Status: Never Smoking risk assessment performed?: Yes Alcohol Intake: former Drug use: Daily Substance use type: marijuana Current gender identity: female Do you feel safe at home: Yes Do you feel safe in your relationship?: Yes Additional Social history: Patient is and with one child. Exam <Huber Nam NP - Last Filed: 08/29/22 13:21> Const General: cooperative Orientation: alert, awake and oriented x3 Resp Effort & Inspection: normal respiratory effort and able to speak in complete sentences Auscultation: clear to auscultation bilaterally Cardio Rate: regular rate Rhythm: regular rhythm Heart Sounds: S1 normal and S2 normal GI Palpation: soft, not firm, no guarding, no masses, no pulsatile masses, not rigid, no splenomegaly and tender (More so over epigastrium but general diffuse) in the epigastrum Auscultation: normal bowel sounds Back/Spine/Pelvis Back: no CVA tenderness Neuro General: patient alert, patient awake, patient oriented x3, gait normal and moves all extremities Course <Huber Nam NP - Last Filed: 08/29/22 13:21> Vital Signs Vital signs: Vital Signs Temperature 37.1 C 08/28/22 13:58 Pulse 84 08/28/22 13:58 Respiratory Rate 16 08/28/22 13:58 Blood Pressure 159/112 H 08/28/22 13:58 Pulse Oximetry 100 08/28/22 13:58 Temperature 37.1 C 08/28/22 13:58 Temperature Source Temporal Artery Scan 08/28/22 13:58 Pulse 84 08/28/22 13:58 Respiratory Rate 16 08/28/22 13:58 Blood Pressure 159/112 H 08/28/22 13:58 Blood Pressure Position Sitting 08/28/22 13:58 Pulse Oximetry 100 08/28/22 13:58 Oxygen Delivery Method Room Air 08/28/22 13:58 Oxygen Flow Rate 0 08/28/22 13:58 Pain Level 8 08/28/22 13:58 Sign Out <Huber Nam NP - Last Filed: 08/29/22 13:21> Sign Out Data: Sign Out Comment: Patient signed out pending review of labs and reassessment after medication and fluids for nausea vomiting belly pain. Last updated by Huber Nam NP at 08/28/22 16:26
[2022-08-28 15:45] LABS: Abs Immature Grans 0.06 10^3/uL (0.0-0.06); Absolute Basophil Count 0.01 10^3/uL (0.0-0.2); Absolute Lymphocyte Count 0.76 10^3/uL (1.2-3.4); Absolute Monocyte Count 0.16 10^3/uL (0.1-0.8); Absolute Neutrophil Count 12.64 10^3/uL (1.2-6.7); Basophils % 0.1; HCT 46.8 % (36.0-46.0); HGB 15.8 g/dL (11.2-15.7); Immature Grans % 0.4; Lymphocytes % 5.6; MCH 27.3 pg (27.0-33.0); MCHC 33.8 % (32.0-36.0); MCV 81 fL (80-95); Monocytes % 1.2; Neutrophils % 92.7; Platelet Count 342 10^3/uL (130-400); RBC 5.79 10^6/uL (3.93-5.22); RDW 13.2 % (11.7-14.6); RDW-SD 38.5 fL; WBC 13.63 10^3/uL (4.4-10.8)
[2022-08-28 15:49] VITALS: BP 179/100; PULSE 79; RESP 16; TEMP 36.9; O2SAT 98
[2022-08-28 15:59] LABS: ALT 13 U/L (14-59); AST 9 U/L (15-37); Albumin 4.7 g/dL (3.4-5.0); Alkaline Phosphatase 63 U/L (46-116); Anion Gap 14.8 mmol/L (3-11); BUN 17 mg/dL (7-18); Bilirubin, Total 0.5 mg/dL (0.2-1.0); CO2 21.2 mmol/L (21.0-32.0); Chloride 102 mmol/L (98-107); Estimated GFR 71.69 (mL/min/1.73m2); Glucose 141 mg/dL (74-106); Lipase 17 U/L (16-77); Magnesium 1.6 mg/dL (1.8-2.4); Potassium 3.4 mmol/L (3.5-5.1); Sodium 138 mmol/L (136-145); Total Protein 8.8 g/dL (6.4-8.2)
[2022-08-28 16:11] LABS: ETHANOL BLOOD < 3.0 mg/dL (<10)
[2022-08-28 17:47] VITALS: BP 157/91; PULSE 75; RESP 16; TEMP 37.5; O2SAT 98
[2022-08-28] MEDS: LORazepam 2 MG/ML VIAL 1 MG IVP (18:19)
[2022-08-28] MEDS: ACETAMINOPHEN 1,000 MG/100 ML BTL 400 MG IVPB (18:28)
--- NOTE | 2022-08-28 19:01 | NUR.NOTE ---
Nursing Note:Handoff report to Estefania PAIGE
[2022-08-28] MEDS: Prochlorperazine 10 MG TAB PO (19:16)
== END 2022-08-28 19:26 | disposition home or self-care (01) ==
PROVIDERS: Nurse Practitioner Family; Emergency Provider Physician Assistant; PCP Family Medicine
DX: R11.2 Nausea with vomiting, unspecified (principal); E83.42 Hypomagnesemia; E86.0 Dehydration; E87.6 Hypokalemia; Z79.899 Other long term (current) drug therapy
CPT/HCPCS: 80053; 83690; 93005; 96365; 96375; 99284; 80320; 81003; 83735; 85025; 93010; J0131; J0780; J1200; J2060

== ENCOUNTER 2022-09-06 21:38 | Emergency (ER) | payer MEDICARE, MEDICAID, SELFPAY ==
[2022-09-06 21:49] VITALS: BP 158/98; PULSE 95; RESP 18; TEMP 37.2; O2SAT 97
[2022-09-06 21:58] VITALS: RESP 18
--- NOTE | 2022-09-06 22:15 | RT.EKG_ITS ---
APPROVED REPORT Exam: Resting ECG Reason for Exam: JAKE marvin's Patient Location: E HR:78 bpm ECG Measurements Heart Rate 78 AXIS MT 167 P 57 QRSd 80 QRS -28 QT 383 T 29 QTc 436 Conclusion Sinus rhythm...normal P axis, V-rate 60- 99 Inferior infarct, old...Q >35mS, II III aVF Physician: no stemi
[2022-09-06 22:38] LABS: Abs Immature Grans 0.01 10^3/uL (0.0-0.06); Absolute Basophil Count 0.03 10^3/uL (0.0-0.2); Absolute Eosinophil Count 0.41 10^3/uL (0.0-0.7); Absolute Lymphocyte Count 1.91 10^3/uL (1.2-3.4); Absolute Monocyte Count 0.58 10^3/uL (0.1-0.8); Absolute Neutrophil Count 3.55 10^3/uL (1.2-6.7); Basophils % 0.5; Eosinophils % 6.3; HCT 36.2 % (36.0-46.0); HGB 11.9 g/dL (11.2-15.7); Immature Grans % 0.2; Lymphocytes % 29.4; MCH 27.7 pg (27.0-33.0); MCHC 32.9 % (32.0-36.0); MCV 84 fL (80-95); MPV 10.7 fL (8.0-11.0); Monocytes % 8.9; Neutrophils % 54.7; Platelet Count 237 10^3/uL (130-400); RBC 4.29 10^6/uL (3.93-5.22); RDW 13.8 % (11.7-14.6); RDW-SD 42.5 fL; WBC 6.49 10^3/uL (4.4-10.8)
[2022-09-06 22:55] LABS: ALT 17 U/L (14-59); AST 10 U/L (15-37); Albumin 3.6 g/dL (3.4-5.0); Alkaline Phosphatase 54 U/L (46-116); Anion Gap 5.5 mmol/L (3-11); BUN 11 mg/dL (7-18); Bilirubin, Total 0.2 mg/dL (0.2-1.0); CO2 29.5 mmol/L (21.0-32.0); Calcium 8.8 mg/dL (8.5-10.1); Chloride 104 mmol/L (98-107); Estimated GFR 71.69 (mL/min/1.73m2); Glucose 113 mg/dL (74-106); Potassium 4.3 mmol/L (3.5-5.1); Sodium 139 mmol/L (136-145); Total Protein 6.5 g/dL (6.4-8.2)
[2022-09-06 22:58] LABS: INR 0.9 (0.9-1.1); PTT Activated 25.6 sec (21.5-31.9); Prothrombin Time 9.3 sec (9.3-11.0)
[2022-09-06 23:02] LABS: NT-proBNP 83 pg/mL (<300); Troponin I < 50 ng/L (<or=60)
[2022-09-06 23:13] LABS: D-Dimer 243 ng/mlFEU (<500)
--- NOTE | 2022-09-06 23:14 | W.ED.GENAD ---
Discharge Plan Disposition Patient Disposition: Home Condition: Good Discharge Details Clinical Impression: Edema of both lower extremities Primary Care Provider: Patrica Santoro ED Provider: Kobi Powers Home Meds and New Rx's Prescriptions: No Action sucralfate 1 gram tablet 1 g PO AC & HS Qty: 120 2RF Citracal Plus Bone Density 1 EACH tablet 1 ea PO BID cyproheptadine 4 MG tablet 4 mg PO HS Qty: 90 triamcinolone acetonide 0.1 % cream 1 applic Topical BID PRN (Reason: eczema) Qty: 60 1RF Rx Instructions: Apply to eczema methylphenidate HCl 20 mg tablet 20 mg PO TID MDD 60 mg Qty: 84 0RF epinephrine [EpiPen 2-Nino] 0.3 mg/0.3 mL auto-injector 0.3 mg IM ONCE Qty: 1 1RF fluticasone propionate [Flovent HFA] 220 mcg/actuation HFA aerosol inhaler 2 inh Inhalation BID Qty: 3 4RF omeprazole 40 mg capsule,delayed release(DR/EC) 40 mg PO DAILY Qty: 90 4RF clotrimazole-betamethasone 1-0.05 % cream 1 applic Topical BID PRN (Reason: rash) Qty: 45 1RF Rx Instructions: Apply to skin folds albuterol sulfate [ProAir HFA] 90 mcg/actuation HFA aerosol inhaler 2 puff Inhalation Q6H PRN MDD 6 puffs Qty: 3 4RF ondansetron HCl 8 mg tablet 8 mg PO BID PRN (Reason: nausea and vomiting) Qty: 20 0RF sumatriptan succinate 6 mg/0.5 mL pen injector 6 mg subcut ONCE MDD 12mg PRN (Reason: migraine headache) Qty: 90 1RF Rx Instructions: May repeat dose once in 1 hour if headache persists clonazepam 1 mg tablet 1 mg PO TID PRN (Reason: anxiety) Qty: 90 0RF Hold Instructions: Resume on 05/31/22. Hold until further instructions by PCP) naloxone [Narcan] 4 MG spray,non-aerosol 4 mg NS DAILY PRN PRNQty: 2 0RF Rx Instructions: One spray (4mg) intranasally into one nostril. Use a new nasal spray for subsequent dose in alternate nostril if needed. May repeat once after initial dose in 2-3 minutes. polyethylene glycol 3350 [Miralax] 17 gram Powder In Packet 17 g PO DAILY PRN Zyrtec 10 mg Capsule 10 mg PO DAILY topiramate [Topamax] 200 mg tablet 400 mg PO DAILY Rx Instructions: Brand name medically necessary acidophilus-pectin, citrus 25 million cell -100 mg tablet 1 tab PO DAILY albuterol sulfate 2.5 mg /3 mL (0.083 %) Solution For Nebulization 2.5 mg INHALATION TID ascorbic acid (vitamin C) [Vitamin C] 500 mg Tablet 500 mg PO BID Qty: 60 0RF [id number]-yukn [Fioricet] 50-300-40 mg capsule 1 cap PO Q4H PRNQty: 60 0RF Rx Instructions: Take 1-2 tabs as needed for WILLETT, not to exceed 6 tabs in 24 hours cholecalciferol (vitamin D3) [Vitamin D3] 50 mcg (2,000 unit) capsule 50 mcg PO DAILY Qty: 30 0RF melatonin 3 mg Tablet 6 mg PO HS Qty: 30 0RF prochlorperazine maleate [Compazine] 10 mg tablet 10 mg PO TID PRNQty: 60 0RF promethazine 25 mg tablet 25 mg PO TID PRNQty: 60 0RF (DME) inhalational spacing device 1 EACH spacer MISCELLANEOUS levothyroxine 125 mcg tablet 125 mcg PO HS hydrocodone-acetaminophen 10-300 mg tablet 1 tab PO Q6H PRNQty: 20 0RF enoxaparin 80 mg/0.8 mL syringe 80 mg subcut Q12H Qty: 60 0RF lorazepam 1 mg tablet 1 mg sublingual TID PRNQty: 30 0RF potassium chloride 20 mEq tablet,ER particles/crystals 20 meq PO DAILY Qty: 5 0RF magnesium 250 mg tablet 250 mg PO DAILY Qty: 7 0RF prochlorperazine maleate [Compazine] 10 mg tablet 10 mg PO Q8H PRNQty: 10 0RF diphenhydramine HCl [Benadryl Allergy] 25 mg tablet 100 mg PO HS Patient Comments: Take 4 tablet by mouth at bedtime budesonide-formoterol [Symbicort] 160-4.5 mcg/actuation HFA aerosol inhaler 1 inh INHALATION QDAY Patient Comments: INHALE TWO PUFFS BY MOUTH TWICE A DAY AND NEEDED ondansetron 4 mg tablet,disintegrating 4 mg PO Q8H PRN (Reason: nausea and vomiting) Qty: 30 0RF Discharge Instructions Instructions: Leg Edema (ED) Additional Instructions: At this time your CAT scan shows no evidence of blood clots or other significant lung abnormality. I did not personally see any clots on my ultrasound, however this is not formal ultrasonography. We will place an outpatient order on Thursday for bilateral lower extremity ultrasound. Please continue taking your Lovenox as directed. Please use the compression stockings every day, keep your legs elevated, and avoid any salty foods. If you notice any worsening of your symptoms, or any new symptoms such as vomiting, diarrhea, fever, chills, shortness of breath, chest pain, numbness, weakness, or fainting , please return immediately to the emergency department for reevaluation. Please follow up with your primary care provider as soon as possible for reassessment and reevaluation. As always, it was a pleasure participating in your medical care today. 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 She presents today for bilateral lower extremity swelling. Patient states that about 9 to 10 days ago she had multiple episodes of nausea and vomiting and abdominal pain. She missed a few doses of her Lovenox at that time. For the past 7 to 8 days she has consistently been taking her Lovenox as directed. However she has also noticed over the last 4 to 5 days on and off swelling in the lower extremities that seems to come and go. It improves with wraps, and elevation of her legs. She denies any new chest pain, no shortness of breath, no pleuritic chest pain. She denies any other complaints at this time. She denies any recent long trips, surgeries or procedures. No other modifying factors. Exam demonstrates well-appearing female, vital signs are stable. Minimal trace pitting edema for the lower extremities. No focal unilateral calf tenderness, however she is mild achiness throughout. Concern is for DVT versus PE. Her timing of missed dosing could certainly have procured a clot at that time. Bedside limited ultrasound was performed, no evidence of significant right ventricular dilatation, and I do not personally see any evidence of DVT on limited ultrasound in both lower extremities, however this is certainly not a formal ultrasound. We will get a D-dimer, get chest imaging to evaluate for clot burden, monitor closely and reassess. 12:53 AM Laboratory work-up has returned, no significant abnormalities. D-dimer is normal. No white count bandemia or left shift. proBNP is normal suggesting no signs of heart strain. Troponin normal, transaminases normal, patient has not had her evening dose of Lovenox yet. She is going to take this now. At this time with no evidence of large clot burden, and her currently receiving therapy that would be appropriate for clot treatment with her Lovenox, I do not see any additional treatment indication at this time. We will give a dose of Lasix for her mild lower extremity edema. Will recommend compression stockings at home. We will schedule an outpatient ultrasound for Thursday. Discussed red flags for which to return. Patient and family agree with the plan. I have extensively reviewed the treatment plan and discharge instructions with the patient and their family. I have addressed all patient concerns at this time. The patient and family was made aware of what symptoms to monitor for that would warrant a return to the emergency department. Discussed the plan with the patient and family, they demonstrate verbal understanding and agreement with our assessment and plan at this time. The documentation in this chart was dictated using [employer] dictation software. Please excuse any dictation errors. FINDINGS: Pulmonary arteries: No pulmonary emboli. Aorta: No aortic aneurysm. No aortic dissection. Lungs: No consolidation. No masses. Pleural spaces: Unremarkable. No pneumothorax. No pleural effusion. Heart: No cardiomegaly. No pericardial effusion. Lymph nodes: Unremarkable. No enlarged lymph nodes. Bones/joints: Unremarkable. No acute fracture. Soft tissues: Unremarkable. IMPRESSION: No acute findings. Thank you for allowing us to participate in the care of your patient. Dictated and Authenticated by: Johnathon Shore MD 09/07/2022 12:36 AM Eastern Time ([place] & [place]) HPI General Date/Time Provider Initiated Documentation: 09/06/22 21:42. HPI Narrative: 42-year-old female with a past medical history of factor V Leiden mutation, previous DVTs and PEs from a young age, abdominal hysterectomy, appendectomy, cholecystectomy, bilateral salpingo-oophorectomy, who is failed previous types of anticoagulants and is currently on Lovenox 80 mg twice daily. She presents today for bilateral lower extremity swelling. Patient states that about 9 to 10 days ago she had multiple episodes of nausea and vomiting and abdominal pain. She missed a few doses of her Lovenox at that time. For the past 7 to 8 days she has consistently been taking her Lovenox as directed. However she has also noticed over the last 4 to 5 days on and off swelling in the lower extremities that seems to come and go. It improves with wraps, and elevation of her legs. She denies any new chest pain, no shortness of breath, no pleuritic chest pain. She denies any other complaints at this time. She denies any recent long trips, surgeries or procedures. No other modifying factors. Related Data Home Medications Medication Instructions Recorded Confirmed calcium carb,cit 300 mg-D3 200 1 ea PO BID 11/09/12 09/06/22 unit-min no.34-genistein 13.5 mg tablet (Citracal Plus Bone Density Builder) cyproheptadine 4 mg tablet 4 mg PO HS #90 tab-caps 06/04/16 09/06/22 naloxone 4 mg/actuation nasal 4 mg NS DAILY PRN PRN #2 sprays 12/08/16 09/06/22 spray (Narcan) triamcinolone acetonide 0.1 % 1 applic topical BID PRN eczema 09/05/19 09/06/22 topical cream #60 grams methylphenidate HCl 20 mg tablet 20 mg PO TID #84 tab-caps 10/20/19 09/06/22 diphenhydramine HCl 25 mg tablet 100 mg PO HS 12/13/19 09/06/22 (Benadryl Allergy) sucralfate 1 gram tablet 1 g PO AC & HS #120 tabs 12/30/19 09/06/22 clotrimazole-betamethasone 1 1 applic topical BID PRN rash #45 02/22/20 09/06/22 %-0.05 % topical cream grams epinephrine 0.3 mg/0.3 mL 0.3 mg (0.3 mL) IM ONCE #1 ea 02/22/20 09/06/22 injection, auto-injector (EpiPen 2-Nino) fluticasone propionate 220 2 inh inhalation BID ##3 02/22/20 09/06/22 mcg/actuation HFA aerosol inhaler (Flovent HFA) omeprazole 40 mg capsule,delayed 40 mg PO DAILY GERD #90 caps 02/22/20 09/06/22 release albuterol sulfate 90 mcg/actuation 2 puff inhalation Q6H PRN ##3 03/07/20 09/06/22 aerosol inhaler (ProAir HFA) ondansetron HCl 8 mg tablet 8 mg PO BID PRN nausea and 03/07/20 09/06/22 vomiting #20 tabs sumatriptan succinate 6 mg/0.5 mL 6 mg (0.5 mL) subcut ONCE PRN 03/07/20 09/06/22 subcutaneous pen injector migraine headache #90 SYRGS clonazepam 1 mg tablet 1 mg PO TID PRN anxiety #90 tabs 03/20/20 09/06/22 acidophilus 25 million 1 tab PO DAILY 08/16/20 09/06/22 cell-pectin, citrus 100 mg tablet cetirizine 10 mg capsule (Zyrtec) 10 mg PO DAILY 08/16/20 09/06/22 polyethylene glycol 3350 17 gram 17 g PO DAILY PRN 08/16/20 09/06/22 oral powder packet (Miralax) topiramate 200 mg tablet (Topamax) 400 mg PO DAILY 08/16/20 09/06/22 albuterol sulfate 2.5 mg/3 mL 2.5 mg inhalation TID 05/03/21 09/06/22 (0.083 %) solution for nebulization ascorbic acid (vitamin C) 500 mg 500 mg PO BID #60 tabs 05/04/21 09/06/22 tablet (Vitamin C) vbyqmsavhe-rvkjeequbalcf-xzgvrrlt 1 cap PO Q4H PRN #60 caps 05/04/21 09/06/22 50 mg-300 mg-40 mg capsule (Fioricet) cholecalciferol (vitamin D3) 50 50 mcg PO DAILY #30 caps 05/04/21 09/06/22 mcg (2,000 unit) capsule (Vitamin D3) melatonin 3 mg tablet 6 mg PO HS #30 tabs 05/04/21 09/06/22 prochlorperazine maleate 10 mg 10 mg PO TID PRN #60 tabs 05/04/21 09/06/22 tablet (Compazine) promethazine 25 mg tablet 25 mg PO TID PRN #60 tabs 05/04/21 09/06/22 budesonide-formoterol HFA 160 1 inh inhalation QDAY 01/22/22 09/06/22 mcg-4.5 mcg/actuation aerosol inhaler (Symbicort) inhalational spacing device 05/17/22 09/06/22 levothyroxine 125 mcg tablet 125 mcg PO HS 05/17/22 09/06/22 enoxaparin 80 mg/0.8 mL 80 mg (0.8 mL) subcut Q12H #60 05/19/22 09/06/22 subcutaneous syringe SYRGS hydrocodone 10 mg-acetaminophen 1 tab PO Q6H PRN #20 tabs 05/19/22 09/06/22 300 mg tablet lorazepam 1 mg tablet 1 mg sublingual TID PRN #30 tabs 05/19/22 09/06/22 ondansetron 4 mg disintegrating 4 mg PO Q8H PRN nausea and 07/29/22 09/06/22 tablet vomiting #30 tabs magnesium 250 mg tablet 250 mg PO DAILY #7 tabs 08/28/22 09/06/22 potassium chloride 20 mEq 20 meq PO DAILY #5 tabs 08/28/22 09/06/22 tablet,extended release(part/cryst) prochlorperazine maleate 10 mg 10 mg PO Q8H PRN #10 tabs 08/28/22 09/06/22 tablet (Compazine) Previous Rx's Medication Instructions Recorded naloxone 4 mg/actuation nasal 4 mg NS DAILY PRN PRN #2 sprays 12/08/16 spray (Narcan) triamcinolone acetonide 0.1 % 1 applic topical BID PRN eczema 09/05/19 topical cream #60 grams methylphenidate HCl 20 mg tablet 20 mg PO TID #84 tab-caps 10/20/19 sucralfate 1 gram tablet 1 g PO AC & HS #120 tabs 12/30/19 clotrimazole-betamethasone 1 1 applic topical BID PRN rash #45 02/22/20 %-0.05 % topical cream grams epinephrine 0.3 mg/0.3 mL 0.3 mg (0.3 mL) IM ONCE #1 ea 02/22/20 injection, auto-injector (EpiPen 2-Nino) fluticasone propionate 220 2 inh inhalation BID ##3 02/22/20 mcg/actuation HFA aerosol inhaler (Flovent HFA) omeprazole 40 mg capsule,delayed 40 mg PO DAILY GERD #90 caps 02/22/20 release albuterol sulfate 90 mcg/actuation 2 puff inhalation Q6H PRN ##3 03/07/20 aerosol inhaler (ProAir HFA) ondansetron HCl 8 mg tablet 8 mg PO BID PRN nausea and 03/07/20 vomiting #20 tabs sumatriptan succinate 6 mg/0.5 mL 6 mg (0.5 mL) subcut ONCE PRN 03/07/20 subcutaneous pen injector migraine headache #90 SYRGS clonazepam 1 mg tablet 1 mg PO TID PRN anxiety #90 tabs 03/20/20 ascorbic acid (vitamin C) 500 mg 500 mg PO BID #60 tabs 05/04/21 tablet (Vitamin C) mdadiwwjow-fpzhssaguddhr-cfpfgdfu 1 cap PO Q4H PRN #60 caps 05/04/21 50 mg-300 mg-40 mg capsule (Fioricet) cholecalciferol (vitamin D3) 50 50 mcg PO DAILY #30 caps 05/04/21 mcg (2,000 unit) capsule (Vitamin D3) melatonin 3 mg tablet 6 mg PO HS #30 tabs 05/04/21 prochlorperazine maleate 10 mg 10 mg PO TID PRN #60 tabs 05/04/21 tablet (Compazine) promethazine 25 mg tablet 25 mg PO TID PRN #60 tabs 05/04/21 enoxaparin 80 mg/0.8 mL 80 mg (0.8 mL) subcut Q12H #60 05/19/22 subcutaneous syringe SYRGS hydrocodone 10 mg-acetaminophen 1 tab PO Q6H PRN #20 tabs 05/19/22 300 mg tablet lorazepam 1 mg tablet 1 mg sublingual TID PRN #30 tabs 05/19/22 ondansetron 4 mg disintegrating 4 mg PO Q8H PRN nausea and 07/29/22 tablet vomiting #30 tabs magnesium 250 mg tablet 250 mg PO DAILY #7 tabs 08/28/22 potassium chloride 20 mEq 20 meq PO DAILY #5 tabs 08/28/22 tablet,extended release(part/cryst) prochlorperazine maleate 10 mg 10 mg PO Q8H PRN #10 tabs 08/28/22 tablet (Compazine) Allergies Allergy/AdvReac Type Severity Reaction Status Date / Time aripiprazole [From Abilify] Allergy Severe Rash, hives Verified 09/06/22 21:57 doxycycline Allergy Severe Anaphylaxsi Verified 09/06/22 21:57 s levetiracetam [From Keppra] Allergy Severe RASH/HIVES Verified 09/06/22 21:57 sulfamethoxazole Allergy Severe Hives Verified 09/06/22 21:57 venom-honey bee Allergy Severe unknown Verified 09/06/22 21:57 Penicillins Allergy Intermediate Skin Rash Verified 09/06/22 21:57 chlorhexidine Allergy Unknown unknown Verified 09/06/22 21:57 Sulfa (Sulfonamide Allergy Verified 09/06/22 21:57 Antibiotics) mold AdvReac Severe Wheezing Verified 09/06/22 21:57 oxycodone [Oxycodone] AdvReac Severe vomits Verified 09/06/22 21:57 paroxetine AdvReac Severe Irritability Verified 09/06/22 21:57 and anger dicloxacillin [Dicloxacillin] AdvReac Mild Nausea, GI Verified 09/06/22 21:57 upset gabapentin AdvReac Mild hives Verified 09/06/22 21:57 prednisone AdvReac Agitation Verified 09/06/22 21:57 trazodone AdvReac shortness Verified 09/06/22 21:57 of breath verapamil [Verapamil] AdvReac Worsening Verified 09/06/22 21:57 migraine nuts Allergy Severe Anaphylaxsi Uncoded 09/06/22 21:57 s General Stated Complaint: Vascular RYNE: 3 Review of Systems All systems reviewed & are unremarkable except as noted in HPI and below PFSH All Active Problems (Updated 09/07/22 @ 00:48 by Kobi Powers DO) Nausea & vomiting (Acute) Hypomagnesemia (Acute) Acute dehydration (Acute) Acute hypokalemia (Acute) Edema of both lower extremities (Acute) Pulmonary embolism (Acute) Anxiety (Chronic) DVT prophylaxis (Acute) Intractable nausea and vomiting (Acute) Enterocolitis (Acute) Gastroesophagitis (Acute) Leukocytosis, unspecified (Acute) Intractable nausea and vomiting (Acute) Chronic anticoagulation (Chronic) On coumadin Cyclic vomiting syndrome (Acute) Panic disorder (Chronic 03/21/16) Chronic back pain greater than 3 months duration (Chronic 12/29/14) ADHD (attention deficit hyperactivity disorder), 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) B12 deficiency (Chronic) Medical History Acute deep vein thrombosis (DVT) of left lower extremity Acute renal insufficiency Asthma (11/08/12) Candidiasis Cellulitis of left leg Chronic anticoagulation Cyst of fallopian tube Depression Factor V Leiden mutation GERD (gastroesophageal reflux disease) Hematuria History of DVT (deep vein thrombosis) Hypothyroidism Iatrogenic pulmonary embolism and infarction Intractable vomiting with nausea Left buttock abscess Left lower quadrant pain (01/27/12) Migraine headache Nephrolithiasis Normocytic anemia Orbital cellulitis on left Other enthesopathies, not elsewhere classified (03/21/16) Neck Preseptal cellulitis of left eye Primary hypercoagulable state Recurrent deep vein thrombosis (DVT) Right lower quadrant abdominal pain inflamed/ruptured fallopian tube on the right Thrombosis of arteries of lower extremity Vaginal candidiasis Surgical History Abdominal hysterectomy (~2009) 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) Arthroplasty of knee (~1999) left Bilateral salpingectomy with oophorectomy (~2008) Cervical Conization/LEEP LEEP 2003 [facility] BX 2003 Cholecystectomy History of arthroscopy of knee S/P appendectomy (12/24/17) Dr Veliz - Car appy and lap excision of R fallopian tube remnant Status post cholecystectomy Status post LEEP (loop electrosurgical excision procedure) of cervix THUMB RECONSTRUCTION left; in childhood Social History Smoking/Tobacco Use Status: Never Smoking risk assessment performed?: Yes Alcohol Intake: former Substance use type: does not use Current gender identity: female Do you feel safe at home: Yes Do you feel safe in your relationship?: Yes Additional Social history: unable to assess alone Exam Narrative Exam Narrative: 1.Const: Well-nourished, Well-developed, appearing stated age 2.Eyes: PERRL, no conjunctival injection, and symmetrical lids. 3.ENT: Atraumatic external nose and ears. Moist MM. Neck: Symmetric, trachea midline, No thyromegaly. 4.CVS: +S1/S2, No murmurs or gallops. Peripheral pulses 2+ and equal in all extremities. Brisk capillary refill in all extremities. 5.RESP: Unlabored respiratory effort. Clear to auscultation bilaterally. No wheezes rales or rhonchi 6.GI: Soft, Nontender/Nondistended, No hepatosplenomegaly. No guarding or rebound. 7.MSK: Normocephalic/Atraumatic, Extremities w/o deformity or ttp No cyanosis or clubbing, Normal movement of all extremities. Minimal trace pitting edema of the lower extremities. No focal tenderness. Mild achiness throughout along the posterior calves bilaterally, and medial aspects of the knees and thighs. Patient has marked her lower extremities with the circumferences of them. 8.Skin: Warm, Dry. No rashes or lesions. 9.Neuro: medical collections II-XII grossly intact. Sensation grossly intact, no focal neurologic deficits. 10.Psych: (AAO) x3. Appropriate mood and affect Course Vital Signs Vital signs: Vital Signs Temperature 37.2 C 09/06/22 21:49 Pulse 95 H 09/06/22 21:49 Respiratory Rate 18 09/06/22 21:49 Blood Pressure 158/98 H 09/06/22 21:49 Pulse Oximetry 97 09/06/22 21:49 Temperature 37.2 C 09/06/22 21:49 Temperature Source Oral 09/06/22 21:49 Pulse 95 H 09/06/22 21:49 Respiratory Rate 18 09/06/22 21:58 Respiratory Effort Normal 09/06/22 21:58 Respiratory Depth Normal 09/06/22 21:58 Respiratory Pattern Normal 09/06/22 21:58 Blood Pressure 158/98 H 09/06/22 21:49 Pulse Oximetry 97 09/06/22 21:49 Oxygen Delivery Method Room Air 09/06/22 21:49 Oxygen Flow Rate 0 09/06/22 21:49 Pain Level 9 05/20/23 21:58 Lab/Test Results Lab/Test Results: Laboratory Tests Range/Units 09/06/22 09/06/22 09/06/22 22:30 22:30 22:30 WBC (4.4-10.8) 10^3/uL RBC (3.93-5.22) 10^6/uL Hgb (11.2-15.7) g/dL Hct (36.0-46.0) % MCV (80-95) fL MCH (27.0-33.0) pg MCHC (32.0-36.0) % RDW (11.7-14.6) % Plt Count (130-400) 10^3/uL MPV (8.0-11.0) fL Immature Gran % Neutrophils % Lymphocytes % Monocytes % Eosinophils % Basophils % Nucleated RBC % (0.0-0.3) % Absolute Neutrophils (1.2-6.7) 10^3/uL Absolute Lymphocytes (1.2-3.4) 10^3/uL Absolute Monocytes (0.1-0.8) 10^3/uL Absolute Eosinophils (0.0-0.7) 10^3/uL Absolute Basophils (0.0-0.2) 10^3/uL PT (9.3-11.0) sec INR (0.9-1.1) APTT (21.5-31.9) sec D-Dimer (<500) ng/mlFEU 243 Sodium (136-145) mmol/L 139 Potassium (3.5-5.1) mmol/L 4.3 Chloride (98-107) mmol/L 104 Carbon Dioxide (21.0-32.0) mmol/L 29.5 Anion Gap (3-11) mmol/L 5.5 BUN (7-18) mg/dL 11 Creatinine (0.55-1.02) mg/dL 1.0 Est GFR (CKD-EPI 2020) (mL/min/1.73m2) 71.69 Glucose (74-106) mg/dL 113 H Calcium (8.5-10.1) mg/dL 8.8 Total Bilirubin (0.2-1.0) mg/dL 0.2 AST (15-37) U/L 10 L ALT (14-59) U/L 17 Alkaline Phosphatase (46-116) U/L 54 Troponin I (<or=60) ng/L < 50 NT-Pro-B Natriuret Pep (<300) pg/mL 83 Total Protein (6.4-8.2) g/dL 6.5 Albumin (3.4-5.0) g/dL 3.6 Range/Units 09/06/22 09/06/22 22:30 22:30 WBC (4.4-10.8) 10^3/uL 6.49 RBC (3.93-5.22) 10^6/uL 4.29 Hgb (11.2-15.7) g/dL 11.9 Hct (36.0-46.0) % 36.2 MCV (80-95) fL 84 MCH (27.0-33.0) pg 27.7 MCHC (32.0-36.0) % 32.9 RDW (11.7-14.6) % 13.8 Plt Count (130-400) 10^3/uL 237 MPV (8.0-11.0) fL 10.7 Immature Gran % 0.2 Neutrophils % 54.7 Lymphocytes % 29.4 Monocytes % 8.9 Eosinophils % 6.3 Basophils % 0.5 Nucleated RBC % (0.0-0.3) % 0.0 Absolute Neutrophils (1.2-6.7) 10^3/uL 3.55 Absolute Lymphocytes (1.2-3.4) 10^3/uL 1.91 Absolute Monocytes (0.1-0.8) 10^3/uL 0.58 Absolute Eosinophils (0.0-0.7) 10^3/uL 0.41 Absolute Basophils (0.0-0.2) 10^3/uL 0.03 PT (9.3-11.0) sec 9.3 INR (0.9-1.1) 0.9 APTT (21.5-31.9) sec 25.6 D-Dimer (<500) ng/mlFEU Sodium (136-145) mmol/L Potassium (3.5-5.1) mmol/L Chloride (98-107) mmol/L Carbon Dioxide (21.0-32.0) mmol/L Anion Gap (3-11) mmol/L BUN (7-18) mg/dL Creatinine (0.55-1.02) mg/dL Est GFR (CKD-EPI 2020) (mL/min/1.73m2) Glucose (74-106) mg/dL Calcium (8.5-10.1) mg/dL Total Bilirubin (0.2-1.0) mg/dL AST (15-37) U/L ALT (14-59) U/L Alkaline Phosphatase (46-116) U/L Troponin I (<or=60) ng/L NT-Pro-B Natriuret Pep (<300) pg/mL Total Protein (6.4-8.2) g/dL Albumin (3.4-5.0) g/dL POCUS Exam (ED) Limited Vascular Exam DATE OF EXAM: 09/07/22 TIME OF EXAM: 00:20 PROVIDER THAT PERFORMED THE STUDY: Kobi Powers IS THIS A REPEAT EXAM DURING THIS ENCOUNTER: No Vascular Exam: Left lower extremity REASON FOR EXAM: Concern for DVT left lower extremity VISUALIZED STRUCTURES: Left popliteal vein, Left superficial femoral vein and Left greater saphenous vein PERTINENT FINDINGS/IMPRESSION: No apparent abnormalities Exam Complete and Right lower extremity REASON FOR EXAM: Concern for DVT right lower extremity VISUALIZED STRUCTURES: Right popliteal vein, Right superficial femoral vein and Right greater saphenous vein PERTINENT FINDINGS/
--- NOTE | 2022-09-06 23:15 | DI.CT_ITS ---
Exam(s) CT CHEST PE CTA EXAM: CT CHEST PE CTA CLINICAL HISTORY: hx of pe's, eval for clot burden. TECHNIQUE: Imaging Protocol: Axial CT angiography was performed with multi-slice acquisition and mu lti-planar and/or 3D reconstructions. CONTRAST MATERIAL: Intravenous: Omnipaque 350 contrast volume:100 mL COMPARISON: CT CT CHEST PE CTA from 05/17/[address] ABDOMEN PELVIS W from 07/29/2022 FINDINGS: The examination is limited due to patient motion artifact. Tracheobronchial tree: Patent where visualized. Pulmonary parenchyma: There is a nodular infiltrate in the posterior aspect of the right upper lobe. The lungs are otherwise clear. No architectural distortion. Pulmonary Arteries: No evidence of filling defect to suggest pulmonary emboli. Mediastinum and Meghan: No dominant adenopathy or fluid collection. The esophagus is unremarkable. Visualized thyroid gland: Unremarkable. Pleura: No effusion or pneumothorax. Heart: The heart is not dilated. No coronary artery calcifications are seen. No pericardial effusion. Aorta: Thoracic aorta non-dilated. No evidence of dissection. Upper abdomen: Status post cholecystectomy. Soft tissues: Unremarkable. Bones: Within normal limits for the patient's age. IMPRESSION: 1. No evidence of pulmonary embolism, thoracic aortic dissection or aneurysm. 2. Small nodular infiltrate in the posterior aspect of the right upper lobe. RADIATION DOSE DELIVERED: 558.17mGy.cm Total DLP DATA REPOSITORY: All CT scans at this facility are submitted to the National Radiology Data Registry (NRDR) Dose Index Registry (DIR) with the [employer] (ACR). RADIATION OPTIMIZATION: All CT scans at this facility use at least one of these dose optimization te chniques: automated exposure control; mA and/or kV adjustment per patient size (includes targeted exa ms where dose is matched to clinical indication); or iterative reconstruction.
[2022-09-06] MEDS: Omnipaque 350 MG/ML 100 ML BTL IJ (23:46)
[2022-09-06] MEDS: Normal Saline - Diluent 50 ML VIAL IJ (23:47)
--- NOTE | 2022-09-07 00:36 | DI.VRAD_ITS ---
PROCEDURE INFORMATION: Exam: CTA Chest With Contrast Exam date and time: 09/06/2022 11:31 PM Age: 42 years old Clinical indication: Condition or disease; Other: Clotting disorder - HX of pe's TECHNIQUE: Imaging protocol: Computed tomographic angiography of the chest with contrast. 3D rendering (Not supervised by radiologist): MIP and/or 3D reconstructed images were created by the technologist. Contrast material: OMNIPAQUE 350; Contrast volume: 100 ml; Contrast route: INTRAVENOUS (IV); COMPARISON: CT CHEST PE CTA 05/17/2022 12:46 PM FINDINGS: Pulmonary arteries: No pulmonary emboli. Aorta: No aortic aneurysm. No aortic dissection. Lungs: No consolidation. No masses. Pleural spaces: Unremarkable. No pneumothorax. No pleural effusion. Heart: No cardiomegaly. No pericardial effusion. Lymph nodes: Unremarkable. No enlarged lymph nodes. Bones/joints: Unremarkable. No acute fracture. Soft tissues: Unremarkable. IMPRESSION: No acute findings. Dictated and Authenticated by: Johnathon Shore MD. Ordering:GA Peace MD
[2022-09-07] MEDS: Furosemide 20 MG/2 ML VIAL IVP (00:58)
--- NOTE | 2022-09-07 01:29 | NUR.NOTE ---
DI requisiton faxed to DI for f/u bilat Lower extremity ultrasound, will f/u in ED.Nursing Note:
== END 2022-09-07 01:11 | disposition home or self-care (01) ==
PROVIDERS: Emergency Provider Student in an Organized Health Care Education/Training Program; PCP Family Medicine
DX: R60.0 Localized edema (principal); Z86.711 Personal history of pulmonary embolism; Z79.899 Other long term (current) drug therapy; Z86.718 Personal history of other venous thrombosis and embolism; R06.02 Shortness of breath
CPT/HCPCS: 36415; 71275; 80053; 93005; 93971; 96374; 99285; 83880; 84484; 85025; 85379; 85610; 85730; 93010; 99284; J1941; J3490

== ENCOUNTER 2023-01-04 15:39 | Emergency (ER) | payer MEDICARE, MEDICAID, SELFPAY ==
--- NOTE | 2023-01-04 15:45 | RT.EKG_ITS ---
APPROVED REPORT Exam: Resting ECG Reason for Exam: syncope Patient Location: E HR:64 bpm ECG Measurements Heart Rate 64 AXIS SC 117 P -6 QRSd 73 QRS -40 QT 452 T 42 QTc 468 Conclusion Sinus rhythm...normal P axis, V-rate 60- 99 Left anterior fascicular block...axis(240,-40), init forces inf
[2023-01-04 15:48] VITALS: BP 169/101; PULSE 66; RESP 28; TEMP 35.4; O2SAT 100
[2023-01-04 16:04] VITALS: RESP 16
[2023-01-04] MEDS: LORazepam 2 MG/ML VIAL 1 MG IVP (16:31)
[2023-01-04] MEDS: Prochlorperazine 10 MG/2 ML VIAL IVP (16:31)
[2023-01-04] MEDS: Normal Saline 1,000 ML 1000 ML IV (16:31)
[2023-01-04 16:36] LABS: Abs Immature Grans 0.05 10^3/uL (0.0-0.06); Absolute Basophil Count 0.02 10^3/uL (0.0-0.2); Absolute Eosinophil Count 0.01 10^3/uL (0.0-0.7); Absolute Lymphocyte Count 0.97 10^3/uL (1.2-3.4); Absolute Monocyte Count 0.36 10^3/uL (0.1-0.8); Absolute Neutrophil Count 7.98 10^3/uL (1.2-6.7); Basophils % 0.2; Eosinophils % 0.1; HGB 15.1 g/dL (11.2-15.7); Immature Grans % 0.5; Lymphocytes % 10.3; MCH 27.9 pg (27.0-33.0); MCHC 34.3 % (32.0-36.0); MCV 81 fL (80-95); MPV 10.7 fL (8.0-11.0); Monocytes % 3.8; Neutrophils % 85.1; Platelet Count 276 10^3/uL (130-400); RBC 5.42 10^6/uL (3.93-5.22); RDW 13.2 % (11.7-14.6); RDW-SD 38.8 fL; WBC 9.39 10^3/uL (4.4-10.8)
[2023-01-04 16:50] LABS: ALT 20 U/L (14-59); AST 13 U/L (15-37); Albumin 4.4 g/dL (3.4-5.0); Alkaline Phosphatase 71 U/L (46-116); Anion Gap 13.5 mmol/L (3-11); BUN 12 mg/dL (7-18); Bilirubin, Total 0.6 mg/dL (0.2-1.0); CO2 21.5 mmol/L (21.0-32.0); CREATININE 1.2 mg/dL (0.55-1.02); Calcium 9.9 mg/dL (8.5-10.1); Chloride 102 mmol/L (98-107); Estimated GFR 57.24 (mL/min/1.73m2); Glucose 170 mg/dL (74-106); Potassium 3.9 mmol/L (3.5-5.1); Sodium 137 mmol/L (136-145)
[2023-01-04 16:57] LABS: Lipase 30 U/L (16-77)
[2023-01-04 17:07] LABS: HCG Qual (Serum) Negative
--- NOTE | 2023-01-04 18:40 | ED.GENADUL_ITS ---
Discharge Plan Disposition Patient Disposition: Home Discharge Details Clinical Impression: Nausea & vomiting Primary Care Provider: Patrica Santoro ED Provider: Kalie Allen Home Meds and New Rx's Prescriptions: New promethazine 25 mg tablet 25 mg PO Q6H PRNQty: 10 0RF Continued sucralfate 1 gram tablet 1 g PO AC & HS Qty: 120 2RF Citracal Plus Bone Density 1 EACH tablet 1 ea PO BID cyproheptadine 4 MG tablet 4 mg PO HS Qty: 90 triamcinolone acetonide 0.1 % cream 1 applic Topical BID PRN (Reason: eczema) Qty: 60 1RF Rx Instructions: Apply to eczema methylphenidate HCl 20 mg tablet 20 mg PO TID MDD 60 mg Qty: 84 0RF epinephrine [EpiPen 2-Nino] 0.3 mg/0.3 mL auto-injector 0.3 mg IM ONCE Qty: 1 1RF fluticasone propionate [Flovent HFA] 220 mcg/actuation HFA aerosol inhaler 2 inh Inhalation BID Qty: 3 4RF omeprazole 40 mg capsule,delayed release(DR/EC) 40 mg PO DAILY Qty: 90 4RF clotrimazole-betamethasone 1-0.05 % cream 1 applic Topical BID PRN (Reason: rash) Qty: 45 1RF Rx Instructions: Apply to skin folds albuterol sulfate [ProAir HFA] 90 mcg/actuation HFA aerosol inhaler 2 puff Inhalation Q6H PRN MDD 6 puffs Qty: 3 4RF ondansetron HCl 8 mg tablet 8 mg PO BID PRN (Reason: nausea and vomiting) Qty: 20 0RF sumatriptan succinate 6 mg/0.5 mL pen injector 6 mg subcut ONCE MDD 12mg PRN (Reason: migraine headache) Qty: 90 1RF Rx Instructions: May repeat dose once in 1 hour if headache persists clonazepam 1 mg tablet 1 mg PO TID PRN (Reason: anxiety) Qty: 90 0RF Hold Instructions: Resume on 05/31/22. Hold until further instructions by PCP) naloxone [Narcan] 4 MG spray,non-aerosol 4 mg NS DAILY PRN PRNQty: 2 0RF Rx Instructions: One spray (4mg) intranasally into one nostril. Use a new nasal spray for subsequent dose in alternate nostril if needed. May repeat once after initial dose in 2-3 minutes. polyethylene glycol 3350 [Miralax] 17 gram Powder In Packet 17 g PO DAILY PRN Zyrtec 10 mg Capsule 10 mg PO DAILY topiramate [Topamax] 200 mg tablet 400 mg PO DAILY Rx Instructions: Brand name medically necessary acidophilus-pectin, citrus 25 million cell -100 mg tablet 1 tab PO DAILY albuterol sulfate 2.5 mg /3 mL (0.083 %) Solution For Nebulization 2.5 mg INHALATION TID ascorbic acid (vitamin C) [Vitamin C] 500 mg Tablet 500 mg PO BID Qty: 60 0RF unmtbykfyc-lytcirhcufvqb-hpgi [Fioricet] 50-300-40 mg capsule 1 cap PO Q4H PRNQty: 60 0RF Rx Instructions: Take 1-2 tabs as needed for WILLETT, not to exceed 6 tabs in 24 hours cholecalciferol (vitamin D3) [Vitamin D3] 50 mcg (2,000 unit) capsule 50 mcg PO DAILY Qty: 30 0RF melatonin 3 mg Tablet 6 mg PO HS Qty: 30 0RF prochlorperazine maleate [Compazine] 10 mg tablet 10 mg PO TID PRNQty: 60 0RF promethazine 25 mg tablet 25 mg PO TID PRNQty: 60 0RF (DME) inhalational spacing device 1 EACH spacer MISCELLANEOUS levothyroxine 125 mcg tablet 125 mcg PO HS hydrocodone-acetaminophen 10-300 mg tablet 1 tab PO Q6H PRNQty: 20 0RF enoxaparin 80 mg/0.8 mL syringe 80 mg subcut Q12H Qty: 60 0RF lorazepam 1 mg tablet 1 mg sublingual TID PRNQty: 30 0RF potassium chloride 20 mEq tablet,ER particles/crystals 20 meq PO DAILY Qty: 5 0RF magnesium 250 mg tablet 250 mg PO DAILY Qty: 7 0RF prochlorperazine maleate [Compazine] 10 mg tablet 10 mg PO Q8H PRNQty: 10 0RF diphenhydramine HCl [Benadryl Allergy] 25 mg tablet 100 mg PO HS Patient Comments: Take 4 tablet by mouth at bedtime budesonide-formoterol [Symbicort] 160-4.5 mcg/actuation HFA aerosol inhaler 1 inh INHALATION QDAY Patient Comments: INHALE TWO PUFFS BY MOUTH TWICE A DAY AND NEEDED ondansetron 4 mg tablet,disintegrating 4 mg PO Q8H PRN (Reason: nausea and vomiting) Qty: 30 0RF Discharge Instructions Instructions: Acute Nausea and Vomiting (ED) Additional Instructions: Please follow-up with your primary care physician Take the Phenergan as prescribed Clear liquid diet as tolerated Steroid for marijuana Return earlier should you have new or worsening complaints Referrals: Patrica Santoro [Primary Care Provider] - Discharge Data Discharge Date/Time-TO BE ENTERED AT DEPARTURE: 01/04/23 20:26 Medical Decision Making 43-year-old female known to this facility presents with report of intractable vomiting at home Labs are unremarkable, patient has not vomited since being in the emergency department is able to tolerate p.o. If she is discharged home in the care of her , prescription for Phenergan supplied Return precautions reviewed and patient expressed understanding HPI General Date/Time Provider Initiated Documentation: 01/04/23 16:03 . HPI Narrative: 43-year-old female presents with report of vomiting since 11 AM. History of cyclic vomiting syndrome. Patient is alert, she is actively vomiting, she denies any pain, she states she has a history of similar symptoms in the past. She does smoke marijuana. She has any blood in vomitus. Denies any chance of . Related Data Home Medications Medication Instructions Recorded Confirmed calcium carb,cit 300 mg-D3 200 1 ea PO BID 11/09/12 09/06/22 unit-min no.34-genistein 13.5 mg tablet (Citracal Plus Bone Density Builder) cyproheptadine 4 mg tablet 4 mg PO HS #90 tab-caps 06/04/16 09/06/22 naloxone 4 mg/actuation nasal 4 mg NS DAILY PRN PRN #2 sprays 12/08/16 09/06/22 spray (Narcan) triamcinolone acetonide 0.1 % 1 applic topical BID PRN eczema 09/05/19 09/06/22 topical cream #60 grams methylphenidate HCl 20 mg tablet 20 mg PO TID #84 tab-caps 10/20/19 09/06/22 diphenhydramine HCl 25 mg tablet 100 mg PO HS 12/13/19 09/06/22 (Benadryl Allergy) sucralfate 1 gram tablet 1 g PO AC & HS #120 tabs 12/30/19 09/06/22 clotrimazole-betamethasone 1 1 applic topical BID PRN rash #45 02/22/20 09/06/22 %-0.05 % topical cream grams epinephrine 0.3 mg/0.3 mL 0.3 mg (0.3 mL) IM ONCE #1 ea 02/22/20 09/06/22 injection, auto-injector (EpiPen 2-Nino) fluticasone propionate 220 2 inh inhalation BID ##3 02/22/20 09/06/22 mcg/actuation HFA aerosol inhaler (Flovent HFA) omeprazole 40 mg capsule,delayed 40 mg PO DAILY GERD #90 caps 02/22/20 09/06/22 release albuterol sulfate 90 mcg/actuation 2 puff inhalation Q6H PRN ##3 03/07/20 09/06/22 aerosol inhaler (ProAir HFA) ondansetron HCl 8 mg tablet 8 mg PO BID PRN nausea and 03/07/20 09/06/22 vomiting #20 tabs sumatriptan succinate 6 mg/0.5 mL 6 mg (0.5 mL) subcut ONCE PRN 03/07/20 09/06/22 subcutaneous pen injector migraine headache #90 SYRGS clonazepam 1 mg tablet 1 mg PO TID PRN anxiety #90 tabs 03/20/20 09/06/22 acidophilus 25 million 1 tab PO DAILY 08/16/20 09/06/22 cell-pectin, citrus 100 mg tablet cetirizine 10 mg capsule (Zyrtec) 10 mg PO DAILY 08/16/20 09/06/22 polyethylene glycol 3350 17 gram 17 g PO DAILY PRN 08/16/20 09/06/22 oral powder packet (Miralax) topiramate 200 mg tablet (Topamax) 400 mg PO DAILY 08/16/20 09/06/22 albuterol sulfate 2.5 mg/3 mL 2.5 mg inhalation TID 05/03/21 09/06/22 (0.083 %) solution for nebulization ascorbic acid (vitamin C) 500 mg 500 mg PO BID #60 tabs 05/04/21 09/06/22 tablet (Vitamin C) dnfqsaajth-bfjfwjfvnqbdt-odgmcfjy 1 cap PO Q4H PRN #60 caps 05/04/21 09/06/22 50 mg-300 mg-40 mg capsule (Fioricet) cholecalciferol (vitamin D3) 50 50 mcg PO DAILY #30 caps 05/04/21 09/06/22 mcg (2,000 unit) capsule (Vitamin D3) melatonin 3 mg tablet 6 mg PO HS #30 tabs 05/04/21 09/06/22 prochlorperazine maleate 10 mg 10 mg PO TID PRN #60 tabs 05/04/21 09/06/22 tablet (Compazine) promethazine 25 mg tablet 25 mg PO TID PRN #60 tabs 05/04/21 09/06/22 budesonide-formoterol HFA 160 1 inh inhalation QDAY 01/22/22 09/06/22 mcg-4.5 mcg/actuation aerosol inhaler (Symbicort) inhalational spacing device 05/17/22 09/06/22 levothyroxine 125 mcg tablet 125 mcg PO HS 05/17/22 09/06/22 enoxaparin 80 mg/0.8 mL 80 mg (0.8 mL) subcut Q12H #60 05/19/22 09/06/22 subcutaneous syringe SYRGS hydrocodone 10 mg-acetaminophen 1 tab PO Q6H PRN #20 tabs 05/19/22 09/06/22 300 mg tablet lorazepam 1 mg tablet 1 mg sublingual TID PRN #30 tabs 05/19/22 09/06/22 ondansetron 4 mg disintegrating 4 mg PO Q8H PRN nausea and 07/29/22 09/06/22 tablet vomiting #30 tabs magnesium 250 mg tablet 250 mg PO DAILY #7 tabs 08/28/22 09/06/22 potassium chloride 20 mEq 20 meq PO DAILY #5 tabs 08/28/22 09/06/22 tablet,extended release(part/cryst) prochlorperazine maleate 10 mg 10 mg PO Q8H PRN #10 tabs 08/28/22 09/06/22 tablet (Compazine) promethazine 25 mg tablet 25 mg PO Q6H PRN #10 tabs 01/04/23 Previous Rx's Medication Instructions Recorded naloxone 4 mg/actuation nasal 4 mg NS DAILY PRN PRN #2 sprays 12/08/16 spray (Narcan) triamcinolone acetonide 0.1 % 1 applic topical BID PRN eczema 09/05/19 topical cream #60 grams methylphenidate HCl 20 mg tablet 20 mg PO TID #84 tab-caps 10/20/19 sucralfate 1 gram tablet 1 g PO AC & HS #120 tabs 12/30/19 clotrimazole-betamethasone 1 1 applic topical BID PRN rash #45 02/22/20 %-0.05 % topical cream grams epinephrine 0.3 mg/0.3 mL 0.3 mg (0.3 mL) IM ONCE #1 ea 02/22/20 injection, auto-injector (EpiPen 2-Nino) fluticasone propionate 220 2 inh inhalation BID ##3 02/22/20 mcg/actuation HFA aerosol inhaler (Flovent HFA) omeprazole 40 mg capsule,delayed 40 mg PO DAILY GERD #90 caps 02/22/20 release albuterol sulfate 90 mcg/actuation 2 puff inhalation Q6H PRN ##3 03/07/20 aerosol inhaler (ProAir HFA) ondansetron HCl 8 mg tablet 8 mg PO BID PRN nausea and 03/07/20 vomiting #20 tabs sumatriptan succinate 6 mg/0.5 mL 6 mg (0.5 mL) subcut ONCE PRN 03/07/20 subcutaneous pen injector migraine headache #90 SYRGS clonazepam 1 mg tablet 1 mg PO TID PRN anxiety #90 tabs 03/20/20 ascorbic acid (vitamin C) 500 mg 500 mg PO BID #60 tabs 05/04/21 tablet (Vitamin C) feyrupgdzl-wgjohgnxbfglo-spopglzl 1 cap PO Q4H PRN #60 caps 05/04/21 50 mg-300 mg-40 mg capsule (Fioricet) cholecalciferol (vitamin D3) 50 50 mcg PO DAILY #30 caps 05/04/21 mcg (2,000 unit) capsule (Vitamin D3) melatonin 3 mg tablet 6 mg PO HS #30 tabs 05/04/21 prochlorperazine maleate 10 mg 10 mg PO TID PRN #60 tabs 05/04/21 tablet (Compazine) promethazine 25 mg tablet 25 mg PO TID PRN #60 tabs 05/04/21 enoxaparin 80 mg/0.8 mL 80 mg (0.8 mL) subcut Q12H #60 05/19/22 subcutaneous syringe SYRGS hydrocodone 10 mg-acetaminophen 1 tab PO Q6H PRN #20 tabs 05/19/22 300 mg tablet lorazepam 1 mg tablet 1 mg sublingual TID PRN #30 tabs 05/19/22 ondansetron 4 mg disintegrating 4 mg PO Q8H PRN nausea and 07/29/22 tablet vomiting #30 tabs magnesium 250 mg tablet 250 mg PO DAILY #7 tabs 08/28/22 potassium chloride 20 mEq 20 meq PO DAILY #5 tabs 08/28/22 tablet,extended release(part/cryst) prochlorperazine maleate 10 mg 10 mg PO Q8H PRN #10 tabs 08/28/22 tablet (Compazine) promethazine 25 mg tablet 25 mg PO Q6H PRN #10 tabs 01/04/23 Allergies Allergy/AdvReac Type Severity Reaction Status Date / Time aripiprazole [From Abilify] Allergy Severe Rash, hives Verified 09/06/22 21:57 doxycycline Allergy Severe Anaphylaxsi Verified 09/06/22 21:57 s [facility]acetam [facility] Allergy Severe RASH/HIVES Verified 09/06/22 21:57 sulfamethoxazole Allergy Severe Hives Verified 09/06/22 21:57 venom-honey bee Allergy Severe unknown Verified 09/06/22 21:57 Penicillins Allergy Intermediate Skin Rash Verified 09/06/22 21:57 chlorhexidine Allergy Unknown unknown Verified 09/06/22 21:57 Sulfa (Sulfonamide Allergy Verified 09/06/22 21:57 Antibiotics) mold AdvReac Severe Wheezing Verified 09/06/22 21:57 oxycodone [Oxycodone] AdvReac Severe vomits Verified 09/06/22 21:57 paroxetine AdvReac Severe Irritability Verified 09/06/22 21:57 and anger dicloxacillin [Dicloxacillin] AdvReac Mild Nausea, GI Verified 09/06/22 21:57 upset gabapentin AdvReac Mild hives Verified 09/06/22 21:57 prednisone AdvReac Agitation Verified 05/20/23 21:57 trazodone AdvReac shortness Verified 09/06/22 21:57 of breath verapamil [Verapamil] AdvReac Worsening Verified 09/06/22 21:57 migraine nuts Allergy Severe Anaphylaxsi Uncoded 09/06/22 21:57 s General Stated Complaint: [id number] RYNE: 3 PFSH All Active Problems (Updated 01/04/23 @ 18:49 by TYRON Zuleta) Nausea & vomiting (Acute) Pulmonary embolism (Acute) Anxiety (Chronic) DVT prophylaxis (Acute) Intractable nausea and vomiting (Acute) Enterocolitis (Acute) Gastroesophagitis (Acute) Leukocytosis, unspecified (Acute) Intractable nausea and vomiting (Acute) Chronic anticoagulation (Chronic) On coumadin Cyclic vomiting syndrome (Acute) Panic disorder (Chronic 03/21/16) Chronic back pain greater than 3 months duration (Chronic 12/29/14) ADHD (attention deficit hyperactivity disorder), 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) B12 deficiency (Chronic) Medical History Acute deep vein thrombosis (DVT) of left lower extremity Acute renal insufficiency Asthma (11/08/12) Candidiasis Cellulitis of left leg Chronic anticoagulation Cyst of fallopian tube Depression Factor V Leiden mutation GERD (gastroesophageal reflux disease) Hematuria History of DVT (deep vein thrombosis) Hypothyroidism Iatrogenic pulmonary embolism and infarction Intractable vomiting with nausea Left buttock abscess Left lower quadrant pain (01/27/12) Migraine headache Nephrolithiasis Normocytic anemia Orbital cellulitis on left Other enthesopathies, not elsewhere classified (03/21/16) Neck Preseptal cellulitis of left eye Primary hypercoagulable state Recurrent deep vein thrombosis (DVT) Right lower quadrant abdominal pain inflamed/ruptured fallopian tube on the right Thrombosis of arteries of lower extremity Vaginal candidiasis Surgical History Abdominal hysterectomy (~2009) 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) Arthroplasty of knee (~1999) left Bilateral salpingectomy with oophorectomy (~2008) Cervical Conization/LEEP LEEP 2003 [facility] BX 2003 Cholecystectomy History of arthroscopy of knee S/P appendectomy (12/24/17) Dr Veliz - Car appy and lap excision of R fallopian tube remnant Status post cholecystectomy Status post LEEP (loop electrosurgical excision procedure) of cervix THUMB RECONSTRUCTION left; in childhood Social History Smoking/Tobacco Use Status: Never Smoking risk assessment performed?: Yes Alcohol Intake: former Substance use type: does not use Current gender identity: female Do you feel safe at home: Yes Do you feel safe in your relationship?: Yes Additional Social history: unable to assess alone Course Vital Signs Vital signs: Vital Signs Temperature 35.4 C L 01/04/23 15:48 Pulse 66 01/04/23 15:48 Respiratory Rate 28 H 01/04/23 15:48 Blood Pressure 169/101 H 01/04/23 15:48 Pulse Oximetry 100 01/04/23 15:48 Temperature 35.4 C L 01/04/23 15:48 Temperature Source Skin 01/04/23 15:48 Pulse 66 01/04/23 15:48 Respiratory Rate 16 01/04/23 16:04 Respiratory Effort Normal 01/04/23 16:04 Respiratory Depth Normal 01/04/23 16:04 Respiratory Pattern Normal 01/04/23 16:04 Blood Pressure 169/101 H 01/04/23 15:48 Blood Pressure Position Sitting 01/04/23 15:48 Pulse Oximetry 100 01/04/23 15:48 Oxygen Delivery Method Room Air 01/04/23 15:48 Oxygen Flow Rate 0 01/04/23 15:48 Pain Level 8 01/04/23 15:48 Lab/Test Results Lab/Test Results: Laboratory Tests Range/Units 01/04/23 01/04/23 01/04/23 16:25 16:25 16:25 WBC (4.4-10.8) 10^3/uL 9.39 RBC (3.93-5.22) 10^6/uL 5.42 H Hgb (11.2-15.7) g/dL 15.1 Hct (36.0-46.0) % 44.0 MCV (80-95) fL 81 MCH (27.0-33.0) pg 27.9 MCHC (32.0-36.0) % 34.3 RDW (11.7-14.6) % 13.2 Plt Count (130-400) 10^3/uL 276 MPV (8.0-11.0) fL 10.7 Immature Gran % 0.5 Neutrophils % 85.1 Lymphocytes % 10.3 Monocytes % 3.8 Eosinophils % 0.1 Basophils % 0.2 Nucleated RBC % (0.0-0.3) % 0.0 Absolute Neutrophils (1.2-6.7) 10^3/uL 7.98 H Absolute Lymphocytes (1.2-3.4) 10^3/uL 0.97 L Absolute Monocytes (0.1-0.8) 10^3/uL 0.36 Absolute Eosinophils (0.0-0.7) 10^3/uL 0.01 Absolute Basophils (0.0-0.2) 10^3/uL 0.02 Sodium (136-145) mmol/L 137 Potassium (3.5-5.1) mmol/L 3.9 Chloride (98-107) mmol/L 102 Carbon Dioxide (21.0-32.0) mmol/L 21.5 Anion Gap (3-11) mmol/L 13.5 H BUN (7-18) mg/dL 12 Creatinine (0.55-1.02) mg/dL 1.2 H Est GFR (CKD-EPI 2020) (mL/min/1.73m2) 57.24 Glucose (74-106) mg/dL 170 H Calcium (8.5-10.1) mg/dL 9.9 Total Bilirubin (0.2-1.0) mg/dL 0.6 AST (15-37) U/L 13 L ALT (14-59) U/L 20 Alkaline Phosphatase (46-116) U/L 71 Total Protein (6.4-8.2) g/dL 8.0 Albumin (3.4-5.0) g/dL 4.4 Lipase (16-77) U/L 30 Serum HCG, Qual Range/Units 01/04/23 16:25 WBC (4.4-10.8) 10^3/uL RBC (3.93-5.22) 10^6/uL Hgb (11.2-15.7) g/dL Hct (36.0-46.0) % MCV (80-95) fL MCH (27.0-33.0) pg MCHC (32.0-36.0) % RDW (11.7-14.6) % Plt Count (130-400) 10^3/uL MPV (8.0-11.0) fL Immature Gran % Neutrophils % Lymphocytes % Monocytes % Eosinophils % Basophils % Nucleated RBC % (0.0-0.3) % Absolute Neutrophils (1.2-6.7) 10^3/uL Absolute Lymphocytes (1.2-3.4) 10^3/uL Absolute Monocytes (0.1-0.8) 10^3/uL Absolute Eosinophils (0.0-0.7) 10^3/uL Absolute Basophils (0.0-0.2) 10^3/uL Sodium (136-145) mmol/L Potassium (3.5-5.1) mmol/L Chloride (98-107) mmol/L Carbon Dioxide (21.0-32.0) mmol/L Anion Gap (3-11) mmol/L BUN (7-18) mg/dL Creatinine (0.55-1.02) mg/dL Est GFR (CKD-EPI 2020) (mL/min/1.73m2) Glucose (74-106) mg/dL Calcium (8.5-10.1) mg/dL Total Bilirubin (0.2-1.0) mg/dL AST (15-37) U/L ALT (14-59) U/L Alkaline Phosphatase (46-116) U/L Total Protein (6.4-8.2) g/dL Albumin (3.4-5.0) g/dL Lipase (16-77) U/L Serum HCG, Qual Negative
[2023-01-04 20:26] VITALS: BP 162/88; PULSE 72; RESP 14; TEMP 36.4; O2SAT 98
== END 2023-01-04 20:26 | disposition home or self-care (01) ==
PROVIDERS: Emergency Provider Physician Assistant; PCP Family Medicine
DX: R11.2 Nausea with vomiting, unspecified (principal); R55 Syncope and collapse; I44.4 Left anterior fascicular block; D68.51 Activated protein C resistance; Z86.711 Personal history of pulmonary embolism; Z79.01 Long term (current) use of anticoagulants
CPT/HCPCS: 80053; 83690; 93005; 96361; 96374; 96375; 99283; 84703; 85025; 93010; J0780; J2060

== ENCOUNTER 2023-01-06 11:09 | Emergency (ER) | payer MEDICARE, MEDICAID, SELFPAY ==
[2023-01-06] VITALS (28 sets, daily range): BP systolic 178–201; BP diastolic 75–108; PULSE 45–65; RESP 11–27; TEMP 36.3; O2SAT 96–100
--- NOTE | 2023-01-06 11:00 | RT.EKG_ITS ---
APPROVED REPORT Exam: Resting ECG Reason for Exam: syncope Patient Location: E HR:48 bpm ECG Measurements Heart Rate 48 AXIS MO 80 P 10 QRSd 135 QRS -41 QT 483 T 97 QTc 431 Conclusion Sinus bradycardia...rate< 60 Left bundle branch block...QRSd>120, broad/notched R
--- NOTE | 2023-01-06 11:30 | DI.CT_ITS ---
Exam(s) CT ABDOMEN PELVIS W EXAM: CT ABDOMEN PELVIS W CLINICAL HISTORY: vomiting, abd pain TECHNIQUE: Imaging Protocol: Axial computed tomography images with coronal and sagittal reformatted images were created and reviewed CONTRAST MATERIAL: Intravenous: Omnipaque 350 Contrast volume:100 mL Oral: No COMPARISON: CT CT ABDOMEN PELVIS W from 07/29/[address] CHEST PE CTA from 09/06/2022 FINDINGS: ABDOMEN: Lung Bases: Atelectasis in the lung bases. Liver: Normal density. No measurable mass. Portal, Superior Mesenteric, and Splenic Veins: Unremarkable. Gallbladder and Biliary Tract: Status post cholecystectomy. No significant biliary ductal dilatation . Pancreas: Normal density, no abnormal calcifications or inflammatory process. Spleen: Normal. Adrenals: No masses seen. Kidneys: Normal size, contour and axis. 2 mm nonobstructing stone in the lower pole of the right kidn ey. No masses seen. Abdominal Aorta: Abdominal portion non-dilated. Atherosclerosis. Bowel: No obstruction or bowel wall thickening. No evidence of appendicitis. Peritoneal Cavity: No ascites, collection or mesenteric inflammatory response. No free air. Lymph Nodes: Within normal limits. Bones: Within normal limits for the patient's age. Soft Tissues: Unremarkable. PELVIS: Bladder: Symmetric distention, no gross wall thickening. Reproductive Organs: Unremarkable as visualized. Lymph Nodes: Within normal limits. Bones: Within normal limits for the patient's age. IMPRESSION: 1. No acute abdominal or pelvic process. 2. Findings were discussed with the emergency department at 01:39 p.m. on 01/06/2023. RADIATION DOSE DELIVERED: 1,148.44mGy.cm Total DLP DATA REPOSITORY: All CT scans at this facility are submitted to the National Radiology Data Registry (NRDR) Dose Index Registry (DIR) with the [employer] ([employer]). RADIATION OPTIMIZATION: All CT scans at this facility use at least one of these dose optimization te chniques: automated exposure control; mA and/or kV adjustment per patient size (includes targeted exa ms where dose is matched to clinical indication); or iterative reconstruction.
--- NOTE | 2023-01-06 11:30 | DI.CT_ITS ---
Exam(s) CT HEAD WO EXAM: CT HEAD WO CLINICAL HISTORY: ams. TECHNIQUE: Imaging Protocol: Axial computed tomography images with coronal and sagittal reformatted images were created and reviewed COMPARISON: CT CT HEAD WO from 07/29/2022 FINDINGS: There is artifact from the patient's jewelry. Ventricles and Extra axial spaces: Normal in size and morphology for the patient's age. Hemorrhage: None. Cerebral parenchyma: Normal. Midline shift: None. Brainstem/Cerebellum: Normal. Calvarium: Normal. Visualized Paranasal sinuses/Mastoids: Clear. Soft Tissues: Unremarkable. IMPRESSION: 1. No acute intracranial process. 2. Findings were discussed with the emergency department at 1:14 p.m. on 01/06/2023. RADIATION DOSE DELIVERED: 713.22mGy.cm Total DLP DATA REPOSITORY: All CT scans at this facility are submitted to the National Radiology Data Registry (NRDR) Dose Index Registry (DIR) with the [employer] ([employer]). RADIATION OPTIMIZATION: All CT scans at this facility use at least one of these dose optimization te chniques: automated exposure control; mA and/or kV adjustment per patient size (includes targeted exa ms where dose is matched to clinical indication); or iterative reconstruction.
[2023-01-06] MEDS: Lactated Ringers 1,000 ML 1000 ML IV ×2 (11:43→13:37)
[2023-01-06] MEDS: Haloperidol 5 MG/ML VIAL 2 MG IM/IV (11:43)
[2023-01-06 11:54] LABS: BE (Venous) 0 mmol/L (-2-3); HCO3 (Venous) 24 mmol/L (23-28); O2 Sat (Venous) 78 %; TCO2 (Venous) 21 mmol/L (24-29); pCO2 (Venous) 36 mmHg (41-51); pH (Venous) 7.44 (7.31-7.41); pO2 (Venous) 41 mmHg
[2023-01-06 11:56] LABS: Abs Immature Grans 0.06 10^3/uL (0.0-0.06); Absolute Basophil Count 0.02 10^3/uL (0.0-0.2); Absolute Lymphocyte Count 0.99 10^3/uL (1.2-3.4); Absolute Monocyte Count 0.41 10^3/uL (0.1-0.8); Basophils % 0.2; HCT 45.7 % (36.0-46.0); HGB 15.8 g/dL (11.2-15.7); Immature Grans % 0.5; Lymphocytes % 8.4; MCHC 34.6 % (32.0-36.0); MCV 81 fL (80-95); MPV 10.2 fL (8.0-11.0); Monocytes % 3.5; Neutrophils % 87.4; Platelet Count 257 10^3/uL (130-400); RBC 5.64 10^6/uL (3.93-5.22); RDW 13.3 % (11.7-14.6); WBC 11.81 10^3/uL (4.4-10.8)
[2023-01-06 11:57] LABS: Absolute Neutrophil Count 10.32 10^3/uL (1.2-6.7)
[2023-01-06] MEDS: Prochlorperazine 10 MG/2 ML VIAL IVP (12:03)
[2023-01-06 12:15] LABS: ALT 18 U/L (14-59); AST 7 U/L (15-37); Albumin 4.7 g/dL (3.4-5.0); Alkaline Phosphatase 76 U/L (46-116); Anion Gap 12.3 mmol/L (3-11); BUN 27 mg/dL (7-18); Bilirubin, Total 1.1 mg/dL (0.2-1.0); CO2 25.7 mmol/L (21.0-32.0); CREATININE 1.3 mg/dL (0.55-1.02); Calcium 9.9 mg/dL (8.5-10.1); Chloride 97 mmol/L (98-107); Glucose 141 mg/dL (74-106); Potassium 3.1 mmol/L (3.5-5.1); Sodium 135 mmol/L (136-145); Total Protein 8.3 g/dL (6.4-8.2); Troponin I < 50 ng/L (<or=60)
[2023-01-06 12:28] LABS: Procalcitonin < 0.1 ng/mL
--- NOTE | 2023-01-06 12:33 | ED.GENADUL_ITS ---
Discharge Plan Disposition Patient Disposition: Home Discharge Details Clinical Impression: Nausea & vomiting, Acute dehydration, Fatigue, Cyclic vomiting syndrome Primary Care Provider: Patrica Santoro ED Provider: Kalie Allen Home Meds and New Rx's Prescriptions: New scopolamine base 1 mg over 3 days patch 3 day 1 patch transdermal Q3D PRNQty: 4 0RF Continued sucralfate 1 gram tablet 1 g PO AC & HS Qty: 120 2RF Citracal Plus Bone Density 1 EACH tablet 1 ea PO BID cyproheptadine 4 MG tablet 4 mg PO HS Qty: 90 triamcinolone acetonide 0.1 % cream 1 applic Topical BID PRN (Reason: eczema) Qty: 60 1RF Rx Instructions: Apply to eczema methylphenidate HCl 20 mg tablet 20 mg PO TID MDD 60 mg Qty: 84 0RF epinephrine [EpiPen 2-Nino] 0.3 mg/0.3 mL auto-injector 0.3 mg IM ONCE Qty: 1 1RF fluticasone propionate [Flovent HFA] 220 mcg/actuation HFA aerosol inhaler 2 inh Inhalation BID Qty: 3 4RF omeprazole 40 mg capsule,delayed release(DR/EC) 40 mg PO DAILY Qty: 90 4RF clotrimazole-betamethasone 1-0.05 % cream 1 applic Topical BID PRN (Reason: rash) Qty: 45 1RF Rx Instructions: Apply to skin folds albuterol sulfate [ProAir HFA] 90 mcg/actuation HFA aerosol inhaler 2 puff Inhalation Q6H PRN MDD 6 puffs Qty: 3 4RF ondansetron HCl 8 mg tablet 8 mg PO BID PRN (Reason: nausea and vomiting) Qty: 20 0RF sumatriptan succinate 6 mg/0.5 mL pen injector 6 mg subcut ONCE MDD 12mg PRN (Reason: migraine headache) Qty: 90 1RF Rx Instructions: May repeat dose once in 1 hour if headache persists clonazepam 1 mg tablet 1 mg PO TID PRN (Reason: anxiety) Qty: 90 0RF Hold Instructions: Resume on 05/31/22. Hold until further instructions by PCP) naloxone [Narcan] 4 MG spray,non-aerosol 4 mg NS DAILY PRN PRNQty: 2 0RF Rx Instructions: One spray (4mg) intranasally into one nostril. Use a new nasal spray for subsequent dose in alternate nostril if needed. May repeat once after initial dose in 2-3 minutes. polyethylene glycol 3350 [Miralax] 17 gram Powder In Packet 17 g PO DAILY PRN Zyrtec 10 mg Capsule 10 mg PO DAILY topiramate [Topamax] 200 mg tablet 400 mg PO DAILY Rx Instructions: Brand name medically necessary acidophilus-pectin, citrus 25 million cell -100 mg tablet 1 tab PO DAILY albuterol sulfate 2.5 mg /3 mL (0.083 %) Solution For Nebulization 2.5 mg INHALATION TID ascorbic acid (vitamin C) [Vitamin C] 500 mg Tablet 500 mg PO BID Qty: 60 0RF [id number] [Fioricet] 50-300-40 mg capsule 1 cap PO Q4H PRNQty: 60 0RF Rx Instructions: Take 1-2 tabs as needed for WILLETT, not to exceed 6 tabs in 24 hours cholecalciferol (vitamin D3) [Vitamin D3] 50 mcg (2,000 unit) capsule 50 mcg PO DAILY Qty: 30 0RF melatonin 3 mg Tablet 6 mg PO HS Qty: 30 0RF prochlorperazine maleate [Compazine] 10 mg tablet 10 mg PO TID PRNQty: 60 0RF promethazine 25 mg tablet 25 mg PO TID PRNQty: 60 0RF (DME) inhalational spacing device 1 EACH spacer MISCELLANEOUS levothyroxine 125 mcg tablet 125 mcg PO HS hydrocodone-acetaminophen 10-300 mg tablet 1 tab PO Q6H PRNQty: 20 0RF enoxaparin 80 mg/0.8 mL syringe 80 mg subcut Q12H Qty: 60 0RF lorazepam 1 mg tablet 1 mg sublingual TID PRNQty: 30 0RF potassium chloride 20 mEq tablet,ER particles/crystals 20 meq PO DAILY Qty: 5 0RF magnesium 250 mg tablet 250 mg PO DAILY Qty: 7 0RF prochlorperazine maleate [Compazine] 10 mg tablet 10 mg PO Q8H PRNQty: 10 0RF promethazine 25 mg tablet 25 mg PO Q6H PRNQty: 10 0RF diphenhydramine HCl [Benadryl Allergy] 25 mg tablet 100 mg PO HS Patient Comments: Take 4 tablet by mouth at bedtime budesonide-formoterol [Symbicort] 160-4.5 mcg/actuation HFA aerosol inhaler 1 inh INHALATION QDAY Patient Comments: INHALE TWO PUFFS BY MOUTH TWICE A DAY AND NEEDED ondansetron 4 mg tablet,disintegrating 4 mg PO Q8H PRN (Reason: nausea and vomiting) Qty: 30 0RF Discharge Instructions Instructions: Dehydration (ED), Acute Nausea and Vomiting (ED), Fatigue (ED) Additional Instructions: Please follow-up with your doctor tomorrow Stay away from marijuana and any illicit drugs Very small amounts of regular fluids, food as tolerated Please use the nausea medications that you have at home if you are able to tolerate fluids with scopolamine patch, stop you potassium w hile the patch I am also writing for scopolamine patch which she can try applying to see if it helps with your nausea and vomiting Discharge Data Discharge Date/Time-TO BE ENTERED AT DEPARTURE: 01/06/23 16:33 Medical Decision Making female presenting with report of nausea, vomiting, fatigue Labs are indicative of dehydration, lactate is elevated which I suspect is secondary to tourniquet use and dehydration, will repeat We will also repeat chemistry Patient was given Compazine, 2 L of LR, 2 mg followed by 1 mg of Haldol as I suspect there is a psychiatric component and I think this will work nicely on patient's nausea and vomiting she does have known cyclic vomiting syndrome At time of reassessment she actually is much more alert, she has not been willing to try p.o. fluids at this time The next step will be third liter of LR and p.o. fluids with a goal to send this patient home Since that she has a longstanding mental health history and she has presented numerous times in the past Patient is requesting discharge, she is able to ambulate Lactate is elevated is reassuring more secondary to dehydration, she is able to tolerate p.o. now Return precautions reviewed and patient expressed understanding, discharged home in the care of her partner HPI General Date/Time Provider Initiated Documentation: 01/06/23 11:10 . HPI Narrative: This 43-year-old female known to this facility presents with recurrent nausea vomiting and fatigue. She was evaluated 2 days prior to arrival and has shown no improvement per her partner. She states she feels terrible . She is unable to get up and walk around but having difficulty eating and drinking secondary to persistent nausea and vomiting per patient. Denies any falls or injuries. Denies chance of . Denies any marijuana use in the past month. Denies any alcohol use in the past month. Related Data Home Medications Medication Instructions Recorded Confirmed calcium carb,cit 300 mg-D3 200 1 ea PO BID 11/09/12 09/06/22 unit-min no.34-genistein 13.5 mg tablet (Citracal Plus Bone Density Builder) cyproheptadine 4 mg tablet 4 mg PO HS #90 tab-caps 06/04/16 09/06/22 naloxone 4 mg/actuation nasal 4 mg NS DAILY PRN PRN #2 sprays 12/08/16 09/06/22 spray (Narcan) triamcinolone acetonide 0.1 % 1 applic topical BID PRN eczema 09/05/19 09/06/22 topical cream #60 grams methylphenidate HCl 20 mg tablet 20 mg PO TID #84 tab-caps 10/20/19 09/06/22 diphenhydramine HCl 25 mg tablet 100 mg PO HS 12/13/19 09/06/22 (Benadryl Allergy) sucralfate 1 gram tablet 1 g PO AC & HS #120 tabs 12/30/19 09/06/22 clotrimazole-betamethasone 1 1 applic topical BID PRN rash #45 02/22/20 09/06/22 %-0.05 % topical cream grams epinephrine 0.3 mg/0.3 mL 0.3 mg (0.3 mL) IM ONCE #1 ea 02/22/20 09/06/22 injection, auto-injector (EpiPen 2-Nino) fluticasone propionate 220 2 inh inhalation BID ##3 02/22/20 09/06/22 mcg/actuation HFA aerosol inhaler (Flovent HFA) omeprazole 40 mg capsule,delayed 40 mg PO DAILY GERD #90 caps 02/22/20 09/06/22 release albuterol sulfate 90 mcg/actuation 2 puff inhalation Q6H PRN ##3 03/07/20 09/06/22 aerosol inhaler (ProAir HFA) ondansetron HCl 8 mg tablet 8 mg PO BID PRN nausea and 03/07/20 09/06/22 vomiting #20 tabs sumatriptan succinate 6 mg/0.5 mL 6 mg (0.5 mL) subcut ONCE PRN 03/07/20 09/06/22 subcutaneous pen injector migraine headache #90 SYRGS clonazepam 1 mg tablet 1 mg PO TID PRN anxiety #90 tabs 03/20/20 09/06/22 acidophilus 25 million 1 tab PO DAILY 08/16/20 09/06/22 cell-pectin, citrus 100 mg tablet cetirizine 10 mg capsule (Zyrtec) 10 mg PO DAILY 08/16/20 09/06/22 polyethylene glycol 3350 17 gram 17 g PO DAILY PRN 08/16/20 09/06/22 oral powder packet (Miralax) topiramate 200 mg tablet (Topamax) 400 mg PO DAILY 08/16/20 09/06/22 albuterol sulfate 2.5 mg/3 mL 2.5 mg inhalation TID 05/03/21 09/06/22 (0.083 %) solution for nebulization ascorbic acid (vitamin C) 500 mg 500 mg PO BID #60 tabs 05/04/21 09/06/22 tablet (Vitamin C) xheatxmear-exnromoxzurdh-etxyaowg 1 cap PO Q4H PRN #60 caps 05/04/21 09/06/22 50 mg-300 mg-40 mg capsule (Fioricet) cholecalciferol (vitamin D3) 50 50 mcg PO DAILY #30 caps 05/04/21 09/06/22 mcg (2,000 unit) capsule (Vitamin D3) melatonin 3 mg tablet 6 mg PO HS #30 tabs 05/04/21 09/06/22 prochlorperazine maleate 10 mg 10 mg PO TID PRN #60 tabs 05/04/21 09/06/22 tablet (Compazine) promethazine 25 mg tablet 25 mg PO TID PRN #60 tabs 05/04/21 09/06/22 budesonide-formoterol HFA 160 1 inh inhalation QDAY 01/22/22 09/06/22 mcg-4.5 mcg/actuation aerosol inhaler (Symbicort) inhalational spacing device 05/17/22 09/06/22 levothyroxine 125 mcg tablet 125 mcg PO HS 01/28/23 05/20/23 enoxaparin 80 mg/0.8 mL 80 mg (0.8 mL) subcut Q12H #60 05/19/22 09/06/22 subcutaneous syringe SYRGS hydrocodone 10 mg-acetaminophen 1 tab PO Q6H PRN #20 tabs 05/19/22 09/06/22 300 mg tablet lorazepam 1 mg tablet 1 mg sublingual TID PRN #30 tabs 05/19/22 09/06/22 ondansetron 4 mg disintegrating 4 mg PO Q8H PRN nausea and 07/29/22 09/06/22 tablet vomiting #30 tabs magnesium 250 mg tablet 250 mg PO DAILY #7 tabs 08/28/22 09/06/22 potassium chloride 20 mEq 20 meq PO DAILY #5 tabs 08/28/22 09/06/22 tablet,extended release(part/cryst) prochlorperazine maleate 10 mg 10 mg PO Q8H PRN #10 tabs 08/28/22 09/06/22 tablet (Compazine) promethazine 25 mg tablet 25 mg PO Q6H PRN #10 tabs 01/04/23 scopolamine base 1 mg over 3 days 1 patch transdermal Q3D PRN #4 ea 01/06/23 transdermal patch Previous Rx's Medication Instructions Recorded naloxone 4 mg/actuation nasal 4 mg NS DAILY PRN PRN #2 sprays 12/08/16 spray (Narcan) triamcinolone acetonide 0.1 % 1 applic topical BID PRN eczema 09/05/19 topical cream #60 grams methylphenidate HCl 20 mg tablet 20 mg PO TID #84 tab-caps 10/20/19 sucralfate 1 gram tablet 1 g PO AC & HS #120 tabs 12/30/19 clotrimazole-betamethasone 1 1 applic topical BID PRN rash #45 02/22/20 %-0.05 % topical cream grams epinephrine 0.3 mg/0.3 mL 0.3 mg (0.3 mL) IM ONCE #1 ea 02/22/20 injection, auto-injector (EpiPen 2-Nino) fluticasone propionate 220 2 inh inhalation BID ##3 02/22/20 mcg/actuation HFA aerosol inhaler (Flovent HFA) omeprazole 40 mg capsule,delayed 40 mg PO DAILY GERD #90 caps 02/22/20 release albuterol sulfate 90 mcg/actuation 2 puff inhalation Q6H PRN ##3 03/07/20 aerosol inhaler (ProAir HFA) ondansetron HCl 8 mg tablet 8 mg PO BID PRN nausea and 03/07/20 vomiting #20 tabs sumatriptan succinate 6 mg/0.5 mL 6 mg (0.5 mL) subcut ONCE PRN 03/07/20 subcutaneous pen injector migraine headache #90 SYRGS clonazepam 1 mg tablet 1 mg PO TID PRN anxiety #90 tabs 03/20/20 ascorbic acid (vitamin C) 500 mg 500 mg PO BID #60 tabs 05/04/21 tablet (Vitamin C) yahprqolez-jdpauibgegkfq-otfxzheb 1 cap PO Q4H PRN #60 caps 05/04/21 50 mg-300 mg-40 mg capsule (Fioricet) cholecalciferol (vitamin D3) 50 50 mcg PO DAILY #30 caps 05/04/21 mcg (2,000 unit) capsule (Vitamin D3) melatonin 3 mg tablet 6 mg PO HS #30 tabs 05/04/21 prochlorperazine maleate 10 mg 10 mg PO TID PRN #60 tabs 05/04/21 tablet (Compazine) promethazine 25 mg tablet 25 mg PO TID PRN #60 tabs 05/04/21 enoxaparin 80 mg/0.8 mL 80 mg (0.8 mL) subcut Q12H #60 05/19/22 subcutaneous syringe SYRGS hydrocodone 10 mg-acetaminophen 1 tab PO Q6H PRN #20 tabs 05/19/22 300 mg tablet lorazepam 1 mg tablet 1 mg sublingual TID PRN #30 tabs 05/19/22 ondansetron 4 mg disintegrating 4 mg PO Q8H PRN nausea and 07/29/22 tablet vomiting #30 tabs magnesium 250 mg tablet 250 mg PO DAILY #7 tabs 08/28/22 potassium chloride 20 mEq 20 meq PO DAILY #5 tabs 08/28/22 tablet,extended release(part/cryst) prochlorperazine maleate 10 mg 10 mg PO Q8H PRN #10 tabs 08/28/22 tablet (Compazine) promethazine 25 mg tablet 25 mg PO Q6H PRN #10 tabs 01/04/23 scopolamine base 1 mg over 3 days 1 patch transdermal Q3D PRN #4 ea 01/06/23 transdermal patch Allergies Allergy/AdvReac Type Severity Reaction Status Date / Time aripiprazole [From Abilify] Allergy Severe Rash, hives Verified 09/06/22 21:57 doxycycline Allergy Severe Anaphylaxsi Verified 09/06/22 21:57 s levetiracetam [From Keppra] Allergy Severe RASH/HIVES Verified 09/06/22 21:57 sulfamethoxazole Allergy Severe Hives Verified 09/06/22 21:57 venom-honey bee Allergy Severe unknown Verified 09/06/22 21:57 Penicillins Allergy Intermediate Skin Rash Verified 09/06/22 21:57 chlorhexidine Allergy Unknown unknown Verified 09/06/22 21:57 Sulfa (Sulfonamide Allergy Verified 09/06/22 21:57 Antibiotics) mold AdvReac Severe Wheezing Verified 09/06/22 21:57 oxycodone [Oxycodone] AdvReac Severe vomits Verified 09/06/22 21:57 paroxetine AdvReac Severe Irritability Verified 09/06/22 21:57 and anger dicloxacillin [Dicloxacillin] AdvReac Mild Nausea, GI Verified 09/06/22 21:57 upset gabapentin AdvReac Mild hives Verified 09/06/22 21:57 prednisone AdvReac Agitation Verified 09/06/22 21:57 trazodone AdvReac shortness Verified 09/06/22 21:57 of breath verapamil [Verapamil] AdvReac Worsening Verified 09/06/22 21:57 migraine nuts Allergy Severe Anaphylaxsi Uncoded 09/06/22 21:57 s General Stated Complaint: Nausea/Vomit/Diar RYNE: 3 PFSH All Active Problems (Updated 01/06/23 @ 16:08 by TYRON Zuleta) Nausea & vomiting (Acute) Nausea & vomiting (Acute) Acute dehydration (Acute) Fatigue (Acute) Pulmonary embolism (Acute) Anxiety (Chronic) DVT prophylaxis (Acute) Intractable nausea and vomiting (Acute) Enterocolitis (Acute) Gastroesophagitis (Acute) Leukocytosis, unspecified (Acute) Intractable nausea and vomiting (Acute) Chronic anticoagulation (Chronic) On coumadin Cyclic vomiting syndrome (Acute) Panic disorder (Chronic 03/21/16) Chronic back pain greater than 3 months duration (Chronic 12/29/14) ADHD (attention deficit hyperactivity disorder), 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) B12 deficiency (Chronic) Medical History Acute deep vein thrombosis (DVT) of left lower extremity Acute renal insufficiency Asthma (11/08/12) Candidiasis Cellulitis of left leg Chronic anticoagulation Cyst of fallopian tube Depression Factor V Leiden mutation GERD (gastroesophageal reflux disease) Hematuria History of DVT (deep vein thrombosis) Hypothyroidism Iatrogenic pulmonary embolism and infarction Intractable vomiting with nausea Left buttock abscess Left lower quadrant pain (01/27/12) Migraine headache Nephrolithiasis Normocytic anemia Orbital cellulitis on left Other enthesopathies, not elsewhere classified (03/21/16) Neck Preseptal cellulitis of left eye Primary hypercoagulable state Recurrent deep vein thrombosis (DVT) Right lower quadrant abdominal pain inflamed/ruptured fallopian tube on the right Thrombosis of arteries of lower extremity Vaginal candidiasis Surgical History Abdominal hysterectomy (~2009) 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) Arthroplasty of knee (~1999) left Bilateral salpingectomy with oophorectomy (~2008) Cervical Conization/LEEP LEEP 2003 [facility] BX 2003 Cholecystectomy History of arthroscopy of knee S/P appendectomy (12/24/17) Dr Veliz - Car appy and lap excision of R fallopian tube remnant Status post cholecystectomy Status post LEEP (loop electrosurgical excision procedure) of cervix THUMB RECONSTRUCTION left; in childhood Social History Smoking/Tobacco Use Status: Never Smoking risk assessment performed?: Yes Alcohol Intake: former Substance use type: does not use Current gender identity: female Do you feel safe at home: Yes Do you feel safe in your relationship?: Yes Additional Social history: unable to assess alone Course Vital Signs Vital signs: Vital Signs Temperature 36.3 C L 01/06/23 11:15 Pulse 50 L 01/06/23 11:15 Respiratory Rate 20 01/06/23 11:15 Blood Pressure 201/75 H 01/06/23 11:15 Pulse Oximetry 99 01/06/23 11:15 Temperature 36.3 C L 01/06/23 11:15 Temperature Source Oral 01/06/23 11:15 Pulse 50 L 01/06/23 11:15 Respiratory Rate 20 01/06/23 11:15 Respiratory Effort Normal 01/06/23 11:23 Blood Pressure 201/75 H 01/06/23 11:15 Pulse Oximetry 99 01/06/23 11:15 Oxygen Delivery Method Room Air 01/06/23 11:15 Oxygen Flow Rate 0 01/06/23 11:15 Lab/Test Results Lab/Test Results: Laboratory Tests Range/Units 01/06/23 01/06/23 01/06/23 11:48 11:48 11:48 WBC (4.4-10.8) 10^3/uL 11.81 H RBC (3.93-5.22) 10^6/uL 5.64 H Hgb (11.2-15.7) g/dL 15.8 H Hct (36.0-46.0) % 45.7 MCV (80-95) fL 81 MCH (27.0-33.0) pg 28.0 MCHC (32.0-36.0) % 34.6 RDW (11.7-14.6) % 13.3 Plt Count (130-400) 10^3/uL 257 MPV (8.0-11.0) fL 10.2 Immature Gran % 0.5 Neutrophils % 87.4 Lymphocytes % 8.4 Monocytes % 3.5 Eosinophils % 0.0 Basophils % 0.2 Nucleated RBC % (0.0-0.3) % 0.0 Absolute Neutrophils (1.2-6.7) 10^3/uL 10.32 H Absolute Lymphocytes (1.2-3.4) 10^3/uL 0.99 L Absolute Monocytes (0.1-0.8) 10^3/uL 0.41 Absolute Eosinophils (0.0-0.7) 10^3/uL 0.00 Absolute Basophils (0.0-0.2) 10^3/uL 0.02 VBG pH (7.31-7.41) VBG pCO2 (41-51) mmHg VBG pO2 mmHg VBG HCO3 (23-28) mmol/L VBG Total CO2 (24-29) mmol/L VBG O2 Saturation % VBG Base Excess (-2-3) mmol/L Sodium (136-145) mmol/L 135 L Potassium (3.5-5.1) mmol/L 3.1 L Chloride (98-107) mmol/L 97 L Carbon Dioxide (21.0-32.0) mmol/L 25.7 Anion Gap (3-11) mmol/L 12.3 H BUN (7-18) mg/dL 27 H Creatinine (0.55-1.02) mg/dL 1.3 H Est GFR (CKD-EPI 2020) (mL/min/1.73m2) 52.00 Glucose (74-106) mg/dL 141 H Calcium (8.5-10.1) mg/dL 9.9 Magnesium (1.8-2.4) mg/dL 2.0 Total Bilirubin (0.2-1.0) mg/dL 1.1 H AST (15-37) U/L 7 L ALT (14-59) U/L 18 Alkaline Phosphatase (46-116) U/L 76 Troponin I (<or=60) ng/L < 50 Cancelled Total Protein (6.4-8.2) g/dL 8.3 H Albumin (3.4-5.0) g/dL 4.7 Procalcitonin ng/mL Range/Units 01/06/23 01/06/23 11:48 11:48 WBC (4.4-10.8) 10^3/uL RBC (3.93-5.22) 10^6/uL Hgb (11.2-15.7) g/dL Hct (36.0-46.0) % MCV (80-95) fL MCH (27.0-33.0) pg MCHC (32.0-36.0) % RDW (11.7-14.6) % Plt Count (130-400) 10^3/uL MPV (8.0-11.0) fL Immature Gran % Neutrophils % Lymphocytes % Monocytes % Eosinophils % Basophils % Nucleated RBC % (0.0-0.3) % Absolute Neutrophils (1.2-6.7) 10^3/uL Absolute Lymphocytes (1.2-3.4) 10^3/uL Absolute Monocytes (0.1-0.8) 10^3/uL Absolute Eosinophils (0.0-0.7) 10^3/uL Absolute Basophils (0.0-0.2) 10^3/uL VBG pH (7.31-7.41) 7.44 H VBG pCO2 (41-51) mmHg 36 L VBG pO2 mmHg 41 VBG HCO3 (23-28) mmol/L 24 VBG Total CO2 (24-29) mmol/L 21 L VBG O2 Saturation % 78 VBG Base Excess (-2-3) mmol/L 0 Sodium (136-145) mmol/L Potassium (3.5-5.1) mmol/L Chloride (98-107) mmol/L Carbon Dioxide (21.0-32.0) mmol/L Anion Gap (3-11) mmol/L BUN (7-18) mg/dL Creatinine (0.55-1.02) mg/dL Est GFR (CKD-EPI 2020) (mL/min/1.73m2) Glucose (74-106) mg/dL Calcium (8.5-10.1) mg/dL Magnesium (1.8-2.4) mg/dL Total Bilirubin (0.2-1.0) mg/dL AST (15-37) U/L ALT (14-59) U/L Alkaline Phosphatase (46-116) U/L Troponin I (<or=60) ng/L Total Protein (6.4-8.2) g/dL Albumin (3.4-5.0) g/dL Procalcitonin ng/mL < 0.1
[2023-01-06 12:35] LABS: Lactate 3.1 mmol/L (0.6-1.4)
[2023-01-06] MEDS: Normal Saline - Diluent 50 ML VIAL IJ (13:02)
[2023-01-06] MEDS: Omnipaque 350 MG/ML 500 ML BTL-Imaging package IJ (13:03)
--- NOTE | 2023-01-06 13:26 | DI.RAD_ITS ---
Exam(s) XR CHEST 2V PA LATERAL EXAM: XR CHEST 2V PA LATERAL CLINICAL HISTORY: weakness TECHNIQUE: 2D digital imaging was performed of the chest. Two images were obtained. PA and lateral views were obtained. COMPARISON: CR XR CHEST 2V PA LATERAL from 05/03/2021 FINDINGS: MEDIASTINUM: Normal. HEART: Normal. PULMONARY VASCULATURE: Normal. LUNGS: Clear. PLEURAL SPACE: No pleural effusion or pneumothorax. BONE:Within normal limits for the patient's age. OTHER FINDINGS:Normal. IMPRESSION: No acute pulmonary findings. DATA REPOSITORY: RADIATION DOSE DELIVERED:
[2023-01-06] MEDS: ACETAMINOPHEN 1,000 MG/100 ML BTL 400 MG IVPB (13:51)
[2023-01-06] MEDS: Haloperidol 5 MG/ML VIAL 1 MG IM/IV (13:51)
[2023-01-06] MEDS: FAMOTIDINE 20 MG/50 ML BAG 196.078 MG IVPB (13:51)
[2023-01-06 14:50] LABS: *AMPHETAMINES SCREEN URINE Negative (Negative); *BARBITURATES SCREEN URINE Negative (Negative); *BENZODIAZEPINES SCREEN URINE Negative (Negative); Cannabinoids THC Negative (Negative); Cocaine Screen,Urine Positive (Negative); METHADONE URINE SCREEN Negative (Negative); OPIATES URINE SCREEN Negative (Negative); Tricyclic Antidepressants Negative (Negative)
[2023-01-06 15:14] LABS: Lactate 2.4 mmol/L (0.6-1.4)
[2023-01-06 15:30] LABS: ALT 15 U/L (14-59); AST 7 U/L (15-37); Albumin 4.2 g/dL (3.4-5.0); Alkaline Phosphatase 70 U/L (46-116); BUN 22 mg/dL (7-18); Bilirubin, Total 0.8 mg/dL (0.2-1.0); CREATININE 1.2 mg/dL (0.55-1.02); Calcium 9.4 mg/dL (8.5-10.1); Chloride 98 mmol/L (98-107); Estimated GFR 57.24 (mL/min/1.73m2); Glucose 119 mg/dL (74-106); Potassium 3.3 mmol/L (3.5-5.1); Sodium 135 mmol/L (136-145); Total Protein 7.5 g/dL (6.4-8.2)
[2023-01-06] MEDS: Scopolamine 1 MG/3 DAYS PATCH TD (16:28)
== END 2023-01-06 16:33 | disposition home or self-care (01) ==
PROVIDERS: Emergency Provider Physician Assistant; PCP Family Medicine
DX: R11.2 Nausea with vomiting, unspecified (principal); E86.0 Dehydration; I44.7 Left bundle-branch block, unspecified; D68.51 Activated protein C resistance; Z86.718 Personal history of other venous thrombosis and embolism; Z86.711 Personal history of pulmonary embolism; Z79.01 Long term (current) use of anticoagulants
CPT/HCPCS: 36415; 80053; 80307; 82805; 84145; 93005; 96361; 96365; 96368; 96375; 96376; 99285; 70450; 71046; 74177; 83605; 83735; 84484; 85025; 93010; 99284; J0131; J0780; J1630

== ENCOUNTER 2023-03-12 16:39 | Emergency (ER) | payer MEDICARE, MEDICAID, SELFPAY ==
[2023-03-12 16:42] VITALS: BP 130/86; PULSE 67; RESP 18; TEMP 36.9
[2023-03-12] MEDS: Clindamycin 150 MG CAP, 12 CAPS/BTL 450 MG PO (17:13)
[2023-03-12] MEDS: hydrOXYzine PAMOATE 25 MG CAP PO (17:13)
[2023-03-12] MEDS: Clindamycin 150 MG CAP 450 MG PO (17:14)
[2023-03-12] MEDS: Hydrocortisone 1% CR 30 GM TUBE (17:16)
--- NOTE | 2023-03-12 17:47 | ED.GENADUL_ITS ---
Discharge Plan Disposition Patient Disposition: Home Condition: Stable Discharge Details Clinical Impression: Cellulitis, Insect bite Primary Care Provider: Patrica Santoro ED Provider: Nguyen Jiang Home Meds and New Rx's Prescriptions: New clindamycin HCl 150 mg capsule 450 mg PO TID 7 Days Qty: 63 0RF permethrin 5 % cream 1 applic topical Q14D Qty: 60 0RF Rx Instructions: apply second treatment 14 days after first treatment if live lice remain hydroxyzine HCl 10 mg tablet 10 mg PO TID PRN (Reason: anxiety) Qty: 10 0RF Rx Instructions: You may take 1 tablet at bedtime or up to 3 times daily as needed for anxiety. It will make you sleepy. Please do not operate heavy machinery while taking this medication. No Action sucralfate 1 gram tablet 1 g PO AC & HS Qty: 120 2RF Citracal Plus Bone Density 1 EACH tablet 1 ea PO BID cyproheptadine 4 MG tablet 4 mg PO HS Qty: 90 triamcinolone acetonide 0.1 % cream 1 applic Topical BID PRN (Reason: eczema) Qty: 60 1RF Rx Instructions: Apply to eczema methylphenidate HCl 20 mg tablet 20 mg PO TID MDD 60 mg Qty: 84 0RF epinephrine [EpiPen 2-Nino] 0.3 mg/0.3 mL auto-injector 0.3 mg IM ONCE Qty: 1 1RF fluticasone propionate [Flovent HFA] 220 mcg/actuation HFA aerosol inhaler 2 inh Inhalation BID Qty: 3 4RF omeprazole 40 mg capsule,delayed release(DR/EC) 40 mg PO DAILY Qty: 90 4RF clotrimazole-betamethasone 1-0.05 % cream 1 applic Topical BID PRN (Reason: rash) Qty: 45 1RF Rx Instructions: Apply to skin folds albuterol sulfate [ProAir HFA] 90 mcg/actuation HFA aerosol inhaler 2 puff Inhalation Q6H PRN MDD 6 puffs Qty: 3 4RF ondansetron HCl 8 mg tablet 8 mg PO BID PRN (Reason: nausea and vomiting) Qty: 20 0RF sumatriptan succinate 6 mg/0.5 mL pen injector 6 mg subcut ONCE MDD 12mg PRN (Reason: migraine headache) Qty: 90 1RF Rx Instructions: May repeat dose once in 1 hour if headache persists clonazepam 1 mg tablet 1 mg PO TID PRN (Reason: anxiety) Qty: 90 0RF Hold Instructions: Resume on 05/31/22. Hold until further instructions by PCP) naloxone [Narcan] 4 MG spray,non-aerosol 4 mg NS DAILY PRN PRNQty: 2 0RF Rx Instructions: One spray (4mg) intranasally into one nostril. Use a new nasal spray for subsequent dose in alternate nostril if needed. May repeat once after initial dose in 2-3 minutes. polyethylene glycol 3350 [Miralax] 17 gram Powder In Packet 17 g PO DAILY PRN Zyrtec 10 mg Capsule 10 mg PO DAILY topiramate [Topamax] 200 mg tablet 400 mg PO DAILY Rx Instructions: Brand name medically necessary acidophilus-pectin, citrus 25 million cell -100 mg tablet 1 tab PO DAILY albuterol sulfate 2.5 mg /3 mL (0.083 %) Solution For Nebulization 2.5 mg INHALATION TID ascorbic acid (vitamin C) [Vitamin C] 500 mg Tablet 500 mg PO BID Qty: 60 0RF wzbjevlygj-dvxvzoimuzyhx-ipzl [Fioricet] 50-300-40 mg capsule 1 cap PO Q4H PRNQty: 60 0RF Rx Instructions: Take 1-2 tabs as needed for WILLETT, not to exceed 6 tabs in 24 hours cholecalciferol (vitamin D3) [Vitamin D3] 50 mcg (2,000 unit) capsule 50 mcg PO DAILY Qty: 30 0RF melatonin 3 mg Tablet 6 mg PO HS Qty: 30 0RF prochlorperazine maleate [Compazine] 10 mg tablet 10 mg PO TID PRNQty: 60 0RF promethazine 25 mg tablet 25 mg PO TID PRNQty: 60 0RF (DME) inhalational spacing device 1 EACH spacer MISCELLANEOUS levothyroxine 125 mcg tablet 125 mcg PO HS hydrocodone-acetaminophen 10-300 mg tablet 1 tab PO Q6H PRNQty: 20 0RF enoxaparin 80 mg/0.8 mL syringe 80 mg subcut Q12H Qty: 60 0RF lorazepam 1 mg tablet 1 mg sublingual TID PRNQty: 30 0RF potassium chloride 20 mEq tablet,ER particles/crystals 20 meq PO DAILY Qty: 5 0RF magnesium 250 mg tablet 250 mg PO DAILY Qty: 7 0RF prochlorperazine maleate [Compazine] 10 mg tablet 10 mg PO Q8H PRNQty: 10 0RF promethazine 25 mg tablet 25 mg PO Q6H PRNQty: 10 0RF diphenhydramine HCl [Benadryl Allergy] 25 mg tablet 100 mg PO HS Patient Comments: Take 4 tablet by mouth at bedtime budesonide-formoterol [Symbicort] 160-4.5 mcg/actuation HFA aerosol inhaler 1 inh INHALATION QDAY Patient Comments: INHALE TWO PUFFS BY MOUTH TWICE A DAY AND NEEDED ondansetron 4 mg tablet,disintegrating 4 mg PO Q8H PRN (Reason: nausea and vomiting) Qty: 30 0RF scopolamine base 1 mg over 3 days patch 3 day 1 patch transdermal Q3D PRNQty: 4 0RF Discharge Instructions Instructions: Cellulitis (ED), Dermatitis (ED) Additional Instructions: Please take the antibiotic as directed with yogurt or probiotic. Apply the steroid cream as directed. Use the permethrin as directed. Follow up with primary care provider in 3-5 days. Return to ED sooner if any worsening or concerns. Increase oral fluids. Wash all linens in hot water. Please take Tylenol or Ibuprofen with food every 4-6 hours as needed for pain and swelling. Referrals: Patrica Santoro [Primary Care Provider] - 3 days Discharge Data Discharge Date/Time-TO BE ENTERED AT DEPARTURE: 03/12/23 18:07 Medical Decision Making 43-year-old female presents to the ER with chief complaint of skin lesions which have been there for an unknown amount of time. Patient states that she is been in contact with sand fleas from her friend. She reports pain and itching. She has multiple lesions with surrounding redness noted to her right lower extremity, back, hands and fingertips. She does proceed to show me some black lint which she says are the sand fleas. No obvious bugs noted. She denies any fever or chills. Does appears that she has some cellulitis noted to her right lower extremity. Will give her clindamycin as she has multiple medication allergies, will prescribe her permethrin topical hydrocortisone and Vistaril for the itching. Patient left prior to receiving her discharge papers, will send them to her via mail. This text was generated using [employer] dictation system, please disregard any oddities of phrase or misspellings. HPI General Mode of arrival: ambulatory . Date/Time Provider Initiated Documentation: 03/12/23 16:43 . Limitations to Documentation: no limitations . Information obtained by: patient, RN notes reviewed and old records reviewed . HPI Narrative: 43-year-old female presents to the ER with chief complaint of skin lesions which have been there for an unknown amount of time. Patient states that she is been in contact with sand fleas from her friend. She reports pain and itching. She has multiple lesions with surrounding redness noted to her right lower extremity, back, hands and fingertips. She does proceed to show me some black lint which she says are the sand fleas. No obvious bugs noted. She denies any fever or chills. Does appears that she has some cellulitis noted to her right lower extremity. Will give her clindamycin as she has multiple medication allergies, will prescribe her permethrin topical hydrocortisone and Vistaril for the itching. Related Data Home Medications Medication Instructions Recorded Confirmed calcium carb,cit 300 mg-D3 200 1 ea PO BID 11/09/12 09/06/22 unit-min no.34-genistein 13.5 mg tablet (Citracal Plus Bone Density Builder) cyproheptadine 4 mg tablet 4 mg PO HS #90 tab-caps 06/04/16 09/06/22 naloxone 4 mg/actuation nasal 4 mg NS DAILY PRN PRN #2 sprays 12/08/16 09/06/22 spray (Narcan) triamcinolone acetonide 0.1 % 1 applic topical BID PRN eczema 09/05/19 09/06/22 topical cream #60 grams methylphenidate HCl 20 mg tablet 20 mg PO TID #84 tab-caps 10/20/19 09/06/22 diphenhydramine HCl 25 mg tablet 100 mg PO HS 12/13/19 09/06/22 (Benadryl Allergy) sucralfate 1 gram tablet 1 g PO AC & HS #120 tabs 12/30/19 09/06/22 clotrimazole-betamethasone 1 1 applic topical BID PRN rash #45 02/22/20 09/06/22 %-0.05 % topical cream grams epinephrine 0.3 mg/0.3 mL 0.3 mg (0.3 mL) IM ONCE #1 ea 02/22/20 09/06/22 injection, auto-injector (EpiPen 2-Nino) fluticasone propionate 220 2 inh inhalation BID ##3 02/22/20 09/06/22 mcg/actuation HFA aerosol inhaler (Flovent HFA) omeprazole 40 mg capsule,delayed 40 mg PO DAILY GERD #90 caps 02/22/20 09/06/22 release albuterol sulfate 90 mcg/actuation 2 puff inhalation Q6H PRN ##3 03/07/20 09/06/22 aerosol inhaler (ProAir HFA) ondansetron HCl 8 mg tablet 8 mg PO BID PRN nausea and 03/07/20 09/06/22 vomiting #20 tabs sumatriptan succinate 6 mg/0.5 mL 6 mg (0.5 mL) subcut ONCE PRN 03/07/20 09/06/22 subcutaneous pen injector migraine headache #90 SYRGS clonazepam 1 mg tablet 1 mg PO TID PRN anxiety #90 tabs 03/20/20 09/06/22 acidophilus 25 million 1 tab PO DAILY 08/16/20 09/06/22 cell-pectin, citrus 100 mg tablet cetirizine 10 mg capsule (Zyrtec) 10 mg PO DAILY 08/16/20 09/06/22 polyethylene glycol 3350 17 gram 17 g PO DAILY PRN 08/16/20 09/06/22 oral powder packet (Miralax) topiramate 200 mg tablet (Topamax) 400 mg PO DAILY 08/16/20 09/06/22 albuterol sulfate 2.5 mg/3 mL 2.5 mg inhalation TID 05/03/21 09/06/22 (0.083 %) solution for nebulization ascorbic acid (vitamin C) 500 mg 500 mg PO BID #60 tabs 05/04/21 09/06/22 tablet (Vitamin C) ilwreuemkg-lpooudzsnzdzs-hntczhay 1 cap PO Q4H PRN #60 caps 05/04/21 09/06/22 50 mg-300 mg-40 mg capsule (Fioricet) cholecalciferol (vitamin D3) 50 50 mcg PO DAILY #30 caps 05/04/21 09/06/22 mcg (2,000 unit) capsule (Vitamin D3) melatonin 3 mg tablet 6 mg (2 x 3 mg) PO HS #30 tabs 05/04/21 09/06/22 prochlorperazine maleate 10 mg 10 mg PO TID PRN #60 tabs 05/04/21 09/06/22 tablet (Compazine) promethazine 25 mg tablet 25 mg PO TID PRN #60 tabs 05/04/21 09/06/22 budesonide-formoterol HFA 160 1 inh inhalation QDAY 01/22/22 09/06/22 mcg-4.5 mcg/actuation aerosol inhaler (Symbicort) inhalational spacing device 05/17/22 09/06/22 levothyroxine 125 mcg tablet 125 mcg PO HS 05/17/22 09/06/22 enoxaparin 80 mg/0.8 mL 80 mg (0.8 mL) subcut Q12H #60 05/19/22 09/06/22 subcutaneous syringe SYRGS hydrocodone 10 mg-acetaminophen 1 tab PO Q6H PRN #20 tabs 05/19/22 09/06/22 300 mg tablet lorazepam 1 mg tablet 1 mg sublingual TID PRN #30 tabs 05/19/22 09/06/22 ondansetron 4 mg disintegrating 4 mg PO Q8H PRN nausea and 07/29/22 09/06/22 tablet vomiting #30 tabs magnesium 250 mg tablet 250 mg PO DAILY #7 tabs 08/28/22 09/06/22 potassium chloride 20 mEq 20 meq PO DAILY #5 tabs 08/28/22 09/06/22 tablet,extended release(part/cryst) prochlorperazine maleate 10 mg 10 mg PO Q8H PRN #10 tabs 08/28/22 09/06/22 tablet (Compazine) promethazine 25 mg tablet 25 mg PO Q6H PRN #10 tabs 01/04/23 scopolamine base 1 mg over 3 days 1 patch transdermal Q3D PRN #4 ea 01/06/23 transdermal patch clindamycin HCl 150 mg capsule 450 mg (3 x 150 mg) PO TID 7 days 03/12/23 #63 caps hydroxyzine HCl 10 mg tablet 10 mg PO TID PRN anxiety #10 tabs 03/12/23 permethrin 5 % topical cream 1 applic topical Q14D 2 doses #60 03/12/23 grams Previous Rx's Medication Instructions Recorded naloxone 4 mg/actuation nasal 4 mg NS DAILY PRN PRN #2 sprays 12/08/16 spray (Narcan) triamcinolone acetonide 0.1 % 1 applic topical BID PRN eczema 09/05/19 topical cream #60 grams methylphenidate HCl 20 mg tablet 20 mg PO TID #84 tab-caps 10/20/19 sucralfate 1 gram tablet 1 g PO AC & HS #120 tabs 12/30/19 clotrimazole-betamethasone 1 1 applic topical BID PRN rash #45 02/22/20 %-0.05 % topical cream grams epinephrine 0.3 mg/0.3 mL 0.3 mg (0.3 mL) IM ONCE #1 ea 02/22/20 injection, auto-injector (EpiPen 2-Nino) fluticasone propionate 220 2 inh inhalation BID ##3 02/22/20 mcg/actuation HFA aerosol inhaler (Flovent HFA) omeprazole 40 mg capsule,delayed 40 mg PO DAILY GERD #90 caps 02/22/20 release albuterol sulfate 90 mcg/actuation 2 puff inhalation Q6H PRN ##3 03/07/20 aerosol inhaler (ProAir HFA) ondansetron HCl 8 mg tablet 8 mg PO BID PRN nausea and 03/07/20 vomiting #20 tabs sumatriptan succinate 6 mg/0.5 mL 6 mg (0.5 mL) subcut ONCE PRN 03/07/20 subcutaneous pen injector migraine headache #90 SYRGS clonazepam 1 mg tablet 1 mg PO TID PRN anxiety #90 tabs 03/20/20 ascorbic acid (vitamin C) 500 mg 500 mg PO BID #60 tabs 05/04/21 tablet (Vitamin C) cdjazmwfst-bfzfhhjnuepmc-sbseqywi 1 cap PO Q4H PRN #60 caps 05/04/21 50 mg-300 mg-40 mg capsule (Fioricet) cholecalciferol (vitamin D3) 50 50 mcg PO DAILY #30 caps 05/04/21 mcg (2,000 unit) capsule (Vitamin D3) melatonin 3 mg tablet 6 mg (2 x 3 mg) PO HS #30 tabs 05/04/21 prochlorperazine maleate 10 mg 10 mg PO TID PRN #60 tabs 05/04/21 tablet (Compazine) promethazine 25 mg tablet 25 mg PO TID PRN #60 tabs 05/04/21 enoxaparin 80 mg/0.8 mL 80 mg (0.8 mL) subcut Q12H #60 05/19/22 subcutaneous syringe SYRGS hydrocodone 10 mg-acetaminophen 1 tab PO Q6H PRN #20 tabs 05/19/22 300 mg tablet lorazepam 1 mg tablet 1 mg sublingual TID PRN #30 tabs 05/19/22 ondansetron 4 mg disintegrating 4 mg PO Q8H PRN nausea and 07/29/22 tablet vomiting #30 tabs magnesium 250 mg tablet 250 mg PO DAILY #7 tabs 08/28/22 potassium chloride 20 mEq 20 meq PO DAILY #5 tabs 08/28/22 tablet,extended release(part/cryst) prochlorperazine maleate 10 mg 10 mg PO Q8H PRN #10 tabs 08/28/22 tablet (Compazine) promethazine 25 mg tablet 25 mg PO Q6H PRN #10 tabs 01/04/23 scopolamine base 1 mg over 3 days 1 patch transdermal Q3D PRN #4 ea 01/06/23 transdermal patch clindamycin HCl 150 mg capsule 450 mg (3 x 150 mg) PO TID 7 days 03/12/23 #63 caps hydroxyzine HCl 10 mg tablet 10 mg PO TID PRN anxiety #10 tabs 03/12/23 permethrin 5 % topical cream 1 applic topical Q14D 2 doses #60 03/12/23 grams Allergies Allergy/AdvReac Type Severity Reaction Status Date / Time aripiprazole [From Abilify] Allergy Severe Rash, hives Verified 09/06/22 21:57 doxycycline Allergy Severe Anaphylaxsi Verified 09/06/22 21:57 s levetiracetam [From Keppra] Allergy Severe RASH/HIVES Verified 09/06/22 21:57 sulfamethoxazole Allergy Severe Hives Verified 09/06/22 21:57 venom-honey bee Allergy Severe unknown Verified 09/06/22 21:57 Penicillins Allergy Intermediate Skin Rash Verified 09/06/22 21:57 chlorhexidine Allergy Unknown unknown Verified 09/06/22 21:57 Sulfa (Sulfonamide Allergy Verified 09/06/22 21:57 Antibiotics) mold AdvReac Severe Wheezing Verified 09/06/22 21:57 oxycodone [Oxycodone] AdvReac Severe vomits Verified 09/06/22 21:57 paroxetine AdvReac Severe Irritability Verified 09/06/22 21:57 and anger dicloxacillin [Dicloxacillin] AdvReac Mild Nausea, GI Verified 09/06/22 21:57 upset gabapentin AdvReac Mild hives Verified 09/06/22 21:57 prednisone AdvReac Agitation Verified 09/06/22 21:57 trazodone AdvReac shortness Verified 09/06/22 21:57 of breath verapamil [Verapamil] AdvReac Worsening Verified 09/06/22 21:57 migraine nuts Allergy Severe Anaphylaxsi Uncoded 09/06/22 21:57 s General Stated Complaint: AnimalBite RYNE: 3 Review of Systems All systems reviewed & are unremarkable except as noted in HPI and below Integumentary/Breasts Skin/Breast: Reports as per HPI, Reports pruritus, Reports lesions, Reports skin pain and Reports sores PFSH All Active Problems Insect bite (Acute) Cellulitis (Acute) Pulmonary embolism (Acute) Anxiety (Chronic) DVT prophylaxis (Acute) Intractable nausea and vomiting (Acute) Enterocolitis (Acute) Gastroesophagitis (Acute) Leukocytosis, unspecified (Acute) Intractable nausea and vomiting (Acute) Chronic anticoagulation (Chronic) On coumadin Cyclic vomiting syndrome (Acute) Panic disorder (Chronic 03/21/16) Chronic back pain greater than 3 months duration (Chronic 12/29/14) ADHD (attention deficit hyperactivity disorder), 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) B12 deficiency (Chronic) Medical History Normocytic anemia Primary hypercoagulable state Acute renal insufficiency Acute deep vein thrombosis (DVT) of left lower extremity Orbital cellulitis on left Candidiasis Iatrogenic pulmonary embolism and infarction Left lower quadrant pain (01/27/12) Thrombosis of arteries of lower extremity Preseptal cellulitis of left eye Vaginal candidiasis Hematuria Left buttock abscess Other enthesopathies, not elsewhere classified (03/21/16) Neck Asthma (11/08/12) Cyst of fallopian tube Right lower quadrant abdominal pain inflamed/ruptured fallopian tube on the right Nephrolithiasis Migraine headache Hypothyroidism GERD (gastroesophageal reflux disease) Depression Recurrent deep vein thrombosis (DVT) Chronic anticoagulation Intractable vomiting with nausea History of DVT (deep vein thrombosis) Factor V Leiden mutation Cellulitis of left leg Surgical History History of arthroscopy of knee Status post LEEP (loop electrosurgical excision procedure) of cervix Status post cholecystectomy 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) S/P appendectomy (12/24/17) Dr Veliz - Lap appy and lap excision of R fallopian tube remnant THUMB RECONSTRUCTION left; in childhood Abdominal hysterectomy (~2009) Cholecystectomy Cervical Conization/LEEP LEEP 2002 CONE BX 2003 Bilateral salpingectomy with oophorectomy (~2008) Arthroplasty of knee (~1999) left Social History Smoking/Tobacco Use Status: Never Smoking risk assessment performed?: Yes Alcohol Intake: former Substance use type: does not use Current gender identity: female Do you feel safe at home: Yes Do you feel safe in your relationship?: Yes Additional Social history: unable to assess alone Exam Skin Lesions: lesion noted erosion right lower lower leg Full body images: 2 1. Multiple eroded lesions with surrounding induration and erythema 2. Multiple eroded lesions with surrounding induration and erythema Course Vital Signs Vital signs: Vital Signs Temperature 36.9 C 03/12/23 16:42 Pulse 67 03/12/23 16:42 Respiratory Rate 18 03/12/23 16:42 Blood Pressure 130/86 03/12/23 16:42 Temperature 36.9 C 03/12/23 16:42 Temperature Source Temporal Artery Scan 03/12/23 16:42 Pulse 67 03/12/23 16:42 Respiratory Rate 18 03/12/23 16:42 Respiratory Effort Normal 03/12/23 16:46 Blood Pressure 130/86 03/12/23 16:42 Blood Pressure Position Sitting 03/12/23 16:42 Oxygen Delivery Method Room Air 03/12/23 16:42 Oxygen Flow Rate 0 03/12/23 16:42
== END 2023-03-12 18:07 | disposition home or self-care (01) ==
PROVIDERS: Emergency Provider Registered Nurse Emergency; PCP Family Medicine
DX: L03.90 Cellulitis, unspecified (principal); W57.XXXA Bitten or stung by nonvenomous insect and other nonvenomous arthropods, initial encounter
CPT/HCPCS: 99283

== ENCOUNTER 2023-09-22 12:52 | Emergency (ER) | payer MEDICARE, MEDICAID, SELFPAY ==
[2023-09-22] VITALS (14 sets, daily range): BP systolic 129–189; BP diastolic 91–136; PULSE 67–94; RESP 18; TEMP 36.3; O2SAT 64–100
--- NOTE | 2023-09-22 12:45 | DI.US_ITS ---
Exam(s) US LOWER EXTREMITY VENOUS RT EXAM: US LOWER EXTREMITY VENOUS RT CLINICAL HISTORY: hx clots, R leg pain/swell TECHNIQUE: Grayscale, color, and doppler imaging of the deep venous system of the right lower extrem ity was performed. COMPARISON: US POCUS EXAM from 09/06/2022 Ultrasound 05/17/2022 (left DVT at that time no DVT on the right side). FINDINGS: There is no evidence of DVT at and above the level of the right knee. In the right calf there is both acute and chronic appearing DVT evident in the proximal-mid posterior tibial veins. Also similar findings in the proximal-mid right peroneal veins in the calf. There is no extension into the ipsilateral popliteal vein nor above this level. There is also superficial thrombus evident in the distal supraspinatus shows saphenous vein of the ri ght lower extremity with clot length of 13-14 cm. This corresponds to area of pain. IMPRESSION: 1. Positive study for DVT in the right lower extremity below the level the knee involving the proxim al-mid posterior tibial and peroneal veins. Appearance is that of acute upon chronic thrombus. Ther e is no clot extension into the popliteal vein nor DVT above the level of the knee. 2. Also positive for superficial thrombophlebitis in the distal right superficial saphenous vein of the lower leg with clot length approximately 13-14 cm. Called by myself to ER provider DATA REPOSITORY:
--- NOTE | 2023-09-22 13:07 | W.ED.GENAD ---
Discharge Plan Disposition Patient Disposition: Home Condition: Stable Discharge Details Clinical Impression: Deep vein thrombosis of right lower extremity Primary Care Provider: Patrica Santoro ED Provider: Kobi Boateng Home Meds and New Rx's Prescriptions: New enoxaparin 80 mg/0.8 mL syringe 80 mg subcut Q12H 30 Days Qty: 48 0RF permethrin 5 % cream 1 applic topical Q14D Qty: 60 0RF Rx Instructions: apply second treatment 14 days after first treatment if live lice remain Continued sucralfate 1 gram tablet 1 g PO AC & HS Qty: 120 2RF Citracal Plus Bone Density 1 EACH tablet 1 ea PO BID cyproheptadine 4 MG tablet 4 mg PO HS Qty: 90 triamcinolone acetonide 0.1 % cream 1 applic Topical BID PRN (Reason: eczema) Qty: 60 1RF Rx Instructions: Apply to eczema methylphenidate HCl 20 mg tablet 20 mg PO TID MDD 60 mg Qty: 84 0RF epinephrine [EpiPen 2-Nino] 0.3 mg/0.3 mL auto-injector 0.3 mg IM ONCE Qty: 1 1RF fluticasone propionate [Flovent HFA] 220 mcg/actuation HFA aerosol inhaler 2 inh Inhalation BID Qty: 3 4RF omeprazole 40 mg capsule,delayed release(DR/EC) 40 mg PO DAILY Qty: 90 4RF clotrimazole-betamethasone 1-0.05 % cream 1 applic Topical BID PRN (Reason: rash) Qty: 45 1RF Rx Instructions: Apply to skin folds albuterol sulfate [ProAir HFA] 90 mcg/actuation HFA aerosol inhaler 2 puff Inhalation Q6H PRN MDD 6 puffs Qty: 3 4RF ondansetron HCl 8 mg tablet 8 mg PO BID PRN (Reason: nausea and vomiting) Qty: 20 0RF sumatriptan succinate 6 mg/0.5 mL pen injector 6 mg subcut ONCE MDD 12mg PRN (Reason: migraine headache) Qty: 90 1RF Rx Instructions: May repeat dose once in 1 hour if headache persists clonazepam 1 mg tablet 1 mg PO TID PRN (Reason: anxiety) Qty: 90 0RF Hold Instructions: Resume on 05/31/22. Hold until further instructions by PCP) naloxone [Narcan] 4 MG spray,non-aerosol 4 mg NS DAILY PRN PRNQty: 2 0RF Rx Instructions: One spray (4mg) intranasally into one nostril. Use a new nasal spray for subsequent dose in alternate nostril if needed. May repeat once after initial dose in 2-3 minutes. polyethylene glycol 3350 [Miralax] 17 gram Powder In Packet 17 g PO DAILY PRN Zyrtec 10 mg Capsule 10 mg PO DAILY topiramate [Topamax] 200 mg tablet 400 mg PO DAILY Rx Instructions: Brand name medically necessary acidophilus-pectin, citrus 25 million cell -100 mg tablet 1 tab PO DAILY albuterol sulfate 2.5 mg /3 mL (0.083 %) Solution For Nebulization 2.5 mg INHALATION TID ascorbic acid (vitamin C) [Vitamin C] 500 mg Tablet 500 mg PO BID Qty: 60 0RF [id number] [Fioricet] 50-300-40 mg capsule 1 cap PO Q4H PRNQty: 60 0RF Rx Instructions: Take 1-2 tabs as needed for WILLETT, not to exceed 6 tabs in 24 hours cholecalciferol (vitamin D3) [Vitamin D3] 50 mcg (2,000 unit) capsule 50 mcg PO DAILY Qty: 30 0RF melatonin 3 mg Tablet 6 mg PO HS Qty: 30 0RF prochlorperazine maleate [Compazine] 10 mg tablet 10 mg PO TID PRNQty: 60 0RF promethazine 25 mg tablet 25 mg PO TID PRNQty: 60 0RF (DME) inhalational spacing device 1 EACH spacer MISCELLANEOUS levothyroxine 125 mcg tablet 125 mcg PO HS hydrocodone-acetaminophen 10-300 mg tablet 1 tab PO Q6H PRNQty: 20 0RF enoxaparin 80 mg/0.8 mL syringe 80 mg subcut Q12H Qty: 60 0RF lorazepam 1 mg tablet 1 mg sublingual TID PRNQty: 30 0RF potassium chloride 20 mEq tablet,ER particles/crystals 20 meq PO DAILY Qty: 5 0RF magnesium 250 mg tablet 250 mg PO DAILY Qty: 7 0RF prochlorperazine maleate [Compazine] 10 mg tablet 10 mg PO Q8H PRNQty: 10 0RF promethazine 25 mg tablet 25 mg PO Q6H PRNQty: 10 0RF permethrin 5 % cream 1 applic topical Q14D Qty: 60 0RF Rx Instructions: apply second treatment 14 days after first treatment if live lice remain hydroxyzine HCl 10 mg tablet 10 mg PO TID PRN (Reason: anxiety) Qty: 10 0RF Rx Instructions: You may take 1 tablet at bedtime or up to 3 times daily as needed for anxiety. It will make you sleepy. Please do not operate heavy machinery while taking this medication. diphenhydramine HCl [Benadryl Allergy] 25 mg tablet 100 mg PO HS Patient Comments: Take 4 tablet by mouth at bedtime budesonide-formoterol [Symbicort] 160-4.5 mcg/actuation HFA aerosol inhaler 1 inh INHALATION QDAY Patient Comments: INHALE TWO PUFFS BY MOUTH TWICE A DAY AND NEEDED ondansetron 4 mg tablet,disintegrating 4 mg PO Q8H PRN (Reason: nausea and vomiting) Qty: 30 0RF scopolamine base 1 mg over 3 days patch 3 day 1 patch transdermal Q3D PRNQty: 4 0RF Discharge Instructions Instructions: Permethrin (On the skin), Enoxaparin (By injection), Superficial Thrombophlebitis (ED), Deep Vein Thrombosis (ED) Additional Instructions: You were seen in the emergency department for your right lower extremity pain, there was extensive superficial clot seen in your distal right lower extremity as well as some small DVTs. You have been unable to take your subcutaneous Lovenox for some time due to social issues. I have sent a refill of Lovenox to [facility] in [place], as well as you requested permethrin for possible scabies outbreak at the former place you were staying. I have sent referrals for care management and community connections to help you navigate your upcoming appointments, it is hopeful that they can get your primary care to refill some of your medicines before you can be seen due to transportation issues. Please call your [facility] hematology practice and state that you are restarting your Lovenox due to DVT and superficial thrombophlebitis of right lower extremity. You may need a referral to [facility]'s vascular surgery clinic for your extensive superficial thrombophlebitis but the most important thing currently is to get you back on your anticoagulant. Please return to the emergency department for any severe increasing right lower extremity pain, increasing swelling of unilateral lower extremity, a chest pain, any shortness of breath, any increasing skin changes. Referrals: Care Management [Provider Group] [facility] [Outside] (Hematology Practice) Patrica Santoro [Primary Care Provider] - HPI General Date/Time Provider Initiated Documentation: 09/22/23 12:58. HPI Narrative: [ ] year-old [ ] presents to ED today by [ ] with a chief complaint of [ ] with onset [ ]. Quality described as [ ], [ ] radiation to [ ]. Severity is described as [ ]/10. Palliating factors include [ ]. Provoking factors include [ ]. Events leading up to the incident/Associated Symptoms: [ ]. Patient [ ] anticoagulated. Related Data Home Medications Medication Instructions Recorded Confirmed calcium carb,cit 300 mg-D3 200 1 ea PO BID 11/09/12 09/22/23 unit-min no.34-genistein 13.5 mg tablet (Citracal Plus Bone Density Builder) cyproheptadine 4 mg tablet 4 mg PO HS #90 tab-caps 06/04/16 09/22/23 naloxone 4 mg/actuation nasal 4 mg NS DAILY PRN PRN #2 sprays 12/08/16 09/22/23 spray (Narcan) triamcinolone acetonide 0.1 % 1 applic topical BID PRN eczema 09/05/19 09/22/23 topical cream #60 grams methylphenidate HCl 20 mg tablet 20 mg PO TID #84 tab-caps 10/20/19 09/22/23 diphenhydramine HCl 25 mg tablet 100 mg PO HS 12/13/19 09/22/23 (Benadryl Allergy) sucralfate 1 gram tablet 1 g PO AC & HS #120 tabs 12/30/19 09/22/23 clotrimazole-betamethasone 1 1 applic topical BID PRN rash #45 02/22/20 09/22/23 %-0.05 % topical cream grams epinephrine 0.3 mg/0.3 mL 0.3 mg (0.3 mL) IM ONCE #1 ea 02/22/20 09/22/23 injection, auto-injector (EpiPen 2-Nino) fluticasone propionate 220 2 inh inhalation BID ##3 02/22/20 09/22/23 mcg/actuation HFA aerosol inhaler (Flovent HFA) omeprazole 40 mg capsule,delayed 40 mg PO DAILY GERD #90 caps 02/22/20 09/22/23 release albuterol sulfate 90 mcg/actuation 2 puff inhalation Q6H PRN ##3 03/07/20 09/22/23 aerosol inhaler (ProAir HFA) ondansetron HCl 8 mg tablet 8 mg PO BID PRN nausea and 03/07/20 09/22/23 vomiting #20 tabs sumatriptan succinate 6 mg/0.5 mL 6 mg (0.5 mL) subcut ONCE PRN 03/07/20 09/22/23 subcutaneous pen injector migraine headache #90 SYRGS clonazepam 1 mg tablet 1 mg PO TID PRN anxiety #90 tabs 03/20/20 09/22/23 acidophilus 25 million 1 tab PO DAILY 08/16/20 09/22/23 cell-pectin, citrus 100 mg tablet cetirizine 10 mg capsule (Zyrtec) 10 mg PO DAILY 08/16/20 09/22/23 polyethylene glycol 3350 17 gram 17 g PO DAILY PRN 08/16/20 09/22/23 oral powder packet (Miralax) topiramate 200 mg tablet (Topamax) 400 mg PO DAILY 08/16/20 09/22/23 albuterol sulfate 2.5 mg/3 mL 2.5 mg inhalation TID 05/03/21 09/22/23 (0.083 %) solution for nebulization ascorbic acid (vitamin C) 500 mg 500 mg PO BID #60 tabs 05/04/21 09/22/23 tablet (Vitamin C) nqakxcjdgx-pgcovxmamrpha-cincczjs 1 cap PO Q4H PRN #60 caps 05/04/21 09/22/23 50 mg-300 mg-40 mg capsule (Fioricet) cholecalciferol (vitamin D3) 50 50 mcg PO DAILY #30 caps 05/04/21 09/22/23 mcg (2,000 unit) capsule (Vitamin D3) melatonin 3 mg tablet 6 mg (2 x 3 mg) PO HS #30 tabs 05/04/21 09/22/23 prochlorperazine maleate 10 mg 10 mg PO TID PRN #60 tabs 05/04/21 09/22/23 tablet (Compazine) promethazine 25 mg tablet 25 mg PO TID PRN #60 tabs 05/04/21 09/22/23 budesonide-formoterol HFA 160 1 inh inhalation QDAY 01/22/22 09/22/23 mcg-4.5 mcg/actuation aerosol inhaler (Symbicort) inhalational spacing device 05/17/22 09/22/23 levothyroxine 125 mcg tablet 125 mcg PO HS 05/17/22 09/22/23 enoxaparin 80 mg/0.8 mL 80 mg (0.8 mL) subcut Q12H #60 05/19/22 09/22/23 subcutaneous syringe SYRGS hydrocodone 10 mg-acetaminophen 1 tab PO Q6H PRN #20 tabs 05/19/22 09/22/23 300 mg tablet lorazepam 1 mg tablet 1 mg sublingual TID PRN #30 tabs 05/19/22 09/22/23 ondansetron 4 mg disintegrating 4 mg PO Q8H PRN nausea and 07/29/22 09/22/23 tablet vomiting #30 tabs magnesium 250 mg tablet 250 mg PO DAILY #7 tabs 08/28/22 09/22/23 potassium chloride 20 mEq 20 meq PO DAILY #5 tabs 08/28/22 09/22/23 tablet,extended release(part/cryst) prochlorperazine maleate 10 mg 10 mg PO Q8H PRN #10 tabs 08/28/22 09/22/23 tablet (Compazine) promethazine 25 mg tablet 25 mg PO Q6H PRN #10 tabs 01/04/23 09/22/23 scopolamine base 1 mg over 3 days 1 patch transdermal Q3D PRN #4 ea 01/06/23 09/22/23 transdermal patch hydroxyzine HCl 10 mg tablet 10 mg PO TID PRN anxiety #10 tabs 03/12/23 09/22/23 permethrin 5 % topical cream 1 applic topical Q14D 2 doses #60 03/12/23 09/22/23 grams enoxaparin 80 mg/0.8 mL 80 mg (0.8 mL) subcut Q12H DVT 30 09/22/23 subcutaneous syringe days #48 mL permethrin 5 % topical cream 1 applic topical Q14D scabies 2 09/22/23 doses #60 grams Previous Rx's Medication Instructions Recorded naloxone 4 mg/actuation nasal 4 mg NS DAILY PRN PRN #2 sprays 12/08/16 spray (Narcan) triamcinolone acetonide 0.1 % 1 applic topical BID PRN eczema 09/05/19 topical cream #60 grams methylphenidate HCl 20 mg tablet 20 mg PO TID #84 tab-caps 10/20/19 sucralfate 1 gram tablet 1 g PO AC & HS #120 tabs 12/30/19 clotrimazole-betamethasone 1 1 applic topical BID PRN rash #45 02/22/20 %-0.05 % topical cream grams epinephrine 0.3 mg/0.3 mL 0.3 mg (0.3 mL) IM ONCE #1 ea 02/22/20 injection, auto-injector (EpiPen 2-Nino) fluticasone propionate 220 2 inh inhalation BID ##3 02/22/20 mcg/actuation HFA aerosol inhaler (Flovent HFA) omeprazole 40 mg capsule,delayed 40 mg PO DAILY GERD #90 caps 02/22/20 release albuterol sulfate 90 mcg/actuation 2 puff inhalation Q6H PRN ##3 03/07/20 aerosol inhaler (ProAir HFA) ondansetron HCl 8 mg tablet 8 mg PO BID PRN nausea and 03/07/20 vomiting #20 tabs sumatriptan succinate 6 mg/0.5 mL 6 mg (0.5 mL) subcut ONCE PRN 03/07/20 subcutaneous pen injector migraine headache #90 SYRGS clonazepam 1 mg tablet 1 mg PO TID PRN anxiety #90 tabs 03/20/20 ascorbic acid (vitamin C) 500 mg 500 mg PO BID #60 tabs 05/04/21 tablet (Vitamin C) ueuaerbyaz-uqqhqlvttxgbm-slptdsqa 1 cap PO Q4H PRN #60 caps 05/04/21 50 mg-300 mg-40 mg capsule (Fioricet) cholecalciferol (vitamin D3) 50 50 mcg PO DAILY #30 caps 05/04/21 mcg (2,000 unit) capsule (Vitamin D3) melatonin 3 mg tablet 6 mg (2 x 3 mg) PO HS #30 tabs 05/04/21 prochlorperazine maleate 10 mg 10 mg PO TID PRN #60 tabs 05/04/21 tablet (Compazine) promethazine 25 mg tablet 25 mg PO TID PRN #60 tabs 05/04/21 enoxaparin 80 mg/0.8 mL 80 mg (0.8 mL) subcut Q12H #60 05/19/22 subcutaneous syringe SYRGS hydrocodone 10 mg-acetaminophen 1 tab PO Q6H PRN #20 tabs 05/19/22 300 mg tablet lorazepam 1 mg tablet 1 mg sublingual TID PRN #30 tabs 05/19/22 ondansetron 4 mg disintegrating 4 mg PO Q8H PRN nausea and 07/29/22 tablet vomiting #30 tabs magnesium 250 mg tablet 250 mg PO DAILY #7 tabs 08/28/22 potassium chloride 20 mEq 20 meq PO DAILY #5 tabs 08/28/22 tablet,extended release(part/cryst) prochlorperazine maleate 10 mg 10 mg PO Q8H PRN #10 tabs 08/28/22 tablet (Compazine) promethazine 25 mg tablet 25 mg PO Q6H PRN #10 tabs 01/04/23 scopolamine base 1 mg over 3 days 1 patch transdermal Q3D PRN #4 ea 01/06/23 transdermal patch hydroxyzine HCl 10 mg tablet 10 mg PO TID PRN anxiety #10 tabs 03/12/23 permethrin 5 % topical cream 1 applic topical Q14D 2 doses #60 03/12/23 grams enoxaparin 80 mg/0.8 mL 80 mg (0.8 mL) subcut Q12H DVT 30 09/22/23 subcutaneous syringe days #48 mL permethrin 5 % topical cream 1 applic topical Q14D scabies 2 09/22/23 doses #60 grams Allergies Allergy/AdvReac Type Severity Reaction Status Date / Time aripiprazole [From Abilify] Allergy Severe Rash, hives Verified 09/22/23 12:58 doxycycline Allergy Severe Anaphylaxsi Verified 09/22/23 12:58 s levetiracetam [From Keppra] Allergy Severe RASH/HIVES Verified 09/22/23 12:58 sulfamethoxazole Allergy Severe Hives Verified 09/22/23 12:58 venom-honey bee Allergy Severe unknown Verified 09/22/23 12:58 Penicillins Allergy Intermediate Skin Rash Verified 09/22/23 12:58 chlorhexidine Allergy Unknown unknown Verified 09/22/23 12:58 Sulfa (Sulfonamide Allergy Other (See Verified 09/22/23 12:58 Antibiotics) Comment) mold AdvReac Severe Wheezing Verified 09/22/23 12:58 oxycodone [Oxycodone] AdvReac Severe vomits Verified 09/22/23 12:58 paroxetine AdvReac Severe Irritability Verified 09/22/23 12:58 and anger dicloxacillin [Dicloxacillin] AdvReac Mild Nausea, GI Verified 09/22/23 12:58 upset gabapentin AdvReac Mild hives Verified 09/22/23 12:58 prednisone AdvReac Agitation Verified 09/22/23 12:58 trazodone AdvReac shortness Verified 09/22/23 12:58 of breath verapamil [Verapamil] AdvReac Worsening Verified 09/22/23 12:58 migraine nuts Allergy Severe Anaphylaxsi Uncoded 09/22/23 12:58 s General Stated Complaint: Orthopedic RYNE: 3 Review of Systems All systems reviewed & are unremarkable except as noted in HPI and below Exam Narrative Exam Narrative: GENERAL APPEARANCE: Well-nourished, non-toxic, awake and alert, atraumatic, no acute distress. SKIN: Warm, pink, dry, intact, without rashes/lesions/ulcerations. HEAD: Normocephalic, atraumatic, normal hair distribution for gender/age. EYES: Pupils PERRLA, EOMs intact without nystagmus, normal conjunctiva, no exudates on lids/lashes. ENT: Nares patent, no circumoral cyanosis, no facial swelling NECK: Supple, trachea midline, painless cervical ROM. LUNGS/CHEST: Non-labored respirations, normal A/P diameter, symmetrical expansion, no chest wall deformity HEART (CV/PV): Regular rate, R dorsalis pedis pulse 2+, no peripheral edema, no JVD. ABDOMEN: Soft, non-distended, no guarding. MSK: Normal ROM, no swelling/deformity to bilateral UEs or LEs, moving all extremities without weakness, no cyanosis, spine midline without tenderness, normal curvature. R LE: Tenderness to palpation around the right Achilles proximal insertion, no unilateral calf swelling, no medial thigh tenderness, Homans negative, no major skin changes of DVT NEURO: Mental Status AAOx4 - alert to person, place, time, events No facial droop, no forehead involvement. Motor: No focal weakness - strength 5/5 in bilateral UEs and LEs, proximal and distal, symmetric. Sensory: sensation intact to light touch globally. Gait normal: patient ambulated without ataxia into ED room. PSYCH: euthymic, cooperative, pleasant, appropriate speech Course Vital Signs Vital signs: Vital Signs Temperature 36.3 C L 09/22/23 12:56 Pulse 94 H 09/22/23 12:56 Respiratory Rate 18 09/22/23 12:56 Blood Pressure 129/104 H 09/22/23 12:56 Pulse Oximetry 100 09/22/23 12:56 Temperature 36.3 C L 09/22/23 12:56 Temperature Source Skin 09/22/23 12:56 Pulse 94 H 09/22/23 12:56 Respiratory Rate 18 09/22/23 12:56 Blood Pressure 129/104 H 09/22/23 12:56 Blood Pressure Position Sitting 09/22/23 12:56 Pulse Oximetry 100 09/22/23 12:56 Oxygen Delivery Method Room Air 09/22/23 12:56 Oxygen Flow Rate 0 09/22/23 12:56 Pain Level 7 09/22/23 12:56 Medical Decision Making This dictation utilizes [id number] dictation software and may contain unedited grammatical errors. 43 y/o F presents to ED today with a chief complaint of nonadherence to long-term Lovenox, feels she may have a blood clot in her R leg, history of many blood clots. Patient localizes the area of pain to the posterior distal calf in the proximal Achilles region without severe unilateral leg swelling, and no medial thigh tenderness. Patient states she has been noncompliant with her meds due to social circumstances, has been living in a hotel with recent scabies exposure. Patient is having trouble getting to [facility] hematology for appointments, and do [facility] for PCP appointments- states [facility] won't drive her because she has a car registered in her name that is broken. Patients' medical history: Primary hypercoagulable state, acute renal insufficiency, history of iatrogenic pulmonary embolism and infarct, asthma, GERD, factor V Leiden, cyclical vomiting syndrome. Family and social history: [ ]. Pertinent exam findings / vital signs include pain localized in the right lower extremity at the posterior calf from the proximal Achilles tendon insertion, no unilateral calf swelling, no medial thigh tenderness, Homans negative. Differential / pathologies of concern include superficial thrombophlebitis, DVT, tendinitis. Diagnostic studies of: -US R LE DVT Study. -positive for extensive superficial thrombophlebitis, some DVTs below the knee Added PT/PTT, CBC, CMP, Trop I & BNP for basic studies to have on file as we are restarting Lovenox SQ outpatient. -Patient signed out with these pending. Interventions of: -Permetherin cream Rx sent, refilled her Lovenox Rx, connected with Care Management and Community [facility]. ED Course/Assessment/Plan: 43-year-old female presents with right leg pain feels like a blood clot, has a history of factor V Leiden, is on SQ Lovenox due to long-term oral anticoagulation and significant DVTs presenting while on p.o. medications. Has some DVTs and superficial clot below the knee of right leg, patient has social barriers to being adherent to medications currently and has been living in a hotel, she was kicked out of her residence and unable to retrieve some of her medications. I did prescribe her a month supply of Lovenox as well as permethrin for reported scabies infestation at her prior place of living with some macular type infestation bite broussard on her arms, referred the patient to [facility]. Would like [facility] to work with patient's primary care provider and getting her refills of medications without a visit if she cannot get to an appointment due to high risk of without these medicines. Encourage [facility] to have the patient's primary care provider get the patient in with vascular surgery referral for her superficial thrombophlebitis though she has not required any prior vascular surgeries in the past. I encouraged her to call her hematology provider at [facility] and attempt to be seen by any transportation means possible to soon as possible. Strict return criteria for severe increase in leg pain, unilateral leg swelling increasing, worsening skin changes, chest pain, shortness of breath or any other emergent concern. Patient signed out to oncoming provider Jazmin Jiang NP with some basic labs pending, check for right heart strain with Trope and BNP, may need a reflex EKG and consult if this is positive-or further imaging. Basic studies like PT PTT to restart Lovenox. Care management community connections referrals pending also at time of signout Findings not consistent with proximal DVT, tachycardia, hypoxia. Disposition of Deep Vein Thrombosis of Right Lower Extremity. Patient verbalized understanding of the plan and return to ED criteria and engaged in shared decision making. Medical Records Medical records reviewed: Yes I reviewed the patient's medical records. Imaging Data Radiologic Study: Attestation: I personally reviewed and interpreted this imaging study as follows: Imaging: Ultrasound Radiologist's impression: EXAM: US LOWER EXTREMITY VENOUS RT CLINICAL HISTORY: hx clots, R leg pain/swell TECHNIQUE: Grayscale, color, and doppler imaging of the deep venous system of the right lower extremity was performed. COMPARISON: US POCUS EXAM from 09/06/2022 Ultrasound 05/17/2022 (left DVT at that time no DVT on the right side). FINDINGS: There is no evidence of DVT at and above the level of the right knee. In the right calf there is both acute and chronic appearing DVT evident in the proximal-mid posterior tibial veins. Also similar findings in the proximal-mid right peroneal veins in the calf. There is no extension into the ipsilateral popliteal vein nor above this level. There is also superficial thrombus evident in the distal supraspinatus shows saphenous vein of the right lower extremity with clot length of 13-14 cm. This corresponds to area of pain. IMPRESSION: 1. Positive study for DVT in the right lower extremity below the level the knee involving the proximal-mid posterior tibial and peroneal veins. Appearance is that of acute upon chronic thrombus. There is no clot extension into the popliteal vein nor DVT above the level of the knee. 2. Also positive for superficial thrombophlebitis in the distal right superficial saphenous vein of the lower leg with clot length approximately 13-14 cm. Called by myself to ER provider Quality:SDOH Health Related Social Needs: No Data to Display PFSH All Active Problems (Updated 09/22/23 @ 15:05 by TYRON Bergeron) Deep vein thrombosis of right lower extremity (Acute) Pulmonary embolism (Acute) Anxiety (Chronic) DVT prophylaxis (Acute) Intractable nausea and vomiting (Acute) Enterocolitis (Acute) Gastroesophagitis (Acute) Leukocytosis, unspecified (Acute) Intractable nausea and vomiting (Acute) Chronic anticoagulation (Chronic) On coumadin Cyclic vomiting syndrome (Acute) Panic disorder (Chronic 03/21/16) Chronic back pain greater than 3 months duration (Chronic 12/29/14) ADHD (attention deficit hyperactivity disorder), 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) B12 deficiency (Chronic) Medical History Normocytic anemia Primary hypercoagulable state Acute renal insufficiency Acute deep vein thrombosis (DVT) of left lower extremity Orbital cellulitis on left Candidiasis Iatrogenic pulmonary embolism and infarction Left lower quadrant pain (01/27/12) Thrombosis of arteries of lower extremity Preseptal cellulitis of left eye Vaginal candidiasis Hematuria Left buttock abscess Other enthesopathies, not elsewhere classified (03/21/16) Neck Asthma (11/08/12) Cyst of fallopian tube Right lower quadrant abdominal pain inflamed/ruptured fallopian tube on the right Nephrolithiasis Migraine headache Hypothyroidism GERD (gastroesophageal reflux disease) Depression Recurrent deep vein thrombosis (DVT) Chronic anticoagulation Intractable vomiting with nausea History of DVT (deep vein thrombosis) Factor V Leiden mutation Cellulitis of left leg Surgical History History of arthroscopy of knee Status post LEEP (loop electrosurgical excision procedure) of cervix Status post cholecystectomy 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) S/P appendectomy (12/24/17) Dr Veliz - Car appy and lap excision of R fallopian tube remnant THUMB RECONSTRUCTION left; in childhood Abdominal hysterectomy (~2009) Cholecystectomy Cervical Conization/LEEP LEEP 2003 [place] [facility] 2003 Bilateral salpingectomy with oophorectomy (~2008) Arthroplasty of knee (~1999) left Social History Smoking/Tobacco Use Status: Never Smoking risk assessment performed?: Yes Alcohol Intake: former Substance use type: does not use Housing: other Current gender identity: female Do you feel safe at home: Yes Do you feel safe in your relationship?: Yes Additional Social history: unable to assess alone Sign Out Sign Out Data: Sign Out Comment: Patient seen for R LE pain - has factor V Leiden, present was performed which showed extensive superficial thrombophlebitis in the distal right lower extremity with some DVTs below the level of the knee. Patient likely needs to be restarted on her Lovenox, patient is signed out with basic labs like PT PTT in order to restart anticoagulation as well as Trop and BNP to check for right heart strain. Patient was referred to care management and community connections as they have transportation issues regarding the refill of medications, obtaining transportation and has issues with RCT on getting to [place] for PCP appointment. Will likely need to see her PCP to be referred to [facility] vascular surgery, needs to phone [facility] hematology and inform them of results, likely needs refills by PCP of significantly long medication list. Patients Lovenox refilled, signed out awaiting wnl lab values with d/c likely. Last updated by Kobi Boateng PA at 09/22/23 15:35
--- NOTE | 2023-09-22 15:35 | NUR.NOTE ---
Referral to Care Management/Community Connections to assist with transportation to PCP, tertiary centers, and asisst with getting her medications that she needs. Nursing Note:
[2023-09-22 15:55] LABS: Abs Immature Grans 0.03 10^3/uL (0.0-0.06); Absolute Basophil Count 0.03 10^3/uL (0.0-0.2); Absolute Eosinophil Count 0.08 10^3/uL (0.0-0.7); Absolute Lymphocyte Count 1.46 10^3/uL (1.2-3.4); Absolute Monocyte Count 0.44 10^3/uL (0.1-0.8); Absolute Neutrophil Count 7.11 10^3/uL (1.2-6.7); Basophils % 0.3 %; Eosinophils % 0.9 %; HCT 45.4 % (36.0-46.0); HGB 15.7 g/dL (11.2-15.7); Immature Grans % 0.3 %; MCH 28.5 pg (27.0-33.0); MCHC 34.6 % (32.0-36.0); MCV 83 fL (80-95); MPV 10.7 fL (8.0-11.0); Monocytes % 4.8 %; Neutrophils % 77.7 %; Platelet Count 193 10^3/uL (130-400); RDW 13.1 % (11.7-14.6); RDW-SD 38.9 fL; WBC 9.15 10^3/uL (4.4-10.8)
--- NOTE | 2023-09-22 16:04 | ED.PROG_ITS ---
Date of service: 09/22/23 Time of Service: 16:04 Medical Decision Making Care assumed from provider (TYRON Samuel) Please see their initial HPI, PE, and documentation. Discussed patient details and case and pending workup and disposition. Patient is hemodynamically stable, and alert and oriented. At the time of signout awaiting CT abdomen pelvis rule out appendicitis. In short patient is a 43-year-old female with history of factor V Leiden and multiple past medical history. At the time of signout we are awaiting labs and most likely discharge with Lovenox after labs. ED staff unable to get blue top patient is a difficult stick and is required multiple sticks for blood draw. I did attempt ultrasound-guided blood draw which was unsuccessful. However her creatinine clearance GFR is greater than 63 BUN 12 creatinine 1.1 which is largely at patient's baseline. CBC shows no leukocytosis red blood cells 5.50 hemoglobin hematocrit within normal limits, we were unable to get a PT PTT and INR at this time. Potassium is 3.3 glucose 114 calcium 8.4. proBNP within normal limits. Patient is anxious to leave the department will give a dose of 1 mg/kg Lovenox subcu here and discharged with refill of the Lovenox. Patient given 80mg SC here in ED as this is what patient was on previously. Patient discharged from the department. She is hypertensive however she does appear upset. Instructed her to follow-up with her blood pressure with PCP. This text was generated using [employer] dictation system, please disregard any oddities of phrase or misspellings. Medical Records Medical records reviewed: Yes I reviewed the patient's medical records. Lab Data Lab results reviewed: Yes I reviewed the patient's lab results. Labs: Laboratory Tests Range/Units 09/22/23 09/22/23 15:19 15:40 WBC (4.4-10.8) 10^3/uL 9.15 RBC (3.93-5.22) 10^6/uL 5.50 H Hgb (11.2-15.7) g/dL 15.7 Hct (36.0-46.0) % 45.4 MCV (80-95) fL 83 MCH (27.0-33.0) pg 28.5 MCHC (32.0-36.0) % 34.6 RDW (11.7-14.6) % 13.1 Plt Count (130-400) 10^3/uL 193 MPV (8.0-11.0) fL 10.7 Immature Gran % % 0.3 Neutrophils % % 77.7 Lymphocytes % % 16.0 Monocytes % % 4.8 Eosinophils % % 0.9 Basophils % % 0.3 Nucleated RBC % (0.0-0.3) % 0.0 Absolute Neutrophils (1.2-6.7) 10^3/uL 7.11 H Absolute Lymphocytes (1.2-3.4) 10^3/uL 1.46 Absolute Monocytes (0.1-0.8) 10^3/uL 0.44 Absolute Eosinophils (0.0-0.7) 10^3/uL 0.08 Absolute Basophils (0.0-0.2) 10^3/uL 0.03 PT Cancelled INR Cancelled APTT Cancelled Sodium (136-145) mmol/L 142 Potassium (3.5-5.1) mmol/L 3.3 L Chloride (98-107) mmol/L 105 Carbon Dioxide (21.0-32.0) mmol/L 25.7 Anion Gap (3-11) mmol/L 11.3 H BUN (7-18) mg/dL 12 Creatinine (0.55-1.02) mg/dL 1.1 H Est GFR (CKD-EPI 2020) (mL/min/1.73m2) 63.54 Glucose (74-106) mg/dL 114 H Calcium (8.5-10.1) mg/dL 8.4 L Total Bilirubin (0.2-1.0) mg/dL 0.4 AST (15-37) U/L 8 L ALT (14-59) U/L 19 Alkaline Phosphatase (46-116) U/L 64 Troponin I (< or =60) ng/L < 50 NT-Pro-B Natriuret Pep (<300) pg/mL 129 Total Protein (6.4-8.2) g/dL 7.1 Albumin (3.4-5.0) g/dL 3.9 Quality:SDOH Health Related Social Needs: No Data to Display Sign Out Sign Out Data: Sign Out Comment: Patient seen for R LE brianne - has factor V Leiden, present was performed which showed extensive superficial thrombophlebitis in the distal right lower extremity with some DVTs below the level of the knee. Patient likely needs to be restarted on her Lovenox, patient is signed out with basic labs like PT PTT in order to restart anticoagulation as well as Trop and BNP to check for right heart strain. Patient was referred to care management and community connections as they have transportation issues regarding the refill of medications, obtaining transportation and has issues with RCT on getting to [place] for PCP appointment. Will likely need to see her PCP to be referred to [facility] vascular surgery, needs to phone [facility] hematology and inform them of results, likely needs refills by PCP of significantly long medication list. Patients Lovenox refilled, signed out awaiting wnl lab values with d/c likely. Last updated by Kobi Boateng PA at 09/22/23 15:35 Discharge Plan Disposition Patient Disposition: Home Condition: Stable Discharge Details Clinical Impression: Deep vein thrombosis of right lower extremity Primary Care Provider: Patrica Santoro ED Provider: Nguyen Jiang Home Meds and New Rx's Prescriptions: New enoxaparin 80 mg/0.8 mL syringe 80 mg subcut Q12H 30 Days Qty: 48 0RF permethrin 5 % cream 1 applic topical Q14D Qty: 60 0RF Rx Instructions: apply second treatment 14 days after first treatment if live lice remain Continued sucralfate 1 gram tablet 1 g PO AC & HS Qty: 120 2RF Citracal Plus Bone Density 1 EACH tablet 1 ea PO BID cyproheptadine 4 MG tablet 4 mg PO HS Qty: 90 triamcinolone acetonide 0.1 % cream 1 applic Topical BID PRN (Reason: eczema) Qty: 60 1RF Rx Instructions: Apply to eczema methylphenidate HCl 20 mg tablet 20 mg PO TID MDD 60 mg Qty: 84 0RF epinephrine [EpiPen 2-Nino] 0.3 mg/0.3 mL auto-injector 0.3 mg IM ONCE Qty: 1 1RF fluticasone propionate [Flovent HFA] 220 mcg/actuation HFA aerosol inhaler 2 inh Inhalation BID Qty: 3 4RF omeprazole 40 mg capsule,delayed release(DR/EC) 40 mg PO DAILY Qty: 90 4RF clotrimazole-betamethasone 1-0.05 % cream 1 applic Topical BID PRN (Reason: rash) Qty: 45 1RF Rx Instructions: Apply to skin folds albuterol sulfate [ProAir HFA] 90 mcg/actuation HFA aerosol inhaler 2 puff Inhalation Q6H PRN MDD 6 puffs Qty: 3 4RF ondansetron HCl 8 mg tablet 8 mg PO BID PRN (Reason: nausea and vomiting) Qty: 20 0RF sumatriptan succinate 6 mg/0.5 mL pen injector 6 mg subcut ONCE MDD 12mg PRN (Reason: migraine headache) Qty: 90 1RF Rx Instructions: May repeat dose once in 1 hour if headache persists clonazepam 1 mg tablet 1 mg PO TID PRN (Reason: anxiety) Qty: 90 0RF Hold Instructions: Resume on 05/31/22. Hold until further instructions by PCP) naloxone [Narcan] 4 MG spray,non-aerosol 4 mg NS DAILY PRN PRNQty: 2 0RF Rx Instructions: One spray (4mg) intranasally into one nostril. Use a new nasal spray for subsequent dose in alternate nostril if needed. May repeat once after initial dose in 2-3 minutes. polyethylene glycol 3350 [Miralax] 17 gram Powder In Packet 17 g PO DAILY PRN Zyrtec 10 mg Capsule 10 mg PO DAILY topiramate [Topamax] 200 mg tablet 400 mg PO DAILY Rx Instructions: Brand name medically necessary acidophilus-pectin, citrus 25 million cell -100 mg tablet 1 tab PO DAILY albuterol sulfate 2.5 mg /3 mL (0.083 %) Solution For Nebulization 2.5 mg INHALATION TID ascorbic acid (vitamin C) [Vitamin C] 500 mg Tablet 500 mg PO BID Qty: 60 0RF [id number] [Fioricet] 50-300-40 mg capsule 1 cap PO Q4H PRNQty: 60 0RF Rx Instructions: Take 1-2 tabs as needed for WILLETT, not to exceed 6 tabs in 24 hours cholecalciferol (vitamin D3) [Vitamin D3] 50 mcg (2,000 unit) capsule 50 mcg PO DAILY Qty: 30 0RF melatonin 3 mg Tablet 6 mg PO HS Qty: 30 0RF prochlorperazine maleate [Compazine] 10 mg tablet 10 mg PO TID PRNQty: 60 0RF promethazine 25 mg tablet 25 mg PO TID PRNQty: 60 0RF (DME) inhalational spacing device 1 EACH spacer MISCELLANEOUS levothyroxine 125 mcg tablet 125 mcg PO HS hydrocodone-acetaminophen 10-300 mg tablet 1 tab PO Q6H PRNQty: 20 0RF enoxaparin 80 mg/0.8 mL syringe 80 mg subcut Q12H Qty: 60 0RF lorazepam 1 mg tablet 1 mg sublingual TID PRNQty: 30 0RF potassium chloride 20 mEq tablet,ER particles/crystals 20 meq PO DAILY Qty: 5 0RF magnesium 250 mg tablet 250 mg PO DAILY Qty: 7 0RF prochlorperazine maleate [Compazine] 10 mg tablet 10 mg PO Q8H PRNQty: 10 0RF promethazine 25 mg tablet 25 mg PO Q6H PRNQty: 10 0RF permethrin 5 % cream 1 applic topical Q14D Qty: 60 0RF Rx Instructions: apply second treatment 14 days after first treatment if live lice remain hydroxyzine HCl 10 mg tablet 10 mg PO TID PRN (Reason: anxiety) Qty: 10 0RF Rx Instructions: You may take 1 tablet at bedtime or up to 3 times daily as needed for anxiety. It will make you sleepy. Please do not operate heavy machinery while taking this medication. diphenhydramine HCl [Benadryl Allergy] 25 mg tablet 100 mg PO HS Patient Comments: Take 4 tablet by mouth at bedtime budesonide-formoterol [Symbicort] 160-4.5 mcg/actuation HFA aerosol inhaler 1 inh INHALATION QDAY Patient Comments: INHALE TWO PUFFS BY MOUTH TWICE A DAY AND NEEDED ondansetron 4 mg tablet,disintegrating 4 mg PO Q8H PRN (Reason: nausea and vomiting) Qty: 30 0RF scopolamine base 1 mg over 3 days patch 3 day 1 patch transdermal Q3D PRNQty: 4 0RF Discharge Instructions Instructions: Permethrin (On the skin), Enoxaparin (By injection), Superficial Thrombophlebitis (ED), Deep Vein Thrombosis (ED) Additional Instructions: You were seen in the emergency department for your right lower extremity pain, there was extensive superficial clot seen in your distal right lower extremity as well as some small DVTs. You have been unable to take your subcutaneous Lovenox for some time due to social issues. I have sent a refill of Lovenox to [facility] in [place], as well as you requested permethrin for possible scabies outbreak at the former place you were staying. I have sent referrals for care management and community connections to help you navigate your upcoming appointments, it is hopeful that they can get your primary care to refill some of your medicines before you can be seen due to transportation issues. Please call your [facility] hematology practice and state that you are restarting your Lovenox due to DVT and superficial thrombophlebitis of right lower extremity. You may need a referral to [facility]'s vascular surgery clinic for your extensive superficial thrombophlebitis but the most important thing currently is to get you back on your anticoagulant. Please return to the emergency department for any severe increasing right lower extremity pain, increasing swelling of unilateral lower extremity, a chest pain, any shortness of breath, any increasing skin changes. Referrals: Care Management [Provider Group] [facility] [Outside] (Hematology Practice) Patrica Santoro [Primary Care Provider] - Discharge Data Discharge Date/Time-TO BE ENTERED AT DEPARTURE: 09/22/23 17:22
[2023-09-22 16:10] LABS: ALT 19 U/L (14-59); AST 8 U/L (15-37); Albumin 3.9 g/dL (3.4-5.0); Alkaline Phosphatase 64 U/L (46-116); Anion Gap 11.3 mmol/L (3-11); BUN 12 mg/dL (7-18); Bilirubin, Total 0.4 mg/dL (0.2-1.0); CO2 25.7 mmol/L (21.0-32.0); CREATININE 1.1 mg/dL (0.55-1.02); Calcium 8.4 mg/dL (8.5-10.1); Chloride 105 mmol/L (98-107); Estimated GFR 63.54 (mL/min/1.73m2); Glucose 114 mg/dL (74-106); Potassium 3.3 mmol/L (3.5-5.1); Sodium 142 mmol/L (136-145); Total Protein 7.1 g/dL (6.4-8.2)
[2023-09-22 16:20] LABS: NT-proBNP 129 pg/mL (<300); Troponin I < 50 ng/L (< or =60)
[2023-09-22] MEDS: Enoxaparin 80 MG/0.8 ML SYR SC (17:11)
== END 2023-09-22 17:22 | disposition home or self-care (01) ==
PROVIDERS: Physician Assistant; Emergency Provider Registered Nurse Emergency
DX: I82.401 Acute embolism and thrombosis of unspecified deep veins of right lower extremity (principal); M79.661 Pain in right lower leg; B86 Scabies; Z91.148 Patient's other noncompliance with medication regimen for other reason; Z86.718 Personal history of other venous thrombosis and embolism; Z79.01 Long term (current) use of anticoagulants; Z59.01 Sheltered homelessness
CPT/HCPCS: 00123; 36415; 80053; 96372; 99284; 83880; 84484; 85025; 85610; 85730; 93971; 99283; J1650

== ENCOUNTER 2024-04-27 09:59 | Emergency (ER) | payer MEDICARE, MEDICAID, SELFPAY ==
[2024-04-27 10:03] VITALS: BP 150/100; PULSE 88; RESP 20; TEMP 36.8; O2SAT 98
--- NOTE | 2024-04-27 10:13 | ED.GENADUL_ITS ---
Discharge Plan Disposition Patient Disposition: Home Condition: Stable Discharge Details Clinical Impression: Abscess, dental Primary Care Provider: Unknown,Unknown ED Provider: Lester Gorman Home Meds and New Rx's Prescriptions: New clindamycin HCl 150 mg capsule 450 mg PO TID 7 Days Qty: 63 0RF Continued sucralfate 1 gram tablet 1 g PO AC & HS Qty: 120 2RF Citracal Plus Bone Density 1 EACH tablet 1 ea PO BID triamcinolone acetonide 0.1 % cream 1 applic Topical BID PRN (Reason: eczema) Qty: 60 1RF Rx Instructions: Apply to eczema methylphenidate HCl 20 mg tablet 20 mg PO TID MDD 60 mg Qty: 84 0RF epinephrine [EpiPen 2-Nino] 0.3 mg/0.3 mL auto-injector 0.3 mg IM ONCE Qty: 1 1RF fluticasone propionate [Flovent HFA] 220 mcg/actuation HFA aerosol inhaler 2 inh Inhalation BID Qty: 3 4RF omeprazole 40 mg capsule,delayed release(DR/EC) 40 mg PO DAILY Qty: 90 4RF albuterol sulfate [ProAir HFA] 90 mcg/actuation HFA aerosol inhaler 2 puff Inhalation Q6H PRN MDD 6 puffs Qty: 3 4RF ondansetron HCl 8 mg tablet 8 mg PO BID PRN (Reason: nausea and vomiting) Qty: 20 0RF sumatriptan succinate 6 mg/0.5 mL pen injector 6 mg subcut ONCE MDD 12mg PRN (Reason: migraine headache) Qty: 90 1RF Rx Instructions: May repeat dose once in 1 hour if headache persists clonazepam 1 mg tablet 1 mg PO TID PRN (Reason: anxiety) Qty: 90 0RF polyethylene glycol 3350 [Miralax] 17 gram Powder In Packet 17 g PO DAILY PRN Zyrtec 10 mg Capsule 10 mg PO DAILY topiramate [Topamax] 200 mg tablet 400 mg PO DAILY Rx Instructions: Brand name medically necessary acidophilus-pectin, citrus 25 million cell -100 mg tablet 1 tab PO DAILY albuterol sulfate 2.5 mg /3 mL (0.083 %) Solution For Nebulization 2.5 mg INHALATION TID ascorbic acid (vitamin C) [Vitamin C] 500 mg Tablet 500 mg PO BID Qty: 60 0RF jlnrnfeeyb-ucmchitzwufkp-sqmx [Fioricet] 50-300-40 mg capsule 1 cap PO Q4H PRNQty: 60 0RF Rx Instructions: Take 1-2 tabs as needed for WILLETT, not to exceed 6 tabs in 24 hours cholecalciferol (vitamin D3) [Vitamin D3] 50 mcg (2,000 unit) capsule 50 mcg PO DAILY Qty: 30 0RF prochlorperazine maleate [Compazine] 10 mg tablet 10 mg PO TID PRNQty: 60 0RF promethazine 25 mg tablet 25 mg PO TID PRNQty: 60 0RF (DME) inhalational spacing device 1 EACH spacer MISCELLANEOUS levothyroxine 125 mcg tablet 125 mcg PO HS enoxaparin 80 mg/0.8 mL syringe 80 mg subcut Q12H Qty: 60 0RF lorazepam 1 mg tablet 1 mg sublingual TID PRNQty: 30 0RF potassium chloride 20 mEq tablet,ER particles/crystals 20 meq PO DAILY Qty: 5 0RF magnesium 250 mg tablet 250 mg PO DAILY Qty: 7 0RF prochlorperazine maleate [Compazine] 10 mg tablet 10 mg PO Q8H PRNQty: 10 0RF promethazine 25 mg tablet 25 mg PO Q6H PRNQty: 10 0RF diphenhydramine HCl [Benadryl Allergy] 25 mg tablet 100 mg PO HS Patient Comments: Take 4 tablet by mouth at bedtime budesonide-formoterol [Symbicort] 160-4.5 mcg/actuation HFA aerosol inhaler 1 inh INHALATION QDAY Patient Comments: INHALE TWO PUFFS BY MOUTH TWICE A DAY AND NEEDED ondansetron 4 mg tablet,disintegrating 4 mg PO Q8H PRN (Reason: nausea and vomiting) Qty: 30 0RF scopolamine base 1 mg over 3 days patch 3 day 1 patch transdermal Q3D PRNQty: 4 0RF Discharge Instructions Additional Instructions: Return to follow-up with a dentist as soon as possible. Take the antibiotic as prescribed. If you feel more ill, have severe worsening pain or high fevers return to the emergency department for reevaluation or HPI General Mode of arrival: ambulatory . Date/Time Provider Initiated Documentation: 04/27/24 10:00 . Limitations to Documentation: no limitations . Information obtained by: patient . History of Present Illness 44 year old F presents to the emergency department with the chief complaint of dental pain, described as moderate, Quality is described as aching, Patient started experiencing this day(s) (2) and it has been constant. No relieving factors improve symptom(s), No exacerbating factors reported . Patient notes denies fever/chills. Patient did receive the following treatments prior to arrival, none Related Data Home Medications ?Medication ?Instructions ?Recorded ?Confirmed calcium 300 mg-vit D3 200 1 ea PO BID 11/09/12 04/27/24 zono-xsfjewxk-hpnwmzdyk 13.5 mg tablet (Citracal Plus Bone Density Builder) triamcinolone acetonide 0.1 % 1 applic topical BID PRN eczema 09/05/19 04/27/24 topical cream #60 grams methylphenidate HCl 20 mg tablet 20 mg PO TID #84 tab-caps 10/20/19 04/27/24 diphenhydramine HCl 25 mg tablet 100 mg PO HS 12/13/19 04/27/24 (Benadryl Allergy) sucralfate 1 gram tablet 1 g PO AC & HS #120 tabs 12/30/19 04/27/24 epinephrine 0.3 mg/0.3 mL 0.3 mg (0.3 mL) IM ONCE #1 ea 02/22/20 04/27/24 injection, auto-injector (EpiPen 2-Nino) fluticasone propionate 220 2 inh inhalation BID ##3 02/22/20 04/27/24 mcg/actuation HFA aerosol inhaler (Flovent HFA) omeprazole 40 mg capsule,delayed 40 mg PO DAILY GERD #90 caps 02/22/20 04/27/24 release albuterol sulfate 90 mcg/actuation 2 puff inhalation Q6H PRN ##3 03/07/20 04/27/24 aerosol inhaler (ProAir HFA) ondansetron HCl 8 mg tablet 8 mg PO BID PRN nausea and 03/07/20 04/27/24 vomiting #20 tabs sumatriptan succinate 6 mg/0.5 mL 6 mg (0.5 mL) subcut ONCE PRN 03/07/20 04/27/24 subcutaneous pen injector migraine headache #90 SYRGS clonazepam 1 mg tablet 1 mg PO TID PRN anxiety #90 tabs 03/20/20 04/27/24 acidophilus 25 million 1 tab PO DAILY 08/16/20 04/27/24 cell-pectin, citrus 100 mg tablet cetirizine 10 mg capsule (Zyrtec) 10 mg PO DAILY 08/16/20 04/27/24 polyethylene glycol 3350 17 gram 17 g PO DAILY PRN 08/16/20 04/27/24 oral powder packet (Miralax) topiramate 200 mg tablet (Topamax) 400 mg PO DAILY 08/16/20 04/27/24 albuterol sulfate 2.5 mg/3 mL 2.5 mg inhalation TID 05/03/21 04/27/24 (0.083 %) solution for nebulization ascorbic acid (vitamin C) 500 mg 500 mg PO BID #60 tabs 05/04/21 04/27/24 tablet (Vitamin C) dvjcjxreba-fndpfbzcwqahb-trevomii 1 cap PO Q4H PRN #60 caps 05/04/21 04/27/24 50 mg-300 mg-40 mg capsule (Fioricet) cholecalciferol (vitamin D3) 50 50 mcg PO DAILY #30 caps 05/04/21 04/27/24 mcg (2,000 unit) capsule (Vitamin D3) prochlorperazine maleate 10 mg 10 mg PO TID PRN #60 tabs 05/04/21 04/27/24 tablet (Compazine) promethazine 25 mg tablet 25 mg PO TID PRN #60 tabs 05/04/21 04/27/24 budesonide-formoterol HFA 160 1 inh inhalation QDAY 01/22/22 04/27/24 mcg-4.5 mcg/actuation aerosol inhaler (Symbicort) inhalational spacing device 05/17/22 04/27/24 levothyroxine 125 mcg tablet 125 mcg PO HS 05/17/22 04/27/24 enoxaparin 80 mg/0.8 mL 80 mg (0.8 mL) subcut Q12H #60 05/19/22 04/27/24 subcutaneous syringe SYRGS lorazepam 1 mg tablet 1 mg sublingual TID PRN #30 tabs 05/19/22 04/27/24 ondansetron 4 mg disintegrating 4 mg PO Q8H PRN nausea and 07/29/22 04/27/24 tablet vomiting #30 tabs magnesium 250 mg tablet 250 mg PO DAILY #7 tabs 08/28/22 04/27/24 potassium chloride 20 mEq 20 meq PO DAILY #5 tabs 08/28/22 04/27/24 tablet,extended release(part/cryst) prochlorperazine maleate 10 mg 10 mg PO Q8H PRN #10 tabs 08/28/22 04/27/24 tablet (Compazine) promethazine 25 mg tablet 25 mg PO Q6H PRN #10 tabs 01/04/23 04/27/24 scopolamine base 1 mg over 3 days 1 patch transdermal Q3D PRN #4 ea 01/06/23 04/27/24 transdermal patch clindamycin HCl 150 mg capsule 450 mg (3 x 150 mg) PO TID 7 days 04/27/24 #63 caps Previous Rx's ?Medication ?Instructions ?Recorded triamcinolone acetonide 0.1 % 1 applic topical BID PRN eczema 09/05/19 topical cream #60 grams methylphenidate HCl 20 mg tablet 20 mg PO TID #84 tab-caps 10/20/19 sucralfate 1 gram tablet 1 g PO AC & HS #120 tabs 12/30/19 epinephrine 0.3 mg/0.3 mL 0.3 mg (0.3 mL) IM ONCE #1 ea 02/22/20 injection, auto-injector (EpiPen 2-Nino) fluticasone propionate 220 2 inh inhalation BID ##3 02/22/20 mcg/actuation HFA aerosol inhaler (Flovent HFA) omeprazole 40 mg capsule,delayed 40 mg PO DAILY GERD #90 caps 02/22/20 release albuterol sulfate 90 mcg/actuation 2 puff inhalation Q6H PRN ##3 03/07/20 aerosol inhaler (ProAir HFA) ondansetron HCl 8 mg tablet 8 mg PO BID PRN nausea and 03/07/20 vomiting #20 tabs sumatriptan succinate 6 mg/0.5 mL 6 mg (0.5 mL) subcut ONCE PRN 03/07/20 subcutaneous pen injector migraine headache #90 SYRGS clonazepam 1 mg tablet 1 mg PO TID PRN anxiety #90 tabs 03/20/20 ascorbic acid (vitamin C) 500 mg 500 mg PO BID #60 tabs 05/04/21 tablet (Vitamin C) prjgxdbtff-ympzhplfiruou-atpzpdtj 1 cap PO Q4H PRN #60 caps 05/04/21 50 mg-300 mg-40 mg capsule (Fioricet) cholecalciferol (vitamin D3) 50 50 mcg PO DAILY #30 caps 05/04/21 mcg (2,000 unit) capsule (Vitamin D3) prochlorperazine maleate 10 mg 10 mg PO TID PRN #60 tabs 05/04/21 tablet (Compazine) promethazine 25 mg tablet 25 mg PO TID PRN #60 tabs 05/04/21 enoxaparin 80 mg/0.8 mL 80 mg (0.8 mL) subcut Q12H #60 05/19/22 subcutaneous syringe SYRGS lorazepam 1 mg tablet 1 mg sublingual TID PRN #30 tabs 05/19/22 ondansetron 4 mg disintegrating 4 mg PO Q8H PRN nausea and 07/29/22 tablet vomiting #30 tabs magnesium 250 mg tablet 250 mg PO DAILY #7 tabs 08/28/22 potassium chloride 20 mEq 20 meq PO DAILY #5 tabs 08/28/22 tablet,extended release(part/cryst) prochlorperazine maleate 10 mg 10 mg PO Q8H PRN #10 tabs 08/28/22 tablet (Compazine) promethazine 25 mg tablet 25 mg PO Q6H PRN #10 tabs 01/04/23 scopolamine base 1 mg over 3 days 1 patch transdermal Q3D PRN #4 ea 01/06/23 transdermal patch clindamycin HCl 150 mg capsule 450 mg (3 x 150 mg) PO TID 7 days 04/27/24 #63 caps Allergies Allergy/AdvReac Type Severity Reaction Status Date / Time aripiprazole (From Abilify) Allergy Severe Rash, hives Verified 04/27/24 10:10 doxycycline Allergy Severe Anaphylaxsi Verified 04/27/24 10:10 s levetiracetam (From Keppra) Allergy Severe RASH/HIVES Verified 04/27/24 10:10 sulfamethoxazole Allergy Severe Hives Verified 04/27/24 10:10 venom-honey bee Allergy Severe unknown Verified 04/27/24 10:10 Penicillins Allergy Intermediate Skin Rash Verified 04/27/24 10:10 chlorhexidine Allergy Unknown unknown Verified 04/27/24 10:10 Sulfa (Sulfonamide Allergy Other (See Verified 04/27/24 10:10 Antibiotics) Comment) mold AdvReac Severe Wheezing Verified 04/27/24 10:10 oxycodone (Oxycodone) AdvReac Severe vomits Verified 04/27/24 10:10 paroxetine AdvReac Severe Irritability Verified 04/27/24 10:10 and anger dicloxacillin (Dicloxacillin) AdvReac Mild Nausea, GI Verified 04/27/24 10:10 upset gabapentin AdvReac Mild hives Verified 04/27/24 10:10 prednisone AdvReac Agitation Verified 04/27/24 10:10 trazodone AdvReac shortness Verified 04/27/24 10:10 of breath verapamil (Verapamil) AdvReac Worsening Verified 04/27/24 10:10 migraine nuts Allergy Severe Anaphylaxsi Uncoded 04/27/24 10:10 s General Stated Complaint: DentalOral RYNE: 3 Review of Systems All systems reviewed & are unremarkable except as noted in HPI and below Constitutional Constitutional: Denies chills, Denies fever(s) and Denies weakness ENT Ears, Nose, Mouth, and Throat: Denies change in voice Cardiovascular Cardiovascular: Denies chest pain Respiratory Respiratory: Denies cough Gastrointestinal Gastrointestinal: Denies abdominal pain, Denies nausea and Denies vomiting Neurologic Neurologic: Denies weakness Exam Const General: no acute distress Orientation: alert HENMT Head: normal to inspection Ears: external ears normal General nose exam: external nose normal Mouth: moist mucous membranes Teeth and gingiva: abnormal dentition Throat: posterior oropharynx normal and uvula midline Eyes General: appearance normal, both eyes and all related structures Neck Neck: normal visual inspection Resp Effort & Inspection: normal respiratory effort and able to speak in complete sentences Cardio Rate: regular rate Skin General skin exam: no rashes or lesions noted Neuro General: patient alert and patient oriented x3 Extrem General: normal to inspection Psych Mental Status: mental status grossly normal Course Vital Signs Vital signs: Vital Signs Temperature 36.8 C 04/27/24 10:03 Pulse 88 04/27/24 10:03 Respiratory Rate 20 04/27/24 10:03 Blood Pressure 150/100 H 04/27/24 10:03 Pulse Oximetry 98 04/27/24 10:03 Temperature 36.8 C 04/27/24 10:03 Temperature Source Temporal Artery Scan 04/27/24 10:03 Pulse 88 04/27/24 10:03 Respiratory Rate 20 04/27/24 10:03 Blood Pressure 150/100 H 04/27/24 10:03 Blood Pressure Position Sitting 04/27/24 10:03 Pulse Oximetry 98 04/27/24 10:03 Oxygen Delivery Method Room Air 04/27/24 10:03 Oxygen Flow Rate 0 04/27/24 10:03 Pain Level 10 04/27/24 10:03 Medical Decision Making 44-year-old female with multiple medical problems comes in with 2 to 3 days of left lower tooth pain and swelling. She states that she broke her tooth when she was eating several days ago. She denies any fevers but has had some left cheek swelling since so came here for evaluation. She does have swelling of the left lower jawline and cheek, there is no overlying erythema or fluctuance. She is able to minimally open her mouth due to pain in the tooth. She is not drooling or having stridor. There is no neck swelling or submandibular swelling. There is no pain over the hyoid or restricted neck movements. I suspect a dental abscess. No findings on exam to suggest entities such as Umm's. Given her degree of pain we will treat with IV pain medication and give a dose of IV clindamycin along with dexamethasone and check CBC and CMP and reassess. Patient stable and is able to open mouth, has normal posterior pharynx with midline uvula. She does have swelling above, I do not see a visible drainable abscess on my exam. I will have her follow-up with a dentist as soon as possible, return precautions given Differential Diagnosis Differential Diagnosis: Dental pain, dental abscess Quality:SDOH Health Related Social Needs: No Data to Display PFSH All Active Problems (Updated 04/27/24 @ 11:43 by Lester Gorman MD) Abscess, dental (Acute) Pulmonary embolism (Acute) Anxiety (Chronic) DVT prophylaxis (Acute) Intractable nausea and vomiting (Acute) Enterocolitis (Acute) Gastroesophagitis (Acute) Leukocytosis, unspecified (Acute) Intractable nausea and vomiting (Acute) Chronic anticoagulation (Chronic) On coumadin Cyclic vomiting syndrome (Acute) Panic disorder (Chronic 03/21/16) Chronic back pain greater than 3 months duration (Chronic 12/29/14) ADHD (attention deficit hyperactivity disorder), 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) B12 deficiency (Chronic) Medical History Normocytic anemia Primary hypercoagulable state Acute renal insufficiency Acute deep vein thrombosis (DVT) of left lower extremity Orbital cellulitis on left Candidiasis Iatrogenic pulmonary embolism and infarction Left lower quadrant pain (01/27/12) Thrombosis of arteries of lower extremity Preseptal cellulitis of left eye Vaginal candidiasis Hematuria Left buttock abscess Other enthesopathies, not elsewhere classified (03/21/16) Neck Asthma (11/08/12) Cyst of fallopian tube Right lower quadrant abdominal pain inflamed/ruptured fallopian tube on the right Nephrolithiasis Migraine headache Hypothyroidism GERD (gastroesophageal reflux disease) Depression Recurrent deep vein thrombosis (DVT) Chronic anticoagulation Intractable vomiting with nausea History of DVT (deep vein thrombosis) Factor V Leiden mutation Cellulitis of left leg Surgical History History of arthroscopy of knee Status post LEEP (loop electrosurgical excision procedure) of cervix Status post cholecystectomy 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
[2024-04-27 10:19] VITALS: RESP 15
[2024-04-27 10:39] LABS: Abs Immature Grans 0.04 10^3/uL (0.0-0.06); Absolute Basophil Count 0.03 10^3/uL (0.0-0.2); Absolute Eosinophil Count 0.09 10^3/uL (0.0-0.7); Absolute Lymphocyte Count 1.27 10^3/uL (1.2-3.4); Absolute Monocyte Count 0.95 10^3/uL (0.1-0.8); Absolute Neutrophil Count 8.27 10^3/uL (1.2-6.7); Basophils % 0.3 %; Eosinophils % 0.8 %; HCT 42.1 % (36.0-46.0); Immature Grans % 0.4 %; Lymphocytes % 11.9 %; MCH 27.6 pg (27.0-33.0); MCHC 33.3 % (32.0-36.0); MCV 83 fL (80-95); MPV 9.8 fL (8.0-11.0); Monocytes % 8.9 %; Neutrophils % 77.7 %; Platelet Count 242 10^3/uL (130-400); RBC 5.08 10^6/uL (3.93-5.22); RDW-SD 42.5 fL; WBC 10.65 10^3/uL (4.4-10.8)
[2024-04-27] MEDS: CLINDAMYCIN 600 MG/50 ML BAG 100 MG IVPB (10:48)
[2024-04-27] MEDS: Dexamethasone 10 MG/ML VIAL IVP (10:49)
[2024-04-27] MEDS: Ketorolac 15 MG/ML VIAL IVP (10:49)
[2024-04-27] MEDS: HYDROmorphone 2 MG/ML SYR IVP (10:49)
[2024-04-27 10:59] LABS: ALT 15 U/L (14-59); AST 8 U/L (15-37); Albumin 3.4 g/dL (3.4-5.0); Alkaline Phosphatase 73 U/L (46-116); Anion Gap 9.1 mmol/L (3-11); BUN 16 mg/dL (7-18); Bilirubin, Total 0.59 mg/dL (0.2-1.0); CO2 27.9 mmol/L (21.0-32.0); Calcium 8.9 mg/dL (8.5-10.1); Chloride 102 mmol/L (98-107); Glucose 121 mg/dL (74-106); Potassium 3.6 mmol/L (3.5-5.1); Sodium 139 mmol/L (136-145); Total Protein 7.6 g/dL (6.4-8.2)
[2024-04-27 11:27] VITALS: BP 158/81; PULSE 73; RESP 16; O2SAT 97
[2024-04-27] MEDS: MORPHine IR 15 MG TAB, 4 TABS/BTL PO (12:36)
[2024-04-27 12:38] VITALS: BP 114/61; PULSE 69; RESP 16; TEMP 36.2; O2SAT 98
== END 2024-04-27 12:39 | disposition home or self-care (01) ==
PROVIDERS: Emergency Provider Emergency Medicine
DX: K08.89 Other specified disorders of teeth and supporting structures (principal); K04.7 Periapical abscess without sinus; D68.51 Activated protein C resistance; Z86.73 Personal history of transient ischemic attack (TIA), and cerebral infarction without residual deficits; Z86.718 Personal history of other venous thrombosis and embolism; Z86.711 Personal history of pulmonary embolism; Z79.01 Long term (current) use of anticoagulants
CPT/HCPCS: 36415; 80053; 96365; 96375; 99284; 85025; J0737; J1100; J1171; J1885

== ENCOUNTER 2024-10-14 01:59 | Inpatient (IN) | payer MEDICARE, MEDICAID, SELFPAY ==
[2024-10-14] VITALS (16 sets, daily range): BP systolic 101–134; BP diastolic 52–90; PULSE 58–79; RESP 18–20; TEMP 36.5–38.9; O2SAT 99–100
--- NOTE | 2024-10-14 02:22 | W.ED.GENAD ---
Discharge Plan Disposition Patient Disposition: Admit to [facility] Condition: Serious Discharge Details Clinical Impression: Cellulitis, Vomiting Primary Care Provider: Unknown,Unknown ED Provider: Camryn Rsus Home Meds and New Rx's Prescriptions: No Action sucralfate 1 gram tablet 1 g PO AC & HS Qty: 120 2RF Citracal Plus Bone Density 1 EACH tablet 1 ea PO BID triamcinolone acetonide 0.1 % cream 1 applic Topical BID PRN (Reason: eczema) Qty: 60 1RF Rx Instructions: Apply to eczema methylphenidate HCl 20 mg tablet 20 mg PO TID MDD 60 mg Qty: 84 0RF epinephrine [EpiPen 2-Nino] 0.3 mg/0.3 mL auto-injector 0.3 mg IM ONCE Qty: 1 1RF fluticasone propionate [Flovent HFA] 220 mcg/actuation HFA aerosol inhaler 2 inh Inhalation BID Qty: 3 4RF omeprazole 40 mg capsule,delayed release(DR/EC) 40 mg PO DAILY Qty: 90 4RF albuterol sulfate [ProAir HFA] 90 mcg/actuation HFA aerosol inhaler 2 puff Inhalation Q6H PRN MDD 6 puffs Qty: 3 4RF ondansetron HCl 8 mg tablet 8 mg PO BID PRN (Reason: nausea and vomiting) Qty: 20 0RF sumatriptan succinate 6 mg/0.5 mL pen injector 6 mg subcut ONCE MDD 12mg PRN (Reason: migraine headache) Qty: 90 1RF Rx Instructions: May repeat dose once in 1 hour if headache persists clonazepam 1 mg tablet 1 mg PO TID PRN (Reason: anxiety) Qty: 90 0RF polyethylene glycol 3350 [Miralax] 17 gram Powder In Packet 17 g PO DAILY PRN Zyrtec 10 mg Capsule 10 mg PO DAILY topiramate [Topamax] 200 mg tablet 400 mg PO DAILY Rx Instructions: Brand name medically necessary acidophilus-pectin, citrus 25 million cell -100 mg tablet 1 tab PO DAILY albuterol sulfate 2.5 mg /3 mL (0.083 %) Solution For Nebulization 2.5 mg INHALATION TID ascorbic acid (vitamin C) [Vitamin C] 500 mg Tablet 500 mg PO BID Qty: 60 0RF glyartazew-evxgdxyahpflh-qxay [Fioricet] 50-300-40 mg capsule 1 cap PO Q4H PRNQty: 60 0RF Rx Instructions: Take 1-2 tabs as needed for WILLETT, not to exceed 6 tabs in 24 hours cholecalciferol (vitamin D3) [Vitamin D3] 50 mcg (2,000 unit) capsule 50 mcg PO DAILY Qty: 30 0RF prochlorperazine maleate [Compazine] 10 mg tablet 10 mg PO TID PRNQty: 60 0RF promethazine 25 mg tablet 25 mg PO TID PRNQty: 60 0RF (DME) inhalational spacing device 1 EACH spacer MISCELLANEOUS levothyroxine 125 mcg tablet 125 mcg PO HS enoxaparin 80 mg/0.8 mL syringe 80 mg subcut Q12H Qty: 60 0RF lorazepam 1 mg tablet 1 mg sublingual TID PRNQty: 30 0RF potassium chloride 20 mEq tablet,ER particles/crystals 20 meq PO DAILY Qty: 5 0RF magnesium 250 mg tablet 250 mg PO DAILY Qty: 7 0RF prochlorperazine maleate [Compazine] 10 mg tablet 10 mg PO Q8H PRNQty: 10 0RF promethazine 25 mg tablet 25 mg PO Q6H PRNQty: 10 0RF diphenhydramine HCl [Benadryl Allergy] 25 mg tablet 100 mg PO HS Patient Comments: Take 4 tablet by mouth at bedtime budesonide-formoterol [Symbicort] 160-4.5 mcg/actuation HFA aerosol inhaler 1 inh INHALATION QDAY Patient Comments: INHALE TWO PUFFS BY MOUTH TWICE A DAY AND NEEDED ondansetron 4 mg tablet,disintegrating 4 mg PO Q8H PRN (Reason: nausea and vomiting) Qty: 30 0RF scopolamine base 1 mg over 3 days patch 3 day 1 patch transdermal Q3D PRNQty: 4 0RF HPI General Mode of arrival: ambulatory. Date/Time Provider Initiated Documentation: 10/14/24 02:01. Limitations to Documentation: no limitations. Information obtained by: patient and family. HPI Narrative: 44yo F with hx PE & DVT on lovenox, hypothyroid, cyclic vomiting, presenting for painful skin lesion and vomiting. 4 days ago first noted a bump on lower left back (believed to be a spider bite; did not see a spider). Since then has become progressively more red, swollen, and painful especially over the last 24 hours. For the past 2 days has been vomiting frequently, unable to keep anything down; today dry heaving without bringing anything up. Fevers at home. Feels generally unwell. No rash elsewhere, abdominal pain, dysuria, hematuria, difficultly breathing, or other concerns. Reports frequent hospital admissions in the past when she has required antibiotics as she is often unable to tolerate them orally; has also been on outpatient IV antibiotic therapy when necessary. Related Data Home Medications ?Medication ?Instructions ?Recorded ?Confirmed calcium 300 mg-vit D3 200 1 ea PO BID 11/09/12 10/14/24 fwkc-duhsukkh-jsfulasbe 13.5 mg tablet (Citracal Plus Bone Density Builder) triamcinolone acetonide 0.1 % 1 applic topical BID PRN eczema 09/05/19 10/14/24 topical cream #60 grams methylphenidate HCl 20 mg tablet 20 mg PO TID #84 tab-caps 10/20/19 10/14/24 diphenhydramine HCl 25 mg tablet 100 mg PO HS 12/13/19 10/14/24 (Benadryl Allergy) sucralfate 1 gram tablet 1 g PO AC & HS #120 tabs 12/30/19 10/14/24 epinephrine 0.3 mg/0.3 mL 0.3 mg (0.3 mL) IM ONCE #1 ea 02/22/20 10/14/24 injection, auto-injector (EpiPen 2-Nino) fluticasone propionate 220 2 inh inhalation BID ##3 02/22/20 10/14/24 mcg/actuation HFA aerosol inhaler (Flovent HFA) omeprazole 40 mg capsule,delayed 40 mg PO DAILY GERD #90 caps 02/22/20 10/14/24 release albuterol sulfate 90 mcg/actuation 2 puff inhalation Q6H PRN ##3 03/07/20 10/14/24 aerosol inhaler (ProAir HFA) ondansetron HCl 8 mg tablet 8 mg PO BID PRN nausea and 03/07/20 10/14/24 vomiting #20 tabs sumatriptan succinate 6 mg/0.5 mL 6 mg (0.5 mL) subcut ONCE PRN 03/07/20 10/14/24 subcutaneous pen injector migraine headache #90 SYRGS clonazepam 1 mg tablet 1 mg PO TID PRN anxiety #90 tabs 03/20/20 10/14/24 acidophilus 25 million 1 tab PO DAILY 08/16/20 10/14/24 cell-pectin, citrus 100 mg tablet cetirizine 10 mg capsule (Zyrtec) 10 mg PO DAILY 08/16/20 10/14/24 polyethylene glycol 3350 17 gram 17 g PO DAILY PRN 08/16/20 10/14/24 oral powder packet (Miralax) topiramate 200 mg tablet (Topamax) 400 mg PO DAILY 08/16/20 10/14/24 albuterol sulfate 2.5 mg/3 mL 2.5 mg inhalation TID 05/03/21 04/27/24 (0.083 %) solution for nebulization ascorbic acid (vitamin C) 500 mg 500 mg PO BID #60 tabs 05/04/21 10/14/24 tablet (Vitamin C) ehwyokaitj-njthqiabqmehm-ezunwyis 1 cap PO Q4H PRN #60 caps 05/04/21 10/14/24 50 mg-300 mg-40 mg capsule (Fioricet) cholecalciferol (vitamin D3) 50 50 mcg PO DAILY #30 caps 05/04/21 10/14/24 mcg (2,000 unit) capsule (Vitamin D3) prochlorperazine maleate 10 mg 10 mg PO TID PRN #60 tabs 05/04/21 10/14/24 tablet (Compazine) promethazine 25 mg tablet 25 mg PO TID PRN #60 tabs 05/04/21 10/14/24 budesonide-formoterol HFA 160 1 inh inhalation QDAY 01/22/22 10/14/24 mcg-4.5 mcg/actuation aerosol inhaler (Symbicort) inhalational spacing device 05/17/22 10/14/24 levothyroxine 125 mcg tablet 125 mcg PO HS 05/17/22 10/14/24 enoxaparin 80 mg/0.8 mL 80 mg (0.8 mL) subcut Q12H #60 05/19/22 10/14/24 subcutaneous syringe SYRGS lorazepam 1 mg tablet 1 mg sublingual TID PRN #30 tabs 05/19/22 10/14/24 ondansetron 4 mg disintegrating 4 mg PO Q8H PRN nausea and 07/29/22 10/14/24 tablet vomiting #30 tabs magnesium 250 mg tablet 250 mg PO DAILY #7 tabs 08/28/22 10/14/24 potassium chloride 20 mEq 20 meq PO DAILY #5 tabs 08/28/22 10/14/24 tablet,extended release(part/cryst) prochlorperazine maleate 10 mg 10 mg PO Q8H PRN #10 tabs 08/28/22 10/14/24 tablet (Compazine) promethazine 25 mg tablet 25 mg PO Q6H PRN #10 tabs 01/04/23 10/14/24 scopolamine base 1 mg over 3 days 1 patch transdermal Q3D PRN #4 ea 01/06/23 10/14/24 transdermal patch Previous Rx's ?Medication ?Instructions ?Recorded triamcinolone acetonide 0.1 % 1 applic topical BID PRN eczema 09/05/19 topical cream #60 grams methylphenidate HCl 20 mg tablet 20 mg PO TID #84 tab-caps 10/20/19 sucralfate 1 gram tablet 1 g PO AC & HS #120 tabs 12/30/19 epinephrine 0.3 mg/0.3 mL 0.3 mg (0.3 mL) IM ONCE #1 ea 02/22/20 injection, auto-injector (EpiPen 2-Nino) fluticasone propionate 220 2 inh inhalation BID ##3 02/22/20 mcg/actuation HFA aerosol inhaler (Flovent HFA) omeprazole 40 mg capsule,delayed 40 mg PO DAILY GERD #90 caps 02/22/20 release albuterol sulfate 90 mcg/actuation 2 puff inhalation Q6H PRN ##3 03/07/20 aerosol inhaler (ProAir HFA) ondansetron HCl 8 mg tablet 8 mg PO BID PRN nausea and 03/07/20 vomiting #20 tabs sumatriptan succinate 6 mg/0.5 mL 6 mg (0.5 mL) subcut ONCE PRN 03/07/20 subcutaneous pen injector migraine headache #90 SYRGS clonazepam 1 mg tablet 1 mg PO TID PRN anxiety #90 tabs 03/20/20 ascorbic acid (vitamin C) 500 mg 500 mg PO BID #60 tabs 05/04/21 tablet (Vitamin C) jmhgdrclib-jvopxtuirobxt-cgyypsoi 1 cap PO Q4H PRN #60 caps 05/04/21 50 mg-300 mg-40 mg capsule (Fioricet) cholecalciferol (vitamin D3) 50 50 mcg PO DAILY #30 caps 05/04/21 mcg (2,000 unit) capsule (Vitamin D3) prochlorperazine maleate 10 mg 10 mg PO TID PRN #60 tabs 05/04/21 tablet (Compazine) promethazine 25 mg tablet 25 mg PO TID PRN #60 tabs 05/04/21 enoxaparin 80 mg/0.8 mL 80 mg (0.8 mL) subcut Q12H #60 05/19/22 subcutaneous syringe SYRGS lorazepam 1 mg tablet 1 mg sublingual TID PRN #30 tabs 05/19/22 ondansetron 4 mg disintegrating 4 mg PO Q8H PRN nausea and 07/29/22 tablet vomiting #30 tabs magnesium 250 mg tablet 250 mg PO DAILY #7 tabs 08/28/22 potassium chloride 20 mEq 20 meq PO DAILY #5 tabs 08/28/22 tablet,extended release(part/cryst) prochlorperazine maleate 10 mg 10 mg PO Q8H PRN #10 tabs 08/28/22 tablet (Compazine) promethazine 25 mg tablet 25 mg PO Q6H PRN #10 tabs 01/04/23 scopolamine base 1 mg over 3 days 1 patch transdermal Q3D PRN #4 ea 01/06/23 transdermal patch Allergies Allergy/AdvReac Type Severity Reaction Status Date / Time aripiprazole (From Abilify) Allergy Severe Rash, hives Verified 10/14/24 02:11 doxycycline Allergy Severe Anaphylaxsi Verified 10/14/24 02:11 [facility]ergy Severe RASH/HIVES Verified 10/14/24 02:11 sulfamethoxazole Allergy Severe Hives Verified 10/14/24 02:11 venom-honey bee Allergy Severe unknown Verified 10/14/24 02:11 Penicillins Allergy Intermediate Skin Rash Verified 10/14/24 02:11 chlorhexidine Allergy Unknown unknown Verified 10/14/24 02:11 Sulfa (Sulfonamide Allergy Other (See Verified 10/14/24 02:11 Antibiotics) Comment) mold AdvReac Severe Wheezing Verified 10/14/24 02:11 oxycodone (Oxycodone) AdvReac Severe vomits Verified 10/14/24 02:11 paroxetine AdvReac Severe Irritability Verified 10/14/24 02:11 and anger dicloxacillin (Dicloxacillin) AdvReac Mild Nausea, GI Verified 10/14/24 02:11 upset gabapentin AdvReac Mild hives Verified 10/14/24 02:11 prednisone AdvReac Agitation Verified 10/14/24 02:11 trazodone AdvReac shortness Verified 10/14/24 02:11 of breath verapamil (Verapamil) AdvReac Worsening Verified 10/14/24 02:11 migraine nuts Allergy Severe Anaphylaxsi Uncoded 10/14/24 02:11 s General Stated Complaint: InsectBite RYNE: 3 Review of Systems Narrative: see HPI Exam Narrative Exam Narrative: General: Alert, appears unwell Head: Normocephalic, atraumatic Neck: Trachea midline, ?Neck supple. ENT: ?MMM.? Cardiac: ?RRR, no murmurs appreciated Resp: No respiratory distress. CTAB. Abd: ?Soft, non-distended, nontender Extremities: ?No deformities.? No peripheral edema. Neurologic: GCS 15. ? Moves all extremities freely against gravity Skin: Erythema, tenderness, and swelling to left low lumbar region, with punctate central lesion. No drainage, no necrosis. Course Vital Signs Vital signs: Vital Signs Temperature 36.6 C 10/14/24 02:04 Pulse 73 10/14/24 02:04 Respiratory Rate 20 10/14/24 02:04 Blood Pressure 134/80 10/14/24 02:04 Pulse Oximetry 100 10/14/24 02:04 Temperature 36.6 C 10/14/24 02:04 Pulse 73 10/14/24 02:04 Respiratory Rate 20 10/14/24 02:04 Blood Pressure 134/80 10/14/24 02:04 Blood Pressure Position Sitting 10/14/24 02:04 Pulse Oximetry 100 10/14/24 02:04 Oxygen Delivery Method Room Air 10/14/24 02:04 Oxygen Flow Rate 0 10/14/24 02:04 Procedure Abscess Drainage Provider that performed the procedure: Camryn Russ Medical Decision Making 44yo F with hx PE & DVT on lovenox, hypothyroid, cyclic vomiting, presenting for painful skin lesion and vomiting. Unable to keep down fluids at home and feels generally unwell. Reports frequent hospital admissions in the past when she has required antibiotics as she is often unable to tolerate them orally; has also been on outpatient IV antibiotic therapy when necessary. Multiple abx allergies and pain medication allergy/intolerances. Vital signs reassuring, afebrile here though pt reports fever at home. Large are of erythema, swelling, and tenderness to left low lumbar; no drainage. Very painful. Suspect abscess; will give Zofran, tylenol, tramadol, EMLA for symptoms and will give dose of IV clindamycin while waiting results of workup and allow time for pain medication to take effect prior to getting bedside US. IVF started. Not overtly septic. -Labs reviewed as below, CBC with leukocytosis to 16 consistent with infection, CMP with hypokalemia to 3.0 in the setting of vomiting (will try oral replacement). Blood cultures sent. -EKG SR, appropriate intervals, no sequalea of severe hypokalemia. -POCUS without drainable fluid collection evident. Able to keep down potassium however subsequently PO challenged with small volume PO fluids and vomited. Given drroperidol and PO challenged again, remains unable to tolerate fluids. Discussed with [facility] hospitalist and accepted to medicine service for further workup and management. Awaiting transfer to the floor. Medical Records Medical records narrative: 10/14/24 03:15 Blood Blood Culture - Pending 10/14/24 02:14 Buttock - Right Wound Culture - Pending 10/14/24 02:14 Buttock - Right Gram Stain - Final 10/14/24 02:36 Blood Blood Culture - Pending Laboratory Tests Range/Units 10/14/24 02:36 WBC (4.4-10.8) 10^3/uL 16.27 H RBC (3.93-5.22) 10^6/uL 5.15 Hgb (11.2-15.7) g/dL 14.3 Hct (36.0-46.0) % 42.6 MCV (80-95) fL 83 MCH (27.0-33.0) pg 27.8 MCHC (32.0-36.0) % 33.6 RDW (11.7-14.6) % 13.5 Plt Count (130-400) 10^3/uL 269 MPV (8.0-11.0) fL 10.8 Immature Gran % % 0.3 Neutrophils % % 80.7 Lymphocytes % % 11.4 Monocytes % % 6.0 Eosinophils % % 1.2 Basophils % % 0.4 Nucleated RBC % (0.0-0.3) % 0.0 Absolute Neutrophils (1.2-6.7) 10^3/uL 13.13 H Absolute Lymphocytes (1.2-3.4) 10^3/uL 1.85 Absolute Monocytes (0.1-0.8) 10^3/uL 0.98 H Absolute Eosinophils (0.0-0.7) 10^3/uL 0.20 Absolute Basophils (0.0-0.2) 10^3/uL 0.07 VBG Lactate (<or=2.0) mmol/L 0.9 Sodium (136-145) mmol/L 139 Potassium (3.5-5.1) mmol/L 3.0 L Chloride (98-107) mmol/L 98 Carbon Dioxide (21.0-32.0) mmol/L 27.2 Anion Gap (3-11) mmol/L 13.8 H BUN (7-18) mg/dL 19 H Creatinine (0.55-1.02) mg/dL 1.0 Est GFR (CKD-EPI 2020) (mL/min/1.73m2) 70.80 Glucose (74-106) mg/dL 98 Calcium (8.5-10.1) mg/dL 9.0 Total Bilirubin (0.2-1.0) mg/dL 0.9 AST (15-37) U/L 8 L ALT (14-59) U/L 29 Alkaline Phosphatase (46-116) U/L 95 Total Protein (6.4-8.2) g/dL 8.4 H Albumin (3.4-5.0) g/dL 4.0 Lab Data Lab results reviewed: Yes I reviewed the patient's lab results. Labs: 10/14/24 03:15 Blood Blood Culture - Pending 10/14/24 02:14 Buttock - Right Wound Culture - Pending 10/14/24 02:14 Buttock - Right Gram Stain - Final 10/14/24 02:36 Blood Blood Culture - Pending Laboratory Tests Range/Units 10/14/24 02:36 WBC (4.4-10.8) 10^3/uL 16.27 H RBC (3.93-5.22) 10^6/uL 5.15 Hgb (11.2-15.7) g/dL 14.3 Hct (36.0-46.0) % 42.6 MCV (80-95) fL 83 MCH (27.0-33.0) pg 27.8 MCHC (32.0-36.0) % 33.6 RDW (11.7-14.6) % 13.5 Plt Count (130-400) 10^3/uL 269 MPV (8.0-11.0) fL 10.8 Immature Gran % % 0.3 Neutrophils % % 80.7 Lymphocytes % % 11.4 Monocytes % % 6.0 Eosinophils % % 1.2 Basophils % % 0.4 Nucleated RBC % (0.0-0.3) % 0.0 Absolute Neutrophils (1.2-6.7) 10^3/uL 13.13 H Absolute Lymphocytes (1.2-3.4) 10^3/uL 1.85 Absolute Monocytes (0.1-0.8) 10^3/uL 0.98 H Absolute Eosinophils (0.0-0.7) 10^3/uL 0.20 Absolute Basophils (0.0-0.2) 10^3/uL 0.07 VBG Lactate (<or=2.0) mmol/L 0.9 Sodium (136-145) mmol/L 139 Potassium (3.5-5.1) mmol/L 3.0 L Chloride (98-107) mmol/L 98 Carbon Dioxide (21.0-32.0) mmol/L 27.2 Anion Gap (3-11) mmol/L 13.8 H BUN (7-18) mg/dL 19 H Creatinine (0.55-1.02) mg/dL 1.0 Est GFR (CKD-EPI 2020) (mL/min/1.73m2) 70.80 Glucose (74-106) mg/dL 98 Calcium (8.5-10.1) mg/dL 9.0 Total Bilirubin (0.2-1.0) mg/dL 0.9 AST (15-37) U/L 8 L ALT (14-59) U/L 29 Alkaline Phosphatase (46-116) U/L 95 Total Protein (6.4-8.2) g/dL 8.4 H Albumin (3.4-5.0) g/dL 4.0 PFSH All Active Problems (Updated 10/14/24 @ 06:18 by Camryn Russ MD) Vomiting (Acute) Cellulitis (Acute) Cellulitis of back (Acute) Hypokalemia (Acute) Anxiety (Chronic) Gastroesophagitis (Acute) Leukocytosis, unspecified (Acute) Intractable nausea and vomiting (Acute) Cyclic vomiting syndrome (Acute) Panic disorder (Chronic 03/21/16) Chronic back pain greater than 3 months duration (Chronic 12/29/14) ADHD (attention deficit hyperactivity disorder), 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) B12 deficiency (Chronic) Medical History (Updated 10/14/24 @ 06:18 by Camryn Russ MD) Pulmonary embolism Normocytic anemia Primary hypercoagulable state Acute renal insufficiency Orbital cellulitis on left Candidiasis Left lower quadrant pain (01/27/12) Thrombosis of arteries of lower extremity Preseptal cellulitis of left eye Vaginal candidiasis Hematuria Left buttock abscess Other enthesopathies, not elsewhere classified (03/21/16) Neck Asthma (11/08/12) Cyst of fallopian tube Right lower quadrant abdominal pain inflamed/ruptured fallopian tube on the right Nephrolithiasis Migraine headache Hypothyroidism GERD (gastroesophageal reflux disease) Depression Recurrent deep vein thrombosis (DVT) Chronic anticoagulation Intractable vomiting with nausea Factor V Leiden mutation Cellulitis of left leg Surgical History History of arthroscopy of knee Status post LEEP (loop electrosurgical excision procedure) of cervix Status post cholecystectomy 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) S/P appendectomy (12/24/17) Dr Veliz - Car [place] and car excision of R fallopian tube remnant THUMB RECONSTRUCTION left; in childhood Abdominal hysterectomy (~2009) Cholecystectomy Cervical Conization/LEEP LEEP 2003 CONE BX 2003 Bilateral salpingectomy with oophorectomy (~2008) Arthroplasty of knee (~1999) left Social History Smoking/Tobacco Use Status: Never Smoking risk assessment performed?: Yes Alcohol Intake: former Substance use type: does not use Housing: other Current gender identity: female Do you feel safe at home: Yes Do you feel safe in your relationship?: Yes POCUS Exam (ED) Limited Soft Tissue Exam DATE OF EXAM: 10/14/24 PROVIDER THAT PERFORMED THE STUDY: Camryn Russ LOCATION OF EXAM: Lower back/left side REASON FOR EXAM: Redness VISUALIZED STRUCTURES: Muscle, Skin and Subcutaneous tissue PERTINENT FINDINGS/IMPRESSION: Cellulitis left low lumbar; no drainable fluid collection evident . Exam Complete
[2024-10-14 02:42] LABS: Abs Immature Grans 0.05 10^3/uL (0.0-0.06); Absolute Basophil Count 0.07 10^3/uL (0.0-0.2); Absolute Neutrophil Count 13.13 10^3/uL (1.2-6.7); Basophils % 0.4 %; Eosinophils % 1.2 %; HCT 42.6 % (36.0-46.0); HGB 14.3 g/dL (11.2-15.7); Immature Grans % 0.3 %; Lymphocytes % 11.4 %; MCH 27.8 pg (27.0-33.0); MCHC 33.6 % (32.0-36.0); MCV 83 fL (80-95); MPV 10.8 fL (8.0-11.0); Neutrophils % 80.7 %; Platelet Count 269 10^3/uL (130-400); RBC 5.15 10^6/uL (3.93-5.22); RDW 13.5 % (11.7-14.6); RDW-SD 39.8 fL; WBC 16.27 10^3/uL (4.4-10.8)
[2024-10-14 02:45] LABS: Absolute Lymphocyte Count 1.85 10^3/uL (1.2-3.4); Absolute Monocyte Count 0.98 10^3/uL (0.1-0.8); Lactate 0.9 mmol/L (<or=2.0)
[2024-10-14] MEDS: Lidocaine 2% Multi-Dose 50 ML VIAL 10 ML IJ (02:52)
[2024-10-14] MEDS: traMADol 50 MG TAB PO (02:52)
[2024-10-14] MEDS: Ondansetron 4 MG/2 ML VIAL IVP (02:52)
[2024-10-14] MEDS: ACETAMINOPHEN 1,000 MG/100 ML BAG 400 MG IVPB (02:52)
[2024-10-14] MEDS: CLINDAMYCIN 600 MG/50 ML BAG 100 MG IVPB (02:54)
--- NOTE | 2024-10-14 03:00 | RT.EKG_ITS ---
APPROVED REPORT Exam: Resting ECG Reason for Exam: bebo Patient Location: E HR:65 bpm ECG Measurements Heart Rate 65 AXIS MI 167 P 76 QRSd 83 QRS 15 QT 429 T 51 QTc 447 Conclusion Sinus rhythm...normal P axis, V-rate 60- [address] segment or T wave abnormalities to suggest occlusive MS
[2024-10-14 03:02] LABS: ALT 29 U/L (14-59); AST 8 U/L (15-37); Alkaline Phosphatase 95 U/L (46-116); Anion Gap 13.8 mmol/L (3-11); BUN 19 mg/dL (7-18); Bilirubin, Total 0.9 mg/dL (0.2-1.0); CO2 27.2 mmol/L (21.0-32.0); Chloride 98 mmol/L (98-107); Glucose 98 mg/dL (74-106); Sodium 139 mmol/L (136-145); Total Protein 8.4 g/dL (6.4-8.2)
[2024-10-14] MEDS: Potassium Chloride 10 MEQ CAPCR 40 MEQ PO (03:18)
[2024-10-14] MEDS: Lidocaine/Prilocaine Cream 5 GM TUBE TP (03:19)
[2024-10-14] MEDS: Potassium Chloride Liquid 20 MEQ PKT 40 MEQ PO (03:48)
[2024-10-14] MEDS: Normal Saline 1,000 ML 150 ML IV (03:48)
[2024-10-14] MEDS: Droperidol 5 MG/2 ML VIAL 1.25 MG IVP (04:06)
[2024-10-14 05:23] LABS: Lab Add On Test DONE
--- NOTE | 2024-10-14 05:28 | W.PM.HP.N ---
Date of service: 10/14/24 Time of Service: 05:28 Assessment and Plan Assessment and plan (1) Cellulitis of back: Status: Acute Assessment and plan: With abscess formation, though per ED POCUS nothing to drain With this abscess and poor ability to tolerate oral medication with cyclic vomiting, I agree with admission Consult surgery as I do think this will need to be drained, possible CT to guide? h/o MRSA from periorbital abscess and buttocks abscesses in 2019, Started on clindamycin in the ED but I will treat with vancomycin for now as this more reliably covers MRSA. (2) Primary hypercoagulable state: Assessment and plan: With recurrent DVTs/PEs She is on chronic therapeutic enoxaparin. Has had weight loss since this started, will dose reduce to 1mg/kg BID (3) Cyclic vomiting syndrome: Status: Acute Assessment and plan: Long history on chronic antiemetic use. Will use prn ondansatron and compazine. She has h/o cannabis use, but denies currently. UDS ordered as THC and cocaine on previous admission. She also has subcut triptan (4) Migraine headache: Assessment and plan: continue topiramate, subcut triptan prn (5) Asthma: Assessment and plan: Not currently active, continue ICS and albuterol prn. Per PCP notes she has COPD, on LAMA. Clarify meds. She denies current smoking. (6) Hypothyroidism: Assessment and plan: continue levothyroxine (7) Hypokalemia: Status: Acute Assessment and plan: Vomited after oral potassium in ED. Give I liter of D5NS+40K today, follow. Mg okay. (8) GERD (gastroesophageal reflux disease): Assessment and plan: PPI, IV for now. (9) ADHD (attention deficit hyperactivity disorder), inattentive type: Status: Chronic Assessment and plan: holding methylfenidate with GI upset, need to clarify she is taking this regularly. History of Present Illness History of Present Illness Chief Complaint: skin infection Narrative: 44-year-old female patient with multiple comorbidities including recurrent venous thromboembolism in the setting of Factor V Leiden heterogeneity and elevated Factor VII, hypothyroidism, chronic pain, depression, ADHD, migraines, cyclic vomiting syndrome, multiple antibiotic allergies, and recurrent skin infection with h/o MRSA who presented with 3 days of progressive pain and swelling in left lower back/buttocks. She states it is a spider bite, has had several before (referring to documented staph infections). Swellign and pain getting worse. She has had chills for the last two days. Has chronic nausea/vomiting, worse since she has been sick. In ED, POCUS done and no abscess to drain. She was given oral potassium and vomited. She has had difficulty tolerating multiple oral antibiotics in the past. She has two documented MRSA abscesses in 2019, non documented since. Son has some mild infections that are healing on his arms, no other contacts with similar. Review of Systems All systems reviewed & are unremarkable except as noted in HPI and below Constitutional Constitutional: Denies headache(s) and Reports weight loss (20kg+ weight loss documented since 04/2022) ENT Ears, Nose, Mouth, and Throat: Denies headache(s) Neurologic Neurologic: Denies headache(s) PFSH All Active Problems (Updated 10/14/24 @ 06:18 by Camryn Russ MD) Vomiting (Acute) Cellulitis (Acute) Hypokalemia (Acute) Cellulitis of back (Acute) Anxiety (Chronic) Gastroesophagitis (Acute) Leukocytosis, unspecified (Acute) Intractable nausea and vomiting (Acute) Cyclic vomiting syndrome (Acute) Panic disorder (Chronic 03/21/16) Chronic back pain greater than 3 months duration (Chronic 12/29/14) ADHD (attention deficit hyperactivity disorder), 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) B12 deficiency (Chronic) Cannabis abuse with cannabis-induced disorder (Chronic) Medical History (Updated 10/14/24 @ 06:18 by Camryn Russ MD) Pulmonary embolism Normocytic anemia Primary hypercoagulable state Acute renal insufficiency Orbital cellulitis on left Candidiasis Left lower quadrant pain (01/27/12) Thrombosis of arteries of lower extremity Preseptal cellulitis of left eye Vaginal candidiasis Hematuria Left buttock abscess Other enthesopathies, not elsewhere classified (03/21/16) Neck Asthma (11/08/12) Cyst of fallopian tube Right lower quadrant abdominal pain inflamed/ruptured fallopian tube on the right Nephrolithiasis Migraine headache Hypothyroidism GERD (gastroesophageal reflux disease) Depression Recurrent deep vein thrombosis (DVT) Chronic anticoagulation Intractable vomiting with nausea Factor V Leiden mutation Cellulitis of left leg Surgical History History of arthroscopy of knee Status post LEEP (loop electrosurgical excision procedure) of cervix Status post cholecystectomy 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) S/P appendectomy (12/24/17) Dr Veliz - Lap appy and lap excision of R fallopian tube remnant THUMB RECONSTRUCTION left; in childhood Abdominal hysterectomy (~2009) Cholecystectomy Cervical Conization/LEEP LEEP 2002 CONE BX 2003 Bilateral salpingectomy with oophorectomy (~2008) Arthroplasty of knee (~1999) left Social History (Updated 10/14/24 @ 07:11 by Jonny Ellison) Smoking/Tobacco Use Status: Never Smoking risk assessment performed?: Yes Alcohol Intake: former Substance use type: does not use Housing: other Current gender identity: female Do you feel safe at home: Yes Do you feel safe in your relationship?: Yes Additional Social history: Lives in [facility]. Son Braulio lives close. Meds Allergies and Home Medications Allergies Allergy/AdvReac Type Severity Reaction Status Date / Time aripiprazole (From Abilify) Allergy Severe Rash, hives Verified 10/14/24 02:11 doxycycline Allergy Severe Anaphylaxsi Verified 10/14/24 02:11 s levetiracetam (From Keppra) Allergy Severe RASH/HIVES Verified 10/14/24 02:11 sulfamethoxazole Allergy Severe Hives Verified 10/14/24 02:11 venom-honey bee Allergy Severe unknown Verified 10/14/24 02:11 Penicillins Allergy Intermediate Skin Rash Verified 10/14/24 02:11 chlorhexidine Allergy Unknown unknown Verified 10/14/24 02:11 Sulfa (Sulfonamide Allergy Other (See Verified 10/14/24 02:11 Antibiotics) Comment) mold AdvReac Severe Wheezing Verified 10/14/24 02:11 oxycodone (Oxycodone) AdvReac Severe vomits Verified 10/14/24 02:11 paroxetine AdvReac Severe Irritability Verified 10/14/24 02:11 and anger dicloxacillin (Dicloxacillin) AdvReac Mild Nausea, GI Verified 10/14/24 02:11 upset gabapentin AdvReac Mild hives Verified 10/14/24 02:11 prednisone AdvReac Agitation Verified 10/14/24 02:11 trazodone AdvReac shortness Verified 10/14/24 02:11 of breath verapamil (Verapamil) AdvReac Worsening Verified 10/14/24 02:11 migraine nuts Allergy Severe Anaphylaxsi Uncoded 10/14/24 02:11 s Home Medications ?Medication ?Instructions ?Recorded ?Confirmed ?Type calcium 300 mg-vit D3 200 1 ea PO BID 11/09/12 10/14/24 History [id number]-ajmvypfjz 13.5 mg tablet (Citracal Plus Bone Density Builder) triamcinolone acetonide 0.1 % 1 applic topical BID PRN eczema 09/05/19 10/14/24 Rx topical cream #60 grams methylphenidate HCl 20 mg tablet 20 mg PO TID #84 tab-caps 10/20/19 10/14/24 Rx diphenhydramine HCl 25 mg tablet 100 mg PO HS 12/13/19 10/14/24 History (Benadryl Allergy) sucralfate 1 gram tablet 1 g PO AC & HS #120 tabs 12/30/19 10/14/24 Rx epinephrine 0.3 mg/0.3 mL 0.3 mg (0.3 mL) IM ONCE #1 ea 02/22/20 10/14/24 Rx injection, auto-injector (EpiPen 2-Nino) fluticasone propionate 220 2 inh inhalation BID ##3 02/22/20 10/14/24 Rx mcg/actuation HFA aerosol inhaler (Flovent HFA) omeprazole 40 mg capsule,delayed 40 mg PO DAILY GERD #90 caps 02/22/20 10/14/24 Rx release albuterol sulfate 90 mcg/actuation 2 puff inhalation Q6H PRN ##3 03/07/20 10/14/24 Rx aerosol inhaler (ProAir HFA) ondansetron HCl 8 mg tablet 8 mg PO BID PRN nausea and 03/07/20 10/14/24 Rx vomiting #20 tabs sumatriptan succinate 6 mg/0.5 mL 6 mg (0.5 mL) subcut ONCE PRN 03/07/20 10/14/24 Rx subcutaneous pen injector migraine headache #90 SYRGS clonazepam 1 mg tablet 1 mg PO TID PRN anxiety #90 tabs 03/20/20 10/14/24 Rx acidophilus 25 million 1 tab PO DAILY 08/16/20 10/14/24 History cell-pectin, citrus 100 mg tablet cetirizine 10 mg capsule (Zyrtec) 10 mg PO DAILY 08/16/20 10/14/24 History polyethylene glycol 3350 17 gram 17 g PO DAILY PRN 08/16/20 10/14/24 History oral powder packet (Miralax) topiramate 200 mg tablet (Topamax) 400 mg PO DAILY 08/16/20 10/14/24 History albuterol sulfate 2.5 mg/3 mL 2.5 mg inhalation TID 05/03/21 04/27/24 History (0.083 %) solution for nebulization ascorbic acid (vitamin C) 500 mg 500 mg PO BID #60 tabs 05/04/21 10/14/24 Rx tablet (Vitamin C) bzihvvlqvx-vxqzeqejbilyv-apdeslop 1 cap PO Q4H PRN #60 caps 05/04/21 10/14/24 Rx 50 mg-300 mg-40 mg capsule (Fioricet) cholecalciferol (vitamin D3) 50 50 mcg PO DAILY #30 caps 05/04/21 10/14/24 Rx mcg (2,000 unit) capsule (Vitamin D3) prochlorperazine maleate 10 mg 10 mg PO TID PRN #60 tabs 05/04/21 10/14/24 Rx tablet (Compazine) promethazine 25 mg tablet 25 mg PO TID PRN #60 tabs 05/04/21 10/14/24 Rx budesonide-formoterol HFA 160 1 inh inhalation QDAY 01/22/22 10/14/24 History mcg-4.5 mcg/actuation aerosol inhaler (Symbicort) inhalational spacing device 05/17/22 10/14/24 History levothyroxine 125 mcg tablet 125 mcg PO HS 05/17/22 10/14/24 History enoxaparin 80 mg/0.8 mL 80 mg (0.8 mL) subcut Q12H #60 05/19/22 10/14/24 Rx subcutaneous syringe SYRGS lorazepam 1 mg tablet 1 mg sublingual TID PRN #30 tabs 05/19/22 10/14/24 Rx ondansetron 4 mg disintegrating 4 mg PO Q8H PRN nausea and 07/29/22 10/14/24 Rx tablet vomiting #30 tabs magnesium 250 mg tablet 250 mg PO DAILY #7 tabs 08/28/22 10/14/24 Rx potassium chloride 20 mEq 20 meq PO DAILY #5 tabs 08/28/22 10/14/24 Rx tablet,extended release(part/cryst) prochlorperazine maleate 10 mg 10 mg PO Q8H PRN #10 tabs 08/28/22 10/14/24 Rx tablet (Compazine) promethazine 25 mg tablet 25 mg PO Q6H PRN #10 tabs 01/04/23 10/14/24 Rx scopolamine base 1 mg over 3 days 1 patch transdermal Q3D PRN #4 ea 01/06/23 10/14/24 Rx transdermal patch Exam Narrative Exam Narrative: GEN: Sleepy, but arouses and alert and oriented x 4, uncomfortable lying on left side, lots of covers. Gives linear history, cooperative. Son feeding her potato chips HEENT: Head atraumatic. Conjunctiva clear, no icterus. PEERL, EOMI. no rhinorrhea. MMM, OP benign. Neck is supple with no masses or lymphadenopathy, trachea midline LUNGS: CTAB with normal effort CV: RRR with no murmurs, gallops, or rubs. ABD: active bowel sounds, soft, nontender and nondistended. No masses. EXT: no cyanosis, clubbing, or edema MSK: No joint redness or swelling NEURO: CN 2-12 grossly intact. Normal movement of 4 extremities. Normal speech and coordination. No tremor SKIN: ~15cm saucer-shaped red tender patch left buttocks with ~10cm central induration and ~3cm head, not draining PSYCH: Slightly irritable with pain, but otherwise mood and affect, normal thought process Results Labs 10/14/24 02:36 10/14/24 02:36 Labs: Laboratory Results - last 24 hr 10/14/24 02:36 WBC 16.27 H RBC 5.15 Hgb 14.3 Hct 42.6 MCV 83 MCH 27.8 MCHC 33.6 RDW 13.5 Plt Count 269 MPV 10.8 Immature Gran % 0.3 Neutrophils % 80.7 Lymphocytes % 11.4 Monocytes % 6.0 Eosinophils % 1.2 Basophils % 0.4 Nucleated RBC % 0.0 Absolute Neutrophils 13.13 H Absolute Lymphocytes 1.85 Absolute Monocytes 0.98 H Absolute Eosinophils 0.20 Absolute Basophils 0.07 VBG Lactate 0.9 Sodium 139 Potassium 3.0 L Chloride 98 Carbon Dioxide 27.2 Anion Gap 13.8 H BUN 19 H Creatinine 1.0 Est GFR (CKD-EPI 2020) 70.80 Glucose 98 Calcium 9.0 Total Bilirubin 0.9 AST 8 L ALT 29 Alkaline Phosphatase 95 Total Protein 8.4 H Albumin 4.0 Add-On Test Request DONE Last Vital Signs Temp 36.6 C 10/14/24 02:04 Pulse 73 10/14/24 02:04 Resp 20 10/14/24 02:04 BP 134/80 10/14/24 02:04 Pulse Ox 100 10/14/24 02:04 Time Spent Time spent with Patient: 55-74 minutes Time was spent: preparing to see the patient(eg.review tests), obtaining and/or reviewing separately otained hiistory, ordering medications,tests, procedures, referring, communicating with other health care advocate, indepentently interpreting results, counseling the patient and care coordination
[2024-10-14 05:30] LABS: Magnesium 2.2 mg/dL (1.8-2.4)
--- NOTE | 2024-10-14 09:04 | W.PC.ACHO ---
Registration Status: ADM IN Primary Language: Preferred Language: Mohawk ED Information & Data Chief Complaint InsectBite 10/14/24 02:22 Other Complaint RashLesion 10/14/24 02:04 Triage Note Redness, tenderness, pain, 10/14/24 02:04 swelling, pearlescent discharge around point of spider bite on Lower L lumbar/buttocks area. Medical / Surgical History (Last Updated 10/14/24 @ 05:37 by Jonny Ellsion) Pulmonary embolism Normocytic anemia Primary hypercoagulable state Acute renal insufficiency Orbital cellulitis on left Candidiasis Left lower quadrant pain (01/27/12) Thrombosis of arteries of lower extremity Preseptal cellulitis of left eye Vaginal candidiasis Hematuria Left buttock abscess Other enthesopathies, not elsewhere classified (03/21/16) Asthma (11/08/12) Cyst of fallopian tube Right lower quadrant abdominal pain Nephrolithiasis Migraine headache Hypothyroidism GERD (gastroesophageal reflux disease) Depression Recurrent deep vein thrombosis (DVT) Chronic anticoagulation Intractable vomiting with nausea Factor V Leiden mutation Cellulitis of left leg (Last Reviewed 03/12/23 @ 19:02 by Nguyen Jiang NP) History of arthroscopy of knee Status post LEEP (loop electrosurgical excision procedure) of cervix Status post cholecystectomy 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) S/P appendectomy (12/24/17) THUMB RECONSTRUCTION Abdominal hysterectomy (~2009) Cholecystectomy Cervical Conization/LEEP Bilateral salpingectomy with oophorectomy (~2008) Arthroplasty of knee (~1999) Most Recent Vital Signs Temperature 36.6 C 10/14/24 02:04 Pulse 60 10/14/24 08:35 Respiratory Rate 20 10/14/24 02:04 Blood Pressure 125/66 10/14/24 08:35 Blood Pressure Mean 87 10/14/24 08:35 Blood Pressure Position Sitting 10/14/24 02:04 Pulse Oximetry 100 10/14/24 06:42 Oxygen Delivery Method Room Air 10/14/24 02:04 Oxygen Flow Rate 0 10/14/24 02:04 Allergies aripiprazole (From Abilify) Allergy (Severe, Verified 10/14/24 02:11) Rash, hives doxycycline Allergy (Severe, Verified 10/14/24 02:11) Anaphylaxsis levetiracetam (From Keppra) Allergy (Severe, Verified 10/14/24 02:11) RASH/HIVES sulfamethoxazole Allergy (Severe, Verified 10/14/24 02:11) Hives venom-honey bee Allergy (Severe, Verified 10/14/24 02:11) unknown Penicillins Allergy (Intermediate, Verified 10/14/24 02:11) Skin Rash chlorhexidine Allergy (Unknown, Verified 10/14/24 02:11) unknown Sulfa (Sulfonamide Antibiotics) Allergy (Verified 10/14/24 02:11) Other (See Comment) unable to remember mold Adverse Reaction (Severe, Verified 10/14/24 02:11) Wheezing oxycodone (Oxycodone) Adverse Reaction (Severe, Verified 10/14/24 02:11) vomits paroxetine Adverse Reaction (Severe, Verified 10/14/24 02:11) Irritability and anger dicloxacillin (Dicloxacillin) Adverse Reaction (Mild, Verified 10/14/24 02:11) Nausea, GI upset gabapentin Adverse Reaction (Mild, Verified 10/14/24 02:11) hives prednisone Adverse Reaction (Verified 10/14/24 02:11) Agitation trazodone Adverse Reaction (Verified 10/14/24 02:11) shortness of breath verapamil (Verapamil) Adverse Reaction (Verified 10/14/24 02:11) Worsening migraine nuts Allergy (Severe, Uncoded 10/14/24 02:11) Anaphylaxsis Active Medications Generic Name Dose Route Start Last Admin Trade Name Freq PRN Reason Stop Dose Admin Lidocaine/Prilocaine 5 gm 10/14/24 03:00 10/14/24 03:19 Lidocaine/Prilocaine Cream 5 Gm Tube TP 5 gm DIRECTED CESILIA Administration IV IV Catheter Type [Left Upper Saline Lock arm] IV Catheter Type [Right Saline Lock Antecubital] IV Catheter Gauge [Left Upper 18 arm] IV Catheter Gauge [Right 18 Antecubital] Diet Orders Category Date Time Status Regular/Normal [DIET] Nutrition 10/14/24 Breakfast Active Diagnostics 10/14/24 Range/Units 02:36 WBC 16.27 H (4.4-10.8) 10^3/uL RBC 5.15 (3.93-5.22) 10^6/uL Hgb 14.3 (11.2-15.7) g/dL Hct 42.6 (36.0-46.0) % MCV 83 (80-95) fL MCH 27.8 (27.0-33.0) pg MCHC 33.6 (32.0-36.0) % RDW 13.5 (11.7-14.6) % Plt Count 269 (130-400) 10^3/uL MPV 10.8 (8.0-11.0) fL Immature Gran % 0.3 % Neutrophils % 80.7 % Lymphocytes % 11.4 % Monocytes % 6.0 % Eosinophils % 1.2 % Basophils % 0.4 % Nucleated RBC % 0.0 (0.0-0.3) % Absolute Neutrophils 13.13 H (1.2-6.7) 10^3/uL Absolute Lymphocytes 1.85 (1.2-3.4) 10^3/uL Absolute Monocytes 0.98 H (0.1-0.8) 10^3/uL Absolute Eosinophils 0.20 (0.0-0.7) 10^3/uL Absolute Basophils 0.07 (0.0-0.2) 10^3/uL VBG Lactate 0.9 (<or=2.0) mmol/L Sodium 139 (136-145) mmol/L Potassium 3.0 L (3.5-5.1) mmol/L Chloride 98 (98-107) mmol/L Carbon Dioxide 27.2 (21.0-32.0) mmol/L Anion Gap 13.8 H (3-11) mmol/L BUN 19 H (7-18) mg/dL Creatinine 1.0 (0.55-1.02) mg/dL Est GFR (CKD-EPI 2020) 70.80 (mL/min/1.73m2) Glucose 98 (74-106) mg/dL Calcium 9.0 (8.5-10.1) mg/dL Magnesium 2.2 (1.8-2.4) mg/dL Total Bilirubin 0.9 (0.2-1.0) mg/dL AST 8 L (15-37) U/L ALT 29 (14-59) U/L Alkaline Phosphatase 95 (46-116) U/L Total Protein 8.4 H (6.4-8.2) g/dL Albumin 4.0 (3.4-5.0) g/dL Add-On Test Request DONE 10/14/24 03:15 Blood Culture - Pending Blood 10/14/24 02:14 Wound Culture - Pending Buttock - Right Gram Stain - Final 10/14/24 02:36 Blood Culture - Pending Blood Intake and Output - 24 Hour Total 10/14/24 01:59 thru 10/14/24 03:18 Intake Total 150 Balance 150 Weight 58.967 kg Intake: IV 150 Falls Risk Assessment History of Falls No History 10/14/24 02:08 Contributing Factors No Factors 10/14/24 02:08 Ambulatory Aids Independent 10/14/24 02:08 Tubes/Lines None 10/14/24 02:08 Gait Evaluation No gait disturbance 10/14/24 02:08 Cognition No cognitive impairment 10/14/24 02:08 Fall Total Score 0 10/14/24 02:08 Level of Risk Standard/Low Risk 10/14/24 02:08 Problems (Last Updated 10/14/24 @ 05:37 by Jonny Ellison) Cellulitis of back (Acute) Hypokalemia (Acute) Cyclic vomiting syndrome (Acute) ADHD (attention deficit hyperactivity disorder), 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) v v v v v v v v v Sending and/or Receiving Nurses: Please use comment section below to note any information pertinent to the patient hand-off not included above. Information / Comments: Report received from: Report received from Ban at 08:31. Pt is here for cellulitis of the back, possible spider bite. Has a hx of these abcesses getting infectede as well as cannabis abuse with cyclical vomiting, panic disorder, ADHD, back pain and anxiety. VS in ED: 125/66, 60, 36.6, 99% on ra. She received meds in the ED: 03:00- clindamycin, zofran, tramadol, 04:00- droperidol. Also has NS running in US guided 18g LUE IV at 150 ml/hr
--- NOTE | 2024-10-14 09:16 | W.PM.PROGNOT ---
Date of Service Date of service: 10/14/24 Time of Service: 09:16 Assessment and Plan Assessment and plan (1) Cellulitis of back: Status: Acute Assessment and plan: With abscess formation, though per ED POCUS nothing to drain With this abscess and poor ability to tolerate oral medication with cyclic vomiting, I agree with admission Consult surgery as I do think this will need to be drained, possible CT to guide? h/o MRSA from periorbital abscess and buttocks abscesses in 2019, Started on clindamycin in the ED but I will treat with vancomycin for now as this more reliably covers MRSA. (2) Primary hypercoagulable state: Assessment and plan: With recurrent DVTs/PEs She is on chronic therapeutic enoxaparin. Has had weight loss since this started, will dose reduce to 1mg/kg BID (3) Cyclic vomiting syndrome: Status: Acute Assessment and plan: Long history on chronic antiemetic use. Will use prn ondansatron and compazine. She has h/o cannabis use, but denies currently. UDS ordered as THC and cocaine on previous admission. She also has subcut triptan (4) Migraine headache: Assessment and plan: continue topiramate, subcut triptan prn (5) Asthma: Assessment and plan: Not currently active, continue ICS and albuterol prn. Per PCP notes she has COPD, on LAMA. Clarify meds. She denies current smoking. (6) Hypothyroidism: Assessment and plan: continue levothyroxine (7) Hypokalemia: Status: Acute Assessment and plan: Vomited after oral potassium in ED. Give I liter of D5NS+40K today, follow. Mg okay. (8) GERD (gastroesophageal reflux disease): Assessment and plan: PPI, IV for now. (9) ADHD (attention deficit hyperactivity disorder), inattentive type: Status: Chronic Assessment and plan: holding methylfenidate with GI upset, need to clarify she is taking this regularly. Discussed withDr. Vyas Objective Last Vital Signs Temp 36.5 C 10/14/24 09:01 Pulse 68 10/14/24 09:01 Resp 18 10/14/24 09:01 BP 118/72 10/14/24 09:01 Pulse Ox 100 10/14/24 09:01 Laboratory Results - last 24 hr 10/14/24 02:36 WBC 16.27 H RBC 5.15 Hgb 14.3 Hct 42.6 MCV 83 MCH 27.8 MCHC 33.6 RDW 13.5 Plt Count 269 MPV 10.8 Immature Gran % 0.3 Neutrophils % 80.7 Lymphocytes % 11.4 Monocytes % 6.0 Eosinophils % 1.2 Basophils % 0.4 Nucleated RBC % 0.0 Absolute Neutrophils 13.13 H Absolute Lymphocytes 1.85 Absolute Monocytes 0.98 H Absolute Eosinophils 0.20 Absolute Basophils 0.07 VBG Lactate 0.9 Sodium 139 Potassium 3.0 L Chloride 98 Carbon Dioxide 27.2 Anion Gap 13.8 H BUN 19 H Creatinine 1.0 Est GFR (CKD-EPI 2020) 70.80 Glucose 98 Calcium 9.0 Magnesium 2.2 Total Bilirubin 0.9 AST 8 L ALT 29 Alkaline Phosphatase 95 Total Protein 8.4 H Albumin 4.0 Add-On Test Request DONE
[2024-10-14] MEDS: POTASSIUM CHLORIDE/D5-0.9%NACL 1,000 ML 150 MEQ IV (09:22)
[2024-10-14] MEDS: Cetirizine 10 MG TAB PO (09:49)
[2024-10-14] MEDS: Pantoprazole 40 MG VIAL IVP (09:49)
[2024-10-14] MEDS: MORPHine 4 MG/ML SYR IVP ×3 (09:50→21:54)
[2024-10-14] MEDS: Enoxaparin 60 MG/0.6 ML SYR SC ×2 (09:50→20:14)
[2024-10-14] MEDS: VANCOMYCIN/WATER (PEG) 750 MG/150 ML BAG 150 MG IVPB ×2 (11:12→21:55)
[2024-10-14 13:32] LABS: *AMPHETAMINES SCREEN URINE Negative (Negative); *BARBITURATES SCREEN URINE Negative (Negative); *BENZODIAZEPINES SCREEN URINE Negative (Negative); Cannabinoids THC Negative (Negative); Cocaine Screen,Urine Positive (Negative); METHADONE URINE SCREEN Negative (Negative); OPIATES URINE SCREEN Positive (Negative)
[2024-10-14 13:33] LABS: Tricyclic Antidepressants Negative (Negative)
--- NOTE | 2024-10-14 14:13 | NUR.NOTE ---
Nursing Note: Pt has been asking for drinks and snacks frequently, multiple staff noted that pt's son (adult) is eating and drinking most of these. This nurse discussed with her to wait for dinner as she has already eaten lunch and multiple snacks.
--- NOTE | 2024-10-14 19:44 | SCONE_ITS ---
Date of service: 10/14/24 Time of Service: 19:45 Assessment and Plan Assessment and plan (1) Cellulitis of back: Status: Acute Assessment and plan: This is a soft tissue infection, that seems to be draining spontaneously. It is a little difficult to say whether is not there is a true abscess cavity here, as she is quite tender, and the exam is limited by her pain. I reports, it does need to be improving. For now, we will continue with intravenous antibiotics, I have asked her not to eat or drink anything after midnight in case there is tissue that would benefit from debridement in the morning time. So far, Gram stain from the wound last night does have gram-positive cocci, and she is already been started on vancomycin after receiving a dose of clindamycin in the emergency department. History of Present Illness History of Present Illness Chief Complaint: Right lower back cellulitis and soft tissue infection Narrative: Dionna is 44 years old. She comes to the emergency department with approximately 3 to 4 days of increasing pain and swelling on the right side of her lower back. She thinks it started as an insect bite. She says its become increasingly painful. There may have been some straw-colored drainage from it, but she is not exactly sure. She denies any subjective fevers. She says has happened multiple times in the past all over her body. 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) B12 deficiency (Chronic) Medical History (Updated 10/14/24 @ 08:57 by TRAV STRANGE) Pulmonary embolism Normocytic anemia Primary hypercoagulable state Acute renal insufficiency Orbital cellulitis on left Candidiasis Left lower quadrant pain (01/27/12) Thrombosis of arteries of lower extremity Preseptal cellulitis of left eye Vaginal candidiasis Hematuria Left buttock abscess Other enthesopathies, not elsewhere classified (03/21/16) Neck Asthma (11/08/12) Cyst of fallopian tube Right lower quadrant abdominal pain inflamed/ruptured fallopian tube on the right Nephrolithiasis Migraine headache Hypothyroidism GERD (gastroesophageal reflux disease) Depression Recurrent deep vein thrombosis (DVT) Chronic anticoagulation Intractable vomiting with nausea Factor V Leiden mutation Cellulitis of left leg Surgical History History of arthroscopy of knee Status post LEEP (loop electrosurgical excision procedure) of cervix Status post cholecystectomy 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) S/P appendectomy (12/24/17) Dr Veliz - Lap appy and lap excision of R fallopian tube remnant THUMB RECONSTRUCTION left; in childhood Abdominal hysterectomy (~2009) Cholecystectomy Cervical Conization/LEEP LEEP 2002 [facility] BX 2003 Bilateral salpingectomy with oophorectomy (~2008) Arthroplasty of knee (~1999) left Social History (Updated 10/14/24 @ 07:11 by Jonny Ellison) Smoking/Tobacco Use Status: Never Smoking risk assessment performed?: Yes Alcohol Intake: former Substance use type: does not use Housing: other Current gender identity: female Do you feel safe at home: Yes Do you feel safe in your relationship?: Yes Additional Social history: Lives in [facility]. Son Braulio lives close. Exam Skin Other: There is a tender erythematous swollen area on the skin. There are some epidermal lysis at the center, and some seropurulent discharge. There is no associated lymphadenopathy in the groins. There is no blistering or any features of necrotizing fasciitis. Results Last Vital Signs Temp 97.7 F 10/14/24 09:01 Pulse 68 10/14/24 09:01 Resp 18 10/14/24 09:01 BP 118/72 10/14/24 09:01 Pulse Ox 100 10/14/24 09:01 Labs 10/14/24 02:36 10/14/24 15:20 Labs: Laboratory Results - last 24 hr 10/14/24 10/14/24 10/14/24 02:36 12:53 15:20 WBC 16.27 H RBC 5.15 Hgb 14.3 Hct 42.6 MCV 83 MCH 27.8 MCHC 33.6 RDW 13.5 Plt Count 269 MPV 10.8 Immature Gran % 0.3 Neutrophils % 80.7 Lymphocytes % 11.4 Monocytes % 6.0 Eosinophils % 1.2 Basophils % 0.4 Nucleated RBC % 0.0 Absolute Neutrophils 13.13 H Absolute Lymphocytes 1.85 Absolute Monocytes 0.98 H Absolute Eosinophils 0.20 Absolute Basophils 0.07 VBG Lactate 0.9 Sodium 139 Potassium 3.0 L 4.0 D Chloride 98 Carbon Dioxide 27.2 Anion Gap 13.8 H BUN 19 H Creatinine 1.0 Est GFR (CKD-EPI 2020) 70.80 Glucose 98 Calcium 9.0 Magnesium 2.2 Total Bilirubin 0.9 AST 8 L ALT 29 Alkaline Phosphatase 95 Total Protein 8.4 H Albumin 4.0 Urine Opiates Screen Positive A Urine Methadone Screen Negative Ur Barbiturates Screen Negative Ur Tricyclics Screen Negative Ur Amphetamines Screen Negative U Benzodiazepines Scrn Negative Urine Cocaine Screen Positive A Ur THC Screen Negative Add-On Test Request DONE
[2024-10-14] MEDS: Mometasone 220 MCG 14 DOSE INHALER 2 PUFF IH (19:49)
[2024-10-14] MEDS: Levothyroxine 125 MCG TAB PO (20:13)
[2024-10-15] MEDS: MORPHine 4 MG/ML SYR IVP ×2 (03:59→11:30)
[2024-10-15 07:33] LABS: Abs Immature Grans 0.07 10^3/uL (0.0-0.06); Absolute Basophil Count 0.04 10^3/uL (0.0-0.2); Absolute Lymphocyte Count 1.55 10^3/uL (1.2-3.4); Absolute Monocyte Count 0.76 10^3/uL (0.1-0.8); Absolute Neutrophil Count 10.93 10^3/uL (1.2-6.7); Basophils % 0.3 %; Eosinophils % 1.8 %; HCT 37.5 % (36.0-46.0); HGB 12.4 g/dL (11.2-15.7); Immature Grans % 0.5 %; Lymphocytes % 11.4 %; MCH 28.1 pg (27.0-33.0); MCHC 33.1 % (32.0-36.0); MCV 85 fL (80-95); MPV 11.8 fL (8.0-11.0); Monocytes % 5.6 %; Neutrophils % 80.4 %; Platelet Count 239 10^3/uL (130-400); RBC 4.42 10^6/uL (3.93-5.22); RDW 13.9 % (11.7-14.6); RDW-SD 43.1 fL
[2024-10-15 07:37] LABS: Absolute Eosinophil Count 0.24 10^3/uL (0.0-0.7)
[2024-10-15 07:54] LABS: Anion Gap 11.8 mmol/L (3-11); BUN 12 mg/dL (7-18); CO2 23.2 mmol/L (21.0-32.0); CREATININE 0.9 mg/dL (0.55-1.02); Calcium 8.6 mg/dL (8.5-10.1); Chloride 107 mmol/L (98-107); Estimated GFR 80.34 (mL/min/1.73m2); Glucose 137 mg/dL (74-106); Potassium 3.8 mmol/L (3.5-5.1); Sodium 142 mmol/L (136-145); TSH (W/Ref FT4) 4.34 uIU/mL (0.36-3.74)
[2024-10-15] MEDS: Enoxaparin 60 MG/0.6 ML SYR SC ×2 (08:05→19:44)
--- NOTE | 2024-10-15 08:06 | W.PM.PROGNOT ---
Date of Service Date of service: 10/15/24 Time of Service: 08:06 Assessment and Plan Assessment and plan (1) Cellulitis of back: Status: Acute Assessment and plan: We will proceed to the operating room this morning for incision, drainage and debridement of the wound. This will also give us the opportunity for direct wound culture, and tailor antibiotics if necessary. I explained the risks and benefits to Dionna, she has a good understanding of this. Will proceed to soon as possible. Subjective Subjective Interval history since last seen: Trace he still has quite a bit of pain over the site, and she did have some fevers last night. Exam Skin Other: The wound remains erythematous, and still quite a bit tender. It has not spread at all. But it does feel more fluctuant Objective Last Vital Signs Temp 102.0 F H 10/14/24 21:12 Pulse 79 10/14/24 19:57 Resp 20 10/14/24 19:57 BP 133/90 10/14/24 19:57 Pulse Ox 100 10/14/24 19:57 Laboratory Results - last 24 hr 10/14/24 10/14/24 10/15/24 12:53 15:20 : WBC 13.60 H RBC 4.42 Hgb 12.4 Hct 37.5 MCV 85 MCH 28.1 MCHC 33.1 RDW 13.9 Plt Count 239 MPV 11.8 H Immature Gran % 0.5 Neutrophils % 80.4 Lymphocytes % 11.4 Monocytes % 5.6 Eosinophils % 1.8 Basophils % 0.3 Nucleated RBC % 0.0 Absolute Neutrophils 10.93 H Absolute Lymphocytes 1.55 Absolute Monocytes 0.76 Absolute Eosinophils 0.24 Absolute Basophils 0.04 Potassium 4.0 D Urine Opiates Screen Positive A Urine Methadone Screen Negative Ur Barbiturates Screen Negative Ur Tricyclics Screen Negative Ur Amphetamines Screen Negative U Benzodiazepines Scrn Negative Urine Cocaine Screen Positive A Ur THC Screen Negative Time Spent with Patient Time Spent with Patient: 25-34 minutes Time was spent: preparing to see the patient(eg.review tests), indepentently interpreting results, counseling the patient and care coordination
--- NOTE | 2024-10-15 08:38 | W.ANESPRE ---
General Info Date of Service Date Performed: 10/15/24 Height: 5 ft 1 in Weight: 58.967 kg Body Mass Index (BMI): 24.5 Surgical Procedure: Operation Date: 10/15/24 08:35 Proposed Procedure Side Surgeon p Abscess Right Flank Right Adi Zhang MD Meds Allergies and Home Medications Allergies Allergy/AdvReac Type Severity Reaction Status Date / Time aripiprazole (From Abilify) Allergy Severe Rash, hives Verified 10/14/24 02:11 doxycycline Allergy Severe Anaphylaxsi Verified 10/14/24 02:11 s levetiracetam (From Keppra) Allergy Severe RASH/HIVES Verified 10/14/24 02:11 sulfamethoxazole Allergy Severe Hives Verified 10/14/24 02:11 venom-honey bee Allergy Severe unknown Verified 10/14/24 02:11 Penicillins Allergy Intermediate Skin Rash Verified 10/14/24 02:11 chlorhexidine Allergy Unknown unknown Verified 10/14/24 02:11 Sulfa (Sulfonamide Allergy Other (See Verified 10/14/24 02:11 Antibiotics) Comment) mold AdvReac Severe Wheezing Verified 10/14/24 02:11 oxycodone (Oxycodone) AdvReac Severe vomits Verified 10/14/24 02:11 paroxetine AdvReac Severe Irritability Verified 10/14/24 02:11 and anger dicloxacillin (Dicloxacillin) AdvReac Mild Nausea, GI Verified 10/14/24 02:11 upset gabapentin AdvReac Mild hives Verified 10/14/24 02:11 prednisone AdvReac Agitation Verified 10/14/24 02:11 trazodone AdvReac shortness Verified 10/14/24 02:11 of breath verapamil (Verapamil) AdvReac Worsening Verified 10/14/24 02:11 migraine nuts Allergy Severe Anaphylaxsi Uncoded 10/14/24 02:11 s Home Medication ?Medication ?Instructions ?Recorded calcium 300 mg-vit D3 200 1 ea PO BID 11/09/12 kybo-ieszmjcm-sdobndxrg 13.5 mg tablet (Citracal Plus Bone Density Builder) triamcinolone acetonide 0.1 % 1 applic topical BID PRN eczema 09/05/19 topical cream #60 grams methylphenidate HCl 20 mg tablet 20 mg PO TID #84 tab-caps 10/20/19 diphenhydramine HCl 25 mg tablet 100 mg PO HS 12/13/19 (Benadryl Allergy) sucralfate 1 gram tablet 1 g PO AC & HS #120 tabs 12/30/19 epinephrine 0.3 mg/0.3 mL 0.3 mg (0.3 mL) IM ONCE #1 ea 02/22/20 injection, auto-injector (EpiPen 2-Nino) fluticasone propionate 220 2 inh inhalation BID ##3 02/22/20 mcg/actuation HFA aerosol inhaler (Flovent HFA) omeprazole 40 mg capsule,delayed 40 mg PO DAILY GERD #90 caps 02/22/20 release albuterol sulfate 90 mcg/actuation 2 puff inhalation Q6H PRN ##3 03/07/20 aerosol inhaler (ProAir HFA) ondansetron HCl 8 mg tablet 8 mg PO BID PRN nausea and 03/07/20 vomiting #20 tabs sumatriptan succinate 6 mg/0.5 mL 6 mg (0.5 mL) subcut ONCE PRN 03/07/20 subcutaneous pen injector migraine headache #90 SYRGS clonazepam 1 mg tablet 1 mg PO TID PRN anxiety #90 tabs 03/20/20 acidophilus 25 million 1 tab PO DAILY 08/16/20 cell-pectin, citrus 100 mg tablet cetirizine 10 mg capsule (Zyrtec) 10 mg PO DAILY 08/16/20 polyethylene glycol 3350 17 gram 17 g PO DAILY PRN 08/16/20 oral powder packet (Miralax) topiramate 200 mg tablet (Topamax) 400 mg PO DAILY 08/16/20 albuterol sulfate 2.5 mg/3 mL 2.5 mg inhalation TID 05/03/21 (0.083 %) solution for nebulization ascorbic acid (vitamin C) 500 mg 500 mg PO BID #60 tabs 05/04/21 tablet (Vitamin C) yfiycbdfzx-rdvxajmgbfszi-vjatxnyw 1 cap PO Q4H PRN #60 caps 05/04/21 50 mg-300 mg-40 mg capsule (Fioricet) cholecalciferol (vitamin D3) 50 50 mcg PO DAILY #30 caps 05/04/21 mcg (2,000 unit) capsule (Vitamin D3) prochlorperazine maleate 10 mg 10 mg PO TID PRN #60 tabs 05/04/21 tablet (Compazine) promethazine 25 mg tablet 25 mg PO TID PRN #60 tabs 05/04/21 budesonide-formoterol HFA 160 1 inh inhalation QDAY 01/22/22 mcg-4.5 mcg/actuation aerosol inhaler (Symbicort) inhalational spacing device 05/17/22 levothyroxine 125 mcg tablet 125 mcg PO HS 05/17/22 enoxaparin 80 mg/0.8 mL 80 mg (0.8 mL) subcut Q12H #60 05/19/22 subcutaneous syringe SYRGS lorazepam 1 mg tablet 1 mg sublingual TID PRN #30 tabs 05/19/22 ondansetron 4 mg disintegrating 4 mg PO Q8H PRN nausea and 07/29/22 tablet vomiting #30 tabs magnesium 250 mg tablet 250 mg PO DAILY #7 tabs 08/28/22 potassium chloride 20 mEq 20 meq PO DAILY #5 tabs 08/28/22 tablet,extended release(part/cryst) prochlorperazine maleate 10 mg 10 mg PO Q8H PRN #10 tabs 08/28/22 tablet (Compazine) promethazine 25 mg tablet 25 mg PO Q6H PRN #10 tabs 01/04/23 scopolamine base 1 mg over 3 days 1 patch transdermal Q3D PRN #4 ea 01/06/23 transdermal patch Current Visit Medications: Current Medications Generic Name Dose Route Start Last Admin Trade Name Freq PRN Reason Stop Dose Admin Acetaminophen/Butalbital/Caffeine 1 - 2 each 10/14/24 14:25 Butalbital/Acetaminophen/Caffeine 50/300/40 Cap PO Q4H PRN Acidophilus/Pectin 1 cap 10/15/24 08:30 Lactobacillus Acidophilus Cap PO DAILY CESILIA Albuterol Sulfate 2 puff 10/14/24 06:45 Albuterol Hfa 8 Gm 60 Puff Inh IH Q6H PRN PRN Cetirizine HCl 10 mg 10/14/24 08:30 10/14/24 09:49 Cetirizine 10 Mg Tab PO 10 mg DAILY CESILIA Administration Enoxaparin Sodium 60 mg 10/14/24 08:00 10/14/24 20:14 Enoxaparin 60 Mg/0.6 Ml Syr SC 60 mg Q12H CESILIA Administration Hydroxyzine HCl 25 mg 10/14/24 18:12 Hydroxyzine Hcl 25 Mg Tab PO QID PRN PRN Vancomycin/PEG/NADA/Lysine/Water 750 mg in 150 mls @ 150 mls/hr 10/14/24 10:00 10/15/24 08:04 Vancocin Injection IVPB Infused Q12H [facility] Infusion Levothyroxine Sodium 125 mcg 10/14/24 20:00 10/14/24 20:13 Levothyroxine 125 Mcg Tab PO 125 mcg HS [facility] Administration Lidocaine/Prilocaine 5 gm 10/14/24 03:00 10/14/24 03:19 Lidocaine/Prilocaine Cream 5 Gm Tube TP 5 gm DIRECTED CESILIA Administration Lorazepam 1 mg 10/14/24 06:44 Lorazepam 1 Mg Tab PO TID PRN PRN Methylphenidate HCl 20 mg 10/15/24 08:30 Methylphenidate 10 Mg Tab PO TID [facility] Mometasone Furoate 2 puff 10/14/24 10:00 10/14/24 19:49 Mometasone 220 Mcg 14 Dose Inhaler IH 2 puffs BID [facility] Administration Morphine Sulfate 4 mg 10/14/24 06:43 10/15/24 03:59 Morphine 4 Mg/Ml Syr IVP 4 mg Q4H PRN PRN Administration Non-Formulary Medication 100 mg 10/14/24 20:00 Diphenhydramine Hcl [Benadryl Allergy] PO HS [facility] Ondansetron HCl 4 mg 10/14/24 06:44 Ondansetron O.D.T. 4 Mg Tabef PO Q8H PRN PRN nausea and vomiting Pantoprazole Sodium 40 mg 10/14/24 08:00 10/14/24 09:49 Pantoprazole 40 Mg Vial IVP 40 mg Q24H [facility] Administration Polyethylene Glycol 17 gm 10/14/24 06:44 Polyethylene Glycol 3350 17 Gm Packet PO DAILY PRN PRN Prochlorperazine Edisylate 10 mg 10/14/24 09:16 Prochlorperazine 10 Mg/2 Ml Vial IVP Q4H PRN PRN Sumatriptan Succinate 6 mg 10/14/24 14:19 Sumatriptan 6 Mg/0.5 Ml Vial SC DIRECTED PRN migraine headache Triamcinolone Acetonide 0 gm 10/14/24 06:44 Triamcinolone 0.1% Cr 15 Gm Tube TP BID PRN PRN eczema PFSH Active Problems Active Problems: Problem Status Onset Code Vomiting Acute R11.10 Cellulitis Acute L03.90 Cellulitis of back Acute L03.312 Hypokalemia Acute E87.6 Anxiety Chronic F41.9 Gastroesophagitis Acute K29.70, K20.90 Leukocytosis, unspecified Acute D72.829 Intractable nausea and vomiting Acute R11.2 Cyclic vomiting syndrome Acute R11.15 Panic disorder Chronic 03/21/16 F41.0 Chronic back pain greater than 3 months duration Chronic 12/29/14 M54.9, G89.29 ADHD (attention deficit hyperactivity disorder), inattentive type Chronic 01/23/17 F90.0 Cannabis abuse with cannabis-induced disorder Chronic F12.19 B12 deficiency Chronic E53.8 Medical History Medical History (Updated 10/14/24 @ 08:57 by TRAV STRANGE) Pulmonary embolism Normocytic anemia Primary hypercoagulable state Acute renal insufficiency Orbital cellulitis on left Candidiasis Left lower quadrant pain (01/27/12) Thrombosis of arteries of lower extremity Preseptal cellulitis of left eye Vaginal candidiasis Hematuria Left buttock abscess Other enthesopathies, not elsewhere classified (03/21/16) Neck Asthma (11/08/12) Cyst of fallopian tube Right lower quadrant abdominal pain inflamed/ruptured fallopian tube on the right Nephrolithiasis Migraine headache Hypothyroidism GERD (gastroesophageal reflux disease) Depression Recurrent deep vein thrombosis (DVT) Chronic anticoagulation Intractable vomiting with nausea Factor V Leiden mutation Cellulitis of left leg Surgical History Surgical History History of arthroscopy of knee Status post LEEP (loop electrosurgical excision procedure) of cervix Status post cholecystectomy 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) S/P appendectomy (12/24/17) Dr Veliz - Car [place] and car excision of R fallopian tube remnant THUMB RECONSTRUCTION left; in childhood Abdominal hysterectomy (~2009) Cholecystectomy Cervical Conization/LEEP LEEP 2003 [facility] BX 2003 Bilateral salpingectomy with oophorectomy (~2008) Arthroplasty of knee (~1999) left Tobacco Smoking/Tobacco Use Status: Never Alcohol Alcohol Intake: former Substance Use Substance use type: does not use Vital Signs and Lab Results Vital Signs Most Recent Vital Signs in EMR: Most Recent Vital Signs Temp Pulse Resp BP Pulse Ox 38.9 C H 79 20 133/90 100 10/14/24 21:12 10/14/24 19:57 10/14/24 19:57 10/14/24 19:57 10/14/24 19:57 Lab Results 10/15/24 06:25 10/15/24 06:25 Complete Blood Count: WBC, (4.4-10.8) 13.60 10^3/uL H Today, 06:25 RBC, (3.93-5.22) 4.42 10^6/uL Today, 06:25 Hgb, (11.2-15.7) 12.4 g/dL Today, 06:25 Hct, (36.0-46.0) 37.5 % Today, 06:25 Plt Count, (130-400) 239 10^3/uL Today, 06:25 VBG Lactate, (<or=2.0) 0.9 mmol/L 10/14/24, 02:36 Complete Metabolic Panel: Sodium, (136-145) 142 mmol/L Today, 06:25 Potassium, (3.5-5.1) 3.8 mmol/L Today, 06:25 Chloride, (98-107) 107 mmol/L Today, 06:25 Carbon Dioxide, (21.0-32.0) 23.2 mmol/L Today, 06:25 BUN, (7-18) 12 mg/dL Today, 06:25 Creatinine, (0.55-1.02) 0.9 mg/dL Today, 06:25 Est GFR (CKD-EPI 2020), (mL/min/1.73m2) 80.34 Today, 06:25 Magnesium, (1.8-2.4) 2.0 mg/dL Today, 06:25 Calcium, (8.5-10.1) 8.6 mg/dL Today, 06:25 Albumin, (3.4-5.0) 4.0 g/dL 10/14/24, 02:36 Glucose, (74-106) 137 mg/dL H Today, 06:25 Liver Function Panel: ALT, (14-59) 29 U/L 10/14/24, 02:36 AST, (15-37) 8 U/L L 10/14/24, 02:36 Thyroid Panel: TSH, (0.36-3.74) 4.34 uIU/mL H Today, 06:25 Toxicology Panel: Ur Amphetamines Screen, (Negative) Negative 10/14/24, 12:53 U Benzodiazepines Scrn, (Negative) Negative 10/14/24, 12:53 Ur Barbiturates Screen, (Negative) Negative 10/14/24, 12:53 Urine Cocaine Screen, (Negative) Positive A 10/14/24, 12:53 Urine Methadone Screen, (Negative) Negative 10/14/24, 12:53 Urine Opiates Screen, (Negative) Positive A 10/14/24, 12:53 Ur Tricyclics Screen, (Negative) Negative 10/14/24, 12:53 Ur THC Screen, (Negative) Negative 10/14/24, 12:53 Imaging and Studies Imaging and Studies Study information below may be from another EMR and interpreted by another provider. Please see original notes in EMR for more complete details. EKG Summary: 10/14/24: Exam: Resting ECG Reason for Exam: hyopokalemia Patient Location: E HR:65 bpm ECG Measurements Heart Rate 65 AXIS LA 167 P 76 QRSd 83 QRS 15 QT 429 T51 QTc 447 Conclusion Sinus rhythm...normal P axis, V-rate 60- [address] segment or T wave abnormalities to suggest occlusive OH I have reviewed and I agree with the emergency room physician's ECG interpretation. Echocardiogram Summary: 05/19/22: Conclusion Left ventricular wall thickness and chamber size. Estimated ejection fraction is 60 to 65%. Wall motion is normal Normal right ventricular size and systolic function Both atria are normal in size There is no structural or hemodynamically significant valvular disease Anesthesia Assessment and Plan Anesthesia History Personal History: No History of Anesthesia Complications Family History: No Family History of Anesthesia Complications Exercise Tolerance Exercise Tolerance: Metabolic Equivalents>4 Cardiac & Pulmonary Exam Cardiac Exam: Normal S1/S2 Heart Sounds Pulmonary Exam: Clear Bilateral Breath Sounds Implantable Cardiac Device Does patient have a Pacemaker or an ICD?: No Airway Exam Known Difficult Airway: No Mallampati Class: 2 Mouth Opening: Normal (> 3cm) Thyromental Distance: Greater than 3 cm Neck Range of Motion: Full ROM Neck Circumference: Normal Teeth Condition: Generalized Poor Dentition ASA Classification ASA Score: ASA 2 Emergency Case?: No NPO Status NPO Status: NPO Clears >2 hours, Solids >8 hours Status Status: History of Hysterectomy Anesthesia Plan Resuscitation Status: Full Code Anesthesia Technique: General Anesthesia Airway Planned: Natural Airway Monitors Used: Standard Monitors
[2024-10-15 08:52] LABS: FREE T4 0.94 ng/dL (0.76-1.46)
[2024-10-15] MEDS: Lactated Ringers 1,000 ML 30 ML IV (09:12)
[2024-10-15 09:13] VITALS: BMI 24.5
[2024-10-15] MEDS: Bupivacaine 0.5% Pres-Free 30 ML VIAL (09:35)
[2024-10-15] MEDS: Bupivacaine LIPOSOME/PF 133 MG/10 ML VIAL IJ (09:36)
--- NOTE | 2024-10-15 09:44 | ROE_ITS ---
Operative Note Operative Note PRE-OP DIAGNOSIS: Right lower back abscess POST-OP DIAGNOSIS: same PROCEDURE: Incision and drainage of right lower back abscess SURGEON: Adi Zhang ANESTHESIA TYPE: Local By Surgeon and MAC Refer to Anesthesia Record ESTIMATED BLOOD LOSS: 10 PATHOLOGY: other (Right lower back abscess for Gram stain and culture) COMPLICATIONS: None Patient was transported to: PACU Patient's condition: stable Indications: Dionna is a 44-year-old woman with an abscess on the right lower side of her back Procedure Description: I met with Dionna before the procedure, and explained the plan for incision, drainage and packing of her abscess. I explained the risks and the benefits once again, and she reaffirmed her consent. She was able to sign informed cons ent. We moved into the OR room, and she was assisted into the left lateral decubitus position in her bed. Anesthesia was initiated. The previous dressings were removed. The area of the abscess was prepped and draped. I established a generous field block using local anesthetic mixed with Exparel it was already draining some pus, and a skin defect was further opened. There was drainage of purulent material. Specimens were obtained for Gram stain and culture. Next, I made a cruciate incision over the central portion of the wound. There was a pocket of pus underneath of this, and it was manually debrided. The abscess cavity is approximately 6 cm wide by 4 cm wide by 3 cm deep. All loculations were obliterated. The wound was then irrigated with sterile saline solution. Further debridement was performed with an operative sponge. This was taken back to all clean healthy tissue. It was irrigated once again. It was largely hemostatic. 1 inch iodoform packing was then used to fi ll the space. An external dressing was applied, the surrounding skin was all cleaned, and Dionna was rolled back to the supine position as the anesthetic wore off. Date of Procedure: 10/15/24
--- NOTE | 2024-10-15 10:49 | ANES.POST_ITS ---
Postoperative Evaluation Date, Time and Location Date Performed: 10/15/24 Time Performed: 10:15 Patient Location: Med/Surg Vital Signs Most Recent Imported Vital Signs: Most Recent Vital Signs Temp Pulse Resp BP Pulse Ox 38.9 C H 79 20 133/90 100 10/14/24 21:12 10/14/24 19:57 10/14/24 19:57 10/14/24 19:57 10/14/24 19:57 Pain Score Most Recent Pain Score: Most Recent Pain Score Pain Level [Right Distal Back] 10/14/24 12:09 Pain Level 10/15/24 03:59 Assessment Mental Status: Awake (Alert & Oriented to Patient Baseline) Airway and Respiratory Function: Patent airway with normal (patient baseline) respiratory exam Cardiovascular Function: Hemodynamically Stable Hydration Status: Adequately Hydrated Nausea & Vomiting: No Nausea or Vomiting Pain: Pain is Moderate or Severe Postoperative Pain Management: Pain being addr essed with medication Peripheral Nerve Block: Patient did not receive a nerve block
--- NOTE | 2024-10-15 12:13 | PGE_ITS ---
Date of Service Date of service: 10/15/24 Time of Service: 12:14 Assessment and Plan Assessment and plan (1) Abscess: Status: Acute Assessment and plan: s/p I&D today by DR Zhang daily wound dressing changes and packing continue antibiotics wound culture growing MRSA continue vancomycin (2) MRSA (methicillin resistant staph aureus) culture positive: Status: Acute Assessment and plan: on vanco, (3) Primary hypercoagulable state: Assessment and plan: With recurrent DVTs/PEs She is on chronic therapeutic enoxaparin. Has had weight loss since this started, will dose reduce to 1mg/kg BID (4) Cyclic vomiting syndrome: Status: Acute Assessment and plan: Long history on chronic antiemetic use. Will use prn ondansatron and compazine. She has h/o cannabis use, but denies currently. UDS ordered as THC and cocaine on previous admission. (5) Migraine headache: Assessment and plan: stable fioricet prn (6) Asthma: Assessment and plan: Not currently active, continue ICS and albuterol prn. Per PCP notes she has COPD, on LAMA. Clarify meds. She denies current smoking. (7) Hypothyroidism: Assessment and plan: continue levothyroxine TSH 4 (8) Hypokalemia: Status: Acute Assessment and plan: replete and follow (9) GERD (gastroesophageal reflux disease): Assessment and plan: PPI, IV for now. (10) ADHD (attention deficit hyperactivity disorder), inattentive type: Status: Chronic Assessment and plan: holding methylfenidate with GI upset, need to clarify she is taking this regularly. unable to verify meds from pharmacy. Discussed withDr. Vyas Subjective Subjective Patient reports: still having pain, tolerating liquids well, tolerating a regular diet and afebrile; denies shortness of breath Exam Narrative Exam Narrative: Chronically ill-appearing older than stated age resting quietly in the bed with her eyes closed. Does not open and make eye contact speaking in a quiet mumbled voice head is atraumatic oral mucosa is moist respirations are even and unlabored cardiovascular regular rate and rhythm moves all extremities no peripheral edema psychiatric blunted mood and affect wound not visualized I&D today by surgery Objective Last Vital Signs Temp 38.9 C H 10/14/24 21:12 Pulse 79 10/14/24 19:57 Resp 20 10/14/24 19:57 BP 133/90 10/14/24 19:57 Pulse Ox 100 10/14/24 19:57 Laboratory Results - last 24 hr 10/14/24 10/14/24 10/15/24 12:53 15:20 06: WBC 13.60 H RBC 4.42 Hgb 12.4 Hct 37.5 MCV 85 MCH 28.1 MCHC 33.1 RDW 13.9 Plt Count 239 MPV 11.8 H Immature Gran % 0.5 Neutrophils % 80.4 Lymphocytes % 11.4 Monocytes % 5.6 Eosinophils % 1.8 Basophils % 0.3 Nucleated RBC % 0.0 Absolute Neutrophils 10.93 H Absolute Lymphocytes 1.55 Absolute Monocytes 0.76 Absolute Eosinophils 0.24 Absolute Basophils 0.04 Sodium 142 Potassium 4.0 D 3.8 Chloride 107 Carbon Dioxide 23.2 Anion Gap 11.8 H BUN 12 Creatinine 0.9 Est GFR (CKD-EPI 2020) 80.34 Glucose 137 H Calcium 8.6 Magnesium 2.0 TSH 4.34 H Free T4 0.94 Urine Opiates Screen Positive A Urine Methadone Screen Negative Ur Barbiturates Screen Negative Ur Tricyclics Screen Negative Ur Amphetamines Screen Negative U Benzodiazepines Scrn Negative Urine Cocaine Screen Positive A Ur THC Screen Negative Time Spent with Patient Time Spent with Patient: 35-49 minutes Time was spent: preparing to see the patient(eg.review tests), obtaining and/or reviewing separately otained hiistory, ordering medications,tests, procedures, referring, communicating with other health healthcare market consultant and indepentently interpreting results
--- NOTE | 2024-10-15 13:19 | PDOC.CMIN ---
Date of service: 10/15/24 Time of Service: 13:19 Care Management Initial Assmt Initial Assessment Reason for Hospitalization: cellulitis Functional Status/Living Situation Patient Presentation: Suzie was sitting up in bed when CM met with her. She appeared to be uncomfortable and when asked she stated that she is in pain, and asked when her pain medication was due; CM informed her RN of this. Suzie also asked about having an extra popsicle, and taking a shower later today, which CM also relayed to her RN. Per report, she had an I&D of the wound on her back this morning. CM asked her about HH coming in to provide dressing changes, and Suzie delined them, stating that her mother can do the dressing change. CM offered that her mother come in for tomorrow's dressing change for teaching, but Suzie stated that she has done it before. Per report, Suzie is nearing discharge readiness; she was being changed to oral medications, and her pain level is being monitored. CM will continue to follow. Town of Residence: [facility] Resides with: Parent Significant Other/Family: Local Natural Supports: son, Braulio mother, Tabatha Employment Status: Disabled Instrumental Activities of Daily Living (ADLs): Independent Medications Medication Management: No Issues/Barriers identified Physical Functioning/Mobility Assistive Device: none Advance Directives Advance Directives: Do you have an Advance Directive: Y 04/06/20, 16:16 AD On File at [facility]: Y 04/06/20, 16:16 Date Asked 04/27/24 04/27/24, 10:16 AD Date Reviewed 10/14/24 10/14/24, 08:57 COLST On File at [facility] No 05/14/20, 20:58 COLST Date Scanned Code Status Resuscitation Status Full Code Insurance Coverage/Financial Issues Insurance: [facility] Care Team Visit Care Team Role Provider Type Lynda Pond NP NURSE PRACTITIONER Unknown Unknown Primary Care Provider STAFF PHYSICIAN Taina Duffy MD Other [facility]iders [facility] STAFF PHYSICIAN TYRON Munson Other Providers PHYSICIANS ASSISTANT Yuni [facility]helan [facility] Other Providers [facility] STAFF PHYSICIAN Yuni Phelan [facility] Other Providers MD [facility] ST[facility]FF PHYSICIAN Karlos Atkins DO Other Providers CONSULTING PHYSICIAN Isaiah Flowers MD Other Providers [facility] STAFF PHYSICIAN Justino Brown MD Other Providers [facility] STAFF PHYSICIAN Philomena Ruth MD Other Providers [facility] STAFF PHYSICIAN Melissa Grayson, DO Other Providers CONSULTING PHYSICIAN Narciso Sanchez MD Other Providers CONSULTING PHYSICIAN Adi Zhang MD Other Providers [facility] STAFF PHYSICIAN Bobbi Owens, DO Other Providers OSTEOPATHIC DOCTOR Sunita Cruz MD Other Providers [facility] STAFF PHYSICIAN Camryn Russ MD Emergency Provider [facility] STAFF PHYSICIAN Jonny Ellison Admit Provider [facility] STAFF PHYSICIAN Attending Provider Discharge Potential Discharge Needs: PCP F/U Appt and Surgical F/U Appt Anticipated Barriers to Discharge: None Identified Patient/Family Education Needs: Review discharge instructions, discuss Ask Me Three Transportation: Private vehicle Plan: Anticipate Suzie will return home once medically cleared. She will transport home via private vehicle by family. She will follow up with her PCP and discharge plan of care. CM will continue to follow. Social Determinants of Health Screening Social Determinants of health last assessed in clinic: 10/15/24 Will the Patient Participate in the Screening?: Yes Do you worry about having a steady place to live?: yes What is your living situation today?: I have housing today, but am worried about losing it Problems where you live: no known problems In the past 12 months, have you had to go without electric, gas, oil or water in your home?: no 1. Within the past 12 months, we worried whether our food would run out before we got money to buy more.: Don't know/refused 2. Within the past 12 months, the food we bought just didn't last and we didn't have money to get more.: Don't know/refused Has lack of transportation kept you from medical appointments or from doing things needed for daily living?: yes Has anyone in your life made you feel unsafe or unsupported?: no How hard is it for you to pay for the very basics like food, housing, medical care, and heating? Would you say it is:: Not hard at all Do you want help finding or keeping work or a job?: I do not need or want help If for any reason you need help with day-to-day activities such as bathing, preparing meals, shopping, managing finances, etc., do you get the help you need?: I don?t need any help How often do you feel lonely or isolated from those around you?: Never Do you speak a language other than Bhutanese at home?: No Does the patient want assistance with any of the above?: No Health Related Social Needs Health related social needs: housing instability, housed, with risk of homelessness (Z59.811) and transportation insecurity (Z59.82) Health related social needs details: no needs PFSH All Active Problems (Updated 10/15/24 @ 12:17 by Lynda Pond NP) Abscess (Acute) MRSA (methicillin resistant staph aureus) culture positive (Acute) Vomiting (Acute) Cellulitis (Acute) Cellulitis of back (Acute) Hypokalemia (Acute) Anxiety (Chronic) Gastroesophagitis (Acute) Leukocytosis, unspecified (Acute) Intractable nausea and vomiting (Acute) Cyclic vomiting syndrome (Acute) Panic disorder (Chronic 03/21/16) Chronic back pain greater than 3 months duration (Chronic 12/29/14) ADHD (attention deficit hyperactivity disorder), 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) B12 deficiency (Chronic) Medical History (Updated 10/15/24 @ 12:17 by Lynda Pond NP) Pulmonary embolism Normocytic anemia Primary hypercoagulable state Acute renal insufficiency Orbital cellulitis on left Candidiasis Left lower quadrant pain (01/27/12) Thrombosis of arteries of lower extremity Preseptal cellulitis of left eye Vaginal candidiasis Hematuria Left buttock abscess Other enthesopathies, not elsewhere classified (03/21/16) Neck Asthma (11/08/12) Cyst of fallopian tube Right lower quadrant abdominal pain inflamed/ruptured fallopian tube on the right Nephrolithiasis Migraine headache Hypothyroidism GERD (gastroesophageal reflux disease) Depression Recurrent deep vein thrombosis (DVT) Chronic anticoagulation Intractable vomiting with nausea Factor V Leiden mutation Cellulitis of left leg Surgical History History of arthroscopy of knee Status post LEEP (loop electrosurgical excision procedure) of cervix Status post cholecystectomy 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) S/P appendectomy (12/24/17) Dr Veliz - Lap appy and lap excision of R fallopian tube remnant THUMB RECONSTRUCTION left; in childhood Abdominal hysterectomy (~2009) Cholecystectomy Cervical Conization/LEEP LEEP 2003 [facility] BX 2003 Bilateral salpingectomy with oophorectomy (~2008) Arthroplasty of knee (~1999) left Social History (Updated 10/14/24 @ 07:11 by Jonny Ellison) Smoking/Tobacco Use Status: Never Smoking risk assessment performed?: Yes Alcohol Intake: former Substance use type: does not use Housing: other Current gender identity: female Do you feel safe at home: Yes Do you feel safe in your relationship?: Yes Additional Social history: Lives in [facility]. Son Braulio lives close.
[2024-10-15] MEDS: Methylphenidate 10 MG TAB 20 MG PO (13:55)
[2024-10-15] MEDS: ACETAMINOPHEN 1,000 MG/100 ML BAG 400 MG IVPB ×2 (15:52→23:59)
[2024-10-15] MEDS: Ketorolac 15 MG/ML VIAL IVP (15:53)
[2024-10-15] MEDS: Levothyroxine 125 MCG TAB PO (19:44)
[2024-10-15] MEDS: diphenhydrAMINE 25 MG CAP 50 MG PO (19:45)
[2024-10-15] MEDS: Mometasone 220 MCG 14 DOSE INHALER 2 PUFF IH (19:51)
[2024-10-15 20:41] LABS: Vancomycin, Trough 2.3 ug/mL (10.0-20.0)
[2024-10-15] MEDS: VANCOMYCIN/WATER (PEG) 750 MG/150 ML BAG 150 MG IVPB (21:45)
[2024-10-16] MEDS: Normal Saline Flush 10 ML SYR
[2024-10-16] MEDS: Ketorolac 15 MG/ML VIAL IVP ×2 (06:08→11:42)
[2024-10-16] MEDS: Mometasone 220 MCG 14 DOSE INHALER 2 PUFF IH (07:15)
[2024-10-16] MEDS: Enoxaparin 60 MG/0.6 ML SYR SC (09:40)
[2024-10-16] MEDS: Lactobacillus Acidophilus CAP 1 CAP PO (09:40)
[2024-10-16] MEDS: Cetirizine 10 MG TAB PO (09:40)
[2024-10-16] MEDS: Pantoprazole 40 MG VIAL IVP (09:40)
[2024-10-16] MEDS: ACETAMINOPHEN 1,000 MG/100 ML BAG 400 MG IVPB (09:41)
[2024-10-16] MEDS: VANCOMYCIN/WATER (PEG) 1.25 GM/250 ML BAG IVPB (10:07)
--- NOTE | 2024-10-16 11:00 | W.PM.DS.N ---
Date of service: 10/16/24 Time of Service: 11:06 DS: Diagnosis Discharge Diagnosis (1) Abscess: Status: Acute (2) MRSA (methicillin resistant staph aureus) culture positive: Status: Acute (3) Primary hypercoagulable state: (4) Cyclic vomiting syndrome: Status: Acute (5) Migraine headache: (6) Asthma: (7) Hypothyroidism: (8) Hypokalemia: Status: Acute (9) GERD (gastroesophageal reflux disease): (10) ADHD (attention deficit hyperactivity disorder), inattentive type: Status: Chronic Discharge Plan Disposition Patient Disposition: Home Condition: Stable Discharge Details Reason For Visit: Cellulitis, Intractable Vomiting Admit Date/Time: 10/14/24 06:05 Admit Provider: Jonny Ellison Attending Provider: Jonny Ellison Primary Care Provider: Unknown,Unknown Hospital Course Hospital Course: This is a 44-year-old female patient's past medical history significant for ADHD cannabinoid hyperemesis anxiety presented to the emergency department with pain redness and swelling in her right low back. Her ED POCUS showed no drainable abscess. General surgery was consulted and wound was drained. Wound care instructions for daily packing. She was placed on vancomycin and ceftriaxone. Wound culture did grow MRSA. Plan is to discharge home to continue wound care as directed and follow-up outpatient with general surgery. She was given a 1500 mg dose of dalbavancin prior to discharge and will not need additional antibiotic prescription at this time. She will follow-up outpatient with general surgery and they can decide if she would need 1 more dose of dalbavancin in a week and a half. Also on this admission was noted that she had not had any of her medications filled recently. She has not been followed by a local PCP that we can determine. Her medication list was updated accordingly. Apparently she states she gets her enoxaparin from a provider in [place] who follows her for history of recurrent clots. discharge discussed with DR Lilliam Garner Meds and New Rx's Prescriptions: Continued triamcinolone acetonide 0.1 % cream 1 applic Topical BID PRN (Reason: eczema) Qty: 60 1RF Rx Instructions: Apply to eczema epinephrine [EpiPen 2-Nino] 0.3 mg/0.3 mL auto-injector 0.3 mg IM ONCE Qty: 1 1RF omeprazole 40 mg capsule,delayed release(DR/EC) 40 mg PO DAILY Qty: 90 4RF albuterol sulfate [ProAir HFA] 90 mcg/actuation HFA aerosol inhaler 2 puff Inhalation Q6H PRN MDD 6 puffs Qty: 3 4RF polyethylene glycol 3350 [Miralax] 17 gram Powder In Packet 17 g PO DAILY PRN cholecalciferol (vitamin D3) [Vitamin D3] 50 mcg (2,000 unit) capsule 50 mcg PO DAILY Qty: 30 0RF (DME) inhalational spacing device 1 EACH spacer MISCELLANEOUS levothyroxine 125 mcg tablet 125 mcg PO HS enoxaparin 80 mg/0.8 mL syringe 80 mg subcut Q12H Qty: 60 0RF magnesium 250 mg tablet 250 mg PO DAILY Qty: 7 0RF Discontinued sucralfate 1 gram tablet 1 g PO AC & HS Qty: 120 2RF Citracal Plus Bone Density 1 EACH tablet 1 ea PO BID methylphenidate HCl 20 mg tablet 20 mg PO TID MDD 60 mg Qty: 84 0RF fluticasone propionate [Flovent HFA] 220 mcg/actuation HFA aerosol inhaler 2 inh Inhalation BID Qty: 3 4RF ondansetron HCl 8 mg tablet 8 mg PO BID PRN (Reason: nausea and vomiting) Qty: 20 0RF sumatriptan succinate 6 mg/0.5 mL pen injector 6 mg subcut ONCE MDD 12mg PRN (Reason: migraine headache) Qty: 90 1RF Rx Instructions: May repeat dose once in 1 hour if headache persists clonazepam 1 mg tablet 1 mg PO TID PRN (Reason: anxiety) Qty: 90 0RF Zyrtec 10 mg Capsule 10 mg PO DAILY topiramate [Topamax] 200 mg tablet 400 mg PO DAILY Rx Instructions: Brand name medically necessary acidophilus-pectin, citrus 25 million cell -100 mg tablet 1 tab PO DAILY albuterol sulfate 2.5 mg /3 mL (0.083 %) Solution For Nebulization 2.5 mg INHALATION TID ascorbic acid (vitamin C) [Vitamin C] 500 mg Tablet 500 mg PO BID Qty: 60 0RF [id number] [Fioricet] 50-300-40 mg capsule 1 cap PO Q4H PRNQty: 60 0RF Rx Instructions: Take 1-2 tabs as needed for WILLETT, not to exceed 6 tabs in 24 hours prochlorperazine maleate [Compazine] 10 mg tablet 10 mg PO TID PRNQty: 60 0RF promethazine 25 mg tablet 25 mg PO TID PRNQty: 60 0RF lorazepam 1 mg tablet 1 mg sublingual TID PRNQty: 30 0RF potassium chloride 20 mEq tablet,ER particles/crystals 20 meq PO DAILY Qty: 5 0RF prochlorperazine maleate [Compazine] 10 mg tablet 10 mg PO Q8H PRNQty: 10 0RF promethazine 25 mg tablet 25 mg PO Q6H PRNQty: 10 0RF budesonide-formoterol [Symbicort] 160-4.5 mcg/actuation HFA aerosol inhaler 1 inh INHALATION QDAY Patient Comments: INHALE TWO PUFFS BY MOUTH TWICE A DAY AND NEEDED ondansetron 4 mg tablet,disintegrating 4 mg PO Q8H PRN (Reason: nausea and vomiting) Qty: 30 0RF scopolamine base 1 mg over 3 days patch 3 day 1 patch transdermal Q3D PRNQty: 4 0RF No Action diphenhydramine HCl [Benadryl Allergy] 25 mg tablet 100 mg PO HS Patient Comments: Take 4 tablet by mouth at bedtime Discharge Instructions Instructions: Abscess Incision and Drainage (DC) Additional Instructions: your wound has been drained by surgery continue daily dressing changes and packing wound as directed you have been given a one dose of antibiotics to complete your course, there is not further prescriptions needed at this time. surgery will decide if you need another dose in 1 1/2 weeks. Stand Alone Forms: Nursing Discharge Form Referrals: Adi Zhang MD [ [facility] STAFF PHYSICIAN, Surgery] Referral Note: Please call the office on Thursday to set up a hospital follow up. Activity:: Activity as Tolerated Equipment/Supplies:: No Equipment Needed Diet:: As Tolerated Discharge Orders Discharge Orders: Discharge Order (Routine); Ordered 10/16/24 Ordered By: Lynda Pond Discharge Data Discharge Date/Time-TO BE ENTERED AT DEPARTURE: 10/16/24 12:45 DS: Summary Time Spent with Patient providing and/or coordinating discharge services: Greater than 30 minutes Status at Discharge Functional status at discharge: independent ambulation Overall status at discharge: patient is progressing back to baseline Mental Status: mental status grossly normal Speech and Movement: speech and movement normal Mood: congruent mood Affect: normal affect Quality:SDOH Health Related Social Needs: Health related social needs risk of homeless transpo insecurity Health related social needs details no needs Health related social needs details: no needs Exam Narrative Exam Narrative: Chronically ill-appearing older than stated age resting quietly in the bed with her eyes closed. Does not open and make eye contact speaking in a quiet mumbled voice head is atraumatic oral mucosa is moist respirations are even and unlabored cardiovascular regular rate and rhythm moves all extremities no peripheral edema psychiatric blunted mood and affect dressing clean dry and intact. Psych Mental Status: mental status grossly normal Speech and Movement: speech and movement normal Mood: congruent mood Affect: normal affect DS: Data Vitals/I&O Vitals and I&O: Vital Signs Temperature 38.9 C H 10/14/24 21:12 Temperature Source Temporal Artery Scan 10/14/24 21:12 Pulse 79 10/14/24 19:57 Pulse Rhythm Regular 10/14/24 09:27 Respiratory Rate 20 10/14/24 19:57 Respiratory Effort Normal 10/14/24 09:27 Blood Pressure 133/90 10/14/24 19:57 Blood Pressure Mean 104 10/14/24 19:57 Blood Pressure Position Sitting 10/14/24 02:04 Pulse Oximetry 100 10/14/24 19:57 Oxygen Delivery Method Room Air 10/14/24 19:57 Oxygen Flow Rate 0 10/14/24 19:57 Pain Level 9 10/15/24 15:53 Intake & Output 10/15/24 10/15/24 10/16/24 11:59 23:59 11:59 Intake Total 450 / 697 247 / 697 100 / 100 Balance 450 / 697 247 / 697 100 / 100 Weight 58.967 kg Intake: IV 450 / 697 247 / 697 100 / 100 Data Completed and Pending Labs on day of discharge: Labs from last 24 hours 10/15/24 20:03 Vancomycin Trough 2.3 L 10/15/24 09:26 Back - Right Lower Anaerobic Culture - Pending Preliminary micro results at discharge 10/14/24 02:14 Buttock - Right Wound Culture - Preliminary Staph aureus, MRSA 10/15/24 09:26 Back - Right Lower Surgical Culture - Preliminary Staph aureus, MRSA 10/14/24 02:36 Blood Blood Culture - Preliminary 10/14/24 03:15 Blood Blood Culture - Preliminary NO GROWTH 48 HOURS 10/15/24 09:26 Back - Right Lower Anaerobic Culture - Pending [facility] All Active Problems (Updated 10/15/24 @ 12:17 by Lynda Pond, SHAY) Abscess (Acute) MRSA (methicillin resistant staph aureus) culture positive (Acute) Vomiting (Acute) Cellulitis (Acute) Cellulitis of back (Acute) Hypokalemia (Acute) Anxiety (Chronic) Gastroesophagitis (Acute) Leukocytosis, unspecified (Acute) Intractable nausea and vomiting (Acute) Cyclic vomiting syndrome (Acute) Panic disorder (Chronic 03/21/16) Chronic back pain greater than 3 months duration (Chronic 12/29/14) ADHD (attention deficit hyperactivity disorder), 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) B12 deficiency (Chronic) Medical History (Updated 10/15/24 @ 12:17 by Lynda Pond, SHAY) Pulmonary embolism Normocytic anemia Primary hypercoagulable state Acute renal insufficiency Orbital cellulitis on left Candidiasis Left lower quadrant pain (01/27/12) Thrombosis of arteries of lower extremity Preseptal cellulitis of left eye Vaginal candidiasis Hematuria Left buttock abscess Other enthesopathies, not elsewhere classified (03/21/16) Neck Asthma (11/08/12) Cyst of fallopian tube Right lower quadrant abdominal pain inflamed/ruptured fallopian tube on the right Nephrolithiasis Migraine headache Hypothyroidism GERD (gastroesophageal reflux disease) Depression Recurrent deep vein thrombosis (DVT) Chronic anticoagulation Intractable vomiting with nausea Factor V Leiden mutation Cellulitis of left leg Surgical History History of arthroscopy of knee Status post LEEP (loop electrosurgical excision procedure) of cervix Status post cholecystectomy 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) S/P appendectomy (12/24/17) Dr Veliz - Car appgm and lap excision of R fallopian tube remnant THUMB RECONSTRUCTION left; in childhood Abdominal hysterectomy (~2009) Cholecystectomy Cervical Conization/LEEP LEEP 2002 [facility] BX 2003 Bilateral salpingectomy with oophorectomy (~2008) Arthroplasty of knee (~1999) left Social History (Updated 10/14/24 @ 07:11 by Jonny Ellison) Smoking/Tobacco Use Status: Never Smoking risk assessment performed?: Yes Alcohol Intake: former Substance use type: does not use Housing: other Current gender identity: female Do you feel safe at home: Yes Do you feel safe in your relationship?: Yes Additional Social history: Lives in [facility]. Rip Ramsey lives close. Time Spent with Patient Time Spent with Patient: 45-69 minutes Time was spent: preparing to see the patient(eg.review tests), obtaining and/or reviewing separately otained hiistory, ordering medications,tests, procedures, referring, communicating with other health family day carer and indepentently interpreting results
[2024-10-16] MEDS: DALBAVANCIN 1,500 MG in DEXTROSE 5%-WATER 325 ML 650 MG IVPB (11:39)
--- NOTE | 2024-10-16 13:22 | CMDISCH_ITS ---
Date of service: 10/16/24 Time of Service: 13:22 LACE Index Scoring Tool Questions: Length of Stay (in days): 2 Was the patient admitted via the E.D.?: Yes E.D. Visits: 1 Answers: Total Score: 6 Risk of Readmission: Low Risk Care Management Discharge Plan Reason for Hospitalization: Cellulitis Discharge Plan: Suzie returned home today with no new services. CM offered her HH RN, which she declined. She stated that her mother will be able to complete her daily dressing changes. She transported home via private vehicle by family. She will follow up with surgical services and her discharge plan of care. CM will continue to follow. Patient/Family Education Needs: Review discharge instructions and limitations, discussion of self care needs including ask me three. SDOH Health Related Social Needs: Health related social needs risk of homeless transpo i nsecurity Health related social needs details no needs Health related social needs details: no needs
== END 2024-10-16 12:45 | disposition home or self-care (01) | DRG 603 ==
LOC: ER 06:20 → MS 08:57
PROVIDERS: Nurse Practitioner Acute Care; Surgery; Admitting Provider Family Medicine; Emergency Provider Student in an Organized Health Care Education/Training Program; Responsible Provider Nurse Practitioner Acute Care; Visit Provider Family Medicine
PROC: 0H96XZX Drainage of Back Skin, External Approach, Diagnostic (ICD-10-PCS; CPT 10060; principal; 2024-10-15 08:35)
DX: L03.312 Cellulitis of back [any part except buttock and flank] (principal); D68.59 Other primary thrombophilia; R11.15 Cyclical vomiting syndrome unrelated to migraine; G43.009 Migraine without aura, not intractable, without status migrainosus; E03.9 Hypothyroidism, unspecified; K21.9 Gastro-esophageal reflux disease without esophagitis; J45.909 Unspecified asthma, uncomplicated; F90.0 Attention-deficit hyperactivity disorder, predominantly inattentive type; F41.0 Panic disorder [episodic paroxysmal anxiety]; G89.29 Other chronic pain; E53.8 Deficiency of other specified B group vitamins; D72.829 Elevated white blood cell count, unspecified; F12.188 Cannabis abuse with other cannabis-induced disorder; B95.62 Methicillin resistant Staphylococcus aureus infection as the cause of diseases classified elsewhere; E87.6 Hypokalemia; Z79.01 Long term (current) use of anticoagulants; Z86.711 Personal history of pulmonary embolism; Z86.718 Personal history of other venous thrombosis and embolism; L02.212 Cutaneous abscess of back [any part, except buttock and flank]
CPT/HCPCS: 10060; 00123; 36415; 76705; 80048; 80053; 80307; 87040; 87077; 93005; 94640; 96361; 96365; 96367; 96375; 99222; 99232; 99285; 80202; 83605; 83735; 84132; 84439; 84443; 85025; 87070; 87075; 87186; 87205; 93010; 94664; 99233; 99239; J0131; J0665; J0666; J0737; J0875; J1650; J1790; J1885; J2003; J2250; J2270; J2405; J2470; J2704; J3372

== ENCOUNTER 2025-01-04 17:04 | Emergency (ER) | payer MEDICARE, MEDICAID, SELFPAY ==
[2025-01-04 17:06] VITALS: BP 164/106; PULSE 88; RESP 16; TEMP 37; O2SAT 98
--- NOTE | 2025-01-04 18:08 | ED.GENADUL_ITS ---
Discharge Plan Disposition Patient Disposition: Home Condition: Stable Discharge Details Clinical Impression: Abscess of forehead Primary Care Provider: Unknown,Unknown ED Provider: Nguyen Jiang Home Meds and New Rx's Prescriptions: New clindamycin HCl 150 mg capsule 300 mg PO TID 7 Days Qty: 42 0RF Rx Instructions: Take 2 capsules three times daily x 7 days ondansetron 4 mg tablet,disintegrating 4 mg PO Q8H PRN (Reason: nausea and vomiting) 4 Days Qty: 9 0RF Rx Instructions: Take 1 tablet up to 3 times daily as needed for nausea and vomiting 20 minutes prior to meals. No Action triamcinolone acetonide 0.1 % cream 1 applic Topical BID PRN (Reason: eczema) Qty: 60 1RF Rx Instructions: Apply to eczema epinephrine [EpiPen 2-Nino] 0.3 mg/0.3 mL auto-injector 0.3 mg IM ONCE Qty: 1 1RF omeprazole 40 mg capsule,delayed release(DR/EC) 40 mg PO DAILY Qty: 90 4RF albuterol sulfate [ProAir HFA] 90 mcg/actuation HFA aerosol inhaler 2 puff Inhalation Q6H PRN MDD 6 puffs Qty: 3 4RF polyethylene glycol 3350 [Miralax] 17 gram Powder In Packet 17 g PO DAILY PRN cholecalciferol (vitamin D3) [Vitamin D3] 50 mcg (2,000 unit) capsule 50 mcg PO DAILY Qty: 30 0RF (DME) inhalational spacing device 1 EACH spacer MISCELLANEOUS levothyroxine 125 mcg tablet 125 mcg PO HS enoxaparin 80 mg/0.8 mL syringe 80 mg subcut Q12H Qty: 60 0RF magnesium 250 mg tablet 250 mg PO DAILY Qty: 7 0RF diphenhydramine HCl [Benadryl Allergy] 25 mg tablet 100 mg PO HS Patient Comments: Take 4 tablet by mouth at bedtime Discharge Instructions Instructions: Skin Abscess, Preventing the Spread of an Infectious Disease Additional Instructions: Please apply the mupirocin ointment 3 times daily for the next 5-7 days. Take the antibiotic as directed with yogurt or probiotic. You may take the nausea medication 20 to 30 minutes before taking the medication or eating or drinking anything. Wash the area with soap and water daily, allow the area to air dry. Wash hands before and after touching the area. Follow up with primary care provider in 3-5 days. Return to ED sooner if any worsening swelling, fever, chills or concerns. Please take Tylenol or Ibuprofen with food every 4-6 hours as needed for pain and swelling. Referrals: Beba Kauffman MD [ [facility] STAFF PHYSICIAN, Medicine] - 1 week Referral Note: ER follow up call for an appointment Clinical Impression: Abscess of forehead HPI General Mode of arrival: ambulatory . Date/Time Provider Initiated Documentation: 01/04/25 17:10 . Limitations to Documentation: no limitations . Information obtained by: patient, RN notes reviewed and old records reviewed . HPI Narrative: 45-year-old female presents to the ER with a chief complaint of 2 days of a possible bug bite to her left anterior forehead. She reports increased swelling, central ulceration and tenderness. Denies any fever or chills. Does have a history of MRSA and was admitted for a abscess with MRSA to her lower back at the end of September. She denies smoking, denies any drugs or alcohol. She does have a history of PE, hypercoagulable state, renal insufficiency, cellulitis, abscesses, GERD hypothyroidism, migraines and factor V Leiden mutation. She does have multiple surgeries also. Related Data Home Medications ?Medication ?Instructions ?Recorded ?Confirmed triamcinolone acetonide 0.1 % 1 applic topical BID PRN eczema 09/05/19 10/14/24 topical cream #60 grams diphenhydramine HCl 25 mg tablet 100 mg PO HS 12/13/19 10/14/24 (Benadryl Allergy) epinephrine 0.3 mg/0.3 mL 0.3 mg (0.3 mL) IM ONCE #1 e a 02/22/20 10/14/24 injection, auto-injector (EpiPen 2-Nino) omeprazole 40 mg capsule,delayed 40 mg PO DAILY GERD # 90 caps 02/22/20 10/14/24 release albuterol sulfate 90 mcg/actuation 2 puff inhalation Q 6H PRN ##3 03/07/20 10/14/24 aerosol inhaler (ProAir HFA) polyethylene glycol 3350 17 gram 17 g PO DAILY PRN 10/14/24 oral powder packet (Miralax) cholecalciferol (vitamin D3) 50 50 mcg PO DAILY #30 ca ps 05/04/21 10/14/24 mcg (2,000 unit) capsule (Vitamin D3) inhalational spacing device 05/17/22 10/14/24 levothyroxine 125 mcg tablet 125 mcg PO HS 05/17/22 enoxaparin 80 mg/0.8 mL 80 mg (0.8 mL) subcut Q12H # 60 05/19/22 10/14/24 subcutaneous syringe SYRGS magnesium 250 mg tablet 250 mg PO DAILY #7 tabs 08/1810/14/24 clindamycin HCl 150 mg capsule 300 mg (2 x 150 mg) PO TID 01/04/25 Cellulitis 7 days #42 caps ondansetron 4 mg disintegrating 4 mg PO Q8H PRN nausea and 01/04/25 tablet vomiting 4 days #9 tabs Previous Rx's ?Medication ?Instructions ?Recorded triamcinolone acetonide 0.1 % 1 applic topical BID PRN eczema 09/05/19 topical cream #60 grams epinephrine 0.3 mg/0.3 mL 0.3 mg (0.3 mL) IM ONCE #1 e a 02/22/20 injection, auto-injector (EpiPen 2-Nino) omeprazole 40 mg capsule,delayed 40 mg PO DAILY GERD # 90 caps 02/22/20 release albuterol sulfate 90 mcg/actuation 2 puff inhalation Q 6H PRN ##3 03/07/20 aerosol inhaler (ProAir HFA) cholecalciferol (vitamin D3) 50 50 mcg PO DAILY #30 ca ps 05/04/21 mcg (2,000 unit) capsule (Vitamin D3) enoxaparin 80 mg/0.8 mL 80 mg (0.8 mL) subcut Q12H # 60 05/19/22 subcutaneous syringe SYRGS magnesium 250 mg tablet 250 mg PO DAILY #7 tabs 08/18 05/12 clindamycin HCl 150 mg capsule 300 mg (2 x 150 mg) PO TID 01/04/25 Cellulitis 7 days #42 caps ondansetron 4 mg disintegrating 4 mg PO Q8H PRN nausea and 01/04/25 tablet vomiting 4 days #9 tabs Allergies Allergy/AdvReac Type Severity Reaction Status Date / Time aripiprazole (From [facility]) Allergy Severe Rash, hives Verified 01/04/25 17:09 doxycycline Allergy Severe Anaphylaxsi Verified 01/04/25 17:09 s levetiracetam (From [facility]) Allergy Severe RASH/HIVES Verified 01/04/25 17:09 sulfamethoxazole Allergy Severe Hives Verified 01/04/25 17:09 venom-honey bee Allergy Severe unknown Verified 01/04/25 17:09 Penicillins Allergy Intermediate Skin Rash Verified 01/04/25 17:09 chlorhexidine Allergy Unknown unknown Verified 01/04/25 17:09 Sulfa (Sulfonamide Allergy Other (See Verified 01/04/25 17:09 Antibiotics) Comment) mold AdvReac Severe Wheezing Verified 01/04/25 17:09 oxycodone (Oxycodone) AdvReac Severe vomits Verified 01/04/25 17:09 paroxetine AdvReac Severe Irritability Verified 01/04/25 17:09 and anger dicloxacillin (Dicloxacillin) AdvReac Mild Nausea, GI Verified 01/04/25 17:09 upset gabapentin AdvReac Mild hives Verified 01/04/25 17:09 prednisone AdvReac Agitation Verified 01/04/25 17:09 trazodone AdvReac shortness Verified 01/04/25 17:09 of breath verapamil (Verapamil) AdvReac Worsening Verified 01/04/25 17:09 migraine nuts Allergy Severe Anaphylaxsi Uncoded 01/04/25 17:09 s General Stated Complaint: InsectBite RYNE: 4 Review of Systems All systems reviewed & are unremarkable except as noted in HPI and below Constitutional Constitutional: Denies body ache(s), Denies chills and Denies fever(s) Integumentary/Breasts Skin/Breast: Reports as per HPI, Reports furuncle, Reports erythema, Reports skin pain, Reports skin swelling and Reports sores Exam [facility] Head images: 2 1. Approximately 3 cm in diameter area of erythema and swelling with a central ulceration. No purulent drainage at this point. She does have surrounding tenderness. Resp Effort & Inspection: normal respiratory effort and able to speak in complete sentences Auscultation: clear to auscultation bilaterally Cardio Rate: regular rate Rhythm: regular rhythm Heart Sounds: S1 normal and S2 normal Course Vital Signs Vital signs: Vital Signs Temperature 37.0 C 01/04/25 17:06 Pulse 88 01/04/25 17:06 Respiratory Rate 16 01/04/25 17:06 Blood Pressure 164/106 H 01/04/25 17:06 Pulse Oximetry 98 01/04/25 17:06 Temperature 37.0 C 01/04/25 17:06 Temperature Source Oral 01/04/25 17:06 Pulse 88 01/04/25 17:06 Respiratory Rate 16 01/04/25 17:06 Blood Pressure 164/106 H 01/04/25 17:06 Blood Pressure Position Sitting 01/04/25 17:06 Pulse Oximetry 98 01/04/25 17:06 Oxygen Delivery Method Room Air 01/04/25 17:06 Oxygen Flow Rate 0 01/04/25 17:06 Pain Level 10 01/04/25 17:06 Medical Decision Making 45-year-old female presents to the ER with a chief complaint of 2 days of a possible bug bite to her left anterior forehead. She reports increased swelling, central ulceration and tenderness. Denies any fever or chills. Does have a history of MRSA and was admitted for a abscess with MRSA to her lower back at the end of September. She denies smoking, denies any drugs or alcohol. She does have a history of PE, hypercoagulable state, renal insufficiency, cellulitis, abscesses, GERD hypothyroidism, migraines and factor V Leiden mutation. She does have multiple surgeries also. Topical mupirocin 2% ointment ordered and clindamycin 450 mg p.o. Zofran 4 mg ODT. No clinical presentation for acute toxicity, no fever or chills normal sinus rhythm nontachycardic. Patient has no significant swelling to her face. Does appear to be localized at this time. Patient discharged with clindamycin prescription, was given mupirocin ointment and a tetanus booster. Instructed to follow-up with PCP within the next 3 to 5 days for recheck. This text was generated using [employer] dictation system, please disregard any oddities of phrase or misspellings. Medical Records Medical records reviewed: Yes I reviewed the patient's medical records. Quality:SDOH Health Related Social Needs: 2 Health related social needs risk of homeless transpo i nsecurity Health related social needs details no needs PFSH All Active Problems (Updated 01/04/25 @ 18:21 by Nguyen Jiang NP) Abscess of forehead (Acute) Abscess (Acute) MRSA (methicillin resistant staph aureus) culture positive (Acute) Cellulitis (Acute) Cellulitis of back (Acute) Anxiety (Chronic) Gastroesophagitis (Acute) Leukocytosis, unspecified (Acute) Intractable nausea and vomiting (Acute) Cyclic vomiting syndrome (Acute) Panic disorder (Chronic 03/21/16) Chronic back pain greater than 3 months duration (Chronic 12/29/14) ADHD (attention deficit hyperactivity disorder), 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) B12 deficiency (Chronic) Medical History Pulmonary embolism Normocytic anemia Primary hypercoagulable state Acute renal insufficiency Orbital cellulitis on left Candidiasis Left lower quadrant pain (01/27/12) Thrombosis of arteries of lower extremity Preseptal cellulitis of left eye Vaginal candidiasis Hematuria Left buttock abscess Other enthesopathies, not elsewhere classified (03/21/16) Neck Asthma (11/08/12) Cyst of fallopian tube Right lower quadrant abdominal pain inflamed/ruptured fallopian tube on the right Nephrolithiasis Migraine headache Hypothyroidism GERD (gastroesophageal reflux disease) Depression Recurrent deep vein thrombosis (DVT) Chronic anticoagulation Intractable vomiting with nausea Factor V Leiden mutation Cellulitis of left leg Surgical History History of arthroscopy of knee Status post LEEP (loop electrosurgical excision procedure) of cervix Status post cholecystectomy 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) S/P appendectomy (12/24/17) Dr Veliz - Car appy and lap excision of R fallopian tube remnant THUMB RECONSTRUCTION left; in childhood Abdominal hysterectomy (~2009) Cholecystectomy Cervical Conization/LEEP LEEP 2003 [facility] BX 2003 Bilateral salpingectomy with oophorectomy (~2008) Arthroplasty of knee (~1999) left Social History Smoking/Tobacco Use Status: Never Smoking risk assessment performed?: Yes Alcohol Intake: former Substance use type: does not use Housing: other Current gender identity: female Do you feel safe at home: Yes Do you feel safe in your relationship?: Yes Additional Social history: Lives in [facility]. Son Braulio lives close.
[2025-01-04] MEDS: Acetaminophen 500 MG TAB PO (18:32)
[2025-01-04] MEDS: Ondansetron O.D.T. 4 MG TABEF PO (18:32)
[2025-01-04] MEDS: Mupirocin 2% Oint. 22 GM TUBE TP (18:32)
[2025-01-04] MEDS: Clindamycin 150 MG CAP 450 MG PO (18:32)
[2025-01-04] MEDS: Diph,Pertuss(Acell),Tet Vac/Pf 0.5 ML SYR IM (18:33)
[2025-01-04 18:49] VITALS: PULSE 88; RESP 16; TEMP 37; O2SAT 98
== END 2025-01-04 18:51 | disposition home or self-care (01) ==
PROVIDERS: Emergency Provider Registered Nurse Emergency
DX: L02.01 Cutaneous abscess of face (principal); E03.9 Hypothyroidism, unspecified; D68.51 Activated protein C resistance; Z86.711 Personal history of pulmonary embolism; Z86.718 Personal history of other venous thrombosis and embolism; Z86.14 Personal history of Methicillin resistant Staphylococcus aureus infection; Z23 Encounter for immunization
CPT/HCPCS: 90471; 90715; 99283

== ENCOUNTER 2025-01-07 16:21 | Emergency (ER) | payer MEDICARE, MEDICAID, SELFPAY ==
[2025-01-07 16:48] VITALS: BP 163/97; PULSE 78; RESP 18; TEMP 36.6; O2SAT 98
--- NOTE | 2025-01-07 17:09 | W.ED.GENAD ---
Discharge Plan Disposition Patient Disposition: Eloped Discharge Details Clinical Impression: Cellulitis Primary Care Provider: None,None ED Provider: Jorge Gorman Home Meds and New Rx's Prescriptions: No Action triamcinolone acetonide 0.1 % cream 1 applic Topical BID PRN (Reason: eczema) Qty: 60 1RF Rx Instructions: Apply to eczema epinephrine [EpiPen 2-Nino] 0.3 mg/0.3 mL auto-injector 0.3 mg IM ONCE Qty: 1 1RF omeprazole 40 mg capsule,delayed release(DR/EC) 40 mg PO DAILY Qty: 90 4RF albuterol sulfate [ProAir HFA] 90 mcg/actuation HFA aerosol inhaler 2 puff Inhalation Q6H PRN MDD 6 puffs Qty: 3 4RF polyethylene glycol 3350 [Miralax] 17 gram Powder In Packet 17 g PO DAILY PRN cholecalciferol (vitamin D3) [Vitamin D3] 50 mcg (2,000 unit) capsule 50 mcg PO DAILY Qty: 30 0RF (DME) inhalational spacing device 1 EACH spacer MISCELLANEOUS levothyroxine 125 mcg tablet 125 mcg PO HS enoxaparin 80 mg/0.8 mL syringe 80 mg subcut Q12H Qty: 60 0RF magnesium 250 mg tablet 250 mg PO DAILY Qty: 7 0RF clindamycin HCl 150 mg capsule 300 mg PO TID 7 Days Qty: 42 0RF Rx Instructions: Take 2 capsules three times daily x 7 days ondansetron 4 mg tablet,disintegrating 4 mg PO Q8H PRN (Reason: nausea and vomiting) 4 Days Qty: 9 0RF Rx Instructions: Take 1 tablet up to 3 times daily as needed for nausea and vomiting 20 minutes prior to meals. diphenhydramine HCl [Benadryl Allergy] 25 mg tablet 100 mg PO HS Patient Comments: Take 4 tablet by mouth at bedtime Discharge Data Discharge Date/Time-TO BE ENTERED AT DEPARTURE: 01/07/25 17:34 HPI General Date/Time Provider Initiated Documentation: 01/07/25 16:57. Limitations to Documentation: no limitations. Information obtained by: patient. HPI Narrative: This is a 45-year-old female who presents with worsening cellulitis on her forehead. Long history of soft tissue infections. She also has cyclic vomiting syndrome among other chronic medical conditions. Seen here few days ago for the cellulitis on her left forehead and given clindamycin. She says she has been able to keep it down. She denies fevers or chills. She has no nausea and vomiting. She denies any other complaints. Related Data Home Medications ?Medication ?Instructions ?Recorded ?Confirmed triamcinolone acetonide 0.1 % 1 applic topical BID PRN eczema 09/05/19 01/07/25 topical cream #60 grams diphenhydramine HCl 25 mg tablet 100 mg PO HS 12/13/19 01/07/25 (Benadryl Allergy) epinephrine 0.3 mg/0.3 mL 0.3 mg (0.3 mL) IM ONCE #1 ea 02/22/20 01/07/25 injection, auto-injector (EpiPen 2-Nino) omeprazole 40 mg capsule,delayed 40 mg PO DAILY GERD #90 caps 02/22/20 01/07/25 release albuterol sulfate 90 mcg/actuation 2 puff inhalation Q6H PRN ##3 03/07/20 01/07/25 aerosol inhaler (ProAir HFA) polyethylene glycol 3350 17 gram 17 g PO DAILY PRN 08/16/20 01/07/25 oral powder packet (Miralax) cholecalciferol (vitamin D3) 50 50 mcg PO DAILY #30 caps 05/04/21 01/07/25 mcg (2,000 unit) capsule (Vitamin D3) inhalational spacing device 05/17/22 01/07/25 levothyroxine 125 mcg tablet 125 mcg PO HS 05/17/22 01/07/25 enoxaparin 80 mg/0.8 mL 80 mg (0.8 mL) subcut Q12H #60 05/19/22 01/07/25 subcutaneous syringe SYRGS magnesium 250 mg tablet 250 mg PO DAILY #7 tabs 08/28/22 01/07/25 clindamycin HCl 150 mg capsule 300 mg (2 x 150 mg) PO TID 01/04/25 01/07/25 Cellulitis 7 days #42 caps ondansetron 4 mg disintegrating 4 mg PO Q8H PRN nausea and 01/04/25 01/07/25 tablet vomiting 4 days #9 tabs Previous Rx's ?Medication ?Instructions ?Recorded triamcinolone acetonide 0.1 % 1 applic topical BID PRN eczema 09/05/19 topical cream #60 grams epinephrine 0.3 mg/0.3 mL 0.3 mg (0.3 mL) IM ONCE #1 ea 02/22/20 injection, auto-injector (EpiPen 2-Nino) omeprazole 40 mg capsule,delayed 40 mg PO DAILY GERD #90 caps 02/22/20 release albuterol sulfate 90 mcg/actuation 2 puff inhalation Q6H PRN ##3 03/07/20 aerosol inhaler (ProAir HFA) cholecalciferol (vitamin D3) 50 50 mcg PO DAILY #30 caps 05/04/21 mcg (2,000 unit) capsule (Vitamin D3) enoxaparin 80 mg/0.8 mL 80 mg (0.8 mL) subcut Q12H #60 05/19/22 subcutaneous syringe SYRGS magnesium 250 mg tablet 250 mg PO DAILY #7 tabs 08/28/22 clindamycin HCl 150 mg capsule 300 mg (2 x 150 mg) PO TID 01/04/25 Cellulitis 7 days #42 caps ondansetron 4 mg disintegrating 4 mg PO Q8H PRN nausea and 01/04/25 tablet vomiting 4 days #9 tabs Allergies Allergy/AdvReac Type Severity Reaction Status Date / Time aripiprazole (From [facility]) Allergy Severe Rash, hives Verified 01/07/25 16:53 doxycycline Allergy Severe Anaphylaxsi Verified 01/07/25 16:53 s levetiracetam (From [facility]) Allergy Severe RASH/HIVES Verified 01/07/25 16:53 sulfamethoxazole Allergy Severe Hives Verified 01/07/25 16:53 venom-honey bee Allergy Severe unknown Verified 01/07/25 16:53 Penicillins Allergy Intermediate Skin Rash Verified 01/07/25 16:53 chlorhexidine Allergy Unknown unknown Verified 01/07/25 16:53 Sulfa (Sulfonamide Allergy Other (See Verified 01/07/25 16:53 Antibiotics) Comment) mold AdvReac Severe Wheezing Verified 01/07/25 16:53 oxycodone (Oxycodone) AdvReac Severe vomits Verified 01/07/25 16:53 paroxetine AdvReac Severe Irritability Verified 01/07/25 16:53 and anger dicloxacillin (Dicloxacillin) AdvReac Mild Nausea, GI Verified 01/07/25 16:53 upset gabapentin AdvReac Mild hives Verified 01/07/25 16:53 prednisone AdvReac Agitation Verified 01/07/25 16:53 trazodone AdvReac shortness Verified 01/07/25 16:53 of breath verapamil (Verapamil) AdvReac Worsening Verified 01/07/25 16:53 migraine nuts Allergy Severe Anaphylaxsi Uncoded 01/07/25 16:53 s General Stated Complaint: InsectBite RYNE: 5 Review of Systems Constitutional Constitutional: Denies chills, Denies fever(s) and Denies headache(s) Eyes Eyes: Denies change in vision ENT Ears, Nose, Mouth, and Throat: Denies headache(s) and Denies odynophagia Cardiovascular Cardiovascular: Denies chest pain and Denies dyspnea Respiratory Respiratory: Denies dyspnea Gastrointestinal Gastrointestinal: Denies abdominal pain, Denies diarrhea, Denies nausea, Denies odynophagia and Denies vomiting Genitourinary Genitourinary: Denies dysuria Musculoskeletal Musculoskeletal: Denies myalgias Integumentary/Breasts Skin/Breast: Reports other (skin infection of left forehead) Neurologic Neurologic: Denies behavioral changes and Denies headache(s) Psychiatric Psychiatric: Denies behavioral changes Endocrine Endocrine: Denies heat intolerance Hematologic/Lymphatic Hematologic/Lymphatic: Denies lymphadenopathy Exam Const General: cooperative Nutritional Appearance: average body habitus Orientation: alert, awake and oriented x3 HENMT Ears: external ears normal Mouth: moist mucous membranes Other: Cellulitis of the left forehead without discrete abscess. Eyes Pupils: PERRL EOM: EOM intact bilaterally and No nystagmus Neck Neck: full ROM and no tracheal deviation Chest Chest: normal inspection of the chest Resp Auscultation: clear to auscultation bilaterally Cardio Rate: regular rate Rhythm: regular rhythm GI Inspection: normal to inspection Palpation: soft, no guarding, not rigid and nontender Back/Spine/Pelvis Back: No no CVA tenderness Thoracic/Lumbar Spine: thoracic and lumbar spine normal to inspection Skin General skin exam: no rashes or lesions noted Neuro General: patient alert, patient awake and patient oriented x3 Cranial Nerves: CN's II-XI intact bilaterally, PERRL and no nystagmus Cognition: normal cognition Motor: muscle tone normal throughout and strength 5/5 throughout Sensory Exam: no sensory deficits noted Extrem General: normal to inspection Course Vital Signs Vital signs: Vital Signs Temperature 36.6 C 01/07/25 16:48 Pulse 78 01/07/25 16:48 Respiratory Rate 18 01/07/25 16:48 Blood Pressure 163/97 H 01/07/25 16:48 Pulse Oximetry 98 01/07/25 16:48 Temperature 36.6 C 01/07/25 16:48 Temperature Source Oral 01/07/25 16:48 Pulse 78 01/07/25 16:48 Respiratory Rate 18 01/07/25 16:48 Blood Pressure 163/97 H 01/07/25 16:48 Blood Pressure Position Sitting 01/07/25 16:48 Pulse Oximetry 98 01/07/25 16:48 Oxygen Delivery Method Room Air 01/07/25 16:48 Oxygen Flow Rate 0 01/07/25 16:48 Medical Decision Making 45-year-old female history of recurrent skin infections and cyclic vomiting syndrome and is presenting with a cellulitis on the forehead. Seen for this prior and given clindamycin. She has been notable to keep it down. Looks like with previous admissions they will actually give her a single dose of dalbavancin due to her long history of intolerance of oral medications and recurrent soft tissue infections. I ordered for patient to get IV fluids and nausea medications as well as labs as well as a dose of this IV antibiotic. Unfortunately the patient eloped from the emergency department. Certainly would be happy to see the patient again if she returns to the emergency department. She did not have any signs of sepsis or fever. No murmur to suggest endocarditis. If she returns to the emergency department would give nausea medications and IV fluids as well as a dose of IV antibiotics. Medical Records Medical records reviewed: Yes I reviewed the patient's medical records. Quality:SDOH Health Related Social Needs: Health related social needs risk of homeless transpo insecurity Health related social needs details no needs PFSH All Active Problems (Updated 01/07/25 @ 19:58 by Jorge Gorman MD) Cellulitis (Acute) Abscess of forehead (Acute) Abscess (Acute) MRSA (methicillin resistant staph aureus) culture positive (Acute) Cellulitis (Acute) Cellulitis of back (Acute) Anxiety (Chronic) Gastroesophagitis (Acute) Leukocytosis, unspecified (Acute) Intractable nausea and vomiting (Acute) Cyclic vomiting syndrome (Acute) Panic disorder (Chronic 03/21/16) Chronic back pain greater than 3 months duration (Chronic 12/29/14) ADHD (attention deficit hyperactivity disorder), 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) B12 deficiency (Chronic) Medical History Pulmonary embolism Normocytic anemia Primary hypercoagulable state Acute renal insufficiency Orbital cellulitis on left Candidiasis Left lower quadrant pain (01/27/12) Thrombosis of arteries of lower extremity Preseptal cellulitis of left eye Vaginal candidiasis Hematuria Left buttock abscess Other enthesopathies, not elsewhere classified (03/21/16) Neck Asthma (11/08/12) Cyst of fallopian tube Right lower quadrant abdominal pain inflamed/ruptured fallopian tube on the right Nephrolithiasis Migraine headache Hypothyroidism GERD (gastroesophageal reflux disease) Depression Recurrent deep vein thrombosis (DVT) Chronic anticoagulation Intractable vomiting with nausea Factor V Leiden mutation Cellulitis of left leg Surgical History History of arthroscopy of knee Status post LEEP (loop electrosurgical excision procedure) of cervix Status post cholecystectomy 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 Additional Social history: Lives in [facility]. Son Braulio lives close.
== END 2025-01-07 17:34 | disposition left against medical advice (07) ==
PROVIDERS: Emergency Provider Student in an Organized Health Care Education/Training Program
DX: L03.211 Cellulitis of face (principal); R11.2 Nausea with vomiting, unspecified; Z53.20 Procedure and treatment not carried out because of patient's decision for unspecified reasons; Z59.811 Housing instability, housed, with risk of homelessness; Z59.82 Transportation insecurity
CPT/HCPCS: 99283; 99282; 80053; 83690; 85652; 85025; 86140